=== PATIENT | female | born 1950 | race Caucasian/White ===

== ENCOUNTER 2023-06-08 10:10 | Outpatient (REF) | payer MEDICARE, OTHER, SELFPAY ==
[2023-06-08 11:12] LABS: Basophils Absolute Auto 0.1 10^3/uL (0.0-0.1); Basophils Percent Auto 0.6 % (0.2-2.0); Eosinophils Absolute Auto 0.1 10^3/uL (0.0-0.7); Eosinophils Percent Auto 1.4 % (0.9-7.0); Hematocrit 38.9 % (36.0-48.0); Hemoglobin 12.3 g/dL (12.0-16.0); Immature Granulocytes Abs Auto 0.06 10^3/uL (0.00-0.03); Immature Granulocytes Pct Auto 0.8 % (0.0-0.5); Lymphocytes Absolute Auto 1.6 10^3/uL (1.2-3.8); Lymphocytes Percent Auto 20.8 % (20.5-60.0); Mean Corpuscular HGB Conc 31.6 g/dL (29.9-35.2); Mean Corpuscular Hemoglobin 29.9 pg (26.7-34.0); Mean Corpuscular Volume 94.6 fL (81.0-99.0); Mean Platelet Volume 9.5 fL (9.5-13.5); Monocytes Absolute Auto 0.6 10^3/uL (0.3-0.8); Monocytes Percent Auto 7.1 % (1.7-12.0); Neutrophils Absolute Auto 5.4 10^3/uL (1.4-6.5); Neutrophils Percent Auto 69.3 % (43.0-75.0); Platelet Count 239 10^3/uL (150-450); Red Blood Count 4.11 10^6/uL (4.20-5.40); Red Cell Distribution Width 12.8 % (11.0-15.0); White Blood Count 7.7 10^3/uL (4.0-11.0)
[2023-06-08 11:49] LABS: Alanine Aminotransferase 26 U/L (14-59); Albumin Globulin Ratio 0.6; Albumin Level 2.7 g/dL (3.4-5.0); Alkaline Phosphatase 76 U/L (46-116); Anion Gap 14.3; Aspartate Amino Transferase 23 U/L (15-37); Bilirubin Direct 0.1 mg/dL (0.0-0.2); Bilirubin Total 0.6 mg/dL (0.2-1.0); Calcium 8.8 mg/dL (8.5-10.1); Carbon Dioxide 28.6 mmol/L (21.0-32.0); Chloride 106 mmol/L (98-107); Estimated GFR (African America 45 (>=60); Estimated GFR (Non-African Ame 37 (>=60); Globulin 4.3 g/dL; Glucose 198 mg/dL (74-106); Potassium 3.9 mmol/L (3.5-5.1); Sodium 145 mmol/L (136-145)
== END 2023-06-08 10:11 | disposition home or self-care (01) ==
LOC: LAB 10:10
PROVIDERS: PCP Family Medicine; Visit Provider Family Medicine
DX: N17.9 Acute kidney failure, unspecified (principal)
CPT/HCPCS: 36415; 80053; 82248; 85025; 87150

== ENCOUNTER 2024-02-25 22:00 | Observation (INO) | payer MEDICARE, OTHER, SELFPAY ==
[2024-02-25] VITALS (13 sets, daily range): BP systolic 158; BP diastolic 79; PULSE 87–94; TEMP 37.3; O2SAT 94–95; BMI 32.9
--- OUTSIDE RECORDS SUMMARY | 2024-02-25 22:08 | XMS_ITS ---
Patient Summarization (C-CDA 2.1 CCD) Created on: February 25, 2024 SHAHANA GRACE : 1950 Sex: Female Author Organization Sample organization Care Team Providers Care Chief Contract Officer Name Role Phone KANWAL MANN Unavailable Unavailable ALBERTINA ARNDT Unavailable Unavailable UNKNOWN, PROVIDER Unavailable Unavailable HAIR, ALBERTINA Unavailable Unavailable Hair, Albertina R Unavailable Unavailable Unavailable ANIVAL, DR STERLING Reyes Admitting Unavailmasood ARNDT, DR ENG Primary Care Unavailable ANIVAL, DR STERLING Reyes Attending Unavailmasood e ASIF .WENDY Attending Unavailable ASIF .WENDY Admitting Unavailable CARIN, DR FRANSISCA Mcdermott Consulting Unavailable HAIR, DR ENG Primary Care Unavailable WENDY DEL REAL Consulting Unavailable KANWAL THIBODEAUX Attending Unavailable KANWAL THIBODEAUX Admitting Unavailable HAIR, DR ENG Primary Care Unavailable KANWAL THIBODEAUX Consulting Unavailable ALBERTINA ARNDT Primary Care Physician [phone] Francie Mann Unavailable Unavailable Albertina Arndt Primary Care Provider Albertina Arndt Unavailable Albertina Arndt Primary Care Unavailable Anival, Dr. Sterling Oleary Attending Unava iljany Florian, Dr. Sterling Oleary Referring Unava ilAlbertina Case Primary Care Unavailable Anival, Dr. Sterling Oleary Attending Unava ilable Anival, Dr. Sterling Oleary Referring Unava ilSo Blankenship Attending Provider DO Albertina Arndt Primary Care Provider DO Albertina Arndt Attending Provider Albertina Arndt Primary Care Provider [phone] ALBERTINA ARNDT Primary Care Unavailable Francie Esteban Unavailable Unavailable Garrett Palmer Unavailable Albertina Arndt DO Primary Care Provider [phone] So Ram Attending Provider Hair DO Eng Primary Care Provider DO Tal Florian Attending Provider [phone] Hair Albertina Primary Care Unavailable Tal Florian Admitting Unavailable Tal Florian Attending Unavailable Hair, Albertina Primary Care Unavailable Albertina Arndt Attending Unavailable Hair, Albertina Admitting Unavailable DENT, Glynn R Admitting Unavailable DENT, Glynn R Attending Unavailable DENT, Glynn R Referring Unavailable COOK, Orestes P Attending Unavailable COOK, Orestes P Referring Unavailable COOK, Orestes P Admitting Unavailable COOK, Orestes P Admitting Unavailable COOK, Orestes P Attending Unavailable Lue, Wendy Bay Attending Unavailable Lue, Wendy Bay Attending Unavailable Lue, Wendy Bay Referring Unavailable COOK, Orestes P Attending Unavailable DENT, Glynn R Attending Unavailable COOK, Orestes P Attending Unavailable COOK, Orestes P Admitting Unavailable COOK, Orestes P Attending Unavailable COOK, Orestes P Admitting Unavailable Paola Woods Admitting Unavailable Jhonny Barrett Attending Unavailable Estela, Garrett S Consulting Unavailable Juan Palmer Garrett S Consulting Unavailable Blank, Garrett S Consulting Unavailable Blank, Garrett S Consulting Unavailable Blank, Garrett S Consulting Unavailable Blank, Garrett S Consulting Unavailable Blank, Garrett S Consulting Unavailable Blank, Garrett S Consulting Unavailable Blank, Garrett S Consulting Unavailable Blank, Garrett S Consulting Unavailable JEREMIAH Alajerod Admitting Unavailable Ck RILEY Attending Unavailable Rose Alvarado Attending Unavailable COOK, Orestes P Attending Unavailable COOK, Orestes P Referring Unavailable COOK, Orestes P Admitting Unavailable LEONEL Corona Attending Unavailab Glynn Wilson Admitting Unavailable Glynn ALARCON Attending Unavailable AGNES, Glynn Tipton Admitting Unavailable DENT, Glynn Mcdermott Consulting Unavailable MD Glynn DENT R Consulting Unavailable DNET, Glynn R Consulting Unavailable DENT, Glynn R Consulting Unavailable DENT, Glynn R Consulting Unavailable DENT, Glynn R Consulting Unavailable DENT, Glynn R Consulting Unavailable DENT, Glynn R Consulting Unavailable DENT, Glynn R Consulting Unavailable DENT, Glynn R Consulting Unavailable DENT, Glynn R Consulting Unavailable DENT, Glynn R Consulting Unavailable DENT, Glynn R Consulting Unavailable Glynn DENT Consulting Unavailable Backensto, Crystal L Unavailable Unavailable Glynn ALARCON Admitting Unavailable Jhonny Barrett Attending Unavailable MD Glynn DENT Consulting Unavailable Glynn DENT Attending Unavailable Allergies Allergy Classification Reported Allergen(s) Allergy Type Date of Onset Reaction(s) Facility (20 sources) Aspirin; Translations: [aspirin] Drug Allergy 3 Eye swelling (finding), Anaphylaxis -[facility] [place] 600 DO Work Phone: Comment on above: pt states she is abl e to take 81 mg of aspirin with aspirin allergy (1 source) Aspirin Drug Allergy [facility] Repository (4 sources) No Latwex Allergy [Other] Propensity to adverse reactions 3 [facility] (9 sources) Aspirin Drug Allergy swollen throat [employer] [facility] [employer] Other (1 source) OTHER; Translations: [OTHER] Propensity to adverse reactions (disorder) 3 [facility] Other [place] Repository (1 source) Aspirin Drug Allergy 1 [facility] Repository Encounters Encounter Date Encounter Type Care Provider Facility Start: 03-13-2024 ambulatory Glynn Atwood ty:CD:[id number] Start: 02-19-2024 End: 02-23-2024 Evaluation and management of inpatient [place]Neris Corona [place] [place] Start: 02-19-2024 Emergency department patient visit Rose Alvarado [place] [place] Start: 02-19-2024 End: 02-23-2024 Evaluation and management of inpatient Glynn ALARCON [facility] Start: 08-19-2023 ambulatory Wendy Gold Facility:[facility] Start: 08-05-2023 End: 08-05-2023 Admission to same day surgery center Orestes JACQUES [facility] Start: 08-05-2023 End: 08-05-2023 ambulatory Orestes JACQUES [place] [place] Start: 08-04-2023 End: 08-04-2023 ambulatory Albertinamal Arndt Facility:[facility] Start: 08-04-2023 End: 08-04-2023 ambulatory DO Albertinamal Lindquists Work Phone: [facility] Work Phone: Start: 08-04-2023 End: 08-04-2023 Patient encounter procedure DO Albertina Arndt Work Phone: [facility] [place] Work Phone: Start: 07-28-2023 End: 07-28-2023 Office outpatient visit 15 minutes Sterling Florian DO Work Phone: [facility] Comment on above: 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; S/P CABG x 4; Type 2 diabetes mellitus with other specified complication, with long-term current use of insulin ([facility]); Mixed hyperlipidemia; Primary hypertension; History of PA (myocardial infarction) Start: 07-23-2023 End: 07-23-2023 ambulatory Orestes Mary Kay JACQUES [place] [place] Start: 07-23-2023 End: 07-23-2023 Patient encounter procedure Orestes Mary Kay JACQUES [facility] Start: 07-15-2023 End: 07-15-2023 ambulatory Orestes Mary Kay GEORGIE Facility:CD:[id number] Start: 07-02-2023 End: 07-02-2023 ambulatory Orestes JACQUES [place] [place] Start: 06-30-2023 Telephone encounter Albertina Hair [facility] [place] Start: 06-30-2023 End: 06-30-2023 ambulatory Orestes JACQUES [employer] Other Start: 06-30-2023 End: 06-30-2023 Patient encounter procedure Orestes Mary Kay JACQUES [facility] Start: 06-21-2023 End: 06-21-2023 ambulatory Garrett Palmer Other [employer] [facility] [employer] Other Start: 06-21-2023 Telephone encounter Garrett Palmer [facility] Start: 06-10-2023 End: 06-10-2023 ambulatory Orestes JACQUES [place] [place] Start: 06-10-2023 End: 06-10-2023 Patient encounter procedure Orestes Mary Kay JACQUES [facility] Start: 06-08-2023 End: 06-08-2023 ambulatory Albertina Arndt Other [employer] Other Start: 06-08-2023 Telephone encounter Albertina Arndt [facility] Start: 05-27-2023 End: 06-02-2023 Evaluation and management of inpatient Paola Woods [place] [place] Start: 05-26-2023 End: 06-02-2023 [facility] Start: 05-25-2023 End: 05-25-2023 ambulatory Glynn DENT [place] [place] Start: 05-25-2023 End: 05-25-2023 Patient encounter procedure Glynn DENT [facility] Start: 05-24-2023 ambulatory Wendy Gold Facility:[facility] Start: 05-17-2023 Telephone encounter Albertina Arndt [facility] Start: 05-17-2023 End: 05-17-2023 ambulatory Glynn DENT [facility] [employer] Other Start: 05-17-2023 End: 05-17-2023 Patient encounter procedure Glynn DENT [facility] Start: 05-09-2023 End: 05-11-2023 ambulatory Margareth DANIELS [place] [place] Start: 05-09-2023 End: 05-11-2023 Observation Margareth DANIELS [facility] Start: 03-29-2023 Documentation procedure Mammog elvia Coordinator [facility] Start: 03-29-2023 Letter encounter Mammography Coordinator [facility] Start: 03-26-2023 End: 03-26-2023 ambulatory ALBERTINA ARNDT [facility] Other Start: 03-26-2023 Telephone encounter Albertina Arndt [facility] Start: 03-26-2023 End: 03-26-2023 Subsequent hospital visit by physician Screen/Diag Mammo [facility] 3 Work Phone: [facility]amm[facility] Comment on above: Z12.31 ENCOUNTER SCR EENING MAMMOGRAM FOR BREAST CANCER Start: 11-24-2022 Telephone encounter Albertina Arndt [facility] Start: 11-24-2022 End: 11-24-2022 ambulatory DO Albertina Lindquisteric Work Phone: [facility] Work Phone: Start: 11-24-2022 End: 11-24-2022 Patient encounter procedure DO Albertinamal Arndt Work Phone: [facility] [place] Work Phone: Start: 11-17-2022 End: 11-17-2022 Patient encounter procedure Wendy Gold [facility] Start: 11-13-2022 End: 11-14-2022 Emergency department patient visit Blaire Myers [facility] Start: 10-29-2022 End: 10-29-2022 Patient encounter procedure Wendy Gold [facility] Start: 10-14-2022 End: 10-14-2022 Patient encounter procedure Wendy oGld [facility] Start: 08-19-2022 End: 08-19-2022 Patient encounter procedure Wendy Gold [facility] Start: 07-29-2022 Office outpatient vi sit 15 minutes [facility]ndt [facility] Work Phone: Start: 07-29-2022 ambulatory Albertina Arndt Facili ty: Start: 07-13-2022 End: 07-13-2022 Patient encounter procedure [facility] Start: 07-06-2022 End: 07-06-2022 Patient encounter procedure Orestes JAQCUES [facility] Start: 06-17-2022 End: 06-19-2022 Evaluation and management of inpatient Orestes JACQUES [facility] Start: 06-08-2022 End: 06-08-2022 Patient encounter procedure Wendy Gold [facility] Start: 04-02-2022 Rx Renewal [facility]ndt [facility] Work Phone: Start: 02-02-2022 End: 02-02-2022 Patient encounter procedure Feroz Cotton [facility] Start: 01-28-2022 Documentation procedure Mammog elvia Coordinator [facility] Start: 01-28-2022 Letter encounter Mammography Coordinator [facility] Start: 01-28-2022 End: 01-28-2022 Subsequent hospital visit by physician Screen Mammo [facility] Mamm[facility] Start: 12-26-2021 Rx Renewal Albertina [facility]ndt [facility] DO Work Phone: Start: 12-17-2021 End: 12-17-2021 ambulatory Albertina Arndt Other [facility] [employer] Other Start: 12-17-2021 Telephone encounter Albertina Arndt [facility] [place] Start: 12-10-2021 End: 12-10-2021 Patient encounter procedure Feorz GreeneSharyn Cotton [facility] Start: 11-26-2021 End: 11-26-2021 Patient encounter procedure Wendy Gold [facility] Start: 11-24-2021 End: 11-24-2021 Patient encounter procedure Feroz GreeneSharyn Cotton [facility] Start: 11-17-2021 End: 11-17-2021 Patient encounter procedure Wendy Gold [facility] Start: 10-15-2021 Telephone encounter Albertina talbert Work Phone: [facility] 250 DO Work Phone: Start: 10-07-2021 End: 10-08-2021 ambulatory WENDY GOLD . Facility: Start: 10-06-2021 End: 10-06-2021 ambulatory Albertina Arndt Other [facility] [employer] Other Start: 10-06-2021 Telephone encounter Alberitna PELAYO [facility] [place] Start: 09-19-2021 ambulatory Albertina Arndt Facili ty: Start: 09-08-2021 Rx Renewal Albertina Lindquists Work Phone: [facility] 250 DO Work Phone: Start: 08-20-2021 End: 08-21-2021 ambulatory KANWAL THIBODEAUX Facility:H1 Start: 08-08-[address] STERLING FLORIAN Fa cility:[facility]1 Start: 07-22-2021 EPV, Provider: Kanwal Shah, Status: Pen, Time: 12:30 PM Albertina Lindquists Work Phone: [facility] 250 DO Work Phone: Start: 07-22-2021 Office outpatient vi sit 15 minutes Albertina R Kuns Work Phone: [facility] 600 DO Work Phone: Start: 07-21-2021 Chart Update Albertina R Kuns Work Phone: [facility] 250 DO Work Phone: Start: 07-16-2021 NURSEVST, Provider: SILVIANO HOUSTON RN [facility] 1,[id number], Status: Pen, Time: 1:30 PM Albertina R Kuns Work Phone: [facility] 250 DO Work Phone: Start: 07-14-2021 Chart Update Albertina R Kuns Work Phone: [facility] 250 DO Work Phone: Start: 07-10-2021 Office outpatient vi sit 25 minutes Albertina R Kuns Work Phone: [facility] 250 DO Work Phone: Start: 07-10-2021 Patient encounter procedure Albertina Arndt Work Phone: -[facility] 600 DO Work Phone: Start: 06-12-2021 Telephone encounter Albertina Arndt [facility] [place] Start: 07-07-2017 Ambulatory PROVIDER UNKNOWN Facili ty:[id number] Start: 04-22-2017 Ambulatory KANWAL MANN Facility: [id number] Start: 01-01-2004 Evaluation and manag ement of inpatient DO Albertina Arndt Work Phone: [facility] Work Phone: Medical Equipment Procedure Code Equipment Code Equipment Origin al Text Equipment Identifier Dates FDA Start: 10-01-2021 {[id number] FDA Start: 10-21-2021 FDA Start: 10-01-2021 FDA Start: 10-01-2021 FDA Start: 10-01-2021 FDA Start: 10-01-2021 CYSTOSCOPY RETROGRADE STENT INSERTION Unknown 10/01/21 Unknown Unknown FDA Start: 10-01-2021 CYSTOSCOPY RETROGRADE STENT INSERTION Unknown 10/01/21 Unknown Unknown FDA Start: 10-01-2021 CYSTOSCOPY RETROGRADE STENT INSERTION Orestes JACQUES MD 06/17/22 Unknown Ureter R FDA Start: 06-17-2022 CYSTOSCOPY RETROGRADE STENT INSERTION Unknown 10/01/21 Unknown Unknown FDA Start: 10-01-2021 CYSTOSCOPY RETROGRADE STENT INSERTION Orestes JACQUES MD 06/17/22 Unknown Ureter R FDA Start: 06-17-2022 CYSTOSCOPY RETROGRADE STENT INSERTION Unknown 10/01/21 Unknown Unknown FDA Start: 10-01-2021 CYSTOSCOPY RETROGRADE STENT INSERTION Orestes JACQUES MD 06/17/22 Unknown Ureter R FDA Start: 06-17-2022 CYSTOSCOPY RETROGRADE STENT INSERTION Unknown 10/01/21 Unknown Unknown FDA Start: 10-01-2021 CYSTOSCOPY RETROGRADE STENT INSERTION Orestes JACQUES MD 06/17/22 Unknown Ureter R FDA Start: 06-17-2022 CYSTOSCOPY RETROGRADE STENT INSERTION Unknown 10/01/21 Unknown Unknown FDA Start: 10-01-2021 CYSTOSCOPY RETROGRADE STENT INSERTION Orestes JACQUES MD 06/17/22 Unknown Ureter R FDA Start: 06-17-2022 CYSTOSCOPY RETROGRADE STENT INSERTION Unknown 10/01/21 Unknown Unknown FDA Start: 10-01-2021 CYSTOSCOPY RETROGRADE STENT INSERTION Orestes JACQUES MD 06/17/22 Unknown Ureter R FDA Start: 06-17-2022 CYSTOSCOPY RETROGRADE STENT INSERTION Unknown 10/01/21 Unknown Unknown FDA Start: 10-01-2021 CYSTOSCOPY RETROGRADE STENT INSERTION Orestes JCAQUES MD 06/17/22 Unknown Ureter R FDA Start: 06-17-2022 CYSTOSCOPY RETROGRADE STENT INSERTION Unknown 10/01/21 Unknown Unknown FDA Start: 10-01-2021 CYSTOSCOPY RETROGRADE STENT INSERTION Orestes JACQUES MD 06/17/22 Unknown Ureter R FDA Start: 06-17-2022 CYSTOSCOPY RETROGRADE STENT INSERTION Unknown 10/01/21 Unknown Unknown FDA Start: 10-01-2021 CYSTOSCOPY RETROGRADE STENT INSERTION Orestes JACQUES MD 06/17/22 Unknown Ureter R FDA Start: 06-17-2022 {[id number] FDA Start: 05-09-2023 End: 05-27-2023 CYSTOSCOPY RETROGRADE STENT INSERTION Unknown 10/01/21 Unknown Unknown FDA Start: 10-01-2021 CYSTOSCOPY RETROGRADE STENT INSERTION Orestes JACQUES MD 06/17/22 Unknown Ureter R FDA Start: 06-17-2022 CYSTOSCOPY RETROGRADE STENT INSERTION Unknown 10/01/21 Unknown Unknown FDA Start: 10-01-2021 CYSTOSCOPY RETROGRADE STENT INSERTION Orestes JACQUES MD 06/17/22 Unknown Ureter R FDA Start: 06-17-2022 CYSTOSCOPY RETROGRADE STENT INSERTION Unknown 10/01/21 Unknown Unknown FDA Start: 10-01-2021 CYSTOSCOPY RETROGRADE STENT INSERTION Orestes JACQUES MD 06/17/22 Unknown Ureter R FDA Start: 06-17-2022 CYSTOSCOPY RETROGRADE STENT INSERTION Unknown 10/01/21 Unknown Unknown FDA Start: 10-01-2021 CYSTOSCOPY RETROGRADE STENT INSERTION Orestes JACQUES MD 06/17/22 Unknown Ureter R FDA Start: 06-17-2022 CYSTOSCOPY RETROGRADE STENT INSERTION Unknown 10/01/21 Unknown Unknown FDA Start: 10-01-2021 CYSTOSCOPY RETROGRADE STENT INSERTION Orestes JACQUES MD 06/17/22 Unknown Ureter R FDA Start: 06-17-2022 CYSTOSCOPY RETROGRADE STENT INSERTION Unknown 10/01/21 Unknown Unknown FDA Start: 10-01-2021 CYSTOSCOPY RETROGRADE STENT INSERTION Orestes JACQUES MD 06/17/22 Unknown Ureter R FDA Start: 06-17-2022 CYSTOSCOPY RETROGRADE STENT INSERTION Unknown 10/01/21 Unknown Unknown FDA Start: 10-01-2021 CYSTOSCOPY RETROGRADE STENT INSERTION Orestes JACQUES MD 06/17/22 Unknown Ureter R FDA Start: 06-17-2022 CYSTOSCOPY RETROGRADE STENT INSERTION Unknown 10/01/21 Unknown Unknown FDA Start: 10-01-2021 CYSTOSCOPY RETROGRADE STENT INSERTION Orestes JACQUES MD 06/17/22 Unknown Ureter R FDA Start: 06-17-2022 CYSTOSCOPY STENT INSERTION Glynn DENT MD 02/20/24 Unknown Ureter R FDA Start: 02-20-2024 Immunizations Immunization Date Immunization Notes Care Provider Fa cility 11-13-2022 tetanus toxoid, redu lakshmi diphtheria toxoid, and acellular pertussis vaccine, adsorbed Blaire Brownen [facility] Comment on above: Result Comment: LEFT DELTOID 09-25-2021 SARS-CoV-2 (COVID-19 ) mRNA-1273 vaccine Wendy Gold [facility] 05-07-2021 pneumococcal conjuga te vaccine, 13 valent Albertina Kuns Other [facility] 11-28-2020 COVID-19 Moderna Albertina Kuns Other [facility] Comment on above: Result Comment: 2021: [id number] 10-31-2020 COVID-19 Moderna Albertina Kuns Other [facility] Comment on above: Result Comment: 2021: [id number] 12-05-2018 zoster vaccine recombinant Albertina Kuns Other [facility] 12-05-2018 zoster vaccine, unspecified formulation Sterling Florian DO Work Phone: [facility] Work Phone: 08-08-2018 zoster vaccine recombinant Albertina Arndt Other [facility] 08-08-2018 zoster vaccine, unspecified formulation Sterling Florian DO Work Phone: [facility] Work Phone: 08-30-2003 influenza virus vaccine, unspecified formulation Albertina Arndt Work Phone: [place] [address] DO Work Phone: Medications Current Medications Medication Drug Class(es) Dates Sig (Normalized) Sig (Original) atorvastatin 40 mg oral tablet (20 sources) HMG-CoA Reductase Inhibitor Start: 11-26-2021 atorvastatin Oral, Refills(s) 0 Start Date: 11/26/21 Status: Ordered Start: 07-22-2021 End: 07-27-2024 take 1 tablet by mouth once daily atorvastatin 40 mg Tab 40 mg = 1 tab(s), Oral, Daily, Refills(s) 0 Start Date: 06/17/22 Status: Ordered Start: 10-29-2018 take 1 tablet by luba th once daily at bedtime atorvastatin (LIPITOR) 80 mg tablet Take 80 mg by mouth daily at bedtime. 0 10/29/2018 Active Comment on above: Take 80 mg by mouth daily at bedtime. cephalexin 500 mg oral capsule (4 sources) Cephalosporin Antibacterial Start: 05-11-2023 End: 05-16-2023 take 1 capsule by mouth three times daily Keflex 500 mg Cap 500 mg = 1 cap(s), Oral, TID, X 5 day(s), # 15 cap(s), Refills(s) 0, [facility]acy: [id number], 158, cm, 05/09/23 8:54:00 EDT, Height/Length Dosing, 90.4, kg, 05/09/23 8:54:00 EDT, Weight Dosing Start Date: 05/11/23 Stop Date: 05/16/23 Status: Ordered Start: 11-14-2022 End: 11-19-2022 take 1 capsule by mouth three times daily Keflex 500 mg Cap 500 mg = 1 cap(s), Oral, TID, X 5 day(s), # 15 cap(s), Refills(s) 0, [facility]acy: [id number], 157, cm, 11/13/22 23:40:00 EDT, Height/Length Dosing, 83.2, kg, 11/13/22 23:40:00 EDT, Weight Dosing Start Date: 11/14/22 Stop Date: 11/19/22 Status: Ordered Start: 10-22-2021 take 1 capsule by mo [facility] once daily Keflex 500 mg Cap 500 mg = 1 cap(s), Oral, q12hr, take 1 cap the evening prior to scheduled procedure, take 2nd capsule the day of scheduled procedure, # 2 cap(s), Refills(s) 0, Pharmacy: [facility]/pharmacy #[id number], 161.9, cm, 10/21/21 6:32:00 EST, Height/Length Dosing, 80.5,... Start Date: 10/22/21 Status: Ordered ciprofloxacin 500 mg oral tablet (5 sources) Quinolone Antimicrobial Start: 02-23-2024 End: 03-01-2024 take 1 tablet by mouth twice daily Cipro 500 mg Tab 500 mg = 1 tab(s), Oral, BID, X 7 day(s), # 14 tab(s), Refills(s) 0, Pharmacy: [id number], 160.5, cm, 02/19/24 13:38:00 EDT, Height/Length Dosing, 84.3, kg, 02/19/24 13:38:00 EDT, Weight Dosing Start Date: 02/23/24 Stop Date: 03/01/24 Status: Ordered Start: 08-05-2023 take 1 tablet by [facility] twice daily Cipro 500 mg Tab 500 mg = 1 tab(s), Oral, BID, # 10 tab(s), Refills(s) 0, Pharmacy: [id number], 160.5, cm, 08/05/23 13:21:00 EST, Height/Length Dosing, 83, kg, 08/05/23 13:21:00 EST, Weight Dosing Start Date: 08/05/23 Status: Ordered Start: 07-02-2022 Cipro 500 mg T ab See Instructions, Take 1 tab day prior to procedure and 1 tab day of procdure - afterwards, # 2 tab(s), Refills(s) 0, Pharmacy: [facility]/pharmacy #[id number], 163, cm, 07/02/22 9:34:00 EDT, Height/Length Dosing, 85, kg, 06/17/22 13:37:00 EDT, Weight Dosing Start Date: 07/02/22 Status: Ordered Start: 10-17-2021 take 1 tablet by luba th every twenty-four hours ciprofloxacin 500 mg Tab 500 mg = 1 tab(s), Oral, q24hr, Refills(s) 0, Infection or prophylaxis for antibiotics Start Date: 10/17/21 Status: Ordered clopidogrel 75 mg oral tablet (20 sources) [id number] Platelet Inhibitor Start: 04-16-2022 End: 07-27-2024 Plavix 75 mg Tab See Instructions, Wednesday-, Refills(s) 0, Blood Thinner Start Date: 06/17/22 Status: Ordered Start: 06-12-2021 Plavix 75 mg T ab See Instructions, Wednesday-Wednesday, Refills(s) 0 Start Date: 06/17/22 Status: Ordered take 1 tablet by luba th every week Plavix 75 MG 1 tablet Orally 5 days per week Active Comment on above: Take by mouth. estradiol 0.1 mg/ml vaginal cream (3 sources) Estrogen Start: 02-09-20 estradiol 0.1 mg/g Vag Crm See Instructions, 42.5 gm, Refill(s) 1, Apply pea-sized amount to urethra/vaginal 3x/week at night for 1 month, then 2x/week thereafter, [facility], 158, cm, 02/08/23 12:39:00 EDT, Height/Length Dosing, 82, kg, 02/08/23 12:39:00 EDT, Weight Dosing Start Date: 02/08/23 Status: Ordered 100 ml fluconazole 2 mg/ml injection (2 sources) Azole Antifungal Start: 06-02-20 End: 06-23-20 take 200 mg intravenously once daily fluconazole 200 mg/100 mL-NS IVPB 200 mg = 100 mL, IV Piggyback, Daily, X 21 day(s), # 21 EA, Refills(s) 0 Start Date: 06/02/23 Stop Date: 06/23/23 Status: Ordered glipiZIDE 5 mg oral tablet (7 sources) Sulfonylurea Start: 06-19-20 End: 07-28-20 take 1 tablet by mouth once daily glipiZIDE 5 mg Tab 5 mg = 1 tab(s), Oral, Daily, # 30 tab(s), Refills(s) 0, Pharmacy: [facility]/pharmacy #[id number], 157, cm, 06/17/22 13:37:00 EDT, Height/Length Dosing, 85, kg, 06/17/22 13:37:00 EDT, Weight Dosing Start Date: 06/19/22 Status: Ordered insulin aspart, human 100 unt/ml injectable solution (1 source) Insulin Analog End: 07-28-20 insulin aspart (NovoLOG U-100 Insulin aspart) 100 unit/mL injection Inject under the skin 3 times a day before meals. Take as directed per insulin instructions. 0 07/28/2023 Discontinued (Entered in Error) 3 ml insulin glargine 100 unt/ml pen injector (10 sources) Insulin Analog Start: 05-09-20 Basaglar KwikPen 100 units/mL subcutaneous solution 40 unit(s), SubCutaneous, qAM, Refills(s) 0, Blood glucose Start Date: 05/09/23 Status: Ordered Start: 05-09-2023 Basaglar KwikP en 100 units/mL subcutaneous solution Refills(s) 0 Start Date: 05/09/23 Status: Ordered insulin glargine (Basaglar KwikPen U-100 Insulin) 100 unit/mL (3 mL) pen Inject 40 Units under the skin once daily at bedtime. Take as directed per insulin instructions. 0 Active lisinopril 5 mg oral tablet (20 sources) Angiotensin Converting Enzyme Inhibitor Start: 07-28-2023 End: 07-27-2024 take 1 tablet by mouth twice daily lisinopril 5 mg tablet Indications: Primary hypertension Take 1 tablet (5 mg) by mouth 2 times a day. 180 tablet 3 07/28/2023 07/27/2024 Active Start: 05-11-2023 End: 05-11-2023 lisinopril 5 mg Tab 5 mg = 1 tab(s), Tab, Oral, Start date 05/11/23 9:00:00 EDT, 05/10/23 11:11:00 EDT Start Date: 05/11/23 Stop Date: 05/11/23 Status: Completed Start: 06-12-2021 End: 07-28-2023 take 1 tablet by mouth twice daily lisinopril 5 mg Tab 5 mg = 1 tab(s), Oral, BID, # 120 tab(s), Refills(s) 0, Pharmacy: [facility]/pharmacy #[id number], 157.5, cm, 06/10/21 10:56:00 EDT, Height/Length Dosing, 79.4, kg, 06/10/21 10:56:00 EDT, Weight Dosing Start Date: 06/12/21 Status: Ordered Start: 11-28-2018 lisinopril 2.5 mg tablet Liver panel (6 sources) Start: 06-09-2023 Liver panel Li rivka panel, Print Requisition, Supply Start Date: 06/09/23 Status: Ordered meclizine hydrochloride 12.5 mg oral tablet (11 sources) Antiemetic Start: 11-14-2022 take 1 tablet by mouth three times daily as needed for dizziness meclizine 12.5 mg Tab 12.5 mg = 1 tab(s), Oral, TID, PRN for dizziness, # 15 tab(s), Refills(s) 0, Pharmacy: [facility] #72, 157, cm, 11/13/22 23:40:00 EDT, Height/Length Dosing, 83.2, kg, 11/13/22 23:40:00 EDT, Weight Dosing Start Date: 11/14/22 Status: Ordered metFORMIN hydrochloride 500 mg oral tablet (20 sources) Biguanide Start: 10-29-2022 take 1 tablet by mouth twice daily metformin 500 mg Tab 500 mg = 1 tab(s), Oral, BID, Blood glucose Start Date: 10/29/22 Status: Ordered Start: 10-01-2021 take 2 tablets by mo uth twice daily metformin 500 mg ER Tab 1,000 mg = 2 tab(s), Oral, BID, High blood sugar Start Date: 2/2/22 Status: Ordered Start: 10-29-2018 take 1 tablet by ulba twice daily metFORMIN (GLUCOPHAGE) 1,000 mg tablet Take 1,000 mg by mouth twice daily. 0 10/29/2018 Active Comment on above: Take 1,000 mg by luba twice daily. 24 hr mirabegron 25 mg extended release oral tablet (3 sources) beta3-Adrenergic Agonist Start: 02-09-20 23 take 1 tablet by mouth once daily Myrbetriq 25 mg oral tablet, extended release 25 mg = 1 tab(s), Oral, Daily, # 30 tab(s), Refills(s) 6, Pharmacy: [facility], 158, cm, 02/08/23 12:39:00 EDT, Height/Length Dosing, 82, kg, 02/08/23 12:39:00 EDT, Weight Dosing Start Date: 02/08/23 Status: Ordered NIFEdipine 30 mg oral tablet (1 source) Dihydropyridine Calcium Channel Lesly Start: 02-23-20 take 2 tablets by mouth once daily NIFEdipine 30 mg ER Tab 60 mg = 2 tab(s), Oral, Daily, # 60 tab(s), Refills(s) 5, Pharmacy: [facility], 160.5, cm, 02/19/24 13:38:00 EDT, Height/Length Dosing, 84.3, kg, 02/19/24 13:38:00 EDT, Weight Dosing Start Date: 02/23/24 Status: Ordered nitrofurantoin, macrocrystals 25 mg / nitrofurantoin, monohydrate 75 mg oral capsule (6 sources) Nitrofuran Antibacterial Start: 11-27-19 take 1 capsule by mouth every twelve hours Macrobid 100 MG 1 capsule with food Orally BID for 10 days Oct, Active oxybutynin chloride 5 mg oral tablet (6 sources) Cholinergic Muscarinic Antagonist Start: 06-17-20 End: 08-16-20 take 1 tablet by mouth twice daily oxybutynin 5 mg Tab 5 mg = 1 tab(s), Oral, BID, X 30 day(s), # 60 tab(s), Refills(s) 1, Pharmacy: [facility]/pharmacy #[id number], 157, cm, 06/17/22 13:37:00 EDT, Height/Length Dosing, 85, kg, 10/19/22 13:37:00 EDT, Weight Dosing Start Date: 06/17/22 Stop Date: 08/16/22 Status: Ordered take 1 tablet by mouth twice jane ly Oxybutynin Chloride ER 5 MG Oral Tablet Extended Release 24 Hour Take 1 tablet twice daily Quantity: 0 Refills: 0 Ordered: 09-Oct-2021 DO Active potassium bicarbonate 25 meq effervescent oral tablet (11 sources) Start: 02-08-2023 Klor-Con/EF 25 mEq oral tablet, effervescent 25 mEq = 1 tab(s), Oral, Daily, dissolve in 4 ounces of water, # 30 tab(s), Refills(s) 10, Pharmacy: [facility], 158, cm, 02/08/23 12:39:00 EDT, Height/Length Dosing, 82, kg, 02/08/23 12:39:00 EDT, Weight Dosing Start Date: 02/08/23 Status: Ordered Start: 10-30-2022 End: 01-28-2023 take 1 tablet by mouth twice daily Effer-K 20 mEq oral tablet, effervescent 20 mEq = 1 tab(s), Oral, BID, X 30 day(s), # 60 tab(s), Refills(s) 2, Pharmacy: [facility], 163, cm, 07/13/22 13:17:00 EST, Height/Length Dosing, 82, kg, 07/13/22 13:17:00 EST, Weight Dosing Start Date: 10/30/22 Stop Date: 01/28/23 Status: Ordered potassium citrate 10 meq extended release oral tablet (2 sources) Start: 08-19-2022 potassium CITRATE 10 mEq ER Tab 10 mEq, 1 tab(s), Oral, BID, 90 tab(s), Refill(s) 6, [facility]/pharmacy #[id number], 163, cm, 07/13/22 13:17:00 EST, Height/Length Dosing, 82, kg, 07/13/22 13:17:00 EST, Weight Dosing Start Date: 08/19/22 Status: Ordered 1 mg dose 1.5 ml semaglutide 1.34 mg/ml pen injector (11 sources) Start: 10-08-2021 inject 1 mg by subcutaneous injection every week Ozempic 2 mg/1.5 mL (1 mg dose) subcutaneous solution 1 mg, SubCutaneous, qWeek, Refill(s) 0, High blood sugar Start Date: 10/08/21 Status: Ordered solifenacin succinate 10 mg oral tablet (13 sources) Cholinergic Muscarinic Antagonist Start: 05-09-2023 take 1 tablet by mouth once daily Vesicare 10 mg Tab 10 mg = 1 tab(s), Oral, Daily, # 14 tab(s), Refills(s) 0, Pharmacy: [id number], 158, cm, 05/09/23 8:54:00 EDT, Height/Length Dosing, 90.4, kg, 05/09/23 8:54:00 EDT, Weight Dosing Start Date: 05/09/23 Status: Ordered Start: 06-17-2022 take 1 tablet by luba once daily solifenacin 5 mg Tab 5 mg = 1 tab(s), Oral, Daily, Refills(s) 0 Start Date: 06/17/22 Status: Ordered Start: 10-08-2021 take 1 tablet by luba once daily Vesicare 5 mg Tab 5 mg = 1 tab(s), Oral, Daily, # 30 tab(s), Refills(s) 11, Pharmacy: [facility]/pharmacy #[id number], 157.5, cm, 10/01/21 9:21:00 EST, Height/Length Dosing, 82, kg, 10/08/21 8:27:00 EST, Weight Dosing Start Date: 10/08/21 Status: Ordered Completed/Discontinued Medications Medication Drug Class(es) Dates Sig (Normalized) Sig (Original) acetaminophen 325 mg oral tablet (11 sources) take 2 tablets by mouth every six hours as needed acetaminophen (TYLENOL) 325 mg tablet Take 650 mg by mouth every 6 hours as needed for Pain. 0 Active take 1-2 tablets by mouth every six hours as needed Tylenol 325 MG Oral Tablet TAKE 1 TO 2 TABLETS EVERY 6 HOURS NEEDED. Quantity: 0 Refills: 0 Ordered: 04-Jun-2017 DO Active Comment on above: Take 650 mg by mouth every 6 hours as needed for Pain. acetaminophen 325 mg / HYDROcodone bitartrate 5 mg oral tablet (4 sources) Opioid Agonist take 1 tablet by mouth every four to six hours as needed for pain HYDROcodone-Acetami nophen 5-325 MG Oral Tablet TAKE 1 TABLET EVERY 4 TO 6 HOURS NEEDED FOR PAIN. Quantity: 0 Refills: 0 Ordered: 09-Oct-2021 DO Active CENTRUM TABLET (4 sources) Start: 003 CENTRUM TABLET clotrimazole 10 mg/ml topical cream (4 sources) Azole Antifungal Start: 016 clotrimazole (LOTRIMIN, CLOTRIM) 1 % cream Indications: Tinea cruris Apply 1 application to affected area twice daily. 15 g 0 04/02/2016 Active Comment on above: Apply 1 application to affected area twice daily. furosemide 40 mg oral tablet (18 sources) Loop Diuretic Start: furosemide (LASIX) 40 mg tablet Take by mouth. 0 06/12/2021 Active Comment on above: Take by mouth. heparin flush 100 units/mL Soln 10 mL (2 sources) Start: End: take 10 mL intravenously every twelve hours heparin flush 100 units/mL Soln 10 mL 300 unit(s), IV, q12hr for 21 day(s), 10 mL, Refill(s) 0, With intermittent or nonuse Start Date: 06/02/23 Stop Date: 06/23/23 Status: Ordered Insulin Lispro (11 sources) Insulin Analog Start: End: Insulin Lispro Sliding Scale 0-10 unit(s), Injection-Insulin, SubCutaneous, Start date 02/22/24 4:30:00 PM EDT Start Date: 02/22/24 Stop Date: 02/22/24 Status: Completed Start: 02-22-2024 End: 02-22-2024 Insulin Lispro Sliding Scale 0-10 unit(s), Injection-Insulin, SubCutaneous, Start date 02/22/24 11:30:00 AM EDT Start Date: 02/22/24 Stop Date: 02/22/24 Status: Completed Start: 02-22-2024 End: 02-22-2024 Insulin Lispro Sliding Scale 0-10 unit(s), Injection-Insulin, SubCutaneous, Start date 02/22/24 7:30:00 AM EDT Start Date: 02/22/24 Stop Date: 02/22/24 Status: Completed Start: 05-30-2023 End: 05-30-2023 Insulin Lispro Sliding Scale 0-10 Unit(s), Injection-Insulin, SubCutaneous, Start date 05/30/23 4:30:00 PM EDT Start Date: 05/30/23 Stop Date: 05/30/23 Status: Completed Start: 05-30-2023 End: 05-30-2023 Insulin Lispro Sliding Scale 0-10 Unit(s), Injection-Insulin, SubCutaneous, Start date 05/30/23 11:30:00 AM EDT Start Date: 05/30/23 Stop Date: 05/30/23 Status: Completed Start: 05-11-2023 End: 05-11-2023 Insulin Lispro Sliding Scale 0-10 Unit(s), Injection-Insulin, SubCutaneous, Start date 05/11/23 7:30:00 EDT Start Date: 05/11/23 Stop Date: 05/11/23 Status: Completed Start: 05-10-2023 End: 05-10-2023 Insulin Lispro Sliding Scale 0-10 Unit(s), Injection-Insulin, SubCutaneous, Start date 05/10/23 11:30:00 EDT Start Date: 05/10/23 Stop Date: 05/10/23 Status: Completed Start: 05-10-2023 End: 05-10-2023 Insulin Lispro Sliding Scale 0-10 Unit(s), Injection-Insulin, SubCutaneous, Start date 05/10/23 7:30:00 EDT Start Date: 05/10/23 Stop Date: 05/10/23 Status: Completed Start: 06-19-2022 End: 06-19-2022 Insulin Lispro Sliding Scale 0-10 Units, Injection-Insulin, SubCutaneous, Start date 06/19/22 7:30:00 EDT Start Date: 06/19/22 Stop Date: 06/19/22 Status: Completed Start: 06-18-2022 End: 06-18-2022 Insulin Lispro Sliding Scale 0-10 Units, Injection-Insulin, SubCutaneous, Start date 06/18/22 21:00:00 EDT Start Date: 06/18/22 Stop Date: 06/18/22 Status: Completed Start: 06-18-2022 End: 06-18-2022 Insulin Lispro Sliding Scale 0-10 Units, Injection-Insulin, SubCutaneous, Start date 06/18/22 11:30:00 EDT Start Date: 06/18/22 Stop Date: 06/18/22 Status: Completed liraglutide (20 sources) GLP-1 Receptor Agonist Victoza 1 8 MG/3ML as directed Subcutaneous qhs Active liraglutide (OUMOU TOZA 3-LISA SUBCUTANEOUS) Inject subcutaneously. 0 Active Victoza 18 MG/3M L Subcutaneous Solution INJECT SUBCUTANEOUSLY DIRECTED. Quantity: 0 Refills: 0 Ordered: 10-Jul-2021 DO Active Comment on above: Inject subcutaneousl y. metoprolol tartrate 50 mg oral tablet (20 sources) beta-Adrenergic Lesly Start: 02-22-2024 End: 02-22-2024 Metoprolol tartrate 50 mg Tab 50 mg = 1 tab(s), Tab, Oral, Start date 02/22/24 9:00:00 PM EDT, 02/19/24 21:43:00 EDT Start Date: 02/22/24 Stop Date: 02/22/24 Status: Completed Start: 06-02-2023 End: 06-02-2023 Metoprolol tartrate 50 mg Ta b 50 mg = 1 tab(s), Tab, Oral, Start date 06/02/23 9:00:00 AM EDT, 05/27/23 11:22:00 EDT Start Date: 06/02/23 Stop Date: 06/02/23 Status: Completed Start: 06-01-2023 End: 06-01-2023 Metoprolol tartrate 50 mg Ta b 50 mg = 1 tab(s), Tab, Oral, Start date 06/01/23 9:00:00 PM EDT, 05/27/23 11:22:00 EDT Start Date: 06/01/23 Stop Date: 06/01/23 Status: Completed Start: 06-01-2023 End: 06-01-2023 Metoprolol tartrate 50 mg Ta b 50 mg = 1 tab(s), Tab, Oral, Start date 06/01/23 9:00:00 AM EDT, 05/27/23 11:22:00 EDT Start Date: 06/01/23 Stop Date: 06/01/23 Status: Completed Start: 05-11-2023 End: 09-12-2023 Metoprolol tartrate 50 mg Ta b 50 mg = 1 tab(s), Tab, Oral, Start date 05/11/23 9:00:00 EDT, 05/09/23 17:58:00 EDT Start Date: 05/11/23 Stop Date: 05/11/23 Status: Completed Start: 05-10-2023 End: 05-10-2023 Metoprolol tartrate 50 mg Ta b 50 mg = 1 tab(s), Tab, Oral, Start date 05/10/23 21:00:00 EDT, 05/09/23 17:58:00 EDT Start Date: 05/10/23 Stop Date: 05/10/23 Status: Completed Start: 05-10-2023 End: 05-10-2023 Metoprolol tartrate 50 mg Ta b 50 mg = 1 tab(s), Tab, Oral, Start date 05/10/23 9:00:00 EDT, 05/09/23 17:58:00 EDT Start Date: 05/10/23 Stop Date: 05/10/23 Status: Completed Start: 06-12-2021 End: 06-19-2022 take 1 tablet by mouth twice daily Metoprolol tartrate 50 mg Tab 50 mg = 1 tab(s), Oral, BID, # 120 tab(s), Refills(s) 0, Pharmacy: [facility]/pharmacy #[id number], 157.5, cm, 06/10/21 10:56:00 EDT, Height/Length Dosing, 79.4, kg, 06/10/21 10:56:00 EDT, Weight Dosing Start Date: 06/12/21 Status: Ordered Start: 10-05-2018 End: 07-27-2024 take 1 tablet by mouth every twelve hours metoprolol tartrate (Lopressor) 50 mg tablet Indications: Primary hypertension Take 1 tablet by mouth every 12 hours. 180 tablet 3 07/28/2023 07/27/2024 Active take 1 tablet by luba th every twelve hours Metoprolol Tartrate 50 MG Oral Tablet TAKE 1 TABLET Every twelve hours Quantity: 0 Refills: 0 Ordered: 04-Jun-2017 DO Active Comment on above: Take 50 mg by mouth q 12 HR. Multivitamin Adult - (9 sources) Multivitamin Rudolph lt - Orally Not-Taking nitroglycerin 0.4 mg sublingual tablet (13 sources) Nitrate Vasodilator nitroglyceri n sublingual (NITROQUICK) 0.4 mg SL tablet Dissolve under the tongue. 0 Active Nitrostat 0.4 MG 1 tab under the tongue Q 5 min prn Sublingual as directed Active Comment on above: Dissolve under the t ongue. NS Flush 10 mL (6 sources) Start: 06-01-2023 NS Flush 10 mL See Instructions, 60 EA, Refill(s) 0, 10 mL IV Pushprior to and after administration of fluconazole and as needed Start Date: 06/01/23 Status: Ordered potassium chloride 20 meq extended release oral tablet (18 sources) Start: 06-12-2021 potassium chloride 20 mEq TbER take 1 tablet by luba every twenty-four hours Klor-Con M20 20 MEQ 1 tablet with food Orally Once a day Active potassium citrate compoundin g powder (4 sources) Start: 02-08-2023 End: 06-08-2023 potassium citrate compoundin g powder 30 mEq, Oral, BID, 30mEq potassium citrate powder orally BID, Dissolve in 8 oz water, X 30 day(s), # 60 EA, Refills(s) 3, Pharmacy: [facility], 158, cm, 02/08/23 12:39:00 EDT, Height/Length Dosing, 82, kg, 02/08/23 12:39:00 EDT, Weight Dosing Start Date: 02/08/23 Stop Date: 06/08/23 Status: Ordered Start: 02-08-2023 End: 06-08-2023 potassium citrate compoundin g powder 30 mEq, Oral, BID, 30mEq potassium citrate powder orally BID, Dissolve in 8 oz water, X 30 day(s), # 60 EA, Refills(s) 3, Pharmacy: [facility], 158, cm, 02/08/23 12:39:00 EDT, Height/Length Dosing, 82, kg, 02/08/23 12:39:00 EDT, Weigh... Start Date: 02/08/23 Stop Date: 06/08/23 Status: Ordered Start: 10-29-2022 potassium citr ate compounding powder See Instructions, 15mEq twice a day, dissolve with water/juice, take with food or after meal, # 60 packet(s), Refills(s) 6, Pharmacy: [facility] #[facility], 163, cm, 07/13/22 13:17:00 EST, Height/Length Dosing, 82, kg, 07/13/22 13:17:00 EST, Bella... Start Date: 10/29/22 Status: Ordered Payers Date Payer Category Payer Unknown 2019 Unknown MMO MMO MEDICARE SUPPLEMENT [id number] 2019-Present [phone] [address] [place] [address] Indemnity [id number] 2016 Medicare MEDICARE RAILROA D MEDICARE RAILROAD PB ONLY [id number] 2016-Present [phone] [address] [address] [place] [address] Medicare [id number]. [id number] 2016 Medicare [id number]. [id number] 1959 Medicare [id number] 1959 Self-pay 1959 Unknown [id number] 1951 Unknown [id number] 2.16.840.1.952149.3.579.2.593 1951 Unknown [id number] 2.16.840.1.994909.3.579.2.593 1951 Unknown [id number] 2.16.840.1.146298.3.579.2.356 1951 Unknown [id number] 2.16.840.1.946700.3.579.2.356 1951 Unknown [id number] 2.16.840.1.340750.3.579.2.727 1951 Unknown [id number] 2.16.840.1.752471.3.579.2.727 1951 Unknown [id number] 2.16.840.1.780187.3.579.2. 1951 Unknown [id number] 2.16.840.1.853974.3.579.2. 1951 Unknown [id number] 2.16.840.1.957197.3.579.2. 1951 Unknown [id number] 2.16.840.1.546886.3.579.2. 1951 Unknown [id number] 2.16.840.1.216845.3.579.2 1951 Unknown [id number] 2.16.840.1.520266.3.579.2 1951 Unknown [id number] 2.16.840.1.739733.3.579.2 1951 Unknown [id number] 2.16.840.1.550246.3.579.2 1951 Unknown [id number] 2.16.840.1.183057.3.579.2 1951 Unknown [id number] 2.16.840.1.465045.3.579.2 1951 Unknown [id number] 2.16.840.1.837719.3.579.2 1951 Unknown [id number] 2.16.840.1.036459.3.579.2. 1951 Unknown [id number] 2.16.840.1.287528.3.579.2 1951 Unknown [id number] 2.16.840.1.734009.3.579.2 1951 Unknown [id number] 2.16.840.1.496045.3.579.2.727 1951 Unknown [id number] 2.16.840.1.874917.3.579.2.727 1951 Unknown [id number] 2.16.840.1.117091.3.579.2.727 1951 Unknown [id number] 2.16.840.1.376871.3.579.2.727 1950 Unknown [id number] 2.16.840.1.010416.3.579.2.727 Medicare [id number] Unknown [id number] 2.16.840.1.067828.3.579.2.[address] [facility] [id number] Unknown [id number] 2.16.840.1.773176.3.579.2.531 Unknown [id number] 2.16.840.1.592310.3.579.2.531 Plan of Treatment Date Care Activity Detail Author Start: 11-13-2032 DTaP/Tdap/Td Vaccines (2 - Td or Tdap) DTaP/Tdap/Td Vaccines (2 - Td or Tdap) [facility] Start: 04-07-2025 DIABETES SCREEN DIABETES SCREEN [facility] Start: 04-07-2025 Diabetes Screening Diabetes Screening [facility] Start: 03-26-2024 Mammography [facility] Start: 03-26-2024 Screening for malignant neoplasm of breast Mammogram [facility] Start: 07-28-2023 End: 07-28-2024 Alanine aminotransferase [Enzymatic activity/volume] in Serum or Plasma by With P-5'-P Alanine Aminotransferase Lab Routine Mixed hyperlipidemia Expected: 07/28/2023 (Approximate), Expires: 07/28/2024 [facility] Service Area Work Phone: Comment on above: Expected: 07/28/2023 (Approximate), Expi res: 07/28/2024 Start: 07-28-2023 End: 07-28-2024 Aspartate aminotransferase [Enzymatic activity/volume] in Serum or Plasma by With P-5'-P Aspartate Aminotransferase Lab Routine Mixed hyperlipidemia Expected: 07/28/2023 (Approximate), Expires: 07/28/2024 [facility] Work Phone: Comment on above: Expected: 07/28/2023 (Approximate), Expi res: 07/28/2024 Start: 07-28-2023 End: 07-28-2024 Lipid 1996 panel - Serum or Plasma Lipid Panel Lab Routine Mixed hyperlipidemia Expected: 07/28/2023 (Approximate), Expires: 07/28/2024 [facility] Work Phone: Comment on above: Expected: 07/28/2023 (Approximate), Expi res: 07/28/2024 Start: 07-28-2023 FUV, Provider: Sterling Florian, Status: Pen, Time: 10:40 AM FUV, Provider: Sterling Florian, Status: Pen, Time: 10:40 AM [facility] 250 DO Work Phone: Start: 04-30-2023 Covid-19 Vaccine ( season) Covid-19 Vaccine ( season) [facility] Start: 04-30-2023 Influenza vaccination [facility] Start: 01-28-2023 Mammography MAMMOGRAM [facility] Start: 11-24-2022 Bacteria identified in Urine by Culture Urine Culture [facility] Start: 08-30-2022 ADVANCE DIRECTIVE DISCUSSION ADVANCE DIRECTIVE DISCUSSION [facility] Start: 08-30-2022 DEPRESSION ASSESSMENT DEPRESSION ASSESSMENT [facility] Start: 08-09-2022 Glaucoma screening Diabetes: Retinopathy Screening [facility] Start: 06-11-[address] [facility] Start: 05-12-2022 FUV, Provider: Sterling Florian, Status: Pen, Time: 10:15 AM [facility]UV, Provider: Sterling Florian, Status: Pen, Time: 10:15 AM [facility] 600 DO Work Phone: Start: 04-30-2022 Influenza vaccination INFLUENZA (Season Ended) [facility] Start: 01-23-2022 COVID-19 VACCINE (4 - Booster for Moderna series) COVID-19 VACCINE (4 - Booster for Moderna series) [facility] Start: 11-20-2021 COVID-19 VACCINE (4 - Moderna series) COVID-19 VACCINE (4 - Moderna series) [facility] Start: 08-30-2021 ADVANCE DIRECTIVE DISCUSSION ADVANCE DIRECTIVE DISCUSSION [facility] Start: 07-22-2021 EPV, Provider: Kanwal Shah, Status: Pen, Time: 12:30 PM EPV, Provider: Kanwal Shah, Status: Pen, Time: 12:30 PM [facility] DO Work Phone: Start: 07-16-2021 NURSEVST, Provider: SILVIANO HOUSTON RN [facility] 1,[id number], Status: Pen, Time: 1:30 PM NURSEVST, Provider: SILVIANO HOUSTON RN [facility] 1,[id number], Status: Pen, Time: 1:30 PM [facility] 600 DO Work Phone: Start: 07-02-2021 Pneumococcal Vaccine: 65+ Years (2 - PPSV23 or PCV20) Pneumococcal Vaccine: 65+ Years (2 - PPSV23 or PCV20) [facility] Start: 02-12-2016 BONE DENSITY BONE DENSITY [facility] Start: 02-12-2016 Bone Density Screening Bone Density Screening [facility] Start: 02-12-2016 Pneumococcal Vaccine: 65+ (1 - PCV) Pneumococcal Vaccine: 65+ (1 - PCV) [facility] Start: 02-12-2016 PNEUMOCOCCAL: 65+ (1 - PCV) PNEUMOCOCCAL: 65+ (1 - PCV) [facility] Start: 08-14-2012 Colonoscopy COLONOSCOPY [facility] Start: 08-14-2012 COLORECTAL CANCER SCREENING COLORECTAL CANCER SCREENING [facility] Start: 12-14-2002 DIABETES SCREEN DIABETES SCREEN [facility] Start: 2001 SHINGRIX VACCINE (1 of 2) SHINGRIX VACCINE (1 of 2) [facility] Start: 2001 Zoster Vaccines (1 of 2) Zoster Vaccines (1 of 2) [facility] Start: 02-12-1996 COLOGUARD (FIT-DNA) COLOGUARD (FIT-DNA) [facility] Start: 02-12-[address] COLONOGRAPHY [facility] Start: 02-12-1996 FECAL OCCULT BLOOD FECAL OCCULT BLOOD [facility] Start: 02-12-1996 Lipid 1996 panel - Serum or Plasma Lipid Screening [facility] Start: 02-12-1996 LIPID SCREEN LIPID SCREEN [facility] Start: 02-12-1996 SIGMOIDOSCOPY SIGMOIDOSCOPY [facility] Start: 1970 Urine microalbumin profile [facility] Start: 1970 Urine screening for protein Diabetes: Urine Protein Screening [facility] Start: 1969 HEPATITIS C SCREENING HEPATITIS C SCREENING [facility] Start: 1969 Hepatitis C screening Hepatitis C Screening [facility] Start: 1963 Adult depression screening assessment DEPRESSION SCREENING [facility] Start: 1961 Diabetic foot examination Diabetes: Foot Exam [facility] Start: 1951 Creatinine measurement Creatinine Level [facility] Start: 1951 Hemoglobin A1c measurement Diabetes: Hemoglobin A1C [facility] Start: 1951 Lip[address] Lipid Panel [facility] Start: 1951 Medicare Annual Wellness Visit Medicare Annual Wellness Visit (AWV) [facility] Start: 1950 Potassium measurement Potassium Level [facility] Start: 1950 Screening for malignant neoplasm of colon [facility] Start: 1950 Screening for osteoporosis Bone Density Scan [facility] Start: 1950 Thyroid stimulating hormone measurement TSH Level 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] Onset: 2 Chronic Biliary tract disease (1 source) Cholelithiasis without obstruction; Translations: [Calculus of gallbladder without cholecystitis without obstruction] Onset: 4 Episodic Calculus of urinary tract (20 sources) Calculus of kidney; Translations: [Kidney stone] Onset: 2 Episodic Cardiac dysrhythmias (13 sources) Ventricular premature beats; Translations: [Other premature beats] Onset: 3 06-29-2023 Chronic Chronic kidney disease (1 source) Chronic kidney disease stage 3; Translations: [Chronic kidney disease, stage 3 unspecified] Onset: 3 Chronic Coagulation and hemorrhagic disorders (1 source) Thrombocytopenic disorder; Translations: [Thrombocytopenia, unspecified] Onset: 4 Chronic Complication of device; implant or graft (14 sources) Arteriosclerosis of coronary artery bypass graft; Translations: [Coronary atherosclerosis of unspecified bypass graft] Onset: 3 07-28-2023 Chronic Conditions associated with dizziness or vertigo (1 source) Benign paroxysmal positional vertigo; Translations: [Benign paroxysmal vertigo, unspecified ear] Onset: 3 Episodic Congestive heart failure; nonhypertensive (20 sources) Congestive heart failure; Translations: [Congestive heart failure, unspecified] Onset: 3 06-29-2023 Chronic Coronary atherosclerosis and other heart disease (20 sources) Atherosclerotic heart disease of [place] coronary artery without angina pectoris; Translations: [Coronary arteriosclerosis] Onset: 7 Chronic Coronary atherosclerosis and other heart disease (9 sources) 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; Translations: [Presence of aortocoronary bypass graft] Episodic Coronary atherosclerosis and other heart disease (1 source) Coronary atherosclerosis and other heart disease Onset: 7 Deficiency and other anemia (13 sources) Anemia; Translations: [Anemia, unspecified] Onset: 3 06-29-2023 Episodic Diabetes mellitus with complications (2 sources) Type 2 diabetes mellitus; Translations: [Type 2 diabetes mellitus with other specified complication] Onset: 4 07-28-2023 Chronic Diabetes mellitus without complication (20 sources) Diabetes mellitus; Translations: [Diabetes mellitus without mention of complication, type II or unspecified type, not stated as uncontrolled] Onset: 2 10-01-2021 Chronic Diabetes mellitus without complication (9 sources) Glycosuria 02-08-2023 Episodic Diabetes mellitus without complication (1 source) Diabetes mellitus without complication Onset: 7 Diseases of white blood cells (2 sources) Leukocytosis; Translations: [Elevated white blood cell count, unspecified] Onset: 2 Chronic Disorders of lipid metabolism (20 sources) Hyperlipidemia; Translations: [Other and unspecified hyperlipidemia] Onset: 2 Chronic Essential hypertension (20 sources) Hypertensive disorder; Translations: [Unspecified essential hypertension] Onset: 2 10-01-2021 Chronic Essential hypertension (1 source) Essential hypertension Onset: 7 Fluid and electrolyte disorders (20 sources) Hypovolemia; Translations: [Volume depletion, unspecified] Onset: 1 Resolved: 2 Episodic Genitourinary symptoms and ill-defined conditions (9 sources) Urge incontinence of urine 02-08-2023 Chronic Hypertension with complications and secondary hypertension (1 source) Hypertensive urgency ; Translations: [Hypertensive urgency] Onset: 4 Chronic Mycoses (1 source) Mycosis; Translations: [Unspecified mycosis] Onset: 3 Episodic Nausea and vomiting (1 source) Nausea and vomiting; Translations: [Nausea with vomiting, unspecified] Onset: 4 Episodic Other aftercare (20 sources) Long-term current use of anticoagulant; Translations: [care home (current) use of anticoagulants] Onset: 2 10-08-2021 Episodic Other aftercare (1 source) Long-term current use of drug therapy; Translations: [Other penitentiary (current) drug therapy] Onset: 3 Episodic Other connective tissue disease (12 sources) Muscle weakness of limb; Translations: [Other musculoskeletal symptoms referable to limbs] Episodic Other connective tissue disease (1 source) Other symptoms and signs involving the musculoskeletal system; Translations: [Other musculoskeletal symptoms referable to limbs] Onset: 3 06-29-2023 Episodic Other diseases of bladder and urethra (14 sources) Spasm of bladder 10-08-2021 Chronic Other diseases of bladder and urethra (4 sources) Disorder of bladder; Translations: [Other specified disorders of bladder] Onset: 2 Chronic Other diseases of kidney and ureters (1 source) Hydroureter; Translations: [Hydroureter] Onset: 3 Episodic Other diseases of kidney and ureters (1 source) Hydronephrosis; Translations: [Unspecified hydronephrosis] Onset: 3 Episodic Other diseases of kidney and ureters (1 source) Urinary tract obstruction; Translations: [Hydronephrosis with renal and ureteral calculous obstruction] Onset: 4 Episodic Other gastrointestinal disorders (1 source) Constipation, unspecified; Translations: [Constipation, unspecified] Onset: 3 Episodic Other hematologic conditions (1 source) Abnormal finding on evaluation procedure; Translations: [Other specified abnormalities of plasma proteins] Onset: 4 Episodic Other injuries and conditions due to external causes (1 source) Injury of head; Translations: [Unspecified injury of head, initial encounter] Onset: 3 Episodic Other nutritional; endocrine; and metabolic disorders (20 sources) Obesity; Translations: [Obesity, unspecified] Onset: 2 Chronic Other nutritional; endocrine; and metabolic disorders (5 sources) Body mass index 30+ - obesity; Translations: [Body Mass Index 36.0-36.9, adult] Chronic Other nutritional; endocrine; and metabolic disorders (9 sources) Obese class I; Translations: [Obesity, unspecified] Chronic Other nutritional; endocrine; and metabolic disorders (10 sources) Obesity caused by energy imbalance; Translations: [Other obesity due to excess calories] Onset: 3 05-10-2023 Chronic Other screening for suspected conditions (not mental disorders or infectious disease) (2 sources) Encounter for screening mammogram for malignant neoplasm of breast Onset: 2 Resolved: 2 Episodic Other skin disorders (9 sources) Other seborrheic keratosis; Translations: [Seborrheic keratosis] Episodic Other upper respiratory infections (18 sources) Pain in throat; Translations: [Acute pharyngitis, unspecified] Episodic Residual codes; unclassified (2 sources) Procedure carried out on subject; Translations: [Encounter for prophylactic measures, unspecified] Onset: 2 Episodic Residual codes; unclassified (1 source) Patient encounter status; Translations: [Other specified health status] Onset: 3 Episodic Superficial injury; contusion (1 source) Abrasion of scalp; Translations: [Abrasion of scalp, initial encounter] Onset: 3 Episodic Thyroid disorders (20 sources) Hypothyroidism; Translations: [Unspecified acquired hypothyroidism] Onset: 3 06-29-2023 Chronic Unclassified (1 source) Ischemic cardiomyopathy / I25.5(ICD-9) Onset: 7 Unclassified (1 source) Old myocardial infarction / I25.2(ICD-9) Onset: 7 Unclassified (2 sources) Athscl heart disease of [place] coronary artery w/o ang pctrs / I25.10(ICD-9) Onset: 7 Unclassified (1 source) Obesity, unspecified / E66.9(ICD-9) Onset: 7 Unclassified (1 source) Body mass index (BMI) 19.9 or less, adult / Z68.1(ICD-9) Onset: 7 Unclassified (1 source) Coronary angioplasty status / Z98.61(ICD-9) Onset: 7 Unclassified (1 source) Presence of aortocoronary bypass graft / Z95.1(ICD-9) Onset: 7 Urinary tract infections (20 sources) Urinary tract infectious disease; Translations: [Urinary tract infection, site not specified] Onset: 2 Episodic Urinary tract infections (1 source) Urinary tract infections; Translations: [Urinary tract infection, site not specified] Onset: 3 Past or Other Problems Problem Classification Problem Date Documented Date Episodic/Chronic Genitourinary symptoms and ill-defined conditions (13 sources) Increased frequency of urination; Translations: [Frequency of micturition] Onset: 11-24-2022 Resolved: 07-29-2022 Episodic Other nervous system disorders (12 sources) Postoperative pain ; Translations: [Other acute postoperative pain] Resolved: 07-29-2022 Episodic Unclassified (12 sources) Never smoked tobacco; Translations: [Never a smoker] Unclassified (1 source) Onset: 07-28-2023 07-28-2023 Procedures Date Procedure Procedure Detail Performing Clinician Start: 07-27-2023 History of coronary artery bypass grafting S/P CABG x 4 Sterling Florian DO Work Phone: Start: 06-29-2023 History of percutane ous transluminal coronary angioplasty History of PTCA Sterling Florian DO Work Phone: Start: 05-27-2023 Cystoscopy Paola Linden kothari Start: 03-26-2023 End: 03-26-2023 Mammography Albertina Arndt Work Phone: Start: 06-17-2022 Cystoscopy Orestes ANTOLIN CABRERA Start: 01-28-2022 End: 01-28-2022 Mammography [facility] Provider Start: 10-27-2021 Cystoscopic removal of ureteric stent Wendy Lue Start: 10-22-2021 Coil embolization of portal-systemic shunt Feroz Cotton Comment on above: Splenic Artery Start: 10-22-2021 Fluoroscopic angiogr aphy of splenic artery Wendy Lue Comment on above: Coililng of Splenic artery aneurysm Start: 10-21-2021 Cystoscopic laser lithotripsy of ureteric calculus Wendy Lue Start: 10-21-2021 Cystoscopy Wendy Lue Comment on above: Homium Laser, left s tent replacement, cystoscopy,, ureteroscopy, stone basket extraction Start: 10-01-2021 Cystoscopy Wendy Lue Start: 10-01-2021 Fluoroscopy guided retrograde cystogram and replacement of ureteric stent Wendy Lue Start: 08-14-2011 Colonoscopy Mammograph y Coordinator Appendectomy Albertina Arndt Work Phone: Appendectomy Wendy Lue CABG Albertina Arndt Work Phone: Cath Atherectomy 1 W ith Stent Placement Albertina Arndt Work Phone: section Albertina reyes Work Phone: Comment on above: x2; section Wendy Lue Colonoscopy Albertina R Lanes Work Phone: Comment on above: [id number] C linlizz; Coronary artery bypa ss graft operation planned Wendy Gold History of coronary artery bypass grafting S/P CABG x 4 Albertina R Kuns Work Phone: History of coronary artery bypass grafting S/P CABG x 4 Sterling Florian DO Work Phone: History of percutane ous transluminal coronary angioplasty History of PTCA Albertina R Lanes Work Phone: Lithotripsy Albertina R Kuns Work Phone: Screening for malign ant neoplasm of breast Albertina Kuns Other Screening for malign ant neoplasm of breast Albertina Kuns Other Transurethral cystoscopy Joao dave JACQUES Comment on above: With left stent satish terrell, ureteroscopy, laser stone basket Results Test Name Value Interpretation Reference Range Facil ity CBC w/ Auto DiffOrdered By: Awilda Pritchard on 02-23-2024 Basophils/100 WBC (Bld) 0.3 % Normal 0.0-2.0 Remisol Heme Comment on above: Performed By: #### 2 [id number] #### [facility] [address] [place] [address] Basophils/Leukocytes Auto (Bld) [Pure # fraction] 0.0 E9/L Normal 0.0-0.2 Remisol Heme Comment on above: Performed By: #### 2 [id number] #### [facility] [address] [place] [address] Eosinophils (Bld) [#/Vol] 0.1 E9/L Normal 0.0-0.5 Remisol Heme Comment on above: Performed By: #### 2 [id number] #### [facility] [address] [place] [address] Eosinophils/100 WBC (Bld) 1.6 % Normal 0.0-8.0 Remisol Heme Comment on above: Performed By: #### 2 [id number] #### [facility] [address] [place] [address] Erythrocyte distribution width (RBC) [Ratio] 13.9 % Normal 10.9-14.2 Remisol Heme Comment on above: Performed By: #### 2 [id number] #### [facility] [address] [place] [address] Hematocrit (Bld) [Volume fraction] 38.6 % Normal 34.0-46.0 Remisol Heme Comment on above: Performed By: #### 2 [id number] #### [facility] [address] [place] [address] Hemoglobin (Bld) [Mass/Vol] 13.2 g/dL Normal 12.0-16.0 Remisol Heme Comment on above: Performed By: #### 2 [id number] #### [place] [address] [place] [address] Lymphocytes (Bld) [#/Vol] 0.7 E9/L Low 1.0-4.0 Remisol Heme Comment on above: Performed By: #### 2 [id number] #### [facility] [address] [place] [address] Lymphocytes/100 WBC (Bld) 8.2 % Low 14.0-50.0 Remisol Heme Comment on above: Performed By: #### 2 [id number] #### [facility] [address] [place] [address] MCH (RBC) [Entitic mass] 31.4 pg Normal 27.0-34.0 Remisol Heme Comment on above: Performed By: #### 2 [id number] #### [facility] [address] [place] [address] MCHC (RBC) [Mass/Vol] 34.2 g/dL Normal 31.4-36.0 Remisol Heme Comment on above: Performed By: #### 2 [id number] #### [facility] [address] [place] [address] MCV (RBC) [Entitic vol] 92.0 fL Normal 80.0-100.0 Remisol Heme Comment on above: Performed By: #### 2 [id number] #### [facility] [address] [place] [address] Monocytes (Bld) [#/Vol] 0.6 E9/L Normal 0.2-1.0 Remisol Heme Comment on above: Performed By: #### 2 [id number] #### [facility] [address] [place] [address] Neutrophils (Bld) [#/Vol] 6.8 E9/L Normal 2.0-7.5 Remisol Heme Comment on above: Performed By: #### 2 [id number] #### [facility] [address] [place] [address] Neutrophils/100 WBC (Bld) 82.5 % High 36.0-75.0 Remisol Heme Comment on above: Performed By: #### 2 [id number] #### [facility] [address] [place] [address] Platelet 126.0 E9/L Low 150.0-500.0 Remisol Heme Comment on above: Performed By: #### 2 [id number] #### [facility] [address] [place] [address] Platelet mean volume (Bld) [Entitic vol] 8.0 fL Normal 6.4-10.8 Remisol Heme Comment on above: Performed By: #### 2 [id number] #### [facility] [address] [place] [address] RBC (Bld) [#/Vol] 4.2 E12/L Low 4.3-5.9 Remisol Heme Comment on above: Performed By: #### 2 [id number] #### [facility] [address] [place] [address] WBC corrected for nucl RBC Auto (Bld) [#/Vol] 8.3 E9/L Normal 4.0-11.0 Remisol Heme Comment on above: Performed By: #### 2 [id number] #### [facility] [address] [place] [address] CHEMISTRYOrdered By: Yohana Jones on 02-23-2024 Anion gap [Moles/Vol] 10 mmol/L Normal 6 - 16 mEq/L Remisol Chem Calcium [Mass/Vol] 7.5 mg/dL Low 8.9 - 11.1 mg/dL Remisol Chem Chloride [Moles/Vol] 120 mmol/L Invalid Interpretation Code 101 - 111 mmol/L Remisol Chem Comment on above: Result Comment: Crit ical Result Verified by Repeat Analysis Critical Result S_CL:120 Called to and read back by: MARY SPANGLER at: 02/23/2024 07:49:57 by:CMK CO2 [Moles/Vol] 19 mmol/L Low 21 - 31 mmol/L Remis ol Chem Creatinine [Mass/Vol] 1.2 mg/dL Normal 0.5 - 1.3 mg/dL Remisol Chem eGFR 48 mL/min/1.73 m2 Low >=59mL/min /1.73 m2 Remisol Chem Glucose [Mass/Vol] 187 mg/dL Normal 55 - 199 mg/dL Re misol Chem Potassium [Moles/Vol] 3.8 mmol/L Normal 3.5 - 5.3 mmol/L Remisol Chem Sodium [Moles/Vol] 145 mmol/L Normal 135 - 145 mmol/L Remisol Chem Urea nitrogen [Mass/Vol] 26 mg/dL High 5 - 21 mg/dL Remisol Chem Urea nitrogen/Creatinine [Mass ratio] 22 mg/mg High 10 - 20 Remisol Chem CHEMISTRYOrdered By: Andrea Richter on 02-23-2024 Glucose [Mass/Vol] 148 mg/dL High 55 - 99 mg/dL FT C POC Subsection Comment on above: Result Comment: Modesto vanegas RN/ POC Device SN [id number] Invalid Interpretation Code [facility] [place] Sub[place] POC Device SN [id number] Invalid Interpretation Code FT POC Subsection POC User ID [id number] 1 Invalid Interpretation Code FT POC Subsection POC User ID [id number] 1 Invalid Interpretation Code FT POC Subsection POC Username AISHA PAK Invalid Interpretation Code FT POC Subsection POC Username AISHA PAK Invalid Interpretation Code [facility] [place] Subsection Capillary Glucose POCOrdered By: Andrea Badillor on 02-23-2024 Glucose [Mass/Vol] 183 mg/dL High 55-99 [facility] [place] Subsection Comment on above: Result Comment: Modesto vanegas RN/ Performed By: #### 2 [id number] #### [facility] [address] [place] [address] Discharge Instructionson Discharge Instructions [id number] 1.00TIFF Normal [facility] Discharge Note-Nursingon Discharge Note-Nursing SHAHANA GRACE :1950 Visit Date:02/19/2024 Inpatient Discharge Instructions Your Care Team Admitting Physician - Glynn ALARCON DO Consulting Physician - Glynn DENT MD Reason for Your Visit Hyperglycemia Your Diagnosis Complicated urinary tract infection Acute kidney injury superimposed on chronic kidney disease Hydronephrosis with renal and ureteral calculus obstruction Hyperglycemia due to diabetes mellitus Abdominal pain Nausea and vomiting Hypertensive urgency Elevated troponin Coronary artery disease Thrombocytopenia Hyperlipidemia Gallstones Obesity Encounter for deep vein thrombosis (DVT) prophylaxis Hyperglycemia Nausea Polydipsia Tests Performed Calculi Analysis Urinary -- Results Pending -- Chest AP/Lat CT Abdomen/Pelvis w/o Contrast XR Urography Retrograde Bilateral Please visit your patient portal for your results or contact your primary care physician. This Is Your Medications List [facility] [place] [facility] [place] panel) NIFEdipine (NIFEdipine 30 mg ER Tab) atorvastatin (atorvastatin 40 mg Tab) ciprofloxacin (Cipro 500 mg Tab) clopidogrel (Plavix 75 mg Tab) insulin glargine (Basaglar KwikPen 100 units/mL subcutaneous solution) lisinopril (lisinopril 5 mg Tab) meclizine (meclizine 12.5 mg Tab) metformin (metformin 500 mg Tab) metoprolol (Metoprolol tartrate 50 mg Tab) potassium bicarbonate (Klor-Con/EF 25 mEq oral tablet, effervescent) sodium chloride (NS Flush 10 mL) solifenacin (Vesicare 10 mg Tab) Procedure History Cystoscopy (05/27/2023), Cystoscopy (06/17/2022), Cystoscopic removal of ureteric stent (10/27/2021), Coil embolization of portal-systemic shunt (10/22/2021), Fluoroscopic angiography of splenic artery with contrast (10/22/2021), Cystoscopic laser lithotripsy of ureteric calculus (10/21/2021), Retrograde cystogram and replacement of ureteric stent using fluoroscopic guidance (10/01/2021), Appendectomy, CABG (Coronary artery bypass grafting) planned, section, Cystoscopy. Discharge Vitals Temperature (Axillary) 36.6 ?C Heart Rate (Monitored) 61 Respiratory Rate 16 Blood Pressure 179/73 Weight 91.9 kg What to do next Instructions From Your Doctor Event Name Event Result Discharge Activity Ambulate as tolerated Discharge Restrictions No restrictions Discharge Diet(s) Calorie Controlled- 1800 Calorie Diet New Follow Up Appointments after Discharge Follow Up with Call Urology office for follow-up When: Comments: Doctor's office will call patient after discharge to talk about her surgery that is planned. Follow Up with ALBERTINA ARNDT When: Comments: Doctor's office will call patient for hosptial follow up appointment. Where: [address] [place], [place] [id number]- [facility] (1) Medications What How Much When Instructions Next Dose New NIFEdipine (NIFEdipine 30 mg ER Tab) 2 Tablets By Mouth Every day Refills: 5 Pickup at [id number] 02/23 @ 9 AM Unchanged atorvastatin (atorvastatin 40 mg Tab) 1 Tablets By Mouth Every day 02/23 @ 9 AM Unchanged ciprofloxacin (Cipro 500 mg Tab) 1 Tablets By Mouth 2 times a day 02/22 @ 9 PM Unchanged clopidogrel (Plavix 75 mg Tab) See instructions Wednesday-02/27 @ 9 AM Unchanged insulin glargine (Basaglar KwikPen 100 units/ mL subcutaneous solution) 40 Units Subcutaneous Once a day (in the morning) 02/23 @ 9 AM Unchanged lisinopril (lisinopril 5 mg Tab) 1 Tablets By Mouth 2 times a day 02/22 @ 9 PM Unchanged meclizine (meclizine 12.5 mg Tab) 1 Tablets By Mouth 3 times a day as needed for for dizziness NEEDED FOR DIZZINESS Unchanged metformin (metformin 500 mg Tab) 1 Tablets By Mouth 2 times a day 02/22 @ 5 PM Unchanged metoprolol (Metoprolol tartrate 50 mg Tab) 1 Tablets By Mouth 2 times a day 02/22 @ 9 PM Unchanged Misc Prescription (Liver panel) 0 N/A Unchanged potassium bicarbonate (Klor-Con/ EF 25 mEq oral tablet, effervescent) 1 Tablets By Mouth Every day dissolve in 4 ounces of water 02/23 @ 9 AM Unchanged sodium chloride (NS Flush 10 mL) See instructions 10 mL IV Pushprior to and after administration of fluconazole and as needed N/A Unchanged solifenacin (Vesicare 10 mg Tab) 1 Tablets By Mouth Every day 02/23 @ 9 AM Pharmacy Information [id number]: [address] [place], [place] [id number] [phone] Test Results CBC BMP WBC: 8.3 E9/L (02/23/24 05:26:00) Glucose Lvl: 187 mg/dL (02/23/24 05:26:00) RBC: 4.2 E12/L Low (02/23/24 05:26:00) BUN: 26 mg/dL High (02/23/24 05:26:00) HGB: 13.2 gm/dL (02/23/24 05:26:00) Creatinine: 1.2 mg/dL (02/23/24 05:26:00) Hct: 38.6 % (02/23/24 05:26:00) BUN/Creat Ratio: 22 High (02/23/24 05:26:00) MCV: 92 fL (02/23/24 05:26:00) Sodium Lvl: 145 mmol/L (02/23/24 05:26:00) MCH: 31.4 pg (02/23/24 05:26:00) Potassium Lvl: 3.8 mmol/L (02/23/24 05:26:00) MCHC: 34.2 gm/dL (02/23/24 05:26:00) Chlorid (more content not included)... Normal [facility] HEMATOLOGYOrdered By: Wendy Pritchard on 02-23-2024 Monocytes/100 WBC (Bld) 7.4 % Normal 4.0 - 14.0 % Remisol Heme Inpatient Clinical Summaryon 02-23-2024 Inpatient Clinical Summary [address], [place] [address] Clinical Summary Person Information: Name: SHAHANA GRACE Age: 74 Years : 1950 Sex: Female PCP: ALBERTINA ARNDT DO Marital Status: Race: White Ethnicity: Non- or Language: Citizen Of [place] Visit Id: Visit Reason: Polydipsia; Nausea; Hyperglycemia; hyperglycemia Speciality: Acuity: Enc Type: Inpatient Med Service: Medical Arrival: 02/19/2024 13:27:15 Discharge: Dispo Type: Admitted as IP to this Hosp Address: [address] [place] [id number] Provider Notes: Diagnosis: 1:Complicated urinary tract infection; 2:Acute kidney injury superimposed on chronic kidney disease; 3:Hydronephrosis with renal and ureteral calculus obstruction; 4:Hyperglycemia due to diabetes mellitus; 5:Abdominal pain; 6:Nausea and vomiting; 7:Hypertensive urgency; 8:Elevated troponin; 9:Coronary artery disease; 10:Thrombocytopenia; 11:Hyperlipidemia; 12:Gallstones; 13:Obesity; 14:Encounter for deep vein thrombosis (DVT) prophylaxis Problems Active Hyperlipidemia Obesity due to excess calories Coronary artery disease Urge incontinence Glucosuria Urinary tract 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 ciprofloxacin (Cipro 500 mg Tab) 1 Tablets By Mouth 2 times a day for 7 Days. Refills: 0. clopidogrel (Plavix 75 mg Tab) Wednesday-. insulin glargine (Basaglar KwikPen 100 units/mL subcutaneous solution) 40 Units Subcutaneous once a day (in the morning). lisinopril (lisinopril 5 mg Tab) 1 Tablets By Mouth 2 times a day. Refills: 0. meclizine (meclizine 12.5 mg Tab) 1 Tablets By Mouth 3 times a day as needed for dizziness. Refills: 0. metformin (metformin 500 mg Tab) 1 Tablets By Mouth 2 times a day. metoprolol (Metoprolol tartrate 50 mg Tab) 1 Tablets By Mouth 2 times a day. Refills: 0. Misc Prescription (Liver panel) 0. Refills: 0. NIFEdipine (NIFEdipine 30 mg ER Tab) 2 Tablets By Mouth every day. Refills: 5. potassium bicarbonate (Klor-Con/EF 25 mEq oral tablet, effervescent) 1 Tablets By Mouth every day. dissolve in 4 ounces of water. Refills: 10. sodium chloride (NS Flush 10 mL) 10 mL IV Pushprior to and after administration of fluconazole and as needed. Refills: 0. solifenacin (Vesicare 10 mg Tab) 1 Tablets By Mouth every day. Refills: 0. Care Team Members: Attending Physician: Glynn ALARCON DO Consulting Physician: Glynn DENT MD Referring Physician: Follow up: With: Address: When: Call Urology office for follow-up Comments: Doctor's office will call patient after discharge to talk about her surgery that is planned. With: Address: When: ALBERTINA ARNDT [address] [place] [address] Business (1) Comments: Doctor's office will call patient for hosptial follow up appointment. Patient Education Information: Diet - Basic Carbohydrate Counting (Custom) Normal [facility] Inpatient Patient Summaryon 02-23-2024 Inpatient Patient Summary [address] [address] Patient Discharge Instructions PERSON INFORMATION Name: SHAHANA GRACE Date of : 1950 Current Date: 02/23/2024 12:05:46 PHYSICIANS Admitting Physician: Glynn ALARCON DO Primary Care Physician: ALBERTINA ARNDT DO PCP Comment: Discharge Diagnosis: 1:Complicated urinary tract infection; 2:Acute kidney injury superimposed on chronic kidney disease; 3:Hydronephrosis with renal and ureteral calculus obstruction; 4:Hyperglycemia due to diabetes mellitus; 5:Abdominal pain; 6:Nausea and vomiting; 7:Hypertensive urgency; 8:Elevated troponin; 9:Coronary artery disease; 10:Thrombocytopenia; 11:Hyperlipidemia; 12:Gallstones; 13:Obesity; 14:Encounter for deep vein thrombosis (DVT) prophylaxis Condition at Discharge: Stable SHAHANA GRACE has been given the following list of follow-up instructions, prescriptions, and patient education materials: PATIENT FOLLOW-UP INFORMATION Diet: Calorie Controlled- 1800 Calorie Diet Discharge Activity: Ambulate as tolerated Discharge Restrictions: No restrictions Wound Care Instructions: Remove Your Dressing In Days Call Your Doctor For: IF UNABLE TO CONTACT YOUR PHYSICIAN AND YOU FEEL IT IS AN EMERGENCY, GO TO THE NEAREST EMERGENCY ROOM OR CALL 911 Home Treatment: Devices/Equipment: Walker Special Services: Additional Instructions: Primary Care Physician to provide the following pending test results: Follow up: With: Address: When: Call Urology office for follow-up Comments: Doctor's office will call patient after discharge to talk about her surgery that is planned. With: Address: When: ALBERTINAMAL [address] [address] Business (1) Comments: Doctor's office will call patient for hosptial follow up appointment. In the event that this physician does not participate in your insurance network, please consult with your insurance company to find a nearby participating provider. Comment: SANJAY Souza BARBARA J, have received the attached patient education materials/instruction s and have verbalized understanding: Patient Signature Date Clinican/Nurse Signature Date HERE ARE THE MEDICATION CHANGES THAT OCCURRED DURING YOUR HOSPITAL STAY New Medications [facility], [address] [place], [place] [id number], [phone] NIFEdipine (NIFEdipine 30 mg ER Tab) 2 Tablets By Mouth every day. Refills: 5. Last Dose: ____Next Dose: ____ Medications to Continue Taking That Have Changed [facility], [address], [place] [id number], [phone] START: ciprofloxacin (Cipro 500 mg Tab) 1 Tablets By Mouth 2 times a day for 7 Days. Refills: 0. Last Dose: ____Next Dose: ____ STOP: ciprofloxacin (Cipro 500 mg Tab) 1 Tablets By Mouth 2 times a day. Refills: 0. Medications to Continue with No Changes Other Medications atorvastatin (atorvastatin 40 mg Tab) 1 Tablets By Mouth every day. Last Dose: ____Next Dose: ____ clopidogrel (Plavix 75 mg Tab) Wednesday-. Last Dose: ____Next Dose: ____ insulin glargine (Basaglar KwikPen 100 units/mL subcutaneous solution) 40 Units Subcutaneous once a day (in the morning). Last Dose: ____Next Dose: ____ lisinopril (lisinopril 5 mg Tab) 1 Tablets By Mouth 2 times a day. Refills: 0. Last Dose: ____Next Dose: ____ meclizine (meclizine 12.5 mg Tab) 1 Tablets By Mouth 3 times a day as needed for dizziness. Refills: 0. Last Dose: ____Next Dose: ____ metformin (metformin 500 mg Tab) 1 Tablets By Mouth 2 times a day. Last Dose: ____Next Dose: ____ metoprolol (Metoprolol tartrate 50 mg Tab) 1 Tablets By Mouth 2 times a day. Refills: 0. Last Dose: ____Next Dose: ____ Misc Prescription (Liver panel) 0. Refills: 0. Last Dose: ____Next Dose: ____ potassium bicarbonate (Klor-Con/EF 25 mEq oral tablet, effervescent) 1 Tablets By Mouth every day. dissolve in 4 ounces of water. Refills: 10. Last Dose: ____Next Dose: ____ sodium chloride (NS Flush 10 mL) 10 mL IV Pushprior to and after administration of fluconazole and as needed. Refills: 0. Last Dose: ____Next Dose: ____ solifenacin (Vesicare 10 mg Tab) 1 Tablets By Mouth every day. Refills: 0. Last Dose: ____Next Dose: ____ Comment: MEDICATION LIST PROVIDED FOR YOU IS A LIST OF YOUR CURRENT MEDICATIONS. PLEASE CARRY THIS WITH YOU AT ALL TIMES (more content not included)... Normal [facility] IntraOperative Documentson 0 02-23-2024 IntraOperative Documents [id number]# 1.00TIFF Normal [facility] Monitor Recordon 02-23-2024 Monitor Record [id number]# 1.00TIFF Normal [facility] BMPon 02-22-2024 Anion gap [Moles/Vol] 10 mmol/L Normal 6-16 [facility] Comment on above: Performed By: #### 2 [id number] #### [facility] [address] [place] [address] Calcium [Mass/Vol] 7.3 mg/dL Low 8.9-11.1 [facility] Comment on above: Performed By: #### 2 [id number] #### [facility] [address] [place] [address] Chloride [Moles/Vol] 118 mmol/L High 101-111 [facility] Comment on above: Performed By: #### 2 [id number] #### [facility] [address] [place] [address] CO2 [Moles/Vol] 19 mmol/L Low 21-31 [facility] Comment on above: Performed By: #### 2 [id number] #### [facility] [address] [place] [address] Creatinine [Mass/Vol] 1.5 mg/dL High 0.5-1.3 [facility] Comment on above: Performed By: #### 2 [id number] #### [facility] [address] [place] [address] Glucose [Mass/Vol] 254 mg/dL High 55-199 [facility] Comment on above: Performed By: #### 2 [id number] #### [facility] [address] [place] [address] Potassium [Moles/Vol] 3.9 mmol/L Normal 3.5-5.3 [facility] Comment on above: Performed By: #### 2 [id number] #### [facility] [address] [place] [address] Sodium [Moles/Vol] 143 mmol/L Normal 135-145 [facility] Comment on above: Performed By: #### 2 [id number] #### [facility] [address] [place] [address] Urea nitrogen [Mass/Vol] 33 mg/dL High 5-21 [facility] Comment on above: Performed By: #### 2 [id number] #### [facility] [address] [place] [address] Urea nitrogen/Creatinine [Mass ratio] 22 No Units High 10-20 [facility] Comment on above: Performed By: #### 2 [id number] #### [facility] [address] [place] [address] CBC w/ Auto DiffOrdered By: SYSTEM SYSTEM on 02-22-2024 Basophils/100 WBC (Bld) 0.2 % Normal 0.0 - 2.0 % [facility] Comment on above: Performed By: #### 2 [id number] #### [facility] [address] [place] [address] Basophils/Leukocytes Auto (Bld) [Pure # fraction] 0.0 E9/L Normal 0.0 - 0.2 E9/L [facility] Comment on above: Performed By: #### 2 [id number] #### [facility] [address] [place] [address] Eosinophils (Bld) [#/Vol] 0.1 E9/L Normal 0.0 - 0.5 E9/L [facility] Comment on above: Performed By: #### 2 [id number] #### [facility] [address] [place] [address] Eosinophils/100 WBC (Bld) 1.5 % Normal 0.0 - 8.0 % [facility] Comment on above: Performed By: #### 2 [id number] #### [facility] [address] [place] [address] Erythrocyte distribution width (RBC) [Ratio] 13.9 % Normal 10.9 - 14.2 % [facility] Comment on above: Performed By: #### 2 843891 #### [facility] [address] [place] [address] Hematocrit (Bld) [Volume fraction] 39.5 % Normal 34.0 - 46.0 % [facility] Comment on above: Performed By: #### 2 356758 #### [facility] [address] [place] [address] Hemoglobin (Bld) [Mass/Vol] 13.1 g/dL Normal 12.0 - 16.0 gm/dL [facility] Comment on above: Performed By: #### 2 822539 #### [facility] [address] [place] [address] Lymphocytes (Bld) [#/Vol] 0.8 E9/L Low 1.0 - 4.0 E9/L [facility] Comment on above: Performed By: #### 2 [id number] #### [facility] [address] [place] [address] Lymphocytes/100 WBC (Bld) 9.5 % Low 14.0 - 50.0 % [facility] Comment on above: Performed By: #### 2 250426 #### [facility] [address] [place] [address] MCH (RBC) [Entitic mass] 30.8 pg Normal 27.0 - 34.0 pg [facility] Comment on above: Performed By: #### 2 177372 #### [facility] [address] [place] [address] MCHC (RBC) [Mass/Vol] 33.2 g/dL Normal 31.4 - 36.0 gm/dL [facility] Comment on above: Performed By: #### 2 979727 #### [facility] [address] [place] [address] MCV (RBC) [Entitic vol] 92.8 fL Normal 80.0 - 100.0 fL [facility] Comment on above: Performed By: #### 2 281798 #### [facility] [address] [place] [address] Monocytes (Bld) [#/Vol] 0.6 E9/L Normal 0.2 - 1.0 E9/L [facility] Comment on above: Performed By: #### 2 790801 #### [facility] [address] [place] [address] Neutrophils (Bld) [#/Vol] 7.3 E9/L Normal 2.0 - 7.5 E9/L [facility] Comment on above: Performed By: #### 2 958673 #### [facility] [address] [place] [address] Neutrophils/100 WBC (Bld) 81.8 % High 36.0 - 75.0 % [facility] Comment on above: Performed By: #### 2 587684 #### [facility] [address] [place] [address] Platelet mean volume (Bld) [Entitic vol] 8.5 fL Normal 6.4 - 10.8 fL [facility] Comment on above: Performed By: #### 2 [id number] #### [facility] [address] [place] [address] Platelets (Bld) [#/Vol] 122.0 E9/L Low 150.0 - 500.0 E9/L [facility] Comment on above: Performed By: #### 2 [id number] #### [facility] [address] [place] [address] RBC (Bld) [#/Vol] 4.3 E12/L Normal 4.3 - 5.9 E12/L [facility] Comment on above: Performed By: #### 2 [id number] #### [facility] [address] [place] [address] WBC corrected for nucl RBC Auto (Bld) [#/Vol] 8.9 E9/L Normal 4.0 - 11.0 E9/L [facility] Comment on above: Performed By: #### 2 [id number] #### [facility] [address] [place] [address] CHEMISTRYOrdered By: SYSTEM SYSTEM on 02-22-2024 Anion gap [Moles/Vol] 10 mmol/L Normal 6 - 16 mEq/L [facility] Calcium [Mass/Vol] 7.3 mg/dL Low 8.9 - 11.1 mg/dL [facility] Chloride [Moles/Vol] 118 mmol/L High 101 - 111 mmol/ L [facility] CO2 [Moles/Vol] 19 mmol/L Low 21 - 31 mmol/L [facility] Creatinine [Mass/Vol] 1.5 mg/dL High 0.5 - 1.3 mg/dL [facility] eGFR 37 mL/min/1.73 m2 Low >=59mL/min /1.73 m2 [facility] Glucose [Mass/Vol] 254 mg/dL High 55 - 199 mg/dL Re misol Chem Potassium [Moles/Vol] 3.9 mmol/L Normal 3.5 - 5.3 mmol/L [facility] Sodium [Moles/Vol] 143 mmol/L Normal 135 - 145 mmol/L [facility] Urea nitrogen [Mass/Vol] 33 mg/dL High 5 - 21 mg/dL [facility] Urea nitrogen/Creatinine [Mass ratio] 22 mg/mg High 10 - 20 [facility] CHEMISTRYOrdered By: Lab ROP User on 02-22-2024 POC Device SN [id number] 1 Invalid Interpretation Code [facility] [place] Subsection POC User ID [id number] 1 Invalid Interpretation Code [facility] [place] Subsection POC Username CAREY HATHAWAY Invalid Interpretation Code [facility] [place] Subsection Capillary Glucose POCon 01-29 Glucose [Mass/Vol] 212 mg/dL High 55-99 [facility] Comment on above: Result Comment: [place] ANDRES Performed By: #### 2 [id number] #### [facility] [address] [place] [address] Glucose [Mass/Vol] 303 mg/dL High 55-99 [facility] Comment on above: Result Comment: [place] ANDRES Performed By: #### 2 [id number] #### [facility] [address] [place] [address] Glucose [Mass/Vol] 306 mg/dL High 55-99 [facility] Comment on above: Result Comment: [place] ANDRES Performed By: #### 2 [id number] #### [facility] [address] [place] [address] Capillary Glucose POCOrdered By: Lab ROPUser on 02-22-2024 Glucose [Mass/Vol] 234 mg/dL High 55-99 [facility] [place] Subsection Comment on above: Result Comment: [place] vanegas RN/ Performed By: #### 2 [id number] #### [facility] [address] [place] [address] HEMATOLOGYOrdered By: SYSTEM SYSTEM on 02-22-2024 Monocytes/100 WBC (Bld) 7.0 % Normal 4.0 - 14.0 % [facility] Inpatient Clinical Summaryon 02-22-2024 Inpatient Clinical Summary [address] [address] Clinical Summary Person Information: Name: SHAHANA GRACE Age: 74 Years : 1950 Sex: Female PCP: ALBERTINA ARNDT DO Marital Status: Race: White Ethnicity: Non- or Language: Citizen Of [place] Visit Id: Visit Reason: Polydipsia; Nausea; Hyperglycemia; hyperglycemia Speciality: Acuity: Enc Type: Inpatient Med Service: Medical Arrival: 02/19/2024 13:27:15 Discharge: Dispo Type: Admitted as IP to this Hosp Address: [address] [place] [id number] Provider Notes: Diagnosis: 1:Complicated urinary tract infection; 2:Acute kidney injury superimposed on chronic kidney disease; 3:Hydronephrosis with renal and ureteral calculus obstruction; 4:Hyperglycemia due to diabetes mellitus; 5:Abdominal pain; 6:Nausea and vomiting; 7:Hypertensive urgency; 8:Elevated troponin; 9:Coronary artery disease; 10:Thrombocytopenia; 11:Hyperlipidemia; 12:Gallstones; 13:Obesity; 14:Encounter for deep vein thrombosis (DVT) prophylaxis Problems Active Hyperlipidemia Obesity due to excess calories Coronary artery disease Urge incontinence Glucosuria 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 ciprofloxacin (Cipro 500 mg Tab) 1 Tablets By Mouth 2 times a day. Refills: 0. clopidogrel (Plavix 75 mg Tab) Wednesday-. insulin glargine (Basaglar KwikPen 100 units/mL subcutaneous solution) 40 Units Subcutaneous once a day (in the morning). lisinopril (lisinopril 5 mg Tab) 1 Tablets By Mouth 2 times a day. Refills: 0. meclizine (meclizine 12.5 mg Tab) 1 Tablets By Mouth 3 times a day as needed for dizziness. Refills: 0. metformin (metformin 500 mg Tab) 1 Tablets By Mouth 2 times a day. metoprolol (Metoprolol tartrate 50 mg Tab) 1 Tablets By Mouth 2 times a day. Refills: 0. Misc Prescription (Liver panel) 0. Refills: 0. potassium bicarbonate (Klor-Con/EF 25 mEq oral tablet, effervescent) 1 Tablets By Mouth every day. dissolve in 4 ounces of water. Refills: 10. sodium chloride (NS Flush 10 mL) 10 mL IV Pushprior to and after administration of fluconazole and as needed. Refills: 0. solifenacin (Vesicare 10 mg Tab) 1 Tablets By Mouth every day. Refills: 0. Care Team Members: Attending Physician: Glynn ALARCON DO Consulting Physician: Glynn DENT MD Referring Physician: Follow up: Patient Education Information: Diet - Basic Carbohydrate Counting (Custom) Normal [facility] Inpatient Patient Summaryon 02-22-2024 Inpatient Patient Summary [address] [address] Patient Discharge Instructions PERSON INFORMATION Name: SHAHANA GRACE Date of : 1950 Current Date: 02/22/2024 08:54:41 PHYSICIANS Admitting Physician: Glynn ALARCON DO Primary Care Physician: ALBERTINA ARNDT DO PCP Comment: Discharge Diagnosis: 1:Complicated urinary tract infection; 2:Acute kidney injury superimposed on chronic kidney disease; 3:Hydronephrosis with renal and ureteral calculus obstruction; 4:Hyperglycemia due to diabetes mellitus; 5:Abdominal pain; 6:Nausea and vomiting; 7:Hypertensive urgency; 8:Elevated troponin; 9:Coronary artery disease; 10:Thrombocytopenia; 11:Hyperlipidemia; 12:Gallstones; 13:Obesity; 14:Encounter for deep vein thrombosis (DVT) prophylaxis Condition at Discharge: SHAHANA GRACE has been given the following list of follow-up instructions, prescriptions, and patient education materials: PATIENT FOLLOW-UP INFORMATION Diet: Discharge Activity: Discharge Restrictions: Wound Care Instructions: Remove Your Dressing In Days Call Your Doctor For: IF UNABLE TO CONTACT YOUR PHYSICIAN AND YOU FEEL IT IS AN EMERGENCY, GO TO THE NEAREST EMERGENCY ROOM OR CALL 911 Home Treatment: Devices/Equipment: Walker Special Services: Additional Instructions: Primary Care Physician to provide the following pending test results: Follow up: In the event that this physician does not participate in your insurance network, please consult with your insurance company to find a nearby participating provider. Comment: SANJAY Souza BARBARA J, have received the attached patient education materials/instruction s and have verbalized understanding: Patient Signature Date Clinican/Nurse Signature Date HERE ARE THE MEDICATION CHANGES THAT OCCURRED DURING YOUR HOSPITAL STAY Medications to Continue with No Changes Other Medications atorvastatin (atorvastatin 40 mg Tab) 1 Tablets By Mouth every day. Last Dose: ____Next Dose: ____ ciprofloxacin (Cipro 500 mg Tab) 1 Tablets By Mouth 2 times a day. Refills: 0. Last Dose: ____Next Dose: ____ clopidogrel (Plavix 75 mg Tab) Wednesday-. Last Dose: ____Next Dose: ____ insulin glargine (Basaglar KwikPen 100 units/mL subcutaneous solution) 40 Units Subcutaneous once a day (in the morning). Last Dose: ____Next Dose: ____ lisinopril (lisinopril 5 mg Tab) 1 Tablets By Mouth 2 times a day. Refills: 0. Last Dose: ____Next Dose: ____ meclizine (meclizine 12.5 mg Tab) 1 Tablets By Mouth 3 times a day as needed for dizziness. Refills: 0. Last Dose: ____Next Dose: ____ metformin (metformin 500 mg Tab) 1 Tablets By Mouth 2 times a day. Last Dose: ____Next Dose: ____ metoprolol (Metoprolol tartrate 50 mg Tab) 1 Tablets By Mouth 2 times a day. Refills: 0. Last Dose: ____Next Dose: ____ Misc Prescription (Liver panel) 0. Refills: 0. Last Dose: ____Next Dose: ____ potassium bicarbonate (Klor-Con/EF 25 mEq oral tablet, effervescent) 1 Tablets By Mouth every day. dissolve in 4 ounces of water. Refills: 10. Last Dose: ____Next Dose: ____ sodium chloride (NS Flush 10 mL) 10 mL IV Pushprior to and after administration of fluconazole and as needed. Refills: 0. Last Dose: ____Next Dose: ____ solifenacin (Vesicare 10 mg Tab) 1 Tablets By Mouth every day. Refills: 0. Last Dose: ____Next Dose: ____ Comment: MEDICATION LIST PROVIDED FOR YOU IS A LIST OF YOUR CURRENT MEDICATIONS. PLEASE CARRY THIS WITH YOU AT ALL TIMES. atorvastatin (atorvastatin 40 mg Tab) 1 Tablets By Mouth every day. ciprofloxacin (Cipro 500 mg Tab) 1 Tablets By Mouth 2 times a day. Refills: 0. clopidogrel (Plavix 75 mg Tab) Wednesday-. insulin glargine (Basaglar KwikPen 100 units/mL subcutaneous solution) 40 Units Subcutaneous once a day (in the morning). lisinopril (lisinopril 5 mg Tab) 1 Tablets By Mouth 2 times a day. Refills: 0. meclizine (meclizine 12.5 mg Tab) 1 Tablets By Mouth 3 times a day as needed for dizziness. Refills: 0. metformin (metformin 500 mg Tab) 1 Tablets By Mouth 2 times a day. metoprolol (Metoprolol tartrate 50 mg Tab) 1 Tablets By Mouth 2 times a day. Refills: 0. Misc Prescription (Liver panel) 0. Refills: 0. potassium bicarbonate (Klor-Con/EF 25 mEq oral tablet, effervescent) 1 Tablets By Mouth every day. dissolve in 4 ounces of water. Refills: 10. sodium chloride (NS Flush 10 mL) 10 mL IV Pushprior to and afte (more content not included)... 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 Barrett. No family present. Pt is on phone with family providing updates at this time. Declines any concerns or DC needs. Medicare rights reviewed. . PCP verified and insurance information reviewed and DME discussed. Contact information provided and white board updated. [facility] Comment on above: Result Comment: Elec tronically Signed By: Samir MARCUM, Ayleen\.hector\Date and Time Signed: 02/22/24 09:22 EDT Monitor Recordon 02-22-2024 Monitor Record [id number]# 1.00TIFF [facility] Monitor Record [id number]# 1.00TIFF [facility] Monitor Record [id number] 1.00TIFF [facility] Progress Note-Physicianon Progress Note-Physician Subjective Day #4 IV Zosyn Patient seen and examined this morning. She voices no complaints. Review of Systems Constitutional: no fever, no chills, no sweats, no weakness Respiratory: no shortness of breath, no cough, no orthopnea, no wheezing Cardiovascular: no chest pain, no palpitations, no edema Additional ROS info: Except as noted in the above Review of Systems and in the History of Present Illness all other systems have been reviewed and are negative or noncontributory. Objective Vitals & Measurements T: 36.6 ?C(Axillary) TMIN: 36.2 ?C(Oral) TMAX: 36.9 ?C(Oral) HR: 51(Monitored) RR: 18 BP: 160/71 SpO2: 97% WT: 91.9 kg Intake & Output This visit (24 hour periods starting at 07:00 EDT) 02/22/24 * 02/21/24 02/20/24 Total Summary Intake mL -- 2 766.23 Output mL -- -- -- Fluid Balance -- 2 766.23 Intake (5) Lactated Ringers Injection 1,000 mL mL -- -- 50 Oral Intake mL -- -- 400 Sodium Chloride 0.9% intravenous solution 1,000 mL mL -- -- 301.98 Sodium Chloride 0.9%, piperacillin-tazobact am mL -- -- 14.25 ondansetron mL -- 2 -- Total -- 2 766.23 Output (0) Counts (1) Urine Count 1 3 -- * This column has not completed the indicated time period. Physical Exam Constitutional: Awake and alert; oriented x 3 with no apparent distress or respiratory distress Head/neck: Neck supple with no palpable lymphadenopathy, bruits or masses; trachea midline Chest/lungs: Clear to auscultation bilaterally no wheezes or rhonchi noted bilaterally Cardiovascular: Regular rate and rhythm; normal S1-S2 with no murmur; no pitting edema and 2+ pulses bilaterally Gastrointestinal: Soft, nontender, nondistended, positive bowel sounds; obese Neurological: Nonfocal; cranial nerves II through XII appear intact Psychological: Pleasant affect Lab Results WBC: 8.9 E9/L (02/22/24 05:20:00) RBC: 4.3 E12/L (02/22/24 05:20:00) HGB: 13.1 gm/dL (02/22/24 05:20:00) Hct: 39.5 % (02/22/24 05:20:00) MCV: 92.8 fL (02/22/24 05:20:00) MCH: 30.8 pg (02/22/24 05:20:00) MCHC: 33.2 gm/dL (02/22/24 05:20:00) RDW: 13.9 % (02/22/24 05:20:00) Platelet: 122 E9/L Low (02/22/24 05:20:00) MPV: 8.5 fL (02/22/24 05:20:00) Neutro Auto: 81.8 % High (02/22/24 05:20:00) Lymph Auto: 9.5 % Low (02/22/24 05:20:00) [place] Auto: 7 % (02/22/24 05:20:00) Eos Auto: 1.5 % (02/22/24 05:20:00) Basophil Auto: 0.2 % (02/22/24 05:20:00) Neutro Absolute: 7.3 E9/L (02/22/24 05:20:00) Lymph Absolute: 0.8 E9/L Low (02/22/24 05:20:00) [place] Absolute: 0.6 E9/L (02/22/24 05:20:00) Eos Absolute: 0.1 E9/L (02/22/24 05:20:00) Basophil Absolute: 0 E9/L (02/22/24 05:20:00) Glucose Lvl: 254 mg/dL High (02/22/24 05:20:00) BUN: 33 mg/dL High (02/22/24 05:20:00) Creatinine: 1.5 mg/dL High (02/22/24 05:20:00) eGFR: 37 mL/min/1.73 m2 Low (02/22/24 05:20:00) BUN/Creat Ratio: 22 High (02/22/24 05:20:00) Sodium Lvl: 143 mmol/L (02/22/24 05:20:00) Potassium Lvl: 3.9 mmol/L (02/22/24 05:20:00) Chloride: 118 mmol/L High (02/22/24 05:20:00) CO2: 19 mmol/L Low (02/22/24 05:20:00) AGAP: 10 mEq/L (02/22/24 05:20:00) Calcium Lvl: 7.3 mg/dL Low (02/22/24 05:20:00) Glucose Cap: 303 mg/dL High (02/22/24 11:20:00) POC Device SN: [id number] (02/22/24 11:20:00) POC User ID: [id number] (02/22/24 11:20:00) POC Username: POC Username (02/22/24 11:20:00) Assessment/Plan 74-year-old female admitted for complicated UTI along with acute kidney superimposed on chronic kidney disease as well as right-sided hydronephrosis with ureteral calculus obstruction status post cystoscopy with bilateral retrograde pyelogram and placement of right ureteral stent and extraction of calculus fragment February 20, 2024. She was also noted to be significantly hyperglycemic. Patient's comorbidities include history of nephrolithiasis. 1. Complicated urinary tract infection (N39.0: Urinary tract infection, site not specified) Day 4 of IV Zosyn Urine culture no growth to date white count down to 8.9 this morning 2. Acute kidney injury superimposed on chronic kidney disease (N17.9: Acute kidney failure, unspecified) Serum creatinine 1.5 compared to 1.7 yesterday -Nutrition Status post placement by Dr. Dent 02/20/2020 3. Hydronephrosis with renal and ureteral calculus obstruction (N13.2: Hydronephrosis with renal and ureteral calculous obstruction) Status post bilateral retrograde pyelogram and placement of right ureteral stent and extraction of calculus 02/20/2024 4. Hyperglycemia due to diabetes mellitus (E11.65: Type 2 diabetes mellitus with hyperglycemia) Serum glucose and Accu-Cheks between 203 100+ We did increase her basal Lantus to 18 units yesterday along with sliding scale coverage 5. Abdominal pain (R10.9: Unspecified abdominal pain) Secondary to obstructive uropathy; see #1 and #3 above 6. Nausea and vomiting (R11.2: Nausea with vomiting, unspecified) Antiemetics as needed tolerating p.o. 7. (more content not included)... Normal [facility] Comment on above: Result Comment: Elec tronically Signed By: Jhonny Barrett DO\.br\Date and Time Signed: 02/22/24 13:48 EDT eGFRon 02-22-2024 eGFR 37 mL/min/1.73 m2 Low >=59 [facility] Comment on above: Order Comment: Order added by Discern Expert. Performed By: #### 1 [id number] #### [facility] [address] [place] [address] BMPOrdered By: SYSTEM SYSTEM on 02-21-2024 Anion gap [Moles/Vol] 13 mmol/L Normal 6 - 16 mEq/L Remisol Chem Comment on above: Performed By: #### 2 [id number] #### [facility] [address] [place] [address] Calcium [Mass/Vol] 7.7 mg/dL Low 8.9 - 11.1 mg/dL Remisol Chem Comment on above: Performed By: #### 2 [id number] #### [facility] [address] [place] [address] Chloride [Moles/Vol] 114 mmol/L High 101 - 111 mmol/ L Remisol Chem Comment on above: Performed By: #### 2 [id number] #### [facility] [address] [place] [address] CO2 [Moles/Vol] 20 mmol/L Low 21 - 31 mmol/L Remis ol Chem Comment on above: Performed By: #### 2 [id number] #### [facility] [address] [place] [address] Creatinine [Mass/Vol] 1.7 mg/dL High 0.5 - 1.3 mg/dL Remisol Chem Comment on above: Performed By: #### 2 [id number] #### [facility] [address] [place] [address] Glucose [Mass/Vol] 289 mg/dL High 55 - 199 mg/dL Re misol Chem Comment on above: Performed By: #### 2 [id number] #### [facility] [address] [place] [address] Potassium [Moles/Vol] 4.2 mmol/L Normal 3.5 - 5.3 mmol/L Remisol Chem Comment on above: Performed By: #### 2 [id number] #### [facility] [address] [place] [address] Sodium [Moles/Vol] 143 mmol/L Normal 135 - 145 mmol/L Remisol Chem Comment on above: Performed By: #### 2 [id number] #### [facility] [address] [place] [address] Urea nitrogen [Mass/Vol] 37 mg/dL High 5 - 21 mg/dL Remisol Chem Comment on above: Performed By: #### 2 [id number] #### [facility] [address] [place] [address] BMPon 02-21-2024 Urea nitrogen/Creatinine [Mass ratio] 22 No Units High 10- [facility] Comment on above: Performed By: #### 2 [id number] #### [facility] [address] [place] [address] C Urineon 02-21-2024 Bacteria identified Cx Nom (U) Microbiology PROCEDURE: Urine Culture [R1] SOURCE: U CleanCatch BODY SITE: COLLECTED DATE/TIME: 02/19/2024 16:54 EDT RECEIVED DATE/TIME: 02/19/2024 20:05 EDT START DATE/TIME: 02/19/2024 20:05 EDT FREE TEXT SOURCE: Cj CASTANEDA, Luis Cordon. Cj CASTANEDA, Luis Cordon. FINAL REPORTS Final Report [] Verified Date/Time: 02/21/2024 07:01 EDT <10,000 cfu/ml Mixed skin contaminants Performing Locations R1: This test was performed at: [facility], [address] [place] [address], [id number] , , [facility] Comment on above: Performed By: #### 2 [id number] #### [facility] [address] [place] [address] CHEMISTRYOrdered By: SYSTEM SYSTEM on 02-21-2024 Urea nitrogen/Creatinine [Mass ratio] 22 mg/mg High Remisol Chem Capillary Glucose POCon 01-29 Glucose [Mass/Vol] 194 mg/dL High 55-99 [facility] Comment on above: Result Comment: Repe at Test Performed By: #### 2 [id number] #### [facility] [address] [place] [address] Glucose [Mass/Vol] 201 mg/dL High 55-99 [facility] Comment on above: Result Comment: Modesto vanegas RN/ Performed By: #### 2 [id number] #### [facility] [address] [place] [address] Glucose [Mass/Vol] 287 mg/dL High - [facility] Comment on above: Performed By: #### 2 [id number] #### [facility] [address] [place] [address] Glucose [Mass/Vol] 240 mg/dL High 55-99 [facility] Comment on above: Result Comment: Modesto vanegas RN/ Performed By: #### 2 [id number] #### [facility] [address] [place] [address] Glucose [Mass/Vol] 323 mg/dL High 55-99 [facility] Comment on above: Result Comment: Modesto vanegas RN/ Performed By: #### 2 [id number] #### [facility] [address] [place] [address] Consent for Anesthesiaon Consent for Anesthesia [id number]# 1.00TIFF Normal [facility] Consent for Procedure/Surger yon 02-21-2024 Consent for Procedure/Surgery [id number]# 1.00TIFF Normal [facility] [id number] 02-21-2024 HbA1c (Bld) [Mass fraction] 11.3 % High <=5.9 [facility] Comment on above: Performed By: #### 7 [id number] #### [facility] [address] [place] [address] Interdisciplinary Note - Galo e Manageron 02-21-2024 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 Barrett. Pt is from home with spouse and he will transport at [place]. Pt was just up to bathroom and per nursing gait steady and declines any needs. Medicare rights reviewed. Pt states was told by they will be getting more blood work today, declines any concerns or DC needs. . PCP verified and insurance information reviewed and DME discussed. Contact information provided and white board updated. 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 This patient lives with her spouse and has been for 40 years. She voiced that she has no safety concerns. There were no psychosocial needs identified. Normal [facility] IntraOperative Documentson 0 02-21-2024 IntraOperative Documents [id number]# 1.00TIFF Normal [facility] Main OR Intraoperative Recor don 02-21-2024 Main OR Intraoperative Record IntraOp Document Type FT Summary Primary Physician: Glynn DENT MD Finalized Date/Time: 02/21/24 14:17:37 Pt. Name: SHAHANA GRACE David Royal./Sex: 1950 Female Med Rec #: [id number] Physician: Glynn ALARCON DO Financial #: [id number] Pt. Type: I Room/Bed: [place] [address] Admit/Disch: 02/19/24 13:27:15 - Institution: Case Times FT Entry 1 Patient Times In Room 02/20/24 10:16:00 Out Room 02/20/24 10:45:00 Procedure Times Start 02/20/24 10:29:00 Stop 02/20/24 10:37:00 Anesthesia Times Start 02/20/24 10:16:00 Stop 02/20/24 10:45:00 Last Modified By: Franklin MARCUM, Shara Muñiz 02/20/24 13:29:15 General Comments: 02/21/24 Chart opened to review and send charges LRoth CSFA Case Attendance FT Entry 1 Entry 2 Entry 3 Case Attendee MD Ingrid, Jossy DENT MD, Glynn Reid RN, Shara Muñiz Role Performed Anesthesiologist of Surgeon - Primary Pulley Man - Primary Record Time In 02/20/24 10:16:00 02/20/24 10:16:00 02/20/24 10:16:00 Time Out 02/20/24 10:45:00 02/20/24 10:45:00 02/20/24 10:45:00 Procedure CYSTOSCOPY STENT CYSTOSCOPY STENT CYSTOSCOPY STENT INSERTION INSERTION INSERTION Comments Last Modified By: Franklin RN, Shara Reid RN, Shara Reid RN, Shara Yang P 02/20/24 Celia P 02/20/24 Celia P 02/20/24 13:29:15 13:29:15 13:29:15 Entry 4 Entry 5 Entry 6 Case Attendee Isaias KIDD, Nael Us RT(R), Fallon Role Performed Scrub - Primary PRINCIPAL SYSTEMS ENGINEER Operator Maintainer Time In 02/20/24 10:16:00 02/20/24 10:16:00 02/20/24 10:16:00 Time Out 02/20/24 10:45:00 02/20/24 10:45:00 02/20/24 10:45:00 Procedure CYSTOSCOPY STENT CYSTOSCOPY STENT CYSTOSCOPY STENT INSERTION INSERTION INSERTION Comments Last Modified By: Franklin RN, Shara Reid RN, Shara Reid RN, Shara Yang P 02/20/24 Celia P 02/20/24 Celia P 02/20/24 13:29:15 13:29:15 13:29:15 Perioperative Protocols FT Pre-Care Text: Implements protective measures prior to operative or invasive procedure, confirms identity before the operative or invasive procedure, verifies operative procedure, surgical site, and laterality Entry 1 Procedure(s) CYSTOSCOPY STENT Patient Identity Birthday, ID Band INSERTION Verified (select at Check, Patient least 2): Participation Consents / H and P Anesthesia Consent, Operative Site N/A Verified HandP, Surgery/Procedure Marking Verified Consent Surgical Site Yes Laterality Verified Yes Verified Procedure Verified Yes Correct Patient Yes Position Verified Availability Equipment, Implant, Prep Dry n/a Verified (If Medication, X-ray Applicable) PreOp Antibiotic Yes Time Out JAILENE CHISHOLM, Glynn Mcdermott, Given Participants MD Ingrid, Franklin Figueroa RN, Shara Muñiz, Isaias KIDD, Naya Qureshi Alejandro, Christman RT(R), Fallon Time Out Complete 02/20/24 10:29:00 Outcomes Met? Yes Last Modified By: Franklin MARCUM, Shara Muñiz 02/20/24 13:31:42 Post-Care Text: The patient is free from signs and symptoms of injury caused by extraneous objects Allergy Information FT Pre-Care Text: Verifies allergies Entry 1 Allergies Reviewed? Yes Allergies Reviewed Self/Patient With Outcomes Met? Yes Last Modified By: Shara Reid RN 02/20/24 11:11:23 Post-Care Text: The patient received appropriate medication(s) safely administered during the perioperative period Surgical Procedures FT Entry 1 Procedure Description Procedure CYSTOSCOPY STENT Surgeon Description CYSTOSCOPY, BILATERAL INSERTION RETROGRADE PYELOGRAM, RIGHT STENT INSERTION Primary Procedure Yes Primary Surgeon Glynn DENT MD Start 02/20/24 10:29:00 Stop 02/20/24 10:37:00 Anesthesia Type General Surgical Service Urology Wound Class 2 - Clean-Contaminated Last Modified By: Shara Reid RN 02/20/24 13:29:28 General Case Data FT Pre-Care Text: Classifies surgical wound, implements aseptic technique, initiates traffic control Entry 1 Case Information OR OR 1 FT Case Level Level 3 Wound Class 2 - Clean-Contaminated Specialty Urology Preop Diagnosis Obstructing right Postop Same As Preop Yes ureteral calculi, Right hydronephrosis, GIOVANNY, Left flank pain. Postop Diagnosis Obstructing right Outcomes Met? Yes ureteral calculi, Right hydronephrosis, GIOVANNY, Left flank pain. Last Modified By: Shara Reid RN 02/20/24 11:23:08 Post-Care Text: The patient is free from signs and symptoms of infection Skin Assessment (Pre Procedure) FT Pre-Care Text: Implements protective measures to prevent skin/ tissue injury due to thermal or mechanical sources Evaluates for signs and symptoms of physical injury to skin and tissue Entry 1 Skin Integrity Intact, [place], Warm, and Skin Abnormality No Dry Outcomes Met? Yes Last Modified By: Shara Reid RN 02/20/24 11:11:55 Post-Care Text: The patient is free from signs and symptoms of injur (more content not included)... Normal [facility] Monitor Recordon 02-21-2024 Monitor Record [id number]# 1.00TIFF Normal [facility] Monitor Record [id number]# 1.00TIFF Normal [facility] Monitor Record [id number]# 1.00TIFF Normal [facility] Monitor Record [id number]# 1.00TIFF Normal [facility] Progress Note-Physicianon Progress Note-Physician Subjective Day 3 IV Zosyn Postop day 1 status post cystoscopy with bilateral retrograde pyelogram and placement of right ureteral stent and extraction of calculus fragment February 20, 2024 Patient seen and examined this morning. She voices no complaints and she is tolerating p.o. and is the first time she has eaten a couple days. No other issues. Review of Systems Constitutional: no fever, no chills, no sweats, no weakness Respiratory: no shortness of breath, no cough, no orthopnea, no wheezing Cardiovascular: no chest pain, no palpitations, no edema Additional ROS info: Except as noted in the above Review of Systems and in the History of Present Illness all other systems have been reviewed and are negative or noncontributory. Objective Vitals & Measurements T: 36.6 ?C(Oral) TMIN: 36.3 ?C(Axillary) TMAX: 36.9 ?C(Oral) HR: 55(Apical) RR: 16 BP: 172/82 SpO2: 97% WT: 91.1 kg Intake & Output This visit (24 hour periods starting at 07:00 EDT) 02/21/24 * 02/20/24 02/19/24 Total Summary Intake mL 2 766.23 1,915.46 Output mL -- -- -- Fluid Balance 2 766.23 1,915.46 Intake (9) Lactated Ringers Injection 1,000 mL mL -- 50 -- Oral Intake mL -- 400 -- Sodium Chloride 0.9% mL -- -- 1,500 Sodium Chloride 0.9% intravenous solution 1,000 mL mL -- 301.98 308.96 Sodium Chloride 0.9%, ceftriaxone mL -- -- 50 Sodium Chloride 0.9%, piperacillin-tazobact am mL -- 14.25 50 hydrALAZINE mL -- -- 0.5 metoclopramide mL -- -- 2 ondansetron mL 2 -- 4 Total 2 766.23 1,915.46 Output (0) Counts (0) * This column has not completed the indicated time period. Physical Exam Constitutional: Awake and alert; oriented x 3 with no apparent distress or respiratory distress Head/neck: Neck supple with no palpable lymphadenopathy, bruits or masses; trachea midline Chest/lungs: Clear to auscultation bilaterally no wheezes or rhonchi noted bilaterally Cardiovascular: Regular rate and rhythm; normal S1-S2 with no murmur; no pitting edema and 2+ pulses bilaterally Gastrointestinal: Soft, nontender, nondistended, positive bowel sounds; obese Neurological: Nonfocal; cranial nerves II through XII appear intact Psychological: Pleasant affect Lab Results Size: 6FR X 22-32CM (02/20/24 13:30:45) Glucose Lvl: 289 mg/dL High (02/21/24 09:19:00) BUN: 37 mg/dL High (02/21/24 09:19:00) Creatinine: 1.7 mg/dL High (02/21/24 09:19:00) eGFR: 31 mL/min/1.73 m2 Low (02/21/24 09:19:00) BUN/Creat Ratio: 22 High (02/21/24 09:19:00) Sodium Lvl: 143 mmol/L (02/21/24 09:19:00) Potassium Lvl: 4.2 mmol/L (02/21/24 09:19:00) Chloride: 114 mmol/L High (02/21/24 09:19:00) CO2: 20 mmol/L Low (02/21/24 09:19:00) AGAP: 13 mEq/L (02/21/24 09:19:00) Calcium Lvl: 7.7 mg/dL Low (02/21/24 09:19:00) Glucose Cap: 287 mg/dL High (02/21/24 11:33:00) POC Device SN: [id number] (02/21/24 11:33:00) POC User ID: [id number] (02/21/24 11:33:00) POC Username: TYRONE ZAPATA (02/21/24 11:33:00) Assessment/Plan 74-year-old female admitted for complicated UTI along with acute kidney superimposed on chronic kidney disease as well as right-sided hydronephrosis with ureteral calculus obstruction status post cystoscopy with bilateral retrograde pyelogram and placement of right ureteral stent and extraction of calculus fragment February 20, 2024. She was also noted to be significantly hyperglycemic. Patient's comorbidities include history of nephrolithiasis 1. Complicated urinary tract infection (N39.0: Urinary tract infection, site not specified) Urine culture negative She was given gentamicin in the ED but switched to Zosyn on the medical service given her acute kidney injury superimposed on chronic kidney disease Did have a leukocytosis; will trend 2. Acute kidney injury superimposed on chronic kidney disease (N17.9: Acute kidney failure, unspecified) Serum creatinine did drop to 1.7 today compared to 2.1 on admission Continue fluid hydration Status post stent placement by Dr. Dent yesterday the so we hope to see improvement Repeat lab in a.m. 3. Hydronephrosis with renal and ureteral calculus obstruction (N13.2: Hydronephrosis with renal and ureteral calculous obstruction) Status post bilateral retrograde pyelogram with placement of right ureteral stent and extraction of calculus 4. Hyperglycemia due to diabetes mellitus (E11.65: Type 2 diabetes mellitus with hyperglycemia) Still elevated blood sugars and serum glucose Will increase basal Lantus from 12 units to 18 and continue sliding scale coverage as well Ordered: insulin glargine, 18 unit(s), Injection-Insulin, SubCutaneous, Bedtime, Routine, Start date 02/21/24 21:00:00 EDT, 02/21/24 12:06:00 EDT 5. Abdominal pain (R10.9: Unspecified abdominal pain) Secondary to her obstructive uropathy See 1 and 3 above 6. Nausea and vomiting (R11.2: Nausea with vomiting, unspecified) Antiemetics as needed (more content not included)... Normal [facility] Comment on above: Result Comment: Elec tronically Signed By: Jhonny Barrett DO\.br\Date and Time Signed: 02/21/24 12:11 EDT eGFROrdered By: GEMA Santiago on 02-21-2024 eGFR 31 mL/min/1.73 m2 Low >=59mL/min /1.73 m2 Remisol Chem Comment on above: Order Comment: Order added by Discern Expert. Performed By: #### 1 [id number] #### [facility] [address] [place] [address] BMPon 02-20-2024 Anion gap [Moles/Vol] 13 mmol/L Normal 6-16 [facility] Comment on above: Performed By: #### 2 [id number] #### [facility] [address] [place] [address] Calcium [Mass/Vol] 8.1 mg/dL Low 8.9-11.1 [facility] Comment on above: Performed By: #### 2 [id number] #### [facility] [address] [place] [address] Chloride [Moles/Vol] 112 mmol/L High 101-111 [facility] Comment on above: Performed By: #### 2 [id number] #### [facility] [address] [place] [address] CO2 [Moles/Vol] 24 mmol/L Normal 21-31 [facility] Comment on above: Performed By: #### 2 [id number] #### [facility] [address] [place] [address] Creatinine [Mass/Vol] 2.1 mg/dL High 0.5-1.3 [facility] Comment on above: Performed By: #### 2 [id number] #### [facility] [address] [place] [address] Glucose [Mass/Vol] 301 mg/dL High 55-199 [facility] Comment on above: Performed By: #### 2 [id number] #### [facility] [address] [place] [address] Potassium [Moles/Vol] 4.4 mmol/L Normal 3.5-5.3 [facility] Comment on above: Performed By: #### 2 [id number] #### [facility] [address] [facility] [place] [address] Sodium [Moles/Vol] 145 mmol/L Normal 135-145 [facility] Comment on above: Performed By: #### 2 [id number] #### [facility] [address] [place] [address] Urea nitrogen [Mass/Vol] 38 mg/dL High 5-21 [facility] Comment on above: Performed By: #### 2 [id number] #### [facility] [address] [place] [address] Urea nitrogen/Creatinine [Mass ratio] 18 No Units Normal 10-20 [facility] Comment on above: Performed By: #### 2 [id number] #### [facility] [address] [place] [address] CBC w/ Auto DiffOrdered By: SYSTEM SYSTEM on 02-20-2024 Basophils/100 WBC (Bld) 0.3 % Normal 0.0 - 2.0 % Remisol Heme Comment on above: Performed By: #### 2 [id number] #### [facility] [address] [place] [address] Basophils/Leukocytes Auto (Bld) [Pure # fraction] 0.0 E9/L Normal 0.0 - 0.2 E9/L Rem[facility] Heme Comment on above: Performed By: #### 2 [id number] #### [facility] [facility] [address] [place] [address] [id number] Eosinophils (Bld) [#/Vol] 0.0 E9/L Normal 0.0 - 0.5 E9/L Remisol Heme Comment on above: Performed By: #### 2 [id number] #### [facility] [address] [place] [address] 22030 Eosinophils/100 WBC (Bld) 0.1 % Normal 0.0 - 8.0 % Remisol Heme Comment on above: Performed By: #### 2 [id number] #### [facility] [address] [place] [address] 70557 Erythrocyte distribution width (RBC) [Ratio] 14.0 % Normal 10.9 - 14.2 % Remisol Heme Comment on above: Performed By: #### 2 [id number] #### [facility] [address] [place] [address] 89772 Hematocrit (Bld) [Volume fraction] 45.0 % Normal 34.0 - 46.0 % Remisol Heme Comment on above: Performed By: #### 2 [id number] #### [facility] [address] [place] [address] 49293 Hemoglobin (Bld) [Mass/Vol] 14.8 g/dL Normal 12.0 - 16.0 gm/dL Remisol Heme Comment on above: Performed By: #### 2 [id number] #### [facility] [address] [place] [address] 56416 Lymphocytes (Bld) [#/Vol] 1.3 E9/L Normal 1.0 - 4.0 E9/L Remisol Heme Comment on above: Performed By: #### 2 [id number] #### [facility] [address] [place] [address] 28199 Lymphocytes/100 WBC (Bld) 9.6 % Low 14.0 - 50.0 % Remisol Heme Comment on above: Performed By: #### 2 [id number] #### [facility] [address] [place] [address] 76496 MCH (RBC) [Entitic mass] 30.8 pg Normal 27.0 - 34.0 pg Remisol Heme Comment on above: Performed By: #### 2 [id number] #### [facility] [address] [place] [address] 05513 MCHC (RBC) [Mass/Vol] 32.9 g/dL Normal 31.4 - 36.0 gm/dL Remisol Heme Comment on above: Performed By: #### 2 [id number] #### [facility] [address] [place] [address] 43617 MCV (RBC) [Entitic vol] 93.5 fL Normal 80.0 - 100.0 fL Remisol Heme Comment on above: Performed By: #### 2 [id number] #### [facility] [address] [place] [address] 89640 Monocytes (Bld) [#/Vol] 0.9 E9/L Normal 0.2 - 1.0 E9/L Remisol Heme Comment on above: Performed By: #### 2 [id number] #### [facility] [address] [place] [address] 48317 Neutrophils (Bld) [#/Vol] 11.0 E9/L High 2.0 - 7.5 E9/L Remisol Heme Comment on above: Performed By: #### 2 [id number] #### [facility] [address] [place] [address] Neutrophils/100 WBC (Bld) 82.9 % High 36.0 - 75.0 % Remisol Heme Comment on above: Performed By: #### 2 [id number] #### [facility] [address] [place] [address] Platelet mean volume (Bld) [Entitic vol] 8.2 fL Normal 6.4 - 10.8 fL Remisol Heme Comment on above: Performed By: #### 2 [id number] #### [facility] [address] [place] [address] 80293 Platelets (Bld) [#/Vol] 144.0 E9/L Low 150.0 - 500.0 E9/L Remisol Heme Comment on above: Performed By: #### 2 [id number] #### [facility] [address] [place] [address] 39665 RBC (Bld) [#/Vol] 4.8 E12/L Normal 4.3 - 5.9 E12/L Re misol Heme Comment on above: Performed By: #### 2 [id number] #### [facility] [address] [place] [address] 47847 WBC corrected for nucl RBC Auto (Bld) [#/Vol] 13.2 E9/L High 4.0 - 11.0 E9/L Remisol Heme Comment on above: Performed By: #### 2 [id number] #### [facility] [address] [place] [address] CHEMISTRYOrdered By: Abisai Lutz on 02-20-2024 HbA1c (Bld) [Mass fraction] 11.3 % High <=5.9% [facility] [place] Abdomen/Pelvis w/o Contra ston 02-20-2024 CT Abdomen/Pelvis w/o Contrast Exam Date/Time: 02/19/2024 15:29 EDT Reason for Exam: ABDOMINAL PAIN, ACUTE, NONLOCALIZED;Other (please specify) Report IMPRESSION: MILD TO MODERATE RIGHT-SIDED HYDROURETERONEPHROSIS SECONDARY TO A 7 MM CALCULUS WITHIN THE PROXIMAL LEFT URETER. A CLUSTER OF TINY CALCULI ARE IDENTIFIED WITHIN THE DISTAL RIGHT URETER WELL, MEASURING APPROXIMATELY 9 MM IN CRANIOCAUDAL LENGTH. COLONIC DIVERTICULOSIS WITHOUT DIVERTICULITIS AND CHOLELITHIASIS WITH ADDITIONAL CHRONIC FINDINGS DETAILED. EXAM: CT Abdomen/Pelvis w/o Contrast History: Abdominal pain Technique: Multiple contiguous axial images were obtained of the abdomen and pelvis from the level of the lung bases through the ischial tuberosities without contrast. Multiplanar reformats were obtained. Unless otherwise stated, incidental findings identified in this report do not require routine follow-up imaging. Comparison: CT abdomen pelvis 05/26/2023 Findings: Lung bases are clear. Lack of intravenous contrast precludes optimal evaluation of the abdominal and pelvic viscera. Layering increased density material resides within the gallbladder which appears otherwise unremarkable. The unenhanced liver, spleen, pancreas, stomach, and adrenal glands appear within normal limits. Splenic artery aneurysm coil noted. Mild to moderate right-sided hydroureteronephrosis secondary to a 7 mm calculus within the proximal right ureter. There appears to be a cluster of tiny calculi within the distal right ureter at the level of the inferior margin of the sacroiliac joints measuring approximately 9 mm in craniocaudal length. No obstructing left urinary tract calculi or hydronephrosis. Chronic bilateral perinephric stranding. Bilateral renal vascular calcifications. Urinary bladder is well distended. The uterus is present. Abdominal aorta is nonaneurysmal. Atherosclerotic calcification of the abdominal aorta. No retroperitoneal or abdominal/pelvic lymphadenopathy. Two ventral abdominal wall hernias are again identified and do not appear significant changed in size. The more superior of these contains a short segment of small bowel without obstruction and the more inferior of these contains only mesenteric fat. No small bowel obstruction. A few colonic diverticuli are identified. No overt Report colonic mass or pericolonic inflammation. No findings of acute appendicitis. No free fluid or free air. No acute osseous abnormality. Degenerative changes of the spine. All CT scans at this facility use dose modulation, iterative reconstruction, and/or weight based dosing when appropriate to reduce radiation dose to as low as reasonably achievable. Ordering Provider: Luis Corona FINAL REPORT Dictated: 02/20/2024 8:16 am Delfino Carrasco DO Signed (Electronic Signature): 02/20/2024 8:16 am Signed by: Delfino Carrasco DO Transcribed by: KAMINI Technologist: LEWIS Technical Comments Rectal Contrast Given? No Oral contrast amount in ml's: 0 Normal [facility] Capillary Glucose POCon 01-29 Glucose [Mass/Vol] 384 mg/dL High 55-99 [facility] Comment on above: Result Comment: [place] ANDRES Performed By: #### 2 [id number] #### [facility] [address] [place] [address] Glucose [Mass/Vol] 249 mg/dL High [address] [place] [address] Comment on above: Result Comment: [place] ANDRES Performed By: #### 2 [id number] #### [facility] [address] [place] [address] Glucose [Mass/Vol] 202 mg/dL High [address] [place] [address] Comment on above: Result Comment: [place] ANDRES Performed By: #### 2 [id number] #### [facility] [address] [place] [address] Glucose [Mass/Vol] 192 mg/dL High 55-99 [facility] Comment on above: Result Comment: [place] ANDRES Performed By: #### 2 [id number] #### [facility] [address] [place] [address] Glucose [Mass/Vol] 262 mg/dL High 55-99 [facility] Comment on above: Result Comment: [place] ANDRES Performed By: #### 2 [id number] #### [facility] [address] [place] [address] Glucose [Mass/Vol] 302 mg/dL High 55-99 [facility] Comment on above: Result Comment: [place] ANDRES Performed By: #### 2 [id number] #### [facility] [address] [place] [address] Consultation Noteon 02-20-20 Consultation Note Patient: SHAHANA GRACE Age: 74 years Sex: Female : 1950 Associated Diagnoses: None Author: Glynn DENT MD Chief Complaint 02/19/2024 20:18 EDT Hyperglycemia 02/19/2024 13:28 EDT [facility]. pt reports not feeling well x 3 days. pt's fsbs read hi upon arrival. states they have been taking medications as scheduled. History of Present Illness X this 74-year-old lady with a history of stones developed some colicky intermittent abdominal pain for the last 3 days or so. She denies having fevers and chills. She is vague about where her pain actually was. This morning, she is stating that her pain was on her left side. Upon admission to the emergency room she had a white count of 14.3 thousand and a blood sugar of 426. Her serum creatinine was 2.1 with a GFR of 24. Her baseline is apparently 1.3. She also had a CT scan done which showed a 7 mm proximal right ureteral calculus and a cluster of distal right ureteral stone pieces measuring 9 mm. She also had ipsilateral hydro nephrosis. The left side appeared clear. Urologic consultation was obtained for the above reasons. The patient has had numerous stones over the past. Review of Systems ROS reviewed as documented in chart Health Status Allergies: Allergic Reactions (Selected) Severity Not Documented Aspirin- Eye swelling., Allergies (1) Active Severity Reaction aspirin Eye swelling Current medications: (Selected) Inpatient Medications Ordered Dextrose 50% Soln-IV: 50 mL, Soln-IV, IV Push, Once PRN Blood glucose, Routine, Start date 02/19/24 21:47:00 EDT Insulin Lispro Sliding Scale: 0-10 unit(s), Injection-Insulin, SubCutaneous, q6hr, Routine, Start date 02/20/24 0:00:00 EDT Metoprolol tartrate 50 mg Tab: 50 mg = 1 tab(s), Tab, Oral, BID, Routine, Start date 02/19/24 21:43:00 EDT, 02/19/24 21:43:00 EDT NS 1000 mL Soln-IV 1,000 mL: 1,000 mL, IV, 150 mL/hr, Routine, Start date 02/19/24 21:44:00 EDT, 6.7 hour(s), Total volume (mL): 1,000, 84.3 kg, 1.94, m2 Sodium Chloride 0.9% IV Milena 250 mL bag 250 mL: 250 mL, IV, 250 mL/hr, STAT, Start date 02/19/24 15:31:00 EDT, 1 hour(s), Total volume (mL): 250, 84.3 kg, 1.94, m2 Zofran 4 mg/2 mL Injection: 4 mg = 2 mL, Injection, IV Push, q6hr PRN Nausea/Vomiting, Routine, Start date 02/19/24 21:54:00 EDT, 02/19/24 21:54:00 EDT acetaminophen 325 mg Tab: 650 mg = 2 tab(s), Tab, Oral, q6hr PRN Pain, Routine, Start date 02/19/24 21:44:00 EDT, 02/19/24 21:44:00 EDT atorvastatin 40 mg Tab: 40 mg = 1 tab(s), Tab, Oral, Daily, Routine, Start date 02/20/24 9:00:00 EDT, 02/19/24 21:42:00 EDT insulin glargine 100 units/mL SubQ Milena 10 mL: 12 unit(s) = 0.12 mL, Injection-Insulin, SubCutaneous, Bedtime, Routine, Start date 02/19/24 21:49:00 EDT morphine 2 mg/mL Inj: 2 mg = 1 mL, Injection, IV Push, q4hr PRN Pain for 5 day(s), Stop date 02/24/24 21:39:00 EDT, Routine, Start date 02/19/24 21:40:00 EDT, 02/19/24 21:40:00 EDT piperacillin-tazobact am additive + Sodium Chloride 0.9% intravenous solution 50 mL: 2.25 gram = 1 EA, Injection, IV Piggyback, q6hr, Routine, Start date 02/19/24 22:00:00 EDT, 100 mL/hr, Infuse over 30 minute(s) Prescriptions Prescribed Cipro 500 mg Tab: 500 mg = 1 tab(s), Oral, BID, # 10 tab(s), Refills(s) 0, Pharmacy: [id number], 160.5, cm, 08/05/23 13:21:00 EST, Height/Length Dosing, 83, kg, 08/05/23 13:21:00 EST, Weight Dosing Klor-Con/EF 25 mEq oral tablet, effervescent: 25 mEq = 1 tab(s), Oral, Daily, dissolve in 4 ounces of water, # 30 tab(s), Refills(s) 10, Pharmacy: [facility], 158, cm, 02/08/23 12:39:00 EDT, Height/Length Dosing, 82, kg, 02/08/23 12:39:00 EDT, Weight Dosing Liver panel: Liver panel, Print Requisition, Supply Metoprolol tartrate 50 mg Tab: 50 mg = 1 tab(s), Oral, BID, # 120 tab(s), Refills(s) 0, [id number] 157.5, cm, 06/10/21 10:56:00 EDT, Height/Length Dosing, 79.4, kg, 06/10/21 10:56:00 EDT, Weight Dosing NS Flush 10 mL: See Instructions, 60 EA, Refill(s) 0, 10 mL IV Pushprior to and after administration of fluconazole and as needed Vesicare 10 mg Tab: 10 mg = 1 tab(s), Oral, Daily, # 14 tab(s), Refills(s) 0, Pharmacy: [facility], 158, cm, 05/09/23 8:54:00 EDT, Height/Length Dosing, 90.4, kg, 05/09/23 8:54:00 EDT, Weight Dosing lisinopril 5 mg Tab: 5 mg = 1 tab(s), Oral, BID, # 120 tab(s), Refills(s) 0, Pharmacy: [facility] #[id number], 157.5, cm, 06/10/21 10:56:00 EDT, Height/Length Dosing, 79.4, kg, 06/10/21 10:56:00 EDT, Weight Dosing meclizine 12.5 mg Tab: 12.5 mg = 1 tab(s), Oral, TID, PRN for dizziness, # 15 tab(s), Refills(s) 0, Pharmacy: [facility], 157, cm, 11/13/22 23:40:00 EDT, Height/Length Dosing, 83.2, kg, 11/13/22 23:40:00 EDT, Weight Dosing Documented Medications Documented Basaglar KwikPen 100 units/mL subcutaneous solution: 40 unit(s), SubCutaneous, qAM, Refills(s) 0, Blood glucose Plavix 75 mg Tab: See Instructions, Mo (more content not included)... Normal [facility] Comment on above: Result Comment: Elec tronically Signed By: JAILENE CHISHOLM, Glynn Neff.br\Date and Time Signed: 02/20/24 10:48 EDT ED Note-Physicianon 02-20-20 ED Note-Physician Basic Information Time Seen: Cj CASTANEDA, Luis Otto 02/19/2024 13:34 Chief Complaint pt presents to ed via [facility] d/t hyperglycemia. pt reports not feeling well x 3 days. pt's fsbs read hi upon arrival. states they have been taking medications as scheduled. History of Present Illness Patient is a 74-year-old female with PMH of CAD, kidney stones, recurrent UTIs, diabetes, hypertension, open heart surgery that presents today via EMS for evaluation due to her generally not feeling well. Her and her family state that she started not feeling well yesterday and had a couple episodes of vomiting. She does admit to ongoing nausea but no recent vomiting episodes today. She denies bright red blood in her vomit or coffee-ground emesis. Her and her family think she is not feeling well because of her elevated blood sugars. EMS reports that her capillary glucose was reading high which would suggest a glucose above 500. Patient does admit to some urinary symptoms as well including dysuria. Denies frequency or urgency. She does admit to abdominal pain that is mostly in the epigastric area. This seems to get worse with her vomiting episodes. She also admits to watery diarrhea. Denies any body aches, fevers, chills. She denies any shortness of breath, dyspnea, chest pain. Review of Systems No other aggravating or relieving factors no other associated symptoms no other prior treatments or complaints. Family: Reviewed and noncontributory Social: lives at home Review of systems negative unless otherwise specified in the HPI. Physical Exam Vitals & Measurements T: 36.7 ?C(Oral) HR: 75(Peripheral) RR: 24 BP: 190/92 SpO2: 96% HT: 160.5 cm WT: 84.3 kg BMI: 32.72 General: The patient appears well and in no apparent distress. Patient is resting comfortably on cart. Skin: Warm, dry, no pallor noted. Head: Normocephalic, atraumatic Neck: No JVD Eye: PERRLA, EOMI ENT: Moist mucus membranes Cardiovascular: Regular rate and rhythm. Normal peripheral perfusion Respiratory: CTA bilaterally. No respiratory distress no accessory muscle use no obvious audible wheezing Chest Wall: no deformity Musculoskeletal: normal ROM, no deformity, no swelling GI: Soft no obvious distention. No rebound or rigidity. No guarding. Mild tenderness to the epigastric area and right upper quadrant. Neurological: A&O moves all extremities equal strength and symmetry Psychiatric: Cooperative and appropriate Medical Decision Making Patient is a 74-year-old female with complex past medical history that presents today for evaluation after feeling well over the last 24 hours. She was brought by EMS with capillary glucose reading that was high . Upon presentation exam was unremarkable aside from epigastric and right upper quadrant tenderness. Labs are significant for elevated WBC of 14.3, elevated glucose at 559 BUN of 35 2.1, GFR 24, AGAP 17, elevated 0 and 1 hour troponin. I gave the patient an initial 1 L of fluids with 2 doses of IV Zofran. Her repeat capillary glucose was 436. Continued her on IV fluids 250 mL/h to continue to bring down the high blood glucose. After reevaluation her blood pressure started to rise up into the 236/106 area. Provided the patient with 1 dose of hydralazine 10 mg which brought it down to about 178/98. She also had continued nausea so I provided her with a dose of metoclopramide 10 mg which seemed to subside her nausea after reevaluation. Urinalysis suggestive of UTI. Gave the patient a dose of ceftriaxone [address] of the abdomen pelvis without contrast demonstrates a mild to moderate right sided hydronephrosis and proximal hydroureter the anterior a 9 x 5 mm calculus in the proximal right ureter located approximately 16 cm from the ureterovesicular junction. I spoke with urologist Dr. Dent who recommended admission for the patient as well as further coverage for her UTI with 120 mg of gentamicin as well as blood cultures and lactate. He also wants her n.p.o. after midnight for possible planned procedure tomorrow with stent placement. I then spoke with the hospitalist who accepted her for admission and further management and surgical clearance. Assessment/Plan 1. GIOVANNY (acute kidney injury) (N17.9: Acute kidney failure, unspecified) 2. Nausea (R11.0: Nausea) 3. Abdominal pain (R10.9: Unspecified abdominal pain) 4. Hyperglycemia (R73.9: Hyperglycemia, unspecified) 5. UTI (urinary tract infection) (N39.0: Urinary tract infection, site not specified) 6. Hypertensive crisis (I16.9: Hypertensive crisis, unspecified) 7. Kidney stone on right side (N20.0: Calculus of kidney) 8. Hydronephrosis, right (N13.30: Unspecified hydronephrosis) Orders: ceftriaxone + Sodium Chloride 0.9% intravenous solution 50 mL, 1,000 mg = 1 EA, IV Piggyback, Once, Stop date 02/19/24 17:54:00 EDT, STAT, Start date 02/19/24 17:54:00 EDT, 100 mL/hr, Infuse over 30 minute(s), 02/19/24 17:54:00 EDT gentamicin + Sodium Chloride 0.9% intravenous solution 50 mL, 120 mg = 3 mL, Inject (more content not included)... Normal [facility] Comment on above: Result Comment: Elec tronically Signed By: Cj CASTANEDA, Luis Otto\.br\Date and Time Signed: 02/19/24 20:04 EDT\.br\Electronically Co-Signed By: Rose Alvarado M.D.\.br\Date and Time Co-Signed: 02/20/24 07:08 EDT HEMATOLOGYOrdered By: SYSTEM SYSTEM on 02-20-2024 Monocytes/100 WBC (Bld) 7.1 % Normal 4.0 - 14.0 % Remisol Heme Main OR Intraoperative Recor don 02-20-2024 Main OR Intraoperative Record IntraOp Document Type FT Summary Primary Physician: Glynn DENT MD Finalized Date/Time: 02/20/24 13:31:52 Pt. Name: SHAHANA GRACE /Sex: 1950 Female Med Rec #: [id number] Physician: Glynn ALARCON DO Financial #: [id number] Pt. Type: I Room/Bed: [place] [address] Admit/Disch: 02/19/24 13:27:15 - Institution: Case Times FT Entry 1 Patient Times In Room 02/20/24 10:16:00 Out Room 02/20/24 10:45:00 Procedure Times Start 02/20/24 10:29:00 Stop 02/20/24 10:37:00 Anesthesia Times Start 02/20/24 10:16:00 Stop 02/20/24 10:45:00 Last Modified By: Franklin MARCUM, Shara Muñiz 02/20/24 13:29:15 Case Attendance FT Entry 1 Entry 2 Entry 3 Case Attendee MD Ingrid, Jossy DENT MD, Glynn Reid RN, Shara Muñiz Role Performed Anesthesiologist of Surgeon - Primary Pulley Man - Primary Record Time In 02/20/24 10:16:00 02/20/24 10:16:00 02/20/24 10:16:00 Time Out 02/20/24 10:45:00 02/20/24 10:45:00 02/20/24 10:45:00 Procedure CYSTOSCOPY STENT CYSTOSCOPY STENT CYSTOSCOPY STENT INSERTION INSERTION INSERTION Comments Last Modified By: Franklin MARCUM, Shara Reid RN, Shara Reid RN, Shara Muñiz 02/20/24 Celia P 02/20/24 Celia P 02/20/24 13:29:15 13:29:15 13:29:15 Entry 4 Entry 5 Entry 6 Case Attendee Isaias KIDD, Aspen Person, Nael Garg RT(R), Fallon Role Performed Scrub - Primary PRINCIPAL SYSTEMS ENGINEER Operator Maintainer Time In 02/20/24 10:16:00 02/20/24 10:16:00 02/20/24 10:16:00 Time Out 02/20/24 10:45:00 02/20/24 10:45:00 02/20/24 10:45:00 Procedure CYSTOSCOPY STENT CYSTOSCOPY STENT CYSTOSCOPY STENT INSERTION INSERTION INSERTION Comments Last Modified By: Franklin MARCUM, Shara Reid RN, Shara Reid RN, Shara Muñiz 02/20/24 Celia Muñiz 02/20/24 Celia Muñiz 02/20/24 13:29:15 13:29:15 13:29:15 Perioperative Protocols FT Pre-Care Text: Implements protective measures prior to operative or invasive procedure, confirms identity before the operative or invasive procedure, verifies operative procedure, surgical site, and laterality Entry 1 Procedure(s) CYSTOSCOPY STENT Patient Identity Birthday, ID Band INSERTION Verified (select at Check, Patient least 2): Participation Consents / H and P Anesthesia Consent, Operative Site N/A Verified HandP, Surgery/Procedure Marking Verified Consent Surgical Site Yes Laterality Verified Yes Verified Procedure Verified Yes Correct Patient Yes Position Verified Availability Equipment, Implant, Prep Dry n/a Verified (If Medication, X-ray Applicable) PreOp Antibiotic Yes Time Out JAILENE CHISHOLM, Glynn Mcdermott, Given Participants MD Ingrid, Franklin Figueroa RN, Shara Muñiz, Isaias KIDD, Naya Qureshi Alejandro, Christman RT(R), Fallon Time Out Complete 02/20/24 10:29:00 Outcomes Met? Yes Last Modified By: Franklin MARCUM, Shara Muñiz 02/20/24 13:31:42 Post-Care Text: The patient is free from signs and symptoms of injury caused by extraneous objects Allergy Information FT Pre-Care Text: Verifies allergies Entry 1 Allergies Reviewed? Yes Allergies Reviewed Self/Patient With Outcomes Met? Yes Last Modified By: Franklin MARCUM, Shara Muñiz 02/20/24 11:11:23 Post-Care Text: The patient received appropriate medication(s) safely administered during the perioperative period Surgical Procedures FT Entry 1 Procedure Description Procedure CYSTOSCOPY STENT Surgeon Description CYSTOSCOPY, BILATERAL INSERTION RETROGRADE PYELOGRAM, RIGHT STENT INSERTION Primary Procedure Yes Primary Surgeon Glynn DENT MD Start 02/20/24 10:29:00 Stop 02/20/24 10:37:00 Anesthesia Type General Surgical Service Urology Wound Class 2 - Clean-Contaminated Last Modified By: Shara Reid RN 02/20/24 13:29:28 General Case Data FT Pre-Care Text: Classifies surgical wound, implements aseptic technique, initiates traffic control Entry 1 Case Information OR OR 1 FT Case Level Level 3 Wound Class 2 - Clean-Contaminated Specialty Urology Preop Diagnosis Obstructing right Postop Same As Preop Yes ureteral calculi, Right hydronephrosis, GIOVANNY, Left flank pain. Postop Diagnosis Obstructing right Outcomes Met? Yes ureteral calculi, Right hydronephrosis, GIOVANNY, Left flank pain. Last Modified By: Shara Reid RN 02/20/24 11:23:08 Post-Care Text: The patient is free from signs and symptoms of infection Skin Assessment (Pre Procedure) FT Pre-Care Text: Implements protective measures to prevent skin/ tissue injury due to thermal or mechanical sources Evaluates for signs and symptoms of physical injury to skin and tissue Entry 1 Skin Integrity Intact, [place], Warm, and Skin Abnormality No Dry Outcomes Met? Yes Last Modified By: Shara Reid RN 02/20/24 11:11:55 Post-Care Text: The patient is free from signs and symptoms of injury caused by extraneous objects Patient Positioning FT Pre-Care Text: Identi (more content not included)... Normal [facility] Main OR PACU I Recordon 01-29 Main OR PACU I Record PACU Phase I Document Type FT Summary Primary Physician: Glynn DENT MD Finalized Date/Time: 02/20/24 11:40:13 Pt. Name: SANJAYSHAHANA/Sex: 1950 Female Med Rec #: [id number] Physician: Glynn ALARCON DO Financial #: [id number] Pt. Type: I Room/Bed: [facility] Admit/Disch: 02/19/24 13:27:15 - Institution: Case Times PACU I FT Pre-Care Text: Identifies barriers to communication and implements measures to provide psychological support Develops individualized plan of care, and ensures continuity of care Maintains patient's dignity and privacy, and maintains patient confidentiality Identifies and reports philosophical, cultural, and spiritual beliefs and values Identifies individual values and wishes concerning care Implements aseptic technique, and administers prescribed antibiotic therapy and immunizing agents as ordered Evaluates postoperative tissue perfusion Implements thermoregulation measures, and monitors body temperature Evaluates postoperative respiratory status Evaluates postoperative cardiac status Evaluates postoperative neurological status Assesses pain control, collaborated in initiating patient-controlled analgesia and implements alternative methods of pain control Verifies allergies, administers prescribed medications and solutions, evaluates response to medications Entry 1 In PACU I 02/20/24 10:47:00 Discharge from PACU 02/20/24 11:17:00 I Outcomes Met? Yes Last Modified By: Fannie Marcos RN 02/20/24 11:39:56 Post-Care Text: The patient demonstrates knowledge of the expected response to the operative or invasive procedure The patient's care is consistent with the individualized perioperative plan of care The patient's right to privacy is maintained The patient's value system, lifestyle, ethnicity, and culture are considered, respected, and incorporated into the perioperative plan of care The patient participates in decisions affecting his or her perioperative plan of care The patient is free from signs and symptoms of infection The patient has wound/tissue perfusion consistent with or improved from baseline levels established preoperatively The patient is at or returning to normothermia at the conclusion of the immediate postoperative period The patient's respiratory function is consistent with or improved from baseline levels established preoperatively The patient's cardiovascular status is consistent with or improved from baseline levels established preoperatively The patient's cardiovascular status is consistent with or improved from baseline levels established preoperatively The patient demonstrates and/or reports adequate pain control throughout the perioperative period The patient received appropriate medication(s), safely administered during the perioperative period Acuity Level PACU I FT Entry 1 Start Time 02/20/24 10:47:00 Stop Time 02/20/24 11:17:00 Acuity Level Acuity Level I Last Modified By: Fannie Marcos RN 02/20/24 11:40:09 Finalized By: Fannie Marcos RN Document Signatures Signed By: Fannie Marcos RN 02/20/24 11:40 Normal [facility] Main OR Preoperative Recordo n 02-20-2024 Main OR Preoperative Record Holding Area Document Type FT Summary Primary Physician: Glynn DENT MD Finalized Date/Time: 02/20/24 13:32:52 Pt. Name: SANJAY SHAHANA Echavarria/Sex: 1950 Female Med Rec #: [id number] Physician: Glynn ALARCON DO Financial #: [id number] Pt. Type: I Room/Bed: N305/01 Admit/Disch: 02/19/24 13:27:15 - Institution: Case Times Holding FT Pre-Care Text: Verifies consent for planned procedure, identifies individual values and wishes concerning care, includes family members in perioperative teaching Secures patient's records' belongings, and valuables, maintains patient's dignity and privacy, and maintains patient confidentiality Entry 1 In Holding 02/20/24 09:30:00 Outcomes Met? Yes Last Modified By: Shara Reid RN 02/20/24 13:32:49 Post-Care Text: The patient participates in decisions affecting his or her perioperative plan of care The patient's right to privacy is maintained Surgery Checklist FT Entry 1 Patient Birthday, ID Band Procedure History and Physical, Identification: Check, Patient Verification: Surgical Consent, With Participation Patient NPO after Midnight: Yes Date/Time: 02/20/24 09:30:00 Complaints of Pain: No Operative Site n/a Marking: Availability Equipment, Implants, Verified: X-Ray Patient states Yes Comment - Adult INPATIENT postop adult Supervision supervision available Case Cancelled in No Holding Area see comments below for reason Last Modified By: Shara Reid RN 02/20/24 13:32:42 Finalized By: Shara Reid RN Document Signatures Signed By: Shara Reid RN 02/20/24 13:32 Normal [facility] Monitor Recordon 02-20-2024 Monitor Record [id number]# 1.00TIFF Normal [facility] Monitor Record [id number]# 1.00TIFF Normal [facility] Monitor Record [id number]# 1.00TIFF Normal [facility] Monitor Record [id number]# 1.00TIFF Normal [facility] Monitor Record [id number]# 1.00TIFF Normal [facility] Monitor Record [id number]# 1.00TIFF Ashwini [facility] Operative Reporton Operative Report Patient: SHAHANA GRACE Age: 74 years Sex: Female : 1950 Associated Diagnoses: None Author: Glynn DENT MD Postoperative Information Procedure: 1. Cystoscopy. 2. Bilateral retrograde pyelogram. 3. Placement of 6 Bahamian variable length right ureteral stent. #4. Extraction of ureteral calculus fragment with flexible grasping forceps. Date/ Time: 02/20/2024 10:49:00 Preoperative Diagnosis: Obstructing right ureteral calculi. Right hydronephrosis. GIOVANNY. Left flank pain. Postoperative Diagnosis: same, Same as preop diagnosis but no evidence of left ureteral calculi or hydronephrosis.. Procedure: Anesthesia Method: General. Performed by: Glynn Dent MD. Findings: 1. Distal right ureteral calculi. 2. No evidence of left ureteral calculi. 3. Cystitis. Specimens Removed: Stone fragment from right ureter sent for stone analysis. Prosthesis: 6 Bahamian variable length right ureteral stent. . Estimated Blood Loss: 5 ml. Orders Complications: None. Notes: Indications: This lady has a significant right ureteral stone burden with ipsilateral hydronephrosis and GIVOANNY. She also has left-sided flank pain. She now presents for cystoscopy, bilateral retrograde pyelogram. Right stent placement and possible left stent placement. She has signed an informed consent for these procedures after risks were explained. Procedure: The patient was brought to the operating room and placed on the operating room table in the supine position. SCDs were placed on her lower extremities and turned on and functioning during the entire case. Timeout was done by all parties in the room. We all agreed upon the patient's identification and the planned procedures for this patient. General anesthesia was then administered via LMA. She was then repositioned into the modified dorsolithotomy position. All pressure points were satisfactorily padded. Genitalia were sterilely prepped and draped in the usual fashion. I started by passing 2% lidocaine gel per urethra. A 22 Bahamian Stortz cystoscope was passed per urethra and into the bladder. Careful panendoscopy in the bladder revealed diffuse cystitis with copious inflammatory debris on the base of the bladder. This was irrigated out. There was no evidence of any tumors or stones within the bladder. I then passed a 8 Bahamian cone-tip catheter through the scope and cannulated the right ureter. Contrast was injected in a retrograde manner. I could see persistent filling defects in the distal third of the right ureter. A scant amount of contrast ascended beyond the obstructing distal ureteral calculi. I could feel the stones with the tip of the cone-tip catheter. I was able to jar 1 loose and it rolled down into the bladder. This was extracted with a grasping forceps and sent for stone analysis. I then did a left retrograde pyelogram and this was entirely normal. I then passed a Glidewire through the scope and cannulated the right ureter. I was able to get the wire beyond the stones into the kidney. I then slid a 6 Bahamian variable length ureteral stent over the wire up the ureter and into the kidney. The wire was removed and there were good curls in the kidney and in the bladder. The bladder was drained of its contents and the scope was then removed. She [facility] then [facility] and wheeled to PACU in stable condition. Considering how irritated her bladder appeared, she may require Diflucan postoperatively considering she had budding yeast on her UA through the ER and that she also had fungemia during her last hospitalization.. Anesthesia type: General. Normal [facility] Comment on above: Result Comment: Elec tronically Signed By: JAILENE CHISHOLM, Glynn Neff.hector\Date and Time Signed: 02/20/24 10:57 EDT XR Chest 2 Viewson 4 XR Chest 2 Views Exam Date/Time: 02/19/2024 15:33 EDT Reason for Exam: Abdominal pain;Other (please specify) Report IMPRESSION: NO RADIOGRAPHIC EVIDENCE OF ACUTE INTRATHORACIC PROCESS. EXAMINATION: XR Chest 2 Views HISTORY: Abdominal pain TECHNIQUE: Frontal and lateral views of the chest. COMPARISON: 08/05/2023 FINDINGS: Evidence prior thoracic surgery. Cardiomediastinal silhouette is within normal limits. No pneumothorax, pleural effusion, or consolidation. Hyperinflation of the lungs and increased bronchovascular markings suggesting COPD. No acute osseous abnormality. Ordering Provider: Luis Corona FINAL REPORT Dictated: 02/20/2024 8:29 am Delfino Carrasco DO Signed (Electronic Signature): 02/20/2024 8:29 am Signed by: Delfino Carrasco DO Transcribed by: KAMINI Technologist: CC Technical Comments Radiation Dose: Ka,r in mGy = na DAP = na Normal [facility] XR Urography Retrograde Bila rehanaalon 02-20-2024 XR Urography Retrograde Bilateral Exam Date/Time: 02/20/2024 10:46 EDT Reason for Exam: Kidney stone Report XR Urography Retrograde Bilateral : 02/20/2024 9:22 AM CLINICAL HISTORY: Kidney stone. COMPARISON: None available. Intraoperative fluoroscopy was provided for Dr. Dent' procedure. Air kerma mGy: 4.8; fluoroscopy time: 1 minute; dose area product: 1080.56 uGym2 No diagnostic images were obtained. Please see Dr. Dent' surgical notes for complete details. Ordering Provider: Glynn DENT FINAL REPORT Dictated: 02/20/2024 1:46 pm Delfino Carrasco DO Signed (Electronic Signature): 02/20/2024 1:46 pm Signed by: Delfino Carrasco DO Transcribed by: KAMINI Technologist: CC Technical Comments Radiation Dose: Ka,r in mGy = 12.80 DAP = 1080.56 Normal [facility] eGFRon 02-20-2024 eGFR 24 mL/min/1.73 m2 Low >=59 [facility] Comment on above: Order Comment: Order added by Discern Expert. Performed By: #### 1 [id number] #### [facility] [address] [place] [address] PARNASSUS CAMPUSon 02-19-2024 Anion gap [Moles/Vol] 17 mmol/L High 6-16 [facility] Comment on above: Performed By: #### 2 [id number] #### [facility] [address] [place] [address] Calcium [Mass/Vol] 9.2 mg/dL Normal 8.9-11.1 [facility] Comment on above: Performed By: #### 2 [id number] #### [facility] [address] [place] [address] Chloride [Moles/Vol] 103 mmol/L Normal 101-111 [facility] Comment on above: Performed By: #### 2 [id number] #### [facility] [address] [place] [address] CO2 [Moles/Vol] 25 mmol/L Normal 21-31 [facility] Comment on above: Performed By: #### 2 [id number] #### [facility] [address] [place] [address] Creatinine [Mass/Vol] 2.1 mg/dL High 0.5-1.3 [facility] Comment on above: Performed By: #### 2 [id number] #### [facility] [address] [place] [address] Glucose [Mass/Vol] 559 mg/dL Abnormal 55-199 [facility] Comment on above: Result Comment: Crit ical Result [id number] Called to and read back by: MADELINE FERNANDEZ at: 02/19/2024 14:58:18 by:PETE Critical Result Verified by Repeat Analysis Performed By: #### 2 [id number] #### [facility] [address] [place] [address] Potassium [Moles/Vol] 4.4 mmol/L Normal 3.5-5.3 [facility] Comment on above: Performed By: #### 2 [id number] #### [facility] [address] [place] [address] Sodium [Moles/Vol] 141 mmol/L Normal 135-145 [facility] Comment on above: Performed By: #### 2 [id number] #### [facility] [address] [place] [address] Urea nitrogen [Mass/Vol] 35 mg/dL High 5-21 [facility] Comment on above: Performed By: #### 2 [id number] #### [facility] [address] [place] [address] Urea nitrogen/Creatinine [Mass ratio] 17 No Units Normal 10-20 [facility] Comment on above: Performed By: #### 2 [id number] #### [facility] [address] [place] [address] BOHBOrdered By: SYSTEM SYSTE M on 02-19-2024 Beta HB Qnt 0.72 mmol/L High 0.02 - 0.27 mmol/L [facility] Comment on above: Performed By: #### 2 [id number] #### [facility] [address] [place] [address] CBC w/ Auto Diffon 4 Basophils/100 WBC (Bld) 0.2 % Normal 0.0-2.0 [facility] Comment on above: Performed By: #### 2 000014 #### [facility] [address] [place] [address] Basophils/Leukocytes Auto (Bld) [Pure # fraction] 0.0 E9/L Normal 0.0-0.2 [facility] Comment on above: Performed By: #### 2 [id number] #### [facility] [address] [place] [address] Eosinophils (Bld) [#/Vol] 0.0 E9/L Normal 0.0-0.5 [facility] Comment on above: Performed By: #### 2 [id number] #### [facility] [address] [place] [address] Eosinophils/100 WBC (Bld) 0.0 % Normal 0.0-8.0 [facility] Comment on above: Performed By: #### 2 [id number] #### [facility] [address] [place] [address] Erythrocyte distribution width (RBC) [Ratio] 13.5 % Normal 10.9-14.2 [facility] Comment on above: Performed By: #### 2 [id number] #### [facility] [address] [place] [address] Hematocrit (Bld) [Volume fraction] 54.0 % High 34.0-46.0 [facility] Comment on above: Performed By: #### 2 [id number] #### [facility] [address] [place] [address] Hemoglobin (Bld) [Mass/Vol] 17.8 g/dL High 12.0-16.0 [facility] Comment on above: Performed By: #### 2 076993 #### [facility] [address] [place] [address] Lymphocytes (Bld) [#/Vol] 0.6 E9/L Low 1.0-4.0 [facility] Comment on above: Performed By: #### 2 [id number] #### [facility] [address] [place] [address] Lymphocytes/100 WBC (Bld) 4.0 % Low 14.0-50.0 [facility] Comment on above: Performed By: #### 2 287103 #### [facility] [address] [place] [address] MCH (RBC) [Entitic mass] 30.5 pg Normal 27.0-34.0 [facility] Comment on above: Performed By: #### 2 [id number] #### [facility] [address] [place] [address] MCHC (RBC) [Mass/Vol] 33.0 g/dL Normal 31.4-36.0 [facility] Comment on above: Performed By: #### 2 [id number] #### [facility] [address] [place] [address] MCV (RBC) [Entitic vol] 92.2 fL Normal 80.0-100.0 [facility] Comment on above: Performed By: #### 2 416005 #### [facility] [address] [place] [address] Monocytes (Bld) [#/Vol] 0.8 E9/L Normal 0.2-1.0 [facility] Comment on above: Performed By: #### 2 [id number] #### [facility] [address] [place] [address] Neutrophils (Bld) [#/Vol] 12.9 E9/L High 2.0-7.5 [facility] Comment on above: Performed By: #### 2 706646 #### [facility] [address] [place] [address] Neutrophils/100 WBC (Bld) 90.2 % High 36.0-75.0 [facility] Comment on above: Performed By: #### 2 [id number] #### [facility] [address] [place] [address] Platelet mean volume (Bld) [Entitic vol] 8.2 fL Normal 6.4-10.8 [facility] Comment on above: Performed By: #### 2 055241 #### [facility] [address] [place] [address] Platelets (Bld) [#/Vol] 140.0 E9/L Low 150.0-500.0 [facility] Comment on above: Performed By: #### 2 [id number] #### [facility] [address] [place] [address] RBC (Bld) [#/Vol] 5.9 E12/L Normal 4.3-5.9 [facility] Comment on above: Performed By: #### 2 [id number] #### [facility] [address] [place] [address] WBC corrected for nucl RBC Auto (Bld) [#/Vol] 14.3 E9/L High 4.0-11.0 [facility] Comment on above: Performed By: #### 2 [id number] #### [facility] [address] [place] [address] CHEMISTRYOrdered By: SYSTEM SYSTEM on 02-19-2024 Albumin [Mass/Vol] 4.1 g/dL Normal 3.3 - 5.0 gm/dL R emisol Chem Albumin/Globulin [Mass ratio] 1.2 {ratio} Normal 1.1 - 2.2 Rem[facility] Chem ALP [Catalytic activity/Vol] 82 [iU]/d Normal 21 - 98 Int._Unit/L Remisol Chem ALT No additional P-5'-P [Catalytic activity/Vol] 11 [iU]/d Normal 6 - 46 Int._Unit/L Remisol Chem AST [Catalytic activity/Vol] 11 [iU]/d Normal 5 - 43 Int._Unit/L Remisol Chem Bilirubin [Mass/Vol] 1.1 mg/dL Normal 0.0 - 1.1 mg/dL Remisol Chem Bilirubin.direct [Mass/Vol] 0.2 mg/dL Normal 0.0 - 0.4 mg/dL Remisol Chem Bilirubin.indirect [Mass or moles/Vol] 0.9 mg/dL Normal 0.1 - 0.9 mg/dL Remisol [facility] Globulin (S) [Mass/Vol] 3.3 g/dL Normal 1.4 - 4.0 gm/dL Rem[facility] Lipase [Catalytic activity/Vol] 54 U/L Normal 13 - 58 unit/L [facility] Magnesium [Mass/Vol] 2.2 mg/dL Normal 1.3 - 2.4 mg/dL Remisol Chem Protein [Mass/Vol] 7.4 g/dL Normal 6.0 - 7.8 gm/dL R emisol Chem Troponin HS 45.80 pg/mL Invalid Interpretation Code 10.10 - 27.10 pg/mL [facility] Comment on above: Result Comment: Crit ical Result I_TnIHS:45.8 Called to and read back by: MADELINE FERNANDEZ at: 02/19/2024 14:58:27 by:PETE Critical Result Verified by Repeat Analysis Interpretive Data: Jayme jeff 95% CI (Confidence Interval) PPV (Positive Predictive Value) for myocardial infarction in females is 38 pg/mL, in males 51 pg/mL. The results should be used in conjunction with clinical conditions of myocardial infarction. (Access High Sensitivity Troponin I Instructions For Use, Jairo Elsy, March 2018) COAGULATIONOrdered By: Matt Benitez on 02-19-2024 aPTT Coag (PPP) [Time] 23.4 s Low 25.1 - 36.5 second(s) [facility] [place] [facility] Comment on above: Interpretive Data: Mary Kay guerrier 15 days - 4 weeks 1 - 5 months 6 - 11 months 1 - 5 years 6 - 10 years 11 - 17 years PTT Mean: 35.4 (27.6-45.6) Mean: 33.5 (24.8-40.7) Mean: 32.4 (25.1-40.7) Mean: 31.6 (24.0-39.2) Mean: 31.6 (26.9-38.7) Mean: 31.0 (24.6-38.4) Pediatric Reference ranges were obtained from a study by marva Pino. prepared from 1437 samples obtained at 7 different centers using the same coagulation reagent and instrumentation as [facility] [place] Currently there are no coagulation studies available worldwide for children to 14 days, and no normal ranges. Heparin therapeutic range (represented by Anti-Factor Xa activity of 0.2 - 0.4 U/mL) corresponds to PTT of 56.6 - 109.0 sec. PT Coag (PPP) [Time] 10.4 s Normal 9.4 - 1 2.5 second(s) [facility] [place] [facility] Comment on above: Interpretive Data: 1 5 days - 4 weeks 1 - 5 months 6 -11 months 1-5 years 6-10 years 11 -17 years Mean: 11.2 (9.5-12.6) Mean: 11.0 (9.7-12.8) Mean: 11.0 (9.8-13.0) Mean: 11.3 (9.9-13.4) Mean: 11.7 (10.0-14.6) Mean: 11.8 (10.0 - 14.1) Pediatric Reference ranges were obtained from a study by leila Pino al. prepared from 1437 samples obtained at 7 different centers using the same coagulation reagent and instrumentation as [facility] [place]. Currently there are no coagulation studies available worldwide for children to 14 days, and no normal ranges. Capillary Glucose POCon 01-29 Glucose [Mass/Vol] 436 mg/dL High 55-99 [facility] Comment on above: Result Comment: Sheryl minda Meter Performed By: #### 2 [id number] #### [facility] [address] [place] [address] Glucose [Mass/Vol] 426 mg/dL High 55-99 [facility] Comment on above: Performed By: #### 2 [id number] #### [facility] [address] [place] [address] Glucose [Mass/Vol] 419 mg/dL High 55-99 [facility] Comment on above: Result Comment: Noti fied RN/MD Performed By: #### 2 [id number] #### [facility] [address] [place] [address] Consent for Treatmenton 01-29 Consent for Treatment [id number] .00TIFF Normal [facility] ED Clinical Summaryon 2023 ED Clinical Summary [address] [address] ED Clinical Summary Person Information Name: SHAHANA GRACE [place] Age: 74 Years : 1950 Sex: Female Language: Citizen Of [place] PCP: ALBERTINA ARNDT DO Marital Status: Visit Id: Visit Reason: Polydipsia; Nausea; Hyperglycemia; hyperglycemia Speciality: Acuity: 3 Enc Type: Inpatient Med Service: Emergency Arrival: 02/19/2024 13:27:15 Discharge: LOS: 000 06:38 Checkin: 02/19/2024 13:27:15 Checkout: 02/19/2024 20:05:37 Dispo Type: Admitted as IP to this [facility] EVENTS: Event Name Event Status Request Date/Time Start Date/Time Complete Date/Time Arrive Complete 02/19/2024 13:27:15 02/19/2024 13:27:15 02/19/2024 13:27:15 Document Home Meds Request 02/19/2024 13:27:15 Triage Complete 02/19/2024 13:27:15 02/19/2024 13:38:16 02/19/2024 13:38:16 Bed Assign Complete 02/19/2024 13:28:17 02/19/2024 13:28:17 02/19/2024 13:28:17 Dr Exam Complete 02/19/2024 13:28:17 02/19/2024 13:34:27 02/19/2024 13:34:27 RN Exam Complete 02/19/2024 13:28:17 02/19/2024 13:53:21 02/19/2024 13:53:21 Registration Complete 02/19/2024 13:34:27 02/19/2024 13:53:55 02/19/2024 13:53:55 Dr Exam Complete 02/19/2024 13:42:38 02/19/2024 13:42:38 02/19/2024 13:42:38 Reg Complete Request 02/19/2024 13:53:55 Reg Bed Request Complete 02/19/2024 13:53:55 02/19/2024 13:53:55 02/19/2024 13:53:55 EKG Complete 02/19/2024 14:00:07 02/19/2024 14:20:04 X-Ray Complete 02/19/2024 14:00:07 02/19/2024 15:19:04 02/19/2024 15:33:19 Meds Admin Complete 02/19/2024 14:00:07 02/19/2024 14:16:58 Pending Labs Complete 02/19/2024 14:00:07 02/19/2024 17:21:12 Lab Complete 02/19/2024 14:00:07 02/19/2024 15:05:29 CT Cancel 02/19/2024 14:13:57 02/19/2024 15:06:52 Pending Labs Complete 02/19/2024 14:15:24 02/19/2024 15:47:51 Lab Cancel 02/19/2024 14:15:24 02/19/2024 14:22:34 Pending Labs Complete 02/19/2024 14:21:39 02/19/2024 14:21:39 02/19/2024 14:58:37 Lab Complete 02/19/2024 14:21:39 02/19/2024 14:21:39 02/19/2024 14:58:37 Pending Labs Complete 02/19/2024 14:23:16 02/19/2024 14:23:16 02/19/2024 15:12:51 Lab Complete 02/19/2024 14:23:16 02/19/2024 14:23:16 02/19/2024 14:58:37 CT Complete 02/19/2024 15:06:48 02/19/2024 15:09:26 02/19/2024 15:29:45 Meds Admin Complete 02/19/2024 15:10:58 02/19/2024 15:43:15 Meds Admin Cancel 02/19/2024 15:14:55 02/19/2024 15:21:13 Pending Labs Cancel 02/19/2024 15:23:03 02/19/2024 15:24:08 Pending Labs Complete 02/19/2024 15:24:30 02/19/2024 15:24:30 02/19/2024 15:39:52 Meds Admin Request 02/19/2024 15:32:19 Wet Read Request 02/19/2024 15:33:19 Pending Labs Complete 02/19/2024 16:14:27 02/19/2024 16:14:27 02/19/2024 16:14:28 Pending Labs Complete 02/19/2024 16:58:25 02/19/2024 16:58:25 02/19/2024 16:58:26 Pending Labs Collected 02/19/2024 17:21:13 02/19/2024 17:21:13 Lab Collected 02/19/2024 17:21:13 02/19/2024 17:21:13 Meds Admin Complete 02/19/2024 17:22:34 02/19/2024 17:25:54 Meds Admin Complete 02/19/2024 17:35:02 02/19/2024 17:41:03 Meds Admin Complete 02/19/2024 17:54:39 02/19/2024 19:06:07 NPO Request 02/19/2024 19:14:09 Meds Admin Request 02/19/2024 19:14:09 Pending Labs Request 02/19/2024 19:15:39 Lab Request 02/19/2024 19:15:39 Bed Request Request 02/19/2024 19:31:32 Reg Bed Request Complete 02/19/2024 19:31:32 02/19/2024 19:41:26 02/19/2024 19:41:26 Admit Request 02/19/2024 19:31:32 Patient Care Request 02/19/2024 19:41:26 Patient Care Request 02/19/2024 19:41:26 Patient Care Request 02/19/2024 19:41:26 Patient Care Request 02/19/2024 19:41:26 Medicare Form Request 02/19/2024 19:41:27 Patient Care Request 02/19/2024 19:41:27 Patient Care Request 02/19/2024 19:41:27 Pending Labs Complete 02/19/2024 19:56:25 02/19/2024 19:56:25 02/19/2024 19:56:26 ADDRESS: [address] [place] [phone] PHYS DOC NOTES: MEDICAL INFORMATION: Prescriptions Given: Medications to Continue with No Changes Other Medications atorvastatin (atorvastatin 40 mg Tab) 1 Tablets By Mouth every day. ciprofloxacin (Cipro 500 mg Tab) 1 Tablets By Mouth 2 times a day. Refills: 0. clopidogrel (Plavix 75 mg Tab) Wednesday-. insulin glargine (Basaglar KwikPen 100 units/mL subcutaneous solution) 40 Units Subcutaneous once a day (in the morning). lisinopril (lisinopril 5 mg Tab) 1 Tablets By Mouth 2 times a day. Refills: 0. meclizine (meclizine 12.5 mg Tab) 1 Tablets By Mouth 3 times a day as needed for dizziness. Refills: 0. metformin (metformin 500 mg Tab) 1 Tablets By Mouth 2 times a day. metoprolol (Metoprolol tartrate 50 mg Tab) 1 Tablets By Mouth 2 times a day. Refills: 0. Misc Prescription (Liver panel) 0. Refills: 0. potassium bicarbonate (Klor-Con/EF 25 mEq oral tablet, effervescent) 1 Tablets By Mouth every day. dissolve in 4 ounces of water. Refills: 10. sodium chloride (NS Flush 10 mL) 10 mL IV Pushprior to and after administration of fluconazole and as needed. Refills: 0. solifenacin (Vesicare 10 mg Tab) 1 Tablets By (more content not included)... Normal [facility] ED Patient Education Noteon 02-19-2024 ED Patient Education Note Normal [facility] ED Patient Summaryon 024 ED Patient Summary [place] [address] Patient Discharge Instructions Person Information Name: SHAHANA GRACE Age: 74 Years Arrival Date: 02/19/2024 13:27:15 Discharge Diagnosis: 1:GIOVANNY (acute kidney injury); 2:Nausea; 3:Abdominal pain; 4:Hyperglycemia; 5:UTI (urinary tract infection); 6:Hypertensive crisis; 7:Kidney stone on right side; 8:Hydronephrosis, right Primary Care Physician: ALBERTINA ARNDT DO Provider Information Primary Provider: Rose Alvarado M.D. Advanced Local Flatbed Driver:Luis Corona PA-C The exam and treatment you received in the Emergency Department were for an urgent problem and are not intended as complete care. It is important that you follow up with a doctor, nurse practitioner, or physician?s senior sales assistant for ongoing care. If your symptoms become worse or you do not improve as expected and you are unable to reach your usual health care provider, you should return to the Emergency Department. We are available 24 hours a day. SHAHANA GRACE has been given the following list of patient education materials, prescriptions and follow-up instructions: Follow-up Instructions: In the event that this physician does not participate in your insurance network, please consult with your insurance company to find a nearby participating provider. Patient Education Materials: A MESSAGE TO ALL PATIENTS REGARDING OPIOIDS PRESCRIPTION OPIOIDS: WHAT YOU NEED TO KNOW Prescription opioids can be used to help relieve dhaxpwzi-ze-vjhhek pain and are often prescribed following a surgery or injury, or for certain health conditions. These medications can be an important part of the treatment but also come with serious risks. It is important to work with your healthcare provider to make sure you are getting the safest, most effective care. WHAT ARE THE RISKS AND SIDE EFFECTS OF OPIOID USE? Prescription opioids carry serious risks of addiction and overdose, especially with prolonged use. An opioid overdose, often marked by slowed breathing, can cause sudden . The use of prescription opioids can have a number of side effects as well, even when taken as directed: ? Tolerance?meaning you might need to take more of the medication for the same pain relief ? Physical dependence?meaning you have symptoms of withdrawal when a medication is stopped ? Increased sensitivity to pain ? Constipation ? Nausea, vomiting, and dry mouth ? Sleepiness and dizziness ? Confusion ? Depression ? Low levels of testosterone that can result in lower sex drive, energy, and strength ? Itching and sweating RISKS ARE GREATER WITH: ? History of drug misuse, substance use disorder, or overdose ? Mental health conditions (such as depression or anxiety) ? Sleep apnea ? Older age (65 years and older) ? Avoid alcohol while taking prescription opioids. Also, unless specifically advised by your health care provider, medications to avoid include: ? Benzodiazepines (such as Xanax or Valium) ? Muscle relaxants (such as Soma or Flexeril) ? Hypnotics (such as Ambien or Lunesta) ? Other prescription opioids KNOW YOUR OPTIONS Talk to your health care provider about ways to manage your pain that don?t involve prescription opioids. Some of these options may actually work better and have fewer risks and side effects. Options may include: ? Pain relievers such as acetaminophen, ibuprofen, and naproxen ? Some medication that are also used for depression or seizures ? Physical therapy and exercise ? Cognitive behavioral therapy, a psychological, goal-directed approach, in which patients learn how to modify physical, behavioral, and emotional triggers of pain and stress. IF YOU ARE PRESCRIBED OPIOIDS FOR PAIN: ? Never take opioids in greater amounts or more often than prescribed. ? Follow up with your primary health care provider. o Work together to create a plan on how to manage your pain. o Talk about ways to help manage your pain that don?t involve prescription opioids. o Talk about any and all concerns and side effects. ? Help prevent misuse and abuse o Never sell or share prescription opioids. o Never use another person?s prescription opioids. ? Store prescription opioids in a secure place and out of reach of others (this may include visitors, children, friends, and family). ? Safely dispose of unused prescription opioids: Find your community drug take-back program or your pharmacy mail-back program, or flush them down the toilet, following guidance from the Food and Drug Administration (www.fda.gov/Drugs/Re sourcesForYou). ? Visit www.cdc.gov/drugoverd ose to learn about the risks of opioids abuse and overdose. ? If you believe you may be struggling with addiction, tell your health toddler caregiver and ask for guidance or call SAMHSA?S National Helpline at 3-820-727-HELP. v S (more content not included)... Normal [facility] EMS Documentationon 02-19-20 EMS Documentation Please click on link to see report Normal [facility] Comment on above: Result Comment: Miss ing Attachment - total size limit for all attachments exceeded [email or web address] Can be viewed in source system EMS Documentation Please click on link to see report [id number] CiX5+prnDQolQUJDcGRmI YXrUpI1TUspUICeCB2yvs 8MHDvDL6XpJBVdQOD1Lc1 BTKevZIh8ZBNwGQ1XZ4ja ZUNwQXArEy8PmG8aULFvo zVvFMKIL40vVVbdZqUoKK ldAPGaGSs7VwBXCg6wQVQ gICAgICAgICAgICAgICAg ICAgICAgICAgICAgICAgI CAgICAgICAgICAgICAgIC AgICAgICAgICAgICAgICA gICAgICAgICAgDQplbmRv OhnUFq4AzDLsTz9KJzOmM jUNCjAwMDAwMDAwMzIgMD FaLMHiok7RIBMaOGZhYZZ 1MSAwMDAwMCBuDQowMDAw IXIeBTw4QUGdKKHaVT5JK oIqPUBtNUC2TZAwQDVwPS Fdfy8AVRVcQTMeHFf4ZHX wMDAwMCBuDQowMDAwMDAy SoTsVOTwRVUoGA4BAqBeK DAwMDIyOTUgMDAwMDAgbg 2KSMPjXPYbFvA9UJWeASU wMCBuDQowMDAwMDAyNDI0 NBCtDKNlKE0XVbMbJDCvV AP9BTVjDARhNRGdvy4IAN AwMDAwMjgyOSAwMDAwMCB vIRqkUVEbVTPyAOu3NMSk FVYlRE0TEfZjBKXmNQQ6T tZxVNSaAMDfyy4NSOXwJS AwMzYyMCAwMDAwMCBuDQo wMDAwMDAzODYxIDAwMDAw FG4XElOfLHSkTSOaYXVvZ FTtMDRqcx2NSVHiIJIjGU G8KmHfRQSlDBGqSUcbYVF sIHF3BpO4ECVnRZUhJN6X McZeHKVtEOQ7GULqUSMrZ DKoxh1HCNWyRKJwMSV0KZ AwMDAwMCBuDQowMDAwMDA 3RWV2IHShICBaMB8EAaKf EXCxZBS2OYLmDMYoHKQqy y2IGMKxHEFpCQCiAnXyKQ AwMCBuDQowMDAwMDUwMjQ 5GSIhUHGvIF4EErKkVUCn KIufOJHhGWZnRNMdlj3Tl XCbyMjbmh7HMSqIB7kEVZ g2UYGXDPWILSICKfSRZew zSKS8BJSrOQZXZDIkWDLO MTY+Pxx0KGU6NIidByG8R 2L5GYXLMNA4Uxz7MAPKHi PdKoM6GW4jVu7ZhxK6RUQ 9ZRiaYwiuQl8osPMmJtLs NGUQN8AadcNnNVPVP1Tup FDvIGNkP1KUAIA7Uk05Qf ttfOyNNJV9VMFMZUxrWP2 ZMreJOgMjAAlcMf61K3IE y4G8NoEqI1HLiMnGcwNEF AjeT6sBvPO0p5oygFiZtB NGbXlkOGdJcndPalFSQUl eIWKVqR60aiyQE6IaFGh9 Q4IDJx0GEQylPvOzeM8Ty WieOXD1qH1sGYTSDNdYYz czXZ6LIJRFOBz9LPw+Astrid gICAgICAgICAgICAgICAg ICAgICAgICAgICAgICAgI CAgICAgICAgICAgICAgIC AgICAgICAgICAgICAgICA gICAgICAgICAgICAgICAg ICAgICAgICAgICAgICAgI CAgICAgICAgICAgICAgIC AgICAgICAgICAgICAgICA gICAgICAgICAgICAgICAg ICAgICAgICAgICAgICAgI CAgICAgICAgICAgICAgIC AgICAgICAgICAgICAgICA gICAgICAgICAgICAgICAg ICAgICAgICAgICAgICAgI CAgICAgICAgICAgICAgIC AgICAgICAgICAgICAgICA gICAgICAgICAgICAgICAg ICAgICAgICAgICAgICAgI CAgICAgICAgICAgICAgIC AgICAgICAgICAgICAgICA gICAgICAgICAgICAgICAg ICAgICAgICAgICAgICAgI CAgICAgICAgICAgICAgIC AgICAgICAgICAgICAgICA gICAgICAgICAgICAgICAg ICAgICAgICAgICAgICAgI CAgICAgICAgICAgICAgIA 7Qy7KatjR3ndOxXYowCUk iYHLFQt7MPXgaUoZvKY1z vb2CYDqIM87gsORnCPBjI IOyOFReLpzgF3BtzfLdvA fbxgXdNnPqPFGJTc7XfGF RKYeeL6L6cWnuJXSeLKwd AOUWUy3VVZsqJT7yCHGkF HUjCg6oAXodVYTuZXIwHJ rfGPRJUx5RmTFpIP3XTSX wfG7fBc9+DQplbmRvYmoN Vw2RQvGjVFYvHzqBLaj0M c2AgLr7ZGNkI0PtYSVqKL Zzy7OgOt8XFI5ocYeaKOW cKp4GAPAoESh+Hb4Dp7Hk ENMbBLt5rQByEDGtOMHsY dJbRPDhSUZxxGNFKXU7DH UvHBkvdHRExB9YkVEEYLd AlOdlYHyWDaTFgFgaLKIL xadUcPGwRKSy3fQ1XJZrX YMcEKL4iVEkRY4N5njXof 9QDhGw79T6B2kChtaP9Yr WHJs1A3SzNmbMiYASjKFM JsXbJQ7lmkInQ3NeHswZD P7aSKgQCoYzGPJ2haNhoX 4AMO5qz0KgEQxVBpP8PNN qk2DaUNt6ONtnZ96shWDb uNYgGrJrIVCbKa7AT76kY CthKu76QCgcCVLqCqOsWI o9As7ZM7NyraYztPAzLEC jWTUWE0Fdy226duKgveT6 GKduTA8pzcFkvSC0RXdjE WFiYzYgMjUgMCBSCj4+Cj 4+Kn6JdMNbLN6HLDsxCx8 +XVxpnfJuDhtAMd8ZWmJw DIJmKvyNVqj9Tw6FBc49A AiiHAJlZtEtFTw5Au5LK8 ZpbHRlciAvRmxhdGVEZWN yEMNYH2ztwhs6yVZ2Lhvc VgGpt4PfA3JaHAy4So6ST 2RvXMF3CYb6Sp3CTFWcEs C6HeGbQIGLIp5GEu0AP8A 8RuQ9oONaN3Frne8WH9Q1 nNDuL3sIWagyI1IIKb9VM zB4eoQtvW4QtVegyvEjUj TlMjRQMFUwtTRSMLcwUih U9eQQP6mj9GTVe2YpJnDQ CMYFAZbf4CyVaGX0v1eZ4 vCwYiiWvYSzkfaUi1lDiK 2IL7tU7P5WIS3pg8VaSMX tXTrvboOqCgkUYc3EPwEt ZJGcOntOCbz5Sr4KJXAwY j1goGFlKu4AEFCuNv4CTq IhGa8UTtHhCs0LTcVaHq0 FRTD6Mj3JDWS1yoAlOm4v YSAxCj4+DQplbmRvYmoNC p5BTjbdLSRrGufSHgg2Ww 5EZGPaPi0hwFNhTd0sYCO xCj4+KBdyqwUkEgaOSb3J UwbrDXLpAgmJWwy7Pc5KB EGdAz0lkUHvFr1SVSZjOo 3GRsGhVg1RYkFaLr1TSkR pQc3NZEN7Ro7TRLY8hbMn Wx2fYRVnLh3+DQplbmRvY xxYPt9WIgioTTKyVsoSQc z5Gj6MJKQyUf4ruWUxM8G TOQ3NZ6HjcSFgEOFNPNaM Uz1Fq2vdXTLTI6Bhi8Zba sTlprUHw289ruTqPmXtNI JHEGefQP7in9JcxebzO1c rEK12jKU4WZkYQ8V2HpS8 tUBiU1S4zKNfSw3Fb9Djj HVfRUGaZnWmORLDHz0QvA XiIA8Em411Za7+DQplbmR bQquZSa6PEeGlXLJfZhzH Mlq8Hx4QUQVvDq1gvVRxA 0EIUE2BX1NkmFJhHOUROL pPLy5Xc8tnOFWLK9DZOEU 7u4XhyOgbVy6bBVdIH67m WJUhjO8nXNtBMSEhzSu6j FbHU1LeI2dmuMN6VGbJAW 3cXTpGC5I4uTKeGR2swcP gMAo+JiqjK7lTDW4RVCLB WFXvH9aqMI98qCT9Wp2VO jMrEw2Ms294JPNqD8ItuU YoffSkUOJgWPMJA6N5GwH 3sYQaQ5KLLSHetjFDrMEn HoxoQDueVKAvYz3beBunI eHsEVC2ZpQ8WLZvMDb5Dx ZdCj4+DQplbmRvYmoNCg0 WJqQiUXEeYfgTKyt5Fu8Q s7LgemAdJDLvIyXnKNUuM j6SRKBPLTytkVDrNRqkEw a1Nev4Zv2YFKLqXZ55LJW zXO2yYWP1NfobAekqO1Bs RgEJW0VpnyCMTq83DDenV OxzGvj2BRZjEJ41ZNAtWQ F4RnIpOaXsAcX2JQO1XPQ tXzXpZTrhVTNuXw8Jh002 JyuzLTHnREWdBUUHIi4Uj 971KtAfIOHrF5LURF4II6 TstEXiGLTIGVdQEt4Jz1y bRVRMD6k6QElpS2SmX8yj MGMZR9Z0HK6KXUw2RrT1T Ij4Tw2JvYMhBI8Di984WX WbI2YorYVbexo+Oz3JXQ0 oj6VjTDdSOgGgQZSeu7Hu XDx3SVtpCzvoxZVqXB9Wu XT6KUCrL42xRLyvTXAhK1 KxAPD6Cjg+Nf3Sw5PxVCV zUPp7kG1Xz12FYQXP1/6K HhwSBJXp9eJu4tHOCXaCq O1I0EQ6MDpeqCP/XzNDE6 cQSXqh884GaSRtr0Y0QFT 3P6oGA/TGao/TePMKocOr iQYPgG4LB5UtQf3TXCI17 xRwqG0/xnZOWE2sphq+hs 1Bjx0+ieTNa/TGXmHzdWo iNzfnfnBAGyAVVQUa+5j0 0rrXdkBIyLatdeybMG+j5 3M9mF9UMB56CtMneXwv7J m3yrLG85oxtJVNIuY5E39 bG1gx26mYGl/qNJVpRbRn eywhFHvgZRbLgLtt5QWn/ 5f3+CbBHBos4MIeYfoapD ji+CHUj3IPRWyeNIjAcat WiUEUDYvCcV8X7x54akRY LH++3CY1acfkimzlRQZxk lmisXi/yZb9qbY9i3c2tQ lNLyYlFXH3ucMtlG7XWJ9 dg6XmHLlVObKwQTDud9Py UTb5SLbmZxDiBVGjjyQlW 9tJFmOYKHfBr0GxgFGdCr Y1NYHGDGycLCNmS7FaQOA udEZvbnRzIFszNCAwIFJd Ec3DwpZaLQkcEnMbSJEin eXesHuaYSqjY6BqcDvpPK GpJVwiCVDNA6CkDH5xB31 dQRYyHaHhGDBTB5G6dHPf V8LmbgCRPm1DAzJhYY5nq m5NNXquWPBeWR4ydi5IQI oWQ0Zry1JJv813VU3CFAE QHE4cN636jzpxce5cn7AB MZYKT8BPMWX2z0EjhNefE b2vKYjXF21sMFZtkP8uFU lKBHWcqMe3zYqCY9VeK3h ztUS1QS (more content not included)... Normal [facility] Hep Func Panelon 02-19-2024 Albumin [Mass/Vol] 4.1 g/dL Normal 3.3-5.0 [facility] Comment on above: Performed By: #### 2 [id number] #### [facility] [address] [place] [address] Albumin/Globulin (S) [Mass conc ratio] 1.2 Normal 1.1-2.2 [facility] Comment on above: Performed By: #### 2 [id number] #### [facility] [address] [place] [address] ALP [Catalytic activity/Vol] 82 Int._Unit/L Normal 21-98 [facility] Comment on above: Performed By: #### 2 [id number] #### [facility] [address] [place] [address] ALT No additional P-5'-P [Catalytic activity/Vol] 11 Int._Unit/L Normal 6-46 [facility] Comment on above: Performed By: #### 2 [id number] #### [facility] [address] [place] [address] AST [Catalytic activity/Vol] 11 Int._Unit/L Normal 5-43 [facility] Comment on above: Performed By: #### 2 [id number] #### [facility] [address] [place] [address] Bilirubin [Mass/Vol] 1.1 mg/dL Normal 0.0-1.1 [facility] Comment on above: Performed By: #### 2 [id number] #### [facility] [address] [place] [address] Bilirubin.direct [Mass/Vol] 0.2 mg/dL Normal 0.0-0.4 [facility] Comment on above: Performed By: #### 2 [id number] #### [facility] [address] [place] [address] Bilirubin.indirect [Mass or moles/Vol] 0.9 mg/dL Normal 0.1-0.9 [facility] Comment on above: Performed By: #### 2 [id number] #### [facility] [address] [place] [address] Globulin (S) [Mass/Vol] 3.3 g/dL Normal 1.4-4.0 [facility] Comment on above: Performed By: #### 2 [id number] #### [facility] [address] [place] [address] Protein [Mass/Vol] 7.4 g/dL Normal 6.0-7.8 [facility] Comment on above: Performed By: #### 2 [id number] #### [facility] [address] [place] [address] Laboratory - Microbiology an d Antimicrobial susceptibilityOrdered By: Awilda Pritchard on 02-19-2024 Bacteria identified Cx Nom (U) <10,000 cfu/ml Mixed skin contaminants [facility] Lactic AcidOrdered By: Whiphand on 02-19-2024 Lactic Acid Lvl 1.5 mmol/L Normal 0.5 - 2.2 mmol/L Rem isol Chem Comment on above: Performed By: #### 2 [id number] #### [facility] [address] [place] [address] Lipase Levelon 02-19-2024 Lipase [Catalytic activity/Vol] 54 U/L Normal 13-58 [facility] Comment on above: Performed By: #### 2 [id number] #### [facility] [address] [place] [address] Magnesiumon 02-19-2024 Magnesium [Mass/Vol] 2.2 mg/dL Normal 1.3-2.4 [facility] Comment on above: Performed By: #### 2 [id number] #### [facility] [address] [place] [address] Message from Medicareon 01-29 Message from Medicare [id number]# 1.00TIFF Normal [facility] Message from Medicare [id number]# 1.00TIFF Normal [facility] Monitor Recordon 02-19-2024 Monitor Record [id number]# 1.00TIFF Normal [facility] No Panel InformationOrdered By: [facility] on 02-19-2024 Blood Culture Charcoal No growth at 4 days. Final to follow at 7 days. [facility] PT & PTTon 02-19-2024 aPTT Coag (PPP) [Time] 23.4 second(s) Low 25.1-36.5 [facility] Comment on above: Result Comment: Para meter 15 days - 4 weeks 1 - 5 months 6 - 11 months 1 - 5 years 6 - 10 years 11 - 17 years PTT Mean: 35.4 (27.6-45.6) Mean: 33.5 (24.8-40.7) Mean: 32.4 (25.1-40.7) Mean: 31.6 (24.0-39.2) Mean: 31.6 (26.9-38.7) Mean: 31.0 (24.6-38.4) Pediatric Reference ranges were obtained from a study by Chris Hollins et al. prepared from 1437 samples obtained at 7 different centers using the same coagulation reagent and instrumentation [place] [facility] [place] Currently there are no coagulation studies available worldwide for children to 14 days, and no normal ranges. Heparin therapeutic range (represented by Anti-Factor Xa activity of 0.2 - 0.4 U/mL) corresponds to PTT of 56.6 - 109.0 sec. Performed By: #### 1 [id number] #### [facility] [address] [place] [address] PT Coag (PPP) [Time] 10.4 second(s) Normal 9.4-12.5 [facility] Comment on above: Result Comment: 15 d ays - 4 weeks 1 - 5 months 6 -11 months 1- 5 years 6-10 years 11 -17 years Mean: 11.2 (9.5-12.6) Mean: 11.0 (9.7-12.8) Mean: 11.0 (9.8-13.0) Mean: 11.3 (9.9-13.4) Mean: 11.7 (10.0-14.6) Mean: 11.8 (10.0 - 14.1) Pediatric Reference ranges were obtained from a study by Chris Hollins et al. prepared from 1437 samples obtained at 7 different centers using the same coagulation reagent and instrumentation [place] [facility] [place] Currently there are no coagulation studies available worldwide for children to 14 days, and no normal ranges. Performed By: #### 1 [id number] #### [facility] [address] [place] [address] PT & PTTOrdered By: Elena Benitez on 02-19-2024 INR Coag (PPP) [Relative time] 0.93 {INR} Invalid Interpretation Code [facility] [place] Auto Coag Comment on above: Result Comment: INR results are specifically intended to assess patients stabilized on long-term Anticoagulation therapy suggested INR?s ?Less Intensive Anticoagulation? 2.0 ? 3.0 Conventional Range 3.0 ? 4.5 Performed By: #### 1 [id number] #### [facility] [address] [place] [address] Interpretive Data: I NR results are specifically intended to assess patients stabilized on long-term Anticoagulation therapy suggested INR s Less Intensive Anticoagulation 2.0 3.0 Conventional Range 3.0 4.5 Pre-Arrival Noteon Pre-Arrival Note Normal [facility] Progress Note-Nurseon 2023 Progress Note-Nurse spoke with PASCUAL Smith about pt's blood sugar and BP. Per Luis, wait 15-20 mins and check BP again after stopping fluids Normal [facility] RAD - Preliminary Cat Scan R eporton 02-19-2024 RAD - Preliminary Cat Scan Report [id number]#1 .00TIFF Normal [facility] Troponin 0 Hr.on 02-19-2024 Troponin HS 45.80 pg/mL Abnormal 10.10-27.10 [facility] Comment on above: Result Comment: Crit ical Result I_TnIHS:45.8 Called to and read back by: MADELINE FERNANDEZ at: 02/19/2024 14:58:27 by:PETE Critical Result Verified by Repeat Analysis The 95% CI (Confidence Interval) PPV (Positive Predictive Value) for myocardial infarction in females is 38 pg/mL, in males 51 pg/mL. The results should be used in conjunction with clinical conditions of myocardial infarction. (Access High Sensitivity Troponin I Instructions For Use, [employer], March 2018) Performed By: #### 1 [id number] #### [facility] [address] [place] [address] Troponin 1 Hr.Ordered By: [employer] on 02-19-2024 Troponin HS 42.60 pg/mL Invalid Interpretation Code 10.10 - 27.10 pg/mL Remisol Chem Comment on above: Order Comment: 1446 Result Comment: Crit ical Result Verified by Previous Result Critical Result I_TnIHS:42.6 Called to and read back by: TOÑO HOFFMAN at: 02/19/2024 15:47:46 by:AG The 95% CI (Confidence Interval) PPV (Positive Predictive Value) for myocardial infarction in females is 38 pg/mL, in males 51 pg/mL. The results should be used in conjunction with clinical conditions of myocardial infarction. (Fits[employer]me High Sensitivity Troponin I Instructions For Use, [employer], March 2018) Performed By: #### 1 [id number] #### [facility] [address] [place] [address] Result Comment: Crit ical Result Verified by Previous Result Critical Result I_TnIHS:42.6 Called to and read back by: TOÑO HOFFMAN at: 02/19/2024 15:47:46 by:AG Interpretive Data: T he 95% CI (Confidence Interval) PPV (Positive Predictive Value) for myocardial infarction in females is 38 pg/mL, in males 51 pg/mL. The results should be used in conjunction with clinical conditions of myocardial infarction. (Fits[employer] High Sensitivity Troponin I Instructions For Use, [employer], March 2018) UA with Cult [employer]xon 02-19-20 24 Bacteria Auto Ql (U) 1+ /HPF Abnormal Trace Fish [facility] Comment on above: Performed By: #### 4 [id number] #### [facility] [address] [place] [address] Clarity (U) Turbid Abnormal Clear [facility] Comment on above: Performed By: #### 4 [id number] #### [facility] [address] [place] [address] Color (U) Light-Yellow Normal Yellow [facility] Comment on above: Result Comment: Micr oscopic readings are only performed on those samples that meet specific criteria set forth by [facility]. Performed By: #### 4 [id number] #### [facility] [address] [place] [address] Epithelial cells.squamous Auto (Urine sed) [#/Area] 5-8 Invalid Interpretation Code [facility] Comment on above: Performed By: #### 4 [id number] #### [facility] [address] [place] [address] Glucose Ql (U) 4+ mg/dL Abnormal Negative [facility] Comment on above: Performed By: #### 4 [id number] #### [facility] [address] [place] [address] Hemoglobin Auto test strip (U) [Mass/Vol] 2+ mg/dL Abnormal Negative [facility] Comment on above: Performed By: #### 4 [id number] #### [facility] [address] [place] [address] Ketones Auto test strip Ql (U) Trace Abnormal Negative [facility] Comment on above: Performed By: #### 4 [id number] #### [facility] [address] [place] [address] Leukocyte esterase Auto test strip Ql (U) 500 Sergio/uL Abnormal Negative [facility] Comment on above: Performed By: #### 4 [id number] #### [facility] [address] [place] [address] pH (U) 5.0 [pH] Invalid Interpretation Code 5.0-9.0 [facility] Comment on above: Performed By: #### 4 [id number] #### [facility] [address] [place] [address] Protein Ql (U) 1+ mg/dL Abnormal Negative [facility] Comment on above: Performed By: #### 4 [id number] #### [facility] [address] [place] [address] RBC Ql (U) 31-75 Abnormal 0-3 [facility] Comment on above: Performed By: #### [id number] #### [facility] [address] [place] [address] Specific gravity (U) [Rel density] 1.030 Invalid Interpretation Code 1.005-1.030 [facility] Comment on above: Performed By: #### [id number] #### [facility] [address] [place] [address] Type of Urine collection method Clean Catch Normal [facility] Comment on above: Performed By: #### [id number] #### [facility] [address] [place] [address] WBC Auto (Urine sed) [#/Area] >75 Abnormal 0-5 [facility] Comment on above: Performed By: #### [id number] #### [facility] [address] [place] [address] Yeast.budding Computer assisted Ql (U) 1+ [id number] Abnormal [facility] Comment on above: Performed By: #### [id number] #### [facility] [address] [place] [address] UA with Cult RflxOrdered By: SYSTEM SYSTEM on 02-19-2024 Bilirubin Ql (U) Negative Normal Negativemg/dL [facility] [place] Auto SS Comment on above: Performed By: #### 4 [id number] #### [facility] [address] [place] [address] Mucus Auto Ql (U) Negative Normal Negativegr aded/L PF [facility] UA Auto SS Comment on above: Performed By: #### 4 [id number] #### [facility] [address] [place], [place] [address] Nitrite Auto test strip Ql (U) Negative Normal Negativemg/dL [facility] [place] Auto SS Comment on above: Performed By: #### 4 [id number] #### [facility] [address] [place], [place] [address] Urobilinogen (U) [Mass/Vol] Negative Normal Negativemg/dL [facility] UA Auto SS Comment on above: Performed By: #### 4 [id number] #### [facility] [address] [place] [address] URINALYSISOrdered By: SYSTEM SYSTEM on 02-19-2024 Bacteria Auto Ql (U) 1+ /HPF Invalid Interpretation Code Trace/HPF [facility] UA Auto SS Clarity (U) Turbid *ABN* (02/19/24 4:54 PM) Invalid Interpretation Code Clear [facility] UA Auto SS Color (U) Light-Yellow 1 (02/19/24 4:54 PM) Normal Yellow [facility] UA Auto SS Comment on above: Interpretive Data: M icroscopic readings are only performed on those samples that meet specific criteria set forth by [facility]. Epithelial cells.squamous Auto (Urine sed) [#/Area] 5-8 graded/HPF Invalid Interpretation Code [facility] UA Auto SS Glucose Ql (U) 4+ mg/dL Invalid Interpretation Code Negativemg/dL [facility] UA Auto SS Hemoglobin Auto test strip (U) [Mass/Vol] 2+ mg/dL Invalid Interpretation Code Negativemg/dL [facility] UA Auto SS Ketones Auto test strip Ql (U) Trace mg/dL Invalid Interpretation Code Negativemg/dL [facility] UA Auto SS Leukocyte esterase Auto test strip Ql (U) 500 Sergio/uL Sergio/uL Invalid Interpretation Code NegativeLeu/uL [facility] UA Auto SS pH (U) 5.0 *NA* (02/19/24 4:54 PM) Invalid Interpretation Code 5.0 - 9.0 [facility] UA Auto SS Protein Ql (U) 1+ mg/dL Invalid Interpretation Code Negativemg/dL [facility] UA Auto SS RBC Ql (U) 31-75 graded/HPF Invalid Interpretation Code 0-3graded/HPF [facility] UA Auto SS Specific gravity (U) [Rel density] 1.030 *NA* (02/19/24 4:54 PM) Invalid Interpretation Code 1.005 - 1.030 [facility] UA Auto SS WBC Auto (Urine sed) [#/Area] >75 graded/HPF Invalid Interpretation Code 0-5graded/HPF [facility] UA Auto SS Yeast.budding Computer assisted Ql (U) 1+ graded/HPF Invalid Interpretation Code [facility] UA Auto SS URINALYSISOrdered By: Luis Corona on 02-19-2024 UA Spec Desc Clean Catch (02/19/24 4:54 PM) Normal [facility] [place] Auto SS eGFRon 02-19-2024 eGFR 24 mL/min/1.73 m2 Low >=59 [facility] Comment on above: Order Comment: Order added by Discern Expert. Performed By: #### 1 [id number] #### [facility] [address] [place] [address] Prescriptions/Work Noteson 0 09-07-2023 Prescriptions/Work Notes [id number]# 1.00TIFF Normal [facility] IntraOperative Documentson 1 10-26-2022 IntraOperative Documents [id number]# 1.00TIFF Normal [facility] Comment on above: Other Comment: error IntraOperative Documents [id number]# 1.00TIFF Normal [facility] Calculus Analysison 08-15-20 23 Color (Stone) [place] Invalid Interpretation Code [facility] Comment on above: Performed By: #### 1 [id number] ####[facility] [address] [place] [address] Composition Comment Invalid Interpretation Code [facility] Comment on above: Result Comment: Perc entage (Represents the % composition) Performed By: #### 1 [id number] ####[facility] [address] [place] [address] Disclaimer: Comment Invalid Interpretation Code [facility] Comment on above: Result Comment: This test was developed and its performance characteristicsdetermined by marker.to. It has not been cleared or approvedby the Food and Drug Administration.Performed at: [facility] [address] [place] [address] [id number] PhD Ivan Ureña Performed By: #### 1 [id number] ####[facility] [address] [place] [address] Laboratory comment Hu (Report) Comment Invalid Interpretation Code [facility] Comment on above: Result Comment: Phys ician questions regarding Calculi Analysis contactSaint [facility] HospitalCo at: [phone]. Performed By: #### 1 [id number] ####[address] [place] [address] Please Note: Comment Invalid Interpretation Code [facility] Comment on above: Result Comment: Calc bernard report will follow via computer, mail or courierdelivery. Performed By: #### 1 [id number] ####[address] [place] [address] Size (Stone) [Entitic vol] 3x4 Invalid Interpretation Code [facility] Comment on above: Result Comment: Mult iple pieces received. Dimensions of the largest piecereported. Performed By: #### 1 [id number] ####[address] [address] Specimen source subject Nom Comment Invalid Interpretation Code [facility] Comment on above: Result Comment: Not provided Performed By: #### 1 [id number] ####[address] [address] Stone Photo Comment Invalid Interpretation Code [facility] Comment on above: Result Comment: Phot ograph will follow under a separate cover Performed By: #### 1 [id number] ####[address] [place] [address] Urate (Stone) [Mass fraction] 100 % Invalid Interpretation Code [facility] Comment on above: Performed By: #### 1 [id number] ####[address] [place] [address] Weight (Stone) 90 mg Invalid Interpretation Code [facility] Comment on above: Performed By: #### 1 [id number] ####[address] [place] [address] Prescriptions/Work Noteson 1 10-13-2022 Prescriptions/Work Notes [id number]# 1.00TIFF Normal [facility] Consent for Procedure/Surger yon 08-11-2023 Consent for Procedure/Surgery [id number]# 1.00TIFF Normal [facility] Progress Note-Physicianon Progress Note-Physician [facility] Comment on above: Result Comment: Elec tronically Signed By: Ravinder Bojorquez Jr, DO\.br\Date and Time Signed: 08/08/23 10:09 EST Progress Note-Physicianon Progress Note-Physician [facility] Comment on above: Result Comment: Elec tronically Signed By: Ravinder Bojorquez Jr, DO\.br\Date and Time Signed: 08/07/23 08:35 EST Consent for Anesthesiaon Consent for Anesthesia [id number]#1 .00TIFF [facility] Discharge Instructionson Discharge Instructions [id number]#1 .00TIFF Normal [facility] IntraOperative Documentson 1 10-07-2022 IntraOperative Documents [id number]#1 .00TIFF [facility] Main OR Intraoperative Recor don 08-06-2023 Main OR Intraoperative Record [facility] Preoperative Documentson Preoperative Documents [id number]#1 .00TIFF [facility] CHEMISTRYOrdered By: Andrea Richter on 08-05-2023 POC Username FATIMAH HA Invalid Interpretation Code [facility] [place] Subsection Sodium [Moles/Vol] 705135229718 mmol/L Invalid Interpretation Code [facility] [place] POC Subsection Sodium [Moles/Vol] 243822661 mmol/L Invalid Interpretation Code [facility] [place] Subsection Capillary Glucose POCOrdered By: Andrea Han on 08-05-2023 Glucose [Mass/Vol] 155 mg/dL High 55-99 [facility] P OC Subsection Comment on above: Result Comment: Sheryl minda Meter No Coverage Given Result Comment: Sheryl minda MeterNo Coverage Given Performed By: #### 2 [id number] ####[facility] [address] [place] [address] Consent for Treatmenton Consent for Treatment [id number]#1 .00TIFF Normal [facility] Discharge Instructionson Discharge Instructions [facility] Comment on above: Result Comment: Elec tronically Signed By: Jerome MARCUM, Fatimah N\.br\Date and Time Signed: 08/05/23 15:42 EST H&P Updateon 08-05-2023 H&P Update [id number]#1 .00TIFF Normal [facility] Inpatient Patient Summaryon 08-05-2023 Inpatient Patient Summary Normal [facility] Main OR PACU I Recordon Main OR PACU I Record [facility] Main OR Preoperative Recordo n 08-05-2023 Main OR Preoperative Record Normal [facility] Monitor Recordon 08-05-2023 Monitor Record [id number]# 1.00TIFF [facility] Monitor Record [id number]# 1.00TIFF [facility] Operative Reporton Operative Report Normal [facility] Comment on above: Result Comment: Elec tronically Signed By: GEORGIE CHISHOLM, Orestse P\.br\Date and Time Signed: 08/05/23 15:18 EST Outpatient Surgery Discharge Instructionon 08-05-2023 Outpatient Surgery Discharge Instruction Normal [facility] Patient Education - Texton 1 10-06-2022 Patient Education - Text Normal [facility] URINALYSISOrdered By: Candis Soto on 08-05-2023 Bacteria LM Ql (Urine sed) 1+ /HPF Invalid Interpretation Code Trace/HPF [facility] UA Auto SS Bilirubin Ql (U) Negative (08/05/23 12:21 PM) Normal Negative [facility] UA Auto SS Clarity (U) Cloudy *ABN* (08/05/23 12:21 PM) Invalid Interpretation Code Clear [facility] UA Auto SS Color (U) Yellow (08/05/23 12:21 PM) Normal Yellow [facility] [place] Auto SS Epithelial cells.squamous LM.HPF (Urine sed) [#/Area] 3-4 /HPF Normal 0-2/HPF [facility]A Auto SS Glucose Test strip (U) [Mass/Vol] Negative (08/05/23 12:21 PM) Normal Negative [facility]A Auto SS Hemoglobin Ql (U) 2+ *ABN* (08/05/23 12:21 PM) Invalid Interpretation Code Negative [facility]A Auto SS Ketones (U) [Mass/Vol] Negative (08/05/23 12:21 PM) Normal Negative [facility]A Auto SS Kenvir.plasma/Lithi um.RBC (Bld) [Mass ratio] 21-30 /HPF Invalid Interpretation Code 0-3/HPF [facility]A Auto SS Nitrite Ql (U) Negative (08/05/23 12:21 PM) Normal Negative [facility]A Auto SS pH (U) 6.0 (08/05/23 12:21 PM) Normal 5.0 - 9.0 [facility]A Auto SS Protein (U) [Mass/Vol] 2+ *ABN* (08/05/23 12:21 PM) Invalid Interpretation Code Negative [facility]A Auto SS Specific gravity (U) [Rel density] 1.015 (08/05/23 12:21 PM) Normal 1.005 - 1.030 [facility]A Auto SS UA Spec Desc Clean Catch (08/05/23 12:21 PM) Normal [facility] [place] Auto SS Urobilinogen Qn (U) 0.1185422 {Isis'U}/dL Normal 0.0 - 1.0 EU/dL [facility] [place] [facility] Auto SS WBC Auto Ql (U) 3+ *ABN* (08/05/23 12:21 PM) Invalid Interpretation Code Negative [facility] [place] [facility] Auto SS Urinalysison 08-05-2023 Bacteria LM Ql (Urine sed) 1+ /HPF Abnormal Trace [facility] Comment on above: Performed By: #### 1 [id number] ####[facility] [address] [place] [address] Bilirubin Ql (U) Negative Normal Negative [facility] Comment on above: Performed By: #### 1 [id number] ####[facility] [address] [place] [address] Clarity (U) CLOUDY Abnormal Clear [facility] Comment on above: Performed By: #### 1 [id number] ####[address] [address] Color (U) YELLOW Normal Yellow [facility] Comment on above: Performed By: #### 1 [id number] ####[address] [address] Epithelial cells.squamous LM.HPF (Urine sed) [#/Area] 3-4 Normal 0-2 [facility] Comment on above: Performed By: #### 1 [id number] ####[address] [address] Glucose Test strip (U) [Mass/Vol] Negative Normal Negative [facility] Comment on above: Performed By: #### 1 [id number] ####[address] [address] Hemoglobin Ql (U) 2+ Abnormal Negative [facility] Comment on above: Performed By: #### 1 [id number] ####[facility] [address] [place] [address] Ketones (U) [Mass/Vol] Negative Normal Negative [facility] Comment on above: Performed By: #### 1 [id number] ####[address] [address] Kenvir.plasma/Lithi um.RBC (Bld) [Mass ratio] 21-30 Abnormal 0-3 [facility] Comment on above: Performed By: #### 1 [id number] ####[facility] [address] [place] [address] Nitrite Ql (U) Negative Normal Negative [facility] Comment on above: Performed By: #### 1 8828021 ####[address] [address] pH (U) 6.0 [pH] Normal 5.0-9.0 [facility] Comment on above: Performed By: #### 1 [id number] ####[facility] [address] [place] [address] Protein (U) [Mass/Vol] 2+ Abnormal Negative [facility] Comment on above: Performed By: #### 1 [id number] ####[address] [address] Specific gravity (U) [Rel density] 1.015 Normal 1.005-1.030 [facility] Comment on above: Performed By: #### 1 [id number] ####[id number] Type of Urine collection method Clean Catch Normal [facility] Comment on above: Performed By: #### 1 [id number] ####[address] Urobilinogen Qn (U) 0.2 {Isis'U}/dL Normal 0.0-1.0 [facility] Comment on above: Performed By: #### 1 9780141 ####[address] WBC Auto Ql (U) 3+ Abnormal Negative [facility] Comment on above: Performed By: #### 1 [id number] ####[address] [address] UrinalysisOrdered By: Candis Soto on 08-05-2023 WBC LM.HPF (Urine sed) [#/Area] /[HPF] Abnormal 0-5 [facility] [place] [facility] Auto SS Comment on above: Performed By: #### 1 [id number] ####[address] [address] XR Abdomen 1 Viewon 08-05-20 23 XR Abdomen 1 View Normal [facility] XR Chest 2 Viewson 3 XR Chest 2 Views Normal [facility] Alanine Aminotransferaseon 1 10-05-2022 ALT [Catalytic activity/Vol] 15 U/L Normal 7-52 [facility] Comment on above: Performed By: #### A LT, AST, LIPID #### [facility] [address] Alanine aminotransferase [En zymatic activity/volume] in Serum or PlasmaOrdered By: Tal Florian on 08-04-2023 ALT [Catalytic activity/Vol] 15 U/L 7-52 [facility] Aspartate Amino Transferaseo n 08-04-2023 AST [Catalytic activity/Vol] 13 U/L Normal 13-39 [facility] Comment on above: Performed By: #### A LT, AST, LIPID #### [facility] [address] [place] [address] [facility] Aspartate aminotransferase [ Enzymatic activity/volume] in Serum or PlasmaOrdered By: Tal Florian on 08-04-2023 AST [Catalytic activity/Vol] 13 U/L 13-39 [facility] Cholesterol [Mass/volume] in Serum or PlasmaOrdered By: Tal Florian on 08-04-2023 Cholesterol [Mass/Vol] 209 mg/dL 140-200 [facility] Comment on above: Chol less than 200 m g/dl low riskChol 201-239 mg/dl borderline riskChol 240 mg/dl and greater high risk Cholesterol in LDL Calc [Mas s/Vol]Ordered By: Tal Florian on 08-04-2023 Cholesterol in LDL [Mass/Vol] 116 mg/dL 0-100 [facility] Comment on above: LDL ATP III CLASSIFI CATIONLDL less than 100 mg/dL OptimalLDL 100-129 mg/dL Near or above optimalLDL 130-159 mg/dL Borderline highLDL 160-189 mg/dL HighLDL greater than 189 mg/dL Very high Cholesterol in VLDL Calc [Ma ss/Vol]Ordered By: Tal Florian on 08-04-2023 Cholesterol in VLDL [Mass/Vol] 35 mg/dL [facility] Lipid Panelon 08-04-2023 Cholesterol [Mass/Vol] 209 mg/dL High 140-200 [facility] Comment on above: Result Comment: Chol less than 200 mg/dl low risk Chol 201-239 mg/dl borderline risk Chol 240 mg/dl and greater high risk Performed By: #### A LT, AST, LIPID #### [facility] [address] [place] [address] [place] Cholesterol in HDL [Mass/Vol] 58 mg/dL Normal 23-92 [facility] Comment on above: Result Comment: HDL CHOL ATP-III CLASSIFICATION Cardiovascular Risk HDL > or equal to 60 mg/dL LOW HDL < 40 mg/dL HIGH Performed By: #### A LT, AST, LIPID #### [facility] [address] Cholesterol.total/Ch olesterol in HDL [Mass ratio] 3.6 {ratio} Normal <5.0 [facility] Comment on above: Result Comment: PERF ORMED BY: [place] [address] PATHOLOGIST GAME DEVELOPER KEVIN SWARTZ M.D. Performed By: #### A LT, AST, LIPID #### [facility] [address] [place] [address] LDL Cholesterol,Calculat ed 116 mg/dL High 0-100 [facility] Comment on above: Result Comment: LDL ATP III CLASSIFICATION LDL less than 100 mg/dL Optimal LDL 100-129 mg/dL Near or above optimal LDL 130-159 mg/dL Borderline high LDL 160-189 mg/dL High LDL greater than 189 mg/dL Very high Performed By: #### A LT, AST, LIPID #### [facility] [address] [place] [address] Triglyceride w/Reflex 175 mg/dL High 0-149 [facility] Comment on above: Result Comment: TRIG ATP III CLASSIFICATION TRIG less than 150 mg/dL Normal TRIG 150-199 mg/dL Borderline high TRIG 200-500 mg/dL High TRIG greater than 500 mg/dL Very high Standard traceable to the Center for Disease Conrtrol and Prevention (CDC) test method. Performed By: #### A LT, AST, LIPID #### [facility] [address] [place] [address] VLDL CHOLESTEROL 35 mg/dL Normal [facility] Comment on above: Performed By: #### A LT, AST, LIPID #### [facility] [address] [place] [address] Serum or plasma high density lipoprotein (HDL) cholesterol measurementOrdered By: Tal Florian on 08-04-2023 Cholesterol in HDL [Mass/Vol] 58 mg/dL 23- [facility] Comment on above: HDL CHOL ATP-III CLA SSIFICATION Cardiovascular RiskHDL > or equal to 60 mg/dL LOWHDL < 40 mg/dL HIGH Serum or plasma total choles terol/high density lipoprotein (HDL) cholesterol mass ratOrdered By: Tal Florian on 08-04-2023 Cholesterol.total/Ch olesterol in HDL [Mass ratio] 3.6 {ratio} <5.0 [facility] Triglyceride [Mass/volume] i n Serum or PlasmaOrdered By: Tal Florian on 08-04-2023 Triglyceride [Mass/Vol] 175 mg/dL 0-149 [facility] Comment on above: TRIG ATP III CLASSIF ICATIONTRIG less than 150 mg/dL NormalTRIG 150-199 mg/dL Borderline highTRIG 200-500 mg/dL High TRIG greater than 500 mg/dL Very highStandard traceable to the Center for Disease Conrtrol and Prevention (CDC) test method. Consent for Treatmenton 07-01 Consent for Treatment [id number]#1 .00TIFF Normal [facility] XR Abdomen 1 Viewon 07-23-20 23 XR Abdomen 1 View Normal [facility] IntraOperative Documentson 09-15-2022 IntraOperative Documents [id number]# 1.00TIFF Normal [facility] Operative Reporton Operative Report [id number]#1 .00TIFF Normal [facility] Formson 07-11-2023 Forms [id number]#1 .00TIFF Normal [facility] ECG 12-Leadon 07-05-2023 ECG 12-Lead [id number]#1 .00TIFF Normal [facility] Auto Diffon 07-02-2023 Basophils/100 WBC (Bld) 1.0 % Normal 0.0-2.0 [facility] Comment on above: Order Comment: Order Added by Discern Expert. Performed By: #### 2 346657, 3464037, 15554310, 21678105, 6051148, 5164922, 8529948 ####[facility] [address] [place] [address] Basophils/Leukocytes Auto (Bld) [Pure # fraction] 0.1 E9/L Normal 0.0-0.2 [facility] Comment on above: Order Comment: Order Added by Discern Expert. Performed By: #### 2 865994, 5461714, 50135595, 55754169, 3242118, 2717158, 3211194 ####[address] [place] [address] Eosinophils/100 WBC (Bld) 2.6 % Normal 0.0-8.0 [facility] Comment on above: Order Comment: Order Added by Discern Expert. Performed By: #### 2 814954, 7796965, 70437520, 93711810, 8805805, 4700823, 2555847 ####[address] [place] [address] Eosinophils/Leukocyt es Auto (Bld) [Pure # fraction] 0.2 E9/L Normal 0.0-0.5 [facility] Comment on above: Order Comment: Order Added by Discern Expert. Performed By: #### 2 182010, 4388083, 06811118, 24290333, 3409518, 9767497, 8816420 ####[address] [place] [address] Lymphocytes/100 WBC (Bld) 21.4 % Normal 14.0-50.0 [facility] Comment on above: Order Comment: Order Added by Discern Expert. Performed By: #### 2 206551, 1370518, 96018218, 48120014, 5692463, 2561982, 3594180 ####[address] [place] [address] Lymphocytes/Leukocyt es Auto (Bld) [Pure # fraction] 1.9 E9/L Normal 1.0-4.0 [facility] Comment on above: Order Comment: Order Added by Discern Expert. Performed By: #### 2 449137, 0794633, 67327462, 31522121, 6345680, 7301209, 9660601 ####[address] [place] [address] Monocytes/100 WBC (Bld) 7.7 % Normal 4.0-14.0 [facility] Comment on above: Order Comment: Order Added by Discern Expert. Performed By: #### 2 679593, 5034050, 75148813, 07714036, 6377424, 5483381, 9233355 ####[address] [place] [address] Monocytes/Leukocytes Auto (Bld) [Pure # fraction] 0.7 E9/L Normal 0.2-1.0 [facility] Comment on above: Order Comment: Order Added by Christen Expert. Performed By: #### 2 185723, 1791024, 65123735, 18768575, 9398728, 2972568, 6721042 ####[address] [place] [address] Neutrophils/100 WBC (Bld) 67.3 % Normal 36.0-75.0 [facility] Comment on above: Order Comment: Order Added by Christen Expert. Performed By: #### 2 253712, 6129388, 29865457, 53332753, 0617525, 2640005, 4700695 ####[address] [place] [address] Neutrophils/Leukocyt es Auto (Bld) [Pure # fraction] 6.0 E9/L Normal 2.0-7.5 [facility] Comment on above: Order Comment: Order Added by Christen Expert. Performed By: #### 2 502685, 9985764, 03885153, 79951659, 5519723, 5964989, 3195180 ####[address] [place] [address] BUNon 07-02-2023 Urea nitrogen [Mass/Vol] 20 mg/dL Normal 5-21 [facility] Comment on above: Performed By: #### 2 997249, 0303824, 14404389, 19502439, 6928087, 1181124, 1183407 ####[facility] [address] [place] [address] CBC w/ Auto Diffon 3 Erythrocyte distribution width (RBC) [Ratio] 14.2 % Normal 10.9-14.2 [facility] Comment on above: Performed By: #### 2 864692, 6927769, 10015865, 02818202, 3806471, 4154021, 3295460 ####[address] [place] [address] Hematocrit (Bld) [Volume fraction] 43.0 % Normal 34.0-46.0 [facility] Comment on above: Performed By: #### 2 811936, 9357393, 32578067, 25288955, 7802451, 3478948, 8942706 ####[address] [place] [address] Hemoglobin (Bld) [Mass/Vol] 14.5 g/dL Normal 12.0-16.0 [facility] Comment on above: Performed By: #### 2 057397, 8808941, 78932804, 13171299, 5619426, 9672429, 5053870 ####[address] [place] [address] MCH (RBC) [Entitic mass] 30.1 pg Normal 27.0-34.0 [facility] Comment on above: Performed By: #### 2 563735, 6660910, 51006268, 26911318, 2680692, 6842102, 3572426 ####[address] [place] [address] MCHC (RBC) [Mass/Vol] 33.6 g/dL Normal 31.4-36.0 [facility] Comment on above: Performed By: #### 2 910614, 2510282, 91292389, 33246063, 0471717, 8999097, 1706428 ####[facility] [address] [place] [address] MCV (RBC) [Entitic vol] 89.8 fL Normal 80.0-100.0 [facility] Comment on above: Performed By: #### 2 104611, 2684266, 38868690, 58994494, 9478639, 2654842, 8825936 ####[address] [place] [address] Platelet mean volume (Bld) [Entitic vol] 7.9 fL Normal 6.4-10.8 [facility] Comment on above: Performed By: #### 2 170902, 2057898, 81544134, 29683956, 8192033, 2151155, 6070914 ####[address] [address] Platelets (Bld) [#/Vol] 228.0 E9/L Normal 150.0-500.0 [facility] Comment on above: Performed By: #### 2 220253, 0733973, 67437149, 66917238, 7970585, 1345231, 7027589 ####[address] [address] RBC (Bld) [#/Vol] 4.8 E12/L Normal 4.3-5.9 [facility] Comment on above: Performed By: #### 2 275590, 7415113, 77180080, 11241627, 2974163, 4935891, 7911857 ####[address] [place] [address] WBC corrected for nucl RBC Auto (Bld) [#/Vol] 8.9 E9/L Normal 4.0-11.0 [facility] Comment on above: Performed By: #### 2 861618, 2340363, 88655447, 38660706, 8458262, 8160374, 7411624 ####[address] [address] Consent for Treatmenton 110 Consent for Treatment [id number]#1 .00TIFF Normal [facility] Creatinineon 07-02-2023 Creatinine [Mass/Vol] 1.3 mg/dL Normal 0.5-1.3 [facility] Comment on above: Performed By: #### 2 889249, 8634061, 17746841, 69694503, 4567499, 1338234, 8822833 ####[facility] [address] [place] [address] Lyteson 07-02-2023 Anion gap [Moles/Vol] 16 mmol/L Normal 6-16 [facility] Comment on above: Performed By: #### 2 154203, 0682853, 52618107, 30694284, 8599721, 0320490, 7065566 ####[facility] [address] [place] [address] Chloride [Moles/Vol] 109 mmol/L Normal 101-111 [facility] Comment on above: Performed By: #### 2 482079, 5185063, 89089806, 78858694, 6887341, 9851791, 1771961 ####[facility] [address] [place] [address] CO2 [Moles/Vol] 24 mmol/L Normal 21-31 [facility] Comment on above: Performed By: #### 2 430452, 7345058, 47140365, 10583480, 2106024, 5056686, 0640022 ####[facility] [address] [place] [address] Potassium [Moles/Vol] 4.1 mmol/L Normal 3.5-5.3 [facility] Comment on above: Performed By: #### 2 357328, 0250814, 89501595, 95375082, 3736388, 9478335, 5916857 ####[facility] [address] [place] [address] Sodium [Moles/Vol] 145 mmol/L Normal 135-145 [facility] Comment on above: Performed By: #### 2 043779, 6032922, 36203780, 21734307, 5934919, 0324680, 9484681 ####[facility] [address] [place] [address] PT & PTTon 07-02-2023 aPTT Coag (PPP) [Time] 27.5 second(s) Normal 25.1-36.5 [facility] Comment on above: Result Comment: Para meter 15 days - 4 weeks 1 - 5 months 6 - 11 months 1 - 5 years 6 - 10 years 11 - 17 years PTT Mean: 35.4 (27.6-45.6) Mean: 33.5 (24.8-40.7) Mean: 32.4 (25.1-40.7) Mean: 31.6 (24.0-39.2) Mean: 31.6 (26.9-38.7) Mean: 31.0 (24.6-38.4) Pediatric Reference ranges were obtained from a study by Chris Hollins et al. prepared from 1437 samples obtained at 7 different centers using the same coagulation reagent and instrumentation [place] [facility] Currently there are no coagulation studies available worldwide for children to 14 days, and no normal ranges. Heparin therapeutic range (represented by Anti-Factor Xa activity of 0.2 - 0.4 U/mL) corresponds to PTT of 56.6 - 109.0 sec. Performed By: #### 2 541293, 6394134, 73038017, 96128186, 9360629, 4420268, 5899387 ####[facility] [address] [place] [address] INR Coag (PPP) [Relative time] 1.0 {INR} Invalid Interpretation Code [facility] Comment on above: Result Comment: INR results are specifically intended to assess patients stabilized on long-term Anticoagulation therapy suggested INR?s ?Less Intensive Anticoagulation? 2.0 ? 3.0Conventional Range 3.0 ? 4.5 Performed By: #### 2 952239, 1727639, 75935854, 60158086, 2601582, 9310001, 4960169 ####[facility] [address] [place] [address] PT Coag (PPP) [Time] 11.4 second(s) Normal 9.4-12.5 [facility] Comment on above: Result Comment: 15 d ays - 4 weeks 1 - 5 months 6 -11 months 1- 5 years 6-10 years 11 -17 years Mean: 11.2 (9.5-12.6) Mean: 11.0 (9.7-12.8) Mean: 11.0 (9.8-13.0) Mean: 11.3 (9.9-13.4) Mean: 11.7 (10.0-14.6) Mean: 11.8 (10.0 - 14.1) Pediatric Reference ranges were obtained from a study by leila Pino al. prepared from 1437 samples obtained at 7 different centers using the same coagulation reagent and instrumentation [place] [facility] [place]. Currently there are no coagulation studies available worldwide for children to 14 days, and no normal ranges. Performed By: #### 2 629604, 5597799, 25518094, 79453940, 5322850, 6652545, 9166063 ####[facility] [address] [place] [address] XR Abdomen 1 Viewon 07-02-20 23 XR Abdomen 1 View Normal [facility] eGFRon 07-02-2023 GFR/1.73 sq M.predicted among non-blacks MDRD (S/P/Bld) [Vol rate/Area] 44 mL/min/1.73 m2 Low >=59 [facility] Comment on above: Order Comment: Order added by Discern Expert. Result Comment: Seal Mixer maxi kidney disease could be indicated at eGFR's of less than 60 mL/min/1.73m2. Kidney failure is indicated at less than 15 mL/min/1.73m2. Performed By: #### 2 663115, 3448757, 58569231, 64105913, 7770588, 0099895, 8041712 ####[facility] [address] [place] [address] Consent for Treatmenton 11 Consent for Treatment [id number]#1 .00TIFF Normal [facility] Reminderson 06-11-2023 Reminders Normal [facility] XR Abdomen 1 Viewon 06-11-20 23 XR Abdomen 1 View Normal [facility] Consent for Treatmenton 05-30 Consent for Treatment [id number]#1 .00TIFF Normal [facility] C Blood Charcoalon 3 Blood Culture Charcoal Normal [facility] Comment on above: Performed By: #### 1 4739318 ####[facility] [address] [place] [address] C Blood Charcoalon 3 Blood Culture Charcoal Normal [facility] Comment on above: Performed By: #### 1 2831665 ####[facility] [address] [place] [address] Consent for PICC lineon Consent for PICC line [id number]# 1.00TIFF [facility] Discharge Instructionson Discharge Instructions [id number]# 1.00CD:127 Normal [facility] C Blood Charcoalon 3 Blood Culture Charcoal Normal [facility] Comment on above: Performed By: #### 1 2089925 ####[facility] [address] [place] [address] CHEMISTRYOrdered By: Andrea Richter on 06-02-2023 POC Username OBI AGARWAL Invalid Interpretation Code [facility] [place] P[place] Subsection Sodium [Moles/Vol] 773879721949 mmol/L Invalid Interpretation Code [facility] [place] POC Subsection Sodium [Moles/Vol] 759886087 mmol/L Invalid Interpretation Code [facility] [place] POC Subsection Capillary Glucose POCOrdered By: Andrea Badillor on 06-02-2023 Glucose [Mass/Vol] 152 mg/dL High 55-99 [facility] [place] P OC Subsection Comment on above: Result Comment: Modesto vanegas RN/ Result Comment: Modesto vanegas RN/ Performed By: #### 2 [id number] ####[facility] [address] [place] [address] Coding Queryon 06-02-2023 Coding Query Normal [facility] Inpatient Clinical Summaryon 06-02-2023 Inpatient Clinical Summary Normal [facility] Inpatient Patient Summaryon 06-02-2023 Inpatient Patient Summary Normal [facility] Interdisciplinary Note - Galo e Manageron 06-02-2023 Interdisciplinary Note - Cylinder Valve Repairer Normal [facility] Comment on above: Result Comment: Elec tronically Signed By: Rayne Carpenterbr\Date and Time Signed: 06/02/23 10:50 EDT BMPOrdered By: SYSTEM SYSTEM on 06-01-2023 Anion gap [Moles/Vol] 13 mmol/L Normal 6-16 [facility] Comment on above: Performed By: #### 2 256582, 58965898 ####[address] [address] Calcium [Mass/Vol] 8.9 mg/dL Normal 8.9-11.1 [facility] Comment on above: Performed By: #### 2 444896, 62694246 ####[address] [address] Chloride [Moles/Vol] 115 mmol/L High 101-111 [facility] Comment on above: Performed By: #### 2 387396, 55259067 ####[address] [address] CO2 [Moles/Vol] 20 mmol/L Low 21-31 [facility] Eric milena Comment on above: Performed By: #### 2 566131, 49605467 ####[address] [place] [address] Creatinine [Mass/Vol] 1.2 mg/dL Normal 0.5-1.3 [facility] Comment on above: Performed By: #### 2 856040, 41509107 ####[address] [address] Glucose [Mass/Vol] 104 mg/dL Normal 55-199 [facility] R emisol Comment on above: Interpretive Data: I f this glucose result represents a fasting glucose, interpretation should refer to the following reference range: 55-99 mg/dL Result Comment: If t his glucose result represents a fasting glucose, interpretation should refer to the following reference range: 55-99 mg/dL Performed By: #### 2 684164, 96425842 ####[facility] [address] [place] [address] Potassium [Moles/Vol] 3.6 mmol/L Normal 3.5-5.3 [facility] Comment on above: Performed By: #### 2 782040, 61163341 ####[facility] [address] [place] [address] Sodium [Moles/Vol] 144 mmol/L Normal 135-145 [facility] R emisol Comment on above: Performed By: #### 2 592215, 12378353 ####[facility] [address] [place] [address] Urea nitrogen [Mass/Vol] 17 mg/dL Normal 5-21 [facility] Comment on above: Performed By: #### 2 458906, 08588940 ####[facility] [address] [place] [address] BMPon 06-01-2023 Urea nitrogen/Creatinine [Mass ratio] 14 No Units Normal 10-20 [facility] Comment on above: Performed By: #### 2 596775, 20661831 ####[facility] [address] [place] [address] CHEMISTRYOrdered By: Lab ROP User on 06-01-2023 POC Username JANIA GREEN Invalid Interpretation Code [facility] POC Subsection POC Username ASHOK ORTEZ Invalid Interpretation Code [facility] POC Subsection Sodium [Moles/Vol] 916759582680 mmol/L Invalid Interpretation Code [facility] POC Subsection Sodium [Moles/Vol] 591623142 mmol/L Invalid Interpretation Code [facility] POC Subsection Sodium [Moles/Vol] 324710860398 mmol/L Invalid Interpretation Code [facility] POC Subsection Sodium [Moles/Vol] 347102771 mmol/L Invalid Interpretation Code [facility] [place] P[place] Subsection CHEMISTRYOrdered By: SYSTEM SYSTEM on 06-01-2023 Urea nitrogen/Creatinine [Mass ratio] 14 mg/mg Normal [facility] Remisol Capillary Glucose POCon Glucose [Mass/Vol] 102 mg/dL High 55-99 [facility] Comment on above: Result Comment: [place] ANDRES Performed By: #### 2 [id number] ####[facility] [address] [place] [address] Glucose [Mass/Vol] 270 mg/dL High 55-99 [facility] Comment on above: Result Comment: [place] ANDRES Performed By: #### 2 69313859 ####[facility] [address] [place] [address] Capillary Glucose POCOrdered By: Lab ROPUser on 06-01-2023 Glucose [Mass/Vol] 183 mg/dL High 55-99 [facility] P OC Subsection Comment on above: Result Comment: [place] ANDRES Result Comment: [place] ANDRES Performed By: #### 2 45568031 ####[facility] [address] [place] [address] Glucose [Mass/Vol] 213 mg/dL High 55-99 [facility] P OC Subsection Comment on above: Result Comment: [place] ANDRES Result Comment: [place] ANDRES Performed By: #### 2 [id number] ####[facility] [address] [place] [address] Consultation Noteon 06-01-20 Consultation Note Normal [facility] Comment on above: Result Comment: Elec tronically Signed By: Garrett Palmer M.D\willy\Date and Time Signed: 06/01/23 14:24 EDT Interdisciplinary Note - Galo e Manageron 06-01-2023 Interdisciplinary Note - Cylinder Valve Repairer Normal [facility] Comment on above: Result Comment: Elec tronically Signed By: Rayne Carpenter\Date and Time Signed: 06/01/23 15:24 EDT Progress Note-Physicianon Progress Note-Physician Normal [facility] Comment on above: Result Comment: Elec tronically Signed By: MD Ingrid, Jossy Greene\.br\Date and Time Signed: 06/01/23 11:21 EDT Result Comment: Elec tronically Signed By: MD Ingrid, Jossy Greene\.br\Date and Time Signed: 06/01/23 11:17 EDT Progress Note-Physician Normal [facility] Comment on above: Result Comment: Elec tronically Signed By: Jhonny Barrett DO\.br\Date and Time Signed: 06/01/23 13:20 EDT eGFROrdered By: GEMA Santiago on 06-01-2023 GFR/1.73 sq M.predicted among non-blacks MDRD (S/P/Bld) [Vol rate/Area] 48 mL/min/1.73 m2 Low >=59 [facility] Chem S Comment on above: Interpretive Data: C hronic kidney disease could be indicated at eGFR's of less than 60 mL/min/1.73m2. Kidney failure is indicated at less than 15 mL/min/1.73m2. Order Comment: Order added by Discern Expert. Result Comment: Seal Mixer maxi kidney disease could be indicated at eGFR's of less than 60 mL/min/1.73m2. Kidney failure is indicated at less than 15 mL/min/1.73m2. Performed By: #### 2 339684, 16781666 ####[facility] [address] [place] [address] C Blood Charcoalon 3 Blood Culture Charcoal Normal [facility] Comment on above: Performed By: #### 1 0157070 ####[facility] [address] [place] [address] Capillary Glucose POCon Glucose [Mass/Vol] 139 mg/dL High 55-99 [facility] Comment on above: Result Comment: Modesto vanegas RN/ Performed By: #### 2 93937213 ####[facility] [address] [place] [address] Glucose [Mass/Vol] 201 mg/dL High 55-99 [facility] Comment on above: Result Comment: Modesto vanegas RN/ Performed By: #### 2 77258621 ####[facility] [address] [place] [address] Glucose [Mass/Vol] 142 mg/dL High 55-99 [facility] Comment on above: Result Comment: Modesto vanegas RN/ Performed By: #### 2 67686778 ####[facility] [address] [place] [address] Glucose [Mass/Vol] 161 mg/dL High 55-99 [facility] Comment on above: Result Comment: Modesto vanegas RN/ Performed By: #### 2 [id number] ####[facility] [address] [place] [address] Interdisciplinary Note - Galo e Manageron 05-31-2023 Interdisciplinary Note - Cylinder Valve Repairer Normal [facility] Comment on above: Result Comment: Elec tronically Signed By: Rayne Carpenter\Date and Time Signed: 05/31/23 10:58 EDT Result Comment: Elec tronically Signed By: Rayne Carpenterbr\Date and Time Signed: 05/31/23 10:40 EDT IntraOperative Documentson 1 IntraOperative Documents [id number]# 1.00CD:127 Normal [facility] Progress Note-Physicianon Progress Note-Physician Normal [facility] Comment on above: Result Comment: Elec tronically Signed By: Jhonny Barrett DO\Date and Time Signed: 05/31/23 11:13 EDT BMPon 05-30-2023 Anion gap [Moles/Vol] 5 mmol/L Low 6-16 [facility] Comment on above: Performed By: #### 2 731292, 00061590 ####[facility] [address] [place] [address] Calcium [Mass/Vol] 8.1 mg/dL Low 8.9-11.1 [facility] Comment on above: Performed By: #### 2 157972, 08327537 ####[facility] [address] [place] [address] Chloride [Moles/Vol] 116 mmol/L High 101-111 [facility] Comment on above: Performed By: #### 2 830274, 23666656 ####[facility] [address] [place] [address] CO2 [Moles/Vol] 24 mmol/L Normal 21-31 [facility] Comment on above: Performed By: #### 2 585361, 50708840 ####[facility] [address] [place] [address] Creatinine [Mass/Vol] 1.6 mg/dL High 0.5-1.3 [facility] Comment on above: Performed By: #### 2 247029, 55328355 ####[facility] [address] [place] [address] Glucose [Mass/Vol] 105 mg/dL Normal 55-199 [facility] Comment on above: Result Comment: If t his glucose result represents a fasting glucose, interpretation should refer to the following reference range: 55-99 mg/dL Performed By: #### 2 759163, 95672828 ####[facility] [address] [facility] [place] [address] Potassium [Moles/Vol] 3.8 mmol/L Normal 3.5-5.3 [facility] Comment on above: Performed By: #### 2 915081, 80784367 ####[facility] [address] [facility] [place] [address] Sodium [Moles/Vol] 141 mmol/L Normal 135-145 [facility] Comment on above: Performed By: #### 2 644909, 86695804 ####[facility] [address] [facility] [place] [address] Urea nitrogen [Mass/Vol] 28 mg/dL High 5-21 [facility] Comment on above: Performed By: #### 2 807715, 36002053 ####[facility] [place] [address] Urea nitrogen/Creatinine [Mass ratio] 18 No Units Normal - [facility] Comment on above: Performed By: #### 2 734463, 59458994 ####[facility] [address] [place] [address] C Urineon 05-30-2023 Bacteria identified Cx Nom (U) Normal [facility] Comment on above: Performed By: #### 1 7945385, 3258502 ####[facility] [address] [place] [address] CHEMISTRYOrdered By: SYSTEM SYSTEM on 05-30-2023 Anion gap [Moles/Vol] 5 mmol/L Low 6 - 16 mEq/L [facility] [place] Remisol Calcium [Mass/Vol] 8.1 mg/dL Low 8.9 - 11.1 mg/dL [facility] Remisol Chloride [Moles/Vol] 116 mmol/L High 101 - 111 mmol/ L [facility] Remisol CO2 [Moles/Vol] 24 mmol/L Normal 21 - 31 mmol/L [facility] Remisol Creatinine [Mass/Vol] 1.6 mg/dL High 0.5 - 1.3 mg/dL [facility] Remisol GFR/1.73 sq M.predicted among non-blacks MDRD (S/P/Bld) [Vol rate/Area] 34 mL/min/1.73 m2 Low >=59mL/min/1.73 m2 [facility] Chem S Comment on above: Interpretive Data: C hronic kidney disease could be indicated at eGFR's of less than 60 mL/min/1.73m2. Kidney failure is indicated at less than 15 mL/min/1.73m2. Glucose [Mass/Vol] 105 mg/dL Normal 55 - 199 mg/dL [facility] Comment on above: Interpretive Data: I f this glucose result represents a fasting glucose, interpretation should refer to the following reference range: 55-99 mg/dL Potassium [Moles/Vol] 3.8 mmol/L Normal 3.5 - 5.3 mmol/L [facility] Remisol Sodium [Moles/Vol] 141 mmol/L Normal 135 - 145 mmol/L [facility] Remisol Urea nitrogen [Mass/Vol] 28 mg/dL High 5 - 21 mg/dL [facility] Remisol Urea nitrogen/Creatinine [Mass ratio] 18 mg/mg Normal 10 - 20 [facility] Remisol Capillary Glucose POCon 10-0 Glucose [Mass/Vol] 92 mg/dL Normal 55-99 [facility] Comment on above: Result Comment: [place] ANDRES Performed By: #### 2 [id number] ####[facility] [address] [place] [address] Glucose [Mass/Vol] 191 mg/dL High 55-99 [facility] Comment on above: Result Comment: [place] ANDRES Performed By: #### 2 [id number] ####[facility] [address] [place] [address] Glucose [Mass/Vol] 171 mg/dL High 55-99 [facility] Comment on above: Result Comment: [place] ANDRES Performed By: #### 2 [id number] ####[facility] [address] [place] [address] Glucose [Mass/Vol] 209 mg/dL High 55-99 [facility] Comment on above: Result Comment: [place] ANDRES Performed By: #### 2 64569692 ####[facility] [address] [place] [address] Interdisciplinary Note - Galo e Manageron 05-30-2023 Interdisciplinary Note - Cylinder Valve Repairer Normal [facility] Comment on above: Result Comment: Elec tronically Signed By: Radhika Maria RN\.br\Date and Time Signed: 05/30/23 13:39 EDT No Panel InformationOrdered By: ANGPROCESSSERVER MICROBIOLOGY on 05-30-2023 Blood Culture Charcoal No growth at 3 days. Final to follow at 7 days. [facility] Progress Note-Physicianon Progress Note-Physician Normal [facility] Comment on above: Result Comment: Elec tronically Signed By: ISHAN CHISHOLM, Felice\.br\Date and Time Signed: 05/30/23 09:03 EDT eGFRon 05-30-2023 GFR/1.73 sq M.predicted among non-blacks MDRD (S/P/Bld) [Vol rate/Area] 34 mL/min/1.73 m2 Low >=59 [facility] Comment on above: Order Comment: Order added by Discern Expert. Result Comment: Seal Mixer maxi kidney disease could be indicated at eGFR's of less than 60 mL/min/1.73m2. Kidney failure is indicated at less than 15 mL/min/1.73m2. Performed By: #### 2 632525, [id number] ####[address] [place] [address] Auto DiffOrdered By: SYSTEM SYSTEM on 05-29-2023 Basophils/100 WBC (Bld) 0.2 % Normal 0.0-2.0 [facility]eAutoSS Comment on above: Order Comment: Order Added by Discern Expert. Performed By: #### 2 969316, 9839224, 6268417, [id number] ####[address] [address] Basophils/Leukocytes Auto (Bld) [Pure # fraction] 0.0 E9/L Normal 0.0-0.2 [facility]eAutoSS Comment on above: Order Comment: Order Added by Discern Expert. Performed By: #### 2 516041, 7991059, 3597801, [id number] ####[address] [address] Eosinophils/100 WBC (Bld) 1.1 % Normal 0.0-8.0 [facility]eAutoSS Comment on above: Order Comment: Order Added by Discern Expert. Performed By: #### 2 183696, 6824819, 4892688, 89806079 ####[address] [place] [address] Eosinophils/Leukocyt es Auto (Bld) [Pure # fraction] 0.1 E9/L Normal 0.0-0.5 [facility] HemeAutoSS Comment on above: Order Comment: Order Added by Discern Expert. Performed By: #### 2 596844, 6591326, 1899705, 59737970 ####[address] [place] [address] Lymphocytes/100 WBC (Bld) 4.9 % Low 14.0-50.0 [facility]eAutoSS Comment on above: Order Comment: Order Added by Discern Expert. Performed By: #### 2 782205, 6518004, 3908882, [id number] ####[place] [address] [address] Lymphocytes/Leukocyt es Auto (Bld) [Pure # fraction] 0.4 E9/L Low 1.0-4.0 [facility] HemeAutoSS Comment on above: Order Comment: Order Added by Discern Expert. Performed By: #### 2 316848, 2853946, 1880580, [id number] ####[place] [address] [address] Monocytes/100 WBC (Bld) 6.4 % Normal 4.0-14.0 [facility] HemeAutoSS Comment on above: Order Comment: Order Added by Christen Expert. Performed By: #### 2 239374, 1811216, [id number], [id number] ####[place]by [address] [address] Monocytes/Leukocytes Auto (Bld) [Pure # fraction] 0.6 E9/L Normal 0.2-1.0 [facility] Comment on above: Order Comment: Order Added by Christen Expert. Performed By: #### 2 255441, 4969710, 4169335, 94556476 ####[place]by [address] [address] Neutrophils/100 WBC (Bld) 87.4 % High 36.0-75.0 [facility] Comment on above: Order Comment: Order Added by Christen Expert. Performed By: #### 2 309922, 8527495, 8866474, 11328343 ####[address] [address] Neutrophils/Leukocyt es Auto (Bld) [Pure # fraction] 7.6 E9/L High 2.0-7.5 [facility] Comment on above: Order Comment: Order Added by Discern Expert. Performed By: #### 2 126205, 9905668, 2711176, 67270288 ####[facility] [address] [place] [address] BMPon 05-29-2023 Anion gap [Moles/Vol] 10 mmol/L Normal 6-16 [facility] Comment on above: Performed By: #### 2 375036, 9386963, 7664609, 66002128 ####[facility] [address] [place] [address] Calcium [Mass/Vol] 8.2 mg/dL Low 8.9-11.1 [facility] Comment on above: Performed By: #### 2 402096, 1702121, 9466348, 22398577 ####[facility] [address] [place] [address] Chloride [Moles/Vol] 109 mmol/L Normal 101-111 [facility] Comment on above: Performed By: #### 2 425258, 6419363, 9569591, 18551984 ####[facility] [address] [place] [address] CO2 [Moles/Vol] 24 mmol/L Normal 21-31 [facility] Comment on above: Performed By: #### 2 485812, 7987217, 4288585, 51291035 ####[facility] [address] [facility] [place] [address] Creatinine [Mass/Vol] 1.9 mg/dL High 0.5-1.3 [facility] Comment on above: Performed By: #### 2 709658, 0224995, 3266281, 77595933 ####[facility] [address] [place] [address] Glucose [Mass/Vol] 160 mg/dL Normal 55-199 [facility] Comment on above: Result Comment: If t his glucose result represents a fasting glucose, interpretation should refer to the following reference range: 55-99 mg/dL Performed By: #### 2 559315, 7023032, 6311215, 33712135 ####[facility] [address] [place] [address] Potassium [Moles/Vol] 3.4 mmol/L Low 3.5-5.3 [facility] Comment on above: Performed By: #### 2 262943, 8736773, 8042338, 87250318 ####[facility] [address] [place] [address] Sodium [Moles/Vol] 140 mmol/L Normal 135-145 [facility] Comment on above: Performed By: #### 2 010163, 8828406, 6952676, 64980928 ####[facility] [address] [place] [address] Urea nitrogen [Mass/Vol] 30 mg/dL High 5-21 [facility] Comment on above: Performed By: #### 2 175572, 4665702, 9637771, 28924139 ####[facility] [address] [place] [address] Urea nitrogen/Creatinine [Mass ratio] 16 No Units Normal 10-20 [facility] Comment on above: Performed By: #### 2 894593, 6651107, 4766077, 06249100 ####[facility] [address] [place] [address] C Urineon 05-29-2023 Bacteria identified Cx Nom (U) Normal [facility] Comment on above: Performed By: #### 1 5213964, 9335742 ####[address] [address] CBC w/ Auto DiffOrdered By: Rayne Barnhart on 05-29-2023 Erythrocyte distribution width (RBC) [Ratio] 13.2 % Normal 10.9-14.2 [facility] Comment on above: Performed By: #### 2 034333, 5232946, 1981702, 60823000 ####[facility] [address] [place] [address] Hematocrit (Bld) [Volume fraction] 34.7 % Normal 34.0-46.0 [facility] Comment on above: Performed By: #### 2 908321, 1133050, 1040881, 02697025 ####[place] [address]57 Hemoglobin (Bld) [Mass/Vol] 11.9 g/dL Low 12.0-16.0 [facility] Comment on above: Performed By: #### 2 529199, 7995356, 4032513, 79629391 ####[place] [address]5057 MCH (RBC) [Entitic mass] 31.1 pg Normal 27.0-34.0 [facility] Comment on above: Performed By: #### 2 179788, 8683876, 2930411, 73789028 ####[place] [address]5057 MCHC (RBC) [Mass/Vol] 34.2 g/dL Normal 31.4-36.0 [facility] Comment on above: Performed By: #### 2 132479, 3239748, 7532902, 05245498 ####[address] [address] MCV (RBC) [Entitic vol] 91.0 fL Normal 80.0-100.0 [facility] Comment on above: Performed By: #### 2 789667, 3772921, 3390815, 53392544 ####[address] [address] Platelet mean volume (Bld) [Entitic vol] 7.7 fL Normal 6.4-10.8 [facility] Comment on above: Performed By: #### 2 739496, 0534535, 9149499, 39132614 ####[address] [address] Platelets (Bld) [#/Vol] 152.0 E9/L Normal 150.0-500.0 [facility] Comment on above: Performed By: #### 2 407802, 4398285, 3489467, 71434227 ####[facility] [address] [place] [address] RBC (Bld) [#/Vol] 3.8 E12/L Low 4.3-5.9 [facility] Comment on above: Performed By: #### 2 080696, 5681177, 5020531, 67906547 ####[facility] [address] [place] [address] WBC corrected for nucl RBC Auto (Bld) [#/Vol] 8.7 E9/L Normal 4.0-11.0 [facility] Comment on above: Performed By: #### 2 882966, 4653239, 2555586, 19338838 ####[facility] [address] [place] [address] CHEMISTRYOrdered By: SYSTEM SYSTEM on 05-29-2023 Anion gap [Moles/Vol] 10 mmol/L Normal 6 - 16 mEq/L [facility] Remisol Calcium [Mass/Vol] 8.2 mg/dL Low 8.9 - 11.1 mg/dL [facility] Remisol Chloride [Moles/Vol] 109 mmol/L Normal 101 - 111 mmol/ L [facility] Remisol CO2 [Moles/Vol] 24 mmol/L Normal 21 - 31 mmol/L [facility] Remisol Creatinine [Mass/Vol] 1.9 mg/dL High 0.5 - 1.3 mg/dL [facility] Remisol GFR/1.73 sq M.predicted among non-blacks MDRD (S/P/Bld) [Vol rate/Area] 28 mL/min/1.73 m2 Low >=59mL/min/1.73 m2 [facility] Chem S Comment on above: Interpretive Data: C hronic kidney disease could be indicated at eGFR's of less than 60 mL/min/1.73m2. Kidney failure is indicated at less than 15 mL/min/1.73m2. Glucose [Mass/Vol] 160 mg/dL Normal 55 - 199 mg/dL [facility] Comment on above: Interpretive Data: I f this glucose result represents a fasting glucose, interpretation should refer to the following reference range: 55-99 mg/dL Potassium [Moles/Vol] 3.4 mmol/L Low 3.5 - 5.3 mmol/L [facility] Remisol Sodium [Moles/Vol] 140 mmol/L Normal 135 - 145 mmol/L [facility] Remisol Urea nitrogen [Mass/Vol] 30 mg/dL High 5 - 21 mg/dL [facility] Remisol Urea nitrogen/Creatinine [Mass ratio] 16 mg/mg Normal 10 - 20 [facility] Remisol Capillary Glucose POCon 05-02 Glucose [Mass/Vol] 156 mg/dL High 55-99 [facility] Comment on above: Result Comment: Sheryl minda Meter Performed By: #### 2 [id number] ####[facility] [address] [place] [address] Glucose [Mass/Vol] 206 mg/dL High [address] [place] [address] Comment on above: Result Comment: Sheryl minda Meter Performed By: #### 2 36496775 ####[facility] [address] [place] [address] Glucose [Mass/Vol] 214 mg/dL High - [facility] Comment on above: Result Comment: Sheryl minda Meter Performed By: #### 2 79480235 ####[facility] [address] [place] [address] Glucose [Mass/Vol] 205 mg/dL [facility] [address] [place] [address] Comment on above: Result Comment: Modesto vanegas RN/MD Performed By: #### 2 46895331 ####[facility] [address] [place] [address] Interdisciplinary Note - PTo n 05-29-2023 Interdisciplinary Note - PT Normal [facility] Message from Medicareon 05-02 Message from Medicare [id number]# 1.00CD:127 [facility] No Panel InformationOrdered By: ANGPROCESSSERVER MICROBIOLOGY on 05-29-2023 Blood Culture Charcoal No growth at 4 days. Final to follow at 7 days. [facility] Progress Note-Physicianon Progress Note-Physician Normal [facility] Comment on above: Result Comment: Elec tronically Signed By: ISHAN CHISHOLM, Irisfo\.br\Date and Time Signed: 05/29/23 15:21 EDT eGFRon 05-29-2023 GFR/1.73 sq M.predicted among non-blacks MDRD (S/P/Bld) [Vol rate/Area] 28 mL/min/1.73 m2 Low >=59 [facility] Comment on above: Order Comment: Order added by Discern Expert. Result Comment: Seal Mixer maxi kidney disease could be indicated at eGFR's of less than 60 mL/min/1.73m2. Kidney failure is indicated at less than 15 mL/min/1.73m2. Performed By: #### 2 443715, 3695582, 9335161, 27270710 ####[facility] [address] [place] [address] Auto DiffOrdered By: SYSTEM SYSTEM on 05-28-2023 Basophils/100 WBC (Bld) 0.2 % Normal 0.0-2.0 [facility] Comment on above: Order Comment: Order Added by Discern Expert. Performed By: #### 2 532358, 82477058, 2811418, 7025314 ####[facility] [address] [place] [address] Basophils/Leukocytes Auto (Bld) [Pure # fraction] 0.0 E9/L Normal 0.0-0.2 [facility] Comment on above: Order Comment: Order Added by Discern Expert. Performed By: #### 2 051289, 52497638, 6210016, 4243199 ####[facility] [address] [place] [address] Eosinophils/100 WBC (Bld) 0.1 % Normal 0.0-8.0 [facility] Comment on above: Order Comment: Order Added by Christen Expert. Performed By: #### 2 437385, 59449983, 7024502, 2928780 ####[address] [address] Eosinophils/Leukocyt es Auto (Bld) [Pure # fraction] 0.0 E9/L Normal 0.0-0.5 [facility] Comment on above: Order Comment: Order Added by Christen Expert. Performed By: #### 2 310819, 69955916, 8747388, 4201179 ####[address] [address] Lymphocytes/100 WBC (Bld) 2.6 % Low 14.0-50.0 [facility] Comment on above: Order Comment: Order Added by Discern Expert. Performed By: #### 2 439728, 23600830, 2515864, 8679117 ####[address] [address] Lymphocytes/Leukocyt es Auto (Bld) [Pure # fraction] 0.3 E9/L Low 1.0-4.0 [facility] Comment on above: Order Comment: Order Added by Christen Expert. Performed By: #### 2 682025, 39527438, 5817410, 4966687 ####[address] [address] Monocytes/100 WBC (Bld) 3.8 % Low 4.0-14.0 [facility] Comment on above: Order Comment: Order Added by Christen Expert. Performed By: #### 2 080563, 54469019, 6537563, 1379587 ####[address] [address] Monocytes/Leukocytes Auto (Bld) [Pure # fraction] 0.5 E9/L Normal 0.2-1.0 [facility] Comment on above: Order Comment: Order Added by Christen Expert. Performed By: #### 2 590778, 85883887, 0707256, 4803081 ####[address] [address] Neutrophils/100 WBC (Bld) 93.3 % High 36.0-75.0 [facility] Comment on above: Order Comment: Order Added by Christen Expert. Performed By: #### 2 510837, 50397105, 9991047, 9159262 ####[address] [address] Neutrophils/Leukocyt es Auto (Bld) [Pure # fraction] 11.2 E9/L High 2.0-7.5 [facility] Comment on above: Order Comment: Order Added by Discern Expert. Performed By: #### 2 396747, 75277994, 8789996, 7228226 ####[facility] [address] [place] [address] BMPon 05-28-2023 Anion gap [Moles/Vol] 11 mmol/L Normal 6-16 [facility] Comment on above: Performed By: #### 2 011519, 95863799, 5827274, 6934659 ####[facility] [address] [place] [address] Calcium [Mass/Vol] 8.0 mg/dL Low 8.9-11.1 [facility] Comment on above: Performed By: #### 2 148191, 21887071, 3746395, 7603159 ####[facility] [address] [place] [address] Chloride [Moles/Vol] 109 mmol/L Normal 101-111 [facility] Comment on above: Performed By: #### 2 393062, 15639288, 7962355, 0285539 ####[facility] [address] [place] [address] CO2 [Moles/Vol] 22 mmol/L Normal 21-31 [facility] Comment on above: Performed By: #### 2 381253, 05543342, 0211242, 5089559 ####[facility] [address] [place] [address] Creatinine [Mass/Vol] 2.0 mg/dL High 0.5-1.3 [facility] Comment on above: Performed By: #### 2 057436, 87829354, 3429090, 8335964 ####[facility] [address] [place] [address] Glucose [Mass/Vol] 161 mg/dL Normal 55-199 [facility] Comment on above: Result Comment: If t his glucose result represents a fasting glucose, interpretation should refer to the following reference range: 55-99 mg/dL Performed By: #### 2 284965, 73172763, 4499816, 4839875 ####[facility] [address] [place] [address] Potassium [Moles/Vol] 3.5 mmol/L Normal 3.5-5.3 [facility] Comment on above: Performed By: #### 2 369058, 73366676, 3001795, 8407134 ####[facility] [address] [place] [address] Sodium [Moles/Vol] 138 mmol/L Normal 135-145 [facility] Comment on above: Performed By: #### 2 931946, 57482848, 9513353, 9754493 ####[facility] [address] [place] [address] Urea nitrogen [Mass/Vol] 25 mg/dL High 5-21 [facility] Comment on above: Performed By: #### 2 502677, 52221664, 0731527, 9691240 ####[facility] [address] [place] [address] Urea nitrogen/Creatinine [Mass ratio] 12 No Units Normal 10-20 [facility] Comment on above: Performed By: #### 2 910516, 95192390, 0890406, 3927877 ####[facility] [address] [place] [address] CBC w/ Auto DiffOrdered By: Rayne Barnhart on 05-28-2023 Erythrocyte distribution width (RBC) [Ratio] 13.5 % Normal 10.9-14.2 [facility] Comment on above: Performed By: #### 2 892106, 89227603, 8853471, 8208578 ####[facility] [address] [place] [address] Hematocrit (Bld) [Volume fraction] 36.0 % Normal 34.0-46.0 [facility] Comment on above: Performed By: #### 2 670978, 76499670, 4960148, 6210419 ####[address] [address] Hemoglobin (Bld) [Mass/Vol] 12.3 g/dL Normal 12.0-16.0 [facility] Comment on above: Performed By: #### 2 486487, 48217539, 5186219, 8775560 ####[address] [address] MCH (RBC) [Entitic mass] 31.0 pg Normal 27.0-34.0 [facility] Comment on above: Performed By: #### 2 954397, 92734094, 7946666, 2537422 ####[address] [address] MCHC (RBC) [Mass/Vol] 34.2 g/dL Normal 31.4-36.0 [facility] Comment on above: Performed By: #### 2 102431, 96108262, 2768087, 8861611 ####[address] [address] MCV (RBC) [Entitic vol] 90.7 fL Normal 80.0-100.0 [facility] Comment on above: Performed By: #### 2 879493, 56663241, 1500319, 8101035 ####[address] [address] Platelet mean volume (Bld) [Entitic vol] 7.3 fL Normal 6.4-10.8 [facility] Comment on above: Performed By: #### 2 418637, 26239246, 3948308, 8907275 ####[address] [address] Platelets (Bld) [#/Vol] 154.0 E9/L Normal 150.0-500.0 [facility] Comment on above: Performed By: #### 2 783272, 96845722, 6522440, 4603072 ####[address] [place] [address] RBC (Bld) [#/Vol] 4.0 E12/L Low 4.3-5.9 [facility] Comment on above: Performed By: #### 2 537868, 68398175, 4940840, 6683850 ####[address] [address] WBC corrected for nucl RBC Auto (Bld) [#/Vol] 12.0 E9/L High 4.0-11.0 [facility] Comment on above: Performed By: #### 2 481179, 52451108, 1947870, 2889062 ####[address] [address] Capillary Glucose POCon 05-01 Glucose [Mass/Vol] 145 mg/dL High 55-99 [facility] Comment on above: Result Comment: Modesto ANDRES Performed By: #### 2 85225411 ####[address] [address] Glucose [Mass/Vol] 140 mg/dL High 55-99 [facility] Comment on above: Result Comment: [place] ANDRES Performed By: #### 2 77382170 ####[address] [address] Glucose [Mass/Vol] 122 mg/dL High 55-99 [facility] Comment on above: Result Comment: Modesto ANDRES Performed By: #### 2 96896510 ####[address] [address] Glucose [Mass/Vol] 173 mg/dL High 55-99 [facility] Comment on above: Result Comment: Modesto ANDRES Performed By: #### 2 11319326 ####[address] [address] Consent for Anesthesiaon Consent for Anesthesia [id number]# 1.00CD:127 Normal [facility] Insurance Correspondence Off iceon 05-28-2023 Insurance Correspondence Office [id number]#1 .00CD:127 Normal [facility] Interdisciplinary Note - Galo e Manageron 05-28-2023 Interdisciplinary Note - Cylinder Valve Repairer [facility] Comment on above: Result Comment: Elec tronically Signed By: Rayne Carpenter\.br\Date and Time Signed: 05/28/23 12:00 EDT IntraOperative Documentson 0 05-28-2023 IntraOperative Documents [id number]# 1.00CD:127 Normal [facility] Laboratory - Microbiology an d Antimicrobial susceptibilityOrdered By: Nata Prieto on 05-28-2023 Bacteria identified Cx Nom (U) 25,000 cfu/ml Anastacia albicans Presumptive isolated. [facility] Main OR Intraoperative Recor don 05-28-2023 Main OR Intraoperative Record Normal [facility] Progress Note-Physicianon Progress Note-Physician Normal [facility] Comment on above: Result Comment: Elec tronically Signed By: ISHAN CHISHOLM, Felice\.br\Date and Time Signed: 05/28/23 09:20 EDT UA With Cult Reflexon 2022 Bacteria LM Ql (Urine sed) 2+ /HPF Abnormal Trace [facility] Comment on above: Order Comment: Urina ry Catheter Insertion triggered Urinalysis With Culture Reflex order by discern. Performed By: #### 1 4455607, 9403303 ####[facility] [address] [place] [address] Bilirubin Ql (U) Negative Normal Negative [facility] Comment on above: Order Comment: Urina ry Catheter Insertion triggered Urinalysis With Culture Reflex order by discern. Performed By: #### 1 7453772, 4520059 ####[facility] [address] [place] [address] Clarity (U) SL CLOUDY Abnormal Clear [facility] Comment on above: Order Comment: Urina ry Catheter Insertion triggered Urinalysis With Culture Reflex order by discern. Performed By: #### 1 5500785, 7038100 ####[facility] [address] [place] [address] Color (U) YELLOW Normal Yellow [facility] Comment on above: Order Comment: Urina ry Catheter Insertion triggered Urinalysis With Culture Reflex order by discern. Performed By: #### 1 9324169, 1454552 ####[facility] [address] [place] [address] Crystals LM Ql (Urine sed) Present Normal [facility] Comment on above: Order Comment: Urina ry Catheter Insertion triggered Urinalysis With Culture Reflex order by discern. Performed By: #### 1 1420358, 8862928 ####[facility] [address] [place], [place] [address] Epithelial cells.squamous LM.HPF (Urine sed) [#/Area] 0-2 Normal 0-2 [facility] Comment on above: Order Comment: Urina ry Catheter Insertion triggered Urinalysis With Culture Reflex order by discern. Performed By: #### 1 4645033, 7966003 ####[facility] [address] [place], [place] [address] Glucose Test strip (U) [Mass/Vol] Negative Normal Negative [facility] Comment on above: Order Comment: Urina ry Catheter Insertion triggered Urinalysis With Culture Reflex order by discern. Performed By: #### 1 7473486, 6163879 ####[facility] [address] [place] [address] Hemoglobin Ql (U) 3+ Abnormal Negative [facility] Comment on above: Order Comment: Urina ry Catheter Insertion triggered Urinalysis With Culture Reflex order by discern. Performed By: #### 1 1613751, 1192974 ####[facility] [address] [place] [address] Ketones (U) [Mass/Vol] Negative Normal Negative [facility] Comment on above: Order Comment: Urina ry Catheter Insertion triggered Urinalysis With Culture Reflex order by discern. Performed By: #### 1 0748755, 1870880 ####[facility] [address] [place] [address] Kenvir.plasma/Lithi um.RBC (Bld) [Mass ratio] 0-3 Normal 0-3 [facility] Comment on above: Order Comment: Urina ry Catheter Insertion triggered Urinalysis With Culture Reflex order by discern. Performed By: #### 1 0883618, 4818130 ####[facility] [address] [place] [address] Nitrite Ql (U) Negative Normal Negative [facility] Comment on above: Order Comment: Urina ry Catheter Insertion triggered Urinalysis With Culture Reflex order by discern. Performed By: #### 1 3934635, 9528947 ####[address] [address] pH (U) 5.5 [pH] Invalid Interpretation Code 5.0-9.0 [facility] Comment on above: Order Comment: Urina ry Catheter Insertion triggered Urinalysis With Culture Reflex order by discern. Performed By: #### 1 4267483, 6227178 ####[address] [address] Protein (U) [Mass/Vol] 1+ Abnormal Negative [facility] Comment on above: Order Comment: Urina ry Catheter Insertion triggered Urinalysis With Culture Reflex order by discern. Performed By: #### 1 6116969, 3684254 ####[address] [address] Specific gravity (U) [Rel density] 1.015 Invalid Interpretation Code 1.005-1.030 [facility] Comment on above: Order Comment: Urina ry Catheter Insertion triggered Urinalysis With Culture Reflex order by discern. Performed By: #### 1 5967588, 2316201 ####[facility] [address] [place] [address] UA Spec Desc Catheter Normal [facility] Comment on above: Order Comment: Urina ry Catheter Insertion triggered Urinalysis With Culture Reflex order by discern. Performed By: #### 1 0335659, 3225699 ####[facility] [address] [place] [address] Urobilinogen Qn (U) 0.2 {Isis'U}/dL Normal 0.0-1.0 [facility] Comment on above: Order Comment: Urina ry Catheter Insertion triggered Urinalysis With Culture Reflex order by discern. Performed By: #### 1 0943403, 8794439 ####[facility] [address] [place] [address] WBC Auto Ql (U) 2+ Abnormal Negative [facility] Comment on above: Order Comment: Urina ry Catheter Insertion triggered Urinalysis With Culture Reflex order by discern. Performed By: #### 1 9853720, 3422527 ####[facility] [address] [place] [address] WBC LM.HPF (Urine sed) [#/Area] /[HPF] Abnormal 0-5 [facility] Comment on above: Order Comment: Urina ry Catheter Insertion triggered Urinalysis With Culture Reflex order by discern. Performed By: #### 1 0106079, 6162076 ####[facility] [facility] [address] [place] [address] Yeast LM Ql (Urine sed) 3+ Normal [facility] Comment on above: Order Comment: Urina ry Catheter Insertion triggered Urinalysis With Culture Reflex order by discern. Performed By: #### 1 [id number], [id number] ####[facility] [address] [place] [address] URINALYSISOrdered By: Diony Benitez on 05-28-2023 Bacteria LM Ql (Urine sed) 2+ /HPF Invalid Interpretation Code Trace/HPF [facility] UA Auto SS Bilirubin Ql (U) Negative (05/28/23 5:15 PM) Normal Negative [facility] UA Auto SS Clarity (U) Slightly Cloudy *ABN* (05/28/23 5:15 PM) Invalid Interpretation Code Clear [facility] UA Auto SS Color (U) Yellow (05/28/23 5:15 PM) Normal Yellow [facility] UA Auto SS Crystals LM Ql (Urine sed) Present (05/28/23 5:15 PM) Normal [facility] UA Auto SS Epithelial cells.squamous LM.HPF (Urine sed) [#/Area] 0-2 /HPF Normal 0-2/HPF [facility] UA Auto SS Glucose Test strip (U) [Mass/Vol] Negative (05/28/23 5:15 PM) Normal Negative [facility] UA Auto SS Hemoglobin Ql (U) 3+ *ABN* (05/28/23 5:15 PM) Invalid Interpretation Code Negative [facility] UA Auto SS Ketones (U) [Mass/Vol] Negative (05/28/23 5:15 PM) Normal Negative [facility] UA Auto SS Kenvir.plasma/Lithi um.RBC (Bld) [Mass ratio] 0-3 /HPF Normal 0-3/HPF [facility] UA Auto SS Nitrite Ql (U) Negative (05/28/23 5:15 PM) Normal Negative [facility] UA Auto SS pH (U) 5.5 *NA* (05/28/23 5:15 PM) Invalid Interpretation Code 5.0 - 9.0 [facility] UA Auto SS Protein (U) [Mass/Vol] 1+ *ABN* (05/28/23 5:15 PM) Invalid Interpretation Code Negative [facility] UA Auto SS Specific gravity (U) [Rel density] 1.015 *NA* (05/28/23 5:15 PM) Invalid Interpretation Code 1.005 - 1.030 [facility] UA Auto SS UA Spec Desc Catheter (05/28/23 5:15 PM) Normal [facility] UA Auto SS Urobilinogen Qn (U) 0.6665865 {Isis'U}/dL Normal 0.0 - 1.0 EU/dL [facility] UA Auto SS WBC Auto Ql (U) 2+ *ABN* (05/28/23 5:15 PM) Invalid Interpretation Code Negative [facility] UA Auto SS WBC LM.HPF (Urine sed) [#/Area] /[HPF] Invalid Interpretation Code 0-5/HPF [facility] UA Auto SS Yeast LM Ql (Urine sed) 3+ (05/28/23 5:15 PM) Normal [facility] UA Auto SS eGFRon 05-28-2023 GFR/1.73 sq M.predicted among non-blacks MDRD (S/P/Bld) [Vol rate/Area] 26 mL/min/1.73 m2 Low >=59 [facility] Comment on above: Order Comment: Order added by Discern Expert. Result Comment: Seal Mixer maxi kidney disease could be indicated at eGFR's of less than 60 mL/min/1.73m2. Kidney failure is indicated at less than 15 mL/min/1.73m2. Performed By: #### 2 660727, 59014719, 6311348, 7737731 ####[address] [address] Auto DiffOrdered By: SYSTEM SYSTEM on 05-27-2023 Basophils/100 WBC (Bld) 0.3 % Normal 0.0-2.0 [facility]SS Comment on above: Order Comment: Order Added by Discern Expert. Performed By: #### 2 398616, 8061603, 23782978, 2402141 ####[place] [address] [address] Basophils/Leukocytes Auto (Bld) [Pure # fraction] 0.1 E9/L Normal 0.0-0.2 [facility] Comment on above: Order Comment: Order Added by Discern Expert. Performed By: #### 2 246623, 6378744, 46191781, 7712100 ####[place] [address] [address] Eosinophils/100 WBC (Bld) 0.1 % Normal 0.0-8.0 [facility] Comment on above: Order Comment: Order Added by Discern Expert. Performed By: #### 2 488154, 7113277, 64781583, 4524316 ####[place] [address] [address] Eosinophils/Leukocyt es Auto (Bld) [Pure # fraction] 0.0 E9/L Normal 0.0-0.5 [facility] Comment on above: Order Comment: Order Added by Discern Expert. Performed By: #### 2 674301, 7653434, 87746857, 4825230 ####[address] [address] Lymphocytes/100 WBC (Bld) 4.0 % Low 14.0-50.0 [facility] Comment on above: Order Comment: Order Added by Discern Expert. Performed By: #### 2 981468, 7305745, 39273417, 9501475 ####[address] [place] [address] Lymphocytes/Leukocyt es Auto (Bld) [Pure # fraction] 0.7 E9/L Low 1.0-4.0 [facility] Comment on above: Order Comment: Order Added by Discern Expert. Performed By: #### 2 106961, 4486399, 70589674, 4997810 ####[address] [address] Monocytes/100 WBC (Bld) 4.8 % Normal 4.0-14.0 [facility] Comment on above: Order Comment: Order Added by Discern Expert. Performed By: #### 2 051333, 3280043, 33608640, 6014383 ####[address] [address] Monocytes/Leukocytes Auto (Bld) [Pure # fraction] 0.8 E9/L Normal 0.2-1.0 [facility] Comment on above: Order Comment: Order Added by Discern Expert. Performed By: #### 2 344180, 4678343, 93843052, 9228296 ####[address] [address] Neutrophils/100 WBC (Bld) 90.8 % High 36.0-75.0 [facility] Comment on above: Order Comment: Order Added by Discern Expert. Performed By: #### 2 530761, 1049647, 67003235, 1234470 ####[address] [address] Neutrophils/Leukocyt es Auto (Bld) [Pure # fraction] 15.7 E9/L High 2.0-7.5 [facility] Comment on above: Order Comment: Order Added by Discern Expert. Performed By: #### 2 506617, 9697212, 89459122, 6080121 ####[address] [address] BMPon 05-27-2023 Anion gap [Moles/Vol] 10 mmol/L Normal 6-16 [facility] Comment on above: Performed By: #### 2 016075, 5095494, 85990657, 8948069 ####[facility] [address] [place] [address] Calcium [Mass/Vol] 8.0 mg/dL Low 8.9-11.1 [facility] Comment on above: Performed By: #### 2 180402, 2633255, 75583486, 5281335 ####[facility] [address] [place] [address] Chloride [Moles/Vol] 112 mmol/L High 101-111 [facility] Comment on above: Performed By: #### 2 938303, 1148774, 43722375, 8756641 ####[facility] [address] [place] [address] CO2 [Moles/Vol] 22 mmol/L Normal 21-31 [facility] Comment on above: Performed By: #### 2 863270, 3718294, 64924805, 2546395 ####[facility] [address] [place] [address] Creatinine [Mass/Vol] 1.9 mg/dL High 0.5-1.3 [facility] Comment on above: Performed By: #### 2 413789, 1693370, 14639416, 0752782 ####[facility] [address] [place] [address] Glucose [Mass/Vol] 342 mg/dL High 55-199 [facility] Comment on above: Result Comment: If t his glucose result represents a fasting glucose, interpretation should refer to the following reference range: 55-99 mg/dL Performed By: #### 2 982534, 7224602, 13149981, 4328502 ####[facility] [address] [place] [address] Potassium [Moles/Vol] 4.3 mmol/L Normal 3.5-5.3 [facility] Comment on above: Performed By: #### 2 683576, 1055907, 15677177, 2618219 ####[facility] [address] [place] [address] Sodium [Moles/Vol] 140 mmol/L Normal 135-145 [facility] Comment on above: Performed By: #### 2 797031, 0677019, 86078339, 6594501 ####[facility] [address] [place] [address] Urea nitrogen [Mass/Vol] 22 mg/dL High 5-21 [facility] Comment on above: Performed By: #### 2 750474, 5001187, 72630308, 8738483 ####[facility] [address] [place] [address] Urea nitrogen/Creatinine [Mass ratio] 12 No Units Normal 10-20 [facility] Comment on above: Performed By: #### 2 627320, 9525148, 38974974, 8501989 ####[facility] [address] [place] [address] CBC w/ Auto DiffOrdered By: Mary Dawkins on 05-27-2023 Erythrocyte distribution width (RBC) [Ratio] 13.6 % Normal 10.9-14.2 [facility] Comment on above: Performed By: #### 2 052050, 0735308, 09324344, 1483434 ####[facility] [address] [place] [address] Hematocrit (Bld) [Volume fraction] 38.9 % Normal 34.0-46.0 [facility] Comment on above: Performed By: #### 2 563950, 4944352, 77416987, 1236222 ####[facility] [address] [place] [address] Hemoglobin (Bld) [Mass/Vol] 13.0 g/dL Normal 12.0-16.0 [facility] Comment on above: Performed By: #### 2 039928, 4041856, 83853953, 0437992 ####[facility] [address] [place] [address] MCH (RBC) [Entitic mass] 30.5 pg Normal 27.0-34.0 [facility] Comment on above: Performed By: #### 2 089821, 9552497, 78029968, 5071914 ####[address] [address] MCHC (RBC) [Mass/Vol] 33.4 g/dL Normal 31.4-36.0 [facility] Comment on above: Performed By: #### 2 786277, 7689997, 65698135, 5235939 ####[place] [address]57 MCV (RBC) [Entitic vol] 91.5 fL Normal 80.0-100.0 [facility] Comment on above: Performed By: #### 2 640064, 8637096, 09818310, 9472453 ####[address] [address] Platelet mean volume (Bld) [Entitic vol] 7.5 fL Normal 6.4-10.8 [facility]eAuto[facility] Comment on above: Performed By: #### 2 271115, 4324739, 02316851, 2456089 ####[address] [address] Platelets (Bld) [#/Vol] 181.0 E9/L Normal 150.0-500.0 [facility] Comment on above: Performed By: #### 2 415182, 5965894, 49097049, 4238519 ####[place] [address]757 RBC (Bld) [#/Vol] 4.2 E12/L Low 4.3-5.9 [facility] Comment on above: Performed By: #### 2 986766, 8342834, 67732838, 5749725 ####[address] [address] WBC corrected for nucl RBC Auto (Bld) [#/Vol] 17.2 E9/L High 4.0-11.0 [facility] Comment on above: Result Comment: Slid e reviewed by BR. Result Comment: Slid e reviewed by BR. Performed By: #### 2 991863, 7997210, 30970169, 9062552 ####[facility] [address] [place] [address] CT Abdomen/Pelvis w/o Contra ston 05-27-2023 CT Abdomen/Pelvis w/o Contrast Normal [facility] Capillary Glucose POCon 05-01 Glucose [Mass/Vol] 320 mg/dL High 55-99 [facility] Comment on above: Performed By: #### 2 22349577 ####[facility] [address] [facility] [place] [address] Glucose [Mass/Vol] 323 mg/dL High 55-99 [facility] Comment on above: Performed By: #### 2 61875858 ####[facility] [address] [facility] [place] [address] Glucose [Mass/Vol] 378 mg/dL High 55-99 [facility] Comment on above: Result Comment: Modesto vanegas RN/ Performed By: #### 2 22705724 ####[facility] [address] [facility] [place] [address] Glucose [Mass/Vol] 353 mg/dL High 55-99 [facility] Comment on above: Result Comment: Sheryl minda Meter Performed By: #### 2 81977737 ####[facility] [address] [facility] [place] [address] Glucose [Mass/Vol] 321 mg/dL High 55-99 [facility] Comment on above: Result Comment: [place] ANDRES Performed By: #### 2 76822493 ####[facility] [address] [place] [address] Consent for Procedure/Surger yon 05-27-2023 Consent for Procedure/Surgery [id number]#1 .00CD:127 Normal [facility] Consultation Noteon 05-27-20 23 Consultation Note Normal [facility] Comment on above: Result Comment: Elec tronically Signed By: Orestes JACQUES MD\.br\Date and Time Signed: 05/27/23 08:09 EDT ED Note-Physicianon 05-27-20 ED Note-Physician Normal [facility] Comment on above: Result Comment: Elec tronically Signed By: Blaire Myers DO.br\Date and Time Signed: 05/27/23 00:15 EDT Main OR PACU I Recordon 05-01 Main OR PACU I Record Normal [facility] Monitor Recordon 05-27-2023 Monitor Record [id number]# 1.00CD:127 Normal [facility] Monitor Record [id number]# 1.00CD:127 Normal [facility] Monitor Record [id number]# 1.00CD:127 Normal [facility] No Panel InformationOrdered By: Nata Prieto on 05-27-2023 Blood Culture Charcoal Anastacia albicans isolated. In 1 of 1 blood culture bottles drawn. Isolated from pediatric bottle Preliminary gram stain result of yeast Result called to Dr. Marx by [facility] and results read back for confirmation on 05/29/2023 12:22:06 [facility] No Panel InformationOrdered By: Ramona Christie on 05-27-2023 Blood Culture Charcoal Anastacia albicans In 1 of 2 blood culture bottles drawn. Isolated from aerobic bottle Preliminary gram stain result of yeast Result called to Dr. Marx by [facility] and results read back for confirmation on 05/29/2023 12:23. [facility] Operative Reporton Operative Report Normal [facility] Comment on above: Result Comment: Elec tronically Signed By: Orestes JACQUES MD\.br\Date and Time Signed: 05/27/23 08:13 EDT eGFRon 05-27-2023 GFR/1.73 sq M.predicted among non-blacks MDRD (S/P/Bld) [Vol rate/Area] 28 mL/min/1.73 m2 Low >=59 [facility] Comment on above: Order Comment: Order added by Discern Expert. Result Comment: Seal Mixer maxi kidney disease could be indicated at eGFR's of less than 60 mL/min/1.73m2. Kidney failure is indicated at less than 15 mL/min/1.73m2. Performed By: #### 2 366565, 6873737, 57214311, 0841191 ####[facility] [address] [place] [address] Auto Diffon 05-26-2023 Basophils/100 WBC (Bld) 0.1 % Normal 0.0-2.0 [facility] Comment on above: Order Comment: Order Added by Christen Expert. Performed By: #### 2 122600, 88772121, 9098635, 8685068, 4461144, 6937502 ####[place] [address] [place] [address] Basophils/Leukocytes Auto (Bld) [Pure # fraction] 0.0 E9/L Normal 0.0-0.2 [facility] Comment on above: Order Comment: Order Added by Discern Expert. Performed By: #### 2 727136, 44839628, 0299842, 1813931, 5345827, 6827640 ####[place] [address] [place] [address] Eosinophils/100 WBC (Bld) 0.0 % Normal 0.0-8.0 [facility] Comment on above: Order Comment: Order Added by Christen Expert. Performed By: #### 2 109382, 35622929, 9166631, 3871606, 4996812, 2216882 ####[facility] [address] [place] [address] Eosinophils/Leukocyt es Auto (Bld) [Pure # fraction] 0.0 E9/L Normal 0.0-0.5 [facility] Comment on above: Order Comment: Order Added by Christen Expert. Performed By: #### 2 338610, 18964473, 6838291, 3841950, 2489074, 6531153 ####[place] [address] [place] [address] Lymphocytes/100 WBC (Bld) 3.9 % Low 14.0-50.0 [facility] Comment on above: Order Comment: Order Added by Discern Expert. Performed By: #### 2 091899, 96050985, 1941996, 0230753, 5820121, 6993885 ####[place] [address] [place] [address] Lymphocytes/Leukocyt es Auto (Bld) [Pure # fraction] 0.7 E9/L Low 1.0-4.0 [facility] Comment on above: Order Comment: Order Added by Discern Expert. Performed By: #### 2 561816, 09866478, 7954973, 2988591, 3784322, 7456015 ####[address] [address] Monocytes/100 WBC (Bld) 6.6 % Normal 4.0-14.0 [facility] Comment on above: Order Comment: Order Added by Discern Expert. Performed By: #### 2 488947, 78339845, 6793979, 4232835, 4860578, 8534754 ####[address] [address] Monocytes/Leukocytes Auto (Bld) [Pure # fraction] 1.2 E9/L High 0.2-1.0 [facility] Comment on above: Order Comment: Order Added by Discern Expert. Performed By: #### 2 117250, 53503630, 8501099, 2349266, 0060506, 7278757 ####[place] [address] [place] [address] Neutrophils/100 WBC (Bld) 89.4 % High 36.0-75.0 [facility] Comment on above: Order Comment: Order Added by Discern Expert. Performed By: #### 2 370957, 94101547, 1991701, 3121570, 8569719, 9161446 ####[place] [address] [place] [address] Neutrophils/Leukocyt es Auto (Bld) [Pure # fraction] 16.6 E9/L High 2.0-7.5 [facility] Comment on above: Order Comment: Order Added by Discern Expert. Performed By: #### 2 869534, 73483548, 3344220, 3983101, 0403977, 1495360 ####[facility] [address] [place] [address] BMPon 05-26-2023 Anion gap [Moles/Vol] 13 mmol/L Normal 6-16 [facility] Comment on above: Performed By: #### 2 070211, 18393614, 2129444, 8683087, 5560200, 8600743 ####[facility] [address] [place] [address] Calcium [Mass/Vol] 8.9 mg/dL Normal 8.9-11.1 [facility] Comment on above: Performed By: #### 2 380033, 93024286, 5373259, 7852770, 4917008, 7524947 ####[facility] [address] [place] [address] Chloride [Moles/Vol] 106 mmol/L Normal 101-111 [facility] Comment on above: Performed By: #### 2 773587, 13603552, 3875478, 1530091, 0734209, 2849007 ####[facility] [address] [place] [address] CO2 [Moles/Vol] 25 mmol/L Normal 21-31 [facility] Comment on above: Performed By: #### 2 759254, 91785266, 3739698, 8435266, 2356291, 6605536 ####[facility] [address] [place] [address] Creatinine [Mass/Vol] 1.9 mg/dL High 0.5-1.3 [facility] Comment on above: Performed By: #### 2 564259, 17642513, 1194842, 1229415, 9355917, 5561777 ####[facility] [address] [place] [address] Glucose [Mass/Vol] 342 mg/dL High 55-199 [facility] Comment on above: Result Comment: If t his glucose result represents a fasting glucose, interpretation should refer to the following reference range: 55-99 mg/dL Performed By: #### 2 350342, 83405969, 4647591, 7521462, 0289493, 5822950 ####[facility] [address] [place] [address] Potassium [Moles/Vol] 3.9 mmol/L Normal 3.5-5.3 [facility] Comment on above: Performed By: #### 2 727030, 81095068, 7207576, 4907590, 0044292, 3437667 ####[facility] [address] [place] [address] Sodium [Moles/Vol] 140 mmol/L Normal 135-145 [facility] Comment on above: Performed By: #### 2 598623, 05060196, 7172606, 8289225, 1364786, 4098483 ####[facility] [address] [place] [address] Urea nitrogen [Mass/Vol] 19 mg/dL Normal 5-21 [facility] Comment on above: Performed By: #### 2 469015, 47421655, 0277763, 3688682, 1293433, 4228888 ####[facility] [address] [place] [address] Urea nitrogen/Creatinine [Mass ratio] 10 No Units Normal 10-20 [facility] Comment on above: Performed By: #### 2 454449, 25839380, 7397188, 2637134, 4334300, 4275158 ####[facility] [address] [place] [address] CBC w/ Auto Diffon 3 Erythrocyte distribution width (RBC) [Ratio] 13.6 % Normal 10.9-14.2 [facility] Comment on above: Performed By: #### 2 445561, 78593468, 4604597, 7307070, 3517752, 2798585 ####[address] [address] Hematocrit (Bld) [Volume fraction] 45.2 % Normal 34.0-46.0 [facility] Comment on above: Performed By: #### 2 157359, 11285707, 1484669, 8609316, 0030218, 0944197 ####[place] [address]57 Hemoglobin (Bld) [Mass/Vol] 15.2 g/dL Normal 12.0-16.0 [facility] Comment on above: Performed By: #### 2 929049, 17871732, 8839018, 8580416, 3930598, 2977149 ####[place] [address]5057 MCH (RBC) [Entitic mass] 30.5 pg Normal 27.0-34.0 [facility] Comment on above: Performed By: #### 2 797015, 75733716, 8704938, 6275265, 7303864, 3855095 ####[address] [address] MCHC (RBC) [Mass/Vol] 33.7 g/dL Normal 31.4-36.0 [facility] Comment on above: Performed By: #### 2 646291, 25817732, 6041167, 1106386, 8097799, 4411629 ####[address] [address] MCV (RBC) [Entitic vol] 90.3 fL Normal 80.0-100.0 [facility] Comment on above: Performed By: #### 2 082661, 44102159, 1066975, 8849829, 9579165, 6809709 ####[address] [address] Platelet mean volume (Bld) [Entitic vol] 7.1 fL Normal 6.4-10.8 [facility] Comment on above: Performed By: #### 2 676091, 40723127, 9285979, 3926525, 1403927, 2828672 ####[facility] [address] [place] [address] Platelets (Bld) [#/Vol] 256.0 E9/L Normal 150.0-500.0 [facility] Comment on above: Performed By: #### 2 451934, 87412839, 0469753, 8045112, 7222141, 5422058 ####[facility] [address] [place] [address] RBC (Bld) [#/Vol] 5.0 E12/L Normal 4.3-5.9 [facility] Comment on above: Performed By: #### 2 374329, 61769617, 7134530, 1035262, 8127594, 1768257 ####[facility] [address] [place] [address] WBC corrected for nucl RBC Auto (Bld) [#/Vol] 18.6 E9/L High 4.0-11.0 [facility] Comment on above: Result Comment: Slid e reviewed by COBY Performed By: #### 2 345258, 24455393, 2104923, 1951424, 7827694, 4916085 ####[facility] [address] [place] [address] CHEMISTRYOrdered By: SYSTEM SYSTEM on 05-26-2023 Albumin/Globulin [Mass ratio] 0.8 {ratio} Low 1.1 - 2.2 [facility] Remisol ALP [Catalytic activity/Vol] 72 [iU]/d Normal 21 - 98 Int._Unit/L [facility] Remisol ALT No additional P-5'-P [Catalytic activity/Vol] 16 [iU]/d Normal 6 - 46 Int._Unit/L [facility] Remisol AST [Catalytic activity/Vol] 16 [iU]/d Normal 5 - 43 Int._Unit/L [facility] Remisol Consent for Treatmenton 05-01 Consent for Treatment [id number]#1 .00CD:127 Normal [facility] DAPTOMYCIN:SUSC:PT:ISOLATE:O RDQN:MICOrdered By: Nata Prieto on 05-26-2023 DAPTOmycin LAUREN [Susc] 20,000 cfu/ml Staphylococcus haemolyticus 2,000 cfu/ml Mixed skin contaminants [facility] DAPTOmycin LAUREN [Susc]Ordered By: Nata Prieto on 05-26-2023 Staphylococcus haemolyticus Staphylococcus haemolyticus [facility] Hep Func PanelOrdered By: [employer] SYSTEM on 05-26-2023 Albumin [Mass/Vol] 3.3 g/dL Normal 3.3-5.0 [facility] R emisol Comment on above: Performed By: #### 2 708974, 88223873, 2957393, 7897138, 2880795, 2523441 ####[address] [address] Bilirubin [Mass/Vol] 1.3 mg/dL High 0.0-1.1 [facility] Comment on above: Performed By: #### 2 880584, 52564871, 2989455, 1668439, 7647071, 3082012 ####[facility] [address] [place] [address] Bilirubin.direct [Mass/Vol] 0.2 mg/dL Normal 0.1-0.4 [facility] Comment on above: Performed By: #### 2 652147, 37321300, 7462657, 2074879, 1375928, 6463961 ####[address] [address] Bilirubin.indirect [Mass or moles/Vol] 1.1 mg/dL High 0.1-0.9 [facility] Comment on above: Performed By: #### 2 432554, 36882497, 4911965, 0632135, 5306911, 0392344 ####[address] [address] Globulin (S) [Mass/Vol] 4.1 g/dL High 1.4-4.0 [facility] Comment on above: Performed By: #### 2 711821, 54599239, 3346691, 5425385, 7939651, 0435308 ####[facility] [address] [place] [address] Protein [Mass/Vol] 7.4 g/dL Normal 6.0-7.8 [facility] emisol Comment on above: Performed By: #### 2 326467, 33748460, 4616788, 5309776, 9446088, 2875386 ####[facility] [address] [place] [address] Hep Func Panelon 05-26-2023 Albumin/Globulin (S) [Mass conc ratio] 0.8 Low 1.1-2.2 [facility] Comment on above: Performed By: #### 2 096531, 64564418, 1975856, 6247943, 7732108, 7469103 ####[address] [address] ALP [Catalytic activity/Vol] 72 Int._Unit/L Normal 21-98 [facility] Comment on above: Performed By: #### 2 938573, 53521063, 9790848, 6341087, 7930831, 4464854 ####[place] [address] [place] [address] ALT No additional P-5'-P [Catalytic activity/Vol] 16 Int._Unit/L Normal 6-46 [facility] Comment on above: Performed By: #### 2 516535, 67935645, 5830034, 3950591, 4269169, 1624130 ####[facility] [address] [place] [address] AST [Catalytic activity/Vol] 16 Int._Unit/L Normal 5-43 [facility] Comment on above: Performed By: #### 2 647259, [id number], 3629302, 0101052, 2437326, 3158209 ####[facility] [address] [place] [address] Lipase LevelOrdered By: SYST EM SYSTEM on 05-26-2023 Lipase [Catalytic activity/Vol] 33 U/L Normal 13-58 [facility] [place] [facility] Comment on above: Performed By: #### 2 120976, [id number], 8675388, 1421477, 3164618, 8664938 ####[facility] [address] [place] [address] RAD - Preliminary Cat Scan R eporton 05-26-2023 RAD - Preliminary Cat Scan Report [id number]# 1.00CD:127 Normal [facility] Troponin 0 Hr.Ordered By: [employer] SYSTEM on 05-26-2023 Troponin I.cardiac [Mass/Vol] 20.40 pg/mL Normal 10.10-27.10 [facility] [place] [facility] Comment on above: Interpretive Data: T he 95% CI (Confidence Interval) PPV (Positive Predictive Value) for myocardial infarction in females is 38 pg/mL, in males 51 pg/mL. The results should be used in conjunction with clinical conditions of myocardial infarction. (Fits[employer]me High Sensitivity Troponin I Instructions For Use, [employer], March 2018) Result Comment: The 95% CI (Confidence Interval) PPV (Positive Predictive Value) for myocardial infarction in females is 38 pg/mL, in males 51 pg/mL. The results should be used in conjunction with clinical conditions of myocardial infarction.(Fits[employer]me High Sensitivity Troponin I Instructions For Use, [employer], March 2018) Performed By: #### 1 [id number] ####[facility] [address] [place] [address] UA With Cult Reflexon 2022 Bacteria LM Ql (Urine sed) 1+ /HPF Abnormal Trace [facility] Comment on above: Performed By: #### 1 8273429, 5988115 ####[facility] [address] [place] [address] Bilirubin Ql (U) Negative Normal Negative [facility] Comment on above: Performed By: #### 1 [id number], 8569480 ####[facility] [address] [place] [address] Clarity (U) CLOUDY Abnormal Clear [facility] Comment on above: Performed By: #### 1 6493022, 3766048 ####[facility] [address] [place] [address] Color (U) YELLOW Normal Yellow [facility] Comment on above: Performed By: #### 1 1596915, 4691062 ####[facility] [address] [place] [address] Glucose Test strip (U) [Mass/Vol] 3+ Abnormal Negative [facility] Comment on above: Performed By: #### 1 9122008, 7698872 ####[facility] [address] [place] [address] Hemoglobin Ql (U) 2+ Abnormal Negative [facility] Comment on above: Performed By: #### 1 4398214, 9731391 ####[address] [address] Ketones (U) [Mass/Vol] 1+ Abnormal Negative [facility] Comment on above: Performed By: #### 1 6805019, 1346275 ####[address] [address] Kenvir.plasma/Lithi um.RBC (Bld) [Mass ratio] 4-20 Normal 0-3 [facility] Comment on above: Performed By: #### 1 4084932, 7826556 ####[facility] [address] [place] [address] Nitrite Ql (U) Positive Abnormal Negative [facility] Comment on above: Performed By: #### 1 8539707, 0698297 ####[facility] [address] [place] [address] pH (U) 5.5 [pH] Invalid Interpretation Code 5.0-9.0 [facility] Comment on above: Performed By: #### 1 1050750, 4200917 ####[address] [address] Protein (U) [Mass/Vol] 1+ Abnormal Negative [facility] Comment on above: Performed By: #### 1 0816700, 6280166 ####[facility] [address] [place] [address] Specific gravity (U) [Rel density] 1.020 Invalid Interpretation Code 1.005-1.030 [facility] Comment on above: Performed By: #### 1 4836664, 4340176 ####[place] [address] Type of Urine collection method Clean Catch Normal [facility] Comment on above: Performed By: #### 1 6994749, 3822145 ####[place] [address] Urobilinogen Qn (U) 1.0 {Isis'U}/dL Normal 0.0-1.0 [facility] Comment on above: Performed By: #### 1 0325228, 5246094 ####[place] [address] WBC Auto Ql (U) 2+ Abnormal Negative [facility] Comment on above: Performed By: #### 1 3263603, 2734263 ####[place] [address] UA With Cult ReflexOrdered B y: Maylin Lopez on 05-26-2023 Epithelial cells.squamous LM.HPF (Urine sed) [#/Area] /[HPF] Normal 0-2 [facility] [place] [facility] Auto SS Comment on above: Performed By: #### 1 0015521, 4737412 ####[place] [address] WBC LM.HPF (Urine sed) [#/Area] /[HPF] Abnormal 0-5 [facility] Auto SS Comment on above: Performed By: #### 1 0909234, 4493909 ####[place] [address] URINALYSISOrdered By: Ike Lopez on 05-26-2023 Bacteria LM Ql (Urine sed) 1+ /HPF Invalid Interpretation Code Trace/HPF [facility] UA Auto SS Bilirubin Ql (U) Negative (05/26/23 11:08 PM) Normal Negative [facility] UA Auto SS Clarity (U) Cloudy *ABN* (05/26/23 11:08 PM) Invalid Interpretation Code Clear [facility] UA Auto SS Color (U) Yellow (05/26/23 11:08 PM) Normal Yellow [facility] UA Auto SS Glucose Test strip (U) [Mass/Vol] 3+ *ABN* (05/26/23 11:08 PM) Invalid Interpretation Code Negative [facility] UA Auto SS Hemoglobin Ql (U) 2+ *ABN* (05/26/23 11:08 PM) Invalid Interpretation Code Negative [facility] UA Auto SS Ketones (U) [Mass/Vol] 1+ *ABN* (05/26/23 11:08 PM) Invalid Interpretation Code Negative [facility] UA Auto SS Kenvir.plasma/Lithi um.RBC (Bld) [Mass ratio] 4-20 /HPF Normal 0-3/HPF [facility] UA Auto SS Nitrite Ql (U) Positive *ABN* (05/26/23 11:08 PM) Invalid Interpretation Code Negative [facility] UA Auto SS pH (U) 5.5 *NA* (05/26/23 11:08 PM) Invalid Interpretation Code 5.0 - 9.0 [facility] UA Auto SS Protein (U) [Mass/Vol] 1+ *ABN* (05/26/23 11:08 PM) Invalid Interpretation Code Negative [facility] UA Auto SS Specific gravity (U) [Rel density] 1.020 *NA* (05/26/23 11:08 PM) Invalid Interpretation Code 1.005 - 1.030 [facility] UA Auto SS UA Spec Desc Clean Catch (05/26/23 11:08 PM) Normal [facility] UA Auto SS Urobilinogen Qn (U) 1.2479883 {Isis'U}/dL Normal 0.0 - 1.0 EU/dL [facility] UA Auto SS WBC Auto Ql (U) 2+ *ABN* (05/26/23 11:08 PM) Invalid Interpretation Code Negative [facility] UA Auto SS eGFRon 05-26-2023 GFR/1.73 sq M.predicted among non-blacks MDRD (S/P/Bld) [Vol rate/Area] 28 mL/min/1.73 m2 Low >=59 [facility] Comment on above: Order Comment: Order added by Discern Expert. Result Comment: Seal Mixer maxi kidney disease could be indicated at eGFR's of less than 60 mL/min/1.73m2. Kidney failure is indicated at less than 15 mL/min/1.73m2. Performed By: #### 2 885062, 05645040, 6794917, 0342614, 0317072, 0714669 ####[facility] [address] [place] [address] Consent for Procedure/Surger yon 05-25-2023 Consent for Procedure/Surgery [id number]#1 .00CD:127 Normal [facility] Consent for Treatmenton 09-2 Consent for Treatment [id number]#1 .00CD:127 Normal [facility] IntraOperative Documentson 0 05-25-2023 IntraOperative Documents [id number]#1 .00CD:127 Normal [facility] IntraOperative Documents [id number]# 1.00CD:127 Normal [facility] Main OR Intraoperative Recor don 05-25-2023 Main OR Intraoperative Record Normal [facility] Main OR Preoperative Recordo n 05-25-2023 Main OR Preoperative Record Normal [facility] Operative Reporton Operative Report Normal [facility] Comment on above: Result Comment: Elec tronically Signed By: JAILENE CHISHOLM, Glynn Neff.br\Date and Time Signed: 05/25/23 09:22 EDT Outpatient Surgery Discharge Instructionon 05-25-2023 Outpatient Surgery Discharge Instruction [id number]#1 .00CD:127 Normal [facility] Patient Educationon 05-25-20 Patient Education Normal [facility] Calculus Analysison 05-17-20 Color (Stone) [place] Invalid Interpretation Code [facility] Comment on above: Order Comment: Stone calculi from left ureter for analysis Performed By: #### 1 [id number] ####[facility] [address] [place] [address] Composition Comment Invalid Interpretation Code [facility] Comment on above: Order Comment: Stone calculi from left ureter for analysis Result Comment: Perc entage (Represents the % composition) Performed By: #### 1 9983198 ####[address] [address] Disclaimer: Comment Invalid Interpretation Code [facility] Comment on above: Order Comment: Stone calculi from left ureter for analysis Result Comment: This test was developed and its performance characteristicsdetermined by marker.to. It has not been cleared or approvedby the Food and Drug Administration.Performed at: [facility] [place] [address] [id number] PhD Srini Bell Performed By: #### 1 8952839 ####[address] [address] Laboratory comment Hu (Report) Comment Invalid Interpretation Code [facility] Comment on above: Order Comment: Stone calculi from left ureter for analysis Result Comment: Nicolas arora questions regarding Calculi Analysis [facility] at: [phone]. Performed By: #### 1 6567998 ####[place] [id number] Please Note: Comment Invalid Interpretation Code [facility] Comment on above: Order Comment: Stone calculi from left ureter for analysis Result Comment: Calc bernard report will follow via computer, mail or courierdelivery. Performed By: #### 1 2027625 ####[address] [address] Size (Stone) [Entitic vol] 3x2 Invalid Interpretation Code [facility] Comment on above: Order Comment: Stone calculi from left ureter for analysis Result Comment: Mult iple pieces received. Dimensions of the largest piecereported. Performed By: #### 1 7916921 ####[address] [address] Specimen source subject Nom Comment Invalid Interpretation Code [facility] Comment on above: Order Comment: Stone calculi from left ureter for analysis Result Comment: Left Ureter Performed By: #### 1 0269556 ####[address] [place] [address] Stone Photo Comment Invalid Interpretation Code [facility] Comment on above: Order Comment: Stone calculi from left ureter for analysis Result Comment: Phot ogph will follow under a separate cover Performed By: #### 1 1203937 ####[address] [address] Urate (Stone) [Mass fraction] 100 % Invalid Interpretation Code [facility] Comment on above: Order Comment: Stone calculi from left ureter for analysis Performed By: #### 1 4214004 ####[address] [address] Weight (Stone) 40 mg Invalid Interpretation Code [facility] Comment on above: Order Comment: Stone calculi from left ureter for analysis Performed By: #### 1 7843586 ####[address] [address] Main OR Intraoperative Recor don 05-12-2023 Main OR Intraoperative Record Normal [facility] Auto DiffOrdered By: SYSTEM SYSTEM on 05-11-2023 Basophils/100 WBC (Bld) 0.2 % Normal 0.0-2.0 [facility] Comment on above: Order Comment: Order Added by Discern Expert. Performed By: #### 2 046635, 2299790 ####[address] [address] Basophils/Leukocytes Auto (Bld) [Pure # fraction] 0.0 E9/L Normal 0.0-0.2 [facility] Comment on above: Order Comment: Order Added by Discern Expert. Performed By: #### 2 909018, 3002385 ####[address] [address] Eosinophils/100 WBC (Bld) 0.1 % Normal 0.0-8.0 [facility] Comment on above: Order Comment: Order Added by Discern Expert. Performed By: #### 2 428328, 4995042 ####[place] [address] [place] [address] Eosinophils/Leukocyt es Auto (Bld) [Pure # fraction] 0.0 E9/L Normal 0.0-0.5 [facility] Comment on above: Order Comment: Order Added by Discern Expert. Performed By: #### 2 630609, 5834569 ####[address] [address] Lymphocytes/100 WBC (Bld) 10.0 % Low 14.0-50.0 [facility] Comment on above: Order Comment: Order Added by Discern Expert. Performed By: #### 2 570215, 1023030 ####[address] [address] Lymphocytes/Leukocyt es Auto (Bld) [Pure # fraction] 1.0 E9/L Normal 1.0-4.0 [facility] Comment on above: Order Comment: Order Added by Discern Expert. Performed By: #### 2 892556, 2168911 ####[address] [address] Monocytes/100 WBC (Bld) 5.6 % Normal 4.0-14.0 [facility] Comment on above: Order Comment: Order Added by Discern Expert. Performed By: #### 2 279607, 7359454 ####[address] [address] Monocytes/Leukocytes Auto (Bld) [Pure # fraction] 0.6 E9/L Normal 0.2-1.0 [facility] Comment on above: Order Comment: Order Added by Discern Expert. Performed By: #### 2 792172, 7710764 ####[address] [address] Neutrophils/100 WBC (Bld) 84.1 % High 36.0-75.0 [facility] Comment on above: Order Comment: Order Added by Discern Expert. Performed By: #### 2 909766, 1273046 ####[address] [address] Neutrophils/Leukocyt es Auto (Bld) [Pure # fraction] 8.8 E9/L High 2.0-7.5 [facility] Comment on above: Order Comment: Order Added by Discern Expert. Performed By: #### 2 629841, 9471247 ####[address] [address] C Urineon 05-11-2023 Bacteria identified Cx Nom (U) Normal [facility] Comment on above: Performed By: #### 2 372681, 63353971 ####[address] [address] CBC w/ Auto DiffOrdered By: Virginia Dillard on 05-11-2023 Erythrocyte distribution width (RBC) [Ratio] 13.7 % Normal 10.9-14.2 [facility] [place] [facility] Comment on above: Performed By: #### 2 387905, 7673740 ####[address] [address] Hematocrit (Bld) [Volume fraction] 37.9 % Normal 34.0-46.0 [facility] [place] [facility] Comment on above: Performed By: #### 2 751082, 8468445 ####[address] [address] Hemoglobin (Bld) [Mass/Vol] 13.0 g/dL Normal 12.0-16.0 [facility] [place] [facility] Comment on above: Performed By: #### 2 497996, 4598640 ####[address] [address] MCH (RBC) [Entitic mass] 31.8 pg Normal 27.0-34.0 [facility] [place] [facility] Comment on above: Performed By: #### 2 412338, 1811134 ####[address] [address] MCHC (RBC) [Mass/Vol] 34.4 g/dL Normal 31.4-36.0 [facility] [place] [facility] Comment on above: Performed By: #### 2 639676, 6647170 ####[address] [address] MCV (RBC) [Entitic vol] 92.5 fL Normal 80.0-100.0 [facility] Comment on above: Performed By: #### 2 963779, 7596130 ####[place] [address] [address] Platelet mean volume (Bld) [Entitic vol] 8.2 fL Normal 6.4-10.8 [facility] Comment on above: Performed By: #### 2 071038, 1817972 ####[place] [address] [address] Platelets (Bld) [#/Vol] 161.0 E9/L Normal 150.0-500.0 [facility] Comment on above: Performed By: #### 2 687321, 3549359 ####[address] [address] RBC (Bld) [#/Vol] 4.1 E12/L Low 4.3-5.9 [facility] Comment on above: Performed By: #### 2 000532, 0721369 ####[place] [address] [address] WBC corrected for nucl RBC Auto (Bld) [#/Vol] 10.5 E9/L Normal 4.0-11.0 [facility] Comment on above: Performed By: #### 2 847580, 9236217 ####[address] [address] CHEMISTRYOrdered By: Andrea Richter on 05-11-2023 POC Device SN [id number] Invalid Interpretation Code [facility] [place] P[place] Subsection POC User ID [id number] Invalid Interpretation Code [facility] [place] P[place] Subsection POC Username CORNELIA ZAMBRANO Invalid Interpretation Code [facility] [place] P[place] Subsection Capillary Glucose POCOrdered By: Andrea Badillor on 05-11-2023 Glucose [Mass/Vol] 226 mg/dL High 55-99 [facility] [place] P OC Subsection Comment on above: Result Comment: [place] ANDRES Result Comment: [place] ANDRES Performed By: #### 2 [id number] ####[address] [address] Discharge Instructionson Discharge Instructions [id number]# 1.00CD:127 Normal [facility] Discharge Note-Nursingon Discharge Note-Nursing Normal [address], [address] [place] [address]- \.br\ New Follow Up Appointments after Discharge\.br\ Follow Up with Glynn DENT When: 05/17/2023 01:30 PM EDT\.br\ Where:\.br\ [facility]\.br\ [address]br\ [place] [address]-\.br\ Business (1)\.br\ Follow Up with ALBERTINA ARNDT When: 05/17/2023 09:30 AM EDT\.br\ Where:\.br\ [address] [facility]\.br\ [place] [address]-\.br\ Business (1)\.br\ Medications\.br\ What How Much When Why Instructions Next Dose\.br\ Changed cephalexin (Keflex 500 mg Cap) 1 Capsules By Mouth 3 times a day Duration: 5 Days Pickup at [id number] 05-11-23 3 pm\.br\ Unchanged atorvastatin (atorvastatin 40 mg Tab) 1 Tablets By Mouth Every day 05-12-23 9 am\.br\ Unchanged clopidogrel (Plavix 75 mg Tab) 1 Tablets By Mouth Wednesday & Wednesday05/13/23 9 am\.br\ Unchanged clopidogrel (Plavix 75 mg Tab) 1 Tablets By Mouth Every day 05-12-23 9 am\.br\ Unchanged estradiol topical (estradiol 0.1 mg/ g Vag Crm) See instructions Urinary tract infection Atrophy of vagina Apply pea-sized amount to urethra/ vaginal 3x/ week at night for 1 month, then 2x/ week thereafter \.br\ Unchanged insulin glargine (Basaglar KwikPen 100 units/ mL subcutaneous solution)\.br\ Unchanged lisinopril (lisinopril 5 mg Tab) 1 Tablets By Mouth 2 times a day 05-11-23 9 pm\.br\ Unchanged meclizine (meclizine 12.5 mg Tab) 1 Tablets By Mouth 3 times a day as needed for for dizziness\.br\ Unchanged metformin (metformin 500 mg Tab) By Mouth 2 times a day 05-11-23 9 pm\.br\ Unchanged metoprolol (Metoprolol tartrate 50 mg Tab) 1 Tablets By Mouth 2 times a day 05-11-23 9 pm\.br\ Unchanged mirabegron (Myrbetriq 25 mg oral tablet, extended release) 1 Tablets By Mouth Every day 05-12-23 9 am\.br\ Unchanged potassium bicarbonate (Klor-Con/ EF 25 mEq oral tablet, effervescent) 1 Tablets By Mouth Every day dissolve in 4 ounces of water 05-12-23 9 am\.br\ Unchanged potassium citrate (potassium citrate compounding powder) 30 Milliequivalent By Mouth 2 times a day Kidney stone Duration: 30 Days 30mEq potassium citrate powder orally BID, Dissolve in 8 oz water 05-11-23 9 pm\.br\ Unchanged solifenacin (Vesicare 10 mg Tab) 1 Tablets By Mouth Every day Pickup at [facility] 05-12-23 9 am\.br\ Pharmacy Information\.br\ [facility]: [address], [place] [id number] [phone]\.br\ [facility][id number]: [address], [place] [id number] [phone]\.br\ Test Results\.br\ CBC \.br\ BMP \.br\ WBC: 10.5 E9/L (05/11/23 06:13:00)\.br\ Glucose Lvl: 256 mg/dL High (05/10/23 08:20:00)\.br\ RBC: 4.1 E12/L Low (05/11/23 06:13:00)\.br\ BUN: 30 mg/dL High (05/10/23 08:20:00)\.br\ HGB: 13 gm/dL (05/11/23 06:13:00)\.br\ Creatinine: 1.4 mg/dL High (05/10/23 08:20:00)\.br\ Hct: 37.9 % (05/11/23 06:13:00)\.br\ BUN/Creat Ratio: 21 High (05/10/23 08:20:00)\.br\ MCV: 92.5 fL (05/11/23 06:13:00)\.br\ Sodium Lvl: 141 mmol/L (05/10/23 08:20:00)\.br\ MCH: 31.8 pg (05/11/23 06:13:00)\.br\ Potassium Lvl: 3.7 mmol/L (05/10/23 08:20:00)\.br\ MCHC: 34.4 gm/dL (05/11/23 06:13:00)\.br\ Chloride: 111 mmol/L (05/10/23 08:20:00)\.br\ RDW: 13.7 % (05/11/23 06:13:00)\.br\ CO2: 22 mmol/L (05/10/23 08:20:00)\.br\ Platelet: 161 E9/L (05/11/23 06:13:00)\.br\ AGAP: 12 mEq/L (05/10/23 08:20:00)\.br\ MPV: 8.2 fL (05/11/23 06:13:00)\.br\ Calcium Lvl: 8.3 mg/dL Low (05/10/23 08:20:00)\.br\ Allergies\.br\ aspirin (Eye swelling)\.br\ Problems\.br\ Ongoing - Any problem that you are currently receiving treatment for.\.br\ Coronary artery disease\.br\ Glucosuria\.br\ Hyperlipidemia\. br\ Kidney stone\.br\ care home current use of anticoagulant\.b r\ Obesity due to excess calories\.br\ Urge incontinence\.br \ Urinary tract infection\.br\ Historical - Any problem that you are no longer receiving treatment for.\.br\ Diabetes mellitus\.br\ Hypertension\.br \ Devices Implanted/Remove d This Visit\.br\ Notice: You have devices implanted this visit that may not be MRI compatible.\.br\ Implanted\.br\ CYSTOSCOPY W/ HOMIUM LASER\.br\ Ureter L\.br\ STENT URETERAL 6FR LENGTH 22-32CM [916710] 05/09/2023, Unknown - JOSE FRANCISCO: {01}[id number] 89{17}[id number]{10} [id number]\.br\ Common Emergency Awareness Tips\.br\ IS IT A STROKE?\.br\ Act FAST and Check for these signs:\.br\ FACE\.br\ Does the face look uneven?\.br\ ARM\.br\ Does one arm drift down?\.br\ SPEECH\.br\ Does their speech sound strange?\.br\ TIME\.br\ Call at any sign of stroke\.br\ Heart Attack Signs\.br\ Chest discomfort: Most heart attacks involve discomfort in the center of the chest and lasts more than a few minutes, or goes away and comes back. It can feel like uncomfortable pressure, squeezing, fullness or pain.\.br\ Discomfort in upper body: Symptoms can include pain or discomfort in one or both arms, back, neck, jaw or stomach.\.br\ Shortness of breath: With or without discomfort.\.br\ Other signs: Breaking out in a cold sweat, nausea, or lightheaded.\.br \ Remember, MINUTES DO MATTER. If you experience any of these heart attack warning signs, call to get immediate medical attention!\.br\ Patient Portal\.br\ You may access all of your results and other medical record information on our secure patient portal. If you are not signed up for this yet, please contact [employer] at [phone] to get signed up today.\.br\ \.br\ Patient Name: SHAHANA GRACE\.br\ I have received this information and my questions have been answered.\.br\ Patient/Itz joseph Name: ____\.br\ Patient/Itz joseph Signature: ____\.br\ Relationship to Patient: ____\.br\ Witness Name/Signature: ____\.br\ Date: ____\.br\ [facility] Inpatient Clinical Summaryon 05-11-2023 Inpatient Clinical Summary Normal [facility] Inpatient Patient Summaryon 05-11-2023 Inpatient Patient Summary Normal [facility] Message from Medicareon 04-30 Message from Medicare [id number]# 1.00CD:127 Normal [facility] Monitor Recordon 05-11-2023 Monitor Record [id number]# 1.00CD:127 Normal [facility] Monitor Record [id number]# 1.00CD:127 Normal [facility] Monitor Record [id number]# 1.00CD:127 Normal [facility] Auto DiffOrdered By: SYSTEM SYSTEM on 05-10-2023 Basophils/100 WBC (Bld) 0.1 % Normal 0.0-2.0 [facility] Comment on above: Order Comment: Order Added by Discern Expert. Performed By: #### 2 618281, 6529995, 3563953, 74274239 ####[facility] [address] [place] [address] Basophils/Leukocytes Auto (Bld) [Pure # fraction] 0.0 E9/L Normal 0.0-0.2 [facility] Comment on above: Order Comment: Order Added by Discern Expert. Performed By: #### 2 966790, 7075193, 1230776, 65451210 ####[place] [address] [address] Eosinophils/100 WBC (Bld) 0.0 % Normal 0.0-8.0 [facility] Comment on above: Order Comment: Order Added by Discern Expert. Performed By: #### 2 406684, 3322852, 5608124, 08307940 ####[address] [address] Eosinophils/Leukocyt es Auto (Bld) [Pure # fraction] 0.0 E9/L Normal 0.0-0.5 [facility] Comment on above: Order Comment: Order Added by Christen Expert. Performed By: #### 2 686053, 6399741, 9685363, 60943133 ####[place] [address] [address] Lymphocytes/100 WBC (Bld) 6.5 % Low 14.0-50.0 [facility] Comment on above: Order Comment: Order Added by Christen Expert. Performed By: #### 2 379664, 6759368, 8828994, 07448213 ####[address] [address] Lymphocytes/Leukocyt es Auto (Bld) [Pure # fraction] 1.1 E9/L Normal 1.0-4.0 [facility] Comment on above: Order Comment: Order Added by Christen Expert. Performed By: #### 2 026467, 9641933, 8494190, 58458761 ####[address] [address] Monocytes/100 WBC (Bld) 4.2 % Normal 4.0-14.0 [facility] Comment on above: Order Comment: Order Added by Christen Expert. Performed By: #### 2 361517, 2780513, 0973214, 55118510 ####[address] [place] [address] Monocytes/Leukocytes Auto (Bld) [Pure # fraction] 0.7 E9/L Normal 0.2-1.0 [facility] Comment on above: Order Comment: Order Added by Discern Expert. Performed By: #### 2 617406, 8523008, 3909393, 07040657 ####[address] [address] Neutrophils/100 WBC (Bld) 89.2 % High 36.0-75.0 [facility] Comment on above: Order Comment: Order Added by Discern Expert. Performed By: #### 2 042498, 2048740, 5146360, 84854668 ####[address] [address] Neutrophils/Leukocyt es Auto (Bld) [Pure # fraction] 14.7 E9/L High 2.0-7.5 [facility] Comment on above: Order Comment: Order Added by Discern Expert. Performed By: #### 2 177885, 9623775, 9059194, 79045188 ####[address] [place] [address] BMPon 05-10-2023 Anion gap [Moles/Vol] 12 mmol/L Normal 6-16 [facility] Comment on above: Performed By: #### 2 421399, 5334992, 5419935, 09306946 ####[address] [place] [address] Calcium [Mass/Vol] 8.3 mg/dL Low 8.9-11.1 [facility] Comment on above: Performed By: #### 2 547796, 1708169, 5261436, 64292719 ####[address] [place] [address] Chloride [Moles/Vol] 111 mmol/L Normal 101-111 [facility] Comment on above: Performed By: #### 2 669802, 4116938, 6160531, 97078236 ####[facility] [address] [place] [address] CO2 [Moles/Vol] 22 mmol/L Normal 21-31 [facility] Comment on above: Performed By: #### 2 651330, 8627676, 7171451, 15078195 ####[facility] [address] [place] [address] Creatinine [Mass/Vol] 1.4 mg/dL High 0.5-1.3 [facility] Comment on above: Performed By: #### 2 906440, 2631798, 6495922, 66475845 ####[facility] [address] [place] [address] Glucose [Mass/Vol] 256 mg/dL High 55-199 [facility] Comment on above: Result Comment: If t his glucose result represents a fasting glucose, interpretation should refer to the following reference range: 55-99 mg/dL Performed By: #### 2 762748, 9743198, 4866831, 25340100 ####[facility] [address] [place] [address] Potassium [Moles/Vol] 3.7 mmol/L Normal 3.5-5.3 [facility] Comment on above: Performed By: #### 2 573873, 6459820, 3041463, 98168435 ####[facility] [address] [place] [address] Sodium [Moles/Vol] 141 mmol/L Normal 135-145 [facility] Comment on above: Performed By: #### 2 346959, 5559667, 4699137, 83881383 ####[facility] [address] [place] [address] Urea nitrogen [Mass/Vol] 30 mg/dL High 5-21 [facility] Comment on above: Performed By: #### 2 070325, 3069771, 9872041, 98994967 ####[facility] [address] [place] [address] Urea nitrogen/Creatinine [Mass ratio] 21 No Units High 10-20 [facility] Comment on above: Performed By: #### 2 322053, 2685032, 5241631, 15077716 ####[address] [address] CBC w/ Auto DiffOrdered By: Virginia Dillard on 05-10-2023 Erythrocyte distribution width (RBC) [Ratio] 13.8 % Normal 10.9-14.2 [facility] Comment on above: Performed By: #### 2 602056, 8902718, 7067914, 70836539 ####[address] [address] Hematocrit (Bld) [Volume fraction] 41.7 % Normal 34.0-46.0 [facility] Comment on above: Performed By: #### 2 685069, 2150573, 6493089, 37436729 ####[address] [address] Hemoglobin (Bld) [Mass/Vol] 14.4 g/dL Normal 12.0-16.0 [facility] Comment on above: Performed By: #### 2 247262, 0183160, 3098355, 48800059 ####[address] [address] MCH (RBC) [Entitic mass] 31.1 pg Normal 27.0-34.0 [facility] Comment on above: Performed By: #### 2 114653, 8697884, 4070847, 48559489 ####[address] [address] MCHC (RBC) [Mass/Vol] 34.4 g/dL Normal 31.4-36.0 [facility] Comment on above: Performed By: #### 2 651874, 1462189, 7453797, 01671901 ####[address] [address] MCV (RBC) [Entitic vol] 90.2 fL Normal 80.0-100.0 [facility] Comment on above: Performed By: #### 2 647646, 9088279, 2566005, 77588512 ####[facility] [address] [place] [address] Platelet mean volume (Bld) [Entitic vol] 7.8 fL Normal 6.4-10.8 [facility] Comment on above: Performed By: #### 2 721735, 5637563, 9731667, 17753543 ####[facility] [address] [place] [address] Platelets (Bld) [#/Vol] 171.0 E9/L Normal 150.0-500.0 [facility] Comment on above: Performed By: #### 2 405672, 2288553, 7123931, 50008023 ####[place] [address] [address] RBC (Bld) [#/Vol] 4.6 E12/L Normal 4.3-5.9 [facility] Comment on above: Performed By: #### 2 058480, 3040264, 6062889, 61664277 ####[address] [address] WBC corrected for nucl RBC Auto (Bld) [#/Vol] 16.5 E9/L High 4.0-11.0 [facility] Comment on above: Result Comment: Slid e reviewed by TLP. Result Comment: Slid e reviewed by TLP. Performed By: #### 2 826125, 5656176, 0865222, 18152910 ####[facility] [address] [place] [address] CHEMISTRYOrdered By: SYSTEM SYSTEM on 05-10-2023 Anion gap [Moles/Vol] 12 mmol/L Normal 6 - 16 mEq/L [facility] Calcium [Mass/Vol] 8.3 mg/dL Low 8.9 - 11.1 mg/dL [facility] Chloride [Moles/Vol] 111 mmol/L Normal 101 - 111 mmol/ L [facility] CO2 [Moles/Vol] 22 mmol/L Normal 21 - 31 mmol/L [facility] Creatinine [Mass/Vol] 1.4 mg/dL High 0.5 - 1.3 mg/dL [facility] Remisol GFR/1.73 sq M.predicted among non-blacks MDRD (S/P/Bld) [Vol rate/Area] 40 mL/min/1.73 m2 Low >=59mL/min/1.73 m2 [facility] Chem S Glucose [Mass/Vol] 256 mg/dL High 55 - 199 mg/dL [facility] Remisol Potassium [Moles/Vol] 3.7 mmol/L Normal 3.5 - 5.3 mmol/L [facility] Remisol Sodium [Moles/Vol] 141 mmol/L Normal 135 - 145 mmol/L [facility] Remisol Urea nitrogen [Mass/Vol] 30 mg/dL High 5 - 21 mg/dL [facility] Remisol Urea nitrogen/Creatinine [Mass ratio] 21 mg/mg High 10 - 20 [facility] CHEMISTRYOrdered By: Lab ROP User on 05-10-2023 POC Device SN [id number] Invalid Interpretation Code [facility] POC Subsection POC Device SN [id number] Invalid Interpretation Code [facility] POC Subsection POC User ID [id number] Invalid Interpretation Code [facility] POC Subsection POC User ID [id number] Invalid Interpretation Code [facility] POC Subsection POC Username MAURICE POST Invalid Interpretation Code [facility] POC Subsection POC Username FREDDIE GUY Invalid Interpretation Code [facility] POC Subsection Capillary Glucose POCon 04-30 Glucose [Mass/Vol] 302 mg/dL High 55-99 [facility] Comment on above: Result Comment: [place] ANDRES Performed By: #### 2 [id number] ####[facility] [address] [place] [address] Glucose [Mass/Vol] 247 mg/dL High 55-99 [facility] Comment on above: Result Comment: [place] ANDRES Performed By: #### 2 06101398 ####[facility] [address] [place] [address] Glucose [Mass/Vol] 249 mg/dL High 55-99 [facility] Comment on above: Result Comment: [place] ANDRES Performed By: #### 2 57094358 ####[facility] [address] [place] [address] Glucose [Mass/Vol] 314 mg/dL High 55-99 [facility] Comment on above: Result Comment: Mod[place] vanegas RN/ Performed By: #### 2 35139246 ####[facility] [address] [place] [address] Capillary Glucose POCOrdered By: Andrea ROPUser on 05-10-2023 Glucose [Mass/Vol] 299 mg/dL High 55-99 [facility] P OC Subsection Comment on above: Result Comment: [place] vanegas RN/ Cleaned Meter Result Comment: [place] ZAMORAleaned Meter Performed By: #### 2 40648375 ####[facility] [address] [place] [address] Glucose [Mass/Vol] 336 mg/dL High 55-99 [facility] P OC Subsection Comment on above: Result Comment: [place] ANDRES Result Comment: [place] ANDRES Performed By: #### 2 88693765 ####[facility] [address] [place] [address] Consent for Anesthesiaon Consent for Anesthesia [id number]# 1.00CD:127 Normal [facility] Consent for Procedure/Surger yon 05-10-2023 Consent for Procedure/Surgery [id number]# 1.00CD:127 Normal [facility] [id number] 05-10-2023 HbA1c (Bld) [Mass fraction] 10.1 % High <=5.9 [facility] Comment on above: Performed By: #### 7 [id number] ####[address] [address] Insurance Correspondence Off iceon 05-10-2023 Insurance Correspondence Office [id number]#1 .00CD:127 Normal [facility] Interdisciplinary Note - Galo e Manageron 05-10-2023 Interdisciplinary Note - 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 Patient was Ind w/ basic adls/transfers in her room. Dc inpatient OT services. Normal [facility] IntraOperative Documentson 0 05-10-2023 IntraOperative Documents [id number]# 1.00CD:127 [facility] Monitor Recordon 05-10-2023 Monitor Record [id number]# 1.00CD:127 [facility] Monitor Record [id number]# 1.00CD:127 [facility] Progress Note-Physicianon Progress Note-Physician [facility] Comment on above: Result Comment: Elec tronically Signed By: ROSEMARY CHISHOLM, Ck\.br\Date and Time Signed: 05/10/23 11:23 EDT XR Abdomen 1 Viewon 05-10-20 23 XR Abdomen 1 View [facility] eGFRon 05-10-2023 GFR/1.73 sq M.predicted among non-blacks MDRD (S/P/Bld) [Vol rate/Area] 40 mL/min/1.73 m2 Low >=59 [facility] Comment on above: Order Comment: Order added by Discern Expert. Result Comment: Seal Mixer maxi kidney disease could be indicated at eGFR's of less than 60 mL/min/1.73m2. Kidney failure is indicated at less than 15 mL/min/1.73m2. Performed By: #### 2 458692, 9249852, 2120807, 74550859 ####[address] [place] [address] Auto DiffOrdered By: SYSTEM SYSTEM on 05-09-2023 Basophils/100 WBC (Bld) 0.5 % Normal 0.0-2.0 [facility] Comment on above: Order Comment: Order Added by Discern Expert. Performed By: #### 1 8159956, 5864968, 17727951, 9395159, 3884544, 7145423, 3099013, 4042098, 67735846 ####[place] [address] [address] Basophils/Leukocytes Auto (Bld) [Pure # fraction] 0.1 E9/L Normal 0.0-0.2 [facility] Comment on above: Order Comment: Order Added by Discern Expert. Performed By: #### 1 5369924, 2821792, 02395734, 7499338, 9776542, 4186235, 8054899, 1052514, 28498726 ####[address] [address] Eosinophils/100 WBC (Bld) 0.2 % Normal 0.0-8.0 [facility] Comment on above: Order Comment: Order Added by Christen Expert. Performed By: #### 1 7209730, 4233239, 70186255, 3808835, 7991530, 8264943, 9157414, 3653588, 21924155 ####[address] [address] Eosinophils/Leukocyt es Auto (Bld) [Pure # fraction] 0.0 E9/L Normal 0.0-0.5 [facility] Comment on above: Order Comment: Order Added by Discern Expert. Performed By: #### 1 5155103, 1373351, 07336991, 0425060, 4672107, 3895967, 0076385, 0650981, 99015335 ####[address] [address] Lymphocytes/100 WBC (Bld) 6.1 % Low 14.0-50.0 [facility] Comment on above: Order Comment: Order Added by Christen Expert. Performed By: #### 1 5678485, 6174384, 76782973, 5935396, 2635584, 8472454, 3441661, 4344056, 42757598 ####[place] [address] [address] Lymphocytes/Leukocyt es Auto (Bld) [Pure # fraction] 1.0 E9/L Normal 1.0-4.0 [facility] Comment on above: Order Comment: Order Added by Discern Expert. Performed By: #### 1 9923281, 1265663, 10890238, 6010323, 1106112, 8328408, 4153458, 5336422, 60299296 ####[facility] [address] [address] Monocytes/100 WBC (Bld) 7.4 % Normal 4.0-14.0 [facility] Comment on above: Order Comment: Order Added by Discern Expert. Performed By: #### 1 7147236, 2876933, 10267632, 8935782, 2353269, 2378608, 7364781, 7278956, 54844285 ####[place] [address] [address] Monocytes/Leukocytes Auto (Bld) [Pure # fraction] 1.2 E9/L High 0.2-1.0 [facility] Comment on above: Order Comment: Order Added by Discern Expert. Performed By: #### 1 3832903, 6608964, 39971255, 0752070, 0523121, 6218762, 0846135, 6219804, 18875467 ####[address] [address] Neutrophils/100 WBC (Bld) 85.8 % High 36.0-75.0 [facility] Comment on above: Order Comment: Order Added by Discern Expert. Performed By: #### 1 8265896, 1880225, 30666043, 1779173, 2009982, 1858496, 3920758, 9837946, 15364844 ####[place] [address] [address] Neutrophils/Leukocyt es Auto (Bld) [Pure # fraction] 13.6 E9/L High 2.0-7.5 [facility] Comment on above: Order Comment: Order Added by Discern Expert. Performed By: #### 1 9635068, 7708898, 93151620, 6833855, 5922429, 8492088, 5013125, 5766166, 90064625 ####[facility] [address] [place] [address] BMPOrdered By: SYSTEM SYSTEM on 05-09-2023 Anion gap [Moles/Vol] 10 mmol/L Normal 6-16 [facility] Comment on above: Performed By: #### 1 1093356, 2998074, 67020077, 7237492, 2438140, 5282551, 1836266, 6965827, 08734486 ####[place] [address] [place] [address] Calcium [Mass/Vol] 9.0 mg/dL Normal 8.9-11.1 [facility] em[facility] Comment on above: Performed By: #### 1 3994582, 2209347, 57979228, 8851126, 0981627, 2873360, 4844158, 0860044, 33494208 ####[place] [address] [place] [address] Chloride [Moles/Vol] 111 mmol/L Normal 101-111 [facility] Comment on above: Performed By: #### 1 1454850, 2431082, 00563385, 9709058, 2368189, 2345191, 3786446, 5748925, 51311093 ####[facility] [address] [place] [address] CO2 [Moles/Vol] 24 mmol/L Normal 21-31 [facility] Comment on above: Performed By: #### 1 3415927, 3099191, 95190309, 7041895, 9934972, 3512108, 7185646, 9195537, 40432047 ####[address] [place] [address] Creatinine [Mass/Vol] 1.6 mg/dL High 0.5-1.3 [facility] Comment on above: Performed By: #### 1 1619929, 8894934, 84070839, 1439826, 9372383, 8127876, 0284366, 0285584, 07810028 ####[facility] [address] [place] [address] Glucose [Mass/Vol] 419 mg/dL High 55-199 [facility] R emisol Comment on above: Result Comment: If t his glucose result represents a fasting glucose, interpretation should refer to the following reference range: 55-99 mg/dL Performed By: #### 1 5594337, 0467465, 26588373, 8512210, 5319400, 1430326, 7326348, 1085367, 17918134 ####[facility] [address] [place] [address] Potassium [Moles/Vol] 4.0 mmol/L Normal 3.5-5.3 [facility] Comment on above: Performed By: #### 1 0634810, 5418472, 70564622, 9495148, 4753480, 2834182, 4160149, 0641826, 27395037 ####[facility] [address] [place] [address] Sodium [Moles/Vol] 141 mmol/L Normal 135-145 [facility] R emisol Comment on above: Performed By: #### 1 1918858, 2088735, 10618695, 3516298, 8555050, 8498451, 0802972, 8508437, 39827147 ####[facility] [address] [place] [address] Urea nitrogen [Mass/Vol] 23 mg/dL High 5-21 [facility] Comment on above: Performed By: #### 1 0354598, 4035325, 21400162, 0091849, 7557821, 2575035, 2153361, 7529227, 49303918 ####[facility] [address] [place] [address] BMPon 05-09-2023 Urea nitrogen/Creatinine [Mass ratio] 14 No Units Normal 10-20 [facility] Comment on above: Performed By: #### 1 8831965, 2836337, 98495231, 1869128, 8518450, 3977748, 1917417, 5385276, 79603617 ####[facility] [address] [place] [address] CBC w/ Auto DiffOrdered By: Rayne Barnhart on 05-09-2023 Erythrocyte distribution width (RBC) [Ratio] 13.8 % Normal 10.9-14.2 [facility] Comment on above: Performed By: #### 1 4324461, 5025257, 71538535, 7588429, 7257582, 0941456, 4367738, 1197111, 20410876 ####[address] [place] [address] Hematocrit (Bld) [Volume fraction] 46.4 % High 34.0-46.0 [facility] Comment on above: Performed By: #### 1 8062182, 1429141, 81790012, 4934036, 3061643, 7571166, 2864164, 0826038, 18207006 ####[address] [place] [address] Hemoglobin (Bld) [Mass/Vol] 16.0 g/dL Normal 12.0-16.0 [facility] Comment on above: Performed By: #### 1 7061749, 1878123, 55082653, 2788190, 2160981, 6909101, 8174532, 8118467, 07212457 ####[address] [place] [address] MCH (RBC) [Entitic mass] 31.1 pg Normal 27.0-34.0 [facility] Comment on above: Performed By: #### 1 8338804, 8810059, 96107937, 9649154, 2297950, 2378090, 6869286, 4748379, 01060362 ####[address] [address] MCHC (RBC) [Mass/Vol] 34.4 g/dL Normal 31.4-36.0 [facility] Comment on above: Performed By: #### 1 8916817, 3899894, 29465734, 0331784, 7151543, 2310888, 2447332, 4381226, 81611957 ####[facility] [address] [place] [address] MCV (RBC) [Entitic vol] 90.4 fL Normal 80.0-100.0 [facility] Comment on above: Performed By: #### 1 1041178, 3489329, 92712013, 7492668, 2109707, 2031457, 0723514, 2984801, 29524925 ####[place] [address] Platelet mean volume (Bld) [Entitic vol] 7.6 fL Normal 6.4-10.8 [facility] Comment on above: Performed By: #### 1 1972068, 2197117, 34653975, 5221384, 2763346, 3391956, 5261494, 2261431, 87865706 ####[place] [address] [address] Platelets (Bld) [#/Vol] 181.0 E9/L Normal 150.0-500.0 [facility] Comment on above: Performed By: #### 1 3014624, 3247286, 54832828, 8761510, 4013372, 3390892, 0711350, 7475578, 58276947 ####[place] [address] [address] RBC (Bld) [#/Vol] 5.1 E12/L Normal 4.3-5.9 [facility] Comment on above: Performed By: #### 1 6730007, 7838600, 80710258, 9812994, 7313188, 1333475, 9824492, 1011863, 89079272 ####[place] [address] [address] WBC corrected for nucl RBC Auto (Bld) [#/Vol] 15.9 E9/L High 4.0-11.0 [facility] Comment on above: Performed By: #### 1 2373451, 9286483, 95925450, 9317229, 9807496, 4618761, 7346482, 5629835, 89523745 ####[facility] [address] [place] [address] CHEMISTRYOrdered By: SYSTEM SYSTEM on 05-09-2023 Albumin/Globulin [Mass ratio] 1.0 {ratio} Low 1.1 - 2.2 [facility] ALP [Catalytic activity/Vol] 68 [iU]/d Normal 21 - 98 Int._Unit/L [facility] ALT No additional P-5'-P [Catalytic activity/Vol] 18 [iU]/d Normal 6 - 46 Int._Unit/L [facility] AST [Catalytic activity/Vol] 18 [iU]/d Normal 5 - 43 Int._Unit/L [facility] Urea nitrogen/Creatinine [Mass ratio] 14 mg/mg Normal 10 - 20 [facility] CHEMISTRYOrdered By: Nayely Dawkins on 05-09-2023 HbA1c (Bld) [Mass fraction] 10.1 % High <=5.9% [facility] COAGULATIONOrdered By: Claudio Jones on 05-09-2023 aPTT Coag (PPP) [Time] 23.7 s Low 25.1 - 36.5 second(s) [facility] Auto Coag PT Coag (PPP) [Time] 10.0 s Normal 9.4 - 1 2.5 second(s) FT Auto Coag CT Abdomen/Pelvis w/o Contra ston 05-09-2023 CT Abdomen/Pelvis w/o Contrast Normal [facility] Capillary Glucose POCon 04-30 Glucose [Mass/Vol] 434 mg/dL High 55-99 [facility] Comment on above: Result Comment: [place] vanegas RN/ Performed By: #### 2 48618259 ####[facility] [address] [place] [address] Glucose [Mass/Vol] 495 mg/dL Abnormal 55-99 [facility] Comment on above: Result Comment: [place] ANDRES Performed By: #### 2 77035921 ####[facility] [address] [place] [address] Glucose Cap >500 Abnormal 55-99 [facility] Comment on above: Result Comment: [place] ANDRES Performed By: #### 2 82350431 ####[facility] [address] [place] [address] Consent for Treatmenton 04-30 Consent for Treatment [id number]#1 .00CD:127 Normal [facility] Consultation Noteon 05-09-20 Consultation Note Normal [facility] Comment on above: Result Comment: Elec tronically Signed By: JAILENE CHISHOLM, Glynn Mcdermott\.br\Date and Time Signed: 05/09/23 14:07 EDT ED Clinical Summaryon 2022 ED Clinical Summary Normal [facility] ED Note-Physicianon 05-09-20 ED Note-Physician Normal [facility] Comment on above: Result Comment: Elec tronically Signed By: Lazara Larios PA-C\.br\Date and Time Signed: 05/09/23 12:01 EDT\.br\Electronically Co-Signed By: Noe Azar DO\.br\Date and Time Co-Signed: 05/09/23 16:06 EDT ED Patient Education Noteon 05-09-2023 ED Patient Education Note Normal [facility] ED Patient Summaryon 023 ED Patient Summary Normal [facility] GlucoseOrdered By: SYSTEM Makoondi STEM on 05-09-2023 Glucose [Mass/Vol] 460 mg/dL Abnormal 55-199 [facility] emisol Comment on above: Result Comment: Crit ical Result verified by repeat analysis\Critical Result [id number] Called to [facility] by SHELLY FERNANDO And Read Back For Confirmation at: 05/09/2023 22:21:19 Order Comment: Finge rstick blood sugar is >450. Blood sugar blood draw ordered per protocol. Result Comment: Crit ical Result verified by repeat analysis\Critical Result [id number] Called to [facility] by SHELLY FERNANDO And Read Back For Confirmation at: 05/09/2023 22:21:19 Performed By: #### 2 341213 ####[facility] [address] [place] [address] Hep Func PanelOrdered By: [employer] SYSTEM on 05-09-2023 Albumin [Mass/Vol] 3.5 g/dL Normal 3.3-5.0 [facility] R em[facility] Comment on above: Performed By: #### 1 1427268, 6570358, 40335851, 1618804, 2491416, 5642587, 4488899, 5363841, 83585160 ####[place] [address] [address] Bilirubin [Mass/Vol] 0.9 mg/dL Normal 0.0-1.1 [facility] Comment on above: Performed By: #### 1 6758600, 5447474, 12123610, 9573479, 2116207, 0968152, 7155811, 5304427, 74346790 ####[place] [address] [id number] Bilirubin.direct [Mass/Vol] 0.2 mg/dL Normal 0.1-0.4 [facility] Comment on above: Performed By: #### 1 [id number], 4181077, 67110525, 0640886, 2781359, 8167807, 5691612, 5619499, 55995023 ####[address] [place] [address] Bilirubin.indirect [Mass or moles/Vol] 0.7 mg/dL Normal 0.1-0.9 [facility] Comment on above: Performed By: #### 1 1567690, 4673106, 80010096, 8152368, 8400230, 1536028, 1443954, 0367914, 43345688 ####[address] [place] [address] Globulin (S) [Mass/Vol] 3.5 g/dL Normal 1.4-4.0 [facility] Comment on above: Performed By: #### 1 7779288, 8834811, 88662611, 1409580, 3114437, 2746514, 5968977, 4477836, 58874823 ####[facility] [address] [place] [address] Protein [Mass/Vol] 7.0 g/dL Normal 6.0-7.8 [facility] emisol Comment on above: Performed By: #### 1 1357665, 1902242, 93331996, 2145656, 4439455, 0668173, 4018547, 3434425, 71510061 ####[address] [address] Hep Func Panelon 05-09-2023 Albumin/Globulin (S) [Mass conc ratio] 1.0 Low 1.1-2.2 [facility] Comment on above: Performed By: #### 1 6289649, 6723610, 68907420, 9391906, 0216892, 4634345, 5456753, 5206878, 15188329 ####[address] [address] ALP [Catalytic activity/Vol] 68 Int._Unit/L Normal 21-98 [facility] Comment on above: Performed By: #### 1 4228474, 3905023, 32894187, 8746393, 5788301, 8442687, 6997249, 7069740, 94164460 ####[address] [place] [address] ALT No additional P-5'-P [Catalytic activity/Vol] 18 Int._Unit/L Normal 6-46 [facility] Comment on above: Performed By: #### 1 1356531, 0245617, 96042128, 6070451, 7316024, 4855342, 0756862, 9829319, 02214845 ####[address] [place] [address] AST [Catalytic activity/Vol] 18 Int._Unit/L Normal 5-43 [facility] Comment on above: Performed By: #### 1 7808493, 9048767, 87951575, 3378574, 5058741, 3444305, 5831960, 3889322, 95592835 ####[facility] [address] [place] [address] Laboratory - Microbiology an d Antimicrobial susceptibilityOrdered By: Nata Prieto on 05-09-2023 Bacteria identified Cx Nom (U) <10,000 cfu/ml Mixed skin contaminants [facility] Lactic AcidOrdered By: Dymant SYSTEM on 05-09-2023 Lactate [Mass/Vol] 1.8 mmol/L Normal 0.5-2.2 [facility] emisol Comment on above: Performed By: #### 1 0981661, 6800670, 08572786, 8237871, 8856178, 4192411, 1336217, 6568969, 48922327 ####[facility] [address] [place] [address] Lipase LevelOrdered By: Druidly SYSTEM on 05-09-2023 Lipase [Catalytic activity/Vol] 70 U/L High 13-58 [facility] Comment on above: Performed By: #### 1 6235696, 6129658, 02823833, 4377074, 0589961, 2694878, 1119828, 1466852, 87299101 ####[facility] [address] [place] [address] Main OR PACU I Recordon 04-30 Main OR PACU I Record Normal [facility] Main OR Preoperative Recordo n 05-09-2023 Main OR Preoperative Record Normal [facility] Monitor Recordon 05-09-2023 Monitor Record [id number]# 1.00CD:127 Normal [facility] Monitor Record [id number]# 1.00CD:127 Normal [facility] Operative Reporton Operative Report Normal [facility] Comment on above: Result Comment: Elec tronically Signed By: JAILENE CHISHOLM, Glynn Neff.hector\Date and Time Signed: 05/09/23 14:13 EDT PT & PTTon 05-09-2023 aPTT Coag (PPP) [Time] 23.7 second(s) Low 25.1-36.5 [facility] Comment on above: Result Comment: Para meter 15 days - 4 weeks 1 - 5 months 6 - 11 months 1 - 5 years 6 - 10 years 11 - 17 years PTT Mean: 35.4 (27.6-45.6) Mean: 33.5 (24.8-40.7) Mean: 32.4 (25.1-40.7) Mean: 31.6 (24.0-39.2) Mean: 31.6 (26.9-38.7) Mean: 31.0 (24.6-38.4) Pediatric Reference ranges were obtained from a study by leila Pino al. prepared from 1437 samples obtained at 7 different centers using the same coagulation reagent and instrumentation as [facility]. Currently there are no coagulation studies available worldwide for children to 14 days, and no normal ranges. Heparin therapeutic range (represented by Anti-Factor Xa activity of 0.2 - 0.4 U/mL) corresponds to PTT of 56.6 - 109.0 sec. Performed By: #### 1 4069992, 9516790, 59094387, 3185911, 3310741, 9910193, 3008935, 7811091, 50471133 ####[facility] [address] [place] [address] PT Coag (PPP) [Time] 10.0 second(s) Normal 9.4-12.5 [facility] Comment on above: Result Comment: 15 d ays - 4 weeks 1 - 5 months 6 -11 months 1- 5 years 6-10 years 11 -17 years Mean: 11.2 (9.5-12.6) Mean: 11.0 (9.7-12.8) Mean: 11.0 (9.8-13.0) Mean: 11.3 (9.9-13.4) Mean: 11.7 (10.0-14.6) Mean: 11.8 (10.0 - 14.1) Pediatric Reference ranges were obtained from a study by Chris Hollins et al. prepared from 1437 samples obtained at 7 different centers using the same coagulation reagent and instrumentation as [facility]. Currently there are no coagulation studies available worldwide for children to 14 days, and no normal ranges. Performed By: #### 1 8459382, 5253495, 99109746, 1282598, 4419996, 3477116, 9949459, 6742145, 83186794 ####[facility] [address] [place] [address] PT & PTTOrdered By: Yohana Jones on 05-09-2023 INR Coag (PPP) [Relative time] 0.9 {INR} Invalid Interpretation Code [facility] Auto Coag Comment on above: Result Comment: INR results are specifically intended to assess patients stabilized on long-term Anticoagulation therapy suggested INR?s ?Less Intensive Anticoagulation? 2.0 ? 3.0Conventional Range 3.0 ? 4.5 Performed By: #### 1 6884339, 3993341, 91031280, 4575490, 7663388, 6889325, 3754169, 4768834, 49987852 ####[facility] [address] [place] [address] Progress Note-Physicianon Progress Note-Physician Normal [facility] Comment on above: Result Comment: Elec tronically Signed By: Gino Yates Jr., DO\.br\Date and Time Signed: 05/09/23 13:29 EDT Progress Note-Physician Normal [facility] Comment on above: Result Comment: Elec tronically Signed By: Gino Yates Jr., DO\.br\Date and Time Signed: 05/09/23 15:16 EDT Troponin 0 Hr.Ordered By: [employer] SYSTEM on 05-09-2023 Troponin I.cardiac [Mass/Vol] 15.10 pg/mL Normal 10.10-27.10 [facility] Comment on above: Result Comment: The 95% CI (Confidence Interval) PPV (Positive Predictive Value) for myocardial infarction in females is 38 pg/mL, in males 51 pg/mL. The results should be used in conjunction with clinical conditions of myocardial infarction.(Access High Sensitivity Troponin I Instructions For Use, Jairo Elsy, March 2018) Performed By: #### 1 5404501, 3987428, 80700268, 3934461, 6095321, 3560796, 6579301, 9133218, 71843351 ####[facility] [address] [place] [address] UA With Cult Reflexon 2022 Bacteria LM Ql (Urine sed) 1+ /HPF Abnormal Trace [facility] Comment on above: Performed By: #### 2 232514, 79817487 ####[facility] [address] [place] [address] Bilirubin Ql (U) Negative Normal Negative [facility] Comment on above: Performed By: #### 2 393083, 40707475 ####[facility] [address] [place] [address] Clarity (U) SL CLOUDY Abnormal Clear [facility] Comment on above: Performed By: #### 2 624019, 63929296 ####[facility] [address] [place] [address] Color (U) STRAW Abnormal Yellow [facility] Comment on above: Performed By: #### 2 060979, 08771200 ####[facility] [address] [place] [address] Epithelial cells.squamous LM.HPF (Urine sed) [#/Area] 0-2 Normal 0-2 [facility] Comment on above: Performed By: #### 2 459297, 04201995 ####[facility] [address] [place] [address] Glucose Test strip (U) [Mass/Vol] 3+ Abnormal Negative [facility] Comment on above: Performed By: #### 2 058631, 31689728 ####[facility] [address] [place] [address] Hemoglobin Ql (U) 1+ Abnormal Negative [facility] Comment on above: Performed By: #### 2 541412, 83453946 ####[facility] [address] [place] [address] Ketones (U) [Mass/Vol] Negative Normal Negative [facility] Comment on above: Performed By: #### 2 919154, 79779677 ####[address] [address] Kenvir.plasma/Lithi um.RBC (Bld) [Mass ratio] 0-3 Normal 0-3 [facility] Comment on above: Performed By: #### 2 706168, 40760666 ####[address] [address] Nitrite Ql (U) Negative Normal Negative [facility] Comment on above: Performed By: #### 2 443703, 57894443 ####[address] [address] pH (U) 5.5 [pH] Invalid Interpretation Code 5.0-9.0 [facility] Comment on above: Performed By: #### 2 080986, 73309761 ####[address] [address] Protein (U) [Mass/Vol] TRACE Abnormal Negative [facility] Comment on above: Performed By: #### 2 785449, 87797016 ####[address] [address] Specific gravity (U) [Rel density] 1.015 Invalid Interpretation Code 1.005-1.030 [facility] Comment on above: Performed By: #### 2 086660, 52012109 ####[address] [address] Type of Urine collection method Clean Catch Normal [facility] Comment on above: Performed By: #### 2 878726, 23601843 ####[address] [address] Urobilinogen Qn (U) 0.2 {Isis'U}/dL Normal 0.0-1.0 [facility] Comment on above: Performed By: #### 2 448248, 54351941 ####[facility] [address] [place] [address] WBC Auto Ql (U) 1+ Abnormal Negative [facility] Comment on above: Performed By: #### 2 757910, 29281528 ####[facility] [address] [place] [address] UA With Cult ReflexOrdered B y: Yohana Jones on 05-09-2023 WBC LM.HPF (Urine sed) [#/Area] /[HPF] Abnormal 0-5 [facility]A Auto SS Comment on above: Performed By: #### 2 219174, 75355300 ####[place] [facility] [address] [place] [address] URINALYSISOrdered By: Alecia Jones on 05-09-2023 Bacteria LM Ql (Urine sed) 1+ /HPF Invalid Interpretation Code Trace/HPF [facility] UA Auto SS Bilirubin Ql (U) Negative (05/09/23 11:07 AM) Normal Negative [facility] UA Auto SS Clarity (U) Slightly Cloudy *ABN* (05/09/23 11:07 AM) Invalid Interpretation Code Clear [facility] UA Auto SS Color (U) Straw *ABN* (05/09/23 11:07 AM) Invalid Interpretation Code Yellow [facility] UA Auto SS Epithelial cells.squamous LM.HPF (Urine sed) [#/Area] 0-2 /HPF Normal 0-2/HPF [facility] UA Auto SS Glucose Test strip (U) [Mass/Vol] 3+ *ABN* (05/09/23 11:07 AM) Invalid Interpretation Code Negative [facility] UA Auto SS Hemoglobin Ql (U) 1+ *ABN* (05/09/23 11:07 AM) Invalid Interpretation Code Negative [facility] UA Auto SS Ketones (U) [Mass/Vol] Negative (05/09/23 11:07 AM) Normal Negative [facility] UA Auto SS Kenvir.plasma/Lithi um.RBC (Bld) [Mass ratio] 0-3 /HPF Normal 0-3/HPF [facility] UA Auto SS Nitrite Ql (U) Negative (05/09/23 11:07 AM) Normal Negative [facility] UA Auto SS pH (U) 5.5 *NA* (05/09/23 11:07 AM) Invalid Interpretation Code 5.0 - 9.0 FT UA Auto SS Protein (U) [Mass/Vol] Trace *ABN* (05/09/23 11:07 AM) Invalid Interpretation Code Negative [facility] UA Auto SS Specific gravity (U) [Rel density] 1.015 *NA* (05/09/23 11:07 AM) Invalid Interpretation Code 1.005 - 1.030 [facility] UA Auto SS UA Spec Desc Clean Catch (05/09/23 11:07 AM) Normal [facility] UA Auto SS Urobilinogen Qn (U) 0.9934681 {Isis'U}/dL Normal 0.0 - 1.0 EU/dL [facility] UA Auto SS WBC Auto Ql (U) 1+ *ABN* (05/09/23 11:07 AM) Invalid Interpretation Code Negative [facility] UA Auto SS eGFROrdered By: Xueersi on 05-09-2023 GFR/1.73 sq M.predicted among non-blacks MDRD (S/P/Bld) [Vol rate/Area] 34 mL/min/1.73 m2 Low >=59 [facility] S Comment on above: Order Comment: Order added by Discern Expert. Result Comment: Seal Mixer maxi kidney disease could be indicated at eGFR's of less than 60 mL/min/1.73m2. Kidney failure is indicated at less than 15 mL/min/1.73m2. Performed By: #### 1 5342192, 8840180, 50046147, 9673902, 9809497, 8350996, 2790919, 7403672, 14657910 ####[facility] [address] [place] [address] [facility] 03-29-2023 [facility] HNO ID: [id number] Author: Coordinator, Mammography Service: ? Author Type: Physician Type: Letter Filed: 03/30/2023 11:31 PM Note Text: March 30, 2023 PID: [id number] Shahana Grace [address] [place] [address] Dear Ms. Grace, We are pleased to inform you that the results of your recent breast imaging exam on 03/26/2023 are normal. Early detection of cancer is very important. We also understand recommendations regarding breast cancer screening are controversial. Please discuss with your primary care provider which strategy is best for you and whether a mammogram is right for you. Your imaging studies and report will be kept on file at [facility] as part of your permanent medical record and are available for your continuing care. Thank you for allowing us to help in meeting your health care needs. Sincerely, Dr. Costa Interpreting Radiologist [facility] (Normal over 40) Normal [facility] SCREENINGon 03-26-2023 [facility] SCREENING * * *Final Report* * * DATE OF EXAM: Mar 26 2023 2:03PM [facility] 0581 - [facility] SCREENING / PROCEDURE REASON: Z12 * * * * Physician Interpretation * * * * RESULT: #[id number] - [facility] SCREENING BILATERAL DIGITAL SCREENING MAMMOGRAM WITH CAD: 03/26/2023 HISTORY: Z08.29 / Screening Mammogram-Patient reports NO symptoms. RESULT: TECHNIQUE: The study was acquired using full field digital technology and interpreted from soft copy. Current study was also evaluated with a Computer Aided Detection (CAD). Comparison is made to exams dated: 07/13/2018 mammogram - [facility] [place], 11/10/2019 mammogram - [facility], 11/11/2020 mammogram - [facility], and 01/28/2022 mammogram - [facility]. There are scattered fibroglandular elements in both breasts. There is a biopsy clip in the right breast. No significant masses, calcifications, or other findings are seen in either breast. There has been no significant interval change. IMPRESSION: NEGATIVE There is no mammographic evidence of malignancy. A 1 year screening mammogram is recommended. Sharona arechiga/vincent:03/29/2023 08:29:23 Tire Sorter(s): Izabela Cardona [facility] letter sent: Normal over 40 Mammogram BI-RADS: 1 Negative Multiple national specialty organizations have released breast cancer screening guidelines for women at average risk for developing breast cancer - guidelines that are based on both evidence and opinion, yet differ on when to start and how often to screen for breast cancer. With representation from Breast Imaging, Internal Medicine, Women's Health, Family Medicine, and Medical/Surgical Oncology, the [facility] has carefully reviewed the data and reached the following consensus: 1) All women should engage in shared decision-making with their providers to decide when to start and how often to screen; 2) All women should have the opportunity to start screening mammography at age 40; 3) For women ages 45-55, we recommend annual screening mammograms; 4) For women ages 55 and over, we support both the transition from an annual to a biennial interval if this aligns more with patient's values and preferences, or continuation with annual screening; 5) All women should discuss with their providers when to stop screening mammograms. Composing Room Machinist: Vincent Transcribe Date/Time: Mar 26 2023 1:20P Dictated by : SHARONA COSTA MD This examination was interpreted and the report reviewed and electronically signed by: SHARONA COSTA MD on Mar 29 2023 8:29AM EST [id number] Normal [facility] Urine 10 SGon 11-24-2022 Albumin DL <= 20 mg/L (U) [Mass/Vol] Negative [employer] Other Albumin DL <= 20 mg/L (U) [Mass/Vol] Moderate [employer] Other pH (U) 5.0 [pH] [employer] Other Urine 10 SG Negative [employer] Other Urine 10 SG 1.005 [employer] Other Urine 10 SG trace [employer] Other Urine 10 SG 0.2 [employer] Other Urine Cultureon 11-24-2022 Bacteria identified Cx Nom (U) Reason for Exam Urinary tract infection, site not specified;Hematuria, unspe Urine Reason for Exam: Urinary tract infection, site not specified;Hematuria, unspe : Urine ORGANISM: Enterococcus faecalis (O:ENTFAC) [place] Count 75,000 Aerobic LAUREN Charge (PCMIC38) ---- SUSCEPTIBILITY --- ORGANISM: O:ENTFAC ANTIBIOTIC INTERPRETATION LAUREN Ampicillin S <2 Ciprofloxacin S <1 Daptomycin S 1 Levofloxacin S <1 Linezolid S 2 Nitrofurantoin S <32 Penicillin S 2 Tetracycline R >8 Vancomycin S 1 S = SUSCEPTIBLE I = INTERMEDIATE R = RESISTANT BLANK = DATA NOT AVAILABLE, OR DRUG NOT ADVISABLE OR TESTED R* = RESISTANCE DUE TO EXTENDED SPECTRUM BETA-LACTAMASES ESBL = EXTENDED SPECTRUM BETA-LACTAMASE TFG = THYMIDINE-DEPENDENT STRAIN MINGO = BETA-LACTAMASE POSITIVE IB = INDUCIBLE BETA-LACTAMASE. APPEARS IN PLACE OF 'S' WITH SPECIES KNOWN TO POSSESS INDUCIBLE BETA-LACTAMASES. POTENTIALLY THEY MAY BECOME RESISTANT TO ALL B-LACTAM DRUGS. PERFORMED BY: [place] [address] PATHOLOGIST GAME DEVELOPER KEVIN SWARTZ M.D. Normal [facility] Comment on above: Performed By: #### C UU #### [address] CHEMISTRYOrdered By: SYSTEM SYSTEM on 11-14-2022 Albumin [Mass/Vol] 4.0 g/dL Normal 3.3 - 5.0 gm/dL F [facility] Albumin/Globulin [Mass ratio] 1.1 {ratio} Normal 1.1 - 2.2 [facility] ALP [Catalytic activity/Vol] 74 [iU]/d Normal 21 - 98 Int._Unit/L [facility] ALT No additional P-5'-P [Catalytic activity/Vol] 14 [iU]/d Normal 6 - 46 Int._Unit/L [facility] Anion gap [Moles/Vol] 18 mmol/L High 6 - 16 mEq/L [facility] AST [Catalytic activity/Vol] 20 [iU]/d Normal 5 - 43 Int._Unit/L [facility] Bilirubin [Mass/Vol] 1.0 mg/dL Normal 0.0 - 1.1 mg/dL [facility] Bilirubin.direct [Mass/Vol] 0.2 mg/dL Normal 0.1 - 0.4 mg/dL [facility] Bilirubin.indirect [Mass or moles/Vol] 0.8 mg/dL Normal 0.1 - 0.9 mg/dL [facility] Calcium [Mass/Vol] 9.4 mg/dL Normal 8.9 - 11.1 mg/dL [facility] Chloride [Moles/Vol] 103 mmol/L Normal 101 - 111 mmol/ L [facility] CO2 [Moles/Vol] 20 mmol/L Low 21 - 31 mmol/L [facility] Creatinine [Mass/Vol] 1.3 mg/dL Normal 0.5 - 1.3 mg/dL [facility] GFR/1.73 sq M.predicted among blacks MDRD (S/P/Bld) [Vol rate/Area] 49 mL/min/1.73 m2 Low >=59mL/min/1.73 m2 [facility] Chem S GFR/1.73 sq M.predicted among non-blacks MDRD (S/P/Bld) [Vol rate/Area] 40 mL/min/1.73 m2 Low >=59mL/min/1.73 m2 FT Chem S Globulin (S) [Mass/Vol] 3.6 g/dL Normal 1.4 - 4.0 gm/dL [facility] Glucose [Mass/Vol] 263 mg/dL High 55 - 199 mg/dL [facility] Lactate [Mass/Vol] 1.7 mmol/L Normal 0.5 - 2.2 mmol/L [facility] Comment on above: Result Comment: 'Spe cimen hemolyzed, result may be affected. Redraw is recommended.' Lipase [Catalytic activity/Vol] 82 U/L High 13 - 58 unit/L [facility] Potassium [Moles/Vol] 5.6 mmol/L High 3.5 - 5.3 mmol/L [facility] Protein [Mass/Vol] 7.6 g/dL Normal 6.0 - 7.8 gm/dL F [facility] Sodium [Moles/Vol] 135 mmol/L Normal 135 - 145 mmol/L [facility] Troponin I.cardiac [Mass/Vol] 23.50 pg/mL Normal 10.10 - 27.10 pg/mL [facility] Urea nitrogen [Mass/Vol] 25 mg/dL High 5 - 21 mg/dL [facility] Urea nitrogen/Creatinine [Mass ratio] 19 mg/mg Normal 10 - 20 [facility] COAGULATIONOrdered By: Db Lopez on 11-14-2022 aPTT Coag (PPP) [Time] 28.6 s Normal 25.1 - 36.5 second(s) [facility] Auto Coag INR Coag (PPP) [Relative time] 1.1 {INR} Invalid Interpretation Code [facility] Auto Coag PT Coag (PPP) [Time] 11.8 s Normal 9.4 - 1 2.5 second(s) [facility] Auto Coag HEMATOLOGYOrdered By: SYSTEM SYSTEM on 11-14-2022 Basophils/100 WBC (Bld) 0.5 % Normal 0.0 - 2.0 % [facility] HemeAutoSS Basophils/Leukocytes Auto (Bld) [Pure # fraction] 0.0 E9/L Normal 0.0 - 0.2 E9/L [facility] HemeAutoSS Eosinophils/100 WBC (Bld) 0.1 % Normal 0.0 - 8.0 % [facility] HemeAutoSS Eosinophils/Leukocyt es Auto (Bld) [Pure # fraction] 0.0 E9/L Normal 0.0 - 0.5 E9/L [facility] HemeAutoSS Lymphocytes/100 WBC (Bld) 11.6 % Low 14.0 - 50.0 % [facility] HemeAutoSS Lymphocytes/Leukocyt es Auto (Bld) [Pure # fraction] 0.9 E9/L Low 1.0 - 4.0 E9/L [facility] HemeAutoSS Monocytes/100 WBC (Bld) 15.6 % High 4.0 - 14.0 % [facility] HemeAutoSS Monocytes/Leukocytes Auto (Bld) [Pure # fraction] 1.2 E9/L High 0.2 - 1.0 E9/L [facility] HemeAutoSS Neutrophils/100 WBC (Bld) 72.2 % Normal 36.0 - 75.0 % [facility] HemeAutoSS Neutrophils/Leukocyt es Auto (Bld) [Pure # fraction] 5.5 E9/L Normal 2.0 - 7.5 E9/L [facility] HemeAutoSS HEMATOLOGYOrdered By: Ike Lopez on 11-14-2022 Erythrocyte distribution width (RBC) [Ratio] 14.5 % High 10.9 - 14.2 % [facility] HemeAutoSS Hematocrit (Bld) [Volume fraction] 46.3 % High 34.0 - 46.0 % [facility] HemeAutoSS Hemoglobin (Bld) [Mass/Vol] 14.6 g/dL Normal 12.0 - 16.0 gm/dL [facility] HemeAutoSS MCH (RBC) [Entitic mass] 27.6 pg Normal 27.0 - 34.0 pg [facility] HemeAutoSS MCHC (RBC) [Mass/Vol] 31.5 g/dL Normal 31.4 - 36.0 gm/dL [facility] HemeAutoSS MCV (RBC) [Entitic vol] 87.7 fL Normal 80.0 - 100.0 fL [facility] HemeAutoSS Platelet mean volume (Bld) [Entitic vol] 7.7 fL Normal 6.4 - 10.8 fL [facility] HemeAutoSS Platelets (Bld) [#/Vol] 166.0 E9/L Normal 150.0 - 500.0 E9/L [facility] HemeAutoSS RBC (Bld) [#/Vol] 5.3 E12/L Normal 4.3 - 5.9 E12/L [facility] HemeAutoSS WBC corrected for nucl RBC Auto (Bld) [#/Vol] 7.6 E9/L Normal 4.0 - 11.0 E9/L [facility] HemeAutoSS Comment on above: Result Comment: Slid e reviewed by AD. URINALYSISOrdered By: Ike Lopez on 11-14-2022 Bacteria LM Ql (Urine sed) 1+ /HPF Invalid Interpretation Code Trace/HPF [facility] UA Auto SS Bilirubin Ql (U) Negative (11/14/22 1:26 AM) Normal Negative [facility] UA Auto SS Clarity (U) Cloudy *ABN* (11/14/22 1:26 AM) Invalid Interpretation Code Clear [facility] UA Auto SS Color (U) Yellow (11/14/22 1:26 AM) Normal Yellow [facility] UA Auto SS Epithelial cells.squamous LM.HPF (Urine sed) [#/Area] /[HPF] Normal 0-2/HPF [facility] UA Auto SS Glucose Test strip (U) [Mass/Vol] Negative (11/14/22 1:26 AM) Normal Negative [facility] UA Auto SS Hemoglobin Ql (U) 2+ *ABN* (11/14/22 1:26 AM) Invalid Interpretation Code Negative [facility] UA Auto SS Ketones (U) [Mass/Vol] Trace *NA* (11/14/22 1:26 AM) Invalid Interpretation Code Negative [facility] UA Auto SS Kenvir.plasma/Lithi um.RBC (Bld) [Mass ratio] 4-20 /HPF Normal 0-3/HPF [facility] UA Auto SS Nitrite Ql (U) Negative (11/14/22 1:26 AM) Normal Negative [facility] UA Auto SS pH (U) 6.0 *NA* (11/14/22 1:26 AM) Invalid Interpretation Code 5.0 - 9.0 [facility] UA Auto SS Protein (U) [Mass/Vol] 1+ *ABN* (11/14/22 1:26 AM) Invalid Interpretation Code Negative [facility] UA Auto SS Specific gravity (U) [Rel density] 1.020 *NA* (11/14/22 1:26 AM) Invalid Interpretation Code 1.005 - 1.030 [facility] UA Auto SS UA Spec Desc Clean Catch (11/14/22 1:26 AM) Normal [facility] UA Auto SS Urobilinogen Qn (U) 1.0558638 {Isis'U}/dL Normal 0.0 - 1.0 EU/dL [facility] UA Auto SS WBC Auto Ql (U) 2+ *ABN* (11/14/22 1:26 AM) Invalid Interpretation Code Negative [facility] UA Auto SS WBC LM.HPF (Urine sed) [#/Area] 16-25 /HPF Invalid Interpretation Code 0-5/HPF [facility] UA Auto SS CHEMISTRYOrdered By: Lab ROP User on 11-13-2022 Glucose [Mass/Vol] 223 mg/dL High 55 - 99 mg/dL FT C POC Subsection Comment on above: Result Comment: [place] vanegas RN/ POC Device SN [id number] Invalid Interpretation Code [facility] [place] Sub[place] POC User ID [id number] Invalid Interpretation Code [facility] Subsection POC Username AZIZA DELA CRUZ Invalid Interpretation Code [facility] [place] Subsection Office Visit (Cardiology)on 07-29-2022 Follow-up visit Diagnoses/Problems Assessed CAD in [place] artery (414.01) (I25.10) CHF (congestive heart failure) (428.0) (I50.9) History of PTCA (V45.82) (Z98.61) 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) PVC (premature ventricular contraction) (427.69) (I49.3) Ischemic cardiomyopathy (414.8) (I25.5) Atherosclerosis of coronary artery bypass graft of [place] heart without angina pectoris (414.05) (I25.810) Diabetes (250.00) (E11.9) Hyperlipidemia (272.4) (E78.5) Hypertension (401.9) (I10) Class 2 obesity with body mass index (BMI) of 35.0 to 35.9 in adult (278.00,V85.35) (E66.9,Z68.35) Never a smoker History of PA (myocardial infarction) (412) (I25.2) Orders CHF (congestive heart failure), History of PTCA, S/P CABG x 4 Cardiac Rehab Referral Evaluation and Treatment Evaluate AND Treat Status: Hold For - Scheduling,Retrospect nadia Authorization Requested for: 29Jul2022 Agreement : I agree to have my patient participate in the phase III outpatient cardiac rehabilitation program after completion of the phase II program. Consent : I consent to have my patient participate in the cardiac rehabilitation program. I will continue regular medical care of my patient throughout his/her participation in the program. Individualized Treatment Plan and Exercise Prescription : Defer the patients ITP and exercise prescription to be developed by the staff for your review and approval I authorize the Cardiac Rehabilitation Department to : Current lab values are helpful in order to assess the lipid status and individualize diet therapy. A venous blood sample will be drawn and lipids analyzed at the laboratory I authorize the Cardiac Rehabilitation Department to : Schedule a symptom limited graded exercise test with 12 lead ECG prior to starting cardiac rehabilitation and at discharge, if needed. Class 2 obesity with body mass index (BMI) of 35.0 to 35.9 in adult Healthy Weight Tips; Status:Complete - Retrospective Authorization; Done: 29Jul2022 Some eating tips that can help you lose weight.; Status:Complete - Retrospective Authorization; Done: 29Jul2022 SocHx: Never a smoker Tobacco Use Screening; Status:Complete; Done: [id number] Patient Instructions Please bring all medicines, vitamins, and herbal supplements with you when you come to the office. Prescriptions will not be filled unless you are compliant with your follow up appointments or have a follow up appointment scheduled as per instruction of your physician. Refills should be requested at the time of your visit. Follow up in 1 year Chief Complaint SHAHANA GRACE is being seen for an annual follow-up of. 72-year-old female follows up at 1 year and is doing very well she has no cardiovascular complaints, angina, nitrate usage or hospitalizations. She suffered an inferior PA in 2015 with primary revascularization of the RCA, subsequent four-vessel CABG due to severe left coronary disease. She has done well with for the past 6 years. She has underlying comorbidities to continue to include controlled hypertension, hyperlipidemia and diabetes mellitus. She is intolerant to aspirin but remains on clopidogrel, she also remains on lisinopril and metoprolol and atorvastatin Recommendations, continue current therapies, obtain appropriate laboratories, follow-up in 1 year Surgical History Problems History of Appendectomy History of CABG History of Cath Atherectomy 1 With Stent Placement History of section x2 History of Colonoscopy 30Aug2006 [facility] History of Lithotripsy Past Medical History Problems History of urinary tract infection (V13.02) (Z87.440) History of Post-op pain (338.18) (G89.18) Resolved Date: 29 Jul 2022 History of Volume depletion (276.50) (E86.9) Current Meds Medication NameInstruction Atorvastatin Calcium 40 MG Oral TabletTAKE 1 TABLET AT BEDTIME. Clopidogrel Bisulfate 75 MG Oral TabletTAKE 1 TABLET BY MOUTH WEDNESDAY THROUGH WEDNESDAY glipiZIDE 5 MG Oral TabletTAKE 1 TABLET DAILY. Lisinopril 5 MG Oral TabletTake 1 tablet twice a day Metoprolol Tartrate 50 MG Oral TabletTAKE 1 TABLET BY MOUTH EVERY 12 HOURS Allergies Medication aspirin Anaphylaxis;; Recorded By: Shahana Velázquez; 04/09/2017 1:12:21 PM Social History Problems Never a smoker No alcohol use No caffeine use No illicit drug use Review of Systems Constitutional: not feeling tired. Cardiovascular: no intermittent leg claudication and as noted in HPI. Respiratory: no cough and no shortness of breath. Gastrointestinal: no change in bowel habits and no blood in stools. Integumentary: no skin rashes. Neurological: dizziness, but no seizures and no frequent falls. All other systems have been reviewed and are negative for complaint. Vitals Vital Signs Recorded: 29Jul2022 09:54AM Heart Rate80, L Radial Iqhlvezr932, LUE, Sitting Exaudozjs27, LUE, Sitting Height5 ft 2 in Pygvps399 lb BMI Lqdsqlvpxm92.85 kg/m2 BSA Calculated1.9 (more content not included)... Normal [facility] Tobacco Screening.on 022 Adult depression screening assessment No [facility] io [facility] y 250 DO Work Phone: Fall risk assessment a) No falls within the last year [facility] 250 DO Work Phone: Tobacco use status [facility] b) No [facility] 250 DO Work Phone: CHEMISTRYOrdered By: SYSTEM SYSTEM on 06-19-2022 Anion gap [Moles/Vol] 9 mmol/L Normal 6 - 16 mEq/L [facility] Remisol Calcium [Mass/Vol] 8.5 mg/dL Low 8.9 - 11.1 mg/dL [facility] Chloride [Moles/Vol] 113 mmol/L High 101 - 111 mmol/ L [facility] CO2 [Moles/Vol] 20 mmol/L Low 21 - 31 mmol/L [facility] Creatinine [Mass/Vol] 2.0 mg/dL High 0.5 - 1.3 mg/dL [facility] GFR/1.73 sq M.predicted among blacks MDRD (S/P/Bld) [Vol rate/Area] 30 mL/min/1.73 m2 Low >=59mL/min/1.73 m2 [facility] [place] Chem S GFR/1.73 sq M.predicted among non-blacks MDRD (S/P/Bld) [Vol rate/Area] 25 mL/min/1.73 m2 Low >=59mL/min/1.73 m2 [facility] Chem S Glucose [Mass/Vol] 207 mg/dL High 55 - 199 mg/dL [facility] Potassium [Moles/Vol] 4.4 mmol/L Normal 3.5 - 5.3 mmol/L [facility] Sodium [Moles/Vol] 138 mmol/L Normal 135 - 145 mmol/L [facility]isol Urea nitrogen [Mass/Vol] 37 mg/dL High 5 - 21 mg/dL [facility] Urea nitrogen/Creatinine [Mass ratio] 18 mg/mg Normal 10 - 20 [facility] Remisol CHEMISTRYOrdered By: Lab ROP User on 06-19-2022 Glucose [Mass/Vol] 176 mg/dL High 55 - 99 mg/dL FT C POC Subsection Comment on above: Result Comment: Modesto vanegas RN/ Glucose [Mass/Vol] 190 mg/dL High 55 - 99 mg/dL [facility] C POC Subsection Comment on above: Result Comment: Modesto vanegas RN/ POC Device SN [id number] Invalid Interpretation Code [facility] POC Subsection POC Device SN [id number] Invalid Interpretation Code [facility] POC Subsection POC User ID [id number] Invalid Interpretation Code [facility] POC Subsection POC User ID [id number] Invalid Interpretation Code [facility] POC Subsection POC Username Ayleen Kelley Invalid Interpretation Code [facility] POC Subsection POC Username Ayleen Kelley Invalid Interpretation Code [facility] POC Subsection HEMATOLOGYOrdered By: SYSTEM SYSTEM on 06-19-2022 Basophils/100 WBC (Bld) 0.2 % Normal 0.0 - 2.0 % [facility] HemeAutoSS Basophils/Leukocytes Auto (Bld) [Pure # fraction] 0.0 E9/L Normal 0.0 - 0.2 E9/L [facility] HemeAutoSS Eosinophils/100 WBC (Bld) 0.2 % Normal 0.0 - 8.0 % [facility] HemeAutoSS Eosinophils/Leukocyt es Auto (Bld) [Pure # fraction] 0.0 E9/L Normal 0.0 - 0.5 E9/L [facility] HemeAutoSS Lymphocytes/100 WBC (Bld) 6.2 % Low 14.0 - 50.0 % [facility] HemeAutoSS Lymphocytes/Leukocyt es Auto (Bld) [Pure # fraction] 0.7 E9/L Low 1.0 - 4.0 E9/L [facility] HemeAutoSS Monocytes/100 WBC (Bld) 6.7 % Normal 4.0 - 14.0 % [facility] HemeAutoSS Monocytes/Leukocytes Auto (Bld) [Pure # fraction] 0.8 E9/L Normal 0.2 - 1.0 E9/L [facility] HemeAutoSS Neutrophils/100 WBC (Bld) 86.7 % High 36.0 - 75.0 % [facility] HemeAutoSS Neutrophils/Leukocyt es Auto (Bld) [Pure # fraction] 10.0 E9/L High 2.0 - 7.5 E9/L [facility] HemeAutoSS HEMATOLOGYOrdered By: Rayne Barnhart on 06-19-2022 Erythrocyte distribution width (RBC) [Ratio] 13.9 % Normal 10.9 - 14.2 % [facility] HemeAutoSS Hematocrit (Bld) [Volume fraction] 35.3 % Normal 34.0 - 46.0 % [facility] HemeAutoSS Hemoglobin (Bld) [Mass/Vol] 12.0 g/dL Normal 12.0 - 16.0 gm/dL [facility] HemeAutoSS MCH (RBC) [Entitic mass] 30.6 pg Normal 27.0 - 34.0 pg [facility] HemeAutoSS MCHC (RBC) [Mass/Vol] 34.0 g/dL Normal 31.4 - 36.0 gm/dL [facility]Auto[facility] MCV (RBC) [Entitic vol] 90.1 fL Normal 80.0 - 100.0 fL [facility] HemeAutoSS Platelet mean volume (Bld) [Entitic vol] 7.4 fL Normal 6.4 - 10.8 fL [facility] HemeAutoSS Platelets (Bld) [#/Vol] 170.0 E9/L Normal 150.0 - 500.0 E9/L [facility]eAutoSS RBC (Bld) [#/Vol] 3.9 E12/L Low 4.3 - 5.9 E12/L [facility] HemeAutoSS WBC corrected for nucl RBC Auto (Bld) [#/Vol] 11.5 E9/L High 4.0 - 11.0 E9/L [facility]eAutoSS CHEMISTRYOrdered By: SYSTEM SYSTEM on 06-18-2022 Anion gap [Moles/Vol] 15 mmol/L Normal 6 - 16 mEq/L [facility] Calcium [Mass/Vol] 9.0 mg/dL Normal 8.9 - 11.1 mg/dL [facility] Chloride [Moles/Vol] 110 mmol/L Normal 101 - 111 mmol/ L [facility] CO2 [Moles/Vol] 20 mmol/L Low 21 - 31 mmol/L [facility] Creatinine [Mass/Vol] 1.9 mg/dL High 0.5 - 1.3 mg/dL [facility] GFR/1.73 sq M.predicted among blacks MDRD (S/P/Bld) [Vol rate/Area] 32 mL/min/1.73 m2 Low >=59mL/min/1.73 m2 [facility] [facility] Chem S GFR/1.73 sq M.predicted among non-blacks MDRD (S/P/Bld) [Vol rate/Area] 26 mL/min/1.73 m2 Low >=59mL/min/1.73 m2 [facility] Chem S Glucose [Mass/Vol] 279 mg/dL High 55 - 199 mg/dL [facility] Remisol Potassium [Moles/Vol] 4.9 mmol/L Normal 3.5 - 5.3 mmol/L [facility] Remisol Sodium [Moles/Vol] 140 mmol/L Normal 135 - 145 mmol/L [facility] Remisol Urea nitrogen [Mass/Vol] 36 mg/dL High 5 - 21 mg/dL [facility] Remisol Urea nitrogen/Creatinine [Mass ratio] 19 mg/mg Normal [facility] Remisol CHEMISTRYOrdered By: Lab ROP User on 06-18-2022 Glucose [Mass/Vol] 192 mg/dL High 55 - 99 mg/dL [facility] C POC Subsection Comment on above: Result Comment: Modesto vanegas RN/ POC Device SN [id number] Invalid Interpretation Code [facility] [place]OC Subsection POC User ID [id number] Invalid Interpretation Code [facility] POC Subsection POC Username KAIA BURR Invalid Interpretation Code [facility] [place] Subsection HEMATOLOGYOrdered By: SYSTEM SYSTEM on 06-18-2022 Basophils/100 WBC (Bld) 0.5 % Normal 0.0 - 2.0 % [facility] HemeAutoSS Basophils/Leukocytes Auto (Bld) [Pure # fraction] 0.1 E9/L Normal 0.0 - 0.2 E9/L [facility] HemeAutoSS Eosinophils/100 WBC (Bld) 0.0 % Normal 0.0 - 8.0 % [facility] HemeAutoSS Eosinophils/Leukocyt es Auto (Bld) [Pure # fraction] 0.0 E9/L Normal 0.0 - 0.5 E9/L [facility] HemeAutoSS Lymphocytes/100 WBC (Bld) 4.6 % Low 14.0 - 50.0 % [facility] HemeAutoSS Lymphocytes/Leukocyt es Auto (Bld) [Pure # fraction] 0.7 E9/L Low 1.0 - 4.0 E9/L [facility] HemeAutoSS Monocytes/100 WBC (Bld) 3.9 % Low 4.0 - 14.0 % [facility] HemeAutoSS Monocytes/Leukocytes Auto (Bld) [Pure # fraction] 0.6 E9/L Normal 0.2 - 1.0 E9/L [facility]eAutoSS Neutrophils/100 WBC (Bld) 91.0 % High 36.0 - 75.0 % [facility] HemeAutoSS Neutrophils/Leukocyt es Auto (Bld) [Pure # fraction] 13.6 E9/L High 2.0 - 7.5 E9/L [facility] HemeAutoSS HEMATOLOGYOrdered By: Wendy Pritchard on 06-18-2022 Erythrocyte distribution width (RBC) [Ratio] 13.8 % Normal 10.9 - 14.2 % [facility] HemeAutoSS Hematocrit (Bld) [Volume fraction] 39.1 % Normal 34.0 - 46.0 % [facility] HemeAutoSS Hemoglobin (Bld) [Mass/Vol] 13.3 g/dL Normal 12.0 - 16.0 gm/dL [facility] HemeAutoSS MCH (RBC) [Entitic mass] 30.8 pg Normal 27.0 - 34.0 pg [facility]eAutoSS MCHC (RBC) [Mass/Vol] 34.0 g/dL Normal 31.4 - 36.0 gm/dL [facility] HemeAutoSS MCV (RBC) [Entitic vol] 90.5 fL Normal 80.0 - 100.0 fL [facility]eAutoSS Platelet mean volume (Bld) [Entitic vol] 8.1 fL Normal 6.4 - 10.8 fL [facility] HemeAutoSS Platelets (Bld) [#/Vol] 208.0 E9/L Normal 150.0 - 500.0 E9/L [facility]eAutoSS RBC (Bld) [#/Vol] 4.3 E12/L Normal 4.3 - 5.9 E12/L [facility] HemeAutoSS WBC corrected for nucl RBC Auto (Bld) [#/Vol] 15.0 E9/L High 4.0 - 11.0 E9/L [facility] HemeAutoSS CHEMISTRYOrdered By: SYSTEM SYSTEM on 06-17-2022 Albumin [Mass/Vol] 3.9 g/dL Normal 3.3 - 5.0 gm/dL [facility] Remisol Albumin/Globulin [Mass ratio] 1.0 {ratio} Low 1.1 - 2.2 [facility] Remisol ALP [Catalytic activity/Vol] 67 [iU]/d Normal 21 - 98 Int._Unit/L [facility] Remisol ALT No additional P-5'-P [Catalytic activity/Vol] 13 [iU]/d Normal 6 - 46 Int._Unit/L [facility] Remisol Anion gap [Moles/Vol] 19 mmol/L High 6 - 16 mEq/L [facility] AST [Catalytic activity/Vol] 15 [iU]/d Normal 5 - 43 Int._Unit/L [facility] Bilirubin [Mass/Vol] 0.8 mg/dL Normal 0.0 - 1.1 mg/dL [facility] Bilirubin.direct [Mass/Vol] 0.2 mg/dL Normal 0.1 - 0.4 mg/dL [facility] Bilirubin.indirect [Mass or moles/Vol] 0.6 mg/dL Normal 0.1 - 0.9 mg/dL [facility] Calcium [Mass/Vol] 9.6 mg/dL Normal 8.9 - 11.1 mg/dL [facility] Chloride [Moles/Vol] 106 mmol/L Normal 101 - 111 mmol/ L [facility] CO2 [Moles/Vol] 21 mmol/L Normal 21 - 31 mmol/L [facility] Creatinine [Mass/Vol] 1.9 mg/dL High 0.5 - 1.3 mg/dL [facility] GFR/1.73 sq M.predicted among blacks MDRD (S/P/Bld) [Vol rate/Area] 32 mL/min/1.73 m2 Low >=59mL/min/1.73 m2 [facility] [place] Chem S GFR/1.73 sq M.predicted among non-blacks MDRD (S/P/Bld) [Vol rate/Area] 26 mL/min/1.73 m2 Low >=59mL/min/1.73 m2 [facility] Chem S Globulin (S) [Mass/Vol] 3.7 g/dL Normal 1.4 - 4.0 gm/dL [facility] Glucose [Mass/Vol] 327 mg/dL High 55 - 199 mg/dL [facility] Lipase [Catalytic activity/Vol] 70 U/L High 13 - 58 unit/L [facility] Potassium [Moles/Vol] 4.8 mmol/L Normal 3.5 - 5.3 mmol/L [facility] Protein [Mass/Vol] 7.6 g/dL Normal 6.0 - 7.8 gm/dL [facility] [place] Remisol Sodium [Moles/Vol] 141 mmol/L Normal 135 - 145 mmol/L [facility] Remisol Urea nitrogen [Mass/Vol] 31 mg/dL High 5 - 21 mg/dL [facility] Remisol Urea nitrogen/Creatinine [Mass ratio] 16 mg/mg Normal 10 - 20 [facility] Remisol HEMATOLOGYOrdered By: SYSTEM SYSTEM on 06-17-2022 Basophils/100 WBC (Bld) 0.3 % Normal 0.0 - 2.0 % [facility] HemeAutoSS Basophils/Leukocytes Auto (Bld) [Pure # fraction] 0.0 E9/L Normal 0.0 - 0.2 E9/L [facility]eAutoSS Eosinophils/100 WBC (Bld) 0.1 % Normal 0.0 - 8.0 % [facility] HemeAutoSS Eosinophils/Leukocyt es Auto (Bld) [Pure # fraction] 0.0 E9/L Normal 0.0 - 0.5 E9/L [facility]eAutoSS Lymphocytes/100 WBC (Bld) 4.6 % Low 14.0 - 50.0 % [facility] HemeAutoSS Lymphocytes/Leukocyt es Auto (Bld) [Pure # fraction] 0.7 E9/L Low 1.0 - 4.0 E9/L [facility]eAutoSS Monocytes/100 WBC (Bld) 5.3 % Normal 4.0 - 14.0 % [facility] HemeAutoSS Monocytes/Leukocytes Auto (Bld) [Pure # fraction] 0.8 E9/L Normal 0.2 - 1.0 E9/L [facility]eAutoSS Neutrophils/100 WBC (Bld) 89.7 % High 36.0 - 75.0 % [facility] HemeAutoSS Neutrophils/Leukocyt es Auto (Bld) [Pure # fraction] 12.8 E9/L High 2.0 - 7.5 E9/L [facility]eAutoSS HEMATOLOGYOrdered By: Niranjan Calloway on 06-17-2022 Erythrocyte distribution width (RBC) [Ratio] 13.3 % Normal 10.9 - 14.2 % [facility] HemeAutoSS Hematocrit (Bld) [Volume fraction] 43.5 % Normal 34.0 - 46.0 % [facility]eAutoSS Hemoglobin (Bld) [Mass/Vol] 14.9 g/dL Normal 12.0 - 16.0 gm/dL [facility]eAutoSS MCH (RBC) [Entitic mass] 30.8 pg Normal 27.0 - 34.0 pg [facility]eAutoSS MCHC (RBC) [Mass/Vol] 34.3 g/dL Normal 31.4 - 36.0 gm/dL [facility]eAutoSS MCV (RBC) [Entitic vol] 89.7 fL Normal 80.0 - 100.0 fL [facility]eAutoSS Platelet mean volume (Bld) [Entitic vol] 7.6 fL Normal 6.4 - 10.8 fL [facility]eAutoSS Platelets (Bld) [#/Vol] 214.0 E9/L Normal 150.0 - 500.0 E9/L [facility]eAutoSS RBC (Bld) [#/Vol] 4.8 E12/L Normal 4.3 - 5.9 E12/L [facility] HemeAutoSS WBC corrected for nucl RBC Auto (Bld) [#/Vol] 14.3 E9/L High 4.0 - 11.0 E9/L [facility] HemeAutoSS TRIMETHOPRIM+SULFAMETHOXAZOL E:SUSC:PT:ISOLATE:ORDQN:MICOrdered By: Nata Prieto on 06-17-2022 Trimethoprim+Sulfame thoxazole LAUREN [Susc] 20,000 cfu/ml Klebsiella pneumoniae <10,000 cfu/ml Mixed skin contaminants [facility] Trimethoprim+Sulfamethoxazol e LAUREN [Susc]Ordered By: Nata Prieto on 06-17-2022 Klebsiella pneumoniae Klebsiella pneumoniae [facility] URINALYSISOrdered By: Ruperto Lutz on 06-17-2022 Bacteria LM Ql (Urine sed) Trace /HPF Normal Trace/HPF [facility] UA Auto SS Bilirubin Ql (U) Negative (06/17/22 2:35 PM) Normal Negative [facility] UA Auto SS Clarity (U) Clear (06/17/22 2:35 PM) Normal Clear [facility] UA Auto SS Color (U) Yellow (06/17/22 2:35 PM) Normal Yellow [facility] UA Auto SS Epithelial cells.squamous LM.HPF (Urine sed) [#/Area] 3-4 /HPF Normal 0-2/HPF [facility] UA Auto SS Glucose Test strip (U) [Mass/Vol] 3+ *ABN* (06/17/22 2:35 PM) Invalid Interpretation Code Negative [facility] UA Auto SS Hemoglobin Ql (U) 2+ *ABN* (06/17/22 2:35 PM) Invalid Interpretation Code Negative [facility] UA Auto SS Ketones (U) [Mass/Vol] Trace *ABN* (06/17/22 2:35 PM) Invalid Interpretation Code Negative [facility] UA Auto SS Kenvir.plasma/Lithi um.RBC (Bld) [Mass ratio] 4-20 /HPF Normal 0-3/HPF [facility] UA Auto SS Nitrite Ql (U) Negative (06/17/22 2:35 PM) Normal Negative [facility] UA Auto SS pH (U) 6.0 *NA* (06/17/22 2:35 PM) Invalid Interpretation Code 5.0 - 9.0 [facility] UA Auto SS Protein (U) [Mass/Vol] Trace *ABN* (06/17/22 2:35 PM) Invalid Interpretation Code Negative [facility] UA Auto SS Specific gravity (U) [Rel density] 1.020 *NA* (06/17/22 2:35 PM) Invalid Interpretation Code 1.005 - 1.030 [facility] UA Auto SS UA Spec Desc Clean Catch (06/17/22 2:35 PM) Normal [facility] UA Auto SS Urobilinogen Qn (U) [id number] {Isis'U}/dL Normal 0.0 - 1.0 EU/dL [facility] UA Auto SS WBC Auto Ql (U) 1+ *ABN* (06/17/22 2:35 PM) Invalid Interpretation Code Negative [facility] UA Auto SS WBC LM.HPF (Urine sed) [#/Area] 6-15 /HPF Invalid Interpretation Code 0-5/HPF [facility] UA Auto SS CNCOon 01-28-2022 [facility] HNO ID: [id number] Author: Mammography Coordinator Service: ? Author Type: Physician Type: Letter Filed: 01/29/2022 11:34 PM Note Text: January 28, 2022 PID: [id number] Shahana Grace [address] [place] [address] Dear Ms. Grace, We are pleased to inform you that the results of your recent breast imaging exam on 01/28/2022 are normal. Early detection of cancer is very important. We also understand recommendations regarding breast cancer screening are controversial. Please discuss with your primary care provider which strategy is best for you and whether a mammogram is right for you. Your imaging studies and report will be kept on file at [facility] as part of your permanent medical record and are available for your continuing care. Thank you for allowing us to help in meeting your health care needs. Sincerely, Dr. Green Interpreting Radiologist [facility] (Normal over 40) Normal [facility] SCREENINGon 01-28-2022 [facility] SCREENING * * *Final Report* * * DATE OF EXAM: Jan 28 2022 12:49PM [facility] [id number] - [facility] SCREENING / PROCEDURE REASON: annual * * * * Physician Interpretation * * * * RESULT: #[id number] - [facility] SCREENING BILATERAL DIGITAL SCREENING MAMMOGRAM WITH CAD: 01/28/2022 HISTORY: Screening Mammogram-Patient reports NO symptoms. RESULT: TECHNIQUE: The study was acquired using full field digital technology and interpreted from soft copy. Current study was also evaluated with a Computer Aided Detection (CAD). Comparison is made to exams dated: 11/11/2020 mammogram - [facility], 11/10/2019 mammogram - [facility], 07/13/2018 mammogram, and 04/29/2017 [facility]. There are scattered fibroglandular elements in both breasts. There is a biopsy clip in the right breast. No significant masses, calcifications, or other findings are seen in either breast. There has been no significant interval change. IMPRESSION: NEGATIVE There is no mammographic evidence of malignancy. A 1 year screening mammogram is recommended. Nafisa fernando/vincent:01/28/2022 14:40:17 [employer](s): [employer](R)(M), [facility] letter sent: Normal over 40 Mammogram BI-RADS: 1 Negative Multiple national specialty organizations have released breast cancer screening guidelines for women at average risk for developing breast cancer - guidelines that are based on both evidence and opinion, yet differ on when to start and how often to screen for breast cancer. With representation from Breast Imaging, Internal Medicine, Women's Health, Family Medicine, and Medical/Surgical Oncology, the [facility] has carefully reviewed the data and reached the following consensus: 1) All women should engage in shared decision-making with their providers to decide when to start and how often to screen; 2) All women should have the opportunity to start screening mammography at age 40; 3) For women ages 45-55, we recommend annual screening mammograms; 4) For women ages 55 and over, we support both the transition from an annual to a biennial interval if this aligns more with patient's values and preferences, or continuation with annual screening; 5) All women should discuss with their providers when to stop screening mammograms. Composing Room Machinist: Vincent Transcribe Date/Time: Jan 28 2022 12:39P Dictated by: NAFISA GREEN MD This examination was interpreted and the report reviewed and electronically signed by: NAFISA GREEN MD on Jan 28 2022 2:40PM EST [id number] Normal [facility] CHEMISTRYOrdered By: SYSTEM SYSTEM on 12-10-2021 Creatinine [Mass/Vol] 1.1 mg/dL Normal 0.5 - 1.3 mg/dL [facility] Remisol GFR/1.73 sq M.predicted among blacks MDRD (S/P/Bld) [Vol rate/Area] 60 mL/min/1.73 m2 Normal >=59mL/min/1.73 m2 [facility] Chem S GFR/1.73 sq M.predicted among non-blacks MDRD (S/P/Bld) [Vol rate/Area] 49 mL/min/1.73 m2 Low >=59mL/min/1.73 m2 [facility] Chem S XR KUB 1 VIEWon 10-08-2021 XR KUB 1 VIEW EXAMINATION: XR KUB 1 VIEW HISTORY: Kidney stone COMPARISON: No relevant comparison available. FINDINGS: KIDNEY/URETER - RIGHT: No visible renal or ureteral calcifications. KIDNEY/URETER - LEFT: Left ureteral stent. No visible kidney stones. PELVIS: No visible ureteral stones. Pelvic calcifications favor atherosclerotic disease and phleboliths. BOWEL: Large amount of dense stool within the bowel limiting evaluation of today's study. BONES: No acute abnormality. OTHER: 2.6 cm rim calcified structure within upper left abdomen may represent a splenic artery aneurysm. IMPRESSION: 1. Left ureteral stents appearing in reasonable position. No visible urinary tract calculi but evaluation is limited by dense overlying bowel content. 2. 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 Consider CT abdomen and pelvis with IV contrast follow-up. Electronically authenticated by: FRANSISCA DEL ROSARIO Date: 2021-10-08 07:13 Normal [facility] PROF CHEM 8 (BAS METB)on Anion gap [Moles/Vol] 12.7 mmol/L Normal [facility] Comment on above: Performed By: #### B MP #### [facility] [address] [address] [address] Shreya De La Fuente Calcium [Mass/Vol] 9.7 mg/dL Normal 8.4-10.2 [facility] Comment on above: Performed By: #### B MP #### [facility] [address] [address] [address] Shreya De La Fuente Chloride [Moles/Vol] 108 mmol/L Critically high 98-107 [facility] Comment on above: Performed By: #### B MP #### [facility] [address] [place] [address] Dr. Shreya De La Fuente CO2 [Moles/Vol] 26.1 mmol/L Normal 22.0-30.0 [facility] Comment on above: Performed By: #### B MP #### [facility] [address] [address] [address] Shreya De La Fuente Creatinine [Mass/Vol] 1.29 mg/dL Critically high 0.52-1.04 [facility] Comment on above: Performed By: #### B MP #### [facility] [address] [address] [address] Shreya De La Fuente EGFR-AF RUSSIAN 50 mL/min/1.73m2 Critically low >=60 [facility] Comment on above: Performed By: #### B MP #### [facility] [address] [address] [address] Shreya De La Fuente EGFR-NON AF RUSSIAN 41 mL/min/1.73m2 Critically low >=60 [facility] Comment on above: Performed By: #### B MP #### [facility] [address] [address] [address] Shreya De La Fuente Glucose [Mass/Vol] 117 mg/dL Critically high 74-106 [facility] Comment on above: Performed By: #### B MP #### [facility] [address] [address] [address] Shreya De La Fuente Potassium [Moles/Vol] 3.8 mmol/L Normal 3.4-5.0 [facility] Comment on above: Performed By: #### B MP #### [facility] [address] [address] [address] Shreya De La Fuente Sodium [Moles/Vol] 143 mmol/L Normal 137-145 [facility] Comment on above: Performed By: #### B MP #### [facility] [address] [address] [address] Shreya De La Fuente Urea nitrogen [Mass/Vol] 15.0 mg/dL Normal 7.0-17.0 [facility] Comment on above: Performed By: #### B MP #### [facility] [address] [address] [address] Shreya De La Fuente Urea nitrogen/Creatinine [Mass ratio] 11.6 mg/mg Normal [facility] Comment on above: Performed By: #### B MP #### [facility] [address] [address] [address] Shreya De La Fuente Tobacco Screening.on 021 Fall risk assessment a) No falls within the last year [facility] Work Phone: Heart Rate [facility] 600 [facility] Work Phone: Tobacco use status CP b) No [facility] Work Phone: Radiologyon 07-15-2021 CT Head WO contrast Normal MP-No rth [facility] 250 DO Work Phone: Laboratory - Chemistry and C hemistry - challengeon 07-10-2021 CO2 [Moles/Vol] 20 mmol/L below low threshold 21-31 [facility] 250 DO Work Phone: Creatinine [Mass/Vol] 1.6 mg/dL above high threshold 0.5-1.3 [facility] 250 DO Work Phone: No Panel Informationon 07-10 39 {mL/min/1.73_m2} below low threshold >=59 [facility] HeartKat[facility] y 250 DO Work Phone: Comment on above: eGFR is race adjuste d. AA=. 32 {mL/min/1.73_m2} below low threshold >=59 -[facility] Heart[facility] y 250 DO Work Phone: [phone] Comment on above: Chronic kidney disea se could be indicated at eGFR's of less than 60 mL/min/1.73m2. Kidney failure is indicated at less than 15 mL/min/1.73m2. 14 {mEq/L} Normal 6-16 [facility] Selam pruitt 250 DO Work Phone: [phone] 113 mmol/L above high threshold 101-111 [facility] Selam pruitt 250 DO Work Phone: [phone] 4.3 mmol/L Normal 3.5-5.3 [facility] Selam pruitt 250 DO Work Phone: [phone] 143 mmol/L Normal 135-145 [facility] DO Work Phone: [phone] 9.6 mg/dL Normal 8.9-11.1 [facility] Selam pruitt 250 DO Work Phone: [phone] 31 {No_Units} above high threshold 10-20 [facility] DO Work Phone: [phone] 49 mg/dL above high threshold 5-21 [facility] Selam pruitt 250 DO Work Phone: [phone] 139 mg/dL Normal 55-199 [facility] 250 DO Work Phone: [phone] Comment on above: If this glucose resu lt represents a fasting glucose, interpretation should refer to the following reference range: 55-99 mg/dL Tobacco Screening.on 021 Fall risk assessment a) No falls within the last year [facility] DO Work Phone: Tobacco use status CPHS b) No -[facility] 600 DO Work Phone: Creatinineon 04-22-2017 Creatinine 0.63 mg/dL Normal 0.50-1.05 [facility] Comment on above: Performed By: #### 1 [id number] ####[facility] [id number] [place] [address] eGFR (MDRD) mL/min/{1.73_m2} Normal [facility] Comment on above: Result Comment: Inte rpretation for Chronic Kidney Disease:Stages 1&2 >60 Healthy or potential kidney damage.Mild decrease of GFR.Stage 3 30-59 Moderate decrease of GFR.Stage 4 15-29 Severe decrease of GFR.Stage 5 <15 Kidney failure or on dialysis. Performed By: #### 1 [id number] ####[facility] [id number] [place] [address] Electrolyte Panelon 04-22-20 17 Anion gap 17 mmol/L Normal 10-20 [facility] Comment on above: Performed By: #### 1 [id number] ####[facility] [id number] [place] [address] Bicarbonate (HCO3) 23 mmol/L Normal 21-32 [facility] Healthcare Comment on above: Performed By: #### 1 [id number] ####[facility] [id number] [place] [address] Chloride 108 mmol/L High 98-107 [facility] Healthcare Comment on above: Performed By: #### 1 [id number] ####[facility] [address] [place] [address] Potassium molar conc 3.9 mmol/L Normal 3.5-5.1 [facility] Comment on above: Performed By: #### 1 [id number] ####[facility] [id number] [place] [address] Sodium 144 mmol/L Normal 136-145 [facility] Healthcare Comment on above: Performed By: #### 1 [id number] ####[facility] [id number] [place] [place] [address] Urea Nitrogenon 04-22-2017 Urea nitrogen 11 mg/dL Normal 6-23 [facility] Healthcare Comment on above: Performed By: #### 1 [id number] ####[facility] [address] [place] [address] Social History Date Type Detail Facility Start: 07-28-2023 Alcohol intake Lifetime non-d gisele (finding) [facility] Work Phone: Start: 07-18-2023 End: 07-28-2023 Exposure to SARS-CoV-2 (event) Not sure [facility] Start: 11-26-2021 End: 05-09-2023 Tobacco smoking status Never smoked tobacco (finding) [facility] Comment on above: Denies use. 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 Start: 1950 Sex Assigned At Female [facility] Tobacco [facility] Comment on above: Denies use. Tobacco smoking status Never [facility] [place] Comment on above: Denies use. Vital Signs Date Time Vital Sign Value Performing Clinician Facility 02-23-2024 12:00-0400 Hourly Rounding Glynn ALARCON [facility] 02-23-2024 12:00-0400 Promise to Return Glynn ALARCON [facility] 02-23-2024 11:08-0400 Heart rate 61 /min Glynn AGNES [facility] 02-23-2024 11:08-0400 SaO2% (BldA) [Mass fraction] 94 % Glynn AGNES [facility] 02-23-2024 11:06-0400 Diastolic blood pressure 73 mm[Hg] Glynn AGNES [facility] 02-23-2024 11:06-0400 Mean blood pressure 108 mm[Hg] Glynn AGNES [facility] 02-23-2024 11:06-0400 Systolic blood pressure 179 mm[Hg] Glynn AGNES [facility] 02-23-2024 11:06-0400 Body temperature 97.88 [degF] Glynn AGNES [facility] 02-23-2024 11:00-0400 Hourly Rounding Glynn AGNES [facility] 02-23-2024 11:00-0400 Promise to Return Glynn AGNES [facility] 02-23-2024 10:00-0400 Hourly Rounding Glynn AGNES [facility] 02-23-2024 10:00-0400 Promise to Return Glynn AGNES [facility] 02-23-2024 07:00-0400 Body temperature 97.34 [degF] Glynn AGNES [facility] 02-23-2024 07:00-0400 Diastolic blood pressure 79 mm[Hg] Glynn AGNES [facility] 02-23-2024 07:00-0400 Heart rate 54 /min Glynn AGNES [facility] 02-23-2024 07:00-0400 Respiratory rate 16 /min Glynnjose GRUBBSSLIN [facility] 02-23-2024 07:00-0400 SaO2% (BldA) [Mass fraction] 96 % Glynn AGNES [facility] 02-23-2024 07:00-0400 Systolic blood pressure 182 mm[Hg] Glynn AGNES [facility] 02-22-2024 23:29-0400 Body temperature 98.42 [degF] Glynn AGNES [facility] 02-22-2024 23:29-0400 Diastolic blood pressure 84 mm[Hg] Glynn AGNES [facility] 02-22-2024 23:29-0400 Heart rate 52 /min Glynn AGNES [facility] 02-22-2024 23:29-0400 Respiratory rate 16 /min Glynn AGNES [facility] 02-22-2024 23:29-0400 SaO2% (BldA) [Mass fraction] 97 % Glynn AGNES [facility] 02-22-2024 23:29-0400 Systolic blood pressure 162 mm[Hg] Glynn AGNES [facility] 02-22-2024 21:44-0400 Heart rate 48 /min Glynn AGNES [facility] 02-22-2024 19:15-0400 Mean blood pressure 116 mm[Hg] Glynn AGNES [facility] 02-22-2024 19:15-0400 Body temperature 98.24 [degF] Glynn AGNES [facility] 02-22-2024 16:51-0400 gluc 308 mg/dL Glynn AGNES [facility] 02-22-2024 15:00-0400 Body temperature 97.52 [degF] Glynn AGNES [facility] 02-22-2024 12:48-0400 gluc 303 mg/dL Glynn AGNES [facility] 02-22-2024 09:41-0400 Heart rate 87 /min Glynn AGNES [facility] 02-22-2024 09:40-0400 gluc 212 mg/dL Glynn AGNES [facility] 02-22-2024 07:30-0400 Mean blood pressure 101 mm[Hg] Glynn AGNES [facility] 02-22-2024 03:34-0400 Blood Pressure Location Glynn AGNES [facility] 02-22-2024 03:34-0400 Body temperature 97.16 [degF] Glynn AGNES [facility] 02-22-2024 03:34-0400 Heart rate 52 /min Glynn AGNES [facility] 02-22-2024 03:34-0400 Respiratory rate 18 /min Glynn AGNES [facility] 02-21-2024 15:00-0400 Blood Pressure Location Glynn AGNES [facility] 02-21-2024 15:00-0400 Mean blood pressure 103 mm[Hg] Glynn AGNES [facility] 02-21-2024 15:00-0400 Respiratory rate 16 /min Glynnjose GRUBBSSLIN [facility] 02-21-2024 12:00-0400 Mean blood pressure 99 mm[Hg] Glynn AGNES [facility] 02-21-2024 07:00-0400 Mean blood pressure 112 mm[Hg] Glynnjose GRUBBSSLIN [facility] 02-21-2024 02:37-0400 Heart rate 51 /min Glynnjose GRUBBSSLIN [facility] 02-20-2024 11:50-0400 Heart rate 57 /min Glynnjose GRUBBSSLIN [facility] 02-19-2024 13:28-0400 gluc Glynnjose GRUBBSSLIN [facility] Comment on above: Result Comment: dc 02-19-2024 13:28-0400 Heart rate 75 /min Glynnjose GRUBBSSLIN [facility] 08-05-2023 16:01-0500 Heart rate 78 /min Orestes JACQUES [facility] 08-05-2023 16:01-0500 SaO2% (BldA) [Mass fraction] 96 % Orestes JACQUES [facility] 08-05-2023 16:01-0500 Diastolic blood pressure 85 mm[Hg] Orestes COOK [facility] 08-05-2023 16:01-0500 Mean blood pressure 105 mm[Hg] Orestes COOK [facility] 08-05-2023 16:01-0500 Systolic blood pressure 146 mm[Hg] Orestes COOK [facility] 08-05-2023 16:01-0500 Respiratory rate 16 /min Orestes COOK [facility] 08-05-2023 15:35-0500 Heart rate 77 /min Orestes COOK [facility] 08-05-2023 15:35-0500 SaO2% (BldA) [Mass fraction] 93 % Orestes COOK [facility] 08-05-2023 15:34-0500 Diastolic blood pressure 78 mm[Hg] Orestes COOK [facility] 08-05-2023 15:34-0500 Mean blood pressure 106 mm[Hg] Orestes COOK [facility] 08-05-2023 15:34-0500 Systolic blood pressure 164 mm[Hg] Orestes JACQUES [facility] 08-05-2023 15:34-0500 Mean blood pressure 107 mm[Hg] Orestes COOK [facility] 08-05-2023 15:34-0500 Respiratory rate 18 /min Orestes JACQUES [facility] 08-05-2023 15:26-0500 Body temperature 97.88 [degF] Orestes COOK [facility] 08-05-2023 15:26-0500 Heart rate 71 /min Orestes COOK [facility] 08-05-2023 15:26-0500 Respiratory rate 20 /min Orestes COOK [facility] 08-05-2023 15:26-0500 SaO2% (BldA) [Mass fraction] 95 % Orestes COOK [facility] 08-05-2023 15:26-0500 Systolic blood pressure 159 mm[Hg] Orestes COOK [facility] 08-05-2023 15:01-0500 Body temperature 97.7 [degF] Orestes JACQUES [facility] 08-05-2023 14:55-0500 Respiratory rate 11 /min Orestes JACQUES [facility] 08-05-2023 14:50-0500 Respiratory rate 16 /min Orestes JACQUES [facility] 08-05-2023 12:46-0500 Mean blood pressure 127 mm[Hg] Orestes JACQUES [facility] 08-05-2023 12:44-0500 Blood Pressure Location Orestes JACQUES [facility] 08-05-2023 12:26-0500 Body temperature 97.88 [degF] Orestes JACQUES [facility] 07-28-2023 11:14-0500 Body height 157.5 cm Sterling Florian DO Work Phone: [facility] 07-28-2023 11:14-0500 Body mass index (BMI) [Ratio] 34.39 kg/m2 Sterling Snidon Work Phone: [facility] 07-28-2023 11:14-0500 Body weight 85.28 kg Sterling Sindon Work Phone: [facility] 07-28-2023 11:14-0500 Diastolic blood pressure 86 mm[Hg] Sterling Florian Work Phone: [facility] 07-28-2023 11:14-0500 Heart rate 74 /min Sterling Florian Work Phone: [facility] 07-28-2023 11:14-0500 Systolic blood pressure 128 mm[Hg] Sterling Florian Work Phone: [facility] 06-02-2023 12:16-0400 Hourly Rounding [place] [facility] 06-02-2023 12:16-0400 [facility] 06-02-2023 11:11-0400 Hourly Rounding [facility] 06-02-2023 11:11-0400 [facility] 06-02-2023 11:03-0400 Heart rate 54 /min [facility] 06-02-2023 11:03-0400 SaO2% (BldA) [Mass fraction] 94 % [facility] 06-02-2023 11:02-0400 Body temperature 98.06 [degF] [facility] 06-02-2023 11:02-0400 Diastolic blood pressure 87 mm[Hg] [facility] 06-02-2023 11:02-0400 Mean blood pressure 113 mm[Hg] [facility] 06-02-2023 11:02-0400 Systolic blood pressure 165 mm[Hg] [facility] 06-02-2023 11:00-0400 Respiratory rate 18 /min [facility] 06-02-2023 10:29-0400 Hourly Rounding [facility] 06-02-2023 10:29-0400 Promise to Return [facility] 06-02-2023 08:50-0400 Heart rate 68 /min [facility] 06-02-2023 08:03-0400 Heart rate 58 /min [facility] 06-02-2023 08:03-0400 SaO2% (BldA) [Mass fraction] 96 % [facility] 06-02-2023 08:00-0400 Diastolic blood pressure 83 mm[Hg] [facility] 06-02-2023 08:00-0400 Mean blood pressure 118 mm[Hg] [facility] 06-02-2023 08:00-0400 Systolic blood pressure 188 mm[Hg] [facility] 06-02-2023 08:00-0400 Body temperature 97.7 [degF] [facility] 06-02-2023 02:36-0400 Blood Pressure Location [facility] 06-02-2023 02:36-0400 Body temperature 98.06 [degF] [facility] 06-02-2023 02:36-0400 Heart rate 68 /min [facility] 06-02-2023 02:36-0400 Respiratory rate 17 /min [facility] 06-01-2023 21:00-0400 Respiratory rate 16 /min [facility] 06-01-2023 20:28-0400 Heart rate 37 /min [facility] 06-01-2023 19:42-0400 SaO2% (BldA) [Mass fraction] 92 % [facility] 06-01-2023 19:41-0400 Mean blood pressure 98 mm[Hg] [facility] 06-01-2023 16:31-0400 Mean blood pressure 133 mm[Hg] [facility] 06-01-2023 16:31-0400 Respiratory rate 20 /min [facility] 06-01-2023 10:04-0400 Blood Pressure Location [facility] 06-01-2023 10:04-0400 Heart rate 67 /min [facility] 06-01-2023 10:04-0400 Mean blood pressure 125 mm[Hg] [facility] 06-01-2023 00:00-0400 Body temperature 97.7 [degF] [facility] 06-01-2023 00:00-0400 Mean blood pressure 107 mm[Hg] [facility] 05-31-2023 18:32-0400 Blood Pressure Location [facility] 05-30-2023 17:47-0400 gluc 171 mg/dL [facility] 05-30-2023 12:32-0400 gluc 191 mg/dL [facility] 05-27-2023 10:58-0400 Heart rate 80 /min [facility] 05-27-2023 09:29-0400 Body temperature 98.06 [degF] [facility] 05-27-2023 08:15-0400 Respiratory rate 18 /min [facility] 05-27-2023 08:10-0400 Respiratory rate 17 /min [facility] 05-27-2023 06:00-0400 Body temperature 99.68 [degF] [facility] 05-26-2023 15:59-0400 Heart rate 76 /min [facility] 05-11-2023 11:12-0400 Hourly Rounding [facility] 05-11-2023 11:12-0400 Promise to Return [facility] 05-11-2023 10:16-0400 Hourly Rounding [facility] 05-11-2023 10:16-0400 Promise to Return [facility] 05-11-2023 09:30-0400 Hourly Rounding [facility] 05-11-2023 09:30-0400 Promise to Return [facility] 05-11-2023 08:23-0400 gluc 226 mg/dL [facility] 05-11-2023 08:22-0400 Heart rate 58 /min [facility] 05-11-2023 08:04-0400 Heart rate 66 /min [facility] 05-11-2023 08:04-0400 SaO2% (BldA) [Mass fraction] 96 % [facility] 05-11-2023 08:02-0400 Diastolic blood pressure 79 mm[Hg] [facility] 05-11-2023 08:02-0400 Mean blood pressure 117 mm[Hg] [facility] 05-11-2023 08:02-0400 Systolic blood pressure 192 mm[Hg] [facility] 05-11-2023 08:00-0400 Body temperature 98.06 [degF] [facility] 05-10-2023 23:00-0400 Heart rate 64 /min [facility] 05-10-2023 23:00-0400 Respiratory rate 16 /min [facility] 05-10-2023 20:40-0400 Heart rate 67 /min [facility] 05-10-2023 19:37-0400 Heart rate 70 /min [facility] 05-10-2023 19:37-0400 SaO2% (BldA) [Mass fraction] 93 % [facility] 05-10-2023 19:33-0400 Body temperature 97.52 [degF] [facility] 05-10-2023 19:32-0400 Blood Pressure Location [facility] 05-10-2023 19:32-0400 Mean blood pressure 75 mm[Hg] [facility] 05-10-2023 15:00-0400 Body temperature 98.24 [degF] [facility] 05-10-2023 15:00-0400 Heart rate 63 /min [facility] 05-10-2023 15:00-0400 Mean blood pressure 86 mm[Hg] [facility] 05-10-2023 15:00-0400 SaO2% (BldA) [Mass fraction] 94 % [facility] 05-10-2023 11:57-0400 gluc 314 mg/dL [facility] 05-10-2023 11:00-0400 Mean blood pressure 101 mm[Hg] [facility] 05-10-2023 11:00-0400 Respiratory rate 18 /min [facility] 05-10-2023 08:22-0400 gluc 249 mg/dL [facility] 05-10-2023 08:21-0400 Heart rate 71 /min [facility] 05-10-2023 08:00-0400 Body temperature 97.7 [degF] [facility] 05-10-2023 08:00-0400 Mean blood pressure 107 mm[Hg] [facility] 05-10-2023 04:19-0400 Mean blood pressure 114 mm[Hg] [facility] 05-10-2023 04:19-0400 Body temperature 98.06 [degF] [facility] 05-09-2023 15:00-0400 Body temperature 97.88 [degF] [facility] 05-09-2023 15:00-0400 Respiratory rate 15 /min [facility] 05-09-2023 14:50-0400 Blood Pressure Location [facility] 05-09-2023 14:50-0400 Respiratory rate 21 /min [facility] 05-09-2023 14:35-0400 Respiratory rate 20 /min [facility] 05-09-2023 14:04-0400 Body temperature 98.06 [degF] Alaa ALAHMAD [facility] 11-14-2022 02:39-0400 Body temperature 98.06 [degF] Kaylinn Dokken [facility] 11-14-2022 02:39-0400 Diastolic blood pressure 77 mm[Hg] Kaylinn Dokken [facility] 11-14-2022 02:39-0400 Heart rate 82 /min Kaylinn Dokken [facility] 11-14-2022 02:39-0400 Mean blood pressure 104 mm[Hg] Kaylinn Dokken [facility] 11-14-2022 02:39-0400 Respiratory rate 21 /min Kaylinn Dokken [facility] 11-14-2022 02:39-0400 SaO2% (BldA) [Mass fraction] 96 % Kaylinn Dokken [facility] 11-14-2022 02:39-0400 Systolic blood pressure 157 mm[Hg] Kaylinn Dokken [facility] 11-14-2022 02:04-0400 Diastolic blood pressure 84 mm[Hg] Kaylinn Dokken [facility] 11-14-2022 02:04-0400 Heart rate 79 /min Kaylinn Dokken [facility] 11-14-2022 02:04-0400 Mean blood pressure 111 mm[Hg] Kaylinn Dokken [facility] 11-14-2022 02:04-0400 SaO2% (BldA) [Mass fraction] 95 % Kaylinn Dokken [facility] 11-14-2022 02:04-0400 Systolic blood pressure 164 mm[Hg] Kaylinn Dokken [facility] 11-14-2022 01:30-0400 Diastolic blood pressure 96 mm[Hg] Kaylinn Dokken [facility] 11-14-2022 01:30-0400 Heart rate 83 /min Kaylinn Dokken [facility] 11-14-2022 01:30-0400 Mean blood pressure 122 mm[Hg] Kaylinn Dokken [facility] 11-14-2022 01:30-0400 Respiratory rate 18 /min Kaylinn Dokken [facility] 11-14-2022 01:30-0400 SaO2% (BldA) [Mass fraction] 96 % Kaylinn Dokken [facility] 11-14-2022 01:30-0400 Systolic blood pressure 174 mm[Hg] Kaylinn Dokken [facility] 11-14-2022 01:08-0400 Body temperature 99.68 [degF] Kaylinn Dokken [facility] 11-13-2022 23:38-0400 gluc 223 mg/dL Kaylinn Dokken [facility] 11-13-2022 23:38-0400 gluc Kaylinn Dokken [facility] 11-13-2022 23:29-0400 Body temperature 98.24 [degF] Kaylinn Dokken [facility] 11-13-2022 23:29-0400 Heart rate 76 /min Kaylinn Dokken [facility] 11-13-2022 23:29-0400 Respiratory rate 18 /min Blaire Dokken [facility] 11-13-2022 23:14-0400 Heart rate 83 /min Makenzien Dokken [facility] 07-29-2022 09:54-0500 Body height 157.48 cm Albertina R Kuns Work Phone: [facility] 250 DO Work Phone: 07-29-2022 09:54-0500 Body mass index (BMI) [Ratio] 35.85 kg/m2 Albertina R Kuns Work Phone: [facility] 250 DO Work Phone: 07-29-2022 09:54-0500 Body surface area Derived from formula 1.9 m2 Albertina R Kuns Work Phone: [facility] [address] DO Work Phone: 07-29-2022 09:54-0500 Body weight 88.91 kg Albertina R Kuns Work Phone: [facility] [address] DO Work Phone: 07-29-2022 09:54-0500 Diastolic blood pressure 94 mm[Hg] Albertina R Kuns Work Phone: [facility] [facility] DO Work Phone: 07-29-2022 09:54-0500 Heart rate 80 /min Albertina R Kuns Work Phone: [facility] 250 DO Work Phone: 07-29-2022 09:54-0500 Systolic blood pressure 138 mm[Hg] Albertina R Kuns Work Phone: [facility] 250 DO Work Phone: 07-13-2022 13:08-0500 Blood Pressure Location Wendy Lue [facility] 07-13-2022 13:08-0500 Diastolic blood pressure 80 mm[Hg] Wendy Lue [facility] 07-13-2022 13:08-0500 Heart rate 65 /min Wendy Lue [facility] 07-13-2022 13:08-0500 Respiratory rate 16 /min Wendy Lue [facility] 07-13-2022 13:08-0500 Systolic blood pressure 122 mm[Hg] Wendy Lue [facility] 06-19-2022 09:11-0400 gluc 176 mg/dL Orestes COOK [facility] 06-19-2022 09:10-0400 Diastolic blood pressure 85 mm[Hg] Orestes COOK [facility] 06-19-2022 09:10-0400 Heart rate 81 /min Orestes COOK [facility] 06-19-2022 09:10-0400 Systolic blood pressure 163 mm[Hg] Orestes COOK [facility] 06-19-2022 09:00-0400 Hourly Rounding Orestes COOK [facility] 06-19-2022 09:00-0400 Promise to Return Orestes COOK [facility] 06-19-2022 08:00-0400 Hourly Rounding Orestes COOK [facility] 06-19-2022 08:00-0400 Promise to Return Orestes JACQUES [facility] 06-19-2022 07:44-0400 Blood Pressure Location Orestes JACQUES [facility] 06-19-2022 07:44-0400 BP/Pulse Patient Position Orestes JACQUES [facility] 06-19-2022 07:44-0400 Diastolic blood pressure 85 mm[Hg] Orestes JACQUES [facility] 06-19-2022 07:44-0400 Heart rate 71 /min Orestes JACQUES [facility] 06-19-2022 07:44-0400 Mean blood pressure 111 mm[Hg] Orestes JACQUES [facility] 06-19-2022 07:44-0400 Respiratory rate 18 /min Orestes JACQUES [facility] 06-19-2022 07:44-0400 SaO2% (BldA) [Mass fraction] 93 % Orestes JACQUES [facility] 06-19-2022 07:44-0400 Systolic blood pressure 163 mm[Hg] Orestes JACQUES [facility] 06-19-2022 07:00-0400 Body temperature 98.24 [degF] Orestes JACQUES [facility] 06-19-2022 07:00-0400 Hourly Rounding Orestes JACQUES [facility] 06-19-2022 07:00-0400 Promise to Return Orestes JACQUES [facility] 06-19-2022 01:25-0400 Blood Pressure Location Orestes JACQUES [facility] 06-19-2022 01:25-0400 Body temperature 98.42 [degF] Orestes JACQUES [facility] 06-19-2022 01:25-0400 BP/Pulse Patient Position Orestes JACQUES [facility] 06-19-2022 01:25-0400 Diastolic blood pressure 77 mm[Hg] Orestes JACQUES [facility] 06-19-2022 01:25-0400 Heart rate 69 /min Orestes JACQUES [facility] 06-19-2022 01:25-0400 Mean blood pressure 100 mm[Hg] Orestes JACQUES [facility] 06-19-2022 01:25-0400 Respiratory rate 16 /min Orestes JACQUES [facility] 06-19-2022 01:25-0400 SaO2% (BldA) [Mass fraction] 94 % Orestes JACQUES [facility] 06-19-2022 01:25-0400 Systolic blood pressure 145 mm[Hg] Orestes JACQUES [facility] 06-18-2022 21:35-0400 Heart rate 77 /min Orestes JACQUES [facility] 06-18-2022 21:34-0400 gluc 192 mg/dL Orestes JACQUES [facility] 06-18-2022 19:35-0400 Blood Pressure Location Orestes JACQUES [facility] 06-18-2022 19:35-0400 Body temperature 98.06 [degF] Orestes JACQUES [facility] 06-18-2022 19:35-0400 BP/Pulse Patient Position Orestes JACQUES [facility] 06-18-2022 19:35-0400 Heart rate 73 /min Orestes JACQUES [facility] 06-18-2022 19:35-0400 Mean blood pressure 115 mm[Hg] Orestes JACQUES [facility] 06-18-2022 19:35-0400 Respiratory rate 16 /min Orestes JACQUES [facility] 06-18-2022 19:35-0400 SaO2% (BldA) [Mass fraction] 93 % Orestes JACQUES [facility] 06-18-2022 16:07-0400 Mean blood pressure 121 mm[Hg] Orestes JACQUES [facility] 06-18-2022 13:10-0400 gluc 234 mg/dL Orestes JACQUES [facility] 06-18-2022 08:09-0400 Heart rate 71 /min Orestes [email or web address] [facility] 06-17-2022 20:17-0400 Heart rate 89 /min Orestes [email or web address] [facility] 06-17-2022 19:45-0400 Body temperature 98.42 [degF] Orestes JACQUES [facility] 06-17-2022 19:45-0400 Mean blood pressure 92 mm[Hg] Orestes COOK [facility] 06-17-2022 19:45-0400 Respiratory rate 21 /min Orestes [email or web address] [facility] 06-17-2022 19:30-0400 Mean blood pressure 103 mm[Hg] Orestes JACQUES [facility] 06-17-2022 19:30-0400 Respiratory rate 20 /min Orestes [email or web address] [facility] 06-17-2022 19:25-0400 Respiratory rate 23 /min Orestes JACQUES [facility] 06-17-2022 19:18-0400 Body temperature 97.16 [degF] Orestes JACQUES [facility] 06-17-2022 13:50-0400 Heart rate 74 /min Orestes JACQUES [facility] 06-17-2022 13:35-0400 Body temperature 98.6 [degF] Orestes JACQUES [facility] 06-17-2022 13:35-0400 Heart rate 71 /min Orestes JACQUES [facility] 02-02-2022 11:31-0400 Diastolic blood pressure 87 mm[Hg] Feroz Cotton [facility] 02-02-2022 11:31-0400 Mean blood pressure 114 mm[Hg] Feroz Cotton [facility] 02-02-2022 11:31-0400 Systolic blood pressure 167 mm[Hg] Feroz Hydean [facility] 02-02-2022 11:29-0400 Blood Pressure Location Feroz Cotton [facility] 02-02-2022 11:29-0400 Diastolic blood pressure 100 mm[Hg] Feroz Hydean [facility] 02-02-2022 11:29-0400 Heart rate 76 /min Feroz Hydean [facility] 02-02-2022 11:29-0400 Respiratory rate 16 /min Feroz Hydean [facility] 02-02-2022 11:29-0400 SaO2% (BldA) [Mass fraction] 98 % Feroz Cotton [facility] 02-02-2022 11:29-0400 Systolic blood pressure 171 mm[Hg] Mohamed Yury [facility] 11-26-2021 11:06-0400 Blood Pressure Location Wendy Lue [facility] 11-26-2021 11:06-0400 Diastolic blood pressure 78 mm[Hg] Wendy Lue [facility] 11-26-2021 11:06-0400 Heart rate 68 /min Wendy Lue [facility] 11-26-2021 11:06-0400 Respiratory rate 16 /min Wendy Lue [facility] 11-26-2021 11:06-0400 Systolic blood pressure 132 mm[Hg] Wendy Lue [facility] 11-24-2021 08:56-0400 Diastolic blood pressure 76 mm[Hg] Mohbala Yury [facility] 11-24-2021 08:56-0400 Mean blood pressure 107 mm[Hg] Mohamed Yury [facility] 11-24-2021 08:56-0400 Systolic blood pressure 169 mm[Hg] Mohamed Yury [facility] 11-24-2021 08:54-0400 Blood Pressure Location Mohamed Yury [facility] 11-24-2021 08:54-0400 Diastolic blood pressure 99 mm[Hg] Mohamed Yury [facility] 11-24-2021 08:54-0400 Heart rate 74 /min Feroz Cotton [facility] 11-24-2021 08:54-0400 Respiratory rate 16 /min Feroz Cotton [facility] 11-24-2021 08:54-0400 SaO2% (BldA) [Mass fraction] 98 % Feroz Cotton [facility] 11-24-2021 08:54-0400 Systolic blood pressure 184 mm[Hg] Feroz Cotton [facility] 07-22-2021 12:44-0500 Body height 157.48 cm Albertina [employer] Work Phone: [facility] [employer] 600 DO Work Phone: 07-22-2021 12:44-0500 Body mass index (BMI) [Ratio] 34.39 kg/m2 Albertina [employer] Work Phone: [facility] [employer] 600 DO Work Phone: 07-22-2021 12:44-0500 Body surface area Derived from formula 1.86 m2 Albertina [employer] Work Phone: [facility] [employer] 600 DO Work Phone: 07-22-2021 12:44-0500 Body weight 85.28 kg Albertina R Crews Work Phone: [facility] [employer] 600 DO Work Phone: 07-22-2021 12:44-0500 Diastolic blood pressure 84 mm[Hg] Albertina R Crews Work Phone: [facility] [employer] 600 DO Work Phone: 07-22-2021 12:44-0500 Heart rate 80 /min Albertina R Kuns Work Phone: [facility] [employer] 600 DO Work Phone: 07-22-2021 12:44-0500 Systolic blood pressure 124 mm[Hg] Albertina R Kuns Work Phone: [facility] [employer] 600 DO Work Phone: 07-10-2021 14:08-0500 Body height 157.48 cm Albertina R Kuns Work Phone: [facility] [employer] 600 DO Work Phone: 07-10-2021 14:08-0500 Body mass index (BMI) [Ratio] 33.84 kg/m2 Albertina R Kuns Work Phone: [facility] [employer] 600 DO Work Phone: 07-10-2021 14:08-0500 Body surface area Derived from formula 1.85 m2 Albertina R Kuns Work Phone: [facility] [employer] 600 DO Work Phone: 07-10-2021 14:08-0500 Body weight 83.92 kg Albertina R Kuns Work Phone: [facility] [employer] 600 DO Work Phone: 07-10-2021 14:08-0500 Diastolic blood pressure 80 mm[Hg] Albertina R Kuns Work Phone: [facility] [employer] 600 DO Work Phone: 07-10-2021 14:08-0500 Heart rate 50 /min Albertina R Kuns Work Phone: [facility] [employer] 600 DO Work Phone: 07-10-2021 14:08-0500 Systolic blood pressure 126 mm[Hg] Albertina R Kuns Work Phone: [facility] [place] [facility] DO Work Phone: Functional Status Date Assessment Result Facility 02-19-2024 Functional Status N/A [facility] 02-19-2024 Functional Status [facility] 07-29-2023 Functional Status No [facility] 05-27-2023 Functional Status No [facility] 05-26-2023 Functional Status [facility] 05-25-2023 Functional Status N/A [facility] 05-09-2023 Functional Status N/A [facility] 05-09-2023 Functional Status [facility] 11-13-2022 Functional Status N/A [facility] 10-29-2022 Functional Status N/A [facility] 07-13-2022 Functional Status N/A [facility] 07-02-2022 Functional Status N/A [facility] 06-17-2022 Functional Status No [facility] 06-17-2022 Functional Status [facility] Clinical Notes 12-28-2009 to 02-23-2024 Note Date & Type Note Facility 02-23-2024 Evaluation + Plan note Extrac [email or web address] from: Title:Discharge Note Author:Jhonny Barrett DO Date:02/23/24 stable Discharge To, Anticipated II - Home with responsible caregiver Discharge Diet(s): Calorie Controlled- 1800 Calorie Diet (02/23/24 11:13:00) Prescriptions Cipro 500 mg Tab, 500 mg= 1 tab(s), Oral, BID Klor-Con/EF 25 mEq oral tablet, effervescent, 25 mEq= 1 tab(s), Oral, Daily, 10 refills lisinopril 5 mg Tab, 5 mg= 1 tab(s), Oral, BID Liver panel, 0 meclizine 12.5 mg Tab, 12.5 mg= 1 tab(s), Oral, TID, PRN Metoprolol tartrate 50 mg Tab, 50 mg= 1 tab(s), Oral, BID NIFEdipine 30 mg ER Tab, 60 mg= 2 tab(s), Oral, Daily, 5 refills NS Flush 10 mL, See Instructions Vesicare 10 mg Tab, 10 mg= 1 tab(s), Oral, Daily Home atorvastatin 40 mg Tab, 40 mg= 1 tab(s), Oral, Daily Basaglar KwikPen 100 units/mL subcutaneous solution, 40 unit(s), SubCutaneous, qAM, Not taking metformin 500 mg Tab, 500 mg= 1 tab(s), Oral, BID Plavix 75 mg Tab, See Instructions NEW: 1. Nifedipine 60 mg 1 p.o. daily With When Contact Information Call Urology office for follow-up Additional Instructions: ALBERTINA ARNDT [address] [place] [id number] (1) Additional Instructions: Doctor's office will call patient for hosptial follow up appointment. Diet - Basic Carbohydrate Counting (Custom) Extracted from: Title:Progress/SOAP Note Author:Diamond Barrett DO Date:02/22/24 74-year-old female admitted for complicated UTI along with acute kidney superimposed on chronic kidney disease as well as right-sided hydronephrosis with ureteral calculus obstruction status post cystoscopy with bilateral retrograde pyelogram and placement of right ureteral stent and extraction of calculus fragment February 20, 2024. She was also noted to be significantly hyperglycemic. Patient's comorbidities include history of nephrolithiasis. 1. Complicated urinary tract infection (N39.0: Urinary tract infection, site not specified) Day 4 of IV Zosyn Urine culture no growth to date white count down to 8.9 this morning 2. Acute kidney injury superimposed on chronic kidney disease (N17.9: Acute kidney failure, unspecified) Serum creatinine 1.5 compared to 1.7 yesterday -Nutrition Status post placement by Dr. Dent 02/20/2020 3. Hydronephrosis with renal and ureteral calculus obstruction (N13.2: Hydronephrosis with renal and ureteral calculous obstruction) Status post bilateral retrograde pyelogram and placement of right ureteral stent and extraction of calculus 02/20/2024 4. Hyperglycemia due to diabetes mellitus (E11.65: Type 2 diabetes mellitus with hyperglycemia) Serum glucose and Accu-Cheks between 203 100+ We did increase her basal Lantus to 18 units yesterday along with sliding scale coverage 5. Abdominal pain (R10.9: Unspecified abdominal pain) Secondary to obstructive uropathy; see #1 and #3 above 6. Nausea and vomiting (R11.2: Nausea with vomiting, unspecified) Antiemetics as needed tolerating p.o. 7. Hypertensive urgency (I16.0: Hypertensive urgency) Maintain metoprolol and nifedipine but will increase nifedipine to 60 mg daily 8. Elevated troponin (R77.8: Other specified abnormalities of plasma proteins) Stable 9. Coronary artery disease (I25.10: Atherosclerotic heart disease of [place] coronary artery without angina pectoris) History of coronary artery bypass grafting 3+ years ago at the [facility] 10. Thrombocytopenia (D69.6: Thrombocytopenia, unspecified) Stable 11. Hyperlipidemia (E78.5: Hyperlipidemia, unspecified) Maintain atorvastatin 12. Gallstones (K80.20: Calculus of gallbladder without cholecystitis without obstruction) Not an issue currently 13. Obesity (E66.9: Obesity, unspecified) Secondary to multiple comorbidities; therapeutic lifestyle modifications recommended 14. Encounter for deep vein thrombosis (DVT) prophylaxis (Z29.9: Encounter for prophylactic measures, unspecified) SCDs only Orders: Basic Metabolic Panel CBC w/ Auto Diff eGFR PLAN: 1. Day 4 IV Zosyn; cultures no growth to date 2. Will increase nifedipine to 60 mg daily 3. Increase Lantus to 24 units and maintain sliding scale insulin coverage 4. Lab for a.m. 5. Maintain metoprolol as well plus atorvastatin 6. DVT prophylaxis with SCDs 7. Full CODE STATUS Extracted from: Title:Progress/SOAP Note Author:Diamond Barrett DO Date:02/21/24 74-year-old female admitted for complicated UTI along with acute kidney superimposed on chronic kidney disease as well as right-sided hydronephrosis with ureteral calculus obstruction status post cystoscopy with bilateral retrograde pyelogram and placement of right ureteral stent and extraction of calculus fragment February 20, 2024. She was also noted to be significantly hyperglycemic. Patient's comorbidities include history of nephrolithiasis 1. Complicated urinary tract infection (N39.0: Urinary tract infection, site not specified) Urine culture negative She was given gentamicin in the ED but switched to Zosyn on the medical service given her acute kidney injury superimposed on chronic kidney disease Did have a leukocytosis; will trend 2. Acute kidney injury superimposed on chronic kidney disease (N17.9: Acute kidney failure, unspecified) Serum creatinine did drop to 1.7 today compared to 2.1 on admission Continue fluid hydration Status post stent placement by Dr. Dent yesterday the so we hope to see improvement Repeat lab in a.m. 3. Hydronephrosis with renal and ureteral calculus obstruction (N13.2: Hydronephrosis with renal and ureteral calculous obstruction) Status post bilateral retrograde pyelogram with placement of right ureteral stent and extraction of calculus 4. Hyperglycemia due to diabetes mellitus (E11.65: Type 2 diabetes mellitus with hyperglycemia) Still elevated blood sugars and serum glucose Will increase basal Lantus from 12 units to 18 and continue sliding scale coverage as well Ordered: insulin glargine, 18 unit(s), Injection-Insulin, SubCutaneous, Bedtime, Routine, Start date 02/21/24 21:00:00 EDT, 02/21/24 12:06:00 EDT 5. Abdominal pain (R10.9: Unspecified abdominal pain) Secondary to her obstructive uropathy See 1 and 3 above 6. Nausea and vomiting (R11.2: Nausea with vomiting, unspecified) Antiemetics as needed Tolerating p.o. 7. Hypertensive urgency (I16.0: Hypertensive urgency) Blood pressures are still elevated especially systolically She is on metoprolol Will add nifedipine 8. Elevated troponin (R77.8: Other specified abnormalities of plasma proteins) Stable 9. Coronary artery disease (I25.10: Atherosclerotic heart disease of [place] coronary artery without angina pectoris) History of coronary artery bypass grafting 3 to 6 years ago at the [facility] No symptomatology 10. Thrombocytopenia (D69.6: Thrombocytopenia, unspecified) Stable 11. Hyperlipidemia (E78.5: Hyperlipidemia, unspecified) On atorvastatin 12. Gallstones (K80.20: Calculus of gallbladder without cholecystitis without obstruction) Not an issue at this time 13. Obesity (E66.9: Obesity, unspecified) Secondary to multiple comorbidities Therapeutic lifestyle modifications recommended 14. Encounter for deep vein thrombosis (DVT) prophylaxis (Z29.9: Encounter for prophylactic measures, unspecified) Maintain SCDs Orders: NIFEdipine, 30 mg = 1 tab(s), Tab-ER, Oral, Daily, Routine, Start date 02/22/24 9:00:00 EDT, 02/21/24 12:08:00 EDT Basic Metabolic Panel Basic Metabolic Panel CBC w/ Auto Diff eGFR Extra Lav Tube PLAN: - As outlined above - Will add nifedipine 30 mg daily for better blood pressure control - Increase Lantus from 12 units to 18 units and continue to monitor Accu-Cheks - Labs for a.m. Full CODE STATUS Extracted from: Title:Urology Consult Note Author:Yue DENT MD Date:02/20/24 Impression and Plan Impression: #1. This lady seems to have right-sided ureteral calculi causing pain, nausea vomiting obstruction and GIOVANNY. She needs to get stented to decompress her right kidney. 2. She has a history of stones. 3. A vague left flank pain. Plan: #1. She has received Rocephin and gentamicin and has been on Zosyn overnight. This should continue. 2. She needs to get cystoscopy, bilateral retrograde pyelogram, right stent and possible left stent placement. This is getting added onto the operating room today. After she cools down for couple weeks we will then have to bring her back and undergo definitive ureteroscopic laser stone manipulation. Over 30 minutes of clinical time was spent talking with the ER doctor, the nursing staff and the patient. Also her CT scan and chart were reviewed in great detail. Thank you for letting me take part in her care. Extracted from: Title:Admission H & P Author:Glynn ALARCON DO Date:02/19/24 1. Complicated urinary tract infection (N39.0: Urinary tract infection, site not specified) Patient was given gentamicin 120 mg in the emergency department as well as ceftriaxone. Per review of the up-to-date there was suggested with a complicated urinary tract infection consideration of 5 to 7 mg/kg. With renal dysfunction will order Zosyn for a creatinine clearance calculated 32, will order 2.25 g every 6 hours awaiting for blood cultures while waiting for urine cultures. Note when patient was hospitalized in April she did have fungemia with Anastacia both in the urine and the blood strain. UA does demonstrate some budding yeast however not nearly to the degree that was present during hospitalization in April. Patient does not have a clinical response ?coverage for fungi with anticipated extraction of stone versus placement of stent ? Change coverage. The patient did have an elevated white cell count and elevated respiratory rate do not feel that this is secondary to sepsis she is not spiking temps she does not appear to be distressed and she was having significant pain not tachypneic at the time of my evaluation. 2. Acute kidney injury superimposed on chronic kidney disease (N17.9: Acute kidney failure, unspecified) Secondary to below. Note patient's baseline creatinine appears to be 1.3. Though patient has not prerenal with vomiting cannot rule out a role of intravascular depletion as well. Will hold lisinopril, avoid nephrotoxins, dose antibiotics for renal function will repeat labs in the a.m. continue to aggressively hydrate. Despite history of coronary artery disease and Q waves in the anteroseptal leads these were also noted on an EKG from 2016 and an echocardiogram from 10 June 2021 patient did have ejection fraction of 55 to 60%. Note patient denies history congestive heart failure will monitor however 3. Hydronephrosis with renal and ureteral calculus obstruction (N13.2: Hydronephrosis with renal and ureteral calculous obstruction) As needed analgesic therapy avoid NSAIDs. Dr. Dent has been contacted it is anticipated that patient will be taken to the OR in the emergency department therefore will be n.p.o. after midnight Ordered: NPO Diet 4. Hyperglycemia due to diabetes mellitus (E11.65: Type 2 diabetes mellitus with hyperglycemia) Patient admitted to history of noncompliance not following her blood sugars closely. She states she has not taken the Lantus reconciliation states 40 units at least a few months. Note patient had an elevated glucose forted 60 when admitted in early April treated with Lantus and Humalog sliding scale effectively. Patient is not in DKA. Will check Accu-Chek prior to giving a small amount of clear liquids this evening before made n.p.o. then convert Accu-Cheks to every 6 hours starting at midnight, will order a lower dose of Lantus with renal insufficiency and patient being n.p.o. I suspicion is low should become hypoglycemic based on history above Ordered: insulin glargine, 12 unit(s), Injection-Insulin, SubCutaneous, Bedtime, Routine, Start date 02/19/24 21:49:00 EDT, 02/19/24 21:49:00 EDT Communication Order Physician to Nursing 5. Abdominal pain (R10.9: Unspecified abdominal pain) Described as being right upper quadrant. She had negative Dutta sign. I believe that it is an atypical manifestation of her obstructive uropathy. Morphine sulfate lower dose as needed will avoid NSAIDs with above 6. Nausea and vomiting (R11.2: Nausea with vomiting, unspecified) Patient states she is no longer nauseated. She does have hypoactive bowel sounds. Will limit oral intake this evening she will be made n.p.o. after midnight in preparation for operative intervention. Continue as needed Zofran 7. Hypertensive urgency (I16.0: Hypertensive urgency) Patient did at 1 time have an elevated blood pressure 236/106. She was treated with IV hydralazine. Give her evening dose of antihypertensives, make IV metoprolol available with parameters. I suspect this was partially elevated in response to catecholamine/pain response. Will be holding lisinopril to her acute kidney injury resolved 8. Elevated troponin (R77.8: Other specified abnormalities of plasma proteins) A flat response I do believe that it was due to enzyme leak from above. Was not impressed with any acute pages on the EKG though there were nonspecific ST-T's in the lateral leads she denies any chest pain and the enzyme rise has been flat. Will hold her Plavix in anticipation of above 9. Coronary artery disease (I25.10: Atherosclerotic heart disease of [place] coronary artery without angina pectoris) Patient states she had coronary artery bypass grafting x 3 6 years ago at the [facility] she denies any recent dyspnea on exertion or chest pain 10. Thrombocytopenia (D69.6: Thrombocytopenia, unspecified) Suspect secondary to above we will monitor 11. Hyperlipidemia (E78.5: Hyperlipidemia, unspecified) Continue atorvastatin 12. Gallstones (K80.20: Calculus of gallbladder without cholecystitis without obstruction) Gallbladder was not dilated did not look suspicious for infection or obstruction despite her right upper quadrant pain she had negative Dutta sign 13. Obesity (E66.9: Obesity, unspecified) With multiple comorbidities patient would benefit from weight loss 14. Encounter for deep vein thrombosis (DVT) prophylaxis (Z29.9: Encounter for prophylactic measures, unspecified) We use SCDs if patient were to have a prolonged period of inactivity will reweigh the risk versus benefits of subcutaneous Lovenox renal dysfunction thrombocytopenia which is new for her and uncertain ability of platelet count. Orders: acetaminophen, 650 mg = 2 tab(s), Tab, Oral, q6hr PRN Pain, Routine, Start date 02/19/24 21:44:00 EDT, 02/19/24 21:44:00 EDT atorvastatin, 40 mg = 1 tab(s), Tab, Oral, Daily, Routine, Start date 02/20/24 9:00:00 EDT, 02/19/24 21:42:00 EDT glucose, 50 mL, Soln-IV, IV Push, Once PRN Blood glucose, Routine, Start date 02/19/24 21:47:00 EDT insulin lispro, 0-10 Unit(s), Injection-Insulin, SubCutaneous, QIDACHS, Routine, Start date 02/20/24 7:30:00 EDT metoprolol, 50 mg = 1 tab(s), Tab, Oral, BID, Routine, Start date 02/19/24 21:43:00 EDT, 02/19/24 21:43:00 EDT morphine, 2 mg = 1 mL, Injection, IV Push, q4hr PRN Pain for 5 day(s), Stop date 02/24/24 21:39:00 EDT, Routine, Start date 02/19/24 21:40:00 EDT, 02/19/24 21:40:00 EDT piperacillin-tazobactam + Sodium Chloride 0.9% intravenous solution 50 mL, 2.25 gram = 1 EA, Injection, IV Piggyback, q6hr, Routine, Start date 02/20/24 0:00:00 EDT, 100 mL/hr, Infuse over 30 minute(s) Sodium Chloride 0.9% intravenous solution 1,000 mL, 1,000 mL, IV, 150 mL/hr, Routine, Start date 02/19/24 21:44:00 EDT, 6.7 hour(s), Total volume (mL): 1,000, 84.3 kg, 1.94, m2 Basic Metabolic Panel Bedside Commode Below the Knee Intermittent Pneumatic Compression Device Cardiac Monitoring CBC w/ Auto Diff Clear Liquid Diet Hypoglycemia Protocol Responsive Patient Hypoglycemia Protocol Unresponsive Patient Notify Provider Vital Signs Notify Provider Vital Signs Place in Status Resuscitation Status - Full Routine Capillary Glucose POC Vital Signs Weight Patient is admitted as a general inpatient with the anticipation she will require greater than 2 midnight stay Extracted from: Title:ED Note Author:Cj CASTANEDA, Luis Peters te:02/19/24 1. GIOVANNY (acute kidney injury) (N17.9: Acute kidney failure, unspecified) 2. Nausea (R11.0: Nausea) 3. Abdominal pain (R10.9: Unspecified abdominal pain) 4. Hyperglycemia (R73.9: Hyperglycemia, unspecified) 5. UTI (urinary tract infection) (N39.0: Urinary tract infection, site not specified) 6. Hypertensive crisis (I16.9: Hypertensive crisis, unspecified) 7. Kidney stone on right side (N20.0: Calculus of kidney) 8. Hydronephrosis, right (N13.30: Unspecified hydronephrosis) Orders: ceftriaxone + Sodium Chloride 0.9% intravenous solution 50 mL, 1,000 mg = 1 EA, IV Piggyback, Once, Stop date 02/19/24 17:54:00 EDT, STAT, Start date 02/19/24 17:54:00 EDT, 100 mL/hr, Infuse over 30 minute(s), 02/19/24 17:54:00 EDT gentamicin + Sodium Chloride 0.9% intravenous solution 50 mL, 120 mg = 3 mL, Injection, IV Piggyback, Once, Stop date 02/19/24 19:13:00 EDT, STAT, Start date 02/19/24 19:13:00 EDT, 106 mL/hr, Infuse over 30 minute(s) hydrALAZINE, 10 mg = 0.5 mL, Injection, IV Push, Once, Stop date 02/19/24 17:22:00 EDT, STAT, Start date 02/19/24 17:22:00 EDT, 02/19/24 17:22:00 EDT metoclopramide, 10 mg = 2 mL, Injection, IV Push, Once, Stop date 02/19/24 17:34:00 EDT, STAT, Start date 02/19/24 17:34:00 EDT, 02/19/24 17:34:00 EDT ondansetron, 4 mg = 2 mL, Injection, IV Push, Once, Stop date 02/19/24 13:59:00 EDT, STAT, Start date 02/19/24 13:59:00 EDT, 02/19/24 13:59:00 EDT ondansetron, 4 mg = 2 mL, Injection, IV Push, Once, Stop date 02/19/24 15:10:00 EDT, STAT, Start date 02/19/24 15:10:00 EDT, 02/19/24 15:10:00 EDT Sodium Chloride 0.9% intravenous solution, 1,000 mL, Soln-IV, IV, Once, Stop date 02/19/24 13:59:00 EDT, STAT, Start date 02/19/24 13:59:00 EDT, Infuse over 61, minute(s) Sodium Chloride 0.9% intravenous solution, 500 mL, IV, Stop date 02/19/24 19:03:00 EDT, Start date 02/19/24 19:03:00 EDT Sodium Chloride 0.9% intravenous solution 250 mL, 250 mL, IV, 250 mL/hr, STAT, Start date 02/19/24 15:31:00 EDT, 1 hour(s), Total volume (mL): 250, 84.3 kg, 1.94, m2 Basic Metabolic Panel Beta-hydroxybutyrate Blood Culture Charcoal Blood Culture Charcoal Capillary Glucose POC CBC w/ Auto Diff CT Abdomen/Pelvis w/o Contrast ECG 12 Lead Adult eGFR Extra SST Tube Hepatic Function Panel Lactic Acid Lactic Acid Lipase Level Magnesium Level NPO Diet PT & PTT Routine Capillary Glucose POC Troponin 0 Hr. Troponin 1 Hr. UA with Cult Rflx Urine Culture XR Chest 2 Views Diagnostic Tests Pending * Calculi Analysis Urinary 02/20/24 Future Scheduled Tests Radiology* CTA Abdomen 01/24/24 [facility]06-26-2024 NoteAdmission and Discharge Information Admit Date/Time:02/19/2024 19:31 Admitting Physician - Glynn ALARCON DO Consulting Physician - Glynn DENT MD Admitting Diagnoses: Discharge Order Date Discharge Patient - Ordered -- 02/23/24 11:16:00 EDT, to home Discharge Diagnoses 1. Complicated urinary tract infection, 02/19/2024 2. Acute kidney injury superimposed on chronic kidney disease, 02/19/2024 3. Hydronephrosis with renal and ureteral calculus obstruction, 02/19/2024 4. Hyperglycemia due to diabetes mellitus, 02/19/2024 5. Abdominal pain, 02/19/2024 6. Nausea and vomiting, 02/19/2024 7. Hypertensive urgency, 02/19/2024 8. Elevated troponin, 02/19/2024 9. Coronary artery disease, 02/19/2024 10. Thrombocytopenia, 02/19/2024 11. Hyperlipidemia, 02/19/2024 12. Gallstones, 02/19/2024 13. Obesity, 02/19/2024 14. Encounter for deep vein thrombosis (DVT) prophylaxis, 02/19/2024 Hyperglycemia, 02/19/2024 Nausea, 02/19/2024 Polydipsia, 02/19/2024 Procedure History Cystoscopy (05/27/2023), Cystoscopy (06/17/2022), Cystoscopic removal of ureteric stent (10/27/2021), Coil embolization of portal-systemic shunt (10/22/2021), Fluoroscopic angiography of splenic artery with contrast (10/22/2021), Cystoscopic laser lithotripsy of ureteric calculus (10/21/2021), Retrograde cystogram and replacement of ureteric stent using fluoroscopic guidance (10/01/2021), Appendectomy, CABG (Coronary artery bypass grafting) planned, section, Cystoscopy. Hospital Course Significant Findings Please refer to history and physical for details of admission. Patient presented to the emergency room February 18 because of pain in her abdomen in the right upper quadrant. The pain may have been going on for about 3 days prior to presentation and is colicky in nature. When she came to the ER was an 8 out of 10 and there is no relation to food or moving her bowels. Blood when she has a bowel movement and no sick contacts. She does have some dysuria no frequency or blood in her urine. In the emergency room workup shows obstructive uropathy on the right and she also had an elevated blood glucose. Dr. Dent was notified and gave the patient 120 mg of gentamicin within a switch to ceftriaxone. She is admitted to the medical service and she did receive IV flu ids. In the medical service patient is admitted for complicated UTI and acute kidney receivers and chronic kidney disease as well as hydronephrosis on the right related ureteral calculus obstruction. She had hyperglycemia due to her diabetes. Prediabetes she was given aggressive fluid hydration and sliding scale insulin. Her hyperglycemia did improve after I adjusted her basal Lantus along with a sliding scale insulin. For the hydronephrosis on the right urology saw the patient and performed a cystoscopy with bilateral retrograde pyelogram and placement of right ureteral stent with extraction of calculus fragments on the . She was maintained on the ceftriaxone and maintained on fluid hydration. Cultures are no growth to date. She will be discharged home today and she will follow-up with urology for the stent in her PCP as scheduled. We did have issues with her blood pressure so I added nifedipine for better control. Procedures and Treatment Provided 1. CT of the abdomen and pelvis without contrast 2. Urology consultation 3. Status post cystoscopy, bilateral retrograde pyelogram and placement of right ureteral stent andextraction of calculus fragment 02/20/2024 Services Consulted Consult to Urology - Ordered -- 02/19/24 21:54:00 EDT, right obstructive uropathy,sec to ureterolithiasis, Consult and Co-manage Physical Exam Vitals & Measurements T: 36.6 ?C(Axillary) TMIN: 36.3 ?C(Oral) TMAX: 36.9 ?C(Oral) HR: 61(Monitored) RR: 16 BP: 179/73 SpO2: 94% WT: 91.9 kg Constitutional: Awake and alert; oriented x 3 with no apparent distress or respiratory distress Head/neck: Neck supple with no palpable lymphadenopathy, bruits or masses; trachea midline Chest/lungs: Clear to auscultation bilaterally no wheezes or rhonchi noted bilaterally Cardiovascular: Regular rate and rhythm; normal S1-S2 with no murmur; no pitting edema and 2+ pulses bilaterally Gastrointestinal: Soft, nontender, nondistended, positive bowel sounds; obese Neurological: Nonfocal; cranial nerves II through XII appear intact Psychological: Pleasant affect Tests Performed Calculi Analysis Urinary -- Results Pending -- Chest AP/Lat CT Abdomen/Pelvis w/o Contrast XR Urography Retrograde Bilateral Please visit your patient portal for your results or contact your primary care physician. Discharge Plan Patient Discharge Condition stable Discharge Disposition Discharge To, Anticipated II - Home with responsible caregiver Discharge Diet Discharge Diet(s): Calorie Controlled- 1800 Calorie Diet (02/23/24 11:13:00) Discharge Medication List Prescriptions Cipro 500 mg Tab, 500 mg= 1 tab(s), Oral, BID Klor-C (more content not included)...[facility]Result Comment: Electronically Signed By: Jhonny Barrett DO.hector\Date and Time Signed: 02/23/24 11:39 [id number] Hospital Discharge instructions Patient Education 02/22/2024 08:54:40 Diet - Basic Carbohydrate Counting (Custom) Carbohydrate Counting for People with Diabetes Why Is Carbohydrate Counting Important? Counting carbohydrate servings may help you to control your blood glucose level so that you feel better. The balance between the carbohydrates you eat and insulin determines what your blood glucose level will be after eating. Carbohydrate counting can also help you plan your meals. Which Foods Have Carbohydrates? Foods with carbohydrates include: ? ?reads, crackers, and cereals - Pasta, rice, and grains - Starchy vegetables, such as potatoes, corn, and peas - Beans and legumes - Milk, soy milk, and yogurt - Fruits and fruit juices - Sweets, such as cakes, cookies, ice cream, jam, and jelly Carbohydrate Servings In diabetes meal planning, 1 serving of a food with carbohydrate has about 15 grams of carbohydrate: - Check serving sizes with measuring cups and spoons or a food scale. - Read the Nutrition Facts on food labels to find out how many grams of carbohydrate are in foods you eat. - The food lists in this handout show portions that have about 15 grams of carbohydrate. Food Lists for Carbohydrate Counting 1 serving = about 15 grams of carbohydrate Starches 1 slice bread (1 ounce) 1 tortilla (6-inch size) 1/4 large bagel (1 ounce) 2 taco shells (5-inch size) 1/2 hamburger or hot dog bun (1 ounce) 3/4 cup ezwcu-kl-jea cereal 1/2 cup cooked cereal 1 cup broth-based soup 4-6 small crackers ? cup pasta or rice (cooked) cup beans, peas, corn, sweet potatoes, winter squash, or mashed or boiled potatoes (cooked) 1/2 large baked potato (3 ounces) ounce pretzels, potato chips, or tortilla chips 3 cups popcorn (popped) Fruit 1 small fresh fruit (4 ounces) cup canned fruit cup dried fruit (2 tablespoons) 17 small grapes (3 ounces) 1 cup melon or berries 2 tablespoons raisins or other dired fruit cup fruit juice Milk 1 cup fat-free or reduced-fat milk 1 cup soy milk ? cup (6 ounces) fat-free yogurt sweetened with sugar-free sweetener Sweets and Desserts 2-inch square cake (unfrosted) 2 small cookies (? ounce) cup ice cream or frozen yogurt cup sherbet or sorbet 1 tablespoon syrup, jam, jelly, table sugar, or honey 2 tablespoons light syrup Other Foods - Count 1 cup raw vegetables or cup cooked nonstarchy vegetables as zero carbohydrate servings or free foods. If you eat 3 or more servings at one meal, count them as 1 carbohydrate serving. - Foods that have less than 20 calories in each serving also may be counted as zero carbohydrate servings or free foods. - Count 1 cup of casserole or other mixed foods as 2 carbohydrate servings. Meal Planning Tips A meal plan tells you how many carbohydrate servings to eat at your meals and snacks. For many adults, eating 3 to 5 servings of carbohydrate foods at each meal and 1 or 2 carbohydrate servings for each snack works well. In a healthy daily meal plan, most carbohydrates come from: 5 servings of fruits and vegetables 3 servings of whole grains 2 to 4 servings of milk or milk products - Check your blood glucose level regularly. It can tell you if you need to adjust the timing of when you eat carbohydrates. - Eating foods that have fiber, such as whole grains, and having very few salty foods is good for your health. ? Eat 4 to 6 ounces of meat or other protein foods (such as soybean burgers) each day. - Choose low-fat sources of protein, such as lean beef, lean pork, chicken, fish, low-fat cheese, or vegetarian foods such as soy. ? Eat some healthy fats, such as olive oil, canola oil, and nuts. ? Eat very little saturated fats. These unhealthy fats are found in butter, cream, and high-fat meats, such as lim and sausage. ? Eat very little or no trans fats. These unhealthy fats are found in all foods that list partially hydrogenated oil as an ingredient. Label Reading Tips The Nutrition Facts panel on a label lists the grams of total carbohydrate in 1 standard serving. The label s standard serving may be larger or smaller than 1 carbohydrate serving. To figure out how many carbohydrate servings are in the food: Look first at the label s standard serving size. Then check the grams of total carbohydrate. This is the amount of carbohydrate in 1standard serving. Divide the grams of total carbohydrate by 15. This number equals the number of carbohydrate servings in 1 standard serving. Remember: 1 carbohydrate serving is 15 grams of carbohydrate. Note: You may ignore the grams of sugars on the Nutrition Facts panel because they are included in the grams of total carbohydrate. Sample 1-Day Menu Total Carbohydrate Servings: 15 Breakfast: 1 small banana (1 carbohydrate serving) cup corn flakes (1 carbohydrate serving) 1 cup fat-free or low-fat milk (1 carbohydrate serving) 1 slice whole wheat bread (1 carbohydrate serving) 1 teaspoon soft margarine Lunch:2 ounces lean meat (for sandwich) 2 slices whole wheat bread (2 carbohydrate servings) Raw vegetables: 3-4 carrot sticks, 3-4 celery sticks, 2 lettuce leaves 1 cup fat-free or low-fat milk (1 carbohydrate serving) 1 small apple (1 carbohydrate serving) Snack: cup canned apricots (1 carbohydrate serving) ounce unsalted mini-pretzels (1 carbohydrate serving) Supper: 3 ounces lean roast beef large baked potato (2 carbohydrate servings) 1 tablespoon reduced-fat sour cream cup green beans 1 vegetable salad: lettuce, cup raw vegetables, and 1 tablespoon light salad dressing 1 small whole wheat dinner roll (1 carbohydrate serving) 1 teaspoon soft margarine 1 cup melon balls (1 carbohydrate serving) Snack:6 ounces low-fat fruit yogurt with sugar-free sweetener (1carbohydrate serving) 2 tablespoons unsalted nuts Follow Up Care 02/19/2024 13:28:03 With:Call Urology office for follow-up Address:Unknown When: Unknown Comments:Doctor's office will call patient after discharge to talk about her surgery that is planned. With:ALBERTINA ARNDT Address: [address] [place] [id number] [address] ([address]) When: Unknown Comments:Doctor's office will call patient for hosptial follow up appointment. [facility]06-22-2024 NoteBasic Information Admit Date/Time:02/19/2024 19:31 Chief Complaint Hyperglycemia History of Present Illness Patient is a pleasant 74-year-old obese white female with a past medical history significant for multiple previous kidney stones patient states all occurring on the left side of which required extraction. Patient's last hospitalization per review of the chart on 27 May 2023 when she presentedwith left flank pain review of her history and physical suggested that 2 weeks earlier in the 10th p atient required left ureteral dilation lithotripsy for left ureteral stone with basket extraction and had stent placed and she was noted to have at that time mild hydronephrosis. 2 days prior to thatadmission she had had stent removed. Was given 28 she had recurrence of a left ureteral stone acutekidney injury due to obstructive uropathy and a complicated urinary tract infection for which she was started on Zosyn. Patient did culture Anastacia from both of blood and urine and was started on caspofungin. Patient was seen by infectious disease had recommended converting to Diflucan and as patient had an existing stent at that time for 3 additional weeks. On July 15, 2023 patient had a left double-J stent with left renal stone extraction and extra shockwave lithotripsy and on 05 August had removal of the left ureteral stent as her ablation basket extraction of renal calculi fragments.Patient does have a history of described poorly controlled diabetes. Last hemoglobin A1c which patient confirms was her last 1 was May 09, 2023 with a hemoglobin A1c of 10.1. During her prior ho spitalization on 09 May patient did have a blood sugar as high as 460 was treated with LantusHumalog sliding scales with blood sugar improvement into the 200 range. Med reconciliation suggest that patient had been on Lantus 40 units. When discussing this with the patient he acknowledged she had been on this at 1 time was somewhat vague at first but ultimately suggested she has not used this for 3 months. When asked why she did not use this for 3 months she states because it did not agree with me . When asked what side effects she had she stated that she was short of breath on this agent and was no longer short of breath after she stopped taking it. I asked how often she checks her blood sugars she suggest every third day in the morning. At first when asking what her blood sugars usually run she states I do not remember but then when given options i.e. ranges confirms that her blood sugars have been in the 200s. She denies any hypoglycemia. Suggesting noncompliance with her diabetes care. Patient does have known history of coronary artery disease she had coronary bypass grafting x 3 she states 6 years ago at the [facility]. She was uncertain but believes she has been seen by Dr. Sanders in the past. She has never had congestive heart failure. Patient confirms a history of hypertension, hyperlipidemia, CT imaging suggesting history of coil embolization for portosystemic shunt. Patient presented to the emergency department this evening with below Patient states that she presented with pain in her abdomen and she points to the right upper quadrant. She was nonspecific at first uncertain how long she had had this ultimately suggested was for 3 days. She admitted to being colicky in nature. When she came in it was an 8 on a scale of 1-10. She denies it being worsened with any food she would consume, she denied it being worse with bowel movements, she denies any change in her bowel habits and she denies any padmini colored stool. She also denied it worsening with attempts at urination. Patient did state that she was earlier in the evening out to dinner with her came nauseated and vomited 3 times. There is no blood in the vomit. Shedid not feel that the food was spoiled. She has had no close contacts with GI illnesses. She does admit to dysuria but denies any urgency frequency or blood in her urination. She was noted emergency department to have obstructive uropathy on the right side as noted below. She states when she has had kidney stones on the left her pain is always been in the flank region. Patient denies any further n ausea and expressed interest in eating. Per the emergency branch or department chief librarian Dr. Dent was contacted patient was given 120 mg of gentamicin after they had given ceftriaxone 1 g. Patient was also given metoclopramide for nausea and given 1 L of fluid with additional fluid at 2 to 50 cc/h. Review of Systems Constitutional: no fever, no chills, no sweats, Skin: no Jaundice, no rash, no lesions, nopetechiae ENMT: no ear pain, no sore throat, no congestion, no hoarseness Respiratory: no shortness of breath, no cough, no orthopnea, no wheezing Cardiovascular: no chest pain, no palpitations, no edema Gastrointestinal: mild resolved nausea, mild vomiting, no diarrhea, no GI bleeding Genitourinary: Mild to moderate dysuria, no hematuria, Musculoskeletal: no back (more content not included)...[facility]:Result Comment: Electronically Signed By: Glynn ALARCON DO.hector\Date and Time Signed: 02/19/24 21:53 [id number] Note [id number] Discharge instructions Patient Education 08/05/2023 15:40:57 Post Op Patient Instructions - FT (Custom) (CUSTOM) 08/05/2023 15:06:29 [id number] Utereroscopy,Lithotripsy, Stone Extraction, Stent Placement (Custom) [facility] [place], [place] Dr. Orestes Grant Post-operative Instructions for Ureteroscopy, Laser Lithotripsy, Stone Extraction and Stent Placement There are no incisions or dressings to be concerned with, as the procedure was performed inside theurinary system. For 24 hours after surgery: No driving or operating machinery Do not make important decisions Do not consume alcohol, sleeping pills Stent Placement You may have a stent which spans the distance between your bladder and your kidney, allowing urine to pass through. It prevents blockage from swelling, kidney stones in ureter (tube connecting the kidney to the bladder), or scars. The presence of the stent may cause: Back or side pain, especially with urination Frequent or urgent urination Bladder pressure or pain Blood in urine You may pass stone debris or small blood clots, which is expected. Drinking plenty of water to dilute the urine may help. If there is a thread coming out of urinary channel, be careful not to accidently pull on this, as it is attached to the stent. The stent will most likely be removed in the office during a short procedure in which a scope is placed into the bladder, the stent is grasped and removed. At other times the stent may need to stay longer, either in preparation for other procedures or for other reasons. If it is to remain long term acute care registered nurse, however, changes of the stent are required (about every 3-4 months). Diet You may resume your normal diet, but you may want to start slowly and avoid spicy food, caffeine, carbonated beverages and alcohol, especially if you have a stent. Your diet and fluid intake may makeirritation from the stent worse. Activity You may resume your normal activities, although you should take it easy on the day of the procedure. Minimizing activity may decrease the back discomfort and irritation from the stent, if present. Medications You may resume your home medications unless instructed otherwise. Hold aspirin, ibuprofen, Coumadin (warfarin) and other blood thinners until your office visit (we will discuss when to resume these medications) Take your prescribed medications as directed, including your antibiotics. You may also be given a prescription for pain medicine or medicines to help with the bladder irritation from stent, if present. Things to watch for which would require an Emergency Room Visit (or call 911) (This is not a complete list) Fever over 101.5 degrees, with or without chills Severe bleeding Severe drug reactions with itching, hives, rash, or severe flank pain Tenderness or swelling or the calves, chest pain, or shortness of breath Please call the office to arrange for your post-operative appointment (with XRAY) [phone] Follow Up Care 07/29/2023 08:52:47 With:Orestes JACQUES Address: [address] [facility] (1) When: Unknown Comments:I was able to get up into the kidney, laser the stone, and remove the fragments. I did not replace the stent.You should be taking the potassium citrate prescribed by Dr Gold.I see you have a follow-upalready scheduled in July which I do not feel you need. Please call to schedule another appointm ent with Dr Gold in about 4 months. [facility]12-04-2023 Note [id number] 07-28-2023 History of Present illness Narrative* Sterling Florian, DO - 07/28/2023 10:40 AM EST Subjective Shahana Grace is a 73 y.o. female Chief Complaint Annual Exam 73-year-old female returns for annual follow-up and is doing well without any cardiovascular events, symptoms or nitrate usage or hospitalizations. She suffered an inferior PA in 2016 with primary revascularization of the RCA, subsequent four-vessel CABG due to severe left coronary disease. She has done well with for the past 7 years. She has underlying comorbidities to continue to include controlled hypertension, hyperlipidemia anddiabetes mellitus. She is intolerant to aspirin but remains on clopidogrel, she also remains on lisinopril and metoprolol and atorvastatin She would like to continue with cardiac rehab we will provide her a slip accordingly to continue with phase 3 cardiac rehab, obtain lipid panel, follow- up in 1 year Review of Systems All other systems reviewed and are negative. Visit Vitals BP 128/86 (BP Location: Right arm, Patient Position: Sitting) Pulse 74 Ht 1.575 m (5' 2 ) Wt 85.3 kg (188 lb) BMI 34.39 kg/m Smoking Status Never BSA 1.93 m Objective Physical Exam Constitutional: Appearance: Normal appearance. She is normal weight. HENT: Nose: Nose normal. Neck: Vascular: No carotid bruit. Cardiovascular: Rate and Rhythm: Normal rate. Pulses: Normal pulses. Heart sounds: Normal heart sounds. Pulmonary: Effort: Pulmonary effort is normal. Abdominal: General: Bowel sounds are normal. Palpations: Abdomen is soft. Genitourinary: Rectum: Normal. Musculoskeletal: General: Normal range of motion. Cervical back: Normal range of motion. Right lower leg: No edema. Left lower leg: No edema. Skin: General: Skin is warm and dry. Neurological: General: No focal deficit present. Mental Status: She is alert. Psychiatric: Mood and Affect: Mood normal. Behavior: Behavior normal. Thought Content: Thought content normal. Judgment: Judgment normal. Current Medications Current Outpatient Medications: atorvastatin (Lipitor) 40 mg tablet, Take 1 tablet (40 mg) by mouth once daily at bedtime., Disp: ,Rfl: clopidogrel (Plavix) 75 mg tablet, Take 1 tablet (75 mg) by mouth 5 times a week. Wed-Wednesday only, Disp: , Rfl: insulin glargine (Basaglar KwikPen U-100 Insulin) 100 unit/mL (3 mL) pen, Inject 40 Units under theskin once daily at bedtime. Take as directed per insulin instructions., Disp: , Rfl: lisinopril 5 mg tablet, Take 1 tablet (5 mg) by mouth 2 times a day., Disp: , Rfl: metFORMIN (Glucophage) 500 mg tablet, Take 2 tablets (1,000 mg) by mouth 2 times a day with meals.,Disp: , Rfl: metoprolol tartrate (Lopressor) 50 mg tablet, Take 1 tablet by mouth every 12 hours., Disp: , Rfl: Assessment/Plan No diagnosis found. documented in this encounterSt[facility] Work Phone: 1(625) 292-841911-29-2023 Instructions* Patient Instructions* Nishant Zapien MA - 07/28/2023 10:40 AM EST Please bring all medicines, vitamins, and herbal supplements with you when you come to the office. Prescriptions will not be filled unless you are compliant with your follow up appointments or have a follow up appointment scheduled as per instruction of your physician. Refills should be requested at the time of your visit. documented in this encounterSt. [facility] Work Phone: [phone]) 207-602310-04-2023 [facility]:Result Comment: Electronically Signed By: Jhonny Barrett DO\.br\Date and Time Signed: 06/02/23 17:06 [id number] Evaluation + Plan noteExtracted from: Title:Discharge Note Author:Jhonny Barrett DO Date:06/02/23 stable Discharge To, Anticipated II - Home with home health Discharged to - Home independently Transported by, Anticipated - Family [facility] Discharge Diet(s): Calorie Controlled- 1800 Calorie Diet, Fat Modified- Low cholesterol, Low Sodium- 2000 mg (06/02/23 11:08:00) Prescriptions fluconazole 200 mg/100 mL-NS IVPB, 200 mg= 100 mL, IV Piggyback, Daily Klor-Con/EF 25 mEq oral tablet, effervescent, 25 mEq= 1 tab(s), Oral, Daily, 10 refills, Not taking lisinopril 5 mg Tab, 5 mg= 1 tab(s), Oral, BID meclizine 12.5 mg Tab, 12.5 mg= 1 tab(s), Oral, TID, PRN Metoprolol tartrate 50 mg Tab, 50 mg= 1 tab(s), Oral, BID NS Flush 10 mL, See Instructions Vesicare 10 mg Tab, 10 mg= 1 tab(s), Oral, Daily Home atorvastatin 40 mg Tab, 40 mg= 1 tab(s), Oral, Daily, Not taking Basaglar KwikPen 100 units/mL subcutaneous solution metformin 500 mg Tab, Oral, BID Plavix 75 mg Tab, See Instructions Will need 3 weeks of IV Fluconazole With When Contact Information ALBERTINA [address] Business (1) Additional Instructions: Call for followup appointment Addendum by Diamond Barrett DO on June 02, 2023 17:04:17 EDT Single lumen midline placed for IV fluconazole Extracted from: Title:Infection Admission H&P * Author:Garrett Palmer M.D Date:06/01/23 Impression and Plan Diagnosis Obstructive uropathy s/p stent placement Candidemia . Orders Cultures finalized as Anastacia albicans. She maintains on caspofungin but can be switched to fluconazole.. Planning this is 3 weeks given recent stent placement. Placement blood cultures are -3 days.. Extracted from: Title:Progress/SOAP Note Author:Diamond Barrett DO Date:06/01/23 78-year-old female admitted for sepsis secondary to fungemia secondary to fungal urinary tract infection due to left UPJ stone causing hydronephrosis, acute kidney injury, leukocytosis and acute urinary retention. Status post cystoscopy with double-J stent placed on the left 05/27/2023. Urine culture from the is growing Anastacia albicans and blood cultures the are growing Anastacia albicans as well. Comorbidities include coronary disease, hypertension, type 2 diabetes, chronic kidney disease stage III, hyperlipidemia, kidney stones and obesity. 1. Acute sepsis (A41.9: Sepsis, unspecified organism) Secondary to fungemia secondary to fungal urinary tract infection Initially was on zosyn; now on day #3 IV caspofungin due to Anastacia albicans Blood and urine cultures Repeat blood cultures on May 30 no growth to date; she will need a PICC line placement repeat cultures are negative 2. Fungemia (B49: Unspecified mycosis) Refer to above 3. Acute UTI (urinary tract infection) (N39.0: Urinary tract infection, site not specified) Secondary to the UPJ stone status post cystoscopy with left retrograde pyelogram and left double-J stent placement May 27, 2023 Initially treated with IV Zosyn for gram-negative jerald UTI 4. GIOVANNY (acute kidney injury) (N17.9: Acute kidney failure, unspecified) Resolved; creatinine 1.2 today (baseline creatinine 1.4-1.6) 5. Left renal stone (N20.0: Calculus of kidney) Status post cystoscopy and left retrograde pyelogram with left double-J stent placement May 27, 2023 6. Hydronephrosis of left kidney (N13.30: Unspecified hydronephrosis) Resolved/stable 7. Hypokalemia (E87.6: Hypokalemia) Stable; potassium 3.6 today 8. Leukocytosis (D72.829: Elevated white blood cell count, unspecified) 9. Acute urinary retention (R33.8: Other retention of urine) Resolved 10. Constipation (K59.00: Constipation, unspecified) MiraLAX and Dulcolax 11. Diabetes mellitus (E11.9: Type 2 diabetes mellitus without complications) SSI for coverage 12. HTN (hypertension) (I10: Essential (primary) hypertension) Metoprolol and IV hydralazine; lisinopril was held due to acute kidney injury 13. CKD (chronic kidney disease), stage III (N18.30: Chronic kidney disease, stage 3 unspecified) Secondary to hypertensive and diabetic nephropathy 14. Coronary artery disease (I25.10: Atherosclerotic heart disease of [place] coronary artery without angina pectoris) Maintain Plavix and metoprolol 15. Hyperlipidemia (E78.5: Hyperlipidemia, unspecified) Statin therapy with Lipitor 16. Obesity due to excess calories (E66.09: Other obesity due to excess calories) 17. On deep vein thrombosis (DVT) prophylaxis (Z79.899: Other [facility]iary (current) drug therapy) Hydronephrosis with ureteral calculus (N13.2: Hydronephrosis with renal and ureteral calculous obstruction) Orders: Basic Metabolic Panel eGFR PLAN: 1. As above; awaiting repeat blood cultures from 05/30 to be finalized before PICC line placement for IV antifungal; she is currently on caspofungin and she will need a least 2 weeks 2. ID to see the patient later today 3. Maintain other medications including metoprolol, Plavix, statin therapy with Lipitor 4. Sliding scale insulin coverage for diabetes 5. DVT prophylaxis with SCDs 6. Discharge planning; looking at possible SNF placement for the IV antifungal Extracted from: Title:Progress/SOAP Note Author:Diamond Barrett DO Date:05/31/23 78-year-old female admitted for sepsis secondary to fungemia secondary to fungal urinary tract infection due to left UPJ stone causing hydronephrosis, acute kidney injury, leukocytosis and acute urinary retention. Status post cystoscopy with double-J stent placed on the left 05/27/2023. Urine culture from the is growing Anastacia albicans and blood cultures the are growing Anastacia albicans as well. Comorbidities include coronary disease, hypertension, type 2 diabetes, chronic kidney disease stage III, hyperlipidemia, kidney stones and obesity. 1. Acute sepsis (A41.9: Sepsis, unspecified organism) Secondary to fungemia secondary to fungal urinary tract infection Resolved She is treated with Zosyn initially and is now on day 2 of caspofungin; will require at least 2 weeks Infectious disease consulted She will require a midline/PICC line when repeat blood cultures are negative and those were ordered yesterday May 30 2. Fungemia (B49: Unspecified mycosis) See 1 above 3. Acute UTI (urinary tract infection) (N39.0: Urinary tract infection, site not specified) Secondary to the UPJ stone status post cystoscopy with left retrograde pyelogram and left double-J stent placement May 27, 2023 Initially treated with IV Zosyn for gram-negative jerald UTI and subsequently discontinued and switched over to caspofungin 4. GIOVANNY (acute kidney injury) (N17.9: Acute kidney failure, unspecified) Creatinine yesterday was 1.6 which is around her baseline (1.4-1.6) 5. Left renal stone (N20.0: Calculus of kidney) Status post cystoscopy and left retrograde pyelogram with left double-J stent placement May 19, 2023 6. Hydronephrosis of left kidney (N13.30: Unspecified hydronephrosis) See #5 7. Hypokalemia (E87.6: Hypokalemia) Stable as of yesterday at 3.8 8. Leukocytosis (D72.829: Elevated white blood cell count, unspecified) Called 9. Acute urinary retention (R33.8: Other retention of urine) Resolved; no Pearson 10. Constipation (K59.00: Constipation, unspecified) He has MiraLAX and Dulcolax 11. Diabetes mellitus (E11.9: Type 2 diabetes mellitus without complications) Sliding scale insulin coverage 12. HTN (hypertension) (I10: Essential (primary) hypertension) Metoprolol and IV hydralazine; lisinopril was held due to acute kidney injury 13. CKD (chronic kidney disease), stage III (N18.30: Chronic kidney disease, stage 3 unspecified) Secondary to hypertensive and diabetic nephropathy 14. Coronary artery disease (I25.10: Atherosclerotic heart disease of [place] coronary artery without angina pectoris) Maintain Plavix and metoprolol 15. Hyperlipidemia (E78.5: Hyperlipidemia, unspecified) Statin therapy with Lipitor 16. Obesity due to excess calories (E66.09: Other obesity due to excess calories) Therapeutic lifestyle modification changes in the outpatient setting 17. On deep vein thrombosis (DVT) prophylaxis (Z79.899: Other long term acute care registered nurse (current) drug therapy) SCDs Hydronephrosis with ureteral calculus (N13.2: Hydronephrosis with renal and ureteral calculous obstruction) Orders: Referral to Resource Center Extracted from: Title:APSO Note Author:ISHAN CHISHOLM, Phyllisanefo Date: 73-year-old female with history of coronary artery disease, hypertension, diabetes mellitus, CKD stage III, hyperlipidemia, obesity, kidney stones presented with complaints of left flank pain, nausea, fever and was admitted with sepsis secondary to fungemia secondary to fungal urinary tract infection secondary to left UPJ stone causing mild hydronephrosis, acute kidney injury, leukocytosis, acute urinary retention. She is status post cystoscopy with JJ stent placement on the left. 1. Acute sepsis (A41.9: Sepsis, unspecified organism) Sepsis secondary to fungemia secondary to fungal urinary tract infection present on admission. Sepsis has resolved. She was initially treated with IV Zosyn pending blood culture and urine culture result. Treated with IV fluid, IV antibiotics Continue on IV antifungals with caspofungin. Infectious disease consulted. Ordered: [facility] Hospital Care/Day Moderate 35 Minutes 72931 2. Fungemia (B49: Unspecified mycosis) Present on admission secondary to fungi urinary tract infection/UPJ stone. Infectious disease consulted. I spoke with infectious disease specialist patient will require IV antifungal x2 weeks. Patient will require PICC line eventually when repeat blood culture is negative. I ordered repeat blood culture. Ordered: [facility] Hospital Care/Day Moderate 35 Minutes [id number] 3. Acute UTI (urinary tract infection) (N39.0: Urinary tract infection, site not specified) Fungal UTI secondary to UPJ stone. Patient was started on IV caspofungin. Patient was initially treated with IV Zosyn for suspected gram-negative jerald UTI. This has been discontinued. Initial blood culture growing Staphylococcus hemolyticus was likely colonization prior to JJ stent placement and repeat urine cultures was obtained which showed fungal infection and in keeping with fungemia. Ordered: [facility] Hospital Care/Day Moderate 35 Minutes [id number] 4. GIOVANNY (acute kidney injury) (N17.9: Acute kidney failure, unspecified) Secondary to ATN from sepsis and urinary tract obstruction. Resolved. At baseline.. Treated with IV fluid. Avoid nephrotoxic drugs. Ordered: eGFR Extra Lav Tube [facility] Hospital Care/Day Moderate 35 Minutes 15476 5. Left renal stone (N20.0: Calculus of kidney) Left UPJ stone present on admission. Status post JJ stent placement. Follow-up with urologist for outpatient treatment of stone. Ordered: [facility] Hospital Care/Day Moderate 35 Minutes [id number] 6. Hydronephrosis of left kidney (N13.30: Unspecified hydronephrosis) Mild left hydronephrosis. Status post JJ stent placement. 7. Hypokalemia (E87.6: Hypokalemia) Replaced and resolved. Potassium level 3.8 Ordered: potassium chloride, 20 mEq = 1 tab(s), Tab-ER, Oral, Once, Stop date 05/29/23 17:00:00 EDT, Routine, Start date 05/29/23 17:00:00 EDT, 05/29/23 17:00:00 EDT 8. Leukocytosis (D72.829: Elevated white blood cell count, unspecified) Resolved. 9. Acute urinary retention (R33.8: Other retention of urine) Acute urinary retention secondary to above sepsis. Continue with Pearson catheter and we will do bladder training prior to discharge. 10. Constipation (K59.00: Constipation, unspecified) Started patient on MiraLAX and Dulcolax. Ordered: bisacodyl, 10 mg = 2 tab(s), Tab-EC, Oral, Daily, Routine, Start date 05/30/23 9:00:00 EDT, 05/30/23 9:00:00 EDT polyethylene glycol 3350, 17 gram = 1 EA, Powder-Recon, Oral, Daily, Routine, Start date 05/30/23 9:00:00 EDT, 05/30/23 9:00:00 EDT 11. Diabetes mellitus (E11.9: Type 2 diabetes mellitus without complications) On sliding scale insulin. 12. HTN (hypertension) (I10: Essential (primary) hypertension) On metoprolol and IV hydralazine. Lisinopril temporarily on hold due to above acute kidney injury. 13. CKD (chronic kidney disease), stage III (N18.30: Chronic kidney disease, stage 3 unspecified) Secondary to hypertensive and diabetic nephropathy. 14. Coronary artery disease (I25.10: Atherosclerotic heart disease of [place] coronary artery without angina pectoris) Stable. Continue on Plavix and metoprolol 15. Hyperlipidemia (E78.5: Hyperlipidemia, unspecified) On Lipitor. 16. Obesity due to excess calories (E66.09: Other obesity due to excess calories) Recommend therapeutic lifestyle modification changes. 17. On deep vein thrombosis (DVT) prophylaxis (Z79.899: Other long term acute care registered nurse (current) drug therapy) SCDs. Disposition: Home early to midweek next week pending blood culture being negative. Patient will require PICC line placement once blood culture is negative. I discussed the diagnosis and plan of care with the patient at the bedside. Moderate level of MDM based on addressing above issues. This documentation was transcribed using voice recognition software. Several attempts were made to ensure accuracy. However inadvertent computerized insole tacker errors may be present. Felice Marx. Hospitalist. Orders: caspofungin + Sodium Chloride 0.9% intravenous solution 100 mL, 50 mg = 1 EA, Injection, IV Piggyback, Daily, Routine, Start date 05/30/23 9:00:00 EDT, 100 mL/hr, Infuse over 1 hour(s) caspofungin + Sodium Chloride 0.9% intravenous solution 250 mL, 70 mg = 1 EA, Injection, IV Piggyback, Once, Stop date 05/29/23 15:00:00 EDT, Routine, Start date 05/29/23 15:00:00 EDT, 250 mL/hr, Infuse over 1 hour(s) Sodium Chloride 0.45% intravenous solution 1,000 mL, 1,000 mL, IV, 75 mL/hr, for 2 dose(s), Stop date 05/29/23 10:45:00 EDT, Routine, Start date 05/28/23 8:10:00 EDT, 13.3 hour(s), Total volume (mL): 1,000, 92.9 kg, 2.02, m2 Bladder Training Blood Culture Charcoal Blood Culture Charcoal Blood Culture Charcoal Blood Culture Charcoal Consult to Infectious Disease Physician Physical Therapy Additional Tx Physical Therapy Evaluate Patient, Develop a Plan of Care and Implement Plan Routine Capillary Glucose POC Extracted from: Title:APSO Note Author:ISHAN CHISHOLM, Mbanefo Date: 73-year-old female with history of coronary artery disease, hypertension, diabetes mellitus, CKD stage III, hyperlipidemia, obesity, kidney stones presented with complaints of left flank pain, nausea, fever and was admitted with sepsis secondary to urinary tract infection secondary to left UPJ stone causing mild hydronephrosis, acute kidney injury, leukocytosis, acute urinary retention. She is status post cystoscopy with JJ stent placement on the left. 1. Acute sepsis (A41.9: Sepsis, unspecified organism) Secondary to urinary tract infection present on admission. Sepsis has resolved. Treated with IV fluid, IV antibiotics. Follow cultures. Ordered: [facility] Hospital Care/Day Moderate 35 Minutes 67676 2. Acute UTI (urinary tract infection) (N39.0: Urinary tract infection, site not specified) Staphylococcus coagulase-negative urinary tract infection secondary to retained stone. Present on admission. Continue on IV Zosyn pending final urine culture result. Ordered: [facility] Hospital Care/Day Moderate 35 Minutes 02524 3. GIOVANNY (acute kidney injury) (N17.9: Acute kidney failure, unspecified) Acute kidney injury secondary to ATN from above sepsis and urinary tract obstruction. Improving. Avoid nephrotoxic drugs. Treating with IV fluid. Ordered: Basic Metabolic Panel eGFR [facility] Hospital Care/Day Moderate 35 Minutes 45099 4. Left renal stone (N20.0: Calculus of kidney) Left UPJ stone present on admission. Status post JJ stent placement. Follow-up with urologist for outpatient treatment of stone. [facility] Mod[facility] 35 Minutes 89672 5. Hydronephrosis of left kidney (N13.30: Unspecified hydronephrosis) Mild left hydronephrosis. Status post JJ stent placement. Ordered: [facility] Hospital Care/Day Moderate 35 Minutes 70086 6. Hypokalemia (E87.6: Hypokalemia) Potassium level 3.4. We will replace with oral potassium. Repeat BMP in AM. Ordered: potassium chloride, 40 mEq = 2 tab(s), Tab-ER, Oral, Once, Stop date 05/29/23 8:00:00 EDT, Routine, Start date 05/29/23 8:00:00 EDT, 05/29/23 7:22:00 EDT potassium chloride, 20 mEq = 1 tab(s), Tab-ER, Oral, Once, Stop date 05/29/23 17:00:00 EDT, Routine, Start date 05/29/23 17:00:00 EDT, 05/29/23 17:00:00 EDT 7. Leukocytosis (D72.829: Elevated white blood cell count, unspecified) Secondary to above infectious process. WBC trended down. Ordered: Automated Diff CBC w/ Auto Diff 8. Acute urinary retention (R33.8: Other retention of urine) Acute urinary retention secondary to above sepsis. Continue with Pearson catheter and do bladder training in a.m. with plans to remove Pearson catheter. Follow-up with urologist. 9. Diabetes mellitus (E11.9: Type 2 diabetes mellitus without complications) Continue on sliding scale insulin. 10. HTN (hypertension) (I10: Essential (primary) hypertension) Blood pressure fairly controlled. Continue on metoprolol and IV hydralazine as needed. 11. CKD (chronic kidney disease), stage III (N18.30: Chronic kidney disease, stage 3 unspecified) Secondary to hypertensive and diabetic nephropathy. Monitor BMP closely. 12. Coronary artery disease (I25.10: Atherosclerotic heart disease of [place] coronary artery without angina pectoris) Stable. Continue on Plavix and metoprolol. 13. Hyperlipidemia (E78.5: Hyperlipidemia, unspecified) On Lipitor. 14. Obesity due to excess calories (E66.09: Other obesity due to excess calories) Recommend therapeutic lifestyle modification changes. 15. On deep vein thrombosis (DVT) prophylaxis (Z79.899: Other long term acute care registered nurse (current) drug therapy) SCDs. Disposition: Hopefully home in a.m. pending final urine culture result. Physical therapy evaluation for discharge planning. I discussed the diagnosis and plan of care with the patient at the bedside. Moderate level of MDM based on addressing above issues. This documentation was transcribed using voice recognition software. Several attempts were made to ensure accuracy. However inadvertent computerized insole tacker errors may be present. Felice Marx. Hospitalist. Orders: clopidogrel, 75 mg = 1 tab(s), Tab, Oral, Samuel, NOW, Start date 05/28/23 9:58:00 EDT Sodium Chloride 0.45% intravenous solution 1,000 mL, 1,000 mL, IV, 75 mL/hr, for 2 dose(s), Stop date 05/30/23 13:20:00 EDT, Routine, Start date 05/29/23 10:45:00 EDT, 13.3 hour(s), Total volume (mL): 1,000, 92.9 kg, 2.02, m2 Blood Culture Charcoal Blood Culture Charcoal Communication Order Physician to Nursing Physical Therapy Evaluate Patient, Develop a Plan of Care and Implement Plan Straight Cath Urinary Catheter Insertion Addendum by Iris MARX MD on May 29, 2023 15:19:54 EDT - Received a call from microbiology urine culture is positive for yeast, 2 blood culture results are also positive for yeast. I called and spoke with infectious disease specialist advised to start patient on antifungal regimen with caspofungin injections for a total of 2 weeks. Repeat blood cultures pending. I went to the patient's room and also spoke with the patient and her daughter informing them of the need for IV antifungal for total of 2 weeks pending clearing of the fungal infection from the blood. Origin urine culture from 05/26/2023 is not reflective of what the patient actually has. Therefore we will discontinue Zyvox and Zosyn. Extracted from: Title:APSO Note Author:ISHAN CHISHOLM, Mbanefo Date: 73-year-old female with history of coronary artery disease, hypertension, diabetes mellitus, hyperlipidemia, obesity, kidney stones presented with complaints of left flank pain, nausea, fever and was admitted with sepsis secondary to urinary tract infection secondary to left UPJ stone causing mild hydronephrosis, acute kidney injury, leukocytosis, acute urinary retention. She is status post cystoscopy with JJ stent placement on the left. 1. Acute sepsis (A41.9: Sepsis, unspecified organism) Sepsis secondary to urinary tract infection. Present on admission. Sepsis is resolving. Cautious with IV fluid in this patient with coronary artery disease. Follow cultures. Ordered: [facility] Hospital Care/Day High 50 Minutes 92278 2. Acute UTI (urinary tract infection) (N39.0: Urinary tract infection, site not specified) Acute urinary tract infection secondary to retained stone. Continue on IV Zosyn pending final urine culture result. Ordered: [facility] Hospital Care/Day High 50 Minutes [id number] 3. GIOVANNY (acute kidney injury) (N17.9: Acute kidney failure, unspecified) Acute kidney injury secondary to ATN from above sepsis and urinary tract obstruction. Avoid nephrotoxic drugs. Continue on IV fluid. BMP in AM. Ordered: Basic Metabolic Panel [facility] Hospital Care/Day High 50 Minutes [id number] 4. Left renal stone (N20.0: Calculus of kidney) Left UPJ stone present on admission. Status post cystoscopy with JJ stent placement. Urology consult reviewed by me. I appreciate and agree with recommendations. Follow-up with urologist as outpatient for stone treatment. Ordered: [facility] Hospital Care/Day High 50 Minutes [id number] 5. Hydronephrosis of left kidney (N13.30: Unspecified hydronephrosis) Mild left hydronephrosis secondary to above #4. Status post JJ stent placement. Ordered: [facility]Day High 50 Minutes [id number] 6. Leukocytosis (D72.829: Elevated white blood cell count, unspecified) Secondary to above infectious process. WBC trending down. Follow cultures. Ordered: CBC w/ Auto Diff 7. Acute urinary retention (R33.8: Other retention of urine) Secondary to above sepsis. May straight cath patient x1 and do bladder scans every 4 hours. Patient may benefit from Pearson catheter placement if urine retention greater than 300 mils. 8. Diabetes mellitus (E11.9: Type 2 diabetes mellitus without complications) On sliding scale insulin. 9. HTN (hypertension) (I10: Essential (primary) hypertension) Blood pressure fairly controlled. Continue metoprolol. 10. Coronary artery disease (I25.10: Atherosclerotic heart disease of [place] coronary artery without angina pectoris) Continue on Plavix, metoprolol. 11. Hyperlipidemia (E78.5: Hyperlipidemia, unspecified) On Lipitor. 12. Obesity due to excess calories (E66.09: Other obesity due to excess calories) Recommend therapeutic lifestyle modification changes. 13. On deep vein thrombosis (DVT) prophylaxis (Z79.899: Other penitentiary (current) drug therapy) SCDs. I discussed the diagnosis and plan of care with the patient at the bedside. High Level of MDM based on addressing above issues. This documentation was transcribed using voice recognition software. Several attempts were made to ensure accuracy. However inadvertent computerized insole tacker errors may be present. Felice Marx. Hospitalist. Orders: acetaminophen, 650 mg = 2 tab(s), Tab, Oral, q6hr PRN Fever, Routine, Start date 05/27/23 11:51:00 EDT, 05/27/23 11:51:00 EDT albuterol-ipratropium, 3 mL, Soln-Inh, Inhalation, QID PRN Shortness of breath or wheezing, Routine, Start date 05/28/23 8:01:00 EDT metoprolol, 5 mg = 5 mL, Injection, IV Push, q6hr PRN Other (see comment), Routine, Start date 05/27/23 13:35:00 EDT, 05/27/23 13:35:00 EDT metoprolol, 50 mg = 1 tab(s), Tab, Oral, BID, Routine, Start date 05/27/23 21:00:00 EDT, 05/27/23 11:22:00 EDT Sodium Chloride 0.45% intravenous solution 1,000 mL, 1,000 mL, IV, 100 mL/hr, for 2 dose(s), Stop date 05/28/23 7:48:00 EDT, Routine, Start date 05/27/23 11:49:00 EDT, 10 hour(s), Total volume (mL): 1,000, 92.9 kg, 2.02, m2 Sodium Chloride 0.45% intravenous solution 1,000 mL, 1,000 mL, IV, 75 mL/hr, for 2 dose(s), Stop date 05/29/23 10:45:00 EDT, Routine, Start date 05/28/23 8:10:00 EDT, 13.3 hour(s), Total volume (mL): 1,000, 92.9 kg, 2.02, m2 Automated Diff Basic Metabolic Panel Bladder Scan Bladder Scan Blood Culture Charcoal Blood Culture Charcoal CBC w/ Auto Diff Communication Order Physician to Nursing Diabetic/Calorie Control Diet eGFR Straight Cath Extracted from: Title:ANES Post Op - General Author:MD Ingrid , Jossy Greene Date:05/27/23 Plan Transfer/Discharge: Transfer/Discharge Discharge when meets criteria ( To home ). Extracted from: Title:Urology Consult and H&P 2 Author:Orestes JACQUES MD Date:05/27/23 Impression and Plan Diagnosis Acute sepsis (SJP69-HA A41.9, Working, Medical). Acute UTI (urinary tract infection) (PLL33-OB N39.0, Discharge, Medical). GIOVANNY (acute kidney injury) (GQH17-KI N17.9, Discharge, Medical). Hydronephrosis with ureteral calculus (USH56-DD N13.2, Working, Medical). Obesity due to excess calories (VPR40-IS E66.09, Discharge, Medical). Course: Worsening, Discussed with ER physician, discussed with anesthesia, discussed with the patient, reviewed labs, viewed urinalysis, viewed CT scan from earlier in April as well as the current CT scan with this admission Overall this 73-year-old female has a longstanding history of kidney stones and recently had a left distal laser lithotripsy performed. The stent was removed last week by Dr. Dent. At that time upon my review of the prior CT scan she had about a 1 cm stone in the left renal pelvis which unfortunately has now traveled a bit distally into the left ureteropelvic junction and is now causing obstruction in the presence of urinary tract infection and she is demonstrating signs of sepsis. She is not yet in septic shock but this is certainly pending. She did have the episode of hypotension just before surgical intervention today. Full informed consent as part of the record and she understands that she needs an immediate trip to the operating room to relieve obstruction of the left kidney. Aggressive antibiotic administration will but will continue and she will need subsequent evaluation with KUB. Once the acute situation is resolved she will most likely need lithotripsy of this large left UPJ calculus. She agrees with the plan and does except the increased risk of anesthesia given her overall clinical scenario and multiple comorbidities. Extracted from: Title:ANES Pre Op - Adult General [facility] Date:05/27/23 Plan [place] [employer] (ASA) physical status classification: Class IV. Anesthetic Preoperative Plan Anesthesia: General. . Anesthetic plan, risks, benefits, and alternatives discussed with the patient and/or family. Risks discussed: nausea, vomiting, headache, sore throat, dental injury, serious complications. Patient verbalized understanding. Communication: face to face with patient 5 minutes. Extracted from: Title:Admission H & P Author:Paola Woods MD Date:05/27/23 1. Left renal stone (N20.0: Calculus of kidney) CT showed left sided 9 mm obstructing ureteral stone with mild hydronephrosis. Morphine prn pain. Urology consulted. NPO for OR today. 2. GIOVANNY (acute kidney injury) (N17.9: Acute kidney failure, unspecified) Due to Obstructing Uropathy. NS at 75 cc/hr Appears to have CKD stage 3 at baseline. Urology consultation for stent as above. 3. Acute UTI (urinary tract infection) (N39.0: Urinary tract infection, site not specified) Complicated UTI in setting of above Urine cx pending Zosyn 4. Diabetes mellitus (E11.9: Type 2 diabetes mellitus without complications) With current hyperglycemia Glargine plus SSI prn Uncontrolled, A1C 10.1 5. HTN (hypertension) (I10: Essential (primary) hypertension) Currently hypertensive Scheduled Metoprolol 5mg IV Q6hrs. Hydralazine prn SBP>180. 6. Coronary artery disease (I25.10: Atherosclerotic heart disease of [place] coronary artery without angina pectoris) Hold Plavix, Metoprolol, Lisinopril. 7. Hyperlipidemia (E78.5: Hyperlipidemia, unspecified) Hold Lipitor 8. Obesity due to excess calories (E66.09: Other obesity due to excess calories) BMI 37 Extracted from: Title:ED Note Author:Louis ALEX Jodyfrancisco Tipton Date :05/26/23 Acute UTI (urinary tract inf ection) (N39.0: Urinary tract infection, site not specified) GIOVANNY (acute kidney injury) (N17.9: Acute kidney failure, unspecified) Left renal stone (N20.0: Calculus of kidney) Leukocytosis (D72.829: Elevated white blood cell count, unspecified) Orders: morphine, 2 mg = 1 mL, Injection, IV Push, Once, Stop date 05/26/23 23:11:00 EDT, STAT, Start date 05/26/23 23:11:00 EDT, 05/26/23 23:11:00 EDT ondansetron, 4 mg = 2 mL, Injection, IV Push, Once, Stop date 05/26/23 20:48:00 EDT, STAT, Start date 05/26/23 20:48:00 EDT, 05/26/23 20:48:00 EDT piperacillin-tazobactam + Sodium Chloride 0.9% intravenous solution 50 mL, 3.375 gm = 1 EA, IV Piggyback, q6hrFT, STAT, Start date 05/26/23 23:39:00 EDT, 100 mL/hr, Infuse over 30 minute(s), 05/26/23 23:39:00 EDT promethazine, 12.5 mg = 0.5 mL, Injection, IV Push, Once, Stop date 05/26/23 22:11:00 EDT, STAT, Start date 05/26/23 22:11:00 EDT, 05/26/23 22:11:00 EDT Sodium Chloride 0.9% intravenous solution 1,000 mL, 1,000 mL, IV, 983.61 mL/hr, for 30 day(s), Stop date 06/25/23 23:06:00 EDT, STAT, Start date 05/26/23 23:07:00 EDT, 61 minute(s), Total volume (mL): 1,000, 92.9 kg, 2.02, m2 Sodium Chloride 0.9% intravenous solution 1,000 mL, 1,000 mL, IV, 983.61 mL/hr, for 30 day(s), Stop date 06/25/23 20:46:00 EDT, STAT, Start date 05/26/23 20:47:00 EDT, 61 minute(s), Total volume (mL): 1,000, 92.9 kg, 2.02, m2 Consult to Urology CT Abdomen/Pelvis w/o Contrast ECG 12 Lead Adult ED Physician consult Hospitalist for continued care Extra Lav Tube NPO Diet Troponin 0 Hr. Urine Strain Future Appointments Appointment Date:08/19/2023 01:15:00 PM Scheduled Provider:Wendy Gold MD Location:[facility] Appointment Type:URO Office Visit Future Scheduled Tests Laboratory* Basic Metabolic Panel 06/26/22 Radiology* XR Abdomen 1 View 05/28/23 * CTA Abdomen 01/24/24 [facility]10-04-2023 Hospital Discharge instructions Patient Education 06/02/2023 11:27:12 Urinary Tract Infection, Adult Urinary Tract Infection, Adult A urinary tract infection (UTI) is an infection of any part of the urinary tract. The urinary tractincludes the kidneys, ureters, bladder, and urethra. These organs make, store, and get rid of urinein the body. An upper UTI affects the ureters and kidneys. A lower UTI affects the bladder and urethra. What are the causes? Most urinary tract infections are caused by bacteria in your genital area around your urethra, where urine leaves your body. These bacteria grow and cause inflammation of your urinary tract. What increases the risk? You are more likely to develop this condition if: You have a urinary catheter that stays in place. You are not able to control when you urinate or have a bowel movement (incontinence). You are female and you: ?Use a spermicide or diaphragm for control. ?Have low estrogen levels. ?Are . You have certain genes that increase your risk. You are sexually active. You take antibiotic medicines. You have a condition that causes your flow of urine to slow down, such as: ?An enlarged prostate, if you are male. ?Blockage in your urethra. ?A kidney stone. ?A nerve condition that affects your bladder control (neurogenic bladder). ?Not getting enough to drink, or not urinating often. You have certain medical conditions, such as: ?Diabetes. ?A weak disease-fighting system (immunesystem). ?Sickle cell disease. ?Gout. ?Spinal cord injury. What are the signs or symptoms? Symptoms of this condition include: Needing to urinate right away (urgency). Frequent urination. This may include small amounts of urine each time you urinate. Pain or burning with urination. Blood in the urine. Urine that smells bad or unusual. Trouble urinating. Cloudy urine. Vaginal discharge, if you are female. Pain in the abdomen or the lower back. You may also have: Vomiting or a decreased appetite. Confusion. Irritability or tiredness. A fever or chills. Diarrhea. The first symptom in older adults may be confusion. In some cases, they may not have any symptoms until the infection has worsened. How is this diagnosed? This condition is diagnosed based on your medical history and a physical exam. You may also have other tests, including: Urine tests. Blood tests. Tests for STIs (sexually transmitted infections). If you have had more than one UTI, a cystoscopy or imaging studies may be done to determine the cause of the infections. How is this treated? Treatment for this condition includes: Antibiotic medicine. Rshz-cvp-ggtqqfb medicines to treat discomfort. Drinking enough water to stay hydrated. If you have frequent infections or have other conditions such as a kidney stone, you may need to see a health care provider who specializes in the urinary tract (urologist). In rare cases, urinary tract infections can cause sepsis. Sepsis is a life- threatening condition that occurs when the body responds to an infection. Sepsis is treated in the hospital with IV antibiotics, fluids, and other medicines. Follow these instructions at home: Medicines Take cjkx-vkv-vknzgen and prescription medicines only as told by your health care provider. If you were prescribed an antibiotic medicine, take it as told by your health care provider. Do notstop using the antibiotic even if you start to feel better. General instructions Make sure you: ?Empty your bladder often and completely. Do not hold urine for long periods of time. ?Empty your bladder after sex. ?Wipe from front to back after urinating or having a bowel movement if you are female. Use each tissue only one time when you wipe. Drink enough fluid to keep your urine pale yellow. Keep all follow-up visits. This is important. Contact a health care provider if: Your symptoms do not get better after 1 2 days. Your symptoms go away and then return. Get help right away if: You have severe pain in your back or your lower abdomen. You have a fever or chills. You have nausea or vomiting. Summary A urinary tract infection (UTI) is an infection of any part of the urinary tract, which includes the kidneys, ureters, bladder, and urethra. Most urinary tract infections are caused by bacteria in your genital area. Treatment for this condition often includes antibiotic medicines. If you were prescribed an antibiotic medicine, take it as told by your health care provider. Do notstop using the antibiotic even if you start to feel better. Keep all follow-up visits. This is important. This information is not intended to replace advice given to you by your health care provider. Make sure you discuss any questions you have with your health care provider. Document Revised: 03/28/2021 Document Reviewed: 03/28/2021 [employer] Patient Education 2022 [employer]. 06/02/2023 11:27:01 Sepsis, Self Care, Adult Sepsis, Self Care, Adult Sepsis is a serious illness that may require intensive care in the hospital. The following information explains what you need to know in order to manage your condition after you are discharged from the hospital. What are the risks? After being treated for sepsis and discharged from the hospital, you may be at a higher risk for certain problems. These problems may be physical or mental. Physical problems: Weakness and tiredness. Shortness of breath. Pain in many areas of the body. Difficulty walking. Dry, itchy skin. Lack of appetite. This may lead to weight loss. Organ failure. Mental problems: Difficulty sleeping. Depression. Confusion. Anxiety and worry caused by having gone through a bad experience (post-traumatic stress disorder,PTSD). Low self-esteem. Follow these instructions at home: Medicines Take prjh-hsy-mjxlpxz and prescription medicines only as told by your health care provider. If you were prescribed an antibiotic, antiviral, or antifungal medicine, take it as told by your health care provider. Do not stop taking the medicine even if you start to feel better. Eating and drinking Eat a healthy diet that includes plenty of vegetables, fruits, whole grains, low-fat dairy products, and lean protein. Ask your health care provider if you should avoid certain foods. Drink enough fluid to keep your urine pale yellow. Alcohol use Do not drink alcohol if: ?Your health care provider tells you not to drink. ?You are , may be , or are planning to become . If you drink alcohol, limit how much you use to: ?0 1 drink a day for women. ?0 2 drinks a day for men. ?Be aware of how much alcohol is in your drink. In the [place] one drink equals one 12 oz bottle of beer (355 mL), one 5 oz glass of wine (148 mL), or one 1 oz glass of hard liquor (44 mL). Activity Rest as told by your health care provider. Avoid sitting for a long time without moving. Get up to take short walks every 1 2 hours. This is important to improve blood flow and breathing. Ask for help if you feel weak or unsteady. Try to set small, achievable goals each week, such as dressing yourself, bathing, or walking up thestairs. It may take a while to rebuild your strength. Try to exercise regularly if you feel healthy enough to do so. Ask your health care provider what exercises are safe for you. Return to your normal activities as told by your health care provider. Ask your health care provider what activities are safe for you. Preventing infection Keep your vaccinations up to date. Get the flu shot every year. Wash your hands often for at least 20 seconds using soap and water. If soap and water are not available, use hand senior accounting manager. Practice good hygiene. Keep cuts clean and covered until they heal. Managing stress Talk with your health care provider or counselor about ways to reduce stress. He or she may suggest: Meditation, muscle relaxation, and breathing exercises. Listening to music. Talk therapy. Spending time on hobbies and activities that you enjoy. General instructions Get the right amount and quality of sleep. Most adults need 7 9 hours of sleep each night. To help with sleep: ?Keep your bedroom cool and dark. ?Do not eat a heavy meal within one hour of bedtime. ?Do not drink alcohol or caffeinated drinks before bed. ?Avoid screen time, such as television, computers, tablets, or cell phones before bed. Do not use any products that contain nicotine or tobacco. These products include cigarettes, chewing tobacco, and vaping devices, such as e-cigarettes. If you need help quitting, ask your health careprovider. Talk to trusted family members and friends about your condition. Explain your symptoms to them, andlet them know that you are working with a health care provider to treat your condition. This can provide you with one way to get support and guidance. Keep all follow-up visits. This is important. Questions to ask your health care provider: What physical and emotional changes do I need to report? Do I need to have someone with me all the time? Is it safe for me to drive? Contact a health care provider if: You do not feel like you are getting better or regaining strength. You have muscle or joint pain. You frequently feel tired. You are having trouble coping with your recovery. You have nightmares, or trouble falling asleep or staying asleep. You feel sad, down, or depressed more often than not, every day for more than 2 weeks. You have difficulty concentrating. You feel irritable or you cry for no reason. Get help right away if: You have difficulty breathing. You have a rapid or skipping heartbeat. You become confused or disoriented. You see, hear, or feel things that do not exist (hallucinations). You have a high fever. You have an infection that is getting worse or not getting better. You have thoughts of hurting yourself or others. These symptoms may represent a serious problem that is an emergency. Do not wait to see if the symptoms will go away. Get medical help right away. Call your local emergency services (422 in the [place] Do not drive yourself to the hospital. If you ever feel like you may hurt yourself or others, or have thoughts about taking your own life,get help right away. Go to your nearest emergency department or: Call your local emergency services (953 in the [place] Call a suicide crisis helpline, such as the National Suicide Prevention Lifeline at or 251 in the [place] This is open 24 hours a day. Text the Crisis Text Line at 515576 (in the [place] Summary Sepsis is a serious illness that may require intensive care in a hospital. You may experience long-term health effects after you are discharged from the hospital. Try to set small, achievable goals each week, such as dressing yourself, bathing, or walking up thestairs. It may take a while to rebuild your strength. Know what symptoms you should get help right away for. Keep all follow-up visits. This is important. This information is not intended to replace advice given to you by your health care provider. Make sure you discuss any questions you have with your health care provider. Document Revised: 03/11/2022 Document Reviewed: 06/30/2021 [employer] Patient Education 2022 InfoAssure. Follow Up Care 05/26/2023 15:42:08 With:ALBERTINA ARNDT Address: [address] [place] [phone] Business (1) When: Unknown Comments:Call for followup appointment [facility]10-04-2023 NotePatient provided discharge education and instructions on right midline. Report called to Kalpana RN at [facility]. Pt denies any questions at this time. Pt transported to patient pickup via wheelchair.[facility]09-28-2023 NoteFishSaint Luke InstituteComment on above:Result Comment: Electronically Signed By: Chuck CHISHOLM, Paola\.br\Date and Time Signed: 05/27/23 02:02 [id number] Hospital Discharge instructions Patient Education 05/25/2023 09:21:01 EU - Cystoscopy with Stent Removal Discharge Instructions (CUSTOM) Cystoscopy with Stent Removal Voiding after the procedure: there may be some pain, burning, urgency, frequency and blood tinged urine following the procedure. These symptoms usually resolve within 2-5 days. Drink the amount of fluid it takes to keep the urine pink to yellow or clear in color. Drinking enough water and fluids will help to ease any discomfort after your procedure. If you are having problems that seem out of the ordinary, please call. If unable to contact your physician and you feel it is an emergency, go to the nearest emergency room or call 911 Diet you may resume your normal diet. Activity you may resume your normal activities Call if you have a fever over 100 degrees. Follow Up Care 05/13/2023 15:03:14 With:Glynn DENT Address: [facility] [address] [place] [phone]- Business (1) When:08/24/2023 09:20:42 Comments:Follow-up is to be with Dr. Matthew Bustamante - [facility]09-26-2023 Note [id number]:[id number] 05-11-2023 Evaluation + Plan noteExtracted from: Title:Discharge Note Author:Ck RILEY MD Date: 05/11/23 Discharge To, Anticipated II - Home with responsible caregiver Discharge Diet(s): Calorie Controlled- 1800 Calorie Diet, Fat Modified- Low cholesterol, Low Sodium- 2000 mg (05/11/23 07:12:00) Prescriptions estradiol 0.1 mg/g Vag Crm, See Instructions, 1 refills, Not taking Keflex 500 mg Cap, 500 mg= 1 cap(s), Oral, TID Klor-Con/EF 25 mEq oral tablet, effervescent, 25 mEq= 1 tab(s), Oral, Daily, 10 refills, Not taking lisinopril 5 mg Tab, 5 mg= 1 tab(s), Oral, BID meclizine 12.5 mg Tab, 12.5 mg= 1 tab(s), Oral, TID, PRN Metoprolol tartrate 50 mg Tab, 50 mg= 1 tab(s), Oral, BID Myrbetriq 25 mg oral tablet, extended release, 25 mg= 1 tab(s), Oral, Daily, 6 refills Plavix 75 mg Tab, 75 mg= 1 tab(s), Oral, Daily potassium citrate compounding powder, 30 mEq, Oral, BID, 3 refills, Not taking Vesicare 10 mg Tab, 10 mg= 1 tab(s), Oral, Daily Home atorvastatin 40 mg Tab, 40 mg= 1 tab(s), Oral, Daily Basaglar KwikPen 100 units/mL subcutaneous solution metformin 500 mg Tab, Oral, BID Plavix 75 mg Tab, 75 mg= 1 tab(s), Oral, MonTuThFrSaSu With When Contact Information Glynn DENT 05/17/2023 01:30 PM EDT [facility] [address], [place] [address]- Business (1) Additional Instructions: ALBERTINA ARNDT 05/17/2023 09:30 AM EDT [address] [place] [phone]- Business (1) Additional Instructions: Extracted from: Title:APSO Note Author:Ck RILEY MD Date: 1. Left ureteral calculus (N 20.1: Calculus of ureter) - UTI present on admission secondary to left ureteral calculus causing left hydroureteronephrosis - POD #1 s/p 1. Cystoscopy. 2. Left rigid ureteral dilation. 3. Left ureteroscopy. 4. Holmium laser lithotripsy of left ureteral calculus. 5. Stone basket extraction. 6. Placement of 6 [place] variable length left ureteral stent. with Dr. Dent of urology - urine culture pending - continue ceftriaxone IV - stop IVF, encourage PO intake 2. Hydroureter, left (N13.4: Hydroureter) - as above 3. Hypertension (I10: Essential (primary) hypertension) - stable - continue PO metoprolol and lisinopril 4. Hyperlipidemia (E78.5: Hyperlipidemia, unspecified) - stable - continue PO atorvastatin 5. Diabetes (E11.9: Type 2 diabetes mellitus without complications) - stable - continue subcutaneous lantus and SSI - hold PO metformin 6. Coronary artery disease (I25.10: Atherosclerotic heart disease of [place] coronary artery without angina pectoris) - stable - continue PO plavix, statin, metoprolol and lisinopril 7. Obesity due to excess calories (E66.09: Other obesity due to excess calories) - BMI over 30 - lifestyle modification, outpatient PCP follow up 8. No contraindication to deep vein thrombosis (DVT) prophylaxis (Z78.9: Other specified health status) - ordered SCDs, continue heparin subcutaneous bid Orders: heparin, 5,000 unit(s) = 1 mL, Injection, SubCutaneous, BID for 30 day(s), Stop date 06/09/23 20:59:00 EDT, Routine, Start date 05/10/23 21:00:00 EDT, 05/10/23 11:16:00 EDT lisinopril, 5 mg = 1 tab(s), Tab, Oral, BID, Routine, Start date 05/10/23 11:11:00 EDT, 05/10/23 11:11:00 EDT nystatin topical, 1 torito, Powder, Topical, QID, Routine, Start date 05/10/23 13:00:00 EDT Automated Diff Basic Metabolic Panel CBC w/ Auto Diff CBC w/ Auto Diff eGFR Occupational Therapy Evaluate Patient, Develop a Plan of Care and Implement Plan Physical Therapy Evaluate Patient, Develop a Plan of Care and Implement Plan Addendum by Ck RILEY MD May 10, 2023 11:22:49 EDT pt with CKD III on admission, no GIOVANNY Extracted from: Title:ANES Post-operative Note - General Author: Gino Yates Jr., DO Date:05/09/23 Plan Transfer/Discharge: Transfer/Discharge Discharge when meets criteria ( From PACU to Ambulatory Surgery Unit, and To home ). Extracted from: Title:Urology Consult Note Author:JAILENE CHISHOLM, Yue Mcdermott Date:05/09/23 Impression and Plan Impression: #1. She has a high-grade obstruction in her distal left ureter from a ureteral calculus approximately 4 to 5 mm in size. This is causing pain nausea vomiting leukocytosis and GIOVANNY. She is diabetic and she needs to get unobstructed. 2. Nonobstructing nephrolithiasis. Plan: #1. I agree with the IV antibiotics and fluid resuscitation. 2. I am adding her on to the OR schedule semi-urgently today for cystoscopy and left stent placement with possible definitive stone manipulation. Over 30 minutes of clinical time was spent talking with the ER doctor, the patient, the hospitalist and reviewing the patient's CT scan and chart. Thank you for letting me take part in her care Extracted from: Title:ANES Pre-operative Note - Adult Author:Gino Gonzales Jr., DO Date:05/09/23 Plan [place] [employer] Anesthesiologists (ASA) physical status classification: Class III, E. Anesthetic Preoperative Plan: Anesthesia General. Extracted from: Title:Admission H & P Author:Margareth DANIELS MD te:05/09/23 73-year-old white female pas t medical history obesity, hypertension, hyperlipidemia, diabetes type 2, CAD, s/p CABG, and nephrolithiasis who presented to emergency room with a left flank pain. She has been complaining of since 4 AM. Sharp pain in nature. The pain radiated into her lower abdomen. It is 10/10 intensity. Associated with nausea and vomiting. She denies having fever or chills. No dysuria or hematuria. CT abdomen showed obstructing left kidney stone with left hydronephrosis. She was admitted to the hospital for observation. IMP 1. Kidney stone on left side (N20.0: Calculus of kidney) 24-year-old observation N.p.o. Normal saline at 75 cc/h CT abdomen and Pelvis MILD LEFT-SIDED HYDROURETERONEPHROSIS SECONDARY TO A 4 MM CALCULUS WITHIN THE DISTAL LEFT URETER. They are less likely ADDITIONAL BILATERAL NONOBSTRUCTING RENAL CALCULI. Morphine 4 mg every 4 hours as needed pain Neurology consult Plan for cystoscopy and possible stent today 2. Hydronephrosis, left (N13.30: Unspecified hydronephrosis) As above 3. ARF (acute renal failure) (N17.9: Acute kidney failure, unspecified) Secondary to obstructive kidney stone and dehydration strict input output Normal saline 75 cc BMP in the morning 4. HTN (hypertension) (I10: Essential (primary) hypertension) Hold lisinopril Resume Lopressor 5. Diabetes type 2, controlled (E11.9: Type 2 diabetes mellitus without complications) Accu-Chek ACHS Sliding scale Hold metformin 6. Hyperlipemia (E78.5: Hyperlipidemia, unspecified) Resume Lipitor 7. CAD in [place] artery (I25.10: Atherosclerotic heart disease of [place] coronary artery without angina pectoris) Resume Lopressor aspirin 8. Obesity (E66.9: Obesity, unspecified) Lifestyle modification Orders: ceftriaxone + Sodium Chloride 0.9% intravenous solution 50 mL, 1,000 mg = 1 EA, Injection, IV Piggyback, Daily, Routine, Start date 05/10/23 9:00:00 EDT, 100 mL/hr, Infuse over 30 minute(s) glucose, 50 mL, Soln-IV, IV Push, Once PRN Blood glucose, STAT, Start date 05/09/23 12:09:00 EDT insulin lispro, 0-10 Unit(s), Injection-Insulin, SubCutaneous, QIDACHS, Routine, Start date 05/09/23 16:30:00 EDT morphine, 2 mg = 1 mL, Injection, IV Push, q4hr PRN Pain for 5 day(s), Stop date 05/14/23 11:54:00 EDT, Routine, Start date 05/09/23 11:55:00 EDT, 05/09/23 11:55:00 EDT ondansetron, 4 mg = 2 mL, Injection, IV Push, q6hr PRN Nausea, Routine, Start date 05/09/23 11:53:00 EDT, 05/09/23 11:53:00 EDT Sodium Chloride 0.9% intravenous solution 1,000 mL, 1,000 mL, IV, 75 mL/hr, Routine, Start date 05/09/23 11:53:00 EDT, 13.3 hour(s), Total volume (mL): 1,000, 90.4 kg, 1.99, m2 Hypoglycemia Protocol Responsive Patient Hypoglycemia Protocol Unresponsive Patient Intake and Output Notify Provider Vital Signs Notify Provider Vital Signs NPO Diet Place in Status Resuscitation Status - Full Routine Capillary Glucose POC Saline Lock Convert From IV Up ad Tami Vital Signs Weight Extracted from: Title:ED Note Author:Lazara Larios PA-C Date:05/09/23 1. Hydroureteronephrosis (N1 3.30: Unspecified hydronephrosis) 2. Ureterolithiasis (N20.1: Calculus of ureter) 3. Intractable nausea and vomiting (R11.2: Nausea with vomiting, unspecified) 4. Hyperglycemia (R73.9: Hyperglycemia, unspecified) 5. GIOVANNY (acute kidney injury) (N17.9: Acute kidney failure, unspecified) Orders: ceftriaxone + Sodium Chloride 0.9% intravenous solution 50 mL, 1,000 mg = 1 EA, IV Piggyback, Once, Stop date 05/09/23 11:43:00 EDT, STAT, Start date 05/09/23 11:43:00 EDT, 100 mL/hr, Infuse over 30 minute(s), 05/09/23 11:43:00 EDT ondansetron, 4 mg = 2 mL, Injection, IV Push, Once, Stop date 05/09/23 9:15:00 EDT, STAT, Start date 05/09/23 9:15:00 EDT, 05/09/23 9:15:00 EDT promethazine, 12.5 mg = 0.5 mL, Injection, IV Push, Once, Stop date 05/09/23 11:31:00 EDT, STAT, Start date 05/09/23 11:31:00 EDT, 05/09/23 11:31:00 EDT Sodium Chloride 0.9% intravenous solution, 1,000 mL, Soln-IV, IV, Once, Stop date 05/09/23 8:36:00 EDT, STAT, Start date 05/09/23 8:36:00 EDT, Infuse over 61, minute(s) Automated Diff Basic Metabolic Panel CBC w/ Auto Diff CT Abdomen/Pelvis w/o Contrast ECG 12 Lead Adult ED Cardiac Monitoring eGFR Hepatic Function Panel Lactic Acid Lipase Level NPO Diet PT & PTT Saline Lock Insert Troponin 0 Hr. UA With Cult Reflex Urine Culture Future Appointments Appointment Date:05/17/2023 01:30:00 PM Scheduled Provider:Glynn DENT MD Location:[facility] Appointment Type:URO Office Visit Appointment Date:05/24/2023 01:45:00 PM Scheduled Provider:Wendy Gold MD Location:[facility] Appointment Type:URO Office Visit Diagnostic Tests Pending * Calculi Analysis Urinary 05/09/23 Future Scheduled Tests Laboratory* Basic Metabolic Panel 06/26/22 Radiology* CTA Abdomen 01/24/24 [facility]09-12-2023 NoteCRM entered the room to discuss dc planning. PCP, DME and insurance discussed. Patient is alert andinvolved in plan of care. Contact information provided and whiteboard updated. Pt will dc today no needs. CRM to follow.[facility]:Result Comment: Electronically Signed By: Rayne Carpenter\.br\Date and Time Signed: 05/11/23 13:40 [id number] Hospital Discharge instructions Follow Up Care 05/11/2023 08:20:52 With:Glynn DENT MD, URL Address: [facility] [address] [place] [address]- [phone] When: Unknown [facility] 09-12-2023 NoteBarberton Citizens HospitalComment on above:Result Comment: Electronically Signed By: Ck RILEY MD\.br\Date and Time Signed: 05/11/23 08:39 [id number] NoteAttempted PT Evaluation, but pt reports she is still Independent but performs slowly . Pt denies needing PT services. No evaluation givenBarberton [facility]09-10-2023 [facility]:Result Comment: Electronically Signed By: JEREMIAH CHISHOLM, Margareth\.br\Date and Time Signed: 05/09/23 12:[id number] Hospital Discharge instructions Follow Up Care 05/09/2023 08:14:22 With:ALBERTINA ARNDT Address: [address] [place] [phone]- Business (1) When:05/17/2023 09:30:00 With:Glynn DENT Address: [facility] [address] [place] [phone]- Business (1) When:05/17/2023 13:30:00 [facility]07-31-2023 Miscellaneous Notes* Letter - Coordinator, Mammography - 03/29/2023 8:29 AM EDT March 30, 2023 PID: [id number] Shahana Grace [address] [place] [address] Dear Ms. Grace, We are pleased to inform you that the results of your recent breast imaging exam on 03/26/2023 are normal. Early detection of cancer is very important. We also understand recommendations regarding breast cancer screening are controversial. Please discuss with your primary care provider which strategy is best for you and whether a mammogram is right for you. Your imaging studies and report will be kept on file at [facility] as part of your permanent medical record and are available for your continuing care. Thank you for allowing us to help in meeting your health care needs. Sincerely, Dr. Costa Interpreting Radiologist [facility] (Normal over 40) documented in this encounterK[facility]07-28-2023 NoteHNO ID: [id number] Author: Izabela Cardona I, RT(R) Service: Radiology Author Type: Technologist Type: Progress Notes Filed: 03/26/2023 1:51 PM Note Text: Radiology Service Progress Note PATIENT NAME: Shahana Grace DATE OF SERVICE: March 26, 2023 TIME: 1:50 PM PATIENT IDENTITY VERIFICATION COMPLETED USING TWO (2) IDENTIFIERS: Name and Date of confirmed by patient verbally and Name and Date of confirmed by identification band. FALL SCREENING: Has the patient had 2 falls in the last year or 1 fall with injury or currently using an Ambulatory Assistive Device (Walker, Cane, Wheelchair, Crutches, etc.)? No PATIENT GENDER DATA: Female. status: : No status: NO. PATIENT RELEVANT IMPLANT DATA REVIEWED: Not Applicable RADIOLOGY DEPARTMENT: Mammography PERIPHERAL IV DATA: Not applicable SIGNED BY: RT Mar(R) March 26, 2023 1:50 [id number] Evaluation note* Encounter Date Diagnosis Assessment Notes Treatment Notes Treatment Clinical Notes Feb, Encounter for screening mammogram for malignant neoplasm of breast (ICD-10 - Z12.31) [facility] Other [id number] History of Present illness Narrative* Izabela Cardona I, RT(R) - 03/26/2023 1:20 PM EDT Radiology Service Progress Note PATIENT NAME: Shahana Grace DATE OF SERVICE: March 26, 2023 TIME: 1:50 PM PATIENT IDENTITY VERIFICATION COMPLETED USING TWO (2) IDENTIFIERS: Name and Date of confirmedby patient verbally and Name and Date of confirmed by identification band. FALL SCREENING: Has the patient had 2 falls in the last year or 1 fall with injury or currently using an Ambulatory Assistive Device (Walker, Cane, Wheelchair, Crutches, etc.)? No PATIENT GENDER DATA: Female. status: : No status: NO. PATIENT RELEVANT IMPLANT DATA REVIEWED: Not Applicable RADIOLOGY DEPARTMENT: Mammography PERIPHERAL IV DATA: Not applicable SIGNED BY: RT Mar(R) March 26, 2023 1:50 PM documented in this encounterK[facility]03-28-2023 Evaluation note* Encounter Date Diagnosis Assessment Notes Treatment Notes Treatment Clinical Notes Oct, Urinary tract infection, site not specified (ICD-10 - N39.0) Oct, Hematuria, unspecified (ICD-10 - R31.9) [employer] Other 03-18-2023 Evaluation + Plan noteExtracted from: Title:ED Note Author:Blaire Myers DO Date :11/14/22 Acute UTI (N39.0: Urinary tr act infection, site not specified) Benign paroxysmal positional vertigo (H81.10: Benign paroxysmal vertigo, unspecified ear) Closed head injury (S09.90XA: Unspecified injury of head, initial encounter) Dehydration (E86.0: Dehydration) Scalp abrasion (S00.01XA: Abrasion of scalp, initial encounter) Orders: bacitracin topical, 1 torito, Ointment, Topical, Once, Stop date 11/14/22 2:07:00 EDT, STAT, Start date 11/14/22 2:07:00 EDT cephalexin, 500 mg = 1 cap(s), Oral, TID, X 5 day(s), # 15 cap(s), Refills(s) 0, Pharmacy: [facility], 157, cm, 11/13/22 23:40:00 EDT, Height/Length Dosing, 83.2, kg, 11/13/22 23:40:00 EDT, Weight Dosing cephalexin, 500 mg = 1 cap(s), Cap, Oral, Once, Stop date 11/14/22 2:04:00 EDT, STAT, Start date 11/14/22 2:04:00 EDT, 11/14/22 2:04:00 EDT meclizine, 12.5 mg = 1 tab(s), Oral, TID, PRN for dizziness, # 15 tab(s), Refills(s) 0, Pharmacy: [facility], 157, cm, 11/13/22 23:40:00 EDT, Height/Length Dosing, 83.2, kg, 11/13/22 23:40:00 EDT, Weight Dosing meclizine, 25 mg = 2 tab(s), Tab, Oral, Once, Stop date 11/13/22 23:34:00 EDT, STAT, Start date 11/13/22 23:34:00 EDT, 11/13/22 23:34:00 EDT Sodium Chloride 0.9% intravenous solution, Soln-IV, Misc, Once, Stop date 11/13/22 23:42:33 EDT, Physician Stop, 11/13/22 23:42:33 EDT Sodium Chloride 0.9% intravenous solution, 500 mL, Soln-IV, IV, Once, Stop date 11/13/22 23:33:00 EDT, STAT, Start date 11/13/22 23:33:00 EDT, 500 mL/hr, Infuse over 1, hour(s) tetanus/diphtheria/pertussis, acel (Tdap), 0.5 mL, Injection, Intramuscular-Immunization, Once, Stop date 11/13/22 23:33:00 EDT, STAT, Start date 11/13/22 23:33:00 EDT Automated Diff Basic Metabolic Panel CBC w/ Auto Diff Consult to General Surgery CT Head or Brain w/o Contrast CT Spine Cervical w/o Contrast ECG 12 Lead Adult ED Cardiac Monitoring eGFR Hepatic Function Panel Lactic Acid Lipase Level Oxygen Therapy PT & PTT Pulse Oximetry Continuous Saline Lock Insert Troponin UA With Cult Reflex Urine Culture Future Appointments Appointment Date:11/17/2022 10:00:00 AM Scheduled Provider: [facility] Type:US Abdominal/Pelvis () Appointment Date:02/08/2023 12:30:00 PM Scheduled Provider:Wendy Gold MD Location:[facility] Appointment Type:URO Office Visit Diagnostic Tests Pending * Urine Culture 11/14/22 Future Scheduled Tests Laboratory* PTH Intact 11/28/22 * Basic Metabolic Panel 06/26/22 * Basic Metabolic Panel 11/28/22 * Uric Acid 11/28/22 Radiology* XR Abdomen 1 View 11/17/21 * XR Abdomen 1 View 12/12/22 * US Renal 11/17/22 * CTA Abdomen 01/24/24 [facility]03-18-2023 Hospital Discharge instructions Patient Education 11/14/2022 02:43:38 Vertigo, Odns-bd-Rhwp Vertigo Vertigo is the feeling that you or the things around you are moving when they are not. This feelingcan come and go at any time. Vertigo often goes away on its own. This condition can be dangerous ifit happens when you are doing activities like driving or working with machines. Your doctor will do tests to find the cause of your vertigo. These tests will also help your doctordecide on the best treatment for you. Follow these instructions at home: Eating and drinking Drink enough fluid to keep your pee (urine) pale yellow. Do not drink alcohol. Activity Return to your normal activities as told by your doctor. Ask your doctor what activities are safe for you. In the morning, first sit up on the side of the bed. When you feel okay, stand slowly while you hold onto something until you know that your balance is fine. Move slowly. Avoid sudden body or head movements or certain positions, as told by your doctor. Use a cane if you have trouble standing or walking. Sit down right away if you feel dizzy. Avoid doing any tasks or activities that can cause danger to you or others if you get dizzy. Avoid bending down if you feel dizzy. Place items in your home so that they are easy for you to reach without leaning over. Do not drive or use heavy machinery if you feel dizzy. General instructions Take apgo-ubw-puwuarh and prescription medicines only as told by your doctor. Keep all follow-up visits as told by your doctor. This is important. Contact a doctor if: Your medicine does not help your vertigo. You have a fever. Your problems get worse or you have new symptoms. Your family or friends see changes in your behavior. The feeling of being sick to your stomach gets worse. Your vomiting gets worse. You lose feeling (have numbness) in part of your body. You feel prickling and tingling in a part of your body. Get help right away if: You have trouble moving or talking. You are always dizzy. You pass out (faint). You get very bad headaches. You feel weak in your hands, arms, or legs. You have changes in your hearing. You have changes in how you see (vision). You get a stiff neck. Bright light starts to bother you. Summary Vertigo is the feeling that you or the things around you are moving when they are not. Your doctor will do tests to find the cause of your vertigo. You may be told to avoid some tasks, positions, or movements. Contact a doctor if your medicine is not helping, or if you have a fever, new symptoms, or a changein behavior. Get help right away if you get very bad headaches, or if you have changes in how you speak, hear, or see. This information is not intended to replace advice given to you by your health care provider. Make sure you discuss any questions you have with your health care provider. Document Released: 05/25/2009 Document Revised: 07/10/2019 Document Reviewed: 07/10/2019 [employer] Patient Education 2020 [employer]. 11/14/2022 02:43:38 Urinary Tract Infection, Adult, Aasu-ed-Npne Urinary Tract Infection, Adult A urinary tract infection (UTI) is an infection of any part of the urinary tract. The urinary tractincludes: The kidneys. The ureters. The bladder. The urethra. These organs make, store, and get rid of pee (urine) in the body. What are the causes? This is caused by germs (bacteria) in your genital area. These germs grow and cause swelling (inflammation) of your urinary tract. What increases the risk? You are more likely to develop this condition if: You have a small, thin tube (catheter) to drain pee. You cannot control when you pee or poop (incontinence). You are female, and: ?You use these methods to prevent : ?A medicine that kills sperm (spermicide). ?A device that blocks sperm (diaphragm). ?You have low levels of a female hormone (estrogen). ?You are . You have genes that add to your risk. You are sexually active. You take antibiotic medicines. You have trouble peeing because of: ?A prostate that is bigger than normal, if you are male. ?A blockage in the part of your body that drains pee from the bladder (urethra). ?A kidney stone. ?A nerve condition that affects your bladder (neurogenic bladder). ?Not getting enough to drink. ?Not peeing often enough. You have other conditions, such as: ?Diabetes. ?A weak disease-fighting system (immune system). ?Sickle cell disease. ?Gout. ?Injury of the spine. What are the signs or symptoms? Symptoms of this condition include: Needing to pee right away (urgently). Peeing often. Peeing small amounts often. Pain or burning when peeing. Blood in the pee. Pee that smells bad or not like normal. Trouble peeing. Pee that is cloudy. Fluid coming from the vagina, if you are female. Pain in the belly or lower back. Other symptoms include: Throwing up (vomiting). No urge to eat. Feeling mixed up (confused). Being tired and grouchy (irritable). A fever. Watery poop (diarrhea). How is this treated? This condition may be treated with: Antibiotic medicine. Other medicines. Drinking enough water. Follow these instructions at home: Medicines Take pqxl-uku-macqila and prescription medicines only as told by your doctor. If you were prescribed an antibiotic medicine, take it as told by your doctor. Do not stop taking it even if you start to feel better. General instructions Make sure you: ?Pee until your bladder is empty. ?Do not hold pee for a long time. ?Empty your bladder after sex. ?Wipe from front to back after pooping if you are a female. Use each tissue one time when you wipe. Drink enough fluid to keep your pee pale yellow. Keep all follow-up visits as told by your doctor. This is important. Contact a doctor if: You do not get better after 1 2 days. Your symptoms go away and then come back. Get help right away if: You have very bad back pain. You have very bad pain in your lower belly. You have a fever. You are sick to your stomach (nauseous). You are throwing up. Summary A urinary tract infection (UTI) is an infection of any part of the urinary tract. This condition is caused by germs in your genital area. There are many risk factors for a UTI. These include having a small, thin tube to drain pee and notbeing able to control when you pee or poop. Treatment includes antibiotic medicines for germs. Drink enough fluid to keep your pee pale yellow. This information is not intended to replace advice given to you by your health care provider. Make sure you discuss any questions you have with your health care provider. Document Released: 02/01/2009 Document Revised: 08/03/2019 Document Reviewed: 02/23/2019 [employer] Patient Education 2020 [employer]. 11/14/2022 02:43:38 Head Injury, Adult, Bncw-gv-Kfvd Head Injury, Adult There are many types of head injuries. They can be as minor as a bump. Some head injuries can be worse. Worse injuries include: A strong hit to the head that shakes the brain back and forth causing damage (concussion). A bruise (contusion) of the brain. This means there is bleeding in the brain that can cause swelling. A cracked skull (skull fracture). Bleeding in the brain that gathers, gets thick (makes a clot), and forms a bump (hematoma). Most problems from a head injury come in the first 24 hours. However, you may still have side effects up to 7 10 days after your injury. It is important to watch your condition for any changes. You may need to be watched in the emergency department or urgent care, or you may need to stay in the hospital. What are the causes? There are many possible causes of a head injury. A serious head injury may be caused by: A car accident. Bicycle or motorcycle accidents. Sports injuries. Falls. What are the signs or symptoms? Symptoms of a head injury include a bruise, bump, or bleeding where the injury happened. Other physical symptoms may include: Headache. Feeling sick to your stomach (nauseous) or vomiting. Dizziness. Feeling tired. Being uncomfortable around bright lights or loud noises. Shaking movements that you cannot control (seizures). Trouble being woken up. Passing out (fainting). Mental or emotional symptoms may include: Feeling grumpy or cranky. Confusion and memory problems. Having trouble paying attention or concentrating. Changes in eating or sleeping habits. Feeling worried or nervous (anxious). Feeling sad (depressed). How is this treated? Treatment for this condition depends on how severe the injury is and the type of injury you have. The main goal is to prevent complications and to allow the brain time to heal. Mild head injury If you have a mild head injury, you may be sent home and treatment may include: Being watched. A responsible adult should stay with you for 24 hours after your injury and check onyou often. Physical rest. Brain rest. Pain medicines. Severe head injury If you have a severe head injury, treatment may include: Being watched closely. This includes hospitalization with frequent physical exams. Medicines to: ?Help with pain. ?Prevent shaking movements that you cannot control. ?Help with brain swelling. Using a machine that helps you breathe (ventilator). Treatments to manage the swelling inside the brain. Brain surgery. This may be needed to: ?Remove a blood clot. ?Stop the bleeding. ?Remove a part of the skull. This allows room for the brain to swell. Follow these instructions at home: Activity Rest. Avoid activities that are hard or tiring. Make sure you get enough sleep. Limit activities that need a lot of thought or attention, such as: ?Watching TV. ?Playing memory games and puzzles. ?Job-related work or homework. ?Working on the computer, social media, and texting. Avoid activities that could cause another head injury until your doctor says it is okay. This includes playing sports. Having another head injury, especially before the first one has healed, can be dangerous. Ask your doctor when it is safe for you to go back to your normal activities, such as work or school. Ask your doctor for a ozeh-po-myfi plan for slowly going back to your normal activities. Ask your doctor when you can drive, ride a bicycle, or use heavy machinery. Do not do these activities if you are dizzy. Lifestyle Do not drink alcohol until your doctor says it is okay. Do not use drugs. If it is harder than usual to remember things, write them down. If you are easily distracted, try to do one thing at a time. Talk with family members or close friends when making important decisions. Tell your friends, family, a trusted coworker, and liner worker about your injury, symptoms, and limits (restrictions). Have them watch for any problems that are new or getting worse. General instructions Take goml-nfp-anbqrey and prescription medicines only as told by your doctor. Have someone stay with you for 24 hours after your head injury. This person should watch you for any changes in your symptoms and be ready to get help. Keep all follow-up visits as told by your doctor. This is important. How is this prevented? Work on your balance and strength. This can help you avoid falls. Wear a seatbelt when you are in a moving vehicle. Wear a helmet when you: ?Ride a bicycle. ?Ski. ?Do any other sport or activity that has a risk of injury. If you drink alcohol: ?Limit how much you use to: ?0 1 drink a day for women. ?0 2 drinks a day for men. ?Be aware of how much alcohol is in your drink. In the [place] one drink equals one 12 oz bottle of beer (355 mL), one 5 oz glass of wine (148 mL), or one 1 oz glass of hard liquor (44 mL). Make your home safer by: ?Getting rid of clutter from the floors and stairs. This includes things that can make you trip. ?Using grab bars in bathrooms and handrails by stairs. ?Placing non-slip mats on floors and in bathtubs. ?Putting more light in dim areas. Get help right away if: You have: ?A very bad headache that is not helped by medicine. ?Trouble walking or weakness in your arms and legs. ?Clear or bloody fluid coming from your nose or ears. ?Changes in how you see (vision). ?Shaking movements that you cannot control. You lose your balance. You vomit. The black centers of your eyes (pupils) change in size. Your speech is slurred. Your dizziness gets worse. You pass out. You are sleepier than normal and have trouble staying awake. Your symptoms get worse. These symptoms may be an emergency. Do not wait to see if the symptoms will go away. Get medical help right away. Call your local emergency services (911 in the [place] Do not drive yourself to the hospital. Summary There are many types of head injuries. They can be as minor as a bump. Some head injuries can be worse Treatment for this condition depends on how severe the injury is and the type of injury you have. Ask your doctor when it is safe for you to go back to your normal activities, such as work or school. To prevent a head injury, wear a seat belt in a car, wear a helmet when you use a a bicycle, limit your alcohol use, and make your home safer. This information is not intended to replace advice given to you by your health care provider. Make sure you discuss any questions you have with your health care provider. Document Released: 07/29/2009 Document Revised: 12/07/2019 Document Reviewed: 09/08/2019 [employer] Patient Education 2020 [employer] 11/14/2022 02:43:38 Dehydration, Elderly, Znql-yu-Qnhh Dehydration Dehydration is when there is not enough fluid or water in your body. This happens when you lose more fluids than you take in. People who are age 65 or older have a higher risk of getting dehydrated. Dehydration can range from mild to very bad. It should be treated right away to keep it from getting very bad. Symptoms of mild dehydration may include: Thirst. Dry lips. Slightly dry mouth. Dry, warm skin. Dizziness. Symptoms of moderate dehydration may include: Very dry mouth. Muscle cramps. Dark pee (urine). Pee may be the color of tea. Your body making less pee. Your eyes making fewer tears. Heartbeat that is uneven or faster than normal (palpitations). Headache. Light-headedness, especially when you stand up from sitting. Fainting (syncope). Symptoms of very bad dehydration may include: Changes in skin, such as: ?Cold and clammy skin. ?Blotchy (mottled) or pale skin. ?Skin that does not quickly return to normal after being lightly pinched and let go (poor skin turgor). Changes in body fluids, such as: ?Feeling very thirsty. ?Your eyes making fewer tears. ?Not sweating when body temperature is high, such as in hot weather. ?Your body making very little pee. Changes in vital signs, such as: ?Weak pulse. ?Pulse that is more than 100 beats a minute when you are sitting still. ?Fast breathing. ?Low blood pressure. Other changes, such as: ?Sunken eyes. ?Cold hands and feet. ?Confusion. ?Lack of energy (lethargy). ?Trouble waking up from sleep. ?Short-term weight loss. ?Unconsciousness. Follow these instructions at home: If told by your doctor, drink an ORS: ?Make an ORS by using instructions on the package. ?Start by drinking small amounts, about cup (120 mL) every 5 10 minutes. ?Slowly drink more until you have had the amount that your doctor said to have. Drink enough clear fluid to keep your pee clear or pale yellow. If you were told to drink an ORS, finish the ORS first, then start slowly drinking clear fluids. Drink fluids such as: ?Water. Do not drink only water by itself. Doing that can make the salt (sodium) level in your bodyget too low (hyponatremia). ?Ice chips. ?Fruit juice that you have added water to (diluted). ?Low-calorie sports drinks. Avoid: ?Alcohol. ?Drinks that have a lot of sugar. These include high-calorie sports drinks, fruit juice that does not have water added, and soda. ?Caffeine. ?Foods that are greasy or have a lot of fat or sugar. Take mcim-tey-gjxdnvp and prescription medicines only as told by your doctor. Do not take salt tablets. Doing that can make the salt level in your body get too high (hypernatremia). Eat foods that have minerals (electrolytes). Examples include bananas, oranges, potatoes, tomatoes,and spinach. Keep all follow-up visits as told by your doctor. This is important. Contact a doctor if: You have belly (abdominal) pain that: ?Gets worse. ?Stays in one area (localizes). You have a rash. You have a stiff neck. You get angry or annoyed more easily than normal (irritability). You are more sleepy than normal. You have a harder time waking up than normal. You feel: ?Weak. ?Dizzy. ?Very thirsty. Get help right away if: You have symptoms of very bad dehydration. You cannot drink fluids without throwing up (vomiting). Your symptoms get worse with treatment. You have a fever. You have a very bad headache. You are throwing up or having watery poop (diarrhea) and it: ?Gets worse. ?Does not go away. You have diarrhea for more than 24 hours. You have blood or something green (bile) in your throw-up. You have blood in your poop (stool). This may cause poop to look black and tarry. You have not peed in 6 8 hours. You have peed (urinated) only a small amount of very dark pee during 6 8 hours. You pass out (faint). Your heart rate when you are sitting still is more than 100 beats a minute. You have trouble breathing. This information is not intended to replace advice given to you by your health care provider. Make sure you discuss any questions you have with your health care provider. Document Released: 08/04/2012 Document Revised: 07/29/2018 Document Reviewed: 10/09/2016 [employer] Patient Education 2020 [employer]. Follow Up Care 11/13/2022 23:08:03 With:ALBERTINA ARNDT Address: [address] [place], [place] [id number] [facility] (1) When:11/17/2022 Comments:Take the antibiotics 3 times a day until you have completed the course. You can use the meclizine every 8 hours as needed for dizziness. You can use antibiotic ointment 2-3 times per day as needed for the wound on your head. Please follow-up with your primary care doctor in the next 2 to 3 days. Please return to the ED for any new or worsening symptoms. [facility]03-02-2023 Hospital Discharge instructions Patient Education 10/29/2022 09:23:21 Kidney Stones, Edvh-nb-Kcvo Kidney Stones Kidney stones are rock-like masses that form inside of the kidneys. Kidneys are organs that make pee (urine). A kidney stone may move into other parts of the urinary tract, including: The tubes that connect the kidneys to the bladder (ureters). The bladder. The tube that carries urine out of the body (urethra). Kidney stones can cause very bad pain and can block the flow of pee. The stone usually leaves your body (passes) through your pee. You may need to have a doctor take out the stone. What are the causes? Kidney stones may be caused by: A condition in which certain glands make too much parathyroid hormone (primary hyperparathyroidism). A buildup of a type of crystals in the bladder made of a chemical called uric acid. The body makes uric acid when you eat certain foods. Narrowing (stricture) of one or both of the ureters. A kidney blockage that you were born with. Past surgery on the kidney or the ureters, such as gastric bypass surgery. What increases the risk? You are more likely to develop this condition if: You have had a kidney stone in the past. You have a family history of kidney stones. You do not drink enough water. You eat a diet that is high in protein, salt (sodium), or sugar. You are overweight or very overweight (obese). What are the signs or symptoms? Symptoms of a kidney stone may include: Pain in the side of the belly, right below the ribs (flank pain). Pain usually spreads (radiates) to the groin. Needing to pee often or right away (urgently). Pain when going pee (urinating). Blood in your pee (hematuria). Feeling like you may vomit (nauseous). Vomiting. Fever and chills. How is this treated? Treatment depends on the size, location, and makeup of the kidney stones. The stones will often pass out of the body through peeing. You may need to: Drink more fluid to help pass the stone. In some cases, you may be given fluids through an IV tube put into one of your veins at the hospital. Take medicine for pain. Make changes in your diet to help keep kidney stones from coming back. Sometimes, medical procedures are needed to remove a kidney stone. This may involve: A procedure to break up kidney stones using a beam of light (laser) or shock waves. Surgery to remove the kidney stones. Follow these instructions at home: Medicines Take bhul-mbr-wcwhdzg and prescription medicines only as told by your doctor. Ask your doctor if the medicine prescribed to you requires you to avoid driving or using heavy machinery. Eating and drinking Drink enough fluid to keep your pee pale yellow. You may be told to drink at least 8 10 glasses of water each day. This will help you pass the stone. If told by your doctor, change your diet. This may include: ?Limiting how much salt you eat. ?Eating more fruits and vegetables. ?Limiting how much meat, poultry, fish, and eggs you eat. Follow instructions from your doctor about eating or drinking restrictions. General instructions Collect pee samples as told by your doctor. You may need to collect a pee sample: ?24 hours after a stone comes out. ?8 12 weeks after a stone comes out, and every 6 12 months after that. Strain your pee every time you pee (urinate), for as long as told. Use the strainer that your doctor recommends. Do not throw out the stone. Keep it so that it can be tested by your doctor. Keep all follow-up visits as told by your doctor. This is important. You may need follow-up tests. How is this prevented? To prevent another kidney stone: Drink enough fluid to keep your pee pale yellow. This is the best way to prevent kidney stones. Eat healthy foods. Avoid certain foods as told by your doctor. You may be told to eat less protein. Stay at a healthy weight. Where to find more information National Kidney Foundation (NKF): www.kidney.org [facility] (UCF): www.urologyhealth.org Contact a doctor if: You have pain that gets worse or does not get better with medicine. Get help right away if: You have a fever or chills. You get very bad pain. You get new pain in your belly (abdomen). You pass out (faint). You cannot pee. Summary Kidney stones are rock-like masses that form inside of the kidneys. Kidney stones can cause very bad pain and can block the flow of pee. The stones will often pass out of the body through peeing. Drink enough fluid to keep your pee pale yellow. This information is not intended to replace advice given to you by your health care provider. Make sure you discuss any questions you have with your health care provider. Document Released: 02/01/2009 Document Revised: 01/02/2020 Document Reviewed: 01/02/2020 [employer] Patient Education 2019 [employer]. Follow Up Care 10/13/2022 15:07:33 With:Asif CHISHOLM, ONUR Julio, URO Address: When: Unknown [facility] 12-21-2022 Hospital Discharge instructions Patient Education 08/19/2022 12:09:01 Kidney Stones, Obfj-ym-Uwpp Kidney Stones Kidney stones are rock-like masses that form inside of the kidneys. Kidneys are organs that make pee (urine). A kidney stone may move into other parts of the urinary tract, including: The tubes that connect the kidneys to the bladder (ureters). The bladder. The tube that carries urine out of the body (urethra). Kidney stones can cause very bad pain and can block the flow of pee. The stone usually leaves your body (passes) through your pee. You may need to have a doctor take out the stone. What are the causes? Kidney stones may be caused by: A condition in which certain glands make too much parathyroid hormone (primary hyperparathyroidism). A buildup of a type of crystals in the bladder made of a chemical called uric acid. The body makes uric acid when you eat certain foods. Narrowing (stricture) of one or both of the ureters. A kidney blockage that you were born with. Past surgery on the kidney or the ureters, such as gastric bypass surgery. What increases the risk? You are more likely to develop this condition if: You have had a kidney stone in the past. You have a family history of kidney stones. You do not drink enough water. You eat a diet that is high in protein, salt (sodium), or sugar. You are overweight or very overweight (obese). What are the signs or symptoms? Symptoms of a kidney stone may include: Pain in the side of the belly, right below the ribs (flank pain). Pain usually spreads (radiates) to the groin. Needing to pee often or right away (urgently). Pain when going pee (urinating). Blood in your pee (hematuria). Feeling like you may vomit (nauseous). Vomiting. Fever and chills. How is this treated? Treatment depends on the size, location, and makeup of the kidney stones. The stones will often pass out of the body through peeing. You may need to: Drink more fluid to help pass the stone. In some cases, you may be given fluids through an IV tube put into one of your veins at the hospital. Take medicine for pain. Make changes in your diet to help keep kidney stones from coming back. Sometimes, medical procedures are needed to remove a kidney stone. This may involve: A procedure to break up kidney stones using a beam of light (laser) or shock waves. Surgery to remove the kidney stones. Follow these instructions at home: Medicines Take tvrj-xki-wmnxhpn and prescription medicines only as told by your doctor. Ask your doctor if the medicine prescribed to you requires you to avoid driving or using heavy machinery. Eating and drinking Drink enough fluid to keep your pee pale yellow. You may be told to drink at least 8 10 glasses of water each day. This will help you pass the stone. If told by your doctor, change your diet. This may include: ?Limiting how much salt you eat. ?Eating more fruits and vegetables. ?Limiting how much meat, poultry, fish, and eggs you eat. Follow instructions from your doctor about eating or drinking restrictions. General instructions Collect pee samples as told by your doctor. You may need to collect a pee sample: ?24 hours after a stone comes out. ?8 12 weeks after a stone comes out, and every 6 12 months after that. Strain your pee every time you pee (urinate), for as long as told. Use the strainer that your doctor recommends. Do not throw out the stone. Keep it so that it can be tested by your doctor. Keep all follow-up visits as told by your doctor. This is important. You may need follow-up tests. How is this prevented? To prevent another kidney stone: Drink enough fluid to keep your pee pale yellow. This is the best way to prevent kidney stones. Eat healthy foods. Avoid certain foods as told by your doctor. You may be told to eat less protein. Stay at a healthy weight. Where to find more information National Kidney Foundation (NKF): www.kidney.org [facility] (UCF): www.urologyhealth.org Contact a doctor if: You have pain that gets worse or does not get better with medicine. Get help right away if: You have a fever or chills. You get very bad pain. You get new pain in your belly (abdomen). You pass out (faint). You cannot pee. Summary Kidney stones are rock-like masses that form inside of the kidneys. Kidney stones can cause very bad pain and can block the flow of pee. The stones will often pass out of the body through peeing. Drink enough fluid to keep your pee pale yellow. This information is not intended to replace advice given to you by your health care provider. Make sure you discuss any questions you have with your health care provider. Document Released: 02/01/2009 Document Revised: 01/02/2020 Document Reviewed: 01/02/2020 [employer] Patient Education 2020 [employer]. Follow Up Care 07/13/2022 14:03:46 With:Asif CHISHOLM, ONUR Julio, URO Address: [address] [place] [phone] When:Within 2 Month(s) [facility] 11-14-2022 Hospital Discharge instructions Patient Education 07/13/2022 13:41:06 Dietary Guidelines to Help Prevent Kidney Stones Dietary Guidelines to Help Prevent Kidney Stones Kidney stones are deposits of minerals and salts that form inside your kidneys. Your risk of developing kidney stones may be greater depending on your diet, your lifestyle, the medicines you take, and whether you have certain medical conditions. Most people can reduce their chances of developing kidney stones by following the instructions below. Depending on your overall health and the type of kidney stones you tend to develop, your dietitian may give you more specific instructions. What are tips for following this plan? Reading food labels Choose foods with no salt added or low-salt labels. Limit your sodium intake to less than 1500 mg per day. Choose foods with calcium for each meal and snack. Try to eat about 300 mg of calcium at each meal.Foods that contain 200 500 mg of calcium per serving include: ?8 oz (237 ml) of milk, fortified nondairy milk, and fortified fruit juice. ?8 oz (237 ml) of kefir, yogurt, and soy yogurt. ?4 oz (118 ml) of tofu. ?1 oz of cheese. ?1 cup (300 g) of dried figs. ?1 cup (91 g) of cooked broccoli. ?1 3 oz can of sardines or mackerel. Most people need 1000 to 1500 mg of calcium each day. Talk to your dietitian about how much calciumis recommended for you. Shopping Buy plenty of fresh fruits and vegetables. Most people do not need to avoid fruits and vegetables, even if they contain nutrients that may contribute to kidney stones. When shopping for convenience foods, choose: ?Whole pieces of fruit. ?Premade salads with dressing on the side. ?Low-fat fruit and yogurt smoothies. Avoid buying frozen meals or prepared deli foods. Look for foods with live cultures, such as yogurt and kefir. Cooking Do not add salt to food when cooking. Place a salt shaker on the table and allow each person to addhis or her own salt to taste. Use vegetable protein, such as beans, textured vegetable protein (TVP), or tofu instead of meat in pasta, casseroles, and soups. Meal planning Eat less salt, if told by your dietitian. To do this: ?Avoid eating processed or premade food. ?Avoid eating fast food. Eat less animal protein, including cheese, meat, poultry, or fish, if told by your dietitian. To dothis: ?Limit the number of times you have meat, poultry, fish, or cheese each week. Eat a diet free of meat at least 2 days a week. ?Eat only one serving each day of meat, poultry, fish, or seafood. ?When you prepare animal protein, cut pieces into small portion sizes. For most meat and fish, one serving is about the size of one deck of cards. Eat at least 5 servings of fresh fruits and vegetables each day. To do this: ?Keep fruits and vegetables on hand for snacks. ?Eat 1 piece of fruit or a handful of berries with breakfast. ?Have a salad and fruit at lunch. ?Have two kinds of vegetables at dinner. Limit foods that are high in a substance called oxalate. These include: ?Spinach. ?Rhubarb. ?Beets. ?Potato chips and kyrgyz fries. ?Nuts. If you regularly take a diuretic medicine, make sure to eat at least 1 2 fruits or vegetables high in potassium each day. These include: ?Avocado. ?Banana. ?Hitchita, prune, carrot, or tomato juice. ?Baked potato. ?Cabbage. ?Beans and split peas. General instructions Drink enough fluid to keep your urine clear or pale yellow. This is the most important thing you can do. Talk to your health care provider and dietitian about taking daily supplements. Depending on your health and the cause of your kidney stones, you may be advised: ?Not to take supplements with vitamin C. ?To take a calcium supplement. ?To take a daily probiotic supplement. ?To take other supplements such as magnesium, fish oil, or vitamin B6. Take all medicines and supplements as told by your health care provider. Limit alcohol intake to no more than 1 drink a day for non women and 2 drinks a day for men. One drink equals 12 oz of beer, 5 oz of wine, or 1 oz of hard liquor. Lose weight if told by your health care provider. Work with your dietitian to find strategies and an eating plan that works best for you. What foods are not recommended? Limit your intake of the following foods, or as told by your dietitian. Talk to your dietitian about specific foods you should avoid based on the type of kidney stones and your overall health. Grains Breads. Bagels. Rolls. Baked goods. Salted crackers. Cereal. Pasta. Vegetables Spinach. Rhubarb. Beets. Canned vegetables. Pickles. Olives. Meats and other protein foods Nuts. Nut butters. Large portions of meat, poultry, or fish. Salted or cured meats. Deli meats. Hotdogs. Sausages. Dairy Cheese. Beverages Regular soft drinks. Regular vegetable juice. Seasonings and other foods Seasoning blends with salt. Salad dressings. Canned soups. Soy sauce. Ketchup. Barbecue sauce. Canned pasta sauce. Casseroles. Pizza. Lasagna. Frozen meals. Potato chips. Bahamian fries. Summary You can reduce your risk of kidney stones by making changes to your diet. The most important thing you can do is drink enough fluid. You should drink enough fluid to keep your urine clear or pale yellow. Ask your health care provider or dietitian how much protein from animal sources you should eat eachday, and also how much salt and calcium you should have each day. This information is not intended to replace advice given to you by your health care provider. Make sure you discuss any questions you have with your health care provider. Document Released: 12/11/2011 Document Revised: 12/06/2019 Document Reviewed: 07/27/2017 [employer] Patient Education 2020 [employer]. Follow Up Care 11/26/2021 11:40:44 With:Asif CHISHOLM, Wendy [place] URL, URO Address: When: Unknown [facility] 11-07-2022 Hospital Discharge instructions Patient Education 07/06/2022 16:05:00 EU - Cystoscopy with Stent Removal Discharge Instructions (Custom) Cystoscopy with Stent Removal Voiding after the procedure: there may be some pain, burning, urgency, frequency and blood tinged urine following the procedure. These symptoms usually resolve within 2-5 days. Drink the amount of fluid it takes to keep the urine pink to yellow or clear in color. Drinking enough water and fluids will help to ease any discomfort after your procedure. If you are having problems that seem out of the ordinary, please call. If unable to contact your physician and you feel it is an emergency, go to the nearest emergency room or call 911 Diet you may resume your normal diet. Activity you may resume your normal activities Call if you have a fever over 100 degrees. Follow Up Care 06/22/2022 11:57:26 With:Wendy Gold Address:Unknown When: Unknown Comments:Please follow-up with Dr Gold next week. You can speak with her about performing some testing to tryto figure out why you are making some many stones.Please finish the antibiotic if you have not already done so. Have a great day. [facility]10-21-2022 Evaluation + Plan noteExtracted from: Title:Discharge Note Author:Margareth DANIELS MD Misbah e:06/19/22 Good Discharge To, Anticipated II - Home with responsible caregiver Discharged to - Home independently Home Discharge Diet(s): Renal (06/19/22 10:34:00) Prescriptions glipiZIDE 5 mg Tab, 5 mg= 1 tab(s), Oral, Daily lisinopril 5 mg Tab, 5 mg= 1 tab(s), Oral, BID Metoprolol tartrate 50 mg Tab, 50 mg= 1 tab(s), Oral, BID oxybutynin 5 mg Tab, 5 mg= 1 tab(s), Oral, BID, 1 refills, Investigating Plavix 75 mg Tab, 75 mg= 1 tab(s), Oral, Daily Home atorvastatin 40 mg Tab, 40 mg= 1 tab(s), Oral, Daily Ozempic 2 mg/1.5 mL (1 mg dose) subcutaneous solution, 1 mg, SubCutaneous, qWeek Plavix 75 mg Tab, 75 mg= 1 tab(s), Oral, MonTuThFrSaSu solifenacin 5 mg Tab, 5 mg= 1 tab(s), Oral, Daily With When Contact Information Orestes JACQUES [address] [place], [place] [address] [place] [phone]- Business (1) Additional Instructions: scope and removal of the stent under local anesthesia within a couple weeks or so.This office will call you to schedule this. ALBERTINA LINDQUIST[address] [phone]- Business (1) Additional Instructions: Only if needed. Renal Colic, Xsyt-ni-Wejb Lithotripsy Laser Therapy for Kidney Stones Kidney Stones, Crar-av-Altl Dietary Guidelines to Help Prevent Kidney Stones Discharge time >30 min Extracted from: Title:ANES POSTOP Author:Johnny Bruce DO Date: 06/17/22 Plan Transfer/ Discharge: Patient can be discharged from PACU when criteria met. Condition good. Extracted from: Title:Urology Consult and H&P 2 Author:Orestes JACQUES MD Date:06/17/22 Impression and Plan Diagnosis Acute renal failure (HZA97-AS N17.9, Discharge, Medical). Hydronephrosis with ureteral calculus (MYF98-SU N13.2, Working, Medical). Kidney stones (BMC24-AC N20.0, Working, Medical). Complaint of Flank pain (PNED [id number], Reason For Visit, Nursing). Leukocytosis (MBR58-XA D72.829, Discharge, Medical). UTI (urinary tract infection) (GJX81-HD N39.0, Discharge, Medical). Course: Worsening, Reviewed CT scan, viewed CT scan report, viewed urinalysis, viewed laboratory data. Discussed with anesthesia. Discussed with the ER physician earlier today Discussed with the patient extensively. She has 2 obstructing calculi in the right upper ureter which is causing hydronephrosis and most likely the beginning of pyelonephritis given her laboratory data. I feel that we should proceed expeditiously to the operating room for cystoscopy and drainage of the right kidney with a ureteral stent. Avoidance of sepsis would certainly be desirable. Gentle right retrograde pyelogram will be performed. I informed the patient that the stones are too high to retrieve today especially given the clinical situation. She understand that this will be a staged procedure and that the actual treatment of the stones may either involve lithotripsy at a later date externally versus a laser lithotripsy which she has had previously. She understands she is an increased anesthesia risk secondary to multiple comorbidities and she wishes to proceed. She signed the consent form. I believe she already has a follow-up appointment with my partner Dr Gold within the next several months and hopefully discussion we will move forward with metabolic work-up. She agrees with the plan as outlined. Thank for consultation.. Extracted from: Title:ANES PREOP Author:Johnny Bruce DO Date: Plan [place] [employer]hesi[employer] (ASA) physical status classification: Class III, E. Anesthetic Preoperative Plan Anesthesia: General. . Anesthetic plan, risks, benefits, and alternatives discussed with the patient and/or family. Patient verbalized understanding. Anesthesia risks, benefits, alternatives discussed with patient and/or family/guardians. Risks discussed including but not limited to risks of nerve damage, injury, bleeding requiring transfusion, postop pulmonary complications, nausea, vomiting, sore throat, dental/oral injury, increase/decrease in HR or blood pressure, hoarseness, muscle or joint pain, heart complications discussed. Pt aware and desires to proceed. Extracted from: Title:Admission H & P Author:Margareth DANIELS MD te:06/17/22 1. Kidney stone on right gauri e (N20.0: Calculus of kidney) 23 observation Patient will not require more than 2 nights in the hospital CBC with differential daily Urine culture Morphine 2 mg every 4 hours as needed Rocephin 1 g daily BMP daily Urology consult 2. UTI (urinary tract infection) (N39.0: Urinary tract infection, site not specified) Urine culture Rocephin 1 g daily 3. Leukocytosis (D72.829: Elevated white blood cell count, unspecified) CBC with differential daily 4. Acute renal failure (N17.9: Acute kidney failure, unspecified) Secondary to obstruction kidney stones and hypovolemia Normal saline 75 cc/h Urology was consulted BMP daily 5. Diabetes type 2, controlled (E11.9: Type 2 diabetes mellitus without complications) Accu-Chek ACH S Insulin sliding scale Hold metformin 6. HTN (hypertension) (I10: Essential (primary) hypertension) Hold lisinopril 7. Hyperlipemia (E78.5: Hyperlipidemia, unspecified) Resume Lipitor 8. CAD (coronary artery disease) (I25.10: Atherosclerotic heart disease of [place] coronary artery without angina pectoris) Continue Plavix Lopressor 9. Obesity (E66.9: Obesity, unspecified) Lifestyle modification 10. DVT prophylaxis (Z29.9: Encounter for prophylactic measures, unspecified) SCD Future Appointments Appointment Date:07/13/2022 01:00:00 PM Scheduled Provider:Wendy Gold MD Location:[facility] Appointment Type:URO Office Visit Diagnostic Tests Pending * Calculi Analysis Urinary 06/17/22 Future Scheduled Tests Laboratory* Basic Metabolic Panel 06/26/22 Radiology* XR Abdomen 1 View 11/17/21 * CV Peripheralvascular 10/14/21 * CTA Abdomen 01/24/24 [facility]10-21-2022 Hospital Discharge instructions Patient Education 06/19/2022 10:34:29 Renal Colic, Yslq-lv-Enlh Renal Colic Renal colic is pain that is caused by a kidney stone. The pain can be sharp and very bad. It may befelt in the back, belly, side (flank), or groin. It can cause nausea. Renal colic can come and go. Follow these instructions at home: Medicines Take mmfl-sdj-bymezed and prescription medicines only as told by your doctor. Do not drive or use heavy machinery while taking prescription pain medicine. Eating and drinking Drink enough fluid to keep your pee (urine) pale yellow. You may be told to drink at least 8 10 glasses of water each day. Follow instructions from your doctor. If told, change your diet. This may include eating: ?Less salt (sodium). Eat less than 2 grams (2,000 mg) of salt per day. ?Less meat, poultry, fish, and eggs. ?More fruits and vegetables. ?Try not to eat spinach, rhubarb, sweet potatoes, or nuts. Follow instructions from your doctor about what foods and drinks to avoid. General instructions Keep all follow-up visits as told by your doctor. This is important. Collect pee samples as told by your doctor. Strain your pee every time you pee, as told by your doctor. Use the strainer that your doctor recommends. Do not throw out the kidney stone after passing it. Keep the stone so it can be tested by your doctor. Contact a doctor if: You have a fever or chills. Your pee smells bad or looks cloudy. You have pain or burning when you pee. Get help right away if: The pain in your side (flank) or your groin suddenly gets worse. You get confused. You pass out. Summary Renal colic is pain that is caused by a kidney stone. Take aova-kwt-pvwqkny and prescription medicines only as told by your doctor. Drink enough fluid to keep your pee pale yellow. You may be told to drink at least 8 10 glasses of water each day. Follow instructions from your doctor. Strain your pee every time you pee, as told by your doctor. Use the strainer that your doctor recommends. Do not throw out the kidney stone after passing it. Keep the stone so it can be tested by your doctor. This information is not intended to replace advice given to you by your health care provider. Make sure you discuss any questions you have with your health care provider. Document Released: 02/01/2009 Document Revised: 09/13/2018 Document Reviewed: 09/13/2018 [employer] Patient Education 2020 [employer]. 06/19/2022 10:34:28 Lithotripsy Lithotripsy Lithotripsy is a treatment that can sometimes help eliminate kidney stones and the pain that they cause. A form of lithotripsy, also known as extracorporeal shock wave lithotripsy, is a nonsurgical procedure that crushes a kidney stone with shock waves. These shock waves pass through your body and focus on the kidney stone. They cause the kidney stone to break up while it is still in the urinary tract. This makes it easier for the smaller pieces of stone to pass in the urine. Tell a health care provider about: Any allergies you have. All medicines you are taking, including vitamins, herbs, eye drops, creams, and wvdm-ofz-fznkqlr medicines. Any blood disorders you have. Any surgeries you have had. Any medical conditions you have. Whether you are or may be . Any problems you or family members have had with anesthetic medicines. What are the risks? Generally, this is a safe procedure. However, problems may occur, including: Infection. Bleeding of the kidney. Bruising of the kidney or skin. Scarring of the kidney, which can lead to: ?Increased blood pressure. ?Poor kidney function. ?Return (recurrence) of kidney stones. Damage to other structures or organs, such as the liver, colon, spleen, or pancreas. Blockage (obstruction) of the the tube that carries urine from the kidney to the bladder (ureter). Failure of the kidney stone to break into pieces (fragments). What happens before the procedure? Staying hydrated Follow instructions from your health care provider about hydration, which may include: Up to 2 hours before the procedure you may continue to drink clear liquids, such as water, clear fruit juice, black coffee, and plain tea. Eating and drinking restrictions Follow instructions from your health care provider about eating and drinking, which may include: 8 hours before the procedure stop eating heavy meals or foods such as meat, fried foods, or fatty foods. 6 hours before the procedure stop eating light meals or foods, such as toast or cereal. 6 hours before the procedure stop drinking milk or drinks that contain milk. 2 hours before the procedure stop drinking clear liquids. General instructions Plan to have someone take you home from the hospital or clinic. Ask your health care provider about: ?Changing or stopping your regular medicines. This is especially important if you are taking diabetes medicines or blood thinners. ?Taking medicines such as aspirin and ibuprofen. These medicines and other NSAIDs can thin your blood. Do not take these medicines for 7 days before your procedure if your health care provider instructs you not to. You may have tests, such as: ?Blood tests. ?Urine tests. ?Imaging tests, such as a CT scan. What happens during the procedure? To lower your risk of infection: ?Your health care team will wash or sanitize their hands. ?Your skin will be washed with soap. An IV tube will be inserted into one of your veins. This tube will give you fluids and medicines. You will be given one or more of the following: ?A medicine to help you relax (sedative). ?A medicine to make you fall asleep (general anesthetic). A water-filled cushion may be placed behind your kidney or on your abdomen. In some cases you may be placed in a tub of lukewarm water. Your body will be positioned in a way that makes it easy to target the kidney stone. A flexible tube with holes in it (stent) may be placed in the ureter. This will help keep urine flowing from the kidney if the fragments of the stone have been blocking the ureter. An X-ray or ultrasound exam will be done to locate your stone. Shock waves will be aimed at the stone. If you are awake, you may feel a tapping sensation as the shock waves pass through your body. The procedure may vary among health care providers and hospitals. What happens after the procedure? You may have an X-ray to see whether the procedure was able to break up the kidney stone and how much of the stone has passed. If large stone fragments remain after treatment, you may need to have a second procedure at a later time. Your blood pressure, heart rate, breathing rate, and blood oxygen level will be monitored until themedicines you were given have worn off. You may be given antibiotics or pain medicine as needed. If a stent was placed in your ureter during surgery, it may stay in place for a few weeks. You may need strain your urine to collect pieces of the kidney stone for testing. You will need to drink plenty of water. Do not drive for 24 hours if you were given a sedative. Summary Lithotripsy is a treatment that can sometimes help eliminate kidney stones and the pain that they cause. A form of lithotripsy, also known as extracorporeal shock wave lithotripsy, is a nonsurgical procedure that crushes a kidney stone with shock waves. Generally, this is a safe procedure. However, problems may occur, including damage to the kidney orother organs, infection, or obstruction of the tube that carries urine from the kidney to the bladder (ureter). When you go home, you will need to drink plenty of water. You may be asked to strain your urine to collect pieces of the kidney stone for testing. This information is not intended to replace advice given to you by your health care provider. Make sure you discuss any questions you have with your health care provider. Document Released: 08/13/2001 Document Revised: 11/27/2019 Document Reviewed: 07/07/2017 [employer] Patient Education 2020 [employer]. 06/19/2022 10:34:26 Laser Therapy for Kidney Stones Laser Therapy for Kidney Stones Laser therapy for kidney stones is a procedure to break up small, hard mineral deposits that form in the kidney (kidney stones). The procedure is done using a device that produces a focused beam of light (laser). The laser breaks up kidney stones into pieces that are small enough to be passed out of the body through urination or removed from the body during the procedure. You may need laser therapy if you have kidney stones that are painful or block your urinary tract. This procedure is done by inserting a tube (ureteroscope) into your kidney through the urethral opening. The urethra is the part of the body that drains urine from the bladder. In women, the urethra opens above the vaginal opening. In men, the urethra opens at the tip of the penis. The ureteroscopeis inserted through the urethra, and surgical instruments are moved through the bladder and the muscular tube that connects the kidney to the bladder (ureter) until they reach the kidney. Tell a health care provider about: Any allergies you have. All medicines you are taking, including vitamins, herbs, eye drops, creams, and uufe-qgm-nfgqktx medicines. Any problems you or family members have had with anesthetic medicines. Any blood disorders you have. Any surgeries you have had. Any medical conditions you have. Whether you are or may be . What are the risks? Generally, this is a safe procedure. However, problems may occur, including: Infection. Bleeding. Allergic reactions to medicines. Damage to the urethra, bladder, or ureter. Urinary tract infection (UTI). Narrowing of the urethra (urethral stricture). Difficulty passing urine. Blockage of the kidney caused by a fragment of kidney stone. What happens before the procedure? Medicines Ask your health care provider about: ?Changing or stopping your regular medicines. This is especially important if you are taking diabetes medicines or blood thinners. ?Taking medicines such as aspirin and ibuprofen. These medicines can thin your blood. Do not take these medicines unless your health care provider tells you to take them. ?Taking rfgd-uoe-fvowobq medicines, vitamins, herbs, and supplements. Eating and drinking Follow instructions from your health care provider about eating and drinking, which may include: 8 hours before the procedure stop eating heavy meals or foods, such as meat, fried foods, or fatty foods. 6 hours before the procedure stop eating light meals or foods, such as toast or cereal. 6 hours before the procedure stop drinking milk or drinks that contain milk. 2 hours before the procedure stop drinking clear liquids. Staying hydrated Follow instructions from your health care provider about hydration, which may include: Up to 2 hours before the procedure you may continue to drink clear liquids, such as water, clear fruit juice, black coffee, and plain tea. General instructions You may have a physical exam before the procedure. You may also have tests, such as imaging tests and blood or urine tests. If your ureter is too narrow, your health care provider may place a soft, flexible tube (stent) inside of it. The stent may be placed days or weeks before your laser therapy procedure. Plan to have someone take you home from the hospital or clinic. If you will be going home right after the procedure, plan to have someone stay with you for 24 hours. Do not use any products that contain nicotine or tobacco for at least 4 weeks before the procedure.These products include cigarettes, e-cigarettes, and chewing tobacco. If you need help quitting, ask your health care provider. Ask your health care provider: ?How your surgical site will be marked or identified. ?What steps will be taken to help prevent infection. These may include: ?Removing hair at the surgery site. ?Washing skin with a germ-killing soap. ?Taking antibiotic medicine. What happens during the procedure? An IV will be inserted into one of your veins. You will be given one or more of the following: ?A medicine to help you relax (sedative). ?A medicine to numb the area (local anesthetic). ?A medicine to make you fall asleep (general anesthetic). A ureteroscope will be inserted into your urethra. The ureteroscope will send images to a video screen in the operating room to guide your surgeon to the area of your kidney that will be treated. A small, flexible tube will be threaded through the ureteroscope and into your bladder and ureter, up to your kidney. The laser device will be inserted into your kidney through the tube. Your surgeon will pulse the laser on and off to break up kidney stones. A surgical instrument that has a tiny wire basket may be inserted through the tube into your kidneyto remove the pieces of broken kidney stone. The procedure may vary among health care providers and hospitals. What happens after the procedure? Your blood pressure, heart rate, breathing rate, and blood oxygen level will be monitored until youleave the hospital or clinic. You will be given pain medicine as needed. You may continue to receive antibiotics. You may have a stent temporarily placed in your ureter. Do not drive for 24 hours if you were given a sedative during your procedure. You may be given a strainer to collect any stone fragments that you pass in your urine. Your healthcare provider may have these tested. Summary Laser therapy for kidney stones is a procedure to break up kidney stones into pieces that are smallenough to be passed out of the body through urination or removed during the procedure. Follow instructions from your health care provider about eating and drinking before the procedure. During the procedure, the ureteroscope will send images to a video screen to guide your surgeon to the area of your kidney that will be treated. Do not drive for 24 hours if you were given a sedative during your procedure. This information is not intended to replace advice given to you by your health care provider. Make sure you discuss any questions you have with your health care provider. Document Released: 09/11/2016 Document Revised: 04/27/2019 Document Reviewed: 04/27/2019 [employer] Patient Education 2020 [employer] 06/19/2022 10:34:24 Kidney Stones, Zrsd-wv-Cfrw Kidney Stones Kidney stones are rock-like masses that form inside of the kidneys. Kidneys are organs that make pee (urine). A kidney stone may move into other parts of the urinary tract, including: The tubes that connect the kidneys to the bladder (ureters). The bladder. The tube that carries urine out of the body (urethra). Kidney stones can cause very bad pain and can block the flow of pee. The stone usually leaves your body (passes) through your pee. You may need to have a doctor take out the stone. What are the causes? Kidney stones may be caused by: A condition in which certain glands make too much parathyroid hormone (primary hyperparathyroidism). A buildup of a type of crystals in the bladder made of a chemical called uric acid. The body makes uric acid when you eat certain foods. Narrowing (stricture) of one or both of the ureters. A kidney blockage that you were born with. Past surgery on the kidney or the ureters, such as gastric bypass surgery. What increases the risk? You are more likely to develop this condition if: You have had a kidney stone in the past. You have a family history of kidney stones. You do not drink enough water. You eat a diet that is high in protein, salt (sodium), or sugar. You are overweight or very overweight (obese). What are the signs or symptoms? Symptoms of a kidney stone may include: Pain in the side of the belly, right below the ribs (flank pain). Pain usually spreads (radiates) to the groin. Needing to pee often or right away (urgently). Pain when going pee (urinating). Blood in your pee (hematuria). Feeling like you may vomit (nauseous). Vomiting. Fever and chills. How is this treated? Treatment depends on the size, location, and makeup of the kidney stones. The stones will often pass out of the body through peeing. You may need to: Drink more fluid to help pass the stone. In some cases, you may be given fluids through an IV tube put into one of your veins at the hospital. Take medicine for pain. Make changes in your diet to help keep kidney stones from coming back. Sometimes, medical procedures are needed to remove a kidney stone. This may involve: A procedure to break up kidney stones using a beam of light (laser) or shock waves. Surgery to remove the kidney stones. Follow these instructions at home: Medicines Take kbqo-egu-ubfeiyw and prescription medicines only as told by your doctor. Ask your doctor if the medicine prescribed to you requires you to avoid driving or using heavy machinery. Eating and drinking Drink enough fluid to keep your pee pale yellow. You may be told to drink at least 8 10 glasses of water each day. This will help you pass the stone. If told by your doctor, change your diet. This may include: ?Limiting how much salt you eat. ?Eating more fruits and vegetables. ?Limiting how much meat, poultry, fish, and eggs you eat. Follow instructions from your doctor about eating or drinking restrictions. General instructions Collect pee samples as told by your doctor. You may need to collect a pee sample: ?24 hours after a stone comes out. ?8 12 weeks after a stone comes out, and every 6 12 months after that. Strain your pee every time you pee (urinate), for as long as told. Use the strainer that your doctor recommends. Do not throw out the stone. Keep it so that it can be tested by your doctor. Keep all follow-up visits as told by your doctor. This is important. You may need follow-up tests. How is this prevented? To prevent another kidney stone: Drink enough fluid to keep your pee pale yellow. This is the best way to prevent kidney stones. Eat healthy foods. Avoid certain foods as told by your doctor. You may be told to eat less protein. Stay at a healthy weight. Where to find more information National Kidney Foundation (NKF): www.kidney.org Urology Care Foundation (UCF): www.urologyhealth.org Contact a doctor if: You have pain that gets worse or does not get better with medicine. Get help right away if: You have a fever or chills. You get very bad pain. You get new pain in your belly (abdomen). You pass out (faint). You cannot pee. Summary Kidney stones are rock-like masses that form inside of the kidneys. Kidney stones can cause very bad pain and can block the flow of pee. The stones will often pass out of the body through peeing. Drink enough fluid to keep your pee pale yellow. This information is not intended to replace advice given to you by your health care provider. Make sure you discuss any questions you have with your health care provider. Document Released: 02/01/2009 Document Revised: 01/02/2020 Document Reviewed: 01/02/2020 [employer] Patient Education 2020 [employer] 06/19/2022 10:34:21 Dietary Guidelines to Help Prevent Kidney Stones Dietary Guidelines to Help Prevent Kidney Stones Kidney stones are deposits of minerals and salts that form inside your kidneys. Your risk of developing kidney stones may be greater depending on your diet, your lifestyle, the medicines you take, and whether you have certain medical conditions. Most people can reduce their chances of developing kidney stones by following the instructions below. Depending on your overall health and the type of kidney stones you tend to develop, your dietitian may give you more specific instructions. What are tips for following this plan? Reading food labels Choose foods with no salt added or low-salt labels. Limit your sodium intake to less than 1500 mg per day. Choose foods with calcium for each meal and snack. Try to eat about 300 mg of calcium at each meal.Foods that contain 200 500 mg of calcium per serving include: ?8 oz (237 ml) of milk, fortified nondairy milk, and fortified fruit juice. ?8 oz (237 ml) of kefir, yogurt, and soy yogurt. ?4 oz (118 ml) of tofu. ?1 oz of cheese. ?1 cup (300 g) of dried figs. ?1 cup (91 g) of cooked broccoli. ?1 3 oz can of sardines or mackerel. Most people need 1000 to 1500 mg of calcium each day. Talk to your dietitian about how much calciumis recommended for you. Shopping Buy plenty of fresh fruits and vegetables. Most people do not need to avoid fruits and vegetables, even if they contain nutrients that may contribute to kidney stones. When shopping for convenience foods, choose: ?Whole pieces of fruit. ?Premade salads with dressing on the side. ?Low-fat fruit and yogurt smoothies. Avoid buying frozen meals or prepared deli foods. Look for foods with live cultures, such as yogurt and kefir. Cooking Do not add salt to food when cooking. Place a salt shaker on the table and allow each person to addhis or her own salt to taste. Use vegetable protein, such as beans, textured vegetable protein (TVP), or tofu instead of meat in pasta, casseroles, and soups. Meal planning Eat less salt, if told by your dietitian. To do this: ?Avoid eating processed or premade food. ?Avoid eating fast food. Eat less animal protein, including cheese, meat, poultry, or fish, if told by your dietitian. To dothis: ?Limit the number of times you have meat, poultry, fish, or cheese each week. Eat a diet free of meat at least 2 days a week. ?Eat only one serving each day of meat, poultry, fish, or seafood. ?When you prepare animal protein, cut pieces into small portion sizes. For most meat and fish, one serving is about the size of one deck of cards. Eat at least 5 servings of fresh fruits and vegetables each day. To do this: ?Keep fruits and vegetables on hand for snacks. ?Eat 1 piece of fruit or a handful of berries with breakfast. ?Have a salad and fruit at lunch. ?Have two kinds of vegetables at dinner. Limit foods that are high in a substance called oxalate. These include: ?Spinach. ?Rhubarb. ?Beets. ?Potato chips and kyrgyz fries. ?Nuts. If you regularly take a diuretic medicine, make sure to eat at least 1 2 fruits or vegetables high in potassium each day. These include: ?Avocado. ?Banana. ?[place]itchita, prune, carrot, or tomato juice. ?Baked potato. ?Cabbage. ?Beans and split peas. General instructions Drink enough fluid to keep your urine clear or pale yellow. This is the most important thing you can do. Talk to your health care provider and dietitian about taking daily supplements. Depending on your health and the cause of your kidney stones, you may be advised: ?Not to take supplements with vitamin C. ?To take a calcium supplement. ?To take a daily probiotic supplement. ?To take other supplements such as magnesium, fish oil, or vitamin B6. Take all medicines and supplements as told by your health care provider. Limit alcohol intake to no more than 1 drink a day for non women and 2 drinks a day for men. One drink equals 12 oz of beer, 5 oz of wine, or 1 oz of hard liquor. Lose weight if told by your health care provider. Work with your dietitian to find strategies and an eating plan that works best for you. What foods are not recommended? Limit your intake of the following foods, or as told by your dietitian. Talk to your dietitian about specific foods you should avoid based on the type of kidney stones and your overall health. Grains Breads. Bagels. Rolls. Baked goods. Salted crackers. Cereal. Pasta. Vegetables Spinach. Rhubarb. Beets. Canned vegetables. Pickles. Olives. Meats and other protein foods Nuts. Nut butters. Large portions of meat, poultry, or fish. Salted or cured meats. Deli meats. Hotdogs. Sausages. Dairy Cheese. Beverages Regular soft drinks. Regular vegetable juice. Seasonings and other foods Seasoning blends with salt. Salad dressings. Canned soups. Soy sauce. Ketchup. Barbecue sauce. Canned pasta sauce. Casseroles. Pizza. Lasagna. Frozen meals. Potato chips. Bahamian fries. Summary You can reduce your risk of kidney stones by making changes to your diet. The most important thing you can do is drink enough fluid. You should drink enough fluid to keep your urine clear or pale yellow. Ask your health care provider or dietitian how much protein from animal sources you should eat eachday, and also how much salt and calcium you should have each day. This information is not intended to replace advice given to you by your health care provider. Make sure you discuss any questions you have with your health care provider. Document Released: 12/11/2011 Document Revised: 12/06/2019 Document Reviewed: 07/27/2017 [employer] Patient Education 2020 [employer]. Follow Up Care 06/17/2022 13:29:38 With:Orestes JACQUES Address: [address] [place] [phone] Business (1) When: Unknown Comments:scope and removal of the stent under local anesthesia within a couple weeks or so.This office will call you to schedule this. With:ALBERTINA ARNDT Address: [address] [place] [phone] Business (1) When: Unknown Comments:Only if needed. [facility]06-01-2022 Miscellaneous Notes* Letter - Mammography Coordinator - 01/28/2022 2:40 PM EDT January 28, 2022 PID: [id number] Shahana rGace [address] [place] [address] Dear Ms. Grace, We are pleased to inform you that the results of your recent breast imaging exam on 01/28/2022 are normal. Early detection of cancer is very important. We also understand recommendations regarding breast cancer screening are controversial. Please discuss with your primary care provider which strategy is best for you and whether a mammogram is right for you. Your imaging studies and report will be kept on file at [facility] as part of your permanent medical record and are available for your continuing care. Thank you for allowing us to help in meeting your health care needs. Sincerely, Dr. Green Interpreting Radiologist [facility] (Normal over 40) documented in [facility]22 NoteHNO ID: [id number] Author: RT Gavino(R) Service: ? Author Type: Technologist Type: Progress Notes Filed: 01/28/2022 12:52 PM Note Text: Radiology Service Progress Note PATIENT NAME: Shahana Grace DATE OF SERVICE: January 28, 2022 TIME: 12:51 PM PATIENT IDENTITY VERIFICATION COMPLETED USING TWO (2) IDENTIFIERS: Name and Date of confirmed by patient verbally. FALL SCREENING: Has the patient had 2 falls in the last year or 1 fall with injury or currently using an Ambulatory Assistive Device (Walker, Cane, Wheelchair, Crutches, etc.)? No PATIENT GENDER DATA: Female. status: : No status: NO. PATIENT RELEVANT IMPLANT DATA REVIEWED: Not Applicable RADIOLOGY DEPARTMENT: Mammography PERIPHERAL IV DATA: Not applicable SIGNED BY: RT Gavino(R) January 28, 2022 12:[facility] History of Present illness Narrative* Selena Wu RT(R) - 01/28/2022 12:20 PM EDT Radiology Service Progress Note PATIENT NAME: Shahana Grace DATE OF SERVICE: January 28, 2022 TIME: 12:51 PM PATIENT IDENTITY VERIFICATION COMPLETED USING TWO (2) IDENTIFIERS: Name and Date of confirmedby patient verbally. FALL SCREENING: Has the patient had 2 falls in the last year or 1 fall with injury or currently using an Ambulatory Assistive Device (Walker, Cane, Wheelchair, Crutches, etc.)? No PATIENT GENDER DATA: Female. status: : No status: NO. PATIENT RELEVANT IMPLANT DATA REVIEWED: Not Applicable RADIOLOGY DEPARTMENT: Mammography PERIPHERAL IV DATA: Not applicable SIGNED BY: RT Gavino(R) January 28, 2022 12:51 PM documented in [facility]04[facility]22 Evaluation note* Encounter Date Diagnosis Assessment Notes Treatment Notes Treatment Clinical Notes Nov, Encounter for screening mammogram for malignant neoplasm of breast (ICD-10 - Z12.31) [employer] Other 03-30-2022 Hospital Discharge instructions Patient Education 11/26/2021 11:36:58 Kidney Stones, Rmht-ua-Ajpm Kidney Stones Kidney stones are rock-like masses that form inside of the kidneys. Kidneys are organs that make pee (urine). A kidney stone may move into other parts of the urinary tract, including: The tubes that connect the kidneys to the bladder (ureters). The bladder. The tube that carries urine out of the body (urethra). Kidney stones can cause very bad pain and can block the flow of pee. The stone usually leaves your body (passes) through your pee. You may need to have a doctor take out the stone. What are the causes? Kidney stones may be caused by: A condition in which certain glands make too much parathyroid hormone (primary hyperparathyroidism). A buildup of a type of crystals in the bladder made of a chemical called uric acid. The body makes uric acid when you eat certain foods. Narrowing (stricture) of one or both of the ureters. A kidney blockage that you were born with. Past surgery on the kidney or the ureters, such as gastric bypass surgery. What increases the risk? You are more likely to develop this condition if: You have had a kidney stone in the past. You have a family history of kidney stones. You do not drink enough water. You eat a diet that is high in protein, salt (sodium), or sugar. You are overweight or very overweight (obese). What are the signs or symptoms? Symptoms of a kidney stone may include: Pain in the side of the belly, right below the ribs (flank pain). Pain usually spreads (radiates) to the groin. Needing to pee often or right away (urgently). Pain when going pee (urinating). Blood in your pee (hematuria). Feeling like you may vomit (nauseous). Vomiting. Fever and chills. How is this treated? Treatment depends on the size, location, and makeup of the kidney stones. The stones will often pass out of the body through peeing. You may need to: Drink more fluid to help pass the stone. In some cases, you may be given fluids through an IV tube put into one of your veins at the hospital. Take medicine for pain. Make changes in your diet to help keep kidney stones from coming back. Sometimes, medical procedures are needed to remove a kidney stone. This may involve: A procedure to break up kidney stones using a beam of light (laser) or shock waves. Surgery to remove the kidney stones. Follow these instructions at home: Medicines Take peqo-iwd-ddohbpq and prescription medicines only as told by your doctor. Ask your doctor if the medicine prescribed to you requires you to avoid driving or using heavy machinery. Eating and drinking Drink enough fluid to keep your pee pale yellow. You may be told to drink at least 8 10 glasses of water each day. This will help you pass the stone. If told by your doctor, change your diet. This may include: ?Limiting how much salt you eat. ?Eating more fruits and vegetables. ?Limiting how much meat, poultry, fish, and eggs you eat. Follow instructions from your doctor about eating or drinking restrictions. General instructions Collect pee samples as told by your doctor. You may need to collect a pee sample: ?24 hours after a stone comes out. ?8 12 weeks after a stone comes out, and every 6 12 months after that. Strain your pee every time you pee (urinate), for as long as told. Use the strainer that your doctor recommends. Do not throw out the stone. Keep it so that it can be tested by your doctor. Keep all follow-up visits as told by your doctor. This is important. You may need follow-up tests. How is this prevented? To prevent another kidney stone: Drink enough fluid to keep your pee pale yellow. This is the best way to prevent kidney stones. Eat healthy foods. Avoid certain foods as told by your doctor. You may be told to eat less protein. Stay at a healthy weight. Where to find more information National Kidney Foundation (NKF): www.kidney.org Urology Care Foundation (UCF): www.urologyhealth.org Contact a doctor if: You have pain that gets worse or does not get better with medicine. Get help right away if: You have a fever or chills. You get very bad pain. You get new pain in your belly (abdomen). You pass out (faint). You cannot pee. Summary Kidney stones are rock-like masses that form inside of the kidneys. Kidney stones can cause very bad pain and can block the flow of pee. The stones will often pass out of the body through peeing. Drink enough fluid to keep your pee pale yellow. This information is not intended to replace advice given to you by your health care provider. Make sure you discuss any questions you have with your health care provider. Document Released: 02/01/2009 Document Revised: 01/02/2020 Document Reviewed: 01/02/2020 [employer] Patient Education 2020 [employer]. Follow Up Care 10/27/2021 10:22:19 With:Asif CHISHOLM, ONUR Julio, URO Address: [address] [place] [phone] Business (1) When: Unknown [facility] 02-07-2022 NoteHNO ID: [id number] Author: Garcia Vieyra OD Service: ? Author Type: SENIOR WINDOWS SYSTEMS ADMINISTRATOR Type: Progress Notes Filed: 10/06/2021 10:56 AM Note Text: Encounter Diagnosis ICD-10-CM 1. Regular astigmatism, bilateral H52.223 2. Bilateral presbyopia H52.4 Plan: Patient here for refraction and CL only today. New glasses prescription given. New trial contacts given. Patient states she feels she sees well with spherical MF contacts despite uncorrected astigmatism. Small adjustment made to try out. Wearing the contacts too long during the day, not replacing the contact lenses every month as recommended, sleeping in the lenses, or improper lens care may result in serious eye infections, loss of vision, or even blindness. Use the appropriate care regimen with your contacts as recommended by your doctor. Discontinue contact lens wear and call or return to the office immediately if pain, redness, decreased vision, light sensitivity, or contact lens intolerance develops.[facility] 08-09-2021 NoteHNO ID: [id number] Author: Johnny Crespo MD Service: ? 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 - Advised of importance in blood sugar and blood pressure control in reducing risk of vision loss. - Advised of importance of annual eye exams with sooner follow-up if any new symptoms develop. Return in 1 year Manifest refraction; see drop forger helper for CLs I have confirmed and edited as necessary the relevant ophthalmic history, ROS, and the neuro exam findings as obtained by others. I have seen and examined Shahana Hernandez Sanjay. I have discussed the case and the management of this patient's care with the Resident/Fellow, if applicable. I also have reviewed and agree with the assessment and plan as stated above and agree with all of its relevant components. Johnny Crespo MD, 08/09/2021 12:01 [facility]05-01-2010 History general Narrative - Reported* Type Description Date Medical History 2008 pelvic exam done - [facility] Medical History 2009 mammogram done - [facility] Medical History 2002 colonscopy - [facility] Medical History No stress test Medical History Hgb A1c 5-1-10 (6.3) Medical History Coronary artery disease Medical History myocardial infarction Medical History CHF (05/2021) Medical History Hypertensive urgency (05/2021) Surgical History C-Sections x 2 Surgical History appendectomy Surgical History Median sternotomy 05/24/17 Surgical History Coronary bypass grafting x 4 Hospitalization History as above Hospitalization History [facility]; Hypert ensive urgency 05/2021 [employer] Other Evaluation + Plan note Future Appointments Appointment Date:11/24/2021 09:00:00 AM Scheduled Provider[facility] Follow Up (FT) Appointment Date:11/26/2021 09:45:00 AM Scheduled Provider:Wendy Gold MD Location:[facility] Appointment Type:URO Office Visit Future Scheduled Tests Radiology* XR Abdomen 1 View 11/17/21 * [facility] Appointment Date:11/26/2021 09:45:00 AM Scheduled Provider:Wendy Gold MD Location:[facility] Appointment Type:URO Office Visit Future Scheduled Tests Radiology* XR Abdomen 1 View 11/17/21 * CV [facility]ipheral[facility] Appointment Date:06/01/2022 02:00:00 PM Scheduled Provider:Wendy Gold MD Location:[facility] Appointment Type:URO Office Visit Future Scheduled Tests Radiology* XR Abdomen 1 View 11/17/21 * XR Abdomen 1 View 05/29/22 * US Renal 05/29/22 * CV Peripheralvascular 10/14/21 [facility] evaluation + Plan note Future Appointments Appointment Date:01/12/2022 11:30:00 AM Scheduled Provider:Feroz Cotton [facility] Type:Vascular Follow Up (FT) Appointment Date:06/01/2022 02:00:00 PM Scheduled Provider:Wendy Gold MD Location:[facility] Appointment Type:URO Office Visit Future Scheduled Tests Radiology* XR Abdomen 1 View 11/17/21 * XR Abdomen 1 View 05/29/22 * US Renal 05/29/22 * CV Peripheralvascular [facility] Appointment Date:07/13/2022 01:00:00 PM Scheduled Provider:Wendy Gold MD Location:[facility] Appointment Type:URO Office Visit Future Scheduled Tests Radiology* XR Abdomen 1 View 11/17/21 * CV Peripheralvascular 10/14/21 * CTA Abdomen [facility] Appointment Date:07/13/2022 01:00:00 PM Scheduled Provider:Wendy Gold MD Location:[facility] Appointment Type:URO Office Visit Future Scheduled Tests Laboratory* Basic Metabolic Panel 06/26/22 Radiology* XR Abdomen 1 View 11/17/21 * CV Peripheralvascular 10/14/21 * CTA Abdomen [facility] Appointment Date:08/19/2022 10:45:00 AM Scheduled Provider:Wendy Gold MD Location:[facility] Appointment Type:URO Office Visit Future Scheduled Tests Laboratory* Basic Metabolic Panel 06/26/22 Radiology* XR Abdomen 1 View 11/17/21 * CV Peripheralvascular 10/14/21 * CTA Abdomen 01/24/24 [facility] Evaluation + Plan note Future Appointments Appointment Date:10/14/2022 10:45:00 AM Scheduled Provider:Wendy Gold MD Location:[facility] Appointment Type:URO Office Visit Future Scheduled Tests Laboratory* Basic Metabolic Panel 06/26/22 Radiology* XR Abdomen 1 View 11/17/21 * CV Peripheralvascular 10/14/21 * CTA Abdomen 01/24/24 [facility] evaluation + Plan note Future Appointments Appointment Date:10/29/2022 09:00:00 AM Scheduled Provider:Wendy Gold MD Location:[facility] Appointment Type:URO Office Visit Future Scheduled Tests Laboratory* Basic Metabolic Panel 06/26/22 Radiology* XR Abdomen 1 View 11/17/21 * CTA Abdomen 01/24/24 [facility] evaluation + Plan note Future Appointments Appointment Date:02/08/2023 12:30:00 PM Scheduled Provider:Wendy Gold MD Location:[facility] Appointment Type:URO Office Visit Future Scheduled Tests Laboratory* PTH Intact 11/28/22 * Basic Metabolic Panel 06/26/22 * Basic Metabolic Panel 11/28/22 * Uric Acid 11/28/22 Radiology* XR Abdomen 1 View 11/17/21 * XR Abdomen 1 View 12/12/22 * US Renal 12/12/22 * CTA Abdomen 01/24/24 [facility] Evaluation + Plan note Future Appointments Appointment Date:02/08/2023 12:30:00 PM Scheduled Provider:Wendy Gold MD Location:[facility] Appointment Type:URO Office Visit Future Scheduled Tests Laboratory* PTH Intact 11/28/22 * Basic Metabolic Panel 06/26/22 * Basic Metabolic Panel 11/28/22 * Uric Acid 11/28/22 Radiology* XR Abdomen 1 View 11/17/21 * XR Abdomen 1 View 12/12/22 * [facility] Appointment Date:05/19/2023 09:00:00 AM Scheduled Provider: Location:[facility] Appointment Type:Urology CALL PAT FT Appointment Date:05/25/2023 08:45:00 AM Scheduled Provider: Location:[facility] Appointment Type:Urology FT Future Scheduled Tests Laboratory* Basic Metabolic Panel 06/26/22 Radiology* CTA Abdomen 01/24/24 [facility] evaluation + Plan note Future Appointments Appointment Date:08/19/2023 01:15:00 PM Scheduled Provider:Wendy Gold MD Location:[facility] Appointment Type:URO Office Visit Future Scheduled Tests Laboratory* Basic Metabolic Panel 06/26/22 Radiology* CTA Abdomen 01/24/24 [facility]ments Appointment Date:08/19/2023 01:15:00 PM Scheduled Provider:Wendy Gold MD Location:[facility] Appointment Type:URO Office Visit Future Scheduled Tests Laboratory* Basic Metabolic Panel 06/26/22 Radiology* XR Abdomen 1 View 05/28/23 * CTA Abdomen 01/24/24 [facility] App[facility]ments Appointment Date:08/19/2023 01:15:00 PM Scheduled Provider:Wendy Gold MD Location:[facility] Appointment Type:URO Office Visit Future Scheduled Tests Laboratory* PT & PTT 06/15/23 * BUN 06/15/23 * Creatinine 06/15/23 * Electrolyte Panel 06/15/23 * CBC w/ Auto Diff 06/15/23 Radiology* XR Abdomen 1 View 05/28/23 * CTA Abdomen [facility] App[facility]ments Appointment Date:08/19/2023 01:15:00 PM Scheduled Provider:Wendy Gold MD Location:[facility] Appointment Type:URO Office Visit Future Scheduled Tests Radiology* CTA Abdomen 01/24/24 [facility] Appointments Appointment Date:08/19/2023 01:15:00 PM Scheduled Provider:Wendy Gold MD Location:[facility] Appointment Type:URO Office Visit Diagnostic Tests Pending * Calculi Analysis Urinary 08/05/23 Future Scheduled Tests Radiology* CTA Abdomen 01/24/24 [facility] Other Evaluation noteNo assessment information available [facility] Work Phone: Evaluation note* Diagnosis 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 Work Phone: History of Present illness Narrative* The patient states she has been generally doing poorly since the last visit. Comorbid Illnesses: diabetes mellitus, hypertension and hyperlipidemia. * Symptoms: denies chest pain at rest, denies exertional chest pain, denies dyspnea, worsened fatigue, worsened exercise intolerance, denies palpitations, denies edema, denies orthopnea, worsened dizziness and worsened orthostatic dizziness. * Disease Monitoring: The patient has had a 10 pounds weight loss. * Medications: the patient is adherent with her medication regimen. [facility] Work Phone: History of Present illness Narrative* The patient states she has been generally doing poorly since the last visit. Comorbid Illnesses: diabetes mellitus, hypertension and hyperlipidemia. * Symptoms: denies chest pain at rest, denies exertional chest pain, denies dyspnea, worsened fatigue, worsened exercise intolerance, denies palpitations, denies edema, denies orthopnea, worsened dizziness and worsened orthostatic dizziness. * Disease Monitoring: The patient has had a 10 pounds weight loss. * Medications: the patient is adherent with her medication regimen. [facility] Work Phone: History of Present illness Narrative* The patient states she has been generally doing poorly since the last visit. Comorbid Illnesses: diabetes mellitus, hypertension and hyperlipidemia. * Symptoms: denies chest pain at rest, denies exertional chest pain, denies dyspnea, worsened fatigue, worsened exercise intolerance, denies palpitations, denies edema, denies orthopnea, worsened dizziness and worsened orthostatic dizziness. * Disease Monitoring: The patient has had a 10 pounds weight loss. * Medications: the patient is adherent with her medication regimen. [facility] 250 DO Work Phone: History of Present illness Narrative* The patient states she has been generally doing well since the last visit. Comorbid Illnesses: diabetes mellitus, hypertension and hyperlipidemia. * Symptoms: denies chest pain at rest, denies exertional chest pain, denies dyspnea, improved fatigue, improved exercise intolerance, denies palpitations, denies edema, denies orthopnea, improved dizziness and improved orthostatic dizziness. * Disease Monitoring: [facility] 600 DO Work Phone: Hospital course Narrative No data available for this section [facility] No data available for this section [facility] No data available for this section [facility] (narrative)* Consultation (Routine) - Authorized Specialty Diagnoses / Procedures Referred By Elen t Referred To Contact Cardiac Rehabilitation Diagnoses Atherosclerosis of coronary artery bypass graft of [place] heart without angina pectoris S/P CABG x 4 History of PA (myocardial infarction) Sterling Florian, [address] [facility] [address], [address] [place] [address] Referral ID Status Reason Start Date Expiration Date Visits Requested Visits Authorized [id number] Authorized Specialty Services Required 3 07/27/2024 1 1 * Consultation (Routine) - Authorized Specialty Diagnoses / Procedures Referred By Contac t Referred To Contact Cardiology Diagnoses Atherosclerosis of coronary artery bypass graft of [place] heart without angina pectoris S/P CABG x 4 Procedures Follow Up In Cardiology Sterling Florian DO [address] [place] [address] 2, [address] [place] [address] Sterling Florian DO [address] [place] [address] 2, [address] [address] Referral ID Status Reason Start Date Expiration Date V isits Requested Visits Authorized [id number] Authorized 07/28/2023 07/27/[address] [facility] Work Phone: Summary Purpose Family History No Family History Records FoundUnknown Family Member Name Dates Details No pertinent family history: Mother, Father, Sibling(V49.89, Z78.9) Status:Active Unknown Family Member Name Dates Details No pertinent family history: Mother, Father, Sibling(V49.89, Z78.9) Status:Active Unknown Family Member Name Dates Details No pertinent family history: Mother, Father, Sibling(V49.89, Z78.9) Status:Active Unknown Family Member Name Dates Details No pertinent family history: Mother, Father, Sibling(V49.89, Z78.9) Status:Active Unknown Family Member Name Dates Details No pertinent family history: Mother, Father, Sibling(V49.89, Z78.9) Status:Active Unknown Family Member Name Dates Details No pertinent family history: Mother, Father, Sibling(V49.89, Z78.9) Status:Active Unknown Family Member Name Dates Details No pertinent family history: Mother, Father, Sibling(V49.89, Z78.9) Status:Active Unknown Family Member Name Dates Details No pertinent family history: Mother, Father, Sibling(V49.89, Z78.9) Status:Active Unknown Family Member Name Dates Details No pertinent family history: Mother, Father, Sibling(V49.89, Z78.9) Status:Active Unknown Family Member Name Dates Details No pertinent family history: Mother, Father, Sibling(V49.89, Z78.9) Status:Active Unknown Family Member Name Dates Details No pertinent family history: Mother, Father, Sibling(V49.89, Z78.9) Status:Active Advance Directives No Advanced Directives Records Found Advance Directive Response Recorded Date/ Time Advance Directives No April 3:11pm Advance Directive Response Recorded Date/ Time Advance Directives No April 2:11pm Chief Complaint * I am not feeling good * SHAHANA GRACE is being seen for follow-up of a hospitalization for dyspnea. * Presents today with . * [place] [facility], Echo LVEF 55-60%. Lasix added at discharge. * Home for one month with worsening fatigue, weakness, dizziness, 10 pound weight loss, POH. * No SOB, orthopnea/pnd * No palpitaions * Up stairs can't lead with left leg weakness , new since discharge. * Has 7 and 11 steps at home; prior hospital stay could go up with left leg. * Diarrhea since discharge worse in morning; takes atorvastatin at night. On metformin for number of years. From morning to noon has diarrhea. * I am not feeling good * SHAHANA GRACE is being seen for follow-up of a hospitalization for dyspnea. * Presents today with . * [place] [facility] [place], Echo LVEF 55-60%. Lasix added at discharge. * Home for one month with worsening fatigue, weakness, dizziness, 10 pound weight loss, POH. * No SOB, orthopnea/pnd * No palpitaions * Up stairs can't lead with left leg weakness , new since discharge. * Has 7 and 11 steps at home; prior hospital stay could go up with left leg. * Diarrhea since discharge worse in morning; takes atorvastatin at night. On metformin for number of years. From morning to noon has diarrhea. * I am not feeling good * SHAHANA GRACE is being seen for follow-up of a hospitalization for dyspnea. * Presents today with . * [place] [facility] [place], Echo LVEF 55-60%. Lasix added at discharge. * Home for one month with worsening fatigue, weakness, dizziness, 10 pound weight loss, POH. * No SOB, orthopnea/pnd * No palpitaions * Up stairs can't lead with left leg weakness , new since discharge. * Has 7 and 11 steps at home; prior hospital stay could go up with left leg. * Diarrhea since discharge worse in morning; takes atorvastatin at night. On metformin for number of years. From morning to noon has diarrhea. * I am 85% better * SHAHANA GRACE is being seen for a 2 week follow-up of volume depletion. * Patient presents to [facility] for cardiovascular evaluation. * Patient is ambulatory with steady gait. * Last evaluated in clinic by myself 2 weeks ago. At that time she had symptomatic effective volume depletion. * Lasix stopped, atorvastatin held due to diarrhea. * Labs showed azotemia. * CT of brain completed due to left leg weakness, no acute ischemic events. * Compared to last cardiovascular evaluation, patient reports is doing much better. * Patient denies any hospitalizations or significant changes to interval medical history since last office follow-up. * Activity: can go up stairs, ADLs * Prior angina: back pain, no re-occurence * SHAHANA GRACE is being seen for an annual follow-up of. * 72-year-old female follows up at 1 year and is doing very well she has no cardiovascular complaints, angina, nitrate usage or hospitalizations. * She suffered an inferior PA in 2016 with primary revascularization of the RCA, subsequent four-vessel CABG due to severe left coronary disease. She has done well with for the past 6 years. She has underlying comorbidities to continue to include controlled hypertension, hyperlipidemia and diabetes mellitus. She is intolerant to aspirin but remains on clopidogrel, she also remains on lisinopril andmetoprolol and atorvastatin * Recommendations, continue current therapies, obtain appropriate laboratories, follow-up in 1 year Chief Complaint and Reason for Visit Chief Complaint ^Pain Rt Side Nausea alexander Additional Source Comments INFORMATION SOURCE (unrecogn ized section and content) DATE CREATED AUTHOR 02/22/2018 [facility] DATE CREATED AUTHOR AUTHOR'S ORGANIZ ATION 10/14/2021 [facility] DATE CREATED AUTHOR AUTHOR'S ORGANIZ ATION 01/30/2022 [facility] DATE CREATED AUTHOR AUTHOR'S ORGANIZ ATION 07/29/2022 [facility] DATE CREATED AUTHOR AUTHOR'S ORGANIZ ATION 07/30/2022 [facility] DATE CREATED AUTHOR AUTHOR'S ORGANIZ ATION 03/31/2023 [facility] DATE CREATED AUTHOR AUTHOR'S ORGANIZ ATION 10/08/2023 [facility] DATE CREATED AUTHOR AUTHOR'S ORGANIZ ATION 02/20/2024 [facility] DATE CREATED AUTHOR AUTHOR'S ORGANIZ ATION 02/21/2024 [facility] DATE CREATED AUTHOR AUTHOR'S ORGANIZ ATION 02/22/2024 [facility] DATE CREATED AUTHOR AUTHOR'S ORGANIZ ATION 02/23/2024 [facility] DATE CREATED AUTHOR AUTHOR'S ORGANIZ ATION 02/24/2024 [facility] Source Comments (unrecognize d section and content) In the event this informatio n is protected by the Federal Confidentiality of Alcohol and Drug Abuse Patient Records regulations: The Federal rules restrict any use of the information to criminally investigate or prosecute any alcohol or drug abuse patient.[facility] HealthIn the event this information is protected by the Federal Confidentiality of Alcohol and Drug Abuse Patient Records regulations: The Federal rules restrict any use of the information to criminally investigate or prosecute any alcohol or drug abuse patient.[facility] HealthIn the event this information is protected by the Federal Confidentiality of Alcohol and Drug Abuse Patient Records regulations: The Federal rules restrict any use of the information to criminally investigate or prosecute any alcohol or drug abuse patient.[facility] HealthIn the event this information is protected by the Federal Confidentiality of Alcohol and Drug Abuse Patient Records regulations: The Federal rules restrict any use of the information to criminally investigate or prosecute any alcohol or drug abuse patient.[facility] Care Teams (unrecognized sec tion and content) Chief Contract Officer Relationship Specialty Start Date End Date Albertina Arndt [address] [place] [address] PCP - General Family Practice 11/11/20 Team Status: Active Member Role Status Dates Albertina Arndt DO Primary Care Provider Active Team Status: Active Member Role Status Dates Rudolph Ram D.O. Attending Provider Active Team Status: Inactive Member Role Status Dates Albertina Arndt DO Primary Care Provider, Attending Provi breanna Active Chief Contract Officer Relationship Specialty Start Date End Date Albertina Arndt [address] [place] [address] PCP - General Family Medicine 11/11/20 Chief Contract Officer Relationship Specialty Start Date End Date Albertina Arndt [address] [place] [phone] PCP - General Family Medicine 11/11/20 Chief Contract Officer Relationship Specialty Start Date End Date Albertina [address]ter [address] [place] [address] PCP - General Family Medicine 11/11/20 Chief Contract Officer Relationship Specialty Start Date End Date aLneAlbertina reyes DO [address] [place] [address] PCP - General Family Medicine 07/28/23 Team Status: Inactive Member Role Status Dates Albertina Arndt DO Primary Care Provider Active Tal Florian DO Attending Provider Active REASON FOR VISIT (unrecogniz ed section and content) Reason Comments Radiology Mammogram Reason Comments Annual Exam Goals (unrecognized section and content) Goals may be documented in a n alternate section FOR RECORDS PERTAINING TO PATIENTS WHO ARE OR HAVE BEEN ENROLLED IN A CHEMICAL DEPENDENCY/SUBSTANCEABUSE PROGRAM, SOME INFORMATION MAY BE OMITTED. This clinical summary was aggregated from multiple sources. Caution should be exercised in using it in the provision of clinical care. This summary normalizes information from multiple sources, and as a consequence, information in this document may materially change the coding, format and clinical context of patient data. In addition, data may be omitted in some cases. CLINICAL DECISIONS SHOULD BE BASED ON THE PRIMARY CLINICAL RECORDS. [employer] [facility]. provides no warranty or guarantee of the accuracy or completeness of information in this document.
--- NOTE | 2024-02-25 22:13 | ECG_ITS ---
[facility] Test Date: 2024-02-25 Pat Name: SHAHANA FLOR Department: Room: - Gender: Female Academic Vice President: : 1950 Requested By: Lawrence Polanco Order Number: [id number] Reading MD: ARON NOBLE Measurements Intervals [place] Rate: 91 P: 16 MI: 172 QRS: 58 QRSD: 76 T: 90 QT: 336 QTc: 385 Interpretive Statements 1100 Sinus rhythm 3234 Anteroseptal myocardial infarction, age undetermined 9150 abnormal ECG No previous ECG available for comparison Electronically Signed On 02-26-2024 7:43:09 EDT by ARON NOBLE
--- NOTE | 2024-02-25 22:25 | PC.NURSE ---
Pt presents to ER for fever and altered mental status Per EMS report pt had a stent placed for a kidney stone and a stone removed at [facility] 3 days ago Per EMS report pt's daughter called them because pt was altered and had a fever Pt will only speak to this nurse when spoken to and asked direct questions Pt states the date is May of 1931 Pt knows who she is but that's it at this time Per EMS report pt daughter stated that the pt became septic after her last kidney stone as well Pt has a 22g in her left hand started by EMS
--- NOTE | 2024-02-25 22:34 | ED.AMS1 ---
HPI - Altered Mental Status General Chief Complaint: Altered Mental Status Stated Complaint: Fever Time Seen by Provider: 02/25/24 22:28 Source: patient and other Source comment: EMS Mode of arrival: ambulance Limitations: other Limitations comment: Pt tired, staring just not interested in talking much History of Present Illness HPI narrative: patient states she was at [facility] a couple of days ago and had urinary stent placed. Now brought here from senior living with fever and confusion. She denies any pain or nausea. Not short of breath and no chest pain Related Data Home Medications ?Medication ?Instructions ?Recorded ?Confirmed insulin glargine 100 unit/mL (3 40 unit subcut DAILY 02/25/24 02/26/24 mL) subcutaneous pen (Basaglar KwikPen U-100 Insulin) lisinopril 5 mg tablet 5 mg PO BID 02/25/24 02/26/24 metformin 500 mg tablet,extended 500 mg PO DAILY 02/25/24 02/26/24 release 24 hr metoprolol tartrate 50 mg tablet 50 mg PO Q12H 02/25/24 02/26/24 nifedipine 30 mg tablet,extended 60 mg PO DAILY 02/25/24 02/26/24 release 24 hr atorvastatin 40 mg tablet 40 mg PO BEDTIME 02/26/24 02/26/24 clopidogrel 75 mg tablet 75 mg PO DAILY 02/26/24 02/26/24 meclizine 12.5 mg tablet 12.5 mg PO TID PRN dizziness 02/26/24 02/26/24 potassium bicarbonate-citric acid 25 meq PO DAILY 02/26/24 02/26/24 25 mEq effervescent tablet (Klor-Con/EF) Previous Rx's ?Medication ?Instructions ?Recorded cefuroxime axetil 500 mg tablet 500 mg PO BID 7 days #14 tabs 02/27/24 Allergies Allergy/AdvReac Type Severity Reaction Status Date / Time aspirin Allergy Verified 02/25/24 22:16 Review of Systems ROS Status of ROS 10 or more systems reviewed and unremarkable except as noted in history and below [facility] Medical History (Updated 02/26/24 @ 12:53 by Shaikh Raffi MD) Kidney calculi ?N20.0 - Calculus of kidney (ICD-10) Coronary bypass graft mechanical complication ?T82.218A - Other mechanical complication of coronary artery bypass graft, initial encounter (ICD-10) Obesity ?E66.9 - Obesity, unspecified (ICD-10) Hyperlipidemia ?E78.5 - Hyperlipidemia, unspecified (ICD-10) Coronary artery disease ?I25.10 - Atherosclerotic heart disease of [place] coronary artery without angina pectoris (ICD-10) Diabetes mellitus ?E11.9 - Type 2 diabetes mellitus without complications (ICD-10) Surgical History (Updated 02/26/24 @ 09:40 by Minna Beasley) H/O lithotripsy ?Z98.890 - Other specified postprocedural states (ICD-10) History of section ?Z98.891 - History of uterine scar from previous surgery (ICD-10) History of section ?Z98.891 - History of uterine scar from previous surgery (ICD-10) Hx of appendectomy ?Z90.49 - Acquired absence of other specified parts of digestive tract (ICD-10) Social History (Updated 02/26/24 @ 09:36 by Karen Jimenez) Within the past year, how often did you have a drink containing alcohol: never Score interpretation: A score less than 3 is consistent with normal alcohol consumption. Smoking status: Never smoker Non-prescribed substance use: denies use Previous occupational history: retired Highest level of school completed/degree received: high school graduate Are you now , , , , never or living with a partner: Little interest or pleasure in doing things: not at all Feeling down, depressed, or hopeless: not at all Feel stressed/tense/nervous/anxious/difficulty sleeping: only a little Life stressor details: kidney stone issues lately and surgeries Do you think of yourself as: straight/heterosexual Exam Constitutional Vital Signs, click to edit/add: Last Vital Signs Temp 97.9 F 02/27/24 05:07 Pulse 55 L 02/27/24 10:00 Resp 18 02/27/24 00:00 BP 177/63 H 02/27/24 05:07 Pulse Ox 93 L 02/27/24 14:14 O2 Del Method Room Air 02/27/24 14:14 Common normals: no apparent distress, average body habitus, healthy appearing and alert HENCT Common normals: normocephalic and head/scalp atraumatic Respiratory Common normals: normal respiratory effort, no retractions, no use of accessory muscles and clear to auscultation bilaterally Cardio Common normals: regular rate, regular rhythm, S1 normal heart sound and S2 normal heart sound GI Common normals: Normal to inspection, nondistended, normoactive bowel sounds present, soft to palpation and non-tender Extremity Common normals: normal to inspection and full ROM Neuro [place] Coma Scale: other (pleasant and no distress but confused. Not sure of where she is. Thinks she is at [facility] , doesn't know the president and thinks it is 1986) Course Course Hospital Course: 74-year-old female presented with confusion/generalized weakness and was admitted for urinary tract infection resulting in metabolic encephalopathy. She also had evidence of acute kidney injury. Patient was started on IV fluids IV Rocephin with improvement in her symptoms. She returned back to her baseline mental status. Her renal function improved with IV hydration. CT abdomen pelvis showed improvement in hydronephrosis, ureteral stent in place. Patient is stable for discharge on oral Ceftin. She will need to follow-up with PCP and urology as outpatient. Vital Signs Vital signs: Vital Signs Temperature 99.2 F 02/25/24 22:03 Pulse Rate 94 H 02/25/24 22:03 Respiratory Rate 26 H 02/25/24 22:03 Blood Pressure 158/79 H 02/25/24 22:03 Pulse Oximetry 94 L 02/25/24 22:03 Oxygen Delivery Method Room Air 02/25/24 22:03 Temperature 97.9 F 02/27/24 05:07 Pulse Rate 55 L 02/27/24 10:00 Respiratory Rate 18 02/27/24 00:00 Blood Pressure 177/63 H 02/27/24 05:07 Pulse Oximetry 93 L 02/27/24 14:14 Oxygen Delivery Method Room Air 02/27/24 14:14 MDM - Altered Mental Status Lab Data Labs: Lab Results 02/25/24 02/26/24 Range/Units 22:54 01:05 WBC 10.3 (4.0-11.0) 10^3/uL RBC 4.41 (4.20-5.40) 10^6/uL Hgb 13.5 (12.0-16.0) g/dL Hct 40.9 (36.0-48.0) % MCV 92.7 (81.0-99.0) fL MCH 30.6 (26.7-34.0) pg MCHC 33.0 (29.9-35.2) g/dL RDW 13.0 (11.0-15.0) % Plt Count 157 (150-450) 10^3/uL MPV 9.6 (9.5-13.5) fL Seg Neuts % (Manual) 75.0 Band Neutrophils % 13.0 H (0-5) % Lymphocytes % (Manual) 5.0 L (20.5-60.0) % Atypical Lymphs % (Man) 0.0 % Monocytes % (Manual) 7.0 (1.7-12.0) % Eosinophils % (Manual) 0.0 L (0.9-7.0) % Basophils % (Manual) 0.0 L (0.2-2.0) % Neutrophils # (Manual) 7.72 H (1.4-6.5) 10^3/uL Band Neutrophils # 1.3 H (0.0-0.3) 10^3/uL Lymphocytes # (Manual) 0.51 L (1.20-3.80) 10^3/uL Abs Atypical Lymphs Man 0.00 Monocytes # (Manual) 0.72 (0.30-0.80) 10^3/uL Eosinophils # (Manual) 0.00 (0.00-0.70) 10^3/uL Basophils # (Manual) 0.00 (0.00-0.10) 10^3/uL Sodium 143 (136-145) mmol/L Potassium 3.6 (3.5-5.1) mmol/L Chloride 110 H (98-107) mmol/L Carbon Dioxide 17.7 L (21.0-32.0) mmol/L Anion Gap 18.9 BUN 23.0 H (7.0-18.0) mg/dL Creatinine 2.10 H (0.55-1.02) mg/dL Est GFR ( Amer) 28 L (>=60) Est GFR (Non-Af Amer) 23 L (>=60) BUN/Creatinine Ratio 11.0 Glucose 154 H (74-106) mg/dL Lactate 1.5 (0.4-2.0) mmol/L Calcium 8.6 (8.5-10.1) mg/dL Total Bilirubin 0.9 (0.2-1.0) mg/dL AST 23 (15-37) U/L ALT 17 (14-59) U/L Alkaline Phosphatase 73 (46-116) U/L Troponin I High Sens 46.3 (4.0-51.3) pg/mL Total Protein 6.7 (6.4-8.2) g/dL Albumin 2.4 L (3.4-5.0) g/dL Globulin 4.3 g/dL Albumin/Globulin Ratio 0.6 Procalcitonin 0.56 H (0.00-0.50) ng/mL Urine Color Lt. yellow (YELLOW) Urine Clarity Clear (CLEAR) Urine pH 6.0 (5.0-9.0) Ur Specific [place] 1.020 (1.005-1.025) Urine Protein 100 A (NEG/TRACE) mg/dL Urine Glucose (UA) Negative (NEGATIVE) mg/dL Urine Ketones Negative (NEGATIVE) mg/dL Urine Occult Blood Large A (NEGATIVE) Urine Nitrite Negative (NEGATIVE) Urine Bilirubin Negative (NEGATIVE) Urine Urobilinogen 0.2 (0.2-1.0) EU/dL Ur Leukocyte Esterase Large A (NEGATIVE) Urine RBC None seen (0-2) #/HPF Urine WBC >100 A (NONE SEEN) #/HPF Ur Squamous Epith Cells Moderate A (NONE/RARE) #/LPF Urine Crystals None seen (None Seen) #/HPF Urine Bacteria None seen (NONE SEEN) #/HPF Urine Casts None seen (NONE SEEN) #/LPF Urine Mucus None seen (NONE SEEN) Urine Yeast Seen A (NONE SEEN) Ur Culture Indicated? Yes Discharge Plan Discharge Chief Complaint: Altered Mental Status Clinical Impression: Altered mental status Urinary tract infection Qualifiers: Urinary tract infection type: acute cystitis Hematuria presence: without hematuria Qualified Code(s): N30.00 - Acute cystitis without hematuria Patient Disposition: Admitted As Inpatient Time of Disposition Decision: 07:47 Condition: Fair Discharge Date/Time: 02/26/24 08:17
--- NOTE | 2024-02-25 22:37 | CT_ITS ---
The [address] [address] Patient Name: SHAHANA FLOR MRN: [facility]:[id number] date: 1950 Sex: F Assigned Patient Location: ER Current Patient Location: .MAIN Accession/Order Number: [id number] Exam Date: 02/25/2024 01:00 Report Date: 02/26/2024 03:35 At the request of: JADA PAVON Procedure: CT abdomen pelvis w con EXAM: CT abdomen pelvis w con HISTORY: post stent placement fever COMPARISON: None. TECHNIQUE: Oral contrast enhanced CT imaging of the abdomen and pelvis was performed with sagittal and coronal reconstructions. Dose reduction techniques were achieved by using automated exposure control and/or adjustment of mA and/or kV according to patient size and/or use of iterative reconstruction technique. FINDINGS: CT ABDOMEN: There is a small layering left pleural effusion. Motion artifact degrades the lung bases. The heart is top normal in size. There is no pericardial effusion. Cholelithiasis is noted without cholecystitis or biliary ductal dilatation. The liver, pancreas, spleen, adrenal glands and left kidney appear grossly unremarkable, allowing for the lack of contrast. There is mild right hydronephrosis with a right ureteral stent in appropriate position. No ureteral stones are seen. The right kidney is otherwise unremarkable. There are moderate aortic and iliac arterial calcifications without aneurysm. 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 The stomach and small bowel appear within normal limits. CT PELVIS: Prominent diffuse pelvic arterial calcifications are present. The appendix is not seen. The pelvic small bowel loops, uterus and urinary bladder appear unremarkable. The colon is filled with fluid and air suggesting diarrhea. No wall thickening or surrounding inflammatory change is seen. There is a right paramedian infraumbilical ventral hernia containing a loop of nonobstructed, unremarkable small bowel on images 115 through 123. Fat-containing umbilical hernia is present. No free fluid, loculated fluid, free air or soft tissue gas is seen in the abdomen or pelvis. No acute osseous abnormality or suspicious bony lesion is seen. CT/CT abdomen pelvis w con IMPRESSION: 1. Fluid and gas-filled colon suggesting secretory diarrhea. No colonic wall thickening or surrounding inflammation to suggest colitis. 2. Right ureteral stent in appropriate position with mild right hydronephrosis. No urinary tract calculi are identified. 3. Small layering left pleural effusion. 4. Cholelithiasis. 5. Right paramedian infraumbilical ventral hernia containing nonobstructed small bowel. Electronically authenticated by: MITA CHAU Date: 02/26/2024 03:35
[2024-02-25] MEDS: 0.9 % SODIUM CHLORIDE 1,000 ML 999 ML IV (23:05)
[2024-02-25] MEDS: CEFTRIAXONE 2,000 MG in 0.9 % SODIUM CHLORIDE 100 ML 200 MG IV (23:05)
[2024-02-25 23:06] LABS: Hematocrit 40.9 % (36.0-48.0); Hemoglobin 13.5 g/dL (12.0-16.0); Mean Corpuscular Hemoglobin 30.6 pg (26.7-34.0); Mean Corpuscular Volume 92.7 fL (81.0-99.0); Mean Platelet Volume 9.6 fL (9.5-13.5); Platelet Count 157 10^3/uL (150-450); Red Blood Count 4.41 10^6/uL (4.20-5.40); White Blood Count 10.3 10^3/uL (4.0-11.0)
[2024-02-25 23:27] LABS: Alanine Aminotransferase 17 U/L (14-59); Albumin Globulin Ratio 0.6; Albumin Level 2.4 g/dL (3.4-5.0); Alkaline Phosphatase 73 U/L (46-116); Anion Gap 18.9; Aspartate Amino Transferase 23 U/L (15-37); Bilirubin Total 0.9 mg/dL (0.2-1.0); Calcium 8.6 mg/dL (8.5-10.1); Carbon Dioxide 17.7 mmol/L (21.0-32.0); Chloride 110 mmol/L (98-107); Estimated GFR (African America 28 (>=60); Estimated GFR (Non-African Ame 23 (>=60); Globulin 4.3 g/dL; Glucose 154 mg/dL (74-106); Potassium 3.6 mmol/L (3.5-5.1); Sodium 143 mmol/L (136-145); Total Protein 6.7 g/dL (6.4-8.2)
[2024-02-25 23:29] LABS: Lactate/Lactic Acid 1.5 mmol/L (0.4-2.0); Troponin I High Sensitivity 46.3 pg/mL (4.0-51.3)
[2024-02-25 23:36] LABS: Band Neutrophils Absolute 1.3 10^3/uL (0.0-0.3); Lymphocytes Absolute Manual 0.51 10^3/uL (1.20-3.80); Monocytes Absolute Manual 0.72 10^3/uL (0.30-0.80); Segmented Neut Absolute Manual 7.72 10^3/uL (1.4-6.5)
[2024-02-25 23:53] LABS: PROCALCITONIN 0.56 ng/mL (0.00-0.50)
[2024-02-26] VITALS (57 sets, daily range): BP systolic 131–160; BP diastolic 65–83; PULSE 56–108; TEMP 37–37.1; O2SAT 89–96; BMI 37.4
--- NOTE | 2024-02-26 01:00 | PC.NURSE ---
Prior to pt going to CT this nurse with the assistance of one other nurse assisted the pt in standing and pivoting to bedside commode Pt lost continence in the move, all linen changed at this time Pt still able to give urine sample on bedside commode Pt finished drinking oral contrast while in upright position Pt then assisted back into bed and went to CT When pt returned from CT she was hooked back up to her fluids and placed back on case monitor where she will remain for the duration of her stay Pt daughter and at bedside were updated When pt returned from CT her family left Pt's husbands name is Camila [phone] to be called with an update after CT results are back and an admission plan is made
[2024-02-26 01:33] LABS: Bilirubin Urine NEGATIVE (NEGATIVE); Blood Urine LARGE (NEGATIVE); Clarity Urine CLEAR (CLEAR); Color Urine LT. YELLOW (YELLOW); Glucose Urine UA NEGATIVE (NEGATIVE); Ketones Urine NEGATIVE (NEGATIVE); Leukocyte Esterase Urine LARGE (NEGATIVE); Nitrite Urine NEGATIVE (NEGATIVE); Protein Urine 100 mg/dL (NEG/TRACE); Urobilinogen Urine 0.2 EU/dL (0.2-1.0)
[2024-02-26 01:34] LABS: Urine Microscopic Indicated YES
[2024-02-26 01:36] LABS: WBC Urine >100 #/HPF (NONE SEEN)
[2024-02-26 01:37] LABS: Bacteria Urine NONE SEEN #/HPF (NONE SEEN); Cast Seen? NONE SEEN #/LPF (NONE SEEN); Crystals Seen? None Seen #/HPF (None Seen); Mucus Urine NONE SEEN (NONE SEEN); RBC Urine NONE SEEN #/HPF (0-2); Squamous Epithelial Cell Urine MODERATE #/LPF (NONE/RARE); Urine Culture Indicated YES
--- NOTE | 2024-02-26 03:46 | CT_ITS ---
The [address] [address] Patient Name: SHAHANA FLOR MRN: [id number] date: 1950 Sex: F Assigned Patient Location: ER Current Patient Location: ER Accession/Order Number: [id number] Exam Date: 02/26/2024 04:20 Report Date: 02/26/2024 06:40 At the request of: JADA PAVON Procedure: CT head/brain wo con EXAM: CT head/brain wo con HISTORY: altered mental status COMPARISON: None. TECHNIQUE: Nonenhanced CT imaging the head was performed with sagittal and coronal reconstructions. Dose reduction techniques were achieved by using automated exposure control and/or adjustment of mA and/or kV according to patient size and/or use of iterative reconstruction technique. FINDINGS: No intracranial hemorrhage, edema, mass effect or midline shift is seen. Age related diffuse brain atrophy is noted with diffuse ventriculomegaly, nonspecific. Moderate nonspecific periventricular lucencies likely reflect chronic small vessel white matter ischemia. Right plagiocephaly is noted. The calvarium is intact. Hyperostosis frontalis interna is incidentally noted. There is a left maxillary retention cyst or polyp. The paranasal sinuses are otherwise clear. Bilateral internal carotid arterial calcifications are noted. The bilateral mastoid air cells are clear. No extracranial soft tissue gas, loculated fluid or foreign body is seen. CT/CT head/brain wo con IMPRESSION: 1. No acute intracranial abnormality. 2. Age-related brain atrophy with nonspecific moderate periventricular lucencies favoring chronic small vessel white matter ischemia. 3. Diffuse ventriculomegaly may be top-normal for the patient's degree of brain atrophy. Clinical correlation recommended to exclude potential normal pressure hydrocephalus. Electronically authenticated by: MITA CHAU Date: 02/26/2024 06:40
--- NOTE | 2024-02-26 03:52 | XR_ITS ---
The [address] [address] Patient Name: SHAHANA FLOR MRN: [id number] date: 1950 Sex: F Assigned Patient Location: ER Current Patient Location: ER Accession/Order Number: [id number] Exam Date: 02/26/2024 04:20 Report Date: 02/26/2024 06:30 At the request of: JADA PAVON Procedure: XR chest 1V EXAM: XR chest 1V HISTORY: fever COMPARISON: CT abdomen/pelvis 02/26/2024. TECHNIQUE: AP chest x-ray. FINDINGS: Cardiac size is enlarged. Trachea is midline. No mediastinal widening. Interstitial thickening is noted. Blunting of the left costophrenic angle is noted. No pneumothorax. Osseous structures appear intact. XR/XR chest 1V IMPRESSION: 1. Cardiomegaly with mild pulmonary edema. 2. Small left basilar effusion. Electronically authenticated by: CAHVO LIANG Date: 02/26/2024 06:30
--- NOTE | 2024-02-26 07:45 | ED_ITS ---
HPI HPI - General Adult General Chief complaint: Altered Mental Status Stated complaint: Fever Time Seen by Provider: 02/25/24 22:28 Source: patient and other Source information: EMS Mode of arrival: ambulance Limitations: other Limitations comment: Pt tired, staring just not interested in talking much History of Present Illness HPI narrative: 74-year-old female presented to the emergency department and was initially seen by Dr. Valadez and signed out to me after discussing the case with him thoroughly. Please see his full history and physical exam. Related Data Home Medications ?Medication ?Instructions ?Recorded ?Confirmed ciprofloxacin HCl 500 mg tablet mg 02/25/24 insulin glargine 100 unit/mL (3 unit subcut 02/25/24 mL) subcutaneous pen (Basaglar KwikPen U-100 Insulin) lisinopril 5 mg tablet mg 02/25/24 metformin 500 mg tablet,extended mg PO 02/25/24 release 24 hr metoprolol tartrate 50 mg tablet 25 mg 02/25/24 nifedipine 30 mg tablet,extended mg PO 02/25/24 release 24 hr potassium bicarbonate-citric acid 02/26/24 25 mEq effervescent tablet (Klor-Con/EF) Allergies Allergy/AdvReac Type Severity Reaction Status Date / Time aspirin Allergy Verified 02/25/24 22:16 Opioid HPI Opioid Management Most Recent Opioid Data: No Data to Display Exam Constitutional Vital Signs, click to edit/add: Last Vital Signs Temp 99.2 F 02/25/24 22:03 Pulse 75 02/26/24 06:50 Resp 22 H 02/26/24 06:50 BP 143/79 H 02/26/24 01:32 Pulse Ox 92 L 02/26/24 06:50 O2 Del Method Room Air 02/25/24 22:03 Course Vital Signs Vital signs: Vital Signs Temperature 99.2 F 02/25/24 22:03 Pulse Rate 94 H 02/25/24 22:03 Respiratory Rate 26 H 02/25/24 22:03 Blood Pressure 158/79 H 02/25/24 22:03 Pulse Oximetry 94 L 02/25/24 22:03 Oxygen Delivery Method Room Air 02/25/24 22:03 Temperature 99.2 F 02/25/24 22:03 Pulse Rate 75 02/26/24 06:50 Respiratory Rate 22 H 02/26/24 06:50 Blood Pressure 143/79 H 02/26/24 01:32 Pulse Oximetry 92 L 02/26/24 06:50 Oxygen Delivery Method Room Air 02/25/24 22:03 Medical Decision Making MDM Narrative Medical decision making narrative: Workup indicates UTI with a CAT scan that shows stent in place. Dr. Valadez had spoken to Dr. Rivas who recommends IV antibiotics and admission here. I have spoken to Dr. Nugent and updated the patient's. Differential Diagnosis Differential Diagnosis: UTI, pneumonia, CVA Lab Data Lab results reviewed: Yes I reviewed the patient's lab results Labs: Lab Results 02/25/24 02/26/24 Range/Units 22:54 01:05 WBC 10.3 (4.0-11.0) 10^3/uL RBC 4.41 (4.20-5.40) 10^6/uL Hgb 13.5 (12.0-16.0) g/dL Hct 40.9 (36.0-48.0) % MCV 92.7 (81.0-99.0) fL MCH 30.6 (26.7-34.0) pg MCHC 33.0 (29.9-35.2) g/dL RDW 13.0 (11.0-15.0) % Plt Count 157 (150-450) 10^3/uL MPV 9.6 (9.5-13.5) fL Seg Neuts % (Manual) 75.0 Band Neutrophils % 13.0 H (0-5) % Lymphocytes % (Manual) 5.0 L (20.5-60.0) % Atypical Lymphs % (Man) 0.0 % Monocytes % (Manual) 7.0 (1.7-12.0) % Eosinophils % (Manual) 0.0 L (0.9-7.0) % Basophils % (Manual) 0.0 L (0.2-2.0) % Neutrophils # (Manual) 7.72 H (1.4-6.5) 10^3/uL Band Neutrophils # 1.3 H (0.0-0.3) 10^3/uL Lymphocytes # (Manual) 0.51 L (1.20-3.80) 10^3/uL Abs Atypical Lymphs Man 0.00 Monocytes # (Manual) 0.72 (0.30-0.80) 10^3/uL Eosinophils # (Manual) 0.00 (0.00-0.70) 10^3/uL Basophils # (Manual) 0.00 (0.00-0.10) 10^3/uL Sodium 143 (136-145) mmol/L Potassium 3.6 (3.5-5.1) mmol/L Chloride 110 H (98-107) mmol/L Carbon Dioxide 17.7 L (21.0-32.0) mmol/L Anion Gap 18.9 BUN 23.0 H (7.0-18.0) mg/dL Creatinine 2.10 H (0.55-1.02) mg/dL Est GFR ( Amer) 28 L (>=60) Est GFR (Non-Af Amer) 23 L (>=60) BUN/Creatinine Ratio 11.0 Glucose 154 H (74-106) mg/dL Lactate 1.5 (0.4-2.0) mmol/L Calcium 8.6 (8.5-10.1) mg/dL Total Bilirubin 0.9 (0.2-1.0) mg/dL AST 23 (15-37) U/L ALT 17 (14-59) U/L Alkaline Phosphatase 73 (46-116) U/L Troponin I High Sens 46.3 (4.0-51.3) pg/mL Total Protein 6.7 (6.4-8.2) g/dL Albumin 2.4 L (3.4-5.0) g/dL Globulin 4.3 g/dL Albumin/Globulin Ratio 0.6 Procalcitonin 0.56 H (0.00-0.50) ng/mL Urine Color Lt. yellow (YELLOW) Urine Clarity Clear (CLEAR) Urine pH 6.0 (5.0-9.0) Ur Specific [place] 1.020 (1.005-1.025) Urine Protein 100 A (NEG/TRACE) mg/dL Urine Glucose (UA) Negative (NEGATIVE) mg/dL Urine Ketones Negative (NEGATIVE) mg/dL Urine Occult Blood Large A (NEGATIVE) Urine Nitrite Negative (NEGATIVE) Urine Bilirubin Negative (NEGATIVE) Urine Urobilinogen 0.2 (0.2-1.0) EU/dL Ur Leukocyte Esterase Large A (NEGATIVE) Urine RBC None seen (0-2) #/HPF Urine WBC >100 A (NONE SEEN) #/HPF Ur Squamous Epith Cells Moderate A (NONE/RARE) #/LPF Urine Crystals None seen (None Seen) #/HPF Urine Bacteria None seen (NONE SEEN) #/HPF Urine Casts None seen (NONE SEEN) #/LPF Urine Mucus None seen (NONE SEEN) Urine Yeast Seen A (NONE SEEN) Ur Culture Indicated? Yes Imaging Data CT scan - abdomen: Radiologist's impression: ITS Impressions Abdomen/Pelvis CT 02/25/24 22:37 IMPRESSION: 1. Fluid and gas-filled colon suggesting secretory diarrhea. No colonic wall thickening or surrounding inflammation to suggest colitis. 2. Right ureteral stent in appropriate position with mild right hydronephrosis. No urinary tract calculi are identified. 3. Small layering left pleural effusion. 4. Cholelithiasis. 5. Right paramedian infraumbilical ventral hernia containing nonobstructed small bowel. Electronically authenticated by: MITA CHAU Date: 02/26/2024 03:[address] 02/26/24 03:46 IMPRESSION: 1. No acute intracranial abnormality. 2. Age-related brain atrophy with nonspecific moderate periventricular lucencies favoring chronic small vessel white matter ischemia. 3. Diffuse ventriculomegaly may be top-normal for the patient's degree of brain atrophy. Clinical correlation recommended to exclude potential normal pressure hydrocephalus. Electronically authenticated by: MITA CHAU Date: 02/26/2024 06:40 Chest X-Ray 02/26/24 03:52 IMPRESSION: 1. Cardiomegaly with mild pulmonary edema. 2. Small left basilar effusion. Electronically authenticated by: CHAVO LIANG Date: 02/26/2024 06:30 Discharge Plan Discharge Chief Complaint: Altered Mental Status Clinical Impression: Urinary tract infection, Altered mental status Patient Disposition: Admitted As Inpatient Time of Disposition Decision: 07:47 Condition: Fair Prescriptions / Home Meds: No Action nifedipine 30 mg tablet extended release 24hr PO ciprofloxacin HCl 500 mg tablet metoprolol tartrate 50 mg tablet 25 mg Hold Instructions: changed meds lisinopril 5 mg tablet metformin 500 mg tablet extended release 24 hr PO insulin glargine [Basaglar KwikPen U-100 Insulin] 100 unit/mL (3 mL) insulin pen SUBCUT Klor-Con/EF 25 mEq tablet, effervescent Print Language: Bulgarian Referrals: ALBERTINA ARNDT [Primary Care Provider] - 1 week
--- OUTSIDE RECORDS SUMMARY | 2024-02-26 08:47 | XMS_ITS | CCD ---
Author Organization [facility] Care Team Providers Care Nitriles Lab Technician Name Role Phone KANWAL MANN Unavailable Unavailable ALBERTINA ARNDT Unavailable Unavailable UNKNOWN, PROVIDER Unavailable Unavailable ALBERTINA ARNDT Unavailable Unavailable Albertina Arndt Unavailable Unavailable Unavailable ANIVAL, DR STERLING Reyes Admitting Unavailmasood ARNDT, DR ENG Primary Care Unavailable ANIVAL, DR STERLING Reyes Attending Unavailabl e WENDY DEL REAL Attending Unavailable ASIF .WENDY Admitting Unavailable CARIN, DR FRANSISCA Mcdermott Consulting Unavailable HAIR, DR ENG Primary Care Unavailable WENDY DEL REAL Consulting Unavailable KANWAL THIBODEAUX Attending Unavailable KANWAL THIBODEAUX Admitting Unavailable HAIR, DR ENG Primary Care Unavailable KANWAL THIBODEAUX Consulting Unavailable ALBERTINA ARNDT Primary Care Physician Francie Mann Unavailable Unavailable Albertina Arndt Primary Care Provider Albertina Arndt Unavailable Albertina Arndt Primary Care Unavailable Anival, Dr. Sterling Oleary Attending Amarisva iljany Florian, Dr. Sterling Oleary Referring Unava ilAlbertina Case Primary Care Unavailable Anival, Dr. Sterling Oleary Attending Amarisva iljany Florian, Dr. Sterling Oleary Referring Unava ilSo Blankenship Attending Provider [phone] Hair, DO Eng Primary Care Provider DO Albertina Arndt Attending Provider Albertina Arndt Primary Care Provider [phone] ALBERTINA ARNDT Primary Care Unavailable Francie Esteban Unavailable Unavailable Garrett Palmer Unavailable KunAlbertina reyes DO Primary Care Provider So Ram Attending Provider Lexaeric DO Grubbstt Primary Care Provider [phone] Anival DO Tal Oleary Attending Provider [phone] HairOdalystt Primary Care Unavailable Tal Florian Admitting Unavailable [...] Attending Unavailable COOK, Orestes P Admitting Unavailable GenPaola edwards Admitting Unavailable Jhonny Barrett Attending Unavailable Estela, Garrett S Consulting Unavailable Juan Palmer Garrett S Consulting Unavailable Blank, Garrett S Consulting Unavailable Blank, Garrett S Consulting Unavailable Blank, Garrett S Consulting Unavailable Blank, Garrett S Consulting Unavailable Blank, Garrett S Consulting Unavailable Blank, Garrett S Consulting Unavailable Blank, Garrett S Consulting Unavailable Blank, Garrett S Consulting Unavailable Margareth DANIELS Admitting Unavailable AMICk Mcdermott Attending Unavailable Rose Alvarado H Attending Unavailable COOK, Orestes P Attending Unavailable COOK, Orestes P Referring Unavailable COOK, Orestes P Admitting Unavailable LEONEL Corona Attending Unavailab Glynn Wilson Admitting Unavailable AGNES, Glynn Tipton Attending Unavailable Glynn ALARCON Admitting Unavailable DENT, Glynn Mcdermott Consulting Unavailable MD Glynn DENT Consulting Unavailable DENT, Glnyn Mcdermott Consulting Unavailable DENT, Glynn Mcdermott Consulting Unavailable DENT, Glynn R Consulting Unavailable DENT, Glynn R Consulting Unavailable DENT, Glynn R Consulting Unavailable DENT, Glynn R Consulting Unavailable DENT, Glynn R Consulting Unavailable DENT, Glynn R Consulting Unavailable DENT, Glynn R Consulting Unavailable DENT, Glynn R Consulting Glynn Tripathi Consulting Unavailable Glynn DENT Consulting Unavailable Cyndy Keen Unavailable Unavailable Glynn ALARCON Admitting Unavailable Jhonny Barrett Attending Unavailable MD Glynn DENT Consulting Glynn Tripathi Attending Tomeka Allergies Allergy Classification Reported Allergen(s) Allergy Type Date of Onset Reaction(s) Facility (20 sources) Aspirin; Translations: [aspirin] Drug Allergy 3 Eye swelling (finding), Anaphylaxis -[facility] 600 DO Work Phone: Comment on above: pt states she is abl e to take 81 mg of aspirin with aspirin allergy (1 source) Aspirin Drug Allergy [facility] Repository (4 sources) No Latwex Allergy [Other] Propensity to adverse reactions 3 [facility] (9 sources) Aspirin Drug Allergy swollen throat [facility] [employer] Other (1 source) OTHER; Translations: [OTHER] Propensity to adverse reactions (disorder) 3 [facility] Other [place] Repository (1 source) Aspirin Drug Allergy 1 [facility] Medications Current Medications Medication Drug Class(es) Dates [...] day(s), # 15 cap(s), Refills(s) 0, Pharmacy: [facility] #[id number], 158, cm, 05/09/23 8:54:00 EDT, Height/Length Dosing, 90.4, kg, 05/09/23 8:54:00 EDT, Weight Dosing Start Date: 05/11/23 Stop Date: 05/16/23 Status: Ordered Start: 11-14-2022 End: 11-19-2022 take 1 capsule by mouth three times daily Keflex 500 mg Cap 500 mg = 1 cap(s), Oral, TID, X 5 day(s), # 15 cap(s), Refills(s) 0, Pharmacy: [facility], 157, cm, 11/13/22 23:40:00 EDT, Height/Length Dosing, 83.2, kg, 11/13/22 23:40:00 EDT, Weight Dosing Start Date: 11/14/22 Stop Date: 11/19/22 Status: Ordered Start: 10-22-2021 take 1 capsule by mo [facility] once daily Keflex 500 mg Cap 500 mg = 1 cap(s), Oral, q12hr, take 1 cap the evening prior to scheduled procedure, take 2nd capsule the day of scheduled procedure, # 2 cap(s), Refills(s) 0, Pharmacy: [facility]/pharmacy #[id number], 161.9, cm, 10/21/21 6:32:00 EST, Height/Length Dosing, 80.5,... Start Date: 10/22/21 Status: Ordered ciprofloxacin 500 mg oral tablet (5 sources) Quinolone Antimicrobial Start: 02-23-2024 End: 03-01-2024 take 1 tablet by mouth twice daily Cipro 500 mg Tab 500 mg = 1 tab(s), Oral, BID, X 7 day(s), # 14 tab(s), Refills(s) 0, Pharmacy: [facility], 160.5, cm, 02/19/24 13:38:00 EDT, Height/Length Dosing, 84.3, kg, 02/19/24 13:38:00 EDT, Weight Dosing Start Date: 02/23/24 Stop Date: 03/01/24 Status: Ordered Start: 08-05-2023 take 1 tablet by luba th twice daily Cipro 500 mg Tab 500 mg = 1 tab(s), Oral, BID, # 10 tab(s), Refills(s) 0, Pharmacy: [facility], 160.5, cm, 08/05/23 13:21:00 EST, Height/Length Dosing, 83, kg, 08/05/23 13:21:00 EST, Weight Dosing Start Date: 08/05/23 Status: Ordered Start: 07-02-2022 Cipro 500 mg T ab See Instructions, Take 1 tab day prior to procedure and 1 tab day of procdure - afterwards, # 2 tab(s), Refills(s) 0, Pharmacy: [facility]/pharmacy #[id number], 163, cm, 07/02/22 9:34:00 EDT, Height/Length Dosing, [...] night for 1 month, then 2x/week thereafter, [facility], 158, cm, 02/08/23 12:39:00 EDT, Height/Length [...] Daily, # 30 tab(s), Refills(s) 0, Pharmacy: [facility]/pharmacy #[id number], 157, cm, 06/17/22 13:37:00 EDT, Height/Length [...] BID, # 120 tab(s), Refills(s) 0, Pharmacy: [facility]/pharmacy #[id number], 157.5, cm, 06/10/21 10:56:00 EDT, Height/Length Dosing, 79.4, kg, 06/10/21 10:56:00 EDT, Weight Dosing Start Date: 06/12/21 Status: Ordered Start: 11-28-2018 lisinopril 2.5 mg tablet Liver panel (6 sources) Start: 06-09-2023 Liver panel Li naren panel, Print Requisition, Supply Start Date: 06/09/23 Status: Ordered meclizine hydrochloride 12.5 mg oral tablet (11 sources) Antiemetic Start: 11-14-2022 take 1 tablet by mouth three times daily as needed for dizziness meclizine 12.5 mg Tab 12.5 mg = 1 tab(s), Oral, TID, PRN for dizziness, # 15 tab(s), Refills(s) 0, Pharmacy: [facility], 157, cm, 11/13/22 23:40:00 EDT, [...] Start: 10-01-2021 take 2 tablets by mo [facility] twice daily metformin 500 mg ER Tab 1,000 mg = 2 tab(s), Oral, BID, High blood sugar Start Date: 10/01/21 Status: Ordered Start: 10-29-2018 [facility] (GLUCOPHAGE) 1,000 mg tablet Take 1,000 mg by mouth twice daily. 0 10/29/2018 Active Comment on above: Take 1,000 mg by luba twice daily. 24 hr mirabegron 25 mg extended release oral tablet (3 sources) beta3-Adrenergic Agonist Start: 02-09-20 take 1 tablet by mouth once daily Myrbetriq 25 mg oral tablet, extended release 25 mg = 1 tab(s), Oral, Daily, # 30 tab(s), Refills(s) 6, Pharmacy: [facility], 158, cm, 02/08/23 12:39:00 EDT, Height/Length Dosing, 82, kg, 02/08/23 12:39:00 EDT, Weight Dosing Start Date: 02/08/23 Status: Ordered NIFEdipine 30 mg oral tablet (1 source) Dihydropyridine Calcium Channel Lesly Start: 02-23-20 take 2 tablets by mouth once daily NIFEdipine 30 mg ER Tab 60 mg = 2 tab(s), Oral, Daily, # 60 tab(s), Refills(s) 5, Pharmacy: [facility], 160.5, cm, 02/19/24 13:38:00 EDT, Height/Length [...] day(s), # 60 tab(s), Refills(s) 1, Pharmacy: [facility]/pharmacy #[id number], 157, cm, 06/17/22 13:37:00 EDT, Height/Length Dosing, 85, kg, 06/17/22 13:37:00 EDT, Weight Dosing Start Date: 06/17/22 [...] water, # 30 tab(s), Refills(s) 10, Pharmacy: [facility], 158, cm, 02/08/23 12:39:00 EDT, Height/Length Dosing, 82, kg, 02/08/23 12:39:00 EDT, Weight Dosing Start Date: 02/08/23 Status: Ordered Start: 10-30-2022 End: 01-28-2023 take 1 tablet by mouth twice daily Effer-K 20 mEq oral tablet, effervescent 20 mEq = 1 tab(s), Oral, BID, X 30 day(s), # 60 tab(s), Refills(s) 2, Pharmacy: [facility], 163, cm, 07/13/22 13:17:00 EST, Height/Length Dosing, 82, kg, 07/13/22 13:17:00 EST, Weight Dosing Start Date: 10/30/22 Stop Date: 01/28/23 Status: Ordered potassium citrate 10 meq extended release oral tablet (2 sources) Start: 08-19-2022 potassium CITRATE 10 mEq ER Tab 10 mEq, 1 tab(s), Oral, BID, 90 tab(s), Refill(s) 6, [facility]/pharmacy #[id number], 163, cm, 07/13/22 13:17:00 EST, Height/Length [...] Daily, # 14 tab(s), Refills(s) 0, Pharmacy: [facility], 158, cm, 05/09/23 8:54:00 EDT, Height/Length Dosing, 90.4, kg, 05/09/23 8:54:00 EDT, Weight Dosing Start Date: 05/09/23 Status: Ordered Start: 06-17-2022 take 1 tablet by luba th once daily solifenacin 5 mg Tab 5 mg = 1 tab(s), Oral, Daily, Refills(s) 0 Start Date: 06/17/22 Status: Ordered Start: 10-08-2021 take 1 tablet by luba th once daily Vesicare 5 mg Tab 5 mg = 1 tab(s), Oral, Daily, # 30 tab(s), Refills(s) 11, Pharmacy: [facility]/pharmacy #[id number], 157.5, cm, 10/01/21 9:21:00 EST, Height/Length [...] units/mL Soln 10 mL (2 sources) Start: 023 End: take 10 mL intravenously every twelve hours heparin flush 100 units/mL Soln 10 mL 300 unit(s), IV, q12hr for 21 day(s), 10 mL, Refill(s) 0, With intermittent or nonuse Start Date: 06/02/23 Stop Date: 06/23/23 Status: Ordered Insulin Lispro (11 sources) Insulin Analog Start: 024 End: Insulin Lispro Sliding Scale 0-10 unit(s), [...] Date: 06/01/23 Status: Completed Start: 05-11-2023 End: 05-11-2023 Metoprolol tartrate 50 mg Ta b 50 [...] BID, # 120 tab(s), Refills(s) 0, Pharmacy: [facility]/pharmacy #[id number], 157.5, cm, 06/10/21 10:56:00 EDT, Height/Length [...] day(s), # 60 EA, Refills(s) 3, Pharmacy: [facility], 158, cm, 02/08/23 12:39:00 EDT, Height/Length Dosing, 82, kg, 02/08/23 12:39:00 EDT, Weight Dosing Start Date: 02/08/23 Stop Date: 06/08/23 Status: Ordered Start: 02-08-2023 End: 06-08-2023 potassium citrate compoundin g powder 30 mEq, Oral, BID, 30mEq potassium citrate powder orally BID, Dissolve in 8 oz water, X 30 day(s), # 60 EA, Refills(s) 3, Pharmacy: [facility], 158, cm, 02/08/23 12:39:00 EDT, Height/Length Dosing, 82, kg, 02/08/23 12:39:00 EDT, Weigh... Start Date: 02/08/23 Stop Date: 06/08/23 Status: Ordered Start: 10-29-2022 potassium citr ate compounding powder See Instructions, 15mEq twice a day, dissolve with water/juice, take with food or after meal, # 60 packet(s), Refills(s) 6, Pharmacy: [facility], 163, cm, 07/13/22 13:17:00 EST, Height/Length Dosing, 82, kg, 07/13/22 13:17:00 EST, Weig... Start Date: 10/29/22 Status: Ordered Problems Active Problems Problem Classification Problem Date [...] disease (20 sources) Atherosclerotic heart disease of [place] coronary artery without angina pectoris; Translations: [Coronary [...] sources) Long-term current use of anticoagulant; Translations: [retirement (current) use of anticoagulants] Onset: 2 10-08-2021 Episodic Other aftercare (1 source) Long-term current use of drug therapy; Translations: [Other [facility]p (current) drug therapy] Onset: 3 Episodic Other [...] Unclassified (2 sources) Athscl heart disease of kenaitze coronary artery w/o ang pctrs / I25.10(ICD-9) [...] smoker] Unclassified (1 source) Onset: 07-28-2023 07-28-2023 Results Test Name Value Interpretation Reference Range Facil ity CBC w/ Auto Diffon 4 Basophils/100 WBC (Bld) 0.3 % Normal 0.0-2.0 [facility] Comment on above: Performed By: #### 2 [id number] #### [facility] [address] [place] [address] Basophils/Leukocytes Auto (Bld) [Pure # fraction] 0.0 E9/L Normal 0.0-0.2 [facility] Comment on above: Performed By: #### 2 [id number] #### [facility] [address] [place] [address] Eosinophils (Bld) [#/Vol] 0.1 E9/L Normal 0.0-0.5 [facility] Comment on above: Performed By: #### 2 [id number] #### [facility] [address] [place] [address] Eosinophils/100 WBC (Bld) 1.6 % Normal 0.0-8.0 [facility] Comment on above: Performed By: #### 2 [id number] #### [facility] [address] [place] [address] Erythrocyte distribution width (RBC) [Ratio] 13.9 % Normal 10.9-14.2 [facility] Comment on above: Performed By: #### 2 [id number] #### [facility] [address] [place] [address] Hematocrit (Bld) [Volume fraction] 38.6 % Normal 34.0-46.0 [facility] Comment on above: Performed By: #### 2 [id number] #### [facility] [address] [place] [address] Hemoglobin (Bld) [Mass/Vol] 13.2 g/dL Normal 12.0-16.0 [facility] Comment on above: Performed By: #### 2 [id number] #### [facility] [address] [place] [address] Lymphocytes (Bld) [#/Vol] 0.7 E9/L Low 1.0-4.0 [facility] Comment on above: Performed By: #### 2 [id number] #### [facility] [address] [place] [address] Lymphocytes/100 WBC (Bld) 8.2 % Low 14.0-50.0 [facility] Comment on above: Performed By: #### 2 [id number] #### [facility] [address] [place] [address] MCH (RBC) [Entitic mass] 31.4 pg Normal 27.0-34.0 [facility] Comment on above: Performed By: #### 2 [id number] #### [facility] [address] [place] [address] MCHC (RBC) [Mass/Vol] 34.2 g/dL Normal 31.4-36.0 [facility] Comment on above: Performed By: #### 2 [id number] #### [facility] [address] [place] [address] MCV (RBC) [Entitic vol] 92.0 fL Normal 80.0-100.0 [facility] Comment on above: Performed By: #### 2 [id number] #### [facility] [address] [place] [address] Monocytes (Bld) [#/Vol] 0.6 E9/L Normal 0.2-1.0 [facility] Comment on above: Performed By: #### 2 [id number] #### [facility] [address] [place] [address] Neutrophils (Bld) [#/Vol] 6.8 E9/L Normal 2.0-7.5 [facility] Comment on above: Performed By: #### 2 [id number] #### [facility] [address] [place] [address] Neutrophils/100 WBC (Bld) 82.5 % High 36.0-75.0 [facility] Comment on above: Performed By: #### 2 [id number] #### [facility] [address] [place] [address] Platelet 126.0 E9/L Low 150.0-500.0 [facility] Comment on above: Performed By: #### 2 [id number] #### [facility] [address] [place] [address] Platelet mean volume (Bld) [Entitic vol] 8.0 fL Normal 6.4-10.8 [facility] Comment on above: Performed By: #### 2 [id number] #### [facility] [address] [place] [address] RBC (Bld) [#/Vol] 4.2 E12/L Low 4.3-5.9 [facility] Comment on above: Performed By: #### 2 [id number] #### [facility] [address] [place] [address] WBC corrected for nucl RBC Auto (Bld) [#/Vol] 8.3 E9/L Normal 4.0-11.0 [facility] Comment on above: Performed By: #### 2 [id number] #### [facility] [address] [place] [address] CHEMISTRYOrdered By: Andrea Richter on 02-23-2024 Glucose [Mass/Vol] 183 mg/dL High 55 - 99 mg/dL FTM C POC Subsection Comment on above: Result Comment: Modesto vanegas RN/ POC Device SN [id number] 1 Invalid Interpretation Code [facility] POC Subsection POC User ID [id number] 1 Invalid Interpretation Code [facility] POC Subsection POC Username AISHA PAK Invalid Interpretation Code [facility] POC Subsection Glucose [Mass/Vol] 148 mg/dL High 55 - 99 mg/dL FTM C POC Subsection Comment on above: Result Comment: Modesto vanegas RN/ POC Device SN [id number] 1 Invalid Interpretation Code [facility] POC Subsection POC User ID [id number] 1 Invalid Interpretation Code [facility] POC Subsection POC Username AISHA PAK Invalid Interpretation Code [facility] POC Subsection CHEMISTRYOrdered By: Yohana Jones on 02-23-2024 Anion gap [Moles/Vol] 10 mmol/L Normal 6 - 16 mEq/L [facility] Chem Calcium [Mass/Vol] 7.5 mg/dL Low 8.9 - 11.1 mg/dL [facility] Chloride [Moles/Vol] 120 mmol/L Invalid Interpretation Code 101 - 111 mmol/L [facility] Comment on above: Result Comment: Crit ical Result Verified by Repeat Analysis Critical Result S_CL:120 Called to and read back by: SUKI SPANGLER at: 02/23/2024 07:49:57 by:CMK CO2 [Moles/Vol] [...] mg/mg High 10 - 20 [facility] Chem Capillary Glucose POCon 01-29 Glucose [Mass/Vol] 183 mg/dL High 55-99 [facility] Comment on above: Result Comment: Modesto vanegas RN/ Performed By: #### 2 [id number] #### [facility] [address] [place] [address] Discharge Instructionson Discharge Instructions [id number]# 1.00TIFF Normal [facility] Discharge Note-Nursingon Discharge Note-Nursing SHAHANA GRACE [...] care physician. This Is Your Medications List [facility] Prescription (Liver panel) NIFEdipine (NIFEdipine 30 mg [...] patient for hosptial follow up appointment. Where: [address] [place] [address] [facility] (1) Medications What How Much When Instructions Next Dose New NIFEdipine (NIFEdipine 30 mg ER Tab) 2 Tablets By Mouth Every day Refills: 5 Pickup at [facility] 02/23 @ 9 AM Unchanged atorvastatin [...] day 02/23 @ 9 AM Pharmacy Information [facility]: [address] [place], [place] [id number] [phone] Test Results CBC BMP WBC: 8.3 E9/L [...] 05:26:00) Chlorid (more content not included)... Normal [facility] HEMATOLOGYOrdered By: Wendy Pritchard on 02-23-2024 Basophils/100 WBC (Bld) 0.3 % Normal 0.0 - 2.0 % [facility] Basophils/Leukocytes Auto (Bld) [Pure # fraction] 0.0 E9/L Normal 0.0 - 0.2 E9/L [facility] Eosinophils (Bld) [#/Vol] 0.1 E9/L Normal 0.0 - 0.5 E9/L [facility] Eosinophils/100 WBC (Bld) 1.6 % Normal 0.0 - 8.0 % [facility] Erythrocyte distribution width (RBC) [Ratio] 13.9 % Normal 10.9 - 14.2 % [facility] Hematocrit (Bld) [Volume fraction] 38.6 % Normal 34.0 - 46.0 % [facility] Hemoglobin (Bld) [Mass/Vol] 13.2 g/dL Normal 12.0 - 16.0 gm/dL [facility] Lymphocytes (Bld) [#/Vol] 0.7 E9/L Low 1.0 - 4.0 E9/L [facility] Lymphocytes/100 WBC (Bld) 8.2 % Low 14.0 - 50.0 % [facility] MCH (RBC) [Entitic mass] 31.4 pg Normal 27.0 - 34.0 pg [facility] MCHC (RBC) [Mass/Vol] 34.2 g/dL Normal 31.4 - 36.0 gm/dL [facility] MCV (RBC) [Entitic vol] 92.0 fL Normal 80.0 - 100.0 fL [facility] Monocytes (Bld) [#/Vol] 0.6 E9/L Normal 0.2 - 1.0 E9/L [facility] Monocytes/100 WBC (Bld) 7.4 % Normal 4.0 - 14.0 % [facility] Neutrophils (Bld) [#/Vol] 6.8 E9/L Normal 2.0 - 7.5 E9/L [facility] Neutrophils/100 WBC (Bld) 82.5 % High 36.0 - 75.0 % [facility] Platelet 126.0 E9/L Low 150.0 - 500.0 E9/L [facility] Platelet mean volume (Bld) [Entitic vol] 8.0 fL Normal 6.4 - 10.8 fL [facility] RBC (Bld) [#/Vol] 4.2 E12/L Low 4.3 - 5.9 E12/L Re misol Heme WBC corrected for nucl RBC Auto (Bld) [#/Vol] 8.3 E9/L Normal 4.0 - 11.0 E9/L [facility] Inpatient Clinical Summaryon 02-23-2024 Inpatient Clinical Summary [place] [id number] Clinical Summary Person Information: Name: SHAHANA GRACE Age: 74 Years : 1950 Sex: Female PCP: ALBERTINA ARNDT DO Marital Status: Race: White Ethnicity: Non- or Language: Palauan Visit Id: Visit Reason: Polydipsia; Nausea; Hyperglycemia; hyperglycemia Speciality: Acuity: Enc Type: Inpatient Med Service: Medical Arrival: 02/19/2024 13:27:15 Discharge: Dispo Type: Admitted as IP to this Hosp Address: [address] [place] [id number] Provider Notes: Diagnosis: 1:Complicated urinary tract infection; [...] disease Urge incontinence Glucosuria Urinary tract infection [employer] current use of anticoagulant Kidney stone Smoking [...] planned. With: Address: When: ALBERTINA ARNDT [address] [place] [address] [facility] (1) Comments: Doctor's office will call patient for hosptial follow up appointment. Patient Education Information: Diet - Basic Carbohydrate Counting (Custom) Normal [facility] Inpatient Patient Summaryon 02-23-2024 Inpatient Patient Summary [address] [address] Patient Discharge Instructions PERSON INFORMATION [...] thrombosis (DVT) prophylaxis Condition at Discharge: SHAHANA Pruett has been given the following list of [...] is planned. With: Address: When: ALBERTINA ARNDT [address] [place] [id number] Business (1) Comments: Doctor's office will call patient for hosptial follow up appointment. In the event that this physician does not participate in your insurance network, please consult with your insurance company to find a nearby participating provider. Comment: BASIA Souza BARBARA J, have received the attached patient education materials/instruction s and have verbalized understanding: Patient Signature Date Clinican/Nurse Signature Date HERE ARE THE MEDICATION CHANGES THAT OCCURRED DURING YOUR HOSPITAL STAY New Medications [facility], [address] [place], [place] [id number], [phone] NIFEdipine (NIFEdipine 30 mg ER Tab) 2 Tablets By Mouth every day. Refills: 5. Last Dose: ____Next Dose: ____ Medications to Continue Taking That Have Changed [facility], [address] [place], [place] [id number], [phone] START: ciprofloxacin (Cipro 500 mg Tab) 1 [...] ALL TIMES (more content not included)... Normal [facility] IntraOperative Documentson 0 02-23-2024 IntraOperative Documents [id number]# 1.00TIFF Normal [facility] Monitor Recordon 02-23-2024 Monitor Record [id number]# 1.00TIFF Normal [facility] BMPon 02-22-2024 Anion gap [Moles/Vol] 10 mmol/L Normal -16 [facility] Comment on above: Performed By: #### 2 [id number] #### [facility] [address] [place] [address] Calcium [Mass/Vol] 7.3 mg/dL Low 8.9-11.1 [facility] Comment on above: Performed By: #### 2 [id number] #### [facility] [address] [place] [address] Chloride [Moles/Vol] 118 mmol/L High 101-111 [facility] Comment on above: Performed By: #### 2 [id number] #### [facility] [address] [place] [address] CO2 [Moles/Vol] 19 mmol/L Low 21-31 [facility] Comment on above: Performed By: #### 2 [id number] #### [facility] [address] [place] [address] Creatinine [Mass/Vol] 1.5 mg/dL High 0.5-1.3 [facility] Comment on above: Performed By: #### 2 [id number] #### [facility] [address] [place] [address] Glucose [Mass/Vol] 254 mg/dL High 55-199 [facility] Comment on above: Performed By: #### 2 [id number] #### [facility] [address] [place] [address] Potassium [Moles/Vol] 3.9 mmol/L Normal 3.5-5.3 [facility] Comment on above: Performed By: #### 2 [id number] #### [facility] [address] [place] [address] Sodium [Moles/Vol] 143 mmol/L Normal 135-145 [facility] Comment on above: Performed By: #### 2 [id number] #### [facility] [address] [place] [address] Urea nitrogen [Mass/Vol] 33 mg/dL High 5-21 [facility] Comment on above: Performed By: #### 2 [id number] #### [facility] [address] [place] [address] Urea nitrogen/Creatinine [Mass ratio] 22 No Units High 10-20 [facility] Comment on above: Performed By: #### 2 [id number] #### [facility] [address] [place] [address] CBC w/ Auto Diffon 02-21- 4 Basophils/100 WBC (Bld) 0.2 % Normal 0.0-2.0 [facility] Comment on above: Performed By: #### 2 [id number] #### [facility] [address] [place] [address] Basophils/Leukocytes Auto (Bld) [Pure # fraction] 0.0 E9/L Normal 0.0-0.2 [facility] Comment on above: Performed By: #### 2 [id number] #### [facility] [address] [place] [address] Eosinophils (Bld) [#/Vol] 0.1 E9/L Normal 0.0-0.5 [facility] Comment on above: Performed By: #### 2 [id number] #### [facility] [address] [place] [address] Eosinophils/100 WBC (Bld) 1.5 % Normal 0.0-8.0 [facility] Comment on above: Performed By: #### 2 525903 #### [facility] [address] [place] [address] Erythrocyte distribution width (RBC) [Ratio] 13.9 % Normal 10.9-14.2 [facility] Comment on above: Performed By: #### 2 [id number] #### [facility] [address] [place] [address] Hematocrit (Bld) [Volume fraction] 39.5 % Normal 34.0-46.0 [facility] Comment on above: Performed By: #### 2 [id number] #### [facility] [address] [place] [address] Hemoglobin (Bld) [Mass/Vol] 13.1 g/dL Normal 12.0-16.0 [facility] Comment on above: Performed By: #### 2 499169 #### [facility] [address] [place] [address] Lymphocytes (Bld) [#/Vol] 0.8 E9/L Low 1.0-4.0 [facility] Comment on above: Performed By: #### 2 546310 #### [facility] [address] [place] [address] Lymphocytes/100 WBC (Bld) 9.5 % Low 14.0-50.0 [facility] Comment on above: Performed By: #### 2 [id number] #### [facility] [address] [place] [address] MCH (RBC) [Entitic mass] 30.8 pg Normal 27.0-34.0 [facility] Comment on above: Performed By: #### 2 [id number] #### [facility] [address] [place] [address] MCHC (RBC) [Mass/Vol] 33.2 g/dL Normal 31.4-36.0 [facility] Comment on above: Performed By: #### 2 728892 #### [facility] [address] [place] [address] MCV (RBC) [Entitic vol] 92.8 fL Normal 80.0-100.0 [facility] Comment on above: Performed By: #### 2 267459 #### [facility] [address] [place] [address] Monocytes (Bld) [#/Vol] 0.6 E9/L Normal 0.2-1.0 [facility] Comment on above: Performed By: #### 2 248092 #### [facility] [address] [place] [address] Neutrophils (Bld) [#/Vol] 7.3 E9/L Normal 2.0-7.5 [facility] Comment on above: Performed By: #### 2 [id number] #### [facility] [address] [place] [address] Neutrophils/100 WBC (Bld) 81.8 % High 36.0-75.0 [facility] Comment on above: Performed By: #### 2 052310 #### [facility] [address] [place] [address] Platelet mean volume (Bld) [Entitic vol] 8.5 fL Normal 6.4-10.8 [facility] Comment on above: Performed By: #### 2 496719 #### [facility] [address] [place] [address] Platelets (Bld) [#/Vol] 122.0 E9/L Low 150.0-500.0 [facility] Comment on above: Performed By: #### 2 526328 #### [facility] [address] [place] [address] RBC (Bld) [#/Vol] 4.3 E12/L Normal 4.3-5.9 [facility] Comment on above: Performed By: #### 2 083565 #### [facility] [address] [place] [address] WBC corrected for nucl RBC Auto (Bld) [#/Vol] 8.9 E9/L Normal 4.0-11.0 [facility] Comment on above: Performed By: #### 2 320707 #### [facility] [address] [place] [address] CHEMISTRYOrdered By: Lab ROP User on 02-22-2024 Glucose [Mass/Vol] 234 mg/dL High 55 - 99 mg/dL [facility] C POC Subsection Comment on above: Result Comment: [place] vanegas RN/ POC Device SN [id number] 1 Invalid Interpretation Code [facility] POC Subsection POC User ID [id number] 1 Invalid Interpretation Code [facility] POC Subsection POC Username CAREY HATHAWAY Invalid Interpretation Code [facility] POC Subsection CHEMISTRYOrdered By: SYSTEM SYSTEM on 02-22-2024 Anion [...] mg/mg High 10 - 20 [facility] Chem Capillary Glucose POCon 01-29 Glucose [Mass/Vol] 234 mg/dL High 55-99 [facility] Comment on above: Result Comment: [place] ANDRES Performed By: #### 2 [id number] #### [facility] [address] [place] [address] Glucose [Mass/Vol] 306 mg/dL High 55-99 [facility] Comment on above: Result Comment: [place] vanegas RN/ Performed By: #### 2 [id number] #### [facility] [address] [place] [address] Glucose [Mass/Vol] 303 mg/dL High 55-99 [facility] Comment on above: Result Comment: [place] vanegas RN/ Performed By: #### 2 [id number] #### [facility] [address] [place] [address] Glucose [Mass/Vol] 212 mg/dL High 55-99 [facility] Comment on above: Result Comment: Modesto vanegas RN/ Performed By: #### 2 [id number] #### [facility] [address] [place] [address] HEMATOLOGYOrdered By: SYSTEM SYSTEM on 02-22-2024 Basophils/100 WBC (Bld) 0.2 % Normal 0.0 - 2.0 % [facility] Heme Basophils/Leukocytes Auto (Bld) [Pure # fraction] 0.0 E9/L Normal 0.0 - 0.2 E9/L [facility]e Eosinophils (Bld) [#/Vol] 0.1 E9/L Normal 0.0 - 0.5 E9/L [facility]e Eosinophils/100 WBC (Bld) 1.5 % Normal 0.0 - 8.0 % [facility]e Erythrocyte distribution width (RBC) [Ratio] 13.9 % Normal 10.9 - 14.2 % [facility] Hematocrit (Bld) [Volume fraction] 39.5 % Normal 34.0 - 46.0 % [facility] Hemoglobin (Bld) [Mass/Vol] 13.1 g/dL Normal 12.0 - 16.0 gm/dL [facility] Lymphocytes (Bld) [#/Vol] 0.8 E9/L Low 1.0 - 4.0 E9/L [facility]e Lymphocytes/100 WBC (Bld) 9.5 % Low 14.0 - 50.0 % [facility]e MCH (RBC) [Entitic mass] 30.8 pg Normal 27.0 - 34.0 pg [facility]e MCHC (RBC) [Mass/Vol] 33.2 g/dL Normal 31.4 - 36.0 gm/dL [facility]e MCV (RBC) [Entitic vol] 92.8 fL Normal 80.0 - 100.0 fL [facility]e Monocytes (Bld) [#/Vol] 0.6 E9/L Normal 0.2 - 1.0 E9/L [facility]e Monocytes/100 WBC (Bld) 7.0 % Normal 4.0 - 14.0 % [facility] Neutrophils (Bld) [#/Vol] 7.3 E9/L Normal 2.0 - 7.5 E9/L [facility]e Neutrophils/100 WBC (Bld) 81.8 % High 36.0 - 75.0 % [facility]e Platelet mean volume (Bld) [Entitic vol] 8.5 fL Normal 6.4 - 10.8 fL [facility]e Platelets (Bld) [#/Vol] 122.0 E9/L Low 150.0 - 500.0 E9/L [facility] Heme RBC (Bld) [#/Vol] 4.3 E12/L Normal 4.3 - 5.9 E12/L Re misol Heme WBC corrected for nucl RBC Auto (Bld) [#/Vol] 8.9 E9/L Normal 4.0 - 11.0 E9/L [facility]e Inpatient Clinical Summaryon 02-22-2024 Inpatient Clinical Summary [place] [address] Clinical Summary Person Information: Name: SHAHANA GRACE Age: 74 Years : 1950 Sex: Female PCP: ALBERTINA ARNDT DO Marital Status: Race: White Ethnicity: Non- or Language: Palauan Visit Id: Visit Reason: Polydipsia; Nausea; Hyperglycemia; hyperglycemia Speciality: Acuity: Enc Type: Inpatient Med Service: Medical Arrival: 02/19/2024 13:27:15 Discharge: Dispo Type: Admitted as IP to this Hosp Address: [address] [place] [id number] Provider Notes: Diagnosis: 1:Complicated urinary tract infection; [...] disease Urge incontinence Glucosuria Urinary tract infection 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 Comment: IBASIA BARBARA J, have received the attached patient [...] to and afte (more content not included)... [facility] Interdisciplinary Note - Galo e Manageron 02-22-2024 Interdisciplinary Note - Automotive Designer Pt is awake and alert in bed, previously rounded with Dr. Barrett. No family present. Pt is on phone with family providing updates at this time. Declines any concerns or DC needs. Medicare rights reviewed. . PCP verified and insurance information reviewed and DME discussed. Contact information provided and white board updated. [facility] Comment on above: Result Comment: Elec tronically Signed By: Samir MARCUM, Ayleen\.hector\Date and Time Signed: 02/22/24 09:22 EDT Monitor Recordon 02-22-2024 Monitor Record [id number]# 1.00TIFF [facility] Monitor Record [id number]# 1.00TIFF [facility] Monitor Record [id number]# 1.00TIFF [facility] Progress Note-Physicianon Progress Note-Physician Subjective Day #4 MARNIE Clydeyoandy Patient seen and examined this morning. She [...] Lymph Auto: 9.5 % Low (02/22/24 05:20:00) Tyrrell Auto: 7 % (02/22/24 05:20:00) Eos Auto: 1.5 % (02/22/24 05:20:00) Basophil Auto: 0.2 % (02/22/24 05:20:00) Neutro Absolute: 7.3 E9/L (02/22/24 05:20:00) Lymph Absolute: 0.8 E9/L Low (02/22/24 05:20:00) Tyrrell Absolute: 0.6 E9/L (02/22/24 05:20:00) Eos Absolute: [...] mg/dL High (02/22/24 11:20:00) POC Device SN: [id number] (02/22/24 11:20:00) POC User ID: [id number] (02/22/24 11:20:00) POC Username: POC Username (02/22/24 [...] p.o. 7. (more content not included)... Normal [facility] Comment on above: Result Comment: Elec tronically Signed By: Jhonny Barrett DObr\Date and Time Signed: 02/22/24 13:48 EDT eGFRon 02-22-2024 eGFR 37 mL/min/1.73 m2 Low >=59 [facility] Comment on above: Order Comment: Order added by Discern Expert. Performed By: #### 1 [id number] #### [facility] [address] [place] [address] BMPon 02-21-2024 Anion gap [Moles/Vol] 13 mmol/L Normal 6-16 [facility] Comment on above: Performed By: #### 2 [id number] #### [facility] [address] [place] [address] Calcium [Mass/Vol] 7.7 mg/dL Low 8.9-11.1 [facility] Comment on above: Performed By: #### 2 [id number] #### [facility] [address] [place] [address] Chloride [Moles/Vol] 114 mmol/L High 101-111 [facility] Comment on above: Performed By: #### 2 741810 #### [facility] [address] [place] [address] CO2 [Moles/Vol] 20 mmol/L Low 21-31 [facility] Comment on above: Performed By: #### 2 815691 #### [facility] [address] [place] [address] Creatinine [Mass/Vol] 1.7 mg/dL High 0.5-1.3 [facility] Comment on above: Performed By: #### 2 770238 #### [facility] [address] [place] [address] Glucose [Mass/Vol] 289 mg/dL High 55-199 [facility] Comment on above: Performed By: #### 2 [id number] #### [facility] [address] [place] [address] Potassium [Moles/Vol] 4.2 mmol/L Normal 3.5-5.3 [facility] Comment on above: Performed By: #### 2 158972 #### [facility] [address] [place] [address] Sodium [Moles/Vol] 143 mmol/L Normal 135-145 [facility] Comment on above: Performed By: #### 2 [id number] #### [facility] [address] [place] [address] Urea nitrogen [Mass/Vol] 37 mg/dL High 5-21 [facility] Comment on above: Performed By: #### 2 [id number] #### [facility] [address] [place] [address] Urea nitrogen/Creatinine [Mass ratio] 22 No Units High 10-20 [facility] Comment on above: Performed By: #### 2 [id number] #### [facility] [address] [place] [address] C Urineon 02-21-2024 Bacteria identified Cx Nom [...] Locations R1: This test was performed at: [facility], [address] [place] [address], [address]- , , [facility] Comment on above: Performed By: #### 2 [id number] #### [facility] [address] [place] [address] CHEMISTRYOrdered By: SYSTEM SYSTEM on 02-21-2024 Anion gap [Moles/Vol] 13 mmol/L Normal 6 - 16 mEq/L Remisol Chem Calcium [Mass/Vol] 7.7 mg/dL Low 8.9 - 11.1 mg/dL Remisol Chem Chloride [Moles/Vol] 114 mmol/L High 101 - 111 mmol/ L [facility] Chem CO2 [Moles/Vol] 20 mmol/L Low 21 - 31 mmol/L Remis ol Chem Creatinine [Mass/Vol] 1.7 mg/dL High 0.5 - 1.3 mg/dL Remisol Chem eGFR 31 mL/min/1.73 m2 Low >=59mL/min /1.73 m2 Remisol Chem Glucose [Mass/Vol] 289 mg/dL High 55 - 199 mg/dL Re misol Chem Potassium [Moles/Vol] 4.2 mmol/L Normal 3.5 - 5.3 mmol/L Remisol Chem Sodium [Moles/Vol] 143 mmol/L Normal 135 - 145 mmol/L Remisol Chem Urea nitrogen [Mass/Vol] 37 mg/dL High 5 - 21 mg/dL Rem[facility] Chem Urea nitrogen/Creatinine [Mass ratio] 22 mg/mg High 10 - 20 [facility] Chem Capillary Glucose POCon 01-29 Glucose [Mass/Vol] 323 mg/dL High 55-99 [facility] Comment on above: Result Comment: [place] ANDRES Performed By: #### 2 [id number] #### [facility] [address] [place] [address] Glucose [Mass/Vol] 240 mg/dL High 55-99 [facility] Comment on above: Result Comment: [place] ANDRES Performed By: #### 2 [id number] #### [facility] [address] [place] [address] Glucose [Mass/Vol] 287 mg/dL High 55-99 [facility] Comment on above: Performed By: #### 2 [id number] #### [facility] [address] [place] [address] Glucose [Mass/Vol] 201 mg/dL High 55-99 [facility] Comment on above: Result Comment: [place] ANDRES Performed By: #### 2 [id number] #### [facility] [address] [place] [address] Glucose [Mass/Vol] 194 mg/dL High 55-99 [facility] Comment on above: Result Comment: Repe at Test Performed By: #### 2 [id number] #### [facility] [address] [place] [address] Consent for Anesthesiaon Consent for Anesthesia [id number]# 1.00TIFF Normal [facility] Consent for Procedure/Surger yon 02-21-2024 Consent for Procedure/Surgery [id number]# 1.00TIFF Normal [facility] BjuU0tql 02-21-2024 HbA1c (Bld) [Mass fraction] 11.3 % High <=5.9 [facility] Comment on above: Performed By: #### 7 [id number] #### [facility] [address] [place] [address] Interdisciplinary Note - Galo e Manageron 02-21-2024 Interdisciplinary Note - Automotive Designer Patient is awake and alert in bed, [...] information provided and white board updated. Normal [facility] Comment on above: Result Comment: Elec tronically Signed By: Samir MARCUM, Ayleen\.hector\Date and Time Signed: 02/21/24 09:45 EDT Interdisciplinary Note - Soc ial Workeron 02-21-2024 Interdisciplinary Note - Coal Bagger There was a positive SDOH screen for safety received in error. This patient lives with her spouse and has been for 40 years. She voiced that she has no safety concerns. There were no psychosocial needs identified. Normal [facility] IntraOperative Documentson 0 02-21-2024 IntraOperative Documents [id number]# 1.00TIFF [facility] Main OR Intraoperative Recor don 02-21-2024 Main OR Intraoperative Record IntraOp Document Type FT Summary Primary Physician: Glynn DENT MD Finalized Date/Time: 02/21/24 14:17:37 Pt. Name: SHAHANA GRACE /Sex: 1950 Female Med Rec #: [id number] Physician: Glynn ALARCON DO Financial #: [id number] Pt. Type: I Room/Bed: [place] [address] Admit/Disch: 02/19/24 13:27:15 - Institution: Case Times [...] 2 Entry 3 Case Attendee MD Ingrid, oJssy DENT MD, Glynn Reid RN, Shara Muñiz Role Performed Anesthesiologist of Surgeon - Primary Asset Protection Representative - Primary Record Time In 02/20/24 10:16:00 [...] RT(R), Fallon Role Performed Scrub - Primary HOGSHEAD BUILDER Car Sweeper Time In 02/20/24 10:16:00 02/20/24 10:16:00 02/20/24 [...] and tissue Entry 1 Skin Integrity Intact, [place], Warm, and Skin Abnormality No Dry Outcomes Met? Yes Last Modified By: Shara Reid RN 02/20/24 11:11:55 Post-Care Text: The patient is free from signs and symptoms of injur (more content not included)... Normal [facility] Monitor Recordon 02-21-2024 Monitor Record [id number]# 1.00TIFF Normal [facility] Monitor Record [id number]# 1.00TIFF [facility] Monitor Record [id number]# 1.00TIFF Normal [facility] Monitor Record [id number]# 1.00TIFF Normal [facility] Progress Note-Physicianon Progress Note-Physician Subjective Day [...] High (02/21/24 09:19:00) CO2: 20 mmol/L Low (02/21/24:19:00) AGAP: 13 mEq/L (02/21/24 09:19:00) Calcium Lvl: 7.7 mg/dL Low (02/21/24 09:19:00) Glucose Cap: 287 mg/dL High (02/21/24 11:33:00) POC Device SN: [id number] (02/21/24 11:33:00) POC User ID: [id number] (02/21/24 11:33:00) POC Username: TYRONE ZAPATA (02/21/24 [...] as needed (more content not included)... Normal [facility] Comment on above: Result Comment: Elec tronically Signed By: Jhonny Barrett DO.br\Date and Time Signed: 02/21/24 12:11 EDT eGFRon 02-21-2024 eGFR 31 mL/min/1.73 m2 Low >=59 [facility] Comment on above: Order Comment: Order added by Discern Expert. Performed By: #### 1 [id number] #### [facility] [address] [place] [address] BMPon 02-20-2024 Anion gap [Moles/Vol] 13 mmol/L Normal 6-16 [facility] Comment on above: Performed By: #### 2 [id number] #### [facility] [address] [place] [address] Calcium [Mass/Vol] 8.1 mg/dL Low 8.9-11.1 [facility] Comment on above: Performed By: #### 2 [id number] #### [facility] [address] [place] [address] Chloride [Moles/Vol] 112 mmol/L High 101-111 [facility] Comment on above: Performed By: #### 2 028197 #### [facility] [address] [place] [address] CO2 [Moles/Vol] 24 mmol/L Normal 21-31 [facility] Comment on above: Performed By: #### 2 869140 #### [facility] [address] [place] [address] Creatinine [Mass/Vol] 2.1 mg/dL High 0.5-1.3 [facility] Comment on above: Performed By: #### 2 830565 #### [facility] [address] [place] [address] Glucose [Mass/Vol] 301 mg/dL High 55-199 [facility] Comment on above: Performed By: #### 2 739276 #### [facility] [address] [place] [address] Potassium [Moles/Vol] 4.4 mmol/L Normal 3.5-5.3 [facility] Comment on above: Performed By: #### 2 512810 #### [facility] [address] [place] [address] Sodium [Moles/Vol] 145 mmol/L Normal 135-145 [facility] Comment on above: Performed By: #### 2 552809 #### [facility] [address] [place] [address] Urea nitrogen [Mass/Vol] 38 mg/dL High 5-21 [facility] Comment on above: Performed By: #### 2 958188 #### [facility] [address] [place] [address] Urea nitrogen/Creatinine [Mass ratio] 18 No Units Normal 10-20 [facility] Comment on above: Performed By: #### 2 711497 #### [facility] [address] [place] [address] CBC w/ Auto Diffon 4 Basophils/100 WBC (Bld) 0.3 % Normal 0.0-2.0 [facility] Comment on above: Performed By: #### 2 103121 #### [facility] [address] [place] [address] Basophils/Leukocytes Auto (Bld) [Pure # fraction] 0.0 E9/L Normal 0.0-0.2 [facility] Comment on above: Performed By: #### 2 342682 #### [facility] [address] [place] [address] Eosinophils (Bld) [#/Vol] 0.0 E9/L Normal 0.0-0.5 [facility] Comment on above: Performed By: #### 2 120046 #### [facility] [address] [place] [address] Eosinophils/100 WBC (Bld) 0.1 % Normal 0.0-8.0 [facility] Comment on above: Performed By: #### 2 893030 #### [facility] [address] [place] [address] Erythrocyte distribution width (RBC) [Ratio] 14.0 % Normal 10.9-14.2 [facility] Comment on above: Performed By: #### 2 [id number] #### [facility] [address] [place] [address] Hematocrit (Bld) [Volume fraction] 45.0 % Normal 34.0-46.0 [facility] Comment on above: Performed By: #### 2 089154 #### [facility] [address] [place] [address] Hemoglobin (Bld) [Mass/Vol] 14.8 g/dL Normal 12.0-16.0 [facility] Comment on above: Performed By: #### 2 220808 #### [facility] [address] [place] [address] Lymphocytes (Bld) [#/Vol] 1.3 E9/L Normal 1.0-4.0 [facility] Comment on above: Performed By: #### 2 546243 #### [facility] [address] [place] [address] Lymphocytes/100 WBC (Bld) 9.6 % Low 14.0-50.0 [facility] Comment on above: Performed By: #### 2 783922 #### [facility] [address] [place] [address] MCH (RBC) [Entitic mass] 30.8 pg Normal 27.0-34.0 [facility] Comment on above: Performed By: #### 2 486826 #### [facility] [address] [place] [address] MCHC (RBC) [Mass/Vol] 32.9 g/dL Normal 31.4-36.0 [facility] Comment on above: Performed By: #### 2 783246 #### [facility] [address] [place] [address] MCV (RBC) [Entitic vol] 93.5 fL Normal 80.0-100.0 [facility] Comment on above: Performed By: #### 2 404165 #### [facility] [address] [place] [address] Monocytes (Bld) [#/Vol] 0.9 E9/L Normal 0.2-1.0 [facility] Comment on above: Performed By: #### 2 733693 #### [facility] [address] [place] [address] Neutrophils (Bld) [#/Vol] 11.0 E9/L High 2.0-7.5 [facility] Comment on above: Performed By: #### 2 059328 #### [facility] [address] [place] [address] Neutrophils/100 WBC (Bld) 82.9 % High 36.0-75.0 [facility] Comment on above: Performed By: #### 2 029494 #### [facility] [address] [place] [address] Platelet mean volume (Bld) [Entitic vol] 8.2 fL Normal 6.4-10.8 [facility] Comment on above: Performed By: #### 2 013956 #### [facility] [address] [place] [address] Platelets (Bld) [#/Vol] 144.0 E9/L Low 150.0-500.0 [facility] Comment on above: Performed By: #### 2 070369 #### [facility] [address] [place] [address] RBC (Bld) [#/Vol] 4.8 E12/L Normal 4.3-5.9 [facility] Comment on above: Performed By: #### 2 722787 #### [facility] [address] [place] [address] WBC corrected for nucl RBC Auto (Bld) [#/Vol] 13.2 E9/L High 4.0-11.0 [facility] Comment on above: Performed By: #### 2 196953 #### [facility] [address] [place] [address] CHEMISTRYOrdered By: Abisai Lutz on 02-20-2024 HbA1c (Bld) [Mass fraction] 11.3 % High <=5.9% [facility] ChemAutoSS CT Abdomen/Pelvis w/o Contra ston 02-20-2024 [...] Delfino Carrasco DO Transcribed by: KAMINI Technologist: ORG Technical Comments Rectal Contrast Given? No Oral contrast amount in ml's: 0 Normal [facility] Capillary Glucose POCon 01-29 Glucose [Mass/Vol] 302 mg/dL High 55-99 [facility] Comment on above: Result Comment: [place] ANDRES Performed By: #### 2 [id number] #### [facility] [address] [place] [address] Glucose [Mass/Vol] 262 mg/dL High 55-99 [facility] Comment on above: Result Comment: [place] ANDRES Performed By: #### 2 [id number] #### [facility] [address] [facility] [place] [address] Glucose [Mass/Vol] 192 mg/dL High 55-99 [facility] Comment on above: Result Comment: [place] ANDRES Performed By: #### 2 [id number] #### [facility] [address] [facility] [place] [address] Glucose [Mass/Vol] 202 mg/dL High 55-99 [facility] Comment on above: Result Comment: [place] ANDRES Performed By: #### 2 [id number] #### [facility] [address] [place] [address] Glucose [Mass/Vol] 249 mg/dL High 55-99 [facility] Comment on above: Result Comment: [place] ANDRES Performed By: #### 2 [id number] #### [facility] [address] [facility] [place] [address] Glucose [Mass/Vol] 384 mg/dL High 55-99 [facility] Comment on above: Result Comment: [place] ANDRES Performed By: #### 2 [id number] #### [facility] [address] [facility] [place] [address] Consultation Noteon 02-20-20 24 Consultation Note Patient: SHAHANA GRACE Age: 74 years Sex: Female : 1950 Associated Diagnoses: None Author: Glynn DENT MD Chief Complaint 02/19/2024 20:18 EDT Hyperglycemia 02/19/2024 13:28 EDT pt presents to ed via [facility] d/t hyperglycemia. pt reports not feeling well [...] BID, # 10 tab(s), Refills(s) 0, Pharmacy: [facility], 160.5, cm, 08/05/23 13:21:00 EST, Height/Length Dosing, 83, kg, 08/05/23 13:21:00 EST, Weight Dosing Klor-Con/EF 25 mEq oral tablet, effervescent: 25 mEq = 1 tab(s), Oral, Daily, dissolve in 4 ounces of water, # 30 tab(s), Refills(s) 10, Pharmacy: [facility], 158, cm, 02/08/23 12:39:00 EDT, Height/Length Dosing, 82, kg, 02/08/23 12:39:00 EDT, Weight Dosing Liver panel: Liver panel, Print Requisition, Supply Metoprolol tartrate 50 mg Tab: 50 mg = 1 tab(s), Oral, BID, # 120 tab(s), Refills(s) 0, [id number] 157.5, cm, 06/10/21 10:56:00 EDT, Height/Length Dosing, 79.4, kg, 06/10/21 10:56:00 EDT, Weight Dosing NS Flush 10 mL: See Instructions, 60 EA, Refill(s) 0, 10 mL IV Pushprior to and after administration of fluconazole and as needed Vesicare 10 mg Tab: 10 mg = 1 tab(s), Oral, Daily, # 14 tab(s), Refills(s) 0, Pharmacy: [facility], 158, cm, 05/09/23 8:54:00 EDT, Height/Length Dosing, 90.4, kg, 05/09/23 8:54:00 EDT, Weight Dosing lisinopril 5 mg Tab: 5 mg = 1 tab(s), Oral, BID, # 120 tab(s), Refills(s) 0, [id number] 157.5, cm, 06/10/21 10:56:00 EDT, Height/Length Dosing, 79.4, kg, 06/10/21 10:56:00 EDT, Weight Dosing meclizine 12.5 mg Tab: 12.5 mg = 1 tab(s), Oral, TID, PRN for dizziness, # 15 tab(s), Refills(s) 0, Pharmacy: [facility], 157, cm, 11/13/22 23:40:00 EDT, Height/Length Dosing, 83.2, kg, 11/13/22 23:40:00 EDT, Weight Dosing Documented Medications Documented Basaglar KwikPen 100 units/mL subcutaneous solution: 40 unit(s), SubCutaneous, qAM, Refills(s) 0, Blood glucose Plavix 75 mg Tab: See Instructions, Mo (more content not included)... Normal [facility] Comment on above: Result Comment: Elec tronically Signed By: JAILENE CHISHOLM, Glynn Neff.hector\Date and Time Signed: 02/20/24 10:48 EDT ED Note-Physicianon 02-20-20 ED Note-Physician Basic Information Time Seen: Cj CASTANEDA, Luis Otto 02/19/2024 13:34 Chief Complaint pt presents to ed via [facility] d/t hyperglycemia. pt reports not feeling well [...] mL, Inject (more content not included)... Normal [facility] Comment on above: Result Comment: Elec tronically Signed By: Cj CASTANEDA, Luis Otto\.br\Date and Time Signed: 02/19/24 20:04 EDT\.br\Electronically Co-Signed By: Rose Alvarado M.D.\.br\Date and Time Co-Signed: 02/20/24 07:08 EDT HEMATOLOGYOrdered By: SYSTEM SYSTEM on 02-20-2024 Basophils/100 WBC (Bld) 0.3 % Normal 0.0 - 2.0 % Remisol Heme Basophils/Leukocytes Auto (Bld) [Pure # fraction] 0.0 E9/L Normal 0.0 - 0.2 E9/L Remisol Heme Eosinophils (Bld) [#/Vol] 0.0 E9/L Normal 0.0 - 0.5 E9/L Remisol Heme Eosinophils/100 WBC (Bld) 0.1 % Normal 0.0 - 8.0 % Remisol Heme Erythrocyte distribution width (RBC) [Ratio] 14.0 % Normal 10.9 - 14.2 % Remisol Heme Hematocrit (Bld) [Volume fraction] 45.0 % Normal 34.0 - 46.0 % Remisol Heme Hemoglobin (Bld) [Mass/Vol] 14.8 g/dL Normal 12.0 - 16.0 gm/dL Remisol Heme Lymphocytes (Bld) [#/Vol] 1.3 E9/L Normal 1.0 - 4.0 E9/L Remisol Heme Lymphocytes/100 WBC (Bld) 9.6 % Low 14.0 - 50.0 % Remisol Heme MCH (RBC) [Entitic mass] 30.8 pg Normal 27.0 - 34.0 pg Remisol Heme MCHC (RBC) [Mass/Vol] 32.9 g/dL Normal 31.4 - 36.0 gm/dL Remisol Heme MCV (RBC) [Entitic vol] 93.5 fL Normal 80.0 - 100.0 fL Remisol Heme Monocytes (Bld) [#/Vol] 0.9 E9/L Normal 0.2 - 1.0 E9/L Remisol Heme Monocytes/100 WBC (Bld) 7.1 % Normal 4.0 - 14.0 % Remisol Heme Neutrophils (Bld) [#/Vol] 11.0 E9/L High 2.0 - 7.5 E9/L Remisol Heme Neutrophils/100 WBC (Bld) 82.9 % High 36.0 - 75.0 % Remisol Heme Platelet mean volume (Bld) [Entitic vol] 8.2 fL Normal 6.4 - 10.8 fL Remisol Heme Platelets (Bld) [#/Vol] 144.0 E9/L Low 150.0 - 500.0 E9/L Remisol Heme RBC (Bld) [#/Vol] 4.8 E12/L Normal 4.3 - 5.9 E12/L Re misol Heme WBC corrected for nucl RBC Auto (Bld) [#/Vol] 13.2 E9/L High 4.0 - 11.0 E9/L Remisol Heme Main OR Intraoperative Recor don 02-20-2024 Main OR Intraoperative Record IntraOp Document Type FT Summary Primary Physician: Glynn DENT MD Finalized Date/Time: 02/20/24 13:31:52 Pt. Name: SHAHANA GRACE/Sex: 1950 Female Med Rec #: [id number] Physician: Glynn ALARCON DO Financial #: [id number] Pt. Type: I Room/Bed: N305 Admit/Disch: 02/19/24 13:27:15 - Institution: Case Times FT Entry 1 Patient Times In Room 02/20/24 10:16:00 Out Room 02/20/24 10:45:00 Procedure Times Start 02/20/24 10:29:00 Stop 02/20/24 10:37:00 Anesthesia Times Start 02/20/24 10:16:00 Stop 02/20/24 10:45:00 Last Modified By: Franklin MARCUM, Shara Yang P 02/20/24 13:29:15 Case Attendance FT Entry 1 Entry 2 Entry 3 Case Attendee MD Ingrid, Jossy DENT MD, Glynn Reid RN, Shara Muñiz Role Performed Anesthesiologist of Surgeon - Primary Asset Protection Representative - Primary Record Time In 02/20/24 10:16:00 [...] RT(R), Fallon Role Performed Scrub - 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 Yes Last Modified By: Shara Reid RN 02/20/24 13:31:42 Post-Care Text: The patient is [...] and tissue Entry 1 Skin Integrity Intact, [place], Warm, and Skin Abnormality No Dry Outcomes Met? Yes Last Modified By: Shara Reid RN 02/20/24 11:11:55 Post-Care Text: The patient is free from signs and symptoms of injury caused by extraneous objects Patient Positioning FT Pre-Care Text: Identi (more content not included)... Normal [facility] Main OR PACU I Recordon 01-29 Main OR PACU I Record PACU Phase I Document Type FT Summary Primary Physician: Glynn DENT MD Finalized Date/Time: 02/20/24 11:40:13 Pt. Name: SHAHANA GRACE./Sex: 1950 Female Med Rec #: [id number] Physician: Glynn ALARCON DO Financial #: [id number] Pt. Type: I Room/Bed: [place] [address] Admit/Disch: 02/19/24 13:27:15 - Institution: Case Times [...] Outcomes Met? Yes Last Modified By: Fannie Macros RN 02/20/24 11:39:56 Post-Care Text: The patient [...] By: Fannie Marcos RN 02/20/24 11:40 Normal [facility] Main OR Preoperative Recordo n 02-20-2024 Main OR Preoperative Record Holding Area Document Type FT Summary Primary Physician: Glynn DENT MD Finalized Date/Time: 02/20/24 13:32:52 Pt. Name: SHAHANA GRACE David Echavarria/Sex: 1950 Female Med Rec #: [id number] Physician: Glynn ALARCON DO Financial #: [id number] Pt. Type: I Room/Bed: [place] [address] Admit/Disch: 02/19/24 13:27:15 - Institution: Case Times [...] By: Shara Reid RN 02/20/24 13:32 Normal [facility] Monitor Recordon 02-20-2024 Monitor Record [id number]# 1.00TIFF Normal [facility] Monitor Record [id number]# 1.00TIFF Normal [facility] Monitor Record [id number]# 1.00TIFF Normal [facility] Monitor Record [id number]# 1.00TIFF Normal [facility] Monitor Record [id number]# 1.00TIFF Normal [facility] Monitor Record [id number]# 1.00TIFF Normal [facility] Operative Reporton Operative Report Patient: SHAHANA GRACE Age: 74 years Sex: Female : 1950 Associated Diagnoses: None Author: JAILENE CHISHOLM, Glynn Mcdermott Postoperative Information Procedure: 1. Cystoscopy. 2. Bilateral retrograde pyelogram. 3. Placement of 6 Swazi variable length right ureteral stent. #4. Extraction of ureteral calculus fragment with flexible grasping forceps. Date/ Time: 02/20/2024 10:49:00 Preoperative Diagnosis: Obstructing right ureteral calculi. Right hydronephrosis. GIOVANNY. Left flank pain. Postoperative Diagnosis: same, Same as preop diagnosis but no evidence of left ureteral calculi or hydronephrosis.. Procedure: Anesthesia Method: General. Performed by: Jailene CHISHOLM, Glynn Tipton. Findings: 1. Distal right ureteral calculi. 2. No evidence of left ureteral calculi. 3. Cystitis. Specimens Removed: Stone fragment from right ureter sent for stone analysis. Prosthesis: 6 Swazi variable length right ureteral stent. . Estimated Blood Loss: 5 ml. Orders Complications: None. Notes: Indications: This lady has a significant right ureteral stone burden with ipsilateral hydronephrosis and GIOVANNY. She also has left-sided flank pain. She [...] 2% lidocaine gel per urethra. A 22 Swazi Stortz cystoscope was passed per urethra and into the bladder. Careful panendoscopy in the bladder revealed diffuse cystitis with copious inflammatory debris on the base of the bladder. This was irrigated out. There was no evidence of any tumors or stones within the bladder. I then passed a 8 Swazi cone-tip catheter through the scope and cannulated [...] the kidney. I then slid a 6 Swazi variable length ureteral stent over the wire up the ureter and into the kidney. The wire was removed and there were good curls in the kidney and in the bladder. The bladder was drained of its contents and the scope was then removed. She was then transferred to a gurney bed and wheeled to PACU in stable condition. Considering how irritated her bladder appeared, she may require Diflucan postoperatively considering she had budding yeast on her UA through the ER and that she also had fungemia during her last hospitalization.. Anesthesia type: General. Normal [facility] Comment on above: Result Comment: Elec tronically Signed By: JAILENE CHISHOLM, Glynn Neff.hector\Date and Time Signed: 02/20/24 10:57 EDT XR Chest 2 Viewson XR Chest 2 Views Exam Date/Time: 02/19/2024 [...] Delfino Carrasco DO Transcribed by: KAMINI Technologist: ANTHONY Technical Comments Radiation Dose: Ka,r in mGy = na DAP = na Normal [facility] XR Urography Retrograde Bila teralon 02-20-2024 XR Urography Retrograde Bilateral Exam Date/Time: [...] Delfino Carrasco DO Transcribed by: KAMINI Technologist: ANTHONY Technical Comments Radiation Dose: Ka,r in mGy = 12.80 DAP = 1080.56 Normal [facility] eGFRon 02-20-2024 eGFR 24 mL/min/1.73 m2 Low >=59 [facility] Comment on above: Order Comment: Order added by Discern Expert. Performed By: #### 1 [id number] #### [facility] [address] [place] [address] BMPon 02-19-2024 Calcium [Mass/Vol] 9.2 mg/dL Normal 8.9-11.1 [facility] Comment on above: Performed By: #### 2 [id number] #### [facility] [address] [place] [address] Chloride [Moles/Vol] 103 mmol/L Normal 101-111 [facility] Comment on above: Performed By: #### 2 [id number] #### [facility] [address] [place] [address] CO2 [Moles/Vol] 25 mmol/L Normal 21-31 [facility] Comment on above: Performed By: #### 2 [id number] #### [facility] [address] [place] [address] Potassium [Moles/Vol] 4.4 mmol/L Normal 3.5-5.3 [facility] Comment on above: Performed By: #### 2 [id number] #### [facility] [address] [place] [address] Sodium [Moles/Vol] 141 mmol/L Normal 135-145 [facility] Comment on above: Performed By: #### 2 [id number] #### [facility] [address] [place] [address] Glucose [Mass/Vol] 559 mg/dL Abnormal 55-199 [facility] Comment on above: Result Comment: Crit ical Result [id number] Called to and read back by: MADELINE FERNANDEZ at: 02/19/2024 14:58:18 by:PETE Critical Result Verified by Repeat Analysis Performed By: #### 2 [id number] #### [facility] [address] [place] [address] Anion gap [Moles/Vol] 17 mmol/L High 6-16 [facility] Comment on above: Performed By: #### 2 [id number] #### [facility] [address] [place] [address] Creatinine [Mass/Vol] 2.1 mg/dL High 0.5-1.3 [facility] Comment on above: Performed By: #### 2 [id number] #### [facility] [address] [place] [address] Urea nitrogen [Mass/Vol] 35 mg/dL High 5-21 [facility] Comment on above: Performed By: #### 2 [id number] #### [facility] [address] [place] [address] Urea nitrogen/Creatinine [Mass ratio] 17 No Units Normal 10-20 [facility] Comment on above: Performed By: #### 2 [id number] #### [facility] [address] [place] [address] [facility] Beta HB Qnt 0.72 mmol/L High 0.02-0.27 [facility] Comment on above: Performed By: #### 2 [id number] #### [facility] [address] [place] [address] CBC w/ Auto Diffon 4 Basophils/100 WBC (Bld) 0.2 % Normal 0.0-2.0 [facility] Comment on above: Performed By: #### 2 [id number] #### [facility] [address] [place] [address] Basophils/Leukocytes Auto (Bld) [Pure # fraction] 0.0 E9/L Normal 0.0-0.2 [facility] Comment on above: Performed By: #### 2 [id number] #### [facility] [address] [place] [address] Eosinophils (Bld) [#/Vol] 0.0 E9/L Normal 0.0-0.5 [facility] Comment on above: Performed By: #### 2 [id number] #### [facility] [address] [place] [address] Eosinophils/100 WBC (Bld) 0.0 % Normal 0.0-8.0 [facility] Comment on above: Performed By: #### 2 [id number] #### [facility] [address] [place] [address] Erythrocyte distribution width (RBC) [Ratio] 13.5 % Normal 10.9-14.2 [facility] Comment on above: Performed By: #### 2 [id number] #### [facility] [address] [place] [address] Hematocrit (Bld) [Volume fraction] 54.0 % High 34.0-46.0 [facility] Comment on above: Performed By: #### 2 [id number] #### [facility] [address] [place] [address] Hemoglobin (Bld) [Mass/Vol] 17.8 g/dL High 12.0-16.0 [facility] Comment on above: Performed By: #### 2 520602 #### [facility] [address] [place] [address] Lymphocytes (Bld) [#/Vol] 0.6 E9/L Low 1.0-4.0 [facility] Comment on above: Performed By: #### 2 [id number] #### [facility] [address] [place] [address] Lymphocytes/100 WBC (Bld) 4.0 % Low 14.0-50.0 [facility] Comment on above: Performed By: #### 2 [id number] #### [facility] [address] [place] [address] MCH (RBC) [Entitic mass] 30.5 pg Normal 27.0-34.0 [facility] Comment on above: Performed By: #### 2 198804 #### [facility] [address] [place] [address] MCHC (RBC) [Mass/Vol] 33.0 g/dL Normal 31.4-36.0 [facility] Comment on above: Performed By: #### 2 049014 #### [facility] [address] [place] [address] MCV (RBC) [Entitic vol] 92.2 fL Normal 80.0-100.0 [facility] Comment on above: Performed By: #### 2 274405 #### [facility] [address] [place] [address] Monocytes (Bld) [#/Vol] 0.8 E9/L Normal 0.2-1.0 [facility] Comment on above: Performed By: #### 2 [id number] #### [facility] [address] [place] [address] Neutrophils (Bld) [#/Vol] 12.9 E9/L High 2.0-7.5 [facility] Comment on above: Performed By: #### 2 629213 #### [facility] [address] [place] [address] Neutrophils/100 WBC (Bld) 90.2 % High 36.0-75.0 [facility] Comment on above: Performed By: #### 2 [id number] #### [facility] [address] [place] [address] Platelet mean volume (Bld) [Entitic vol] 8.2 fL Normal 6.4-10.8 [facility] Comment on above: Performed By: #### 2 [id number] #### [facility] [address] [place] [address] Platelets (Bld) [#/Vol] 140.0 E9/L Low 150.0-500.0 [facility] Comment on above: Performed By: #### 2 [id number] #### [facility] [address] [place] [address] RBC (Bld) [#/Vol] 5.9 E12/L Normal 4.3-5.9 [facility] Comment on above: Performed By: #### 2 [id number] #### [facility] [address] [place] [address] WBC corrected for nucl RBC Auto (Bld) [#/Vol] 14.3 E9/L High 4.0-11.0 [facility] Comment on above: Performed By: #### 2 [id number] #### [facility] [address] [place] [address] CHEMISTRYOrdered By: SYSTEM SYSTEM on 02-19-2024 Lactic Acid Lvl 1.5 mmol/L Normal 0.5 - 2.2 mmol/L Rem isol Chem Beta HB Qnt 0.72 mmol/L High 0.02 - 0.27 mmol/L Remisol Chem Troponin HS 42.60 pg/mL Invalid Interpretation Code [...] Sensitivity Troponin I Instructions For Use, Jairo Crowley, March 2018) Albumin [Mass/Vol] 4.1 g/dL Normal 3.3 - [...] Result Verified by Repeat Analysis Interpretive Data: T he 95% CI (Confidence [...] 23.4 s Low 25.1 - 36.5 second(s) [facility] Auto Coag Comment on above: Interpretive Data: P arameter 15 days - 4 weeks 1 - 5 months 6 - 11 months 1 - 5 years 6 - 10 years 11 - 17 years PTT Mean: 35.4 (27.6-45.6) Mean: 33.5 (24.8-40.7) Mean: 32.4 (25.1-40.7) Mean: 31.6 (24.0-39.2) Mean: 31.6 (26.9-38.7) Mean: 31.0 (24.6-38.4) Pediatric Reference ranges were obtained from a study by leila Pino alSharyn prepared from 1437 samples obtained at 7 different centers using the same coagulation reagent and instrumentation as [facility]. Currently there are no coagulation studies available worldwide for children to 14 days, and no normal ranges. Heparin therapeutic range (represented by Anti-Factor Xa activity of 0.2 - 0.4 U/mL) corresponds to PTT of 56.6 - 109.0 sec. INR Coag (PPP) [Relative time] 0.93 {INR} Invalid Interpretation Code [facility] Auto Coag Comment on above: Interpretive Data: I NR results are specifically intended to assess patients stabilized on long-term Anticoagulation therapy suggested INR s Less Intensive Anticoagulation 2.0 3.0 Conventional Range 3.0 4.5 PT Coag (PPP) [Time] 10.4 s Normal 9.4 - 1 2.5 second(s) [facility] Auto Coag Comment on above: Interpretive Data: [...] the same coagulation reagent and instrumentation as [facility]. Currently there are no coagulation studies available worldwide for children to 14 days, and no normal ranges. Capillary Glucose POCon 01-29 Glucose [Mass/Vol] 419 mg/dL High 55-99 [facility] Comment on above: Result Comment: [place] vanegas RN/ Performed By: #### 2 [id number] #### [facility] [address] [place] [address] Glucose [Mass/Vol] 426 mg/dL High 55-99 [facility] Comment on above: Performed By: #### 2 [id number] #### [facility] [address] [place] [address] Glucose [Mass/Vol] 436 mg/dL High 55-99 [facility] Comment on above: Result Comment: Sheryl minda Meter Performed By: #### 2 [id number] #### [facility] [address] [place] [address] Consent for Treatmenton 01-29 Consent for Treatment [id number]#1 .00TIFF Normal [facility] ED Clinical Summaryon 2023 ED Clinical Summary [address] [address] ED Clinical Summary Person Information Name: SHAHANA GRACE [facility] Age: 74 Years : 1950 Sex: Female Language: Palauan PCP: ALBERTINA ARNDT DO Marital Status: Visit Id: Visit Reason: Polydipsia; Nausea; Hyperglycemia; hyperglycemia Speciality: Acuity: 3 Enc Type: Inpatient Med Service: Emergency Arrival: 02/19/2024 13:27:15 Discharge: LOS: 000 06:38 Checkin: 02/19/2024 13:27:15 Checkout: 02/19/2024 20:05:37 Dispo Type: Admitted as IP to this [facility] EVENTS: Event Name Event Status Request [...] 02/19/2024 19:56:25 02/19/2024 19:56:25 02/19/2024 19:56:26 ADDRESS: [address] [place] [id number] PHYS DOC NOTES: MEDICAL INFORMATION: Prescriptions Given: [...] Tablets By (more content not included)... Normal [facility] ED Patient Education Noteon 02-19-2024 ED Patient Education Note Normal [facility] ED Patient Summaryon 024 ED Patient Summary [place] [id number] Patient Discharge Instructions Person Information Name: SHAHANA GRACE Age: 74 Years Arrival Date: 02/19/2024 13:27:15 Discharge Diagnosis: 1:GIOVANNY (acute kidney injury); 2:Nausea; 3:Abdominal pain; 4:Hyperglycemia; 5:UTI (urinary tract infection); 6:Hypertensive crisis; 7:Kidney stone on right side; 8:Hydronephrosis, right Primary Care Physician: ALBERTINA ARNDT DO Provider Information Primary Provider: Rose Alvarado M.D. Advanced Manager Mortgage:Luis Corona PA-C The exam and treatment you received in the Emergency Department were for an urgent problem and are not intended as complete care. It is important that you follow up with a doctor, nurse practitioner, or physician?s first assistant for ongoing care. If your symptoms [...] opioids can be used to help relieve dftponjf-yc-lqowpf pain and are often prescribed following a [...] be struggling with addiction, tell your health lawn care professional and ask for guidance or call [facility]?S National Helpline at 9-707-007-HUSJ. v S (more content not included)... Normal [facility] EMS Documentationon 02-19-20 24 EMS Documentation Please click on link to see report [id number] CiX5+prnDQolQUJDcGRmI XDkWbU9KTcmCPGoGO0qnq 9IHKlSP7CrGZBcFIG4Wk2 ITZggBUn7ODQqIT5NZ6oo UXKgEMHjYq7LfN3qSXLbq wWsWTPBZ86gUPjmWzQlXH aiTDSjONn6UcEUFe5vGHZ gICAgICAgICAgICAgICAg ICAgICAgICAgICAgICAgI CAgICAgICAgICAgICAgIC AgICAgICAgICAgICAgICA gICAgICAgICAgDQplbmRv DylOUl7SmIEwRp3EMlWtM jUNCjAwMDAwMDAwMzIgMD PcAZTubm5SKIKlNPYlKYR 1MSAwMDAwMCBuDQowMDAw GFHpJUi3XALlDBRpLG0RU kGhMFMyLQL2AHCmRRBjAV Umlb4YGPRcKRTnITs8ZQI wMDAwMCBuDQowMDAwMDAy JlJqDCWaOLHuZT9DMsUdR DAwMDIyOTUgMDAwMDAgbg 6WXUWcUDRsRgO7JMKcEZC wMCBuDQowMDAwMDAyNDI0 VAMaFLHgRV5BCnUdEMWtY QT8TDCyOPRtOGJuej2SIH AwMDAwMjgyOSAwMDAwMCB wUYwoPJKeJMJmMWm4NVKp WUCfWO5NBhJhDLXyPLG2S xBoWISaBJCmed3TKFHpYL AwMzYyMCAwMDAwMCBuDQo wMDAwMDAzODYxIDAwMDAw MZ6LIyZnXYQvXPMbGCHvD HNvPEYlez9MZWWjFGGfBL R5XgUoDTQsKSOhVBniMEK kMJE9DmQ5YGRpFFVvKV3B VcTiLUOrAYR7RYWgXDJhX GSdac8ATKTvYIJqBZB1SU AwMDAwMCBuDQowMDAwMDA 3GJR2LKXvIHGnXE3LAjWn YTBwTTF6YHMgIQUfRFXbd x2KDPExPUZkJBHwYtRuWZ AwMCBuDQowMDAwMDUwMjQ 0KFJwWJRyTZ2ZZkDzEJVf KMuyXTKsNPCpGTVfhg8Gb SVypQizuh1YQMvRN1gJQT b4VYHARVUYNOLXUdIVMdx fMVD5XQKiPDEAJJNnGCST MTY+Zgk2CZI4SOawVsW0U 7M7ISVSCMM5Jey4ZFVAMy DhVlO5TC9jFi4GyaI4ZCX 7QMheYiyrMh0jkSNmAxEj OHGQJ9WzjpHpCFOBZ2Dse VYkNMObL3FARKR1Ng76Kj yntMaTMED6MUCXGBxgWN3 TAqsZVqOdYMmyQq11U2IW r1O0EgIwM8BDoVtMdtXLN JcsV3hVrMW8m5ucxItLgU NGbXlkOGdJcndPalFSQUl aSQALjB87mzuAN4VeLEp6 Q5FLKy5CDUefPaWfbZ2Um VcgCTV7yM4bPKACZZsDPn qtXF7YUDLKMTu3SDo+Astrid gICAgICAgICAgICAgICAg ICAgICAgICAgICAgICAgI CAgICAgICAgICAgICAgIC AgICAgICAgICAgICAgICA gICAgICAgICAgICAgICAg ICAgICAgICAgICAgICAgI CAgICAgICAgICAgICAgIC AgICAgICAgICAgICAgICA gICAgICAgICAgICAgICAg ICAgICAgICAgICAgICAgI CAgICAgICAgICAgICAgIC AgICAgICAgICAgICAgICA gICAgICAgICAgICAgICAg ICAgICAgICAgICAgICAgI CAgICAgICAgICAgICAgIC AgICAgICAgICAgICAgICA gICAgICAgICAgICAgICAg ICAgICAgICAgICAgICAgI CAgICAgICAgICAgICAgIC AgICAgICAgICAgICAgICA gICAgICAgICAgICAgICAg ICAgICAgICAgICAgICAgI CAgICAgICAgICAgICAgIC AgICAgICAgICAgICAgICA gICAgICAgICAgICAgICAg ICAgICAgICAgICAgICAgI CAgICAgICAgICAgICAgIA 2Di1OfhnV2ucAlBTpkAUf gCQWWGb9MSOdyDgIfOV8p ja8ACWpPU80jcYQpVMLlP FMkRTKsSyfmA4ImjwAwlU tgrrJfAiOiVXEYCl7BnWS AWRpcF2N6tDquTRIlGGlz NDZDJt2NFXqiVE7nSYPhC SHoHc0xCMdbDUJmAXYaHR ebLDSIQb2EwPVaHQ0XBYX faH7pQi5+DQplbmRvYmoN Ln5QQpTnQJTkYpfVIip6M u6UjAf7HDYeC3MqALGmEO Fte8BsHz1GRZ2tpUckFBZ cTs1NIATaECu+Ub8In4Pt NKOjUCj7cRHaMUHyNWBgO mYrKQKmGTIxmZGDKNW5KA OsDHwxkTWXdD2UvPTIDXg AlOdlYHyWDaTFgFgaLKIL fcaPhYWyMRLs2aD2ELWyZ MEoRVS0nFKuOD1A8ykFoc 5SJrVn22I1A5eTsteC8Gr ATMw9Z2YtCoeCoZPVyPHB NjMlML4iacDqO4UoHfmBE R9iWNeOTxLtHWE8jkVxmZ 1QSV4fc9IuQKbWJwK5WYU tn2FbKJb2JLfrZ02daRYr lUSwWrGxGREqAn0IU04oX KxbZo54JKjpOQMbRiMqQU l6Ci3CB3WaxrMdjQOsIWM uTCBWD2Vus241dfFoucZ0 BHexCK6kypYjjKW5BZgvT WFiYzYgMjUgMCBSCj4+Cj 4+Cf7SrTSqUB2GIJohHe3 +WGwkqqReEldVUu5XTjTj FGHuNkcAQoz2Ln2BMw15A MvgGHYrNhPxYQq3Ri2SH3 ZpbHRlciAvRmxhdGVEZWN fNZDXW5fbfne8fIM6Qegk WnOxg4ChY7EnWWq4Jp7IS 6KhAXI5GDh7Bf7WYPKfMp V9BiOnVWQTCt6JGk7XA7S 8WsK9uLGoP7Uwhn2NB8L0 yWIbA4tPPxgoI3SVLv6EN cQ4byVbqJ9WqAkdtbJbCn TlMjRQMFUwtTRSMLcwUih C7qNVP3gy4JHMf3AxNnMC CWSCMPxg0LdIdRC3i3bF7 jWlHqgFmTYuitkFf3gPaL 6ZF2wP3U7WHZ0ba8CiZWR wPIiobyZwJlqYVt8HKjNw BLNyKsuPQuf8Fa0VWASdI t3ciULiAo9DCPPvIz6UBa CcAj4OKcQlRw7BMwPdDy5 FYNJ6Dh2NAFE1vuNvMu8d YSAxCj4+DQplbmRvYmoNC c7DNmfpYTCrKvtABxt7Lp 7TSKFyXt7yhCRjZd4yUSX xCj4+VLqnmbRbBooNAa2Z HddhXSDpHrwIGsj1Mr8NX SBfHt0pwXYyIg7MJHDvUk 9NLjTrTg1TYvPtJo7CUaI wSz9CBAC6Hg3UULR2hbLk Jm2lINZdSo6+DQplbmRvY ycQEy0TVfubZZTcXjbLDu c5Vf4XWTSnQl9urCHrM3V LXJ9CJ2GauCPyQQDJOQeK Ma0Vw2oiRLBXL1Ojp5Qlv jYwodNZt626zfXeUkNzWI VHQExlWD2dm7JinequC0m gKB30pXX0RVaIV4A1YaJ3 qSFcS1C2aQXlNu5Yz0Vih RIfDKKxDbOmNIHNWk3QmE VyXK0Bc263Qm8+DQplbmR jLxmEQi5SRpHkTLSaYfpT Oaf7Bt1HJXRgCf2dwRTmO 7WKGE6JM8UyzKTnYGTNXJ aHIg2Rf7ouSPKBB0WCNST 0j1UdbSnkTw5hBKxFJ91a NZUmaT4vBBgEDBYcwWx0f WcLD4HyS5xktNL4IAoSGX 3sMBeIM6W0iSNeFM2yexG gMAo+WwzeU8jZWY1FMOJS TYVrE0fpYU18wST9Mm1ZA iRoUy4Ul067HEWqC8JdgM XuaxKhGLXoDYFLE7J7JdM 4vERtF5BVSLSncuFXfYHm CqwbROwvQPSxJu3igSifX eHtMSC5HtV6VUYzPLf4Ag ZdCj4+DQplbmRvYmoNCg0 ILjJjSLAdAikDXtl2Ut9J u5KvgxExHFHrSfQxQQOxL t5WQUDXZMlseEYgFIktFd b1Rxv2Ru6YRFTmEQ45BEX fJV2fMLR1TvpzFxwjN7Dg EyFYX1HhxjGDIx35TVpbQ NnaRqq6DLTcHB87PGJyKR D5QlJkOzIgDiX9WPF2MDH eWxWyREkyPKAkBb0It083 NbueWQCqUAEiDHUPAw7An 262FpBsWOZwT0VAHS4MB6 LndRGtDYQHSNaNCn1Us7y uTUWLK9u0FDwbW3VkS4ac KJLVM4Q6FP3SEPc5BvS9V Oh9Kl1QaHOzJC1Jg470TD EzG9WqeANibwj+Wb9ZBG1 hj3GbHZlJKuXkHPLrj4Gc CQa7YGczJqvahVViWI6Dc DQ3KLMqK89vEIzmAGHjL8 RdUVH9Lpc+Io1Gw8EdJTB kNQd3pA6Tb75WFKHD8/6K SniSOJBh1yCy2gWOAQnDv I4C3LX2CGwvtCJ/XzNDE6 rVEXsf881VaHQmi8M3BYC 3P6oGA/TGao/TePMKocOr bLUNkV7CR3HwXf3SNGW91 xRwqG0/smCWTY0uvlg+hs 1Bjx0+ieTNa/TGXmHzdWo iNzfnfnBAGyAVVQUa+5j0 0rrXdkBIyLatdeybMG+j5 4A7tN5UNZ97ZiVmqPrx2T c9pwUN09xlsIAJViH4R29 eJ6qb13tLKx/qNJVpRbRn eqcdWMonTBzJjVor3ZLu/ 5f3+TbROLrh6AVsQbhqaK ji+BQZz7AUCEroGOiVuko QoSXBFCyKtB5O7n70hlNK LH++1RG1ziwvrxpdMXGbu lmisXi/uEx6smQ8e1g1aZ bQBpCeDCW0peRpeE2TCU5 zf0RsMCoZGmRqASEak4Jx BMh5SVurYkAmHCGuteYsC 6dMMwIIZPrXj1FmoCAxJp W8RNOXQLfdUXZpW4UrTJR udEZvbnRzIFszNCAwIFJd Oo2HdaToELltZuYaAXXen dYnvMbvREtiY4HvyXcsRV ImPOpqAJUPD2EvRN7jQ37 sRJLoIsZpYZKOJ0E1zJWk A8GykiSNLk0OAxApSU1hp g2NIQbcYVZmAF7jmi8ZWF zDZ4Hls9WEp712TS7WKOH UAX3wS361rvzvef6ay9BC HJXJG1KOXYF7b5SpnSaiT o8rQDmRU87fYHRglP7vDR lMMSBapAk4nOkJW1RoP2m tuTK7GC (more content not included)... Normal [facility] EMS Documentation Please click on link to see report Normal [facility] Comment on above: Result Comment: Miss ing Attachment - total size limit for all attachments exceeded [email or web address] Can be viewed in source system Hep Fun Panelon 02-19-2024 Albumin [Mass/Vol] 4.1 g/dL Normal 3.3-5.0 [facility] Comment on above: Performed By: #### 2 [id number] #### [facility] [address] [place] [address] Albumin/Globulin (S) [Mass conc ratio] 1.2 Normal 1.1-2.2 [facility] Comment on above: Performed By: #### 2 [id number] #### [facility] [address] [place] [address] ALP [Catalytic activity/Vol] 82 Int._Unit/L Normal 21-98 [facility] Comment on above: Performed By: #### 2 [id number] #### [facility] [address] [place] [address] ALT No additional P-5'-P [Catalytic activity/Vol] 11 Int._Unit/L Normal 6-46 [facility] Comment on above: Performed By: #### 2 [id number] #### [facility] [address] [place] [address] AST [Catalytic activity/Vol] 11 Int._Unit/L Normal 5-43 [facility] Comment on above: Performed By: #### 2 [id number] #### [facility] [address] [place] [address] Bilirubin [Mass/Vol] 1.1 mg/dL Normal 0.0-1.1 [facility] Comment on above: Performed By: #### 2 [id number] #### [facility] [address] [place] [address] Bilirubin.direct [Mass/Vol] 0.2 mg/dL Normal 0.0-0.4 [facility] Comment on above: Performed By: #### 2 [id number] #### [facility] [address] [place] [address] Bilirubin.indirect [Mass or moles/Vol] 0.9 mg/dL Normal 0.1-0.9 [facility] Comment on above: Performed By: #### 2 [id number] #### [facility] [address] [place] [address] Globulin (S) [Mass/Vol] 3.3 g/dL Normal 1.4-4.0 [facility] Comment on above: Performed By: #### 2 [id number] #### [facility] [address] [place] [address] Protein [Mass/Vol] 7.4 g/dL Normal 6.0-7.8 [facility] Comment on above: Performed By: #### 2 [id number] #### [facility] [address] [place] [address] Laboratory - Microbiology an d Antimicrobial susceptibilityOrdered By: Awilda Pritchard on 02-19-2024 Bacteria identified Cx Nom (U) <10,000 cfu/ml Mixed skin contaminants [facility] Lactic Acidon 02-19-2024 Lactic Acid Lvl 1.5 mmol/L Normal 0.5-2.2 [facility] Comment on above: Performed By: #### 2 [id number] #### [facility] [address] [place] [address] Lipase Levelon 02-19-2024 Lipase [Catalytic activity/Vol] 54 U/L Normal 13-58 [facility] Comment on above: Performed By: #### 2 [id number] #### [facility] [address] [place] [address] Magnesiumon 02-19-2024 Magnesium [Mass/Vol] 2.2 mg/dL Normal 1.3-2.4 [facility] Comment on above: Performed By: #### 2 [id number] #### [facility] [address] [place] [address] Message from Medicareon 01-29 Message from Medicare [id number]# 1.00TIFF Normal [facility] Message from Medicare [id number]# 1.00TIFF Normal [facility] Monitor Recordon 02-19-2024 Monitor Record [id number]# 1.00TIFF Normal [facility] No Panel InformationOrdered By: [facility] MICROBIOLOGY on 02-19-2024 Blood Culture Charcoal No growth at 4 days. Final to follow at 7 days. [facility] Blood Culture Charcoal No growth at 4 days. Final to follow at 7 days. [facility] PT & PTTon 02-19-2024 aPTT Coag (PPP) [Time] 23.4 second(s) Low 25.1-36.5 [facility] Comment on above: Result Comment: Para [...] the same coagulation reagent and instrumentation as [facility]. Currently there are no coagulation studies available worldwide for children to 14 days, and no normal ranges. Heparin therapeutic range (represented by Anti-Factor Xa activity of 0.2 - 0.4 U/mL) corresponds to PTT of 56.6 - 109.0 sec. Performed By: #### 1 [id number] #### [facility] [address] [place] [address] INR Coag (PPP) [Relative time] 0.93 {INR} Invalid Interpretation Code [facility] Comment on above: Result Comment: INR results are specifically intended to assess patients stabilized on long-term Anticoagulation therapy suggested INR?s ?Less Intensive Anticoagulation? 2.0 ? 3.0 Conventional Range 3.0 ? 4.5 Performed By: #### 1 [id number] #### [facility] [address] [place] [address] PT Coag (PPP) [Time] 10.4 second(s) Normal 9.4-12.5 [facility] Comment on above: Result Comment: 15 [...] the same coagulation reagent and instrumentation as [facility]. Currently there are no coagulation studies available worldwide for children to 14 days, and no normal ranges. Performed By: #### 1 [id number] #### [facility] [address] [place] [address] Pre-Arrival Noteon Pre-Arrival Note Normal [facility] Progress Note-Nurseon 2023 Progress Note-Nurse spoke with PASCUAL Smith about pt's blood sugar and BP. Per Luis, wait 15-20 mins and check BP again after stopping fluids Normal [facility] RAD - Preliminary Cat Scan R eporton 02-19-2024 RAD - Preliminary Cat Scan Report [id number]#1 .00TIFF Normal [facility] Troponin 0 Hr.on 02-19-2024 Troponin HS 45.80 pg/mL Abnormal 10.10-27.10 [place] Comment on above: Result Comment: Crit ical Result I_TnIHS:45.8 Called to and read back by: MADEILNE FERNANDEZ at: 02/19/2024 14:58:27 by:AG Critical Result Verified by Repeat Analysis The 95% CI (Confidence Interval) PPV (Positive Predictive Value) for myocardial infarction in females is 38 pg/mL, in males 51 pg/mL. The results should be used in conjunction with clinical conditions of myocardial infarction. ([employer] High Sensitivity Troponin I Instructions For Use, [employer], March 2018) Performed By: #### 1 [id number] #### [facility] [address] [place] [address] Troponin 1 Hr.on 02-19-2024 Troponin HS 42.60 pg/mL Abnormal 10.10-27.10 [place] Comment on above: Order Comment: 1446 Result [...] conjunction with clinical conditions of myocardial infarction. ([employer] High Sensitivity Troponin I Instructions For Use, [employer], March 2018) Performed By: #### 1 [id number] #### [facility] [address] [place] [address] UA with Cult Rflxon 02-19-20 24 Bacteria Auto Ql (U) 1+ /HPF Abnormal Trace [facility] Comment on above: Performed By: #### 4 [id number] #### [facility] [address] [place] [address] Bilirubin Ql (U) Negative Normal Negative [facility] Comment on above: Performed By: #### 4 [id number] #### [facility] [address] [place] [address] Clarity (U) Turbid Abnormal Clear [facility] Comment on above: Performed By: #### 4 [id number] #### [facility] [address] [place] [address] Color (U) Light-Yellow Normal Yellow [facility] Comment on above: Result Comment: Micr oscopic readings are only performed on those samples that meet specific criteria set forth by [facility]. Performed By: #### 4 [id number] #### [facility] [address] [place] [address] Epithelial cells.squamous Auto (Urine sed) [#/Area] 5-8 Invalid Interpretation Code [facility] Comment on above: Performed By: #### 4 [id number] #### [facility] [address] [place] [address] Glucose Ql (U) 4+ mg/dL Abnormal Negative [facility] Comment on above: Performed By: #### 4 [id number] #### [facility] [address] [place] [address] Hemoglobin Auto test strip (U) [Mass/Vol] 2+ mg/dL Abnormal Negative [place] Comment on above: Performed By: #### 4 [id number] #### [facility] [address] [place] [address] Ketones Auto test strip Ql (U) Trace Abnormal Negative [facility] Comment on above: Performed By: #### 4 [id number] #### [facility] [address] [place] [address] Leukocyte esterase Auto test strip Ql (U) 500 Sergio/uL Abnormal Negative [facility] Comment on above: Performed By: #### 4 [id number] #### [facility] [address] [place] [address] Mucus Auto Ql (U) Negative Normal Negative [facility] Comment on above: Performed By: #### 4 [id number] #### [facility] [address] [place] [address] Nitrite Auto test strip Ql (U) Negative Normal Negative [facility] Comment on above: Performed By: #### 4 [id number] #### [facility] [address] [place] [address] pH (U) 5.0 [pH] Invalid Interpretation Code 5.0-9.0 [facility] Comment on above: Performed By: #### 4 [id number] #### [facility] [address] [place] [address] Protein Ql (U) 1+ mg/dL Abnormal Negative [facility] Comment on above: Performed By: #### 4 [id number] #### [facility] [address] [place] [address] RBC Ql (U) 31-75 Abnormal 0-3 [facility] Comment on above: Performed By: #### 4 [id number] #### [facility] [address] [place] [address] Specific gravity (U) [Rel density] 1.030 Invalid Interpretation Code 1.005-1.030 [facility] Comment on above: Performed By: #### 4 [id number] #### [facility] [address] [place] [address] Urobilinogen (U) [Mass/Vol] Negative Normal Negative [facility] Comment on above: Performed By: #### 4 [id number] #### [facility] [address] [place] [address] WBC Auto (Urine sed) [#/Area] >75 Abnormal 0-5 [facility] Comment on above: Performed By: #### 4 [id number] #### [facility] [address] [place] [address] Yeast.budding Computer assisted Ql (U) 1+ CD:[id number] Abnormal [facility] Comment on above: Performed By: #### 4 [id number] #### [facility] [address] [place] [address] Type of Urine collection method Clean Catch Normal [facility] Comment on above: Performed By: #### 4 [id number] #### [facility] [address] [place] [address] URINALYSISOrdered By: SYSTEM SYSTEM on 02-19-2024 Bacteria Auto Ql (U) 1+ /HPF Invalid Interpretation Code Trace/HPF [facility] UA Auto SS Bilirubin Ql (U) Negative Normal Negativemg/dL [facility] UA Auto SS Clarity (U) Turbid *ABN* (02/19/24 4:54 PM) Invalid Interpretation Code Clear [facility] UA Auto SS Color (U) Light-Yellow 1 (02/19/24 4:54 PM) Normal Yellow [facility] UA Auto SS Comment on above: Interpretive Data: M icroscopic readings are only performed on those samples that meet specific criteria set forth by [facility]. Epithelial cells.squamous Auto (Urine sed) [...] Interpretation Code NegativeLeu/uL [facility] UA Auto SS Mucus Auto Ql (U) Negative Normal Negativegr aded/L PF [facility] UA Auto SS Nitrite Auto test strip Ql (U) Negative Normal Negativemg/dL [facility] UA Auto SS pH (U) 5.0 [...] 1.005 - 1.030 [facility] UA Auto SS Urobilinogen (U) [Mass/Vol] Negative Normal Negativemg/dL [facility] UA Auto SS WBC Auto (Urine sed) [#/Area] >75 graded/HPF Invalid Interpretation Code 0-5graded/HPF [facility] UA Auto SS Yeast.budding Computer assisted Ql (U) 1+ graded/HPF Invalid Interpretation Code [facility] UA Auto SS URINALYSISOrdered By: Luis Corona on 02-19-2024 UA Spec Desc Clean Catch (02/19/24 4:54 PM) Normal [facility] UA Auto SS eGFRon 02-19-2024 eGFR 24 mL/min/1.73 m2 Low >=59 [facility] Comment on above: Order Comment: Order added by Discern Expert. Performed By: #### 1 [id number] #### [facility] [address] [place] [address] Prescriptions/Work Noteson 0 09-07-2023 Prescriptions/Work Notes [id number]# 1.00TIFF Normal [facility] IntraOperative Documentson 1 10-26-2022 IntraOperative Documents [id number]# 1.00TIFF Normal [facility] IntraOperative Documents [id number]# 1.00TIFF Normal [facility] Comment on above: Other Comment: error Calculus Analysison 08-15-20 23 Color (Stone) [place] Invalid Interpretation Code [facility] Comment on above: Performed By: #### 1 [id number] ####[facility] [address] [place] [address] Composition Comment Invalid Interpretation Code [facility] Comment on above: Result Comment: Perc entage (Represents the % composition) Performed By: #### 1 [id number] ####[facility] [address] [place] [address] Disclaimer: Comment Invalid Interpretation Code [facility] Comment on above: Result Comment: This test was developed and its performance characteristicsdetermined by [employer]. It has not been cleared or approvedby the Food and Drug Administration.Performed at: [facility] [address] [place] [address] [id number] PhD Ivan Ureña Performed By: #### 1 [id number] ####[facility] [address] [place] [address] Laboratory comment Hu (Report) Comment Invalid Interpretation Code [facility] Comment on above: Result Comment: Phys ulysses questions regarding Calculi Analysis [facility] at: [phone]. Performed By: #### 1 [id number] ####[facility] [address] [place] [address] Please Note: Comment Invalid Interpretation Code [facility] Comment on above: Result Comment: Calc bernard report will follow via computer, mail or courierdelivery. Performed By: #### 1 [id number] ####[place] [address] [place] [address] Size (Stone) [Entitic vol] 3x4 Invalid Interpretation Code [facility] Comment on above: Result Comment: Mult iple pieces received. Dimensions of the largest piecereported. Performed By: #### 1 [id number] ####[address] [address] Specimen source subject Nom Comment Invalid Interpretation Code [facility] Comment on above: Result Comment: Not provided Performed By: #### 1 [id number] ####[facility] [address] [place] [address] Stone Photo Comment Invalid Interpretation Code [facility] Comment on above: Result Comment: Phot ograph will follow under a separate cover Performed By: #### 1 [id number] ####[facility] [address] [place] [address] Urate (Stone) [Mass fraction] 100 % Invalid Interpretation Code [facility] Comment on above: Performed By: #### 1 [id number] ####[facility] [address] [place] [address] Weight (Stone) 90 mg Invalid Interpretation Code [facility] Comment on above: Performed By: #### 1 [id number] ####[facility] [address] [place] [address] Prescriptions/Work Noteson 1 10-13-2022 Prescriptions/Work Notes [id number]# 1.00TIFF Normal [facility] Consent for Procedure/Surger yon 08-11-2023 Consent for Procedure/Surgery [id number]# 1.00TIFF Normal [facility] Progress Note-Physicianon Progress Note-Physician Normal [facility] Comment on above: Result Comment: Elec tronically Signed By: Ravinder Bojorquez Jr, DO\.br\Date and Time Signed: 08/08/23 10:09 EST Progress Note-Physicianon Progress Note-Physician Normal [facility] Comment on above: Result Comment: Elec tronically Signed By: Ravinder Bojorquez Jr, DO\.br\Date and Time Signed: 08/07/23 08:35 EST Consent for Anesthesiaon Consent for Anesthesia [id number]#1 .00TIFF [facility] Discharge Instructionson Discharge Instructions [id number]#1 .00TIFF [facility] IntraOperative Documentson 1 10-07-2022 IntraOperative Documents [id number]#1 .00TIFF [facility] Main OR Intraoperative Recor don 08-06-2023 Main OR Intraoperative Record [facility] Preoperative Documentson Preoperative Documents [id number]#1 .00TIFF [facility] CHEMISTRYOrdered By: Lab ROP User on 08-05-2023 POC Username FATIMAH HA Invalid Interpretation Code [facility] POC Subsection Sodium [Moles/Vol] 991118214778 mmol/L Invalid Interpretation Code [facility] POC Subsection Sodium [Moles/Vol] 346632060 mmol/L Invalid Interpretation Code [facility] POC Subsection Capillary Glucose POCOrdered By: Lab ROPUser on 08-05-2023 Glucose [Mass/Vol] 155 mg/dL High 55-99 [facility] P OC Subsection Comment on above: Result Comment: Sheryl minda Meter No Coverage Given Result Comment: Sheryl minda MeterNo Coverage Given Performed By: #### 2 [id number] ####[facility] [place] [address] Consent for Treatmenton Consent for Treatment [id number]#1 .00TIFF Normal [facility] Discharge Instructionson Discharge Instructions Normal [facility] Comment on above: Result Comment: Elec tronically Signed By: Jerome MARCUM, Fatimah N\.br\Date and Time Signed: 08/05/23 15:42 EST H&P Updateon 08-05-2023 H&P Update [id number]#1 .00TIFF Normal [facility] Inpatient Patient Summaryon 08-05-2023 Inpatient Patient Summary Normal [facility] Main OR PACU I Recordon Main OR PACU I Record Normal [facility] Main OR Preoperative Recordo n 08-05-2023 Main OR Preoperative Record Normal [facility] Monitor Recordon 08-05-2023 Monitor Record [id number]# 1.00TIFF Normal [facility] Monitor Record [id number]# 1.00TIFF Normal [facility] Operative Reporton Operative Report Normal [facility] Comment on above: Result Comment: Elec tronically Signed By: GEORGIE CHISHOLM, Orestes Muñiz\.br\Date and Time Signed: 08/05/23 15:18 EST Outpatient Surgery Discharge Instructionon 08-05-2023 Outpatient Surgery Discharge Instruction Normal [facility] Patient Education - Texton 1 10-06-2022 Patient Education - Text Normal [facility] URINALYSISOrdered By: Candis Soto on 08-05-2023 Bacteria LM Ql (Urine sed) 1+ /HPF Invalid Interpretation Code Trace/HPF [facility] UA Auto SS Bilirubin Ql (U) Negative (08/05/23 12:21 PM) Normal Negative [facility] UA Auto SS Clarity (U) Cloudy *ABN* (08/05/23 12:21 PM) Invalid Interpretation Code Clear [facility] UA Auto SS Color (U) Yellow (08/05/23 12:21 PM) Normal Yellow [facility] UA Auto SS Epithelial cells.squamous LM.HPF (Urine sed) [#/Area] 3-4 /HPF Normal 0-2/HPF [facility] UA Auto SS Glucose Test strip (U) [Mass/Vol] Negative (08/05/23 12:21 PM) Normal Negative [facility] UA Auto SS Hemoglobin Ql (U) 2+ *ABN* (08/05/23 12:21 PM) Invalid Interpretation Code Negative [facility] UA Auto SS Ketones (U) [Mass/Vol] Negative (08/05/23 12:21 PM) Normal Negative [facility] UA Auto SS Bucklin.plasma/Lithi um.RBC (Bld) [Mass ratio] 21-30 /HPF Invalid Interpretation Code 0-3/HPF [facility] UA Auto SS Nitrite Ql (U) Negative (08/05/23 12:21 PM) Normal Negative [facility] UA Auto SS pH (U) 6.0 (08/05/23 12:21 PM) Normal 5.0 - 9.0 [facility] UA Auto SS Protein (U) [Mass/Vol] 2+ *ABN* (08/05/23 12:21 PM) Invalid Interpretation Code Negative [facility] UA Auto SS Specific gravity (U) [Rel density] 1.015 (08/05/23 12:21 PM) Normal 1.005 - 1.030 [facility] UA Auto SS UA Spec Desc Clean Catch (08/05/23 12:21 PM) Normal [facility] UA Auto SS Urobilinogen Qn (U) 0.3524987 {Isis'U}/dL Normal 0.0 - 1.0 EU/dL [facility] UA Auto SS WBC Auto Ql (U) 3+ *ABN* (08/05/23 12:21 PM) Invalid Interpretation Code Negative [facility] UA Auto SS WBC LM.HPF (Urine sed) [#/Area] /[HPF] Invalid Interpretation Code 0-5/HPF [facility] UA Auto SS Urinalysison 08-05-2023 Type of Urine collection method Clean Catch Normal [facility] Comment on above: Performed By: #### 1 [id number] ####[facility] [address] [place] [address] Bacteria LM Ql (Urine sed) 1+ /HPF Abnormal Trace [facility] Comment on above: Performed By: #### 1 [id number] ####[facility] [address] [place] [address] Bilirubin Ql (U) Negative Normal Negative [facility] Comment on above: Performed By: #### 1 [id number] ####[facility] [address] [place] [address] Clarity (U) CLOUDY Abnormal Clear [facility] Comment on above: Performed By: #### 1 [id number] ####[facility] [address] [place] [address] Color (U) YELLOW Normal Yellow [facility] Comment on above: Performed By: #### 1 [id number] ####[address] [address] Epithelial cells.squamous LM.HPF (Urine sed) [#/Area] 3-4 Normal 0-2 [facility] Comment on above: Performed By: #### 1 [id number] ####[facility] [address] [place] [address] Glucose Test strip (U) [Mass/Vol] Negative Normal Negative [facility] Comment on above: Performed By: #### 1 [id number] ####[facility] [address] [place] [address] Hemoglobin Ql (U) 2+ Abnormal Negative [facility] Comment on above: Performed By: #### 1 [id number] ####[facility] [address] [place] [address] Ketones (U) [Mass/Vol] Negative Normal Negative [facility] Comment on above: Performed By: #### 1 [id number] ####[facility] [address] [place] [address] Bucklin.plasma/Lithi um.RBC (Bld) [Mass ratio] 21-30 Abnormal 0-3 [facility] Comment on above: Performed By: #### 1 [id number] ####[facility] [address] [place] [address] Nitrite Ql (U) Negative Normal Negative [facility] Comment on above: Performed By: #### 1 [id number] ####[facility] [address] [place] [address] pH (U) 6.0 [pH] Normal 5.0-9.0 [facility] Comment on above: Performed By: #### 1 [id number] ####[facility] [address] [place] [address] Protein (U) [Mass/Vol] 2+ Abnormal Negative [facility] Comment on above: Performed By: #### 1 [id number] ####[address] [address] Specific gravity (U) [Rel density] 1.015 Normal 1.005-1.030 [facility] Comment on above: Performed By: #### 1 [id number] ####[address] [address] Urobilinogen Qn (U) 0.2 {Isis'U}/dL Normal 0.0-1.0 [facility] Comment on above: Performed By: #### 1 [id number] ####[facility] [address] [place] [address] WBC Auto Ql (U) 3+ Abnormal Negative [facility] Comment on above: Performed By: #### 1 9861233 ####[address] [address] WBC LM.HPF (Urine sed) [#/Area] /[HPF] Abnormal 0-5 [facility] Comment on above: Performed By: #### 1 [id number] ####[facility] [address] [place] [address] XR Abdomen 1 Viewon 08-05-20 23 XR Abdomen 1 View Normal [facility] XR Chest 2 Viewson 3 XR Chest 2 Views Normal [facility] Alanine Aminotransferaseon 1 10-05-2022 ALT [Catalytic activity/Vol] 15 U/L Normal 7-52 [facility] Comment on above: Performed By: #### A LT, AST, LIPID #### [facility] [address] Alanine aminotransferase [En zymatic activity/volume] in Serum or PlasmaOrdered By: Tal Florian on 08-04-2023 ALT [Catalytic activity/Vol] 15 U/L 7-52 [facility] Aspartate Amino Transferaseo n 08-04-2023 AST [Catalytic activity/Vol] 13 U/L Normal 13-39 [facility] Comment on above: Performed By: #### A LT, AST, LIPID #### [facility] [address] [place] [address] [facility] Aspartate aminotransferase [ Enzymatic activity/volume] in Serum or PlasmaOrdered By: Tal Florian on 08-04-2023 AST [Catalytic activity/Vol] 13 U/L 13-39 [facility] Cholesterol [Mass/volume] in Serum or PlasmaOrdered By: Tal Florian on 08-04-2023 Cholesterol [Mass/Vol] 209 mg/dL 140-200 [facility] Comment on above: Chol less than 200 m g/dl low riskChol 201-239 mg/dl borderline riskChol 240 mg/dl and greater high risk Cholesterol in LDL Calc [Mas s/Vol]Ordered By: Tal Florian on 08-04-2023 Cholesterol in LDL [Mass/Vol] 116 mg/dL 0-100 [facility] Comment on above: LDL ATP III CLASSIFI CATIONLDL less than 100 mg/dL OptimalLDL 100-129 mg/dL Near or above optimalLDL 130-159 mg/dL Borderline highLDL 160-189 mg/dL HighLDL greater than 189 mg/dL Very high Cholesterol in VLDL Calc [Ma ss/Vol]Ordered By: Tal Florian on 08-04-2023 Cholesterol in VLDL [Mass/Vol] 35 mg/dL [facility] Lipid Panelon 08-04-2023 Cholesterol [Mass/Vol] 209 mg/dL High 140-200 [facility] Comment on above: Result Comment: Chol less than 200 mg/dl low risk Chol 201-239 mg/dl borderline risk Chol 240 mg/dl and greater high risk Performed By: #### A LT, AST, LIPID #### [facility] [address] [place] [address] [place] Cholesterol in HDL [Mass/Vol] 58 mg/dL Normal 23-92 [facility] Comment on above: Result Comment: HDL CHOL ATP-III CLASSIFICATION Cardiovascular Risk HDL > or equal to 60 mg/dL LOW HDL < 40 mg/dL HIGH Performed By: #### A LT, AST, LIPID #### [facility] [address] Cholesterol.total/Ch olesterol in HDL [Mass ratio] 3.6 {ratio} Normal <5.0 [facility] Comment on above: Result Comment: PERF ORMED BY: [place] [address] PATHOLOGIST SEISMIC PLOTTER KEVIN SWARTZ M.D. Performed By: #### A LT, AST, LIPID #### [facility] [address] LDL Cholesterol,Calculat ed 116 mg/dL High 0-100 [facility] Comment on above: Result Comment: LDL ATP III CLASSIFICATION LDL less than 100 mg/dL Optimal LDL 100-129 mg/dL Near or above optimal LDL 130-159 mg/dL Borderline high LDL 160-189 mg/dL High LDL greater than 189 mg/dL Very high Performed By: #### A LT, AST, LIPID #### [facility] [address] Triglyceride w/Reflex 175 mg/dL High 0-149 [facility] Comment on above: Result Comment: TRIG ATP III CLASSIFICATION TRIG less than 150 mg/dL Normal TRIG 150-199 mg/dL Borderline high TRIG 200-500 mg/dL High TRIG greater than 500 mg/dL Very high Standard traceable to the Center for Disease Conrtrol and Prevention (CDC) test method. Performed By: #### A LT, AST, LIPID #### [facility] [address] VLDL CHOLESTEROL 35 mg/dL Normal [facility] Comment on above: Performed By: #### A LT, AST, LIPID #### [facility] [address] [place] [address] Serum or plasma high density lipoprotein (HDL) cholesterol measurementOrdered By: Tal Florian on 08-04-2023 Cholesterol in HDL [Mass/Vol] 58 mg/dL 23-92 [facility] Comment on above: HDL CHOL ATP-III CLA SSIFICATION Cardiovascular RiskHDL > or equal to 60 mg/dL LOWHDL < 40 mg/dL HIGH Serum or plasma total choles terol/high density lipoprotein (HDL) cholesterol mass ratOrdered By: Tal Florian on 08-04-2023 Cholesterol.total/Ch olesterol in HDL [Mass ratio] 3.6 {ratio} <5.0 [facility] Triglyceride [Mass/volume] i n Serum or PlasmaOrdered By: Tal Florian on 08-04-2023 Triglyceride [Mass/Vol] 175 mg/dL 0-149 [facility] Comment on above: TRIG ATP III CLASSIF ICATIONTRIG less than 150 mg/dL NormalTRIG 150-199 mg/dL Borderline highTRIG 200-500 mg/dL High TRIG greater than 500 mg/dL Very highStandard traceable to the Center for Disease Conrtrol and Prevention (CDC) test method. Consent for Treatmenton 07-01 Consent for Treatment [id number]#1 .00TIFF Normal [facility] XR Abdomen 1 Viewon 07-23-20 23 XR Abdomen 1 View Normal [facility] IntraOperative Documentson 09-15-2022 IntraOperative Documents [id number]# 1.00TIFF Normal [facility] Operative Reporton Operative Report [id number]#1 .00TIFF Normal [facility] Formson 07-11-2023 Forms [id number]#1 .00TIFF Normal [facility] ECG 12-Leadon 07-05-2023 ECG 12-Lead [id number]#1 .00TIFF Normal [facility] Auto Diffon 07-02-2023 Basophils/100 WBC (Bld) 1.0 % Normal 0.0-2.0 [facility] Comment on above: Order Comment: Order Added by Discern Expert. Performed By: #### 2 376004, 7319034, 06659628, 59390275, 2496504, 8530935, 2106901 ####[facility] [address] [place] [address] Basophils/Leukocytes Auto (Bld) [Pure # fraction] 0.1 E9/L Normal 0.0-0.2 [facility] Comment on above: Order Comment: Order Added by Discern Expert. Performed By: #### 2 940291, 7365488, 25527152, 27119659, 2043210, 5941886, 0332533 ####[facility] [address] [place] [address] Eosinophils/100 WBC (Bld) 2.6 % Normal 0.0-8.0 [facility] Comment on above: Order Comment: Order Added by Discern Expert. Performed By: #### 2 330109, 2726066, 63553768, 97445376, 9368128, 6468218, 1924285 ####[address] [address] Eosinophils/Leukocyt es Auto (Bld) [Pure # fraction] 0.2 E9/L Normal 0.0-0.5 [facility] Comment on above: Order Comment: Order Added by Discern Expert. Performed By: #### 2 506107, 5845448, 56020406, 82776462, 6440389, 1608168, 0125206 ####[address] [place] [address] Lymphocytes/100 WBC (Bld) 21.4 % Normal 14.0-50.0 [facility] Comment on above: Order Comment: Order Added by Discern Expert. Performed By: #### 2 733829, 7865632, 14442180, 51068988, 1113202, 1733276, 3924832 ####[address] [place] [address] Lymphocytes/Leukocyt es Auto (Bld) [Pure # fraction] 1.9 E9/L Normal 1.0-4.0 [facility] Comment on above: Order Comment: Order Added by Discern Expert. Performed By: #### 2 886831, 5768239, 37102089, 03104914, 4007690, 7263816, 1179287 ####[address] [place] [address] Monocytes/100 WBC (Bld) 7.7 % Normal 4.0-14.0 [facility] Comment on above: Order Comment: Order Added by Discern Expert. Performed By: #### 2 178519, 0916677, 77078064, 20786103, 3239048, 3487874, 6196740 ####[address] [place] [address] Monocytes/Leukocytes Auto (Bld) [Pure # fraction] 0.7 E9/L Normal 0.2-1.0 [facility] Comment on above: Order Comment: Order Added by Discern Expert. Performed By: #### 2 079890, 5141140, 51504282, 65197522, 0092508, 7045144, 6561509 ####[address] [place] [address] Neutrophils/100 WBC (Bld) 67.3 % Normal 36.0-75.0 [facility] Comment on above: Order Comment: Order Added by Discern Expert. Performed By: #### 2 165858, 2477929, 42324662, 72510412, 6534957, 7390891, 3247530 ####[address] [place] [address] Neutrophils/Leukocyt es Auto (Bld) [Pure # fraction] 6.0 E9/L Normal 2.0-7.5 [facility] Comment on above: Order Comment: Order Added by Discern Expert. Performed By: #### 2 703622, 2390333, 63682416, 87490275, 4334072, 6551542, 8835608 ####[address] [place] [address] BUNon 07-02-2023 Urea nitrogen [Mass/Vol] 20 mg/dL Normal 5-21 [facility] Comment on above: Performed By: #### 2 159988, 7798954, 76351481, 35230148, 3976036, 0267854, 0143650 ####[facility] [address] [place] [address] CBC w/ Auto Diffon 3 Erythrocyte distribution width (RBC) [Ratio] 14.2 % Normal 10.9-14.2 [facility] Comment on above: Performed By: #### 2 020523, 6994267, 45163978, 31694150, 5440183, 1951792, 9432951 ####[address] [place] [address] Hematocrit (Bld) [Volume fraction] 43.0 % Normal 34.0-46.0 [facility] Comment on above: Performed By: #### 2 418824, 1705473, 53605238, 49883621, 4747613, 1135821, 7970524 ####[address] [place] [address] Hemoglobin (Bld) [Mass/Vol] 14.5 g/dL Normal 12.0-16.0 [facility] Comment on above: Performed By: #### 2 288302, 7712253, 33660785, 81066510, 6426884, 0905726, 4328385 ####[address] [place] [address] MCH (RBC) [Entitic mass] 30.1 pg Normal 27.0-34.0 [facility] Comment on above: Performed By: #### 2 841541, 9634873, 35819812, 11976051, 7715584, 3324846, 3745534 ####[address] [place] [address] MCHC (RBC) [Mass/Vol] 33.6 g/dL Normal 31.4-36.0 [facility] Comment on above: Performed By: #### 2 780155, 7989169, 32333598, 20228580, 3180148, 3816109, 5615802 ####[facility] [address] [place] [address] MCV (RBC) [Entitic vol] 89.8 fL Normal 80.0-100.0 [facility] Comment on above: Performed By: #### 2 120336, 6974723, 04571305, 83904160, 1933081, 5992565, 5857249 ####[address] [place] [address] Platelet mean volume (Bld) [Entitic vol] 7.9 fL Normal 6.4-10.8 [facility] Comment on above: Performed By: #### 2 458751, 8048626, 40255293, 09912561, 2559380, 7421226, 3146189 ####[address] [address] Platelets (Bld) [#/Vol] 228.0 E9/L Normal 150.0-500.0 [facility] Comment on above: Performed By: #### 2 839047, 5601098, 49392684, 84019799, 1897194, 4317444, 5247314 ####[address] [address] RBC (Bld) [#/Vol] 4.8 E12/L Normal 4.3-5.9 [facility] Comment on above: Performed By: #### 2 654895, 7372443, 41609609, 11342591, 0290695, 1791323, 6448257 ####[address] [place] [address] WBC corrected for nucl RBC Auto (Bld) [#/Vol] 8.9 E9/L Normal 4.0-11.0 [facility] Comment on above: Performed By: #### 2 696811, 8245552, 46457598, 70437809, 0119548, 7950300, 8817768 ####[address] [address] Consent for Treatmenton Consent for Treatment [id number]#1 .00TIFF Normal [facility] Creatinineon 07-02-2023 Creatinine [Mass/Vol] 1.3 mg/dL Normal 0.5-1.3 [facility] Comment on above: Performed By: #### 2 263606, 8575711, 53615857, 46102965, 3102988, 5394575, 2789057 ####[facility] [address] [place] [address] Lyteson 07-02-2023 Anion gap [Moles/Vol] 16 mmol/L Normal 6-16 [facility] Comment on above: Performed By: #### 2 081495, 1212512, 40898031, 97190497, 8684823, 0746319, 3944066 ####[facility] [address] [place] [address] Chloride [Moles/Vol] 109 mmol/L Normal 101-111 [facility] Comment on above: Performed By: #### 2 561111, 1889082, 07153663, 60154724, 9874105, 9169744, 7115775 ####[facility] [address] [place] [address] CO2 [Moles/Vol] 24 mmol/L Normal 21-31 [facility] Comment on above: Performed By: #### 2 697297, 9205137, 79574574, 88793580, 4955813, 0358219, 3531996 ####[facility] [address] [place] [address] Potassium [Moles/Vol] 4.1 mmol/L Normal 3.5-5.3 [facility] Comment on above: Performed By: #### 2 464819, 0167775, 10441157, 98628840, 8042299, 2528632, 2572523 ####[facility] [address] [place] [address] Sodium [Moles/Vol] 145 mmol/L Normal 135-145 [facility] Comment on above: Performed By: #### 2 079671, 8772179, 33264783, 08854057, 5912394, 7588975, 9710181 ####[facility] [address] [place] [address] PT & PTTon 07-02-2023 aPTT Coag (PPP) [Time] 27.5 second(s) Normal 25.1-36.5 [facility] Comment on above: Result Comment: Para meter 15 days - 4 weeks 1 - 5 months 6 - 11 months 1 - 5 years 6 - 10 years 11 - 17 years PTT Mean: 35.4 (27.6-45.6) Mean: 33.5 (24.8-40.7) Mean: 32.4 (25.1-40.7) Mean: 31.6 (24.0-39.2) Mean: 31.6 (26.9-38.7) Mean: 31.0 (24.6-38.4) Pediatric Reference ranges were obtained from a study by Chris Hollnis et al. prepared from 1437 samples obtained at 7 different centers using the same coagulation reagent and instrumentation as [facility]. Currently there are no coagulation studies available worldwide for children to 14 days, and no normal ranges. Heparin therapeutic range (represented by Anti-Factor Xa activity of 0.2 - 0.4 U/mL) corresponds to PTT of 56.6 - 109.0 sec. Performed By: #### 2 285128, 2815591, 72186397, 85524262, 6273255, 7535686, 9943228 ####[facility] [address] [place] [address] INR Coag (PPP) [Relative time] 1.0 {INR} Invalid Interpretation Code [facility] Comment on above: Result Comment: INR results are specifically intended to assess patients stabilized on long-term Anticoagulation therapy suggested INR?s ?Less Intensive Anticoagulation? 2.0 ? 3.0Conventional Range 3.0 ? 4.5 Performed By: #### 2 292329, 2695431, 54245391, 93026630, 1065607, 1619565, 1334096 ####[facility] [address] [place] [address] PT Coag (PPP) [Time] 11.4 second(s) Normal 9.4-12.5 [facility] Comment on above: Result Comment: 15 [...] the same coagulation reagent and instrumentation as [facility]. Currently there are no coagulation studies available worldwide for children to 14 days, and no normal ranges. Performed By: #### 2 697504, 0110197, 29899254, 79960273, 8212217, 9941441, 3644124 ####[facility] [address] [place] [address] XR Abdomen 1 Viewon 07-02-20 23 XR Abdomen 1 View Normal [facility] eGFRon 07-02-2023 GFR/1.73 sq M.predicted among non-blacks MDRD (S/P/Bld) [Vol rate/Area] 44 mL/min/1.73 m2 Low >=59 [facility] Comment on above: Order Comment: Order added by Discern Expert. 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 Kidney failure is indicated at less than 15 mL/min/1.73m2. Performed By: #### 2 460659, 2057874, 78247623, 79813994, 6697337, 4632419, 2093797 ####[facility] [address] [place] [address] Consent for Treatmenton Consent for Treatment [id number]#1 .00TIFF [facility] Reminderson 06-11-2023 Reminders Normal [facility] XR Abdomen 1 Viewon 06-11-20 23 XR Abdomen 1 View [facility] Consent for Treatmenton 05-30 Consent for Treatment [id number]#1 .00TIFF [facility] C Blood Charcoalon 3 Blood Culture Charcoal Normal [facility] Comment on above: Performed By: #### 1 9812000 ####[facility] [address] [place] [address] C Blood Charcoalon 3 Blood Culture Charcoal [facility] Comment on above: Performed By: #### 1 2057319 ####[facility] [address] [place] [address] Blood Culture Charcoal [facility] Comment on above: Performed By: #### 1 9757487 ####[facility] [address] [place] [address] Consent for PICC lineon 10-0 Consent for PICC line [id number]# 1.00TIFF [facility] Discharge Instructionson Discharge Instructions [id number]# 1.00CD:127 Normal [facility] C Blood Charcoalon 3 Blood Culture Charcoal [facility] Comment on above: Performed By: #### 1 7268720 ####[facility] [address] [place] [address] CHEMISTRYOrdered By: Andrea Richter on 06-02-2023 POC Username OBI AGARWAL Invalid Interpretation Code [facility] POC Subsection Sodium [Moles/Vol] 217845427651 mmol/L Invalid Interpretation Code [facility] POC Subsection Sodium [Moles/Vol] 672841742 mmol/L Invalid Interpretation Code [facility] POC Subsection Capillary Glucose POCOrdered By: Andrea Han on 06-02-2023 Glucose [Mass/Vol] 152 mg/dL High 55-99 [facility] P OC Subsection Comment on above: Result Comment: Modesto vanegas RN/ Result Comment: Modesto vanegas RN/ Performed By: #### 2 [id number] ####[facility] [address] [place] [address] Coding Queryon 06-02-2023 Coding Query Normal [facility] Inpatient Clinical Summaryon 06-02-2023 Inpatient Clinical Summary Normal [facility] Inpatient Patient Summaryon 06-02-2023 Inpatient Patient Summary Normal [facility] Inpatient Patient Summary Normal [facility] Interdisciplinary Note - Galo e Manageron 06-02-2023 Interdisciplinary Note - Automotive Designer Normal [facility] Comment on above: Result Comment: Elec tronically Signed By: Rayne Carpenterbr\Date and Time Signed: 06/02/23 10:50 EDT BMPon 06-01-2023 Anion gap [Moles/Vol] 13 mmol/L Normal 6-16 [facility] Comment on above: Performed By: #### 2 606991, 54317237 ####[facility] [address] [place] [address] Calcium [Mass/Vol] 8.9 mg/dL Normal 8.9-11.1 [facility] Comment on above: Performed By: #### 2 073424, 87416556 ####[facility] [address] [place] [address] Chloride [Moles/Vol] 115 mmol/L High 101-111 [facility] Comment on above: Performed By: #### 2 364094, 04360352 ####[facility] [address] [place] [address] CO2 [Moles/Vol] 20 mmol/L Low 21-31 [facility] Comment on above: Performed By: #### 2 738467, 55220797 ####[facility] [address] [facility] [place] [address] Creatinine [Mass/Vol] 1.2 mg/dL Normal 0.5-1.3 [facility] Comment on above: Performed By: #### 2 690005, 60780839 ####[facility] [address] [place] [address] Glucose [Mass/Vol] 104 mg/dL Normal 55-199 [facility] Comment on above: Result Comment: If t his glucose result represents a fasting glucose, interpretation should refer to the following reference range: 55-99 mg/dL Performed By: #### 2 191498, 49149251 ####[facility] [address] [place] [address] Potassium [Moles/Vol] 3.6 mmol/L Normal 3.5-5.3 [facility] Comment on above: Performed By: #### 2 091366, 10924275 ####[facility] [address] [place] [address] Sodium [Moles/Vol] 144 mmol/L Normal 135-145 [facility] Comment on above: Performed By: #### 2 216792, 17259661 ####[facility] [address] [place] [address] Urea nitrogen [Mass/Vol] 17 mg/dL Normal 5-21 [facility] Comment on above: Performed By: #### 2 777640, 31204475 ####[facility] [address] [place] [address] Urea nitrogen/Creatinine [Mass ratio] 14 No Units Normal 10-20 [facility] Comment on above: Performed By: #### 2 835591, 92931900 ####[facility] [address] [place] [address] CHEMISTRYOrdered By: Lab ROP User on 06-01-2023 Glucose [Mass/Vol] 213 mg/dL High 55 - 99 mg/dL [facility] C POC Subsection Comment on above: Result Comment: Modesto vanegas RN/ POC Username ASHOK ORTEZ Invalid Interpretation Code [facility] POC Subsection Sodium [Moles/Vol] 021676033136 mmol/L Invalid Interpretation Code [facility] POC Subsection Sodium [Moles/Vol] 155724503 mmol/L Invalid Interpretation Code [facility] POC Subsection Glucose [Mass/Vol] 183 mg/dL High 55 - 99 mg/dL [facility] C POC Subsection Comment on above: Result Comment: Modesto vanegas RN/ POC Username JANIA GREEN Invalid Interpretation Code [facility] POC Subsection Sodium [Moles/Vol] 843450208544 mmol/L Invalid Interpretation Code [facility] POC Subsection Sodium [Moles/Vol] 667394057 mmol/L Invalid Interpretation Code [facility] POC Subsection CHEMISTRYOrdered By: SYSTEM SYSTEM on 06-01-2023 Anion gap [Moles/Vol] 13 mmol/L Normal 6 - 16 mEq/L [facility] Remisol Calcium [Mass/Vol] 8.9 mg/dL Normal 8.9 - 11.1 mg/dL [facility]isol Chloride [Moles/Vol] 115 mmol/L High 101 - 111 mmol/ L [facility] Remisol CO2 [Moles/Vol] 20 mmol/L Low 21 - 31 mmol/L [facility] Remisol Creatinine [Mass/Vol] 1.2 mg/dL Normal 0.5 - 1.3 mg/dL [facility] Remisol GFR/1.73 sq M.predicted among non-blacks MDRD (S/P/Bld) [Vol rate/Area] 48 mL/min/1.73 m2 Low >=59mL/min/1.73 m2 [facility] Chem S Comment on above: Interpretive Data: C hronic kidney disease could be indicated at eGFR's of less than 60 mL/min/1.73m2. Kidney failure is indicated at less than 15 mL/min/1.73m2. Glucose [Mass/Vol] 104 mg/dL Normal 55 - 199 mg/dL [facility] Comment on above: Interpretive Data: I f this glucose result represents a fasting glucose, interpretation should refer to the following reference range: 55-99 mg/dL Potassium [Moles/Vol] 3.6 mmol/L Normal 3.5 - 5.3 mmol/L [facility] Remisol Sodium [Moles/Vol] 144 mmol/L Normal 135 - 145 mmol/L [facility] Remisol Urea nitrogen [Mass/Vol] 17 mg/dL Normal 5 - 21 mg/dL [facility] Remisol Urea nitrogen/Creatinine [Mass ratio] 14 mg/mg Normal 10 - 20 [facility] Capillary Glucose POCon 10-0 3-2023 Glucose [Mass/Vol] 213 mg/dL High 55-99 [facility] Comment on above: Result Comment: [place] ANDRES Performed By: #### 2 [id number] ####[facility] [address] [facility] [place] [address] Glucose [Mass/Vol] 183 mg/dL High 55-99 [facility] Comment on above: Result Comment: [place] ANDRES Performed By: #### 2 [id number] ####[facility] [address] [place] [address] Glucose [Mass/Vol] 270 mg/dL High 55-99 [facility] Comment on above: Result Comment: [place] ANDRES Performed By: #### 2 [id number] ####[facility] [address] AveNorva [place] [address] Glucose [Mass/Vol] 102 mg/dL High 55-99 [facility] Comment on above: Result Comment: [place] ANDRES Performed By: #### 2 [id number] ####[facility] [address] Ave[address]va [place] [address] Consultation Noteon 06-01-20 Consultation Note Normal [facility] Comment on above: Result Comment: Elec tronically Signed By: Garrett Palmer M.D\.br\Date and Time Signed: 06/01/23 14:24 EDT Interdisciplinary Note - Galo e Manageron 06-01-2023 Interdisciplinary Note - Automotive Designer [facility] Comment on above: Result Comment: Elec tronically Signed By: Rayne Carpenter\.br\Date and Time Signed: 06/01/23 15:24 EDT Progress Note-Physicianon Progress Note-Physician [facility] Comment on above: Result Comment: Elec tronically Signed By: Jhonny Barrett DObr\Date and Time Signed: 06/01/23 13:20 EDT Progress Note-Physician [facility] Comment on above: Result Comment: Elec tronically Signed By: MD Ingrid, Jossy Greene\.br\Date and Time Signed: 06/01/23 11:21 EDT Progress Note-Physician Normal [facility] Comment on above: Result Comment: Elec tronically Signed By: MD Ingrid, Jossy Greene\.hector\Date and Time Signed: 06/01/23 11:17 EDT eGFRon 06-01-2023 GFR/1.73 sq M.predicted among non-blacks MDRD (S/P/Bld) [Vol rate/Area] 48 mL/min/1.73 m2 Low >=59 [facility] Comment on above: Order Comment: Order added by Discern Expert. 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 Kidney failure is indicated at less than 15 mL/min/1.73m2. Performed By: #### 2 [id number], [id number] ####[facility] [address] [place] [address] C Blood Charcoalon 3 Blood Culture Charcoal Normal [facility] Comment on above: Performed By: #### 1 [id number] ####[facility] [address] [place] [address] Capillary Glucose POCon Glucose [Mass/Vol] 161 mg/dL High 55-99 [facility] Comment on above: Result Comment: [place] ANDRES Performed By: #### 2 [id number] ####[facility] [address] [place] [address] Glucose [Mass/Vol] 142 mg/dL High 55-99 [facility] Comment on above: Result Comment: [place] ANDRES Performed By: #### 2 [id number] ####[facility] [address] [place] [address] Glucose [Mass/Vol] 201 mg/dL High 55-99 [facility] Comment on above: Result Comment: [place] ANDRES Performed By: #### 2 [id number] ####[facility] [address] [place] [address] Glucose [Mass/Vol] 139 mg/dL High 55-99 [facility] Comment on above: Result Comment: [place] vanegas RN/ Performed By: #### 2 [id number] ####[facility] [address] [place] [address] Interdisciplinary Note - Galo e Manageron 05-31-2023 Interdisciplinary Note - Automotive Designer [facility] Comment on above: Result Comment: Elec tronically Signed By: Rayne Carpenter\.br\Date and Time Signed: 05/31/23 10:58 EDT Interdisciplinary Note - Automotive Designer [facility] Comment on above: Result Comment: Elec tronically Signed By: Rayne Carpenter\.br\Date and Time Signed: 05/31/23 10:40 EDT IntraOperative Documentson 1 IntraOperative Documents [id number]# 1.00CD:127 [facility] Progress Note-Physicianon Progress Note-Physician Normal [facility] Comment on above: Result Comment: Elec tronically Signed By: Jhonny Barrett DO\Date and Time Signed: 05/31/23 11:13 EDT BMPon 05-30-2023 Anion gap [Moles/Vol] 5 mmol/L Low 6-16 [facility] Comment on above: Performed By: #### 2 121696, [id number] ####[facility] [address] [place] [address] Calcium [Mass/Vol] 8.1 mg/dL Low 8.9-11.1 [facility] Comment on above: Performed By: #### 2 447441, [id number] ####[facility] [address] [place] [address] Chloride [Moles/Vol] 116 mmol/L High 101-111 [facility] Comment on above: Performed By: #### 2 552748, [id number] ####[facility] [address] [place] [address] CO2 [Moles/Vol] 24 mmol/L Normal 21-31 [facility] Comment on above: Performed By: #### 2 369829, 10333628 ####[facility] [address] [place] [address] Creatinine [Mass/Vol] 1.6 mg/dL High 0.5-1.3 [facility] Comment on above: Performed By: #### 2 091902, [id number] ####[facility] [address] [place] [address] Glucose [Mass/Vol] 105 mg/dL Normal 55-199 [facility] Comment on above: Result Comment: If t his glucose result represents a fasting glucose, interpretation should refer to the following reference range: 55-99 mg/dL Performed By: #### 2 303034, [id number] ####[facility] [address] [place] [address] Potassium [Moles/Vol] 3.8 mmol/L Normal 3.5-5.3 [facility] Comment on above: Performed By: #### 2 921242, 31970696 ####[facility] [address] [place] [address] Sodium [Moles/Vol] 141 mmol/L Normal 135-145 [facility] Comment on above: Performed By: #### 2 184382, 85485619 ####[facility] [address] [place] [address] Urea nitrogen [Mass/Vol] 28 mg/dL High 5-21 [facility] Comment on above: Performed By: #### 2 911310, [id number] ####[facility] [address] [place] [address] Urea nitrogen/Creatinine [Mass ratio] 18 No Units Normal 10-20 [facility] Comment on above: Performed By: #### 2 187063, [id number] ####[facility] [address] [place] [address] C Urineon 05-30-2023 Bacteria identified Cx Nom (U) Normal [facility] Comment on above: Performed By: #### 1 8046927, 3551824 ####[facility] [address] [place] [address] CHEMISTRYOrdered By: SYSTEM SYSTEM on 05-30-2023 Anion gap [Moles/Vol] 5 mmol/L Low 6 - 16 mEq/L [facility] Remisol Calcium [Mass/Vol] 8.1 mg/dL Low 8.9 - 11.1 mg/dL [facility] Remisol Chloride [Moles/Vol] 116 mmol/L High 101 - 111 mmol/ L [facility] Remisol CO2 [Moles/Vol] 24 mmol/L Normal 21 - 31 mmol/L [facility] Remisol Creatinine [Mass/Vol] 1.6 mg/dL High 0.5 - 1.3 mg/dL [facility] Remisol GFR/1.73 sq M.predicted among non-blacks MDRD (S/P/Bld) [Vol rate/Area] 34 mL/min/1.73 m2 Low >=59mL/min/1.73 m2 [facility] Chem S Comment on above: Interpretive Data: [...] 3.8 mmol/L Normal 3.5 - 5.3 mmol/L [facility] Remisol Sodium [Moles/Vol] 141 mmol/L Normal 135 - 145 mmol/L [facility] Remisol Urea nitrogen [Mass/Vol] 28 mg/dL High 5 - 21 mg/dL [facility] Remisol Urea nitrogen/Creatinine [Mass ratio] 18 mg/mg Normal 10 - 20 [facility] Remisol Capillary Glucose POCon Glucose [Mass/Vol] 209 mg/dL High 55-99 [facility] Comment on above: Result Comment: [place] vanegas RN/ Performed By: #### 2 [id number] ####[facility] [address] [place] [address] Glucose [Mass/Vol] 171 mg/dL High 55-99 [facility] Comment on above: Result Comment: [place] vanegas RN/ Performed By: #### 2 [id number] ####[facility] [address] [place] [address] Glucose [Mass/Vol] 191 mg/dL High 55-99 [facility] Comment on above: Result Comment: [place] vanegas RN/ Performed By: #### 2 [id number] ####[facility] [address] [place] [address] Glucose [Mass/Vol] 92 mg/dL Normal 55-99 [facility] Comment on above: Result Comment: [place] vanegas RN/ Performed By: #### 2 [id number] ####[facility] [address] [place] [address] Interdisciplinary Note - Galo e Manageron 05-30-2023 Interdisciplinary Note - Automotive Designer Normal [facility] Comment on above: Result Comment: Elec tronically Signed By: Crow MARCUM, Radhika\.br\Date and Time Signed: 05/30/23 13:39 EDT No Panel InformationOrdered By: [facility] on 05-30-2023 Blood Culture Charcoal No growth at 3 days. Final to follow at 7 days. [facility] Blood Culture Charcoal No growth at 3 days. Final to follow at 7 days. [facility] Progress Note-Physicianon Progress Note-Physician Normal [facility] Comment on above: Result Comment: Elec tronically Signed By: ISHAN CHISHOLM, Felice\.br\Date and Time Signed: 05/30/23 09:03 EDT eGFRon 05-30-2023 GFR/1.73 sq M.predicted among non-blacks MDRD (S/P/Bld) [Vol rate/Area] 34 mL/min/1.73 m2 Low >=59 [facility] Comment on above: Order Comment: Order added by Discern Expert. 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 Kidney failure is indicated at less than 15 mL/min/1.73m2. Performed By: #### 2 404556, [id number] ####[facility] [address] [place] [address] Auto Diffon 05-29-2023 Basophils/100 WBC (Bld) 0.2 % Normal 0.0-2.0 [facility] Comment on above: Order Comment: Order Added by Discern Expert. Performed By: #### 2 002415, 4285130, 3819997, 44747922 ####[place] [address] [place] [address] Basophils/Leukocytes Auto (Bld) [Pure # fraction] 0.0 E9/L Normal 0.0-0.2 [facility] Comment on above: Order Comment: Order Added by Discern Expert. Performed By: #### 2 374587, 3036520, 5195285, 83991134 ####[address] [address] Eosinophils/100 WBC (Bld) 1.1 % Normal 0.0-8.0 [facility] Comment on above: Order Comment: Order Added by Discern Expert. Performed By: #### 2 073900, 7833101, 1426547, 06006242 ####[address] [address] Eosinophils/Leukocyt es Auto (Bld) [Pure # fraction] 0.1 E9/L Normal 0.0-0.5 [facility] Comment on above: Order Comment: Order Added by Discern Expert. Performed By: #### 2 113608, 2464982, 4522310, 65503708 ####[place] [place] [address] Lymphocytes/100 WBC (Bld) 4.9 % Low 14.0-50.0 [facility] Comment on above: Order Comment: Order Added by Discern Expert. Performed By: #### 2 713718, 3607784, 3399705, 89688001 ####[address] [address] Lymphocytes/Leukocyt es Auto (Bld) [Pure # fraction] 0.4 E9/L Low 1.0-4.0 [facility] Comment on above: Order Comment: Order Added by Discern Expert. Performed By: #### 2 336752, 5429403, 4020790, 75419721 ####[address] [place] [address] Monocytes/100 WBC (Bld) 6.4 % Normal 4.0-14.0 [facility] Comment on above: Order Comment: Order Added by Discern Expert. Performed By: #### 2 562967, 8167868, 5753941, 73532155 ####[address] [address] Monocytes/Leukocytes Auto (Bld) [Pure # fraction] 0.6 E9/L Normal 0.2-1.0 [facility] Comment on above: Order Comment: Order Added by Discern Expert. Performed By: #### 2 513835, 7713995, 4080360, 75989511 ####[address] [address] Neutrophils/100 WBC (Bld) 87.4 % High 36.0-75.0 [facility] Comment on above: Order Comment: Order Added by Discern Expert. Performed By: #### 2 405878, 0778365, 6312665, 06664701 ####[address] [address] Neutrophils/Leukocyt es Auto (Bld) [Pure # fraction] 7.6 E9/L High 2.0-7.5 [facility] Comment on above: Order Comment: Order Added by Discern Expert. Performed By: #### 2 386031, 4425768, 7393533, 67486290 ####[address] [place] [address] BMPon 05-29-2023 Anion gap [Moles/Vol] 10 mmol/L Normal 6-16 [facility] Comment on above: Performed By: #### 2 736812, 8703742, 6689576, 41892239 ####[address] [place] [address] Calcium [Mass/Vol] 8.2 mg/dL Low 8.9-11.1 [facility] Comment on above: Performed By: #### 2 375983, 8539889, 7465925, 24840342 ####[facility] [address] [place] [address] Chloride [Moles/Vol] 109 mmol/L Normal 101-111 [facility] Comment on above: Performed By: #### 2 914141, 0685803, 6535953, 40209521 ####[facility] [address] [place] [address] CO2 [Moles/Vol] 24 mmol/L Normal 21-31 [facility] Comment on above: Performed By: #### 2 069861, 0528221, 9825942, 81636321 ####[facility] [address] [place] [address] Creatinine [Mass/Vol] 1.9 mg/dL High 0.5-1.3 [facility] Comment on above: Performed By: #### 2 451115, 4258803, 8824114, 54171666 ####[facility] [address] [place] [address] Glucose [Mass/Vol] 160 mg/dL Normal 55-199 [facility] Comment on above: Result Comment: If t his glucose result represents a fasting glucose, interpretation should refer to the following reference range: 55-99 mg/dL Performed By: #### 2 495299, 2052555, 1389024, 78660846 ####[facility] [address] [place] [address] Potassium [Moles/Vol] 3.4 mmol/L Low 3.5-5.3 [facility] Comment on above: Performed By: #### 2 049715, 2115767, 6261902, 21180099 ####[facility] [address] [place] [address] Sodium [Moles/Vol] 140 mmol/L Normal 135-145 [facility] Comment on above: Performed By: #### 2 163383, 2973699, 5158397, 87207455 ####[facility] [address] [place] [address] Urea nitrogen [Mass/Vol] 30 mg/dL High 5-21 [facility] Comment on above: Performed By: #### 2 647806, 8379148, 5523582, 15117378 ####[facility] [address] [place] [address] Urea nitrogen/Creatinine [Mass ratio] 16 No Units Normal 10-20 [facility] Comment on above: Performed By: #### 2 995753, 6057781, 3176483, 73868049 ####[facility] [address] [place] [address] C Urineon 05-29-2023 Bacteria identified Cx Nom (U) Normal [facility] Comment on above: Performed By: #### 1 5716986, 3519037 ####[facility] [address] [place] [address] CBC w/ Auto Diffon Erythrocyte distribution width (RBC) [Ratio] 13.2 % Normal 10.9-14.2 [facility] Comment on above: Performed By: #### 2 132991, 5025868, 2359637, 67992267 ####[facility] [address] [place] [address] Hematocrit (Bld) [Volume fraction] 34.7 % Normal 34.0-46.0 [facility] Comment on above: Performed By: #### 2 879893, 4316275, 7361506, 92891195 ####[facility] [address] [place] [address] Hemoglobin (Bld) [Mass/Vol] 11.9 g/dL Low 12.0-16.0 [facility] Comment on above: Performed By: #### 2 937408, 3848986, 2481109, 32467668 ####[facility] [address] [place] [address] MCH (RBC) [Entitic mass] 31.1 pg Normal 27.0-34.0 [facility] Comment on above: Performed By: #### 2 235305, 8192728, 6746444, 90380544 ####[facility] [address] [place] [address] MCHC (RBC) [Mass/Vol] 34.2 g/dL Normal 31.4-36.0 [facility] Comment on above: Performed By: #### 2 939548, 4697948, 1954497, 71507144 ####[address] [place] [address] MCV (RBC) [Entitic vol] 91.0 fL Normal 80.0-100.0 [facility] Comment on above: Performed By: #### 2 621537, 8997165, 8856187, 47957539 ####[place] [address] Platelet mean volume (Bld) [Entitic vol] 7.7 fL Normal 6.4-10.8 [facility] Comment on above: Performed By: #### 2 385898, 0509121, 6150111, 28632945 ####[address] [address] Platelets (Bld) [#/Vol] 152.0 E9/L Normal 150.0-500.0 [facility] Comment on above: Performed By: #### 2 140003, 1929965, 3607414, 97228550 ####[address] [address] RBC (Bld) [#/Vol] 3.8 E12/L Low 4.3-5.9 [facility] Comment on above: Performed By: #### 2 080282, 7668579, 9786276, 93889982 ####[address] [address] WBC corrected for nucl RBC Auto (Bld) [#/Vol] 8.7 E9/L Normal 4.0-11.0 [facility] Comment on above: Performed By: #### 2 948910, 2306511, 8598280, 75586311 ####[facility] [address] [place] [address] CHEMISTRYOrdered By: SYSTEM SYSTEM on 05-29-2023 Anion gap [Moles/Vol] 10 mmol/L Normal 6 - 16 mEq/L [facility] Calcium [Mass/Vol] 8.2 mg/dL Low 8.9 - 11.1 mg/dL [facility] Chloride [Moles/Vol] 109 mmol/L Normal 101 - 111 mmol/ L [facility] CO2 [Moles/Vol] 24 mmol/L Normal 21 - 31 mmol/L [facility] Creatinine [Mass/Vol] 1.9 mg/dL High 0.5 - 1.3 mg/dL [facility] GFR/1.73 sq M.predicted among non-blacks MDRD (S/P/Bld) [Vol rate/Area] 28 mL/min/1.73 m2 Low >=59mL/min/1.73 m2 [facility] Chem S Comment on above: Interpretive Data: [...] 3.4 mmol/L Low 3.5 - 5.3 mmol/L [facility] Remisol Sodium [Moles/Vol] 140 mmol/L Normal 135 - 145 mmol/L [facility] Remisol Urea nitrogen [Mass/Vol] 30 mg/dL High 5 - 21 mg/dL [facility] Remisol Urea nitrogen/Creatinine [Mass ratio] 16 mg/mg Normal 10 - 20 [facility] Remisol Capillary Glucose POCon 05-02 Glucose [Mass/Vol] 205 mg/dL High 55-99 [facility] Comment on above: Result Comment: [place] vanegas RN/MD Performed By: #### 2 [id number] ####[facility] [address] [place] [address] Glucose [Mass/Vol] 214 mg/dL High 55-99 [facility] Comment on above: Result Comment: Sheryl minda Meter Performed By: #### 2 40580781 ####[facility] [address] [place] [address] Glucose [Mass/Vol] 206 mg/dL High 55-99 [facility] Comment on above: Result Comment: Sheryl minda Meter Performed By: #### 2 81642872 ####[facility] [address] [place] [address] Glucose [Mass/Vol] 156 mg/dL High 55-99 [facility] Comment on above: Result Comment: Sheryl minda Meter Performed By: #### 2 57095863 ####[facility] [address] [place] [address] HEMATOLOGYOrdered By: SYSTEM SYSTEM on 05-29-2023 Basophils/100 WBC (Bld) 0.2 % Normal 0.0 - 2.0 % [facility] HemeAutoSS Basophils/Leukocytes Auto (Bld) [Pure # fraction] 0.0 E9/L Normal 0.0 - 0.2 E9/L [facility] HemeAutoSS Eosinophils/100 WBC (Bld) 1.1 % Normal 0.0 - 8.0 % [facility] HemeAutoSS Eosinophils/Leukocyt es Auto (Bld) [Pure # fraction] 0.1 E9/L Normal 0.0 - 0.5 E9/L [facility] HemeAutoSS Lymphocytes/100 WBC (Bld) 4.9 % Low 14.0 - 50.0 % [facility] HemeAutoSS Lymphocytes/Leukocyt es Auto (Bld) [Pure # fraction] 0.4 E9/L Low 1.0 - 4.0 E9/L [facility] HemeAutoSS Monocytes/100 WBC (Bld) 6.4 % Normal 4.0 - 14.0 % [facility] HemeAutoSS Monocytes/Leukocytes Auto (Bld) [Pure # fraction] 0.6 E9/L Normal 0.2 - 1.0 E9/L [facility] HemeAutoSS Neutrophils/100 WBC (Bld) 87.4 % High 36.0 - 75.0 % [facility] HemeAutoSS Neutrophils/Leukocyt es Auto (Bld) [Pure # fraction] 7.6 E9/L High 2.0 - 7.5 E9/L [facility] HemeAutoSS HEMATOLOGYOrdered By: Rayne Barnhart on 05-29-2023 Erythrocyte distribution width (RBC) [Ratio] 13.2 % Normal 10.9 - 14.2 % [facility] HemeAutoSS Hematocrit (Bld) [Volume fraction] 34.7 % Normal 34.0 - 46.0 % [facility] HemeAutoSS Hemoglobin (Bld) [Mass/Vol] 11.9 g/dL Low 12.0 - 16.0 gm/dL [facility] HemeAutoSS MCH (RBC) [Entitic mass] 31.1 pg Normal 27.0 - 34.0 pg [facility] HemeAutoSS MCHC (RBC) [Mass/Vol] 34.2 g/dL Normal 31.4 - 36.0 gm/dL [facility] HemeAutoSS MCV (RBC) [Entitic vol] 91.0 fL Normal 80.0 - 100.0 fL [facility] HemeAutoSS Platelet mean volume (Bld) [Entitic vol] 7.7 fL Normal 6.4 - 10.8 fL [facility] HemeAutoSS Platelets (Bld) [#/Vol] 152.0 E9/L Normal 150.0 - 500.0 E9/L [facility] HemeAutoSS RBC (Bld) [#/Vol] 3.8 E12/L Low 4.3 - 5.9 E12/L [facility] HemeAutoSS WBC corrected for nucl RBC Auto (Bld) [#/Vol] 8.7 E9/L Normal 4.0 - 11.0 E9/L [facility] HemeAutoSS Interdisciplinary Note - PTo n 05-29-2023 Interdisciplinary Note - PT Normal [facility] Message from Medicareon 05-02 Message from Medicare [id number]# 1.00CD:127 Normal [facility] No Panel InformationOrdered By: ANGPROCESSSERVER MICROBIOLOGY on 05-29-2023 Blood Culture Charcoal No growth at 4 days. Final to follow at 7 days. [facility] Blood Culture Charcoal No growth at 4 days. Final to follow at 7 days. [facility] Progress Note-Physicianon Progress Note-Physician Normal [facility] Comment on above: Result Comment: Elec tronically Signed By: ISHAN CHISHOLM, Felice\.br\Date and Time Signed: 05/29/23 15:21 EDT eGFRon 05-29-2023 GFR/1.73 sq M.predicted among non-blacks MDRD (S/P/Bld) [Vol rate/Area] 28 mL/min/1.73 m2 Low >=59 [facility] Comment on above: Order Comment: Order added by Discern Expert. 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 Kidney failure is indicated at less than 15 mL/min/1.73m2. Performed By: #### 2 610001, 4286248, 7896489, 36677471 ####[facility] [address] [place] [address] Auto Diffon 05-28-2023 Basophils/100 WBC (Bld) 0.2 % Normal 0.0-2.0 [facility] Comment on above: Order Comment: Order Added by Discern Expert. Performed By: #### 2 870799, 37562720, 6874483, 9911404 ####[facility] [address] [place] [address] Basophils/Leukocytes Auto (Bld) [Pure # fraction] 0.0 E9/L Normal 0.0-0.2 [facility] Comment on above: Order Comment: Order Added by Discern Expert. Performed By: #### 2 775735, 40194194, 7326788, 2393427 ####[facility] [address] [place] [address] Eosinophils/100 WBC (Bld) 0.1 % Normal 0.0-8.0 [facility] Comment on above: Order Comment: Order Added by Discern Expert. Performed By: #### 2 639021, 18930698, 9486413, 9444488 ####[facility] [address] [place] [address] Eosinophils/Leukocyt es Auto (Bld) [Pure # fraction] 0.0 E9/L Normal 0.0-0.5 [facility] Comment on above: Order Comment: Order Added by Discern Expert. Performed By: #### 2 181723, 79945950, 2509980, 8038869 ####[address] [address] Lymphocytes/100 WBC (Bld) 2.6 % Low 14.0-50.0 [facility] Comment on above: Order Comment: Order Added by Discern Expert. Performed By: #### 2 539285, 48116515, 6087264, 3551396 ####[address] [address] Lymphocytes/Leukocyt es Auto (Bld) [Pure # fraction] 0.3 E9/L Low 1.0-4.0 [facility] Comment on above: Order Comment: Order Added by Discern Expert. Performed By: #### 2 347721, 13061019, 8916931, 6171960 ####[address] [address] Monocytes/100 WBC (Bld) 3.8 % Low 4.0-14.0 [facility] Comment on above: Order Comment: Order Added by Discern Expert. Performed By: #### 2 658892, 36975147, 8023446, 5377710 ####[address] [address] Monocytes/Leukocytes Auto (Bld) [Pure # fraction] 0.5 E9/L Normal 0.2-1.0 [facility] Comment on above: Order Comment: Order Added by Discern Expert. Performed By: #### 2 141990, 10002434, 5103205, 9329996 ####[address] [address] Neutrophils/100 WBC (Bld) 93.3 % High 36.0-75.0 [facility] Comment on above: Order Comment: Order Added by Discern Expert. Performed By: #### 2 228165, 08793419, 9862267, 1621988 ####[facility] [address] [place] [address] Neutrophils/Leukocyt es Auto (Bld) [Pure # fraction] 11.2 E9/L High 2.0-7.5 [facility] Comment on above: Order Comment: Order Added by Discern Expert. Performed By: #### 2 080365, 46261709, 2061341, 5553163 ####[facility] [address] [place] [address] BMPon 05-28-2023 Anion gap [Moles/Vol] 11 mmol/L Normal 6-16 [facility] Comment on above: Performed By: #### 2 132698, 65799788, 6724962, 0603619 ####[facility] [address] [place] [address] Calcium [Mass/Vol] 8.0 mg/dL Low 8.9-11.1 [facility] Comment on above: Performed By: #### 2 837269, 40265509, 9348500, 0828617 ####[facility] [address] [place] [address] Chloride [Moles/Vol] 109 mmol/L Normal 101-111 [facility] Comment on above: Performed By: #### 2 366531, 52638464, 5947649, 2046923 ####[facility] [address] [place] [address] CO2 [Moles/Vol] 22 mmol/L Normal 21-31 [facility] Comment on above: Performed By: #### 2 157786, 80081954, 1245921, 7890741 ####[facility] [address] [place] [address] Creatinine [Mass/Vol] 2.0 mg/dL High 0.5-1.3 [facility] Comment on above: Performed By: #### 2 454638, 60773210, 4026105, 6401953 ####[facility] [address] [place] [address] Glucose [Mass/Vol] 161 mg/dL Normal 55-199 [facility] Comment on above: Result Comment: If t his glucose result represents a fasting glucose, interpretation should refer to the following reference range: 55-99 mg/dL Performed By: #### 2 501244, 84714428, 5483429, 6127100 ####[facility] [address] [place] [address] Potassium [Moles/Vol] 3.5 mmol/L Normal 3.5-5.3 [facility] Comment on above: Performed By: #### 2 804968, 14942235, 6143389, 8891072 ####[facility] [address] [place] [address] Sodium [Moles/Vol] 138 mmol/L Normal 135-145 [facility] Comment on above: Performed By: #### 2 978114, 32018515, 6627948, 1279857 ####[facility] [address] [place] [address] Urea nitrogen [Mass/Vol] 25 mg/dL High 5-21 [facility] Comment on above: Performed By: #### 2 049736, 92212941, 7521883, 7131622 ####[facility] [address] [place] [address] Urea nitrogen/Creatinine [Mass ratio] 12 No Units Normal 10-20 [facility] Comment on above: Performed By: #### 2 422207, 97387781, 7455113, 9149048 ####[facility] [address] [place] [address] CBC w/ Auto Diffon 3 Erythrocyte distribution width (RBC) [Ratio] 13.5 % Normal 10.9-14.2 [facility] Comment on above: Performed By: #### 2 508189, 94162536, 7671741, 9824051 ####[facility] [address] [place] [address] Hematocrit (Bld) [Volume fraction] 36.0 % Normal 34.0-46.0 [facility] Comment on above: Performed By: #### 2 266301, 69358582, 6618826, 7322675 ####[facility] [address] [place] [address] Hemoglobin (Bld) [Mass/Vol] 12.3 g/dL Normal 12.0-16.0 [facility] Comment on above: Performed By: #### 2 963769, 94986091, 3033931, 4328887 ####[address] [address] MCH (RBC) [Entitic mass] 31.0 pg Normal 27.0-34.0 [facility] Comment on above: Performed By: #### 2 403845, 82037610, 0005408, 4947495 ####[place] [address] MCHC (RBC) [Mass/Vol] 34.2 g/dL Normal 31.4-36.0 [facility] Comment on above: Performed By: #### 2 762378, 09003493, 1242124, 3223984 ####[address] [address] MCV (RBC) [Entitic vol] 90.7 fL Normal 80.0-100.0 [facility] Comment on above: Performed By: #### 2 098160, 90304206, 1842248, 6643131 ####[address] [address] Platelet mean volume (Bld) [Entitic vol] 7.3 fL Normal 6.4-10.8 [facility] Comment on above: Performed By: #### 2 599871, 47027544, 9448408, 0931364 ####[address] [address] Platelets (Bld) [#/Vol] 154.0 E9/L Normal 150.0-500.0 [facility] Comment on above: Performed By: #### 2 220741, 41544087, 2589279, 1981865 ####[facility] [address] [place] [address] RBC (Bld) [#/Vol] 4.0 E12/L Low 4.3-5.9 [facility] Comment on above: Performed By: #### 2 847071, 47927756, 8668382, 8201444 ####[facility] [address] [place] [address] WBC corrected for nucl RBC Auto (Bld) [#/Vol] 12.0 E9/L High 4.0-11.0 [facility] Comment on above: Performed By: #### 2 178597, 24577126, 5689490, 4272121 ####[address] [address] Capillary Glucose POCon 05-01 Glucose [Mass/Vol] 173 mg/dL High [address] [place] [address] Comment on above: Result Comment: [place] ANDRES Performed By: #### 2 66556117 ####[address] [address] Glucose [Mass/Vol] 122 mg/dL High [address] [place] [address] Comment on above: Result Comment: [place] ANDRES Performed By: #### 2 69985604 ####[place] [address] [place] [address] Glucose [Mass/Vol] 140 mg/dL High [address] [place] [address] Comment on above: Result Comment: [place] ANDRES Performed By: #### 2 56319723 ####[place] [address] [place] [address] Glucose [Mass/Vol] 145 mg/dL High [address] Comment on above: Result Comment: [place] ANDRES Performed By: #### 2 53493130 ####[place] [address] [place] [address] Consent for Anesthesiaon Consent for Anesthesia [id number]# 1.00CD:127 Normal [facility] HEMATOLOGYOrdered By: SYSTEM SYSTEM on 05-28-2023 Basophils/100 WBC (Bld) 0.2 % Normal 0.0 - 2.0 % [facility] HemeAutoSS Basophils/Leukocytes Auto (Bld) [Pure # fraction] 0.0 E9/L Normal 0.0 - 0.2 E9/L [facility]eAuto[facility] Eosinophils/100 WBC (Bld) 0.1 % Normal 0.0 - 8.0 % [facility]eAuto[facility] Eosinophils/Leukocyt es Auto (Bld) [Pure # fraction] 0.0 E9/L Normal 0.0 - 0.5 E9/L [facility]eAuto[facility] Lymphocytes/100 WBC (Bld) 2.6 % Low 14.0 - 50.0 % [facility]eAutoSS Lymphocytes/Leukocyt es Auto (Bld) [Pure # fraction] 0.3 E9/L Low 1.0 - 4.0 E9/L [facility]eAuto[facility] Monocytes/100 WBC (Bld) 3.8 % Low 4.0 - 14.0 % [facility]eAuto[facility] Monocytes/Leukocytes Auto (Bld) [Pure # fraction] 0.5 E9/L Normal 0.2 - 1.0 E9/L [facility] Neutrophils/100 WBC (Bld) 93.3 % High 36.0 - 75.0 % [facility]eAuto[facility] Neutrophils/Leukocyt es Auto (Bld) [Pure # fraction] 11.2 E9/L High 2.0 - 7.5 E9/L [facility] HEMATOLOGYOrdered By: Rayne Barnhart on 05-28-2023 Erythrocyte distribution width (RBC) [Ratio] 13.5 % Normal 10.9 - 14.2 % [facility]eAuto[facility] Hematocrit (Bld) [Volume fraction] 36.0 % Normal 34.0 - 46.0 % [facility]eAuto[facility] Hemoglobin (Bld) [Mass/Vol] 12.3 g/dL Normal 12.0 - 16.0 gm/dL [facility] MCH (RBC) [Entitic mass] 31.0 pg Normal 27.0 - 34.0 pg [facility]eAuto[facility] MCHC (RBC) [Mass/Vol] 34.2 g/dL Normal 31.4 - 36.0 gm/dL [facility] HemeAutoSS MCV (RBC) [Entitic vol] 90.7 fL Normal 80.0 - 100.0 fL [facility] HemeAutoSS Platelet mean volume (Bld) [Entitic vol] 7.3 fL Normal 6.4 - 10.8 fL [facility] HemeAutoSS Platelets (Bld) [#/Vol] 154.0 E9/L Normal 150.0 - 500.0 E9/L [facility]eAutoSS RBC (Bld) [#/Vol] 4.0 E12/L Low 4.3 - 5.9 E12/L [facility] HemeAutoSS WBC corrected for nucl RBC Auto (Bld) [#/Vol] 12.0 E9/L High 4.0 - 11.0 E9/L [facility] HemeAutoSS Insurance Correspondence Off iceon 05-28-2023 Insurance Correspondence Office [id number]#1 .00CD:127 Normal [facility] Interdisciplinary Note - Galo e Manageron 05-28-2023 Interdisciplinary Note - Automotive Designer Normal [facility] Comment on above: Result Comment: Elec tronically Signed By: Rayne Carpenter\.br\Date and Time Signed: 05/28/23 12:00 EDT IntraOperative Documentson 0 05-28-2023 IntraOperative Documents [id number]# 1.00CD:127 Normal [facility] Laboratory - Microbiology an d Antimicrobial susceptibilityOrdered By: Nata Prieto on 05-28-2023 Bacteria identified Cx Nom (U) 25,000 cfu/ml Anastacia albicans Presumptive isolated. [facility] Main OR Intraoperative Recor don 05-28-2023 Main OR Intraoperative Record Normal [facility] Progress Note-Physicianon Progress Note-Physician Normal [facility] Comment on above: Result Comment: Elec tronically Signed By: ISHAN CHISHOLM, Felice\.br\Date and Time Signed: 05/28/23 09:20 EDT UA With Cult Reflexon 2022 UA Spec Desc Catheter Normal [facility] Comment on above: Order Comment: Urina ry Catheter Insertion triggered Urinalysis With Culture Reflex order by discern. Performed By: #### 1 [id number], 7722039 ####[facility] [address] [place] [address] Bacteria LM Ql (Urine sed) 2+ /HPF Abnormal Trace [facility] Comment on above: Order Comment: Urina ry Catheter Insertion triggered Urinalysis With Culture Reflex order by discern. Performed By: #### 1 9723373, 8088443 ####[address] [address] Bilirubin Ql (U) Negative Normal Negative [facility] Comment on above: Order Comment: Urina ry Catheter Insertion triggered Urinalysis With Culture Reflex order by discern. Performed By: #### 1 6491690, 2571310 ####[address] [address] Clarity (U) SL CLOUDY Abnormal Clear [facility] Comment on above: Order Comment: Urina ry Catheter Insertion triggered Urinalysis With Culture Reflex order by discern. Performed By: #### 1 5529965, 8186172 ####[address] [address] Color (U) YELLOW Normal Yellow [facility] Comment on above: Order Comment: Urina ry Catheter Insertion triggered Urinalysis With Culture Reflex order by discern. Performed By: #### 1 8331966, 0011929 ####[address] [address] Crystals LM Ql (Urine sed) Present Normal [facility] Comment on above: Order Comment: Urina ry Catheter Insertion triggered Urinalysis With Culture Reflex order by discern. Performed By: #### 1 1147229, 5640943 ####[address] [address] Epithelial cells.squamous LM.HPF (Urine sed) [#/Area] 0-2 Normal 0-2 [facility] Comment on above: Order Comment: Urina ry Catheter Insertion triggered Urinalysis With Culture Reflex order by discern. Performed By: #### 1 4626950, 9168332 ####[address] [place] [address] Glucose Test strip (U) [Mass/Vol] Negative Normal Negative [facility] Comment on above: Order Comment: Urina ry Catheter Insertion triggered Urinalysis With Culture Reflex order by discern. Performed By: #### 1 9018479, 7226986 ####[facility] [address] [place] [address] Hemoglobin Ql (U) 3+ Abnormal Negative [facility] Comment on above: Order Comment: Urina ry Catheter Insertion triggered Urinalysis With Culture Reflex order by discern. Performed By: #### 1 6313094, 9723222 ####[address] [address] Ketones (U) [Mass/Vol] Negative Normal Negative [facility] Comment on above: Order Comment: Urina ry Catheter Insertion triggered Urinalysis With Culture Reflex order by discern. Performed By: #### 1 7129716, 0932982 ####[address] [address] Bucklin.plasma/Lithi um.RBC (Bld) [Mass ratio] 0-3 Normal 0-3 [facility] Comment on above: Order Comment: Urina ry Catheter Insertion triggered Urinalysis With Culture Reflex order by discern. Performed By: #### 1 0627637, 1953395 ####[address] [address] Nitrite Ql (U) Negative Normal Negative [facility] Comment on above: Order Comment: Urina ry Catheter Insertion triggered Urinalysis With Culture Reflex order by discern. Performed By: #### 1 6071530, 0741883 ####[address] [address] pH (U) 5.5 [pH] Invalid Interpretation Code 5.0-9.0 [facility] Comment on above: Order Comment: Urina ry Catheter Insertion triggered Urinalysis With Culture Reflex order by discern. Performed By: #### 1 3553525, 8478238 ####[address] [address] Protein (U) [Mass/Vol] 1+ Abnormal Negative [facility] Comment on above: Order Comment: Urina ry Catheter Insertion triggered Urinalysis With Culture Reflex order by discern. Performed By: #### 1 5883840, 4123682 ####[place] [address] Specific gravity (U) [Rel density] 1.015 Invalid Interpretation Code 1.005-1.030 [facility] Comment on above: Order Comment: Urina ry Catheter Insertion triggered Urinalysis With Culture Reflex order by discern. Performed By: #### 1 9602546, 9438560 ####[place] [address] Urobilinogen Qn (U) 0.2 {Isis'U}/dL Normal 0.0-1.0 [facility] Comment on above: Order Comment: Urina ry Catheter Insertion triggered Urinalysis With Culture Reflex order by discern. Performed By: #### 1 3367847, 9859560 ####[place] [address] WBC Auto Ql (U) 2+ Abnormal Negative [facility] Comment on above: Order Comment: Urina ry Catheter Insertion triggered Urinalysis With Culture Reflex order by discern. Performed By: #### 1 9848460, 9060052 ####[place] [address] WBC LM.HPF (Urine sed) [#/Area] /[HPF] Abnormal 0-5 [facility] Comment on above: Order Comment: Urina ry Catheter Insertion triggered Urinalysis With Culture Reflex order by discern. Performed By: #### 1 8668216, 3794895 ####[place] [address]957 Yeast LM Ql (Urine sed) 3+ Normal [facility] Comment on above: Order Comment: Urina ry Catheter Insertion triggered Urinalysis With Culture Reflex order by discern. Performed By: #### 1 0723381, 7645798 ####[place] [address] URINALYSISOrdered By: Diony Benitez on 05-28-2023 Bacteria [...] PM) Normal Negative [facility] UA Auto SS [place].plasma/Lithi um.RBC (Bld) [Mass ratio] 0-3 /HPF Normal [...] [facility] UA Auto SS Urobilinogen Qn (U) 0.8743158 {Isis'U}/dL Normal 0.0 - 1.0 EU/dL [facility] UA Auto SS WBC Auto Ql (U) 2+ *ABN* (05/28/23 5:15 PM) Invalid Interpretation Code Negative [facility] UA Auto SS WBC LM.HPF (Urine sed) [#/Area] /[HPF] Invalid Interpretation Code 0-5/HPF [facility] UA Auto SS Yeast LM Ql (Urine sed) 3+ (05/28/23 5:15 PM) Normal [facility] UA Auto SS eGFRon 05-28-2023 GFR/1.73 sq M.predicted among non-blacks MDRD (S/P/Bld) [Vol rate/Area] 26 mL/min/1.73 m2 Low >=59 [facility] Comment on above: Order Comment: Order added by Discern Expert. 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 Kidney failure is indicated at less than 15 mL/min/1.73m2. Performed By: #### 2 711108, 54106897, 5545187, 4168219 ####[facility] [address] [place] [address] Auto Diffon 05-27-2023 Basophils/100 WBC (Bld) 0.3 % Normal 0.0-2.0 [facility] Comment on above: Order Comment: Order Added by Discern Expert. Performed By: #### 2 918082, 6595783, 26340448, 3386738 ####[facility] [address] [place] [address] Basophils/Leukocytes Auto (Bld) [Pure # fraction] 0.1 E9/L Normal 0.0-0.2 [facility] Comment on above: Order Comment: Order Added by Discern Expert. Performed By: #### 2 621009, 6705902, 58521831, 0860510 ####[facility] [address] [place] [address] Eosinophils/100 WBC (Bld) 0.1 % Normal 0.0-8.0 [facility] Comment on above: Order Comment: Order Added by Discern Expert. Performed By: #### 2 254675, 9567495, 30676578, 3286384 ####[facility] [address] [place] [address] Eosinophils/Leukocyt es Auto (Bld) [Pure # fraction] 0.0 E9/L Normal 0.0-0.5 [facility] Comment on above: Order Comment: Order Added by Discern Expert. Performed By: #### 2 884127, 8015365, 57807335, 3749469 ####[place] [address] [place] [address] Lymphocytes/100 WBC (Bld) 4.0 % Low 14.0-50.0 [facility] Comment on above: Order Comment: Order Added by Discern Expert. Performed By: #### 2 215259, 8438882, 89503550, 6082708 ####[address] [address] Lymphocytes/Leukocyt es Auto (Bld) [Pure # fraction] 0.7 E9/L Low 1.0-4.0 [facility] Comment on above: Order Comment: Order Added by Discern Expert. Performed By: #### 2 415380, 6053646, 58892457, 1508922 ####[place] [address] [place] [address] Monocytes/100 WBC (Bld) 4.8 % Normal 4.0-14.0 [facility] Comment on above: Order Comment: Order Added by Discern Expert. Performed By: #### 2 878657, 6974485, 28718479, 0067853 ####[address] [address] Monocytes/Leukocytes Auto (Bld) [Pure # fraction] 0.8 E9/L Normal 0.2-1.0 [facility] Comment on above: Order Comment: Order Added by Discern Expert. Performed By: #### 2 691763, 7906232, 26813567, 8830355 ####[place] [address] [place] [address] Neutrophils/100 WBC (Bld) 90.8 % High 36.0-75.0 [facility] Comment on above: Order Comment: Order Added by Discern Expert. Performed By: #### 2 980362, 1314043, 10623488, 7440608 ####[facility] [address] [place] [address] Neutrophils/Leukocyt es Auto (Bld) [Pure # fraction] 15.7 E9/L High 2.0-7.5 [facility] Comment on above: Order Comment: Order Added by Discern Expert. Performed By: #### 2 867974, 4026038, 15265987, 6621602 ####[facility] [address] [place] [address] BMPon 05-27-2023 Anion gap [Moles/Vol] 10 mmol/L Normal 6-16 [facility] Comment on above: Performed By: #### 2 421437, 1585698, 79368924, 3384696 ####[place] [address] [place] [address] Calcium [Mass/Vol] 8.0 mg/dL Low 8.9-11.1 [facility] Comment on above: Performed By: #### 2 152938, 2020582, 97880706, 8796248 ####[place] [address] [place] [address] Chloride [Moles/Vol] 112 mmol/L High 101-111 [facility] Comment on above: Performed By: #### 2 349298, 6860069, 78370065, 3484494 ####[place] [address] [place] [address] CO2 [Moles/Vol] 22 mmol/L Normal 21-31 [facility] Comment on above: Performed By: #### 2 802500, 6247503, 16301059, 8899343 ####[facility] [address] [place] [address] Creatinine [Mass/Vol] 1.9 mg/dL High 0.5-1.3 [facility] Comment on above: Performed By: #### 2 463596, 7539634, 79901597, 0396445 ####[facility] [address] [place] [address] Glucose [Mass/Vol] 342 mg/dL High 55-199 [facility] Comment on above: Result Comment: If t his glucose result represents a fasting glucose, interpretation should refer to the following reference range: 55-99 mg/dL Performed By: #### 2 671167, 1229731, 13113463, 3334837 ####[facility] [address] [place] [address] Potassium [Moles/Vol] 4.3 mmol/L Normal 3.5-5.3 [facility] Comment on above: Performed By: #### 2 907082, 9555975, 67133754, 1969130 ####[facility] [address] [place] [address] Sodium [Moles/Vol] 140 mmol/L Normal 135-145 [facility] Comment on above: Performed By: #### 2 358387, 9507548, 38443397, 2365209 ####[facility] [address] [place] [address] Urea nitrogen [Mass/Vol] 22 mg/dL High 5-21 [facility] Comment on above: Performed By: #### 2 219450, 4517899, 40316516, 6926408 ####[facility] [address] [place] [address] Urea nitrogen/Creatinine [Mass ratio] 12 No Units Normal 10-20 [facility] Comment on above: Performed By: #### 2 919473, 2663651, 82557960, 5065823 ####[facility] [address] [place] [address] CBC w/ Auto Diffon 3 Erythrocyte distribution width (RBC) [Ratio] 13.6 % Normal 10.9-14.2 [facility] Comment on above: Performed By: #### 2 227240, 9545780, 91059633, 1953960 ####[facility] [address] [place] [address] Hematocrit (Bld) [Volume fraction] 38.9 % Normal 34.0-46.0 [facility] Comment on above: Performed By: #### 2 583983, 0147630, 47643156, 9576292 ####[address] [address] Hemoglobin (Bld) [Mass/Vol] 13.0 g/dL Normal 12.0-16.0 [facility] Comment on above: Performed By: #### 2 651760, 9478679, 83833814, 2998903 ####[address] [address] MCH (RBC) [Entitic mass] 30.5 pg Normal 27.0-34.0 [facility] Comment on above: Performed By: #### 2 175373, 6255803, 34877502, 9833562 ####[address] [address] MCHC (RBC) [Mass/Vol] 33.4 g/dL Normal 31.4-36.0 [facility] Comment on above: Performed By: #### 2 176210, 8817298, 88378943, 9444030 ####[address] [address] MCV (RBC) [Entitic vol] 91.5 fL Normal 80.0-100.0 [facility] Comment on above: Performed By: #### 2 474722, 4510525, 43858101, 5554651 ####[address] [address] Platelet mean volume (Bld) [Entitic vol] 7.5 fL Normal 6.4-10.8 [facility] Comment on above: Performed By: #### 2 492408, 8975794, 80388807, 7658467 ####[address] [address] Platelets (Bld) [#/Vol] 181.0 E9/L Normal 150.0-500.0 [facility] Comment on above: Performed By: #### 2 549853, 3506482, 62094026, 9412294 ####[facility] [address] [place] [address] RBC (Bld) [#/Vol] 4.2 E12/L Low 4.3-5.9 [facility] Comment on above: Performed By: #### 2 653025, 5142310, 94893354, 4649813 ####[facility] [address] [place] [address] WBC corrected for nucl RBC Auto (Bld) [#/Vol] 17.2 E9/L High 4.0-11.0 [facility] Comment on above: Result Comment: Slid e reviewed by BR. Performed By: #### 2 960082, 7902558, 11569931, 3234406 ####[facility] [address] [place] [address] CT Abdomen/Pelvis w/o Contra ston 05-27-2023 CT Abdomen/Pelvis w/o Contrast Normal [facility] Capillary Glucose POCon 05-01 Glucose [Mass/Vol] 321 mg/dL High 55-99 [facility] Comment on above: Result Comment: [place] ANDRES Performed By: #### 2 68212898 ####[facility] [address] [place] [address] Glucose [Mass/Vol] 353 mg/dL High 55-99 [facility] Comment on above: Result Comment: Sheryl minda Meter Performed By: #### 2 75396001 ####[facility] [address] [place] [address] Glucose [Mass/Vol] 378 mg/dL High 55-99 [facility] Comment on above: Result Comment: [place] ANDRES Performed By: #### 2 15414630 ####[facility] [address] [place] [address] Glucose [Mass/Vol] 323 mg/dL High 55-99 [facility] Comment on above: Performed By: #### 2 78851379 ####[facility] [address] [place] [address] Glucose [Mass/Vol] 320 mg/dL High 55-99 [facility] Comment on above: Performed By: #### 2 32399910 ####[facility] [address] [place] [address] Consent for Procedure/Surger yon 05-27-2023 Consent for Procedure/Surgery [id number]#1 .00CD:127 Normal [facility] Consultation Noteon 05-27-20 Consultation Note Normal [facility] Comment on above: Result Comment: Elec tronically Signed By: Orestes JACQUES MD\.br\Date and Time Signed: 05/27/23 08:09 EDT ED Note-Physicianon 05-27-20 ED Note-Physician Normal [facility] Comment on above: Result Comment: Elec tronically Signed By: Blaire Myers DO\.br\Date and Time Signed: 05/27/23 00:15 EDT HEMATOLOGYOrdered By: SYSTEM SYSTEM on 05-27-2023 Basophils/100 WBC (Bld) 0.3 % Normal 0.0 - 2.0 % [facility] HemeAutoSS Basophils/Leukocytes Auto (Bld) [Pure # fraction] 0.1 E9/L Normal 0.0 - 0.2 E9/L [facility]eAuto[facility] Eosinophils/100 WBC (Bld) 0.1 % Normal 0.0 - 8.0 % [facility]eAuto[facility] Eosinophils/Leukocyt es Auto (Bld) [Pure # fraction] 0.0 E9/L Normal 0.0 - 0.5 E9/L [facility] Lymphocytes/100 WBC (Bld) 4.0 % Low 14.0 - 50.0 % [facility]eAuto[facility] Lymphocytes/Leukocyt es Auto (Bld) [Pure # fraction] 0.7 E9/L Low 1.0 - 4.0 E9/L [facility] Monocytes/100 WBC (Bld) 4.8 % Normal 4.0 - 14.0 % [facility] Monocytes/Leukocytes Auto (Bld) [Pure # fraction] 0.8 E9/L Normal 0.2 - 1.0 E9/L [facility] Neutrophils/100 WBC (Bld) 90.8 % High 36.0 - 75.0 % [facility]eAuto[facility] Neutrophils/Leukocyt es Auto (Bld) [Pure # fraction] 15.7 E9/L High 2.0 - 7.5 E9/L [facility] HEMATOLOGYOrdered By: Niranjan Dawkins on 05-27-2023 Erythrocyte distribution width (RBC) [Ratio] 13.6 % Normal 10.9 - 14.2 % [facility] Hematocrit (Bld) [Volume fraction] 38.9 % Normal 34.0 - 46.0 % [facility] Hemoglobin (Bld) [Mass/Vol] 13.0 g/dL Normal 12.0 - 16.0 gm/dL [facility] MCH (RBC) [Entitic mass] 30.5 pg Normal 27.0 - 34.0 pg [facility] MCHC (RBC) [Mass/Vol] 33.4 g/dL Normal 31.4 - 36.0 gm/dL [facility] MCV (RBC) [Entitic vol] 91.5 fL Normal 80.0 - 100.0 fL [facility] Platelet mean volume (Bld) [Entitic vol] 7.5 fL Normal 6.4 - 10.8 fL [facility]eAuto[facility] Platelets (Bld) [#/Vol] 181.0 E9/L Normal 150.0 - 500.0 E9/L [facility] RBC (Bld) [#/Vol] 4.2 E12/L Low 4.3 - 5.9 E12/L [facility] HemeAutoSS WBC corrected for nucl RBC Auto (Bld) [#/Vol] 17.2 E9/L High 4.0 - 11.0 E9/L [facility] Comment on above: Result Comment: Slid e reviewed by BR. Main OR PACU I Recordon 05-01 Main OR PACU I Record Normal [facility] Monitor Recordon 05-27-2023 Monitor Record [id number]# 1.00CD:127 Normal [facility] Monitor Record [id number]# 1.00CD:127 Normal [facility] Monitor Record [id number]# 1.00CD:127 Normal [facility] No Panel InformationOrdered By: Ramona Christie on 05-27-2023 Blood Culture Charcoal Anastacia albicans In 1 of 2 blood culture bottles drawn. Isolated from aerobic bottle Preliminary gram stain result of yeast Result called to Dr. Marx by [facility] and results read back for confirmation on 05/29/2023 12:23. [facility] No Panel InformationOrdered By: Nata Prieto on 05-27-2023 Blood Culture Charcoal Anastacia albicans isolated. In 1 of 1 blood culture bottles drawn. Isolated from pediatric bottle Preliminary gram stain result of yeast Result called to Dr. Marx by [facility] and results read back for confirmation on 05/29/2023 12:22:06 [facility] Operative Reporton Operative Report Normal [facility] Comment on above: Result Comment: Elec tronically Signed By: GEORGIE CHISHOLM, Orestes Muñiz\.br\Date and Time Signed: 05/27/23 08:13 EDT eGFRon 05-27-2023 GFR/1.73 sq M.predicted among non-blacks MDRD (S/P/Bld) [Vol rate/Area] 28 mL/min/1.73 m2 Low >=59 [facility] Comment on above: Order Comment: Order added by Discern Expert. 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 Kidney failure is indicated at less than 15 mL/min/1.73m2. Performed By: #### 2 194214, 9537937, 70712126, 2568408 ####[facility] [address] [place] [address] Auto Diffon 05-26-2023 Basophils/100 WBC (Bld) 0.1 % Normal 0.0-2.0 [facility] Comment on above: Order Comment: Order Added by Discern Expert. Performed By: #### 2 217003, 73587885, 4824137, 0710119, 8931487, 1053291 ####[address] [address] Basophils/Leukocytes Auto (Bld) [Pure # fraction] 0.0 E9/L Normal 0.0-0.2 [facility] Comment on above: Order Comment: Order Added by Discern Expert. Performed By: #### 2 341417, 37195217, 8143377, 0301502, 8376239, 7682182 ####[address] [address] Eosinophils/100 WBC (Bld) 0.0 % Normal 0.0-8.0 [facility] Comment on above: Order Comment: Order Added by Discern Expert. Performed By: #### 2 993739, 79527953, 6561172, 2756282, 2562557, 0844178 ####[address] [address] Eosinophils/Leukocyt es Auto (Bld) [Pure # fraction] 0.0 E9/L Normal 0.0-0.5 [facility] Comment on above: Order Comment: Order Added by Discern Expert. Performed By: #### 2 781926, 35580636, 4830253, 0774795, 0008678, 2919469 ####[address] [address] Lymphocytes/100 WBC (Bld) 3.9 % Low 14.0-50.0 [facility] Comment on above: Order Comment: Order Added by Discern Expert. Performed By: #### 2 833818, 40028860, 4207337, 8636025, 9201917, 7926654 ####[address] [address] Lymphocytes/Leukocyt es Auto (Bld) [Pure # fraction] 0.7 E9/L Low 1.0-4.0 [facility] Comment on above: Order Comment: Order Added by Discern Expert. Performed By: #### 2 752239, 60701908, 6384600, 6979427, 9934210, 2331656 ####[address] [place] [address] Monocytes/100 WBC (Bld) 6.6 % Normal 4.0-14.0 [facility] Comment on above: Order Comment: Order Added by Discern Expert. Performed By: #### 2 316838, 26846270, 5609326, 1251954, 1122436, 6194549 ####[facility] [address] [place] [address] Monocytes/Leukocytes Auto (Bld) [Pure # fraction] 1.2 E9/L High 0.2-1.0 [facility] Comment on above: Order Comment: Order Added by Christen Expert. Performed By: #### 2 880905, 21461661, 7260249, 9700572, 2045867, 4973153 ####[address] [address] Neutrophils/100 WBC (Bld) 89.4 % High 36.0-75.0 [facility] Comment on above: Order Comment: Order Added by Discern Expert. Performed By: #### 2 189146, 76297937, 1477949, 8580486, 5399197, 2242556 ####[facility] [address] [place] [address] Neutrophils/Leukocyt es Auto (Bld) [Pure # fraction] 16.6 E9/L High 2.0-7.5 [facility] Comment on above: Order Comment: Order Added by Christen Expert. Performed By: #### 2 073862, 75772863, 4826094, 3085556, 9387196, 0427171 ####[facility] [address] [place] [address] BMPon 05-26-2023 Creatinine [Mass/Vol] 1.9 mg/dL High 0.5-1.3 [facility] Comment on above: Performed By: #### 2 409040, 13552892, 0753686, 4410093, 2016406, 4892607 ####[facility] [address] [place] [address] Urea nitrogen [Mass/Vol] 19 mg/dL Normal 5-21 [facility] Comment on above: Performed By: #### 2 532458, 15851379, 6686837, 2422223, 3530063, 8564083 ####[facility] [address] [place] [address] Urea nitrogen/Creatinine [Mass ratio] 10 No Units Normal 10-20 [facility] Comment on above: Performed By: #### 2 892838, 11854823, 9414103, 3207773, 6842865, 2095518 ####[facility] [address] [place] [address] Anion gap [Moles/Vol] 13 mmol/L Normal 6-16 [facility] Comment on above: Performed By: #### 2 581170, 83273389, 7039981, 8137866, 9751962, 2937934 ####[facility] [address] [place] [address] Calcium [Mass/Vol] 8.9 mg/dL Normal 8.9-11.1 [facility] Comment on above: Performed By: #### 2 143893, 01972041, 0413449, 2539544, 1391946, 3732995 ####[facility] [address] [place] [address] Chloride [Moles/Vol] 106 mmol/L Normal 101-111 [facility] Comment on above: Performed By: #### 2 446363, 85606872, 3276536, 8546869, 7358499, 0134502 ####[facility] [address] [place] [address] CO2 [Moles/Vol] 25 mmol/L Normal 21-31 [facility] Comment on above: Performed By: #### 2 004606, 06443851, 0334363, 9436025, 8389422, 2694157 ####[facility] [address] [place] [address] Glucose [Mass/Vol] 342 mg/dL High 55-199 [facility] Comment on above: Result Comment: If t his glucose result represents a fasting glucose, interpretation should refer to the following reference range: 55-99 mg/dL Performed By: #### 2 244394, 18557590, 0703043, 7503788, 2446727, 0316707 ####[facility] [address] [place] [address] Potassium [Moles/Vol] 3.9 mmol/L Normal 3.5-5.3 [facility] Comment on above: Performed By: #### 2 024002, 73610449, 4167577, 4032907, 6702100, 2787135 ####[address] [place] [address] Sodium [Moles/Vol] 140 mmol/L Normal 135-145 [facility] Comment on above: Performed By: #### 2 568297, 36654404, 1990873, 7517196, 4833961, 8273281 ####[address] [address] CBC w/ Auto Diffon 3 Erythrocyte distribution width (RBC) [Ratio] 13.6 % Normal 10.9-14.2 [facility] Comment on above: Performed By: #### 2 066615, 66248575, 4816201, 8995628, 6847238, 4385677 ####[address] [place] [address] Hematocrit (Bld) [Volume fraction] 45.2 % Normal 34.0-46.0 [facility] Comment on above: Performed By: #### 2 463302, 17237557, 2651079, 4334324, 1009151, 6826062 ####[address] [place] [address] Hemoglobin (Bld) [Mass/Vol] 15.2 g/dL Normal 12.0-16.0 [facility] Comment on above: Performed By: #### 2 287766, 39925007, 8143041, 3550855, 7997114, 5949723 ####[address] [place] [address] MCH (RBC) [Entitic mass] 30.5 pg Normal 27.0-34.0 [facility] Comment on above: Performed By: #### 2 368076, 89946627, 1659778, 3528611, 3736118, 1803512 ####[address] [address] MCHC (RBC) [Mass/Vol] 33.7 g/dL Normal 31.4-36.0 [facility] Comment on above: Performed By: #### 2 340699, 39903612, 5534332, 6232089, 1408905, 6611097 ####[place] [address] MCV (RBC) [Entitic vol] 90.3 fL Normal 80.0-100.0 [facility] Comment on above: Performed By: #### 2 926717, 57734926, 5264860, 0971982, 7164581, 9051542 ####[address] [address] Platelet mean volume (Bld) [Entitic vol] 7.1 fL Normal 6.4-10.8 [facility] Comment on above: Performed By: #### 2 250671, 60441072, 5943380, 7909106, 5073124, 1256497 ####[place] [address] Platelets (Bld) [#/Vol] 256.0 E9/L Normal 150.0-500.0 [facility] Comment on above: Performed By: #### 2 398288, 39710930, 1845225, 2052504, 3907907, 9962765 ####[address] [address] RBC (Bld) [#/Vol] 5.0 E12/L Normal 4.3-5.9 [facility] Comment on above: Performed By: #### 2 655972, 16388578, 4105493, 0926190, 9171899, 3534986 ####[facility] [address] [place] [address] WBC corrected for nucl RBC Auto (Bld) [#/Vol] 18.6 E9/L High 4.0-11.0 [facility] Comment on above: Result Comment: Slid e reviewed by MA Performed By: #### 2 259397, 31539751, 0966321, 7508863, 1399667, 6657457 ####[facility] [address] [place] [address] CHEMISTRYOrdered By: SYSTEM SYSTEM on 05-26-2023 Troponin I.cardiac [Mass/Vol] 20.40 pg/mL Normal 10.10 - 27.10 pg/mL [facility] Comment on above: Interpretive Data: T he 95% CI (Confidence Interval) PPV (Positive Predictive Value) for myocardial infarction in females is 38 pg/mL, in males 51 pg/mL. The results should be used in conjunction with clinical conditions of myocardial infarction. (Access High Sensitivity Troponin I Instructions For Use, Jairo Elsy, March 2018) Albumin [Mass/Vol] 3.3 g/dL Normal 3.3 - 5.0 gm/dL F [facility] Albumin/Globulin [Mass ratio] 0.8 {ratio} Low 1.1 - 2.2 [facility] ALP [Catalytic activity/Vol] 72 [iU]/d Normal 21 - 98 Int._Unit/L [facility] ALT No additional P-5'-P [Catalytic activity/Vol] 16 [iU]/d Normal 6 - 46 Int._Unit/L [facility] AST [Catalytic activity/Vol] 16 [iU]/d Normal 5 - 43 Int._Unit/L [facility] Bilirubin [Mass/Vol] 1.3 mg/dL High 0.0 - 1.1 mg/dL [facility] Bilirubin.direct [Mass/Vol] 0.2 mg/dL Normal 0.1 - 0.4 mg/dL [facility] Bilirubin.indirect [Mass or moles/Vol] 1.1 mg/dL High 0.1 - 0.9 mg/dL [facility] Globulin (S) [Mass/Vol] 4.1 g/dL High 1.4 - 4.0 gm/dL [facility] Lipase [Catalytic activity/Vol] 33 U/L Normal 13 - 58 unit/L [facility] Protein [Mass/Vol] 7.4 g/dL Normal 6.0 - 7.8 gm/dL [facility] Consent for Treatmenton 05-01 Consent for Treatment [id number]#1 .00CD:127 Normal [facility] DAPTOMYCIN:SUSC:PT:ISOLATE:O RDQN:MICOrdered By: Nata Prieto on 05-26-2023 DAPTOmycin LAUREN [Susc] 20,000 cfu/ml Staphylococcus haemolyticus 2,000 cfu/ml Mixed skin contaminants [facility] DAPTOmycin LAUREN [Susc]Ordered By: Ntaa Prieto on 05-26-2023 Staphylococcus haemolyticus Staphylococcus haemolyticus [facility] Hep Func Panelon 05-26-2023 Albumin [Mass/Vol] 3.3 g/dL Normal 3.3-5.0 [facility] Comment on above: Performed By: #### 2 780786, 16912295, 7831159, 7402104, 9286190, 3602177 ####[facility] [address] [place] [address] Albumin/Globulin (S) [Mass conc ratio] 0.8 Low 1.1-2.2 [facility] Comment on above: Performed By: #### 2 622271, 73857143, 6283507, 5732430, 2123224, 3851593 ####[facility] [address] [place] [address] ALP [Catalytic activity/Vol] 72 Int._Unit/L Normal 21-98 [facility] Comment on above: Performed By: #### 2 699389, 16811854, 0263536, 0439421, 9211451, 8459466 ####[facility] [address] [place] [address] ALT No additional P-5'-P [Catalytic activity/Vol] 16 Int._Unit/L Normal 6-46 [facility] Comment on above: Performed By: #### 2 433838, 76460381, 0593510, 2110254, 4038548, 8896347 ####[facility] [address] [place] [address] AST [Catalytic activity/Vol] 16 Int._Unit/L Normal 5-43 [facility] Comment on above: Performed By: #### 2 375225, 25662279, 7193628, 5561502, 4829274, 5575812 ####[facility] [address] [place] [address] Bilirubin [Mass/Vol] 1.3 mg/dL High 0.0-1.1 [facility] Comment on above: Performed By: #### 2 532281, 34139633, 2908423, 7967539, 3357705, 5205519 ####[place] [address] Bilirubin.direct [Mass/Vol] 0.2 mg/dL Normal 0.1-0.4 [facility] Comment on above: Performed By: #### 2 720146, 10638044, 3445828, 2940248, 0730565, 3288865 ####[facility] [address] [place] [address] Bilirubin.indirect [Mass or moles/Vol] 1.1 mg/dL High 0.1-0.9 [facility] Comment on above: Performed By: #### 2 433108, 31148036, 9917370, 5889896, 2980389, 8733360 ####[facility] [address] [place] [address] Globulin (S) [Mass/Vol] 4.1 g/dL High 1.4-4.0 [facility] Comment on above: Performed By: #### 2 146843, 68615767, 0889727, 0223200, 5147717, 9467814 ####[facility] [address] [place] [address] Protein [Mass/Vol] 7.4 g/dL Normal 6.0-7.8 [facility] Comment on above: Performed By: #### 2 135548, 92467919, 2844218, 8699800, 9545807, 5548029 ####[facility] [address] [place] [address] Lipase Levelon 05-26-2023 Lipase [Catalytic activity/Vol] 33 U/L Normal 13-58 [facility] Comment on above: Performed By: #### 2 280564, 82628446, 2925190, 3886246, 0355241, 5335058 ####[facility] [address] [place] [address] RAD - Preliminary Cat Scan R eporton 05-26-2023 RAD - Preliminary Cat Scan Report [id number]# 1.00CD:127 Normal [facility] Troponin 0 Hr.on 05-26-2023 Troponin I.cardiac [Mass/Vol] 20.40 pg/mL Normal 10.10-27.10 [facility] Comment on above: Result Comment: The 95% CI (Confidence Interval) PPV (Positive Predictive Value) for myocardial infarction in females is 38 pg/mL, in males 51 pg/mL. The results should be used in conjunction with clinical conditions of myocardial infarction.(Access High Sensitivity Troponin I Instructions For Use, Jairo Elsy, March 2018) Performed By: #### 1 9025870 ####[facility] [address] [place] [address] UA With Cult Reflexon 2022 Bacteria LM Ql (Urine sed) 1+ /HPF Abnormal Trace [facility] Comment on above: Performed By: #### 1 1206017, 1083888 ####[facility] [address] [place] [address] Bilirubin Ql (U) Negative Normal Negative [facility] Comment on above: Performed By: #### 1 4487102, 1451342 ####[facility] [address] [place] [address] Clarity (U) CLOUDY Abnormal Clear [facility] Comment on above: Performed By: #### 1 0605819, 4498127 ####[facility] [address] [place] [address] Color (U) YELLOW Normal Yellow [facility] Comment on above: Performed By: #### 1 8728978, 0139621 ####[facility] [address] [place] [address] Epithelial cells.squamous LM.HPF (Urine sed) [#/Area] /[HPF] Normal 0-2 [facility] Comment on above: Performed By: #### 1 7556975, 1401451 ####[address] [address] Glucose Test strip (U) [Mass/Vol] 3+ Abnormal Negative [facility] Comment on above: Performed By: #### 1 4462189, 9817769 ####[address] [address] Hemoglobin Ql (U) 2+ Abnormal Negative [facility] Comment on above: Performed By: #### 1 7779075, 5950998 ####[facility] [address] [place] [address] Ketones (U) [Mass/Vol] 1+ Abnormal Negative [facility] Comment on above: Performed By: #### 1 9922300, 4991440 ####[facility] [address] [place] [address] Bucklin.plasma/Lithi um.RBC (Bld) [Mass ratio] 4-20 Normal 0-3 [facility] Comment on above: Performed By: #### 1 6414436, 6201250 ####[facility] [address] [place] [address] Nitrite Ql (U) Positive Abnormal Negative [facility] Comment on above: Performed By: #### 1 8306389, 8969297 ####[address] [address] pH (U) 5.5 [pH] Invalid Interpretation Code 5.0-9.0 [facility] Comment on above: Performed By: #### 1 9022921, 4349751 ####[facility] [address] [place] [address] Protein (U) [Mass/Vol] 1+ Abnormal Negative [facility] Comment on above: Performed By: #### 1 6459418, 7991232 ####[place] [address] Specific gravity (U) [Rel density] 1.020 Invalid Interpretation Code 1.005-1.030 [facility] Comment on above: Performed By: #### 1 4694824, 0277335 ####[place] [address] Type of Urine collection method Clean Catch Normal [facility] Comment on above: Performed By: #### 1 1508991, 7267538 ####[place] [address] Urobilinogen Qn (U) 1.0 {Isis'U}/dL Normal 0.0-1.0 [facility] Comment on above: Performed By: #### 1 9853190, 7425405 ####[place] [address] WBC Auto Ql (U) 2+ Abnormal Negative [facility] Comment on above: Performed By: #### 1 5350080, 2608854 ####[place] [address] WBC LM.HPF (Urine sed) [#/Area] /[HPF] Abnormal 0-5 [facility] Comment on above: Performed By: #### 1 7924328, 9510983 ####[place] [address] URINALYSISOrdered By: Ike Lopez on 05-26-2023 Bacteria LM Ql (Urine sed) 1+ /HPF Invalid Interpretation Code Trace/HPF [facility] Auto SS Bilirubin Ql (U) Negative (05/26/23 11:08 PM) Normal Negative [facility] UA Auto SS Clarity (U) Cloudy *ABN* [...] Interpretation Code Negative [facility] UA Auto SS Bucklin.plasma/Lithi um.RBC (Bld) [Mass ratio] 4-20 /HPF Normal [...] [facility] UA Auto SS Urobilinogen Qn (U) 1.0412849 {Isis'U}/dL Normal 0.0 - 1.0 EU/dL [facility] UA Auto SS WBC Auto Ql (U) 2+ *ABN* (05/26/23 11:08 PM) Invalid Interpretation Code Negative [facility] UA Auto SS WBC LM.HPF (Urine sed) [#/Area] /[HPF] Invalid Interpretation Code 0-5/HPF [facility] UA Auto SS eGFRon 05-26-2023 GFR/1.73 sq M.predicted among non-blacks MDRD (S/P/Bld) [Vol rate/Area] 28 mL/min/1.73 m2 Low >=59 [facility] Comment on above: Order Comment: Order added by Discern Expert. 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 Kidney failure is indicated at less than 15 mL/min/1.73m2. Performed By: #### 2 134394, 35726972, 4404632, 0103110, 1635637, 0065181 ####[facility] [address] [place] [address] Consent for Procedure/Surger yon 05-25-2023 Consent for Procedure/Surgery [id number]#1 .00CD:127 Normal [facility] Consent for Treatmenton 05-01 Consent for Treatment [id number]#1 .00CD:127 Normal [facility] IntraOperative Documentson 0 05-25-2023 IntraOperative Documents [id number]# 1.00CD:127 Normal [facility] IntraOperative Documents [id number]#1 .00CD:127 Normal [facility] Main OR Intraoperative Recor don 05-25-2023 Main OR Intraoperative Record Normal [facility] Main OR Preoperative Recordo n 05-25-2023 Main OR Preoperative Record Normal [facility] Operative Reporton Operative Report Normal [facility] Comment on above: Result Comment: Elec tronically Signed By: JAILENE CHISHOLM, Glynn Neff.hector\Date and Time Signed: 05/25/23 09:22 EDT Outpatient Surgery Discharge Instructionon 05-25-2023 Outpatient Surgery Discharge Instruction [id number]#1 .00CD:127 Normal [facility] Patient Educationon 05-25-20 23 Patient Education Normal [facility] Calculus Analysison 05-17-20 23 Color (Stone) [place] Invalid Interpretation Code [facility] Comment on above: Order Comment: Stone calculi from left ureter for analysis Performed By: #### 1 3013994 ####[facility] [address] [place] [address] Composition Comment Invalid Interpretation Code [facility] Comment on above: Order Comment: Stone calculi from left ureter for analysis Result Comment: Perc entage (Represents the % composition) Performed By: #### 1 8464591 ####[address] [address] Disclaimer: Comment Invalid Interpretation Code [facility] Comment on above: Order Comment: Stone calculi from left ureter for analysis Result Comment: This test was developed and its performance characteristicsdetermined by [employer]. It has not been cleared or approvedby the Food and Drug Administration.Performed at: [facility] [employer] [id number] PhD Srini Bell Performed By: #### 1 6642414 ####[facility] [address] [place] [address] Laboratory comment Hu (Report) Comment Invalid Interpretation Code [facility] Comment on above: Order Comment: Stone calculi from left ureter for analysis Result Comment: Nicolas arora questions regarding Calculi [facility] at: [phone]. Performed By: #### 1 8506044 ####[address] [address] Please Note: Comment Invalid Interpretation Code [facility] Comment on above: Order Comment: Stone calculi from left ureter for analysis Result Comment: Calc bernard report will follow via computer, mail or courierdelivery. Performed By: #### 1 3830667 ####[address] [place] [address] Size (Stone) [Entitic vol] 3x2 Invalid Interpretation Code [facility] Comment on above: Order Comment: Stone calculi from left ureter for analysis Result Comment: Mult iple pieces received. Dimensions of the largest piecereported. Performed By: #### 1 5378395 ####[address] [address] Specimen source subject Nom Comment Invalid Interpretation Code [facility] Comment on above: Order Comment: Stone calculi from left ureter for analysis Result Comment: Left Ureter Performed By: #### 1 3022052 ####[facility] [address] [place] [address] Stone Photo Comment Invalid Interpretation Code [facility] Comment on above: Order Comment: Stone calculi from left ureter for analysis Result Comment: Phot ograph will follow under a separate cover Performed By: #### 1 3172827 ####[facility] [address] [place] [address] Urate (Stone) [Mass fraction] 100 % Invalid Interpretation Code [facility] Comment on above: Order Comment: Stone calculi from left ureter for analysis Performed By: #### 1 0596648 ####[facility] [address] [place] [address] Weight (Stone) 40 mg Invalid Interpretation Code [facility] Comment on above: Order Comment: Stone calculi from left ureter for analysis Performed By: #### 1 0681966 ####[facility] [address] [place] [address] Main OR Intraoperative Recor don 05-12-2023 Main OR Intraoperative Record Normal [facility] Auto Diffon 05-11-2023 Basophils/100 WBC (Bld) 0.2 % Normal 0.0-2.0 [facility] Comment on above: Order Comment: Order Added by Discern Expert. Performed By: #### 2 008747, 2097882 ####[facility] [address] [place] [address] Basophils/Leukocytes Auto (Bld) [Pure # fraction] 0.0 E9/L Normal 0.0-0.2 [facility] Comment on above: Order Comment: Order Added by Discern Expert. Performed By: #### 2 424405, 4951625 ####[facility] [address] [place] [address] Eosinophils/100 WBC (Bld) 0.1 % Normal 0.0-8.0 [facility] Comment on above: Order Comment: Order Added by Discern Expert. Performed By: #### 2 149293, 1121868 ####[address] [address] Eosinophils/Leukocyt es Auto (Bld) [Pure # fraction] 0.0 E9/L Normal 0.0-0.5 [facility] Comment on above: Order Comment: Order Added by Discern Expert. Performed By: #### 2 459282, 7790910 ####[address] [address] Lymphocytes/100 WBC (Bld) 10.0 % Low 14.0-50.0 [facility] Comment on above: Order Comment: Order Added by Discern Expert. Performed By: #### 2 143082, 4643282 ####[address] [address] Lymphocytes/Leukocyt es Auto (Bld) [Pure # fraction] 1.0 E9/L Normal 1.0-4.0 [facility] Comment on above: Order Comment: Order Added by Discern Expert. Performed By: #### 2 675310, 9966685 ####[address] [address] Monocytes/100 WBC (Bld) 5.6 % Normal 4.0-14.0 [facility] Comment on above: Order Comment: Order Added by Christen Expert. Performed By: #### 2 900233, 7052277 ####[address] [address] Monocytes/Leukocytes Auto (Bld) [Pure # fraction] 0.6 E9/L Normal 0.2-1.0 [facility] Comment on above: Order Comment: Order Added by Discern Expert. Performed By: #### 2 311212, 1815780 ####[address] [address] Neutrophils/100 WBC (Bld) 84.1 % High 36.0-75.0 [facility] Comment on above: Order Comment: Order Added by Discern Expert. Performed By: #### 2 188354, 3393060 ####[facility] [address] [place] [address] Neutrophils/Leukocyt es Auto (Bld) [Pure # fraction] 8.8 E9/L High 2.0-7.5 [facility] Comment on above: Order Comment: Order Added by Discern Expert. Performed By: #### 2 819899, 0018043 ####[address] [address] C Urineon 05-11-2023 Bacteria identified Cx Nom (U) Normal [facility] Comment on above: Performed By: #### 2 999823, 07112406 ####[address] [address] CBC w/ Auto Diffon Erythrocyte distribution width (RBC) [Ratio] 13.7 % Normal 10.9-14.2 [facility] Comment on above: Performed By: #### 2 185347, 8505173 ####[address] [address] Hematocrit (Bld) [Volume fraction] 37.9 % Normal 34.0-46.0 [facility] Comment on above: Performed By: #### 2 491758, 0438872 ####[address] [address] Hemoglobin (Bld) [Mass/Vol] 13.0 g/dL Normal 12.0-16.0 [facility] Comment on above: Performed By: #### 2 736568, 5485973 ####[address] [address] MCH (RBC) [Entitic mass] 31.8 pg Normal 27.0-34.0 [facility] Comment on above: Performed By: #### 2 446740, 0130961 ####[facility] [address] [place] [address] MCHC (RBC) [Mass/Vol] 34.4 g/dL Normal 31.4-36.0 [facility] Comment on above: Performed By: #### 2 399711, 7808177 ####[facility] [address] [place] [address] MCV (RBC) [Entitic vol] 92.5 fL Normal 80.0-100.0 [facility] Comment on above: Performed By: #### 2 775282, 6181502 ####[address] [address] Platelet mean volume (Bld) [Entitic vol] 8.2 fL Normal 6.4-10.8 [facility] Comment on above: Performed By: #### 2 199585, 6282823 ####[address] [address] Platelets (Bld) [#/Vol] 161.0 E9/L Normal 150.0-500.0 [facility] Comment on above: Performed By: #### 2 874164, 7815752 ####[address] [address] RBC (Bld) [#/Vol] 4.1 E12/L Low 4.3-5.9 [facility] Comment on above: Performed By: #### 2 911653, 1628350 ####[address] [address] WBC corrected for nucl RBC Auto (Bld) [#/Vol] 10.5 E9/L Normal 4.0-11.0 [facility] Comment on above: Performed By: #### 2 195677, 4576926 ####[address] [address] CHEMISTRYOrdered By: Lab ROP User on 05-11-2023 Glucose [Mass/Vol] 226 mg/dL High 55 - 99 mg/dL FT C POC Subsection Comment on above: Result Comment: Modesto vanegas RN/ POC Device SN [id number] Invalid Interpretation Code [facility] POC Subsection POC User ID [id number] Invalid Interpretation Code [facility] POC Subsection POC Username CORNELIA ZAMBRANO Invalid Interpretation Code [facility] POC Subsection Capillary Glucose POCon 04-30 Glucose [Mass/Vol] 226 mg/dL High 55-99 [facility] Comment on above: Result Comment: Modesto vanegas RN/ Performed By: #### 2 [id number] ####[facility] [address] [place] [address] Discharge Instructionson Discharge Instructions [id number]# 1.00CD:127 Normal [facility] Discharge Note-Nursingon Discharge Note-Nursing Normal [address], [address] [place] [address]- \.br\ New Follow Up Appointments after Discharge\.br\ Follow Up with Glynn DENT When: 05/17/2023 01:30 PM EDT\.br\ Where:\.br\ [facility]\.br\ [address]\.br\ [place] [address]-\.br\ Business (1)\.br\ Follow Up with ALBERTINA ARNDT When: 05/17/2023 09:30 AM EDT\.br\ Where:\.br\ [address] [facility]\.br\ [place] [address]-\.br\ Business (1)\.br\ Medications\.br\ What How Much When Why Instructions Next Dose\.br\ Changed cephalexin (Keflex 500 mg Cap) 1 Capsules By Mouth 3 times a day Duration: 5 Days Pickup at [id number] 05-11-23 3 pm\.br\ Unchanged atorvastatin (atorvastatin 40 [...] Tablets By Mouth Every day Pickup at [facility] 05-12-23 9 am\.br\ Pharmacy Information\.br\ [facility]: [address] [place] [id number] [phone]\.br\ [id number]: [address], [place] [id number] [phone]\.br\ Test Results\.br\ CBC \.br\ BMP \.br\ WBC: [...] artery disease\.br\ Glucosuria\.br\ Hyperlipidemia\. 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\.b r\ Obesity due to excess calories\.br\ Urge incontinence\.br \ Urinary tract infection\.br\ Historical - Any problem that you are no longer receiving treatment for.\.br\ Diabetes mellitus\.br\ Hypertension\.br \ Devices Implanted/Remove d This Visit\.br\ Notice: You have devices implanted this visit that may not be MRI compatible.\.br\ Implanted\.br\ CYSTOSCOPY W/ HOMIUM LASER\.br\ Ureter L\.br\ STENT URETERAL 6FR LENGTH 22-32CM [[id number]] 05/09/2023, Unknown - JOSE FRANCISCO: {01}[id number]{17}[id number]{10} [id number]\.br\ Common Emergency Awareness Tips\.br\ IS IT A [...] signed up for this yet, please contact [employer] Information [employer] at [phone] to get signed up today.\.br\ \.br\ Patient Name: BASIA SHAHANA David\.br\ I have received this information and my questions have been answered.\.br\ Patient/Represen tative Name: ____\.br\ Patient/Represen tative Signature: ____\.br\ Relationship to Patient: ____\.br\ Witness Name/Signature: ____\.br\ Date: ____\.br\ [facility] HEMATOLOGYOrdered By: SYSTEM SYSTEM on 05-11-2023 Basophils/100 WBC (Bld) 0.2 % Normal 0.0 - 2.0 % [facility] Basophils/Leukocytes Auto (Bld) [Pure # fraction] 0.0 E9/L Normal 0.0 - 0.2 E9/L [facility] Eosinophils/100 WBC (Bld) 0.1 % Normal 0.0 - 8.0 % [facility] Eosinophils/Leukocyt es Auto (Bld) [Pure # fraction] 0.0 E9/L Normal 0.0 - 0.5 E9/L [facility] Lymphocytes/100 WBC (Bld) 10.0 % Low 14.0 - 50.0 % [facility] Lymphocytes/Leukocyt es Auto (Bld) [Pure # fraction] 1.0 E9/L Normal 1.0 - 4.0 E9/L [facility] Monocytes/100 WBC (Bld) 5.6 % Normal 4.0 - 14.0 % [facility] Monocytes/Leukocytes Auto (Bld) [Pure # fraction] 0.6 E9/L Normal 0.2 - 1.0 E9/L [facility] Neutrophils/100 WBC (Bld) 84.1 % High 36.0 - 75.0 % [facility] Neutrophils/Leukocyt es Auto (Bld) [Pure # fraction] 8.8 E9/L High 2.0 - 7.5 E9/L [facility] HEMATOLOGYOrdered By: Virginia Dillard on 05-11-2023 Erythrocyte distribution width (RBC) [Ratio] 13.7 % Normal 10.9 - 14.2 % [facility] Hematocrit (Bld) [Volume fraction] 37.9 % Normal 34.0 - 46.0 % [facility] Hemoglobin (Bld) [Mass/Vol] 13.0 g/dL Normal 12.0 - 16.0 gm/dL [facility] MCH (RBC) [Entitic mass] 31.8 pg Normal 27.0 - 34.0 pg [facility] MCHC (RBC) [Mass/Vol] 34.4 g/dL Normal 31.4 - 36.0 gm/dL [facility] MCV (RBC) [Entitic vol] 92.5 fL Normal 80.0 - 100.0 fL [facility] Platelet mean volume (Bld) [Entitic vol] 8.2 fL Normal 6.4 - 10.8 fL [facility] Platelets (Bld) [#/Vol] 161.0 E9/L Normal 150.0 - 500.0 E9/L [facility] RBC (Bld) [#/Vol] 4.1 E12/L Low 4.3 - 5.9 E12/L [facility] WBC corrected for nucl RBC Auto (Bld) [#/Vol] 10.5 E9/L Normal 4.0 - 11.0 E9/L [facility] Inpatient Clinical Summaryon 05-11-2023 Inpatient Clinical Summary Normal [facility] Inpatient Patient Summaryon 05-11-2023 Inpatient Patient Summary Normal [facility] Message from Medicareon 04-30 Message from Medicare [id number]# 1.00CD:127 Normal [facility] Monitor Recordon 05-11-2023 Monitor Record [id number]# 1.00CD:127 Normal [facility] Monitor Record [id number]# 1.00CD:127 Normal [facility] Monitor Record [id number]# 1.00CD:127 Normal [facility] Auto Diffon 05-10-2023 Basophils/100 WBC (Bld) 0.1 % Normal 0.0-2.0 [facility] Comment on above: Order Comment: Order Added by Discern Expert. Performed By: #### 2 827736, 4877893, 1351112, 18884016 ####[address] [address] Basophils/Leukocytes Auto (Bld) [Pure # fraction] 0.0 E9/L Normal 0.0-0.2 [facility] Comment on above: Order Comment: Order Added by Discern Expert. Performed By: #### 2 667223, 9737804, 6078896, 84877035 ####[address] [address] Eosinophils/100 WBC (Bld) 0.0 % Normal 0.0-8.0 [facility] Comment on above: Order Comment: Order Added by Discern Expert. Performed By: #### 2 292608, 8508493, 3977641, 22044327 ####[address] [address] Eosinophils/Leukocyt es Auto (Bld) [Pure # fraction] 0.0 E9/L Normal 0.0-0.5 [facility] Comment on above: Order Comment: Order Added by Discern Expert. Performed By: #### 2 027901, 3345686, 2252604, 19714864 ####[address] [address] Lymphocytes/100 WBC (Bld) 6.5 % Low 14.0-50.0 [facility] Comment on above: Order Comment: Order Added by Discern Expert. Performed By: #### 2 223465, 5172144, 7448917, 52586966 ####[facility] [address] [place] [address] Lymphocytes/Leukocyt es Auto (Bld) [Pure # fraction] 1.1 E9/L Normal 1.0-4.0 [facility] Comment on above: Order Comment: Order Added by Discern Expert. Performed By: #### 2 644938, 4185300, 9386684, 19101383 ####[facility] [address] [place] [address] Monocytes/100 WBC (Bld) 4.2 % Normal 4.0-14.0 [facility] Comment on above: Order Comment: Order Added by Christen Expert. Performed By: #### 2 511639, 6361706, 3618456, 00562217 ####[address] [address] Monocytes/Leukocytes Auto (Bld) [Pure # fraction] 0.7 E9/L Normal 0.2-1.0 [facility] Comment on above: Order Comment: Order Added by Christen Expert. Performed By: #### 2 919941, 3434100, 7499093, 93788149 ####[address] [address] Neutrophils/100 WBC (Bld) 89.2 % High 36.0-75.0 [facility] Comment on above: Order Comment: Order Added by Christen Expert. Performed By: #### 2 368147, 8211303, 9669045, 98651680 ####[facility] [address] [place] [address] Neutrophils/Leukocyt es Auto (Bld) [Pure # fraction] 14.7 E9/L High 2.0-7.5 [facility] Comment on above: Order Comment: Order Added by Christen Expert. Performed By: #### 2 561042, 5339887, 8402880, 35826410 ####[facility] [address] [place] [address] BMPon 05-10-2023 Creatinine [Mass/Vol] 1.4 mg/dL High 0.5-1.3 [facility] Comment on above: Performed By: #### 2 003496, 2147422, 3375446, 26385852 ####[facility] [address] [place] [address] Urea nitrogen [Mass/Vol] 30 mg/dL High 5-21 [facility] Comment on above: Performed By: #### 2 995161, 7217583, 3186936, 39722175 ####[facility] [address] [place] [address] Urea nitrogen/Creatinine [Mass ratio] 21 No Units High 10-20 [facility] Comment on above: Performed By: #### 2 561727, 3690450, 8897909, 88806085 ####[facility] [address] [place] [address] Anion gap [Moles/Vol] 12 mmol/L Normal 6-16 [facility] Comment on above: Performed By: #### 2 111649, 4509190, 7320178, 23233538 ####[facility] [address] [place] [address] Calcium [Mass/Vol] 8.3 mg/dL Low 8.9-11.1 [facility] Comment on above: Performed By: #### 2 398629, 3688822, 7989753, 34030147 ####[facility] [address] [place] [address] Chloride [Moles/Vol] 111 mmol/L Normal 101-111 [facility] Comment on above: Performed By: #### 2 883146, 6352967, 7409952, 75645565 ####[facility] [address] [place] [address] CO2 [Moles/Vol] 22 mmol/L Normal 21-31 [facility] Comment on above: Performed By: #### 2 536531, 3383817, 1384085, 65827856 ####[facility] [address] [place] [address] Glucose [Mass/Vol] 256 mg/dL High 55-199 [facility] Comment on above: Result Comment: If t his glucose result represents a fasting glucose, interpretation should refer to the following reference range: 55-99 mg/dL Performed By: #### 2 705999, 8767654, 0389742, 85790535 ####[facility] [address] [place] [address] Potassium [Moles/Vol] 3.7 mmol/L Normal 3.5-5.3 [facility] Comment on above: Performed By: #### 2 717045, 0559053, 2051967, 43929708 ####[facility] [address] [place] [address] Sodium [Moles/Vol] 141 mmol/L Normal 135-145 [facility] Comment on above: Performed By: #### 2 186055, 2754033, 1767227, 33103955 ####[facility] [address] [place] [address] CBC w/ Auto Diffon 3 Erythrocyte distribution width (RBC) [Ratio] 13.8 % Normal 10.9-14.2 [facility] Comment on above: Performed By: #### 2 246804, 1228359, 4777968, 83633339 ####[facility] [address] [place] [address] Hematocrit (Bld) [Volume fraction] 41.7 % Normal 34.0-46.0 [facility] Comment on above: Performed By: #### 2 875209, 4030065, 9776243, 82384910 ####[facility] [address] [place] [address] Hemoglobin (Bld) [Mass/Vol] 14.4 g/dL Normal 12.0-16.0 [facility] Comment on above: Performed By: #### 2 343421, 5970413, 7508569, 03591415 ####[address] [place] [address] MCH (RBC) [Entitic mass] 31.1 pg Normal 27.0-34.0 [facility] Comment on above: Performed By: #### 2 023577, 7657730, 2705994, 05018491 ####[address] [address] MCHC (RBC) [Mass/Vol] 34.4 g/dL Normal 31.4-36.0 [facility] Comment on above: Performed By: #### 2 232307, 8502842, 1560647, 27984463 ####[address] MCV (RBC) [Entitic vol] 90.2 fL Normal 80.0-100.0 [facility] Comment on above: Performed By: #### 2 126965, 9626543, 0731282, 59218749 ####[address] [address] Platelet mean volume (Bld) [Entitic vol] 7.8 fL Normal 6.4-10.8 [facility] Comment on above: Performed By: #### 2 148248, 2002928, 1069090, 17723105 ####[address] [address] Platelets (Bld) [#/Vol] 171.0 E9/L Normal 150.0-500.0 [facility] Comment on above: Performed By: #### 2 226090, 1388542, 9669571, 91525879 ####[address] [address] RBC (Bld) [#/Vol] 4.6 E12/L Normal 4.3-5.9 [facility] Comment on above: Performed By: #### 2 498406, 3543614, 9743148, 12644496 ####[address] [address] WBC corrected for nucl RBC Auto (Bld) [#/Vol] 16.5 E9/L High 4.0-11.0 [facility] Comment on above: Result Comment: Ilaid e reviewed by TLP. Performed By: #### 2 942553, 6770120, 1157689, 46307472 ####[facility] [address] [place] [address] CHEMISTRYOrdered By: Lab ROP User on 05-10-2023 Glucose [Mass/Vol] 336 mg/dL High 55 - 99 mg/dL FTM C POC Subsection Comment on above: Result Comment: [place]esto ANDRES POC Device SN [id number] Invalid Interpretation Code FT POC Subsection POC User ID [id number] Invalid Interpretation Code [facility] POC Subsection POC Username FREDDIE GUY Invalid Interpretation Code [facility] POC Subsection Glucose [Mass/Vol] 299 mg/dL High 55 - 99 mg/dL FTM C POC Subsection Comment on above: Result Comment: [place] ANDRES Cleaned Meter POC Device SN [id number] Invalid Interpretation Code [facility] POC Subsection POC User ID [id number] Invalid Interpretation Code [facility] POC Subsection POC Username MAURICE POST Invalid Interpretation Code [facility] POC Subsection CHEMISTRYOrdered By: SYSTEM SYSTEM on 05-10-2023 Anion gap [Moles/Vol] 12 mmol/L Normal 6 - 16 mEq/L [facility] Remisol Calcium [Mass/Vol] 8.3 mg/dL Low 8.9 - 11.1 mg/dL [facility] Remisol Chloride [Moles/Vol] 111 mmol/L Normal 101 - 111 mmol/ L [facility] Remisol CO2 [Moles/Vol] 22 mmol/L Normal 21 - 31 mmol/L [facility] Remisol Creatinine [Mass/Vol] 1.4 mg/dL High 0.5 - 1.3 mg/dL [facility] Remisol GFR/1.73 sq M.predicted among non-blacks MDRD (S/P/Bld) [Vol rate/Area] 40 mL/min/1.73 m2 Low >=59mL/min/1.73 m2 [facility] Chem S Glucose [Mass/Vol] 256 mg/dL High 55 - 199 mg/dL FT Remisol Potassium [Moles/Vol] 3.7 mmol/L Normal 3.5 - 5.3 mmol/L [facility] Remisol Sodium [Moles/Vol] 141 mmol/L Normal 135 - 145 mmol/L [facility] Remisol Urea nitrogen [Mass/Vol] 30 mg/dL High 5 - 21 mg/dL [facility] Remisol Urea nitrogen/Creatinine [Mass ratio] 21 mg/mg High 10 - 20 [facility] Remisol Capillary Glucose POCon 04-30 Glucose [Mass/Vol] 336 mg/dL High 55-99 [facility] Comment on above: Result Comment: [place] ANDRES Performed By: #### 2 11159280 ####[facility] [address] [place] [address] Glucose [Mass/Vol] 299 mg/dL High 55- [facility] Comment on above: Result Comment: [place] ZAMORAleaned Meter Performed By: #### 2 [id number] ####[facility] [address] [place] [address] Glucose [Mass/Vol] 314 mg/dL High - [facility] Comment on above: Result Comment: [place] ANDRES Performed By: #### 2 63059874 ####[facility] [address] [place] [address] Glucose [Mass/Vol] 249 mg/dL High 55- [facility] Comment on above: Result Comment: [place] ANDRES Performed By: #### 2 16170562 ####[facility] [address] [place] [address] Glucose [Mass/Vol] 247 mg/dL High - [facility] Comment on above: Result Comment: [place] ANDRES Performed By: #### 2 67244684 ####[facility] [address] [place] [address] Glucose [Mass/Vol] 302 mg/dL High [address] Comment on above: Result Comment: [place] ANDRES Performed By: #### 2 05829406 ####[facility] [address] [place] [address] Consent for Anesthesiaon Consent for Anesthesia [id number]# 1.00CD:127 Normal [facility] Consent for Procedure/Surger yon 05-10-2023 Consent for Procedure/Surgery [id number]# 1.00CD:127 Normal [facility] HEMATOLOGYOrdered By: SYSTEM SYSTEM on 05-10-2023 Basophils/100 WBC (Bld) 0.1 % Normal 0.0 - 2.0 % [facility] Basophils/Leukocytes Auto (Bld) [Pure # fraction] 0.0 E9/L Normal 0.0 - 0.2 E9/L [facility] Eosinophils/100 WBC (Bld) 0.0 % Normal 0.0 - 8.0 % [facility] Eosinophils/Leukocyt es Auto (Bld) [Pure # fraction] 0.0 E9/L Normal 0.0 - 0.5 E9/L [facility] Lymphocytes/100 WBC (Bld) 6.5 % Low 14.0 - 50.0 % [facility] Lymphocytes/Leukocyt es Auto (Bld) [Pure # fraction] 1.1 E9/L Normal 1.0 - 4.0 E9/L [facility] Monocytes/100 WBC (Bld) 4.2 % Normal 4.0 - 14.0 % [facility] Monocytes/Leukocytes Auto (Bld) [Pure # fraction] 0.7 E9/L Normal 0.2 - 1.0 E9/L [facility] Neutrophils/100 WBC (Bld) 89.2 % High 36.0 - 75.0 % [facility] Neutrophils/Leukocyt es Auto (Bld) [Pure # fraction] 14.7 E9/L High 2.0 - 7.5 E9/L [facility] HEMATOLOGYOrdered By: Virginia Dillard on 05-10-2023 Erythrocyte distribution width (RBC) [Ratio] 13.8 % Normal 10.9 - 14.2 % [facility] Hematocrit (Bld) [Volume fraction] 41.7 % Normal 34.0 - 46.0 % [facility] Hemoglobin (Bld) [Mass/Vol] 14.4 g/dL Normal 12.0 - 16.0 gm/dL [facility] MCH (RBC) [Entitic mass] 31.1 pg Normal 27.0 - 34.0 pg [facility] MCHC (RBC) [Mass/Vol] 34.4 g/dL Normal 31.4 - 36.0 gm/dL [facility] MCV (RBC) [Entitic vol] 90.2 fL Normal 80.0 - 100.0 fL [facility] Platelet mean volume (Bld) [Entitic vol] 7.8 fL Normal 6.4 - 10.8 fL [facility] Platelets (Bld) [#/Vol] 171.0 E9/L Normal 150.0 - 500.0 E9/L [facility] RBC (Bld) [#/Vol] 4.6 E12/L Normal 4.3 - 5.9 E12/L [facility] WBC corrected for nucl RBC Auto (Bld) [#/Vol] 16.5 E9/L High 4.0 - 11.0 E9/L [facility] Comment on above: Result Comment: Slid e reviewed by TLP. 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 Patient was Ind w/ basic adls/transfers in her room. Dc inpatient OT services. Normal [facility] IntraOperative Documentson 0 05-10-2023 IntraOperative Documents [id number]# 1.00CD:127 Normal [facility] Monitor Recordon 05-10-2023 Monitor Record [id number]# 1.00CD:127 Normal [facility] Monitor Record [id number]# 1.00CD:127 Normal [facility] Progress Note-Physicianon Progress Note-Physician Normal [facility] Comment on above: Result Comment: Elec tronically Signed By: ROSEMARY CHISHOLM, Ck\.br\Date and Time Signed: 05/10/23 11:23 EDT XR Abdomen 1 Viewon 05-10-20 XR Abdomen 1 View Normal [facility] eGFRon 05-10-2023 GFR/1.73 sq M.predicted among non-blacks MDRD (S/P/Bld) [Vol rate/Area] 40 mL/min/1.73 m2 Low >=59 [facility] Comment on above: Order Comment: Order added by Discern Expert. 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 Kidney failure is indicated at less than 15 mL/min/1.73m2. Performed By: #### 2 621959, 0916285, 9906250, 50365468 ####[facility] [address] [place] [address] Auto Diffon 05-09-2023 Basophils/100 WBC (Bld) 0.5 % Normal 0.0-2.0 [facility] Comment on above: Order Comment: Order Added by Discern Expert. Performed By: #### 1 2823135, 8826204, 56296480, 6792640, 8698233, 8541593, 7960520, 8145653, 38121966 ####[facility] [address] [place] [address] Basophils/Leukocytes Auto (Bld) [Pure # fraction] 0.1 E9/L Normal 0.0-0.2 [facility] Comment on above: Order Comment: Order Added by Discern Expert. Performed By: #### 1 2306854, 9616335, 56761575, 4664415, 9763878, 6671937, 8119861, 0060647, 87461218 ####[address] [place] [address] Eosinophils/100 WBC (Bld) 0.2 % Normal 0.0-8.0 [facility] Comment on above: Order Comment: Order Added by Discern Expert. Performed By: #### 1 2811150, 9534635, 01724667, 7381163, 2985852, 1392221, 6457492, 8614099, 87489591 ####[address] [place] [address] Eosinophils/Leukocyt es Auto (Bld) [Pure # fraction] 0.0 E9/L Normal 0.0-0.5 [facility] Comment on above: Order Comment: Order Added by Christen Expert. Performed By: #### 1 7340858, 8172090, 82587639, 8842195, 6770559, 4467790, 4643179, 3594346, 96380495 ####[address] [address] Lymphocytes/100 WBC (Bld) 6.1 % Low 14.0-50.0 [facility] Comment on above: Order Comment: Order Added by Christen Expert. Performed By: #### 1 2009164, 5150729, 69615951, 6320630, 8788875, 6178988, 5923406, 8272544, 20774798 ####[address] [place] [address] Lymphocytes/Leukocyt es Auto (Bld) [Pure # fraction] 1.0 E9/L Normal 1.0-4.0 [facility] Comment on above: Order Comment: Order Added by Christen Expert. Performed By: #### 1 [id number], [id number], [id number], [id number], [id number], 1914209, [id number], [id number] ####[address] [place] [address] Monocytes/100 WBC (Bld) 7.4 % Normal 4.0-14.0 [facility] Comment on above: Order Comment: Order Added by Discern Expert. Performed By: #### 1 [id number], [id number], [id number], 5205313, 2847147, 3070069, 8104796, 1555708, [id number] ####[address] [place] [address] Monocytes/Leukocytes Auto (Bld) [Pure # fraction] 1.2 E9/L High 0.2-1.0 [facility] Comment on above: Order Comment: Order Added by Discern Expert. Performed By: #### 1 6132713, 9606277, 31407868, 9402884, 4334801, 9972326, 7011938, 9513842, 97932263 ####[address] [place] [address] Neutrophils/100 WBC (Bld) 85.8 % High 36.0-75.0 [facility] Comment on above: Order Comment: Order Added by Discern Expert. Performed By: #### 1 2968769, 8186464, 20049858, 4333984, 7280826, 0015235, 5181504, 3098629, 15778085 ####[address] [place] [address] Neutrophils/Leukocyt es Auto (Bld) [Pure # fraction] 13.6 E9/L High 2.0-7.5 [facility] Comment on above: Order Comment: Order Added by Discern Expert. Performed By: #### 1 7877222, 5418287, 55278662, 1497181, 1480478, 3039852, 6286629, 2632070, 69453152 ####[address] [place] [address] BMPon 05-09-2023 Creatinine [Mass/Vol] 1.6 mg/dL High 0.5-1.3 [facility] Comment on above: Performed By: #### 1 3396445, 6464129, 82998090, 6829966, 3204939, 6571586, 7476779, 2684450, 74997120 ####[facility] [address] [place] [address] Urea nitrogen [Mass/Vol] 23 mg/dL High 5-21 [facility] Comment on above: Performed By: #### 1 3120351, 6206778, 86721190, 4286562, 6540045, 8107468, 3204848, 0665996, 64388434 ####[facility] [address] [place] [address] Urea nitrogen/Creatinine [Mass ratio] 14 No Units Normal 10-20 [facility] Comment on above: Performed By: #### 1 0661265, 1198874, 54181898, 7681026, 7331602, 9996730, 5490207, 5948249, 66572743 ####[facility] [address] [place] [address] Anion gap [Moles/Vol] 10 mmol/L Normal 6-16 [facility] Comment on above: Performed By: #### 1 2556803, 0849270, 82213624, 7739937, 9446917, 9205889, 6500939, 7027579, 57685109 ####[facility] [address] [place] [address] Calcium [Mass/Vol] 9.0 mg/dL Normal 8.9-11.1 [facility] Comment on above: Performed By: #### 1 3367546, 2800029, 08720599, 6472290, 8030395, 7976233, 4675063, 8490769, 29076017 ####[facility] [address] [place] [address] Chloride [Moles/Vol] 111 mmol/L Normal 101-111 [facility] Comment on above: Performed By: #### 1 6691950, 2697289, 27623746, 7471744, 7184752, 2936352, 2456435, 3394285, 27883394 ####[facility] [address] [place] [address] CO2 [Moles/Vol] 24 mmol/L Normal 21-31 [facility] Comment on above: Performed By: #### 1 0812995, 9277926, 73282505, 6907675, 2477893, 5618304, 2420196, 6875751, 71645944 ####[facility] [address] [place] [address] Glucose [Mass/Vol] 419 mg/dL High 55-199 [facility] Comment on above: Result Comment: If t his glucose result represents a fasting glucose, interpretation should refer to the following reference range: 55-99 mg/dL Performed By: #### 1 6350904, 4006436, 63950888, 4202465, 3058366, 2892656, 7222262, 9299804, 64929527 ####[facility] [address] [place] [address] Potassium [Moles/Vol] 4.0 mmol/L Normal 3.5-5.3 [facility] Comment on above: Performed By: #### 1 4315672, 6741137, 57088071, 4210747, 7964457, 7383728, 1944595, 5119651, 40804465 ####[facility] [address] [place] [address] Sodium [Moles/Vol] 141 mmol/L Normal 135-145 [facility] Comment on above: Performed By: #### 1 6464610, 1859411, 32957307, 5558117, 4453430, 0227838, 0244536, 9578857, 46953847 ####[facility] [address] [place] [address] CBC w/ Auto Diffon 3 Erythrocyte distribution width (RBC) [Ratio] 13.8 % Normal 10.9-14.2 [facility] Comment on above: Performed By: #### 1 5274541, 9068749, 46810147, 8015182, 0399989, 1112488, 9949273, 4190306, 50103945 ####[address] [place] [address] Hematocrit (Bld) [Volume fraction] 46.4 % High 34.0-46.0 [facility] Comment on above: Performed By: #### 1 4756080, 5960721, 44503912, 7223608, 1809933, 2931414, 6096022, 5311997, 59089220 ####[address] [place] [address] Hemoglobin (Bld) [Mass/Vol] 16.0 g/dL Normal 12.0-16.0 [facility] Comment on above: Performed By: #### 1 3653882, 3696083, 64154556, 8732388, 6857360, 5679588, 9185444, 6054964, 32079519 ####[address] [address] MCH (RBC) [Entitic mass] 31.1 pg Normal 27.0-34.0 [facility] Comment on above: Performed By: #### 1 5124077, 5502247, 90971567, 9643391, 3873226, 6265566, 5855384, 2388633, 24980318 ####[address] [place] [address] MCHC (RBC) [Mass/Vol] 34.4 g/dL Normal 31.4-36.0 [facility] Comment on above: Performed By: #### 1 4579428, 8526656, 55024367, 6647006, 9581337, 7837838, 7588793, 4466682, 85528010 ####[address] [place] [address] MCV (RBC) [Entitic vol] 90.4 fL Normal 80.0-100.0 [facility] Comment on above: Performed By: #### 1 3386530, 0237025, 50630009, 1219922, 8674060, 3197033, 3312736, 8107841, 70740344 ####[facility] [address] [place] [address] Platelet mean volume (Bld) [Entitic vol] 7.6 fL Normal 6.4-10.8 [facility] Comment on above: Performed By: #### 1 3636054, 0336314, 86466628, 7844991, 9145026, 6168351, 2217664, 1054934, 05672556 ####[facility] [address] [place] [address] Platelets (Bld) [#/Vol] 181.0 E9/L Normal 150.0-500.0 [facility] Comment on above: Performed By: #### 1 7136777, 7095479, 70144213, 7702240, 4520493, 4838229, 3435975, 0688337, 26191583 ####[facility] [address] [place] [address] RBC (Bld) [#/Vol] 5.1 E12/L Normal 4.3-5.9 [facility] Comment on above: Performed By: #### 1 9533335, 3085245, 32649371, 6724771, 8645804, 9565328, 6283644, 5944588, 62413665 ####[facility] [address] [place] [address] WBC corrected for nucl RBC Auto (Bld) [#/Vol] 15.9 E9/L High 4.0-11.0 [facility] Comment on above: Performed By: #### 1 5381326, 6219764, 24100277, 4474266, 5604927, 1844429, 3613016, 3825115, 35743004 ####[facility] [address] [place] [address] CHEMISTRYOrdered By: SYSTEM SYSTEM on 05-09-2023 Glucose [Mass/Vol] 460 mg/dL Invalid Interpretation Code 55 - 199 mg/dL [facility] Comment on above: Result Comment: Crit ical Result verified by repeat analysis\Critical Result [id number] Called to [facility]IN[facility] GALVE[facility] AT 3S by SHELLY FERNANDO And Read Back For Confirmation at: 05/09/2023 22:21:19 Albumin [Mass/Vol] 3.5 g/dL Normal 3.3 - 5.0 gm/dL F [facility] Remisol Albumin/Globulin [Mass ratio] 1.0 {ratio} Low 1.1 - 2.2 [facility] Remisol ALP [Catalytic activity/Vol] 68 [iU]/d Normal 21 - 98 Int._Unit/L [facility] Rem[facility] ALT No additional P-5'-P [Catalytic activity/Vol] 18 [iU]/d Normal 6 - 46 Int._Unit/L [facility] Anion gap [Moles/Vol] 10 mmol/L Normal 6 - 16 mEq/L [facility] AST [Catalytic activity/Vol] 18 [iU]/d Normal 5 - 43 Int._Unit/L [facility] Bilirubin [Mass/Vol] 0.9 mg/dL Normal 0.0 - 1.1 mg/dL [facility] Bilirubin.direct [Mass/Vol] 0.2 mg/dL Normal 0.1 - 0.4 mg/dL [facility] Bilirubin.indirect [Mass or moles/Vol] 0.7 mg/dL Normal 0.1 - 0.9 mg/dL [facility] Calcium [Mass/Vol] 9.0 mg/dL Normal 8.9 - 11.1 mg/dL [facility] Chloride [Moles/Vol] 111 mmol/L Normal 101 - 111 mmol/ L [facility] CO2 [Moles/Vol] 24 mmol/L Normal 21 - 31 mmol/L [facility] Creatinine [Mass/Vol] 1.6 mg/dL High 0.5 - 1.3 mg/dL [facility] GFR/1.73 sq M.predicted among non-blacks MDRD (S/P/Bld) [Vol rate/Area] 34 mL/min/1.73 m2 Low >=59mL/min/1.73 m2 [facility] Chem S Globulin (S) [Mass/Vol] 3.5 g/dL Normal 1.4 - 4.0 gm/dL [facility] Remisol Glucose [Mass/Vol] 419 mg/dL High 55 - 199 mg/dL [facility] Lactate [Mass/Vol] 1.8 mmol/L Normal 0.5 - 2.2 mmol/L [facility] Remisol Lipase [Catalytic activity/Vol] 70 U/L High 13 - 58 unit/L [facility] Remisol Potassium [Moles/Vol] 4.0 mmol/L Normal 3.5 - 5.3 mmol/L [facility] Remisol Protein [Mass/Vol] 7.0 g/dL Normal 6.0 - 7.8 gm/dL [facility] Remisol Sodium [Moles/Vol] 141 mmol/L Normal 135 - 145 mmol/L [facility] Remisol Troponin I.cardiac [Mass/Vol] 15.10 pg/mL Normal 10.10 - 27.10 pg/mL [facility] Remisol Urea nitrogen [Mass/Vol] 23 mg/dL High 5 - 21 mg/dL [facility] Remisol Urea nitrogen/Creatinine [Mass ratio] 14 mg/mg Normal 10 - 20 [facility] Remisol CHEMISTRYOrdered By: Nayely Dawkins on 05-09-2023 HbA1c (Bld) [Mass fraction] 10.1 % High <=5.9% [facility] ChemAutoSS COAGULATIONOrdered By: Claudio Jones on 05-09-2023 aPTT Coag (PPP) [Time] 23.7 s Low 25.1 - 36.5 second(s) [facility] Auto Coag INR Coag (PPP) [Relative time] 0.9 {INR} Invalid Interpretation Code [facility] Auto Coag PT Coag (PPP) [Time] 10.0 s Normal 9.4 - 1 2.5 second(s) [facility] Auto Coag CT Abdomen/Pelvis w/o Contra ston 05-09-2023 CT Abdomen/Pelvis w/o Contrast Normal [facility] Capillary Glucose POCon 04-30 Glucose [Mass/Vol] 495 mg/dL Abnormal 55- [facility] Comment on above: Result Comment: [place] ANDRES Performed By: #### 2 [id number] ####[facility] [address] [place] [address] Glucose Cap >500 Abnormal [facility] Comment on above: Result Comment: [place] ANDRES Performed By: #### 2 [id number] ####[facility] [address] [place] [address] Glucose [Mass/Vol] 434 mg/dL High 55-99 [facility] Comment on above: Result Comment: [place] ANDRES Performed By: #### 2 [id number] ####[facility] [address] [place] [address] Consent for Treatmenton 04-30 Consent for Treatment [id number]#1 .00CD:127 Normal [facility] Consultation Noteon 05-09-20 Consultation Note Normal [facility] Comment on above: Result Comment: Elec tronically Signed By: JAILENE CHISHOLM, Glynn Mcdermott\.br\Date and Time Signed: 05/09/23 14:07 EDT ED Clinical Summaryon 2022 ED Clinical Summary Normal [facility] ED Note-Physicianon 05-09-20 ED Note-Physician Normal [facility] Comment on above: Result Comment: Elec tronically Signed By: Lazara Larios PA-C\.br\Date and Time Signed: 05/09/23 12:01 EDT\.br\Electronically Co-Signed By: Noe Azar DO\.br\Date and Time Co-Signed: 05/09/23 16:06 EDT ED Patient Education Noteon 05-09-2023 ED Patient Education Note Normal [facility] ED Patient Summaryon 023 ED Patient Summary Normal [facility] Glucoseon 05-09-2023 Glucose [Mass/Vol] 460 mg/dL Abnormal 55-199 [facility] Comment on above: Order Comment: Finge rstick blood sugar is >450. Blood sugar blood draw ordered per protocol. Result Comment: Crit ical Result verified by repeat analysis\Critical Result [id number] Called to [facility] AT 3S by SHELLY FERNANDO And Read Back For Confirmation at: 05/09/2023 22:21:19 Performed By: #### 2 976365 ####[facility] [address] [place] [address] HEMATOLOGYOrdered By: SYSTEM SYSTEM on 05-09-2023 Basophils/100 WBC (Bld) 0.5 % Normal 0.0 - 2.0 % [facility] HemeAutoSS Basophils/Leukocytes Auto (Bld) [Pure # fraction] 0.1 E9/L Normal 0.0 - 0.2 E9/L [facility] HemeAutoSS Eosinophils/100 WBC (Bld) 0.2 % Normal 0.0 - 8.0 % [facility] HemeAutoSS Eosinophils/Leukocyt es Auto (Bld) [Pure # fraction] 0.0 E9/L Normal 0.0 - 0.5 E9/L [facility] HemeAutoSS Lymphocytes/100 WBC (Bld) 6.1 % Low 14.0 - 50.0 % [facility] HemeAutoSS Lymphocytes/Leukocyt es Auto (Bld) [Pure # fraction] 1.0 E9/L Normal 1.0 - 4.0 E9/L [facility] HemeAutoSS Monocytes/100 WBC (Bld) 7.4 % Normal 4.0 - 14.0 % [facility] HemeAutoSS Monocytes/Leukocytes Auto (Bld) [Pure # fraction] 1.2 E9/L High 0.2 - 1.0 E9/L [facility] HemeAutoSS Neutrophils/100 WBC (Bld) 85.8 % High 36.0 - 75.0 % [facility] HemeAutoSS Neutrophils/Leukocyt es Auto (Bld) [Pure # fraction] 13.6 E9/L High 2.0 - 7.5 E9/L [facility] HemeAutoSS HEMATOLOGYOrdered By: Rayne Barnhart on 05-09-2023 Erythrocyte distribution width (RBC) [Ratio] 13.8 % Normal 10.9 - 14.2 % [facility] HemeAutoSS Hematocrit (Bld) [Volume fraction] 46.4 % High 34.0 - 46.0 % [facility] HemeAutoSS Hemoglobin (Bld) [Mass/Vol] 16.0 g/dL Normal 12.0 - 16.0 gm/dL [facility] HemeAutoSS MCH (RBC) [Entitic mass] 31.1 pg Normal 27.0 - 34.0 pg [facility] HemeAutoSS MCHC (RBC) [Mass/Vol] 34.4 g/dL Normal 31.4 - 36.0 gm/dL [facility] HemeAutoSS MCV (RBC) [Entitic vol] 90.4 fL Normal 80.0 - 100.0 fL [facility] HemeAutoSS Platelet mean volume (Bld) [Entitic vol] 7.6 fL Normal 6.4 - 10.8 fL [facility] HemeAutoSS Platelets (Bld) [#/Vol] 181.0 E9/L Normal 150.0 - 500.0 E9/L [facility] HemeAutoSS RBC (Bld) [#/Vol] 5.1 E12/L Normal 4.3 - 5.9 E12/L [facility] HemeAutoSS WBC corrected for nucl RBC Auto (Bld) [#/Vol] 15.9 E9/L High 4.0 - 11.0 E9/L [facility] HemeAutoSS Hep Func Panelon 05-09-2023 Albumin [Mass/Vol] 3.5 g/dL Normal 3.3-5.0 [facility] Comment on above: Performed By: #### 1 2707639, 9945084, 32532264, 3312215, 4414421, 5733888, 5239178, 3493435, 62395169 ####[facility] [address] [place] [address] Albumin/Globulin (S) [Mass conc ratio] 1.0 Low 1.1-2.2 [facility] Comment on above: Performed By: #### 1 0781633, 3562943, 84526485, 4218801, 4300154, 9252408, 7493590, 9276903, 32440347 ####[facility] [address] [place] [address] ALP [Catalytic activity/Vol] 68 Int._Unit/L Normal 21-98 [facility] Comment on above: Performed By: #### 1 7792723, 9560766, 38815761, 4386228, 8685453, 5095358, 9155690, 2866798, 02772831 ####[facility] [address] [place] [address] ALT No additional P-5'-P [Catalytic activity/Vol] 18 Int._Unit/L Normal 6-46 [facility] Comment on above: Performed By: #### 1 7309019, 1146458, 12455347, 1670541, 9234684, 4985699, 1599018, 9303838, 50246863 ####[address] [place] [address] AST [Catalytic activity/Vol] 18 Int._Unit/L Normal 5-43 [facility] Comment on above: Performed By: #### 1 2929642, 9481633, 84060163, 0119328, 4788159, 5793205, 1797476, 3342687, 54985631 ####[address] [place] [address] Bilirubin [Mass/Vol] 0.9 mg/dL Normal 0.0-1.1 [facility] Comment on above: Performed By: #### 1 0678932, 7002650, 75963321, 6632681, 2827772, 1329103, 4394206, 9037853, 75774361 ####[address] Bilirubin.direct [Mass/Vol] 0.2 mg/dL Normal 0.1-0.4 [facility] Comment on above: Performed By: #### 1 9895664, 4009468, 14640763, 5069312, 3045785, 9273998, 1055641, 4827850, 79696406 ####[address] [place] [address] Bilirubin.indirect [Mass or moles/Vol] 0.7 mg/dL Normal 0.1-0.9 [facility] Comment on above: Performed By: #### 1 0948135, 1336488, 98066991, 0259299, 4160626, 2837927, 3363843, 4517499, 59461167 ####[address] [place] [address] Globulin (S) [Mass/Vol] 3.5 g/dL Normal 1.4-4.0 [facility] Comment on above: Performed By: #### 1 6623533, 4777846, 53187668, 9391369, 7833321, 6793297, 2875141, 9463131, 71712839 ####[facility] [address] [place] [address] Protein [Mass/Vol] 7.0 g/dL Normal 6.0-7.8 [facility] Comment on above: Performed By: #### 1 1768866, 5630134, 64665620, 6873309, 9233711, 9969993, 1525169, 3491244, 19420688 ####[facility] [address] [place] [address] Laboratory - Microbiology an d Antimicrobial susceptibilityOrdered By: Nata Prieto on 05-09-2023 Bacteria identified Cx Nom (U) <10,000 cfu/ml Mixed skin contaminants [facility] Lactic Acidon 05-09-2023 Lactate [Mass/Vol] 1.8 mmol/L Normal 0.5-2.2 [facility] Comment on above: Performed By: #### 1 8866582, 4379104, 47542650, 3289506, 8409318, 9529915, 9091557, 5091966, 63598490 ####[facility] [address] [place] [address] Lipase Levelon 05-09-2023 Lipase [Catalytic activity/Vol] 70 U/L High 13-58 [facility] Comment on above: Performed By: #### 1 5151787, 0148427, 83596965, 3310017, 3930260, 8701491, 2264376, 8771138, 53527701 ####[facility] [address] [place] [address] Main OR PACU I Recordon 04-30 Main OR PACU I Record Normal [facility] Main OR Preoperative Recordo n 05-09-2023 Main OR Preoperative Record Normal [facility] Main OR Preoperative Record Normal [facility] Monitor Recordon 05-09-2023 Monitor Record [id number] 1.00CD:127 Normal [facility] Monitor Record [id number]# 1.00CD:127 Normal [facility] Operative Reporton 3 Operative Report Normal [facility] Comment on above: Result Comment: Elec tronically Signed By: JAILENE CHISHOLM, Glynn Valdes\Date and Time Signed: 05/09/23 14:13 EDT PT & PTTon 05-09-2023 aPTT Coag (PPP) [Time] 23.7 second(s) Low 25.1-36.5 [facility] Comment on above: Result Comment: Para [...] the same coagulation reagent and instrumentation as [facility]. Currently there are no coagulation studies available worldwide for children to 14 days, and no normal ranges. Heparin therapeutic range (represented by Anti-Factor Xa activity of 0.2 - 0.4 U/mL) corresponds to PTT of 56.6 - 109.0 sec. Performed By: #### 1 5913564, 9121348, 94143214, 6314233, 2995573, 7997402, 4497185, 6519215, 91576262 ####[facility] [address] [place] [address] INR Coag (PPP) [Relative time] 0.9 {INR} Invalid Interpretation Code [facility] Comment on above: Result Comment: INR results are specifically intended to assess patients stabilized on long-term Anticoagulation therapy suggested INR?s ?Less Intensive Anticoagulation? 2.0 ? 3.0Conventional Range 3.0 ? 4.5 Performed By: #### 1 6670081, 1756967, 51086325, 8235704, 1763201, 8460410, 6794016, 7013102, 94246385 ####[facility] [address] [place] [address] PT Coag (PPP) [Time] 10.0 second(s) Normal 9.4-12.5 [facility] Comment on above: Result Comment: 15 [...] the same coagulation reagent and instrumentation as [facility]. Currently there are no coagulation studies available worldwide for children to 14 days, and no normal ranges. Performed By: #### 1 5341713, 1301765, 09575880, 3674511, 3283530, 2885053, 7163242, 5706967, 02142017 ####[facility] [address] [place] [address] Progress Note-Physicianon Progress Note-Physician Normal [facility] Comment on above: Result Comment: Elec tronically Signed By: Gino Yates Jr., DO.br\Date and Time Signed: 05/09/23 15:16 EDT Progress Note-Physician Normal [facility] Comment on above: Result Comment: Elec tronically Signed By: Gino Yates Jr., DO.br\Date and Time Signed: 05/09/23 13:29 EDT Troponin 0 Hr.on 05-09-2023 Troponin I.cardiac [Mass/Vol] 15.10 pg/mL Normal 10.10-27.10 [facility] Comment on above: Result Comment: The 95% CI (Confidence Interval) PPV (Positive Predictive Value) for myocardial infarction in females is 38 pg/mL, in males 51 pg/mL. The results should be used in conjunction with clinical conditions of myocardial infarction.(Access High Sensitivity Troponin I Instructions For Use, Jairo Elsy, March 2018) Performed By: #### 1 1979230, 5216043, 38654377, 0683809, 2852365, 8293592, 6946370, 0178848, 55046856 ####[facility] [address] [place] [address] UA With Cult Reflexon 2022 Bacteria LM Ql (Urine sed) 1+ /HPF Abnormal Trace [facility] Comment on above: Performed By: #### 2 031910, 90385604 ####[address] [place] [address] Bilirubin Ql (U) Negative Normal Negative [facility] Comment on above: Performed By: #### 2 296154, 79867757 ####[facility] [address] [place], [place] [address] Clarity (U) SL CLOUDY Abnormal Clear [facility] Comment on above: Performed By: #### 2 727241, 14805422 ####[address] [address] Color (U) STRAW Abnormal Yellow [facility] Comment on above: Performed By: #### 2 119400, 29581022 ####[address] [address] Epithelial cells.squamous LM.HPF (Urine sed) [#/Area] 0-2 Normal 0-2 [facility] Comment on above: Performed By: #### 2 828198, 31238775 ####[facility] [address] [place] [address] Glucose Test strip (U) [Mass/Vol] 3+ Abnormal Negative [facility] Comment on above: Performed By: #### 2 373161, 07481696 ####[facility] [address] [place] [address] Hemoglobin Ql (U) 1+ Abnormal Negative [facility] Comment on above: Performed By: #### 2 343512, 89714991 ####[facility] [address] [place] [address] Ketones (U) [Mass/Vol] Negative Normal Negative [facility] Comment on above: Performed By: #### 2 125753, 04042782 ####[facility] [address] [place] [address] Bucklin.plasma/Lithi um.RBC (Bld) [Mass ratio] 0-3 Normal 0-3 [facility] Comment on above: Performed By: #### 2 310432, 11311980 ####[facility] [address] [place] [address] Nitrite Ql (U) Negative Normal Negative [facility] Comment on above: Performed By: #### 2 127724, 94712223 ####[address] [address] pH (U) 5.5 [pH] Invalid Interpretation Code 5.0-9.0 [facility] Comment on above: Performed By: #### 2 045017, 50565668 ####[facility] [address] [place] [address] Protein (U) [Mass/Vol] TRACE Abnormal Negative [facility] Comment on above: Performed By: #### 2 274856, 48264398 ####[facility] [address] [place] [address] Specific gravity (U) [Rel density] 1.015 Invalid Interpretation Code 1.005-1.030 [facility] Comment on above: Performed By: #### 2 710240, 51881003 ####[facility] [address] [place] [address] Type of Urine collection method Clean Catch Normal [facility] Comment on above: Performed By: #### 2 151791, 42292976 ####[facility] [address] [place] [address] Urobilinogen Qn (U) 0.2 {Isis'U}/dL Normal 0.0-1.0 [facility] Comment on above: Performed By: #### 2 444334, 48371500 ####[facility] [address] [place] [address] WBC Auto Ql (U) 1+ Abnormal Negative [facility] Comment on above: Performed By: #### 2 337335, 61597905 ####[facility] [address] [place] [address] WBC LM.HPF (Urine sed) [#/Area] /[HPF] Abnormal 0-5 [facility] Comment on above: Performed By: #### 2 222474, 46966922 ####[facility] [address] [place] [address] URINALYSISOrdered By: Alecia Jones on 05-09-2023 Bacteria [...] AM) Normal Negative [facility] UA Auto SS Buck[place].plasma/Lithi um.RBC (Bld) [Mass ratio] 0-3 /HPF Normal 0-3/HPF [facility] UA Auto SS Nitrite Ql (U) Negative (05/09/23 11:07 AM) Normal Negative [facility] UA Auto SS pH (U) 5.5 *NA* (05/09/23 11:07 AM) Invalid Interpretation Code 5.0 - 9.0 [facility] UA Auto SS Protein (U) [Mass/Vol] Trace *ABN* (05/09/23 11:07 AM) Invalid Interpretation Code Negative [facility] UA Auto SS Specific gravity (U) [Rel density] 1.015 *NA* (05/09/23 11:07 AM) Invalid Interpretation Code 1.005 - 1.030 [facility] UA Auto SS UA Spec Desc Clean Catch (05/09/23 11:07 AM) Normal [facility] UA Auto SS Urobilinogen Qn (U) [id number] {Isis'U}/dL Normal 0.0 - 1.0 EU/dL [facility] UA Auto SS WBC Auto Ql (U) 1+ *ABN* (05/09/23 11:07 AM) Invalid Interpretation Code Negative [facility] UA Auto SS WBC LM.HPF (Urine sed) [#/Area] /[HPF] Invalid Interpretation Code 0-5/HPF [facility] UA Auto SS eGFRon 05-09-2023 GFR/1.73 sq M.predicted among non-blacks MDRD (S/P/Bld) [Vol rate/Area] 34 mL/min/1.73 m2 Low >=59 [place] [facility] Comment on above: Order Comment: Order added by Discern Expert. 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 Kidney failure is indicated at less than 15 mL/min/1.73m2. Performed By: #### 1 [id number], [id number], [id number], [id number], [id number], [id number], [id number], [id number], [id number] ####[facility] [address] [place] [address] [facility] 03-29-2023 CNCO HNO ID: [id number] Author: Coordinator, Mammography Service: ? Author Type: Physician Type: Letter Filed: 03/30/2023 11:31 PM Note Text: March 30, 2023 PID: [id number] Shahana Grace [address] [place] [id number] Dear Ms. Grace, We are pleased to [...] report will be kept on file at [facility] as part of your permanent medical record and are available for your continuing care. Thank you for allowing us to help in meeting your health care needs. Sincerely, Dr. Costa Interpreting Radiologist [facility] (Normal over 40) Normal [facility] SCREENINGon 03-26-2023 [facility] SCREENING * * *Final Report* * * DATE OF EXAM: Mar 26 2023 2:03PM [facility] 0581 - [facility] SCREENING / PROCEDURE REASON: Z12.31 * * * * Physician Interpretation * * * * RESULT: #[id number] - [facility] SCREENING BILATERAL DIGITAL SCREENING MAMMOGRAM WITH CAD: 03/26/2023 HISTORY: Z12.31 / Screening Mammogram-Patient reports NO symptoms. RESULT: TECHNIQUE: The study was acquired using full field digital technology and interpreted from soft copy. Current study was also evaluated with a Computer Aided Detection (CAD). Comparison is made to exams dated: 07/13/2018 mammogram - [facility], 11/10/2019 mammogram - [facility], 11/11/2020 mammogram - [facility] [place], and [facility]/28/20[facility]. There are scattered fibroglandular elements in both breasts. There is a biopsy clip in the right breast. No significant masses, calcifications, or other findings are seen in either breast. There has been no significant interval change. IMPRESSION: NEGATIVE There is no mammographic evidence of malignancy. A 1 year screening mammogram is recommended. Sharona arechiga/penjeremi:03/29/2023 08:29:23 Jewelry Engraver(s): Izabela Cardona, [facility] letter sent: Normal over 40 Mammogram [...] Health, Family Medicine, and Medical/Surgical Oncology, the [facility] has carefully reviewed the data and reached [...] their providers when to stop screening mammograms. Service Technician: Vincent Transcribe Date/Time: Mar 26 2023 1:20P Dictated by : SHARONA COSTA MD This examination was interpreted and the report reviewed and electronically signed by: SHARONA COSTA MD on Mar 29 2023 8:29AM EST [id number] Normal [facility] Urine 10 SGon 11-24-2022 Albumin DL <= 20 mg/L (U) [Mass/Vol] Negative [employer] Other Albumin DL <= 20 mg/L (U) [Mass/Vol] Moderate [employer] Other pH (U) 5.0 [pH] [employer] Other Urine 10 SG Negative [employer] Other Urine 10 SG 1.005 [employer] Other Urine 10 SG trace [employer] Other Urine 10 SG 0.2 [employer] Other Urine Cultureon 11-24-2022 Bacteria identified Cx Nom (U) Reason for Exam Urinary tract infection, site not specified;Hematuria, unspe Urine Reason for Exam: Urinary tract infection, site not specified;Hematuria, unspe : Urine ORGANISM: Enterococcus faecalis (O:ENTFAC) [place] Count 75,000 Aerobic LAUREN Charge (PCMIC38) ---- [...] RESISTANT TO ALL B-LACTAM DRUGS. PERFORMED BY: [facility] [address] [place] [address] PATHOLOGIST SEISMIC PLOTTER KEVIN SWARTZ M.D. Normal [facility] Comment on above: Performed By: #### C UU #### [facility] [address] CHEMISTRYOrdered By: SYSTEM SYSTEM on 11-14-2022 [...] rate/Area] 49 mL/min/1.73 m2 Low >=59mL/min/1.73 m2 FT Chem S GFR/1.73 sq M.predicted among non-blacks MDRD (S/P/Bld) [Vol rate/Area] 40 mL/min/1.73 m2 Low >=59mL/min/1.73 m2 [facility] Chem S Globulin (S) [Mass/Vol] 3.6 g/dL [...] 10 - 20 [facility] Remisol COAGULATIONOrdered By: Allis on Jessica on 11-14-2022 aPTT Coag (PPP) [Time] 28.6 [...] - 7.5 E9/L [facility] HemeAutoSS HEMATOLOGYOrdered By: Alliso n Jessica on 11-14-2022 Erythrocyte distribution width (RBC) [Ratio] [...] Interpretation Code Negative [facility] UA Auto SS Bucklin.plasma/Lithi um.RBC (Bld) [Mass ratio] 4-20 /HPF Normal 0-3/HPF [facility] UA Auto SS Nitrite Ql (U) Negative (11/14/22 1:26 AM) Normal Negative [facility] UA Auto SS pH (U) 6.0 *NA* (11/14/22 1:26 AM) Invalid Interpretation Code 5.0 - 9.0 [facility] UA Auto SS Protein (U) [Mass/Vol] 1+ *ABN* (11/14/22 1:26 AM) Invalid Interpretation Code Negative [facility] UA Auto SS Specific gravity (U) [Rel density] 1.020 *NA* (11/14/22 1:26 AM) Invalid Interpretation Code 1.005 - 1.030 [facility] UA Auto SS UA Spec Desc Clean Catch (11/14/22 1:26 AM) Normal [facility] UA Auto SS Urobilinogen Qn (U) 1.5244592 {Isis'U}/dL Normal 0.0 - 1.0 EU/dL [facility] UA Auto SS WBC Auto Ql (U) 2+ *ABN* (11/14/22 1:26 AM) Invalid Interpretation Code Negative [facility] UA Auto SS WBC LM.HPF (Urine sed) [#/Area] 16-25 /HPF Invalid Interpretation Code 0-5/HPF [facility] UA Auto SS CHEMISTRYOrdered By: Lab ROP User on 11-13-2022 Glucose [Mass/Vol] 223 mg/dL High 55 - 99 mg/dL FTM C POC Subsection Comment on above: Result Comment: Modesto vanegas RN/ POC Device [id number] Invalid Interpretation Code [facility] POC Subsection POC User ID [id number] Invalid Interpretation Code [facility] POC Subsection POC Username AZIZA DELA CRUZ Invalid Interpretation Code [facility] POC Subsection Office Visit (Cardiology)on 07-29-2022 Follow-up visit Diagnoses/Problems Assessed 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 (414.01) (I25.10) CHF (congestive heart failure) (428.0) (I50.9) History of PTCA (V45.82) (Z98.61) 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) PVC (premature ventricular contraction) (427.69) (I49.3) Ischemic cardiomyopathy (414.8) (I25.5) Atherosclerosis of coronary artery bypass graft of 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 Prescriptions will not be filled unless you are compliant with your follow up appointments or have a follow up appointment scheduled as per instruction of your physician. Refills should be requested at the time of your visit. Follow up in 1 year Chief Complaint SHAHANAMIKE GRACE is being seen for an annual follow-up of. 72-year-old female follows up at 1 year and is doing very well she has no cardiovascular complaints, angina, nitrate usage or hospitalizations. She suffered an inferior [place] in 2015 with primary revascularization of the [...] of section x2 History of Colonoscopy 30Aug2006 [facility] History of Lithotripsy Past Medical History Problems [...] Recorded: 29Jul2022 09:54AM Heart Rate80, L Radial Emfpxpml523, LUE, Sitting Wkezjcrpy96, LUE, Sitting Height5 ft 2 in Knovad197 lb BMI Bbyrjzbuqv80.85 kg/m2 BSA Calculated1.9 (more content not included)... Normal [employer] Tobacco Screening.on 022 Adult depression screening assessment No [facility] DO Work Phone: Fall risk assessment a) No falls within the last year [facility] DO Work Phone: Tobacco use status CP b) No [facility] DO Work Phone: CHEMISTRYOrdered By: Lab ROP User on 06-19-2022 Glucose [Mass/Vol] 190 mg/dL High 55 - 99 mg/dL FTM C POC Subsection Comment on above: Result Comment: Modesto vanegas RN/ POC Device SN [id number] Invalid Interpretation Code [facility] POC Subsection POC User ID [id number] Invalid Interpretation Code [facility] POC Subsection POC Username Ayleen Kelley Invalid Interpretation Code [facility] POC Subsection Glucose [Mass/Vol] 176 mg/dL High 55 - 99 mg/dL FTM C POC Subsection Comment on above: Result Comment: Modesto vanegas RN/ POC Device SN [id number] Invalid Interpretation Code [facility] POC Subsection POC User ID [id number] Invalid Interpretation Code [facility] POC Subsection POC Username Ayleen Kelley Invalid Interpretation Code [facility] POC Subsection CHEMISTRYOrdered By: SYSTEM SYSTEM on 06-19-2022 Anion gap [Moles/Vol] 9 mmol/L Normal 6 - 16 mEq/L [facility] Remisol Calcium [Mass/Vol] 8.5 mg/dL Low 8.9 - 11.1 mg/dL [facility] Remisol Chloride [Moles/Vol] 113 mmol/L High 101 - 111 mmol/ L [facility] Remisol CO2 [Moles/Vol] 20 mmol/L Low 21 - 31 mmol/L [facility] Remisol Creatinine [Mass/Vol] 2.0 mg/dL High 0.5 - 1.3 mg/dL [facility] Remisol GFR/1.73 sq M.predicted among blacks MDRD (S/P/Bld) [Vol rate/Area] 30 mL/min/1.73 m2 Low >=59mL/min/1.73 m2 [facility] Chem S GFR/1.73 sq M.predicted among non-blacks MDRD (S/P/Bld) [Vol rate/Area] 25 mL/min/1.73 m2 Low >=59mL/min/1.73 m2 [facility] Chem S Glucose [Mass/Vol] 207 mg/dL High 55 - 199 mg/dL [facility] Remisol Potassium [Moles/Vol] 4.4 mmol/L Normal 3.5 - 5.3 mmol/L [facility] Remisol Sodium [Moles/Vol] 138 mmol/L Normal 135 - 145 mmol/L [facility] Remisol Urea nitrogen [Mass/Vol] 37 mg/dL High 5 - 21 mg/dL [facility] Remisol Urea nitrogen/Creatinine [Mass ratio] 18 mg/mg Normal 10 - 20 [facility] Remisol HEMATOLOGYOrdered By: SYSTEM SYSTEM on 06-19-2022 Basophils/100 [...] 13.9 % Normal 10.9 - 14.2 % [facility] HemeAutoSS Hematocrit (Bld) [Volume fraction] 35.3 % Normal 34.0 - 46.0 % [facility] HemeAutoSS Hemoglobin (Bld) [Mass/Vol] 12.0 g/dL Normal 12.0 - 16.0 gm/dL [facility] HemeAutoSS MCH (RBC) [Entitic mass] 30.6 pg Normal 27.0 - 34.0 pg FT HemeAutoSS MCHC (RBC) [Mass/Vol] 34.0 g/dL Normal 31.4 - 36.0 gm/dL [facility] HemeAutoSS MCV (RBC) [Entitic vol] 90.1 fL Normal 80.0 - 100.0 fL [facility] HemeAutoSS Platelet mean volume (Bld) [Entitic vol] 7.4 fL Normal 6.4 - 10.8 fL [facility] HemeAutoSS Platelets (Bld) [#/Vol] 170.0 E9/L Normal 150.0 - 500.0 E9/L [facility] HemeAutoSS RBC (Bld) [#/Vol] 3.9 E12/L Low 4.3 - 5.9 E12/L [facility] HemeAutoSS WBC corrected for nucl RBC Auto (Bld) [#/Vol] 11.5 E9/L High 4.0 - 11.0 E9/L [facility] HemeAutoSS CHEMISTRYOrdered By: Lab ROP User on 06-18-2022 Glucose [Mass/Vol] 192 mg/dL High 55 - 99 mg/dL [facility] C POC Subsection Comment on above: Result Comment: Modesto vanegas RN/ POC Device SN [id number] Invalid Interpretation Code [facility] POC Subsection POC User ID [id number] Invalid Interpretation Code [facility] POC Subsection POC Username KAIA BURR Invalid Interpretation Code [facility] POC Subsection CHEMISTRYOrdered By: SYSTEM SYSTEM on 06-18-2022 Anion [...] rate/Area] 32 mL/min/1.73 m2 Low >=59mL/min/1.73 m2 FT Chem S GFR/1.73 sq M.predicted among non-blacks MDRD (S/P/Bld) [Vol rate/Area] 26 mL/min/1.73 m2 Low >=59mL/min/1.73 m2 [facility] Chem S Glucose [Mass/Vol] 279 mg/dL High 55 - 199 mg/dL [facility] Remisol Potassium [Moles/Vol] 4.9 mmol/L Normal 3.5 - 5.3 mmol/L [facility] Remisol Sodium [Moles/Vol] 140 mmol/L Normal 135 - 145 mmol/L [facility] Remisol Urea nitrogen [Mass/Vol] 36 mg/dL High 5 - 21 mg/dL [facility] Remisol Urea nitrogen/Creatinine [Mass ratio] 19 mg/mg Normal 10 - 20 [facility] Remisol HEMATOLOGYOrdered By: SYSTEM SYSTEM on 06-18-2022 Basophils/100 WBC (Bld) 0.5 % Normal 0.0 - 2.0 % [facility] HemeAutoSS Basophils/Leukocytes Auto (Bld) [Pure # fraction] 0.1 E9/L Normal 0.0 - 0.2 E9/L [facility] HemeAutoSS Eosinophils/100 WBC (Bld) 0.0 % Normal 0.0 - 8.0 % [facility] [...] 13.6 E9/L High 2.0 - 7.5 E9/L [facility] HemeAutoSS HEMATOLOGYOrdered By: Wendy Pritchard on 06-18-2022 Erythrocyte distribution width (RBC) [Ratio] 13.8 % Normal 10.9 - 14.2 % [facility] HemeAutoSS Hematocrit (Bld) [Volume fraction] 39.1 % Normal 34.0 - 46.0 % [facility] HemeAutoSS Hemoglobin (Bld) [Mass/Vol] 13.3 g/dL Normal 12.0 - 16.0 gm/dL [facility] HemeAutoSS MCH (RBC) [Entitic mass] 30.8 pg Normal 27.0 - 34.0 pg [facility] HemeAutoSS MCHC (RBC) [Mass/Vol] 34.0 g/dL Normal 31.4 - 36.0 gm/dL [facility] HemeAutoSS MCV (RBC) [Entitic vol] 90.5 fL Normal 80.0 - 100.0 fL [facility] HemeAutoSS Platelet mean volume (Bld) [Entitic vol] 8.1 fL Normal 6.4 - 10.8 fL [facility] HemeAutoSS Platelets (Bld) [#/Vol] 208.0 E9/L Normal 150.0 - 500.0 E9/L [facility] HemeAutoSS RBC (Bld) [#/Vol] 4.3 E12/L Normal 4.3 - 5.9 E12/L [facility] HemeAutoSS WBC corrected for nucl RBC Auto (Bld) [#/Vol] 15.0 E9/L High 4.0 - 11.0 E9/L [facility] HemeAutoSS CHEMISTRYOrdered By: SYSTEM SYSTEM on 06-17-2022 [...] 19 mmol/L High 6 - 16 mEq/L [facility] Remisol AST [Catalytic activity/Vol] 15 [iU]/d Normal 5 - 43 Int._Unit/L [facility] Remisol Bilirubin [Mass/Vol] 0.8 mg/dL Normal 0.0 - 1.1 mg/dL [facility] Remisol Bilirubin.direct [Mass/Vol] 0.2 mg/dL Normal 0.1 - 0.4 mg/dL [facility] Remisol Bilirubin.indirect [Mass or moles/Vol] 0.6 mg/dL Normal 0.1 - 0.9 mg/dL [facility] Remisol Calcium [Mass/Vol] 9.6 mg/dL Normal 8.9 - 11.1 mg/dL [facility] Remisol Chloride [Moles/Vol] 106 mmol/L Normal 101 - 111 mmol/ L [facility] Remisol CO2 [Moles/Vol] 21 mmol/L Normal 21 - 31 mmol/L [facility] Remisol Creatinine [Mass/Vol] 1.9 mg/dL High 0.5 - 1.3 mg/dL [facility] Remisol GFR/1.73 sq M.predicted among blacks MDRD (S/P/Bld) [Vol rate/Area] 32 mL/min/1.73 m2 Low >=59mL/min/1.73 m2 [facility] Chem S GFR/1.73 sq M.predicted among non-blacks MDRD (S/P/Bld) [Vol rate/Area] 26 mL/min/1.73 m2 Low >=59mL/min/1.73 m2 FT Chem S Globulin (S) [Mass/Vol] 3.7 g/dL Normal 1.4 - 4.0 gm/dL [facility] Remisol Glucose [Mass/Vol] 327 mg/dL High 55 - 199 mg/dL [facility] Remisol Lipase [Catalytic activity/Vol] 70 U/L High 13 - 58 unit/L [facility] Remisol Potassium [Moles/Vol] 4.8 mmol/L Normal 3.5 - 5.3 mmol/L [facility] Remisol Protein [Mass/Vol] 7.6 g/dL Normal 6.0 - 7.8 gm/dL [facility] Remisol Sodium [Moles/Vol] 141 mmol/L Normal 135 [...] Klebsiella pneumoniae <10,000 cfu/ml Mixed skin contaminants [facility] Trimethoprim+Sulfamethoxazol e LAUREN [Susc]Ordered By: Nata Prieto on 06-17-2022 Klebsiella pneumoniae Klebsiella pneumoniae [facility] URINALYSISOrdered By: Ruperto Lutz on 06-17-2022 Bacteria [...] Interpretation Code Negative [facility] UA Auto SS Bucklin.plasma/Lithi um.RBC (Bld) [Mass ratio] 4-20 /HPF Normal [...] [facility] UA Auto SS Urobilinogen Qn (U) 0.3017701 {Isis'U}/dL Normal 0.0 - 1.0 EU/dL [facility] UA Auto SS WBC Auto Ql (U) 1+ *ABN* (06/17/22 2:35 PM) Invalid Interpretation Code Negative [facility] UA Auto SS WBC LM.HPF (Urine sed) [#/Area] 6-15 /HPF Invalid Interpretation Code 0-5/HPF [facility] UA Auto SS CNCOon 01-28-2022 [facility] HNO ID: [id number] Author: Mammography Coordinator Service: ? Author Type: Physician Type: Letter Filed: 01/29/2022 11:34 PM Note Text: January 28, 2022 PID: [id number] Shahana Grace [address] [place] [id number] Dear Ms. Grace, We are pleased to [...] report will be kept on file at [facility] as part of your permanent medical record and are available for your continuing care. Thank you for allowing us to help in meeting your health care needs. Sincerely, Dr. Green Interpreting Radiologist [facility] (Normal over 40) Normal [facility] SCREENINGon 01-28-2022 [facility] SCREENING * * *Final Report* * * DATE OF EXAM: Jan 28 2022 12:49PM [facility] 0581 - [facility] SCREENING / PROCEDURE REASON: annual * * * * Physician Interpretation * * * * RESULT: #[id number] - [facility] SCREENING BILATERAL DIGITAL SCREENING MAMMOGRAM WITH CAD: 01/28/2022 HISTORY: Screening Mammogram-Patient reports NO symptoms. RESULT: TECHNIQUE: The study was acquired using full field digital technology and interpreted from soft copy. Current study was also evaluated with a Computer Aided Detection (CAD). Comparison is made to exams dated: 11/11/2020 mammogram - [facility] [place], 11/10/2019 mammogram - [facility], 07/13/2018 mammogram, and 04/29/2017 mammogram - [facility]. There are scattered fibroglandular elements in both breasts. There is a biopsy clip in the right breast. No significant masses, calcifications, or other findings are seen in either breast. There has been no significant interval change. IMPRESSION: NEGATIVE There is no mammographic evidence of malignancy. A 1 year screening mammogram is recommended. Nafisa fernando/vincent:01/28/2022 14:40:17 Jewelry Engraver(s): RT Grupo(R)(M), [facility] letter sent: Normal over 40 Mammogram [...] Health, Family Medicine, and Medical/Surgical Oncology, the [facility] has carefully reviewed the data and reached [...] their providers when to stop screening mammograms. Service Technician: Vincent Transcribe Date/Time: Jan 28 2022 12:39P Dictated by: NAFISA GREEN MD This examination was interpreted and the report reviewed and electronically signed by: NAFISA GREEN MD on Jan 28 2022 2:40PM EST [id number] Normal [facility] CHEMISTRYOrdered By: SYSTEM SYSTEM on 12-10-2021 Creatinine [Mass/Vol] 1.1 mg/dL Normal 0.5 - 1.3 mg/dL [facility] Remisol GFR/1.73 sq M.predicted among blacks MDRD (S/P/Bld) [Vol rate/Area] 60 mL/min/1.73 m2 Normal >=59mL/min/1.73 m2 [facility] Chem S GFR/1.73 sq M.predicted among non-blacks MDRD (S/P/Bld) [Vol rate/Area] 49 mL/min/1.73 m2 Low >=59mL/min/1.73 m2 [facility] Chem S XR KUB 1 VIEWon 10-08-2021 [...] DEL [place] Date: 2021-10-08 07:13 Normal [facility] PROF CHEM 8 (BAS METB)on Anion gap [Moles/Vol] 12.7 mmol/L Normal [facility] Comment on above: Performed By: #### B MP #### [facility] [address] [address] [address] Shreya De La Fuente Calcium [Mass/Vol] 9.7 mg/dL Normal 8.4-10.2 [facility] Comment on above: Performed By: #### B MP #### [facility] [address] [address] [address] Shreya De La Fuente Chloride [Moles/Vol] 108 mmol/L Critically high 98-107 [facility] Comment on above: Performed By: #### B MP #### [facility] [address] [address] [address] Shreya De La Fuente CO2 [Moles/Vol] 26.1 mmol/L Normal 22.0-30.0 [facility] Comment on above: Performed By: #### B MP #### [facility] [address] [address] [address] Shreya De La Fuente Creatinine [Mass/Vol] 1.29 mg/dL Critically high 0.52-1.04 [facility] Comment on above: Performed By: #### B MP #### [facility] [address] [address] [address] Shreya De La Fuente EGFR-AF GRENADIAN 50 mL/min/1.73m2 Critically low >=60 [facility] Comment on above: Performed By: #### B MP #### [facility] [id number] Shreya De La Fuente EGFR-NON AF GRENADIAN 41 mL/min/1.73m2 Critically low >=60 [facility] Comment on above: Performed By: #### B MP #### [facility] [address] [address] [address] Shreya De La Fuente Glucose [Mass/Vol] 117 mg/dL Critically high 74-106 [facility] Comment on above: Performed By: #### B MP #### [facility] [address] [place], [place] [address] Dr. Shreya De La Fuente Potassium [Moles/Vol] 3.8 mmol/L Normal 3.4-5.0 [facility] Comment on above: Performed By: #### B MP #### [facility] [address] [place], [place] [address] Dr. Shreya De La Fuente Sodium [Moles/Vol] 143 mmol/L Normal 137-145 [facility] Comment on above: Performed By: #### B MP #### [facility] [address] [place], [place] [address] Dr. Shreya De La Fuente Urea nitrogen [Mass/Vol] 15.0 mg/dL Normal 7.0-17.0 [facility] Comment on above: Performed By: #### B MP #### [facility] [address] [place], [place] [address] Dr. Shreya De La Fuente Urea nitrogen/Creatinine [Mass ratio] 11.6 mg/mg Normal [facility] Comment on above: Performed By: #### B MP #### [facility] [address] [place], [place] [address] Dr. Shreya De La Fuente Tobacco Screening.on 021 Fall risk assessment a) No falls within the last year [facility] [place] [address] DO Work Phone: Heart Rate Regular [facility] 600 DO Work Phone: Tobacco use status [facility] b) No [facility] Work Phone: Radiologyon 07-15-2021 CT Head WO contrast Normal MP-No r[facility] [place] [facility] 250 DO Work Phone: Laboratory - Chemistry and C hemistry - challengeon 07-10-2021 CO2 [Moles/Vol] 20 mmol/L below low threshold 21-31 [facility] [facility] 250 DO Work Phone: Creatinine [Mass/Vol] 1.6 mg/dL above high threshold 0.5-1.3 [facility] Selam pruitt 250 DO Work Phone: No Panel Informationon 07-10 39 {mL/min/1.73_m2} below low threshold >=59 [facility] Selam pruitt 250 DO Work Phone: Comment on above: eGFR is race adjuste d. AA=. 32 {mL/min/1.73_m2} below low threshold >=59 [facility] Selam pruitt 250 DO Work Phone: [phone] Comment on above: Chronic kidney disea se could be indicated at eGFR's of less than 60 mL/min/1.73m2. Kidney failure is indicated at less than 15 mL/min/1.73m2. 14 {mEq/L} Normal 6-16 [facility] Selam pruitt 250 DO Work Phone: 113 mmol/L above high threshold 101-111 [facility] Selam pruitt 250 DO Work Phone: 4.3 mmol/L Normal 3.5-5.3 [facility] Selam pruitt 250 DO Work Phone: [phone] 143 mmol/L Normal 135-145 [facility] DO Work Phone: 9.6 mg/dL Normal 8.9-11.1 [facility] DO Work Phone: 31 {No_Units} above high threshold 10-20 [facility] Selam pruitt 250 DO Work Phone: 49 mg/dL above high threshold 5-21 [facility] 250 DO Work Phone: [phone] 139 mg/dL Normal 55-199 [facility] 250 DO Work Phone: Comment on above: If this glucose resu lt represents a fasting glucose, interpretation should refer to the following reference range: 55-99 mg/dL Tobacco Screening.on 021 Fall risk assessment a) No falls within the last year [facility] 600 DO Work Phone: Tobacco use status [facility] b) No [facility] [employer] 600 DO Work Phone: Creatinineon 04-22-2017 Creatinine 0.63 mg/dL Normal 0.50-1.05 [facility] Comment on above: Performed By: #### 1 [id number] ####[facility] [address] [place] [address] eGFR (MDRD) mL/min/{1.73_m2} Normal [facility] Healthcare Comment on above: Result Comment: Inte rpretation for Chronic Kidney Disease:Stages 1&2 >60 Healthy or potential kidney damage.Mild decrease of GFR.Stage 3 30-59 Moderate decrease of GFR.Stage 4 15-29 Severe decrease of GFR.Stage 5 <15 Kidney failure or on dialysis. Performed By: #### 1 [id number] ####[facility] [address] [place] [address] Electrolyte Panelon 04-22-20 17 Anion gap 17 mmol/L Normal 10-20 [facility] Comment on above: Performed By: #### 1 [id number] ####[facility] [address] [place] [address] Bicarbonate (HCO3) 23 mmol/L Normal 21-32 [facility] Healthcare Comment on above: Performed By: #### 1 [id number] ####[facility] [address] [place] [address] Chloride 108 mmol/L High 98-107 [facility] Healthcare Comment on above: Performed By: #### 1 [id number] ####[facility] [address] [place] [address] Potassium molar conc 3.9 mmol/L Normal 3.5-5.1 [facility] Healthcare Comment on above: Performed By: #### 1 [id number] ####[facility] [facility] [id number] [place] [address] Sodium 144 mmol/L Normal 136-145 [facility] Healthcare Comment on above: Performed By: #### [id number] ####[facility] [id number] [place] [address] Urea Nitrogenon 04-22-2017 Urea nitrogen 11 mg/dL Normal 6-23 [facility] Healthcare Comment on above: Performed By: #### [id number] ####[facility] [id number] [place] [address] Vital Signs Date Time Vital Sign Value Performing Clinician Facility 02-23-2024 12:00-0400 Hourly Rounding Glynn GRUBBSSLIN [facility] 02-23-2024 12:00-0400 Promise to Return Glynn AGNES [facility] 02-23-2024 11:08-0400 Heart rate 61 /min Glynn AGNES [facility] 02-23-2024 11:08-0400 SaO2% (BldA) [Mass fraction] 94 % Glynn AGNES [facility] 02-23-2024 11:06-0400 Diastolic blood pressure 73 mm[Hg] Glynn AGNES [facility] 02-23-2024 11:06-0400 Mean blood pressure 108 mm[Hg] Glynn AGNES [facility] 02-23-2024 11:06-0400 Systolic blood pressure 179 mm[Hg] Glynn AGNES [facility] 02-23-2024 11:06-0400 Body temperature 97.88 [degF] Glynn AGNES [facility] 02-23-2024 11:00-0400 Hourly Rounding Glynnjose GRUBBSSLIN [facility] 02-23-2024 11:00-0400 Promise to Return Glynn AGNES [facility] 02-23-2024 10:00-0400 Hourly Rounding Glynn AGNES [facility] 02-23-2024 10:00-0400 Promise to Return Glynnjose MINALIN [facility] 02-23-2024 07:00-0400 Body temperature 97.34 [degF] Glynn GRUBBSSLIN [facility] 02-23-2024 07:00-0400 Diastolic blood pressure 79 mm[Hg] Glynnjose GRUBBSSLIN [facility] 02-23-2024 07:00-0400 Heart rate 54 /min Glynnjose GRUBBSSLIN [facility] 02-23-2024 07:00-0400 Respiratory rate 16 /min Glynn GRUBBSSLIN [facility] 02-23-2024 07:00-0400 SaO2% (BldA) [Mass fraction] 96 % Glynn GRUBBSSLIN [facility] 02-23-2024 07:00-0400 Systolic blood pressure 182 mm[Hg] Glynnjose GRUBBSSLIN [facility] 02-22-2024 23:29-0400 Body temperature 98.42 [degF] Glynn GRUBBSSLIN [facility] 02-22-2024 23:29-0400 Diastolic blood pressure 84 mm[Hg] Glynnjose GRUBBSSLIN [facility] 02-22-2024 23:29-0400 Heart rate 52 /min Glynnjose GRUBBSSLIN [facility] 02-22-2024 23:29-0400 Respiratory rate 16 /min Glynnjose GRUBBSSLIN [facility] 02-22-2024 23:29-0400 SaO2% (BldA) [Mass fraction] 97 % Glynnjose GRUBBSSLIN [facility] 02-22-2024 23:29-0400 Systolic blood pressure 162 mm[Hg] Glynnjose GRUBBSSLIN [facility] 02-22-2024 21:44-0400 Heart rate 48 /min Glynnjose GRUBBSSLIN [facility] 02-22-2024 19:15-0400 Mean blood pressure 116 mm[Hg] Glynnjose GRUBBSSLIN [facility] 02-22-2024 19:15-0400 Body temperature 98.24 [degF] Glynnjose GRUBBSSLIN [facility] 02-22-2024 16:51-0400 gluc 308 mg/dL Glynnjose GRUBBSSLIN [facility] 02-22-2024 15:00-0400 Body temperature 97.52 [degF] Glynnjose GRUBBSSLIN [facility] 02-22-2024 12:48-0400 gluc 303 mg/dL Glynnjose GRUBBSSLIN [facility] 02-22-2024 09:41-0400 Heart rate 87 /min Glynnjose GRUBBSSLIN [facility] 02-22-2024 09:40-0400 gluc 212 mg/dL Glynnjose GRUBBSSLIN [facility] 02-22-2024 07:30-0400 Mean blood pressure 101 mm[Hg] Glynnjose GRUBBSSLIN [facility] 02-22-2024 03:34-0400 Blood Pressure Location Glynnjose GRUBBSSLIN [facility] 02-22-2024 03:34-0400 Body temperature 97.16 [degF] Glynnjose GRUBBSSLIN [facility] 02-22-2024 03:34-0400 Heart rate 52 /min Glynn AGNES [facility] 02-22-2024 03:34-0400 Respiratory rate 18 /min Glynn AGNES [facility] 02-21-2024 15:00-0400 Blood Pressure Location Glynn AGNES [facility] 02-21-2024 15:00-0400 Mean blood pressure 103 mm[Hg] Glynn AGNES [facility] 02-21-2024 15:00-0400 Respiratory rate 16 /min Glynn AGNES [facility] 02-21-2024 12:00-0400 Mean blood pressure 99 mm[Hg] Glynn AGNES [facility] 02-21-2024 07:00-0400 Mean blood pressure 112 mm[Hg] Glynn AGNES [facility] 02-21-2024 02:37-0400 Heart rate 51 /min Glynn AGNES [facility] 02-20-2024 11:50-0400 Heart rate 57 /min Glynn AGNES [facility] 02-19-2024 13:28-0400 gluc Glynn AGNES [facility] Comment on above: Result Comment: wv 02-19-2024 13:28-0400 Heart rate 75 /min Glynn AGNES [facility] 08-05-2023 16:01-0500 Heart rate 78 /min Orestesmoiz JACQUES [facility] 08-05-2023 16:01-0500 SaO2% (BldA) [Mass fraction] 96 % Orestes COOK [facility] 08-05-2023 16:01-0500 Diastolic blood pressure 85 mm[Hg] Orestes COOK [facility] 08-05-2023 16:01-0500 Mean blood pressure 105 mm[Hg] Orestes COOK [facility] 08-05-2023 16:01-0500 Systolic blood pressure 146 mm[Hg] Orestes COOK [facility] 08-05-2023 16:01-0500 Mean blood pressure 105 mm[Hg] Orestes COOK [facility] 08-05-2023 16:01-0500 Respiratory rate 16 /min Orestes COOK [facility] 08-05-2023 15:35-0500 Heart rate 77 /min Orestes COOK [facility] 08-05-2023 15:35-0500 SaO2% (BldA) [Mass fraction] 93 % Orestes COOK [facility] 08-05-2023 15:34-0500 Diastolic blood pressure 78 mm[Hg] Orestes COOK [facility] 08-05-2023 15:34-0500 Mean blood pressure 106 mm[Hg] Orestes COOK [facility] 08-05-2023 15:34-0500 Systolic blood pressure 164 mm[Hg] Orestes COOK [facility] 08-05-2023 15:34-0500 Mean blood pressure 107 mm[Hg] Orestes COOK [facility] 08-05-2023 15:34-0500 Respiratory rate 18 /min Orestes COOK [facility] 08-05-2023 15:26-0500 Body temperature 97.88 [degF] Orestes Credit Coach [facility] 08-05-2023 15:26-0500 Diastolic blood pressure 78 mm[Hg] Orestes COOK [facility] 08-05-2023 15:26-0500 Heart rate 71 /min Orestes COOK [facility] 08-05-2023 15:26-0500 Mean blood pressure 105 mm[Hg] Orestes [employer] [facility] 08-05-2023 15:26-0500 Respiratory rate 20 /min Orestes [employer] [facility] 08-05-2023 15:26-0500 SaO2% (BldA) [Mass fraction] 95 % Orestes [employer] [facility] 08-05-2023 15:26-0500 Systolic blood pressure 159 mm[Hg] Orestes [employer] [facility] 08-05-2023 15:15-0500 Respiratory rate 18 /min Orestes [employer] [facility] 08-05-2023 15:01-0500 Body temperature 97.7 [degF] Orestes [employer] [facility] 08-05-2023 14:55-0500 Respiratory rate 11 /min Orestes COOK [facility] 08-05-2023 14:50-0500 Respiratory rate 16 /min Orestes [employer] [facility] 08-05-2023 12:46-0500 Mean blood pressure 127 mm[Hg] Orestes [employer] [facility] 08-05-2023 12:46-0500 Blood Pressure Location Orestes JACQUES [facility] 08-05-2023 12:44-0500 Blood Pressure Location Orestes JACQUES [facility] 08-05-2023 12:30-0500 Blood Pressure Location Orestes JACQUES [facility] 08-05-2023 12:26-0500 Body temperature 97.88 [degF] Orestes JACQUES [facility] 07-28-2023 11:14-0500 Body height 157.5 cm Sterling Florian DO Work Phone: [facility] 07-28-2023 11:14-0500 Body mass index (BMI) [Ratio] 34.39 kg/m2 Sterling Florian DO Work Phone: [facility] 07-28-2023 11:14-0500 Body weight 85.28 kg Sterling Florian DO Work Phone: [facility] 07-28-2023 11:14-0500 Diastolic blood pressure 86 mm[Hg] Sterling Florian DO Work Phone: [facility] 07-28-2023 11:14-0500 Heart rate 74 /min Sterling Florian DO Work Phone: [facility] 07-28-2023 11:14-0500 Systolic blood pressure 128 mm[Hg] Sterling Florian DO Work Phone: [facility] 06-02-2023 12:16-0400 Hourly Rounding [facility] 06-02-2023 12:16-0400 Promise to Return Paola [facility] 06-02-2023 11:11-[address] [facility] 06-02-2023 11:11-0400 Promise to Return Paola [facility] 06-02-2023 11:03-0400 Heart rate 54 /min [facility] 06-02-2023 11:03-0400 SaO2% (BldA) [Mass fraction] 94 % [facility] 06-02-2023 11:02-0400 Body temperature 98.06 [degF] [facility] 06-02-2023 11:02-0400 Diastolic blood pressure 87 mm[Hg] [facility] 06-02-2023 11:02-0400 Mean blood pressure 113 mm[Hg] [facility] 06-02-2023 11:02-0400 Systolic blood pressure 165 mm[Hg] [facility] 06-02-2023 11:00-0400 Respiratory rate 18 /min [facility] 06-02-2023 10:29-[address] [facility] 06-02-2023 10:29-[address] [facility] 06-02-2023 08:50-0400 Diastolic blood pressure 83 mm[Hg] [facility] 06-02-2023 08:50-0400 Heart rate 68 /min [facility] 06-02-2023 08:50-0400 Systolic blood pressure 188 mm[Hg] [facility] 06-02-2023 08:03-0400 Heart rate 58 /min [facility] 06-02-2023 08:03-0400 SaO2% (BldA) [Mass fraction] 96 % [facility] 06-02-2023 08:00-0400 Diastolic blood pressure 83 mm[Hg] [facility] 06-02-2023 08:00-0400 Mean blood pressure 118 mm[Hg] [facility] 06-02-2023 08:00-0400 Systolic blood pressure 188 mm[Hg] [facility] 06-02-2023 08:00-0400 Body temperature 97.7 [degF] [facility] 06-02-2023 02:36-[address] [facility] 06-02-2023 02:36-0400 Body temperature 98.06 [degF] [facility] 06-02-2023 02:36-0400 Heart rate 68 /min [facility] 06-02-2023 02:36-0400 Respiratory rate 17 /min [facility] 06-01-2023 21:00-0400 Respiratory rate 16 /min [facility] 06-01-2023 20:28-0400 Heart rate 37 /min [facility] 06-01-2023 19:42-0400 SaO2% (BldA) [Mass fraction] 92 % [facility] 06-01-2023 19:41-0400 Mean blood pressure 98 mm[Hg] [facility] 06-01-2023 16:31-0400 Mean blood pressure 133 mm[Hg] [facility] 06-01-2023 16:31-0400 Respiratory rate 20 /min [facility] 06-01-2023 10:04-[address] [facility] 06-01-2023 10:04-0400 Heart rate 67 /min [facility] 06-01-2023 10:04-0400 Mean blood pressure 125 mm[Hg] [facility] 06-01-2023 00:00-0400 Body temperature 97.7 [degF] [facility] 06-01-2023 00:00-0400 Mean blood pressure 107 mm[Hg] [facility] 05-31-2023 18:32-[address] [facility] 05-30-2023 17:47-0400 gluc 171 mg/dL [facility] 05-30-2023 12:32-0400 gluc 191 mg/dL [facility] 05-27-2023 10:58-0400 Heart rate 80 /min [facility] 05-27-2023 09:29-0400 Body temperature 98.06 [degF] [facility] 05-27-2023 08:15-0400 Respiratory rate 18 /min [facility] 05-27-2023 08:10-0400 Respiratory rate 17 /min [facility] 05-27-2023 06:00-0400 Body temperature 99.68 [degF] [facility] 05-26-2023 15:59-0400 Heart rate 76 /min [facility] 05-11-2023 11:12-0400 Hourly Rounding [facility] 05-11-2023 11:12-0400 Promise to Return [facility] 05-11-2023 10:16-0400 Hourly Rounding [facility] 05-11-2023 10:16-0400 Promise to Return [facility] 05-11-2023 09:30-0400 Hourly Rounding [facility] 05-11-2023 09:30-0400 Promise to Return [facility] 05-11-2023 08:23-0400 gluc 226 mg/dL [facility] 05-11-2023 08:22-0400 Diastolic blood pressure 79 mm[Hg] [facility] 05-11-2023 08:22-0400 Heart rate 58 /min [facility] 05-11-2023 08:22-0400 Systolic blood pressure 192 mm[Hg] [facility] 05-11-2023 08:04-0400 Heart rate 66 /min [facility] 05-11-2023 08:04-0400 SaO2% (BldA) [Mass fraction] 96 % [facility] 05-11-2023 08:02-0400 Diastolic blood pressure 79 mm[Hg] [facility] 05-11-2023 08:02-0400 Mean blood pressure 117 mm[Hg] [facility] 05-11-2023 08:02-0400 Systolic blood pressure 192 mm[Hg] [facility] 05-11-2023 08:00-0400 Body temperature 98.06 [degF] [facility] 05-10-2023 23:00-0400 Heart rate 64 /min [facility] 05-10-2023 23:00-0400 Respiratory rate 16 /min [facility] 05-10-2023 20:40-0400 Heart rate 67 /min [facility] 05-10-2023 19:37-0400 Heart rate 70 /min [facility] 05-10-2023 19:37-0400 SaO2% (BldA) [Mass fraction] 93 % [facility] 05-10-2023 19:33-0400 Body temperature 97.52 [degF] [facility] 05-10-2023 19:32-0400 Blood Pressure Location [facility] 05-10-2023 19:32-0400 Mean blood pressure 75 mm[Hg] [facility] 05-10-2023 15:00-0400 Body temperature 98.24 [degF] [facility] 05-10-2023 15:00-0400 Heart rate 63 /min [facility] 05-10-2023 15:00-0400 Mean blood pressure 86 mm[Hg] [facility] 05-10-2023 15:00-0400 SaO2% (BldA) [Mass fraction] 94 % [facility] 05-10-2023 11:57-0400 gluc 314 mg/dL [facility] 05-10-2023 11:00-0400 Mean blood pressure 101 mm[Hg] [facility] 05-10-2023 11:00-0400 Respiratory rate 18 /min [facility] 05-10-2023 08:22-0400 gluc 249 mg/dL [facility] 05-10-2023 08:21-0400 Heart rate 71 /min [facility] 05-10-2023 08:00-0400 Body temperature 97.7 [degF] [facility] 05-10-2023 08:00-0400 Mean blood pressure 107 mm[Hg] [facility] 05-10-2023 04:19-0400 Mean blood pressure 114 mm[Hg] [facility] 05-10-2023 04:19-0400 Body temperature 98.06 [degF] [facility] 05-09-2023 15:00-0400 Body temperature 97.88 [degF] [facility] 05-09-2023 15:00-0400 Respiratory rate 15 /min [facility] 05-09-2023 14:50-0400 Blood Pressure Location [facility] 05-09-2023 14:50-0400 Respiratory rate 21 /min [facility] 05-09-2023 14:35-0400 Respiratory rate 20 /min [facility] 05-09-2023 14:04-0400 Body temperature 98.06 [degF] Margareth ESCOBARMARCIANO [facility] 11-14-2022 02:39-0400 Body temperature 98.06 [degF] Kaylinn Dokken [facility] 11-14-2022 02:39-0400 Diastolic blood pressure 77 mm[Hg] Kaylinn Dokken [facility] 11-14-2022 02:39-0400 Heart rate 82 /min Kaylinn Dokken [facility] 11-14-2022 02:39-0400 Mean blood pressure 104 mm[Hg] Kaylinn Dokken [facility] 11-14-2022 02:39-0400 Respiratory rate 21 /min Kaylinn Dokken [facility] 11-14-2022 02:39-0400 SaO2% (BldA) [Mass fraction] 96 % Kaylinn Dokken [facility] 11-14-2022 02:39-0400 Systolic blood pressure 157 mm[Hg] Kaylinn Dokken [facility] 11-14-2022 02:04-0400 Diastolic blood pressure 84 mm[Hg] Kaylinn Dokken [facility] 11-14-2022 02:04-0400 Heart rate 79 /min Kaylinn Dokken [facility] 11-14-2022 02:04-0400 Mean blood pressure 111 mm[Hg] Kaylinn Dokken [facility] 11-14-2022 02:04-0400 Respiratory rate 18 /min Kaylinn Dokken [facility] 11-14-2022 02:04-0400 SaO2% (BldA) [Mass fraction] 95 % Kaylinn Dokken [facility] 11-14-2022 02:04-0400 Systolic blood pressure 164 mm[Hg] Kaylinn Dokken [facility] 11-14-2022 01:30-0400 Diastolic blood pressure 96 mm[Hg] Kaylinn Dokken [facility] 11-14-2022 01:30-0400 Heart rate 83 /min Kaylinn Dokken [facility] 11-14-2022 01:30-0400 Mean blood pressure 122 mm[Hg] Kaylinn Dokken [facility] 11-14-2022 01:30-0400 Respiratory rate 18 /min Kaylinn Dokken [facility] 11-14-2022 01:30-0400 SaO2% (BldA) [Mass fraction] 96 % Kaylinn Dokken [facility] 11-14-2022 01:30-0400 Systolic blood pressure 174 mm[Hg] Kaylinn Dokken [facility] 11-14-2022 01:08-0400 Body temperature 99.68 [degF] Kaylinn Dokken [facility] 11-13-2022 23:38-0400 gluc 223 mg/dL Kaylinn Dokken [facility] 11-13-2022 23:38-0400 gluc Kaylinn Dokken [facility] 11-13-2022 23:29-0400 Body temperature 98.24 [degF] Makenzien Dokken [facility] 11-13-2022 23:29-0400 Heart rate 76 /min Paulieinn Dokken [facility] 11-13-2022 23:29-0400 Respiratory rate 18 /min Makenzien Dokken [facility] 11-13-2022 23:14-0400 Heart rate 83 /min Makenzien Doyoditen [facility] 07-29-2022 09:54-0500 Body height 157.48 cm Albertina Baldemar Shermans Work Phone: [facility] DO Work Phone: 07-29-2022 09:54-0500 Body mass index (BMI) [Ratio] 35.85 kg/m2 Albertina Baldemar [employer] Work Phone: [facility] [facility] DO Work Phone: 07-29-2022 09:54-0500 Body surface area Derived from formula 1.9 m2 Albertina Baldemar [employer] Work Phone: [facility] [facility] DO Work Phone: 07-29-2022 09:54-0500 Body weight 88.91 kg Albertina R Kuns Work Phone: [facility] 250 DO Work Phone: 07-29-2022 09:54-0500 Diastolic blood pressure 94 mm[Hg] Albertina R Kuns Work Phone: [facility] [facility] DO Work Phone: 07-29-2022 09:54-0500 Heart rate 80 /min Albertina R Kuns Work Phone: [facility] DO Work Phone: 07-29-2022 09:54-0500 Systolic blood pressure 138 mm[Hg] Albertina Arndt Work Phone: [facility] DO Work Phone: 07-13-2022 13:08-0500 Blood Pressure Location Wendy Lue [facility] 07-13-2022 13:08-0500 Diastolic blood pressure 80 mm[Hg] Wendy Lue [facility] 07-13-2022 13:08-0500 Heart rate 65 /min Wendy Lue [facility] 07-13-2022 13:08-0500 Respiratory rate 16 /min Wendy Lue [facility] 07-13-2022 13:08-0500 Systolic blood pressure 122 mm[Hg] Wendy Lue [facility] 06-19-2022 09:11-0400 gluc 176 mg/dL Orestes COOK [facility] 06-19-2022 09:10-0400 Diastolic blood pressure 85 mm[Hg] Orestes COOK [facility] 06-19-2022 09:10-0400 Heart rate 81 /min Orestes COOK [facility] 06-19-2022 09:10-0400 Systolic blood pressure 163 mm[Hg] Orestes COOK [facility] 06-19-2022 09:00-0400 Hourly Rounding Orestes COOK [facility] 06-19-2022 09:00-0400 Promise to Return Orestes JACQUES [facility] 06-19-2022 08:00-0400 Hourly Rounding Orestes JACQUES [facility] 06-19-2022 08:00-0400 Promise to Return Orestes JACQUES [facility] 06-19-2022 07:44-0400 Blood Pressure Location Orestes JACQUES [facility] 06-19-2022 07:44-0400 BP/Pulse Patient Position Orestes JACQUES [facility] 06-19-2022 07:44-0400 Diastolic blood pressure 85 mm[Hg] Orestes JACQUES [facility] 06-19-2022 07:44-0400 Heart rate 71 /min Orestes JACQUES [facility] 06-19-2022 07:44-0400 Mean blood pressure 111 mm[Hg] Orestes JACQUES [facility] 06-19-2022 07:44-0400 Respiratory rate 18 /min Orestes JACQUES [facility] 06-19-2022 07:44-0400 SaO2% (BldA) [Mass fraction] 93 % Orestes JACQUES [facility] 06-19-2022 07:44-0400 Systolic blood pressure 163 mm[Hg] Orestes COOK [facility] 06-19-2022 07:00-0400 Body temperature 98.24 [degF] Orestes COOK [facility] 06-19-2022 07:00-0400 Hourly Rounding Orestes JACQUES [facility] 06-19-2022 07:00-0400 Promise to Return Orestes JACQUES [facility] 06-19-2022 01:25-0400 Blood Pressure Location Orestes JACQUES [facility] 06-19-2022 01:25-0400 Body temperature 98.42 [degF] Orestes JACQUES [facility] 06-19-2022 01:25-0400 BP/Pulse Patient Position Orestes JACQUES [facility] 06-19-2022 01:25-0400 Diastolic blood pressure 77 mm[Hg] Orestes JACQUES [facility] 06-19-2022 01:25-0400 Heart rate 69 /min Orestes JACQUES [facility] 06-19-2022 01:25-0400 Mean blood pressure 100 mm[Hg] Orestes JACQUES [facility] 06-19-2022 01:25-0400 Respiratory rate 16 /min Orestes JACQUES [facility] 06-19-2022 01:25-0400 SaO2% (BldA) [Mass fraction] 94 % Orestes JACQUES [facility] 06-19-2022 01:25-0400 Systolic blood pressure 145 mm[Hg] Orestes JACQUES [facility] 06-18-2022 21:35-0400 Heart rate 77 /min Orestes JACQUES [facility] 06-18-2022 21:34-0400 gluc 192 mg/dL Orestes JACQUES [facility] 06-18-2022 19:35-0400 Blood Pressure Location Orestes JACQUES [facility] 06-18-2022 19:35-0400 Body temperature 98.06 [degF] Orestes [employer] [facility] 06-18-2022 19:35-0400 BP/Pulse Patient Position Orestes JACQUES [facility] 06-18-2022 19:35-0400 Heart rate 73 /min Orestes JACQUES [facility] 06-18-2022 19:35-0400 Mean blood pressure 115 mm[Hg] Orestes [employer] [facility] 06-18-2022 19:35-0400 Respiratory rate 16 /min Orestes [employer] [facility] 06-18-2022 19:35-0400 SaO2% (BldA) [Mass fraction] 93 % Orestes [employer] [facility] 06-18-2022 16:07-0400 Mean blood pressure 121 mm[Hg] Orestes [employer] [facility] 06-18-2022 13:10-0400 gluc 234 mg/dL Orestes [employer] [facility] 06-18-2022 08:09-0400 Heart rate 71 /min Orestes [employer] [facility] 06-17-2022 20:17-0400 Heart rate 89 /min Orestes [employer] [facility] 06-17-2022 19:45-0400 Body temperature 98.42 [degF] Orestes [employer] [facility] 06-17-2022 19:45-0400 Mean blood pressure 92 mm[Hg] Orestes [employer] [facility] 06-17-2022 19:45-0400 Respiratory rate 21 /min Orestes [employer] [facility] 06-17-2022 19:30-0400 Mean blood pressure 103 mm[Hg] Orestes JACQUES [facility] 06-17-2022 19:30-0400 Respiratory rate 20 /min Orestes JACQUES [facility] 06-17-2022 19:25-0400 Respiratory rate 23 /min Orestes JACQUES [facility] 06-17-2022 19:18-0400 Body temperature 97.16 [degF] Orestes JACQUES [facility] 06-17-2022 13:50-0400 Heart rate 74 /min Orestes JACQUES [facility] 06-17-2022 13:35-0400 Body temperature 98.6 [degF] Orestes JACQUES [facility] 06-17-2022 13:35-0400 Heart rate 71 /min Orestes JACQUES [facility] 02-02-2022 11:31-0400 Diastolic blood pressure 87 mm[Hg] Feroz Yury [facility] 02-02-2022 11:31-0400 Mean blood pressure 114 mm[Hg] Feroz Yury [facility] 02-02-2022 11:31-0400 Systolic blood pressure 167 mm[Hg] Mohamed Yury [facility] 02-02-2022 11:29-0400 Blood Pressure Location Mohbala Yury [facility] 02-02-2022 11:29-0400 Diastolic blood pressure 100 mm[Hg] Mohamed Yury [facility] 02-02-2022 11:29-0400 Heart rate 76 /min [facility] 02-02-2022 11:29-0400 Respiratory rate 16 /min Feroz Yury [facility] 02-02-2022 11:29-0400 SaO2% (BldA) [Mass fraction] 98 % Feroz Yury [facility] 02-02-2022 11:29-0400 Systolic blood pressure 171 mm[Hg] Feroz Yury [facility] 11-26-2021 11:06-0400 Blood Pressure Location Wendy Lue [facility] 11-26-2021 11:06-0400 Diastolic blood pressure 78 mm[Hg] Wendy Lue [facility] 11-26-2021 11:06-0400 Heart rate 68 /min Wendy Lue [facility] 11-26-2021 11:06-0400 Respiratory rate 16 /min Wendy Lue [facility] 11-26-2021 11:06-0400 Systolic blood pressure 132 mm[Hg] Wendy Lue [facility] 11-24-2021 08:56-0400 Diastolic blood pressure 76 mm[Hg] Feroz Cotton [facility] 11-24-2021 08:56-0400 Mean blood pressure 107 mm[Hg] Feroz Cotton [facility] 11-24-2021 08:56-0400 Systolic blood pressure 169 mm[Hg] Feroz Cotton [facility] 11-24-2021 08:54-0400 Blood Pressure Location Feroz Cotton [facility] 11-24-2021 08:54-0400 Diastolic blood pressure 99 mm[Hg] Feroz Cotton [facility] 11-24-2021 08:54-0400 Heart rate 74 /min Feroz Cotton [facility] 11-24-2021 08:54-0400 Respiratory rate 16 /min Feroz Cotton [facility] 11-24-2021 08:54-0400 SaO2% (BldA) [Mass fraction] 98 % Feroz Cotton [facility] 11-24-2021 08:54-0400 Systolic blood pressure 184 mm[Hg] Feroz Cotton [facility] 07-22-2021 12:44-0500 Body height 157.48 cm AlbertinaThe [employer] Work Phone[facility] 600 [facility] Work Phone: 07-22-2021 12:44-0500 Body mass index (BMI) [Ratio] 34.39 kg/m2 Albertina Differentials Work Phone: [facility] 600 DO Work Phone: 07-22-2021 12:44-0500 Body surface area Derived from formula 1.86 m2 Albertina Differentials Work Phone: [facility] [employer] 600 DO Work Phone: 07-22-2021 12:44-0500 Body weight 85.28 kg Albertina R [employer] Work Phone: [facility] 600 DO Work Phone: 07-22-2021 12:44-0500 Diastolic blood pressure 84 mm[Hg] Albertina R Kuns Work Phone: [facility] 600 DO Work Phone: 07-22-2021 12:44-0500 Heart rate 80 /min Albertina R Kuns Work Phone: [facility] 600 DO Work Phone: 07-22-2021 12:44-0500 Systolic blood pressure 124 mm[Hg] Albertina R Kuns Work Phone: [facility] 600 DO Work Phone: 07-10-2021 14:08-0500 Body height 157.48 cm Albertina R Kuns Work Phone: [facility] 600 DO Work Phone: 07-10-2021 14:08-0500 Body mass index (BMI) [Ratio] 33.84 kg/m2 Albertina R Kuns Work Phone: [facility] 600 DO Work Phone: 07-10-2021 14:08-0500 Body surface area Derived from formula 1.85 m2 Albertina R Kuns Work Phone: [facility] 600 DO Work Phone: 07-10-2021 14:08-0500 Body weight 83.92 kg Albertina R Kuns Work Phone: [facility] 600 DO Work Phone: 07-10-2021 14:08-0500 Diastolic blood pressure 80 mm[Hg] Albertina R Kuns Work Phone: [facility] 600 DO Work Phone: 07-10-2021 14:08-0500 Heart rate 50 /min Albertina R Kuns Work Phone: [facility] 600 DO Work Phone: 07-10-2021 14:08-0500 Systolic blood pressure 126 mm[Hg] Albertina Baldemar [employer] Work Phone: [facility] 600 DO Work Phone: Encounters Encounter Date Encounter Type Care Provider Facility Start: 03-13-2024 ambulatory Glynn Vivar ty:CD:[id number] Start: 02-19-2024 End: 02-23-2024 Evaluation and management of inpatient PASCUAL-Neris Corona Facility:[facility] Start: 02-19-2024 Emergency department patient visit Rose Venturabridgette Facility:[facility] Start: 02-19-2024 End: 02-23-2024 Evaluation and management of inpatient Glynn Tipton AGNES [facility] Start: 08-19-2023 ambulatory Wendy Gold Facility:[facility] Start: 08-05-2023 End: 08-05-2023 Admission to same day surgery center Orestes JACQUES [facility] Start: 08-05-2023 End: 08-05-2023 ambulatory Orestes JACQUES Facility:[facility] Start: 08-04-2023 End: 08-04-2023 ambulatory Albertina Arndt Facility:[facility] Start: 08-04-2023 End: 08-04-2023 ambulatory DO Albertina Kuns Work Phone: [facility] Work Phone: Start: 08-04-2023 End: 08-04-2023 Patient encounter procedure DO Albertina Kuns Work Phone: [facility] [place] Work Phone: Start: 07-28-2023 End: 07-28-2023 Office outpatient visit 15 minutes Sterling Florian DO Work Phone: [facility] Comment on above: 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; S/P CABG x 4; Type 2 diabetes mellitus with other specified complication, with long-term current use of insulin ([facility]); Mixed hyperlipidemia; Primary hypertension; History of [place] (myocardial infarction) Start: 07-23-2023 End: 07-23-2023 ambulatory Orestes JACQUES Facility:[facility] Start: 07-23-2023 End: 07-23-2023 Patient encounter procedure Orestes JACQUES [facility] Start: 07-15-2023 End: 07-15-2023 ambulatory Orestes JACQUES Facility::[id number] Start: 07-02-2023 End: 07-02-2023 ambulatory Orestes JACQUES Facility:[facility] Start: 06-30-2023 Telephone encounter Albertina Arndt [facility] [place] Start: 06-30-2023 End: 06-30-2023 ambulatory Orestes JACQUES [facility] [employer] Other Start: 06-30-2023 End: 06-30-2023 Patient encounter procedure Orestes JACQUES [facility] Start: 06-21-2023 End: 06-21-2023 ambulatory Garrett Palmer Other [employer] Other Start: 06-21-2023 Telephone encounter Garrett Palmer [facility] Start: 06-10-2023 End: 06-10-2023 ambulatory Orestes JACQUES Facility:[facility] Start: 06-10-2023 End: 06-10-2023 Patient encounter procedure Orestes JACQUES [facility] Start: 06-08-2023 End: 06-08-2023 ambulatory Albertina Arndt Other [employer] Other Start: 10-10-2023 Telephone encounter Albertina Arndt [facility] Start: 05-27-2023 End: 06-02-2023 Evaluation and management of inpatient Paola Woods Facility:[facility] Start: 05-26-2023 End: 06-02-2023 Evaluation and management of inpatient Paola Woods [facility] Start: 05-25-2023 End: 05-25-2023 ambulatory Glynn DENT Facility:[facility] Start: 05-25-2023 End: 05-25-2023 Patient encounter procedure Glynn DENT [facility] Start: 05-24-2023 ambulatory Wendy SantiagoSharyn Asif Facility:[facility] [place] Start: 05-17-2023 Telephone encounter Albertina Arndt [facility] Start: 05-17-2023 End: 05-17-2023 ambulatory Glynn DENT [facility] [employer] Other Start: 05-17-2023 End: 05-17-2023 Patient encounter procedure Glynn DNET [facility] Start: 05-09-2023 End: 05-11-2023 ambulatory Margareth DANIELS Facility:[facility] Start: 05-09-2023 End: 05-11-2023 Observation [facility] Start: 03-29-2023 Documentation procedure Mammog elvia Coordinator [facility] Start: 03-29-2023 Letter encounter Mammography Coordinator [facility] Start: 03-26-2023 End: 03-26-2023 ambulatory ALBERTINA LAMAR [employer] [facility] [employer] Other Start: 03-26-2023 Telephone encounter Albertina Arndt [facility] Start: 03-26-2023 End: 03-26-2023 Subsequent hospital visit by physician Screen/Diag Mammo [facility] 3 Work Phone: [facility] Radiology Mammography Comment on above: Z12.31 ENCOUNTER SCR EENING MAMMOGRAM FOR BREAST CANCER Start: 11-24-2022 Telephone encounter Albertina PELAYO [facility] [place] Start: 11-24-2022 End: 11-24-2022 ambulatory DO Albertina Arndt Work Phone: [facility] Work Phone: Start: 11-24-2022 End: 11-24-2022 Patient encounter procedure DO Albertina Arndt Work Phone: [facility] [place] Work Phone: Start: 11-17-2022 End: 11-17-2022 Patient encounter procedure Wendy Gold [facility] Start: 11-13-2022 End: 11-14-2022 Emergency department patient visit Blaire Myers [facility] Start: 10-29-2022 End: 10-29-2022 Patient encounter procedure Wendy Gold [facility] Start: 10-14-2022 End: 10-14-2022 Patient encounter procedure Wendy Gold [facility] Start: 08-19-2022 End: 08-19-2022 Patient encounter procedure Wendy Gold [facility] Start: 07-29-2022 Office outpatient vi sit 15 minutes Albertina Arndt Work Phone: [facility] 250 DO Work Phone: Start: 07-29-2022 ambulatory Albertina Arndt Facili ty: Start: 07-13-2022 End: 07-13-2022 Patient encounter procedure Wendy Danielsayse [facility] [place] Start: 07-06-2022 End: 07-06-2022 Patient encounter procedure Orestes JACQUES [facility] Start: 06-17-2022 End: 06-19-2022 Evaluation and management of inpatient Orestes JACQUES [facility] Start: 06-08-2022 End: 06-08-2022 Patient encounter procedure Wendy SantiagoSharyn Asif [facility] Start: 04-02-2022 Rx Renewal Albertina Arndt Work Phone: [facility] [employer] DO Work Phone: Start: 02-02-2022 End: 02-02-2022 Patient encounter procedure Feroz Cotton [facility] Start: 01-28-2022 Documentation procedure Mammog elvia Coordinator [facility] Start: 01-28-2022 Letter encounter Mammography Coordinator [facility] Department Start: 01-28-2022 End: 01-28-2022 Subsequent hospital visit by physician Screen Mammo [facility] Start: 12-26-2021 Rx Renewal Albertina Arndt Work Phone: [facility] [employer] 250 DO Work Phone: Start: 12-17-2021 End: 12-17-2021 ambulatory Albertina Arndt Other [employer] Other Start: 12-17-2021 Telephone encounter Albertina Arndt [facility] Start: 12-10-2021 End: 12-10-2021 Patient encounter procedure Feroz Cotton [facility] Start: 11-26-2021 End: 11-26-2021 Patient encounter procedure Wendy Gold [facility] [place] Start: 11-24-2021 End: 11-24-2021 Patient encounter procedure Feroz Cotton [facility] Start: 11-17-2021 End: 11-17-2021 Patient encounter procedure Wendy Gold [facility] Start: 10-15-2021 Telephone encounter Albertina talbert Work Phone: [facility] [employer] 250 DO Work Phone: Start: 10-07-2021 End: 10-08-2021 ambulatory WENDY GOLD . Facility:[facility] Start: 10-06-2021 End: 10-06-2021 ambulatory Albertina Arndt Other [facility] [employer] Other Start: 10-06-2021 Telephone encounter Albertina Arndt [facility] Start: 09-19-2021 ambulatory Albertina Arndt Facili ty: Start: 09-08-2021 Rx Renewal Albertina Arndt Work Phone: [facility] [employer] 250 DO Work Phone: Start: 08-20-2021 End: 08-21-2021 ambulatory KANWAL THIBODEAUX Facility:[facility] Start: 08-08-[address] STERLING FLORIAN Fa cility:[facility] Start: 07-22-2021 EPV, Provider: Kanwal Shah, Status: Pen, Time: 12:30 PM Albertina R Kuns Work Phone: [facility] 250 DO Work Phone: Start: 07-22-2021 Office outpatient vi sit 15 minutes Albertina R Kuns Work Phone: [facility] 600 DO Work Phone: Start: 07-21-2021 Chart Update Albertina R Kuns Work Phone: [facility] 250 DO Work Phone: Start: 07-16-2021 NURSEVST, Provider: SILVIANO HOUSTON BURLAP SPREADER 1,[id number], Status: Pen, Time: 1:30 PM Albertina R Kuns Work Phone: [facility] 250 DO Work Phone: Start: 07-14-2021 Chart Update Albertina R Kuns Work Phone: [facility] 250 DO Work Phone: Start: 07-10-2021 Office outpatient vi sit 25 minutes Albertina R Kuns Work Phone: [facility] 250 DO Work Phone: Start: 07-10-2021 Patient encounter procedure Albertina R Kuns Work Phone: [facility] 600 DO Work Phone: Start: 06-12-2021 Telephone encounter Albertina PELAYO [facility] [place] Start: 07-07-2017 Ambulatory PROVIDER UNKNOWN Facili ty:[id number] Start: 04-22-2017 Ambulatory KANWAL MANN Facility: [id number] Start: 01-01-2004 Evaluation and manag ement of inpatient DO Albertinamal Shermans Work Phone: [facility] Work Phone: Procedures Date Procedure Procedure Detail Performing Clinician [...] Start: 08-14-2011 Colonoscopy Mammograph y Coordinator Appendectomy Albretina Arndt Work Phone: Appendectomy Wendy Lue CABG Albertina Arndt Work Phone: Cath Atherectomy 1 W ith Stent Placement Albertina Arndt Work Phone: section Albertinamal Sherman s Work Phone: Comment on above: x2; section Wendy Gold Colonoscopy Albertina Arndt Work Phone: Comment on above: [id number] C linic; Coronary artery bypa ss graft operation planned Wendy Gold History of coronary artery bypass grafting S/P CABG x 4 Albertina R Hair Work Phone: History of coronary artery bypass grafting S/P CABG x 4 Sterling Florian Work Phone: History of percutane ous transluminal coronary angioplasty History of PTCA Albertina R Hair Work Phone: Lithotripsy Albertina R Hair Work Phone: Screening for malign ant neoplasm of breast Albertinamal Arndt Other Screening for malign ant neoplasm of breast Albertinamal Arndt Other Transurethral cystoscopy Joao JACQUES Comment on above: With left stent satsih terrell, ureteroscopy, laser stone basket Plan of Treatment Date Care Activity Detail Author Start: 11-13-2032 DTaP/Tdap/Td Vaccines (2 - Td or Tdap) DTaP/Tdap/Td Vaccines (2 - Td or Tdap) [facility] Start: 04-07-2025 DIABETES SCREEN DIABETES SCREEN [facility] Start: 04-07-2025 Diabetes Screening Diabetes Screening [facility] Start: 03-26-2024 Mammography [facility] Start: 03-26-2024 Screening for malignant neoplasm of breast Mammogram [facility] Start: 07-28-2023 End: 07-28-2024 Alanine aminotransferase [Enzymatic activity/volume] in Serum or Plasma by With P-5'-P Alanine Aminotransferase Lab Routine Mixed hyperlipidemia Expected: 07/28/2023 (Approximate), Expires: 07/28/2024 [facility] Service Area Work Phone: Comment on above: Expected: 07/28/2023 (Approximate), Expi res: 07/28/2024 Start: 07-28-2023 End: 07-28-2024 Aspartate aminotransferase [Enzymatic activity/volume] in Serum or Plasma by With P-5'-P Aspartate Aminotransferase Lab Routine Mixed hyperlipidemia Expected: 07/28/2023 (Approximate), Expires: 07/28/2024 [facility] Work Phone: Comment on above: Expected: 07/28/2023 (Approximate), Expi res: 07/28/2024 Start: 07-28-2023 End: 07-28-2024 Lipid 1996 panel - Serum or Plasma Lipid Panel Lab Routine Mixed hyperlipidemia Expected: 07/28/2023 (Approximate), Expires: 07/28/2024 [facility] Work Phone: Comment on above: Expected: 07/28/2023 (Approximate), Expi res: 07/28/2024 Start: 07-28-2023 FUV, Provider: Sterling Florian, Status: Pen, Time: 10:40 AM FUV, Provider: Sterling Florian, Status: Pen, Time: 10:40 AM -[facility] [employer] 250 DO Work Phone: Start: 04-30-2023 Covid-19 Vaccine ( season) Covid-19 Vaccine ( season) [facility] Start: 04-30-2023 Influenza vaccination [facility] Start: 01-28-2023 Mammography MAMMOGRAM [facility] Start: 11-24-2022 Bacteria identified in Urine by Culture Urine Culture [facility] Start: 08-30-2022 ADVANCE DIRECTIVE DISCUSSION ADVANCE DIRECTIVE DISCUSSION [facility] Start: 08-30-2022 DEPRESSION ASSESSMENT DEPRESSION ASSESSMENT [facility] Start: 08-09-2022 Glaucoma screening Diabetes: Retinopathy Screening [facility] Start: 06-11-2022 Echocardiography Echocardiogram [facility] Start: 05-12-2022 FUV, Provider: Sterling Florian, Status: Pen, Time: 10:15 AM FUV, Provider: Sterling Florian, Status: Pen, Time: 10:15 AM -[facility] 600 DO Work Phone: Start: 04-30-2022 Influenza vaccination INFLUENZA (Season Ended) [facility] Start: 01-23-2022 COVID-19 VACCINE (4 - Booster for Moderna series) COVID-19 VACCINE (4 - Booster for Moderna series) [facility] Start: 11-20-2021 COVID-19 VACCINE (4 - Moderna series) COVID-19 VACCINE (4 - Moderna series) [facility] Start: 08-30-2021 ADVANCE DIRECTIVE DISCUSSION ADVANCE DIRECTIVE DISCUSSION [facility] Start: 07-22-2021 EPV, Provider: Kanwal Shah, Status: Pen, Time: 12:30 PM EPV, Provider: Kanwal Shah, Status: Pen, Time: 12:30 PM -[facility] 600 DO Work Phone: Start: 07-16-2021 NURSEVST, Provider: SILVIANO HOUSTON [employer] SPREADER [id number], Status: Pen, Time: 1:30 PM NURSEVST, Provider: SILVIANO HOUSTON [employer] SPREADER 1,[id number], Status: Pen, Time: 1:30 PM [facility] Work Phone: Start: 07-02-2021 Pneumococcal Vaccine: 65+ Years (2 - PPSV23 or PCV20) Pneumococcal Vaccine: 65+ Years (2 - PPSV23 or PCV20) [facility] Start: 02-12-2016 BONE DENSITY BONE DENSITY [facility] Start: 02-12-2016 Bone Density Screening Bone Density Screening [facility] Start: 02-12-2016 Pneumococcal Vaccine: 65+ (1 - PCV) Pneumococcal Vaccine: 65+ (1 - PCV) [facility] Start: 02-12-2016 PNEUMOCOCCAL: 65+ (1 - PCV) PNEUMOCOCCAL: 65+ (1 - PCV) [facility] Start: 08-14-2012 Colonoscopy COLONOSCOPY [facility] Start: 08-14-2012 COLORECTAL CANCER SCREENING COLORECTAL CANCER SCREENING [facility] Start: 12-14-2002 DIABETES SCREEN DIABETES SCREEN [facility] Start: 2001 SHINGRIX VACCINE (1 of 2) SHINGRIX VACCINE (1 of 2) [facility] Start: 2001 Zoster Vaccines (1 of 2) Zoster Vaccines (1 of 2) [facility] Start: 02-12-1996 COLOGUARD (FIT-DNA) COLOGUARD (FIT-DNA) [facility] Start: 02-12-[address] COLONOGRAPHY [facility] Start: 02-12-1996 FECAL OCCULT BLOOD FECAL OCCULT BLOOD [facility] Start: 02-12-1996 Lipid 1996 panel - Serum or Plasma Lipid Screening [facility] Start: 02-12-1996 LIPID SCREEN LIPID SCREEN [facility] Start: 02-12-1996 SIGMOIDOSCOPY SIGMOIDOSCOPY [facility] Start: 1970 Urine microalbumin profile [facility] Start: 1970 Urine screening for protein Diabetes: Urine Protein Screening [facility] Start: 1969 HEPATITIS C SCREENING HEPATITIS C SCREENING [facility] Start: 1969 Hepatitis C screening Hepatitis C Screening [facility] Start: 1963 Adult depression screening assessment DEPRESSION SCREENING [facility] Start: 1961 Diabetic foot examination Diabetes: Foot Exam [facility] Start: 1951 Creatinine measurement Creatinine Level [facility] Start: 1951 Hemoglobin A1c measurement Diabetes: Hemoglobin A1C [facility] Start: 1951 Lipid panel Lipid Panel [facility] Start: 1951 Medicare Annual Wellness Visit Medicare Annual Wellness Visit (AWV) [facility] Start: 1951 Potassium measurement Potassium Level [facility] Start: 1951 Screening for malignant neoplasm of colon [facility] Start: 1951 Screening for osteoporosis Bone Density Scan [facility] Start: 1951 Thyroid stimulating hormone measurement TSH Level [facility] Immunizations Immunization Date Immunization Notes Care Provider Fa cility 11-13-2022 tetanus toxoid, redu lakshmi diphtheria toxoid, and acellular pertussis vaccine, adsorbed Kaylinn Dokken [facility] Comment on above: Result Comment: LEFT DELTOID 09-25-2021 SARS-CoV-2 (COVID-19 ) mRNA-1273 vaccine Wendy Asif [facility] 05-07-2021 pneumococcal conjuga te vaccine, 13 valent Albertina Kuns Other [facility] 11-28-2020 COVID-19 Moderna Albertina Kuns Other [facility] Comment on above: Result Comment: 2021: [id number] 10-31-2020 COVID-19 Moderna Albertina Kuns Other [facility] Comment on above: Result Comment: 2021: [id number] 12-05-2018 zoster vaccine recombinant Albertina Kuns Other [facility] 12-05-2018 zoster vaccine, unspecified formulation Sterling Florian DO Work Phone: [facility] Work Phone: 08-08-2018 zoster vaccine recombinant Albertina Kuns Other [facility] 08-08-2018 zoster vaccine, unspecified formulation Sterling Florian DO Work Phone: [facility] Work Phone: 08-30-2003 influenza virus vaccine, unspecified formulation Albertina R Kuns Work Phone: [place] [address] DO Work Phone: Payers Date Payer Category Payer Unknown 2019 Unknown MMO MMO MEDICARE SUPPLEMENT [id number] 2019-Present [phone] [address] [place] [address] Indemnity [id number] 2016 Medicare MEDICARE RAILROA D MEDICARE RAILROAD PB ONLY [id number] 2016-Present [phone] [address] [address] [place] [address] Medicare [id number] 2016 Medicare [id number] 1959 Medicare [id number] 1959 Self-pay 1959 Unknown [id number] 1951 Unknown [id number] 2.16.840.1.076030.3.579.2.593 1951 Unknown [id number] 2.16.840.1.122840.3.579.2.593 1951 Unknown [id number] 2.16.840.1.814950.3.579.2.356 1951 Unknown [id number] 2.16.840.1.917210.3.579.2.356 1951 Unknown [id number] 2.16.840.1.478829.3.579.2.727 1951 Unknown [id number] 2.16.840.1.367619.3.579.2.727 1951 Unknown [id number] 2.16.840.1.696018.3.579.2.727 1951 Unknown [id number] 2.16.840.1.756193.3.579.2.727 1951 Unknown [id number] 2.16.840.1.707260.3.579.2.727 1951 Unknown [id number] 2.16.840.1.401934.3.579.2.727 1951 Unknown [id number] 2.16.840.1.663830.3.579.2.727 1951 Unknown [id number] 2.16.840.1.698052.3.579.2.727 1951 Unknown [id number] 2.16.840.1.245950.3.579.2.72 1951 Unknown [id number] 2.16.840.1.332003.3.579.2. 1951 Unknown [id number] 2.16.840.1.933308.3.579.2. 1951 Unknown [id number] 2.16.840.1.121233.3.579.2.72 1951 Unknown [id number] 2.16.840.1.643283.3.579.2. 1951 Unknown [id number] 2.16.840.1.986699.3.579.2. 1951 Unknown [id number] 2.16.840.1.280926.3.579.2 1951 Unknown [id number] 2.16.840.1.383675.3.579.2.72 1951 Unknown [id number] 2.16.840.1.288803.3.579.2.72 1951 Unknown [id number] 2.16.840.1.222359.3.579.2.72 1951 Unknown [id number] 2.16.840.1.557776.3.579.2.72 1951 Unknown [id number] 2.16.840.1.501380.3.579.2.72 1951 Unknown [id number] 2.16.840.1.434312.3.579.2.727 Medicare [id number] Unknown [id number] 2.16.840.1.411668.3.579.2.593 Unknown [facility] [id number] Unknown [id number] Social History Date Type Detail Facility Start: 10-06-2021 End: 07-27-2023 No illicit drug use No illicit drug use -[facility]ly [facility] 600 DO Work Phone: Tobacco [facility] Comment on above: Denies use. Start: 10-06-2021 End: 07-27-2023 Sex Assigned At Female [facility] [place] Other Start: 11-26-2021 End: 05-09-2023 Tobacco smoking status Never smoked tobacco (finding) [facility] Comment on above: Denies use. Tobacco smoking status Never [facility] Comment on above: Denies use. 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 (finding) [facility] Start: 1950 Sex Assigned At Not on file C [facility] Start: 1950 Sex Assigned At Female F [facility] Start: 03-27-2016 End: 07-27-2023 Tobacco use and exposure Smokeless tobacco non-user [facility] Start: 07-28-2023 Alcohol intake Lifetime non-d gisele (finding) [facility] Work Phone: Start: 07-18-2023 End: 07-28-2023 Exposure to SARS-CoV-2 (event) Not sure [facility] Medical Equipment Procedure Code Equipment Code Equipment Origin al Text Equipment Identifier Dates FDA Start: 10-01-2021 {[id number] [id number]{[id number] FDA Start: 10-21-2021 FDA Start: 10-01-2021 FDA [...] Start: 10-01-2021 CYSTOSCOPY RETROGRADE STENT INSERTION Orestes JACUQES MD 06/17/22 Unknown Ureter R FDA Start: 06-17-2022 CYSTOSCOPY RETROGRADE STENT INSERTION Unknown 10/01/21 Unknown Unknown FDA Start: 10-01-2021 CYSTOSCOPY RETROGRADE STENT INSERTION Orestes JACQUES MD 06/17/22 Unknown Ureter R FDA Start: 06-17-2022 CYSTOSCOPY RETROGRADE STENT INSERTION Unknown 10/01/21 Unknown Unknown FDA Start: 10-01-2021 CYSTOSCOPY RETROGRADE STENT INSERTION Orestes JACQUES MD 06/17/22 Unknown Ureter R FDA Start: 06-17-2022 {[id number]{1 [id number]{[id number] FDA Start: 05-09-2023 End: 05-27-2023 CYSTOSCOPY RETROGRADE [...] 02/20/24 Unknown Ureter R FDA Start: 02-20-2024 Functional Status Date Assessment Result Facility 02-19-2024 Functional Status N/A [facility] 02-19-2024 Functional Status [facility] 07-29-2023 Functional Status No [facility] 05-27-2023 Functional Status No [facility] 05-26-2023 Functional Status [facility] 05-25-2023 Functional Status N/A [facility] 05-09-2023 Functional Status N/A [facility] 05-09-2023 Functional Status [facility] 11-13-2022 Functional Status N/A [facility] 10-29-2022 Functional Status N/A [facility] 07-13-2022 Functional Status N/A [facility] 07-02-2022 Functional Status N/A [facility] 06-17-2022 Functional Status No [facility] 06-17-2022 Functional Status [facility] Clinical Notes 12-28-2009 to 02-23-2024 Note Date & Type Note Facility 02-23-2024 Evaluation + Plan note Extrac alexander from: Title:Discharge Note Author:Jhonny Barrett DO Date:02/23/24 [...] office for follow-up Additional Instructions: ALBERTINA ARNDT [address] [place] [id number] Business (1) Additional Instructions: Doctor's office will call [...] artery disease (I25.10: Atherosclerotic heart disease of kenaitze coronary artery without angina pectoris) History of coronary artery bypass grafting 3+ years ago at the [facility] Asymptomatic 10. Thrombocytopenia (D69.6: Thrombocytopenia, unspecified) Stable 11. [...] artery disease (I25.10: Atherosclerotic heart disease of kenaitze coronary artery without angina pectoris) History of coronary artery bypass grafting 3 to 6 years ago at the [facility] No symptomatology 10. Thrombocytopenia (D69.6: Thrombocytopenia, unspecified) [...] artery disease (I25.10: Atherosclerotic heart disease of kenaitze coronary artery without angina pectoris) Patient states she had coronary artery bypass grafting x 3 6 years ago at the [facility] she denies any recent dyspnea on [...] Future Scheduled Tests Radiology* CTA Abdomen 01/24/24 [facility]06-26-2024 NoteAdmission and Discharge Information Admit Date/Time:02/19/2024 19:31 [...] tab(s), Oral, BID Klor-C (more content not included)...[facility]Result Comment: Electronically Signed By: Jhonny Barrett DO\.hector\Date and Time Signed: 02/23/24 11:39 [id number] Hospital Discharge instructions Patient Education 02/22/2024 08:54:40 [...] hot dog bun (1 ounce) 3/4 cup qqvil-tu-omi cereal 1/2 cup cooked cereal 1 cup [...] surgery that is planned. With:ALBERTINA ARNDT Address: [address] [place] [address] [facility] (1) When: Unknown Comments:Doctor's office will call patient for hosptial follow up appointment. [facility]06-22-2024 NoteBasic Information Admit Date/Time:02/19/2024 19:31 Chief Complaint [...] suggested that 2 weeks earlier in the p atient required left ureteral dilation lithotripsy [...] she states 6 years ago at the [facility]. She was uncertain but believes she [...] expressed interest in eating. Per the emergency supervisor jewelry department Dr. Dent was contacted patient was given [...] hematuria, Musculoskeletal: no back (more content not included)...[facility] HospitalComment on above:Result Comment: Electronically Signed By: Glynn ALARCON DO\Date and Time Signed: 02/19/24 21:53 [id number] Note [id number] [facility] 08-05-2023 Hospital Discharge instructions Patient Education 08/05/2023 15:40:57 Post Op Patient Instructions - FT (Custom) (CUSTOM) 08/05/2023 15:06:29 Fjyy-Ysti-lz Utereroscopy,Lithotripsy, Stone Extraction, Stent Placement (Custom) [facility] [place], [place] Dr. Orestes Grant Post-operative Instructions for [...] other reasons. 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 [facility]12-04-2023 Note [id number] [facility] 07-28-2023 History of Present illness Narrative* Sterling Florian, DO - 07/28/2023 10:40 AM EST Subjective Shahana Grace is a 73 y.o. female Chief Complaint Annual Exam 73-year-old female returns for annual follow-up and is doing well without any cardiovascular events, symptoms or nitrate usage or hospitalizations. She suffered an inferior [place] in 2015 with primary revascularization of the [...] Assessment/Plan No diagnosis found. documented in this encounterOhio[facility] Work Phone: [phone]) 700-403611-29-2023 Instructions* Patient Instructions* Nishant Zapien MA - [...] time of your visit. documented in this encounterOhio[facility] Hospital Work Phone: 1(602) 384-279410-04-2023 [facility] CenterComment on [facility]:Result Comment: Electronically Signed By: Jhonny Barrett DO\.br\Date and Time Signed: 06/02/23 17:06 [id number] Evaluation + Plan noteExtracted from: Title:Discharge Note Author:Jhonny Barrett DO Date:06/02/23 stable Discharge To, Anticipated II - Home with home health Discharged to - Home independently Transported by, Anticipated - Family [facility] Discharge Diet(s): Calorie Controlled- 1800 Calorie [...] IV Fluconazole With When Contact Information ALBERTINA ARNDT [address] [place], [place] [id number] Business (1) Additional Instructions: Call for followup [...] the left 05/27/2023. Urine culture from the th is growing Anastacia albicans and blood cultures the th are growing Anastacia albicans as well. Comorbidities [...] artery disease (I25.10: Atherosclerotic heart disease of kenaitze coronary artery without angina pectoris) Maintain Plavix and metoprolol 15. Hyperlipidemia (E78.5: Hyperlipidemia, unspecified) Statin therapy with Lipitor 16. Obesity due to excess calories (E66.09: Other obesity due to excess calories) 17. On deep vein thrombosis (DVT) prophylaxis (Z79.899: Other mcfp (current) drug therapy) Hydronephrosis with ureteral calculus [...] artery disease (I25.10: Atherosclerotic heart disease of kenaitze coronary artery without angina pectoris) Maintain Plavix and metoprolol 15. Hyperlipidemia (E78.5: Hyperlipidemia, unspecified) Statin therapy with Lipitor 16. Obesity due to excess calories (E66.09: Other obesity due to excess calories) Therapeutic lifestyle modification changes in the outpatient setting 17. 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 Infectious disease consulted. Ordered: [facility] Hospital Care/Day Moderate 35 Minutes 57686 2. Fungemia (B49: Unspecified mycosis) Present on admission secondary to fungi urinary tract infection/UPJ stone. Infectious disease consulted. I spoke with infectious disease specialist patient will require IV antifungal x2 weeks. Patient will require PICC line eventually when repeat blood culture is negative. I ordered repeat blood culture. Ordered: [facility] Hospital Care/Day Moderate 35 Minutes 25850 3. Acute UTI (urinary tract infection) (N39.0: [...] infection and in keeping with fungemia. Ordered: [facility] Hospital Care/Day Moderate 35 Minutes 51098 4. GIOVANNY (acute kidney injury) (N17.9: Acute kidney failure, unspecified) Secondary to ATN from sepsis and urinary tract obstruction. Resolved. At baseline.. Treated with IV fluid. Avoid nephrotoxic drugs. Ordered: eGFR Extra Lav Tube [facility] Hospital Care/Day Moderate 35 Minutes 15393 5. Left renal stone (N20.0: Calculus of kidney) Left UPJ stone present on admission. Status post JJ stent placement. Follow-up with urologist for outpatient treatment of stone. Ordered: [facility] Hospital Care/Day Moderate 35 Minutes 67897 6. Hydronephrosis of left kidney (N13.30: Unspecified [...] artery disease (I25.10: Atherosclerotic heart disease of kenaitze coronary artery without angina pectoris) Stable. Continue on Plavix and metoprolol 15. Hyperlipidemia (E78.5: Hyperlipidemia, unspecified) On Lipitor. 16. Obesity due to excess calories (E66.09: Other obesity due to excess calories) Recommend therapeutic lifestyle modification changes. 17. On deep vein thrombosis (DVT) prophylaxis (Z79.899: Other mcfp (current) drug therapy) SCDs. Disposition: Home early [...] made to ensure accuracy. However inadvertent computerized steeping press operator errors may be present. Felice Marx. Hospitalist. [...] POC Extracted from: Title:APSO Note Author:ISHAN CHISHOLM, Phyllisanefo [...] IV fluid, IV antibiotics. Follow cultures. Ordered: [facility] Hospital Care/Day Moderate 35 Minutes 62551 2. Acute UTI (urinary tract infection) (N39.0: Urinary tract infection, site not specified) Staphylococcus coagulase-negative urinary tract infection secondary to retained stone. Present on admission. Continue on IV Zosyn pending final urine culture result. Ordered: [facility] Hospital Care/Day Moderate 35 Minutes 89296 3. GIOVANNY (acute kidney injury) (N17.9: Acute kidney failure, unspecified) Acute kidney injury secondary to ATN from above sepsis and urinary tract obstruction. Improving. Avoid nephrotoxic drugs. Treating with IV fluid. Ordered: Basic Metabolic Panel eGFR [facility] Hospital Care/Day Moderate 35 Minutes 12526 4. Left renal stone (N20.0: Calculus of kidney) Left UPJ stone present on admission. Status post JJ stent placement. Follow-up with urologist for outpatient treatment of stone. Ordered: [facility] Hospital Care/Day Moderate 35 Minutes 57955 5. Hydronephrosis of left kidney (N13.30: Unspecified hydronephrosis) Mild left hydronephrosis. Status post JJ stent placement. Or[facility]: [facility]Day Moderate 35 Minutes 29213 6. Hypokalemia (E87.6: Hypokalemia) Potassium level 3.4. [...] artery disease (I25.10: Atherosclerotic heart disease of kenaitze coronary artery without angina pectoris) Stable. Continue on Plavix and metoprolol. 13. Hyperlipidemia (E78.5: Hyperlipidemia, unspecified) On Lipitor. 14. Obesity due to excess calories (E66.09: Other obesity due to excess calories) Recommend therapeutic lifestyle modification changes. 15. On deep vein thrombosis (DVT) prophylaxis (Z79.899: Other rat exterminator (current) drug therapy) SCDs. Disposition: Hopefully home in a.m. pending final urine culture result. Physical therapy evaluation for discharge planning. I discussed the diagnosis and plan of care with the patient at the bedside. Moderate level of MDM based on addressing above issues. This documentation was transcribed using voice recognition software. Several attempts were made to ensure accuracy. However inadvertent computerized steeping press operator errors may be present. Felice Marx. Hospitalist. Orders: clopidogrel, 75 mg = 1 tab(s), Tab, Oral, MonTuWeThFr, NOW, Start date 05/28/23 9:58:00 EDT Sodium [...] Zyvox and Zosyn. Extracted from: Title:APSO Note Author:Felice MARX MD Date: 73-year-old female with history of coronary [...] with coronary artery disease. Follow cultures. Ordered: [facility] Hospital Care/Day High 50 Minutes 10145 2. Acute UTI (urinary tract infection) (N39.0: Urinary tract infection, site not specified) Acute urinary tract infection secondary to retained stone. Continue on IV Zosyn pending final urine culture result. Ordered: [facility] Hospital Care/Day High 50 Minutes 33050 3. GIOVANNY (acute kidney injury) (N17.9: Acute kidney failure, unspecified) Acute kidney injury secondary to ATN from above sepsis and urinary tract obstruction. Avoid nephrotoxic drugs. Continue on IV fluid. BMP in AM. Ordered: Basic Metabolic Panel [facility] Hospital Care/Day High 50 Minutes 91266 4. Left renal stone (N20.0: Calculus of kidney) Left UPJ stone present on admission. Status post cystoscopy with JJ stent placement. Urology consult reviewed by me. I appreciate and agree with recommendations. Follow-up with urologist as outpatient for stone treatment. Ordered: [facility] Hospital Care/Day High 50 Minutes 68199 5. Hydronephrosis of left kidney (N13.30: Unspecified hydronephrosis) Mild left hydronephrosis secondary to above #4. Status post JJ stent placement. Ordered: [facility] Hospital Care/Day High 50 Minutes 25678 6. Leukocytosis (D72.829: Elevated white blood cell [...] artery disease (I25.10: Atherosclerotic heart disease of kenaitze coronary artery without angina pectoris) Continue on Plavix, metoprolol. 11. Hyperlipidemia (E78.5: Hyperlipidemia, unspecified) On Lipitor. 12. Obesity due to excess calories (E66.09: Other obesity due to excess calories) Recommend therapeutic lifestyle modification changes. 13. On deep vein thrombosis (DVT) prophylaxis (Z79.899: Other rat exterminator (current) drug therapy) SCDs. I discussed the diagnosis and plan of care with the patient at the bedside. High Level of MDM based on addressing above issues. This documentation was transcribed using voice recognition software. Several attempts were made to ensure accuracy. However inadvertent computerized steeping press operator errors may be present. Felice Marx. Hospitalist. [...] Post Op - General Author:MD Ingrid , [facility] Date:05/27/23 Plan Transfer/Discharge: Transfer/Discharge Discharge when meets criteria ( To home ). Extracted from: Title:Urology Consult and H&P 2 Author:Orestes JACQUES MD P Date:05/27/23 Impression and Plan Diagnosis Acute sepsis (YPS81-XS A41.9, Working, Medical). Acute UTI (urinary tract infection) (CQR86-PO N39.0, Discharge, Medical). GIOVANNY (acute kidney injury) (QIC61-FZ N17.9, Discharge, Medical). Hydronephrosis with ureteral calculus (YUV94-RE N13.2, Working, Medical). Obesity due to excess calories (LTJ70-XB E66.09, Discharge, Medical). Course: Worsening, Discussed with [...] Op - Adult General Author:Alan souza MD, Jossy Greene Date:05/27/23 Plan [place] [employer] Anesthesiologists (ASA) physical status classification: [...] artery disease (I25.10: Atherosclerotic heart disease of kenaitze coronary artery without angina pectoris) Hold Plavix, Metoprolol, Lisinopril. 7. Hyperlipidemia (E78.5: Hyperlipidemia, unspecified) Hold Lipitor 8. Obesity due to excess calories (E66.09: Other obesity due to excess calories) BMI 37 Extracted from: Title:ED Note Author:Blaire Myers DO Date :05/26/23 Acute UTI (urinary tract inf [...] Date:08/19/2023 01:15:00 PM Scheduled Provider:Wendy Gold MD Location:[facility] Appointment Type:URO Office Visit Future Scheduled Tests Laboratory* Basic Metabolic Panel 06/26/22 Radiology* XR Abdomen 1 View 05/28/23 * CTA Abdomen 01/24/24 [facility]10-04-2023 Hospital Discharge instructions Patient Education 06/02/2023 11:27:12 [...] Treatment for this condition includes: Antibiotic medicine. Cbjs-xle-ogkygjx medicines to treat discomfort. Drinking enough water [...] Follow these instructions at home: Medicines Take adgr-rkc-tdxxgzk and prescription medicines only as told by [...] provider. Document Revised: 03/28/2021 Document Reviewed: 03/28/2021 [employer] Patient Education 2022 [employer]. 06/02/2023 11:27:01 Sepsis, Self Care, Adult Sepsis, [...] Follow these instructions at home: Medicines Take ygbi-aya-olewdgh and prescription medicines only as told by [...] and water are not available, use hand clinical abstractor. Practice good hygiene. Keep cuts clean and [...] right away. Call your local emergency services (427 in the [place] Do not drive yourself to the hospital. If you ever feel like you may hurt yourself or others, or have thoughts about taking your own life,get help right away. Go to your nearest emergency department or: Call your local emergency services (209 in the [place] Call a suicide crisis helpline, such as the National Suicide Prevention Lifeline at or 052 in the [place] This is open 24 hours a day. Text the Crisis Text Line at 747612 (in the [place] Summary Sepsis is a [...] provider. Document Revised: 03/11/2022 Document Reviewed: 06/30/2021 [employer] Patient Education 2022 [employer]. Follow Up Care 05/26/2023 15:42:08 With:ALBERTINA ARNDT Address: [address] [place] [phone]- Business (1) When: Unknown Comments:Call for followup appointment [facility]10-04-2023 NotePatient provided discharge education and instructions on right midline. Report called to Kalpana RN at [facility]. Pt denies any questions at this time. Pt transported to patient pickup via wheelchair.[facility]09-[facility]-2023 [facility] CenterComment on above:Result Comment: Electronically Signed By: Chuck CHISHOLM, Paola\.br\Date and Time Signed: 05/27/23 02:02 [id number] Hospital Discharge instructions Patient Education 05/25/2023 09:21:01 [...] DENT Address: [facility] [address] [place] [address]- Business (1) When:08/24/2023 09:20:42 Comments:Follow-up is to be with Dr. Castro [facility]09-26-2023 Note [id number]:127[facility] 05-[facility] Evaluation + Plan noteExtracted from: Title:Discharge [...] Oral, MonTuThFrSaSu With When Contact Information Glynn JAILENE 05/17/2023 01:30 PM EDT [facility] [address], [place] [address]- Business (1) Additional Instructions: ALBERTINA ARNDT 05/17/2023 09:30 AM EDT [address] [place] [phone]- Business (1) Additional Instructions: Extracted from: Title:APSO [...] Stone basket extraction. 6. Placement of 6 Swazi variable length left ureteral stent. with Dr. 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 (I25.10: Atherosclerotic heart disease of kenaitze coronary artery without angina pectoris) Resume Lopressor [...] Date:05/17/2023 01:30:00 PM Scheduled Provider:Glynn DENT MD Location:[facility] Appointment Type:URO Office Visit Appointment Date:05/24/2023 01:45:00 PM Scheduled Provider:Wendy Gold MD Location:[facility] Appointment Type:URO Office Visit Diagnostic Tests Pending * Calculi Analysis Urinary 05/09/23 Future Scheduled Tests Laboratory* Basic Metabolic Panel 06/26/22 Radiology* CTA Abdomen 01/24/24 [facility]09-12-2023 NoteCRM entered the room to discuss dc planning. PCP, DME and insurance discussed. Patient is alert andinvolved in plan of care. Contact information provided and whiteboard updated. Pt will dc today no needs. CRM to follow.[facility] HospitalComment on above:Result Comment: Electronically Signed By: Rayne Carpenter\.br\Date and Time Signed: 05/11/23 13:40 [id number] Hospital Discharge instructions Follow Up Care 05/11/2023 08:20:52 With:JAILENE CHISHOLM, Glynn Mcdermott, URL Address: [facility] [address], [place] [address]- [phone] When: Unknown [facility] 09-12-2023 NoteAdams County HospitalComment on above:Result Comment: Electronically Signed By: ROSEMARY CHISHOLM, Ck\.br\Date and Time Signed: 05/11/23 08:39 [id number] NoteAttempted PT Evaluation, but pt reports she is still Independent but performs slowly . Pt denies needing PT services. No evaluation givenAdams County Hospital09-10-2023 [facility] CenterComment on above:Result Comment: Electronically Signed By: JEREMIAH CHISHOLM, Margareth\.br\Date and Time Signed: 05/09/23 12:[id number] Hospital Discharge instructions Follow Up Care 05/09/2023 08:14:22 With:ALBERTINA ARNDT Address: [address] [place] [phone]- Business (1) When:05/17/2023 09:30:00 With:Glynn DENT Address: [facility] [address] [place] [address]- Business (1) When:05/17/2023 13:30:00 [facility]07-31-2023 Miscellaneous Notes* Letter - Coordinator, Mammography - 03/29/2023 8:29 AM EDT March 30, 2023 PID: [id number] Shahana Grace [address] [place] [address] Dear Ms. Grace, We are pleased to [...] report will be kept on file at [facility] as part of your permanent medical record and are available for your continuing care. Thank you for allowing us to help in meeting your health care needs. Sincerely, Dr. Costa Interpreting Radiologist [facility] (Normal over 40) documented in this encounterMercy [facility] Hospital07-28-2023 NoteHNO ID: [id number] Author: Izabela Cardona I RT(R) Service: Radiology Author Type: Technologist Type: [...] BY: RT Mar(R) March 26, 2023 1:50 [facility] [id number] Evaluation note* Encounter Date Diagnosis Assessment Notes Treatment Notes Treatment Clinical Notes Feb, Encounter for screening mammogram for malignant neoplasm of breast (ICD-10 - Z12.31) [employer] Other 07-28-2023 History of Present illness Narrative* Izabela Cardona [...] 26, 2023 1:50 PM [facility]* Encounter Date Diagnosis Assessment Notes Treatment Notes Treatment Clinical Notes Oct, Urinary tract infection, site not specified (ICD-10 - N39.0) Oct, Hematuria, unspecified (ICD-10 - R31.9) [employer] Other 03-18-2023 Evaluation + Plan noteExtracted from: [...] day(s), # 15 cap(s), Refills(s) 0, Pharmacy: [id number], 157, cm, 11/13/22 23:40:00 EDT, Height/Length Dosing, 83.2, kg, 11/13/22 23:40:00 EDT, Weight Dosing cephalexin, 500 mg = 1 cap(s), Cap, Oral, Once, Stop date 11/14/22 2:04:00 EDT, STAT, Start date 11/14/22 2:04:00 EDT, 11/14/22 2:04:00 EDT meclizine, 12.5 mg = 1 tab(s), Oral, TID, PRN for dizziness, # 15 tab(s), Refills(s) 0, Pharmacy: [facility], 157, cm, 11/13/22 23:40:00 EDT, Height/Length [...] 500 mL, Soln-IV, IV, Once, Stop date 03/17/23 23:33:00 EDT, STAT, Start date 11/13/22 23:33:00 [...] Appointments Appointment Date:11/17/2022 10:00:00 AM Scheduled Provider: [facility] Appointment Type:US Abdominal/Pelvis () Appointment Date:02/08/2023 12:30:00 PM Scheduled Provider:Asif CHISHOLM, [place] Location:[facility] Appointment Type:URO Office Visit Diagnostic Tests Pending * Urine Culture 11/14/22 Future Scheduled Tests Laboratory* PTH Intact 11/28/22 * Basic Metabolic Panel 06/26/22 * Basic Metabolic Panel 11/28/22 * Uric Acid 11/28/22 Radiology* XR Abdomen 1 View 11/17/21 * XR Abdomen 1 View 12/12/22 * US Renal 11/17/22 * CTA Abdomen 01/24/24 [facility]03-18[facility]23 Hospital Discharge instructions Patient Education 11/14/2022 02:43:38 Vertigo, Cdxr-nw-Boao Vertigo Vertigo is the feeling that you [...] if you feel dizzy. General instructions Take qeql-hku-depdaus and prescription medicines only as told by [...] 05/25/2009 Document Revised: 07/10/2019 Document Reviewed: 07/10/2019 [employer] Patient Education 2020 [employer]. 11/14/2022 02:43:38 Urinary Tract Infection, Adult, Drnb-mb-Xlre Urinary Tract Infection, Adult A urinary tract [...] Follow these instructions at home: Medicines Take aozd-kmr-rgjminy and prescription medicines only as told by [...] 02/01/2009 Document Revised: 08/03/2019 Document Reviewed: 02/23/2019 [employer] Patient Education 2020 [employer]. 11/14/2022 02:43:38 Head Injury, Adult, Tcga-dc-Jplk Head Injury, Adult There are many types [...] or school. Ask your doctor for a dgss-ob-wvwe plan for slowly going back to your [...] your friends, family, a trusted coworker, and fancy needleworker about your injury, symptoms, and limits (restrictions). Have them watch for any problems that are new or getting worse. General instructions Take zegi-yot-lwktuna and prescription medicines only as told by [...] 07/29/2009 Document Revised: 12/07/2019 Document Reviewed: 09/08/2019 [employer] Patient Education 2020 [employer]. 11/14/2022 02:43:38 Dehydration, Elderly, Fkvv-sv-Oryk Dehydration Dehydration is when there is not [...] a lot of fat or sugar. Take tvyz-syz-ixevlpf and prescription medicines only as told by [...] 08/04/2012 Document Revised: 07/29/2018 Document Reviewed: 10/09/2016 [employer] Patient Education 2020 [employer]. Follow Up Care 11/13/2022 23:08:03 With:ALBERTINA ARNDT Address: [address] [place], [place] [phone] Business (1) When:11/17/2022 Comments:Take the antibiotics 3 times [...] ED for any new or worsening symptoms. [facility]03-02-[facility]23 Hospital Discharge instructions Patient Education 10/29/2022 09:23:21 Kidney Stones, Epuk-qt-Esos Kidney Stones Kidney stones are rock-like masses [...] Follow these instructions at home: Medicines Take myuc-bnp-whoynqu and prescription medicines only as told by [...] 02/01/2009 Document Revised: 01/02/2020 Document Reviewed: 01/02/2020 [employer] Patient Education 2019 [employer] Follow Up Care 10/13/2022 15:07:33 With:Asif CHISHOLM, ONUR Julio, URO Address: When: Unknown [facility] 12-21-2022 Hospital Discharge instructions Patient Education 08/19/2022 12:09:01 Kidney Stones, Qpla-bh-Xvli Kidney Stones Kidney stones are rock-like masses [...] Follow these instructions at home: Medicines Take tcnz-dqz-kgakfev and prescription medicines only as told by [...] 02/01/2009 Document Revised: 01/02/2020 Document Reviewed: 01/02/2020 [employer] Patient Education 2020 [employer]. Follow Up Care 07/13/2022 14:03:46 With:Asif CHISHOLM, ONUR Julio, URO Address: [address] [place] [phone] When:Within 2 Month(s) [facility] 11-14-2022 Hospital Discharge instructions Patient Education 07/13/2022 [...] include: ?Spinach. ?Rhubarb. ?Beets. ?Potato chips and lao fries. ?Nuts. If you regularly take a diuretic medicine, make sure to eat at least 1 2 fruits or vegetables high in potassium each day. These include: ?Avocado. ?Banana. ?Ingham, prune, carrot, or tomato juice. ?Baked potato. [...] Casseroles. Pizza. Lasagna. Frozen meals. Potato chips. Swazi fries. Summary You can reduce your risk [...] 12/11/2011 Document Revised: 12/06/2019 Document Reviewed: 07/27/2017 [employer] Patient Education 2019 [employer]. Follow Up Care 11/26/2021 11:40:44 With:Asif CHISHOLM, Wendy [place] URL, URO Address: When: Unknown [facility] 11-07-2022 Hospital Discharge instructions Patient Education 07/06/2022 [...] already done so. Have a great day. [facility]10-21-2022 Evaluation + Plan noteExtracted from: Title:Discharge Note Author:JEREMIAH CHISHOLM, Margareth Crawley e:06/19/22 Good Discharge To, Anticipated II - [...] Daily With When Contact Information Orestes JACQUES [address] [place] [phone]- Business (1) Additional Instructions: scope and removal of the stent under local anesthesia within a couple weeks or so.This office will call you to schedule this. ALBERTINA LEXA[address] [phone]- Business (1) Additional Instructions: Only if needed. Renal Colic, Kkhz-ga-Arcl Lithotripsy Laser Therapy for Kidney Stones Kidney Stones, Ikuw-pu-Zood Dietary Guidelines to Help Prevent Kidney Stones Discharge time >30 min Extracted from: Title:ANES POSTOP Author:Johnny Bruce DO Date: 06/17/22 Plan Transfer/ Discharge: Patient can be discharged from PACU when criteria met. Condition good. Extracted from: Title:Urology Consult and H&P 2 Author:Orestes JACQUES MD Date:06/17/22 Impression and Plan Diagnosis Acute renal failure (JUL76-MS N17.9, Discharge, Medical). Hydronephrosis with ureteral calculus (MGM17-JO N13.2, Working, Medical). Kidney stones (ZZL41-YH N20.0, Working, Medical). Complaint of Flank pain (PNED [id number], Reason For Visit, Nursing). Leukocytosis (QCS90-XI D72.829, Discharge, Medical). UTI (urinary tract infection) (HZJ35-XR N39.0, Discharge, Medical). Course: Worsening, Reviewed CT [...] Title:ANES PREOP Author:Johnny Bruce DO Date: Plan [place] [employer]esthesiologists (ASA) physical status classification: [...] artery disease) (I25.10: Atherosclerotic heart disease of kenaitze coronary artery without angina pectoris) Continue Plavix Lopressor 9. Obesity (E66.9: Obesity, unspecified) Lifestyle modification 10. DVT prophylaxis (Z29.9: Encounter for prophylactic measures, unspecified) SCD Future Appointments Appointment Date:07/13/2022 01:00:00 PM Scheduled Provider:Wendy Gold MD Location:[facility] Appointment Type:URO Office Visit Diagnostic Tests Pending * Calculi Analysis Urinary 06/17/22 Future Scheduled Tests Laboratory* Basic Metabolic Panel 06/26/22 Radiology* XR Abdomen 1 View 11/17/21 * CV Peripheralvascular 10/14/21 * CTA Abdomen 01/24/24 [facility]10-[facility] Hospital Discharge instructions Patient Education 06/19/2022 10:34:29 Renal Colic, Wzjh-eq-Vmmy Renal Colic Renal colic is pain that is caused by a kidney stone. The pain can be sharp and very bad. It may befelt in the back, belly, side (flank), or groin. It can cause nausea. Renal colic can come and go. Follow these instructions at home: Medicines Take kfok-lsz-fmvoqos and prescription medicines only as told by [...] is caused by a kidney stone. Take sgen-oje-oqtatsx and prescription medicines only as told by [...] 02/01/2009 Document Revised: 09/13/2018 Document Reviewed: 09/13/2018 [employer] Patient Education 2020 [employer] 06/19/2022 10:34:28 Lithotripsy Lithotripsy Lithotripsy is a [...] including vitamins, herbs, eye drops, creams, and hcpw-rlf-esnqyrr medicines. Any blood disorders you have. Any [...] 08/13/2001 Document Revised: 11/27/2019 Document Reviewed: 07/07/2017 [employer] Patient Education 2020 [employer]. 06/19/2022 10:34:26 Laser Therapy for Kidney Stones [...] including vitamins, herbs, eye drops, creams, and subo-nsm-vsqrtng medicines. Any problems you or family members [...] provider tells you to take them. ?Taking xmaz-sud-noyugya medicines, vitamins, herbs, and supplements. Eating and [...] 09/11/2016 Document Revised: 04/27/2019 Document Reviewed: 04/27/2019 [employer] Patient Education 2020 [employer]. 06/19/2022 10:34:24 Kidney Stones, Iktc-fy-Lqaq Kidney Stones Kidney stones are rock-like masses [...] Follow these instructions at home: Medicines Take xupx-lfu-fhfcfmz and prescription medicines only as told by [...] 02/01/2009 Document Revised: 01/02/2020 Document Reviewed: 01/02/2020 [employer] Patient Education 2020 [employer]. 06/19/2022 10:34:21 Dietary Guidelines to Help Prevent [...] include: ?Spinach. ?Rhubarb. ?Beets. ?Potato chips and lao fries. ?Nuts. If you regularly take a diuretic medicine, make sure to eat at least 1 2 fruits or vegetables high in potassium each day. These include: ?Avocado. ?Banana. ?Ingham, prune, carrot, or tomato juice. ?Baked potato. [...] Casseroles. Pizza. Lasagna. Frozen meals. Potato chips. Swazi fries. Summary You can reduce your risk [...] 12/11/2011 Document Revised: 12/06/2019 Document Reviewed: 07/27/2017 [employer] Patient Education 2020 [employer]. Follow Up Care 06/17/2022 13:29:38 With:Orestes JACQUES Address: [address] [phone]- Business (1) When: Unknown Comments:scope and removal of the stent under local anesthesia within a couple weeks or so.This office will call you to schedule this. With:ALBERTINA ARNDT Address: [address] [place] [phone] Business (1) When: Unknown Comments:Only if needed. [facility]06-01-2022 Miscellaneous Notes* Letter - Mammography Coordinator - 01/28/2022 2:40 PM EDT January 28, 2022 PID: [id number] Shahana Grace [address] [place] [address] Dear Ms. Grace, We are pleased to [...] report will be kept on [facility] at [facility] as part of your permanent medical record and are available for your continuing care. Thank you for allowing us to help in meeting your health care needs. Sincerely, Dr. Green Interpreting Radiologist [facility] (Normal over 40) [facility] NoteHNO ID: [id number] Author: RT Gavino(R) Service: ? Author Type: [...] BY: RT Gavino(R) January 28, 2022 12:51 [facility] History of Present illness Narrative* Selena Wu [...] 28, 2022 12:51 PM [facility] Evaluation note* Encounter Date Diagnosis Assessment Notes Treatment Notes Treatment Clinical Notes Nov, Encounter for screening mammogram for malignant neoplasm of breast (ICD-10 - Z12.31) [employer] Other [id number] Hospital Discharge instructions Patient Education 11/26/2021 11:36:58 Kidney Stones, Etqe-bz-Asga Kidney Stones Kidney stones are rock-like masses [...] Follow these instructions at home: Medicines Take chwu-eoo-uiiycxf and prescription medicines only as told by [...] 02/01/2009 Document Revised: 01/02/2020 Document Reviewed: 01/02/2020 [employer] Patient Education 2020 [employer]. Follow Up Care 10/27/2021 10:22:19 With:Asif CHISHOLM, ONUR Julio, URO Address: [address] [place], [place] [address]es [address] [place] [phone] Business (1) When: Unknown [facility] 02-07-2022 NoteHNO ID: [id number] Author: Garcia Vieyra OD Service: ? Author Type: MEAT TEAM MEMBER Type: Progress Notes Filed: 10/06/2021 10:56 AM [...] vision, light sensitivity, or contact lens intolerance develops.[facility] 08-09-2021 NoteHNO ID: [id number] Author: Johnny Crespo MD Service: ? Author Type: Physician Type: Progress Notes Filed: 08/09/2021 12:02 PM Note Text: H25.13 Nuclear senile cataract of both eyes (primary encounter diagnosis) Comment: not visually significant OU E11.9 Controlled type 2 diabetes mellitus without complication, without long-term current use of insulin ([facility]) Comment: no Retinopathy Tight control - Stressed blood sugar and blood pressure control and close follow-up with PCP/linter operator. - Advised of importance in blood sugar and blood pressure control in reducing risk of vision loss. - Advised of importance of annual eye exams with sooner follow-up if any new symptoms develop. Return in 1 year Manifest refraction; see spindle repairer for CLs I have confirmed and edited as necessary the relevant ophthalmic history, ROS, and the neuro exam findings as obtained by others. I have seen and examined Shahana Grace. I have discussed the case and the management of this patient's care with the Resident/Fellow, if applicable. I also have reviewed and agree with the assessment and plan as stated above and agree with all of its relevant components. Johnny Crespo MD, 08/09/2021 12:01 [facility]05-01-2010 History general Narrative - Reported* Type Description Date Medical History 2008 pelvic exam done - [facility] Medical History 2009 mammogram done - [facility] Medical History 2002 colonscopy - [facility] Medical History No stress test Medical History Hgb A1c 5-1-10 (6.3) Medical History Coronary artery disease Medical History myocardial infarction Medical History CHF (05/2021) Medical History Hypertensive urgency (05/2021) Surgical History C-Sections x 2 Surgical History appendectomy Surgical History Median sternotomy 05/24/17 Surgical History Coronary bypass grafting x 4 Hospitalization History as above Hospitalization History [facility]; Hypert ensive urgency 05/2021 [employer] Other Evaluation + Plan note Future Appointments Appointment Date:11/24/2021 09:00:00 AM Scheduled Provider:Yury CHISHOLM, Feroz Narayanan Location[facility] Appointment Type:Vascular Follow Up ([facility]) Appointment Date:11/26/2021 09:45:00 AM Scheduled Provider:Wendy Gold MD Location:[facility] Appointment Type:URO Office Visit Future Scheduled Tests Radiology* XR Abdomen 1 View 11/17/21 * CV Peripheralvascular 10/14/21 [facility] Future Appointments Appointment Date:11/26/2021 09:45:00 AM Scheduled Provider:Wendy Gold MD Location:[facility] Appointment Type:URO Office Visit Future Scheduled Tests Radiology* XR Abdomen 1 View 11/17/21 * CV Peripheralvascular 10/14/21 [facility] Future Appointments Appointment Date:06/01/2022 02:00:00 PM Scheduled Provider:Wendy Gold MD Location:[facility] Appointment Type:URO Office Visit Future Scheduled Tests Radiology* XR Abdomen 1 View 11/17/21 * XR Abdomen 1 View 05/29/22 * US Renal 05/29/22 * CV Peripheralvascular 10/14/21 [facility] evaluation + Plan note Future Appointments Appointment Date:01/12/2022 11:30:00 AM Scheduled Provider:Feroz Cotton MD [facility] App[facility] Type:Vascular Follow Up ([facility]) Appointment Date:06/01/2022 02:00:00 PM Scheduled Provider:Wendy Gold MD Location:[facility] Appointment Type:URO Office Visit Future Scheduled Tests Radiology* XR Abdomen 1 View 11/17/21 * XR Abdomen 1 View 05/29/22 * US Renal 05/29/22 * CV Peripheralvascular 10/14/21 [facility] Future Appointments Appointment Date:07/13/2022 01:00:00 PM Scheduled Provider:Wendy Gold MD Location:[facility] Appointment Type:URO Office Visit Future Scheduled Tests Radiology* XR Abdomen 1 View 11/17/21 * CV Peripheralvascular 10/14/21 * CTA Abdomen 01/24/24 [facility] Future Appointments Appointment Date:07/13/2022 01:00:00 PM Scheduled Provider:Wendy Gold MD Location:[facility] Appointment Type:URO Office Visit Future Scheduled Tests Laboratory* Basic Metabolic Panel 06/26/22 Radiology* XR Abdomen 1 View 11/17/21 * CV Peripheralvascular 10/14/21 * CTA Abdomen 01/24/24 [facility] Future Appointments Appointment Date:08/19/2022 10:45:00 AM Scheduled Provider:Wendy Gold MD Location:[facility] Appointment Type:URO Office Visit Future Scheduled Tests Laboratory* Basic Metabolic Panel 06/26/22 Radiology* XR Abdomen 1 View 11/17/21 * CV Peripheralvascular 10/14/21 * CTA Abdomen 01/24/24 [facility] Evaluation + Plan note Future Appointments Appointment Date:10/14/2022 10:45:00 AM Scheduled Provider:Wendy Gold MD Location:[facility] Appointment Type:URO Office Visit Future Scheduled Tests Laboratory* Basic Metabolic Panel 06/26/22 Radiology* XR Abdomen 1 View 11/17/21 * CV Peripheralvascular 10/14/21 * CTA Abdomen 01/24/24 [facility] evaluation + Plan note Future Appointments Appointment Date:10/29/2022 09:00:00 AM Scheduled Provider:Wendy Gold MD Location:[facility] Appointment Type:URO Office Visit Future Scheduled Tests Laboratory* Basic Metabolic Panel 06/26/22 Radiology* XR Abdomen 1 View 11/17/21 * CTA Abdomen 01/24/24 [facility] evaluation + Plan note Future Appointments Appointment Date:02/08/2023 12:30:00 PM Scheduled Provider:Wendy Gold MD Location:[facility] Appointment Type:URO Office Visit Future Scheduled Tests Laboratory* PTH Intact 11/28/22 * Basic Metabolic Panel 06/26/22 * Basic Metabolic Panel 11/28/22 * Uric Acid 11/28/22 Radiology* XR Abdomen 1 View 11/17/21 * XR Abdomen 1 View 12/12/22 * US Renal 12/12/22 * CTA Abdomen 01/24/24 [facility] Evaluation + Plan note Future Appointments Appointment Date:02/08/2023 12:30:00 PM Scheduled Provider:Wendy Gold MD Location:[facility] Appointment Type:URO Office Visit Future Scheduled Tests Laboratory* PTH Intact 11/28/22 * Basic Metabolic Panel 06/26/22 * Basic Metabolic Panel 11/28/22 * Uric Acid 11/28/22 Radiology* XR Abdomen 1 View 11/17/21 * XR Abdomen 1 View 12/12/22 * CTA Abdomen 01/24/24 [facility] Future Appointments Appointment Date:05/19/2023 09:00:00 AM Scheduled Provider: Location:[facility] Appointment Type:Urology CALL PAT FT Appointment Date:05/25/2023 08:45:00 AM Scheduled Provider: Location:[facility] Appointment Type:Urology FT Future Scheduled Tests Laboratory* Basic Metabolic Panel 06/26/22 Radiology* CTA Abdomen 01/24/24 [facility] evaluation + Plan note Future Appointments Appointment Date:08/19/2023 01:15:00 PM Scheduled Provider:Wendy Gold MD Location:[facility] Appointment Type:URO Office Visit Future Scheduled Tests Laboratory* Basic Metabolic Panel 06/26/22 Radiology* CTA Abdomen 01/24/24 [facility] Future Appointments Appointment Date:08/19/2023 01:15:00 PM Scheduled Provider:Wendy Gold MD Location:[facility] Appointment Type:URO Office Visit Future Scheduled Tests Laboratory* Basic Metabolic Panel 06/26/22 Radiology* XR Abdomen 1 View 05/28/23 * CTA Abdomen 01/24/24 [facility] Future Appointments Appointment Date:08/19/2023 01:15:00 PM Scheduled Provider:Wendy Gold MD Location:[facility] Appointment Type:URO Office Visit Future Scheduled Tests Laboratory* PT & PTT 06/15/23 * BUN 06/15/23 * Creatinine 06/15/23 * Electrolyte Panel 06/15/23 * CBC w/ Auto Diff 06/15/23 Radiology* XR Abdomen 1 View 05/28/23 * CTA Abdomen 01/24/24 [facility] Future Appointments Appointment Date:08/19/2023 01:15:00 PM Scheduled Provider:Wendy Gold MD Location:[facility] Appointment Type:URO Office Visit Future Scheduled Tests Radiology* CTA Abdomen 01/24/24 [facility] Future Appointments Appointment Date:08/19/2023 01:15:00 PM Scheduled Provider:Wendy Gold MD Location:[facility] Appointment Type:URO Office Visit Diagnostic Tests Pending * Calculi Analysis Urinary 08/05/23 Future Scheduled Tests Radiology* CTA Abdomen 01/24/24 [facility]Evaluation noteNo InformationNort [employer] Other Evaluation noteNo assessment information available [facility] Work Phone: Evaluation note* Diagnosis Atherosclerosis of coronary artery bypass graft of kenaitze heart without angina pectoris S/P CABG x 4 Postsurgical aortocoronary bypass status Type 2 diabetes mellitus with other specified complication, with long-term current use of insulin ([facility]) Mixed hyperlipidemia Primary hypertension Unspecified essential hypertension History of [place] (myocardial infarction) Old myocardial infarction documented in this encounter [facility] Work Phone: History of Present illness [...] patient is adherent with her medication regimen. [facility] 600 DO Work Phone: History of Present [...] patient is adherent with her medication regimen. [facility] 600 DO Work Phone: History of Present [...] patient is adherent with her medication regimen. [employer] 250 DO Work Phone: History of Present illness Narrative* The patient states she has been generally doing well since the last visit. Comorbid Illnesses: diabetes mellitus, hypertension and hyperlipidemia. * Symptoms: denies chest pain at rest, denies exertional chest pain, denies dyspnea, improved fatigue, improved exercise intolerance, denies palpitations, denies edema, denies orthopnea, improved dizziness and improved orthostatic dizziness. * Disease Monitoring: [facility] 600 DO Work Phone: Hospital course Narrative No data available for this section [facility] No data available for this section [facility] No data available for this section [facility]Reason for referral (narrative)* Consultation (Routine) - Authorized Specialty Diagnoses / Procedures Referred By Elen mckeon Referred To Contact Cardiac Rehabilitation Diagnoses Atherosclerosis of coronary artery bypass graft of kenaitze heart without angina pectoris S/P CABG x 4 History of [place] (myocardial infarction) Sterling Florian DO [address] [facility] [address] [place] [address] Referral ID Status Reason Start Date Expiration Date Visits Requested Visits Authorized [id number] Authorized Specialty Services Required 07/27/2024 1 1 * Consultation (Routine) - Authorized Specialty Diagnoses / Procedures Referred By Elen mckeon Referred To Contact Cardiology Diagnoses Atherosclerosis of coronary artery bypass graft of kenaitze heart without angina pectoris S/P CABG x 4 Procedures Follow Up In Cardiology Sterling Florian DO [address] [facility] [address] [place] [id number] Sterling Florian, [address] [facility] [address] [place] [address] Referral ID Status Reason Start Date Expiration Date V isits Requested Visits Authorized [id number] Authorized 07/28/2023 07/27/2024 1 1 [facility] Work Phone: Summary Purpose Family History [...] Presents today with . * Hospitalized at [facility] due to volume overload, Echo LVEF 55-60%. [...] Presents today with . * Hospitalized at [facility] due to volume overload, Echo LVEF 55-60%. [...] Presents today with . * Hospitalized at [facility] due to volume overload, Echo LVEF 55-60%. [...] of volume depletion. * Patient presents to [facility] for cardiovascular evaluation. * Patient is ambulatory [...] or hospitalizations. * She suffered an inferior [place] in 2016 with primary revascularization of the [...] section and content) DATE CREATED AUTHOR 02/22/2018 [facility] DATE CREATED AUTHOR AUTHOR'S ORGANIZ ATION 10/14/2021 [facility] DATE CREATED AUTHOR AUTHOR'S ORGANIZ ATION 01/30/2022 [facility] DATE CREATED AUTHOR AUTHOR'S ORGANIZ ATION 07/29/2022 [facility] DATE CREATED AUTHOR AUTHOR'S ORGANIZ ATION 07/30/2022 [facility] DATE CREATED AUTHOR AUTHOR'S ORGANIZ ATION 03/31/2023 [facility] DATE CREATED AUTHOR AUTHOR'S ORGANIZ ATION 10/08/2023 [facility] DATE CREATED AUTHOR AUTHOR'S ORGANIZ ATION 02/20/2024 [facility] DATE CREATED AUTHOR AUTHOR'S ORGANIZ ATION 02/21/2024 [facility] DATE CREATED AUTHOR AUTHOR'S ORGANIZ ATION 02/22/2024 [facility] DATE CREATED AUTHOR AUTHOR'S ORGANIZ ATION 02/23/2024 [facility] DATE CREATED AUTHOR AUTHOR'S ORGANIZ ATION 02/24/2024 [facility] Source Comments (unrecognize d section and content) In the event this informatio n is protected by the Federal Confidentiality of Alcohol and Drug Abuse Patient Records regulations: The Federal rules restrict any use of the information to criminally investigate or prosecute any alcohol or drug abuse patient.[facility] Hospital[facility] the event this information is protected by the Federal Confidentiality of Alcohol and Drug Abuse Patient Records regulations: The Federal rules restrict any use of the information to criminally investigate or prosecute any alcohol or drug abuse patient.[facility] Hospital[facility] the event this information is protected by the Federal Confidentiality of Alcohol and Drug Abuse Patient Records regulations: The Federal rules restrict any use of the information to criminally investigate or prosecute any alcohol or drug abuse patient.[facility] Hospital[facility] the event this information is protected by the Federal Confidentiality of Alcohol and Drug Abuse Patient Records regulations: The Federal rules restrict any use of the information to criminally investigate or prosecute any alcohol or drug abuse patient.[facility] Care Teams (unrecognized sec tion and content) [facility] Lab Technician Relationship Specialty Start Date End Date Albertina Arndt [address] [phone] PCP - General Family Practice 11/11/20 Team Status: Active Member Role Status Dates Albertina Arndt DO Primary Care Provider Active Team Status: Active Member Role Status Dates Rudolph Ram D.O. Attending Provider Active Team Status: Inactive Member Role Status Dates Albertina Arndt DO Primary Care Provider, Attending Provi breanna Active [employer] Lab Technician Relationship Specialty Start Date End Date Albertina Arndt [address] [phone] PCP - General Family Medicine 11/11/20 N[facility] Lab Technician Relationship Specialty Start Date End Date Albertina Arndt [address] [place] [phone] PCP - General Family Medicine 11/11/20 N[facility]riles Lab Technician Relationship Specialty Start Date End Date Albertina Arndt [address] [place] [phone] PCP - General Family Medicine 11/11/20 N[facility] Lab Technician Relationship Specialty Start Date End Date Albertina Arndt DO [address] [place] [phone] PCP - General Family Medicine 07/28/23 Team [...] BE BASED ON THE PRIMARY CLINICAL RECORDS. [facility]. provides no warranty or guarantee of the accuracy or completeness of information in this document.
[2024-02-26] MEDS: HEPARIN SODIUM (PORCINE) 5,000 UNIT/ML VIAL 5000 UNIT SUBQ ×2 (11:28→20:45)
[2024-02-26] MEDS: METOPROLOL TARTRATE 50 MG TABLET PO ×2 (11:28→20:45)
[2024-02-26 11:29] LABS: Glucometer 116 mg/dL (74-106)
--- NOTE | 2024-02-26 12:48 | PM.HP ---
HPI H&P: HPI History of Present Illness Chief complaint: FEVER, ALTERED MENTAL STATUS Narrative: 74-year-old female presented to ER with fever, confusion, change in mental status. She was at [facility] about 2 to 3 days ago where she had ureteral stent placed for obstructing ureteral stone. Patient reports that she started to feel nauseous/generalized malaise along with intermittent confusion and fever. She was evaluated in ED and her workup was consistent with acute UTI with metabolic encephalopathy for which she was admitted for observation. Patient was started on IV fluids and IV antibiotics. Patient reports her pain is better but she continues to have intermittent spasmic pain on her right side. Still feeling nauseous but denies vomiting. She denies blood in her urine. She seems to be at her baseline mental status and does not appear confused anymore. Opioid HPI Opioid Management Most Recent Pain and Opioid Data: Last Pain Assessment 02/26/24 12:45 Last ORT Total Score 0 02/26/24 08:54 Last ORT Risk Category Low Risk 02/26/24 08:54 Review of Systems ROS Status of ROS 10 or more systems reviewed and unremarkable except as noted in history and below PFSH PFSH Medical History (Updated 02/26/24 @ 12:53 by Shaikh Raffi MD) Kidney calculi ?N20.0 - Calculus of kidney (ICD-10) Coronary bypass graft mechanical complication ?T82.218A - Other mechanical complication of coronary artery bypass graft, initial encounter (ICD-10) Obesity ?E66.9 - Obesity, unspecified (ICD-10) Hyperlipidemia ?E78.5 - Hyperlipidemia, unspecified (ICD-10) Coronary artery disease ?I25.10 - Atherosclerotic heart disease of [place] coronary artery without angina pectoris (ICD-10) Diabetes mellitus ?E11.9 - Type 2 diabetes mellitus without complications (ICD-10) Surgical History (Updated 02/26/24 @ 09:40 by Minna Beasley) H/O lithotripsy ?Z98.890 - Other specified postprocedural states (ICD-10) History of section ?Z98.891 - History of uterine scar from previous surgery (ICD-10) History of section ?Z98.891 - History of uterine scar from previous surgery (ICD-10) Hx of appendectomy ?Z90.49 - Acquired absence of other specified parts of digestive tract (ICD-10) Social History (Updated 02/26/24 @ 09:36 by Karen Jimenez) Within the past year, how often did you have a drink containing alcohol: never Score interpretation: A score less than 3 is consistent with normal alcohol consumption. Smoking status: Never smoker Non-prescribed substance use: denies use Previous occupational history: retired Highest level of school completed/degree received: high school graduate Are you now , , , , never or living with a partner: Little interest or pleasure in doing things: not at all Feeling down, depressed, or hopeless: not at all Feel stressed/tense/nervous/anxious/difficulty sleeping: only a little Life stressor details: kidney stone issues lately and surgeries Do you think of yourself as: straight/heterosexual Meds Home Medications and Allergies Home Medications ?Medication ?Instructions ?Recorded ?Confirmed ?Type ciprofloxacin HCl 500 mg tablet 500 mg PO Q12H 02/25/24 02/26/24 History insulin glargine 100 unit/mL (3 40 unit subcut DAILY 02/25/24 02/26/24 History mL) subcutaneous pen (Basaglar KwikPen U-100 Insulin) lisinopril 5 mg tablet 5 mg PO BID 02/25/24 02/26/24 History metformin 500 mg tablet,extended 500 mg PO DAILY 02/25/24 02/26/24 History release 24 hr metoprolol tartrate 50 mg tablet 50 mg PO Q12H 02/25/24 02/26/24 History nifedipine 30 mg tablet,extended 60 mg PO DAILY 02/25/24 02/26/24 History release 24 hr atorvastatin 40 mg tablet 40 mg PO BEDTIME 02/26/24 02/26/24 History clopidogrel 75 mg tablet 75 mg PO DAILY 02/26/24 02/26/24 History meclizine 12.5 mg tablet 12.5 mg PO TID PRN dizziness 02/26/24 02/26/24 History potassium bicarbonate-citric acid 25 meq PO DAILY 02/26/24 02/26/24 History 25 mEq effervescent tablet (Klor-Con/EF) Allergies Allergy/AdvReac Type Severity Reaction Status Date / Time aspirin Allergy Verified 02/25/24 22:16 Exam Constitutional Vital Signs, click to edit/add: Last Vital Signs Temp 98.6 F 02/26/24 08:54 Pulse 63 02/26/24 12:04 Resp 20 02/26/24 08:54 BP 131/65 02/26/24 08:54 Pulse Ox 94 L 02/26/24 11:50 O2 Del Method Room Air 02/26/24 11:50 Documenting provider has reviewed patient's vital signs: yes Common normals: no apparent distress and oriented x3 General appearance: cooperative Respiratory Common normals: normal respiratory effort and clear to auscultation bilaterally Effort & inspection: able to speak in complete sentences Auscultation: clear to auscultation bilaterally Cardio Common normals: regular rate, S1 normal heart sound and S2 normal heart sound Rate: regular rate Heart sounds: S1 normal and S2 normal GI Common normals: Normal to inspection, nondistended, normoactive bowel sounds present, soft to palpation, non-tender and no hepatosplenomegaly Palpation: soft and no hepatosplenomegaly Extremity Common normals: no clubbing, cyanosis or edema Neuro Common normals: oriented x3, moves all extremities and no focal motor deficits Psych Common normals: mental status grossly normal, denies hallucinations, denies homicidal ideation and denies suicidal ideation Results Labs Labs: Short CBC 02/25/24 Range/Units 22:54 WBC 10.3 (4.0-11.0) 10^3/uL Hgb 13.5 (12.0-16.0) g/dL Hct 40.9 (36.0-48.0) % Plt Count 157 (150-450) 10^3/uL BMP 02/25/24 22:54 Sodium 143 Potassium 3.6 Chloride 110 H Carbon Dioxide 17.7 L BUN 23.0 H Creatinine 2.10 H Glucose 154 H Calcium 8.6 Liver Function 02/25/24 Range/Units 22:54 Total Bilirubin 0.9 (0.2-1.0) mg/dL AST 23 (15-37) U/L ALT 17 (14-59) U/L Alkaline Phosphatase 73 (46-116) U/L Albumin 2.4 L (3.4-5.0) g/dL Urine 02/26/24 Range/Units 01:05 Urine Color Lt. yellow (YELLOW) Urine Clarity Clear (CLEAR) Urine pH 6.0 (5.0-9.0) Ur Specific [place] 1.020 (1.005-1.025) Urine Protein 100 A (NEG/TRACE) mg/dL Urine Glucose (UA) Negative (NEGATIVE) mg/dL Assessment and Plan Assessment and Plan (1) Metabolic encephalopathy: Assessment and Plan: Due to urinary tract infection. CT had with no acute intracranial pathology. More or less at her baseline now. Continue with IV fluids continue with IV Rocephin. (2) Urinary tract infection: Assessment and Plan: Associated with and due to ureteral stone and recent ureteral stent placement. Follow-up blood and urine culture. Continue with IV Rocephin. Monitor. Qualifiers: Urinary tract infection type: acute cystitis Hematuria presence: without hematuria Qualified Code(s): N30.00 - Acute cystitis without hematuria (3) Acute kidney injury: Assessment and Plan: Baseline renal function is serum creatinine of 1.5. Presented with GIOVANNY and serum creatinine of 2.1 likely secondary to acute illness/UTI. Continue with IV fluids. Monitor urine output. Hold lisinopril. (4) Ureteral stent present: Assessment and Plan: Recent stent placement for ureteral stone. No ureteral stone on imaging today. No further intervention as per urology. Continue with IV antibiotics and fluids (5) Coronary artery disease: Assessment and Plan: Stable. No active cardiac ischemia. Continue with home meds Qualifiers: Coronary Disease-Associated Artery/Lesion type: [place] artery [place] vs. transplanted heart: [place] heart Associated angina: without angina Qualified Code(s): I25.10 - Atherosclerotic heart disease of [place] coronary artery without angina pectoris (6) Hyperlipidemia: Assessment and Plan: Continue with Lipitor. Qualifiers: Hyperlipidemia type: unspecified Qualified Code(s): E78.5 - Hyperlipidemia, unspecified (7) Diabetes mellitus: Assessment and Plan: Continue with basal/ bolus insulin. Hold metformin due to acute kidney injury Qualifiers: Diabetes mellitus type: type 2 Diabetes mellitus long-term insulin use: with long-term use Diabetes mellitus complication status: with kidney complications Diabetes mellitus complication detail: with chronic kidney disease Chronic kidney disease stage: stage 3 (moderate) Chronic kidney disease stage 3 subtype: unspecified whether 3a or 3b Qualified Code(s): E11.22 - Type 2 diabetes mellitus with diabetic chronic kidney disease; N18.30 - Chronic kidney disease, stage 3 unspecified; Z79.4 - intermediate (current) use of insulin (8) Kidney calculi: Assessment and Plan: History of recurrent kidney stone. Most recent last week when she had ureteral stent placed. Outpatient follow-up with urology (9) Obesity: Assessment and Plan: Patient will benefit from weight loss considering her history of CAD and type 2 diabetes. Will defer to outpatient Qualifiers: Obesity type: due to excess calories Obesity classification: adult class 2 (BMI 35 - 39.9) Serious obesity comorbidity presence: without serious comorbidity Body mass index: BMI 37.0-37.9 Qualified Code(s): E66.09 - Other obesity due to excess calories; Z68.37 - Body mass index [BMI] 37.0-37.9, adult
--- NOTE | 2024-02-26 13:43 | PM.URCN ---
Urology - CN: HPI Date of Consult Patient: known to practice within the last 3 years Consult date: 02/26/24 Requesting Physician: Shaikh Raffi MD Primary Care Provider: ALBERTINA ARNDT Consult Narrative Reason for consult IM: febrile uti with recent right ureteral stent placement Narrative: pt of dr domínguez had recent right ureteral stent now adm with fever and altered mental status and ct confirms good position of stent asked to see cc:: CC: Shaikh Raffi MD Review of Systems ROS Status of ROS: 10 or more systems reviewed and unremarkable except as noted in history and below PFSH PFS Medical History (Updated 02/26/24 @ 12:53 by Shaikh Raffi MD) Kidney calculi ?N20.0 - Calculus of kidney (ICD-10) Coronary bypass graft mechanical complication ?T82.218A - Other mechanical complication of coronary artery bypass graft, initial encounter (ICD-10) Obesity ?E66.9 - Obesity, unspecified (ICD-10) Hyperlipidemia ?E78.5 - Hyperlipidemia, unspecified (ICD-10) Coronary artery disease ?I25.10 - Atherosclerotic heart disease of [place]aviat[place] coronary artery without angina pectoris (ICD-10) Diabetes mellitus ?E11.9 - Type 2 diabetes mellitus without complications (ICD-10) Surgical History (Updated 02/26/24 @ 09:40 by Minna Beasley) H/O lithotripsy ?Z98.890 - Other specified postprocedural states (ICD-10) History of section ?Z98.891 - History of uterine scar from previous surgery (ICD-10) History of section ?Z98.891 - History of uterine scar from previous surgery (ICD-10) Hx of appendectomy ?Z90.49 - Acquired absence of other specified parts of digestive tract (ICD-10) Social History (Updated 02/26/24 @ 09:36 by Karen Jimenez) Within the past year, how often did you have a drink containing alcohol: never Score interpretation: A score less than 3 is consistent with normal alcohol consumption. Smoking status: Never smoker Non-prescribed substance use: denies use Previous occupational history: retired Highest level of school completed/degree received: high school graduate Are you now , , , , never or living with a partner: Little interest or pleasure in doing things: not at all Feeling down, depressed, or hopeless: not at all Feel stressed/tense/nervous/anxious/difficulty sleeping: only a little Life stressor details: kidney stone issues lately and surgeries Do you think of yourself as: straight/heterosexual Meds Home Medications and Allergies Home Medications ?Medication ?Instructions ?Recorded ?Confirmed ?Type ciprofloxacin HCl 500 mg tablet 500 mg PO Q12H 02/25/24 02/26/24 History insulin glargine 100 unit/mL (3 40 unit subcut DAILY 02/25/24 02/26/24 History mL) subcutaneous pen (Basaglar KwikPen U-100 Insulin) lisinopril 5 mg tablet 5 mg PO BID 02/25/24 02/26/24 History metformin 500 mg tablet,extended 500 mg PO DAILY 02/25/24 02/26/24 History release 24 hr metoprolol tartrate 50 mg tablet 50 mg PO Q12H 02/25/24 02/26/24 History nifedipine 30 mg tablet,extended 60 mg PO DAILY 02/25/24 02/26/24 History release 24 hr atorvastatin 40 mg tablet 40 mg PO BEDTIME 02/26/24 02/26/24 History clopidogrel 75 mg tablet 75 mg PO DAILY 02/26/24 02/26/24 History meclizine 12.5 mg tablet 12.5 mg PO TID PRN dizziness 02/26/24 02/26/24 History potassium bicarbonate-citric acid 25 meq PO DAILY 02/26/24 02/26/24 History 25 mEq effervescent tablet (Klor-Con/EF) Allergies Allergy/AdvReac Type Severity Reaction Status Date / Time aspirin Allergy Verified 02/25/24 22:16 Exam Narrative Exam Narrative: no acute distrerss, soft abdomen no pain to palpation Constitutional Vital Signs, click to edit/add: Last Vital Signs Temp 98.8 F 02/26/24 13:33 Pulse 69 02/26/24 13:33 Resp 18 02/26/24 13:33 BP 133/76 02/26/24 13:33 Pulse Ox 93 L 02/26/24 13:33 O2 Del Method Room Air 02/26/24 13:33 Results Labs Labs: Short CBC 02/25/24 Range/Units 22:54 WBC 10.3 (4.0-11.0) 10^3/uL Hgb 13.5 (12.0-16.0) g/dL Hct 40.9 (36.0-48.0) % Plt Count 157 (150-450) 10^3/uL BMP 02/25/24 22:54 Sodium 143 Potassium 3.6 Chloride 110 H Carbon Dioxide 17.7 L BUN 23.0 H Creatinine 2.10 H Glucose 154 H Calcium 8.6 Liver Function 02/25/24 Range/Units 22:54 Total Bilirubin 0.9 (0.2-1.0) mg/dL AST 23 (15-37) U/L ALT 17 (14-59) U/L Alkaline Phosphatase 73 (46-116) U/L Albumin 2.4 L (3.4-5.0) g/dL Urine 02/26/24 Range/Units 01:05 Urine Color Lt. yellow (YELLOW) Urine Clarity Clear (CLEAR) Urine pH 6.0 (5.0-9.0) Ur Specific [place] 1.020 (1.005-1.025) Urine Protein 100 A (NEG/TRACE) mg/dL Urine Glucose (UA) Negative (NEGATIVE) mg/dL Imaging Abdominal x-ray: Attestation: I have reviewed the pertinent imaging results. Urology Assessment and Plan Assessment and Plan (1) Metabolic encephalopathy: Assessment and Plan: Due to urinary tract infection. CT had with no acute intracranial pathology. More or less at her baseline now. Continue with IV fluids continue with IV Rocephin. (2) Urinary tract infection: Assessment and Plan: Associated with and due to ureteral stone and recent ureteral stent placement. Follow-up blood and urine culture. Continue with IV Rocephin. Monitor. Qualifiers: Hematuria presence: without hematuria Urinary tract infection type: acute cystitis Qualified Code(s): N30.00 - Acute cystitis without hematuria (3) Acute kidney injury: Assessment and Plan: Baseline renal function is serum creatinine of 1.5. Presented with GIOVANNY and serum creatinine of 2.1 likely secondary to acute illness/UTI. Continue with IV fluids. Monitor urine output. Hold lisinopril. (4) Ureteral stent present: Assessment and Plan: Recent stent placement for ureteral stone. No ureteral stone on imaging today. No further intervention as per urology. Continue with IV antibiotics and fluids (5) Coronary artery disease: Assessment and Plan: Stable. No active cardiac ischemia. Continue with home meds Qualifiers: Coronary Disease-Associated Artery/Lesion type: [place] artery [place] vs. transplanted heart: [place] heart Associated angina: without angina Qualified Code(s): I25.10 - Atherosclerotic heart disease of [place] coronary artery without angina pectoris (6) Hyperlipidemia: Assessment and Plan: Continue with Lipitor. Qualifiers: Hyperlipidemia type: unspecified Qualified Code(s): E78.5 - Hyperlipidemia, unspecified (7) Diabetes mellitus: Assessment and Plan: Continue with basal/ bolus insulin. Hold metformin due to acute kidney injury Qualifiers: Diabetes mellitus type: type 2 Diabetes mellitus terminologist insulin use: with residential use Diabetes mellitus complication status: with kidney complications Diabetes mellitus complication detail: with chronic kidney disease Chronic kidney disease stage: stage 3 (moderate) Chronic kidney disease stage 3 subtype: unspecified whether 3a or 3b Qualified Code(s): E11.22 - Type 2 diabetes mellitus with diabetic chronic kidney disease; N18.30 - Chronic kidney disease, stage 3 unspecified; Z79.4 - terminologist (current) use of insulin (8) Kidney calculi: Assessment and Plan: History of recurrent kidney stone. Most recent last week when she had ureteral stent placed. Outpatient follow-up with urology (9) Obesity: Assessment and Plan: Patient will benefit from weight loss considering her history of CAD and type 2 diabetes. Will defer to outpatient Qualifiers: Obesity type: due to excess calories Obesity classification: adult class 2 (BMI 35 - 39.9) Serious obesity comorbidity presence: without serious comorbidity Body mass index: BMI 37.0-37.9 Qualified Code(s): E66.09 - Other obesity due to excess calories; Z68.37 - Body mass index [BMI] 37.0-37.9, adult Plan no acute intervention needed, if temp spikes mght need [place] to prevent reflux of infected urine up stent. await cx results
[2024-02-26 16:21] LABS: Glucometer 145 mg/dL (74-106)
[2024-02-26 20:49] LABS: Glucometer 136 mg/dL (74-106)
[2024-02-26] MEDS: CEFTRIAXONE 1,000 MG in 0.9 % SODIUM CHLORIDE 50 ML 100 MG IV (21:04)
[2024-02-27] VITALS (9 sets, daily range): BP systolic 138–177; BP diastolic 61–63; PULSE 51–64; TEMP 36.6–36.7; O2SAT 90–96
[2024-02-27 05:30] LABS: Basophils Percent Auto 0.1 % (0.2-2.0); Eosinophils Absolute Auto 0.1 10^3/uL (0.0-0.7); Eosinophils Percent Auto 1.9 % (0.9-7.0); Hematocrit 37.3 % (36.0-48.0); Hemoglobin 11.7 g/dL (12.0-16.0); Immature Granulocytes Abs Auto 0.06 10^3/uL (0.00-0.03); Immature Granulocytes Pct Auto 0.8 % (0.0-0.5); Lymphocytes Absolute Auto 0.7 10^3/uL (1.2-3.8); Lymphocytes Percent Auto 8.9 % (20.5-60.0); Mean Corpuscular HGB Conc 31.4 g/dL (29.9-35.2); Mean Corpuscular Volume 95.6 fL (81.0-99.0); Mean Platelet Volume 9.9 fL (9.5-13.5); Monocytes Absolute Auto 0.8 10^3/uL (0.3-0.8); Monocytes Percent Auto 11.1 % (1.7-12.0); Neutrophils Absolute Auto 5.6 10^3/uL (1.4-6.5); Neutrophils Percent Auto 77.2 % (43.0-75.0); Platelet Count 143 10^3/uL (150-450); Red Cell Distribution Width 13.1 % (11.0-15.0); White Blood Count 7.3 10^3/uL (4.0-11.0)
[2024-02-27 05:55] LABS: Alanine Aminotransferase 16 U/L (14-59); Albumin Globulin Ratio 0.5; Albumin Level 1.9 g/dL (3.4-5.0); Alkaline Phosphatase 63 U/L (46-116); Anion Gap 13.8; Aspartate Amino Transferase 25 U/L (15-37); BUN Creatinine Ratio 12.9; Bilirubin Total 0.3 mg/dL (0.2-1.0); Calcium 8.2 mg/dL (8.5-10.1); Carbon Dioxide 18.7 mmol/L (21.0-32.0); Chloride 114 mmol/L (98-107); Estimated GFR (African America 29 (>=60); Estimated GFR (Non-African Ame 24 (>=60); Globulin 3.8 g/dL; Glucose 121 mg/dL (74-106); Potassium 3.5 mmol/L (3.5-5.1); Sodium 143 mmol/L (136-145); Total Protein 5.7 g/dL (6.4-8.2)
[2024-02-27] MEDS: INSULIN DETEMIR 300 UNIT/3 ML INSULN.PEN 40 UNIT SUBQ (08:20)
[2024-02-27] MEDS: NIFEdipine 30 MG TAB.ER.24 60 MG PO (08:20)
[2024-02-27] MEDS: HEPARIN SODIUM (PORCINE) 5,000 UNIT/ML VIAL 5000 UNIT SUBQ (08:20)
[2024-02-27] MEDS: METOPROLOL TARTRATE 50 MG TABLET PO (08:20)
--- NOTE | 2024-02-27 10:46 | PM.DS1 ---
DS: Providers Provider Date of admission: 02/26/24 08:17 Primary care physician: ALBERTINA POLANCO Admitting clinician: Shaikh Raffi Attending physician on admission: Shaikh Raffi Consults: 02/26/24 10:47 Occupational Therapy Eval and Treat Routine Reason for consultation: Ambulatory dysfunction/weakness Physical Therapy Eval and Treat Routine Reason for consultation: Ambulatory dysfunction/weakness Attending physician on discharge: Shaikh Raffi Discharging clinician: Shaikh Raffi Anticipated date of discharge: 02/27/24 DS: Diagnosis Discharge Diagnosis (1) Metabolic encephalopathy: Assessment and plan: Resolved. back to baseline (2) Urinary tract infection: Assessment and plan: Complicated UTI, sec to ureteral stone/recent ureteral stone. Will d/c on oral cefitn Qualifiers: Hematuria presence: without hematuria Urinary tract infection type: acute cystitis Qualified Code(s): N30.00 - Acute cystitis without hematuria (3) Acute kidney injury: Assessment and plan: Improved, not at baseline. Good PO intake. Outpatient f/u. (4) Ureteral stent present: Assessment and plan: f/u urology for its removal (5) Coronary artery disease: Assessment and plan: Stable. Qualifiers: Coronary Disease-Associated Artery/Lesion type: [place] artery [place] vs. transplanted heart: [place] heart Associated angina: without angina Qualified Code(s): I25.10 - Atherosclerotic heart disease of [place] coronary artery without angina pectoris (6) Hyperlipidemia: Assessment and plan: C/w statin Qualifiers: Hyperlipidemia type: unspecified Qualified Code(s): E78.5 - Hyperlipidemia, unspecified (7) Diabetes mellitus: Assessment and plan: C.w home medications Qualifiers: Diabetes mellitus type: type 2 Diabetes mellitus fdc insulin use: with fdc use Diabetes mellitus complication status: with kidney complications Diabetes mellitus complication detail: with chronic kidney disease Chronic kidney disease stage: stage 3 (moderate) Chronic kidney disease stage 3 subtype: unspecified whether 3a or 3b Qualified Code(s): E11.22 - Type 2 diabetes mellitus with diabetic chronic kidney disease; N18.30 - Chronic kidney disease, stage 3 unspecified; 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 (9) Obesity: Assessment and plan: Will benefit for weight loss. Qualifiers: Obesity type: due to excess calories Obesity classification: adult class 2 (BMI 35 - 39.9) Serious obesity comorbidity presence: without serious comorbidity Body mass index: BMI 37.0-37.9 Qualified Code(s): E66.09 - Other obesity due to excess calories; Z68.37 - Body mass index [BMI] 37.0-37.9, adult DS: Summary Hospital Course Hospital Course: 74-year-old female presented with confusion/generalized weakness and was admitted for urinary tract infection resulting in metabolic encephalopathy. She also had evidence of acute kidney injury. Patient was started on IV fluids IV Rocephin with improvement in her symptoms. She returned back to her baseline mental status. Her renal function improved with IV hydration. CT abdomen pelvis showed improvement in hydronephrosis, ureteral stent in place. Patient is stable for discharge on oral Ceftin. She will need to follow-up with PCP and urology as outpatient. Status at Discharge Functional status at discharge: independent ambulation Overall status at discharge: patient is back to baseline Time Spent with Patient Time attestation: Total time spent providing and/or coordinating discharge services: Time spent: greater than 30 minutes Exam Constitutional Vital Signs, click to edit/add: Last Vital Signs Temp 97.9 F 02/27/24 05:07 Pulse 55 L 02/27/24 10:00 Resp 18 02/27/24 00:00 BP 177/63 H 02/27/24 05:07 Pulse Ox 90 L 02/27/24 04:41 O2 Del Method Room Air 02/27/24 04:41 Documenting provider has reviewed patient's vital signs: yes Common normals: no apparent distress and oriented x3 General appearance: cooperative Respiratory Common normals: normal respiratory effort and clear to auscultation bilaterally Effort & inspection: able to speak in complete sentences Auscultation: clear to auscultation bilaterally Cardio Common normals: regular rate, S1 normal heart sound and S2 normal heart sound Rate: regular rate Heart sounds: S1 normal and S2 normal GI Common normals: Normal to inspection, nondistended, normoactive bowel sounds present, soft to palpation, non-tender and no hepatosplenomegaly Palpation: soft and no hepatosplenomegaly Extremity Common normals: no clubbing, cyanosis or edema Neuro Common normals: oriented x3, moves all extremities and no focal motor deficits Psych Common normals: mental status grossly normal, denies hallucinations, denies homicidal ideation and denies suicidal ideation DS: Data Data Completed and Pending Labs on day of discharge: Labs from last 24 hours 02/27/24 02/26/24 02/26/24 04:53 20:39 16:20 WBC 7.3 RBC 3.90 L Hgb 11.7 L Hct 37.3 MCV 95.6 MCH 30.0 MCHC 31.4 RDW 13.1 Plt Count 143 L MPV 9.9 Neut % (Auto) 77.2 H Lymph % (Auto) 8.9 L [place] % (Auto) 11.1 Eos % (Auto) 1.9 Baso % (Auto) 0.1 L Neut # (Auto) 5.6 Lymph # (Auto) 0.7 L [place] # (Auto) 0.8 Eos # (Auto) 0.1 Baso # (Auto) 0.0 Abs Immat Gran (auto) 0.06 H Imm/Tot Granulo (auto) 0.8 H Sodium 143 Potassium 3.5 Chloride 114 H Carbon Dioxide 18.7 L Anion Gap 13.8 BUN 26.0 H Creatinine 2.01 H Est GFR ( Amer) 29 L Est GFR (Non-Af Amer) 24 L BUN/Creatinine Ratio 12.9 Glucose 121 H Calcium 8.2 L Total Bilirubin 0.3 AST 25 ALT 16 Alkaline Phosphatase 63 Total Protein 5.7 L Albumin 1.9 L Globulin 3.8 Albumin/Globulin Ratio 0.5 POC Glucose 136 H 145 H 02/26/24 11:29 WBC RBC Hgb Hct MCV MCH MCHC RDW Plt Count MPV Neut % (Auto) Lymph % (Auto) [place] % (Auto) Eos % (Auto) Baso % (Auto) Neut # (Auto) Lymph # (Auto) [place] # (Auto) Eos # (Auto) Baso # (Auto) Abs Immat Gran (auto) Imm/Tot Granulo (auto) Sodium Potassium Chloride Carbon Dioxide Anion Gap BUN Creatinine Est GFR ( Amer) Est GFR (Non-Af Amer) BUN/Creatinine Ratio Glucose Calcium Total Bilirubin AST ALT Alkaline Phosphatase Total Protein Albumin Globulin Albumin/Globulin Ratio POC Glucose 116 H Preliminary micro results at discharge 02/26/24 01:05 Urine Culture - Preliminary Urine,Clean Catch Discharge Plan Discharge Disposition: Home, Self-Care Condition: Fair Discharge Medications: New cefuroxime axetil 500 mg tablet 500 mg PO BID 7 Days Qty: 14 0RF Continued nifedipine 30 mg tablet extended release 24hr 60 mg PO DAILY metoprolol tartrate 50 mg tablet 50 mg PO Q12H Hold Instructions: ON HOLD PER FAMILY DUE TO DIZZINESS lisinopril 5 mg tablet 5 mg PO BID metformin 500 mg tablet extended release 24 hr 500 mg PO DAILY Rx Instructions: RECENTLY CHANGED PER FAMILY TO ONLY 1 TABLET DAILY insulin glargine [Basaglar IraikPen U-100 Insulin] 100 unit/mL (3 mL) insulin pen 40 unit SUBCUT DAILY Klor-Con/EF 25 mEq tablet, effervescent 25 meq PO DAILY atorvastatin 40 mg tablet 40 mg PO BEDTIME clopidogrel 75 mg tablet 75 mg PO DAILY meclizine 12.5 mg tablet 12.5 mg PO TID PRN (Reason: dizziness) Discontinued ciprofloxacin HCl 500 mg tablet 500 mg PO Q12H Rx Instructions: FILLED 02/23/24 X 7 DAYS Activity: increase activity as tolerated Diet: advance to your usual diet Print Language: Hebrew Patient Instructions: Urinary Tract Infection in Women (DC), Altered Mental Status (GEN) Forms: Portal Instructions Follow Up Appointments: Follow up with your PCP Albertina Polanco [phone] next week...keep your already scheduled appointment with urology re:stent
--- OUTSIDE RECORDS SUMMARY | 2024-02-28 11:03 | XMS_ITS | CCD ---
Author Organization [facility] CliniSyde Care Team Providers Care Membership Sales Manager Name Role Phone KANWAL MANN Unavailable Unavailable ALBERTINA ARNDT Unavailable Unavailable UNKNOWN, PROVIDER Unavailable Unavailable ALBERTINA ARNDT Unavailable Unavailable Albertina Arndt R Unavailable Unavailable Unavailable ANIVAL, DR STERLING Hoyos Admitting Unavailmasood ARNDT, DR ENG Primary Care Unavailable ANIVAL, DR STERLING Hoyos Attending Unavailabl e LUWENDY Dow Attending Unavailable ASIF .WENDY Admitting Unavailable CARIN, [...] Oleary Referring Unava ilSo Blankenship Attending Provider Hair, DO Eng Primary Care Provider DO Albertina Arndt Attending Provider Albertina Arndt Primary Care Provider [phone] ALBERTINA ARNDT Primary Care Unavailable Francie Esteban Unavailable Unavailable Garrett Palmer Unavailable Odalys Arndt DOmal Vee Primary Care Provider So Ram Attending Provider Hair DO Eng Primary Care Provider DO Tal Florian Attending Provider [phone] Hair Albertina Primary Care Unavailable Tal Florian [...] S Consulting Unavailable Margareth DANIELS Admitting Unavailable Ck RILEY Attending Unavailable Rose Alvarado H Attending Unavailable COOK, Orestes P Attending Unavailable COOK, Orestes P Referring Unavailable COOK, Orestes P Admitting Unavailable LEONEL Corona Attending Unavailab Glynn Wilson Admitting Unavailable AGNES, Glynn Tipton Attending Unavailable AGNES, Glynn Tipton Admitting Unavailable DENT, Glynn Mcdermott Consulting Unavailable MD Glynn DENT Consulting Unavailable DENT, Glynn R Consulting Unavailable DENT, Glynn R Consulting Unavailable DENT, Glynn R Consulting Unavailable DENT, Glynn R Consulting Unavailable DENT, Glynn R Consulting Unavailable DENT, Glynn R Consulting Unavailable DENT, Glynn R Consulting Unavailable DENT, Glynn R Consulting Unavailable DENT, Glynn R Consulting Unavailable DENT, Glynn R Consulting Unavailable Glynn DENT Consulting Unavailable Glynn DENT Consulting Unavailable Backensto, Crystal L Unavailable Unavailable Jhonny Barrett Attending Unavailable lGynn ALARCON Admitting Unavailable MD Glynn DENT Consulting Unavailable Glynn DENT Attending Unavailable MARCO KURTZ Attending Unavailable Allergies Allergy Classification Reported Allergen(s) Allergy Type Date of Onset Reaction(s) Facility (20 sources) Aspirin; Translations: [aspirin] Drug Allergy 3 Eye swelling (finding), Anaphylaxis -[facility] 600 DO Work Phone: Comment on above: pt states she is abl e to take 81 mg of aspirin with aspirin allergy (1 source) Aspirin Drug Allergy [facility] Repository (4 sources) No Latwex Allergy [Other] Propensity to adverse reactions 3 [facility] (9 sources) Aspirin Drug Allergy swollen throat [employer] [facility] Other (1 source) OTHER; Translations: [OTHER] Propensity to adverse reactions (disorder) 3 [facility] Other [facility] (1 source) Aspirin Drug Allergy 1 [facility] Repository Medications Current Medications Medication Drug [...] day(s), # 15 cap(s), Refills(s) 0, Pharmacy: [facility] #[id number], 158, cm, 05/09/23 8:54:00 EDT, Height/Length Dosing, 90.4, kg, 05/09/23 8:54:00 EDT, Weight Dosing Start Date: 05/11/23 Stop Date: 05/16/23 Status: Ordered Start: 11-14-2022 End: 11-19-2022 take 1 capsule by mouth three times daily Keflex 500 mg Cap 500 mg = 1 cap(s), Oral, TID, X 5 day(s), # 15 cap(s), Refills(s) 0, Pharmacy: [facility], 157, cm, 11/13/22 23:40:00 EDT, Height/Length Dosing, 83.2, kg, 11/13/22 23:40:00 EDT, Weight Dosing Start Date: 11/14/22 Stop Date: 11/19/22 Status: Ordered Start: 10-22-2021 take 1 capsule by mo [facility] once daily Keflex 500 mg Cap 500 mg = 1 cap(s), Oral, q12hr, take 1 cap the evening prior to scheduled procedure, take 2nd capsule the day of scheduled procedure, # 2 cap(s), Refills(s) 0, Pharmacy: [facility]/pharmacy #[id number], 161.9, cm, 10/21/21 6:32:00 EST, Height/Length Dosing, 80.5,... Start Date: 10/22/21 Status: Ordered ciprofloxacin 500 mg oral tablet (5 sources) Quinolone Antimicrobial Start: 02-23-2024 End: 03-01-2024 take 1 tablet by mouth twice daily Cipro 500 mg Tab 500 mg = 1 tab(s), Oral, BID, X 7 day(s), # 14 tab(s), Refills(s) 0, Pharmacy: [facility], 160.5, cm, 02/19/24 13:38:00 EDT, Height/Length Dosing, 84.3, kg, 02/19/24 13:38:00 EDT, Weight Dosing Start Date: 02/23/24 Stop Date: 03/01/24 Status: Ordered Start: 08-05-2023 take 1 tablet by luba th twice daily Cipro 500 mg Tab 500 mg = 1 tab(s), Oral, BID, # 10 tab(s), Refills(s) 0, Pharmacy: [facility], 160.5, cm, 08/05/23 13:21:00 EST, Height/Length Dosing, 83, kg, 08/05/23 13:21:00 EST, Weight Dosing Start Date: 08/05/23 Status: Ordered Start: 07-02-2022 Cipro 500 mg T ab See Instructions, Take 1 tab day prior to procedure and 1 tab day of procdure - afterwards, # 2 tab(s), Refills(s) 0, Pharmacy: [facility]/pharmacy #[id number], 163, cm, 07/02/22 9:34:00 EDT, Height/Length Dosing, [...] night for 1 month, then 2x/week thereafter, [facility], 158, cm, 02/08/23 12:39:00 EDT, Height/Length [...] Daily, # 30 tab(s), Refills(s) 0, Pharmacy: [facility]/pharmacy #[id number], 157, cm, 06/17/22 13:37:00 EDT, Height/Length [...] BID, # 120 tab(s), Refills(s) 0, Pharmacy: [facility]/pharmacy #[id number], 157.5, cm, 06/10/21 10:56:00 EDT, Height/Length [...] dizziness, # 15 tab(s), Refills(s) 0, Pharmacy: [facility] #72, 157, cm, 11/13/22 23:40:00 EDT, [...] Start: 10-01-2021 take 2 tablets by mo [facility] twice daily metformin 500 mg ER Tab 1,000 mg = 2 tab(s), Oral, BID, High blood sugar Start Date: 10/01/21 Status: Ordered Start: 10-29-2018 take 1 tablet by [facility] twice daily metFORMIN (GLUCOPHAGE) 1,000 mg tablet Take 1,000 mg by mouth twice daily. 0 10/29/2018 Active Comment on above: [facility] 24 hr mirabegron 25 mg extended release oral tablet (3 sources) beta3-Adrenergic Agonist Start: 02-09-20 take 1 tablet by mouth once daily Myrbetriq 25 mg oral tablet, extended release 25 mg = 1 tab(s), Oral, Daily, # 30 tab(s), Refills(s) 6, Pharmacy: [facility], 158, cm, 02/08/23 12:39:00 EDT, Height/Length Dosing, 82, kg, 02/08/23 12:39:00 EDT, Weight Dosing Start Date: 02/08/23 Status: Ordered NIFEdipine 30 mg oral tablet (1 source) Dihydropyridine Calcium Channel Lesly Start: 02-23-20 take 2 tablets by mouth once daily NIFEdipine 30 mg ER Tab 60 mg = 2 tab(s), Oral, Daily, # 60 tab(s), Refills(s) 5, Pharmacy: [facility], 160.5, cm, 02/19/24 13:38:00 EDT, Height/Length [...] day(s), # 60 tab(s), Refills(s) 1, Pharmacy: [facility]/pharmacy #[id number], 157, cm, 06/17/22 13:37:00 EDT, Height/Length [...] water, # 30 tab(s), Refills(s) 10, Pharmacy: [facility], 158, cm, 02/08/23 12:39:00 EDT, Height/Length Dosing, 82, kg, 02/08/23 12:39:00 EDT, Weight Dosing Start Date: 02/08/23 Status: Ordered Start: 10-30-2022 End: 01-28-2023 take 1 tablet by mouth twice daily Effer-K 20 mEq oral tablet, effervescent 20 mEq = 1 tab(s), Oral, BID, X 30 day(s), # 60 tab(s), Refills(s) 2, Pharmacy: [facility], 163, cm, 07/13/22 13:17:00 EST, Height/Length Dosing, 82, kg, 07/13/22 13:17:00 EST, Weight Dosing Start Date: 10/30/22 Stop Date: 01/28/23 Status: Ordered potassium citrate 10 meq extended release oral tablet (2 sources) Start: 08-19-2022 potassium CITRATE 10 mEq ER Tab 10 mEq, 1 tab(s), Oral, BID, 90 tab(s), Refill(s) 6, [facility]/pharmacy #[id number], 163, cm, 07/13/22 13:17:00 EST, Height/Length [...] Daily, # 14 tab(s), Refills(s) 0, Pharmacy: [facility], 158, cm, 05/09/23 8:54:00 EDT, Height/Length [...] Daily, # 30 tab(s), Refills(s) 11, Pharmacy: [facility]/pharmacy #[id number], 157.5, cm, 10/01/21 9:21:00 EST, Height/Length [...] BID, # 120 tab(s), Refills(s) 0, Pharmacy: [facility]/pharmacy #[id number], 157.5, cm, 06/10/21 10:56:00 EDT, Height/Length [...] mEq TbER take 1 tablet by luba th every twenty-four hours Klor-Con M20 20 MEQ 1 tablet with food Orally Once a day Active potassium citrate compoundin g powder (4 sources) Start: 02-08-2023 End: 06-08-2023 potassium citrate compoundin g powder 30 mEq, Oral, BID, 30mEq potassium citrate powder orally BID, Dissolve in 8 oz water, X 30 day(s), # 60 EA, Refills(s) 3, Pharmacy: [facility], 158, cm, 02/08/23 12:39:00 EDT, Height/Length Dosing, 82, kg, 02/08/23 12:39:00 EDT, Weight Dosing Start Date: 02/08/23 Stop Date: 06/08/23 Status: Ordered Start: 02-08-2023 End: 06-08-2023 potassium citrate compoundin g powder 30 mEq, Oral, BID, 30mEq potassium citrate powder orally BID, Dissolve in 8 oz water, X 30 day(s), # 60 EA, Refills(s) 3, Pharmacy: [facility], 158, cm, 02/08/23 12:39:00 EDT, Height/Length Dosing, 82, kg, 02/08/23 12:39:00 EDT, Weigh... 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] Onset: 2 10-08-2021 Episodic Other aftercare (1 source) Long-term current use of drug therapy; 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0-0.5 [facility] Comment on above: Performed By: #### 2 [id number] #### [facility] [address] [place] [address] Eosinophils/100 WBC (Bld) 1.6 % Normal 0.0-8.0 [facility] Comment on above: Performed By: #### 2 [id number] #### [facility] [address] [place] [address] Erythrocyte distribution width (RBC) [Ratio] 13.9 % Normal 10.9-14.2 [facility] Comment on above: Performed By: #### 2 [id number] #### [facility] [address] [place] [address] Hematocrit (Bld) [Volume fraction] 38.6 % Normal 34.0-46.0 [facility] Comment on above: Performed By: #### 2 143721 #### [facility] [address] [place] [address] Hemoglobin (Bld) [Mass/Vol] 13.2 g/dL Normal 12.0-16.0 [facility] Comment on above: Performed By: #### 2 624202 #### [facility] [address] [place] [address] Lymphocytes (Bld) [#/Vol] 0.7 E9/L Low 1.0-4.0 [facility] Comment on above: Performed By: #### 2 695365 #### [facility] [address] [place] [address] Lymphocytes/100 WBC (Bld) 8.2 % Low 14.0-50.0 [facility] Comment on above: Performed By: #### 2 467554 #### [facility] [address] [place] [address] MCH (RBC) [Entitic mass] 31.4 pg Normal 27.0-34.0 [facility] Comment on above: Performed By: #### 2 [id number] #### [facility] [address] [place] [address] MCHC (RBC) [Mass/Vol] 34.2 g/dL Normal 31.4-36.0 [facility] Comment on above: Performed By: #### 2 724167 #### [facility] [address] [place] [address] MCV (RBC) [Entitic vol] 92.0 fL Normal 80.0-100.0 [facility] Comment on above: Performed By: #### 2 472325 #### [facility] [address] [place] [address] Monocytes (Bld) [#/Vol] 0.6 E9/L Normal 0.2-1.0 [facility] Comment on above: Performed By: #### 2 640475 #### [facility] [address] [place] [address] Neutrophils (Bld) [#/Vol] 6.8 E9/L Normal 2.0-7.5 [facility] Comment on above: Performed By: #### 2 556747 #### [facility] [address] [place] [address] Neutrophils/100 WBC (Bld) 82.5 % High 36.0-75.0 [facility] Comment on above: Performed By: #### 2 841024 #### [facility] [address] [place] [address] Platelet 126.0 E9/L Low 150.0-500.0 [facility] Comment on above: Performed By: #### 2 149341 #### [facility] [address] [place] [address] Platelet mean volume (Bld) [Entitic vol] 8.0 fL Normal 6.4-10.8 [facility] Comment on above: Performed By: #### 2 028173 #### [facility] [address] [place] [address] RBC (Bld) [#/Vol] 4.2 E12/L Low 4.3-5.9 [facility] Comment on above: Performed By: #### 2 795379 #### [facility] [address] [place] [address] WBC corrected for nucl RBC Auto (Bld) [#/Vol] 8.3 E9/L Normal 4.0-11.0 [facility] Comment on above: Performed By: #### 2 934212 #### [facility] [address] [place] [address] CHEMISTRYOrdered By: Andrea Richter on 02-23-2024 Glucose [Mass/Vol] 183 mg/dL High 55 - 99 mg/dL [facility] C POC Subsection Comment on above: Result Comment: Modesto vanegas RN/ POC Device SN [id number] 1 Invalid Interpretation Code [facility] POC Subsection POC User ID [id number] 1 Invalid Interpretation Code [facility] POC Subsection POC Username AISHA PAK Invalid Interpretation Code [facility] POC Subsection Glucose [Mass/Vol] 148 mg/dL High 55 - 99 mg/dL [facility] POC Subsection Comment on above: Result Comment: Modesto vanegas RN/ POC Device SN [id number] 1 Invalid Interpretation Code [facility] POC Subsection POC User ID [id number] 1 Invalid Interpretation Code [facility] POC Subsection [...] 01-29 Glucose [Mass/Vol] 183 mg/dL High 55-99 [facility] Comment on above: Result Comment: Modesto vanegas RN/ Performed By: #### 2 [id number] #### [facility] [address] [place] [address] Discharge Instructionson Discharge Instructions [id number]# 1.00TIFF Normal [facility] Discharge Note-Nursingon Discharge Note-Nursing BASIASHAHANA :1950 Visit Date:02/19/2024 Inpatient Discharge Instructions Your [...] care physician. This Is Your Medications List [facility] Prescription (Liver panel) NIFEdipine [...] patient for hosptial follow up appointment. Where: [address] [place] [address] [facility] (1) Medications What How Much When Instructions Next Dose New NIFEdipine (NIFEdipine 30 mg ER Tab) 2 Tablets By Mouth Every day Refills: 5 Pickup at [facility] 02/23 @ 9 AM Unchanged atorvastatin [...] day 02/23 @ 9 AM Pharmacy Information [facility]: [address] [place], [place] [id number] [phone] Test Results CBC BMP WBC: 8.3 E9/L [...] 05:26:00) Chlorid (more content not included)... Normal [facility] HEMATOLOGYOrdered By: Wendy Pritchard on 02-23-2024 Basophils/100 [...] Inpatient Clinical Summaryon 02-23-2024 Inpatient Clinical Summary [place] [id number] Clinical Summary Person Information: Name: SHAHANA GRACE Age: 74 Years : 1950 Sex: Female PCP: ALBERTINA ARNDT DO Marital Status: Race: White Ethnicity: Non- or Language: Belarusian Visit Id: Visit Reason: Polydipsia; Nausea; Hyperglycemia; hyperglycemia Speciality: Acuity: Enc Type: Inpatient Med Service: Medical Arrival: 02/19/2024 13:27:15 Discharge: Dispo Type: Admitted as IP to this Hosp Address: [address] [place] [id number] Provider Notes: Diagnosis: 1:Complicated urinary tract infection; [...] disease Urge incontinence Glucosuria 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 With: Address: When: ALBERTINA ARNDT [address] [place] [address] [facility] (1) Comments: Doctor's office will call patient for hosptial follow up appointment. Patient Education Information: Diet - Basic Carbohydrate Counting (Custom) Normal [facility] Inpatient Patient Summaryon 02-23-2024 Inpatient Patient Summary [address] [address] Patient Discharge Instructions PERSON INFORMATION [...] is planned. With: Address: When: ALBERTINA ARNDT [address] [place] [address] Business (1) Comments: Doctor's office will call [...] OCCURRED DURING YOUR HOSPITAL STAY New Medications [facility], [address] [place], [place] [id number], [phone] NIFEdipine (NIFEdipine 30 mg ER Tab) 2 Tablets By Mouth every day. Refills: 5. Last Dose: ____Next Dose: ____ Medications to Continue Taking That Have Changed [facility], [address] [place], [place] [id number], [phone] START: ciprofloxacin (Cipro 500 mg Tab) 1 [...] ALL TIMES (more content not included)... Normal [facility] IntraOperative Documentson 0 02-23-2024 IntraOperative Documents [id number]# 1.00TIFF Normal [facility] Monitor Recordon 02-23-2024 Monitor Record [id number]# 1.00TIFF Normal [facility] BMPon 02-22-2024 Anion gap [Moles/Vol] 10 mmol/L Normal -16 [facility] Comment on above: Performed By: #### 2 [id number] #### [facility] [address] [place] [address] Calcium [Mass/Vol] 7.3 mg/dL Low 8.9-11.1 [facility] Comment on above: Performed By: #### 2 361680 #### [facility] [address] [place] [address] Chloride [Moles/Vol] 118 mmol/L High 101-111 [facility] Comment on above: Performed By: #### 2 854975 #### [facility] [address] [place] [address] CO2 [Moles/Vol] 19 mmol/L Low 21-31 [facility] Comment on above: Performed By: #### 2 552628 #### [facility] [address] [place] [address] Creatinine [Mass/Vol] 1.5 mg/dL High 0.5-1.3 [facility] Comment on above: Performed By: #### 2 [id number] #### [facility] [address] [place] [address] Glucose [Mass/Vol] 254 mg/dL High 55-199 [facility] Comment on above: Performed By: #### 2 343232 #### [facility] [address] [place] [address] Potassium [Moles/Vol] 3.9 mmol/L Normal 3.5-5.3 [facility] Comment on above: Performed By: #### 2 863780 #### [facility] [address] [place] [address] Sodium [Moles/Vol] 143 mmol/L Normal 135-145 [facility] Comment on above: Performed By: #### 2 231116 #### [facility] [address] [place] [address] Urea nitrogen [Mass/Vol] 33 mg/dL High 5-21 [facility] Comment on above: Performed By: #### 2 199096 #### [facility] [address] [place] [address] Urea nitrogen/Creatinine [Mass ratio] 22 No Units High 10-20 [facility] Comment on above: Performed By: #### 2 545666 #### [facility] [address] [place] [address] CBC w/ Auto Diffon 4 Basophils/100 WBC (Bld) 0.2 % Normal 0.0-2.0 [facility] Comment on above: Performed By: #### 2 818317 #### [facility] [address] [place] [address] Basophils/Leukocytes Auto (Bld) [Pure # fraction] 0.0 E9/L Normal 0.0-0.2 [facility] Comment on above: Performed By: #### 2 943777 #### [facility] [address] [place] [address] Eosinophils (Bld) [#/Vol] 0.1 E9/L Normal 0.0-0.5 [facility] Comment on above: Performed By: #### 2 318659 #### [facility] [address] [place] [address] Eosinophils/100 WBC (Bld) 1.5 % Normal 0.0-8.0 [facility] Comment on above: Performed By: #### 2 251812 #### [facility] [address] [place] [address] Erythrocyte distribution width (RBC) [Ratio] 13.9 % Normal 10.9-14.2 [facility] Comment on above: Performed By: #### 2 833075 #### [facility] [address] [place] [address] Hematocrit (Bld) [Volume fraction] 39.5 % Normal 34.0-46.0 [facility] Comment on above: Performed By: #### 2 508032 #### [facility] [address] [place] [address] Hemoglobin (Bld) [Mass/Vol] 13.1 g/dL Normal 12.0-16.0 [facility] Comment on above: Performed By: #### 2 806977 #### [facility] [address] [place] [address] Lymphocytes (Bld) [#/Vol] 0.8 E9/L Low 1.0-4.0 [facility] Comment on above: Performed By: #### 2 451359 #### [facility] [address] [place] [address] Lymphocytes/100 WBC (Bld) 9.5 % Low 14.0-50.0 [facility] Comment on above: Performed By: #### 2 556985 #### [facility] [address] [place] [address] MCH (RBC) [Entitic mass] 30.8 pg Normal 27.0-34.0 [facility] Comment on above: Performed By: #### 2 574133 #### [facility] [address] [place] [address] MCHC (RBC) [Mass/Vol] 33.2 g/dL Normal 31.4-36.0 [facility] Comment on above: Performed By: #### 2 148582 #### [facility] [address] [place] [address] MCV (RBC) [Entitic vol] 92.8 fL Normal 80.0-100.0 [facility] Comment on above: Performed By: #### 2 862034 #### [facility] [address] [place] [address] Monocytes (Bld) [#/Vol] 0.6 E9/L Normal 0.2-1.0 [facility] Comment on above: Performed By: #### 2 317918 #### [facility] [address] [place] [address] Neutrophils (Bld) [#/Vol] 7.3 E9/L Normal 2.0-7.5 [facility] Comment on above: Performed By: #### 2 094314 #### [facility] [address] [place] [address] Neutrophils/100 WBC (Bld) 81.8 % High 36.0-75.0 [facility] Comment on above: Performed By: #### 2 383671 #### [facility] [address] [place] [address] Platelet mean volume (Bld) [Entitic vol] 8.5 fL Normal 6.4-10.8 [facility] Comment on above: Performed By: #### 2 617938 #### [facility] [address] [place] [address] Platelets (Bld) [#/Vol] 122.0 E9/L Low 150.0-500.0 [facility] Comment on above: Performed By: #### 2 060740 #### [facility] [address] [place] [address] RBC (Bld) [#/Vol] 4.3 E12/L Normal 4.3-5.9 [facility] Comment on above: Performed By: #### 2 085391 #### [facility] [address] [place] [address] WBC corrected for nucl RBC Auto (Bld) [#/Vol] 8.9 E9/L Normal 4.0-11.0 [facility] Comment on above: Performed By: #### 2 895038 #### [facility] [address] [place] [address] CHEMISTRYOrdered By: Lab ROP User on 02-22-2024 Glucose [Mass/Vol] 234 mg/dL High 55 - 99 mg/dL [facility] POC Subsection Comment on above: Result Comment: Modesto vanegas RN/ POC Device SN [id number] 1 Invalid Interpretation Code [facility] POC Subsection POC User ID [id number] 1 Invalid Interpretation Code [facility] POC Subsection POC Username CAREY HATHAWAY Invalid Interpretation Code [facility] POC Subsection CHEMISTRYOrdered By: [...] 01-29 Glucose [Mass/Vol] 234 mg/dL High 55-99 [facility] Comment on above: Result Comment: [place] ANDRES Performed By: #### 2 [id number] #### [facility] [address] [place] [address] Glucose [Mass/Vol] 306 mg/dL High 55-99 [facility] Comment on above: Result Comment: [place] vanegas RN/ Performed By: #### 2 [id number] #### [facility] [address] [place] [address] Glucose [Mass/Vol] 303 mg/dL High 55-99 [facility] Comment on above: Result Comment: [place] vanegas RN/ Performed By: #### 2 [id number] #### [facility] [address] [place] [address] Glucose [Mass/Vol] 212 mg/dL High 55-99 [facility] Comment on above: Result Comment: [place] vanegas RN/ Performed By: #### 2 [id number] #### [facility] [address] [place] [address] HEMATOLOGYOrdered By: SYSTEM SYSTEM on 02-22-2024 Basophils/100 [...] Inpatient Clinical Summaryon 02-22-2024 Inpatient Clinical Summary [place] [address] Clinical Summary Person Information: Name: SHAHANA GRACE Age: 74 Years : 1950 Sex: Female PCP: ALBERTINA ARNDT DO Marital Status: Race: White Ethnicity: Non- or Language: Belarusian Visit Id: Visit Reason: Polydipsia; Nausea; Hyperglycemia; hyperglycemia Speciality: Acuity: Enc Type: Inpatient Med Service: Medical Arrival: 02/19/2024 13:27:15 Discharge: Dispo Type: Admitted as IP to this Hosp Address: [address] [place] [id number] Provider Notes: Diagnosis: 1:Complicated urinary tract infection; [...] disease Urge incontinence Glucosuria 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 [facility] Interdisciplinary Note - Galo e Manageron 02-22-2024 Interdisciplinary Note - Interdisciplinary Professor Pt is awake and alert in bed, previously rounded with Dr. Barrett. No family present. Pt is on phone with family providing updates at this time. Declines any concerns or DC needs. Medicare rights reviewed. . PCP verified and insurance information reviewed and DME discussed. Contact information provided and white board updated. [facility] Comment on above: Result Comment: Elec tronically Signed By: Samir MARCUM, Ayleen\.hector\Date and Time Signed: 02/22/24 09:22 EDT Monitor Recordon 02-22-2024 Monitor Record [id number]# 1.00TIFF [facility] Monitor Record [id number]# 1.00TIFF [facility] Monitor Record [id number]# 1.00TIFF [facility] Progress Note-Physicianon Progress Note-Physician Subjective Day #4 IV Clydeyoandy Patient seen and examined this morning. [...] Lymph Auto: 9.5 % Low (02/22/24 05:20:00) [place] Auto: 7 % (02/22/24 05:20:00) Eos Auto: 1.5 % (02/22/24 05:20:00) Basophil Auto: 0.2 % (02/22/24 05:20:00) Neutro Absolute: 7.3 E9/L (02/22/24 05:20:00) Lymph Absolute: 0.8 E9/L Low (02/22/24 05:20:00) [place] Absolute: 0.6 E9/L (02/22/24 05:20:00) Eos Absolute: [...] mg/dL High (02/22/24 11:20:00) POC Device SN: [id number] (02/22/24 11:20:00) POC User ID: [id number] (02/22/24 11:20:00) POC Username: POC Username (02/22/24 [...] p.o. 7. (more content not included)... Normal [facility] Comment on above: Result Comment: Elec tronically Signed By: Jhonny Barrett DObr\Date and Time Signed: 02/22/24 13:48 EDT eGFRon 02-22-2024 eGFR 37 mL/min/1.73 m2 Low >=59 [facility] Comment on above: Order Comment: Order added by Discern Expert. Performed By: #### 1 [id number] #### [facility] [address] [place] [address] BMPon 02-21-2024 Anion gap [Moles/Vol] 13 mmol/L Normal 6-16 [facility] Comment on above: Performed By: #### 2 [id number] #### [facility] [address] [place] [address] Calcium [Mass/Vol] 7.7 mg/dL Low 8.9-11.1 [facility] Comment on above: Performed By: #### 2 [id number] #### [facility] [address] [place] [address] Chloride [Moles/Vol] 114 mmol/L High 101-111 [facility] Comment on above: Performed By: #### 2 [id number] #### [facility] [address] [place] [address] CO2 [Moles/Vol] 20 mmol/L Low 21-31 [facility] Comment on above: Performed By: #### 2 [id number] #### [facility] [address] [place] [address] Creatinine [Mass/Vol] 1.7 mg/dL High 0.5-1.3 [facility] Comment on above: Performed By: #### 2 [id number] #### [facility] [address] [place] [address] Glucose [Mass/Vol] 289 mg/dL High 55-199 [facility] Comment on above: Performed By: #### 2 [id number] #### [facility] [address] [place] [address] Potassium [Moles/Vol] 4.2 mmol/L Normal 3.5-5.3 [facility] Comment on above: Performed By: #### 2 [id number] #### [facility] [address] [place] [address] Sodium [Moles/Vol] 143 mmol/L Normal 135-145 [facility] Comment on above: Performed By: #### 2 [id number] #### [facility] [address] [place] [address] Urea nitrogen [Mass/Vol] 37 mg/dL High 5-21 [facility] Comment on above: Performed By: #### 2 [id number] #### [facility] [address] [place] [address] Urea nitrogen/Creatinine [Mass ratio] 22 No Units High 10-20 [facility] Comment on above: Performed By: #### 2 [id number] #### [facility] [address] [place] [address] C Urineon 02-21-2024 Bacteria identified Cx Nom [...] Locations R1: This test was performed at: [facility], [address] [place] [address], [id number]- , , [facility] Comment on above: Performed By: #### 2 [id number] #### [facility] [address] [place] [address] CHEMISTRYOrdered By: SYSTEM SYSTEM on 02-21-2024 Anion [...] 01-29 Glucose [Mass/Vol] 323 mg/dL High 55-99 [facility] Comment on above: Result Comment: [place] ANDRES Performed By: #### 2 [id number] #### [facility] [address] [place] [address] Glucose [Mass/Vol] 240 mg/dL High 55-99 [facility] Comment on above: Result Comment: [place] ANDRES Performed By: #### 2 [id number] #### [facility] [address] [place] [address] Glucose [Mass/Vol] 287 mg/dL High 55- [facility] Comment on above: Performed By: #### 2 [id number] #### [facility] [address] [place] [address] Glucose [Mass/Vol] 201 mg/dL High 55-99 [facility] Comment on above: Result Comment: [place] ANDRES Performed By: #### 2 [id number] #### [facility] [address] [place] [address] Glucose [Mass/Vol] 194 mg/dL High 55-99 [facility] Comment on above: Result Comment: Repe at Test Performed By: #### 2 [id number] #### [facility] [address] [place] [address] Consent for Anesthesiaon Consent for Anesthesia [id number]# 1.00TIFF Normal [facility] Consent for Procedure/Surger yon 02-21-2024 Consent for Procedure/Surgery [id number]# 1.00TIFF Normal [facility] MquV2iyf 02-21-2024 HbA1c (Bld) [Mass fraction] 11.3 % High <=5.9 [facility] Comment on above: Performed By: #### 7 [id number] #### [facility] [address] [place] [address] Interdisciplinary Note - Galo e Manageron 02-21-2024 Interdisciplinary Note - Interdisciplinary Professor Patient is awake and alert in bed, [...] Contact information provided and white board updated. [facility] Comment on above: Result Comment: Elec tronically Signed By: Samir MARCUM, Ayleen\.hector\Date and Time Signed: 02/21/24 09:45 EDT Interdisciplinary Note - Soc ial Workeron 02-21-2024 Interdisciplinary Note - Cell Tender Helper There was a positive SDOH screen for safety received in error. This patient lives with her spouse and has been for 40 years. She voiced that she has no safety concerns. There were no psychosocial needs identified. Normal [facility] IntraOperative Documentson 0 02-21-2024 IntraOperative Documents [id number]# 1.00TIFF [facility] Main OR Intraoperative Recor don 02-21-2024 Main OR Intraoperative Record IntraOp Document Type FT Summary Primary Physician: JAILENE CHISHOLM, Glynn Mcdermott Finalized Date/Time: 02/21/24 14:17:37 Pt. Name: SHAHANA GRACE /Sex: 1950 Female Med Rec #: [id number] Physician: Glynn ALARCON DO Financial #: [id number] Pt. Type: I Room/Bed: [place] [address] Admit/Disch: 02/19/24 13:27:15 - Institution: Case Times [...] Role Performed Anesthesiologist of Surgeon - Primary Route Sales Specialist - Primary Record Time In 02/20/24 10:16:00 [...] RT(R), Fallon Role Performed Scrub - Primary REMOTELY PILOTED VEHICLE CONTROLLER Senior Quantity Surveyor Time In 02/20/24 10:16:00 02/20/24 10:16:00 02/20/24 [...] X-ray Applicable) PreOp Antibiotic Yes Time Out Glynn DENT MD, Given Participants MD Ingrid, Jossy FFranklin RN, Shara Muñiz, Isaias KIDD, Naya Qureshi [...] and tissue Entry 1 Skin Integrity Intact, [place], Warm, and Skin Abnormality No Dry Outcomes Met? Yes Last Modified By: Shara Reid RN 02/20/24 11:11:55 Post-Care Text: The patient is free from signs and symptoms of injur (more content not included)... Normal [facility] Monitor Recordon 02-21-2024 Monitor Record [id number]# 1.00TIFF Normal [facility] Monitor Record [id number]# 1.00TIFF [facility] Monitor Record [id number]# 1.00TIFF Normal [facility] Monitor Record [id number]# 1.00TIFF Normal [facility] Progress Note-Physicianon Progress Note-Physician Subjective Day 3 [...] mmol/L (02/21/24 09:19:00) Potassium Lvl: 4.2 mmol/L (02/21/24:19:00) Chloride: 114 mmol/L High (02/21/24:19:00) CO2: 20 mmol/L Low (02/21/24:19:00) AGAP: 13 mEq/L (02/21/24:19:00) Calcium Lvl: 7.7 mg/dL Low (02/21/24:19:00) Glucose Cap: 287 mg/dL High (02/21/24 11:33:00) POC Device SN: [id number] (02/21/24 11:33:00) POC User ID: [id number] (02/21/24 11:33:00) POC Username: TYRONE ZAPATA (02/21/24 [...] as needed (more content not included)... Normal [facility] Comment on above: Result Comment: Elec tronically Signed By: Jhonny Barrett DO\.br\Date and Time Signed: 02/21/24 12:11 EDT eGFRon 02-21-2024 eGFR 31 mL/min/1.73 m2 Low >=59 [facility] Comment on above: Order Comment: Order added by Discern Expert. Performed By: #### 1 [id number] #### [facility] [address] [place] [address] BMPon 02-20-2024 Anion gap [Moles/Vol] 13 mmol/L Normal 6-16 [facility] Comment on above: Performed By: #### 2 [id number] #### [facility] [address] [place] [address] Calcium [Mass/Vol] 8.1 mg/dL Low 8.9-11.1 [facility] Comment on above: Performed By: #### 2 004075 #### [facility] [address] [place] [address] Chloride [Moles/Vol] 112 mmol/L High 101-111 [facility] Comment on above: Performed By: #### 2 [id number] #### [facility] [address] [place] [address] CO2 [Moles/Vol] 24 mmol/L Normal 21-31 [facility] Comment on above: Performed By: #### 2 808935 #### [facility] [address] [place] [address] Creatinine [Mass/Vol] 2.1 mg/dL High 0.5-1.3 [facility] Comment on above: Performed By: #### 2 [id number] #### [facility] [address] [place] [address] Glucose [Mass/Vol] 301 mg/dL High 55-199 [facility] Comment on above: Performed By: #### 2 432486 #### [facility] [address] [place] [address] Potassium [Moles/Vol] 4.4 mmol/L Normal 3.5-5.3 [facility] Comment on above: Performed By: #### 2 877710 #### [facility] [address] [place] [address] Sodium [Moles/Vol] 145 mmol/L Normal 135-145 [facility] Comment on above: Performed By: #### 2 183756 #### [facility] [address] [place] [address] Urea nitrogen [Mass/Vol] 38 mg/dL High 5-21 [facility] Comment on above: Performed By: #### 2 [id number] #### [facility] [address] [place] [address] Urea nitrogen/Creatinine [Mass ratio] 18 No Units Normal 10-20 [facility] Comment on above: Performed By: #### 2 705598 #### [facility] [address] [place] [address] CBC w/ Auto Diffon 4 Basophils/100 WBC (Bld) 0.3 % Normal 0.0-2.0 [facility] Comment on above: Performed By: #### 2 985548 #### [facility] [address] [place] [address] Basophils/Leukocytes Auto (Bld) [Pure # fraction] 0.0 E9/L Normal 0.0-0.2 [facility] Comment on above: Performed By: #### 2 764057 #### [facility] [address] [place] [address] Eosinophils (Bld) [#/Vol] 0.0 E9/L Normal 0.0-0.5 [facility] Comment on above: Performed By: #### 2 930757 #### [facility] [address] [place] [address] Eosinophils/100 WBC (Bld) 0.1 % Normal 0.0-8.0 [facility] Comment on above: Performed By: #### 2 465802 #### [facility] [address] [place] [address] Erythrocyte distribution width (RBC) [Ratio] 14.0 % Normal 10.9-14.2 [facility] Comment on above: Performed By: #### 2 831809 #### [facility] [address] [place] [address] Hematocrit (Bld) [Volume fraction] 45.0 % Normal 34.0-46.0 [facility] Comment on above: Performed By: #### 2 831341 #### [facility] [address] [place] [address] Hemoglobin (Bld) [Mass/Vol] 14.8 g/dL Normal 12.0-16.0 [facility] Comment on above: Performed By: #### 2 697304 #### [facility] [address] [place] [address] Lymphocytes (Bld) [#/Vol] 1.3 E9/L Normal 1.0-4.0 [facility] Comment on above: Performed By: #### 2 628682 #### [facility] [address] [place] [address] Lymphocytes/100 WBC (Bld) 9.6 % Low 14.0-50.0 [facility] Comment on above: Performed By: #### 2 126978 #### [facility] [address] [place] [address] MCH (RBC) [Entitic mass] 30.8 pg Normal 27.0-34.0 [facility] Comment on above: Performed By: #### 2 382581 #### [facility] [address] [place] [address] MCHC (RBC) [Mass/Vol] 32.9 g/dL Normal 31.4-36.0 [facility] Comment on above: Performed By: #### 2 352392 #### [facility] [address] [place] [address] MCV (RBC) [Entitic vol] 93.5 fL Normal 80.0-100.0 [facility] Comment on above: Performed By: #### 2 747053 #### [facility] [address] [place] [address] Monocytes (Bld) [#/Vol] 0.9 E9/L Normal 0.2-1.0 [facility] Comment on above: Performed By: #### 2 470571 #### [facility] [address] [place] [address] Neutrophils (Bld) [#/Vol] 11.0 E9/L High 2.0-7.5 [facility] Comment on above: Performed By: #### 2 971761 #### [facility] [address] [place] [address] Neutrophils/100 WBC (Bld) 82.9 % High 36.0-75.0 [facility] Comment on above: Performed By: #### 2 [id number] #### [facility] [address] [place] [address] Platelet mean volume (Bld) [Entitic vol] 8.2 fL Normal 6.4-10.8 [facility] Comment on above: Performed By: #### 2 426694 #### [facility] [address] [place] [address] Platelets (Bld) [#/Vol] 144.0 E9/L Low 150.0-500.0 [facility] Comment on above: Performed By: #### 2 [id number] #### [facility] [address] [place] [address] RBC (Bld) [#/Vol] 4.8 E12/L Normal 4.3-5.9 [facility] Comment on above: Performed By: #### 2 578291 #### [facility] [address] [place] [address] WBC corrected for nucl RBC Auto (Bld) [#/Vol] 13.2 E9/L High 4.0-11.0 [facility] Comment on above: Performed By: #### 2 589103 #### [facility] [address] [place] [address] CHEMISTRYOrdered By: Abisai Lutz on 02-20-2024 HbA1c (Bld) [Mass fraction] 11.3 % High <=5.9% [facility] ChemAutoSS CT Abdomen/Pelvis w/o [...] Oral contrast amount in ml's: 0 Normal [facility] Capillary Glucose POCon 01-29 Glucose [Mass/Vol] 302 mg/dL High 55-99 [facility] Comment on above: Result Comment: [place] ANDRES Performed By: #### 2 [id number] #### [facility] [address] [place] [address] Glucose [Mass/Vol] 262 mg/dL High 55-99 [facility] Comment on above: Result Comment: [place] ANDRES Performed By: #### 2 [id number] #### [facility] [address] [place] [address] Glucose [Mass/Vol] 192 mg/dL High 55-99 [facility] Comment on above: Result Comment: [place] ANDRES Performed By: #### 2 [id number] #### [facility] [address] [place] [address] Glucose [Mass/Vol] 202 mg/dL High 55-99 [facility] Comment on above: Result Comment: [place] ANDRES Performed By: #### 2 [id number] #### [facility] [address] [place] [address] Glucose [Mass/Vol] 249 mg/dL High 55-99 [facility] Comment on above: Result Comment: [place] ANDRES Performed By: #### 2 [id number] #### [facility] [address] [place] [address] Glucose [Mass/Vol] 384 mg/dL High 55-99 [facility] Comment on above: Result Comment: [place] ANDRES Performed By: #### 2 [id number] #### [facility] [address] [place] [address] Consultation Noteon 02-20-20 24 Consultation Note Patient: SHAHANA GRACE Age: 74 years Sex: Female : 1950 Associated Diagnoses: None Author: Glynn DENT MD Chief Complaint 02/19/2024 20:18 EDT Hyperglycemia 02/19/2024 13:28 EDT pt presents to ed via [facility] d/t hyperglycemia. pt reports not feeling well [...] BID, # 10 tab(s), Refills(s) 0, Pharmacy: [facility], 160.5, cm, 08/05/23 13:21:00 EST, Height/Length Dosing, 83, kg, 08/05/23 13:21:00 EST, Weight Dosing Klor-Con/EF 25 mEq oral tablet, effervescent: 25 mEq = 1 tab(s), Oral, Daily, dissolve in 4 ounces of water, # 30 tab(s), Refills(s) 10, Pharmacy: [facility], 158, cm, 02/08/23 12:39:00 EDT, Height/Length Dosing, 82, kg, 02/08/23 12:39:00 EDT, Weight Dosing Liver panel: Liver panel, Print Requisition, Supply Metoprolol tartrate 50 mg Tab: 50 mg = 1 tab(s), Oral, BID, # 120 tab(s), Refills(s) 0, Pharmacy: [facility]/pharmacy #[id number], 157.5, cm, 06/10/21 10:56:00 EDT, Height/Length Dosing, 79.4, kg, 06/10/21 10:56:00 EDT, Weight Dosing NS Flush 10 mL: See Instructions, 60 EA, Refill(s) 0, 10 mL IV Pushprior to and after administration of fluconazole and as needed Vesicare 10 mg Tab: 10 mg = 1 tab(s), Oral, Daily, # 14 tab(s), Refills(s) 0, Pharmacy: [facility], 158, cm, 05/09/23 8:54:00 EDT, Height/Length Dosing, 90.4, kg, 05/09/23 8:54:00 EDT, Weight Dosing lisinopril 5 mg Tab: 5 mg = 1 tab(s), Oral, BID, # 120 tab(s), Refills(s) 0, [id number] 157.5, cm, 06/10/21 10:56:00 EDT, Height/Length Dosing, 79.4, kg, 06/10/21 10:56:00 EDT, Weight Dosing meclizine 12.5 mg Tab: 12.5 mg = 1 tab(s), Oral, TID, PRN for dizziness, # 15 tab(s), Refills(s) 0, Pharmacy: [facility], 157, cm, 11/13/22 23:40:00 EDT, Height/Length Dosing, 83.2, kg, 11/13/22 23:40:00 EDT, Weight Dosing Documented Medications Documented Basaglar KwikPen 100 units/mL subcutaneous solution: 40 unit(s), SubCutaneous, qAM, Refills(s) 0, Blood glucose Plavix 75 mg Tab: See Instructions, Mo (more content not included)... Normal [facility] Comment on above: Result Comment: Elec tronically Signed By: JAILENE CHISHOLM, Glynn Neff.br\Date and Time Signed: 02/20/24 10:48 EDT ED Note-Physicianon 02-20-20 ED Note-Physician Basic Information Time Seen: Cj CASTANEDA, Luis Otto 02/19/2024 13:34 Chief Complaint pt presents to ed via [facility] d/t hyperglycemia. pt reports not feeling well [...] mL, Inject (more content not included)... Normal [facility] Comment on above: Result Comment: Elec tronically Signed By: Luis Corona PA-C\.br\Date and Time Signed: 02/19/24 20:04 EDT\.br\Electronically Co-Signed [...] SHAHANA GRACE/Sex: 1950 Female Med Rec #: [id number] Physician: Glynn ALARCON DO Financial #: [id number] Pt. Type: I Room/Bed: N305 Admit/Disch: 02/19/24 [...] Role Performed Anesthesiologist of Surgeon - Primary Route Sales Specialist - Primary Record Time In 02/20/24 10:16:00 [...] RT(R), Fallon Role Performed Scrub - Primary REMOTELY PILOTED VEHICLE CONTROLLER Senior Quantity Surveyor Time In 02/20/24 10:16:00 02/20/24 10:16:00 02/20/24 [...] CHISHOLM, Glynn Mcdermott, Given Participants MD Ingrid, Jossy Greene, Franklin MARCUM, Shara Muñiz, Isaias KIDD, Naya Qureshi Alejandro, [...] STENT INSERTION Primary Procedure Yes Primary Surgeon JAILENE CHISHOLM, Glynn Mcdermott Start 02/20/24 10:29:00 Stop 02/20/24 10:37:00 Anesthesia [...] and tissue Entry 1 Skin Integrity Intact, [place], Warm, and Skin Abnormality No Dry Outcomes Met? Yes Last Modified By: Shara Reid RN 02/20/24 11:11:55 Post-Care Text: The patient is free from signs and symptoms of injury caused by extraneous objects Patient Positioning FT Pre-Care Text: Identi (more content not included)... Normal [facility] Main OR PACU I Recordon 01-29 Main OR PACU I Record PACU Phase I Document Type FT Summary Primary Physician: Glynn DENT MD Finalized Date/Time: 02/20/24 11:40:13 Pt. Name: SHAHANA GRACE./Sex: 1950 Female Med Rec #: [id number] Physician: Glynn ALARCON DO Financial #: [id number] Pt. Type: I Room/Bed: [place] [address] Admit/Disch: 02/19/24 13:27:15 - Institution: Case Times [...] By: Fannie Marcos RN 02/20/24 11:40 Normal [facility] Main OR Preoperative Recordo n 02-20-2024 Main OR Preoperative Record Holding Area Document Type FT Summary Primary Physician: Glynn DENT MD Finalized Date/Time: 02/20/24 13:32:52 Pt. Name: BASIA SHAHANA Echavarria/Sex: 1950 Female Med Rec #: [id number] Physician: Glynn ALARCON DO Financial #: [id number] Pt. Type: I Room/Bed: [facility] [place]/ Admit/Disch: 02/19/24 13:27:15 - Institution: Case Times [...] By: Shara Reid RN 02/20/24 13:32 Normal [facility] Monitor Recordon 02-20-2024 Monitor Record [id number]# 1.00TIFF Normal [facility] Monitor Record [id number]# 1.00TIFF Normal [facility] Monitor Record [id number]# 1.00TIFF Normal [facility] Monitor Record [id number]# 1.00TIFF Normal [facility] Monitor Record [id number]# 1.00TIFF Normal [facility] Monitor Record [id number]# 1.00TIFF Normal [facility] Operative Reporton Operative Report Patient: SHAHANA GRACE Age: 74 years Sex: Female : 1950 Associated Diagnoses: None Author: Glynn DENT MD Postoperative Information Procedure: 1. Cystoscopy. 2. Bilateral retrograde pyelogram. 3. Placement of 6 Palauan variable length right ureteral stent. #4. Extraction [...] ureter sent for stone analysis. Prosthesis: 6 Palauan variable length right ureteral stent. . Estimated [...] 2% lidocaine gel per urethra. A 22 Palauan Stortz cystoscope was passed per urethra and into the bladder. Careful panendoscopy in the bladder revealed diffuse cystitis with copious inflammatory debris on the base of the bladder. This was irrigated out. There was no evidence of any tumors or stones within the bladder. I then passed a 8 Palauan cone-tip catheter through the scope and cannulated [...] the kidney. I then slid a 6 Palauan variable length ureteral stent over the wire [...] her last hospitalization.. Anesthesia type: General. Normal [facility] Comment on above: Result Comment: Elec tronically Signed By: Glynn DENT MD.hector\Date and Time Signed: 02/20/24 10:57 EDT XR [...] mGy = na DAP = na Normal [facility] XR Urography Retrograde Bila teralon 02-20-2024 XR [...] mGy = 12.80 DAP = 1080.56 Normal [facility] eGFRon 02-20-2024 eGFR 24 mL/min/1.73 m2 Low >=59 [facility] Comment on above: Order Comment: Order added by Discern Expert. Performed By: #### 1 [id number] #### [facility] [address] [place] [address] BMPon 02-19-2024 Calcium [Mass/Vol] 9.2 mg/dL Normal 8.9-11.1 [facility] Comment on above: Performed By: #### 2 [id number] #### [facility] [address] [place] [address] Chloride [Moles/Vol] 103 mmol/L Normal 101-111 [facility] Comment on above: Performed By: #### 2 [id number] #### [facility] [address] [place] [address] CO2 [Moles/Vol] 25 mmol/L Normal 21-31 [facility] Comment on above: Performed By: #### 2 [id number] #### [facility] [address] [place] [address] Potassium [Moles/Vol] 4.4 mmol/L Normal 3.5-5.3 [facility] Comment on above: Performed By: #### 2 129178 #### [facility] [address] [place] [address] Sodium [Moles/Vol] 141 mmol/L Normal 135-145 [facility] Comment on above: Performed By: #### 2 [id number] #### [facility] [address] [place] [address] Glucose [Mass/Vol] 559 mg/dL Abnormal 55-199 [facility] Comment on above: Result Comment: Crit ical Result [id number] Called to and read back by: MADELINE FERNANDEZ at: 02/19/2024 14:58:18 by:PETE Critical Result Verified by Repeat Analysis Performed By: #### 2 [id number] #### [facility] [address] [place] [address] Anion gap [Moles/Vol] 17 mmol/L High 6-16 [facility] Comment on above: Performed By: #### 2 235794 #### [facility] [address] [place] [address] Creatinine [Mass/Vol] 2.1 mg/dL High 0.5-1.3 [facility] Comment on above: Performed By: #### 2 674536 #### [facility] [address] [place] [address] Urea nitrogen [Mass/Vol] 35 mg/dL High 5-21 [facility] Comment on above: Performed By: #### 2 753451 #### [facility] [address] [place] [address] Urea nitrogen/Creatinine [Mass ratio] 17 No Units Normal 10-20 [facility] Comment on above: Performed By: #### 2 535896 #### [facility] [address] [place] [address] BOHBon 02-19-2024 Beta HB Qnt 0.72 mmol/L High 0.02-0.27 [facility] Comment on above: Performed By: #### 2 [id number] #### [facility] [address] [place] [address] CBC w/ Auto Diffon 4 Basophils/100 WBC (Bld) 0.2 % Normal 0.0-2.0 [facility] Comment on above: Performed By: #### 2 [id number] #### [facility] [address] [place] [address] Basophils/Leukocytes Auto (Bld) [Pure # fraction] 0.0 E9/L Normal 0.0-0.2 [facility] Comment on above: Performed By: #### 2 [id number] #### [facility] [address] [place] [address] Eosinophils (Bld) [#/Vol] 0.0 E9/L Normal 0.0-0.5 [facility] Comment on above: Performed By: #### 2 051464 #### [facility] [address] [place] [address] Eosinophils/100 WBC (Bld) 0.0 % Normal 0.0-8.0 [facility] Comment on above: Performed By: #### 2 137759 #### [facility] [address] [place] [address] Erythrocyte distribution width (RBC) [Ratio] 13.5 % Normal 10.9-14.2 [facility] Comment on above: Performed By: #### 2 [id number] #### [facility] [address] [place] [address] Hematocrit (Bld) [Volume fraction] 54.0 % High 34.0-46.0 [facility] Comment on above: Performed By: #### 2 924873 #### [facility] [address] [place] [address] Hemoglobin (Bld) [Mass/Vol] 17.8 g/dL High 12.0-16.0 [facility] Comment on above: Performed By: #### 2 730743 #### [facility] [address] [place] [address] Lymphocytes (Bld) [#/Vol] 0.6 E9/L Low 1.0-4.0 [facility] Comment on above: Performed By: #### 2 365775 #### [facility] [address] [place] [address] Lymphocytes/100 WBC (Bld) 4.0 % Low 14.0-50.0 [facility] Comment on above: Performed By: #### 2 021068 #### [facility] [address] [place] [address] MCH (RBC) [Entitic mass] 30.5 pg Normal 27.0-34.0 [facility] Comment on above: Performed By: #### 2 510697 #### [facility] [address] [place] [address] MCHC (RBC) [Mass/Vol] 33.0 g/dL Normal 31.4-36.0 [facility] Comment on above: Performed By: #### 2 712203 #### [facility] [address] [place] [address] MCV (RBC) [Entitic vol] 92.2 fL Normal 80.0-100.0 [facility] Comment on above: Performed By: #### 2 205751 #### [facility] [address] [place] [address] Monocytes (Bld) [#/Vol] 0.8 E9/L Normal 0.2-1.0 [facility] Comment on above: Performed By: #### 2 770901 #### [facility] [address] [place] [address] Neutrophils (Bld) [#/Vol] 12.9 E9/L High 2.0-7.5 [facility] Comment on above: Performed By: #### 2 504491 #### [facility] [address] [place] [address] Neutrophils/100 WBC (Bld) 90.2 % High 36.0-75.0 [facility] Comment on above: Performed By: #### 2 271847 #### [facility] [address] [place] [address] Platelet mean volume (Bld) [Entitic vol] 8.2 fL Normal 6.4-10.8 [facility] Comment on above: Performed By: #### 2 714010 #### [facility] [address] [place] [address] Platelets (Bld) [#/Vol] 140.0 E9/L Low 150.0-500.0 [facility] Comment on above: Performed By: #### 2 515470 #### [facility] [address] [place] [address] RBC (Bld) [#/Vol] 5.9 E12/L Normal 4.3-5.9 [facility] Comment on above: Performed By: #### 2 212099 #### [facility] [address] [place] [address] WBC corrected for nucl RBC Auto (Bld) [#/Vol] 14.3 E9/L High 4.0-11.0 [facility] Comment on above: Performed By: #### 2 151537 #### [facility] [address] [place] [address] CHEMISTRYOrdered By: SYSTEM SYSTEM on 02-19-2024 Lactic [...] Sensitivity Troponin I Instructions For Use, Jairo Ellsworth, March 2018) Albumin [Mass/Vol] 4.1 g/dL Normal [...] 23.4 s Low 25.1 - 36.5 second(s) [facility] Auto Coag Comment on [...] the same coagulation reagent and instrumentation as [facility] [place]. Currently there are no coagulation studies available worldwide for children to 14 days, and no normal ranges. Heparin therapeutic range (represented by Anti-Factor Xa activity of 0.2 - 0.4 U/mL) corresponds to PTT of 56.6 - 109.0 sec. INR Coag (PPP) [Relative time] 0.93 {INR} Invalid Interpretation Code [facility] [place] Auto Coag Comment on above: Interpretive Data: I NR results are specifically intended to assess patients stabilized on long-term Anticoagulation therapy suggested INR s Less Intensive Anticoagulation 2.0 3.0 Conventional Range 3.0 4.5 PT Coag (PPP) [Time] 10.4 s Normal 9.4 - 1 2.5 second(s) [facility] Auto Coag Comment on [...] the same coagulation reagent and instrumentation as [facility] [place]. Currently there are no coagulation studies available worldwide for children to 14 days, and no normal ranges. Capillary Glucose POCon 01-29 Glucose [Mass/Vol] 419 mg/dL High 55-99 [facility] Comment on above: Result Comment: Modesto vanegas RN/ Performed By: #### 2 [id number] #### [facility] [address] [place] [address] Glucose [Mass/Vol] 426 mg/dL High 55-99 [facility] Comment on above: Performed By: #### 2 [id number] #### [facility] [address] [place] [address] Glucose [Mass/Vol] 436 mg/dL High 55-99 [facility] Comment on above: Result Comment: Sheryl minda Meter Performed By: #### 2 [id number] #### [facility] [address] [place] [address] Consent for Treatmenton 01-29 Consent for Treatment [id number]#1 .00TIFF Normal [facility] ED Clinical Summaryon 2023 ED Clinical Summary [address] [address] ED Clinical Summary Person Information Name: SHAHANA GRACE Diane/[facility] Age: 74 Years : 1950 Sex: Female Language: Belarusian PCP: ALBERTINA ARNDT DO Marital Status: Visit Id: Visit Reason: Polydipsia; Nausea; Hyperglycemia; hyperglycemia Speciality: Acuity: 3 Enc Type: Inpatient Med Service: Emergency Arrival: 02/19/2024 13:27:15 Discharge: LOS: 000 06:38 Checkin: 02/19/2024 13:27:15 Checkout: 02/19/2024 20:05:37 Dispo Type: Admitted as IP to this [facility] EVENTS: Event Name Event Status Request [...] 02/19/2024 19:56:25 02/19/2024 19:56:25 02/19/2024 19:56:26 ADDRESS: [address] [place] [phone] PHYS DOC NOTES: MEDICAL INFORMATION: Prescriptions Given: [...] Tablets By (more content not included)... Normal [facility] ED Patient Education Noteon 02-19-2024 ED Patient Education Note Normal [facility] ED Patient Summaryon 024 ED Patient Summary [place] [id number] Patient Discharge Instructions Person Information Name: SHAHANA GRACE Age: 74 Years Arrival Date: 02/19/2024 13:27:15 Discharge Diagnosis: 1:GIOVANNY (acute kidney injury); 2:Nausea; 3:Abdominal pain; 4:Hyperglycemia; 5:UTI (urinary tract infection); 6:Hypertensive crisis; 7:Kidney stone on right side; 8:Hydronephrosis, right Primary Care Physician: ALBERTINA ARNDT DO Provider Information Primary Provider: Rose Alvarado M.D. [place] Mason:Luis Corona PA-C The exam and treatment you received in the Emergency Department were for an urgent problem and are not intended as complete care. It is important that you follow up with a doctor, nurse practitioner, or physician?s assistant associate full professor for ongoing care. If your symptoms become [...] opioids can be used to help relieve fmaihzua-vn-ckcewf pain and are often prescribed following a [...] be struggling with addiction, tell your health primary care md and ask for guidance or call [facility]?S National Helpline at 9-624-946-NTCS. v S (more content not included)... Normal [facility] EMS Documentationon 02-19-20 24 EMS Documentation Please click on link to see report [id number] CiX5+prnDQolQUJDcGRmI [id number] [id number] NRHpvDGd5SIDvEM6CT4wu VRXuJHRiNv1SuJ2sHEKqb rClPXWKT40sZFyoXfZuWE naNUQsLJh5ZlCSAk1sOHO gICAgICAgICAgICAgICAg ICAgICAgICAgICAgICAgI CAgICAgICAgICAgICAgIC AgICAgICAgICAgICAgICA gICAgICAgICAgDQplbmRv VynFHx7FhNDkLs0PFdBlQ jUNCjAwMDAwMDAwMzIgMD ByQICpmk4TPUJiUNHfXSI 1MSAwMDAwMCBuDQowMDAw RVFyRSq6ZBWuDBMvYT6GV gSvEIIyDIF4NEMuBJRsXJ Rqtn3KDEUcEWXgJGh4ISH wMDAwMCBuDQowMDAwMDAy NkZcJGQtGEZpCK6EMdDvM DAwMDIyOTUgMDAwMDAgbg 3KXMInHPEqWdU3JGSrTOM wMCBuDQowMDAwMDAyNDI0 FDDjJASqQV3DVcFhBKWmW CV1GGDvVTRoYGVjlt8DJS AwMDAwMjgyOSAwMDAwMCB kDHwdPDWrIKEjCDg8DQLt DFGvQD7UWgGiIRMxICM7T eFuDFIyLTCenw9KPUGsJM AwMzYyMCAwMDAwMCBuDQo wMDAwMDAzODYxIDAwMDAw XQ3RJtZfPOPeYQGcLHRhD ZMiONLvrg3STZRyKCExNC O2PzGoGMAbMCVnNGjwDNY lEYX2CnK6NDGhKAKaNZ3V CcWrDZZzCDW6GJEhXXJiT SKnip9WUROgMPMxSSI4VU AwMDAwMCBuDQowMDAwMDA 6AQL4POKmQFMtPI6MIaAg LRZbQJS2DQQoHMOtGCPha n1HEBRdCRYaDSJtOgPeSS AwMCBuDQowMDAwMDUwMjQ 5CPXdCEBvZD6EHnPdNMZh VTvaVBPzATEwJBLlye1Iq QKdqMtdfm6CWKiOC1nBWJ x9NHHADAWISBPFWvVRSrz wUZJ2RDYuGVMMJQUxIBZD MTY+Lzz2ZGW6PVlhPnZ9V 0P7YYYLQAM8Bvp4DUFPSt PaMkO5TX9mFn1IdsP6YOI 7FKfnHjmcAi9vlUGzVmDf CFEUS2GorjXfMOEZV7Yux TDeSYSrD1TRXSI1Le10Ka uxuNgBKNU2HULIZSqnVN5 ZDuiPWvGtZPcwAh69F3WF o9K2DnLhW9QHvLdFxxYPM FdcW4lJzZX4z7wwfToYgM NGbXlkOGdJcndPalFSQUl yICPYwN86ftrSM5ScJLm2 O6RWAt4CSJufIhIvbG5Yt VufUTF2zU6gVUZIWLiVCx bhQP0LOOMIMUx5WJl+Astrid gICAgICAgICAgICAgICAg ICAgICAgICAgICAgICAgI CAgICAgICAgICAgICAgIC AgICAgICAgICAgICAgICA gICAgICAgICAgICAgICAg ICAgICAgICAgICAgICAgI CAgICAgICAgICAgICAgIC AgICAgICAgICAgICAgICA gICAgICAgICAgICAgICAg ICAgICAgICAgICAgICAgI CAgICAgICAgICAgICAgIC AgICAgICAgICAgICAgICA gICAgICAgICAgICAgICAg ICAgICAgICAgICAgICAgI CAgICAgICAgICAgICAgIC AgICAgICAgICAgICAgICA gICAgICAgICAgICAgICAg ICAgICAgICAgICAgICAgI CAgICAgICAgICAgICAgIC AgICAgICAgICAgICAgICA gICAgICAgICAgICAgICAg ICAgICAgICAgICAgICAgI CAgICAgICAgICAgICAgIC AgICAgICAgICAgICAgICA gICAgICAgICAgICAgICAg ICAgICAgICAgICAgICAgI CAgICAgICAgICAgICAgIA 1Xm3XmpoQ5hxMlPPzlBGa mMMSQHp1AEIueYiCfFX2u ng7NNHpQE77wbOJgHXZcG MXyPDIaChfqI2SfrmHemL yqyhCyNiAjDKVZFz4KcYC PBFusV4L5iDxmHSToPXjj INDNUh1MHTepQU1gGOMqJ ZUnQd0pOEutPTCnIXZaKJ zgPGLCBe4QiEDdJZ3EKVL dmG8sOd6+DQplbmRvYmoN Do9ZGrCkUNOzIhjHQov2M o1YuYg9HRYyH7ZrCJMpAP Fkj5ZuEh3AWK5olYpgQDQ qNq8DWTRhKWe+Tv6Hn7Oi BONwJEs7pGRxCFJaVLUiZ sZuBVTfRFOcqMGOVSA2QW OhVAdaaTTCdX2CkOODUYd AlOdlYHyWDaTFgFgaLKIL wghXrVNsUXNt2dX2IRLqH KTcPKB9sWYbHL9N5auRkx 8ICaVl43F1U7bPeqiC7Ed IBFx1O5HdDopCvCIBlASX PjYiQZ5tyhUzD1GwAnbIC M0aMZhNMzOnFDI0nhZyiD 6IID0cy1MwPNwDEwY0LKD zj2BvCCn7SOnbN12jlPVa sCDsWzYhCOWgPl0SK86uQ CtmSb84UTpwQRFxHwFgKO x6Bn2BP0XypgRdxEUiHZL pYCGUC2Qns716spEcnbI8 YXduMC2ptxXsyGI8TTxbT WFiYzYgMjUgMCBSCj4+Cj 4+Su3JqCGkON2BWRfoQx2 +ITzbhoNlYulLKn1BKpQe SBHrTtqLFiw3Qs4BPs51O TlrJEKlGwRiDZn8Qq0CP6 ZpbHRlciAvRmxhdGVEZWN mMCBFL8ctwvz2qFV2Mfkm FxKnj3PoF4IiTOs3Eg4OQ 2TmVBZ1SBg9Ek3MAKQmLx X0OuWgNNFEIl8MQl5TI3T 7XbD0kKJwN4Pgdi1DS4J4 cJFvQ2mWYywrH4SBRo5QU mO3ieZsyH9ZpGpyspIiIi TlMjRQMFUwtTRSMLcwUih E4gXHI5bv6VLNn1HaLeZY DUQYVPjg6QkXjKT2p5jM7 wPnOpxLyOPycgwRy7lXoA 3LW7dW5M2KSY4bm3OcIBH xKRgwwlVpAcbXHw4MVjVp LBEhDidIVbd7Po7MNJGyC w5vkQFeUx7FLSQiXo5SGn DnLz2IElDvTd2WMiKqBe3 NSQI1Ot8QABJ6hqCzOj0m YSAxCj4+DQplbmRvYmoNC z6WBoisMQPwLleXTyn7Oo 9ZRGRiWu3pmPYeRk0qILQ xCj4+WTntbpSpBbqZPm0D LmztMYVwYzuKJsq9Mu4UG AJoFk9jxKFdJo9FWNDzGg 4XItBmKt0TFtTbAk5RLoB kDl5AGAF0Kw3AWIH6esAg Bm4bEVKzIt7+DQplbmRvY ukJJf8UCojgEVCxKzvIIb w2Xz3SOYLkPv7dmSGsU3I IMT7LY9TegPSuICMVQYqA Pq6Wz0nlGZHWT8Xzv2Miq fMzorBIj744rnJgTtRnGZ IBGZkyCK2ns5UzczxtH2f lYM49iVC7EMaEB6J1PkH5 oNYbP1F3tRAnZl3Ct0Rpm MCzUEHpXbVyCOYOBy2FqD WhHS0Nz478Wc8+DQplbmR rZbwFBq2HWvXmUYYsYnzD Sjd6Ic2ZFQIdIs2zpJQmP 7NIIM9XB4PymHMvEPLLNK eXOw2Ov4whOXXXH5ENGNK 7z5LbdMjtQr9aQChPO31b PRXktG0vBJmJFXWkrWq8j ZoSE7AjK1aueSJ3DDlOEZ 8fQNwFQ6W0bJKpTT8rnpF gMAo+JsmkY5jTTA1IMXGS GWQoO7ojXE02aGG7Pz3BO lFqEy5Ib526RFDlS7HcgF LhqmVoIAIzNSKYW4G1SzG 3eEVuU2NBVPTjyoHRrUKx WlvjGPmoENCcVl9agXrcY vSnBBY6BnL2WFLtPXs3Bi ZdCj4+DQplbmRvYmoNCg0 HIcIaQMJaIhgNTak3Uk5L o9XlbcHvNFAuHjAkEKEcC w2XPIEXEEqmhVRvNKclIy y5Itx1Wf2TLYYbBS14TZL wQY4pTQB3ArblPfwsM8Cg YcHNV2UmgcZSKu18ITpmE WvgJny0JFDhAY75DSLhVD L4HkQcCnXyIqN9XOI5CIK sPuZkOPihELYnPc3Tt436 DxsmHPEfTHMsOHVPRi1Zu 797LaFiTHKgX2MIAQ7UF4 InnRTzUAZDXYuQKa3In0i uWZBAO4s0CKppX3FeR9ub QEQEO2Q5XT5PEVl3HuC3P Xa6Ud2LcPJwER5Lx318YA FlV0NmhKOavos+Il1XUM2 rj1OgVNhTTbOmLIAvh9Ha TTq2DBciHfehdBYeEQ0Di RU6RPXiN26vYTpyPTKiF0 HbKRV8Jkw+Se9Vi2AsSYK eJCr1wD6Mb12HDLFP6/6K DfxTWLIw7xBu2rXXNKvZk P0Q3TN6SVrjuKX/XzNDE6 uRZQev054SgVNax4A9CWF 3P6oGA/TGao/TePMKocOr fFXGcA2RR9HzRm4JORS60 xRwqG0/kiNYCG8gmfv+hs 1Bjx0+ieTNa/TGXmHzdWo iNzfnfnBAGyAVVQUa+5j0 0rrXdkBIyLatdeybMG+j5 8F4cW6VLR60DeVkcOzn2D x7syDH61ucdALGStA0C97 mU0xe99fCRr/qNJVpRbRn kzosZIzvMWbQjSgx3PCd/ 5f3+EnRHChr6ZFxPfqelS ji+BGUp6NALMqbFDcYcsi HuVCVNCnZpC4V6w56hsKI LH++4WH2nskczzrcDKWiu lmisXi/tYd7zxF6h1j1uQ pHSjWtOTC6dvIukT0OGM9 cw4NiIFiJWjAkAVNzt6By UKl2CDvmSpLmOQJndvXtF 8tSGmGQFTzSb7SxdMJcZm N2DSEERWagGFOzC8LjCXA udEZvbnRzIFszNCAwIFJd Ms6OvyLqEFbkFnVeZRJuw mHtjKvkNInoD3TnhAaeGD BuEFktHYHCC7XhIU6jL19 bVWVxQhQjRGERO7G4gDIc R1TqqlBMBy4EUyZlYM4de a2DHMpyEQFuKA3tni5NNN sTI6Ndk5FVo427PT0QDKR ZTW1wX655iuhngm6lp6MY NVELR4XRQIK9l1QytFfyZ y6mLVtJK71aWXYsbW3bZC dGVRUwaWn1aDpLU7JjO4b qoDI7PW (more content not included)... Normal [facility] EMS Documentation Please click on link to see report Normal [facility] Comment on above: Result Comment: Miss ing Attachment - total size limit for all attachments exceeded [email or web address] Can be viewed in source system Hep Fun Panelon 02-19-2024 Albumin [Mass/Vol] 4.1 g/dL Normal 3.3-5.0 [facility] Comment on above: Performed By: #### 2 [id number] #### [facility] [address] [place] [address] Albumin/Globulin (S) [Mass conc ratio] 1.2 Normal 1.1-2.2 [facility] Comment on above: Performed By: #### 2 [id number] #### [facility] [address] [place] [address] ALP [Catalytic activity/Vol] 82 Int._Unit/L Normal 21-98 [facility] Comment on above: Performed By: #### 2 [id number] #### [facility] [address] [place] [address] ALT No additional P-5'-P [Catalytic activity/Vol] 11 Int._Unit/L Normal 6-46 [facility] Comment on above: Performed By: #### 2 [id number] #### [facility] [address] [place] [address] AST [Catalytic activity/Vol] 11 Int._Unit/L Normal 5-43 [facility] Comment on above: Performed By: #### 2 [id number] #### [facility] [address] [place] [address] Bilirubin [Mass/Vol] 1.1 mg/dL Normal 0.0-1.1 [facility] Comment on above: Performed By: #### 2 [id number] #### [facility] [address] [place] [address] Bilirubin.direct [Mass/Vol] 0.2 mg/dL Normal 0.0-0.4 [facility] Comment on above: Performed By: #### 2 [id number] #### [facility] [address] [place] [address] Bilirubin.indirect [Mass or moles/Vol] 0.9 mg/dL Normal 0.1-0.9 [facility] Comment on above: Performed By: #### 2 938472 #### [facility] [address] [place] [address] Globulin (S) [Mass/Vol] 3.3 g/dL Normal 1.4-4.0 [facility] Comment on above: Performed By: #### 2 264129 #### [facility] [address] [place] [address] Protein [Mass/Vol] 7.4 g/dL Normal 6.0-7.8 [facility] Comment on above: Performed By: #### 2 [id number] #### [facility] [address] [place] [address] Laboratory - Microbiology an d Antimicrobial susceptibilityOrdered By: Awilda Pritchard on 02-19-2024 Bacteria identified Cx Nom (U) <10,000 cfu/ml Mixed skin contaminants [facility] Lactic Acidon 02-19-2024 Lactic Acid Lvl 1.5 mmol/L Normal 0.5-2.2 [facility] Comment on above: Performed By: #### 2 [id number] #### [facility] [address] [place] [address] Lipase Levelon 02-19-2024 Lipase [Catalytic activity/Vol] 54 U/L Normal 13-58 [facility] Comment on above: Performed By: #### 2 [id number] #### [facility] [address] [place] [address] Magnesiumon 02-19-2024 Magnesium [Mass/Vol] 2.2 mg/dL Normal 1.3-2.4 [facility] Comment on above: Performed By: #### 2 568819 #### [facility] [address] [place] [address] Message from Medicareon 01-29 Message from Medicare [id number]# 1.00TIFF Normal [facility] Message from Medicare [id number]# 1.00TIFF Normal [facility] Monitor Recordon 02-19-2024 Monitor Record [id number]# 1.00TIFF Normal [facility] No Panel InformationOrdered By: [facility] on 02-19-2024 Blood Culture Charcoal No growth at 4 days. Final to follow at 7 days. [facility] Blood Culture Charcoal No growth at 4 days. Final to follow at 7 days. [facility] PT & PTTon 02-19-2024 aPTT Coag (PPP) [Time] 23.4 second(s) Low 25.1-36.5 [facility] Comment on above: Result Comment: Para meter [...] the same coagulation reagent and instrumentation as [facility] [place]. Currently there are no coagulation studies available worldwide for children to 14 days, and no normal ranges. Heparin therapeutic range (represented by Anti-Factor Xa activity of 0.2 - 0.4 U/mL) corresponds to PTT of 56.6 - 109.0 sec. Performed By: #### 1 [id number] #### [facility] [address] [place] [address] INR Coag (PPP) [Relative time] 0.93 {INR} Invalid Interpretation Code [facility] Comment on above: Result Comment: INR results are specifically intended to assess patients stabilized on long-term Anticoagulation therapy suggested INR?s ?Less Intensive Anticoagulation? 2.0 ? 3.0 Conventional Range 3.0 ? 4.5 Performed By: #### 1 [id number] #### [facility] [address] [place] [address] PT Coag (PPP) [Time] 10.4 second(s) Normal 9.4-12.5 [facility] Comment on above: Result Comment: 15 d [...] the same coagulation reagent and instrumentation as [facility] [place]. Currently there are no coagulation studies available worldwide for children to 14 days, and no normal ranges. Performed By: #### 1 [id number] #### [facility] [address] [place] [address] Pre-Arrival Noteon Pre-Arrival Note Normal [facility] Progress Note-Nurseon 2023 Progress Note-Nurse spoke with PASCUAL Smith about pt's blood sugar and BP. Per Luis, wait 15-20 mins and check BP again after stopping fluids Normal [facility] RAD - Preliminary Cat Scan R eporton 02-19-2024 RAD - Preliminary Cat Scan Report [id number]#1 .00TIFF Normal [facility] Troponin 0 Hr.on 02-19-2024 Troponin HS 45.80 pg/mL Abnormal 10.10-27.10 [facility] Comment on above: Result Comment: Crit ical Result I_TnIHS:45.8 Called to and read back by: MADELINE FERNANDEZ at: 02/19/2024 14:58:27 by:AG Critical Result Verified by Repeat Analysis The 95% CI (Confidence Interval) PPV (Positive Predictive Value) for myocardial infarction in females is 38 pg/mL, in males 51 pg/mL. The results should be used in conjunction with clinical conditions of myocardial infarction. (Access High Sensitivity Troponin I Instructions For Use, [place], March 2018) Performed By: #### 1 [id number] #### [facility] [address] [place] [address] Troponin 1 Hr.on 02-19-2024 Troponin HS 42.60 pg/mL Abnormal 10.10-27.10 [facility] Comment on above: Order Comment: [id number] Result [...] conjunction with clinical conditions of myocardial infarction. ([facility] Sensitivity Troponin I Instructions For Use, Jianshu, March 2018) Performed By: #### 1 [id number] #### [facility] [address] [place] [address] UA with Cult Rflxon 02-19-20 24 Bacteria Auto Ql (U) 1+ /HPF Abnormal Trace Fish [facility] Comment on above: Performed By: #### 4 [id number] #### [facility] [address] [place] [address] Bilirubin Ql (U) Negative Normal Negative [facility] Comment on above: Performed By: #### 4 [id number] #### [facility] [address] [place] [address] Clarity (U) Turbid Abnormal Clear [facility] Comment on above: Performed By: #### 4 [id number] #### [facility] [address] [place] [address] Color (U) Light-Yellow Normal Yellow [facility] Comment on above: Result Comment: Micr oscopic readings are only performed on those samples that meet specific criteria set forth by [facility]. Performed By: #### 4 [id number] #### [facility] [address] [place] [address] Epithelial cells.squamous Auto (Urine sed) [#/Area] 5-8 Invalid Interpretation Code [facility] Comment on above: Performed By: #### 4 [id number] #### [facility] [address] [place] [address] Glucose Ql (U) 4+ mg/dL Abnormal Negative [facility] Comment on above: Performed By: #### 4 [id number] #### [facility] [address] [place] [address] Hemoglobin Auto test strip (U) [Mass/Vol] 2+ mg/dL Abnormal Negative [facility] Comment on above: Performed By: #### 4 [id number] #### [facility] [address] [place] [address] Ketones Auto test strip Ql (U) Trace Abnormal Negative [facility] Comment on above: Performed By: #### 4 [id number] #### [facility] [address] [place] [address] Leukocyte esterase Auto test strip Ql (U) 500 Sergio/uL Abnormal Negative [facility] Comment on above: Performed By: #### 4 [id number] #### [facility] [address] [place] [address] Mucus Auto Ql (U) Negative Normal Negative [facility] Comment on above: Performed By: #### 4 [id number] #### [facility] [address] [place] [address] Nitrite Auto test strip Ql (U) Negative Normal Negative [facility] Comment on above: Performed By: #### 4 [id number] #### [facility] [address] [place] [address] pH (U) 5.0 [pH] Invalid Interpretation Code 5.0-9.0 [facility] Comment on above: Performed By: #### 4 [id number] #### [facility] [address] [place] [address] Protein Ql (U) 1+ mg/dL Abnormal Negative [facility] Comment on above: Performed By: #### 4 [id number] #### [facility] [address] [place] [address] RBC Ql (U) 31-75 Abnormal 0-3 [facility] Comment on above: Performed By: #### 4 [id number] #### [facility] [address] [place] [address] Specific gravity (U) [Rel density] 1.030 Invalid Interpretation Code 1.005-1.030 [facility] Comment on above: Performed By: #### 4 [id number] #### [facility] [address] [place], [place] [address] Urobilinogen (U) [Mass/Vol] Negative Normal Negative [facility] Comment on above: Performed By: #### 4 [id number] #### [facility] [address] [place] [address] WBC Auto (Urine sed) [#/Area] >75 Abnormal 0-5 [facility] Comment on above: Performed By: #### 4 [id number] #### [facility] [address] [place] [address] Yeast.budding Computer assisted Ql (U) 1+ CD:[id number] Abnormal [facility] Comment on above: Performed By: #### 4 [id number] #### [facility] [address] [place] [address] Type of Urine collection method Clean Catch Normal [facility] Comment on above: Performed By: #### 4 [id number] #### [facility] [address] [place] [address] URINALYSISOrdered By: SYSTEM SYSTEM on 02-19-2024 Bacteria [...] that meet specific criteria set forth by [facility]. Epithelial cells.squamous Auto (Urine sed) [#/Area] [...] Auto SS URINALYSISOrdered By: Luis Corona on 06-22-2024 UA Spec Desc Clean Catch (02/19/24 4:54 PM) Normal [facility] UA Auto SS eGFRon 02-19-2024 eGFR 24 mL/min/1.73 m2 Low >=59 [facility] Comment on above: Order Comment: Order added by Discern Expert. Performed By: #### 1 [id number] #### [facility] [address] [place] [address] Prescriptions/Work Noteson 0 09-07-2023 Prescriptions/Work Notes [id number]# 1.00TIFF Normal [facility] IntraOperative Documentson 1 10-26-2022 IntraOperative Documents [id number]# 1.00TIFF Normal [facility] IntraOperative Documents [id number]# 1.00TIFF Normal [facility] Comment on above: Other Comment: error Calculus Analysison 08-15-20 23 Color (Stone) Cecil Invalid Interpretation Code [facility] Comment on above: Performed By: #### 1 [id number] ####[facility] [address] [place] [address] Composition Comment Invalid Interpretation Code [facility] Comment on above: Result Comment: Perc entage (Represents the % composition) Performed By: #### 1 [id number] ####[facility] [address] [place] [address] Disclaimer: Comment Invalid Interpretation Code [facility] Comment on above: Result Comment: This test was developed and its performance characteristicsdetermined by [employer]. It has not been cleared or approvedby the Food and Drug Administration.Performed at: [address] [id number] PhD Ivan Ureña Performed By: #### 1 [id number] ####[facility] [address] [place] [address] Laboratory comment Hu (Report) Comment Invalid Interpretation Code [facility] Comment on above: Result Comment: Phys ulysses questions regarding Calculi Analysis contactLabCo at: [phone]. Performed By: #### 1 [id number] ####[facility] [address] [place] [address] Please Note: Comment Invalid Interpretation Code [facility] Comment on above: Result Comment: Calc bernard report will follow via computer, mail or courierdelivery. Performed By: #### 1 [id number] ####[address] [address] Size (Stone) [Entitic vol] 3x4 Invalid Interpretation Code [facility] Comment on above: Result Comment: Mult iple pieces received. Dimensions of the largest piecereported. Performed By: #### 1 [id number] ####[address] [address] Specimen source subject Nom Comment Invalid Interpretation Code [facility] Comment on above: Result Comment: Not provided Performed By: #### 1 [id number] ####[address] [address] Stone Photo Comment Invalid Interpretation Code [facility] Comment on above: Result Comment: Phot ograph will follow under a separate cover Performed By: #### 1 [id number] ####[address] [address] Urate (Stone) [Mass fraction] 100 % Invalid Interpretation Code [facility] Comment on above: Performed By: #### 1 [id number] ####[address] [address] Weight (Stone) 90 mg Invalid Interpretation Code [facility] Comment on above: Performed By: #### 1 [id number] ####[address] [place] [address] Prescriptions/Work Noteson 1 10-13-2022 Prescriptions/Work Notes [id number]# 1.00TIFF Normal [facility] Consent for Procedure/Surger yon 08-11-2023 Consent for Procedure/Surgery [id number]# 1.00TIFF Normal [facility] Progress Note-Physicianon Progress Note-Physician Normal [facility] Comment on above: Result Comment: Elec tronically Signed By: Ravinder Bojorquez Jr, DO\.br\Date and Time Signed: 08/08/23 10:09 EST Progress Note-Physicianon Progress Note-Physician Normal [facility] Comment on above: Result Comment: Elec tronically Signed By: Ravinder Bojorquez Jr, DO\.br\Date and Time Signed: 08/07/23 08:35 EST Consent for Anesthesiaon Consent for Anesthesia [id number]#1 .00TIFF Normal [facility] Discharge Instructionson Discharge Instructions [id number]#1 .00TIFF Normal [facility] IntraOperative Documentson 1 10-07-2022 IntraOperative Documents [id number]#1 .00TIFF [facility] Main OR Intraoperative Recor don 08-06-2023 Main OR Intraoperative Record Normal [facility] Preoperative Documentson Preoperative Documents [id number]#1 .00TIFF [facility] CHEMISTRYOrdered By: Lab TONY User on 08-05-2023 POC Username FATIMAH HA Invalid Interpretation Code [facility] POC Subsection Sodium [Moles/Vol] 814631784612 mmol/L Invalid Interpretation Code [facility] POC Subsection Sodium [Moles/Vol] 887564078 mmol/L Invalid Interpretation Code [facility] POC Subsection Capillary Glucose POCOrdered By: Lab TONYUser on 08-05-2023 Glucose [Mass/Vol] 155 mg/dL High 55-99 [facility] P OC Subsection Comment on above: Result Comment: Sheryl minda Meter No Coverage Given Result Comment: Sheryl minda MeterNo Coverage Given Performed By: #### 2 [id number] ####[facility] [address] [place] [address] Consent for Treatmenton Consent for Treatment [id number]#1 .00TIFF Normal [facility] Discharge Instructionson Discharge Instructions [facility] Comment on above: Result Comment: Elec tronically Signed By: Jerome MARCUM, Fatimah Pitt\.br\Date and Time Signed: 08/05/23 15:42 EST H&P Updateon 08-05-2023 H&P Update [id number]#1 .00TIFF Normal [facility] Inpatient Patient Summaryon 08-05-2023 Inpatient Patient Summary Normal [facility] Main OR PACU I Recordon Main OR PACU I Record [facility] Main OR Preoperative Recordo n 08-05-2023 Main OR Preoperative Record Normal [facility] Monitor Recordon 08-05-2023 Monitor Record [id number]# 1.00TIFF [facility] Monitor Record [id number]# 1.00TIFF [facility] Operative Reporton Operative Report Normal [facility] Comment on above: Result Comment: Elec tronically Signed By: GEORGIE CHISHOLM, Orestes Muñiz\.br\Date and Time Signed: 08/05/23 15:18 EST Outpatient Surgery Discharge Instructionon 08-05-2023 Outpatient Surgery Discharge Instruction Normal [facility] Patient Education - Texton 1 10-06-2022 Patient Education - Text [facility] URINALYSISOrdered By: Candis Soto on 08-05-2023 [...] [Mass/Vol] Negative (08/05/23 12:21 PM) Normal Negative [facility] UA Auto SS Hemoglobin Ql (U) 2+ *ABN* (08/05/23 12:21 PM) Invalid Interpretation Code Negative [facility] UA Auto SS Ketones (U) [Mass/Vol] Negative (08/05/23 12:21 PM) Normal Negative [facility] UA Auto SS [place].plasma/Lithi um.RBC (Bld) [Mass ratio] 21-30 /HPF Invalid Interpretation Code 0-3/HPF [facility] UA Auto SS Nitrite Ql (U) Negative (08/05/23 12:21 PM) Normal Negative [facility] UA Auto SS pH (U) 6.0 (08/05/23 12:21 PM) Normal 5.0 - 9.0 [facility] UA Auto SS Protein (U) [Mass/Vol] 2+ *ABN* (08/05/23 12:21 PM) Invalid Interpretation Code Negative [facility] UA Auto SS Specific gravity (U) [Rel density] 1.015 (08/05/23 12:21 PM) Normal 1.005 - 1.030 [facility] UA Auto SS UA Spec Desc Clean Catch (08/05/23 12:21 PM) Normal [facility] UA Auto SS Urobilinogen Qn (U) 0.4929246 {Isis'U}/dL Normal 0.0 - 1.0 EU/dL [facility] UA Auto SS WBC Auto Ql (U) 3+ *ABN* (08/05/23 12:21 PM) Invalid Interpretation Code Negative [facility] UA Auto SS WBC LM.HPF (Urine sed) [#/Area] /[HPF] Invalid Interpretation Code 0-5/HPF [facility] UA Auto SS Urinalysison 08-05-2023 Type of Urine collection method Clean Catch Normal [facility] Comment on above: Performed By: #### 1 [id number] ####[facility] [address] [place] [address] Bacteria LM Ql (Urine sed) 1+ /HPF Abnormal Trace [facility] Comment on above: Performed By: #### 1 [id number] ####[facility] [address] [place] [address] Bilirubin Ql (U) Negative Normal Negative [facility] Comment on above: Performed By: #### 1 [id number] ####[facility] [address] [place] [address] Clarity (U) CLOUDY Abnormal Clear [facility] Comment on above: Performed By: #### 1 [id number] ####[address] [address] Color (U) YELLOW Normal Yellow [facility] Comment on above: Performed By: #### 1 [id number] ####[address] [address] Epithelial cells.squamous LM.HPF (Urine sed) [#/Area] 3-4 Normal 0-2 [facility] Comment on above: Performed By: #### 1 [id number] ####[facility] [address] [place] [address] Glucose Test strip (U) [Mass/Vol] Negative Normal Negative [facility] Comment on above: Performed By: #### 1 [id number] ####[facility] [address] [place] [address] Hemoglobin Ql (U) 2+ Abnormal Negative [facility] Comment on above: Performed By: #### 1 [id number] ####[facility] [address] [place] [address] Ketones (U) [Mass/Vol] Negative Normal Negative [facility] Comment on above: Performed By: #### 1 [id number] ####[facility] [address] [place] [address] [place].plasma/Lithi um.RBC (Bld) [Mass ratio] 21-30 Abnormal 0-3 [facility] Comment on above: Performed By: #### 1 [id number] ####[facility] [address] [place] [address] Nitrite Ql (U) Negative Normal Negative [facility] Comment on above: Performed By: #### 1 [id number] ####[facility] [address] [place] [address] pH (U) 6.0 [pH] Normal 5.0-9.0 [facility] Comment on above: Performed By: #### 1 [id number] ####[facility] [address] [place] [address] Protein (U) [Mass/Vol] 2+ Abnormal Negative [facility] Comment on above: Performed By: #### 1 [id number] ####[facility] [address] [place] [address] Specific gravity (U) [Rel density] 1.015 Normal 1.005-1.030 [facility] Comment on above: Performed By: #### 1 [id number] ####[facility] [address] [place] [address] Urobilinogen Qn (U) 0.2 {Isis'U}/dL Normal 0.0-1.0 [facility] Comment on above: Performed By: #### 1 [id number] ####[facility] [address] [place] [address] WBC Auto Ql (U) 3+ Abnormal Negative [facility] Comment on above: Performed By: #### 1 [id number] ####[facility] [address] [place] [address] WBC LM.HPF (Urine sed) [#/Area] /[HPF] Abnormal 0-5 [facility] Comment on above: Performed By: #### 1 [id number] ####[facility] [address] [place] [address] XR Abdomen 1 Viewon 08-05-20 23 XR Abdomen 1 View Normal [facility] XR Chest 2 Viewson 3 XR Chest 2 Views Normal [facility] Alanine Aminotransferaseon 1 10-05-2022 ALT [Catalytic activity/Vol] 15 U/L Normal 7-52 [facility] Comment on above: Performed By: #### A LT, AST, LIPID #### [facility] [address] Alanine aminotransferase [En zymatic activity/volume] in Serum or PlasmaOrdered By: Tal Florian on 08-04-2023 ALT [Catalytic activity/Vol] 15 U/L 7-52 [facility] Aspartate Amino Transferaseo n 08-04-2023 AST [Catalytic activity/Vol] 13 U/L Normal 13-39 [facility] Comment on above: Performed By: #### A LT, AST, LIPID #### [facility] [id number] [facility] Aspartate aminotransferase [ Enzymatic activity/volume] in Serum or PlasmaOrdered By: Tal Florian on 08-04-2023 AST [Catalytic activity/Vol] 13 U/L 13-39 [facility] Cholesterol [Mass/volume] in Serum or PlasmaOrdered By: Tal Florian on 08-04-2023 Cholesterol [Mass/Vol] 209 mg/dL 140-200 [facility] Comment on above: Chol less than 200 m g/dl low riskChol 201-239 mg/dl borderline riskChol 240 mg/dl and greater high risk Cholesterol in LDL Calc [Mas s/Vol]Ordered By: Tal Florian on 08-04-2023 Cholesterol in LDL [Mass/Vol] 116 mg/dL 0-100 [facility] Comment on above: LDL ATP III CLASSIFI CATIONLDL less than 100 mg/dL OptimalLDL 100-129 mg/dL Near or above optimalLDL 130-159 mg/dL Borderline highLDL 160-189 mg/dL HighLDL greater than 189 mg/dL Very high Cholesterol in VLDL Calc [Ma ss/Vol]Ordered By: Tal Florian on 08-04-2023 Cholesterol in VLDL [Mass/Vol] 35 mg/dL [facility] Lipid Panelon 08-04-2023 Cholesterol [Mass/Vol] 209 mg/dL High 140-200 [facility] Comment on above: Result Comment: Chol less than 200 mg/dl low risk Chol 201-239 mg/dl borderline risk Chol 240 mg/dl and greater high risk Performed By: #### A LT, AST, LIPID #### [facility] [address] [place] [facility] Cholesterol in HDL [Mass/Vol] 58 mg/dL Normal 23-92 [facility] Comment on above: Result Comment: HDL CHOL ATP-III CLASSIFICATION Cardiovascular Risk HDL > or equal to 60 mg/dL LOW HDL < 40 mg/dL HIGH Performed By: #### A LT, AST, LIPID #### [facility] [address] Cholesterol.total/Ch olesterol in HDL [Mass ratio] 3.6 {ratio} Normal <5.0 [facility] Comment on above: Result Comment: PERF ORMED BY: [place] [address] PATHOLOGIST WINDOWS ARCHITECT KEVIN SWARTZ M.D. Performed By: #### A LT, AST, LIPID #### [facility] [address] [place] [address] LDL Cholesterol,Calculat ed 116 mg/dL High 0-100 [facility] Comment on above: Result Comment: LDL ATP III CLASSIFICATION LDL less than 100 mg/dL Optimal LDL 100-129 mg/dL Near or above optimal LDL 130-159 mg/dL Borderline high LDL 160-189 mg/dL High LDL greater than 189 mg/dL Very high Performed By: #### A LT, AST, LIPID #### [facility] [address] [place] [address] Triglyceride w/Reflex 175 mg/dL High 0-149 [facility] Comment on above: Result Comment: TRIG ATP III CLASSIFICATION TRIG less than 150 mg/dL Normal TRIG 150-199 mg/dL Borderline high TRIG 200-500 mg/dL High TRIG greater than 500 mg/dL Very high Standard traceable to the Center for Disease Conrtrol and Prevention (CDC) test method. Performed By: #### A LT, AST, LIPID #### [facility] [address] VLDL CHOLESTEROL 35 mg/dL Normal [facility] Comment on above: Performed By: #### A LT, AST, LIPID #### [facility] [address] [place] [address] Serum or plasma high density lipoprotein (HDL) cholesterol measurementOrdered By: Tal Florian on 08-04-2023 Cholesterol in HDL [Mass/Vol] 58 mg/dL 23- [facility] Comment on above: HDL CHOL ATP-III CLA SSIFICATION Cardiovascular RiskHDL > or equal to 60 mg/dL LOWHDL < 40 mg/dL HIGH Serum or plasma total choles terol/high density lipoprotein (HDL) cholesterol mass ratOrdered By: Tal Florian on 08-04-2023 Cholesterol.total/Ch olesterol in HDL [Mass ratio] 3.6 {ratio} <5.0 [facility] Triglyceride [Mass/volume] i n Serum or PlasmaOrdered By: Tal Florian on 08-04-2023 Triglyceride [Mass/Vol] 175 mg/dL 0-149 [facility] Comment on above: TRIG ATP III CLASSIF ICATIONTRIG less than 150 mg/dL NormalTRIG 150-199 mg/dL Borderline highTRIG 200-500 mg/dL High TRIG greater than 500 mg/dL Very highStandard traceable to the Center for Disease Conrtrol and Prevention (CDC) test method. Consent for Treatmenton 07-01 Consent for Treatment [id number]#1 .00TIFF Normal [facility] XR Abdomen 1 Viewon 07-23-20 23 XR Abdomen 1 View Normal [facility] IntraOperative Documentson 09-15-2022 IntraOperative Documents [id number]# 1.00TIFF Normal [facility] Operative Reporton Operative Report [id number]#1 .00TIFF Normal [facility] Formson 07-11-2023 Forms [id number]#1 .00TIFF Normal [facility] ECG 12-Leadon 07-05-2023 ECG 12-Lead [id number]#1 .00TIFF Normal [facility] Auto Diffon 07-02-2023 Basophils/100 WBC (Bld) 1.0 % Normal 0.0-2.0 [facility] Comment on above: Order Comment: Order Added by Discern Expert. Performed By: #### 2 950782, 9993612, [id number], 23091839, 9698579, 9354505, 1357803 ####[facility] [address] [place] [address] Basophils/Leukocytes Auto (Bld) [Pure # fraction] 0.1 E9/L Normal 0.0-0.2 [facility] Comment on above: Order Comment: Order Added by Discern Expert. Performed By: #### 2 257400, 7681175, 76651549, 04548030, 7087737, 9676139, 5117206 ####[address] [place] [address] Eosinophils/100 WBC (Bld) 2.6 % Normal 0.0-8.0 [facility] Comment on above: Order Comment: Order Added by Discern Expert. Performed By: #### 2 282536, 6878693, 33802210, 57235058, 3389336, 1311004, 6028620 ####[address] [place] [address] Eosinophils/Leukocyt es Auto (Bld) [Pure # fraction] 0.2 E9/L Normal 0.0-0.5 [facility] Comment on above: Order Comment: Order Added by Discern Expert. Performed By: #### 2 277222, 2840887, 86079516, 98808872, 8943630, 0165553, 0945666 ####[address] [place] [address] Lymphocytes/100 WBC (Bld) 21.4 % Normal 14.0-50.0 [facility] Comment on above: Order Comment: Order Added by Discern Expert. Performed By: #### 2 933409, 5597202, 62530196, 39802138, 9845030, 4316434, 5414194 ####[address] [place] [address] Lymphocytes/Leukocyt es Auto (Bld) [Pure # fraction] 1.9 E9/L Normal 1.0-4.0 [facility] Comment on above: Order Comment: Order Added by Discern Expert. Performed By: #### 2 945332, 7187163, 16083091, 33156757, 4201553, 6058536, 6847341 ####[address] [place] [address] Monocytes/100 WBC (Bld) 7.7 % Normal 4.0-14.0 [facility] Comment on above: Order Comment: Order Added by Discern Expert. Performed By: #### 2 594649, 9622502, 62538773, 41772977, 7386901, 5160761, 6420091 ####[address] [place] [address] Monocytes/Leukocytes Auto (Bld) [Pure # fraction] 0.7 E9/L Normal 0.2-1.0 [facility] Comment on above: Order Comment: Order Added by Christen Expert. Performed By: #### 2 437893, 7790678, 29012587, 97375756, 6272059, 5982241, 5046635 ####[address] [place] [address] Neutrophils/100 WBC (Bld) 67.3 % Normal 36.0-75.0 [facility] Comment on above: Order Comment: Order Added by Christen Expert. Performed By: #### 2 001232, 8200144, [id number], [id number], 5097867, 7691130, 2090991 ####[address] [place] [address] Neutrophils/Leukocyt es Auto (Bld) [Pure # fraction] 6.0 E9/L Normal 2.0-7.5 [facility] Comment on above: Order Comment: Order Added by Christen Expert. Performed By: #### 2 268586, 9765970, 29024528, 48638034, 9256318, 0504219, 3348922 ####[facility] [address] [place] [address] BUNon 07-02-2023 Urea nitrogen [Mass/Vol] 20 mg/dL Normal 5-21 [facility] Comment on above: Performed By: #### 2 621881, 4480159, 28803632, 10988658, 3551135, 0999667, 7167059 ####[facility] [address] [place] [address] CBC w/ Auto Diffon 3 Erythrocyte distribution width (RBC) [Ratio] 14.2 % Normal 10.9-14.2 [facility] Comment on above: Performed By: #### 2 943759, 3486593, 42731309, 79403845, 6435860, 5816789, 8526733 ####[address] [place] [address] Hematocrit (Bld) [Volume fraction] 43.0 % Normal 34.0-46.0 [facility] Comment on above: Performed By: #### 2 405879, 0142037, 73911104, 63717702, 6634708, 7363682, 5871970 ####[address] [place] [address] Hemoglobin (Bld) [Mass/Vol] 14.5 g/dL Normal 12.0-16.0 [facility] Comment on above: Performed By: #### 2 938266, 8272945, 10323396, 54448314, 4971889, 2995795, 5517907 ####[address] [place] [address] MCH (RBC) [Entitic mass] 30.1 pg Normal 27.0-34.0 [facility] Comment on above: Performed By: #### 2 862410, 2745774, 65671059, 16508882, 2461590, 1005616, 9732527 ####[address] [place] [address] MCHC (RBC) [Mass/Vol] 33.6 g/dL Normal 31.4-36.0 [facility] Comment on above: Performed By: #### 2 341320, 1078748, 65675403, 05566696, 3029025, 4242228, 6921252 ####[facility] [address] [place] [address] MCV (RBC) [Entitic vol] 89.8 fL Normal 80.0-100.0 [facility] Comment on above: Performed By: #### 2 616723, 0005254, 32063551, 11462197, 6442840, 2995566, 6450305 ####[address] [place] [address] Platelet mean volume (Bld) [Entitic vol] 7.9 fL Normal 6.4-10.8 [facility] Comment on above: Performed By: #### 2 468713, 1763546, 22313598, 62635424, 3606077, 8429157, 7268523 ####[address] [address] Platelets (Bld) [#/Vol] 228.0 E9/L Normal 150.0-500.0 [facility] Comment on above: Performed By: #### 2 922818, 6885343, 48621808, 66866881, 6743734, 9665483, 6939702 ####[address] [address] RBC (Bld) [#/Vol] 4.8 E12/L Normal 4.3-5.9 [facility] Comment on above: Performed By: #### 2 731028, 3632945, 85922776, 71194076, 9104492, 0659517, 5489253 ####[address] [place] [address] WBC corrected for nucl RBC Auto (Bld) [#/Vol] 8.9 E9/L Normal 4.0-11.0 [facility] Comment on above: Performed By: #### 2 049725, 8473118, 52500704, 89197301, 9928074, 0556970, 1572309 ####[address] [address] Consent for Treatmenton 11-0 Consent for Treatment [id number]#1 .00TIFF Normal [facility] Creatinineon 07-02-2023 Creatinine [Mass/Vol] 1.3 mg/dL Normal 0.5-1.3 [facility] Comment on above: Performed By: #### 2 320744, 7951662, 94966834, 66824829, 9363117, 3114239, 2678256 ####[facility] [address] [place] [address] Lyteson 07-02-2023 Anion gap [Moles/Vol] 16 mmol/L Normal 6-16 [facility] Comment on above: Performed By: #### 2 287176, 0544927, 54284193, 47079537, 3489999, 2909680, 0016451 ####[facility] [address] [place] [address] Chloride [Moles/Vol] 109 mmol/L Normal 101-111 [facility] Comment on above: Performed By: #### 2 325339, 4822452, 27359593, 47563738, 7550472, 7919782, 4721347 ####[facility] [address] [place] [address] CO2 [Moles/Vol] 24 mmol/L Normal 21-31 [facility] Comment on above: Performed By: #### 2 363731, 4723894, 61108708, 92170502, 8973017, 4497620, 4509807 ####[facility] [address] [place] [address] Potassium [Moles/Vol] 4.1 mmol/L Normal 3.5-5.3 [facility] Comment on above: Performed By: #### 2 235279, 5920273, 00787659, 90829036, 9104941, 6726685, 0447796 ####[facility] [address] [place] [address] Sodium [Moles/Vol] 145 mmol/L Normal 135-145 [facility] Comment on above: Performed By: #### 2 739305, 9051920, 08697913, 42585153, 2097036, 9721672, 3404631 ####[facility] [address] [place] [address] PT & PTTon 07-02-2023 aPTT Coag (PPP) [Time] 27.5 second(s) Normal 25.1-36.5 [facility] Comment on above: Result Comment: Para meter [...] the same coagulation reagent and instrumentation as [facility]. Currently there are no coagulation studies available worldwide for children to 14 days, and no normal ranges. Heparin therapeutic range (represented by Anti-Factor Xa activity of 0.2 - 0.4 U/mL) corresponds to PTT of 56.6 - 109.0 sec. Performed By: #### 2 942071, 1525543, 83891085, 76440125, 3771519, 5029812, 3242865 ####[facility] [address] [place] [address] INR Coag (PPP) [Relative time] 1.0 {INR} Invalid Interpretation Code [facility] Comment on above: Result Comment: INR results are specifically intended to assess patients stabilized on long-term Anticoagulation therapy suggested INR?s ?Less Intensive Anticoagulation? 2.0 ? 3.0Conventional Range 3.0 ? 4.5 Performed By: #### 2 139373, 6342240, 68770388, 12858916, 4676493, 8354456, 7949315 ####[facility] [address] [place] [address] PT Coag (PPP) [Time] 11.4 second(s) Normal 9.4-12.5 [facility] Comment on above: Result Comment: 15 d [...] the same coagulation reagent and instrumentation as [facility]. Currently there are no coagulation studies available worldwide for children to 14 days, and no normal ranges. Performed By: #### 2 143119, 5495650, 41783467, 53495367, 0301151, 5727150, 5353948 ####[facility] [address] [place] [address] XR Abdomen 1 Viewon 07-02-20 23 XR Abdomen 1 View Normal [facility] eGFRon 07-02-2023 GFR/1.73 sq M.predicted among non-blacks MDRD (S/P/Bld) [Vol rate/Area] 44 mL/min/1.73 m2 Low >=59 [facility] Comment on above: Order Comment: Order added by Discern Expert. Result Comment: Patrol Conductor maxi kidney disease could be indicated at eGFR's of less than 60 mL/min/1.73m2. Kidney failure is indicated at less than 15 mL/min/1.73m2. Performed By: #### 2 576018, 5421797, 54496493, 43889953, 7827137, 3361404, 8553724 ####[facility] [address] [place] [address] Consent for Treatmenton Consent for Treatment [id number]#1 .00TIFF Normal [facility] Reminderson 06-11-2023 Reminders Normal [facility] XR Abdomen 1 Viewon 06-11-20 23 XR Abdomen 1 View [facility] Consent for Treatmenton 05-30 Consent for Treatment [id number]#1 .00TIFF Normal [facility] C Blood Charcoalon 3 Blood Culture Charcoal Normal [facility] Comment on above: Performed By: #### 1 2318737 ####[facility] [address] [place] [address] C Blood Charcoalon 3 Blood Culture Charcoal Normal [facility] Comment on above: Performed By: #### 1 2813801 ####[facility] [address] [place] [address] Blood Culture Charcoal [facility] Comment on above: Performed By: #### 1 4618162 ####[facility] [address] [place] [address] Consent for PICC lineon Consent for PICC line [id number]# 1.00TIFF [facility] Discharge Instructionson Discharge Instructions [id number]# 1.00CD:127 Normal [facility] C Blood Charcoalon 3 Blood Culture Charcoal Normal [facility] Comment on above: Performed By: #### 1 0722415 ####[facility] [address] [place] [address] CHEMISTRYOrdered By: Andrea JIMENEZ User on 06-02-2023 POC Username OBI AGARWAL Invalid Interpretation Code [facility] POC Subsection Sodium [Moles/Vol] 047205350748 mmol/L Invalid Interpretation Code [facility] POC Subsection Sodium [Moles/Vol] 171322658 mmol/L Invalid Interpretation Code [facility] POC Subsection Capillary Glucose POCOrdered By: Lab ROPUser on 06-02-2023 Glucose [Mass/Vol] 152 mg/dL High 55-99 [facility] P OC Subsection Comment on above: Result Comment: Modesto vanegas RN/ Result Comment: Modesto vanegas RN/ Performed By: #### 2 [id number] ####[facility] [address] [place] [address] Coding Queryon 06-02-2023 Coding Query Normal [facility] Inpatient Clinical Summaryon 06-02-2023 Inpatient Clinical Summary Normal [facility] Inpatient Patient Summaryon 06-02-2023 Inpatient Patient Summary Normal [facility] Inpatient Patient Summary Normal [facility] Interdisciplinary Note - Galo e Manageron 06-02-2023 Interdisciplinary Note - Interdisciplinary Professor Normal [facility] Comment on above: Result Comment: Elec tronically Signed By: Rayne Carpenter\.br\Date and Time Signed: 06/02/23 10:50 EDT BMPon 06-01-2023 Anion gap [Moles/Vol] 13 mmol/L Normal 6-16 [facility] Comment on above: Performed By: #### 2 252353, 04160502 ####[facility] [address] [place] [address] Calcium [Mass/Vol] 8.9 mg/dL Normal 8.9-11.1 [facility] Comment on above: Performed By: #### 2 271886, 78164198 ####[facility] [address] [place] [address] Chloride [Moles/Vol] 115 mmol/L High 101-111 [facility] Comment on above: Performed By: #### 2 947810, 86939772 ####[facility] [address] [place] [address] CO2 [Moles/Vol] 20 mmol/L Low 21-31 [facility] Comment on above: Performed By: #### 2 140317, 17042562 ####[facility] [address] [place] [address] Creatinine [Mass/Vol] 1.2 mg/dL Normal 0.5-1.3 [facility] Comment on above: Performed By: #### 2 394781, 10990962 ####[facility] [address] [place] [address] Glucose [Mass/Vol] 104 mg/dL Normal 55-199 [facility] Comment on above: Result Comment: If t his glucose result represents a fasting glucose, interpretation should refer to the following reference range: 55-99 mg/dL Performed By: #### 2 776322, 40540946 ####[facility] [address] [place] [address] Potassium [Moles/Vol] 3.6 mmol/L Normal 3.5-5.3 [facility] Comment on above: Performed By: #### 2 971315, 03553807 ####[facility] [address] [place] [address] Sodium [Moles/Vol] 144 mmol/L Normal 135-145 [facility] Comment on above: Performed By: #### 2 129673, 30216392 ####[facility] [address] [place] [address] Urea nitrogen [Mass/Vol] 17 mg/dL Normal 5-21 [facility] Comment on above: Performed By: #### 2 627262, 74037446 ####[facility] [address] [place] [address] Urea nitrogen/Creatinine [Mass ratio] 14 No Units Normal 10-20 [facility] Comment on above: Performed By: #### 2 752562, 59649192 ####[facility] [address] [place] [address] CHEMISTRYOrdered By: Lab ROP User on 06-01-2023 Glucose [Mass/Vol] 213 mg/dL High 55 - 99 mg/dL [facility] POC Subsection Comment on above: Result Comment: Modesto vanegas RN/ POC Username ASHOK ORTEZ Invalid Interpretation Code [facility] POC Subsection Sodium [Moles/Vol] 996565997016 mmol/L Invalid Interpretation Code [facility] POC Subsection Sodium [Moles/Vol] 012515083 mmol/L Invalid Interpretation Code [facility] POC Subsection Glucose [Mass/Vol] 183 mg/dL High 55 - 99 mg/dL [facility] POC Subsection Comment on above: Result Comment: Modesto vanegas RN/ POC Username JANIA GREEN Invalid Interpretation Code [facility] POC Subsection Sodium [Moles/Vol] 686294982095 mmol/L Invalid Interpretation Code [facility] POC Subsection Sodium [Moles/Vol] 211333499 mmol/L Invalid Interpretation Code [facility] POC Subsection CHEMISTRYOrdered By: SYSTEM SYSTEM on 06-01-2023 Anion gap [Moles/Vol] 13 mmol/L Normal 6 - 16 mEq/L FT Remisol Calcium [Mass/Vol] 8.9 mg/dL Normal 8.9 - 11.1 mg/dL [facility] Remisol Chloride [Moles/Vol] 115 mmol/L High 101 - 111 mmol/ L [facility] Remisol CO2 [Moles/Vol] 20 mmol/L Low 21 - 31 mmol/L [facility] Remisol Creatinine [Mass/Vol] 1.2 mg/dL Normal 0.5 - 1.3 mg/dL [facility] Remisol GFR/1.73 sq M.predicted among non-blacks MDRD (S/P/Bld) [Vol rate/Area] 48 mL/min/1.73 m2 Low >=59mL/min/1.73 m2 [facility] Chem S Comment on [...] 3.6 mmol/L Normal 3.5 - 5.3 mmol/L [facility] Remisol Sodium [Moles/Vol] 144 mmol/L Normal 135 - 145 mmol/L [facility] Remisol Urea nitrogen [Mass/Vol] 17 mg/dL Normal 5 - 21 mg/dL [facility] Remisol Urea nitrogen/Creatinine [Mass ratio] 14 mg/mg Normal 10 - 20 FT Remisol Capillary Glucose POCon 10 Glucose [Mass/Vol] 213 mg/dL High 55-99 [facility] Comment on above: Result Comment: Modesto ANDRES Performed By: #### 2 [id number] ####[facility] [address] [place] [address] Glucose [Mass/Vol] 183 mg/dL High 55- [facility] Comment on above: Result Comment: Modesto ANDRES Performed By: #### 2 18135529 ####[facility] [address] [place] [address] Glucose [Mass/Vol] 270 mg/dL High 55- [facility] Comment on above: Result Comment: Modesto ANDRES Performed By: #### 2 53960865 ####[facility] [address] [place] [address] Glucose [Mass/Vol] 102 mg/dL High - [facility] Comment on above: Result Comment: Modesto ANDRES Performed By: #### 2 43628620 ####[facility] [address] [place] [address] Consultation Noteon 06-01-20 Consultation Note [facility] Comment on above: Result Comment: Elec tronically Signed By: Garrett Palmer M.D\.br\Date and Time Signed: 06/01/23 14:24 EDT Interdisciplinary Note - Galo e Manageron 06-01-2023 Interdisciplinary Note - Interdisciplinary Professor [facility] Comment on above: Result Comment: Elec tronically Signed By: Rayne Carpenter\.br\Date and Time Signed: 06/01/23 15:24 EDT Progress Note-Physicianon Progress Note-Physician [facility] Comment on above: Result Comment: Elec tronically Signed By: Jhonny Barrett DObr\Date and Time Signed: 06/01/23 13:20 EDT Progress Note-Physician [facility] Comment on above: Result Comment: Elec tronically Signed By: MD Ingrid, Jossy Greene\.br\Date and Time Signed: 06/01/23 11:21 EDT Progress Note-Physician Normal [facility] Comment on above: Result Comment: Elec tronically Signed By: MD Ingrid, Jossy Adam.br\Date and Time Signed: 06/01/23 11:17 EDT eGFRon 06-01-2023 GFR/1.73 sq M.predicted among non-blacks MDRD (S/P/Bld) [Vol rate/Area] 48 mL/min/1.73 m2 Low >=59 [facility] Comment on above: Order Comment: Order added by Discern Expert. Result Comment: Patrol Conductor maxi kidney disease could be indicated at eGFR's of less than 60 mL/min/1.73m2. Kidney failure is indicated at less than 15 mL/min/1.73m2. Performed By: #### 2 103799, [id number] ####[facility] [address] [place] [address] C Blood Charcoalon 3 Blood Culture Charcoal Normal [facility] Comment on above: Performed By: #### 1 [id number] ####[facility] [address] [place] [address] Capillary Glucose POCon Glucose [Mass/Vol] 161 mg/dL High 55-99 [facility] Comment on above: Result Comment: Modesto vanegas RN/ Performed By: #### 2 [id number] ####[facility] [address] [place] [address] Glucose [Mass/Vol] 142 mg/dL High 55-99 [facility] Comment on above: Result Comment: Modesto ANDRES Performed By: #### 2 39721368 ####[facility] [address] [place] [address] Glucose [Mass/Vol] 201 mg/dL High 55-99 [facility] Comment on above: Result Comment: Modesto vanegas RN/ Performed By: #### 2 53540867 ####[facility] [address] [place] [address] Glucose [Mass/Vol] 139 mg/dL High 55-99 [facility] Comment on above: Result Comment: Modesto vanegas RN/ Performed By: #### 2 [id number] ####[facility] [address] [facility] [address] Interdisciplinary Note - Galo e Manageron 05-31-2023 Interdisciplinary Note - Interdisciplinary Professor [facility] Comment on above: Result Comment: Elec tronically Signed By: Rayne Carpenter\Sharynbr\Date and Time Signed: 05/31/23 10:58 EDT Interdisciplinary Note - Interdisciplinary Professor [facility] Comment on above: Result Comment: Elec tronically Signed By: Rayne Carpenter\Sharynbr\Date and Time Signed: 05/31/23 10:40 EDT IntraOperative Documentson 1 IntraOperative Documents [id number]# 1.00CD:127 Normal [facility] Progress Note-Physicianon Progress Note-Physician Normal [facility] Comment on above: Result Comment: Elec tronically Signed By: Jhonny Barrett DO\Date and Time Signed: 05/31/23 11:13 EDT BMPon 05-30-2023 Anion gap [Moles/Vol] 5 mmol/L Low 6-16 [facility] Comment on above: Performed By: #### 2 721686, 67330392 ####[facility] [address] [place] [address] Calcium [Mass/Vol] 8.1 mg/dL Low 8.9-11.1 [facility] Comment on above: Performed By: #### 2 220422, 82757934 ####[facility] [address] [place] [address] Chloride [Moles/Vol] 116 mmol/L High 101-111 [facility] Comment on above: Performed By: #### 2 837807, 23008595 ####[facility] [address] [place] [address] CO2 [Moles/Vol] 24 mmol/L Normal 21-31 [facility] Comment on above: Performed By: #### 2 248574, 54871387 ####[facility] [address] [place] [facility] [place] [address] Creatinine [Mass/Vol] 1.6 mg/dL High 0.5-1.3 [facility] Comment on above: Performed By: #### 2 196250, 86903108 ####[facility] [address] [place] [address] Glucose [Mass/Vol] 105 mg/dL Normal 55-199 [facility] Comment on above: Result Comment: If t his glucose result represents a fasting glucose, interpretation should refer to the following reference range: 55-99 mg/dL Performed By: #### 2 857193, [id number] ####[facility] [address] [place] [address] Potassium [Moles/Vol] 3.8 mmol/L Normal 3.5-5.3 [facility] Comment on above: Performed By: #### 2 108909, 44682436 ####[facility] [address] [place] [address] Sodium [Moles/Vol] 141 mmol/L Normal 135-145 [facility] Comment on above: Performed By: #### 2 275396, 00941860 ####[facility] [address] [place] [address] Urea nitrogen [Mass/Vol] 28 mg/dL High 5-21 [facility] Comment on above: Performed By: #### 2 853958, 45160507 ####[facility] [address] [place] [facility] [place] [address] Urea nitrogen/Creatinine [Mass ratio] 18 No Units Normal 10-20 [facility] Comment on above: Performed By: #### 2 370642, [id number] ####[facility] [address] [place] [facility] [place] [address] C Urineon 05-30-2023 Bacteria identified Cx Nom (U) Normal [facility] Comment on above: Performed By: #### 1 2648970, 1212071 ####[facility] [address] [place] [address] CHEMISTRYOrdered By: SYSTEM SYSTEM on 05-30-2023 Anion gap [Moles/Vol] 5 mmol/L Low 6 - 16 mEq/L [facility] Remisol Calcium [Mass/Vol] 8.1 mg/dL Low 8.9 - 11.1 mg/dL [facility] Remisol Chloride [Moles/Vol] 116 mmol/L High 101 - 111 mmol/ L [facility] Remisol CO2 [Moles/Vol] 24 mmol/L Normal 21 - 31 mmol/L [facility] Remisol Creatinine [Mass/Vol] 1.6 mg/dL High 0.5 - 1.3 mg/dL [facility] Remisol GFR/1.73 sq M.predicted among non-blacks MDRD (S/P/Bld) [Vol rate/Area] 34 mL/min/1.73 m2 Low >=59mL/min/1.73 m2 [facility] Chem S Comment on above: Interpretive Data: C hronic kidney disease could be indicated at eGFR's of less than 60 mL/min/1.73m2. Kidney failure is indicated at less than 15 mL/min/1.73m2. Glucose [Mass/Vol] 105 mg/dL Normal 55 - 199 mg/dL [facility] Remisol Comment on above: Interpretive Data: I f this glucose result represents a fasting glucose, interpretation should refer to the following reference range: 55-99 mg/dL Potassium [Moles/Vol] 3.8 mmol/L Normal 3.5 - 5.3 mmol/L [facility] Remisol Sodium [Moles/Vol] 141 mmol/L Normal 135 - 145 mmol/L [facility] Remisol Urea nitrogen [Mass/Vol] 28 mg/dL High 5 - 21 mg/dL [facility] Remisol Urea nitrogen/Creatinine [Mass ratio] 18 mg/mg Normal 10 - 20 [facility] Remisol Capillary Glucose POCon Glucose [Mass/Vol] 209 mg/dL High 55-99 [facility] Comment on above: Result Comment: Modesto vanegas RN/ Performed By: #### 2 [id number] ####[facility] [address] [place] [address] Glucose [Mass/Vol] 171 mg/dL High 55-99 [facility] Comment on above: Result Comment: Modesto vanegas RN/ Performed By: #### 2 [id number] ####[facility] [address] [place] [address] Glucose [Mass/Vol] 191 mg/dL High 55-99 [facility] Comment on above: Result Comment: Modesto vanegas RN/ Performed By: #### 2 [id number] ####[facility] [address] [place] [address] Glucose [Mass/Vol] 92 mg/dL Normal 55-99 [facility] Comment on above: Result Comment: Modesto vanegas RN/ Performed By: #### 2 [id number] ####[facility] [address] [place] [address] Interdisciplinary Note - Galo e Manageron 05-30-2023 Interdisciplinary Note - Interdisciplinary Professor Normal [facility] Comment on above: Result Comment: Elec tronically Signed By: Crow MARCUM, Radhika\.br\Date and Time Signed: 05/30/23 13:39 EDT No Panel InformationOrdered By: ANGPROCESSSERVER MICROBIOLOGY on 05-30-2023 Blood Culture Charcoal No growth at 3 days. Final to follow at 7 days. [facility] Blood Culture Charcoal No growth at 3 days. Final to follow at 7 days. [facility] Progress Note-Physicianon Progress Note-Physician Normal [facility] Comment on above: Result Comment: Elec tronically Signed By: ISHAN CHISHOLM, Felice\.br\Date and Time Signed: 05/30/23 09:03 EDT eGFRon 05-30-2023 GFR/1.73 sq M.predicted among non-blacks MDRD (S/P/Bld) [Vol rate/Area] 34 mL/min/1.73 m2 Low >=59 [facility] Comment on above: Order Comment: Order added by Discern Expert. Result Comment: Patrol Conductor maxi kidney disease could be indicated at eGFR's of less than 60 mL/min/1.73m2. Kidney failure is indicated at less than 15 mL/min/1.73m2. Performed By: #### 2 991511, [id number] ####[facility] [address] [place] [address] Auto Diffon 05-29-2023 Basophils/100 WBC (Bld) 0.2 % Normal 0.0-2.0 [facility] Comment on above: Order Comment: Order Added by Discern Expert. Performed By: #### 2 921256, 7507208, 8130015, 29290391 ####[address] [address] Basophils/Leukocytes Auto (Bld) [Pure # fraction] 0.0 E9/L Normal 0.0-0.2 [facility] Comment on above: Order Comment: Order Added by Discern Expert. Performed By: #### 2 891857, 8371899, 7485656, 71126436 ####[address] [address] Eosinophils/100 WBC (Bld) 1.1 % Normal 0.0-8.0 [facility] Comment on above: Order Comment: Order Added by Discern Expert. Performed By: #### 2 509900, 5420016, 9937137, 51815109 ####[address] [address] Eosinophils/Leukocyt es Auto (Bld) [Pure # fraction] 0.1 E9/L Normal 0.0-0.5 [facility] Comment on above: Order Comment: Order Added by Discern Expert. Performed By: #### 2 168213, 3667692, 7128011, 94300845 ####[address] [address] Lymphocytes/100 WBC (Bld) 4.9 % Low 14.0-50.0 [facility] Comment on above: Order Comment: Order Added by Discern Expert. Performed By: #### 2 739394, 6788503, 2462674, 47490165 ####[address] [address] Lymphocytes/Leukocyt es Auto (Bld) [Pure # fraction] 0.4 E9/L Low 1.0-4.0 [facility] Comment on above: Order Comment: Order Added by Discern Expert. Performed By: #### 2 446558, 5496996, 4419944, 54155298 ####[facility] [address] [place] [address] Monocytes/100 WBC (Bld) 6.4 % Normal 4.0-14.0 [facility] Comment on above: Order Comment: Order Added by Discern Expert. Performed By: #### 2 297080, 7389009, 8263481, 60843678 ####[address] [place] [address] Monocytes/Leukocytes Auto (Bld) [Pure # fraction] 0.6 E9/L Normal 0.2-1.0 [facility] Comment on above: Order Comment: Order Added by Discern Expert. Performed By: #### 2 228446, 5604107, 2548537, 78243796 ####[address] [place] [address] Neutrophils/100 WBC (Bld) 87.4 % High 36.0-75.0 [facility] Comment on above: Order Comment: Order Added by Discern Expert. Performed By: #### 2 450171, 9513582, 3603517, 62413045 ####[address] [place] [address] Neutrophils/Leukocyt es Auto (Bld) [Pure # fraction] 7.6 E9/L High 2.0-7.5 [facility] Comment on above: Order Comment: Order Added by Discern Expert. Performed By: #### 2 922440, 9466344, 8279381, 50488797 ####[address] [place] [address] BMPon 05-29-2023 Anion gap [Moles/Vol] 10 mmol/L Normal 6-16 [facility] Comment on above: Performed By: #### 2 155729, 0190527, 6284352, 23175776 ####[facility] [address] [place] [address] Calcium [Mass/Vol] 8.2 mg/dL Low 8.9-11.1 [facility] Comment on above: Performed By: #### 2 986374, 8087049, 1811144, 20746199 ####[facility] [address] [place] [address] Chloride [Moles/Vol] 109 mmol/L Normal 101-111 [facility] Comment on above: Performed By: #### 2 802078, 9329837, 5220673, 31926551 ####[facility] [address] [place] [address] CO2 [Moles/Vol] 24 mmol/L Normal 21-31 [facility] Comment on above: Performed By: #### 2 576291, 5392461, 1291744, 62190069 ####[facility] [address] [place] [address] Creatinine [Mass/Vol] 1.9 mg/dL High 0.5-1.3 [facility] Comment on above: Performed By: #### 2 938150, 9659074, 6257986, 86716859 ####[facility] [address] [place] [address] Glucose [Mass/Vol] 160 mg/dL Normal 55-199 [facility] Comment on above: Result Comment: If t his glucose result represents a fasting glucose, interpretation should refer to the following reference range: 55-99 mg/dL Performed By: #### 2 404409, 1346346, 7934347, 40015447 ####[facility] [address] [facility] [place] [address] Potassium [Moles/Vol] 3.4 mmol/L Low 3.5-5.3 [facility] Comment on above: Performed By: #### 2 174333, 2726282, 6634273, 48198379 ####[facility] [address] [place] [address] Sodium [Moles/Vol] 140 mmol/L Normal 135-145 [facility] Comment on above: Performed By: #### 2 509379, 8362827, 1305431, 18758853 ####[facility] [address] [place] [address] Urea nitrogen [Mass/Vol] 30 mg/dL High 5-21 [facility] Comment on above: Performed By: #### 2 054553, 6326804, 1184016, 37366614 ####[facility] [address] [place] [address] Urea nitrogen/Creatinine [Mass ratio] 16 No Units Normal 10-20 [facility] Comment on above: Performed By: #### 2 917008, 6051494, 2433610, 06050429 ####[facility] [address] [place] [address] C Urineon 05-29-2023 Bacteria identified Cx Nom (U) Normal [facility] Comment on above: Performed By: #### 1 0065207, 0343541 ####[facility] [address] [place] [address] CBC w/ Auto Diffon Erythrocyte distribution width (RBC) [Ratio] 13.2 % Normal 10.9-14.2 [facility] Comment on above: Performed By: #### 2 704445, 8075309, 3440658, 17285212 ####[facility] [address] [place] [address] Hematocrit (Bld) [Volume fraction] 34.7 % Normal 34.0-46.0 [facility] Comment on above: Performed By: #### 2 838521, 9954993, 1444871, 76402463 ####[facility] [address] [place] [address] Hemoglobin (Bld) [Mass/Vol] 11.9 g/dL Low 12.0-16.0 [facility] Comment on above: Performed By: #### 2 903941, 5053201, 9548238, 18436810 ####[place] [address] [address] MCH (RBC) [Entitic mass] 31.1 pg Normal 27.0-34.0 [facility] Comment on above: Performed By: #### 2 866465, 0663574, 8008061, 16003251 ####[address] [address] MCHC (RBC) [Mass/Vol] 34.2 g/dL Normal 31.4-36.0 [facility] Comment on above: Performed By: #### 2 851094, 3279034, 6932449, 37928057 ####[address] MCV (RBC) [Entitic vol] 91.0 fL Normal 80.0-100.0 [facility] Comment on above: Performed By: #### 2 377848, 7730371, 0085480, 62981638 ####[address] Platelet mean volume (Bld) [Entitic vol] 7.7 fL Normal 6.4-10.8 [facility] Comment on above: Performed By: #### 2 528234, 4226660, 9112429, 23413425 ####[address] [address] Platelets (Bld) [#/Vol] 152.0 E9/L Normal 150.0-500.0 [facility] Comment on above: Performed By: #### 2 674533, 7225475, 9805983, 86054035 ####[address] [address] RBC (Bld) [#/Vol] 3.8 E12/L Low 4.3-5.9 [facility] Comment on above: Performed By: #### 2 874957, 0042312, 6827728, 09613093 ####[address] [address] WBC corrected for nucl RBC Auto (Bld) [#/Vol] 8.7 E9/L Normal 4.0-11.0 [facility] Comment on above: Performed By: #### 2 536733, 3716919, 3747048, 87647888 ####[facility] [address] [place] [address] CHEMISTRYOrdered By: SYSTEM SYSTEM on 05-29-2023 Anion gap [Moles/Vol] 10 mmol/L Normal 6 - 16 mEq/L [facility] Remisol Calcium [Mass/Vol] 8.2 mg/dL Low 8.9 - 11.1 mg/dL [facility] Chloride [Moles/Vol] 109 mmol/L Normal 101 - 111 mmol/ L [facility] CO2 [Moles/Vol] 24 mmol/L Normal 21 - 31 mmol/L [facility] Creatinine [Mass/Vol] 1.9 mg/dL High 0.5 - 1.3 mg/dL [facility] Remisol GFR/1.73 sq M.predicted among non-blacks MDRD (S/P/Bld) [Vol rate/Area] 28 mL/min/1.73 m2 Low >=59mL/min/1.73 m2 [facility] Chem S Comment on [...] 3.4 mmol/L Low 3.5 - 5.3 mmol/L [facility] Remisol Sodium [Moles/Vol] 140 mmol/L Normal 135 - 145 mmol/L [facility] Urea nitrogen [Mass/Vol] 30 mg/dL High 5 - 21 mg/dL [facility] Remisol Urea nitrogen/Creatinine [Mass ratio] 16 mg/mg Normal 10 - 20 [facility] Capillary Glucose POCon 05-02 Glucose [Mass/Vol] 205 mg/dL High 55-99 [facility] Comment on above: Result Comment: Modesto vanegas RN/MD Performed By: #### 2 [id number] ####[facility] [address] [place] [address] Glucose [Mass/Vol] 214 mg/dL High 55-99 [facility] Comment on above: Result Comment: Sheryl minda Meter Performed By: #### 2 38754307 ####[facility] [address] [place] [address] Glucose [Mass/Vol] 206 mg/dL High 55-99 [facility] Comment on above: Result Comment: Sheryl minda Meter Performed By: #### 2 43139272 ####[facility] [address] [place] [address] Glucose [Mass/Vol] 156 mg/dL High 55-99 [facility] Comment on above: Result Comment: Sheryl minda Meter Performed By: #### 2 65126060 ####[facility] [address] [place] [address] HEMATOLOGYOrdered By: SYSTEM SYSTEM on 05-29-2023 Basophils/100 [...] 87.4 % High 36.0 - 75.0 % [facility]eAutoSS Neutrophils/Leukocyt es Auto (Bld) [Pure # fraction] 7.6 E9/L High 2.0 - 7.5 E9/L [facility]eAutoSS HEMATOLOGYOrdered By: Rayne Barnhart on 05-29-2023 Erythrocyte distribution width (RBC) [Ratio] 13.2 % Normal 10.9 - 14.2 % [facility]eAuto[facility] Hematocrit (Bld) [Volume fraction] 34.7 % Normal 34.0 - 46.0 % [facility] Hemoglobin (Bld) [Mass/Vol] 11.9 g/dL Low 12.0 - 16.0 gm/dL [facility] MCH (RBC) [Entitic mass] 31.1 pg Normal 27.0 - 34.0 pg [facility] MCHC (RBC) [Mass/Vol] 34.2 g/dL Normal 31.4 - 36.0 gm/dL [facility] MCV (RBC) [Entitic vol] 91.0 fL Normal 80.0 - 100.0 fL [facility] Platelet mean volume (Bld) [Entitic vol] 7.7 fL Normal 6.4 - 10.8 fL [facility]eAuto[facility] Platelets (Bld) [#/Vol] 152.0 E9/L Normal 150.0 - 500.0 E9/L [facility] RBC (Bld) [#/Vol] 3.8 E12/L Low 4.3 - 5.9 E12/L [facility]eAuto[facility] WBC corrected for nucl RBC Auto (Bld) [#/Vol] 8.7 E9/L Normal 4.0 - 11.0 E9/L [facility] Interdisciplinary Note - PTo n 05-29-2023 Interdisciplinary Note - PT Normal [facility] Message from Medicareon 05-02 Message from Medicare [id number]# 1.00CD:127 Normal [facility] No Panel InformationOrdered By: ANGPROCESSSERVER MICROBIOLOGY on 05-29-2023 Blood Culture Charcoal No growth at 4 days. Final to follow at 7 days. [facility] Blood Culture Charcoal No growth at 4 days. Final to follow at 7 days. [facility] Progress Note-Physicianon Progress Note-Physician Normal [facility] Comment on above: Result Comment: Elec tronically Signed By: ISHAN CHISHOLM, Felice\.br\Date and Time Signed: 05/29/23 15:21 EDT eGFRon 05-29-2023 GFR/1.73 sq M.predicted among non-blacks MDRD (S/P/Bld) [Vol rate/Area] 28 mL/min/1.73 m2 Low >=59 [facility] Comment on above: Order Comment: Order added by Discern Expert. Result Comment: Patrol Conductor maxi kidney disease could be indicated at eGFR's of less than 60 mL/min/1.73m2. Kidney failure is indicated at less than 15 mL/min/1.73m2. Performed By: #### 2 167153, 4424653, 6625636, 45920124 ####[facility] [address] [place] [address] Auto Diffon 05-28-2023 Basophils/100 WBC (Bld) 0.2 % Normal 0.0-2.0 [facility] Comment on above: Order Comment: Order Added by Discern Expert. Performed By: #### 2 101823, 79178484, 8591832, 0059999 ####[facility] [address] [place] [address] Basophils/Leukocytes Auto (Bld) [Pure # fraction] 0.0 E9/L Normal 0.0-0.2 [facility] Comment on above: Order Comment: Order Added by Discern Expert. Performed By: #### 2 785561, 70416025, 0287261, 0766069 ####[facility] [address] [place] [address] Eosinophils/100 WBC (Bld) 0.1 % Normal 0.0-8.0 [facility] Comment on above: Order Comment: Order Added by Discern Expert. Performed By: #### 2 566660, 43855503, 4906723, 2150341 ####[facility] [address] [place] [address] Eosinophils/Leukocyt es Auto (Bld) [Pure # fraction] 0.0 E9/L Normal 0.0-0.5 [facility] Comment on above: Order Comment: Order Added by Discern Expert. Performed By: #### 2 292168, 16472583, 6437393, 5281363 ####[address] [place] [address] Lymphocytes/100 WBC (Bld) 2.6 % Low 14.0-50.0 [facility] Comment on above: Order Comment: Order Added by Discern Expert. Performed By: #### 2 198784, 38872402, 3955602, 0671388 ####[address] [address] Lymphocytes/Leukocyt es Auto (Bld) [Pure # fraction] 0.3 E9/L Low 1.0-4.0 [facility] Comment on above: Order Comment: Order Added by Discern Expert. Performed By: #### 2 687106, 39234774, 9479754, 3117606 ####[address] [address] Monocytes/100 WBC (Bld) 3.8 % Low 4.0-14.0 [facility] Comment on above: Order Comment: Order Added by Christen Expert. Performed By: #### 2 375067, 49024014, 4305912, 9643783 ####[address] [address] Monocytes/Leukocytes Auto (Bld) [Pure # fraction] 0.5 E9/L Normal 0.2-1.0 [facility] Comment on above: Order Comment: Order Added by Discern Expert. Performed By: #### 2 973848, 79852130, 2243439, 3200724 ####[address] [address] Neutrophils/100 WBC (Bld) 93.3 % High 36.0-75.0 [facility] Comment on above: Order Comment: Order Added by Discern Expert. Performed By: #### 2 643382, 02800836, 8290828, 4195945 ####[facility] [address] [place] [address] Neutrophils/Leukocyt es Auto (Bld) [Pure # fraction] 11.2 E9/L High 2.0-7.5 [facility] Comment on above: Order Comment: Order Added by Discern Expert. Performed By: #### 2 268062, 16213129, 2029377, 3822193 ####[facility] [address] [place] [address] BMPon 05-28-2023 Anion gap [Moles/Vol] 11 mmol/L Normal 6-16 [facility] Comment on above: Performed By: #### 2 472539, 20870870, 5426128, 0868643 ####[address] [place] [address] Calcium [Mass/Vol] 8.0 mg/dL Low 8.9-11.1 [facility] Comment on above: Performed By: #### 2 539784, 72150031, 2434144, 3932713 ####[facility] [address] [place] [address] Chloride [Moles/Vol] 109 mmol/L Normal 101-111 [facility] Comment on above: Performed By: #### 2 413836, 28957630, 9501999, 8313124 ####[facility] [address] [place] [address] CO2 [Moles/Vol] 22 mmol/L Normal 21-31 [facility] Comment on above: Performed By: #### 2 885066, 45677762, 2257391, 6803947 ####[facility] [address] [place] [address] Creatinine [Mass/Vol] 2.0 mg/dL High 0.5-1.3 [facility] Comment on above: Performed By: #### 2 725998, 39557523, 0616108, 1988639 ####[facility] [address] [place] [address] Glucose [Mass/Vol] 161 mg/dL Normal 55-199 [facility] Comment on above: Result Comment: If t his glucose result represents a fasting glucose, interpretation should refer to the following reference range: 55-99 mg/dL Performed By: #### 2 900736, 52664630, 5647646, 2288206 ####[facility] [address] [place] [address] Potassium [Moles/Vol] 3.5 mmol/L Normal 3.5-5.3 [facility] Comment on above: Performed By: #### 2 148838, 49291262, 6556814, 4169862 ####[facility] [address] [place] [address] Sodium [Moles/Vol] 138 mmol/L Normal 135-145 [facility] Comment on above: Performed By: #### 2 357572, 60710222, 6886032, 4985996 ####[facility] [address] [place] [address] Urea nitrogen [Mass/Vol] 25 mg/dL High 5-21 [facility] Comment on above: Performed By: #### 2 603781, 57253095, 3545147, 6693159 ####[facility] [address] [place] [address] Urea nitrogen/Creatinine [Mass ratio] 12 No Units Normal 10-20 [facility] Comment on above: Performed By: #### 2 860699, 89775101, 5689990, 9515297 ####[facility] [address] [place] [address] CBC w/ Auto Diffon 3 Erythrocyte distribution width (RBC) [Ratio] 13.5 % Normal 10.9-14.2 [facility] Comment on above: Performed By: #### 2 244560, 13812792, 7356163, 8897052 ####[facility] [address] [place] [address] Hematocrit (Bld) [Volume fraction] 36.0 % Normal 34.0-46.0 [facility] Comment on above: Performed By: #### 2 029112, 94476973, 1526918, 3611051 ####[facility] [address] [place] [address] Hemoglobin (Bld) [Mass/Vol] 12.3 g/dL Normal 12.0-16.0 [facility] Comment on above: Performed By: #### 2 824368, 92062885, 5566358, 5101700 ####[address] [address] MCH (RBC) [Entitic mass] 31.0 pg Normal 27.0-34.0 [facility] Comment on above: Performed By: #### 2 960158, 18084325, 9114522, 2004012 ####[address] [address] MCHC (RBC) [Mass/Vol] 34.2 g/dL Normal 31.4-36.0 [facility] Comment on above: Performed By: #### 2 881034, 60533807, 1712792, 0815459 ####[address] [address] MCV (RBC) [Entitic vol] 90.7 fL Normal 80.0-100.0 [facility] Comment on above: Performed By: #### 2 870000, 20871333, 6304434, 6325444 ####[address] [address] Platelet mean volume (Bld) [Entitic vol] 7.3 fL Normal 6.4-10.8 [facility] Comment on above: Performed By: #### 2 254936, 53011004, 6012392, 4845496 ####[address] [address] Platelets (Bld) [#/Vol] 154.0 E9/L Normal 150.0-500.0 [facility] Comment on above: Performed By: #### 2 034872, 76147196, 5051676, 0315966 ####[facility] [address] [place] [address] RBC (Bld) [#/Vol] 4.0 E12/L Low 4.3-5.9 [facility] Comment on above: Performed By: #### 2 841074, 00873192, 6025995, 5115316 ####[address] [address] WBC corrected for nucl RBC Auto (Bld) [#/Vol] 12.0 E9/L High 4.0-11.0 [facility] Comment on above: Performed By: #### 2 133122, 03198524, 0565722, 5526914 ####[address] [address] Capillary Glucose POCon 05-01 Glucose [Mass/Vol] 173 mg/dL High 55-99 [facility] Comment on above: Result Comment: Modetso ANDRES Performed By: #### 2 81777328 ####[address] [address] Glucose [Mass/Vol] 122 mg/dL High [address] [place] [address] Comment on above: Result Comment: [place] ANDRES Performed By: #### 2 64870140 ####[address] [place] [address] Glucose [Mass/Vol] 140 mg/dL High 55-99 [facility] Comment on above: Result Comment: [place] ANDRES Performed By: #### 2 41304689 ####[address] [place] [address] Glucose [Mass/Vol] 145 mg/dL High [address] [place] [address] Comment on above: Result Comment: [place] ANDRES Performed By: #### 2 54881351 ####[facility] [address] [place] [address] Consent for Anesthesiaon Consent for Anesthesia [id number]# 1.00CD:127 Normal [facility] HEMATOLOGYOrdered By: SYSTEM SYSTEM on 05-28-2023 Basophils/100 [...] 34.2 g/dL Normal 31.4 - 36.0 gm/dL [facility] HemeAutoSS MCV (RBC) [Entitic vol] 90.7 fL Normal 80.0 - 100.0 fL [facility] HemeAutoSS Platelet mean volume (Bld) [Entitic vol] 7.3 fL Normal 6.4 - 10.8 fL [facility] HemeAutoSS Platelets (Bld) [#/Vol] 154.0 E9/L Normal 150.0 - 500.0 E9/L [facility] HemeAutoSS RBC (Bld) [#/Vol] 4.0 E12/L Low 4.3 - 5.9 E12/L [facility] HemeAutoSS WBC corrected for nucl RBC Auto (Bld) [#/Vol] 12.0 E9/L High 4.0 - 11.0 E9/L [facility] HemeAutoSS Insurance Correspondence Off iceon 05-28-2023 Insurance Correspondence Office [id number]#1 .00CD:127 Normal [facility] Interdisciplinary Note - Galo e Manageron 05-28-2023 Interdisciplinary Note - Interdisciplinary Professor Normal [facility] Comment on above: Result Comment: Elec tronically Signed By: Rayne Carpenter\.br\Date and Time Signed: 05/28/23 12:00 EDT IntraOperative Documentson 0 05-28-2023 IntraOperative Documents [id number]# 1.00CD:127 Normal [facility] Laboratory - Microbiology an d Antimicrobial susceptibilityOrdered By: Nata Prieto on 05-28-2023 Bacteria identified Cx Nom (U) 25,000 cfu/ml Anastacia albicans Presumptive isolated. [facility] Main OR Intraoperative Recor don 05-28-2023 Main OR Intraoperative Record Normal [facility] Progress Note-Physicianon Progress Note-Physician Normal [facility] Comment on above: Result Comment: Elec tronically Signed By: ISHAN CHISHOLM, Felice\.br\Date and Time Signed: 05/28/23 09:20 EDT UA With Cult Reflexon 2022 UA Spec Desc Catheter Normal [facility] Comment on above: Order Comment: Urina ry Catheter Insertion triggered Urinalysis With Culture Reflex order by discern. Performed By: #### 1 6695178, 5514279 ####[address] [address] Bacteria LM Ql (Urine sed) 2+ /HPF Abnormal Trace [facility] Comment on above: Order Comment: Urina ry Catheter Insertion triggered Urinalysis With Culture Reflex order by discern. Performed By: #### 1 8055947, 3031224 ####[address] [address] Bilirubin Ql (U) Negative Normal Negative [facility] Comment on above: Order Comment: Urina ry Catheter Insertion triggered Urinalysis With Culture Reflex order by discern. Performed By: #### 1 4789693, 1943791 ####[address] [address] Clarity (U) SL CLOUDY Abnormal Clear [facility] Comment on above: Order Comment: Urina ry Catheter Insertion triggered Urinalysis With Culture Reflex order by discern. Performed By: #### 1 5633395, 6926459 ####[address] [address] Color (U) YELLOW Normal Yellow [facility] Comment on above: Order Comment: Urina ry Catheter Insertion triggered Urinalysis With Culture Reflex order by discern. Performed By: #### 1 1368423, 2131039 ####[address] [address] Crystals LM Ql (Urine sed) Present Normal [facility] Comment on above: Order Comment: Urina ry Catheter Insertion triggered Urinalysis With Culture Reflex order by discern. Performed By: #### 1 8985300, 9129033 ####[address] [address] Epithelial cells.squamous LM.HPF (Urine sed) [#/Area] 0-2 Normal 0-2 [facility] Comment on above: Order Comment: Urina ry Catheter Insertion triggered Urinalysis With Culture Reflex order by discern. Performed By: #### 1 [id number], 8854803 ####[facility] [place] [address] Glucose Test strip (U) [Mass/Vol] Negative Normal Negative [facility] Comment on above: Order Comment: Urina ry Catheter Insertion triggered Urinalysis With Culture Reflex order by discern. Performed By: #### 1 4555206, 6606253 ####[facility] [address] [place] [address] Hemoglobin Ql (U) 3+ Abnormal Negative [facility] Comment on above: Order Comment: Urina ry Catheter Insertion triggered Urinalysis With Culture Reflex order by discern. Performed By: #### 1 2211810, 3760920 ####[address] [address] Ketones (U) [Mass/Vol] Negative Normal Negative [facility] Comment on above: Order Comment: Urina ry Catheter Insertion triggered Urinalysis With Culture Reflex order by discern. Performed By: #### 1 2820278, 3495852 ####[address] [address] [place].plasma/Lithi um.RBC (Bld) [Mass ratio] 0-3 Normal 0-3 [facility] Comment on above: Order Comment: Urina ry Catheter Insertion triggered Urinalysis With Culture Reflex order by discern. Performed By: #### 1 5663057, 9226861 ####[address] [address] Nitrite Ql (U) Negative Normal Negative [facility] Comment on above: Order Comment: Urina ry Catheter Insertion triggered Urinalysis With Culture Reflex order by discern. Performed By: #### 1 9830215, 5153729 ####[address] [address] pH (U) 5.5 [pH] Invalid Interpretation Code 5.0-9.0 [facility] Comment on above: Order Comment: Urina ry Catheter Insertion triggered Urinalysis With Culture Reflex order by discern. Performed By: #### 1 7300691, 0801302 ####[facility] [address] [place] [address] Protein (U) [Mass/Vol] 1+ Abnormal Negative [facility] Comment on above: Order Comment: Urina ry Catheter Insertion triggered Urinalysis With Culture Reflex order by discern. Performed By: #### 1 2418041, 7364160 ####[place] [address] Specific gravity (U) [Rel density] 1.015 Invalid Interpretation Code 1.005-1.030 [facility] Comment on above: Order Comment: Urina ry Catheter Insertion triggered Urinalysis With Culture Reflex order by discern. Performed By: #### 1 4296298, 2596105 ####[place] [address] Urobilinogen Qn (U) 0.2 {Isis'U}/dL Normal 0.0-1.0 [facility] Comment on above: Order Comment: Urina ry Catheter Insertion triggered Urinalysis With Culture Reflex order by discern. Performed By: #### 1 1254562, 6979557 ####[place] [address]457 WBC Auto Ql (U) 2+ Abnormal Negative [facility] Comment on above: Order Comment: Urina ry Catheter Insertion triggered Urinalysis With Culture Reflex order by discern. Performed By: #### 1 3906749, 6449258 ####[address] [address] WBC LM.HPF (Urine sed) [#/Area] /[HPF] Abnormal 0-5 [facility] Comment on above: Order Comment: Urina ry Catheter Insertion triggered Urinalysis With Culture Reflex order by discern. Performed By: #### 1 7144842, 1169797 ####[place] 4254457 Yeast LM Ql (Urine sed) 3+ Normal [facility] Comment on above: Order Comment: Urina ry Catheter Insertion triggered Urinalysis With Culture Reflex order by discern. Performed By: #### 1 7773071, 7305366 ####[place] [address]254457 URINALYSISOrdered By: Diony Benitez on 05-28-2023 Bacteria [...] PM) Normal Negative [facility] UA Auto SS [place].plasma/Lithi um.RBC (Bld) [Mass ratio] 0-3 /HPF Normal [...] [facility] UA Auto SS Urobilinogen Qn (U) 0.7318567 {Isis'U}/dL Normal 0.0 - 1.0 EU/dL [facility] [...] [Vol rate/Area] 26 mL/min/1.73 m2 Low >=59 [facility] Comment on above: Order Comment: Order added by Discern Expert. Result Comment: Patrol Conductor maxi kidney disease could be indicated at eGFR's of less than 60 mL/min/1.73m2. Kidney failure is indicated at less than 15 mL/min/1.73m2. Performed By: #### 2 439371, 79493917, 6932551, 4619987 ####[facility] [address] [place] [address] Auto Diffon 05-27-2023 Basophils/100 WBC (Bld) 0.3 % Normal 0.0-2.0 [facility] Comment on above: Order Comment: Order Added by Discern Expert. Performed By: #### 2 518759, 7177942, 74088457, 2774734 ####[facility] [address] [place] [address] Basophils/Leukocytes Auto (Bld) [Pure # fraction] 0.1 E9/L Normal 0.0-0.2 [facility] Comment on above: Order Comment: Order Added by Discern Expert. Performed By: #### 2 381780, 9510243, 98896509, 1424900 ####[place] [address] [place] [address] Eosinophils/100 WBC (Bld) 0.1 % Normal 0.0-8.0 [facility] Comment on above: Order Comment: Order Added by Discern Expert. Performed By: #### 2 858816, 3904168, 63994806, 0807737 ####[facility] [address] [place] [address] Eosinophils/Leukocyt es Auto (Bld) [Pure # fraction] 0.0 E9/L Normal 0.0-0.5 [facility] Comment on above: Order Comment: Order Added by Discern Expert. Performed By: #### 2 478813, 3192558, 97090453, 4870147 ####[address] [address] Lymphocytes/100 WBC (Bld) 4.0 % Low 14.0-50.0 [facility] Comment on above: Order Comment: Order Added by Discern Expert. Performed By: #### 2 806203, 4487581, 26122506, 6768816 ####[address] [address] Lymphocytes/Leukocyt es Auto (Bld) [Pure # fraction] 0.7 E9/L Low 1.0-4.0 [facility] Comment on above: Order Comment: Order Added by Discern Expert. Performed By: #### 2 219357, 2605226, 66150026, 4188619 ####[address] [address] Monocytes/100 WBC (Bld) 4.8 % Normal 4.0-14.0 [facility] Comment on above: Order Comment: Order Added by Discern Expert. Performed By: #### 2 357951, 4145056, 27348200, 3400888 ####[address] [address] Monocytes/Leukocytes Auto (Bld) [Pure # fraction] 0.8 E9/L Normal 0.2-1.0 [facility] Comment on above: Order Comment: Order Added by Discern Expert. Performed By: #### 2 408098, 9406485, 75704448, 5095724 ####[address] [address] Neutrophils/100 WBC (Bld) 90.8 % High 36.0-75.0 [facility] Comment on above: Order Comment: Order Added by Discern Expert. Performed By: #### 2 257872, 3436606, 30404726, 0163838 ####[facility] [address] [place] [address] Neutrophils/Leukocyt es Auto (Bld) [Pure # fraction] 15.7 E9/L High 2.0-7.5 [facility] Comment on above: Order Comment: Order Added by Discern Expert. Performed By: #### 2 573131, 5525724, 16819476, 0911282 ####[facility] [address] [place] [address] BMPon 05-27-2023 Anion gap [Moles/Vol] 10 mmol/L Normal 6-16 [facility] Comment on above: Performed By: #### 2 446051, 3282759, 91622303, 2814350 ####[place] [address] [place] [address] Calcium [Mass/Vol] 8.0 mg/dL Low 8.9-11.1 [facility] Comment on above: Performed By: #### 2 448257, 2100798, 79506145, 0416936 ####[facility] [address] [place] [address] Chloride [Moles/Vol] 112 mmol/L High 101-111 [facility] Comment on above: Performed By: #### 2 669298, 3467297, 64982723, 9792999 ####[facility] [address] [place] [address] CO2 [Moles/Vol] 22 mmol/L Normal 21-31 [facility] Comment on above: Performed By: #### 2 911074, 8620477, 07422136, 6945756 ####[facility] [address] [place] [address] Creatinine [Mass/Vol] 1.9 mg/dL High 0.5-1.3 [facility] Comment on above: Performed By: #### 2 568528, 0399266, 09577379, 2838930 ####[facility] [address] [place] [address] Glucose [Mass/Vol] 342 mg/dL High 55-199 [facility] Comment on above: Result Comment: If t his glucose result represents a fasting glucose, interpretation should refer to the following reference range: 55-99 mg/dL Performed By: #### 2 060938, 6810020, 71890826, 3282761 ####[facility] [address] [place] [address] Potassium [Moles/Vol] 4.3 mmol/L Normal 3.5-5.3 [facility] Comment on above: Performed By: #### 2 946355, 0811738, 36874038, 3258985 ####[facility] [address] [place] [address] Sodium [Moles/Vol] 140 mmol/L Normal 135-145 [facility] Comment on above: Performed By: #### 2 818094, 5439090, 41237206, 2753936 ####[facility] [address] [place] [address] Urea nitrogen [Mass/Vol] 22 mg/dL High 5-21 [facility] Comment on above: Performed By: #### 2 335864, 1419130, 98649134, 9329522 ####[facility] [address] [place] [address] Urea nitrogen/Creatinine [Mass ratio] 12 No Units Normal 10-20 [facility] Comment on above: Performed By: #### 2 539633, 5554026, 59238216, 9787444 ####[facility] [address] [place] [address] CBC w/ Auto Diffon 3 Erythrocyte distribution width (RBC) [Ratio] 13.6 % Normal 10.9-14.2 [facility] Comment on above: Performed By: #### 2 639748, 0975646, 95531092, 6054148 ####[facility] [address] [place] [address] Hematocrit (Bld) [Volume fraction] 38.9 % Normal 34.0-46.0 [facility] Comment on above: Performed By: #### 2 597967, 6429618, 12700702, 5254163 ####[facility] [address] [place] [address] Hemoglobin (Bld) [Mass/Vol] 13.0 g/dL Normal 12.0-16.0 [facility] Comment on above: Performed By: #### 2 736361, 4063542, 62393643, 7858579 ####[address] [address] MCH (RBC) [Entitic mass] 30.5 pg Normal 27.0-34.0 [facility] Comment on above: Performed By: #### 2 859758, 8397151, 25166165, 2272131 ####[address] [address] MCHC (RBC) [Mass/Vol] 33.4 g/dL Normal 31.4-36.0 [facility] Comment on above: Performed By: #### 2 474218, 0630558, 17759560, 6798711 ####[address] [address] MCV (RBC) [Entitic vol] 91.5 fL Normal 80.0-100.0 [facility] Comment on above: Performed By: #### 2 968180, 8992182, 08635345, 9310959 ####[address] [address] Platelet mean volume (Bld) [Entitic vol] 7.5 fL Normal 6.4-10.8 [facility] Comment on above: Performed By: #### 2 520462, 4758956, 09009354, 5282065 ####[address] [address] Platelets (Bld) [#/Vol] 181.0 E9/L Normal 150.0-500.0 [facility] Comment on above: Performed By: #### 2 628596, 6594788, 02251200, 6576296 ####[facility] [address] [place] [address] RBC (Bld) [#/Vol] 4.2 E12/L Low 4.3-5.9 [facility] Comment on above: Performed By: #### 2 781817, 0590286, 47049349, 0394727 ####[facility] [address] [place] [address] WBC corrected for nucl RBC Auto (Bld) [#/Vol] 17.2 E9/L High 4.0-11.0 [facility] Comment on above: Result Comment: Slid e reviewed by Performed By: #### 2 411554, 8819842, 27335357, 4230628 ####[facility] [address] [place] [address] CT Abdomen/Pelvis w/o Contra ston 05-27-2023 CT Abdomen/Pelvis w/o Contrast Normal [facility] Capillary Glucose POCon 05-01 Glucose [Mass/Vol] 321 mg/dL High 55-99 [facility] Comment on above: Result Comment: [place] ANDRES Performed By: #### 2 97073361 ####[facility] [address] [place] [address] Glucose [Mass/Vol] 353 mg/dL High 55-99 [facility] Comment on above: Result Comment: Sheryl minda Meter Performed By: #### 2 63596400 ####[facility] [address] [place] [address] Glucose [Mass/Vol] 378 mg/dL High 55-99 [facility] Comment on above: Result Comment: [place] ANDRES Performed By: #### 2 37747899 ####[facility] [address] [place] [address] Glucose [Mass/Vol] 323 mg/dL High 55-99 [facility] Comment on above: Performed By: #### 2 05582247 ####[facility] [address] [place] [address] Glucose [Mass/Vol] 320 mg/dL High 55-99 [facility] Comment on above: Performed By: #### 2 74210747 ####[facility] [address] [place] [address] Consent for Procedure/Surger yon 05-27-2023 Consent for Procedure/Surgery [id number]#1 .00CD:127 Normal [facility] Consultation Noteon 05-27-20 Consultation Note Normal [facility] Comment on above: Result Comment: Elec tronically Signed By: Orestes JACQUES MD\.br\Date and Time Signed: 05/27/23 08:09 EDT ED Note-Physicianon 05-27-20 ED Note-Physician Normal [facility] Comment on above: Result Comment: Elec [...] E12/L Low 4.3 - 5.9 E12/L [facility] HemeAutoSS WBC corrected for nucl RBC Auto (Bld) [#/Vol] 17.2 E9/L High 4.0 - 11.0 E9/L [facility] HemeAutoSS Comment on above: Result Comment: Slid e reviewed by HECTOR. Main OR PACU I Recordon 05-01 Main OR PACU I Record Normal [facility] Monitor Recordon 05-27-2023 Monitor Record [id number]# 1.00CD:127 Normal [facility] Monitor Record [id number]# 1.00CD:127 Normal [facility] Monitor Record [id number]# 1.00CD:127 Normal [facility] No Panel InformationOrdered By: Ramona Christie on 05-27-2023 Blood Culture Charcoal Anastacia albicans In 1 of 2 blood culture bottles drawn. Isolated from aerobic bottle Preliminary gram stain result of yeast Result called to Dr. Marx by [facility] and results read back for confirmation on 05/29/2023 12:23. [facility] No Panel InformationOrdered By: Nata Prieto on 05-27-2023 Blood Culture Charcoal Anastacia albicans isolated. In 1 of 1 blood culture bottles drawn. Isolated from pediatric bottle Preliminary gram stain result of yeast Result called to Dr. Marx by [facility] and results read back for confirmation on 05/29/2023 12:22:06 [facility] Operative Reporton Operative Report Normal [facility] Comment on above: Result Comment: Elec tronically Signed By: GEORGIE CHISHOLM, Orestes Muñiz\.br\Date and Time Signed: 05/27/23 08:13 EDT eGFRon 05-27-2023 GFR/1.73 sq M.predicted among non-blacks MDRD (S/P/Bld) [Vol rate/Area] 28 mL/min/1.73 m2 Low >=59 [facility] Comment on above: Order Comment: Order added by Discern Expert. Result Comment: Patrol Conductor maxi kidney disease could be indicated at eGFR's of less than 60 mL/min/1.73m2. Kidney failure is indicated at less than 15 mL/min/1.73m2. Performed By: #### 2 026873, 0022680, 61418573, 7587998 ####[facility] [address] [place] [address] Auto Diffon 05-26-2023 Basophils/100 WBC (Bld) 0.1 % Normal 0.0-2.0 [facility] Comment on above: Order Comment: Order Added by Discern Expert. Performed By: #### 2 021498, 75396334, 3848103, 2475541, 0932833, 3207430 ####[place] [address] [place] [address] Basophils/Leukocytes Auto (Bld) [Pure # fraction] 0.0 E9/L Normal 0.0-0.2 [facility] Comment on above: Order Comment: Order Added by Discern Expert. Performed By: #### 2 794189, 31342000, 0470780, 2916161, 4980438, 9093830 ####[address] [address] Eosinophils/100 WBC (Bld) 0.0 % Normal 0.0-8.0 [facility] Comment on above: Order Comment: Order Added by Discern Expert. Performed By: #### 2 867598, 92565940, 1159139, 7775920, 8953907, 0482201 ####[address] [address] Eosinophils/Leukocyt es Auto (Bld) [Pure # fraction] 0.0 E9/L Normal 0.0-0.5 [facility] Comment on above: Order Comment: Order Added by Discern Expert. Performed By: #### 2 966392, 17038846, 2268333, 4185767, 0764639, 0909895 ####[address] [address] Lymphocytes/100 WBC (Bld) 3.9 % Low 14.0-50.0 [facility] Comment on above: Order Comment: Order Added by Discern Expert. Performed By: #### 2 191012, 94277994, 2881081, 1456543, 5427644, 2943049 ####[address] [address] Lymphocytes/Leukocyt es Auto (Bld) [Pure # fraction] 0.7 E9/L Low 1.0-4.0 [facility] Comment on above: Order Comment: Order Added by Discern Expert. Performed By: #### 2 106207, 95249490, 8955100, 6901994, 2160245, 0103678 ####[address] [place] [address] Monocytes/100 WBC (Bld) 6.6 % Normal 4.0-14.0 [facility] Comment on above: Order Comment: Order Added by Discern Expert. Performed By: #### 2 335798, 48115877, 8350969, 0384591, 9254071, 6574092 ####[address] [address] Monocytes/Leukocytes Auto (Bld) [Pure # fraction] 1.2 E9/L High 0.2-1.0 [facility] Comment on above: Order Comment: Order Added by Christen Expert. Performed By: #### 2 097624, 58595004, 0646858, 6925843, 9791769, 8854038 ####[address] [address] Neutrophils/100 WBC (Bld) 89.4 % High 36.0-75.0 [facility] Comment on above: Order Comment: Order Added by Discern Expert. Performed By: #### 2 730449, 82707755, 8145263, 6063998, 2051296, 6923304 ####[address] [address] Neutrophils/Leukocyt es Auto (Bld) [Pure # fraction] 16.6 E9/L High 2.0-7.5 [facility] Comment on above: Order Comment: Order Added by Discern Expert. Performed By: #### 2 242757, 09818899, 0721306, 0002228, 3228729, 4243619 ####[facility] [address] [place] [address] BMPon 05-26-2023 Creatinine [Mass/Vol] 1.9 mg/dL High 0.5-1.3 [facility] Comment on above: Performed By: #### 2 623768, 52956417, 1865161, 8854321, 2323567, 7695691 ####[address] [address] Urea nitrogen [Mass/Vol] 19 mg/dL Normal 5-21 [facility] Comment on above: Performed By: #### 2 803204, 13224595, 2590873, 7774735, 4315648, 7087251 ####[facility] [address] [place] [address] Urea nitrogen/Creatinine [Mass ratio] 10 No Units Normal 10-20 [facility] Comment on above: Performed By: #### 2 939187, 04728720, 9266616, 4173345, 1598390, 1416732 ####[facility] [address] [place] [address] Anion gap [Moles/Vol] 13 mmol/L Normal 6-16 [facility] Comment on above: Performed By: #### 2 657555, 50150208, 2930153, 8623507, 9100195, 1455420 ####[facility] [address] [place] [address] Calcium [Mass/Vol] 8.9 mg/dL Normal 8.9-11.1 [facility] Comment on above: Performed By: #### 2 712300, 60616941, 7055729, 8574945, 3701000, 8130397 ####[facility] [address] [place] [address] Chloride [Moles/Vol] 106 mmol/L Normal 101-111 [facility] Comment on above: Performed By: #### 2 720607, 95648185, 5585745, 6329976, 9814718, 3543341 ####[facility] [address] [place] [address] CO2 [Moles/Vol] 25 mmol/L Normal 21-31 [facility] Comment on above: Performed By: #### 2 573117, 62449022, 3285798, 5465059, 5981516, 5788634 ####[facility] [address] [place] [address] Glucose [Mass/Vol] 342 mg/dL High 55-199 [facility] Comment on above: Result Comment: If t his glucose result represents a fasting glucose, interpretation should refer to the following reference range: 55-99 mg/dL Performed By: #### 2 461577, 32827149, 6706586, 5857906, 2712073, 1834623 ####[facility] [address] [place] [address] Potassium [Moles/Vol] 3.9 mmol/L Normal 3.5-5.3 [facility] Comment on above: Performed By: #### 2 516876, 50917301, 9825933, 2581240, 3744230, 2597691 ####[facility] [address] [place] [address] Sodium [Moles/Vol] 140 mmol/L Normal 135-145 [facility] Comment on above: Performed By: #### 2 766172, 82624625, 1158093, 2425613, 9573859, 4104741 ####[address] [address] CBC w/ Auto Diffon 3 Erythrocyte distribution width (RBC) [Ratio] 13.6 % Normal 10.9-14.2 [facility] Comment on above: Performed By: #### 2 330168, 09013214, 9086707, 1319394, 0997787, 4780925 ####[place] [place] [address] Hematocrit (Bld) [Volume fraction] 45.2 % Normal 34.0-46.0 [facility] Comment on above: Performed By: #### 2 292329, 60351112, 3573440, 4486858, 3982653, 6868823 ####[facility] [address] [place] [address] Hemoglobin (Bld) [Mass/Vol] 15.2 g/dL Normal 12.0-16.0 [facility] Comment on above: Performed By: #### 2 639905, 90500802, 4349830, 5982185, 6374677, 7387055 ####[place] [place] [address] MCH (RBC) [Entitic mass] 30.5 pg Normal 27.0-34.0 [facility] Comment on above: Performed By: #### 2 808950, 55940391, 9622998, 9864593, 4630700, 1844008 ####[address] [address] MCHC (RBC) [Mass/Vol] 33.7 g/dL Normal 31.4-36.0 [facility] Comment on above: Performed By: #### 2 045615, 61005361, 9702361, 5601151, 8478726, 1809365 ####[address] [address] MCV (RBC) [Entitic vol] 90.3 fL Normal 80.0-100.0 [facility] Comment on above: Performed By: #### 2 434072, 91811954, 9138722, 2997979, 5169885, 9727801 ####[address] [address] Platelet mean volume (Bld) [Entitic vol] 7.1 fL Normal 6.4-10.8 [facility] Comment on above: Performed By: #### 2 431345, 36218450, 9970049, 0163378, 9486252, 3247939 ####[address] [address] Platelets (Bld) [#/Vol] 256.0 E9/L Normal 150.0-500.0 [facility] Comment on above: Performed By: #### 2 702005, 65521089, 9996538, 2313603, 8083687, 8410638 ####[address] [address] RBC (Bld) [#/Vol] 5.0 E12/L Normal 4.3-5.9 [facility] Comment on above: Performed By: #### 2 663372, 88086301, 3932180, 9480618, 5049295, 7188572 ####[facility] [address] [place] [address] WBC corrected for nucl RBC Auto (Bld) [#/Vol] 18.6 E9/L High 4.0-11.0 [facility] Comment on above: Result Comment: Slid e reviewed by MA Performed By: #### 2 743375, 06183014, 2811479, 3010880, 3071290, 8105939 ####[facility] [address] [place] [address] CHEMISTRYOrdered By: SYSTEM SYSTEM on 05-26-2023 Troponin [...] Sensitivity Troponin I Instructions For Use, Jairo Ellsworth, March 2018) Albumin [Mass/Vol] 3.3 g/dL Normal [...] 4.1 g/dL High 1.4 - 4.0 gm/dL [facility] [place] Remisol Lipase [Catalytic activity/Vol] 33 U/L Normal 13 - 58 unit/L FT Remisol Protein [Mass/Vol] 7.4 g/dL Normal 6.0 - 7.8 gm/dL F TM Remisol Consent for Treatmenton 05-01 Consent for Treatment [id number] .00CD:127 Normal [facility] DAPTOMYCIN:SUSC:PT:ISOLATE:O RDQN:MICOrdered By: Nata Prieto on 05-26-2023 DAPTOmycin LAUREN [Sus] 20,000 cfu/ml Staphylococcus haemolyticus 2,000 cfu/ml Mixed skin contaminants [facility] DAPTOmycin LAUREN [Susc]Ordered By: Nata Prieto on 05-26-2023 Staphylococcus haemolyticus Staphylococcus haemolyticus [facility] Hep Func Panelon 05-26-2023 Albumin [Mass/Vol] 3.3 g/dL Normal 3.3-5.0 [facility] Comment on above: Performed By: #### 2 604719, 95120414, 4076644, 4139892, 0330071, 9644964 ####[facility] [address] [place] [address] Albumin/Globulin (S) [Mass conc ratio] 0.8 Low 1.1-2.2 [facility] Comment on above: Performed By: #### 2 018963, 45026334, 8422073, 6889186, 8333870, 1916030 ####[facility] [address] [place] [address] ALP [Catalytic activity/Vol] 72 Int._Unit/L Normal 21-98 [facility] Comment on above: Performed By: #### 2 257190, 58216493, 9209947, 9198897, 5039690, 1462569 ####[facility] [address] [place] [address] ALT No additional P-5'-P [Catalytic activity/Vol] 16 Int._Unit/L Normal 6-46 [facility] Comment on above: Performed By: #### 2 798337, 99510336, 5736411, 2194202, 9058209, 9724345 ####[facility] [address] [place] [address] AST [Catalytic activity/Vol] 16 Int._Unit/L Normal 5-43 [facility] Comment on above: Performed By: #### 2 303431, 50862352, 4864817, 3736400, 0777537, 6861134 ####[facility] [address] [place] [address] Bilirubin [Mass/Vol] 1.3 mg/dL High 0.0-1.1 [facility] Comment on above: Performed By: #### 2 844654, 45245315, 1906776, 1542911, 0450291, 2672209 ####[place] [address] Bilirubin.direct [Mass/Vol] 0.2 mg/dL Normal 0.1-0.4 [facility] Comment on above: Performed By: #### 2 712914, 62918887, 9751469, 7317862, 2690149, 8291450 ####[facility] [address] [place] [address] Bilirubin.indirect [Mass or moles/Vol] 1.1 mg/dL High 0.1-0.9 [facility] Comment on above: Performed By: #### 2 226169, 52763605, 7700046, 5174669, 0966361, 7891607 ####[facility] [address] [place] [address] Globulin (S) [Mass/Vol] 4.1 g/dL High 1.4-4.0 [facility] Comment on above: Performed By: #### 2 709050, 00556844, 3521138, 4121955, 2521698, 0865999 ####[facility] [address] [place] [address] Protein [Mass/Vol] 7.4 g/dL Normal 6.0-7.8 [facility] Comment on above: Performed By: #### 2 313732, 69233863, 2500708, 4015048, 3862103, 1146230 ####[facility] [address] [place] [address] Lipase Levelon 05-26-2023 Lipase [Catalytic activity/Vol] 33 U/L Normal 13-58 [facility] Comment on above: Performed By: #### 2 742582, 82273268, 9121330, 4290701, 0520480, 9019997 ####[facility] [address] [place] [address] RAD - Preliminary Cat Scan R eporton 05-26-2023 RAD - Preliminary Cat Scan Report [id number]# 1.00CD:127 Normal [facility] Troponin 0 Hr.on 05-26-2023 Troponin I.cardiac [Mass/Vol] 20.40 pg/mL Normal 10.10-27.10 [facility] Comment on above: Result Comment: The 95% CI (Confidence Interval) PPV (Positive Predictive Value) for myocardial infarction in females is 38 pg/mL, in males 51 pg/mL. The results should be used in conjunction with clinical conditions of myocardial infarction.(Access High Sensitivity Troponin I Instructions For Use, Jairo Elsy, March 2018) Performed By: #### 1 [id number] ####[facility] [address] [place] [address] UA With Cult Reflexon 2022 Bacteria LM Ql (Urine sed) 1+ /HPF Abnormal Trace [facility] Comment on above: Performed By: #### 1 9221271, 7998146 ####[facility] [address] [place] [address] Bilirubin Ql (U) Negative Normal Negative [facility] Comment on above: Performed By: #### 1 8378091, 3717767 ####[facility] [address] [place] [address] Clarity (U) CLOUDY Abnormal Clear [facility] Comment on above: Performed By: #### 1 0911344, 7973153 ####[facility] [address] [place] [address] Color (U) YELLOW Normal Yellow [facility] Comment on above: Performed By: #### 1 8823608, 9731372 ####[facility] [address] [place] [address] Epithelial cells.squamous LM.HPF (Urine sed) [#/Area] /[HPF] Normal 0-2 [facility] Comment on above: Performed By: #### 1 7667047, 9974753 ####[facility] [address] [place] [address] Glucose Test strip (U) [Mass/Vol] 3+ Abnormal Negative [facility] Comment on above: Performed By: #### 1 2143434, 7600630 ####[address] [address] Hemoglobin Ql (U) 2+ Abnormal Negative [facility] Comment on above: Performed By: #### 1 3658472, 9595417 ####[facility] [address] [place] [address] Ketones (U) [Mass/Vol] 1+ Abnormal Negative [facility] Comment on above: Performed By: #### 1 6673498, 3643105 ####[address] [address] [place].plasma/Lithi um.RBC (Bld) [Mass ratio] 4-20 Normal 0-3 [facility] Comment on above: Performed By: #### 1 7902920, 5403458 ####[facility] [address] [place] [address] Nitrite Ql (U) Positive Abnormal Negative [facility] Comment on above: Performed By: #### 1 0163880, 7919279 ####[facility] [address] [place] [address] pH (U) 5.5 [pH] Invalid Interpretation Code 5.0-9.0 [facility] Comment on above: Performed By: #### 1 3651231, 6931020 ####[place] 4[address]457 Protein (U) [Mass/Vol] 1+ Abnormal Negative [facility] Comment on above: Performed By: #### 1 3104959, 9759121 ####[place] 4254457 Specific gravity (U) [Rel density] 1.020 Invalid Interpretation Code 1.005-1.030 [facility] Comment on above: Performed By: #### 1 7994345, 4815504 ####[place] [address] Type of Urine collection method Clean Catch Normal [facility] Comment on above: Performed By: #### 1 9408213, 1906008 ####[place] [address] Urobilinogen Qn (U) 1.0 {Isis'U}/dL Normal 0.0-1.0 [facility] Comment on above: Performed By: #### 1 9821162, 2105091 ####[place] [address] WBC Auto Ql (U) 2+ Abnormal Negative [facility] Comment on above: Performed By: #### 1 9918441, 4678056 ####[place] 4254457 WBC LM.HPF (Urine sed) [#/Area] /[HPF] Abnormal 0-5 [facility] Comment on above: Performed By: #### 1 1065361, 7583373 ####[place] 4254457 URINALYSISOrdered By: Ike Lopez on 05-26-2023 Bacteria LM Ql (Urine sed) 1+ /HPF Invalid Interpretation Code Trace/HPF [facility] UA Auto SS Bilirubin Ql (U) Negative (05/26/23 11:08 PM) Normal Negative [facility] UA Auto SS Clarity (U) Cloudy *ABN* [...] Interpretation Code Negative [facility] UA Auto SS [place].plasma/Lithi um.RBC (Bld) [Mass ratio] 4-20 /HPF Normal [...] [facility] UA Auto SS Urobilinogen Qn (U) 1.8692151 {Isis'U}/dL Normal 0.0 - 1.0 EU/dL [facility] UA Auto SS WBC Auto Ql (U) 2+ *ABN* (05/26/23 11:08 PM) Invalid Interpretation Code Negative [facility] UA Auto SS WBC LM.HPF (Urine sed) [#/Area] /[HPF] Invalid Interpretation Code 0-5/HPF [facility] UA Auto SS eGFRon 05-26-2023 GFR/1.73 sq M.predicted among non-blacks MDRD (S/P/Bld) [Vol rate/Area] 28 mL/min/1.73 m2 Low >=59 [facility] Comment on above: Order Comment: Order added by Discern Expert. Result Comment: Patrol Conductor maxi kidney disease could be indicated at eGFR's of less than 60 mL/min/1.73m2. Kidney failure is indicated at less than 15 mL/min/1.73m2. Performed By: #### 2 401132, 79087097, 9812742, 5821005, 6120187, 4696524 ####[facility] [address] [place] [address] Consent for Procedure/Surger yon 05-25-2023 Consent for Procedure/Surgery [id number]#1 .00CD:127 Normal [facility] Consent for Treatmenton 05-01 Consent for Treatment [id number]#1 .00CD:127 Normal [facility] IntraOperative Documentson 0 05-25-2023 IntraOperative Documents [id number]# 1.00CD:127 Normal [facility] IntraOperative Documents [id number]#1 .00CD:127 Normal [facility] Main OR Intraoperative Recor don 05-25-2023 Main OR Intraoperative Record Normal [facility] Main OR Preoperative Recordo n 05-25-2023 Main OR Preoperative Record Normal [facility] Operative Reporton Operative Report Normal [facility] Comment on above: Result Comment: Elec tronically Signed By: JAILENE CHISHOLM, Glynn Neff.br\Date and Time Signed: 05/25/23 09:22 EDT Outpatient Surgery Discharge Instructionon 05-25-2023 Outpatient Surgery Discharge Instruction [id number]#1 .00CD:127 Normal [facility] Patient Educationon 05-25-20 23 Patient Education Normal [facility] Calculus Analysison 05-17-20 Color (Stone) Cecil Invalid Interpretation Code [facility] Comment on above: Order Comment: Stone calculi from left ureter for analysis Performed By: #### 1 9613989 ####[facility] [address] [place] [address] Composition Comment Invalid Interpretation Code [facility] Comment on above: Order Comment: Stone calculi from left ureter for analysis Result Comment: Perc entage (Represents the % composition) Performed By: #### 1 4102221 ####[address] [address] Disclaimer: Comment Invalid Interpretation Code [facility] Comment on above: Order Comment: Stone calculi from left ureter for analysis Result Comment: This test was developed and its performance characteristicsdetermined by [employer]. It has not been cleared or approvedby the Food and Drug Administration.Performed at: [address] [id number] PhD Srini Bell Performed By: #### 1 8948601 ####[facility] [address] [place] [address] Laboratory comment Hu (Report) Comment Invalid Interpretation Code [facility] Comment on above: Order Comment: Stone calculi from left ureter for analysis Result Comment: Nicolas arora questions regarding Calculi Analysis [facility] at: [phone]. Performed By: #### 1 7624267 ####[place] [address] [place] [address] Please Note: Comment Invalid Interpretation Code [facility] Comment on above: Order Comment: Stone calculi from left ureter for analysis Result Comment: Calc bernard report will follow via computer, mail or courierdelivery. Performed By: #### 1 0485634 ####[facility] [address] [place] [address] Size (Stone) [Entitic vol] 3x2 Invalid Interpretation Code [facility] Comment on above: Order Comment: Stone calculi from left ureter for analysis Result Comment: Mult iple pieces received. Dimensions of the largest piecereported. Performed By: #### 1 4790034 ####[facility] [address] [place] [address] Specimen source subject Nom Comment Invalid Interpretation Code [facility] Comment on above: Order Comment: Stone calculi from left ureter for analysis Result Comment: Left Ureter Performed By: #### 1 8248194 ####[facility] [address] [place] [address] Stone Photo Comment Invalid Interpretation Code [facility] Comment on above: Order Comment: Stone calculi from left ureter for analysis Result Comment: Phot ograph will follow under a separate cover Performed By: #### 1 5674248 ####[facility] [address] [place] [address] Urate (Stone) [Mass fraction] 100 % Invalid Interpretation Code [facility] Comment on above: Order Comment: Stone calculi from left ureter for analysis Performed By: #### 1 8515852 ####[facility] [address] [place] [address] Weight (Stone) 40 mg Invalid Interpretation Code [facility] Comment on above: Order Comment: Stone calculi from left ureter for analysis Performed By: #### 1 9624230 ####[facility] [address] [place] [address] Main OR Intraoperative Recor don 05-12-2023 Main OR Intraoperative Record Normal [facility] Auto Diffon 05-11-2023 Basophils/100 WBC (Bld) 0.2 % Normal 0.0-2.0 [facility] Comment on above: Order Comment: Order Added by Discern Expert. Performed By: #### 2 205600, 7379000 ####[facility] [address] [place] [address] Basophils/Leukocytes Auto (Bld) [Pure # fraction] 0.0 E9/L Normal 0.0-0.2 [facility] Comment on above: Order Comment: Order Added by Discern Expert. Performed By: #### 2 896127, 6478516 ####[facility] [address] [place] [address] Eosinophils/100 WBC (Bld) 0.1 % Normal 0.0-8.0 [facility] Comment on above: Order Comment: Order Added by Discern Expert. Performed By: #### 2 988970, 0963959 ####[address] [address] Eosinophils/Leukocyt es Auto (Bld) [Pure # fraction] 0.0 E9/L Normal 0.0-0.5 [facility] Comment on above: Order Comment: Order Added by Discern Expert. Performed By: #### 2 692582, 8497694 ####[address] [address] Lymphocytes/100 WBC (Bld) 10.0 % Low 14.0-50.0 [facility] Comment on above: Order Comment: Order Added by Christen Expert. Performed By: #### 2 525101, 3907164 ####[address] [address] Lymphocytes/Leukocyt es Auto (Bld) [Pure # fraction] 1.0 E9/L Normal 1.0-4.0 [facility] Comment on above: Order Comment: Order Added by Christen Expert. Performed By: #### 2 622324, 3289524 ####[address] [address] Monocytes/100 WBC (Bld) 5.6 % Normal 4.0-14.0 [facility] Comment on above: Order Comment: Order Added by Christen Expert. Performed By: #### 2 155948, 0477238 ####[address] [address] Monocytes/Leukocytes Auto (Bld) [Pure # fraction] 0.6 E9/L Normal 0.2-1.0 [facility] Comment on above: Order Comment: Order Added by Discern Expert. Performed By: #### 2 839456, 3442649 ####[address] [address] Neutrophils/100 WBC (Bld) 84.1 % High 36.0-75.0 [facility] Comment on above: Order Comment: Order Added by Discern Expert. Performed By: #### 2 599219, 8735799 ####[facility] [address] [place] [address] Neutrophils/Leukocyt es Auto (Bld) [Pure # fraction] 8.8 E9/L High 2.0-7.5 [facility] Comment on above: Order Comment: Order Added by Discern Expert. Performed By: #### 2 304012, 2465279 ####[place] [address] [place] [address] C Urineon 05-11-2023 Bacteria identified Cx Nom (U) Normal [facility] Comment on above: Performed By: #### 2 880459, 05140102 ####[address] [address] CBC w/ Auto Diffon Erythrocyte distribution width (RBC) [Ratio] 13.7 % Normal 10.9-14.2 [facility] Comment on above: Performed By: #### 2 784197, 4776418 ####[address] [address] Hematocrit (Bld) [Volume fraction] 37.9 % Normal 34.0-46.0 [facility] Comment on above: Performed By: #### 2 811358, 7275162 ####[address] [address] Hemoglobin (Bld) [Mass/Vol] 13.0 g/dL Normal 12.0-16.0 [facility] Comment on above: Performed By: #### 2 605786, 8661758 ####[address] [address] MCH (RBC) [Entitic mass] 31.8 pg Normal 27.0-34.0 [facility] Comment on above: Performed By: #### 2 286619, 5327363 ####[address] [address] MCHC (RBC) [Mass/Vol] 34.4 g/dL Normal 31.4-36.0 [facility] Comment on above: Performed By: #### 2 856625, 6988599 ####[address] [address] MCV (RBC) [Entitic vol] 92.5 fL Normal 80.0-100.0 [facility] Comment on above: Performed By: #### 2 836932, 0389926 ####[address] [address] Platelet mean volume (Bld) [Entitic vol] 8.2 fL Normal 6.4-10.8 [facility] Comment on above: Performed By: #### 2 945711, 0207229 ####[address] [address] Platelets (Bld) [#/Vol] 161.0 E9/L Normal 150.0-500.0 [facility] Comment on above: Performed By: #### 2 333628, 6024453 ####[address] [address] RBC (Bld) [#/Vol] 4.1 E12/L Low 4.3-5.9 [facility] Comment on above: Performed By: #### 2 843416, 7711267 ####[address] [address] WBC corrected for nucl RBC Auto (Bld) [#/Vol] 10.5 E9/L Normal 4.0-11.0 [facility] Comment on above: Performed By: #### 2 390072, 5410963 ####[address] [address] CHEMISTRYOrdered By: Lab ROP User on 05-11-2023 Glucose [Mass/Vol] 226 mg/dL High 55 - 99 mg/dL FT C POC Subsection Comment on above: Result Comment: Modesto vanegas RN/ POC Device SN [id number] Invalid Interpretation Code [facility] POC Subsection POC User ID [id number] Invalid Interpretation Code [facility] POC Subsection POC Username CORNELIA ZAMBRANO Invalid Interpretation Code [facility] POC Subsection Capillary Glucose POCon 04-30 Glucose [Mass/Vol] 226 mg/dL High 55-99 [facility] Comment on above: Result Comment: Modesto vanegas RN/ Performed By: #### 2 [id number] ####[facility] [address] [place] [address] Discharge Instructionson Discharge Instructions [id number]# 1.00CD:127 Normal [facility] Discharge Note-Nursingon Discharge Note-Nursing Normal [address] [place] [address]- \.br\ New Follow Up Appointments after Discharge\.br\ Follow Up with Glynn DENT When: 05/17/2023 01:30 PM EDT\.br\ Where:\.br\ [facility]\.br\ [address]\.br\ [place] [address]-\.br\ Business (1)\.br\ Follow Up with ALBERTINA ARNDT When: 05/17/2023 09:30 AM EDT\.br\ Where:\.br\ [address] [facility]\.br\ [facility] [place] [address]-\.br\ Business (1)\.br\ Medications\.br\ What How Much When Why Instructions Next Dose\.br\ Changed cephalexin (Keflex 500 mg Cap) 1 Capsules By Mouth 3 times a day Duration: 5 Days Pickup at [id number] 05-11-23 3 pm\.br\ Unchanged atorvastatin (atorvastatin 40 [...] Tablets By Mouth Every day Pickup at [facility] 05-12-23 9 am\.br\ Pharmacy Information\.br\ [facility]: [address] [place], [place] [id number] [phone]\.br\ [id number]: [address], [place] [id number] [phone]\.br\ Test Results\.br\ CBC \.br\ BMP \.br\ WBC: [...] artery disease\.br\ Glucosuria\.br\ Hyperlipidemia\. br\ Kidney stone\.br\ FPC current use of anticoagulant\.b r\ Obesity due to excess calories\.br\ Urge incontinence\.br \ Urinary tract infection\.br\ Historical - Any problem that you are no longer receiving treatment for.\.br\ Diabetes mellitus\.br\ Hypertension\.br \ Devices Implanted/Remove d This Visit\.br\ Notice: You have devices implanted this visit that may not be MRI compatible.\.br\ Implanted\.br\ CYSTOSCOPY W/ HOMIUM LASER\.br\ Ureter L\.br\ STENT URETERAL 6FR LENGTH 22-32CM [058900] 05/09/2023, Unknown - JOSE FRANCISCO: {01}[id number] 89{17}[id number]{10} [id number]\.br\ Common Emergency Awareness Tips\.br\ IS IT A [...] signed up for this yet, please contact [employer] at [phone] to get signed up today.\.br\ \.br\ Patient Name: SHAHANA GRACE\.br\ I have received this information and my questions have been answered.\.br\ Patient/Represen tative Name: ____\.br\ Patient/Represen tative Signature: ____\.br\ Relationship to Patient: ____\.br\ Witness Name/Signature: ____\.br\ Date: ____\.br\ [facility] HEMATOLOGYOrdered By: SYSTEM SYSTEM on 05-11-2023 Basophils/100 [...] 84.1 % High 36.0 - 75.0 % FT HemeAutoSS Neutrophils/Leukocyt es Auto (Bld) [Pure # fraction] 8.8 E9/L High 2.0 - 7.5 E9/L FT HemeAutoSS HEMATOLOGYOrdered By: Virginia Dillard on 05-11-2023 Erythrocyte distribution width (RBC) [Ratio] 13.7 % Normal 10.9 - 14.2 % FT HemeAutoSS Hematocrit (Bld) [Volume fraction] 37.9 % Normal 34.0 - 46.0 % FT HemeAutoSS Hemoglobin (Bld) [Mass/Vol] 13.0 g/dL Normal 12.0 - 16.0 gm/dL FT HemeAutoSS MCH (RBC) [Entitic mass] 31.8 pg Normal 27.0 - 34.0 pg FT HemeAutoSS MCHC (RBC) [Mass/Vol] 34.4 g/dL Normal 31.4 - 36.0 gm/dL FT HemeAutoSS MCV (RBC) [Entitic vol] 92.5 fL Normal 80.0 - 100.0 fL FT HemeAutoSS Platelet mean volume (Bld) [Entitic vol] 8.2 fL Normal 6.4 - 10.8 fL FT HemeAutoSS Platelets (Bld) [#/Vol] 161.0 E9/L Normal 150.0 - 500.0 E9/L FT HemeAutoSS RBC (Bld) [#/Vol] 4.1 E12/L Low 4.3 - 5.9 E12/L FT HemeAutoSS WBC corrected for nucl RBC Auto (Bld) [#/Vol] 10.5 E9/L Normal 4.0 - 11.0 E9/L FT HemeAutoSS Inpatient Clinical Summaryon 05-11-2023 Inpatient Clinical Summary Normal [facility] Inpatient Patient Summaryon 05-11-2023 Inpatient Patient Summary Normal [facility] Message from Medicareon 04-30 Message from Medicare [id number]# 1.00CD:127 Normal [facility] Monitor Recordon 05-11-2023 Monitor Record [id number] 1.00CD:127 Normal [facility] Monitor Record [id number] 1.00CD:127 Normal [facility] Monitor Record [id number]# 1.00CD:127 Normal [facility] Auto Diffon 05-10-2023 Basophils/100 WBC (Bld) 0.1 % Normal 0.0-2.0 [facility] Comment on above: Order Comment: Order Added by Discern Expert. Performed By: #### 2 728372, 3370590, 6348350, 99740995 ####[place] [address] [place] [address] Basophils/Leukocytes Auto (Bld) [Pure # fraction] 0.0 E9/L Normal 0.0-0.2 [facility] Comment on above: Order Comment: Order Added by Discern Expert. Performed By: #### 2 721253, 6446655, 0852879, 80135908 ####[address] [address] Eosinophils/100 WBC (Bld) 0.0 % Normal 0.0-8.0 [facility] Comment on above: Order Comment: Order Added by Discern Expert. Performed By: #### 2 847149, 9912115, 5531622, 08441246 ####[place] [place] [address] Eosinophils/Leukocyt es Auto (Bld) [Pure # fraction] 0.0 E9/L Normal 0.0-0.5 [facility] Comment on above: Order Comment: Order Added by Discern Expert. Performed By: #### 2 968686, 8731993, 5080099, 37562445 ####[address] [place] [address] Lymphocytes/100 WBC (Bld) 6.5 % Low 14.0-50.0 [facility] Comment on above: Order Comment: Order Added by Discern Expert. Performed By: #### 2 849558, 0067330, 9972546, 25161001 ####[facility] [address] [place] [address] Lymphocytes/Leukocyt es Auto (Bld) [Pure # fraction] 1.1 E9/L Normal 1.0-4.0 [facility] Comment on above: Order Comment: Order Added by Discern Expert. Performed By: #### 2 949887, 9075557, 2960378, 50553625 ####[facility] [address] [place] [address] Monocytes/100 WBC (Bld) 4.2 % Normal 4.0-14.0 [facility] Comment on above: Order Comment: Order Added by Christen Expert. Performed By: #### 2 832216, 3396006, 2359347, 06119208 ####[address] [address] Monocytes/Leukocytes Auto (Bld) [Pure # fraction] 0.7 E9/L Normal 0.2-1.0 [facility] Comment on above: Order Comment: Order Added by Christen Expert. Performed By: #### 2 649634, 6390587, 5387937, 11360693 ####[address] [address] Neutrophils/100 WBC (Bld) 89.2 % High 36.0-75.0 [facility] Comment on above: Order Comment: Order Added by Christen Expert. Performed By: #### 2 069199, 3186876, 6704831, 57425751 ####[address] [place] [address] Neutrophils/Leukocyt es Auto (Bld) [Pure # fraction] 14.7 E9/L High 2.0-7.5 [facility] Comment on above: Order Comment: Order Added by Christen Expert. Performed By: #### 2 413239, 0326751, 7255435, 65857884 ####[address] [place] [address] BMPon 05-10-2023 Creatinine [Mass/Vol] 1.4 mg/dL High 0.5-1.3 [facility] Comment on above: Performed By: #### 2 961129, 9663858, 6624159, 15391482 ####[facility] [address] [place] [address] Urea nitrogen [Mass/Vol] 30 mg/dL High 5-21 [facility] Comment on above: Performed By: #### 2 419640, 3089038, 8525422, 32619300 ####[facility] [address] [place] [address] Urea nitrogen/Creatinine [Mass ratio] 21 No Units High 10-20 [facility] Comment on above: Performed By: #### 2 650128, 4997417, 0139001, 73198967 ####[facility] [address] [place] [address] Anion gap [Moles/Vol] 12 mmol/L Normal 6-16 [facility] [facility] Comment on above: Performed By: #### 2 250194, 0500023, 9739600, 39381703 ####[facility] [address] [place] [address] Calcium [Mass/Vol] 8.3 mg/dL Low 8.9-11.1 [facility] Comment on above: Performed By: #### 2 261094, 2979037, 1229413, 32155754 ####[facility] [address] [place] [address] Chloride [Moles/Vol] 111 mmol/L Normal 101-111 [facility] Comment on above: Performed By: #### 2 248946, 5754365, 4366058, 13160860 ####[facility] [address] [place] [address] CO2 [Moles/Vol] 22 mmol/L Normal 21-31 [facility] Comment on above: Performed By: #### 2 682430, 5478374, 2385657, 27619184 ####[facility] [address] [place] [address] Glucose [Mass/Vol] 256 mg/dL High 55-199 [facility] Comment on above: Result Comment: If t his glucose result represents a fasting glucose, interpretation should refer to the following reference range: 55-99 mg/dL Performed By: #### 2 062376, 5315086, 5526278, 15825419 ####[facility] [address] [place] [address] Potassium [Moles/Vol] 3.7 mmol/L Normal 3.5-5.3 [facility] Comment on above: Performed By: #### 2 549276, 1787453, 0313106, 44738773 ####[facility] [address] [place] [address] Sodium [Moles/Vol] 141 mmol/L Normal 135-145 [facility] Comment on above: Performed By: #### 2 807829, 4249336, 4453932, 38325981 ####[facility] [address] [place] [address] CBC w/ Auto Diffon 3 Erythrocyte distribution width (RBC) [Ratio] 13.8 % Normal 10.9-14.2 [facility] Comment on above: Performed By: #### 2 389546, 1836494, 4031938, 47238654 ####[facility] [address] [place] [address] Hematocrit (Bld) [Volume fraction] 41.7 % Normal 34.0-46.0 [facility] Comment on above: Performed By: #### 2 081356, 8491449, 9053655, 79095512 ####[facility] [address] [place] [address] Hemoglobin (Bld) [Mass/Vol] 14.4 g/dL Normal 12.0-16.0 [facility] Comment on above: Performed By: #### 2 610591, 4000052, 6451593, 88153163 ####[facility] [address] [place] [address] MCH (RBC) [Entitic mass] 31.1 pg Normal 27.0-34.0 [facility] Comment on above: Performed By: #### 2 494339, 8868034, 9789286, 42335103 ####[address] [address] MCHC (RBC) [Mass/Vol] 34.4 g/dL Normal 31.4-36.0 [facility] Comment on above: Performed By: #### 2 124169, 0534475, 1422668, 65725936 ####[address] [address] MCV (RBC) [Entitic vol] 90.2 fL Normal 80.0-100.0 [facility] Comment on above: Performed By: #### 2 065101, 4381585, 6748804, 06651463 ####[address] [address] Platelet mean volume (Bld) [Entitic vol] 7.8 fL Normal 6.4-10.8 [facility] Comment on above: Performed By: #### 2 662556, 2037546, 4139987, 67958899 ####[address] [address] Platelets (Bld) [#/Vol] 171.0 E9/L Normal 150.0-500.0 [facility] Comment on above: Performed By: #### 2 380065, 0488180, 4318113, 30131125 ####[address] [address] RBC (Bld) [#/Vol] 4.6 E12/L Normal 4.3-5.9 [facility] Comment on above: Performed By: #### 2 952868, 5620667, 0132160, 26243195 ####[address] [address] WBC corrected for nucl RBC Auto (Bld) [#/Vol] 16.5 E9/L High 4.0-11.0 [facility] Comment on above: Result Comment: Leidy e reviewed by TLP. Performed By: #### 2 762641, 2382969, 1105305, 17719680 ####[facility] [address] [place] [address] CHEMISTRYOrdered By: Lab ROP User on 05-10-2023 Glucose [Mass/Vol] 336 mg/dL High 55 - 99 mg/dL FTM C POC Subsection Comment on above: Result Comment: [place] ANDRES POC Device SN [id number] Invalid Interpretation Code FT POC Subsection POC User ID [id number] Invalid Interpretation Code [facility] POC Subsection POC Username FREDDIE GUY Invalid Interpretation Code [facility] POC Subsection Glucose [Mass/Vol] 299 mg/dL High 55 - 99 mg/dL FTM C POC Subsection Comment on above: Result Comment: Modesto vanegas RN/ Cleaned Meter POC Device SN [id number] Invalid Interpretation Code [facility] POC Subsection POC User ID [id number] Invalid Interpretation Code [facility] POC Subsection POC Username MAURICE POST Invalid Interpretation Code [facility] POC Subsection CHEMISTRYOrdered By: SYSTEM SYSTEM on 05-10-2023 Anion gap [Moles/Vol] 12 mmol/L Normal 6 - 16 mEq/L [facility] Remisol Calcium [Mass/Vol] 8.3 mg/dL Low 8.9 - 11.1 mg/dL [facility] Remisol Chloride [Moles/Vol] 111 mmol/L Normal 101 - 111 mmol/ L [facility] Remisol CO2 [Moles/Vol] 22 mmol/L Normal 21 - 31 mmol/L [facility] Remisol Creatinine [Mass/Vol] 1.4 mg/dL High 0.5 - 1.3 mg/dL [facility] Remisol GFR/1.73 sq M.predicted among non-blacks MDRD (S/P/Bld) [Vol rate/Area] 40 mL/min/1.73 m2 Low >=59mL/min/1.73 m2 [facility] Chem S Glucose [Mass/Vol] 256 mg/dL High 55 - 199 mg/dL FT Remisol Potassium [Moles/Vol] 3.7 mmol/L Normal 3.5 - 5.3 mmol/L [facility] Remisol Sodium [Moles/Vol] 141 mmol/L Normal 135 - 145 mmol/L [facility] Remisol Urea nitrogen [Mass/Vol] 30 mg/dL High 5 - 21 mg/dL [facility] Remisol Urea nitrogen/Creatinine [Mass ratio] 21 mg/mg High 10 - 20 [facility] Remisol Capillary Glucose POCon 04-30 Glucose [Mass/Vol] 336 mg/dL High 55-99 [facility] Comment on above: Result Comment: [place] vanegas RN/ Performed By: #### 2 [id number] ####[facility] [address] [place] [address] Glucose [Mass/Vol] 299 mg/dL High [address] [place] [address] Comment on above: Result Comment: [place] ZAMORAleaned Meter Performed By: #### 2 [id number] ####[facility] [address] [place] [address] Glucose [Mass/Vol] 314 mg/dL High [address] [place] [address] Comment on above: Result Comment: [place] ANDRES Performed By: #### 2 45836019 ####[facility] [address] [place] [address] Glucose [Mass/Vol] 249 mg/dL High [address] [place] [address] Comment on above: Result Comment: [place] ANDRES Performed By: #### 2 85264184 ####[facility] [address] [place] [address] Glucose [Mass/Vol] 247 mg/dL High [address] [place] [address] Comment on above: Result Comment: Modesto vanegas RN/ Performed By: #### 2 85599120 ####[facility] [address] [place] [address] Glucose [Mass/Vol] 302 mg/dL High [address] [place] [address] Comment on above: Result Comment: [place]esto vanegas RN/ Performed By: #### 2 01268625 ####[facility] [address] [place] [address] Consent for Anesthesiaon Consent for Anesthesia [id number]# 1.00CD:127 Normal [facility] Consent for Procedure/Surger yon 05-10-2023 Consent for Procedure/Surgery [id number]# 1.00CD:127 Normal [facility] HEMATOLOGYOrdered By: SYSTEM SYSTEM on 05-10-2023 Basophils/100 [...] Result Comment: [place] e reviewed by TLP. LraJ8dzg 05-10-2023 HbA1c (Bld) [Mass fraction] 10.1 % High <=5.9 [facility] Comment on above: Performed By: #### 7 [id number] ####[facility] [address] [place] [address] Insurance Correspondence Off iceon 05-10-2023 Insurance Correspondence Office [id number] .00CD:127 Normal [facility] Interdisciplinary Note - Galo e Manageron 05-10-2023 Interdisciplinary Note - Interdisciplinary Professor Normal [facility] Comment on above: Result Comment: Elec tronically Signed By: Rayne Carpenter\Date and Time Signed: 05/10/23 15:00 EDT Interdisciplinary Note - Arabella n 05-10-2023 Interdisciplinary Note - OT OT [facility] six clicks score 22/24 = no further OT needs. Patient was Ind w/ basic adls/transfers in her room. Dc inpatient OT services. Normal [facility] IntraOperative Documentson 0 05-10-2023 IntraOperative Documents [id number]# 1.00CD:127 Normal [facility] Monitor Recordon 05-10-2023 Monitor Record [id number]# 1.00CD:127 Normal [facility] Monitor Record [id number]# 1.00CD:127 Normal [facility] Progress Note-Physicianon Progress Note-Physician Normal [facility] Comment on above: Result Comment: Elec tronically Signed By: ROSEMARY CHISHOLM, Ck\.br\Date and Time Signed: 05/10/23 11:23 EDT XR Abdomen 1 Viewon 05-10-20 23 XR Abdomen 1 View Normal [facility] eGFRon 05-10-2023 GFR/1.73 sq M.predicted among non-blacks MDRD (S/P/Bld) [Vol rate/Area] 40 mL/min/1.73 m2 Low >=59 [facility] Comment on above: Order Comment: Order added by Discern Expert. Result Comment: Patrol Conductor maxi kidney disease could be indicated at eGFR's of less than 60 mL/min/1.73m2. Kidney failure is indicated at less than 15 mL/min/1.73m2. Performed By: #### 2 538084, 0892225, 9034019, 91870550 ####[facility] [address] [place] [address] Auto Diffon 05-09-2023 Basophils/100 WBC (Bld) 0.5 % Normal 0.0-2.0 [facility] Comment on above: Order Comment: Order Added by Discern Expert. Performed By: #### 1 0309770, 6460153, 31353953, 1621131, 0777933, 0365612, 1966499, 7460481, 52247298 ####[facility] [address] [place] [address] Basophils/Leukocytes Auto (Bld) [Pure # fraction] 0.1 E9/L Normal 0.0-0.2 [facility] Comment on above: Order Comment: Order Added by Christen Expert. Performed By: #### 1 1102044, 9866329, 04019017, 7993051, 2832733, 3292230, 1293531, 7554989, 79349553 ####[facility] [address] [place] [address] Eosinophils/100 WBC (Bld) 0.2 % Normal 0.0-8.0 [facility] Comment on above: Order Comment: Order Added by Discern Expert. Performed By: #### 1 5503006, 4858007, 04963447, 7696397, 0842147, 9317770, 7144145, 0287149, 38623645 ####[address] [place] [address] Eosinophils/Leukocyt es Auto (Bld) [Pure # fraction] 0.0 E9/L Normal 0.0-0.5 [facility] Comment on above: Order Comment: Order Added by Christen Expert. Performed By: #### 1 9710876, 2662982, 36116684, 6944321, 5800503, 7733211, 6141177, 9103493, 88679599 ####[address] [place] [address] Lymphocytes/100 WBC (Bld) 6.1 % Low 14.0-50.0 [facility] Comment on above: Order Comment: Order Added by Christen Expert. Performed By: #### 1 6572335, 7011508, 95755549, 9743298, 4597375, 2018461, 4896842, 2465463, 36349469 ####[address] [place] [address] Lymphocytes/Leukocyt es Auto (Bld) [Pure # fraction] 1.0 E9/L Normal 1.0-4.0 [facility] Comment on above: Order Comment: Order Added by Christen Expert. Performed By: #### 1 1981906, 6944243, 93263609, 8251263, 8322694, 4946729, 3716472, 8339065, 12798903 ####[facility] [address] [place] [address] Monocytes/100 WBC (Bld) 7.4 % Normal 4.0-14.0 [facility] Comment on above: Order Comment: Order Added by Discern Expert. Performed By: #### 1 6000194, 7299475, 69035098, 9094727, 0285835, 4145012, 0427419, 1636666, 88189655 ####[facility] [address] [place] [address] Monocytes/Leukocytes Auto (Bld) [Pure # fraction] 1.2 E9/L High 0.2-1.0 [facility] Comment on above: Order Comment: Order Added by Discern Expert. Performed By: #### 1 7888896, 0350902, 61025335, 2383459, 4354688, 7500634, 9377306, 5756831, 39950531 ####[facility] [address] [place] [address] Neutrophils/100 WBC (Bld) 85.8 % High 36.0-75.0 [facility] Comment on above: Order Comment: Order Added by Discern Expert. Performed By: #### 1 0049977, 3883716, 45230533, 7361825, 5473727, 3957867, 1794247, 1025946, 93847161 ####[facility] [address] [place] [address] Neutrophils/Leukocyt es Auto (Bld) [Pure # fraction] 13.6 E9/L High 2.0-7.5 [facility] Comment on above: Order Comment: Order Added by Discern Expert. Performed By: #### 1 2079493, 6294220, 03241695, 9740580, 3451671, 7313806, 5906154, 6636151, 34438993 ####[facility] [address] [place] [address] BMPon 05-09-2023 Creatinine [Mass/Vol] 1.6 mg/dL High 0.5-1.3 [facility] Comment on above: Performed By: #### 1 8454344, 9309934, 47244124, 6438196, 0630695, 7348527, 8089683, 9320722, 86693806 ####[facility] [address] [place] [address] Urea nitrogen [Mass/Vol] 23 mg/dL High 5-21 [facility] Comment on above: Performed By: #### 1 9861800, 6467486, 54894053, 7354666, 9169450, 6672982, 9064773, 0701928, 64763589 ####[facility] [address] [place] [address] Urea nitrogen/Creatinine [Mass ratio] 14 No Units Normal 10-20 [facility] Comment on above: Performed By: #### 1 0241355, 6152781, 16352615, 1239170, 1847538, 1805089, 0949321, 9441902, 77770868 ####[facility] [address] [place] [address] Anion gap [Moles/Vol] 10 mmol/L Normal 6-16 [facility] Comment on above: Performed By: #### 1 7632122, 1167607, 22227879, 8618855, 4227654, 6242672, 3354892, 9267217, 53539667 ####[facility] [address] [place] [address] Calcium [Mass/Vol] 9.0 mg/dL Normal 8.9-11.1 [facility] Comment on above: Performed By: #### 1 9191734, 9596059, 13539996, 2015363, 7358813, 4603655, 1694221, 1431554, 40146731 ####[facility] [address] [place] [address] Chloride [Moles/Vol] 111 mmol/L Normal 101-111 [facility] Comment on above: Performed By: #### 1 5482268, 1926080, 38871635, 8082205, 8438612, 2391376, 9987222, 0456582, 35602110 ####[facility] [address] [place] [address] CO2 [Moles/Vol] 24 mmol/L Normal 21-31 [facility] Comment on above: Performed By: #### 1 2189635, 8169679, 46078988, 6698321, 3340250, 1437292, 6522587, 4301286, 31235681 ####[facility] [address] [place] [address] Glucose [Mass/Vol] 419 mg/dL High 55-199 [facility] Comment on above: Result Comment: If t his glucose result represents a fasting glucose, interpretation should refer to the following reference range: 55-99 mg/dL Performed By: #### 1 2334027, 5975840, 34798049, 0072375, 1581308, 3531937, 9692609, 9870997, 35414237 ####[facility] [address] [place] [address] Potassium [Moles/Vol] 4.0 mmol/L Normal 3.5-5.3 [facility] Comment on above: Performed By: #### 1 7077853, 3954033, 39909392, 6284123, 7227082, 4109151, 5738402, 1721063, 71280770 ####[facility] [address] [place] [address] Sodium [Moles/Vol] 141 mmol/L Normal 135-145 [facility] Comment on above: Performed By: #### 1 7838890, 9426831, 66862179, 7592135, 5107605, 6456848, 5254408, 6064224, 99328191 ####[facility] [address] [place] [address] CBC w/ Auto Diffon 3 Erythrocyte distribution width (RBC) [Ratio] 13.8 % Normal 10.9-14.2 [facility] Comment on above: Performed By: #### 1 3337619, 8839753, 08073297, 6143488, 5923017, 1030198, 3643336, 2987623, 21298525 ####[address] [place] [address] Hematocrit (Bld) [Volume fraction] 46.4 % High 34.0-46.0 [facility] Comment on above: Performed By: #### 1 3244387, 8121044, 70484105, 8806376, 1821280, 5668945, 6296985, 1769281, 26955397 ####[address] [address] Hemoglobin (Bld) [Mass/Vol] 16.0 g/dL Normal 12.0-16.0 [facility] Comment on above: Performed By: #### 1 1526784, 7596718, 39786924, 8055377, 9182793, 4324854, 5993878, 5155663, 76240296 ####[address] MCH (RBC) [Entitic mass] 31.1 pg Normal 27.0-34.0 [facility] Comment on above: Performed By: #### 1 0307127, 7570595, 55314074, 5885370, 7023128, 9065640, 9186084, 5494845, 86647627 ####[address] [address] MCHC (RBC) [Mass/Vol] 34.4 g/dL Normal 31.4-36.0 [facility] Comment on above: Performed By: #### 1 9895601, 2708956, 63590316, 3395348, 3961237, 4998273, 9446177, 9618196, 33496204 ####[address] [address] MCV (RBC) [Entitic vol] 90.4 fL Normal 80.0-100.0 [facility] Comment on above: Performed By: #### 1 7806801, 7814632, 30302809, 0754881, 1607978, 2820449, 7932930, 2020657, 55486529 ####[facility] [address] [place] [address] Platelet mean volume (Bld) [Entitic vol] 7.6 fL Normal 6.4-10.8 [facility] Comment on above: Performed By: #### 1 7363804, 6837437, 03586268, 7753056, 3520793, 7516478, 0970288, 2373831, 26114566 ####[facility] [address] [place] [address] Platelets (Bld) [#/Vol] 181.0 E9/L Normal 150.0-500.0 [facility] Comment on above: Performed By: #### 1 5147408, 4875497, 06185752, 9459135, 3154895, 5331199, 2773060, 9436690, 24685816 ####[facility] [address] [place] [address] RBC (Bld) [#/Vol] 5.1 E12/L Normal 4.3-5.9 [facility] Comment on above: Performed By: #### 1 4326145, 5127457, 51889260, 3144165, 4850112, 6849761, 9898167, 5496355, 73727692 ####[facility] [address] [place] [address] WBC corrected for nucl RBC Auto (Bld) [#/Vol] 15.9 E9/L High 4.0-11.0 [facility] Comment on above: Performed By: #### 1 2927402, 2120333, 78533215, 7996857, 1074574, 9223784, 7674724, 5604981, 37022462 ####[facility] [address] [place] [address] CHEMISTRYOrdered By: SYSTEM SYSTEM on 05-09-2023 Glucose [Mass/Vol] 460 mg/dL Invalid Interpretation Code 55 - 199 mg/dL [facility] Comment on above: Result Comment: Crit ical Result verified by repeat analysis\Critical Result [id number] Called to [facility] AT [facility]S by SHELLY FERNANDO And [...] 419 mg/dL High 55 - 199 mg/dL [facility] Remisol Lactate [Mass/Vol] 1.8 mmol/L Normal 0.5 - 2.2 mmol/L [facility] Remisol Lipase [Catalytic activity/Vol] 70 U/L High 13 - 58 unit/L [facility] Remisol Potassium [Moles/Vol] 4.0 mmol/L Normal 3.5 - 5.3 mmol/L [facility] Remisol Protein [Mass/Vol] 7.0 g/dL Normal 6.0 - 7.8 gm/dL [facility] Remisol Sodium [Moles/Vol] 141 mmol/L Normal 135 - 145 mmol/L [facility] Remisol Troponin I.cardiac [Mass/Vol] 15.10 pg/mL Normal 10.10 - 27.10 pg/mL [facility] Remisol Urea nitrogen [Mass/Vol] 23 mg/dL High 5 - 21 mg/dL [facility] Remisol Urea nitrogen/Creatinine [Mass ratio] 14 mg/mg Normal 10 - 20 [facility] Remisol CHEMISTRYOrdered By: Nayely Dawkins on 05-09-2023 HbA1c (Bld) [Mass fraction] 10.1 % High <=5.9% [facility] ChemAutoSS COAGULATIONOrdered By: Claudio Jones on 05-09-2023 aPTT Coag (PPP) [Time] 23.7 s Low 25.1 - 36.5 second(s) [facility] Auto Coag INR Coag (PPP) [Relative time] 0.9 {INR} Invalid Interpretation Code [facility] Auto Coag PT Coag (PPP) [Time] 10.0 s Normal 9.4 - 1 2.5 second(s) [facility] Auto Coag CT Abdomen/Pelvis w/o Contra ston 05-09-2023 CT Abdomen/Pelvis w/o Contrast Normal [facility] Capillary Glucose POCon 04-30 Glucose [Mass/Vol] 495 mg/dL Abnormal 55- [facility] Comment on above: Result Comment: [place] vanegas RN/ Performed By: #### 2 [id number] ####[facility] [address] [place] [address] Glucose Cap >500 Abnormal 55- [facility] Comment on above: Result Comment: [place] ANDRES Performed By: #### 2 [id number] ####[facility] [address] [place] [address] Glucose [Mass/Vol] 434 mg/dL High 55-99 [facility] Comment on above: Result Comment: [place] ANDRES Performed By: #### 2 15986454 ####[facility] [address] [place] [address] Consent for Treatmenton 04-30 Consent for Treatment [id number] .00CD:127 Normal [facility] Consultation Noteon 05-09-20 Consultation Note Normal [facility] Comment on above: Result Comment: Elec tronically Signed By: JAILENE CHISHOLM, Glynn Mcdermott\.br\Date and Time Signed: 05/09/23 14:07 EDT ED Clinical Summaryon 2022 ED Clinical Summary Normal [facility] ED Note-Physicianon 05-09-20 ED Note-Physician Normal [facility] Comment on above: Result Comment: Elec tronically Signed By: Lazara Larios PA-C\.br\Date and Time Signed: 05/09/23 12:01 EDT\.br\Electronically Co-Signed By: Noe Azar DO\.br\Date and Time Co-Signed: 05/09/23 16:06 EDT ED Patient Education Noteon 05-09-2023 ED Patient Education Note Normal [facility] ED Patient Summaryon 023 ED Patient Summary Normal [facility] Glucoseon 05-09-2023 Glucose [Mass/Vol] 460 mg/dL Abnormal 55-199 [facility] Comment on above: Order Comment: Finge rstick blood sugar is >450. Blood sugar blood draw ordered per protocol. Result Comment: Crit ical Result verified by repeat analysis\Critical Result [id number] Called to [facility] AT [facility]S by SHELLY FERNANDO And Read Back For Confirmation at: 05/09/2023 22:21:19 Performed By: #### 2 113341 ####[facility] [address] [place] [address] HEMATOLOGYOrdered By: SYSTEM SYSTEM on 05-09-2023 Basophils/100 [...] 90.4 fL Normal 80.0 - 100.0 fL FT HemeAutoSS Platelet mean volume (Bld) [Entitic vol] 7.6 fL Normal 6.4 - 10.8 fL [facility] HemeAutoSS Platelets (Bld) [#/Vol] 181.0 E9/L Normal 150.0 - 500.0 E9/L [facility] HemeAutoSS RBC (Bld) [#/Vol] 5.1 E12/L Normal 4.3 - 5.9 E12/L [facility] HemeAutoSS WBC corrected for nucl RBC Auto (Bld) [#/Vol] 15.9 E9/L High 4.0 - 11.0 E9/L [facility] HemeAutoSS Hep Func Panelon 05-09-2023 Albumin [Mass/Vol] 3.5 g/dL Normal 3.3-5.0 [facility] Comment on above: Performed By: #### 1 [id number], [id number], [id number], [id number], [id number], [id number], [id number], [id number] ####[facility] [address] [place] [address] Albumin/Globulin (S) [Mass conc ratio] 1.0 Low 1.1-2.2 [facility] Comment on above: Performed By: #### 1 [id number], [id number], [id number], [id number], [id number], [id number], 6298450, [id number], [id number] ####[facility] [address] [place] [address] ALP [Catalytic activity/Vol] 68 Int._Unit/L Normal 21-98 [facility] Comment on above: Performed By: #### 1 2285211, 4121786, 16079402, 6907875, 3080981, 3569382, 6287555, 1703307, 38520401 ####[facility] [address] [place] [address] ALT No additional P-5'-P [Catalytic activity/Vol] 18 Int._Unit/L Normal 6-46 [facility] Comment on above: Performed By: #### 1 4780246, 1807611, 75760442, 1870841, 8537356, 1200552, 3246999, 9641030, 18693704 ####[place] [address] [place] [address]357 AST [Catalytic activity/Vol] 18 Int._Unit/L Normal 5-43 [facility] Comment on above: Performed By: #### 1 5948161, 6182023, 22735849, 0108528, 1626580, 5596809, 0426483, 3465993, 30772187 ####[place] [address] [place] 5930357 Bilirubin [Mass/Vol] 0.9 mg/dL Normal 0.0-1.1 [facility] Comment on above: Performed By: #### 1 6742584, 8220671, 13224218, 0119773, 9955503, 4949743, 1326145, 9189751, 70674091 ####[place] [address] Bilirubin.direct [Mass/Vol] 0.2 mg/dL Normal 0.1-0.4 [facility] Comment on above: Performed By: #### 1 0646536, 1068005, 06422479, 7818328, 2859408, 2440552, 7130675, 2245904, 17595427 ####[place] [address] [place] 59[address]357 Bilirubin.indirect [Mass or moles/Vol] 0.7 mg/dL Normal 0.1-0.9 [facility] Comment on above: Performed By: #### 1 0155771, 3788352, 40103276, 0590389, 1758113, 4336720, 3203497, 8306984, 79242830 ####[place] [address] [place] [address] Globulin (S) [Mass/Vol] 3.5 g/dL Normal 1.4-4.0 [facility] Comment on above: Performed By: #### 1 8426683, 6249286, 82068685, 8832067, 0832106, 8905107, 1170384, 6166300, 68432736 ####[facility] [address] [place] [address] Protein [Mass/Vol] 7.0 g/dL Normal 6.0-7.8 [facility] Comment on above: Performed By: #### 1 4016449, 7930669, 23180016, 2935557, 4996454, 0195719, 7145319, 2794299, 72363874 ####[facility] [address] [place] [address] Laboratory - Microbiology an d Antimicrobial susceptibilityOrdered By: Nata Prieto on 05-09-2023 Bacteria identified Cx Nom (U) <10,000 cfu/ml Mixed skin contaminants [facility] Lactic Acidon 05-09-2023 Lactate [Mass/Vol] 1.8 mmol/L Normal 0.5-2.2 [facility] Comment on above: Performed By: #### 1 8593902, 9282162, 40478004, 7953765, 5525470, 5260620, 6875203, 4458207, 19681330 ####[facility] [address] [place] [address] Lipase Levelon 05-09-2023 Lipase [Catalytic activity/Vol] 70 U/L High 13-58 [facility] Comment on above: Performed By: #### 1 3981485, 1744925, 24967239, 7162442, 0602331, 2031344, 1861673, 7057226, 29986182 ####[facility] [address] [place] [address] Main OR PACU I Recordon 04-30 Main OR PACU I Record Normal [facility] Main OR Preoperative Recordo n 05-09-2023 Main OR Preoperative Record Normal [facility] Main OR Preoperative Record Normal [facility] Monitor Recordon 05-09-2023 Monitor Record [id number]# 1.00CD:127 Normal [facility] Monitor Record [id number]# 1.00CD:127 Normal [facility] Operative Reporton 3 Operative Report Normal [facility] Comment on above: Result Comment: Elec tronically Signed By: JAILEEN CHISHOLM, Glynn Valdes\Date and Time Signed: 05/09/23 14:13 EDT PT & PTTon 05-09-2023 aPTT Coag (PPP) [Time] 23.7 second(s) Low 25.1-36.5 [facility] Comment on above: Result Comment: Para meter [...] the same coagulation reagent and instrumentation as [facility]. Currently there are no coagulation studies available worldwide for children to 14 days, and no normal ranges. Heparin therapeutic range (represented by Anti-Factor Xa activity of 0.2 - 0.4 U/mL) corresponds to PTT of 56.6 - 109.0 sec. Performed By: #### 1 1522695, 7862468, 33090998, 6818902, 2651843, 8132826, 3088650, 9428498, 09233969 ####[facility] [place] [address] INR Coag (PPP) [Relative time] 0.9 {INR} Invalid Interpretation Code [facility] Comment on above: Result Comment: INR results are specifically intended to assess patients stabilized on long-term Anticoagulation therapy suggested INR?s ?Less Intensive Anticoagulation? 2.0 ? 3.0Conventional Range 3.0 ? 4.5 Performed By: #### 1 2702889, 5544450, 49266423, 5093846, 5699295, 6134613, 3082103, 2067954, 10591941 ####[facility] [address] [place] [address] PT Coag (PPP) [Time] 10.0 second(s) Normal 9.4-12.5 [facility] Comment on above: Result Comment: 15 d [...] the same coagulation reagent and instrumentation as [facility]. Currently there are no coagulation studies available worldwide for children to 14 days, and no normal ranges. Performed By: #### 1 2134367, 8580746, 53978101, 7368505, 7405854, 6673377, 4763643, 9789972, 94550018 ####[facility] [address] [place] [address] Progress Note-Physicianon Progress Note-Physician Normal [facility] Comment on above: Result Comment: Elec tronically Signed By: Gino Yates Jr., DO\.br\Date and Time Signed: 05/09/23 15:16 EDT Progress Note-Physician Normal [facility] Comment on above: Result Comment: Elec tronically Signed By: Gino Yates Jr., DO\.br\Date and Time Signed: 05/09/23 13:29 EDT Troponin 0 Hr.on 05-09-2023 Troponin I.cardiac [Mass/Vol] 15.10 pg/mL Normal 10.10-27.10 [facility] Comment on above: Result Comment: The 95% CI (Confidence Interval) PPV (Positive Predictive Value) for myocardial infarction in females is 38 pg/mL, in males 51 pg/mL. The results should be used in conjunction with clinical conditions of myocardial infarction.(Access High Sensitivity Troponin I Instructions For Use, Jairo Ellsworth, March 2018) Performed By: #### 1 9392880, 0115351, 69599387, 9876407, 2137596, 7413924, 0176998, 1403518, 97671480 ####[facility] [address] [place] [address] UA With Cult Reflexon 2022 Bacteria LM Ql (Urine sed) 1+ /HPF Abnormal Trace [facility] Comment on above: Performed By: #### 2 451015, 44002170 ####[address] [address] Bilirubin Ql (U) Negative Normal Negative [facility] Comment on above: Performed By: #### 2 576000, 31882861 ####[address] [address] Clarity (U) SL CLOUDY Abnormal Clear [facility] Comment on above: Performed By: #### 2 353542, 29083006 ####[address] [address] Color (U) STRAW Abnormal Yellow [facility] Comment on above: Performed By: #### 2 876986, 39958136 ####[address] [address] Epithelial cells.squamous LM.HPF (Urine sed) [#/Area] 0-2 Normal 0-2 [facility] Comment on above: Performed By: #### 2 054533, 99451959 ####[address] [address] Glucose Test strip (U) [Mass/Vol] 3+ Abnormal Negative [facility] Comment on above: Performed By: #### 2 053642, 86709333 ####[address] [address] Hemoglobin Ql (U) 1+ Abnormal Negative [facility] Comment on above: Performed By: #### 2 797236, 29871512 ####[facility] [address] [place] [address] Ketones (U) [Mass/Vol] Negative Normal Negative [facility] Comment on above: Performed By: #### 2 053540, 42693942 ####[address] [address] [place].plasma/Lithi um.RBC (Bld) [Mass ratio] 0-3 Normal 0-3 [facility] Comment on above: Performed By: #### 2 744798, 29359812 ####[address] [address] Nitrite Ql (U) Negative Normal Negative [facility] Comment on above: Performed By: #### 2 682507, 57824388 ####[address] [address] pH (U) 5.5 [pH] Invalid Interpretation Code 5.0-9.0 [facility] Comment on above: Performed By: #### 2 216868, 25060434 ####[address] [address] Protein (U) [Mass/Vol] TRACE Abnormal Negative [facility] Comment on above: Performed By: #### 2 637700, 74952431 ####[address] [address] Specific gravity (U) [Rel density] 1.015 Invalid Interpretation Code 1.005-1.030 [facility] Comment on above: Performed By: #### 2 268129, 44026784 ####[address] [address] Type of Urine collection method Clean Catch Normal [facility] Comment on above: Performed By: #### 2 723510, 17144151 ####[address] [address] Urobilinogen Qn (U) 0.2 {Isis'U}/dL Normal 0.0-1.0 [facility] Comment on above: Performed By: #### 2 662379, 92770352 ####[facility] [address] [place] [address] WBC Auto Ql (U) 1+ Abnormal Negative [facility] Comment on above: Performed By: #### 2 087553, 40135994 ####[facility] [address] [place] [address] WBC LM.HPF (Urine sed) [#/Area] /[HPF] Abnormal 0-5 [facility] Comment on above: Performed By: #### 2 574280, 03815386 ####[facility] [address] [place] [address] URINALYSISOrdered By: Alecia Jones on 05-09-2023 Bacteria [...] AM) Normal Negative [facility] UA Auto SS [place].plasma/Lithi um.RBC (Bld) [Mass ratio] 0-3 /HPF Normal [...] Desc Clean Catch (05/09/23 11:07 AM) Normal [facility] UA Auto SS Urobilinogen Qn (U) 0.1318624 {Isis'U}/dL Normal 0.0 - 1.0 EU/dL FT UA Auto SS WBC Auto Ql (U) 1+ *ABN* (05/09/23 11:07 AM) Invalid Interpretation Code Negative [facility] UA Auto SS WBC LM.HPF (Urine sed) [#/Area] /[HPF] Invalid Interpretation Code 0-5/HPF [facility] UA Auto SS eGFRon 05-09-2023 GFR/1.73 sq M.predicted among non-blacks MDRD (S/P/Bld) [Vol rate/Area] 34 mL/min/1.73 m2 Low >=59 [facility] Comment on above: Order Comment: Order added by Discern Expert. Result Comment: Patrol Conductor maxi kidney disease could be indicated at eGFR's of less than 60 mL/min/1.73m2. Kidney failure is indicated at less than 15 mL/min/1.73m2. Performed By: #### 1 8918943, 6396046, 21939427, 9998304, 1476892, 6164008, 5465753, 5344117, 07798407 ####[facility] [address] [place] [address] [facility] HNO ID: [id number] Author: Coordinator, Mammography Service: ? Author Type: Physician Type: Letter Filed: 03/30/2023 11:31 PM Note Text: March 30, 2023 PID: [id number] Shahana Grace [address] [place] [id number] Dear Ms. Grace, We are pleased to [...] report will be kept on file at [facility] as part of your permanent medical record and are available for your continuing care. Thank you for allowing us to help in meeting your health care needs. Sincerely, Dr. Costa Interpreting Radiologist [facility] (Normal over 40) Normal [facility] SCREENINGon 03-26-2023 [facility] SCREENING * * *Final Report* * * DATE OF EXAM: Mar 26 2023 2:03PM W 0581 - [facility] SCREENING / PROCEDURE REASON: Z12.31 * * * * Physician Interpretation * * * * RESULT: #[id number] - [facility] SCREENING BILATERAL DIGITAL SCREENING MAMMOGRAM WITH CAD: 03/26/2023 HISTORY: Z12.31 / Screening Mammogram-Patient reports NO symptoms. RESULT: TECHNIQUE: The study was acquired using full field digital technology and interpreted from soft copy. Current study was also evaluated with a Computer Aided Detection (CAD). Comparison is made to exams dated: 07/13/2018 mammogram - [facility] [place], 11/10/2019 mammogram - [facility], 11/11/2020 mammogram - [facility], and 01/28/2022 mammogram - [facility]. There are scattered fibroglandular elements in both breasts. There is a biopsy clip in the right breast. No significant masses, calcifications, or other findings are seen in either breast. There has been no significant interval change. IMPRESSION: NEGATIVE There is no mammographic evidence of malignancy. A 1 year screening mammogram is recommended. Sharona arechiga/vincent:03/29/2023 08:29:23 Laborer Livestock(s): Izabela Cardona [facility] letter sent: Normal over 40 Mammogram [...] Health, Family Medicine, and Medical/Surgical Oncology, the [facility] has carefully reviewed the data and reached [...] their providers when to stop screening mammograms. Machine Finisher: Vincent Transcribe Date/Time: Mar 26 2023 1:20P Dictated by : SHARONA COSTA MD This examination was interpreted and the report reviewed and electronically signed by: SHARONA COSTA MD on Mar 29 2023 8:29AM EST [id number] Normal [facility] Urine 10 SGon 11-24-2022 Albumin DL <= 20 mg/L (U) [Mass/Vol] Negative [employer] Other Albumin DL <= 20 mg/L (U) [Mass/Vol] Moderate [employer] Other pH (U) 5.0 [pH] [employer] Other Urine 10 SG Negative [employer] Other Urine 10 SG 1.005 [employer] Other Urine 10 SG trace [employer] Other Urine 10 SG 0.2 [employer] Other Urine Cultureon 11-24-2022 Bacteria identified Cx Nom (U) Reason for Exam Urinary tract infection, site not specified;Hematuria, unspe Urine Reason for Exam: Urinary tract infection, site not specified;Hematuria, unspe : Urine ORGANISM: Enterococcus faecalis (O:ENTFAC) [place] Count 75,000 Aerobic LAUREN Charge (PCMIC38) ---- [...] RESISTANT TO ALL B-LACTAM DRUGS. PERFORMED BY: [facility] [address] [place] [address] PATHOLOGIST WINDOWS ARCHITECT KEVIN SWARTZ M.D. Normal [facility] Comment on above: Performed By: #### C UU #### [facility] [address] CHEMISTRYOrdered By: SYSTEM SYSTEM on 11-14-2022 [...] rate/Area] 40 mL/min/1.73 m2 Low >=59mL/min/1.73 m2 [facility] Chem S Globulin (S) [Mass/Vol] 3.6 g/dL Normal 1.4 - 4.0 gm/dL FT Remisol Glucose [Mass/Vol] 263 mg/dL High 55 [...] mg/mg Normal 10 - 20 FT Remisol COAGULATIONOrdered By: Allis on Jessica on [...] Interpretation Code Negative [facility] UA Auto SS [place].plasma/Lithi um.RBC (Bld) [Mass ratio] 4-20 /HPF Normal [...] [facility] UA Auto SS Urobilinogen Qn (U) 1.1149861 {Isis'U}/dL Normal 0.0 - 1.0 EU/dL [facility] [...] Comment: Modesto vanegas RN/ POC Device SN [id number] Invalid Interpretation Code [facility] POC Subsection POC User ID [id number] Invalid Interpretation Code [facility] POC Subsection POC Username AZIZA DELA CRUZ Invalid Interpretation Code [facility] POC Subsection Office Visit (Cardiology)on 07-29-2022 Follow-up visit Diagnoses/Problems Assessed CAD in [place] artery (414.01) (I25.10) CHF (congestive heart failure) (428.0) (I50.9) History of PTCA (V45.82) (Z98.61) 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 She suffered an inferior HI in 2015 with primary revascularization of the [...] of section x2 History of Colonoscopy 30Aug2006 [facility] History of Lithotripsy Past Medical History Problems [...] Recorded: 29Jul2022 09:54AM Heart Rate80, L Radial Tcvqfzor976, LUE, Sitting Qarhljijl12, LUE, Sitting Height5 ft 2 in Boukmd467 lb BMI Stmuaudlxh61.85 kg/m2 BSA Calculated1.9 (more content not included)... Normal [employer] Tobacco Screening.on 022 Adult depression screening assessment No [facility] tor Heart-[place] [address] 250 DO Work Phone: Fall risk assessment a) No falls within the last year [facility] Heart-[place] y 250 DO Work Phone: Tobacco use status CP b) No [facility] Heart-[place] y 250 DO Work Phone: CHEMISTRYOrdered By: Lab ROP User on 06-19-2022 Glucose [Mass/Vol] 190 mg/dL High 55 - 99 mg/dL FTM C POC Subsection Comment on above: Result Comment: Modesto vanegas RN/ POC Device SN [id number] Invalid Interpretation Code [facility] POC Subsection POC User ID [id number] Invalid Interpretation Code [facility] POC Subsection POC Username Ayleen Kelley Invalid Interpretation Code [facility] POC Subsection Glucose [Mass/Vol] 176 mg/dL High 55 - 99 mg/dL FTM C POC Subsection Comment on above: Result Comment: Modesto vanegas RN/ POC Device SN [id number] Invalid Interpretation Code [facility] POC Subsection POC User ID [id number] Invalid Interpretation Code [facility] POC Subsection POC [...] rate/Area] 25 mL/min/1.73 m2 Low >=59mL/min/1.73 m2 [facility] Chem S Glucose [Mass/Vol] [...] 10.0 E9/L High 2.0 - 7.5 E9/L FT HemeAutoSS HEMATOLOGYOrdered By: Rayne Barnhart on 06-19-2022 [...] 11.5 E9/L High 4.0 - 11.0 E9/L [facility] HemeAutoSS CHEMISTRYOrdered By: Lab ROP User on 06-18-2022 Glucose [Mass/Vol] 192 mg/dL High 55 - 99 mg/dL [facility] C POC Subsection Comment on above: Result Comment: Modesto vanegas RN/ POC Device SN [id number] Invalid Interpretation Code FT POC Subsection POC User ID [id number] Invalid Interpretation Code [facility] POC Subsection POC Username NATALIEKAIA MC Invalid Interpretation Code [facility] POC Subsection CHEMISTRYOrdered By: [...] m2 Low >=59mL/min/1.73 m2 FT Chem S Glucose [Mass/Vol] 279 mg/dL High [...] 4.8 mmol/L Normal 3.5 - 5.3 mmol/L [facility] Remisol Protein [...] 14.3 E9/L High 4.0 - 11.0 E9/L [facility] HemeAutoSS TRIMETHOPRIM+SULFAMETHOXAZOL E:SUSC:PT:ISOLATE:ORDQN:MICOrdered By: Nata Prieto on 06-17-2022 Trimethoprim+Sulfame thoxazole LAUREN [Susc] 20,000 cfu/ml Klebsiella pneumoniae <10,000 cfu/ml Mixed skin contaminants [facility] Trimethoprim+Sulfamethoxazol e LAUREN [Susc]Ordered By: Nata Prieto on 06-17-2022 Klebsiella pneumoniae Klebsiella pneumoniae [facility] URINALYSISOrdered By: Ruperto Lutz on 06-17-2022 [...] Interpretation Code Negative [facility] UA Auto SS [place].plasma/Lithi um.RBC (Bld) [Mass ratio] 4-20 /HPF Normal [...] [facility] UA Auto SS Urobilinogen Qn (U) 0.0520134 {Isis'U}/dL Normal 0.0 - 1.0 EU/dL [facility] UA Auto SS WBC Auto Ql (U) 1+ *ABN* (06/17/22 2:35 PM) Invalid Interpretation Code Negative [facility] UA Auto SS WBC LM.HPF (Urine sed) [#/Area] 6-15 /HPF Invalid Interpretation Code 0-5/HPF [facility] UA Auto SS CNCOon 01-28-2022 [facility] HNO ID: [id number] Author: Mammography Coordinator Service: ? Author Type: Physician Type: Letter Filed: 01/29/2022 11:34 PM Note Text: January 28, 2022 PID: [id number] Shahana Grace [address] [place] [address] Dear Ms. Grace, We are pleased to [...] report will be kept on file at [facility] as part of your permanent medical record and are available for your continuing care. Thank you for allowing us to help in meeting your health care needs. Sincerely, Dr. Green Interpreting Radiologist [facility] (Normal over 40) Normal [facility] SCREENINGon 01-28-2022 [facility] SCREENING * * *Final Report* * * DATE OF EXAM: Jan 28 2022 12:49PM [facility] 0581 - [facility] SCREENING / PROCEDURE REASON: annual * * * * Physician Interpretation * * * * RESULT: #[id number] - [facility] SCREENING BILATERAL DIGITAL SCREENING MAMMOGRAM WITH CAD: 01/28/2022 HISTORY: Screening Mammogram-Patient reports NO symptoms. RESULT: TECHNIQUE: The study was acquired using full field digital technology and interpreted from soft copy. Current study was also evaluated with a Computer Aided Detection (CAD). Comparison is made to exams dated: 11/11/2020 mammogram - [facility], 11/10/2019 mammogram - [facility], 07/13/2018 mammogram, and 04/29/2017 [facility] - [facility]. There are scattered fibroglandular elements in both breasts. There is a biopsy clip in the right breast. No significant masses, calcifications, or other findings are seen in either breast. There has been no significant interval change. IMPRESSION: NEGATIVE There is no mammographic evidence of malignancy. A 1 year screening mammogram is recommended. Nafisa fernando/vincent:01/28/2022 14:40:17 Laborer Livestock(s): RT Grupo(R)(M), [facility] letter sent: Normal over 40 Mammogram BI-RADS: [...] Health, Family Medicine, and Medical/Surgical Oncology, the [facility] has carefully reviewed the data and reached [...] their providers when to stop screening mammograms. Machine Finisher: Vincent Transcribe Date/Time: Jan 28 2022 12:39P Dictated by: NAFISA GREEN MD This examination was interpreted and the report reviewed and electronically signed by: NAFISA GREEN MD on Jan 28 2022 2:40PM EST [id number] Normal [facility] CHEMISTRYOrdered By: SYSTEM SYSTEM on 12-10-2021 Creatinine [Mass/Vol] 1.1 mg/dL Normal 0.5 - 1.3 mg/dL [facility] Remisol GFR/1.73 sq M.predicted among blacks MDRD (S/P/Bld) [Vol rate/Area] 60 mL/min/1.73 m2 Normal >=59mL/min/1.73 m2 [facility] Chem S GFR/1.73 sq M.predicted among non-blacks MDRD (S/P/Bld) [Vol rate/Area] 49 mL/min/1.73 m2 Low >=59mL/min/1.73 m2 [facility] Chem S XR KUB [...] DEL ROSARIO Date: 2021-10-08 07:13 Normal [facility] PROF CHEM 8 (BAS METB)on Anion gap [Moles/Vol] 12.7 mmol/L Normal [facility] Comment on above: Performed By: #### B MP #### [facility] [address] [place] [address] [address] Shreya De La Fuente Calcium [Mass/Vol] 9.7 mg/dL Normal 8.4-10.2 [facility] Comment on above: Performed By: #### B MP #### [facility] [address] [place] [address] [address] Shreya De La Fuente Chloride [Moles/Vol] 108 mmol/L Critically high 98-107 [facility] Comment on above: Performed By: #### B MP #### [facility] [address] [address] [address] Shreya De La Fuente CO2 [Moles/Vol] 26.1 mmol/L Normal 22.0-30.0 [facility] Comment on above: Performed By: #### B MP #### [facility] [address] [address] [address] Shreya De La Fuente Creatinine [Mass/Vol] 1.29 mg/dL Critically high 0.52-1.04 [facility] Comment on above: Performed By: #### B MP #### [facility] [address] [place] [address] [address] Shreya De La Fuente EGFR-AF [place]OREAN 50 mL/min/1.73m2 Critically low >=60 [facility] Comment on above: Performed By: #### B MP #### [facility] [address] [place] [address] [address] Shreya De La Fuente EGFR-NON AF [place] 41 mL/min/1.73m2 Critically low >=60 [facility] Comment on above: Performed By: #### B MP #### [facility] [address] [address] [address] Shreya De La Fuente Glucose [Mass/Vol] 117 mg/dL Critically high 74-106 [facility] Comment on above: Performed By: #### B MP #### [facility] [address] [place], [place] [address] Dr. Shreya De La Fuente Potassium [Moles/Vol] 3.8 mmol/L Normal 3.4-5.0 [facility] Comment on above: Performed By: #### B MP #### [facility] [id number] Shreya De La Fuente Sodium [Moles/Vol] 143 mmol/L Normal 137-145 [facility] Comment on above: Performed By: #### B MP #### [facility] [id number] Shreya De La Fuente Urea nitrogen [Mass/Vol] 15.0 mg/dL Normal 7.0-17.0 [facility] Comment on above: Performed By: #### B MP #### [facility] [address] [address] [address] Shreya De La Fuente Urea nitrogen/Creatinine [Mass ratio] 11.6 mg/mg Normal [facility] Comment on above: Performed By: #### B MP #### [facility] [address] [place], [place] [address] Dr. Shreya De La Fuente Tobacco Screening.on 021 Fall risk assessment a) No falls within the last year [facility] Daniel 600 DO Work Phone: [facility] Work Phone: Tobacco use status CP b) No [facility] 600 DO Work Phone: Radiologyon 07-15-2021 CT Head WO contrast Normal MP-No rth [facility] 250 DO Work Phone: Laboratory - Chemistry and C hemistry - challengeon 07-10-2021 CO2 [Moles/Vol] 20 mmol/L below low threshold 21-31 [facility] 250 DO Work Phone: Creatinine [Mass/Vol] 1.6 mg/dL above high threshold 0.5-1.3 [facility] Selam pruitt 250 DO Work Phone: No Panel Informationon 07-10 39 {mL/min/1.73_m2} below low threshold >=59 [facility] Selam pruitt 250 DO Work Phone: [phone] Comment on above: eGFR is race adjuste d. AA=. 32 {mL/min/1.73_m2} below low threshold >=59 [facility] Selam pruitt 250 DO Work Phone: [phone] Comment on above: Chronic kidney disea se could be indicated at eGFR's of less than 60 mL/min/1.73m2. Kidney failure is indicated at less than 15 mL/min/1.73m2. 14 {mEq/L} Normal 6-16 [facility] Selam 250 DO Work Phone: 113 mmol/L above high threshold 101-111 [facility] Selam 250 DO Work Phone: [phone] 4.3 mmol/L Normal 3[facility]5.3 [facility] Work Phone: [phone] 143 mmol/L Normal 135-145 [facility] DO Work Phone: [phone] 9.6 mg/dL Normal 8.9-11.1 [facility] Work Phone: [phone] 31 {No_Units} above high threshold 10-20 [facility] Selam pruitt 250 DO Work Phone: [phone] 49 mg/dL above high threshold 5-21 [facility] Work Phone: [phone] 139 mg/dL Normal 55-[address] [facility] DO Work Phone: [phone] Comment on above: If this glucose resu lt represents a fasting glucose, interpretation should refer to the following reference range: 55-99 mg/dL Tobacco Screening.on 021 Fall risk assessment a) No falls within the last year [facility] [employer] Daniel 600 DO Work Phone: Tobacco use status [facility] b) No [facility] [employer] Daniel 600 DO Work Phone: Creatinineon 04-22-2017 Creatinine 0.63 mg/dL Normal 0.50-1.05 [facility] Comment on above: Performed By: #### 1 [id number] ####[facility] [address] [place] [address] eGFR (MDRD) mL/min/{1.73_m2} Normal [facility] Comment on above: Result Comment: Inte rpretation for Chronic Kidney Disease:Stages 1&2 >60 Healthy or potential kidney damage.Mild decrease of GFR.Stage 3 30-59 Moderate decrease of GFR.Stage 4 15-29 Severe decrease of GFR.Stage 5 <15 Kidney failure or on dialysis. Performed By: #### 1 [id number] ####[facility] [address] [place] [address] Electrolyte Panelon 04-22-20 17 Anion gap 17 mmol/L Normal 10-20 [facility] Comment on above: Performed By: #### 1 [id number] ####[facility] [address] [place] [address] Bicarbonate (HCO3) 23 mmol/L Normal 21-32 [facility] Comment on above: Performed By: #### 1 [id number] ####[facility] [address] [place] [address] Chloride 108 mmol/L High 98-107 [facility] Comment on above: Performed By: #### 1 [id number] ####[facility] [address] [place] [address] Potassium molar conc 3.9 mmol/L Normal 3.5-5.1 [facility] Comment on above: Performed By: #### 1 [id number] ####[facility] [address] [place] [address] Sodium 144 mmol/L Normal 136-145 [facility] Comment on above: Performed By: #### 1 [id number] ####[facility] [address] [place] [address] Urea Nitrogenon 04-22-2017 Urea nitrogen 11 mg/dL Normal 6-23 [facility] Comment on above: Performed By: #### 1 [id number] ####[facility] [address] [place] [address] Vital Signs Date Time Vital Sign Value Performing Clinician Facility 02-23-2024 12:00-0400 Hourly Rounding Glynnjose GRUBBSSLIN [facility] 02-23-2024 12:00-0400 Promise to Return Glynn AGNES [facility] 02-23-2024 11:08-0400 Heart rate 61 /min Glynn AGNES [facility] 02-23-2024 11:08-0400 SaO2% (BldA) [Mass fraction] 94 % Glynn AGNES [facility] 02-23-2024 11:06-0400 Diastolic blood pressure 73 mm[Hg] Glynn AGNES [facility] 02-23-2024 11:06-0400 Mean blood pressure 108 mm[Hg] Glynn AGNES [facility] 02-23-2024 11:06-0400 Systolic blood pressure 179 mm[Hg] Glynn AGNES [facility] 02-23-2024 11:06-0400 Body temperature 97.88 [degF] Glynn AGNES [facility] 02-23-2024 11:00-0400 Hourly Rounding Glynn AGNES [facility] 02-23-2024 11:00-0400 Promise to Return Glynn AGNES [facility] 02-23-2024 10:00-0400 Hourly Rounding Glynn MINALIN [facility] 02-23-2024 10:00-0400 Promise to Return Glynnjose GRUBBSSLIN [facility] 02-23-2024 07:00-0400 Body temperature 97.34 [degF] Glynnjose GRUBBSSLIN [facility] 02-23-2024 07:00-0400 Diastolic blood pressure 79 mm[Hg] Glynnjose GRUBBSSLIN [facility] 02-23-2024 07:00-0400 Heart rate 54 /min Glynnjose GRUBBSSLIN [facility] 02-23-2024 07:00-0400 Respiratory rate 16 /min Glynnjose GRUBBSSLIN [facility] 02-23-2024 07:00-0400 SaO2% (BldA) [Mass fraction] 96 % Glynn GRUBBSSLIN [facility] 02-23-2024 07:00-0400 Systolic blood pressure 182 mm[Hg] Glynnjose GRUBBSSLIN [facility] 02-22-2024 23:29-0400 Body temperature 98.42 [degF] Glynnjose GRUBBSSLIN [facility] 02-22-2024 23:29-0400 Diastolic blood pressure 84 mm[Hg] Glynnjose GRUBBSSLIN [facility] 02-22-2024 23:29-0400 Heart rate 52 /min Glynn AGNES [facility] 02-22-2024 23:29-0400 Respiratory rate 16 /min Glynnjose GRUBBSSLIN [facility] 02-22-2024 23:29-0400 SaO2% (BldA) [Mass fraction] 97 % Glynnjose GRUBBSSLIN [facility] 02-22-2024 23:29-0400 Systolic blood pressure 162 mm[Hg] Glynnjose GRUBBSSLIN [facility] 02-22-2024 21:44-0400 Heart rate 48 /min Glynnjose GRUBBSSLIN [facility] 02-22-2024 19:15-0400 Mean blood pressure 116 mm[Hg] Glynnjose GRUBBSSLIN [facility] 02-22-2024 19:15-0400 Body temperature 98.24 [degF] Glynnjose GRUBBSSLIN [facility] 02-22-2024 16:51-0400 gluc 308 mg/dL Glynnjose GRUBBSSLIN [facility] 02-22-2024 15:00-0400 Body temperature 97.52 [degF] Glynnjose GRUBBSSLIN [facility] 02-22-2024 12:48-0400 gluc 303 mg/dL Glynn AGNES [facility] 02-22-2024 09:41-0400 Heart rate 87 /min Glynnjose GRUBBSSLIN [facility] 02-22-2024 09:40-0400 gluc 212 mg/dL Glynnjose GRUBBSSLIN [facility] 02-22-2024 07:30-0400 Mean blood pressure 101 mm[Hg] Lgynnjose GRUBBSSLIN [facility] 02-22-2024 03:34-0400 Blood Pressure Location Glynnjose GRUBBSSLIN [facility] 02-22-2024 03:34-0400 Body temperature 97.16 [degF] Glynn AGNES [facility] 02-22-2024 03:34-0400 Heart rate 52 /min Glynn AGNES [facility] 02-22-2024 03:34-0400 Respiratory rate 18 /min Glynn AGNES [facility] 02-21-2024 15:00-0400 Blood Pressure Location Glynn AGNES [facility] 02-21-2024 15:00-0400 Mean blood pressure 103 mm[Hg] Glynn AGNES [facility] 02-21-2024 15:00-0400 Respiratory rate 16 /min Glynn AGNES [facility] 02-21-2024 12:00-0400 Mean blood pressure 99 mm[Hg] Glynn AGNES [facility] 02-21-2024 07:00-0400 Mean blood pressure 112 mm[Hg] Glynn AGNES [facility] 02-21-2024 02:37-0400 Heart rate 51 /min Glynn AGNES [facility] 02-20-2024 11:50-0400 Heart rate 57 /min Glynn AGNES [facility] 02-19-2024 13:28-0400 gluc Glynn AGNES [facility] Comment on above: Result Comment: or 02-19-2024 13:28-0400 Heart rate 75 /min Glynn AGNES [facility] 08-05-2023 16:01-0500 Heart rate 78 /min Orestes GEORGIE [facility] 08-05-2023 16:01-0500 SaO2% (BldA) [Mass fraction] 96 % Orestes COOK [facility] 08-05-2023 16:01-0500 Diastolic blood pressure 85 mm[Hg] Orestes COOK [facility] 08-05-2023 16:01-0500 Mean blood pressure 105 mm[Hg] Orestes COOK [facility] 08-05-2023 16:01-0500 Systolic blood pressure 146 mm[Hg] Orestes COOK [facility] 08-05-2023 16:01-0500 Mean blood pressure 105 mm[Hg] Orestes COOK [facility] 08-05-2023 16:01-0500 Respiratory rate 16 /min Orestes COOK [facility] 08-05-2023 15:35-0500 Heart rate 77 /min Orestes COOK [facility] 08-05-2023 15:35-0500 SaO2% (BldA) [Mass fraction] 93 % Orestes COOK [facility] 08-05-2023 15:34-0500 Diastolic blood pressure 78 mm[Hg] Orestes COOK [facility] 08-05-2023 15:34-0500 Mean blood pressure 106 mm[Hg] Orestes COOK [facility] 08-05-2023 15:34-0500 Systolic blood pressure 164 mm[Hg] Orestes COOK [facility] 08-05-2023 15:34-0500 Mean blood pressure 107 mm[Hg] Orestes COOK [facility] 08-05-2023 15:34-0500 Respiratory rate 18 /min Orestes COOK [facility] 08-05-2023 15:26-0500 Body temperature 97.88 [degF] Orestes JAQCUES [facility] 08-05-2023 15:26-0500 Diastolic blood pressure 78 mm[Hg] Orestes JACQUES [facility] 08-05-2023 15:26-0500 Heart rate 71 /min Orestes JACQUES [facility] 08-05-2023 15:26-0500 Mean blood pressure 105 mm[Hg] Orestes JACQUES [facility] 08-05-2023 15:26-0500 Respiratory rate 20 /min Orestes JACQUES [facility] 08-05-2023 15:26-0500 SaO2% (BldA) [Mass fraction] 95 % Orestes JACQUES [facility] 08-05-2023 15:26-0500 Systolic blood pressure 159 mm[Hg] Orestes JACQUES [facility] 08-05-2023 15:15-0500 Respiratory rate 18 /min Orestes JACQUES [facility] 08-05-2023 15:01-0500 Body temperature 97.7 [degF] Orestes JACQUES [facility] 08-05-2023 14:55-0500 Respiratory rate 11 /min Orestes JACQUES [facility] 08-05-2023 14:50-0500 Respiratory rate 16 /min Orestes JACQUES [facility] 08-05-2023 12:46-0500 Mean blood pressure 127 mm[Hg] Orestes JACQUES [facility] 08-05-2023 12:46-0500 Blood Pressure Location Orestes JACQUES [facility] 08-05-2023 12:44-0500 Blood Pressure Location Orestes JACQUES [facility] 08-05-2023 12:30-0500 Blood Pressure Location Orestes JACQUES [facility] 08-05-2023 12:26-0500 Body temperature 97.88 [degF] Orestes JACQUES [facility] 07-28-2023 11:14-0500 Body height 157.5 cm Sterling Sindon Work Phone: [facility] 07-28-2023 11:14-0500 Body mass index (BMI) [Ratio] 34.39 kg/m2 Sterling Sindon Work Phone: [facility] 07-28-2023 11:14-0500 Body weight 85.28 kg Sterling Florian DO Work Phone: [facility] 07-28-2023 11:14-0500 Diastolic blood pressure 86 mm[Hg] Sterling Florian DO Work Phone: [facility] 07-28-2023 11:14-0500 Heart rate 74 /min Sterling Florian DO Work Phone: [facility] 07-28-2023 11:14-0500 Systolic blood pressure 128 mm[Hg] Sterling Florian DO Work Phone: [facility] 06-02-2023 12:16-0400 Hourly Rounding aPola Woods [facility] 06-02-2023 12:16-0400 Promise to Return Paola Chuck [facility] 06-02-2023 11:11-0400 Hourly Rounding Paola Woods [facility] 06-02-2023 11:11-0400 Promise to Return Paola Chuck [facility] 06-02-2023 11:03-0400 Heart rate 54 /min [facility] 06-02-2023 11:03-0400 SaO2% (BldA) [Mass fraction] 94 % [facility] 06-02-2023 11:02-0400 Body temperature 98.06 [degF] [facility] 06-02-2023 11:02-0400 Diastolic blood pressure 87 mm[Hg] [facility] 06-02-2023 11:02-0400 Mean blood pressure 113 mm[Hg] [facility] 06-02-2023 11:02-0400 Systolic blood pressure 165 mm[Hg] [facility] 06-02-2023 11:00-0400 Respiratory rate 18 /min [facility] 06-02-2023 10:29-0400 Hourly Rounding [facility] 06-02-2023 10:29-0400 Promise to Return [facility] 06-02-2023 08:50-0400 Diastolic blood pressure 83 mm[Hg] [facility] 06-02-2023 08:50-0400 Heart rate 68 /min [facility] 06-02-2023 08:50-0400 Systolic blood pressure 188 mm[Hg] [facility] 06-02-2023 08:03-0400 Heart rate 58 /min [facility] 06-02-2023 08:03-0400 SaO2% (BldA) [Mass fraction] 96 % [facility] 06-02-2023 08:00-0400 Diastolic blood pressure 83 mm[Hg] [facility] 06-02-2023 08:00-0400 Mean blood pressure 118 mm[Hg] [facility] 06-02-2023 08:00-0400 Systolic blood pressure 188 mm[Hg] [facility] 06-02-2023 08:00-0400 Body temperature 97.7 [degF] [facility] 06-02-2023 02:36-0400 Blood Pressure Location [facility] 06-02-2023 02:36-0400 Body temperature 98.06 [degF] [facility] 06-02-2023 02:36-0400 Heart rate 68 /min [facility] 06-02-2023 02:36-0400 Respiratory rate 17 /min [facility] 06-01-2023 21:00-0400 Respiratory rate 16 /min [facility] 06-01-2023 20:28-0400 Heart rate 37 /min [facility] 06-01-2023 19:42-0400 SaO2% (BldA) [Mass fraction] 92 % [facility] 06-01-2023 19:41-0400 Mean blood pressure 98 mm[Hg] [facility] 06-01-2023 16:31-0400 Mean blood pressure 133 mm[Hg] [facility] 06-01-2023 16:31-0400 Respiratory rate 20 /min [facility] 06-01-2023 10:04-0400 Blood Pressure Location [facility] 06-01-2023 10:04-0400 Heart rate 67 /min [facility] 06-01-2023 10:04-0400 Mean blood pressure 125 mm[Hg] [facility] 06-01-2023 00:00-0400 Body temperature 97.7 [degF] [facility] 06-01-2023 00:00-0400 Mean blood pressure 107 mm[Hg] [facility] 05-31-2023 18:32-0400 Blood Pressure Location [facility] 05-30-2023 17:47-0400 gluc 171 mg/dL [facility] 05-30-2023 12:32-0400 gluc 191 mg/dL [facility] 05-27-2023 10:58-0400 Heart rate 80 /min [facility] 05-27-2023 09:29-0400 Body temperature 98.06 [degF] [facility] 05-27-2023 08:15-0400 Respiratory rate 18 /min [facility] 05-27-2023 08:10-0400 Respiratory rate 17 /min [facility] 05-27-2023 06:00-0400 Body temperature 99.68 [degF] [facility] 05-26-2023 15:59-0400 Heart rate 76 /min [facility] 05-11-2023 11:12-0400 Hourly Rounding [facility] 05-11-2023 11:12-0400 Promise to Return [facility] 05-11-2023 10:16-0400 Hourly Rounding [facility] 05-11-2023 10:16-0400 Promise to Return [facility] 05-11-2023 09:30-0400 Hourly Rounding [facility] 05-11-2023 09:30-0400 Promise to Return [facility] 05-11-2023 08:23-0400 gluc 226 mg/dL [facility] 05-11-2023 08:22-0400 Diastolic blood pressure 79 mm[Hg] [facility] 05-11-2023 08:22-0400 Heart rate 58 /min [facility] 05-11-2023 08:22-0400 Systolic blood pressure 192 mm[Hg] [facility] 05-11-2023 08:04-0400 Heart rate 66 /min [facility] 05-11-2023 08:04-0400 SaO2% (BldA) [Mass fraction] 96 % [facility] 05-11-2023 08:02-0400 Diastolic blood pressure 79 mm[Hg] [facility] 05-11-2023 08:02-0400 Mean blood pressure 117 mm[Hg] [facility] 05-11-2023 08:02-0400 Systolic blood pressure 192 mm[Hg] [facility] 05-11-2023 08:00-0400 Body temperature 98.06 [degF] [facility] 05-10-2023 23:00-0400 Heart rate 64 /min [facility] 05-10-2023 23:00-0400 Respiratory rate 16 /min [facility] 05-10-2023 20:40-0400 Heart rate 67 /min [facility] 05-10-2023 19:37-0400 Heart rate 70 /min [facility] 05-10-2023 19:37-0400 SaO2% (BldA) [Mass fraction] 93 % [facility] 05-10-2023 19:33-0400 Body temperature 97.52 [degF] [facility] 05-10-2023 19:32-0400 Blood Pressure Location [facility] 05-10-2023 19:32-0400 Mean blood pressure 75 mm[Hg] [facility] 05-10-2023 15:00-0400 Body temperature 98.24 [degF] [facility] 05-10-2023 15:00-0400 Heart rate 63 /min [facility] 05-10-2023 15:00-0400 Mean blood pressure 86 mm[Hg] [facility] 05-10-2023 15:00-0400 SaO2% (BldA) [Mass fraction] 94 % [facility] 05-10-2023 11:57-0400 gluc 314 mg/dL [facility] 05-10-2023 11:00-0400 Mean blood pressure 101 mm[Hg] [facility] 05-10-2023 11:00-0400 Respiratory rate 18 /min [facility] 05-10-2023 08:22-0400 gluc 249 mg/dL [facility] 05-10-2023 08:21-0400 Heart rate 71 /min [facility] 05-10-2023 08:00-0400 Body temperature 97.7 [degF] [facility] 05-10-2023 08:00-0400 Mean blood pressure 107 mm[Hg] [facility] 05-10-2023 04:19-0400 Mean blood pressure 114 mm[Hg] [facility] 05-10-2023 04:19-0400 Body temperature 98.06 [degF] [facility] 05-09-2023 15:00-0400 Body temperature 97.88 [degF] [facility] 05-09-2023 15:00-0400 Respiratory rate 15 /min [facility] 05-09-2023 14:50-0400 Blood Pressure Location [facility] 05-09-2023 14:50-0400 Respiratory rate 21 /min [facility] 05-09-2023 14:35-0400 Respiratory rate 20 /[facility]-09[facility]2023 14:04-0400 Body temperature 98.06 [degF] [facility] 11-14-2022 02:39-0400 Body temperature 98.06 [degF] Kaylinn Dokken [facility] 11-14-2022 02:39-0400 Diastolic blood pressure 77 mm[Hg] Kaylinn Dokken [facility] 11-14-2022 02:39-0400 Heart rate 82 /min Kaylinn Dokken [facility] 11-14-2022 02:39-0400 Mean blood pressure 104 mm[Hg] Kaylinn Dokken [facility] 11-14-2022 02:39-0400 Respiratory rate 21 /min Kaylinn Dokken [facility] 11-14-2022 02:39-0400 SaO2% (BldA) [Mass fraction] 96 % Kaylinn Dokken [facility] 11-14-2022 02:39-0400 Systolic blood pressure 157 mm[Hg] Kaylinn Dokken [facility] 11-14-2022 02:04-0400 Diastolic blood pressure 84 mm[Hg] Kaylinn Dokken [facility] 11-14-2022 02:04-0400 Heart rate 79 /min Kaylinn Dokken [facility] 11-14-2022 02:04-0400 Mean blood pressure 111 mm[Hg] Kaylinn Dokken [facility] 11-14-2022 02:04-0400 Respiratory rate 18 /min Kaylinn Dokken [facility] 11-14-2022 02:04-0400 SaO2% (BldA) [Mass fraction] 95 % Kaylinn Dokken [facility] 11-14-2022 02:04-0400 Systolic blood pressure 164 mm[Hg] Kaylinn Dokken [facility] 11-14-2022 01:30-0400 Diastolic blood pressure 96 mm[Hg] Kaylinn Dokken [facility] 11-14-2022 01:30-0400 Heart rate 83 /min Kaylinn Dokken [facility] 11-14-2022 01:30-0400 Mean blood pressure 122 mm[Hg] Kaylinn Dokken [facility] 11-14-2022 01:30-0400 Respiratory rate 18 /min Kaylinn Dokken [facility] 11-14-2022 01:30-0400 SaO2% (BldA) [Mass fraction] 96 % Kaylinn Dokken [facility] 11-14-2022 01:30-0400 Systolic blood pressure 174 mm[Hg] Kaylinn Dokken [facility] 11-14-2022 01:08-0400 Body temperature 99.68 [degF] Kaylinn Dokken [facility] 11-13-2022 23:38-0400 gluc 223 mg/dL Kaylinn Dokken [facility] 11-13-2022 23:38-0400 gluc Kaylinn Dokken [facility] 11-13-2022 23:29-0400 Body temperature 98.24 [degF] Paulieinn Dokken [facility] 11-13-2022 23:29-0400 Heart rate 76 /min Jodyylinn Dokken [facility] 11-13-2022 23:29-0400 Respiratory rate 18 /min Paulieinn Dokken [facility] 11-13-2022 23:14-0400 Heart rate 83 /min Makenzien Dokken [facility] 07-29-2022 09:54-0500 Body height 157.48 cm Albertina Baldemar [employer] Work Phone: [facility] DO Work Phone: 07-29-2022 09:54-0500 Body mass index (BMI) [Ratio] 35.85 kg/m2 Albertina R [employer] Work Phone: [facility] DO Work Phone: 07-29-2022 09:54-0500 Body surface area Derived from formula 1.9 m2 Albertina R [employer] Work Phone: [facility] 250 DO Work Phone: 07-29-2022 09:54-0500 Body weight 88.91 kg Albertina R Kuns Work Phone: [facility] DO Work Phone: 07-29-2022 09:54-0500 Diastolic blood pressure 94 mm[Hg] Albertina R Kuns Work Phone: [facility] DO Work Phone: 07-29-2022 09:54-0500 Heart rate 80 /min Albertina R Kuns Work Phone: [facility] DO Work Phone: 07-29-2022 09:54-0500 Systolic blood pressure 138 mm[Hg] Albertina Arndt Work Phone: [facility] DO Work Phone: 07-13-2022 13:08-0500 Blood Pressure Location Wendy Lue [facility] 07-13-2022 13:08-0500 Diastolic blood pressure 80 mm[Hg] Wendy Lue [facility] 07-13-2022 13:08-0500 Heart rate 65 /min Wendy Lue [facility] 07-13-2022 13:08-0500 Respiratory rate 16 /min Wendy Lue [facility] 07-13-2022 13:08-0500 Systolic blood pressure 122 mm[Hg] Wendy Lue [facility] 06-19-2022 09:11-0400 gluc 176 mg/dL Orestes COOK [facility] 06-19-2022 09:10-0400 Diastolic blood pressure 85 mm[Hg] Orestes COOK [facility] 06-19-2022 09:10-0400 Heart rate 81 /min [facility]OOK [facility] [facility] 06-19-2022 09:10-0400 Systolic blood pressure 163 mm[Hg] Orestes COOK [facility] 06-19-2022 09:00-0400 Hourly Rounding Orestes COOK [facility] 06-19-2022 09:00-0400 Promise to Return Orestes JACQUES [facility] 06-19-2022 08:00-0400 Hourly Rounding Orestes JACQUES [facility] 06-19-2022 08:00-0400 Promise to Return Orestes JACQUES [facility] 06-19-2022 07:44-0400 Blood Pressure Location Orestes JACQUES [facility] 06-19-2022 07:44-0400 BP/Pulse Patient Position Orestes JACQUES [facility] 06-19-2022 07:44-0400 Diastolic blood pressure 85 mm[Hg] Orestes JACQUES [facility] 06-19-2022 07:44-0400 Heart rate 71 /min Orestes JACQUES [facility] 06-19-2022 07:44-0400 Mean blood pressure 111 mm[Hg] Orestes JACQUES [facility] 06-19-2022 07:44-0400 Respiratory rate 18 /min Orestes JACQUES [facility] 06-19-2022 07:44-0400 SaO2% (BldA) [Mass fraction] 93 % rOestes JACQUES [facility] 06-19-2022 07:44-0400 Systolic blood pressure 163 mm[Hg] Orestes COOK [facility] 06-19-2022 07:00-0400 Body temperature 98.24 [degF] Orestes COOK [facility] 06-19-2022 07:00-0400 Hourly Rounding Orestes JACQUES [facility] 06-19-2022 07:00-0400 Promise to Return Orestes JACQUES [facility] 06-19-2022 01:25-0400 Blood Pressure Location Orestes JACQUES [facility] 06-19-2022 01:25-0400 Body temperature 98.42 [degF] Orestes JACQUES [facility] 06-19-2022 01:25-0400 BP/Pulse Patient Position Orestes JACQUES [facility] 06-19-2022 01:25-0400 Diastolic blood pressure 77 mm[Hg] Orestes JACQUES [facility] 06-19-2022 01:25-0400 Heart rate 69 /min Orestes JACQUES [facility] 06-19-2022 01:25-0400 Mean blood pressure 100 mm[Hg] Orestes JACQUES [facility] 06-19-2022 01:25-0400 Respiratory rate 16 /min Orestes JACQUES [facility] 06-19-2022 01:25-0400 SaO2% (BldA) [Mass fraction] 94 % Orestes JACQUES [facility] 06-19-2022 01:25-0400 Systolic blood pressure 145 mm[Hg] Orestes JACQUES [facility] 06-18-2022 21:35-0400 Heart rate 77 /min Orestes JACQUES [facility] 06-18-2022 21:34-0400 gluc 192 mg/dL Orestes JACQUES [facility] 06-18-2022 19:35-0400 Blood Pressure Location Orestes JACQUES [facility] 10-20-2022 19:35-0400 Body temperature 98.06 [degF] Orestes JACQUES [facility] 06-18-2022 19:35-0400 BP/Pulse Patient Position Orestes JACQUES [facility] 06-18-2022 19:35-0400 Heart rate 73 /min Orestes JACQUES [facility] 06-18-2022 19:35-0400 Mean blood pressure 115 mm[Hg] Orestes JACQUES [facility] 06-18-2022 19:35-0400 Respiratory rate 16 /min Orestes JACQUES [facility] 06-18-2022 19:35-0400 SaO2% (BldA) [Mass fraction] 93 % Orestes JACQUES [facility] 06-18-2022 16:07-0400 Mean blood pressure 121 mm[Hg] Orestes JACQUES [facility] 06-18-2022 13:10-0400 gluc 234 mg/dL Orestes JACQUES [facility] 06-18-2022 08:09-0400 Heart rate 71 /min Orestes JACQUES [facility] 06-17-2022 20:17-0400 Heart rate 89 /min Orestes JACQUES [facility] 06-17-2022 19:45-0400 Body temperature 98.42 [degF] Orestes JACQUES [facility] 06-17-2022 19:45-0400 Mean blood pressure 92 mm[Hg] Orestes JACQUES [facility] 06-17-2022 19:45-0400 Respiratory rate 21 /min Orestes [employer] [facility] 06-17-2022 19:30-0400 Mean blood pressure 103 mm[Hg] Orestes JACQUES [facility] 06-17-2022 19:30-0400 Respiratory rate 20 /min Orestes JACQUES [facility] 06-17-2022 19:25-0400 Respiratory rate 23 /min Orestes JACQUES [facility] 06-17-2022 19:18-0400 Body temperature 97.16 [degF] Orestes JACQUES [facility] 06-17-2022 13:50-0400 Heart rate 74 /min Orestes JACQUES [facility] 06-17-2022 13:35-0400 Body temperature 98.6 [degF] Orestes JACQUES [facility] 06-17-2022 13:35-0400 Heart rate 71 /min Orestes JACQUES [facility] 02-02-2022 11:31-0400 Diastolic blood pressure 87 mm[Hg] Feroz Hydean [facility] 02-02-2022 11:31-0400 Mean blood pressure 114 mm[Hg] Feroz Yury [facility] 02-02-2022 11:31-0400 Systolic blood pressure 167 mm[Hg] Mohbala Yury [facility] 02-02-2022 11:29-0400 Blood Pressure Location Feroz Yury [facility] 02-02-2022 11:29-0400 Diastolic blood pressure 100 mm[Hg] Feroz Yury [facility] 02-02-2022 11:29-0400 Heart rate 76 /min Feroz Yury [facility] 02-02-2022 11:29-0400 Respiratory rate 16 /min Feroz Cotton [facility] 02-02-2022 11:29-0400 SaO2% (BldA) [Mass fraction] 98 % Feroz Yury [facility] 02-02-2022 11:29-0400 Systolic blood pressure 171 mm[Hg] Feroz Yury [facility] 11-26-2021 11:06-0400 Blood Pressure Location Wendy Lue [facility] 11-26-2021 11:06-0400 Diastolic blood pressure 78 mm[Hg] Wendy Lue [facility] 11-26-2021 11:06-0400 Heart rate 68 /min Wendy Lue [facility] 11-26-2021 11:06-0400 Respiratory rate 16 /min Wendy Lue [facility] 11-26-2021 11:06-0400 Systolic blood pressure 132 mm[Hg] Wendy Lue [facility] 11-24-2021 08:56-0400 Diastolic blood pressure 76 mm[Hg] Feroz Cotton [facility] 11-24-2021 08:56-0400 Mean blood pressure 107 mm[Hg] Feroz Cotton [facility] 11-24-2021 08:56-0400 Systolic blood pressure 169 mm[Hg] Feroz Cotton [facility] 11-24-2021 08:54-0400 Blood Pressure Location Feroz Cotton [facility] 11-24-2021 08:54-0400 Diastolic blood pressure 99 mm[Hg] Feroz Cotton [facility] 11-24-2021 08:54-0400 Heart rate 74 /min Feroz Cotton [facility] 11-24-2021 08:54-0400 Respiratory rate 16 /min Feroz Cotton [facility] 11-24-2021 08:54-0400 SaO2% (BldA) [Mass fraction] 98 % Feroz Cotton [facility] 11-24-2021 08:54-0400 Systolic blood pressure 184 mm[Hg] Feroz Cotton [facility] 07-22-2021 12:44-0500 Body height 157.48 cm Albertina [employer] [facility] Work Phone: 07-22-2021 12:44-0500 Body mass index (BMI) [Ratio] 34.39 kg/m2 Albertina [employer] [facility] DO Work Phone: 07-22-2021 12:44-0500 Body surface area Derived from formula 1.86 m2 Albertina [employer] Work Phone: [facility] [employer] 600 DO Work Phone: 07-22-2021 12:44-0500 Body weight 85.28 kg Albertina [employer] [facility] 600 DO Work Phone: 07-22-2021 12:44-0500 Diastolic blood pressure 84 mm[Hg] Albertina R Kuns Work Phone: [facility] 600 DO Work Phone: 07-22-2021 12:44-0500 Heart rate 80 /min Albertina R Kuns Work Phone: [facility] 600 DO Work Phone: 07-22-2021 12:44-0500 Systolic blood pressure 124 mm[Hg] Albertina R Kuns Work Phone: [facility] 600 DO Work Phone: 07-10-2021 14:08-0500 Body height 157.48 cm Albertina R Kuns Work Phone: [facility] 600 DO Work Phone: 07-10-2021 14:08-0500 Body mass index (BMI) [Ratio] 33.84 kg/m2 Albertina R Kuns Work Phone: [facility] 600 DO Work Phone: 07-10-2021 14:08-0500 Body surface area Derived from formula 1.85 m2 Albertina R Kuns Work Phone: [facility] 600 DO Work Phone: 07-10-2021 14:08-0500 Body weight 83.92 kg Albertina R Kuns Work Phone: [facility] 600 DO Work Phone: 07-10-2021 14:08-0500 Diastolic blood pressure 80 mm[Hg] Albertina R Kuns Work Phone: [facility] 600 DO Work Phone: 07-10-2021 14:08-0500 Heart rate 50 /min Albertina R Kuns Work Phone: [facility] 600 DO Work Phone: 07-10-2021 14:08-0500 Systolic blood pressure 126 mm[Hg] Albertinamal Arndt Work Phone: [facility] 600 DO Work Phone: Encounters Encounter Date Encounter Type Care Provider Facility Start: 03-13-2024 ambulatory Glynn DENT Angelici ty:[id number] Start: 02-25-2024 End: 02-25-2024 ambulatory MARCO KURTZ Not Available Start: 02-19-2024 End: 02-23-2024 Evaluation and management of inpatient LEONEL Corona Facility:[facility] [place] Start: 02-19-2024 Emergency department patient visit Stacieshaila Burger Christiano Facility:[facility] [place] Start: 02-19-2024 End: 02-23-2024 Evaluation and management of inpatient Glynn ALARCON [facility] Start: 08-19-2023 ambulatory Wendy Gold Facility:[facility] Start: 08-05-2023 End: 08-05-2023 Admission to same day surgery center Orestes JACQUES [facility] Start: 08-05-2023 End: 08-05-2023 ambulatory Orestes JACQUES Facility:[facility] [place] Start: 08-04-2023 End: 08-04-2023 ambulatory Albertinamal Arndt Facility:[facility] Start: 08-04-2023 End: 08-04-2023 ambulatory DO Albertina Kuns Work Phone: [facility] Work Phone: Start: 08-04-2023 End: 08-04-2023 Patient encounter procedure DO Albertina Kuns Work Phone: [facility] [place] Work Phone: Start: 07-28-2023 End: 07-28-2023 Office outpatient visit 15 minutes Sterling Florian DO Work Phone: [facility] Comment on above: 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; S/P CABG x 4; Type 2 diabetes mellitus with other specified complication, with long-term current use of insulin ([facility]); Mixed hyperlipidemia; Primary hypertension; History of HI (myocardial infarction) Start: 07-23-2023 End: 07-23-2023 ambulatory Orestes JACQUES Facility:[facility] [place] Start: 07-23-2023 End: 07-23-2023 Patient encounter procedure Orestes JACQUES [facility] Start: 07-15-2023 End: 07-15-2023 ambulatory Orestes JCAQUES Facility:CD:[id number] Start: 07-02-2023 End: 07-02-2023 ambulatory Orestesmoiz JACQUES Facility:[facility] [place] Start: 06-30-2023 Telephone encounter Albertina Arndt [facility] [place] Start: 06-30-2023 End: 06-30-[address] [facility] Other Start: 06-30-2023 End: 06-30-2023 Patient encounter procedure Orestes JACQUES [facility] Start: 06-21-2023 End: 06-21-2023 ambulatory Garrett Palmer Other [place] [employer] Other Start: 06-21-2023 Telephone encounter Garrett Palmer [facility] Start: 06-10-2023 End: 06-10-2023 ambulatory Orestesmoiz JACQUES Facility:[facility] [place] Start: 06-10-2023 End: 06-10-2023 Patient encounter procedure Orestes JACQUES [facility] Start: 06-08-2023 End: 06-08-2023 ambulatory Albertina Arndt Other [facility] Other Start: 06-08-2023 Telephone encounter Albertina Arndt [facility] Start: 05-27-2023 End: 06-02-2023 Evaluation and management of inpatient Paola Woods Facility:[facility] [place] Start: 05-26-2023 End: 06-02-2023 Evaluation and management of inpatient Paola Woods [facility] Start: 05-25-2023 End: 05-25-2023 ambulatory Glynn DENT Facility:[facility] [place] Start: 05-25-2023 End: 05-25-2023 Patient encounter procedure Glynn DENT [facility] Start: 05-24-2023 ambulatory Wendy Gold Facility:[facility] [place] Start: 05-17-2023 Telephone encounter Albertina Arndt [facility] Start: 05-17-2023 End: 05-17-[address] [facility] Other Start: 05-17-2023 End: 05-17-2023 Patient encounter procedure Glynn DENT [facility] Start: 05-09-2023 End: 05-11-2023 ambulatory Alaa NIKOMARCIANO Facility:[facility] [place] Start: 05-09-2023 End: 05-11-2023 Observation Alaa [facility] Start: 03-29-2023 Documentation procedure Mammog elvia Coordinator [facility] Start: 03-29-2023 Letter encounter Mammography Coordinator [facility] Start: 03-26-2023 End: 03-26-[address] [facility] Other Start: 03-26-2023 Telephone encounter Albertina Arndt [facility] Start: 03-26-2023 End: 03-26-2023 Subsequent hospital visit by physician Screen/Diag Mammo [facility] Work Phone: [facility] Radiology Mammography Comment on above: Z12.31 ENCOUNTER SCR EENING MAMMOGRAM FOR BREAST CANCER Start: 11-24-2022 Telephone encounter Albertina PELAYO [facility] [place] Start: 11-24-2022 End: 11-24-2022 ambulatory DO Albertina Laneeric Work Phone: [facility] Work Phone: Start: 11-24-2022 End: 11-24-2022 Patient encounter procedure DO Albertina Hair Work Phone: [facility] [place] Work Phone: Start: 11-17-2022 End: 11-17-2022 Patient encounter procedure Wendy Gold [facility] Start: 11-13-2022 End: 11-14-2022 Emergency department patient visit Blaire Danuta Louis [facility] Start: 10-29-2022 End: 10-29-2022 Patient encounter procedure Wendy Gold [facility] Start: 10-14-2022 End: 10-14-2022 Patient encounter procedure Wendy Gold [facility] Start: 08-19-2022 End: 08-19-2022 Patient encounter procedure Wendy Gold [facility] Start: 07-29-2022 Office outpatient vi sit 15 minutes Albertina Arndt Work Phone: [place] [id number] DO Work Phone: Start: 07-29-2022 ambulatory Albertina Arndt Facili ty: Start: 07-13-2022 End: 07-13-2022 Patient encounter procedure Wendy Gold [facility] Start: 07-06-2022 End: 07-06-2022 Patient encounter procedure Orestes JACQUES [facility] Start: 06-17-2022 End: 06-19-2022 Evaluation and management of inpatient Orestes JACQUES [facility] Start: 06-08-2022 End: 06-08-2022 Patient encounter procedure Wendy Gold [facility] Start: 04-02-2022 Rx Renewal Albertina Arndt Work Phone: [facility] 250 DO Work Phone: Start: 02-02-2022 End: 02-02-2022 Patient encounter procedure Feroz Cotton [facility] Start: 01-28-2022 Documentation procedure Mammog elvia Coordinator [facility] Start: 01-28-2022 Letter encounter Mammography Coordinator [facility] Department Start: 01-28-2022 End: 01-28-2022 Subsequent hospital visit by physician Screen Mammo [facility] Mamm[facility] Start: 12-26-2021 Rx Renewal [facility] Work Phone: Start: 12-17-2021 End: 12-17-2021 ambulatory Albertina Arndt Other [facility] Other Start: 12-17-2021 [facility] Start: 12-10-2021 End: 12-10-2021 Patient encounter procedure Feroz Cotton [facility] Start: 11-26-2021 End: 11-26-2021 Patient encounter procedure Wendy Gold [facility] Start: 11-24-2021 End: 11-24-2021 Patient encounter procedure Feroz Cotton [facility] Start: 11-17-2021 End: 11-17-2021 Patient encounter procedure Wendy Gold [facility] Start: 10-15-2021 Telephone encounter Albertina talbert [facility] Work Phone: Start: 10-07-2021 End: 10-08-2021 ambulatory WENDY GOLD . Facility:[facility] Start: 10-06-2021 End: 10-06-2021 ambulatory Albertina Arndt Other [facility] Other Start: 10-06-2021 Telephone encounter Albertina Arndt [facility] Start: 09-19-2021 ambulatory Albertina Arndt Facili ty: Start: 09-08-2021 Rx Renewal Albertina [facility]ndt [facility] Work Phone: Start: 08-20-2021 End: 08-21-2021 ambulatory KANWAL THIBODEAUX Facility:[facility] Start: 08-08-[address] STERLING FLORIAN Fa cility:[facility] Start: 07-22-2021 EPV, Provider: Kanwal Shah, Status: Pen, Time: 12:30 PM Albertina R Kuns Work Phone: [facility] 250 DO Work Phone: Start: 07-22-2021 Office outpatient vi sit 15 minutes Albertnia R Kuns Work Phone: [facility] 600 DO Work Phone: Start: 07-21-2021 Chart Update Albertina R Kuns Work Phone: [facility] 250 DO Work Phone: Start: 07-16-2021 NURSEVST, Provider: SILVIANO HOUSTON INTERVENTION ANALYST 1,[id number], Status: Pen, Time: 1:30 PM Albertina R Kuns Work Phone: [facility] 250 DO Work Phone: Start: 07-14-2021 Chart Update Albertina R Kuns Work Phone: [facility] 250 DO Work Phone: Start: 07-10-2021 Office outpatient vi sit 25 minutes Albertina R Kuns Work Phone: [facility] 250 DO Work Phone: Start: 07-10-2021 Patient encounter procedure Albertina R Kuns Work Phone: [facility] [facility] 600 DO Work Phone: Start: 06-12-2021 Telephone encounter Albertinamal Shermans [facility] [place] Start: 07-07-2017 Ambulatory PROVIDER UNKNOWN Facili ty:[id number] Start: 04-22-2017 Ambulatory KANWAL MANN Facility: [id number] Start: 01-01-2004 Evaluation and manag ement of inpatient DO Albertina Kuns Work Phone: [facility] Work Phone: Procedures Date Procedure Procedure Detail Performing Clinician Start: 07-27-2023 History of coronary artery bypass grafting S/P CABG x 4 Sterling Florian DO Work Phone: Start: 06-29-2023 History of percutane ous transluminal coronary angioplasty History of PTCA Sterling Florian DO Work Phone: Start: 05-27-2023 Cystoscopy Paola kothari Start: 03-26-2023 End: 03-26-2023 Mammography Albertina Arndt Work Phone: Start: 06-17-2022 Cystoscopy Orestes CABRERA Start: 01-28-2022 End: 01-28-2022 Mammography [facility] [...] Atherectomy 1 W ith Stent Placement Albertina R Lanes Work Phone: section Albertina Sherman s Work Phone: Comment on above: x2; section Wendy Gold Colonoscopy Albertina Arndt Work Phone: Comment on above: [id number] C linic; Coronary artery bypa ss graft operation planned Wendy Gold History of coronary artery bypass grafting S/P CABG x 4 Albertina R Hair Work Phone: History of coronary artery bypass grafting S/P CABG x 4 Sterling Eric Anival ALEX Work Phone: History of percutane ous transluminal coronary angioplasty History of PTCA Albertina Arndt Work Phone: Lithotripsy Albertina Arndt Work Phone: Screening for malign ant neoplasm of breast Albertina Arndt Other Screening for malign ant neoplasm of breast Albertinamal Arndt Other Transurethral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 modification changes in the outpatient setting 17. On deep vein thrombosis (DVT) prophylaxis (Z79.899: Other nursing home (current) drug therapy) SCDs Hydronephrosis with ureteral [...] antifungals with caspofungin. Infectious disease consulted. Ordered: Sbsq Hospital Care/Day Moderate 35 Minutes 74577 2. Fungemia (B49: Unspecified mycosis) Present on admission secondary to fungi urinary tract infection/UPJ stone. Infectious disease consulted. I spoke with infectious disease specialist patient will require IV antifungal x2 weeks. Patient will require PICC line eventually when repeat blood culture is negative. I ordered repeat blood culture. Ordered: Sbsq Hospital Care/Day Moderate 35 Minutes 85541 3. Acute UTI (urinary tract infection) (N39.0: [...] infection and in keeping with fungemia. Ordered: Sbsq Hospital Care/Day Moderate 35 Minutes [id number] 4. GIOVANNY (acute kidney injury) (N17.9: Acute kidney failure, unspecified) Secondary to ATN from sepsis and urinary tract obstruction. Resolved. At baseline.. Treated with IV fluid. Avoid nephrotoxic drugs. Ordered: eGFR Extra Lav Tube Sbsq Hospital Care/Day Moderate 35 Minutes 78456 5. Left renal stone (N20.0: Calculus of kidney) Left UPJ stone present on admission. Status post JJ stent placement. Follow-up with urologist for outpatient treatment of stone. Ordered: [facility] Hospital Care/Day Moderate 35 Minutes 68465 6. Hydronephrosis of left kidney (N13.30: Unspecified [...] artery disease (I25.10: Atherosclerotic heart disease of [place] coronary artery without angina pectoris) Stable. Continue on Plavix and metoprolol 15. Hyperlipidemia (E78.5: Hyperlipidemia, unspecified) On Lipitor. 16. Obesity due to excess calories (E66.09: Other obesity due to excess calories) Recommend therapeutic lifestyle modification changes. 17. On deep vein thrombosis (DVT) prophylaxis (Z79.899: Other intermodal dispatcher (current) drug therapy) SCDs. Disposition: Home early [...] made to ensure accuracy. However inadvertent computerized environmental advisor errors may be present. Felice Marx. Hospitalist. [...] Capillary Glucose POC Extracted from: Title:APSO Note Author:Felice MARX MD [...] IV fluid, IV antibiotics. Follow cultures. Ordered: [facility] Hospital Care/Day Moderate 35 Minutes 48734 2. Acute UTI (urinary tract infection) (N39.0: Urinary tract infection, site not specified) Staphylococcus coagulase-negative urinary tract infection secondary to retained stone. Present on admission. Continue on IV Zosyn pending final urine culture result. Ordered: [facility] Hospital Care/Day Moderate 35 Minutes [id number] 3. GIOVANNY (acute kidney injury) (N17.9: Acute kidney failure, unspecified) Acute kidney injury secondary to ATN from above sepsis and urinary tract obstruction. Improving. Avoid nephrotoxic drugs. Treating with IV fluid. Ordered: Basic Metabolic Panel eGFR [facility] Hospital Care/Day Moderate 35 Minutes [id number] 4. Left renal stone (N20.0: Calculus of kidney) Left UPJ stone present on admission. Status post JJ stent placement. Follow-up with urologist for outpatient treatment of stone. Ordered: [facility] Hospital Care/Day Moderate 35 Minutes 06506 5. Hydronephrosis of left kidney (N13.30: Unspecified hydronephrosis) Mild left hydronephrosis. Status post JJ stent placement. Ordered: [facility] Hospital Care/Day Moderate 35 Minutes [id number] 6. Hypokalemia (E87.6: Hypokalemia) Potassium level 3.4. [...] artery disease (I25.10: Atherosclerotic heart disease of [place] coronary artery without angina pectoris) Stable. Continue on Plavix and metoprolol. 13. Hyperlipidemia (E78.5: Hyperlipidemia, unspecified) On Lipitor. 14. Obesity due to excess calories (E66.09: Other obesity due to excess calories) Recommend therapeutic lifestyle modification changes. 15. On deep vein thrombosis (DVT) prophylaxis (Z79.899: Other intermodal dispatcher (current) drug therapy) SCDs. Disposition: Hopefully home in a.m. pending final urine culture result. Physical therapy evaluation for discharge planning. I discussed the diagnosis and plan of care with the patient at the bedside. Moderate level of MDM based on addressing above issues. This documentation was transcribed using voice recognition software. Several attempts were made to ensure accuracy. However inadvertent computerized environmental advisor errors may be present. Felice Marx. Hospitalist. [...] Catheter Insertion Addendum by Iris MARX MD fo on May 29, 2023 15:19:54 EDT - [...] with coronary artery disease. Follow cultures. Ordered: [facility] Hospital Care/Day High 50 Minutes [id number] 2. Acute UTI (urinary tract infection) (N39.0: Urinary tract infection, site not specified) Acute urinary tract infection secondary to retained stone. Continue on IV Zosyn pending final urine culture result. Ordered: [facility] Hospital Care/Day High 50 Minutes 29903 3. GIOVANNY (acute kidney injury) (N17.9: Acute kidney failure, unspecified) Acute kidney injury secondary to ATN from above sepsis and urinary tract obstruction. Avoid nephrotoxic drugs. Continue on IV fluid. BMP in AM. Ordered: Basic Metabolic Panel [facility] Hospital Care/Day High 50 Minutes 48020 4. Left renal stone (N20.0: Calculus of kidney) Left UPJ stone present on admission. Status post cystoscopy with JJ stent placement. Urology consult reviewed by me. I appreciate and agree with recommendations. Follow-up with urologist as outpatient for stone treatment. Ordered: [facility] Hospital Care/Day High 50 Minutes 25782 5. Hydronephrosis of left kidney (N13.30: Unspecified hydronephrosis) Mild left hydronephrosis secondary to above #4. Status post JJ stent placement. Ordered: [facility] Hospital Care/Day High 50 Minutes 89759 6. Leukocytosis (D72.829: Elevated white blood cell [...] artery disease (I25.10: Atherosclerotic heart disease of [place] coronary artery without angina pectoris) Continue on Plavix, metoprolol. 11. Hyperlipidemia (E78.5: Hyperlipidemia, unspecified) On Lipitor. 12. Obesity due to excess calories (E66.09: Other obesity due to excess calories) Recommend therapeutic lifestyle modification changes. 13. On deep vein thrombosis (DVT) prophylaxis (Z79.899: Other nursing home (current) drug therapy) SCDs. I discussed the diagnosis and plan of care with the patient at the bedside. High Level of MDM based on addressing above issues. This documentation was transcribed using voice recognition software. Several attempts were made to ensure accuracy. However inadvertent computerized environmental advisor errors may be present. Felice Marx. Hospitalist. [...] Post Op - General [facility] In[facility] , [facility] Date:05/27/23 Plan Transfer/Discharge: Transfer/Discharge Discharge when meets criteria ( To home ). Extracted from: Title:Urology Consult and H&P 2 Author:GEORGIE CHISHOLM, Orestes Muñiz Date:05/27/23 Impression and Plan Diagnosis Acute sepsis (EDO00-CU A41.9, Working, Medical). Acute UTI (urinary tract infection) (HFZ23-HH N39.0, Discharge, Medical). GIOVANNY (acute kidney injury) (NKW42-OK N17.9, Discharge, Medical). Hydronephrosis with ureteral calculus (BHY13-LR N13.2, Working, Medical). Obesity due to excess calories (JTY36-YV E66.09, Discharge, Medical). Course: Worsening, Discussed with [...] Author:Alan souza MD, Jossy Greene Date:05/27/23 Plan [place] [employer] Anesthesiologists (ASA) physical status classification: [...] artery disease (I25.10: Atherosclerotic heart disease of [place] coronary artery without angina pectoris) Hold Plavix, [...] Future Appointments Appointment Date:08/19/2023 01:15:00 PM Scheduled Provider:Asif CHISHOLM, Wendy Bay Location:[facility] Appointment Type:URO Office Visit Future Scheduled Tests Laboratory* Basic Metabolic Panel 06/26/22 Radiology* XR Abdomen 1 View 05/28/23 * CTA Abdomen 01/24/24 [facility]10-04-2023 Hospital Discharge instructions Patient Education 06/02/2023 [...] Treatment for this condition includes: Antibiotic medicine. Avfn-rjt-bztssur medicines to treat discomfort. Drinking enough water [...] Follow these instructions at home: Medicines Take wymb-ony-zaezoja and prescription medicines only as told by [...] provider. Document Revised: 03/28/2021 Document Reviewed: 03/28/2021 [employer] Patient Education 2022 [employer]. 06/02/2023 11:27:01 Sepsis, Self Care, Adult Sepsis, [...] Follow these instructions at home: Medicines Take ippv-nvk-uahcgrk and prescription medicines only as told by [...] and water are not available, use hand credit verification clerk. Practice good hygiene. Keep cuts clean and [...] department or: Call your local emergency services (371 in the [place] Call a suicide crisis helpline, such as the National Suicide Prevention Lifeline at or 399 in the [place] This is open 24 hours a day. Text the Crisis Text Line at 769692 (in the [place] Summary Sepsis is a [...] provider. Document Revised: 03/11/2022 Document Reviewed: 06/30/2021 [employer] Patient Education 2022 [employer]. Follow Up Care 05/26/2023 15:42:08 With:ALBERTINA ARNDT Address: [address] [place] [address] Business (1) When: Unknown Comments:Call for followup appointment [facility]10-04-2023 NotePatient provided discharge education and instructions on right midline. Report called to Kalpana RN at [facility]. Pt denies any questions at this time. Pt transported to patient pickup via wheelchair.[facility]09-28-2023 NoteFisher [facility] on [facility]:Result Comment: Electronically Signed By: Chuck CHISHOLM, Paola\.hector\Date and Time Signed: 05/27/23 02:02 [id number] Hospital Discharge instructions Patient Education 05/25/2023 09:21:01 [...] With:Glynn DENT Address: [facility] [address] [place] [address]- Business (1) When:08/24/2023 09:20:42 Comments:Follow-up is to be with Dr. Matthew Bustamante - [facility]-26-2023 Note [id number]:127[facility] 05-11-2023 Evaluation + Plan noteExtracted from: Title:Discharge [...] EDT [facility] [address], [place] [address]- Business (1) Additional Instructions: ALBERTINA ARNDT 05/17/2023 09:30 AM EDT [address] [place] [address]- Business (1) Additional Instructions: Extracted from: Title:APSO Note Author:ROSEMARY CHISHOLM, Ck Date: 1. Left ureteral calculus (N 20.1: Calculus of ureter) - UTI present on admission secondary to left ureteral calculus causing left hydroureteronephrosis - POD #1 s/p 1. Cystoscopy. 2. Left rigid ureteral dilation. 3. Left ureteroscopy. 4. Holmium laser lithotripsy of left ureteral calculus. 5. Stone basket extraction. 6. Placement of 6 Palauan variable length left ureteral stent. with Dr. [...] artery disease (I25.10: Atherosclerotic heart disease of [place] coronary artery without angina pectoris) - stable [...] Adult Author:Gino Gonzales Jr., DO Date:05/09/23 Plan [place] [employer] of Anesthesiologists (ASA) physical status classification: [...] Hyperlipidemia, unspecified) Resume Lipitor 7. CAD in [place] artery (I25.10: Atherosclerotic heart disease of [place] coronary artery without angina pectoris) Resume Lopressor [...] Vital Signs Weight Extracted from: Title:ED Note Author:Harriet CASTANEDA, Lazara Coles Date:05/09/23 1. Hydroureteronephrosis (N1 3.30: Unspecified hydronephrosis) [...] Date:05/17/2023 01:30:00 PM Scheduled Provider:Glynn DENT MD Location:[facility] Appointment Type:URO Office Visit Appointment Date:05/24/2023 01:45:00 PM Scheduled Provider:Wendy Gold MD Location:[facility] Appointment Type:URO Office Visit Diagnostic Tests Pending * Calculi Analysis Urinary 05/09/23 Future Scheduled Tests Laboratory* Basic Metabolic Panel 06/26/22 Radiology* CTA Abdomen 01/24/24 [facility]09-12-2023 NoteCRM entered the room to discuss dc planning. PCP, DME and insurance discussed. Patient is alert andinvolved in plan of care. Contact information provided and whiteboard updated. Pt will dc today no needs. CRM to follow.[facility] CenterComment on above:Result Comment: Electronically Signed By: Rayne Carpenter\Date and Time Signed: 05/11/23 13:40 [id number] Hospital Discharge instructions Follow Up Care 05/11/2023 08:20:52 With:JAILENE CHISHOLM, Glynn Mcdermott, ONUR Address: [facility] [address] [place] [phone] When: Unknown [facility] 09-12-2023 [facility]:Result Comment: Electronically Signed By: Ck RILEY MD\.br\Date and Time Signed: 05/11/23 08:39 [id number] NoteAttempted PT Evaluation, but pt reports she is still Independent but performs slowly . Pt denies needing PT services. No evaluation givenSamaritan North [facility] Center09-10-2023 [facility]Comment on above:Result Comment: Electronically Signed By: JEREMIAH CHISHOLM, Margareth\.br\Date and Time Signed: 05/09/23 12:[id number] Hospital Discharge instructions Follow Up Care 05/09/2023 08:14:22 With:ALBERTINA ARNDT Address: [address] [place] [address]- Business (1) When:05/17/2023 09:30:00 With:Glynn DENT Address: [facility] [address] [place] [address]- Business (1) When:05/17/2023 13:30:00 [facility]07-31-2023 Miscellaneous Notes* Letter - Coordinator, Mammography - 03/29/2023 8:29 AM EDT March 30, 2023 PID: [id number] Shahana Grace [address] [place] [id number] Dear Ms. Grace, We are pleased to [...] report will be kept on file at [facility] as part of your permanent medical record and are available for your continuing care. Thank you for allowing us to help in meeting your health care needs. Sincerely, Dr. Costa Interpreting Radiologist [facility] (Normal over 40) documented in this encounterAdena [facility]07-28-2023 NoteHNO ID: [id number] Author: Izabela Cardona I, RT(Baldemar) Service: Radiology Author Type: Technologist Type: Progress [...] IV DATA: Not applicable SIGNED BY: RT Mar(Baldemar) March 26, 2023 1:50 [facility] [id number] Evaluation note* Encounter Date Diagnosis Assessment Notes Treatment Notes Treatment Clinical Notes Feb, Encounter for screening mammogram for malignant neoplasm of breast (ICD-10 - Z12.31) [employer] Other [id number] History of Present illness Narrative* Izabela Cardona [...] 26, 2023 1:50 PM documented in this encounterAdena [facility]03-28-2023 Evaluation note* Encounter Date Diagnosis Assessment Notes Treatment Notes Treatment Clinical Notes Oct, Urinary tract infection, site not specified (ICD-10 - N39.0) Oct, Hematuria, unspecified (ICD-10 - R31.9) [employer] Other [id number] Evaluation + Plan noteExtracted from: Title:ED Note [...] day(s), # 15 cap(s), Refills(s) 0, Pharmacy: [id number], 157, cm, 11/13/22 23:40:00 EDT, Height/Length Dosing, 83.2, kg, 11/13/22 23:40:00 EDT, Weight Dosing cephalexin, 500 mg = 1 cap(s), Cap, Oral, Once, Stop date 11/14/22 2:04:00 EDT, STAT, Start date 11/14/22 2:04:00 EDT, 03/18/23 2:04:00 EDT meclizine, 12.5 mg = 1 tab(s), Oral, TID, PRN for dizziness, # 15 tab(s), Refills(s) 0, Pharmacy: [id number], 157, cm, 11/13/22 23:40:00 EDT, Height/Length [...] Appointments Appointment Date:11/17/2022 10:00:00 AM Scheduled Provider: [facility] Appointment Type:US Abdominal/Pelvis () Appointment Date:02/08/2023 12:30:00 PM Scheduled Provider:Asif CHISHOLM, Wendy Bay Location:[facility] Appointment Type:URO Office Visit Diagnostic Tests Pending * Urine Culture 11/14/22 Future Scheduled Tests Laboratory* PTH Intact 4/1/23 * Basic Metabolic Panel 06/26/22 * Basic Metabolic Panel 11/28/22 * Uric Acid 11/28/22 Radiology* XR Abdomen 1 View 11/17/21 * XR Abdomen 1 View 12/12/22 * US Renal 11/17/22 * CTA Abdomen 01/24/24 [facility]03-18-2023 Hospital Discharge instructions Patient Education 11/14/2022 02:43:38 Vertigo, Kvqr-yk-Jvlh Vertigo Vertigo is the feeling that you [...] if you feel dizzy. General instructions Take qzia-ieq-bbufyyi and prescription medicines only as told by [...] 05/25/2009 Document Revised: 07/10/2019 Document Reviewed: 07/10/2019 [employer] Patient Education 2020 [employer]. 11/14/2022 02:43:38 Urinary Tract Infection, Adult, Zuyr-gh-Hmmt Urinary Tract Infection, Adult A urinary tract [...] Follow these instructions at home: Medicines Take taos-rzy-ouhvyuq and prescription medicines only as told by [...] 02/01/2009 Document Revised: 08/03/2019 Document Reviewed: 02/23/2019 [employer] Patient Education 2020 [employer]. 11/14/2022 02:43:38 Head Injury, Adult, Mepc-on-Jneq Head Injury, Adult There are many types [...] or school. Ask your doctor for a tsel-or-dtuh plan for slowly going back to your [...] your friends, family, a trusted coworker, and piece work checker about your injury, symptoms, and limits (restrictions). Have them watch for any problems that are new or getting worse. General instructions Take ywty-yaw-nrvfwba and prescription medicines only as told by [...] 07/29/2009 Document Revised: 12/07/2019 Document Reviewed: 09/08/2019 [employer] Patient Education 2020 [employer]. 11/14/2022 02:43:38 Dehydration, Elderly, Khdc-ck-Rqjk Dehydration Dehydration is when there is not [...] a lot of fat or sugar. Take asvc-jed-ftlrrqx and prescription medicines only as told by [...] 08/04/2012 Document Revised: 07/29/2018 Document Reviewed: 10/09/2016 [employer] Patient Education 2020 [employer]. Follow Up Care 11/13/2022 23:08:03 With:ALBERTINA ARNDT Address: [address] [place], [place] [phone] Business (1) When:11/17/2022 Comments:Take the antibiotics 3 [...] ED for any new or worsening symptoms. [facility]03-02-2023 Hospital Discharge instructions Patient Education 10/29/2022 09:23:21 Kidney Stones, Oghu-sm-Otoa Kidney Stones Kidney stones are rock-like masses [...] Follow these instructions at home: Medicines Take tpeq-flq-hyyncgp and prescription medicines only as told by [...] 02/01/2009 Document Revised: 01/02/2020 Document Reviewed: 01/02/2020 [employer] Patient Education 2019 [employer]. Follow Up Care 10/13/2022 15:07:33 With:Asif CHISHOLM, ONUR Julio, URO Address: When: Unknown [facility] 12-21-2022 Hospital Discharge instructions Patient Education 08/19/2022 12:09:01 Kidney Stones, Ecwi-wz-Djyo Kidney Stones Kidney stones are rock-like masses [...] Follow these instructions at home: Medicines Take lbqu-axd-byoqqyv and prescription medicines only as told by [...] 02/01/2009 Document Revised: 01/02/2020 Document Reviewed: 01/02/2020 [employer] Patient Education 2019 [employer]. Follow Up Care 07/13/2022 14:03:46 With:Lue MD, ONUR Julio, URO Address: [address], [facility] [place] [phone] When:Within 2 Month(s) [facility] 11-14-2022 Hospital Discharge instructions Patient Education [...] include: ?Spinach. ?Rhubarb. ?Beets. ?Potato chips and sami fries. ?Nuts. If you regularly take a diuretic medicine, make sure to eat at least 1 2 fruits or vegetables high in potassium each day. These include: ?Avocado. ?Banana. ?Cecil, prune, carrot, or tomato juice. ?Baked potato. [...] Casseroles. Pizza. Lasagna. Frozen meals. Potato chips. Palauan fries. Summary You can reduce your risk [...] 12/11/2011 Document Revised: 12/06/2019 Document Reviewed: 07/27/2017 [employer] Patient Education 2019 [employer]. Follow Up Care 11/26/2021 11:40:44 With:Asif CHISHOLM, ONUR Julio, URO Address: When: Unknown [facility] 11-07-2022 Hospital Discharge instructions Patient Education [...] already done so. Have a great day. [facility]10-21-2022 Evaluation + Plan noteExtracted from: Title:Discharge Note Author:JEREMIAH CHISHOLM, Margareth Misbah e:06/19/22 Good Discharge To, Anticipated II [...] Daily With When Contact Information Orestes JACQUES [facility] [email or web address] [address] [place], [place] [phone]- Business (1) Additional Instructions: scope and removal of the stent under local anesthesia within a couple weeks or so.This office will call you to schedule this. ALBERTINA ARNDT [address] [place] [address]- Business (1) Additional Instructions: Only if needed. Renal Colic, Ojck-uf-Jafs Lithotripsy Laser Therapy for Kidney Stones Kidney Stones, Bemk-ys-Wzec Dietary Guidelines to Help Prevent Kidney Stones Discharge time >30 min Extracted from: Title:ANES POSTOP Author:Johnny Bruce DO Date: 06/17/22 Plan Transfer/ Discharge: Patient can be discharged from PACU when criteria met. Condition good. Extracted from: Title:Urology Consult and H&P 2 Author:Orestes JACQUES MD Date:06/17/22 Impression and Plan Diagnosis Acute renal failure (SHA13-WI N17.9, Discharge, Medical). Hydronephrosis with ureteral calculus (XNN56-XZ N13.2, Working, Medical). Kidney stones (QQL02-OF N20.0, Working, Medical). Complaint of Flank pain (PNED [id number], Reason For Visit, Nursing). Leukocytosis (SMS24-LI D72.829, Discharge, Medical). UTI (urinary tract infection) (VPH19-PJ N39.0, Discharge, Medical). Course: Worsening, Reviewed CT [...] Title:ANES PREOP Author:Johnny Bruce DO Date: Plan [place] [employer] of Anesthesiologists (ASA) physical status classification: [...] artery disease) (I25.10: Atherosclerotic heart disease of [place] coronary artery without angina pectoris) Continue Plavix Lopressor 9. Obesity (E66.9: Obesity, unspecified) Lifestyle modification 10. DVT prophylaxis (Z29.9: Encounter for prophylactic measures, unspecified) SCD Future Appointments Appointment Date:07/13/2022 01:00:00 PM Scheduled Provider:Wendy Gold MD Location:[facility] Appointment Type:URO Office Visit Diagnostic Tests Pending * Calculi Analysis Urinary 06/17/22 Future Scheduled Tests Laboratory* Basic Metabolic Panel 06/26/22 Radiology* XR Abdomen 1 View 11/17/21 * CV Peripheralvascular 10/14/21 * CTA Abdomen 01/24/24 [facility]10-21-2022 Hospital Discharge instructions Patient Education 06/19/2022 10:34:29 Renal Colic, Utey-rc-Xwie Renal Colic Renal colic is pain that is caused by a kidney stone. The pain can be sharp and very bad. It may befelt in the back, belly, side (flank), or groin. It can cause nausea. Renal colic can come and go. Follow these instructions at home: Medicines Take bclh-cyf-msoazgf and prescription medicines only as told by [...] is caused by a kidney stone. Take qkxs-ngl-vldtpfw and prescription medicines only as told by [...] 02/01/2009 Document Revised: 09/13/2018 Document Reviewed: 09/13/2018 [employer] Patient Education 2020 [employer]. 06/19/2022 10:34:28 Lithotripsy Lithotripsy Lithotripsy is a [...] including vitamins, herbs, eye drops, creams, and svme-bya-phfqzlo medicines. Any blood disorders you have. Any [...] 08/13/2001 Document Revised: 11/27/2019 Document Reviewed: 07/07/2017 [employer] Patient Education 2020 [employer]. 06/19/2022 10:34:26 Laser Therapy for Kidney Stones [...] including vitamins, herbs, eye drops, creams, and cmap-fcl-cdpyagm medicines. Any problems you or family members [...] provider tells you to take them. ?Taking dpbh-ujt-qnbzsxo medicines, vitamins, herbs, and supplements. Eating and [...] 09/11/2016 Document Revised: 04/27/2019 Document Reviewed: 04/27/2019 [employer] Patient Education 2020 [employer]. 06/19/2022 10:34:24 Kidney Stones, Chhi-gi-Eflt Kidney Stones Kidney stones are rock-like masses [...] Follow these instructions at home: Medicines Take ybhs-gbg-mnwkfdi and prescription medicines only as told by [...] 02/01/2009 Document Revised: 01/02/2020 Document Reviewed: 01/02/2020 [employer] Patient Education 2020 [employer]. 06/19/2022 10:34:21 Dietary Guidelines to Help Prevent [...] include: ?Spinach. ?Rhubarb. ?Beets. ?Potato chips and sami fries. ?Nuts. If you regularly take a diuretic medicine, make sure to eat at least 1 2 fruits or vegetables high in potassium each day. These include: ?Avocado. ?Banana. ?Cecil, prune, carrot, or tomato juice. ?Baked potato. [...] Casseroles. Pizza. Lasagna. Frozen meals. Potato chips. Palauan fries. Summary You can reduce your risk [...] 12/11/2011 Document Revised: 12/06/2019 Document Reviewed: 07/27/2017 [employer] Patient Education 2020 [employer]. Follow Up Care 06/17/2022 13:29:38 With:Orestes JACQUES Address: [address] [address]- Business (1) When: Unknown Comments:scope and removal of the stent under local anesthesia within a couple weeks or so.This office will call you to schedule this. With:ALBERTINA ARNDT Address: [address] [place] [address]- Business (1) When: Unknown Comments:Only if needed. [facility]06-01-2022 Miscellaneous Notes* Letter - Mammography Coordinator - 01/28/2022 2:40 PM EDT January 28, 2022 PID: [id number] Shahana Grace [address] [place] [address] Dear Ms. Grace, We are pleased to [...] report will be kept on file at [facility] as part of your permanent medical record and are available for your continuing care. Thank you for allowing us to help in meeting your health care needs. Sincerely, Dr. Green Interpreting Radiologist [facility] (Normal over 40) documented in this encounterAdena [facility]06-01-2022 NoteHNO ID: [id number] Author: Selena Wu, RT(R) Service: ? Author Type: Technologist Type: Progress [...] BY: RT Gavino(R) January 28, 2022 12:51 [facility]06-01-2022 History of Present illness Narrative* Selena [...] 28, 2022 12:51 [facility]* Encounter Date Diagnosis Assessment Notes Treatment Notes Treatment Clinical Notes Nov, Encounter for screening mammogram for malignant neoplasm of breast (ICD-10 - Z12.31) [facility] Other 03-30-2022 Hospital Discharge instructions Patient Education 11/26/2021 11:36:58 Kidney Stones, Zcvo-dh-Npla Kidney Stones Kidney stones are rock-like masses [...] Follow these instructions at home: Medicines Take awpn-oeb-nskgnyz and prescription medicines only as told by [...] 02/01/2009 Document Revised: 01/02/2020 Document Reviewed: 01/02/2020 [employer] Patient Education 2019 [employer]. Follow Up Care 10/27/2021 10:22:19 With:Asif CHISHOLM, Wendy [place] URL, URO Address: [address] [place] [address]- [phone] Business (1) When: Unknown [facility] 02-07-2022 NoteHNO ID: [id number] Author: Garcia Vieyra OD Service: ? Author Type: REVENUE INVESTIGATOR Type: Progress Notes Filed: 10/06/2021 10:56 AM [...] vision, light sensitivity, or contact lens intolerance develops.[facility] 08-09-2021 NoteHNO ID: [id number] Author: Johnny Crespo MD Service: ? 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 - Advised of importance in blood sugar and blood pressure control in reducing risk of vision loss. - Advised of importance of annual eye exams with sooner follow-up if any new symptoms develop. Return in 1 year Manifest refraction; see actuarial clerk for CLs I have confirmed and edited as necessary the relevant ophthalmic history, ROS, and the neuro exam findings as obtained by others. I have seen and examined Shahana David Grace. I have discussed the case and the management of this patient's care with the Resident/Fellow, if applicable. I also have reviewed and agree with the assessment and plan as stated above and agree with all of its relevant components. Johnny Crespo MD, 08/09/2021 12:01 [facility]05-01-2010 History general Narrative - Reported* Type Description Date Medical History 2008 pelvic exam done - [facility] Medical History 2009 mammogram done - [facility] Medical History 2002 colonscopy - [facility] Medical History No stress test Medical History Hgb A1c 5-1-10 (6.3) Medical History Coronary artery disease Medical History myocardial infarction Medical History CHF (05/2021) Medical History Hypertensive urgency (05/2021) Surgical History C-Sections x 2 Surgical History appendectomy Surgical History Median sternotomy 05/24/17 Surgical History Coronary bypass grafting x 4 Hospitalization History as above Hospitalization History [facility] CHF; Hypert ensive urgency 05/2021 [facility] Other Evaluation + Plan note Future Appointments Appointment Date:11/24/2021 09:00:00 AM Scheduled Provider:Feroz Cotton MD [facility] Appointment Type:Vascular Follow Up (FT) Appointment Date:11/26/2021 09:45:00 AM Scheduled Provider:Wendy Gold MD Location:[facility] Appointment Type:URO Office Visit Future Scheduled Tests Radiology* XR Abdomen 1 View 11/17/21 * [facility]ments Appointment Date:11/26/2021 09:45:00 AM Scheduled Provider:Wendy Gold MD Location:[facility] Appointment Type:URO Office Visit Future Scheduled Tests Radiology* XR Abdomen 1 View 11/17/21 * CV Peripheralvascular 10/14/21 [facility] Appointments Appointment Date:06/01/2022 02:00:00 PM Scheduled Provider:Wendy Gold MD Location:[facility] Appointment Type:URO Office Visit Future Scheduled Tests Radiology* XR Abdomen 1 View 11/17/21 * XR Abdomen 1 View 05/29/22 * US Renal 05/29/22 * CV Peripheralvascular 10/14/21 [facility] evaluation + Plan note Future Appointments Appointment Date:01/12/2022 11:30:00 AM Scheduled Provider:Feroz Cotton MD [facility]oint[facility] Type:Vascular Follow Up (FT) Appointment Date:06/01/2022 02:00:00 PM Scheduled Provider:Wendy Gold MD Location:[facility] Appointment Type:URO Office Visit Future Scheduled Tests Radiology* XR Abdomen 1 View 11/17/21 * XR Abdomen 1 View 05/29/22 * US Renal 05/29/22 * CV Peripheralvascular 10/14/21 [facility] App[facility]ments Appointment Date:07/13/2022 01:00:00 PM Scheduled Provider:Wendy Gold MD Location:[facility] Appointment Type:URO Office Visit Future Scheduled Tests Radiology* XR Abdomen 1 View 11/17/21 * CV Peripheralvascular 10/14/21 * CTA Abdomen 01/24/24 [facility] Appointments Appointment Date:07/13/2022 01:00:00 PM Scheduled Provider:Wendy Gold MD Location:[facility] Appointment Type:URO Office Visit Future Scheduled Tests Laboratory* Basic Metabolic Panel 06/26/22 Radiology* XR Abdomen 1 View 11/17/21 * CV Peripheralvascular 10/14/21 * CTA Abdomen 01/24/24 [facility] Appointments Appointment Date:08/19/2022 10:45:00 AM Scheduled Provider:Wendy Gold MD Location:[facility] Appointment Type:URO Office Visit Future Scheduled Tests Laboratory* Basic Metabolic Panel 06/26/22 Radiology* XR Abdomen 1 View 11/17/21 * CV Peripheralvascular 10/14/21 * CTA Abdomen 01/24/24 [facility] Evaluation + Plan note Future Appointments Appointment Date:10/14/2022 10:45:00 AM Scheduled Provider:Wendy Gold MD Location:[facility] Appointment Type:URO Office Visit Future Scheduled Tests Laboratory* Basic Metabolic Panel 06/26/22 Radiology* XR Abdomen 1 View 11/17/21 * CV Peripheralvascular 10/14/21 * CTA Abdomen 01/24/24 [facility] evaluation + Plan note Future Appointments Appointment Date:10/29/2022 09:00:00 AM Scheduled Provider:Wendy Gold MD Location:[facility] Appointment Type:URO Office Visit Future Scheduled Tests Laboratory* Basic Metabolic Panel 06/26/22 Radiology* XR Abdomen 1 View 11/17/21 * CTA Abdomen 01/24/24 [facility] evaluation + Plan note Future Appointments Appointment Date:02/08/2023 12:30:00 PM Scheduled Provider:Wendy Gold MD Location:[facility] Appointment Type:URO Office Visit Future Scheduled Tests Laboratory* PTH Intact 11/28/22 * Basic Metabolic Panel 06/26/22 * Basic Metabolic Panel 11/28/22 * Uric Acid 11/28/22 Radiology* XR Abdomen 1 View 11/17/21 * XR Abdomen 1 View 12/12/22 * US Renal 12/12/22 * CTA Abdomen 01/24/24 [facility] Evaluation + Plan note Future Appointments Appointment Date:02/08/2023 12:30:00 PM Scheduled Provider:Wendy Gold MD Location:[facility] Appointment Type:URO Office Visit Future Scheduled Tests Laboratory* PTH Intact 11/28/22 * Basic Metabolic Panel 06/26/22 * Basic Metabolic Panel 11/28/22 * Uric Acid 11/28/22 Radiology* XR Abdomen 1 View 11/17/21 * XR Abdomen 1 View 12/12/22 * CTA Abdomen 01/24/24 [facility] Appointments Appointment Date:05/19/2023 09:00:00 AM Scheduled Provider: Location:[facility] Appointment Type:Urology CALL PAT FT Appointment Date:05/25/2023 08:45:00 AM Scheduled Provider: Location:[facility] Appointment Type:Urology FT Future Scheduled Tests Laboratory* Basic Metabolic Panel 06/26/22 Radiology* CTA Abdomen 01/24/24 [facility] evaluation + Plan note Future Appointments Appointment Date:08/19/2023 01:15:00 PM Scheduled Provider:Wendy Gold MD Location:[facility] Appointment Type:URO Office Visit Future Scheduled Tests Laboratory* Basic Metabolic Panel 06/26/22 Radiology* CTA Abdomen 01/24/24 [facility] Future Appointments Appointment Date:08/19/2023 01:15:00 PM Scheduled Provider:Wendy Gold MD Location:[facility] Appointment Type:URO Office Visit Future Scheduled Tests Laboratory* Basic Metabolic Panel 06/26/22 Radiology* XR Abdomen 1 View 05/28/23 * CTA Abdomen 01/24/24 [facility] Future Appointments Appointment Date:08/19/2023 01:15:00 PM Scheduled Provider:Wendy Gold MD Location:[facility] Appointment Type:URO Office Visit Future Scheduled Tests Laboratory* PT & PTT 06/15/23 * BUN 06/15/23 * Creatinine 06/15/23 * Electrolyte Panel 06/15/23 * CBC w/ Auto Diff 06/15/23 Radiology* XR Abdomen 1 View 05/28/23 * CTA Abdomen 01/24/24 [facility] Future Appointments Appointment Date:08/19/2023 01:15:00 PM Scheduled Provider:Wendy Gold MD Location:[facility] Appointment Type:URO Office Visit Future Scheduled Tests Radiology* CTA Abdomen 01/24/24 [facility] Future Appointments Appointment Date:08/19/2023 01:15:00 PM Scheduled Provider:Wendy Gold MD Location:[facility] Appointment Type:URO Office Visit Diagnostic Tests Pending * Calculi Analysis Urinary 08/05/23 Future Scheduled Tests Radiology* CTA Abdomen 01/24/24 [facility] noteNo InformationNort [employer] Other Evaluation noteNo assessment information available [facility] Work Phone: Evaluation note* Diagnosis Atherosclerosis of coronary artery bypass graft of [place] 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 [facility] [employer]uRev 600 DO Work Phone: History of Present [...] patient is adherent with her medication regimen. [facility] [employer] 600 DO Work Phone: History of Present [...] patient is adherent with her medication regimen. [facility] AskYou 250 DO Work Phone: History of Present illness Narrative* The patient states she has been generally doing well since the last visit. Comorbid Illnesses: diabetes mellitus, hypertension and hyperlipidemia. * Symptoms: denies chest pain at rest, denies exertional chest pain, denies dyspnea, improved fatigue, improved exercise intolerance, denies palpitations, denies edema, denies orthopnea, improved dizziness and improved orthostatic dizziness. * Disease Monitoring: [facility] 600 DO Work Phone: Hospital course Narrative No data available for this section [facility] No data available for this section [facility]Progress note No data available for this section [facility] HospitalReason for referral (narrative)* Consultation (Routine) - Authorized Specialty Diagnoses / Procedures Referred By Elen mckeon Referred To Contact Cardiac Rehabilitation Diagnoses Atherosclerosis of coronary artery bypass graft of [place] heart without angina pectoris S/P CABG x 4 History of HI (myocardial infarction) Sterling Florian DO [facility] [address], [address] [address] Referral ID Status Reason Start Date Expiration Date Visits Requested Visits Authorized [id number] Authorized Specialty Services Required 07/27/2024 1 1 * Consultation (Routine) - Authorized Specialty Diagnoses / Procedures Referred By Elen mckeon Referred To Contact Cardiology Diagnoses Atherosclerosis of coronary artery bypass graft of [place] heart without angina pectoris S/P CABG x 4 Procedures Follow Up In Cardiology Sterling Florian DO [facility] [facility] [address], [address] [address] Sterling Florian DO [facility] [facility] [address], [address] [address] Referral ID Status Reason Start Date Expiration Date V isits Requested Visits Authorized [id number] Authorized 07/28/2023 07/27/2024 1 1 [facility] Work Phone: Summary Purpose Family History [...] Presents today with . * Hospitalized at [facility] due to volume overload, [...] Presents today with . * Hospitalized at [facility] due to volume overload, [...] Presents today with . * Hospitalized at [facility] due to volume overload, [...] volume depletion. * Patient presents to [facility] for cardiovascular evaluation. * Patient is ambulatory [...] or hospitalizations. * She suffered an inferior HI in 2016 with primary revascularization of the [...] section and content) DATE CREATED AUTHOR 02/22/2018 [facility] DATE CREATED AUTHOR AUTHOR'S ORGANIZ ATION 10/14/2021 [facility] DATE CREATED AUTHOR AUTHOR'S ORGANIZ ATION 01/30/2022 [facility] DATE CREATED AUTHOR AUTHOR'S ORGANIZ ATION 07/29/2022 [facility] DATE CREATED AUTHOR AUTHOR'S ORGANIZ ATION 07/30/2022 [facility] DATE CREATED AUTHOR AUTHOR'S ORGANIZ ATION 03/31/2023 [facility] DATE CREATED AUTHOR AUTHOR'S ORGANIZ ATION 10/08/2023 [facility] DATE CREATED AUTHOR AUTHOR'S ORGANIZ ATION 02/20/2024 [facility] DATE CREATED AUTHOR AUTHOR'S ORGANIZ ATION 02/21/2024 [facility] DATE CREATED AUTHOR AUTHOR'S ORGANIZ ATION 02/22/[address] [facility] DATE CREATED AUTHOR AUTHOR'S ORGANIZ ATION 02/23/2024 [facility] DATE CREATED AUTHOR AUTHOR'S ORGANIZ ATION 02/24/2024 [facility] DATE CREATED AUTHOR AUTHOR'S ORGANIZ ATION 02/26/2024 [facility] DATE CREATED AUTHOR AUTHOR'S ORGANIZ ATION 02/27/2024 [facility] DATE CREATED AUTHOR AUTHOR'S ORGANIZ ATION 02/28/2024 [facility] Source Comments (unrecognize d section and content) In the event this informatio n is protected by the Federal Confidentiality of Alcohol and Drug Abuse Patient Records regulations: The Federal rules restrict any use of the information to criminally investigate or prosecute any alcohol or drug abuse patient.[facility] the event this information is protected by the Federal Confidentiality of Alcohol and Drug Abuse Patient Records regulations: The Federal rules restrict any use of the information to criminally investigate or prosecute any alcohol or drug abuse patient.[facility] Center[facility] the event this information is protected by the Federal Confidentiality of Alcohol and Drug Abuse Patient Records regulations: The Federal rules restrict any use of the information to criminally investigate or prosecute any alcohol or drug abuse patient.[facility] Center[facility] the event this information is protected by the Federal Confidentiality of Alcohol and Drug Abuse Patient Records regulations: The Federal rules restrict any use of the information to criminally investigate or prosecute any alcohol or drug abuse patient.[facility] Care Teams (unrecognized sec tion and content) Membership Sales Manager Relationship Specialty Start Date End Date Albertina Arndt [address] [phone] PCP - General Family Practice 11/11/20 Team Status: Active Member Role Status Dates Albertina Arndt DO Primary Care Provider Active Team Status: Active Member Role Status Dates Rudolph Ram D.O. Attending Provider Active Team Status: Inactive Member Role Status Dates Albertina Arndt DO Primary Care Provider, Attending Provi breanna Active Membership Sales Manager Relationship Specialty Start Date End Date Albertina Arndt [address] [id number] PCP - General Family Medicine 11/11/20 Membership Sales Manager Relationship Specialty Start Date End Date Albertina Arndt [address] [id number] PCP - General Family Medicine 11/11/20 Membership Sales Manager Relationship Specialty Start Date End Date Albertina Arndt [address] [id number] PCP - General Family Medicine 11/11/20 Membership Sales Manager Relationship Specialty Start Date End Date Albertina Arndt DO [address] [place] [phone] PCP - General Family Medicine 07/28/23 Team Status: Inactive Member Role Status Dates Albertina Arndt DO Primary Care Provider Active W Anirudh Florian DO Attending Provider Active REASON FOR [...] BE BASED ON THE PRIMARY CLINICAL RECORDS. [facility]. provides no warranty or guarantee of the accuracy or completeness of information in this document.
--- NOTE | 2024-02-28 12:21 | CM.DCFOLLOWU ---
Person spoke with: patient How are you feeling? better How is your pain? none Did you understand your discharge instructions? yes Do you have any questions about your discharge instructions? no Were you given any prescriptions at discharge? yes Were you able to get your prescriptions filled? yes Do you understand how to take your medications as ordered? yes Do you have any questions about your follow up appointment and do you plan to keep your follow up appointment? no questions, follow up scheduled Is there anything else that you would like to discuss? Pt did voice her feet are swollen and what we recommend. Advised her to call PCP or make sure to ask when she has follow up tomorrow. Questions/Comments/Concerns/Other: none
--- NOTE | 2024-02-28 12:22 | SWNOTE1 ---
SW was completing call backs. SW reviewed PT note and HH was recommended. SW did ask pt during follow up call if she would like HH set up. She voiced she is doing better and does not need it. SW advised her to speak with her PCP if she does decide she wants home health therapy. Pt also asked about her feet swelling. SW advised for her to call PCP and ask or to make sure she asks at her follow up apt. She voiced understanding.
== END 2024-02-27 11:50 | disposition home or self-care (01) ==
LOC: ER 02-26 08:35 → MS 02-27 10:50
PROVIDERS: Internal Medicine; Admitting Provider Internal Medicine; Emergency Provider Emergency Medicine; PCP Family Medicine; Visit Provider Internal Medicine
DX: T83.592A Infection and inflammatory reaction due to indwelling ureteral stent, initial encounter (principal); N13.6 Pyonephrosis; G93.41 Metabolic encephalopathy; I25.10 Atherosclerotic heart disease of native coronary artery without angina pectoris; E78.5 Hyperlipidemia, unspecified; E11.22 Type 2 diabetes mellitus with diabetic chronic kidney disease; N17.9 Acute kidney failure, unspecified; Z87.442 Personal history of urinary calculi; N18.30 Chronic kidney disease, stage 3 unspecified; E66.9 Obesity, unspecified; Z68.37 Body mass index [BMI] 37.0-37.9, adult; Z79.4 Long term (current) use of insulin
CPT/HCPCS: 36415; 70450; 71045; 74177; 80053; 81001; 82948; 83605; 84145; 84484; 85007; 85025; 85027; 87040; 87086; 87106; 93005; 94761; 96365; 96366; 96372; 97162; 99285; G0378; J0696; Q9967

== ENCOUNTER 2024-03-06 10:43 | Outpatient (OUT) | payer MEDICARE, OTHER, SELFPAY ==
--- NOTE | 2024-03-06 10:45 | XR_ITS ---
The [address] [address] Patient Name: SHAHANA FLOR MRN: [id number] date: 1950 Sex: F Assigned Patient [facility] Current Patient Location: Accession/Order Number: [id number] Exam Date: 03/06/2024 11:55 Report Date: 03/07/2024 07:16 At the request of: THALIA DENT Procedure: XR chest 2V EXAMINATION: XR chest 2V HISTORY: Preop exam COMPARISON: 02/26/2024 TECHNIQUE: PA and lateral FINDINGS: LUNGS: Low lung volumes. Left basilar infiltrate partially obscuring the hemidiaphragm. The right is clear VASCULATURE: No increased pulmonary vasculature. PLEURA: No pneumothorax, effusion, or pleural thickening. CARDIAC: No cardiomegaly or cardiac silhouette abnormality. MEDIASTINUM: No visible mass or adenopathy. Median sternotomy wires BONES: No fracture or visible bone lesion. OTHER: Negative. XR/XR chest 2V IMPRESSION: Mild left basilar infiltrate, atelectasis versus pneumonia Electronically authenticated by: JOJO MINOR Date: 03/07/2024 07:16
[2024-03-06 12:37] LABS: Anion Gap 10.9; BUN Creatinine Ratio 10.9; Calcium 8.3 mg/dL (8.5-10.1); Carbon Dioxide 25.4 mmol/L (21.0-32.0); Chloride 111 mmol/L (98-107); Estimated GFR (African America 37 (>=60); Estimated GFR (Non-African Ame 30 (>=60); Glucose 248 mg/dL (74-106); Potassium 3.3 mmol/L (3.5-5.1); Sodium 144 mmol/L (136-145)
[2024-03-06 12:38] LABS: Partial Thromboplastin Time 26.3 sec (22.3-36.2); Prothrombin Time 10.6 sec (9.0-11.6)
== END 2024-03-06 10:44 | disposition home or self-care (01) ==
LOC: PST 10:43
PROVIDERS: PCP Family Medicine; Visit Provider Urology
DX: Z01.810 Encounter for preprocedural cardiovascular examination (principal); Z01.812 Encounter for preprocedural laboratory examination; N20.1 Calculus of ureter
CPT/HCPCS: 36415; 71046; 80048; 85610; 85730

== ENCOUNTER 2024-03-22 13:09 | Outpatient (OUT) | payer MEDICARE, OTHER, SELFPAY ==
--- NOTE | 2024-03-22 13:18 | XR_ITS ---
The [address] [address] Patient Name: SHAHANA FLOR MRN: [id number] date: 1950 Sex: F Assigned Patient Location: [facility] Current Patient Location: RAD Accession/Order Number: [id number] Exam Date: 03/22/2024 13:22 Report Date: 03/22/2024 14:05 At the request of: THALIA DENT Procedure: XR chest 2V EXAM: XR chest 2V HISTORY: Kidney Stone N20.0, Atelectasis J98.11 COMPARISON: 03/06/2024 TECHNIQUE: Upright PA and lateral chest x-ray FINDINGS: Subtle atelectasis or infiltrate persist at the left lung base, which is unchanged. No acute infiltrate, effusion or pneumothorax is identified. The heart is not enlarged and the vasculature is not distended. Multiple sternal wire sutures are present. Degenerative changes are seen in the spine. A metallic device is seen in the left upper quadrant of the abdomen. XR/XR chest 2V IMPRESSION: Stable appearance of the small amount of atelectasis or infiltrate at the left lung base. No additional infiltrate or cardiac decompensation is identified. The overall appearance of the chest is unchanged. Electronically authenticated by: AZUL LENTZ Date: 03/22/2024 14:05
== END 2024-03-22 13:10 | disposition home or self-care (01) ==
LOC: RAD 13:10
PROVIDERS: PCP Family Medicine; Visit Provider Urology
DX: N20.0 Calculus of kidney (principal); J98.11 Atelectasis
CPT/HCPCS: 71046

== ENCOUNTER 2024-03-30 06:42 | Day surgery (SDC) | payer MEDICARE, OTHER, SELFPAY ==
[2024-03-06 11:31] VITALS: BP 134/85; PULSE 68; TEMP 36.3; O2SAT 95; BMI 34.5
[2024-03-30] VITALS (9 sets, daily range): BP systolic 136–165; BP diastolic 78–109; PULSE 76–86; TEMP 36.3–36.4; O2SAT 91–97; BMI 33.8
--- NOTE | 2024-03-30 | FL_ITS ---
[address] [address] Patient Name: SHAHANA FLOR MRN: [id number] date: 1950 Sex: F Assigned Patient Location: [facility] Current Patient Location: Accession/Order Number: [id number] Exam Date: 03/30/2024 08:00 Report Date: 03/30/2024 11:18 At the request of: THALIA DENT Procedure: FL fluoroscopy <1hr NON-READ EXAM: FL fluoroscopy <1hr NON-READ HISTORY: TECHNIQUE: FINDINGS: Please see Operative Report. Electronically authenticated by: RADIOLOGIST NO Date: 03/30/2024 11:18
--- OUTSIDE RECORDS SUMMARY | 2024-03-30 06:47 | XMS_ITS | CCD ---
Author Organization [facility] CliniSyne Care Team Providers Care Linoleum Floor Layer Name Role Phone KANWAL MANN Unavailable Unavailable [...] Consulting Unavailable ALBERTINA ARNDT Primary Care Physician [phone] Francie Mann Unavailable Unavailable Albertina Arndt Primary Care Provider Albertina Arndt Unavailable Albertina Arndt Primary Care Unavailable Anival, Dr. Sterling Oleary Attending Unava iljany Florian, Dr. Sterling Oleary Referring Unava ilAlbertina Case Primary Care Unavailable Anival, Dr. Sterling Oleary Attending Unava iljany Florian, Dr. Sterling Oleary Referring Unava ilSo Blankenship Attending Provider Hair, DO Eng Primary Care Provider DO Albertina Arndt Attending Provider [phone] Albertina Arndt Primary Care Provider ALBERTINA ARNDT Primary Care Unavailable Francie Esteban Unavailable Unavailable Garrett Palmer Unavailable Odalys Arndt DOmal Vee Primary Care Provider So Ram Attending Provider [phone] Hair DO Eng Primary Care Provider [phone] DO Tal Florian Attending Provider Hair Albertina Primary Care Unavailable Tal Florian [...] Unavailable COOK, Orestes P Referring Unavailable COOK, Roestes P Admitting Unavailable LEONEL Corona Attending Unavailab [...] L Unavailable Unavailable Jhonny Barrett Attending Unavailable Glynn ALARCON Admitting Unavailable MD Glynn DENT Consulting Unavailable Glynn DENT Attending Unavailable MARCO KURTZ Attending Unavailable STERLING FLORIAN Attending Unavailable ALBERTINA ARNDT Primary Care Unavailable Allergies Allergy Classification Reported Allergen(s) Allergy Type Date of Onset Reaction(s) Facility (20 sources) Aspirin; Translations: [aspirin] Drug Allergy 3 Eye swelling (finding), Anaphylaxis -[facility] 600 DO Work Phone: Comment on above: pt states she is abl e to take 81 mg of aspirin with aspirin allergy (1 source) Aspirin Drug Allergy [facility] Repository (4 sources) No Latwex Allergy [Other] Propensity to adverse reactions 3 [facility] (9 sources) Aspirin Drug Allergy swollen throat Rapid Pathogen Screening [facility] [employer] Other (1 source) OTHER; Translations: [OTHER] Propensity to adverse reactions (disorder) 3 [facility] Other [place] Repository (1 source) Aspirin Drug Allergy 1 [facility] Repository Medications Current Medications Medication Drug Class(es) [...] day(s), # 15 cap(s), Refills(s) 0, Pharmacy: [facility] #[id number], 158, cm, 05/09/23 8:54:00 EDT, Height/Length Dosing, 90.4, kg, 05/09/23 8:54:00 EDT, Weight Dosing Start Date: 05/11/23 Stop Date: 05/16/23 Status: Ordered Start: 11-14-2022 End: 11-19-2022 take 1 capsule by mouth three times daily Keflex 500 mg Cap 500 mg = 1 cap(s), Oral, TID, X 5 day(s), # 15 cap(s), Refills(s) 0, Pharmacy: [facility], 157, cm, 11/13/22 23:40:00 EDT, Height/Length Dosing, 83.2, kg, 11/13/22 23:40:00 EDT, Weight Dosing Start Date: 11/14/22 Stop Date: 11/19/22 Status: Ordered Start: 10-22-2021 take 1 capsule by mo [facility] once daily Keflex 500 mg Cap 500 mg = 1 cap(s), Oral, q12hr, take 1 cap the evening prior to scheduled procedure, take 2nd capsule the day of scheduled procedure, # 2 cap(s), Refills(s) 0, [id number] 161.9, cm, 10/21/21 6:32:00 EST, Height/Length Dosing, 80.5,... Start Date: 10/22/21 Status: Ordered ciprofloxacin 500 mg oral tablet (5 sources) Quinolone Antimicrobial Start: 02-23-2024 End: 03-01-2024 take 1 tablet by mouth twice daily Cipro 500 mg Tab 500 mg = 1 tab(s), Oral, BID, X 7 day(s), # 14 tab(s), Refills(s) 0, Pharmacy: [facility], 160.5, cm, 02/19/24 13:38:00 EDT, Height/Length Dosing, 84.3, kg, 02/19/24 13:38:00 EDT, Weight Dosing Start Date: 02/23/24 Stop Date: 03/01/24 Status: Ordered Start: 08-05-2023 take 1 tablet by luab th twice daily Cipro 500 mg Tab 500 mg = 1 tab(s), Oral, BID, # 10 tab(s), Refills(s) 0, Pharmacy: [facility], 160.5, cm, 08/05/23 13:21:00 EST, Height/Length Dosing, 83, kg, 08/05/23 13:21:00 EST, Weight Dosing Start Date: 08/05/23 Status: Ordered Start: 07-02-2022 Cipro 500 mg T ab See Instructions, Take 1 tab day prior to procedure and 1 tab day of procdure - afterwards, # 2 tab(s), Refills(s) 0, Pharmacy: [facility]/pharmacy #[id number], 163, cm, 07/02/22 9:34:00 EDT, Height/Length [...] night for 1 month, then 2x/week thereafter, [facility], 158, cm, 02/08/23 12:39:00 EDT, Height/Length [...] Daily, # 30 tab(s), Refills(s) 0, Pharmacy: [facility]/pharmacy #[id number], 157, cm, 06/17/22 13:37:00 EDT, [...] 120 tab(s), Refills(s) 0, Pharmacy: [facility]/pharmacy #[id number], 157.5, cm, 06/10/21 10:56:00 EDT, [...] dizziness, # 15 tab(s), Refills(s) 0, Pharmacy: [facility] #72, 157, cm, 11/13/22 23:40:00 EDT, [...] Start: 10-01-2021 take 2 tablets by mo [facility] twice daily metformin 500 mg ER Tab 1,000 mg = 2 tab(s), Oral, BID, High blood sugar Start Date: 10/01/21 Status: Ordered Start: 10-29-2018 [facility] metFORMIN (GLUCOPHAGE) 1,000 mg [...] Daily, # 30 tab(s), Refills(s) 6, Pharmacy: [facility], 158, cm, 02/08/23 12:39:00 EDT, Height/Length Dosing, 82, kg, 02/08/23 12:39:00 EDT, Weight Dosing Start Date: 02/08/23 Status: Ordered NIFEdipine 30 mg oral tablet (1 source) Dihydropyridine Calcium Channel Lesly Start: 02-23-20 take 2 tablets by mouth once daily NIFEdipine 30 mg ER Tab 60 mg = 2 tab(s), Oral, Daily, # 60 tab(s), Refills(s) 5, Pharmacy: [facility], 160.5, cm, 02/19/24 13:38:00 EDT, Height/Length [...] day(s), # 60 tab(s), Refills(s) 1, Pharmacy: [facility]/pharmacy #6177, 157, cm, 06/17/22 13:37:00 EDT, [...] water, # 30 tab(s), Refills(s) 10, Pharmacy: [facility], 158, cm, 02/08/23 12:39:00 EDT, Height/Length Dosing, 82, kg, 02/08/23 12:39:00 EDT, Weight Dosing Start Date: 02/08/23 Status: Ordered Start: 10-30-2022 End: 01-28-2023 take 1 tablet by mouth twice daily Effer-K 20 mEq oral tablet, effervescent 20 mEq = 1 tab(s), Oral, BID, X 30 day(s), # 60 tab(s), Refills(s) 2, Pharmacy: [facility], 163, cm, 07/13/22 13:17:00 EST, Height/Length Dosing, 82, kg, 07/13/22 13:17:00 EST, Weight Dosing Start Date: 10/30/22 Stop Date: 01/28/23 Status: Ordered potassium citrate 10 meq extended release oral tablet (2 sources) Start: 08-19-2022 potassium CITRATE 10 mEq ER Tab 10 mEq, 1 tab(s), Oral, BID, 90 tab(s), Refill(s) 6, [facility]/pharmacy #[id number], 163, cm, 07/13/22 13:17:00 EST, [...] Daily, # 14 tab(s), Refills(s) 0, Pharmacy: [facility], 158, cm, 05/09/23 8:54:00 EDT, Height/Length [...] Daily, # 30 tab(s), Refills(s) 11, Pharmacy: [facility]/pharmacy #[id number], 157.5, cm, 10/01/21 9:21:00 EST, [...] 120 tab(s), Refills(s) 0, Pharmacy: [facility]/pharmacy #[id number], 157.5, cm, 06/10/21 10:56:00 EDT, [...] day(s), # 60 EA, Refills(s) 3, Pharmacy: [facility], 158, cm, 02/08/23 12:39:00 EDT, Height/Length Dosing, 82, kg, 02/08/23 12:39:00 EDT, Weight Dosing Start Date: 02/08/23 Stop Date: 06/08/23 Status: Ordered Start: 02-08-2023 End: 06-08-2023 potassium citrate compoundin g powder 30 mEq, Oral, BID, 30mEq potassium citrate powder orally BID, Dissolve in 8 oz water, X 30 day(s), # 60 EA, Refills(s) 3, Pharmacy: [facility], 158, cm, 02/08/23 12:39:00 EDT, Height/Length Dosing, 82, kg, 02/08/23 12:39:00 EDT, Weigh... Start Date: 02/08/23 Stop Date: 06/08/23 Status: Ordered Start: 10-29-2022 potassium citr ate compounding powder See Instructions, 15mEq twice a day, dissolve with water/juice, take with food or after meal, # 60 packet(s), Refills(s) 6, Pharmacy: [facility], 163, cm, 07/13/22 13:17:00 EST, Height/Length [...] Chronic Complication of device; implant or graft (16 sources) Arteriosclerosis of coronary artery bypass graft; [...] disease (20 sources) Atherosclerotic heart disease of [place] coronary artery without angina pectoris; Translations: [Coronary arteriosclerosis] Onset: 7 Chronic Coronary atherosclerosis and other heart disease (1 source) Coronary atherosclerosis and other heart disease Onset: 7 Deficiency and other anemia (13 sources) Anemia; Translations: [Anemia, unspecified] Onset: 3 06-29-2023 Episodic Diabetes mellitus with complications (4 sources) Type 2 diabetes mellitus; Translations: [Type 2 diabetes mellitus with other specified complication] Onset: 3 07-28-2023 Chronic Diabetes mellitus without complication (20 [...] sources) Long-term current use of anticoagulant; Translations: [nursing home (current) use of anticoagulants] Onset: 2 10-08-2021 Episodic Other aftercare (1 source) Long-term current use of drug therapy; Translations: [Other long-term (current) drug therapy] Onset: 3 Episodic Other [...] Unclassified (2 sources) Athscl heart disease of [place] coronary artery w/o ang pctrs / I25.10(ICD-9) [...] Other Problems Problem Classification Problem Date Documented Da te Episodic/Chronic Coronary atherosclerosis and other heart disease (11 sources) 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; Translations: [Presence of aortocoronary bypass graft] Onset: 07-27-2023 Episodic Genitourinary symptoms and ill-defined conditions (13 sources) Increased frequency of urination; Translations: [Frequency of micturition] Onset: 11-24-2022 Resolved: 07-29-2022 Episodic Other aftercare (2 sources) 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; Translations: [nursing home (current) use of insulin ([facility] Onset: 06-29-2023 Episodic Other nervous system disorders (12 sources) Postoperative pain ; Translations: [Other acute postoperative pain] Resolved: 07-29-2022 Episodic Unclassified (12 sources) Never smoked tobacco; Translations: [Never a smoker] Unclassified (1 source) Onset: 07-28-2023 07-28-2023 Results Test Name Value Interpretation Reference Range Facil ity Calculus Analysison 02-29-20 24 Color (Stone) Levine Invalid Interpretation Code [facility] Comment on above: Performed By: #### 1 [id number] #### [facility] [address] [place] [address] Composition Comment Invalid Interpretation Code [facility] Comment on above: Result Comment: Perc entage (Represents the % composition) Performed By: #### 1 [id number] #### [facility] [address] [place] [id number] Disclaimer: Comment Invalid Interpretation Code [facility] Comment on above: Result Comment: This test was developed and its performance characteristics determined by [facility]. It has not been cleared or approved by the Food and Drug Administration. Performed at: [facility] [address] [id number] PhD Lester Adams Performed By: #### 1 [id number] #### [facility] [address] [place] [address] Laboratory comment Hu (Report) Comment Invalid Interpretation Code [facility] Comment on above: Result Comment: Phys ulysses questions regarding Calculi Analysis [facility] at: [phone]. Performed By: #### 1 [id number] #### [facility] [address] [place] [address] Please Note: Comment Invalid Interpretation Code [facility] Comment on above: Result Comment: Calc bernard report will follow via computer, mail or packaging sales representative delivery. Performed By: #### 1 [id number] #### [facility] [address] [place] [address] Size (Stone) [Entitic vol] <1 Invalid Interpretation Code [facility] Comment on above: Result Comment: Too small to measure. Performed By: #### 1 [id number] #### [facility] [address] [place] [address] Specimen source subject Nom Comment Invalid Interpretation Code [facility] Comment on above: Result Comment: Righ t Ureter Performed By: #### 1 [id number] #### [facility] [address] [place] [address] Stone Photo COMMENT Invalid Interpretation Code [facility] Comment on above: Result Comment: Test not performed No photo available Performed By: #### 1 [id number] #### [facility] [address] [place] [address] Urate (Stone) [Mass fraction] 100 % Invalid Interpretation Code [facility] Comment on above: Performed By: #### 1 [id number] #### [facility] [address] [place] [address] Weight (Stone) <1 Invalid Interpretation Code [facility] Comment on above: Result Comment: Too small to weigh Performed By: #### 1 [id number] #### [facility] [address] [place] [address] CBC w/ Auto Diffon 4 Basophils/100 WBC (Bld) 0.3 % Normal 0.0-2.0 [facility] Comment on above: Performed By: #### 2 [id number] #### [facility] [address] [place] [address] Basophils/Leukocytes Auto (Bld) [Pure # fraction] 0.0 E9/L Normal 0.0-0.2 [facility] Comment on above: Performed By: #### 2 [id number] #### [facility] [address] [place] [address] Eosinophils (Bld) [#/Vol] 0.1 E9/L Normal 0.0-0.5 [facility] Comment on above: Performed By: #### 2 [id number] #### [facility] [address] [place] [address] Eosinophils/100 WBC (Bld) 1.6 % Normal 0.0-8.0 [facility] Comment on above: Performed By: #### 2 [id number] #### [facility] [address] [place] [address] Erythrocyte distribution width (RBC) [Ratio] 13.9 % Normal 10.9-14.2 [facility] Comment on above: Performed By: #### 2 [id number] #### [facility] [address] [place] [address] Hematocrit (Bld) [Volume fraction] 38.6 % Normal 34.0-46.0 [facility] Comment on above: Performed By: #### 2 [id number] #### [facility] [address] [place] [address] Hemoglobin (Bld) [Mass/Vol] 13.2 g/dL Normal 12.0-16.0 [facility] Comment on above: Performed By: #### 2 [id number] #### [facility] [address] [place] [address] Lymphocytes (Bld) [#/Vol] 0.7 E9/L Low 1.0-4.0 [facility] Comment on above: Performed By: #### 2 [id number] #### [facility] [address] [place] [address] Lymphocytes/100 WBC (Bld) 8.2 % Low 14.0-50.0 [facility] Comment on above: Performed By: #### 2 [id number] #### [facility] [address] [place] [address] MCH (RBC) [Entitic mass] 31.4 pg Normal 27.0-34.0 [facility] Comment on above: Performed By: #### 2 [id number] #### [facility] [address] [place] [address] MCHC (RBC) [Mass/Vol] 34.2 g/dL Normal 31.4-36.0 [facility] Comment on above: Performed By: #### 2 [id number] #### [facility] [address] [place] [address] MCV (RBC) [Entitic vol] 92.0 fL Normal 80.0-100.0 [facility] Comment on above: Performed By: #### 2 [id number] #### [facility] [address] [place] [address] Monocytes (Bld) [#/Vol] 0.6 E9/L Normal 0.2-1.0 [facility] Comment on above: Performed By: #### 2 [id number] #### [facility] [address] [place] [address] Neutrophils (Bld) [#/Vol] 6.8 E9/L Normal 2.0-7.5 [facility] Comment on above: Performed By: #### 2 [id number] #### [facility] [address] [place] [address] Neutrophils/100 WBC (Bld) 82.5 % High 36.0-75.0 [facility] Comment on above: Performed By: #### 2 [id number] #### [facility] [address] [place] [address] Platelet 126.0 E9/L Low 150.0-500.0 [facility] Comment on above: Performed By: #### 2 [id number] #### [facility] [address] [place] [address] Platelet mean volume (Bld) [Entitic vol] 8.0 fL Normal 6.4-10.8 [facility] Comment on above: Performed By: #### 2 [id number] #### [facility] [address] [place] [address] RBC (Bld) [#/Vol] 4.2 E12/L Low 4.3-5.9 [facility] Comment on above: Performed By: #### 2 [id number] #### [facility] [address] [place] [address] WBC corrected for nucl RBC Auto (Bld) [#/Vol] 8.3 E9/L Normal 4.0-11.0 [facility] Comment on above: Performed By: #### 2 [id number] #### [facility] [address] [place] [address] CHEMISTRYOrdered By: Andrea Richter on 02-23-2024 Glucose [Mass/Vol] 183 mg/dL High 55 - 99 mg/dL FTM C POC Subsection Comment on above: Result Comment: [place] ANDRES POC Device SN [id number] 1 Invalid Interpretation Code FT POC Subsection POC User ID [id number] 1 Invalid Interpretation Code FT POC Subsection POC Username AISHA PAK Invalid Interpretation Code FT POC Subsection Glucose [Mass/Vol] 148 mg/dL High 55 - 99 mg/dL FTM C POC Subsection Comment on above: Result Comment: [place] vanegas RN/ POC Device SN [id number] 1 Invalid Interpretation Code FT POC Subsection POC User ID [id number] 1 Invalid Interpretation Code FT POC Subsection POC Username AISHA PAK Invalid Interpretation Code FT POC Subsection CHEMISTRYOrdered By: Yohana Jones on [...] 01-29 Glucose [Mass/Vol] 183 mg/dL High 55-99 [facility] Comment on above: Result Comment: [place] vanegas RN/ Performed By: #### 2 [id number] #### [facility] [address] [place] [address] Discharge Instructionson Discharge Instructions [id number]# 1.00TIFF Normal [facility] Discharge Note-Nursingon Discharge Note-Nursing SHAHANA GRACE :1950 Visit Date:02/19/2024 Inpatient Discharge Instructions Your Care Team Admitting Physician - Glynn ALARCON DO Consulting Physician - DENT MD, Glynn R Reason for Your Visit Hyperglycemia Your Diagnosis [...] care physician. This Is Your Medications List [facility] [place] (Liver panel) NIFEdipine (NIFEdipine 30 mg [...] patient for hosptial follow up appointment. Where: [address] [place] [address] Business (1) Medications What How Much When Instructions Next Dose New NIFEdipine (NIFEdipine 30 mg ER Tab) 2 Tablets By Mouth Every day Refills: 5 Pickup at [facility] 02/23 @ 9 AM Unchanged atorvastatin [...] day 02/23 @ 9 AM Pharmacy Information [facility]: [address] [place] [id number] [phone] Test Results CBC BMP WBC: 8.3 E9/L (02/23/24 05:26:00) Glucose Lvl: 187 mg/dL (02/23/24 05:26:00) RBC: 4.2 E12/L Low (02/23/24 05:26:00) BUN: 26 mg/dL High (02/23/24 05:26:00) HGB: 13.2 gm/dL (02/23/24 05::00) Creatinine: 1.2 mg/dL (02/23/24 05::00) Hct: 38.6 % (02/23/24 05::00) BUN/Creat Ratio: 22 High (02/23/24 05::00) MCV: 92 fL (02/23/24 05::00) Sodium Lvl: 145 mmol/L (02/23/24 05::00) MCH: 31.4 pg (02/23/24 05::00) Potassium Lvl: 3.8 mmol/L (02/23/24 05::00) MCHC: 34.2 gm/dL (02/23/24 05::00) Chlorid (more content not included)... Normal [facility] HEMATOLOGYOrdered By: Wendy Pritchard on 02-23-2024 [...] Inpatient Clinical Summaryon 02-23-2024 Inpatient Clinical Summary [place] [address] Clinical Summary Person Information: Name: SHAHANA GRACE Age: 74 Years : 1950 Sex: Female PCP: ALBERTINA ARNDT DO Marital Status: Race: White Ethnicity: Non- or Language: Japanese Visit Id: Visit Reason: Polydipsia; Nausea; Hyperglycemia; hyperglycemia Speciality: Acuity: Enc Type: Inpatient Med Service: Medical Arrival: 02/19/2024 13:27:15 Discharge: Dispo Type: Admitted as IP to this Hosp Address: [address] [place] [id number] Provider Notes: Diagnosis: 1:Complicated urinary tract infection; [...] disease Urge incontinence Glucosuria Urinary tract infection nursing home current use of anticoagulant Kidney stone Smoking [...] is planned. With: Address: When: ALBERTINA ARNDT [address] [place], [place] [id number] Business (1) Comments: Doctor's office will call patient for hosptial follow up appointment. Patient Education Information: Diet - Basic Carbohydrate Counting (Custom) [facility] Inpatient Patient Summaryon 02-23-2024 Inpatient Patient Summary [address] [address] Patient Discharge Instructions PERSON INFORMATION [...] is planned. With: Address: When: ALBERTINA ARNDT [address] [place] [address] [place] [address] Business (1) Comments: Doctor's office will call [...] OCCURRED DURING YOUR HOSPITAL STAY New Medications [facility] [address] [place], [place] [id number], [phone] NIFEdipine (NIFEdipine 30 mg ER Tab) 2 Tablets By Mouth every day. Refills: 5. Last Dose: ____Next Dose: ____ Medications to Continue Taking That Have Changed [facility] [address] [place], [place] [id number], [phone] START: ciprofloxacin (Cipro 500 mg Tab) 1 [...] ALL TIMES (more content not included)... Normal [facility] IntraOperative Documentson 0 02-23-2024 IntraOperative Documents [id number]# 1.00TIFF Normal [facility] Monitor Recordon 02-23-2024 Monitor Record [id number]# 1.00TIFF Normal [facility] BMPon 02-22-2024 Anion gap [Moles/Vol] 10 mmol/L Normal 02-12 [facility] Comment on above: Performed By: #### 2 [id number] #### [facility] [address] [place] [address] Calcium [Mass/Vol] 7.3 mg/dL Low 8.9-11.1 [facility] Comment on above: Performed By: #### 2 [id number] #### [facility] [address] [place] [address] Chloride [Moles/Vol] 118 mmol/L High 101-111 [facility] Comment on above: Performed By: #### 2 [id number] #### [facility] [address] [place] [address] CO2 [Moles/Vol] 19 mmol/L Low 21-31 [facility] Comment on above: Performed By: #### 2 [id number] #### [facility] [address] [place] [address] Creatinine [Mass/Vol] 1.5 mg/dL High 0.5-1.3 [facility] Comment on above: Performed By: #### 2 [id number] #### [facility] [address] [place] [address] Glucose [Mass/Vol] 254 mg/dL High 55-199 [facility] Comment on above: Performed By: #### 2 [id number] #### [facility] [address] [place] [address] Potassium [Moles/Vol] 3.9 mmol/L Normal 3.5-5.3 [facility] Comment on above: Performed By: #### 2 [id number] #### [facility] [address] [place] [address] Sodium [Moles/Vol] 143 mmol/L Normal 135-145 [facility] Comment on above: Performed By: #### 2 [id number] #### [facility] [address] [place] [address] Urea nitrogen [Mass/Vol] 33 mg/dL High 5-21 [facility] Comment on above: Performed By: #### 2 [id number] #### [facility] [address] [place] [address] Urea nitrogen/Creatinine [Mass ratio] 22 No Units High 10-20 [facility] Comment on above: Performed By: #### 2 [id number] #### [facility] [address] [place] [address] CBC w/ Auto Diffon 4 Basophils/100 WBC (Bld) 0.2 % Normal 0.0-2.0 [facility] Comment on above: Performed By: #### 2 [id number] #### [facility] [address] [place] [address] Basophils/Leukocytes Auto (Bld) [Pure # fraction] 0.0 E9/L Normal 0.0-0.2 [facility] Comment on above: Performed By: #### 2 [id number] #### [facility] [address] [place] [address] 13211 Eosinophils (Bld) [#/Vol] 0.1 E9/L Normal 0.0-0.5 [facility] Comment on above: Performed By: #### 2 [id number] #### [facility] [address] [place] [address] 41779 Eosinophils/100 WBC (Bld) 1.5 % Normal 0.0-8.0 [facility] Comment on above: Performed By: #### 2 [id number] #### [facility] [address] [place] [address] 98746 Erythrocyte distribution width (RBC) [Ratio] 13.9 % Normal 10.9-14.2 [facility] Comment on above: Performed By: #### 2 [id number] #### [facility] [address] [place] [address] 17239 Hematocrit (Bld) [Volume fraction] 39.5 % Normal 34.0-46.0 [facility] Comment on above: Performed By: #### 2 175486 #### [facility] [address] [place] [address] Hemoglobin (Bld) [Mass/Vol] 13.1 g/dL Normal 12.0-16.0 [facility] Comment on above: Performed By: #### 2 [id number] #### [facility] [address] [place] [address] 83016 Lymphocytes (Bld) [#/Vol] 0.8 E9/L Low 1.0-4.0 [facility] Comment on above: Performed By: #### 2 [id number] #### [facility] [address] [place] [address] 00206 Lymphocytes/100 WBC (Bld) 9.5 % Low 14.0-50.0 [facility] Comment on above: Performed By: #### 2 190745 #### [facility] [address] [place] [address] MCH (RBC) [Entitic mass] 30.8 pg Normal 27.0-34.0 [facility] Comment on above: Performed By: #### 2 [id number] #### [facility] [address] [place] [address] 70474 MCHC (RBC) [Mass/Vol] 33.2 g/dL Normal 31.4-36.0 [facility] Comment on above: Performed By: #### 2 355228 #### [facility] [address] [place] [address] 64795 MCV (RBC) [Entitic vol] 92.8 fL Normal 80.0-100.0 [facility] Comment on above: Performed By: #### 2 [id number] #### [facility] [address] [place] [address] 57321 Monocytes (Bld) [#/Vol] 0.6 E9/L Normal 0.2-1.0 [facility] Comment on above: Performed By: #### 2 [id number] #### [facility] [address] [place] [address] Neutrophils (Bld) [#/Vol] 7.3 E9/L Normal 2.0-7.5 [facility] Comment on above: Performed By: #### 2 [id number] #### [facility] [address] [place] [address] Neutrophils/100 WBC (Bld) 81.8 % High 36.0-75.0 [facility] Comment on above: Performed By: #### 2 [id number] #### [facility] [address] [place] [address] Platelet mean volume (Bld) [Entitic vol] 8.5 fL Normal 6.4-10.8 [facility] Comment on above: Performed By: #### 2 [id number] #### [facility] [address] [place] [address] Platelets (Bld) [#/Vol] 122.0 E9/L Low 150.0-500.0 [facility] Comment on above: Performed By: #### 2 [id number] #### [facility] [address] [place] [address] RBC (Bld) [#/Vol] 4.3 E12/L Normal 4.3-5.9 [facility] Comment on above: Performed By: #### 2 [id number] #### [facility] [address] [place] [address] WBC corrected for nucl RBC Auto (Bld) [#/Vol] 8.9 E9/L Normal 4.0-11.0 [facility] Comment on above: Performed By: #### 2 010236 #### [facility] [address] [place] [address] CHEMISTRYOrdered By: Lab ROP User on 02-22-2024 Glucose [Mass/Vol] 234 mg/dL High 55 - 99 mg/dL [facility] C POC Subsection Comment on above: Result Comment: Modesto vanegas RN/ POC Device SN [id number] 1 Invalid Interpretation Code [facility] POC Subsection POC User ID [id number] 1 Invalid Interpretation Code [facility] POC Subsection POC Username CAREY HATHAWAY Invalid Interpretation Code [facility] POC Subsection CHEMISTRYOrdered By: SYSTEM SYSTEM on [...] 01-29 Glucose [Mass/Vol] 234 mg/dL High 55-99 [facility] Comment on above: Result Comment: Modesto ANDRES Performed By: #### 2 [id number] #### [facility] [address] [place] [address] Glucose [Mass/Vol] 306 mg/dL High 55-99 [facility] Comment on above: Result Comment: Modesto ANDRES Performed By: #### 2 [id number] #### [facility] [address] [place] [address] Glucose [Mass/Vol] 303 mg/dL High 55-99 [facility] Comment on above: Result Comment: [place] ANDRES Performed By: #### 2 [id number] #### [facility] [address] [place] [address] Glucose [Mass/Vol] 212 mg/dL High 55-99 [facility] Comment on above: Result Comment: [place] ANDRES Performed By: #### 2 [id number] #### [facility] [address] [place] [address] HEMATOLOGYOrdered By: SYSTEM SYSTEM on 02-22-2024 Basophils/100 [...] Inpatient Clinical Summaryon 02-22-2024 Inpatient Clinical Summary [address] [address] Clinical Summary Person Information: Name: SHAHANA GRACE Age: 74 Years : 1950 Sex: Female PCP: ALBERTINA ARNDT DO Marital Status: Race: White Ethnicity: Non- or Language: Japanese Visit Id: Visit Reason: Polydipsia; Nausea; Hyperglycemia; hyperglycemia Speciality: Acuity: Enc Type: Inpatient Med Service: Medical Arrival: 02/19/2024 13:27:15 Discharge: Dispo Type: Admitted as IP to this Hosp Address: [address] [place] [id number] Provider Notes: Diagnosis: 1:Complicated urinary tract infection; [...] disease Urge incontinence Glucosuria 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 Comment: ISANJAY BARBARA J, have received the attached patient [...] to and afte (more content not included)... Normal [facility] Interdisciplinary Note - Galo e Manageron 02-22-2024 Interdisciplinary Note - Sql Programmer Pt is awake and alert in bed, previously rounded with Dr. Barrett. No family present. Pt is on phone with family providing updates at this time. Declines any concerns or DC needs. Medicare rights reviewed. . PCP verified and insurance information reviewed and DME discussed. Contact information provided and white board updated. [facility] Comment on above: Result Comment: Elec tromaxially Signed By: Samir MARCUM, Ayleen\.hector\Date and Time Signed: 02/22/24 09:22 EDT Monitor Recordon 02-22-2024 Monitor Record [id number]# 1.00TIFF [facility] Monitor Record [id number]# 1.00TIFF Normal [facility] Monitor Record [id number]# 1.00TIFF [facility] Progress Note-Physicianon Progress Note-Physician Subjective Day #4 IV Denzel Patient seen and examined this morning. She [...] Lymph Auto: 9.5 % Low (02/22/24 05:20:00) [place] Auto: 7 % (02/22/24 05:20:00) Eos Auto: 1.5 % (02/22/24 05:20:00) Basophil Auto: 0.2 % (02/22/24 05:20:00) Neutro Absolute: 7.3 E9/L (02/22/24 05:20:00) Lymph Absolute: 0.8 E9/L Low (02/22/24 05:20:00) [place] Absolute: 0.6 E9/L (02/22/24 05:20:00) Eos Absolute: [...] mg/dL High (02/22/24 11:20:00) POC Device SN: [id number] (02/22/24 11:20:00) POC User ID: [id number] (02/22/24 11:20:00) POC Username: POC Username (02/22/24 [...] p.o. 7. (more content not included)... Normal [facility] Comment on above: Result Comment: Elec tronically Signed By: Jhonny Barrett DO.br\Date and Time Signed: 02/22/24 13:48 EDT eGFRon 02-22-2024 eGFR 37 mL/min/1.73 m2 Low >=59 [facility] Comment on above: Order Comment: Order added by Discern Expert. Performed By: #### 1 [id number] #### [facility] [address] [place] [address] BMPon 02-21-2024 Anion gap [Moles/Vol] 13 mmol/L Normal - [facility] Comment on above: Performed By: #### 2 [id number] #### [facility] [address] [place] [address] Calcium [Mass/Vol] 7.7 mg/dL Low 8.9-11.1 [facility] Comment on above: Performed By: #### 2 [id number] #### [facility] [address] [place] [address] Chloride [Moles/Vol] 114 mmol/L High 101-111 [facility] Comment on above: Performed By: #### 2 [id number] #### [facility] [address] [place] [address] CO2 [Moles/Vol] 20 mmol/L Low 21-31 [facility] Comment on above: Performed By: #### 2 [id number] #### [facility] [address] [place] [address] Creatinine [Mass/Vol] 1.7 mg/dL High 0.5-1.3 [facility] Comment on above: Performed By: #### 2 [id number] #### [facility] [address] [place] [address] Glucose [Mass/Vol] 289 mg/dL High 55-199 [facility] Comment on above: Performed By: #### 2 [id number] #### [facility] [address] [place] [address] Potassium [Moles/Vol] 4.2 mmol/L Normal 3.5-5.3 [facility] Comment on above: Performed By: #### 2 426513 #### [facility] [address] [place] [address] Sodium [Moles/Vol] 143 mmol/L Normal 135-145 [facility] Comment on above: Performed By: #### 2 212327 #### [facility] [address] [place] [address] Urea nitrogen [Mass/Vol] 37 mg/dL High 5-21 [facility] Comment on above: Performed By: #### 2 [id number] #### [facility] [address] [place] [address] Urea nitrogen/Creatinine [Mass ratio] 22 No Units High 10-20 [facility] Comment on above: Performed By: #### 2 [id number] #### [facility] [address] [place] [address] C Urineon 02-21-2024 Bacteria identified Cx Nom [...] Locations R1: This test was performed at: [facility], [address] [place] [address], [phone] , , [facility] Comment on above: Performed By: #### 2 [id number] #### [facility] [address] [place] [address] CHEMISTRYOrdered By: SYSTEM SYSTEM on 02-21-2024 Anion [...] 01-29 Glucose [Mass/Vol] 323 mg/dL High 55-99 [facility] Comment on above: Result Comment: Modesto vanegas RN/ Performed By: #### 2 [id number] #### [facility] [address] [place] [address] Glucose [Mass/Vol] 240 mg/dL High 55-99 [facility] Comment on above: Result Comment: Modesto vanegas RN/ Performed By: #### 2 [id number] #### [facility] [address] [place] [address] Glucose [Mass/Vol] 287 mg/dL High 55-99 [facility] Comment on above: Performed By: #### 2 [id number] #### [facility] [address] [place] [address] Glucose [Mass/Vol] 201 mg/dL High 55-[address] [place] [address] Comment on above: Result Comment: [place] ANDRES Performed By: #### 2 [id number] #### [facility] [address] [place] [address] Glucose [Mass/Vol] 194 mg/dL High 55-99 [facility] Comment on above: Result Comment: Repe at Test Performed By: #### 2 [id number] #### [facility] [address] [place] [address] Consent for Anesthesiaon Consent for Anesthesia [id number]# 1.00TIFF Normal [facility] Consent for Procedure/Surger yon 02-21-2024 Consent for Procedure/Surgery [id number]# 1.00TIFF Normal [facility] [id number] 02-21-2024 HbA1c (Bld) [Mass fraction] 11.3 % High <=5.9 [facility] Comment on above: Performed By: #### 7 [id number] #### [facility] [address] [place] [address] Interdisciplinary Note - Galo e Manageron 02-21-2024 Interdisciplinary Note - Sql Programmer Patient is awake and alert in bed, previously rounded with Dr. Barrett. Pt is from home with spouse and he will transport at [place]. Pt was just up to bathroom and per nursing gait steady and declines any needs. Medicare rights reviewed. Pt states was told by they will be getting more blood work today, declines any concerns or DC needs. . PCP verified and insurance information reviewed and DME discussed. Contact information provided and white board updated. [facility] Comment on above: Result Comment: Elec tronically Signed By: Samir MARCUM, Ayelen\.hector\Date and Time Signed: 02/21/24 09:45 EDT Interdisciplinary Note - Soc ial Workeron 02-21-2024 Interdisciplinary Note - Offset Duplicating Machine Operator There was a positive SDOH screen for safety received in error. This patient lives with her spouse and has been for 40 years. She voiced that she has no safety concerns. There were no psychosocial needs identified. [facility] IntraOperative Documentson 0 02-21-2024 IntraOperative Documents [id number]# 1.00TIFF [facility] Main OR Intraoperative Recor don 02-21-2024 Main OR Intraoperative Record IntraOp Document Type FT Summary Primary Physician: Glynn DENT MD Finalized Date/Time: 02/21/24 14:17:37 Pt. Name: SHAHANA GRACE./Sex: 1950 Female Med Rec #: [id number] Physician: Glynn ALARCON DO Financial #: [id number] Pt. Type: I Room/Bed: [place] [address] Admit/Disch: 02/19/24 13:27:15 - Institution: Case Times FT Entry 1 Patient Times In Room 02/20/24 10:16:00 Out Room 02/20/24 10:45:00 Procedure Times Start 02/20/24 10:29:00 Stop 02/20/24 10:37:00 Anesthesia Times Start 02/20/24 10:16:00 Stop 02/20/24 10:45:00 Last Modified By: Franklin MARCUM, Shraa Muñiz 02/20/24 13:29:15 General Comments: 02/21/24 Chart opened to review and send charges LRoth CSFA Case Attendance FT Entry 1 Entry 2 Entry 3 Case Attendee MD Ingrid, Jossy DENT MD, Glynn Reid RN, Shara Muñiz Role Performed Anesthesiologist of Surgeon - Primary Mooner - Primary Record Time In 02/20/24 10:16:00 [...] RT(R), Fallon Role Performed Scrub - Primary PHARMACEUTICAL BOTANIST Civil Design Specialist Time In 02/20/24 10:16:00 02/20/24 10:16:00 02/20/24 [...] CHISHOLM, Glynn Mcdermott, Given Participants MD Ingrid, Ahmad F, Shara Reid RN, Wilhelm CST, Naya Qureshi Alejandro, Christman RT(R), Fallon Time [...] and tissue Entry 1 Skin Integrity Intact, [place], Warm, and Skin Abnormality No Dry Outcomes Met? Yes Last Modified By: Shara Reid RN 02/20/24 11:11:55 Post-Care Text: The patient is free from signs and symptoms of injur (more content not included)... Normal [facility] Monitor Recordon 02-21-2024 Monitor Record [id number]# 1.00TIFF Normal [facility] Monitor Record [id number]# 1.00TIFF Normal [facility] Monitor Record [id number]# 1.00TIFF Normal [facility] Monitor Record [id number]# 1.00TIFF Normal [facility] Progress Note-Physicianon Progress Note-Physician Subjective Day [...] mg/dL High (02/21/24 11:33:00) POC Device SN: [id number] (02/21/24 11:33:00) POC User ID: [id number] (02/21/24 11:33:00) POC Username: TYRONE ZAPATA (02/21/24 [...] as needed (more content not included)... Normal [facility] Comment on above: Result Comment: Elec tronically Signed By: Jhonny Barrett DO\Date and Time Signed: 02/21/24 12:11 EDT eGFRon 02-21-2024 eGFR 31 mL/min/1.73 m2 Low >=59 [facility] Comment on above: Order Comment: Order added by Discern Expert. Performed By: #### 1 [id number] #### [facility] [address] [place] [address] BMPon 02-20-2024 Anion gap [Moles/Vol] 13 mmol/L Normal 6-16 [facility] Comment on above: Performed By: #### 2 [id number] #### [facility] [address] [place] [address] Calcium [Mass/Vol] 8.1 mg/dL Low 8.9-11.1 [facility] Comment on above: Performed By: #### 2 086103 #### [facility] [address] [place] [address] Chloride [Moles/Vol] 112 mmol/L High 101-111 [facility] Comment on above: Performed By: #### 2 [id number] #### [facility] [address] [place] [address] CO2 [Moles/Vol] 24 mmol/L Normal 21-31 [facility] Comment on above: Performed By: #### 2 609487 #### [facility] [address] [place] [address] Creatinine [Mass/Vol] 2.1 mg/dL High 0.5-1.3 [facility] Comment on above: Performed By: #### 2 374803 #### [facility] [address] [place] [address] Glucose [Mass/Vol] 301 mg/dL High 55-199 [facility] Comment on above: Performed By: #### 2 [id number] #### [facility] [address] [place] [address] Potassium [Moles/Vol] 4.4 mmol/L Normal 3.5-5.3 [facility] Comment on above: Performed By: #### 2 291200 #### [facility] [address] [place] [address] Sodium [Moles/Vol] 145 mmol/L Normal 135-145 [facility] Comment on above: Performed By: #### 2 236161 #### [facility] [address] [place] [address] Urea nitrogen [Mass/Vol] 38 mg/dL High 5-21 [facility] Comment on above: Performed By: #### 2 779521 #### [facility] [address] [place] [address] Urea nitrogen/Creatinine [Mass ratio] 18 No Units Normal 10-20 [facility] Comment on above: Performed By: #### 2 737251 #### [facility] [address] [place] [address] CBC w/ Auto Diffon 4 Basophils/100 WBC (Bld) 0.3 % Normal 0.0-2.0 [facility] Comment on above: Performed By: #### 2 773482 #### [facility] [address] [place] [address] Basophils/Leukocytes Auto (Bld) [Pure # fraction] 0.0 E9/L Normal 0.0-0.2 [facility] Comment on above: Performed By: #### 2 [id number] #### [facility] [address] [place] [address] Eosinophils (Bld) [#/Vol] 0.0 E9/L Normal 0.0-0.5 [facility] Comment on above: Performed By: #### 2 421776 #### [facility] [address] [place] [address] Eosinophils/100 WBC (Bld) 0.1 % Normal 0.0-8.0 [facility] Comment on above: Performed By: #### 2 [id number] #### [facility] [address] [place] [address] Erythrocyte distribution width (RBC) [Ratio] 14.0 % Normal 10.9-14.2 [facility] Comment on above: Performed By: #### 2 394126 #### [facility] [address] [place] [address] Hematocrit (Bld) [Volume fraction] 45.0 % Normal 34.0-46.0 [facility] Comment on above: Performed By: #### 2 569294 #### [facility] [address] [place] [address] Hemoglobin (Bld) [Mass/Vol] 14.8 g/dL Normal 12.0-16.0 [facility] Comment on above: Performed By: #### 2 [id number] #### [facility] [address] [place] [address] Lymphocytes (Bld) [#/Vol] 1.3 E9/L Normal 1.0-4.0 [facility] Comment on above: Performed By: #### 2 752376 #### [facility] [address] [place] [address] Lymphocytes/100 WBC (Bld) 9.6 % Low 14.0-50.0 [facility] Comment on above: Performed By: #### 2 328322 #### [facility] [address] [place] [address] MCH (RBC) [Entitic mass] 30.8 pg Normal 27.0-34.0 [facility] Comment on above: Performed By: #### 2 947806 #### [facility] [address] [place] [address] MCHC (RBC) [Mass/Vol] 32.9 g/dL Normal 31.4-36.0 [facility] Comment on above: Performed By: #### 2 200374 #### [facility] [address] [place] [address] MCV (RBC) [Entitic vol] 93.5 fL Normal 80.0-100.0 [facility] Comment on above: Performed By: #### 2 [id number] #### [facility] [address] [place] [address] Monocytes (Bld) [#/Vol] 0.9 E9/L Normal 0.2-1.0 [facility] Comment on above: Performed By: #### 2 [id number] #### [facility] [address] [place] [address] Neutrophils (Bld) [#/Vol] 11.0 E9/L High 2.0-7.5 [facility] Comment on above: Performed By: #### 2 172093 #### [facility] [address] [place] [address] Neutrophils/100 WBC (Bld) 82.9 % High 36.0-75.0 [facility] Comment on above: Performed By: #### 2 [id number] #### [facility] [address] [place] [address] Platelet mean volume (Bld) [Entitic vol] 8.2 fL Normal 6.4-10.8 [facility] Comment on above: Performed By: #### 2 [id number] #### [facility] [address] [place] [address] Platelets (Bld) [#/Vol] 144.0 E9/L Low 150.0-500.0 [facility] Comment on above: Performed By: #### 2 [id number] #### [facility] [address] [place] [address] RBC (Bld) [#/Vol] 4.8 E12/L Normal 4.3-5.9 [facility] Comment on above: Performed By: #### 2 [id number] #### [facility] [address] [place] [address] WBC corrected for nucl RBC Auto (Bld) [#/Vol] 13.2 E9/L High 4.0-11.0 [facility] Comment on above: Performed By: #### 2 [id number] #### [facility] [address] [place] [address] CHEMISTRYOrdered By: Abisai Lutz on 02-20-2024 HbA1c (Bld) [Mass fraction] 11.3 % High <=5.9% [facility] ChemAutoSS CT Abdomen/Pelvis w/o Contra valerie 02-20-2024 CT Abdomen/Pelvis w/o Contrast Exam Date/Time: [...] Oral contrast amount in ml's: 0 Normal [facility] Capillary Glucose POCon 01-29 Glucose [Mass/Vol] 302 mg/dL High 55-99 [facility] Comment on above: Result Comment: [place] ANDRES Performed By: #### 2 [id number] #### [facility] [address] [place] [address] Glucose [Mass/Vol] 262 mg/dL High 55-99 [facility] Comment on above: Result Comment: [place] ANDRES Performed By: #### 2 [id number] #### [facility] [address] [place] [address] Glucose [Mass/Vol] 192 mg/dL High 55-99 [facility] Comment on above: Result Comment: [place] ANDRES Performed By: #### 2 [id number] #### [facility] [address] [place] [address] Glucose [Mass/Vol] 202 mg/dL High 55-99 [facility] Comment on above: Result Comment: [place] ANDRES Performed By: #### 2 [id number] #### [facility] [address] [place] [address] Glucose [Mass/Vol] 249 mg/dL High 55-99 [facility] Comment on above: Result Comment: [place] ANDRES Performed By: #### 2 [id number] #### [facility] [address] [facility] [address] Glucose [Mass/Vol] 384 mg/dL High 55-99 [facility] Comment on above: Result Comment: Modesto vanegas RN/ Performed By: #### 2 [id number] #### [facility] [address] [place] [id number] Consultation Noteon 02-20-20 24 Consultation Note Patient: SHAHANA GRACE Age: 74 years Sex: Female : 1950 Associated Diagnoses: None Author: Glynn DENT MD Chief Complaint 02/19/2024 20:18 EDT Hyperglycemia 02/19/2024 13:28 EDT pt presents to ed via [facility] d/t hyperglycemia. pt reports not [...] BID, # 10 tab(s), Refills(s) 0, Pharmacy: [facility], 160.5, cm, 08/05/23 13:21:00 EST, Height/Length Dosing, 83, kg, 08/05/23 13:21:00 EST, Weight Dosing Klor-Con/EF 25 mEq oral tablet, effervescent: 25 mEq = 1 tab(s), Oral, Daily, dissolve in 4 ounces of water, # 30 tab(s), Refills(s) 10, Pharmacy: [facility], 158, cm, 02/08/23 12:39:00 EDT, Height/Length Dosing, 82, kg, 02/08/23 12:39:00 EDT, Weight Dosing Liver panel: Liver panel, Print Requisition, Supply Metoprolol tartrate 50 mg Tab: 50 mg = 1 tab(s), Oral, BID, # 120 tab(s), Refills(s) 0, Pharmacy: [facility]/pharmacy #[id number], 157.5, cm, 06/10/21 10:56:00 EDT, Height/Length Dosing, 79.4, kg, 06/10/21 10:56:00 EDT, Weight Dosing NS Flush 10 mL: See Instructions, 60 EA, Refill(s) 0, 10 mL IV Pushprior to and after administration of fluconazole and as needed Vesicare 10 mg Tab: 10 mg = 1 tab(s), Oral, Daily, # 14 tab(s), Refills(s) 0, Pharmacy: [facility], 158, cm, 05/09/23 8:54:00 EDT, Height/Length Dosing, 90.4, kg, 05/09/23 8:54:00 EDT, Weight Dosing lisinopril 5 mg Tab: 5 mg = 1 tab(s), Oral, BID, # 120 tab(s), Refills(s) 0, Pharmacy: [facility]/pharmacy #[id number], 157.5, cm, 06/10/21 10:56:00 EDT, Height/Length Dosing, 79.4, kg, 06/10/21 10:56:00 EDT, Weight Dosing meclizine 12.5 mg Tab: 12.5 mg = 1 tab(s), Oral, TID, PRN for dizziness, # 15 tab(s), Refills(s) 0, Pharmacy: [facility], 157, cm, 11/13/22 23:40:00 EDT, Height/Length Dosing, 83.2, kg, 11/13/22 23:40:00 EDT, Weight Dosing Documented Medications Documented Basaglar KwikPen 100 units/mL subcutaneous solution: 40 unit(s), SubCutaneous, qAM, Refills(s) 0, Blood glucose Plavix 75 mg Tab: See Instructions, Mo (more content not included)... Normal [facility] Comment on above: Result Comment: Elec tronically Signed By: JAILENE CHISHOLM, Glynn Neff.br\Date and Time Signed: 02/20/24 10:48 EDT ED Note-Physicianon 02-20-20 ED Note-Physician Basic Information Time Seen: Cj CASTANEDA, Luis Otto 02/19/2024 13:34 Chief Complaint pt presents to ed via [facility] d/t hyperglycemia. pt reports not feeling well [...] mL, Inject (more content not included)... Normal [facility] Comment on above: Result Comment: Elec [...] Date/Time: 02/20/24 13:31:52 Pt. Name: SHAHANA GRACE David Royal./Sex: 1950 Female Med Rec #: [id number] Physician: Glynn ALARCON DO Financial #: [id number] Pt. Type: I Room/Bed: [place] [address] Admit/Disch: 02/19/24 13:27:15 - Institution: Case Times [...] Role Performed Anesthesiologist of Surgeon - Primary Mooner - Primary Record Time In 02/20/24 10:16:00 02/20/24 10:16:00 02/20/24 10:16:00 Time Out 02/20/24 10:45:00 02/20/24 10:45:00 02/20/24 10:45:00 Procedure CYSTOSCOPY STENT CYSTOSCOPY STENT CYSTOSCOPY STENT INSERTION INSERTION INSERTION Comments Last Modified By: Franklin MARCUM, Shara Reid RN, Shara Reid RN, Shara Muñiz 02/20/24 Celia P 02/20/24 Celia Muñiz 02/20/24 13:29:15 13:29:15 13:29:15 Entry 4 Entry 5 Entry 6 Case Attendee Isaias KIDD, Nael Us RT(R), Fallon Role Performed Scrub - Primary PHARMACEUTICAL BOTANIST Civil Design Specialist Time In 02/20/24 10:16:00 02/20/24 10:16:00 02/20/24 [...] 10:29:00 Outcomes Met? Yes Last Modified By: Frankiln MARCUM, Shara Muñiz 02/20/24 13:31:42 Post-Care Text: [...] Left flank pain. Last Modified By: Shara Ried RN 02/20/24 11:23:08 Post-Care Text: The patient is free from signs and symptoms of infection Skin Assessment (Pre Procedure) FT Pre-Care Text: Implements protective measures to prevent skin/ tissue injury due to thermal or mechanical sources Evaluates for signs and symptoms of physical injury to skin and tissue Entry 1 Skin Integrity Intact, [place], Warm, and Skin Abnormality No Dry Outcomes Met? Yes Last Modified By: Shara Reid RN 02/20/24 11:11:55 Post-Care Text: The patient is free from signs and symptoms of injury caused by extraneous objects Patient Positioning FT Pre-Care Text: Identi (more content not included)... Normal [facility] Main OR PACU I Recordon 01-29 Main OR PACU I Record PACU Phase I Document Type FT Summary Primary Physician: Glynn DENT MD Finalized Date/Time: 02/20/24 11:40:13 Pt. Name: SHAHANA GRACE/Sex: 1950 Female Med Rec #: [id number] Physician: Glynn ALARCON DO Financial #: [id number] Pt. Type: I Room/Bed: [facility]/ Admit/Disch: 02/19/24 13:27:15 - Institution: Case Times [...] By: Fannie Marcos RN 02/20/24 11:40 Normal [facility] Main OR Preoperative Recordo n 06-23-2024 Main OR Preoperative Record Holding Area Document Type FT Summary Primary Physician: Glynn DENT MD Finalized Date/Time: 02/20/24 13:32:52 Pt. Name: SHAHANA GRACE /Sex: 1950 Female Med Rec #: [id number] Physician: Glynn ALARCON DO Financial #: [id number] Pt. Type: I Room/Bed: [facility]/ Admit/Disch: 02/19/24 13:27:15 - Institution: Case Times [...] By: Shara Reid RN 02/20/24 13:32 Normal [facility] Monitor Recordon 02-20-2024 Monitor Record [id number]# 1.00TIFF Normal [facility] Monitor Record [id number]# 1.00TIFF Normal [facility] Monitor Record [id number]# 1.00TIFF Normal [facility] Monitor Record [id number]# 1.00TIFF Normal [facility] Monitor Record [id number]# 1.00TIFF Normal [facility] Monitor Record [id number]# 1.00TIFF Normal [facility] Operative Reporton Operative Report Patient: SHAHANA GRACE Age: 74 years Sex: Female : 1950 Associated Diagnoses: None Author: Glynn DENT MD Postoperative Information Procedure: 1. Cystoscopy. 2. Bilateral retrograde pyelogram. 3. Placement of 6 Samoan variable length right ureteral stent. #4. Extraction [...] ureter sent for stone analysis. Prosthesis: 6 Samoan variable length right ureteral stent. . Estimated [...] 2% lidocaine gel per urethra. A 22 Samoan Stortz cystoscope was passed per urethra and into the bladder. Careful panendoscopy in the bladder revealed diffuse cystitis with copious inflammatory debris on the base of the bladder. This was irrigated out. There was no evidence of any tumors or stones within the bladder. I then passed a 8 Samoan cone-tip catheter through the scope and cannulated [...] the kidney. I then slid a 6 Samoan variable length ureteral stent over the wire up the ureter and into the kidney. The wire was removed and there were good curls in the kidney and in the bladder. The bladder was drained of its contents and the scope was then removed. She was then transferred to a rspringfield bed and wheeled to PACU in stable condition. Considering how irritated her bladder appeared, she may require Diflucan postoperatively considering she had budding yeast on her UA through the ER and that she also had fungemia during her last hospitalization.. Anesthesia type: General. Normal [facility] Comment on above: Result Comment: Elec tronically Signed By: JAILENE CHISHOLM, Glynn Valdes\Date and Time Signed: 02/20/24 10:57 EDT XR [...] mGy = na DAP = na Normal [facility] XR Urography Retrograde Bila teralon 02-20-2024 [...] mGy = 12.80 DAP = 1080.56 Normal [facility] eGFRon 02-20-2024 eGFR 24 mL/min/1.73 m2 Low >=59 [facility] Comment on above: Order Comment: Order added by Discern Expert. Performed By: #### 1 [id number] #### [facility] [address] [place] [address] BMPon 02-19-2024 Calcium [Mass/Vol] 9.2 mg/dL Normal 8.9-11.1 [facility] Comment on above: Performed By: #### 2 [id number] #### [facility] [address] [place] [address] Chloride [Moles/Vol] 103 mmol/L Normal 101-111 [facility] Comment on above: Performed By: #### 2 [id number] #### [facility] [address] [place] [address] CO2 [Moles/Vol] 25 mmol/L Normal 21-31 [facility] Comment on above: Performed By: #### 2 [id number] #### [facility] [address] [place] [address] Potassium [Moles/Vol] 4.4 mmol/L Normal 3.5-5.3 [facility] Comment on above: Performed By: #### 2 [id number] #### [facility] [address] [place] [address] Sodium [Moles/Vol] 141 mmol/L Normal 135-145 [facility] Comment on above: Performed By: #### 2 [id number] #### [facility] [address] [place] [address] Glucose [Mass/Vol] 559 mg/dL Abnormal 55-199 [facility] Comment on above: Result Comment: Crit ical Result [id number] Called to and read back by: MADELINE FERNANDEZ at: 02/19/2024 14:58:18 by:PETE Critical Result Verified by Repeat Analysis Performed By: #### 2 [id number] #### [facility] [address] [place] [address] Anion gap [Moles/Vol] 17 mmol/L High 6-16 [facility] Comment on above: Performed By: #### 2 [id number] #### [facility] [address] [place] [address] Creatinine [Mass/Vol] 2.1 mg/dL High 0.5-1.3 [facility] Comment on above: Performed By: #### 2 [id number] #### [facility] [address] [place] [address] Urea nitrogen [Mass/Vol] 35 mg/dL High 5-21 [facility] Comment on above: Performed By: #### 2 [id number] #### [facility] [address] [place] [address] Urea nitrogen/Creatinine [Mass ratio] 17 No Units Normal 10-20 [facility] Comment on above: Performed By: #### 2 [id number] #### [facility] [address] [place] [address] BOHBon 02-19-2024 Beta HB Qnt 0.72 mmol/L High 0.02-0.27 [facility] Comment on above: Performed By: #### 2 [id number] #### [facility] [address] [place] [address] CBC w/ Auto Diffon 4 Basophils/100 WBC (Bld) 0.2 % Normal 0.0-2.0 [facility] Comment on above: Performed By: #### 2 135994 #### [facility] [address] [place] [address] Basophils/Leukocytes Auto (Bld) [Pure # fraction] 0.0 E9/L Normal 0.0-0.2 [facility] Comment on above: Performed By: #### 2 [id number] #### [facility] [address] [place] [address] Eosinophils (Bld) [#/Vol] 0.0 E9/L Normal 0.0-0.5 [facility] Comment on above: Performed By: #### 2 [id number] #### [facility] [address] [place] [address] Eosinophils/100 WBC (Bld) 0.0 % Normal 0.0-8.0 [facility] Comment on above: Performed By: #### 2 454999 #### [facility] [address] [place] [address] Erythrocyte distribution width (RBC) [Ratio] 13.5 % Normal 10.9-14.2 [facility] Comment on above: Performed By: #### 2 554135 #### [facility] [address] [place] [address] Hematocrit (Bld) [Volume fraction] 54.0 % High 34.0-46.0 [facility] Comment on above: Performed By: #### 2 [id number] #### [facility] [address] [place] [address] Hemoglobin (Bld) [Mass/Vol] 17.8 g/dL High 12.0-16.0 [facility] Comment on above: Performed By: #### 2 676223 #### [facility] [address] [place] [address] Lymphocytes (Bld) [#/Vol] 0.6 E9/L Low 1.0-4.0 [facility] Comment on above: Performed By: #### 2 571189 #### [facility] [address] [place] [address] Lymphocytes/100 WBC (Bld) 4.0 % Low 14.0-50.0 [facility] Comment on above: Performed By: #### 2 126621 #### [facility] [address] [place] [address] MCH (RBC) [Entitic mass] 30.5 pg Normal 27.0-34.0 [facility] Comment on above: Performed By: #### 2 599495 #### [facility] [address] [place] [address] MCHC (RBC) [Mass/Vol] 33.0 g/dL Normal 31.4-36.0 [facility] Comment on above: Performed By: #### 2 038598 #### [facility] [address] [place] [address] MCV (RBC) [Entitic vol] 92.2 fL Normal 80.0-100.0 [facility] Comment on above: Performed By: #### 2 295610 #### [facility] [address] [place] [address] Monocytes (Bld) [#/Vol] 0.8 E9/L Normal 0.2-1.0 [facility] Comment on above: Performed By: #### 2 846570 #### [facility] [address] [place] [address] Neutrophils (Bld) [#/Vol] 12.9 E9/L High 2.0-7.5 [facility] Comment on above: Performed By: #### 2 740358 #### [facility] [address] [place] [address] Neutrophils/100 WBC (Bld) 90.2 % High 36.0-75.0 [facility] Comment on above: Performed By: #### 2 [id number] #### [facility] [address] [place] [address] Platelet mean volume (Bld) [Entitic vol] 8.2 fL Normal 6.4-10.8 [facility] Comment on above: Performed By: #### 2 827145 #### [facility] [address] [place] [address] Platelets (Bld) [#/Vol] 140.0 E9/L Low 150.0-500.0 [facility] Comment on above: Performed By: #### 2 494490 #### [facility] [address] [place] [address] RBC (Bld) [#/Vol] 5.9 E12/L Normal 4.3-5.9 [facility] Comment on above: Performed By: #### 2 649453 #### [facility] [address] [place] [address] WBC corrected for nucl RBC Auto (Bld) [#/Vol] 14.3 E9/L High 4.0-11.0 [facility] Comment on above: Performed By: #### 2 926898 #### [facility] [address] [place] [address] CHEMISTRYOrdered By: SYSTEM SYSTEM on 02-19-2024 Lactic [...] back by: TOÑO HOFFMAN at: 02/19/2024 15:47:46 by:PETE Interpretive Data: T he 95% CI (Confidence Interval) PPV (Positive Predictive Value) for myocardial infarction in females is 38 pg/mL, in males 51 pg/mL. The results should be used in conjunction with clinical conditions of myocardial infarction. (Access High Sensitivity Troponin I Instructions For Use, Jairo Elsy, March 2018) Albumin [Mass/Vol] 4.1 g/dL Normal [...] Remisol Chem Comment on above: Result Comment: Crimike ical Result [id number] Called to and read [...] 23.4 s Low 25.1 - 36.5 second(s) [facility] Auto Coag Comment on above: Interpretive Data: [...] the same coagulation reagent and instrumentation as [facility]. Currently there are no coagulation studies available worldwide for children to 14 days, and no normal ranges. Heparin therapeutic range (represented by Anti-Factor Xa activity of 0.2 - 0.4 U/mL) corresponds to PTT of 56.6 - 109.0 sec. INR Coag (PPP) [Relative time] 0.93 {INR} Invalid Interpretation Code [facility] Auto Coag Comment on above: Interpretive Data: I NR results are specifically intended to assess patients stabilized on long-term Anticoagulation therapy suggested INR s Less Intensive Anticoagulation 2.0 3.0 Conventional Range 3.0 4.5 PT Coag (PPP) [Time] 10.4 s Normal 9.4 - 1 2.5 second(s) [facility] Auto Coag Comment on above: Interpretive Data: [...] the same coagulation reagent and instrumentation as [facility]. Currently there are no coagulation studies available worldwide for children to 14 days, and no normal ranges. Capillary Glucose POCon 01-29 Glucose [Mass/Vol] 419 mg/dL High 55-99 [facility] Comment on above: Result Comment: Modesto vanegas RN/ Performed By: #### 2 [id number] #### [facility] [address] [place] [address] Glucose [Mass/Vol] 426 mg/dL [address] Comment on above: Performed By: #### 2 [id number] #### [facility] [address] [place] [address] Glucose [Mass/Vol] 436 mg/dL [facility] 5599 [facility] Comment on above: Result Comment: Sheryl perla Meter Performed By: #### 2 [id number] #### [facility] [address] [place] [address] Consent for Treatmenton 01-29 Consent for Treatment [id number] .00TIFF Normal [facility] ED Clinical Summaryon 2023 ED Clinical Summary [address] [id number] ED Clinical Summary Person Information Name: SHAHANA GRACE/[facility] Age: 74 Years : 1950 Sex: Female Language: Japanese PCP: ALBERTINA ARNDT DO Marital Status: Visit Id: Visit Reason: Polydipsia; Nausea; Hyperglycemia; hyperglycemia Speciality: Acuity: 3 Enc Type: Inpatient Med Service: Emergency Arrival: 02/19/2024 13:27:15 Discharge: LOS: 000 06:38 Checkin: 02/19/2024 13:27:15 Checkout: 02/19/2024 20:05:37 Dispo Type: Admitted as IP to this [facility] EVENTS: Event Name Event Status Request Date/Time [...] 02/19/2024 19:56:25 02/19/2024 19:56:25 02/19/2024 19:56:26 ADDRESS: [address] [place] [phone] [facility] DOC NOTES: MEDICAL INFORMATION: Prescriptions Given: Medications [...] Tablets By (more content not included)... Normal [facility] ED Patient Education Noteon 02-19-2024 ED Patient Education Note Normal [facility] ED Patient Summaryon 024 ED Patient Summary [place] [id number] Patient Discharge Instructions Person Information Name: SHAHANA GRACE Age: 74 Years Arrival Date: 02/19/2024 13:27:15 Discharge Diagnosis: 1:GIOVANNY (acute kidney injury); 2:Nausea; 3:Abdominal pain; 4:Hyperglycemia; 5:UTI (urinary tract infection); 6:Hypertensive crisis; 7:Kidney stone on right side; 8:Hydronephrosis, right Primary Care Physician: ALBERTINA ARNDT DO Provider Information Primary Provider: Christiano Gutiérrez, Rose Burger Advanced Guidance Adviser:Cj CASTANEDA, Luis Otto The exam and treatment you received in the Emergency Department were for an urgent problem and are not intended as complete care. It is important that you follow up with a doctor, nurse practitioner, or physician?s elementary assistant principal for ongoing care. If your symptoms become [...] opioids can be used to help relieve qbxpwxdo-cx-jtjxmd pain and are often prescribed following a [...] be struggling with addiction, tell your health care advocate and ask for guidance or call [facility]S National Helpline at 7-581-279-HELP. v S (more content not included)... Normal [facility] EMS Documentationon 02-19-20 24 EMS Documentation Please click on link to see report [id number] CiX5+prnDQolQUJDcGRmI CDbZcX6STqqJVLfXR8php 7ADKcGT3ZsUROpXIV8Ki9 ORQuzNMo3FCBhBQ1EX5np IKTjPIJwUv3ZzW6rAKSez wPcLRZGJ19uTQdqRsGaFW gwSCPpGXg3VdTIAd6cUGA gICAgICAgICAgICAgICAg ICAgICAgICAgICAgICAgI CAgICAgICAgICAgICAgIC AgICAgICAgICAgICAgICA gICAgICAgICAgDQplbmRv JqbFGj5LyADuGq0FCdBlS jUNCjAwMDAwMDAwMzIgMD YnDRQnfd0SYASfVKDgYJV 1MSAwMDAwMCBuDQowMDAw SSDfFNo3FXLzYZJbEZ1PO fCyNMGyNET5LFNnEKXdEY Pchw3KYDJaJAWyAJa1TVK wMDAwMCBuDQowMDAwMDAy GfKeFUEtZSLoTZ4OPiSaF DAwMDIyOTUgMDAwMDAgbg 7AWGWnGMRdQuB8DKNeVQF wMCBuDQowMDAwMDAyNDI0 TIXqVSXrKT0ANtThVURiP TJ7IEQpQTXwYQOsax5KGG AwMDAwMjgyOSAwMDAwMCB hFCifICWcQPRuDBh7WHOb GTUfUM3QQjCgFUYwZCG2E mCqEXJrHFDfkp5RUIInIE AwMzYyMCAwMDAwMCBuDQo wMDAwMDAzODYxIDAwMDAw MN3WIlUmOBIwWBNkWRYaW QIeCWRvvv5WMQHpVFYhOQ K6GhLdNUZmJBOfVPzrUCO pMMY6KpY1GNOaBUOhFV7G WuYoPTNgGMO7IFVhOFUyM OXfqm9CGIIeMGHzYZL1SV AwMDAwMCBuDQowMDAwMDA 0YYG9GTTuMVJgUY3GBfYh DBClYIT9PTWlKARfKVGqr k1OUQStFKLrHRDkUvNtEQ AwMCBuDQowMDAwMDUwMjQ 7FDFqZURxWP8CIbBbMVIs QMztZXKuHLKxMZFskm8Vv JFbaBdnuu7EOAuDT1kHDM w4VXMYKCDOJHLHNiVZLur uALJ4FGAbPPRUYUSsWSMU MTY+Vjy9BFQ1UVamPaM9C 9N6QJAVVJR0Wjk0XCMZNr OmQcP7JJ7zGe0PeqT9GYP 3AFmrDdkfEu0yyBAjThOm APRGD1UhsaTgJWUTZ8Yph KBzWRRaD8FQBYP9Bu04Kv osnQmMXUP1YHXAUAwjKE3 TYbvFTaShFQwpWd19Z5EA e2S2OnFwL3MBuKkUhxIYT ObaO8zDsTY7p2wqxBwMjK NGbXlkOGdJcndPalFSQUl iFRRTyR53tenWN7ZkFQk8 Q0MYUe0JJSbfXzHjgD3Aj ByrGLI2iH2kLWRPQWuEPw qxLS8VBUXMRLd6ZCn+Astrid gICAgICAgICAgICAgICAg ICAgICAgICAgICAgICAgI CAgICAgICAgICAgICAgIC AgICAgICAgICAgICAgICA gICAgICAgICAgICAgICAg ICAgICAgICAgICAgICAgI CAgICAgICAgICAgICAgIC AgICAgICAgICAgICAgICA gICAgICAgICAgICAgICAg ICAgICAgICAgICAgICAgI CAgICAgICAgICAgICAgIC AgICAgICAgICAgICAgICA gICAgICAgICAgICAgICAg ICAgICAgICAgICAgICAgI CAgICAgICAgICAgICAgIC AgICAgICAgICAgICAgICA gICAgICAgICAgICAgICAg ICAgICAgICAgICAgICAgI CAgICAgICAgICAgICAgIC AgICAgICAgICAgICAgICA gICAgICAgICAgICAgICAg ICAgICAgICAgICAgICAgI CAgICAgICAgICAgICAgIC AgICAgICAgICAgICAgICA gICAgICAgICAgICAgICAg ICAgICAgICAgICAgICAgI CAgICAgICAgICAgICAgIA 3Bk1FbiaJ3geLpHRewNOp nYRMVWv7BUTyaYzUgMJ9o if8LZRwXZ52vfKLdCIBfT XObADLgGfcnC5HnagKvyB dbnjGvGoLwWQXXVm6KnCE TBMmnB3T3gVdhXYBpDHmx WFFLMp1QLCpdZF0eUKDxF VGwBk6tRVesUPMwJWIcMZ xjZOZUPn4HrFBtWK7ALTJ xuQ8tNk9+DQplbmRvYmoN Ky8WCuWqRENxFcrSEmh2I q7RwZq6OTNtC7WbMDRdTB Fxw4DyYj0FUJ0noZpvCWW zEo6SSSWgFSm+Nz1Oq6Rn CTRyYEi9vMMcCBKbMMDqQ qNjTTGbBVXacDCPGBZ2HH GnOZbdzGOVxJ0XeQMRFXm AlOdlYHyWDaTFgFgaLKIL mfcAnJChNWJo7dB3ROVkY QVlGLE2qTAcFT1U2dlNtb 9IYiXj84I0I6bJzvgN2Ai UTGp3T0XtShjIwMIGlBLT GqXiEQ6spiIqA5OuTnzZH L2yRCtSTuDyXIK1pmXfmV 8ZFD3ze7FtOKbNNzH2AEN iy1BaLNu8DHrrA48vlBUd sNQjGvMyPIGeGi6LJ59oY NpqEn07IUiwWGIxOxPzFE r0Sm6EF6GcwlPegVCzZTW jIMZYL6Ytq807bmCusdJ1 NUsmYB5vbjQdqLN8OYamW WFiYzYgMjUgMCBSCj4+Cj 4+Xi5EaSSxRY4EEJhxDc6 +UJlkqhGnZpaKOf2UJeEl DIYvEdtNYiw7Ul7XOn73H GsiLYLgDqImCEc8Gc6TR8 ZpbHRlciAvRmxhdGVEZWN iUBGXP3zasjq6wDW1Yksw UpDhx2ZqQ8GjRMo5Xx7FZ 3YmVLT2OEl9Jz7NQBYwHh B8KsUfJRCOXv6VFd4KX8N 9WgT6oUTkB4Eydk8MK9G4 aJDxI7bMWqoxC1GOYn9KL uK4afWlpE6ArStkzpOvPq TlMjRQMFUwtTRSMLcwUih J0yTGL9sy3TKZn3AgFqNG KUNSDNnb1WbNdQZ5e6iW4 uJsVgoSwPHcyedQf1oUbJ 9KS1cU8K9JMX9ej1EaDMW wPLssycPhLffLEe8FDdSl OBLeNaaNGod3Bq8LAIJkR h9jxJFrMk9VWJWoVh1ZCz EnVv5KYyPlKg0EXsPiVl3 PWRS1Db0LDYE5gaAfRf6v YSAxCj4+DQplbmRvYmoNC t4KLnatMCBwRhwDRna1Xw 7YBRCtUe6ikPVuAj0lRRG xCj4+JXpobwRtBzkXVh7V MxhcAMPjRvdDAhf3Qi1XO PQhZj3biMUbVw2VGECqVg 5XOvWgFc0OUeMjHl5JQlI yIc3UHIM3Ty4CHMN0zoOy Fi9jACLxNz4+DQplbmRvY wtUDt7EYuhhIHJrZxpXJv n8Iu9SQQWjBt9ruTMeB4B KUR5VU8KiwZWgWHCHUKwQ Vn6Mt1fvFFLOL6Jad5Api hFjtfMTn186byMgHaPsZM YQFJglHJ1oa9CxkdckL6t xHZ91dHH3WYmXJ8R0GqH6 aNAdJ8T1cTCeJh1Fy3Rxb YCuGLFgSpMvGVJTNp1FvY UzQL7Gj125Vq6+DQplbmR eUwpFKl6YJkOoJMRmSsjA Rkn7Bc9ZKOHjWg8lmPVeA 8OHKH6JQ3CpuVMbSBQATC kMYk8Gi4epHHMBQ7GLFBA 9i8TzbOffFy2uWMvMI79j OHOcvR0nIZmUTNCkoSt3p ZnVI2HcQ1oqrME6QReONH 9aEPhPI1J3hKRkGN3bxwN gMAo+FwdqK0zNGA3FCJWE TONxO3euOV74zLM4Fu1PP vLaLm9Ov553EQOxZ4ZvzV KoqoWgWYIqXRYJZ4V0CdE 5hQGjM9EGVNYnjgGShWCz UzorZAsxRHVeIi0oqLdyN fFkCEI6UuA8YUFyLHn7Vs ZdCj4+DQplbmRvYmoNCg0 RLfOfVWOtBpbMDkb0Fy1U g5SgxjFjPHEcWdMlUOZcC r4NTSBLNPffvVUkHJvzRe o8Opw7Sl8FAGWwRI09KLA nJQ9wUQS4JonqLnljQ0Um WlEEL9ZvikVFId74BSacJ AmxDaz7MWGaKY56KTShLN R7OqQlCyNqQbS9GQX5UID eYvQdAWhnWCUaRi9Ec184 VtwaMSJyWWIpXCVFPo8Ig 657ZiOaTSVlK2DZRY7MP5 EfqWSgFSVGFIjATv5Ys3a lEWDNU3s2ESjlC6PrL4av PTDGM4L3IY1ZDMk6KpD2J Qx6It6EcNQkTV3Ey125NI NqS7OqjHHmvay+Ww6LPI2 kz6OxIYdHNkYnJZOhw6Kl NVh8HUzyMbqzeYPkON6Je PX8NSErX78kCQaxQMFvH8 JuZKF5Slv+Bh1Ss7DaWNC aGGx7zY5Ba39LKFAN7/6K KayDCEHs7eVt4oAFBSgHa W2V9XE7TBpceRF/XzNDE6 rCLLmm735RlPHti1P8DLK 3P6oGA/TGao/TePMKocOr rAETgT8YP3OmZi1YRXH93 xRwqG0/ovXOZE5hewg+hs 1Bjx0+ieTNa/TGXmHzdWo iNzfnfnBAGyAVVQUa+5j0 0rrXdkBIyLatdeybMG+j5 9O6fR9DPP03KoLsdDnh8C w8mzCF88knfPOWXsX6I69 mO4jy18mYOn/qNJVpRbRn lldtJFckGIzQiGzn7NIo/ 5f3+WpMWPdu4OAjQnstxO ji+KDHu9PHQObmHVkIiyp VwLLXJYeIbW4W3o27gmFC LH++5KY0iartaaghWKVzu lmisXi/iHt1dhL1t1u1jF iFNlQfSIS1ayNmeF4UGZ9 zj3MuBEgDHzQxTVXzl7Qx ZWt0QQkaVzOnNXLmopXtV 0xXJgFQALyZk7NvcQSqMh R3FTTUPYslESKgO8ZgMJU udEZvbnRzIFszNCAwIFJd Px9IndTkWNgzNyBkIRCnd tGzmKjrPGijI8XotEnmDR ZtTDfwARWLO5XpJY6wR64 fOUIlLkHkUOMBG3T7kYSb S9PdopOFYa2BOnUgWB7su f2OAYsgLIHjSY2qqu0KTS aSB8Chb8BOm842YI5KUUS RGQ8rT982mmmznf9aw1QX KFQHC4KXQGY8m2FbjXemM j3qJTeSJ64fHYXwwV2rSP bVTLNftSs8gDoMS4RuH6m suAO9ER (more content not included)... Normal [facility] EMS Documentation Please click on link to see report Normal [facility] Comment on above: Result Comment: Miss ing Attachment - total size limit for all attachments exceeded ekgattachments.pdf Can be viewed in source system Hep [facility] Panelon 02-19-2024 Albumin [Mass/Vol] 4.1 g/dL Normal 3.3-5.0 [facility] Comment on above: Performed By: #### 2 [id number] #### [facility] [address] [place] [address] Albumin/Globulin (S) [Mass conc ratio] 1.2 Normal 1.1-2.2 [facility] Comment on above: Performed By: #### 2 [id number] #### [facility] [address] [place] [address] ALP [Catalytic activity/Vol] 82 Int._Unit/L Normal 21-98 [facility] Comment on above: Performed By: #### 2 [id number] #### [facility] [address] [place] [address] ALT No additional P-5'-P [Catalytic activity/Vol] 11 Int._Unit/L Normal 6-46 [facility] Comment on above: Performed By: #### 2 [id number] #### [facility] [address] [place] [address] AST [Catalytic activity/Vol] 11 Int._Unit/L Normal 5-43 [facility] Comment on above: Performed By: #### 2 [id number] #### [facility] [address] [place] [address] Bilirubin [Mass/Vol] 1.1 mg/dL Normal 0.0-1.1 [facility] Comment on above: Performed By: #### 2 [id number] #### [facility] [address] [place] [address] Bilirubin.direct [Mass/Vol] 0.2 mg/dL Normal 0.0-0.4 [facility] Comment on above: Performed By: #### 2 [id number] #### [facility] [address] [place] [address] Bilirubin.indirect [Mass or moles/Vol] 0.9 mg/dL Normal 0.1-0.9 [facility] Comment on above: Performed By: #### 2 [id number] #### [facility] [address] [place] [address] Globulin (S) [Mass/Vol] 3.3 g/dL Normal 1.4-4.0 [facility] Comment on above: Performed By: #### 2 [id number] #### [facility] [address] [place] [address] Protein [Mass/Vol] 7.4 g/dL Normal 6.0-7.8 [facility] Comment on above: Performed By: #### 2 [id number] #### [facility] [address] [place] [address] Laboratory - Microbiology an d Antimicrobial susceptibilityOrdered By: Awilda Pritchard on 02-19-2024 Bacteria identified Cx Nom (U) <10,000 cfu/ml Mixed skin contaminants [facility] Lactic Acidon 02-19-2024 Lactic Acid Lvl 1.5 mmol/L Normal 0.5-2.2 [facility] Comment on above: Performed By: #### 2 [id number] #### [facility] [address] [place] [address] Lipase Levelon 02-19-2024 Lipase [Catalytic activity/Vol] 54 U/L Normal 13-58 [facility] Comment on above: Performed By: #### 2 [id number] #### [facility] [address] [place] [address] Magnesiumon 02-19-2024 Magnesium [Mass/Vol] 2.2 mg/dL Normal 1.3-2.4 [facility] Comment on above: Performed By: #### 2 [id number] #### [facility] [address] [place] [address] Message from Medicareon 01-29 Message from Medicare [id number]# 1.00TIFF [facility] Message from Medicare [id number]# 1.00TIFF Normal [facility] Monitor Recordon 02-19-2024 Monitor Record [id number]# 1.00TIFF Normal [facility] No Panel InformationOrdered By: ANGPROCESSSERVER MICROBIOLOGY on 02-19-2024 Blood Culture Charcoal No growth at 4 days. Final to follow at 7 days. [facility] Blood Culture Charcoal No growth at 4 days. Final to follow at 7 days. [facility] PT & PTTon 02-19-2024 aPTT Coag (PPP) [Time] 23.4 second(s) Low 25.1-36.5 [facility] Comment on above: Result Comment: Para meter 15 days - 4 weeks 1 - 5 months 6 - 11 months 1 - 5 years 6 - 10 years 11 - 17 years PTT Mean: 35.4 (27.6-45.6) Mean: 33.5 (24.8-40.7) Mean: 32.4 (25.1-40.7) Mean: 31.6 (24.0-39.2) Mean: 31.6 (26.9-38.7) Mean: 31.0 (24.6-38.4) Pediatric Reference ranges were obtained from a study by brett Pino prepared from 1437 samples obtained at 7 different centers using the same coagulation reagent and instrumentation as [facility]. Currently there are no coagulation studies available worldwide for children to 14 days, and no normal ranges. Heparin therapeutic range (represented by Anti-Factor Xa activity of 0.2 - 0.4 U/mL) corresponds to PTT of 56.6 - 109.0 sec. Performed By: #### 1 [id number] #### [facility] [address] [place] [address] INR Coag (PPP) [Relative time] 0.93 {INR} Invalid Interpretation Code [facility] Comment on above: Result Comment: INR results are specifically intended to assess patients stabilized on long-term Anticoagulation therapy suggested INR?s ?Less Intensive Anticoagulation? 2.0 ? 3.0 Conventional Range 3.0 ? 4.5 Performed By: #### 1 [id number] #### [facility] [address] [place] [address] PT Coag (PPP) [Time] 10.4 second(s) Normal 9.4-12.5 [facility] Comment on above: Result Comment: 15 d ays - 4 weeks 1 - 5 months 6 -11 months 1- 5 years 6-10 years 11 -17 years Mean: 11.2 (9.5-12.6) Mean: 11.0 (9.7-12.8) Mean: 11.0 (9.8-13.0) Mean: 11.3 (9.9-13.4) Mean: 11.7 (10.0-14.6) Mean: 11.8 (10.0 - 14.1) Pediatric Reference ranges were obtained from a study by Chris Lacey, et al. prepared from 1437 samples obtained at 7 different centers using the same coagulation reagent and instrumentation as [facility]. Currently there are no coagulation studies available worldwide for children to 14 days, and no normal ranges. Performed By: #### 1 [id number] #### [facility] [address] [place] [address] Pre-Arrival Noteon Pre-Arrival Note Normal [facility] Progress Note-Nurseon 2023 Progress Note-Nurse spoke with PASCUAL Smith about pt's blood sugar and BP. Per Luis, wait 15-20 mins and check BP again after stopping fluids Normal [facility] RAD - Preliminary Cat Scan R eporton 02-19-2024 RAD - Preliminary Cat Scan Report [id number]#1 .00TIFF Normal [facility] Troponin 0 Hr.on 02-19-2024 Troponin HS 45.80 pg/mL Abnormal 10.10-27.10 [facility] Comment on above: Result Comment: Crit ical [...] Sensitivity Troponin I Instructions For Use, Jairo Harleigh, March 2018) Performed By: #### 1 [id number] #### [facility] [address] [place] [address] Troponin 1 Hr.on 02-19-2024 Troponin HS 42.60 pg/mL Abnormal 10.10-27.10 [facility] Comment on above: Order Comment: 1446 Result [...] Sensitivity Troponin I Instructions For Use, Jairo Harleigh, March 2018) Performed By: #### 1 [id number] #### [facility] [address] [place] [address] UA with Cult Rflxon 02-19-20 24 Bacteria Auto Ql (U) 1+ /HPF Abnormal Trace Fish [facility] Comment on above: Performed By: #### 4 [id number] #### [facility] [address] [place] [address] Bilirubin Ql (U) Negative Normal Negative [facility] Comment on above: Performed By: #### 4 [id number] #### [facility] [address] [place] [address] Clarity (U) Turbid Abnormal Clear [facility] Comment on above: Performed By: #### 4 [id number] #### [facility] [address] [place] [address] Color (U) Light-Yellow Normal Yellow [facility] Comment on above: Result Comment: Micr oscopic readings are only performed on those samples that meet specific criteria set forth by [facility]. Performed By: #### 4 [id number] #### [facility] [address] [place] [address] Epithelial cells.squamous Auto (Urine sed) [#/Area] 5-8 Invalid Interpretation Code [facility] Comment on above: Performed By: #### 4 [id number] #### [facility] [address] [place] [address] Glucose Ql (U) 4+ mg/dL Abnormal Negative [facility] Comment on above: Performed By: #### 4 [id number] #### [facility] [address] [place] [address] Hemoglobin Auto test strip (U) [Mass/Vol] 2+ mg/dL Abnormal Negative [facility] Comment on above: Performed By: #### 4 [id number] #### [facility] [address] [place] [address] Ketones Auto test strip Ql (U) Trace Abnormal Negative [facility] Comment on above: Performed By: #### 4 [id number] #### [facility] [address] [place] [address] Leukocyte esterase Auto test strip Ql (U) 500 Sergio/uL Abnormal Negative [facility] Comment on above: Performed By: #### 4 [id number] #### [facility] [address] [place] [address] Mucus Auto Ql (U) Negative Normal Negative [facility] Comment on above: Performed By: #### 4 [id number] #### [facility] [address] [place] [address] Nitrite Auto test strip Ql (U) Negative Normal Negative [facility] Comment on above: Performed By: #### 4 [id number] #### [facility] [address] [place] [address] pH (U) 5.0 [pH] Invalid Interpretation Code 5.0-9.0 [facility] Comment on above: Performed By: #### 4 [id number] #### [facility] [address] [place] [address] Protein Ql (U) 1+ mg/dL Abnormal Negative [facility] Comment on above: Performed By: #### 4 [id number] #### [facility] [address] [place] [address] RBC Ql (U) 31-75 Abnormal 0-3 [facility] Comment on above: Performed By: #### 4 [id number] #### [facility] [address] [place] [address] Specific gravity (U) [Rel density] 1.030 Invalid Interpretation Code 1.005-1.030 [facility] Comment on above: Performed By: #### 4 [id number] #### [facility] [address] [place] [address] Urobilinogen (U) [Mass/Vol] Negative Normal Negative [facility] Comment on above: Performed By: #### 4 [id number] #### [facility] [address] [place] [address] WBC Auto (Urine sed) [#/Area] >75 Abnormal 0-5 [facility] Comment on above: Performed By: #### 4 [id number] #### [facility] [address] [place] [address] Yeast.budding Computer assisted Ql (U) 1+ CD:[id number] Abnormal [facility] Comment on above: Performed By: #### 4 [id number] #### [facility] [address] [place] [address] Type of Urine collection method Clean Catch Normal [facility] Comment on above: Performed By: #### 4 [id number] #### [facility] [address] [place] [address] URINALYSISOrdered By: SYSTEM SYSTEM on 02-19-2024 Bacteria [...] that meet specific criteria set forth by [facility]. Epithelial cells.squamous Auto (Urine sed) [...] Desc Clean Catch (02/19/24 4:54 PM) Normal FT UA Auto SS eGFRon 02-19-2024 eGFR 24 mL/min/1.73 m2 Low >=59 [facility] Comment on above: Order Comment: Order added by Discern Expert. Performed By: #### 1 [id number] #### [facility] [address] [place] [address] Prescriptions/Work Noteson 0 09-07-2023 Prescriptions/Work Notes [id number]# 1.00TIFF Normal [facility] IntraOperative Documentson 1 10-26-2022 IntraOperative Documents [id number]# 1.00TIFF Normal [facility] IntraOperative Documents [id number]# 1.00TIFF Normal [facility] Comment on above: Other Comment: error Calculus Analysison 08-15-20 Color (Stone) [place] Invalid Interpretation Code [facility] Comment on above: Performed By: #### 1 [id number] ####[facility] [address] [place] [address] Composition Comment Invalid Interpretation Code [facility] Comment on above: Result Comment: Perc entage (Represents the % composition) Performed By: #### 1 [id number] ####[facility] [address] [place] [address] Disclaimer: Comment Invalid Interpretation Code [facility] Comment on above: Result Comment: This test was developed and its performance characteristicsdetermined by [employer]. It has not been cleared or approvedby the Food and Drug Administration.Performed at: [address] [id number] PhD Ivan Ureña Performed By: #### 1 [id number] ####[facility] [address] [place] [address] Laboratory comment Hu (Report) Comment Invalid Interpretation Code [facility] Comment on above: Result Comment: Phys ician questions regarding Calculi Analysis [facility] at: [phone]. Performed By: #### 1 [id number] ####[address] [address] Please Note: Comment Invalid Interpretation Code [facility] Comment on above: Result Comment: Calc bernard report will follow via computer, mail or courierdelivery. Performed By: #### 1 [id number] ####[address] [address] Size (Stone) [Entitic vol] 3x4 Invalid Interpretation Code [facility] Comment on above: Result Comment: Mult iple pieces received. Dimensions of the largest piecereported. Performed By: #### 1 [id number] ####[address] [address] Specimen source subject Nom Comment Invalid Interpretation Code [facility] Comment on above: Result Comment: Not provided Performed By: #### 1 [id number] ####[facility] [address] [place] [address] Stone Photo Comment Invalid Interpretation Code [facility] Comment on above: Result Comment: Phot yarely will follow under a separate cover Performed By: #### 1 [id number] ####[facility] [address] [place] [address] Urate (Stone) [Mass fraction] 100 % Invalid Interpretation Code [facility] Comment on above: Performed By: #### 1 [id number] ####[facility] [address] [place] [address] Weight (Stone) 90 mg Invalid Interpretation Code [facility] Comment on above: Performed By: #### 1 [id number] ####[facility] [address] [place] [address] Prescriptions/Work Noteson 1 10-13-2022 Prescriptions/Work Notes [id number]# 1.00TIFF [facility] Consent for Procedure/Surger yon 08-11-2023 Consent for Procedure/Surgery [id number]# 1.00TIFF [facility] Progress Note-Physicianon Progress Note-Physician [facility] Comment on above: Result Comment: Elec tronically Signed By: Ravinder Bojorquez Jr, DO\.br\Date and Time Signed: 08/08/23 10:09 EST Progress Note-Physicianon Progress Note-Physician [facility] Comment on above: Result Comment: Elec tronically Signed By: Ravinder Bojorquez Jr, DO\.br\Date and Time Signed: 08/07/23 08:35 EST Consent for Anesthesiaon Consent for Anesthesia [id number]#1 .00TIFF [facility] Discharge Instructionson Discharge Instructions [id number]#1 .00TIFF [facility] IntraOperative Documentson 10-07-2022 IntraOperative Documents [id number]#1 .00TIFF Normal [facility] Main OR Intraoperative Recor don 08-06-2023 Main OR Intraoperative Record Normal [facility] Preoperative Documentson Preoperative Documents [id number]#1 .00TIFF Normal [facility] CHEMISTRYOrdered By: Lab ROP User on 08-05-2023 POC Username FATIMAH HA Invalid Interpretation Code [facility] POC Subsection Sodium [Moles/Vol] 396410540871 mmol/L Invalid Interpretation Code [facility] POC Subsection Sodium [Moles/Vol] 808522983 mmol/L Invalid Interpretation Code [facility] POC Subsection Capillary Glucose POCOrdered By: Lab ROPUser on 08-05-2023 Glucose [Mass/Vol] 155 mg/dL High 55-99 [facility] P OC Subsection Comment on above: Result Comment: Sheryl minda Meter No Coverage Given Result Comment: Sheryl minda MeterNo Coverage Given Performed By: #### 2 [id number] ####[facility] [address] [place] [address] Consent for Treatmenton Consent for Treatment [id number]#1 .00TIFF Normal [facility] Discharge Instructionson Discharge Instructions [facility] Comment on above: Result Comment: Elec tronically Signed By: Jerome MARCUM, Fatimah N\.br\Date and Time Signed: 08/05/23 15:42 EST H&P Updateon 08-05-2023 H&P Update [id number]#1 .00TIFF Normal [facility] Inpatient Patient Summaryon 08-05-2023 Inpatient Patient Summary Normal [facility] Main OR PACU I Recordon Main OR PACU I Record Normal [facility] Main OR Preoperative Recordo n 08-05-2023 Main OR Preoperative Record Normal [facility] Monitor Recordon 08-05-2023 Monitor Record [id number]# 1.00TIFF Normal [facility] Monitor Record [id number]# 1.00TIFF Normal [facility] Operative Reporton Operative Report Normal [facility] Comment on above: Result Comment: Elec tronically Signed By: GEORGIE CHISHOLM, Orestes Swift.br\Date and Time Signed: 08/05/23 15:18 EST Outpatient Surgery Discharge Instructionon 08-05-2023 Outpatient Surgery Discharge Instruction Normal [facility] Patient Education - Texton 1 10-06-2022 Patient Education - Text Normal [facility] URINALYSISOrdered By: Candis Soto on 08-05-2023 [...] PM) Normal Negative [facility] UA Auto SS Uncertain.plasma/Lithi um.RBC (Bld) [Mass ratio] 21-30 /HPF Invalid Interpretation Code 0-3/HPF [facility] UA Auto SS Nitrite Ql (U) Negative (08/05/23 12:21 PM) Normal Negative [facility] UA Auto SS pH (U) 6.0 (08/05/23 12:21 PM) Normal 5.0 - 9.0 [facility] UA Auto SS Protein (U) [Mass/Vol] 2+ *ABN* (08/05/23 12:21 PM) Invalid Interpretation Code Negative [facility] UA Auto SS Specific gravity (U) [Rel density] 1.015 (08/05/23 12:21 PM) Normal 1.005 - 1.030 [facility] UA Auto SS UA Spec Desc Clean Catch (08/05/23 12:21 PM) Normal [facility] UA Auto SS Urobilinogen Qn (U) 0.1209364 {Isis'U}/dL Normal 0.0 - 1.0 EU/dL [facility] UA Auto SS WBC Auto Ql (U) 3+ *ABN* (08/05/23 12:21 PM) Invalid Interpretation Code Negative [facility] UA Auto SS WBC LM.HPF (Urine sed) [#/Area] /[HPF] Invalid Interpretation Code 0-5/HPF [facility] UA Auto SS Urinalysison 08-05-2023 Type of Urine collection method Clean Catch Normal [facility] Comment on above: Performed By: #### 1 [id number] ####[facility] [address] [place] [address] Bacteria LM Ql (Urine sed) 1+ /HPF Abnormal Trace [facility] Comment on above: Performed By: #### 1 [id number] ####[facility] [address] [place] [address] Bilirubin Ql (U) Negative Normal Negative [facility] Comment on above: Performed By: #### 1 [id number] ####[facility] [address] [place] [address] Clarity (U) CLOUDY Abnormal Clear [facility] Comment on above: Performed By: #### 1 [id number] ####[facility] [address] [place] [address] Color (U) YELLOW Normal Yellow [facility] Comment on above: Performed By: #### 1 [id number] ####[facility] [address] [place] [address] Epithelial cells.squamous LM.HPF (Urine sed) [#/Area] 3-4 Normal 0-2 [facility] Comment on above: Performed By: #### 1 [id number] ####[facility] [address] [place] [address] Glucose Test strip (U) [Mass/Vol] Negative Normal Negative [facility] Comment on above: Performed By: #### 1 [id number] ####[facility] [address] [place] [address] Hemoglobin Ql (U) 2+ Abnormal Negative [facility] Comment on above: Performed By: #### 1 [id number] ####[facility] [address] [place] [address] Ketones (U) [Mass/Vol] Negative Normal Negative [facility] Comment on above: Performed By: #### 1 [id number] ####[facility] [address] [place] [address] Uncertain.plasma/Lithi um.RBC (Bld) [Mass ratio] 21-30 Abnormal 0-3 [facility] Comment on above: Performed By: #### 1 [id number] ####[address] [address] Nitrite Ql (U) Negative Normal Negative [facility] Comment on above: Performed By: #### 1 [id number] ####[facility] [address] [place] [address] pH (U) 6.0 [pH] Normal 5.0-9.0 [facility] Comment on above: Performed By: #### 1 [id number] ####[facility] [address] [place] [address] Protein (U) [Mass/Vol] 2+ Abnormal Negative [facility] Comment on above: Performed By: #### 1 [id number] ####[address] [address] Specific gravity (U) [Rel density] 1.015 Normal 1.005-1.030 [facility] Comment on above: Performed By: #### 1 [id number] ####[address] [address] Urobilinogen Qn (U) 0.2 {Isis'U}/dL Normal 0.0-1.0 [facility] Comment on above: Performed By: #### 1 [id number] ####[facility] [address] [place] [address] WBC Auto Ql (U) 3+ Abnormal Negative [facility] Comment on above: Performed By: #### 1 [id number] ####[facility] [address] [place] [address] WBC LM.HPF (Urine sed) [#/Area] /[HPF] Abnormal 0-5 [facility] Comment on above: Performed By: #### 1 [id number] ####[facility] [address] [place] [address] XR Abdomen 1 Viewon 08-05-20 23 XR Abdomen 1 View Normal [facility] XR Chest 2 Viewson 3 XR Chest 2 Views Normal [facility] Alanine Aminotransferaseon 1 10-05-2022 ALT [Catalytic activity/Vol] 15 U/L Normal [facility] [facility] Comment on above: Performed By: #### A LT, AST, LIPID #### [facility] [address] Alanine aminotransferase [En zymatic activity/volume] in Serum or PlasmaOrdered By: Tal Florian on 08-04-2023 ALT [Catalytic activity/Vol] 15 U/L [facility] Aspartate Amino Transferaseo n 08-04-2023 AST [Catalytic activity/Vol] 13 U/L Normal [address] [place] [address] Comment on above: Performed By: #### A LT, AST, LIPID #### [facility] [address] Aspartate aminotransferase [ Enzymatic activity/volume] in Serum or PlasmaOrdered By: Tal Florian on 08-04-2023 AST [Catalytic activity/Vol] 13 U/L [facility] Cholesterol [Mass/volume] in Serum or PlasmaOrdered By: Tal Florian on 08-04-2023 Cholesterol [Mass/Vol] 209 mg/dL 140-200 [facility] Comment on above: Chol less than 200 m g/dl low riskChol 201-239 mg/dl borderline riskChol 240 mg/dl and greater high risk Cholesterol in LDL Calc [Mas s/Vol]Ordered By: Tal Florian on 08-04-2023 Cholesterol in LDL [Mass/Vol] 116 mg/dL 0-100 [facility] Comment on above: LDL ATP III CLASSIFI CATIONLDL less than 100 mg/dL OptimalLDL 100-129 mg/dL Near or above optimalLDL 130-159 mg/dL Borderline highLDL 160-189 mg/dL HighLDL greater than 189 mg/dL Very high Cholesterol in VLDL Calc [Ma ss/Vol]Ordered By: Tal Florian on 08-04-2023 Cholesterol in VLDL [Mass/Vol] 35 mg/dL [facility] Lipid Panelon 08-04-2023 Cholesterol [Mass/Vol] 209 mg/dL High 140-200 [facility] Comment on above: Result Comment: Chol less than 200 mg/dl low risk Chol 201-239 mg/dl borderline risk Chol 240 mg/dl and greater high risk Performed By: #### A LT, AST, LIPID #### [facility] [address] Cholesterol in HDL [Mass/Vol] 58 mg/dL Normal 23-92 [facility] Comment on above: Result Comment: HDL CHOL ATP-III CLASSIFICATION Cardiovascular Risk HDL > or equal to 60 mg/dL LOW HDL < 40 mg/dL HIGH Performed By: #### A LT, AST, LIPID #### [facility] [address] Cholesterol.total/Ch olesterol in HDL [Mass ratio] 3.6 {ratio} Normal <5.0 [facility] Comment on above: Result Comment: PERF ORMED BY: [place] [address] PATHOLOGIST UNDERGROUND MINER KEVIN SWARTZ M.D. Performed By: #### A LT, AST, LIPID #### [facility] [address] LDL Cholesterol,Calculat ed 116 mg/dL High 0-100 [facility] Comment on above: Result Comment: LDL ATP III CLASSIFICATION LDL less than 100 mg/dL Optimal LDL 100-129 mg/dL Near or above optimal LDL 130-159 mg/dL Borderline high LDL 160-189 mg/dL High LDL greater than 189 mg/dL Very high Performed By: #### A LT, AST, LIPID #### [facility] [address] [place] [address] [place] Triglyceride w/Reflex 175 mg/dL High 0-149 [facility] Comment on above: Result Comment: TRIG ATP III CLASSIFICATION TRIG less than 150 mg/dL Normal TRIG 150-199 mg/dL Borderline high TRIG 200-500 mg/dL High TRIG greater than 500 mg/dL Very high Standard traceable to the Center for Disease Conrtrol and Prevention (CDC) test method. Performed By: #### A LT, AST, LIPID #### [facility] [address] VLDL CHOLESTEROL 35 mg/dL Normal [facility] Comment on above: Performed By: #### A LT, AST, LIPID #### [facility] [address] Serum or plasma high density lipoprotein (HDL) cholesterol measurementOrdered By: Tal Florian on 08-04-2023 Cholesterol in HDL [Mass/Vol] 58 mg/dL [facility] Comment on above: HDL CHOL ATP-III CLA SSIFICATION Cardiovascular RiskHDL > or equal to 60 mg/dL LOWHDL < 40 mg/dL HIGH Serum or plasma total choles terol/high density lipoprotein (HDL) cholesterol mass ratOrdered By: Tal Florian on 08-04-2023 Cholesterol.total/Ch olesterol in HDL [Mass ratio] 3.6 {ratio} <5.0 [facility] Triglyceride [Mass/volume] i n Serum or PlasmaOrdered By: Tal Florian on 08-04-2023 Triglyceride [Mass/Vol] 175 mg/dL 0-149 [facility] Comment on above: TRIG ATP III CLASSIF ICATIONTRIG less than 150 mg/dL NormalTRIG 150-199 mg/dL Borderline highTRIG 200-500 mg/dL High TRIG greater than 500 mg/dL Very highStandard traceable to the Center for Disease Conrtrol and Prevention (CDC) test method. Consent for Treatmenton 07-01 Consent for Treatment [id number]#1 .00TIFF Normal [facility] XR Abdomen 1 Viewon 07-23-20 23 XR Abdomen 1 View Normal [facility] IntraOperative Documentson 1 09-15-2022 IntraOperative Documents [id number]# 1.00TIFF Normal [facility] Operative Reporton Operative Report [id number]#1 .00TIFF Normal [facility] Formson 07-11-2023 Forms [id number]#1 .00TIFF Normal [facility] ECG 12-Leadon 07-05-2023 ECG 12-Lead [id number]#1 .00TIFF Normal [facility] Auto Diffon 07-02-2023 Basophils/100 WBC (Bld) 1.0 % Normal 0.0-2.0 [facility] Comment on above: Order Comment: Order Added by Discern Expert. Performed By: #### 2 753431, 4876145, 26422324, 28842069, 4079547, 3832446, 5422584 ####[facility] [address] [place] [address] Basophils/Leukocytes Auto (Bld) [Pure # fraction] 0.1 E9/L Normal 0.0-0.2 [facility] Comment on above: Order Comment: Order Added by Discern Expert. Performed By: #### 2 194815, 3487049, 21005959, 66873373, 8072090, 1902038, 2284357 ####[facility] [address] [place] [address] Eosinophils/100 WBC (Bld) 2.6 % Normal 0.0-8.0 [facility] Comment on above: Order Comment: Order Added by Discern Expert. Performed By: #### 2 282984, 5871056, 10688263, 05053773, 1199188, 8136135, 6922398 ####[facility] [address] [place] [address] Eosinophils/Leukocyt es Auto (Bld) [Pure # fraction] 0.2 E9/L Normal 0.0-0.5 [facility] Comment on above: Order Comment: Order Added by Discern Expert. Performed By: #### 2 035206, 9735848, 32771118, 02511946, 5990145, 9906252, 6646081 ####[address] [place] [address] Lymphocytes/100 WBC (Bld) 21.4 % Normal 14.0-50.0 [facility] Comment on above: Order Comment: Order Added by Discern Expert. Performed By: #### 2 131527, 1906996, 11421043, 56277346, 1657047, 8299781, 4302989 ####[address] [address] Lymphocytes/Leukocyt es Auto (Bld) [Pure # fraction] 1.9 E9/L Normal 1.0-4.0 [facility] Comment on above: Order Comment: Order Added by Discern Expert. Performed By: #### 2 888825, 6341480, 89924847, 79691028, 9083737, 0684813, 1354163 ####[address] [address] Monocytes/100 WBC (Bld) 7.7 % Normal 4.0-14.0 [facility] Comment on above: Order Comment: Order Added by Discern Expert. Performed By: #### 2 132472, 6417376, 05611283, 08020177, 3171551, 1495653, 1763722 ####[address] [place] [address] Monocytes/Leukocytes Auto (Bld) [Pure # fraction] 0.7 E9/L Normal 0.2-1.0 [facility] Comment on above: Order Comment: Order Added by Christen Expert. Performed By: #### 2 434362, 8663546, 51061943, 68387110, 9344714, 5919318, 3592647 ####[address] [place] [address] Neutrophils/100 WBC (Bld) 67.3 % Normal 36.0-75.0 [facility] Comment on above: Order Comment: Order Added by Discern Expert. Performed By: #### 2 734338, 0231032, 55607671, 79794367, 6515894, 1380894, 1195372 ####[address] [place] [address] Neutrophils/Leukocyt es Auto (Bld) [Pure # fraction] 6.0 E9/L Normal 2.0-7.5 [facility] Comment on above: Order Comment: Order Added by Discern Expert. Performed By: #### 2 463974, 5586705, 86362843, 34146047, 1992539, 3556900, 9565832 ####[address] [place] [address] BUNon 07-02-2023 Urea nitrogen [Mass/Vol] 20 mg/dL Normal 5-21 [facility] Comment on above: Performed By: #### 2 191313, 0365521, 19384258, 06624409, 3980073, 5807704, 1293146 ####[address] [address] CBC w/ Auto Diffon Erythrocyte distribution width (RBC) [Ratio] 14.2 % Normal 10.9-14.2 [facility] Comment on above: Performed By: #### 2 132200, 3885663, 26020233, 88272855, 7407053, 4923722, 0556150 ####[address] [place] [address] Hematocrit (Bld) [Volume fraction] 43.0 % Normal 34.0-46.0 [facility] Comment on above: Performed By: #### 2 830267, 6526334, 20778730, 75754444, 2290153, 1429229, 4644947 ####[address] [address] Hemoglobin (Bld) [Mass/Vol] 14.5 g/dL Normal 12.0-16.0 [facility] Comment on above: Performed By: #### 2 098245, 1860514, 14880971, 22977403, 6976682, 0019754, 2195223 ####[facility] [address] [place] [address] MCH (RBC) [Entitic mass] 30.1 pg Normal 27.0-34.0 [facility] Comment on above: Performed By: #### 2 281064, 9692187, 59379751, 80386112, 5317601, 3880759, 9123749 ####[facility] [address] [place] [address] MCHC (RBC) [Mass/Vol] 33.6 g/dL Normal 31.4-36.0 [facility] Comment on above: Performed By: #### 2 017375, 0230981, 18110038, 56687620, 5467430, 0655864, 5470764 ####[facility] [address] [place] [address] MCV (RBC) [Entitic vol] 89.8 fL Normal 80.0-100.0 [facility] Comment on above: Performed By: #### 2 240133, 7436615, 32790037, 99703127, 8918202, 6674647, 3007479 ####[facility] [address] [place] [address] Platelet mean volume (Bld) [Entitic vol] 7.9 fL Normal 6.4-10.8 [facility] Comment on above: Performed By: #### 2 787245, 9823527, 71755400, 88212625, 2361171, 7530712, 6417626 ####[facility] [address] [place] [address] Platelets (Bld) [#/Vol] 228.0 E9/L Normal 150.0-500.0 [facility] Comment on above: Performed By: #### 2 687652, 2597712, 15972055, 69057943, 4563692, 5260439, 3493096 ####[facility] [address] [place] [address] RBC (Bld) [#/Vol] 4.8 E12/L Normal 4.3-5.9 [facility] Comment on above: Performed By: #### 2 709542, 5234419, 48262780, 02485327, 7240520, 1087671, 1687572 ####[facility] [address] [place] [address] WBC corrected for nucl RBC Auto (Bld) [#/Vol] 8.9 E9/L Normal 4.0-11.0 [facility] Comment on above: Performed By: #### 2 790422, 4001095, 87953510, 30912434, 4233184, 4478016, 8637410 ####[address] [place] [address] Consent for Treatmenton 110 Consent for Treatment [id number]#1 .00TIFF Normal [facility] Creatinineon 07-02-2023 Creatinine [Mass/Vol] 1.3 mg/dL Normal 0.5-1.3 [facility] Comment on above: Performed By: #### 2 870685, 3825633, 04168351, 12792898, 5175697, 5608828, 3459944 ####[facility] [address] [place] [address] Lyteson 07-02-2023 Anion gap [Moles/Vol] 16 mmol/L Normal 6-16 [facility] Comment on above: Performed By: #### 2 591505, 7375633, 33715273, 85116836, 5213357, 1971745, 0099600 ####[facility] [address] [place] [address] Chloride [Moles/Vol] 109 mmol/L Normal 101-111 [facility] Comment on above: Performed By: #### 2 880200, 8449870, 67707777, 83462145, 5757520, 9018592, 3202106 ####[facility] [address] [place] [address] CO2 [Moles/Vol] 24 mmol/L Normal 21-31 [facility] Comment on above: Performed By: #### 2 062134, 0763492, 35074087, 73270977, 7113345, 4999449, 7069434 ####[facility] [address] [place] [address] Potassium [Moles/Vol] 4.1 mmol/L Normal 3.5-5.3 [facility] Comment on above: Performed By: #### 2 330160, 5595889, 05469302, 14520518, 0386745, 1849130, 3195149 ####[facility] [address] [place] [address] Sodium [Moles/Vol] 145 mmol/L Normal 135-145 [facility] Comment on above: Performed By: #### 2 394693, 7785108, 35851412, 09535688, 5371553, 5609857, 4047983 ####[facility] [address] [place] [address] PT & PTTon 07-02-2023 aPTT Coag (PPP) [Time] 27.5 second(s) Normal 25.1-36.5 [facility] Comment on above: Result Comment: Para meter 15 days - 4 weeks 1 - 5 months 6 - 11 months 1 - 5 years 6 - 10 years 11 - 17 years PTT Mean: 35.4 (27.6-45.6) Mean: 33.5 (24.8-40.7) Mean: 32.4 (25.1-40.7) Mean: 31.6 (24.0-39.2) Mean: 31.6 (26.9-38.7) Mean: 31.0 (24.6-38.4) Pediatric Reference ranges were obtained from a study by Chris Lacey, et al. prepared from 1437 samples obtained at 7 different centers using the same coagulation reagent and instrumentation as [facility]. Currently there are no coagulation studies available worldwide for children to 14 days, and no normal ranges. Heparin therapeutic range (represented by Anti-Factor Xa activity of 0.2 - 0.4 U/mL) corresponds to PTT of 56.6 - 109.0 sec. Performed By: #### 2 837327, 1258821, 96110072, 37898400, 0641046, 9751214, 0888200 ####[facility] [address] [place] [address] INR Coag (PPP) [Relative time] 1.0 {INR} Invalid Interpretation Code [facility] Comment on above: Result Comment: INR results are specifically intended to assess patients stabilized on long-term Anticoagulation therapy suggested INR?s ?Less Intensive Anticoagulation? 2.0 ? 3.0Conventional Range 3.0 ? 4.5 Performed By: #### 2 979168, 2613708, 60976734, 47125288, 5538672, 9403585, 6909138 ####[facility] [address] [place] [address] PT Coag (PPP) [Time] 11.4 second(s) Normal 9.4-12.5 [facility] Comment on above: Result Comment: 15 [...] the same coagulation reagent and instrumentation as [facility]. Currently there are no coagulation studies available worldwide for children to 14 days, and no normal ranges. Performed By: #### 2 159600, 5787360, 12040090, 06145541, 0872867, 6643638, 3216634 ####[facility] [address] [place] [address] XR Abdomen 1 Viewon 07-02-20 23 XR Abdomen 1 View Normal [facility] eGFRon 07-02-2023 GFR/1.73 sq M.predicted among non-blacks MDRD (S/P/Bld) [Vol rate/Area] 44 mL/min/1.73 m2 Low >=59 [facility] Comment on above: Order Comment: Order added by Discern Expert. Result Comment: Methods Examiner maxi kidney disease could be indicated at eGFR's of less than 60 mL/min/1.73m2. Kidney failure is indicated at less than 15 mL/min/1.73m2. Performed By: #### 2 064470, 8814768, 77049520, 64743378, 4533080, 5129611, 9040085 ####[facility] [address] [place] [address] Consent for Treatmenton Consent for Treatment [id number]#1 .00TIFF Normal [facility] Reminderson 06-11-2023 Reminders Normal [facility] XR Abdomen 1 Viewon 06-11-20 23 XR Abdomen 1 View Normal [facility] Consent for Treatmenton 05-30 Consent for Treatment [id number]#1 .00TIFF Normal [facility] C Blood Charcoalon 3 Blood Culture Charcoal Normal [facility] Comment on above: Performed By: #### 1 3189983 ####[facility] [address] [place] [address] C Blood Charcoalon 3 Blood Culture Charcoal Normal [facility] Comment on above: Performed By: #### 1 8016129 ####[facility] [address] [place] [address] Blood Culture Charcoal Normal [facility] Comment on above: Performed By: #### 1 0220226 ####[facility] [address] [place] [address] Consent for PICC lineon 10-0 Consent for PICC line [id number]# 1.00TIFF Normal [facility] Discharge Instructionson Discharge Instructions [id number]# 1.00CD:127 Normal [facility] C Blood Charcoalon Blood Culture Charcoal Normal [facility] Comment on above: Performed By: #### 1 2115332 ####[facility] [address] [place] [address] CHEMISTRYOrdered By: Andrea Richter on 06-02-2023 POC Username SHERRI AGARWALIA Invalid Interpretation Code [facility] POC Subsection Sodium [Moles/Vol] 738354134675 mmol/L Invalid Interpretation Code [facility] POC Subsection Sodium [Moles/Vol] 177917348 mmol/L Invalid Interpretation Code [facility] POC Subsection Capillary Glucose POCOrdered By: Andrea JIMENEZUser on 06-02-2023 Glucose [Mass/Vol] 152 mg/dL High 55-99 [facility] P OC Subsection Comment on above: Result Comment: Modesto vanegas RN/ Result Comment: Modesto vanegas RN/ Performed By: #### 2 [id number] ####[facility] [address] [place] [address] Coding Queryon 06-02-2023 Coding Query Normal [facility] Inpatient Clinical Summaryon 06-02-2023 Inpatient Clinical Summary Normal [facility] Inpatient Patient Summaryon 06-02-2023 Inpatient Patient Summary Normal [facility] Inpatient Patient Summary Normal [facility] Interdisciplinary Note - Galo e Manageron 06-02-2023 Interdisciplinary Note - Sql Programmer Normal [facility] Comment on above: Result Comment: Elec tronically Signed By: Rayne Carpenter\Date and Time Signed: 06/02/23 10:50 EDT BMPon 06-01-2023 Anion gap [Moles/Vol] 13 mmol/L Normal -16 [facility] Comment on above: Performed By: #### 2 097074, [id number] ####[facility] [address] [place] [address] Calcium [Mass/Vol] 8.9 mg/dL Normal 8.9-11.1 [facility] Comment on above: Performed By: #### 2 234973, 47225620 ####[facility] [address] [place] [address] Chloride [Moles/Vol] 115 mmol/L High 101-111 [facility] Comment on above: Performed By: #### 2 114669, 07898534 ####[facility] [address] [place] [address] CO2 [Moles/Vol] 20 mmol/L Low 21-31 [facility] Comment on above: Performed By: #### 2 251425, 97562018 ####[facility] [address] [place] [address] Creatinine [Mass/Vol] 1.2 mg/dL Normal 0.5-1.3 [facility] Comment on above: Performed By: #### 2 765441, 51367292 ####[facility] [address] [place] [address] Glucose [Mass/Vol] 104 mg/dL Normal 55-199 [facility] Comment on above: Result Comment: If t his glucose result represents a fasting glucose, interpretation should refer to the following reference range: 55-99 mg/dL Performed By: #### 2 174519, 06649084 ####[facility] [address] [place] [address] Potassium [Moles/Vol] 3.6 mmol/L Normal 3.5-5.3 [facility] Comment on above: Performed By: #### 2 261546, 58272298 ####[facility] [address] [facility] [place] [address] Sodium [Moles/Vol] 144 mmol/L Normal 135-145 [facility] Comment on above: Performed By: #### 2 703933, 52795461 ####[facility] [address] [place] [address] Urea nitrogen [Mass/Vol] 17 mg/dL Normal 5-21 [facility] Comment on above: Performed By: #### 2 315171, 77682282 ####[facility] [address] [place] [address] Urea nitrogen/Creatinine [Mass ratio] 14 No Units Normal 10-20 [facility] Comment on above: Performed By: #### 2 795154, 92502424 ####[facility] [address] [place] [address] CHEMISTRYOrdered By: Lab ROP User on 06-01-2023 Glucose [Mass/Vol] 213 mg/dL High 55 - 99 mg/dL [facility] C POC Subsection Comment on above: Result Comment: Modesto vanegas RN/ POC Username ASHOK ORTEZ Invalid Interpretation Code [facility] POC Subsection Sodium [Moles/Vol] 563984097938 mmol/L Invalid Interpretation Code [facility] POC Subsection Sodium [Moles/Vol] 749832257 mmol/L Invalid Interpretation Code [facility] POC Subsection Glucose [Mass/Vol] 183 mg/dL High 55 - 99 mg/dL [facility] C POC Subsection Comment on above: Result Comment: Modesto vanegas RN/ POC Username JANIA GREEN Invalid Interpretation Code [facility] POC Subsection Sodium [Moles/Vol] 208165568585 mmol/L Invalid Interpretation Code [facility] POC Subsection Sodium [Moles/Vol] 486172283 mmol/L Invalid Interpretation Code [facility] POC Subsection CHEMISTRYOrdered By: SYSTEM SYSTEM on 06-01-2023 Anion gap [Moles/Vol] 13 mmol/L Normal 6 - 16 mEq/L [facility] Remisol Calcium [Mass/Vol] 8.9 mg/dL Normal 8.9 - 11.1 mg/dL [facility] Chloride [Moles/Vol] 115 mmol/L High 101 - 111 mmol/ L [facility] CO2 [Moles/Vol] 20 mmol/L Low 21 - 31 mmol/L [facility] Creatinine [Mass/Vol] 1.2 mg/dL Normal 0.5 - 1.3 mg/dL [facility] GFR/1.73 sq M.predicted among non-blacks MDRD (S/P/Bld) [Vol rate/Area] 48 mL/min/1.73 m2 Low >=59mL/min/1.73 m2 [facility] Chem S Comment on above: Interpretive Data: C hronic kidney disease could be indicated at eGFR's of less than 60 mL/min/1.73m2. Kidney failure is indicated at less than 15 mL/min/1.73m2. Glucose [Mass/Vol] 104 mg/dL Normal 55 - 199 mg/dL [facility] Remisol Comment on above: Interpretive Data: I f this glucose result represents a fasting glucose, interpretation should refer to the following reference range: 55-99 mg/dL Potassium [Moles/Vol] 3.6 mmol/L Normal 3.5 - 5.3 mmol/L [facility] Remisol Sodium [Moles/Vol] 144 mmol/L Normal 135 - 145 mmol/L [facility] Urea nitrogen [Mass/Vol] 17 mg/dL Normal 5 - 21 mg/dL [facility] Urea nitrogen/Creatinine [Mass ratio] 14 mg/mg Normal 10 - 20 [facility] Capillary Glucose POCon 10-0 Glucose [Mass/Vol] 213 mg/dL High 55-99 [facility] Comment on above: Result Comment: Modesto ANDRES Performed By: #### 2 [id number] ####[facility] [address] [place] [address] Glucose [Mass/Vol] 183 mg/dL High 55-99 [facility] Comment on above: Result Comment: [place] ANDRES Performed By: #### 2 [id number] ####[facility] [address] [place] [address] Glucose [Mass/Vol] 270 mg/dL High 55-99 [facility] Comment on above: Result Comment: [place] ANDRES Performed By: #### 2 [id number] ####[facility] [address] [place] [address] Glucose [Mass/Vol] 102 mg/dL High 55-99 [facility] Comment on above: Result Comment: [place] ANDRES Performed By: #### 2 [id number] ####[facility] [address] [place] [address] Consultation Noteon 06-01-20 23 Consultation Note Normal [facility] Comment on above: Result Comment: Elec tronically Signed By: Garrett Palmer M.D\.br\Date and Time Signed: 06/01/23 14:24 EDT Interdisciplinary Note - Galo e Manageron 06-01-2023 Interdisciplinary Note - Sql Programmer Normal [facility] Comment on above: Result Comment: Elec tronically Signed By: Rayne Carpenter\.br\Date and Time Signed: 06/01/23 15:24 EDT Progress Note-Physicianon Progress Note-Physician Normal [facility] Comment on above: Result Comment: Elec tronically Signed By: Jhonny Barrett DO\.br\Date and Time Signed: 06/01/23 13:20 EDT Progress Note-Physician Normal [facility] Comment on above: Result Comment: Elec tronically Signed By: MD Quintero Ahmad F\.br\Date and Time Signed: 06/01/23 11:21 EDT Progress Note-Physician Normal [facility] Comment on above: Result Comment: Elec tronically Signed By: MD Quintero Ahmad F\.br\Date and Time Signed: 06/01/23 11:17 EDT eGFRon 06-01-2023 GFR/1.73 sq M.predicted among non-blacks MDRD (S/P/Bld) [Vol rate/Area] 48 mL/min/1.73 m2 Low >=59 [facility] Comment on above: Order Comment: Order added by Discern Expert. Result Comment: Methods Examiner maxi kidney disease could be indicated at eGFR's of less than 60 mL/min/1.73m2. Kidney failure is indicated at less than 15 mL/min/1.73m2. Performed By: #### 2 [id number], [id number] ####[facility] [address] [place] [address] C Blood Charcoalon Blood Culture Charcoal Normal [facility] Comment on above: Performed By: #### 1 [id number] ####[facility] [address] [place] [address] Capillary Glucose POCon Glucose [Mass/Vol] 161 mg/dL High 55-99 [facility] Comment on above: Result Comment: Modesto vanegas RN/ Performed By: #### 2 [id number] ####[facility] [address] [place] [address] Glucose [Mass/Vol] 142 mg/dL High 55-99 [facility] Comment on above: Result Comment: Modesto vanegas RN/ Performed By: #### 2 [id number] ####[facility] [address] [place] [address] Glucose [Mass/Vol] 201 mg/dL High 55- [facility] Comment on above: Result Comment: Modesto vanegas RN/ Performed By: #### 2 [id number] ####[facility] [address] [place] [address] Glucose [Mass/Vol] 139 mg/dL High 55- [facility] Comment on above: Result Comment: Modesto vanegas RN/ Performed By: #### 2 [id number] ####[facility] [address] [place] [address] Interdisciplinary Note - Galo e Manageron 05-31-2023 Interdisciplinary Note - Sql Programmer [facility] Comment on above: Result Comment: Elec tronically Signed By: Rayne Carpenter\Date and Time Signed: 05/31/23 10:58 EDT Interdisciplinary Note - Sql Programmer [facility] Comment on above: Result Comment: Elec tronically Signed By: Rayne Carpenter\Date and Time Signed: 05/31/23 10:40 EDT IntraOperative Documentson 1 IntraOperative Documents [id number]# 1.00CD:127 [facility] Progress Note-Physicianon Progress Note-Physician [facility] Comment on above: Result Comment: Elec tronically Signed By: Jhonny Barrett DO\Date and Time Signed: 05/31/23 11:13 EDT BMPon 05-30-2023 Anion gap [Moles/Vol] 5 mmol/L Low 6-16 [facility] Comment on above: Performed By: #### 2 242292, [id number] ####[facility] [address] [place] [address] Calcium [Mass/Vol] 8.1 mg/dL Low 8.9-11.1 [facility] Comment on above: Performed By: #### 2 569218, [id number] ####[facility] [address] [place] [address] Chloride [Moles/Vol] 116 mmol/L High 101-111 [facility] Comment on above: Performed By: #### 2 945980, [id number] ####[facility] [address] [facility] [address] CO2 [Moles/Vol] 24 mmol/L Normal 21-31 [facility] Comment on above: Performed By: #### 2 576191, [id number] ####[facility] [address] [place] [address] Creatinine [Mass/Vol] 1.6 mg/dL High 0.5-1.3 [facility] Comment on above: Performed By: #### 2 305484, [id number] ####[facility] [address] [place] [address] Glucose [Mass/Vol] 105 mg/dL Normal 55-199 [facility] Comment on above: Result Comment: If t his glucose result represents a fasting glucose, interpretation should refer to the following reference range: 55-99 mg/dL Performed By: #### 2 771402, [id number] ####[facility] [address] [place] [address] Potassium [Moles/Vol] 3.8 mmol/L Normal 3.5-5.3 [facility] Comment on above: Performed By: #### 2 531461, [id number] ####[facility] [address] [place] [address] Sodium [Moles/Vol] 141 mmol/L Normal 135-145 [facility] Comment on above: Performed By: #### 2 605987, [id number] ####[facility] [address] [place] [address] Urea nitrogen [Mass/Vol] 28 mg/dL High 5-21 [facility] Comment on above: Performed By: #### 2 390996, 68873861 ####[facility] [address] [place] [address] Urea nitrogen/Creatinine [Mass ratio] 18 No Units Normal - [facility] Comment on above: Performed By: #### 2 698054, [id number] ####[facility] [address] [place] [address] C Urineon 05-30-2023 Bacteria identified Cx Nom (U) Normal [facility] Comment on above: Performed By: #### 1 0000245, [id number] ####[facility] [address] [place] [address] CHEMISTRYOrdered By: SYSTEM SYSTEM on 05-30-2023 Anion gap [Moles/Vol] 5 mmol/L Low 6 - 16 mEq/L [facility] Remisol Calcium [Mass/Vol] 8.1 mg/dL Low 8.9 - 11.1 mg/dL [facility] Remisol Chloride [Moles/Vol] 116 mmol/L High 101 - 111 mmol/ L [facility] Remisol CO2 [Moles/Vol] 24 mmol/L Normal 21 - 31 mmol/L [facility] Remisol Creatinine [Mass/Vol] 1.6 mg/dL High 0.5 - 1.3 mg/dL [facility] Remisol GFR/1.73 sq M.predicted among non-blacks MDRD (S/P/Bld) [Vol rate/Area] 34 mL/min/1.73 m2 Low >=59mL/min/1.73 m2 [facility] Chem S Comment on above: Interpretive Data: C hronic kidney disease could be indicated at eGFR's of less than 60 mL/min/1.73m2. Kidney failure is indicated at less than 15 mL/min/1.73m2. Glucose [Mass/Vol] 105 mg/dL Normal 55 - 199 mg/dL [facility] Comment on above: Interpretive Data: I f this glucose result represents a fasting glucose, interpretation should refer to the following reference range: 55-99 mg/dL Potassium [Moles/Vol] 3.8 mmol/L Normal 3.5 - 5.3 mmol/L [facility] Remisol Sodium [Moles/Vol] 141 mmol/L Normal 135 - 145 mmol/L [facility] Remisol Urea nitrogen [Mass/Vol] 28 mg/dL High 5 - 21 mg/dL [facility] Urea nitrogen/Creatinine [Mass ratio] 18 mg/mg Normal 10 - 20 [facility] Capillary Glucose POCon Glucose [Mass/Vol] 209 mg/dL High 55-99 [facility] Comment on above: Result Comment: Modesto ANDRES Performed By: #### 2 [id number] ####[facility] [address] [place] [address] Glucose [Mass/Vol] 171 mg/dL High 55-99 [facility] Comment on above: Result Comment: Modesto ANDRES Performed By: #### 2 [id number] ####[facility] [address] [place] [address] Glucose [Mass/Vol] 191 mg/dL High 55-99 [facility] Comment on above: Result Comment: Modesto ANDRES Performed By: #### 2 [id number] ####[facility] [address] [place] [address] Glucose [Mass/Vol] 92 mg/dL Normal 55-99 [facility] Comment on above: Result Comment: Modesto ANDRES Performed By: #### 2 [id number] ####[facility] [address] [place] [address] Interdisciplinary Note - Galo e Manageron 05-30-2023 Interdisciplinary Note - Sql Programmer Normal [facility] Comment on above: Result Comment: Elec tronically Signed By: Crow MARCUM, Radhika\.br\Date and Time Signed: 05/30/23 13:39 EDT No Panel InformationOrdered By: CHAS MICROBIOLOGY on 05-30-2023 Blood Culture Charcoal No growth at 3 days. Final to follow at 7 days. [facility] Blood Culture Charcoal No growth at 3 days. Final to follow at 7 days. [facility] Progress Note-Physicianon Progress Note-Physician Normal [facility] Comment on above: Result Comment: Elec tronically Signed By: ISHAN CHISHOLM, Irisfo\.br\Date and Time Signed: 05/30/23 09:03 EDT eGFRon 05-30-2023 GFR/1.73 sq M.predicted among non-blacks MDRD (S/P/Bld) [Vol rate/Area] 34 mL/min/1.73 m2 Low >=59 [facility] Comment on above: Order Comment: Order added by Discern Expert. Result Comment: Methods Examiner maxi kidney disease could be indicated at eGFR's of less than 60 mL/min/1.73m2. Kidney failure is indicated at less than 15 mL/min/1.73m2. Performed By: #### 2 093905, [id number] ####[facility] [address] [place] [address] Auto Diffon 05-29-2023 Basophils/100 WBC (Bld) 0.2 % Normal 0.0-2.0 [facility] Comment on above: Order Comment: Order Added by Discern Expert. Performed By: #### 2 141404, 4326846, 5827826, 39830101 ####[facility] [address] [place] [address] Basophils/Leukocytes Auto (Bld) [Pure # fraction] 0.0 E9/L Normal 0.0-0.2 [facility] Comment on above: Order Comment: Order Added by Discern Expert. Performed By: #### 2 733245, 9817284, 3311028, 66674391 ####[facility] [address] [place] [address] Eosinophils/100 WBC (Bld) 1.1 % Normal 0.0-8.0 [facility] Comment on above: Order Comment: Order Added by Discern Expert. Performed By: #### 2 402141, 1262955, 4570180, 00621182 ####[address] [place] [address] Eosinophils/Leukocyt es Auto (Bld) [Pure # fraction] 0.1 E9/L Normal 0.0-0.5 [facility] Comment on above: Order Comment: Order Added by Discern Expert. Performed By: #### 2 037483, 2450089, 8959706, 89170907 ####[address] [address] Lymphocytes/100 WBC (Bld) 4.9 % Low 14.0-50.0 [facility] Comment on above: Order Comment: Order Added by Christen Expert. Performed By: #### 2 327661, 8159677, 5036835, 65673341 ####[address] [address] Lymphocytes/Leukocyt es Auto (Bld) [Pure # fraction] 0.4 E9/L Low 1.0-4.0 [facility] Comment on above: Order Comment: Order Added by Christen Expert. Performed By: #### 2 171182, 0778088, 7557088, 50319105 ####[address] [address] Monocytes/100 WBC (Bld) 6.4 % Normal 4.0-14.0 [facility] Comment on above: Order Comment: Order Added by Christen Expert. Performed By: #### 2 891199, 6771553, 1341576, 68017680 ####[address] [address] Monocytes/Leukocytes Auto (Bld) [Pure # fraction] 0.6 E9/L Normal 0.2-1.0 [facility] Comment on above: Order Comment: Order Added by Christen Expert. Performed By: #### 2 827731, 4801058, 2001704, 81170590 ####[address] [place] [address] Neutrophils/100 WBC (Bld) 87.4 % High 36.0-75.0 [facility] Comment on above: Order Comment: Order Added by Discern Expert. Performed By: #### 2 654770, 4267147, 1371207, 68312499 ####[facility] [address] [place] [address] Neutrophils/Leukocyt es Auto (Bld) [Pure # fraction] 7.6 E9/L High 2.0-7.5 [facility] Comment on above: Order Comment: Order Added by Discern Expert. Performed By: #### 2 458076, 8984664, 9801923, 42359402 ####[facility] [address] [place] [address] BMPon 05-29-2023 Anion gap [Moles/Vol] 10 mmol/L Normal 6-16 [facility] Comment on above: Performed By: #### 2 397509, 7075826, 9630273, 07493612 ####[facility] [address] [place] [address] Calcium [Mass/Vol] 8.2 mg/dL Low 8.9-11.1 [facility] Comment on above: Performed By: #### 2 080875, 9871287, 9033697, 53882921 ####[facility] [address] [place] [address] Chloride [Moles/Vol] 109 mmol/L Normal 101-111 [facility] Comment on above: Performed By: #### 2 480427, 8198521, 8526196, 57517422 ####[facility] [address] [place] [address] CO2 [Moles/Vol] 24 mmol/L Normal 21-31 [facility] Comment on above: Performed By: #### 2 290315, 6636336, 3252764, 63661312 ####[facility] [address] [place] [address] Creatinine [Mass/Vol] 1.9 mg/dL High 0.5-1.3 [facility] Comment on above: Performed By: #### 2 486690, 7692107, 7095697, 09026798 ####[facility] [address] [place] [address] Glucose [Mass/Vol] 160 mg/dL Normal 55-199 [facility] Comment on above: Result Comment: If t his glucose result represents a fasting glucose, interpretation should refer to the following reference range: 55-99 mg/dL Performed By: #### 2 553462, 6136540, 3086305, 97606033 ####[facility] [address] [place] [address] Potassium [Moles/Vol] 3.4 mmol/L Low 3.5-5.3 [facility] Comment on above: Performed By: #### 2 876812, 0110602, 8571218, 82401347 ####[facility] [address] [place] [address] Sodium [Moles/Vol] 140 mmol/L Normal 135-145 [facility] Comment on above: Performed By: #### 2 689709, 8984034, 0775151, 13249347 ####[facility] [address] [place] [address] Urea nitrogen [Mass/Vol] 30 mg/dL High 5-21 [facility] Comment on above: Performed By: #### 2 607829, 5578002, 0215091, 90623996 ####[facility] [address] [place] [address] Urea nitrogen/Creatinine [Mass ratio] 16 No Units Normal 10-20 [facility] Comment on above: Performed By: #### 2 479254, 3737510, 4257346, 42348016 ####[facility] [address] [place] [address] C Urineon 05-29-2023 Bacteria identified Cx Nom (U) Normal [facility] Comment on above: Performed By: #### 1 0507358, 5697236 ####[address] [place] [address] CBC w/ Auto Diffon 3 Erythrocyte distribution width (RBC) [Ratio] 13.2 % Normal 10.9-14.2 [facility] Comment on above: Performed By: #### 2 464476, 0256959, 2438483, 96311474 ####[address] [address] Hematocrit (Bld) [Volume fraction] 34.7 % Normal 34.0-46.0 [facility] Comment on above: Performed By: #### 2 344196, 0953322, 2480667, 95461606 ####[address] [address] Hemoglobin (Bld) [Mass/Vol] 11.9 g/dL Low 12.0-16.0 [facility] Comment on above: Performed By: #### 2 988949, 4786450, 2449018, 94760547 ####[address] [address] MCH (RBC) [Entitic mass] 31.1 pg Normal 27.0-34.0 [facility] Comment on above: Performed By: #### 2 353155, 0927874, 9955009, 31631748 ####[address] [address] MCHC (RBC) [Mass/Vol] 34.2 g/dL Normal 31.4-36.0 [facility] Comment on above: Performed By: #### 2 815390, 7211401, 0516879, 97156224 ####[address] [address] MCV (RBC) [Entitic vol] 91.0 fL Normal 80.0-100.0 [facility] Comment on above: Performed By: #### 2 397751, 8976791, 0937650, 67317573 ####[address] [address] Platelet mean volume (Bld) [Entitic vol] 7.7 fL Normal 6.4-10.8 [facility] Comment on above: Performed By: #### 2 140333, 0831967, 6197607, 11638007 ####[facility] [address] [place] [address] Platelets (Bld) [#/Vol] 152.0 E9/L Normal 150.0-500.0 [facility] Comment on above: Performed By: #### 2 989341, 6763605, 1697018, 27251807 ####[facility] [address] [place] [address] RBC (Bld) [#/Vol] 3.8 E12/L Low 4.3-5.9 [facility] Comment on above: Performed By: #### 2 531829, 4580228, 7037388, 10432690 ####[facility] [address] [place] [address] WBC corrected for nucl RBC Auto (Bld) [#/Vol] 8.7 E9/L Normal 4.0-11.0 [facility] Comment on above: Performed By: #### 2 501843, 0060477, 9308215, 94179366 ####[facility] [address] [place] [address] CHEMISTRYOrdered By: SYSTEM SYSTEM on 05-29-2023 Anion gap [Moles/Vol] 10 mmol/L Normal 6 - 16 mEq/L [facility] Calcium [Mass/Vol] 8.2 mg/dL Low 8.9 - 11.1 mg/dL [facility] Chloride [Moles/Vol] 109 mmol/L Normal 101 - 111 mmol/ L [facility] CO2 [Moles/Vol] 24 mmol/L Normal 21 - 31 mmol/L [facility] Creatinine [Mass/Vol] 1.9 mg/dL High 0.5 - 1.3 mg/dL [facility] Rem[facility] GFR/1.73 sq M.predicted among non-blacks MDRD (S/P/Bld) [Vol rate/Area] 28 mL/min/1.73 m2 Low >=59mL/min/1.73 m2 [facility] Chem S Comment on above: Interpretive Data: C hronic kidney disease could be indicated at eGFR's of less than 60 mL/min/1.73m2. Kidney failure is indicated at less than 15 mL/min/1.73m2. Glucose [Mass/Vol] 160 mg/dL Normal 55 - 199 mg/dL [facility] Remisol Comment on above: Interpretive Data: I f this glucose result represents a fasting glucose, interpretation should refer to the following reference range: 55-99 mg/dL Potassium [Moles/Vol] 3.4 mmol/L Low 3.5 - 5.3 mmol/L [facility] Remisol Sodium [Moles/Vol] 140 mmol/L Normal 135 - 145 mmol/L [facility] Remisol Urea nitrogen [Mass/Vol] 30 mg/dL High 5 - 21 mg/dL [facility] Remisol Urea nitrogen/Creatinine [Mass ratio] 16 mg/mg Normal 10 - 20 [facility] Remisol Capillary Glucose POCon 05-02 Glucose [Mass/Vol] 205 mg/dL High 55-99 [facility] Comment on above: Result Comment: Modesto vanegas RN/ Performed By: #### 2 [id number] ####[facility] [address] [place] [address] Glucose [Mass/Vol] 214 mg/dL High 55-99 [facility] Comment on above: Result Comment: Sheryl minda Meter Performed By: #### 2 23955230 ####[facility] [address] [place] [address] Glucose [Mass/Vol] 206 mg/dL High 55-99 [facility] Comment on above: Result Comment: Sheryl minda Meter Performed By: #### 2 15297504 ####[facility] [address] [place] [address] Glucose [Mass/Vol] 156 mg/dL High 55- [facility] Comment on above: Result Comment: Sheryl minda Meter Performed By: #### 2 [id number] ####[facility] [address] [place] [address] HEMATOLOGYOrdered By: SYSTEM SYSTEM on 05-29-2023 Basophils/100 [...] 34.7 % Normal 34.0 - 46.0 % [facility] HemeAutoSS Hemoglobin (Bld) [Mass/Vol] 11.9 g/dL Low 12.0 - 16.0 gm/dL [facility] HemeAutoSS MCH (RBC) [Entitic mass] 31.1 pg Normal 27.0 - 34.0 pg [facility] HemeAutoSS MCHC (RBC) [Mass/Vol] 34.2 g/dL Normal 31.4 - 36.0 gm/dL [facility] HemeAutoSS MCV (RBC) [Entitic vol] 91.0 fL Normal 80.0 - 100.0 fL [facility] HemeAutoSS Platelet mean volume (Bld) [Entitic vol] 7.7 fL Normal 6.4 - 10.8 fL [facility] HemeAutoSS Platelets (Bld) [#/Vol] 152.0 E9/L Normal 150.0 - 500.0 E9/L [facility] HemeAutoSS RBC (Bld) [#/Vol] 3.8 E12/L Low 4.3 - 5.9 E12/L [facility] HemeAutoSS WBC corrected for nucl RBC Auto (Bld) [#/Vol] 8.7 E9/L Normal 4.0 - 11.0 E9/L [facility] HemeAutoSS Interdisciplinary Note - PTo n 05-29-2023 Interdisciplinary Note - PT Normal [facility] Message from Medicareon 05-02 Message from Medicare [id number]# 1.00CD:127 Normal [facility] No Panel InformationOrdered By: ANGPROCESSSERVER MICROBIOLOGY on 05-29-2023 Blood Culture Charcoal No growth at 4 days. Final to follow at 7 days. [facility] Blood Culture Charcoal No growth at 4 days. Final to follow at 7 days. [facility] Progress Note-Physicianon Progress Note-Physician Normal [facility] Comment on above: Result Comment: Elec tronically Signed By: ISHAN CHISHOLM, Felice\.br\Date and Time Signed: 05/29/23 15:21 EDT eGFRon 05-29-2023 GFR/1.73 sq M.predicted among non-blacks MDRD (S/P/Bld) [Vol rate/Area] 28 mL/min/1.73 m2 Low >=59 [facility] Comment on above: Order Comment: Order added by Discern Expert. Result Comment: Methods Examiner maxi kidney disease could be indicated at eGFR's of less than 60 mL/min/1.73m2. Kidney failure is indicated at less than 15 mL/min/1.73m2. Performed By: #### 2 817783, 5001782, 0376545, 10919937 ####[facility] [address] [place] [address] Auto Diffon 05-28-2023 Basophils/100 WBC (Bld) 0.2 % Normal 0.0-2.0 [facility] Comment on above: Order Comment: Order Added by Discern Expert. Performed By: #### 2 998922, 92105193, 7369517, 6204583 ####[address] [address] Basophils/Leukocytes Auto (Bld) [Pure # fraction] 0.0 E9/L Normal 0.0-0.2 [facility] Comment on above: Order Comment: Order Added by Discern Expert. Performed By: #### 2 078509, 00792756, 5940037, 2910342 ####[address] [address] Eosinophils/100 WBC (Bld) 0.1 % Normal 0.0-8.0 [facility] Comment on above: Order Comment: Order Added by Discern Expert. Performed By: #### 2 173915, 85361521, 7478449, 5875125 ####[address] [address] Eosinophils/Leukocyt es Auto (Bld) [Pure # fraction] 0.0 E9/L Normal 0.0-0.5 [facility] Comment on above: Order Comment: Order Added by Discern Expert. Performed By: #### 2 541819, 67565022, 8172714, 2441744 ####[address] [address] Lymphocytes/100 WBC (Bld) 2.6 % Low 14.0-50.0 [facility] Comment on above: Order Comment: Order Added by Discern Expert. Performed By: #### 2 470813, 57600351, 4666270, 5913620 ####[address] [address] Lymphocytes/Leukocyt es Auto (Bld) [Pure # fraction] 0.3 E9/L Low 1.0-4.0 [facility] Comment on above: Order Comment: Order Added by Discern Expert. Performed By: #### 2 438094, 85041262, 3297152, 6883256 ####[facility] [address] [place] [address] Monocytes/100 WBC (Bld) 3.8 % Low 4.0-14.0 [facility] Comment on above: Order Comment: Order Added by Discern Expert. Performed By: #### 2 072358, 87092092, 2061734, 0740087 ####[address] [place] [address] Monocytes/Leukocytes Auto (Bld) [Pure # fraction] 0.5 E9/L Normal 0.2-1.0 [facility] Comment on above: Order Comment: Order Added by Discern Expert. Performed By: #### 2 241363, 99669274, 5029577, 7471632 ####[address] [place] [address] Neutrophils/100 WBC (Bld) 93.3 % High 36.0-75.0 [facility] Comment on above: Order Comment: Order Added by Discern Expert. Performed By: #### 2 854291, 57143321, 7764938, 4777937 ####[address] [place] [address] Neutrophils/Leukocyt es Auto (Bld) [Pure # fraction] 11.2 E9/L High 2.0-7.5 [facility] Comment on above: Order Comment: Order Added by Discern Expert. Performed By: #### 2 286925, 64308894, 2001374, 6984535 ####[facility] [address] [place] [address] BMPon 05-28-2023 Anion gap [Moles/Vol] 11 mmol/L Normal 6-16 [facility] Comment on above: Performed By: #### 2 685849, 88242766, 4778537, 9890440 ####[facility] [address] [place] [address] Calcium [Mass/Vol] 8.0 mg/dL Low 8.9-11.1 [facility] Comment on above: Performed By: #### 2 606691, 97495528, 1798445, 3659634 ####[facility] [address] [place] [address] Chloride [Moles/Vol] 109 mmol/L Normal 101-111 [facility] Comment on above: Performed By: #### 2 405811, 10807474, 7381580, 3039656 ####[facility] [address] [place] [address] CO2 [Moles/Vol] 22 mmol/L Normal 21-31 [facility] Comment on above: Performed By: #### 2 888483, 62242660, 4764358, 1207824 ####[facility] [address] [place] [address] Creatinine [Mass/Vol] 2.0 mg/dL High 0.5-1.3 [facility] Comment on above: Performed By: #### 2 661999, 71810135, 0104495, 5808227 ####[facility] [address] [place] [address] Glucose [Mass/Vol] 161 mg/dL Normal 55-199 [facility] Comment on above: Result Comment: If t his glucose result represents a fasting glucose, interpretation should refer to the following reference range: 55-99 mg/dL Performed By: #### 2 861405, 12815362, 7138330, 2738271 ####[facility] [address] [place] [address] Potassium [Moles/Vol] 3.5 mmol/L Normal 3.5-5.3 [facility] Comment on above: Performed By: #### 2 791273, 40271886, 3912197, 2757069 ####[facility] [address] [place] [address] Sodium [Moles/Vol] 138 mmol/L Normal 135-145 [facility] Comment on above: Performed By: #### 2 471620, 51243471, 2642541, 0051232 ####[facility] [address] [place] [address] Urea nitrogen [Mass/Vol] 25 mg/dL High 5-21 [facility] Comment on above: Performed By: #### 2 782760, 96601693, 0301570, 2211083 ####[facility] [address] [place] [address] Urea nitrogen/Creatinine [Mass ratio] 12 No Units Normal 10-20 [facility] Comment on above: Performed By: #### 2 292340, 66191286, 8119812, 7722652 ####[facility] [address] [place] [address] CBC w/ Auto Diffon 3 Erythrocyte distribution width (RBC) [Ratio] 13.5 % Normal 10.9-14.2 [facility] Comment on above: Performed By: #### 2 015188, 56189967, 8639824, 6931968 ####[facility] [address] [place] [address] Hematocrit (Bld) [Volume fraction] 36.0 % Normal 34.0-46.0 [facility] Comment on above: Performed By: #### 2 085572, 49296218, 3948361, 2544648 ####[facility] [address] [place] [address] Hemoglobin (Bld) [Mass/Vol] 12.3 g/dL Normal 12.0-16.0 [facility] Comment on above: Performed By: #### 2 844023, 26622925, 7965925, 5272828 ####[facility] [address] [place] [address] MCH (RBC) [Entitic mass] 31.0 pg Normal 27.0-34.0 [facility] Comment on above: Performed By: #### 2 906512, 90054151, 1963934, 5409788 ####[facility] [address] [place] [address] MCHC (RBC) [Mass/Vol] 34.2 g/dL Normal 31.4-36.0 [facility] Comment on above: Performed By: #### 2 954735, 26512584, 6830760, 2494770 ####[address] [place] [address] MCV (RBC) [Entitic vol] 90.7 fL Normal 80.0-100.0 [facility] Comment on above: Performed By: #### 2 193379, 61005937, 7228960, 8209776 ####[address] [place] [address] Platelet mean volume (Bld) [Entitic vol] 7.3 fL Normal 6.4-10.8 [facility] Comment on above: Performed By: #### 2 705491, 17810170, 4681888, 1033928 ####[address] [address] Platelets (Bld) [#/Vol] 154.0 E9/L Normal 150.0-500.0 [facility] Comment on above: Performed By: #### 2 723524, 50395425, 1456930, 1870080 ####[address] [address] RBC (Bld) [#/Vol] 4.0 E12/L Low 4.3-5.9 [facility] Comment on above: Performed By: #### 2 865488, 32038980, 4323584, 8391120 ####[address] [address] WBC corrected for nucl RBC Auto (Bld) [#/Vol] 12.0 E9/L High 4.0-11.0 [facility] Comment on above: Performed By: #### 2 626482, 85359366, 5680037, 8935522 ####[address] [place] [address] Capillary Glucose POCon 05-01 Glucose [Mass/Vol] 173 mg/dL High 55-99 [facility] Comment on above: Result Comment: Modesto vanegas RN/ Performed By: #### 2 92170784 ####[facility] [address] [place] [address] Glucose [Mass/Vol] 122 mg/dL High 55-[address] [place] [address] Comment on above: Result Comment: Modesto vanegas RN/ Performed By: #### 2 45847594 ####[facility] [address] [place] [address] Glucose [Mass/Vol] 140 mg/dL High 55-99 [facility] Comment on above: Result Comment: Modesto vanegas RN/ Performed By: #### 2 35302264 ####[facility] [address] [place] [address] Glucose [Mass/Vol] 145 mg/dL High -[address] [place] [address] Comment on above: Result Comment: Modesto vanegas RN/ Performed By: #### 2 30758212 ####[facility] [address] [place], [place] [address] Consent for Anesthesiaon Consent for Anesthesia [id number]# 1.00CD:127 Normal [facility] HEMATOLOGYOrdered By: SYSTEM SYSTEM on 05-28-2023 [...] gm/dL [facility] HemeAutoSS MCV (RBC) [Entitic vol] 90.7 fL Normal 80.0 - 100.0 fL [facility] HemeAutoSS Platelet mean volume (Bld) [Entitic vol] 7.3 fL Normal 6.4 - 10.8 fL [facility] HemeAutoSS Platelets (Bld) [#/Vol] 154.0 E9/L Normal 150.0 - 500.0 E9/L [facility] HemeAutoSS RBC (Bld) [#/Vol] 4.0 E12/L Low 4.3 - 5.9 E12/L [facility] HemeAutoSS WBC corrected for nucl RBC Auto (Bld) [#/Vol] 12.0 E9/L High 4.0 - 11.0 E9/L [facility] HemeAutoSS Insurance Correspondence Off iceon 05-28-2023 Insurance Correspondence Office [id number]#1 .00CD:127 Normal [facility] Interdisciplinary Note - Galo e Manageron 05-28-2023 Interdisciplinary Note - Sql Programmer Normal [facility] Comment on above: Result Comment: Elec tronically Signed By: Rayne Carpenter\.br\Date and Time Signed: 05/28/23 12:00 EDT IntraOperative Documentson 0 05-28-2023 IntraOperative Documents [id number]# 1.00CD:127 Normal [facility] Laboratory - Microbiology an d Antimicrobial susceptibilityOrdered By: Nata Prieto on 05-28-2023 Bacteria identified Cx Nom (U) 25,000 cfu/ml Anastacia albicans Presumptive isolated. [facility] Main OR Intraoperative Recor don 05-28-2023 Main OR Intraoperative Record Normal [facility] Progress Note-Physicianon Progress Note-Physician Normal [facility] Comment on above: Result Comment: Elec tronically Signed By: ISHAN CHISHOLM, Felice\.br\Date and Time Signed: 05/28/23 09:20 EDT UA With Cult Reflexon 2022 UA Spec Desc Catheter Normal [facility] Comment on above: Order Comment: Urina ry Catheter Insertion triggered Urinalysis With Culture Reflex order by discern. Performed By: #### 1 5686004, 7614104 ####[facility] [address] [place] [address] Bacteria LM Ql (Urine sed) 2+ /HPF Abnormal Trace [facility] Comment on above: Order Comment: Urina ry Catheter Insertion triggered Urinalysis With Culture Reflex order by discern. Performed By: #### 1 9205632, 5851641 ####[facility] [address] [place] [address] Bilirubin Ql (U) Negative Normal Negative [facility] Comment on above: Order Comment: Urina ry Catheter Insertion triggered Urinalysis With Culture Reflex order by discern. Performed By: #### 1 8154678, 4417787 ####[facility] [address] [place] [address] Clarity (U) SL CLOUDY Abnormal Clear [facility] Comment on above: Order Comment: Urina ry Catheter Insertion triggered Urinalysis With Culture Reflex order by discern. Performed By: #### 1 0823279, 5015930 ####[facility] [address] [place] [address] Color (U) YELLOW Normal Yellow [facility] Comment on above: Order Comment: Urina ry Catheter Insertion triggered Urinalysis With Culture Reflex order by discern. Performed By: #### 1 0481017, 3839941 ####[facility] [address] [place] [address] Crystals LM Ql (Urine sed) Present Normal [facility] Comment on above: Order Comment: Urina ry Catheter Insertion triggered Urinalysis With Culture Reflex order by discern. Performed By: #### 1 7391402, 5471410 ####[place] [address] Epithelial cells.squamous LM.HPF (Urine sed) [#/Area] 0-2 Normal 0-2 [facility] Comment on above: Order Comment: Urina ry Catheter Insertion triggered Urinalysis With Culture Reflex order by discern. Performed By: #### 1 1022545, 7305992 ####[facility] [address] [place], [place] [address] Glucose Test strip (U) [Mass/Vol] Negative Normal Negative [facility] Comment on above: Order Comment: Urina ry Catheter Insertion triggered Urinalysis With Culture Reflex order by discern. Performed By: #### 1 0056329, 2558897 ####[address] [address] Hemoglobin Ql (U) 3+ Abnormal Negative [facility] Comment on above: Order Comment: Urina ry Catheter Insertion triggered Urinalysis With Culture Reflex order by discern. Performed By: #### 1 7090406, 9134790 ####[facility] [address] [place] [address] Ketones (U) [Mass/Vol] Negative Normal Negative [facility] Comment on above: Order Comment: Urina ry Catheter Insertion triggered Urinalysis With Culture Reflex order by discern. Performed By: #### 1 5867244, 3609384 ####[facility] [address] [place] [address] Uncertain.plasma/Lithi um.RBC (Bld) [Mass ratio] 0-3 Normal 0-3 [facility] Comment on above: Order Comment: Urina ry Catheter Insertion triggered Urinalysis With Culture Reflex order by discern. Performed By: #### 1 3104001, 5922549 ####[address] [address] Nitrite Ql (U) Negative Normal Negative [facility] Comment on above: Order Comment: Urina ry Catheter Insertion triggered Urinalysis With Culture Reflex order by discern. Performed By: #### 1 6219069, 8788711 ####[address] [address] pH (U) 5.5 [pH] Invalid Interpretation Code 5.0-9.0 [facility] Comment on above: Order Comment: Urina ry Catheter Insertion triggered Urinalysis With Culture Reflex order by discern. Performed By: #### 1 8233233, 2708924 ####[address] [address] Protein (U) [Mass/Vol] 1+ Abnormal Negative [facility] Comment on above: Order Comment: Urina ry Catheter Insertion triggered Urinalysis With Culture Reflex order by discern. Performed By: #### 1 0057104, 6019295 ####[address] [address] Specific gravity (U) [Rel density] 1.015 Invalid Interpretation Code 1.005-1.030 [facility] Comment on above: Order Comment: Urina ry Catheter Insertion triggered Urinalysis With Culture Reflex order by discern. Performed By: #### 1 1262672, 2733035 ####[address] [address] Urobilinogen Qn (U) 0.2 {Isis'U}/dL Normal 0.0-1.0 [facility] Comment on above: Order Comment: Urina ry Catheter Insertion triggered Urinalysis With Culture Reflex order by discern. Performed By: #### 1 3739906, 2466885 ####[address] [place] [address] WBC Auto Ql (U) 2+ Abnormal Negative [facility] Comment on above: Order Comment: Urina ry Catheter Insertion triggered Urinalysis With Culture Reflex order by discern. Performed By: #### 1 0119092, 5261504 ####[facility] [address] [place] [address] WBC LM.HPF (Urine sed) [#/Area] /[HPF] Abnormal 0-5 [facility] Comment on above: Order Comment: Urina ry Catheter Insertion triggered Urinalysis With Culture Reflex order by discern. Performed By: #### 1 3712912, 7913462 ####[address] [address] Yeast LM Ql (Urine sed) 3+ Normal [facility] Comment on above: Order Comment: Urina ry Catheter Insertion triggered Urinalysis With Culture Reflex order by discern. Performed By: #### 1 2106464, 9942923 ####[facility] [address] [place], [place] [address] URINALYSISOrdered By: Diony Benitez on 05-28-2023 Bacteria [...] PM) Normal Negative [facility] UA Auto SS Uncertain.plasma/Lithi um.RBC (Bld) [Mass ratio] 0-3 /HPF Normal [...] [facility] UA Auto SS Urobilinogen Qn (U) 0.0276131 {Isis'U}/dL Normal 0.0 - 1.0 EU/dL [facility] [...] [Vol rate/Area] 26 mL/min/1.73 m2 Low >=59 [facility] Comment on above: Order Comment: Order added by Discern Expert. Result Comment: Methods Examiner maxi kidney disease could be indicated at eGFR's of less than 60 mL/min/1.73m2. Kidney failure is indicated at less than 15 mL/min/1.73m2. Performed By: #### 2 948919, 85996746, 0740276, 6989057 ####[facility] [place] [address] Auto Diffon 05-27-2023 Basophils/100 WBC (Bld) 0.3 % Normal 0.0-2.0 [facility] Comment on above: Order Comment: Order Added by Discern Expert. Performed By: #### 2 595298, 2976082, 96769557, 7975261 ####[address] [address] Basophils/Leukocytes Auto (Bld) [Pure # fraction] 0.1 E9/L Normal 0.0-0.2 [facility] Comment on above: Order Comment: Order Added by Discern Expert. Performed By: #### 2 965591, 6759484, 97456350, 3805131 ####[address] [address] Eosinophils/100 WBC (Bld) 0.1 % Normal 0.0-8.0 [facility] Comment on above: Order Comment: Order Added by Discern Expert. Performed By: #### 2 258431, 8248209, 49700812, 1358783 ####[address] [address] Eosinophils/Leukocyt es Auto (Bld) [Pure # fraction] 0.0 E9/L Normal 0.0-0.5 [facility] Comment on above: Order Comment: Order Added by Discern Expert. Performed By: #### 2 055329, 1846079, 82476734, 1732769 ####[address] [address] Lymphocytes/100 WBC (Bld) 4.0 % Low 14.0-50.0 [facility] Comment on above: Order Comment: Order Added by Discern Expert. Performed By: #### 2 488438, 3993235, 23236223, 9541395 ####[address] [address] Lymphocytes/Leukocyt es Auto (Bld) [Pure # fraction] 0.7 E9/L Low 1.0-4.0 [facility] Comment on above: Order Comment: Order Added by Discern Expert. Performed By: #### 2 545719, 4145941, 76113747, 2992054 ####[facility] [address] [place] [address] Monocytes/100 WBC (Bld) 4.8 % Normal 4.0-14.0 [facility] Comment on above: Order Comment: Order Added by Discern Expert. Performed By: #### 2 541482, 4742341, 47739448, 5273367 ####[address] [place] [address] Monocytes/Leukocytes Auto (Bld) [Pure # fraction] 0.8 E9/L Normal 0.2-1.0 [facility] Comment on above: Order Comment: Order Added by Discern Expert. Performed By: #### 2 149705, 1188094, 07994211, 3219041 ####[address] [address] Neutrophils/100 WBC (Bld) 90.8 % High 36.0-75.0 [facility] Comment on above: Order Comment: Order Added by Discern Expert. Performed By: #### 2 138256, 9251384, 97572555, 4879130 ####[address] [place] [address] Neutrophils/Leukocyt es Auto (Bld) [Pure # fraction] 15.7 E9/L High 2.0-7.5 [facility] Comment on above: Order Comment: Order Added by Discern Expert. Performed By: #### 2 080851, 6812738, 77869414, 0201228 ####[facility] [address] [place] [address] BMPon 05-27-2023 Anion gap [Moles/Vol] 10 mmol/L Normal 6-16 [facility] Comment on above: Performed By: #### 2 234674, 1253876, 55495127, 1653415 ####[address] [place] [address] Calcium [Mass/Vol] 8.0 mg/dL Low 8.9-11.1 [facility] Comment on above: Performed By: #### 2 394897, 7338141, 38501250, 3478846 ####[facility] [address] [place] [address] Chloride [Moles/Vol] 112 mmol/L High 101-111 [facility] Comment on above: Performed By: #### 2 588244, 8166436, 02725112, 8959941 ####[facility] [address] [place] [address] CO2 [Moles/Vol] 22 mmol/L Normal 21-31 [facility] Comment on above: Performed By: #### 2 328454, 6668642, 65856088, 8736893 ####[facility] [address] [place] [address] Creatinine [Mass/Vol] 1.9 mg/dL High 0.5-1.3 [facility] Comment on above: Performed By: #### 2 844709, 8473981, 46268520, 5837035 ####[facility] [address] [place] [address] Glucose [Mass/Vol] 342 mg/dL High 55-199 [facility] Comment on above: Result Comment: If t his glucose result represents a fasting glucose, interpretation should refer to the following reference range: 55-99 mg/dL Performed By: #### 2 337529, 1766012, 96895321, 7610179 ####[facility] [address] [place] [address] Potassium [Moles/Vol] 4.3 mmol/L Normal 3.5-5.3 [facility] Comment on above: Performed By: #### 2 485221, 4989467, 28891949, 1076868 ####[facility] [address] [place] [address] Sodium [Moles/Vol] 140 mmol/L Normal 135-145 [facility] Comment on above: Performed By: #### 2 137562, 0792488, 74108323, 2011785 ####[facility] [address] [place] [address] Urea nitrogen [Mass/Vol] 22 mg/dL High 5-21 [facility] Comment on above: Performed By: #### 2 235609, 1540158, 42697129, 1232098 ####[facility] [address] [place] [address] Urea nitrogen/Creatinine [Mass ratio] 12 No Units Normal 10-20 [facility] Comment on above: Performed By: #### 2 366882, 5944985, 81485432, 0869341 ####[facility] [address] [place] [address] CBC w/ Auto Diffon 3 Erythrocyte distribution width (RBC) [Ratio] 13.6 % Normal 10.9-14.2 [facility] Comment on above: Performed By: #### 2 355851, 9705152, 25335170, 2372255 ####[facility] [address] [place] [address] Hematocrit (Bld) [Volume fraction] 38.9 % Normal 34.0-46.0 [facility] Comment on above: Performed By: #### 2 969525, 8094653, 92826235, 4761742 ####[facility] [address] [place] [address] Hemoglobin (Bld) [Mass/Vol] 13.0 g/dL Normal 12.0-16.0 [facility] Comment on above: Performed By: #### 2 875009, 9591275, 07281999, 0722915 ####[facility] [address] [place] [address] MCH (RBC) [Entitic mass] 30.5 pg Normal 27.0-34.0 [facility] Comment on above: Performed By: #### 2 255087, 4623872, 65253805, 0068052 ####[facility] [address] [place] [address] MCHC (RBC) [Mass/Vol] 33.4 g/dL Normal 31.4-36.0 [facility] Comment on above: Performed By: #### 2 448980, 6956137, 15376692, 6699505 ####[address] [place] [address] MCV (RBC) [Entitic vol] 91.5 fL Normal 80.0-100.0 [facility] Comment on above: Performed By: #### 2 775275, 7486878, 30731211, 3961533 ####[address] [address] Platelet mean volume (Bld) [Entitic vol] 7.5 fL Normal 6.4-10.8 [facility] Comment on above: Performed By: #### 2 768235, 3284436, 23095929, 9879099 ####[address] [address] Platelets (Bld) [#/Vol] 181.0 E9/L Normal 150.0-500.0 [facility] Comment on above: Performed By: #### 2 274028, 6563629, 78521619, 8703753 ####[address] [address] RBC (Bld) [#/Vol] 4.2 E12/L Low 4.3-5.9 [facility] Comment on above: Performed By: #### 2 144182, 2587289, 93763233, 4368094 ####[address] [address] WBC corrected for nucl RBC Auto (Bld) [#/Vol] 17.2 E9/L High 4.0-11.0 [facility] Comment on above: Result Comment: Slid e reviewed by Performed By: #### 2 249345, 0351354, 42367924, 4493538 ####[address] [place] [address] CT Abdomen/Pelvis w/o Contra ston 05-27-2023 CT Abdomen/Pelvis w/o Contrast Normal [facility] Capillary Glucose POCon 05-01 Glucose [Mass/Vol] 321 mg/dL High 55- [facility] Comment on above: Result Comment: [place] ANDRES Performed By: #### 2 36669911 ####[facility] [address] [address] Glucose [Mass/Vol] 353 mg/dL High 55- [facility] Comment on above: Result Comment: Sheryl minda Meter Performed By: #### 2 85948821 ####[facility] [address] [address] Glucose [Mass/Vol] 378 mg/dL High 55- [facility] Comment on above: Result Comment: Modesto vanegas RN/ Performed By: #### 2 07114842 ####[facility] [address] [place] [address] Glucose [Mass/Vol] 323 mg/dL High - [facility] Comment on above: Performed By: #### 2 60133600 ####[facility] [address] [place] [address] Glucose [Mass/Vol] 320 mg/dL High 55- [facility] Comment on above: Performed By: #### 2 26886996 ####[facility] [address]Nor[facility] [place] [address] Consent for Procedure/Surger yon 05-27-2023 Consent for Procedure/Surgery [id number]#1 .00CD:127 Normal [facility] Consultation Noteon 05-27-20 Consultation Note Normal [facility] Comment on above: Result Comment: Elec tronically Signed By: Orestes JACQUES MD\Sharynbr\Date and Time Signed: 05/27/23 08:09 EDT ED Note-Physicianon 05-27-20 ED Note-Physician Normal [facility] Comment on above: Result Comment: Elec tronically Signed By: Blaire Myers DO\Date and Time Signed: 05/27/23 00:15 EDT HEMATOLOGYOrdered [...] 91.5 fL Normal 80.0 - 100.0 fL [facility] HemeAutoSS Platelet mean volume (Bld) [Entitic vol] 7.5 fL Normal 6.4 - 10.8 fL [facility] HemeAutoSS Platelets (Bld) [#/Vol] 181.0 E9/L Normal 150.0 - 500.0 E9/L [facility] HemeAutoSS RBC (Bld) [#/Vol] 4.2 E12/L Low 4.3 - 5.9 E12/L [facility] HemeAutoSS WBC corrected for nucl RBC Auto (Bld) [#/Vol] 17.2 E9/L High 4.0 - 11.0 E9/L [facility]eAutoSS Comment on above: Result Comment: Slid e reviewed by BR. Main OR PACU I Recordon 05-01 Main OR PACU I Record Normal [facility] Monitor Recordon 05-27-2023 Monitor Record [id number]# 1.00CD:127 Normal [facility] Monitor Record [id number]# 1.00CD:127 Normal [facility] Monitor Record [id number]# 1.00CD:127 Normal [facility] No Panel InformationOrdered By: Ramona Christie on 05-27-2023 Blood Culture Charcoal Anastacia albicans In 1 of 2 blood culture bottles drawn. Isolated from aerobic bottle Preliminary gram stain result of yeast Result called to Dr. Marx by [facility] and results read back for confirmation on 05/29/2023 12:23. [facility] No Panel InformationOrdered By: Nata Prieto on 05-27-2023 Blood Culture Charcoal Anastacia albicans isolated. In 1 of 1 blood culture bottles drawn. Isolated from pediatric bottle Preliminary gram stain result of yeast Result called to Dr. Marx by [facility] and results read back for confirmation on 05/29/2023 12:22:06 [facility] Operative Reporton Operative Report Normal [facility] Comment on above: Result Comment: Elec tronically Signed By: GEORGIE CHISHOLM, Orestes Swift.br\Date and Time Signed: 05/27/23 08:13 EDT eGFRon 05-27-2023 GFR/1.73 sq M.predicted among non-blacks MDRD (S/P/Bld) [Vol rate/Area] 28 mL/min/1.73 m2 Low >=59 [facility] Comment on above: Order Comment: Order added by Discern Expert. Result Comment: Methods Examiner maxi kidney disease could be indicated at eGFR's of less than 60 mL/min/1.73m2. Kidney failure is indicated at less than 15 mL/min/1.73m2. Performed By: #### 2 038303, 6734018, 84893092, 1839412 ####[facility] [address] [place] [address] Auto Diffon 05-26-2023 Basophils/100 WBC (Bld) 0.1 % Normal 0.0-2.0 [facility] Comment on above: Order Comment: Order Added by Christen Expert. Performed By: #### 2 207022, 70082503, 7845277, 7529760, 5136290, 5218671 ####[facility] [address] [place] [address] Basophils/Leukocytes Auto (Bld) [Pure # fraction] 0.0 E9/L Normal 0.0-0.2 [facility] Comment on above: Order Comment: Order Added by Christen Expert. Performed By: #### 2 586524, 10852376, 8068560, 7640887, 9520625, 5919770 ####[facility] [address] [place] [address] Eosinophils/100 WBC (Bld) 0.0 % Normal 0.0-8.0 [facility] Comment on above: Order Comment: Order Added by Christen Expert. Performed By: #### 2 324671, 37651045, 8004869, 7177235, 6068546, 5673214 ####[facility] [address] [place] [address] Eosinophils/Leukocyt es Auto (Bld) [Pure # fraction] 0.0 E9/L Normal 0.0-0.5 [facility] Comment on above: Order Comment: Order Added by Discern Expert. Performed By: #### 2 242891, 86130387, 5033685, 2414732, 6977596, 7720417 ####[facility] [address] [place] [address] Lymphocytes/100 WBC (Bld) 3.9 % Low 14.0-50.0 [facility] Comment on above: Order Comment: Order Added by Discern Expert. Performed By: #### 2 976303, 88036233, 1044322, 2459301, 3104921, 6688956 ####[address] [place] [address] Lymphocytes/Leukocyt es Auto (Bld) [Pure # fraction] 0.7 E9/L Low 1.0-4.0 [facility] Comment on above: Order Comment: Order Added by Christen Expert. Performed By: #### 2 391496, 14051966, 3573341, 9277547, 0524007, 0515092 ####[address] [address] Monocytes/100 WBC (Bld) 6.6 % Normal 4.0-14.0 [facility] Comment on above: Order Comment: Order Added by Christen Expert. Performed By: #### 2 438016, 77272009, 6992353, 0275790, 6039478, 4431232 ####[address] [address] Monocytes/Leukocytes Auto (Bld) [Pure # fraction] 1.2 E9/L High 0.2-1.0 [facility] Comment on above: Order Comment: Order Added by Christen Expert. Performed By: #### 2 352165, 55930932, 1259956, 8444474, 8163308, 8060427 ####[facility] [address] [place] [address] Neutrophils/100 WBC (Bld) 89.4 % High 36.0-75.0 [facility] Comment on above: Order Comment: Order Added by Christen Expert. Performed By: #### 2 505129, 24114557, 6562070, 8656917, 0594938, 1750992 ####[facility] [address] [place] [address] Neutrophils/Leukocyt es Auto (Bld) [Pure # fraction] 16.6 E9/L High 2.0-7.5 [facility] Comment on above: Order Comment: Order Added by Discern Expert. Performed By: #### 2 302825, 12841744, 7388008, 5736330, 6659874, 6391589 ####[facility] [address] [place] [address] BMPon 05-26-2023 Creatinine [Mass/Vol] 1.9 mg/dL High 0.5-1.3 [facility] Comment on above: Performed By: #### 2 092418, 10612440, 8646137, 7347126, 7079577, 9790492 ####[facility] [address] [place] [address] Urea nitrogen [Mass/Vol] 19 mg/dL Normal 5-21 [facility] Comment on above: Performed By: #### 2 050508, 44773937, 9145891, 7509204, 2194160, 8024927 ####[facility] [address] [place] [address] Urea nitrogen/Creatinine [Mass ratio] 10 No Units Normal 10-20 [facility] Comment on above: Performed By: #### 2 056157, 64648464, 9289712, 9552098, 7755491, 9254549 ####[facility] [address] [place] [address] Anion gap [Moles/Vol] 13 mmol/L Normal 6-16 [facility] Comment on above: Performed By: #### 2 817015, 06885704, 7531220, 3400170, 9452699, 7553289 ####[facility] [address] [place] [address] Calcium [Mass/Vol] 8.9 mg/dL Normal 8.9-11.1 [facility] Comment on above: Performed By: #### 2 403638, 62994420, 7833551, 8408454, 3957050, 1845872 ####[facility] [address] [place] [address] Chloride [Moles/Vol] 106 mmol/L Normal 101-111 [facility] Comment on above: Performed By: #### 2 695235, 43164458, 9406050, 8955635, 1015447, 4631683 ####[facility] [address] [place] [address] CO2 [Moles/Vol] 25 mmol/L Normal 21-31 [facility] Comment on above: Performed By: #### 2 952400, 44833905, 3654891, 3091753, 2108595, 4713952 ####[facility] [address] [place] [address] Glucose [Mass/Vol] 342 mg/dL High 55-199 [facility] Comment on above: Result Comment: If t his glucose result represents a fasting glucose, interpretation should refer to the following reference range: 55-99 mg/dL Performed By: #### 2 564027, 05053415, 2728236, 2396294, 0762096, 5006051 ####[facility] [address] [place] [address] Potassium [Moles/Vol] 3.9 mmol/L Normal 3.5-5.3 [facility] Comment on above: Performed By: #### 2 050067, 17018774, 9949430, 9245074, 8722241, 5843124 ####[facility] [address] [place] [address] Sodium [Moles/Vol] 140 mmol/L Normal 135-145 [facility] Comment on above: Performed By: #### 2 851524, 18686624, 8612988, 0751637, 1607988, 9634199 ####[facility] [address] [place] [address] CBC w/ Auto Diffon 3 Erythrocyte distribution width (RBC) [Ratio] 13.6 % Normal 10.9-14.2 [facility] Comment on above: Performed By: #### 2 967307, 95366658, 0012074, 7529553, 9155276, 9727469 ####[address] [place] [address] Hematocrit (Bld) [Volume fraction] 45.2 % Normal 34.0-46.0 [facility] Comment on above: Performed By: #### 2 770364, 34564136, 0549190, 7325909, 9096849, 4958499 ####[address] [address] Hemoglobin (Bld) [Mass/Vol] 15.2 g/dL Normal 12.0-16.0 [facility] Comment on above: Performed By: #### 2 887622, 23211449, 5386298, 1951939, 1377607, 2829720 ####[address] [address] MCH (RBC) [Entitic mass] 30.5 pg Normal 27.0-34.0 [facility] Comment on above: Performed By: #### 2 540663, 37862837, 9955940, 1742247, 7584472, 8973730 ####[address] [address] MCHC (RBC) [Mass/Vol] 33.7 g/dL Normal 31.4-36.0 [facility] Comment on above: Performed By: #### 2 475750, 41583975, 4917778, 4698651, 5373251, 5093346 ####[address] [address] MCV (RBC) [Entitic vol] 90.3 fL Normal 80.0-100.0 [facility] Comment on above: Performed By: #### 2 936256, 61950020, 3891377, 2282997, 5805748, 6711727 ####[facility] [address] [place] [address] Platelet mean volume (Bld) [Entitic vol] 7.1 fL Normal 6.4-10.8 [facility] Comment on above: Performed By: #### 2 518236, 94097696, 2929080, 2801436, 4519686, 6026803 ####[facility] [address] [place] [address] Platelets (Bld) [#/Vol] 256.0 E9/L Normal 150.0-500.0 [facility] Comment on above: Performed By: #### 2 653592, 27280962, 9278319, 0521876, 0979461, 4662538 ####[address] [place] [address] RBC (Bld) [#/Vol] 5.0 E12/L Normal 4.3-5.9 [facility] Comment on above: Performed By: #### 2 320781, 31120557, 5987587, 7628323, 4667584, 0040514 ####[facility] [address] [place] [address] WBC corrected for nucl RBC Auto (Bld) [#/Vol] 18.6 E9/L High 4.0-11.0 [facility] Comment on above: Result Comment: Slid e reviewed by COBY Performed By: #### 2 701499, 63581215, 8124499, 9528115, 8390802, 0063787 ####[facility] [address] [place] [address] CHEMISTRYOrdered By: SYSTEM SYSTEM on 05-26-2023 Troponin I.cardiac [Mass/Vol] 20.40 pg/mL Normal 10.10 - 27.10 pg/mL [facility]isol Comment on above: Interpretive Data: T he 95% CI (Confidence Interval) PPV (Positive Predictive Value) for myocardial infarction in females is 38 pg/mL, in males 51 pg/mL. The results should be used in conjunction with clinical conditions of myocardial infarction. (Access High Sensitivity Troponin I Instructions For Use, Jairo Harleigh, March 2018) Albumin [Mass/Vol] 3.3 g/dL Normal [...] 4.1 g/dL High 1.4 - 4.0 gm/dL [facility] Remisol Lipase [Catalytic activity/Vol] 33 U/L Normal 13 - 58 unit/L [facility] Remisol Protein [Mass/Vol] 7.4 g/dL Normal 6.0 - 7.8 gm/dL [facility] Remisol Consent for Treatmenton 05-01 Consent for Treatment [id number] .00CD:127 Normal [facility] DAPTOMYCIN:SUSC:PT:ISOLATE:O RDQN:MICOrdered By: Nata Prieto on 05-26-2023 DAPTOmycin LAUREN [Susc] 20,000 cfu/ml Staphylococcus haemolyticus 2,000 cfu/ml Mixed skin contaminants [facility] DAPTOmycin LAUREN [Susc]Ordered By: Nata Prieto on 05-26-2023 Staphylococcus haemolyticus Staphylococcus haemolyticus [facility] Hep Func Panelon 05-26-2023 Albumin [Mass/Vol] 3.3 g/dL Normal 3.3-5.0 [facility] Comment on above: Performed By: #### 2 490098, 78584279, 8607462, 2033539, 2725368, 7380628 ####[facility] [address] [place] [address] Albumin/Globulin (S) [Mass conc ratio] 0.8 Low 1.1-2.2 [facility] Comment on above: Performed By: #### 2 261360, 85502890, 0059758, 6363635, 3390184, 6291877 ####[facility] [address] [place] [address] ALP [Catalytic activity/Vol] 72 Int._Unit/L Normal 21-98 [facility] Comment on above: Performed By: #### 2 570137, 36077733, 4265259, 8210125, 5059556, 5124513 ####[address] [address] ALT No additional P-5'-P [Catalytic activity/Vol] 16 Int._Unit/L Normal 6-46 [facility] Comment on above: Performed By: #### 2 290058, 24291820, 7883561, 9536096, 9627394, 8598066 ####[facility] [address] [place] [address] AST [Catalytic activity/Vol] 16 Int._Unit/L Normal 5-43 [facility] Comment on above: Performed By: #### 2 160664, 69324047, 6727818, 3090848, 9140532, 8412220 ####[facility] [address] [place] [address] Bilirubin [Mass/Vol] 1.3 mg/dL High 0.0-1.1 [facility] Comment on above: Performed By: #### 2 140882, 01721890, 7363663, 3779840, 1044034, 1670394 ####[facility] [address] [place] [address] Bilirubin.direct [Mass/Vol] 0.2 mg/dL Normal 0.1-0.4 [facility] Comment on above: Performed By: #### 2 462978, 27019826, 2275924, 9424089, 8993633, 2800810 ####[facility] [address] [place] [address] Bilirubin.indirect [Mass or moles/Vol] 1.1 mg/dL High 0.1-0.9 [facility] Comment on above: Performed By: #### 2 824158, 55226167, 9561791, 3257865, 0667155, 8402474 ####[address] [place] [address] Globulin (S) [Mass/Vol] 4.1 g/dL High 1.4-4.0 [facility] Comment on above: Performed By: #### 2 638636, 56461592, 1589685, 9416585, 4058608, 9757520 ####[address] [address] Protein [Mass/Vol] 7.4 g/dL Normal 6.0-7.8 [facility] Comment on above: Performed By: #### 2 837314, 45286926, 7193583, 9091498, 7702001, 4315805 ####[address] [address] Lipase Levelon 05-26-2023 Lipase [Catalytic activity/Vol] 33 U/L Normal 13-58 [facility] Comment on above: Performed By: #### 2 979534, 73101977, 6164039, 4070408, 8793746, 9117395 ####[address] [place] [address] RAD - Preliminary Cat Scan R eporton 05-26-2023 RAD - Preliminary Cat Scan Report [id number]# 1.00CD:127 Normal [facility] Troponin 0 Hr.on 05-26-2023 Troponin I.cardiac [Mass/Vol] 20.40 pg/mL Normal 10.10-.10 [facility] Comment on above: Result Comment: The 95% CI (Confidence Interval) PPV (Positive Predictive Value) for myocardial infarction in females is 38 pg/mL, in males 51 pg/mL. The results should be used in conjunction with clinical conditions of myocardial infarction.(Access High Sensitivity Troponin I Instructions For Use, Jairo Elsy, March 2018) Performed By: #### 1 8730304 ####[facility] [address] [place] [address] UA With Cult Reflexon 2022 Bacteria LM Ql (Urine sed) 1+ /HPF Abnormal Trace [facility] Comment on above: Performed By: #### 1 2384341, 4884734 ####[address] [address] Bilirubin Ql (U) Negative Normal Negative [facility] Comment on above: Performed By: #### 1 2093562, 1106786 ####[address] [address] Clarity (U) CLOUDY Abnormal Clear [facility] Comment on above: Performed By: #### 1 3794998, 5910929 ####[address] [address] Color (U) YELLOW Normal Yellow [facility] Comment on above: Performed By: #### 1 6124960, 1675054 ####[address] [address] Epithelial cells.squamous LM.HPF (Urine sed) [#/Area] /[HPF] Normal 0-2 [facility] Comment on above: Performed By: #### 1 5796111, 6247286 ####[facility] [address] [place] [address] Glucose Test strip (U) [Mass/Vol] 3+ Abnormal Negative [facility] Comment on above: Performed By: #### 1 9360471, 5300462 ####[facility] [address] [place] [address] Hemoglobin Ql (U) 2+ Abnormal Negative [facility] Comment on above: Performed By: #### 1 0636668, 7785423 ####[facility] [address] [place] [address] Ketones (U) [Mass/Vol] 1+ Abnormal Negative [facility] Comment on above: Performed By: #### 1 9778592, 2658186 ####[facility] [address] [place] [address] Uncertain.plasma/Lithi um.RBC (Bld) [Mass ratio] 4-20 Normal 0-3 [facility] Comment on above: Performed By: #### 1 8936798, 0470653 ####[address] [address] Nitrite Ql (U) Positive Abnormal Negative [facility] Comment on above: Performed By: #### 1 8608019, 4176276 ####[address] [address] pH (U) 5.5 [pH] Invalid Interpretation Code 5.0-9.0 [facility] Comment on above: Performed By: #### 1 9017065, 4319528 ####[address] [address] Protein (U) [Mass/Vol] 1+ Abnormal Negative [facility] Comment on above: Performed By: #### 1 2812697, 2007544 ####[address] [address] Specific gravity (U) [Rel density] 1.020 Invalid Interpretation Code 1.005-1.030 [facility] Comment on above: Performed By: #### 1 4980182, 8786628 ####[address] [address] Type of Urine collection method Clean Catch Normal [facility] Comment on above: Performed By: #### 1 5370573, 3367651 ####[address] [address] Urobilinogen Qn (U) 1.0 {Isis'U}/dL Normal 0.0-1.0 [facility] Comment on above: Performed By: #### 1 1916484, 7379891 ####[facility] [address] [place] [address] WBC Auto Ql (U) 2+ Abnormal Negative [facility] Comment on above: Performed By: #### 1 6570838, 8453101 ####[facility] [address] [place] [address] WBC LM.HPF (Urine sed) [#/Area] /[HPF] Abnormal 0-5 [facility] Comment on above: Performed By: #### 1 8403349, 9172900 ####[facility] [address] [place] [address] URINALYSISOrdered By: Ike Lopez on 05-26-2023 Bacteria LM Ql (Urine sed) 1+ /HPF Invalid Interpretation Code Trace/HPF [facility] UA Auto SS Bilirubin Ql (U) Negative (05/26/23 11:08 PM) Normal Negative [facility] UA Auto SS [...] Interpretation Code Negative [facility] UA Auto SS Uncertain.plasma/Lithi um.RBC (Bld) [Mass ratio] 4-20 /HPF Normal 0-3/HPF [facility] UA Auto SS Nitrite Ql (U) Positive *ABN* (05/26/23 11:08 PM) Invalid Interpretation Code Negative [facility] UA Auto SS pH (U) 5.5 *NA* (05/26/23 11:08 PM) Invalid Interpretation Code 5.0 - 9.0 [facility] UA Auto SS Protein (U) [Mass/Vol] 1+ *ABN* (05/26/23 11:08 PM) Invalid Interpretation Code Negative [facility] UA Auto SS Specific gravity (U) [Rel density] 1.020 *NA* (05/26/23 11:08 PM) Invalid Interpretation Code 1.005 - 1.030 [facility] UA Auto SS UA Spec Desc Clean Catch (05/26/23 11:08 PM) Normal [facility] UA Auto SS Urobilinogen Qn (U) 1.9714095 {Isis'U}/dL Normal 0.0 - 1.0 EU/dL [facility] UA Auto SS WBC Auto Ql (U) 2+ *ABN* (05/26/23 11:08 PM) Invalid Interpretation Code Negative [facility] UA Auto SS WBC LM.HPF (Urine sed) [#/Area] /[HPF] Invalid Interpretation Code 0-5/HPF [facility] UA Auto SS eGFRon 05-26-2023 GFR/1.73 sq M.predicted among non-blacks MDRD (S/P/Bld) [Vol rate/Area] 28 mL/min/1.73 m2 Low >=59 [facility] Comment on above: Order Comment: Order added by Discern Expert. Result Comment: Methods Examiner maxi kidney disease could be indicated at eGFR's of less than 60 mL/min/1.73m2. Kidney failure is indicated at less than 15 mL/min/1.73m2. Performed By: #### 2 450964, 82505136, 5519673, 5346145, 7337434, 7502749 ####[facility] [address] [place] [address] Consent for Procedure/Surger yon 05-25-2023 Consent for Procedure/Surgery [id number] .00CD:127 Normal [facility] Consent for Treatmenton 05-01 Consent for Treatment [id number]#1 .00CD:127 Normal [facility] IntraOperative Documentson 0 05-25-2023 IntraOperative Documents [id number]# 1.00CD:127 Normal [facility] IntraOperative Documents [id number] .00CD:127 Normal [facility] Main OR Intraoperative Recor don 05-25-2023 Main OR Intraoperative Record Normal [facility] Main OR Preoperative Recordo n 05-25-2023 Main OR Preoperative Record Normal [facility] Operative Reporton Operative Report Normal [facility] Comment on above: Result Comment: Elec tronically Signed By: JAILENE CHISHOLM, Glynn Neff.br\Date and Time Signed: 05/25/23 09:22 EDT Outpatient Surgery Discharge Instructionon 05-25-2023 Outpatient Surgery Discharge Instruction [id number] .00CD:127 Normal [facility] Patient Educationon 05-25-20 23 Patient Education Normal [facility] Calculus Analysison 05-17-20 23 Color (Stone) [place] Invalid Interpretation Code [facility] Comment on above: Order Comment: Stone calculi from left ureter for analysis Performed By: #### 1 6506752 ####[facility] [address] [place] [address] Composition Comment Invalid Interpretation Code [facility] Comment on above: Order Comment: Stone calculi from left ureter for analysis Result Comment: Perc entage (Represents the % composition) Performed By: #### 1 0484275 ####[facility] [address] [place] [address]24057 Disclaimer: Comment Invalid Interpretation Code [facility] Comment on above: Order Comment: Stone calculi from left ureter for analysis Result Comment: This test was developed and its performance characteristicsdetermined by [employer]. It has not been cleared or approvedby the Food and Drug Administration.Performed at: [facility] [address] [id number] PhD Srini Bell Performed By: #### 1 4786075 ####[facility] [address] [place] [address] Laboratory comment Hu (Report) Comment Invalid Interpretation Code [facility] Comment on above: Order Comment: Stone calculi from left ureter for analysis Result Comment: Nicolas arora questions regarding Calculi Analysis contactLabCorp at: [phone]. Performed By: #### 1 7539929 ####[facility] [address] [place] [address] Please Note: Comment Invalid Interpretation Code [facility] Comment on above: Order Comment: Stone calculi from left ureter for analysis Result Comment: Calc bernard report will follow via computer, mail or courierdelivery. Performed By: #### 1 0227195 ####[facility] [address] [place] [address] Size (Stone) [Entitic vol] 3x2 Invalid Interpretation Code [facility] Comment on above: Order Comment: Stone calculi from left ureter for analysis Result Comment: Mult iple pieces received. Dimensions of the largest piecereported. Performed By: #### 1 3293976 ####[facility] [address] [place] [address] Specimen source subject Nom Comment Invalid Interpretation Code [facility] Comment on above: Order Comment: Stone calculi from left ureter for analysis Result Comment: Left Ureter Performed By: #### 1 3342547 ####[facility] [address] [place] [address] Stone Photo Comment Invalid Interpretation Code [facility] Comment on above: Order Comment: Stone calculi from left ureter for analysis Result Comment: Phot ograph will follow under a separate cover Performed By: #### 1 9651784 ####[facility] [address] [place] [address] Urate (Stone) [Mass fraction] 100 % Invalid Interpretation Code [facility] Comment on above: Order Comment: Stone calculi from left ureter for analysis Performed By: #### 1 1385760 ####[facility] [address] [place] [address] Weight (Stone) 40 mg Invalid Interpretation Code [facility] Comment on above: Order Comment: Stone calculi from left ureter for analysis Performed By: #### 1 7353350 ####[address] [place] [address] Main [place] Intraoperative Recor don 05-12-2023 Main OR Intraoperative Record Normal [facility] Auto Diffon 05-11-2023 Basophils/100 WBC (Bld) 0.2 % Normal 0.0-2.0 [facility] Comment on above: Order Comment: Order Added by Discern Expert. Performed By: #### 2 638796, 2553404 ####[address] [address] Basophils/Leukocytes Auto (Bld) [Pure # fraction] 0.0 E9/L Normal 0.0-0.2 [facility] Comment on above: Order Comment: Order Added by Discern Expert. Performed By: #### 2 970186, 7344537 ####[address] [address] Eosinophils/100 WBC (Bld) 0.1 % Normal 0.0-8.0 [facility] Comment on above: Order Comment: Order Added by Discern Expert. Performed By: #### 2 987292, 7093702 ####[address] [address] Eosinophils/Leukocyt es Auto (Bld) [Pure # fraction] 0.0 E9/L Normal 0.0-0.5 [facility] Comment on above: Order Comment: Order Added by Discern Expert. Performed By: #### 2 988807, 0952694 ####[address] [address] [address] Lymphocytes/100 WBC (Bld) 10.0 % Low 14.0-50.0 [facility] Comment on above: Order Comment: Order Added by Discern Expert. Performed By: #### 2 636267, 4359466 ####[address] [address] Lymphocytes/Leukocyt es Auto (Bld) [Pure # fraction] 1.0 E9/L Normal 1.0-4.0 [facility] Comment on above: Order Comment: Order Added by Discern Expert. Performed By: #### 2 390244, [id number] ####[facility] [address] [place] [address] Monocytes/100 WBC (Bld) 5.6 % Normal 4.0-14.0 [facility] Comment on above: Order Comment: Order Added by Discern Expert. Performed By: #### 2 221557, 3482294 ####[facility] [address] [place] [address] Monocytes/Leukocytes Auto (Bld) [Pure # fraction] 0.6 E9/L Normal 0.2-1.0 [facility] Comment on above: Order Comment: Order Added by Discern Expert. Performed By: #### 2 997503, 9725977 ####[address] [address] Neutrophils/100 WBC (Bld) 84.1 % High 36.0-75.0 [facility] Comment on above: Order Comment: Order Added by Discern Expert. Performed By: #### 2 073864, 4353439 ####[address] [address] Neutrophils/Leukocyt es Auto (Bld) [Pure # fraction] 8.8 E9/L High 2.0-7.5 [facility] Comment on above: Order Comment: Order Added by Discern Expert. Performed By: #### 2 178301, 0614591 ####[address] [address] C Urineon 05-11-2023 Bacteria identified Cx Nom (U) Normal [facility] Comment on above: Performed By: #### 2 055908, 93862392 ####[facility] [address] [place] [address] CBC w/ Auto Diffon 3 Erythrocyte distribution width (RBC) [Ratio] 13.7 % Normal 10.9-14.2 [facility] Comment on above: Performed By: #### 2 061346, 2434513 ####[facility] [address] [place] [address] Hematocrit (Bld) [Volume fraction] 37.9 % Normal 34.0-46.0 [facility] Comment on above: Performed By: #### 2 659037, 3334826 ####[address] [address] Hemoglobin (Bld) [Mass/Vol] 13.0 g/dL Normal 12.0-16.0 [facility] Comment on above: Performed By: #### 2 110037, 5966713 ####[address] [address] MCH (RBC) [Entitic mass] 31.8 pg Normal 27.0-34.0 [facility] Comment on above: Performed By: #### 2 956721, 4069918 ####[address] [address] MCHC (RBC) [Mass/Vol] 34.4 g/dL Normal 31.4-36.0 [facility] Comment on above: Performed By: #### 2 163751, 4419137 ####[address] [address] MCV (RBC) [Entitic vol] 92.5 fL Normal 80.0-100.0 [facility] Comment on above: Performed By: #### 2 071516, 5949246 ####[address] [address] Platelet mean volume (Bld) [Entitic vol] 8.2 fL Normal 6.4-10.8 [facility] Comment on above: Performed By: #### 2 617668, 9562502 ####[address] [address] Platelets (Bld) [#/Vol] 161.0 E9/L Normal 150.0-500.0 [facility] Comment on above: Performed By: #### 2 937759, 1229386 ####[address] [address] RBC (Bld) [#/Vol] 4.1 E12/L Low 4.3-5.9 [facility] Comment on above: Performed By: #### 2 994712, 1623186 ####[facility] [address] [place] [address] WBC corrected for nucl RBC Auto (Bld) [#/Vol] 10.5 E9/L Normal 4.0-11.0 [facility] Comment on above: Performed By: #### 2 940818, 6189593 ####[facility] [address] [place] [address] CHEMISTRYOrdered By: Lab ROP User on 05-11-2023 Glucose [Mass/Vol] 226 mg/dL High 55 - 99 mg/dL FT C POC Subsection Comment on above: Result Comment: Modesto vanegas RN/ POC Device SN [id number] Invalid Interpretation Code [facility] POC Subsection POC User ID [id number] Invalid Interpretation Code [facility] POC Subsection POC Username CORNELIA ZAMBRANO Invalid Interpretation Code [facility] POC Subsection Capillary Glucose POCon 04-30 Glucose [Mass/Vol] 226 mg/dL High 55-99 [facility] Comment on above: Result Comment: [place]esto ANDRES Performed By: #### 2 [id number] ####[address] [place] [address] Discharge Instructionson Discharge Instructions [id number]# 1.00CD:127 Normal [facility] Discharge Note-Nursingon Discharge Note-Nursing Normal [address] [facility], [address] [place] [address]- \.br\ New Follow Up Appointments after Discharge\.br\ Follow Up with Glynn DENT When: 05/17/2023 01:30 PM EDT\.br\ Where:\.br\ [facility]\.br\ [address]br\ [place] [address]-\.br\ Business (1)\.br\ Follow Up with ALBERTINA ARNDT When: 05/17/2023 09:30 AM EDT\.br\ Where:\.br\ [address] [facility]\.br\ [place] [address]-\.br\ [facility] (1)\.br\ Medications\.br\ What How Much When Why Instructions Next Dose\.br\ Changed cephalexin (Keflex 500 mg Cap) 1 Capsules By Mouth 3 times a day Duration: 5 Days Pickup at [id number] 05-11-23 3 pm\.br\ Unchanged atorvastatin (atorvastatin 40 [...] Tablets By Mouth Every day Pickup at [facility] 05-12-23 9 am\.br\ Pharmacy Information\.br\ [facility]: [address] [place], [place] [id number] [phone]\.br\ [id number]: [address], [place] [id number] [phone]\.br\ Test Results\.br\ CBC \.br\ BMP \.br\ WBC: [...] artery disease\.br\ Glucosuria\.br\ Hyperlipidemia\. br\ Kidney stone\.br\ nursing home current use of anticoagulant\.b r\ Obesity due to excess calories\.br\ Urge incontinence\.br \ Urinary tract infection\.br\ Historical - Any problem that you are no longer receiving treatment for.\.br\ Diabetes mellitus\.br\ Hypertension\.br \ Devices Implanted/Remove d This Visit\.br\ Notice: You have devices implanted this visit that may not be MRI compatible.\.br\ Implanted\.br\ CYSTOSCOPY W/ HOMIUM LASER\.br\ Ureter L\.br\ STENT URETERAL 6FR LENGTH 22-32CM [[id number]] 05/09/2023, Unknown - JOSE FRANCISCO: {01}[phone] [id number]{17}[id number]{10} [id number]\.br\ Common Emergency Awareness Tips\.br\ IS IT A [...] signed up for this yet, please contact [employer] at [phone] to get signed up today.\.br\ \.br\ Patient Name: SHAHANA GRACE\.br\ I have received this information and my questions have been answered.\.br\ Patient/Represen tative Name: ____\.br\ Patient/Represen tative Signature: ____\.br\ Relationship to Patient: ____\.br\ Witness Name/Signature: ____\.br\ Date: ____\.br\ [facility] HEMATOLOGYOrdered By: SYSTEM SYSTEM on 05-11-2023 [...] 1.0 E9/L [facility] Neutrophils/100 WBC (Bld) 84.1 % High 36.0 - 75.0 % [facility] Neutrophils/Leukocyt es Auto (Bld) [Pure # fraction] 8.8 E9/L High 2.0 - 7.5 E9/L [facility] HEMATOLOGYOrdered By: Virginia Dillard on 05-11-2023 Erythrocyte distribution width (RBC) [Ratio] 13.7 % Normal 10.9 - 14.2 % [facility] Hematocrit (Bld) [Volume fraction] 37.9 % Normal 34.0 - 46.0 % [facility] Hemoglobin (Bld) [Mass/Vol] 13.0 g/dL Normal 12.0 - 16.0 gm/dL [facility] MCH (RBC) [Entitic mass] 31.8 pg Normal 27.0 - 34.0 pg [facility] MCHC (RBC) [Mass/Vol] 34.4 g/dL Normal 31.4 - 36.0 gm/dL [facility] MCV (RBC) [Entitic vol] 92.5 fL Normal 80.0 - 100.0 fL [facility] Platelet mean volume (Bld) [Entitic vol] 8.2 fL Normal 6.4 - 10.8 fL [facility]eAutoSS Platelets (Bld) [#/Vol] 161.0 E9/L Normal 150.0 - 500.0 E9/L [facility] HemeAutoSS RBC (Bld) [#/Vol] 4.1 E12/L Low 4.3 - 5.9 E12/L [facility] HemeAutoSS WBC corrected for nucl RBC Auto (Bld) [#/Vol] 10.5 E9/L Normal 4.0 - 11.0 E9/L [facility] HemeAutoSS Inpatient Clinical Summaryon 05-11-2023 Inpatient Clinical Summary Normal [facility] Inpatient Patient Summaryon 05-11-2023 Inpatient Patient Summary Normal [facility] Message from Medicareon 04-30 Message from Medicare [id number]# 1.00CD:127 Normal [facility] Monitor Recordon 05-11-2023 Monitor Record [id number]# 1.00CD:127 Normal [facility] Monitor Record [id number]# 1.00CD:127 Normal [facility] Monitor Record [id number]# 1.00CD:127 Normal [facility] Auto Diffon 05-10-2023 Basophils/100 WBC (Bld) 0.1 % Normal 0.0-2.0 [facility] Comment on above: Order Comment: Order Added by Discern Expert. Performed By: #### 2 675728, 7566684, 6682285, 94380616 ####[facility] [address] [place] [address] Basophils/Leukocytes Auto (Bld) [Pure # fraction] 0.0 E9/L Normal 0.0-0.2 [facility] Comment on above: Order Comment: Order Added by Discern Expert. Performed By: #### 2 811575, 9903328, 5409105, 86217339 ####[address] [address] Eosinophils/100 WBC (Bld) 0.0 % Normal 0.0-8.0 [facility] Comment on above: Order Comment: Order Added by Christen Expert. Performed By: #### 2 499153, 8730047, 0965036, 39707925 ####[address] [address] Eosinophils/Leukocyt es Auto (Bld) [Pure # fraction] 0.0 E9/L Normal 0.0-0.5 [facility] Comment on above: Order Comment: Order Added by Christen Expert. Performed By: #### 2 662244, 7114556, 8108447, 39817088 ####[address] [address] Lymphocytes/100 WBC (Bld) 6.5 % Low 14.0-50.0 [facility] Comment on above: Order Comment: Order Added by Christen Expert. Performed By: #### 2 023408, 4125775, 6219770, 55767635 ####[address] [address] Lymphocytes/Leukocyt es Auto (Bld) [Pure # fraction] 1.1 E9/L Normal 1.0-4.0 [facility] Comment on above: Order Comment: Order Added by Christen Expert. Performed By: #### 2 593527, 3596948, 4570859, 49591161 ####[address] [address] Monocytes/100 WBC (Bld) 4.2 % Normal 4.0-14.0 [facility] Comment on above: Order Comment: Order Added by Christen Expert. Performed By: #### 2 126673, 1311920, 5644929, 05042749 ####[address] [address] Monocytes/Leukocytes Auto (Bld) [Pure # fraction] 0.7 E9/L Normal 0.2-1.0 [facility] Comment on above: Order Comment: Order Added by Discern Expert. Performed By: #### 2 263225, 0419822, 7419802, 54144371 ####[facility] [address] [place] [address] Neutrophils/100 WBC (Bld) 89.2 % High 36.0-75.0 [facility] Comment on above: Order Comment: Order Added by Discern Expert. Performed By: #### 2 277934, 7860308, 6160899, 51080776 ####[facility] [address] [place] [address] Neutrophils/Leukocyt es Auto (Bld) [Pure # fraction] 14.7 E9/L High 2.0-7.5 [facility] Comment on above: Order Comment: Order Added by Discern Expert. Performed By: #### 2 032804, 0243531, 4504854, 30471238 ####[facility] [address] [place] [address] BMPon 05-10-2023 Creatinine [Mass/Vol] 1.4 mg/dL High 0.5-1.3 [facility] Comment on above: Performed By: #### 2 465986, 9720463, 1798069, 43389310 ####[facility] [address] [place] [address] Urea nitrogen [Mass/Vol] 30 mg/dL High 5-21 [facility] Comment on above: Performed By: #### 2 813961, 7676089, 9669942, 85610547 ####[facility] [address] [place] [address] Urea nitrogen/Creatinine [Mass ratio] 21 No Units High 10-20 [facility] Comment on above: Performed By: #### 2 518431, 6689537, 1727900, 03898706 ####[facility] [address] [place] [address] Anion gap [Moles/Vol] 12 mmol/L Normal 6-16 [facility] Comment on above: Performed By: #### 2 607823, 1808206, 6492061, 53627523 ####[facility] [address] [place] [address] Calcium [Mass/Vol] 8.3 mg/dL Low 8.9-11.1 [facility] Comment on above: Performed By: #### 2 066731, 0639551, 3854775, 27856699 ####[facility] [address] [place] [address] Chloride [Moles/Vol] 111 mmol/L Normal 101-111 [facility] Comment on above: Performed By: #### 2 953926, 5937230, 3798812, 04773414 ####[facility] [address] [place] [address] CO2 [Moles/Vol] 22 mmol/L Normal 21-31 [facility] Comment on above: Performed By: #### 2 338445, 3831450, 3157049, 26962551 ####[facility] [address] [place] [address] Glucose [Mass/Vol] 256 mg/dL High 55-199 [facility] Comment on above: Result Comment: If t his glucose result represents a fasting glucose, interpretation should refer to the following reference range: 55-99 mg/dL Performed By: #### 2 296343, 0481407, 9072177, 25369293 ####[facility] [address] [place] [address] Potassium [Moles/Vol] 3.7 mmol/L Normal 3.5-5.3 [facility] Comment on above: Performed By: #### 2 113069, 1055170, 0282502, 68753519 ####[facility] [address] [place] [address] Sodium [Moles/Vol] 141 mmol/L Normal 135-145 [facility] Comment on above: Performed By: #### 2 205514, 8770290, 8760974, 45784663 ####[facility] [address] [place] [address] CBC w/ Auto Diffon 3 Erythrocyte distribution width (RBC) [Ratio] 13.8 % Normal 10.9-14.2 [facility] Comment on above: Performed By: #### 2 183978, 9209949, 5913536, 50850137 ####[address] [address] Hematocrit (Bld) [Volume fraction] 41.7 % Normal 34.0-46.0 [facility] Comment on above: Performed By: #### 2 465280, 5732055, 3113488, 89413717 ####[address] [address] Hemoglobin (Bld) [Mass/Vol] 14.4 g/dL Normal 12.0-16.0 [facility] Comment on above: Performed By: #### 2 626752, 4070032, 9948131, 88037991 ####[address] [address] MCH (RBC) [Entitic mass] 31.1 pg Normal 27.0-34.0 [facility] Comment on above: Performed By: #### 2 485068, 4644762, 1195197, 19869344 ####[address] [address] MCHC (RBC) [Mass/Vol] 34.4 g/dL Normal 31.4-36.0 [facility] Comment on above: Performed By: #### 2 011953, 1891131, 5192781, 95182823 ####[address] [address] MCV (RBC) [Entitic vol] 90.2 fL Normal 80.0-100.0 [facility] Comment on above: Performed By: #### 2 841431, 6247831, 7755317, 77391134 ####[address] [address] Platelet mean volume (Bld) [Entitic vol] 7.8 fL Normal 6.4-10.8 [facility] Comment on above: Performed By: #### 2 414202, 7299536, 2951767, 68546520 ####[facility] [address] [place] [address] Platelets (Bld) [#/Vol] 171.0 E9/L Normal 150.0-500.0 [facility] Comment on above: Performed By: #### 2 666016, 0287906, 0477386, 79969707 ####[facility] [address] [place] [address] RBC (Bld) [#/Vol] 4.6 E12/L Normal 4.3-5.9 [facility] Comment on above: Performed By: #### 2 657537, 1068323, 6213537, 51360818 ####[facility] [address] [place] [address] WBC corrected for nucl RBC Auto (Bld) [#/Vol] 16.5 E9/L High 4.0-11.0 [facility] Comment on above: Result Comment: Slid e reviewed by TLP. Performed By: #### 2 239934, 6281551, 4337542, 36098724 ####[facility] [address] [place] [address] CHEMISTRYOrdered By: Lab ROP User on 05-10-2023 Glucose [Mass/Vol] 336 mg/dL High 55 - 99 mg/dL FTM C POC Subsection Comment on above: Result Comment: Modesto ANDRES POC Device SN [id number] Invalid Interpretation Code FT POC Subsection POC User ID [id number] Invalid Interpretation Code FT POC Subsection POC Username FREDDIE GUY Invalid Interpretation Code [facility] POC Subsection Glucose [Mass/Vol] 299 mg/dL High 55 - 99 mg/dL FTM C POC Subsection Comment on above: Result Comment: Modesto vanegas RN/ Cleaned Meter POC Device SN [id number] Invalid Interpretation Code FT POC Subsection POC User ID [id number] Invalid Interpretation Code [facility] POC Subsection POC Username MAURICE POST Invalid Interpretation Code [facility] POC Subsection CHEMISTRYOrdered By: SYSTEM SYSTEM on 05-10-2023 Anion gap [Moles/Vol] 12 mmol/L Normal 6 - 16 mEq/L [facility] Remisol Calcium [Mass/Vol] 8.3 mg/dL Low 8.9 - 11.1 mg/dL [facility] Remisol Chloride [Moles/Vol] 111 mmol/L Normal 101 - 111 mmol/ L [facility] Remisol CO2 [Moles/Vol] 22 mmol/L Normal 21 - 31 mmol/L [facility] Remisol Creatinine [Mass/Vol] 1.4 mg/dL High 0.5 - 1.3 mg/dL [facility] Remisol GFR/1.73 sq M.predicted among non-blacks MDRD (S/P/Bld) [Vol rate/Area] 40 mL/min/1.73 m2 Low >=59mL/min/1.73 m2 [facility] Chem S Glucose [Mass/Vol] 256 mg/dL High 55 - 199 mg/dL [facility] Remisol Potassium [Moles/Vol] 3.7 mmol/L Normal 3.5 - 5.3 mmol/L [facility] Remisol Sodium [Moles/Vol] 141 mmol/L Normal 135 - 145 mmol/L [facility] Remisol Urea nitrogen [Mass/Vol] 30 mg/dL High 5 - 21 mg/dL [facility] Remisol Urea nitrogen/Creatinine [Mass ratio] 21 mg/mg High 10 - 20 [facility] Remisol Capillary Glucose POCon 04-30 Glucose [Mass/Vol] 336 mg/dL High 55-99 [facility] Comment on above: Result Comment: Modesto vanegas RN/ Performed By: #### 2 [id number] ####[facility] [address] [place] [address] Glucose [Mass/Vol] 299 mg/dL High 55-99 [facility] Comment on above: Result Comment: Modesto vanegas RN/NIEVESleaned Meter Performed By: #### 2 25720506 ####[facility] [address] [place] [address] Glucose [Mass/Vol] 314 mg/dL High 55-99 [facility] Comment on above: Result Comment: Modesto vanegas RN/ Performed By: #### 2 69929764 ####[facility] [address] [place] [address] Glucose [Mass/Vol] 249 mg/dL High 55-99 [facility] Comment on above: Result Comment: Modesto vanegas RN/ Performed By: #### 2 09090374 ####[facility] [address] [place] [address] Glucose [Mass/Vol] 247 mg/dL High 55-99 [facility] Comment on above: Result Comment: Modesto vanegas RN/ Performed By: #### 2 49407478 ####[address] [place] [address] Glucose [Mass/Vol] 302 mg/dL High 55-99 [facility] Comment on above: Result Comment: Modesto ANDRES Performed By: #### 2 48271999 ####[facility] [address] [place] [address] Consent for Anesthesiaon Consent for Anesthesia [id number]# 1.00CD:127 Normal [facility] Consent for Procedure/Surger yon 05-10-2023 Consent for Procedure/Surgery [id number]# 1.00CD:127 Normal [facility] HEMATOLOGYOrdered By: SYSTEM SYSTEM on 05-10-2023 Basophils/100 WBC (Bld) 0.1 % Normal 0.0 - 2.0 % [facility] Basophils/Leukocytes Auto (Bld) [Pure # fraction] 0.0 E9/L Normal 0.0 - 0.2 E9/L [facility] Eosinophils/100 WBC (Bld) 0.0 % Normal 0.0 - 8.0 % [facility] Eosinophils/Leukocyt es Auto (Bld) [Pure # fraction] 0.0 E9/L Normal 0.0 - 0.5 E9/L [facility] Lymphocytes/100 WBC (Bld) 6.5 % Low [...] Result Comment: Slid e reviewed by TLP. NmfE1hqk 05-10-2023 HbA1c (Bld) [Mass fraction] 10.1 % High <=5.9 [facility] Comment on above: Performed By: #### 7 [id number] ####[facility] [address] [place] [address] Insurance Correspondence Off iceon 05-10-2023 Insurance Correspondence Office [id number]#1 .00CD:127 Normal [facility] Interdisciplinary Note - Galo e Manageron 05-10-2023 Interdisciplinary Note - Sql Programmer [facility] Comment on above: Result Comment: Elec tronically Signed By: Rayne Carpenter\.br\Date and Time Signed: 05/10/23 15:00 EDT Interdisciplinary Note - Arabella n 05-10-2023 Interdisciplinary Note - OT OT ampac six clicks score 22/24 = no further OT needs. Patient was Ind w/ basic adls/transfers in her room. Dc inpatient OT services. Normal [facility] IntraOperative Documentson 0 05-10-2023 IntraOperative Documents [id number]# 1.00CD:127 [facility] Monitor Recordon 05-10-2023 Monitor Record [id number]# 1.00CD:127 [facility] Monitor Record [id number]# 1.00CD:127 [facility] Progress Note-Physicianon Progress Note-Physician [facility] Comment on above: Result Comment: Elec tronically Signed By: ROSEMARY CHISHOLM, Ck\.br\Date and Time Signed: 05/10/23 11:23 EDT XR Abdomen 1 Viewon 05-10-20 23 XR Abdomen 1 View [facility] eGFRon 05-10-2023 GFR/1.73 sq M.predicted among non-blacks MDRD (S/P/Bld) [Vol rate/Area] 40 mL/min/1.73 m2 Low >=59 [facility] Comment on above: Order Comment: Order added by Discern Expert. Result Comment: Methods Examiner maxi kidney disease could be indicated at eGFR's of less than 60 mL/min/1.73m2. Kidney failure is indicated at less than 15 mL/min/1.73m2. Performed By: #### 2 466354, 2968302, 3871014, 45570124 ####[facility] [address] [place] [address] Auto Diffon 05-09-2023 Basophils/100 WBC (Bld) 0.5 % Normal 0.0-2.0 [facility] Comment on above: Order Comment: Order Added by Christen Expert. Performed By: #### 1 6559111, 3607533, 44153222, 6052967, 3070973, 5454545, 2046169, 4113045, 50629281 ####[address] [place] [address] Basophils/Leukocytes Auto (Bld) [Pure # fraction] 0.1 E9/L Normal 0.0-0.2 [facility] Comment on above: Order Comment: Order Added by Christen Expert. Performed By: #### 1 9211001, 7049086, 31053192, 5871305, 7112635, 6253381, 7097028, 3192381, 31473643 ####[address] [place] [address] Eosinophils/100 WBC (Bld) 0.2 % Normal 0.0-8.0 [facility] Comment on above: Order Comment: Order Added by Discern Expert. Performed By: #### 1 2276260, 5135443, 99084937, 2924024, 5181714, 6737625, 9434935, 4462085, 53402123 ####[address] [place] [address] Eosinophils/Leukocyt es Auto (Bld) [Pure # fraction] 0.0 E9/L Normal 0.0-0.5 [facility] Comment on above: Order Comment: Order Added by Christen Expert. Performed By: #### 1 6885995, 4467118, 77904699, 9626187, 0185555, 1063227, 9666758, 0121801, 75778633 ####[address] [place] [address] Lymphocytes/100 WBC (Bld) 6.1 % Low 14.0-50.0 [facility] Comment on above: Order Comment: Order Added by Discern Expert. Performed By: #### 1 7486139, 3942024, 71130409, 1992629, 0455763, 7368853, 1997728, 4077350, 55595410 ####[address] [place] [address] Lymphocytes/Leukocyt es Auto (Bld) [Pure # fraction] 1.0 E9/L Normal 1.0-4.0 [facility] Comment on above: Order Comment: Order Added by Christen Expert. Performed By: #### 1 8501831, 1931067, 47187065, 6524694, 1486326, 8981630, 3413007, 4207177, 12699799 ####[address] [address] Monocytes/100 WBC (Bld) 7.4 % Normal 4.0-14.0 [facility] Comment on above: Order Comment: Order Added by Discern Expert. Performed By: #### 1 4516250, 9967555, 18774900, 3185226, 2614871, 6379215, 0508946, 6250114, 84416881 ####[address] [place] [address] Monocytes/Leukocytes Auto (Bld) [Pure # fraction] 1.2 E9/L High 0.2-1.0 [facility] Comment on above: Order Comment: Order Added by Discern Expert. Performed By: #### 1 1963457, 8415594, 76495390, 2704543, 1203085, 6250132, 9075638, 2477831, 81325027 ####[address] [place] [address] Neutrophils/100 WBC (Bld) 85.8 % High 36.0-75.0 [facility] Comment on above: Order Comment: Order Added by Discern Expert. Performed By: #### 1 1746358, 3787929, 61327119, 8994898, 3957457, 0764093, 8100938, 5770198, 23708953 ####[facility] [address] [place] [address] Neutrophils/Leukocyt es Auto (Bld) [Pure # fraction] 13.6 E9/L High 2.0-7.5 [facility] Comment on above: Order Comment: Order Added by Discern Expert. Performed By: #### 1 8570605, 2687181, 71320870, 4979511, 9399855, 3724311, 3241238, 7288155, 66952809 ####[facility] [address] [place] [address] BMPon 05-09-2023 Creatinine [Mass/Vol] 1.6 mg/dL High 0.5-1.3 [facility] Comment on above: Performed By: #### 1 9322148, 6153816, 84855865, 7246751, 4156054, 3589496, 6334092, 4838999, 00722189 ####[facility] [address] [place] [address] Urea nitrogen [Mass/Vol] 23 mg/dL High 5-21 [facility] Comment on above: Performed By: #### 1 0948464, 1886574, 93261668, 0875013, 7444405, 6210866, 4900744, 6345790, 20521780 ####[facility] [address] [place] [address] Urea nitrogen/Creatinine [Mass ratio] 14 No Units Normal 10-20 [facility] Comment on above: Performed By: #### 1 4334257, 9287043, 37011873, 1044385, 8207446, 7442462, 9000334, 8487773, 67676058 ####[facility] [address] [place] [address] Anion gap [Moles/Vol] 10 mmol/L Normal 6-16 [facility] Comment on above: Performed By: #### 1 9988935, 5201747, 04169801, 7191712, 6044729, 4464188, 0937633, 0771096, 89091095 ####[facility] [address] [place] [address] Calcium [Mass/Vol] 9.0 mg/dL Normal 8.9-11.1 [facility] Comment on above: Performed By: #### 1 9709179, 1074079, 30598754, 1004234, 7190306, 3602387, 9666605, 4049168, 47709980 ####[facility] [address] [place] [address] Chloride [Moles/Vol] 111 mmol/L Normal 101-111 [facility] Comment on above: Performed By: #### 1 6148580, 0476980, 12390042, 0426886, 3746558, 9629309, 4530173, 2433219, 32109145 ####[facility] [address] [place] [address] CO2 [Moles/Vol] 24 mmol/L Normal 21-31 [facility] Comment on above: Performed By: #### 1 0776607, 8439534, 10294860, 1855409, 9234307, 0527943, 4735694, 8830430, 02208607 ####[facility] [address] [place] [address] Glucose [Mass/Vol] 419 mg/dL High 55-199 [facility] Comment on above: Result Comment: If t his glucose result represents a fasting glucose, interpretation should refer to the following reference range: 55-99 mg/dL Performed By: #### 1 9510361, 3554818, 48705644, 9701748, 0069804, 5277764, 8207975, 3533854, 26832429 ####[facility] [address] [place] [address] Potassium [Moles/Vol] 4.0 mmol/L Normal 3.5-5.3 [facility] Comment on above: Performed By: #### 1 9210985, 1112605, 77677542, 4556288, 5686703, 6669151, 7189883, 1101546, 12362211 ####[facility] [address] [place] [address] Sodium [Moles/Vol] 141 mmol/L Normal 135-145 [facility] Comment on above: Performed By: #### 1 1700318, 0748380, 57985395, 3473102, 3013522, 7463852, 3696503, 5969576, 11354153 ####[facility] [address] [place] [address] CBC w/ Auto Diffon Erythrocyte distribution width (RBC) [Ratio] 13.8 % Normal 10.9-14.2 [facility] Comment on above: Performed By: #### 1 7642103, 9146884, 20231716, 1086720, 2687184, 5430425, 7487273, 4627972, 66750567 ####[facility] [address] [place] [address] Hematocrit (Bld) [Volume fraction] 46.4 % High 34.0-46.0 [facility] Comment on above: Performed By: #### 1 5269351, 0259315, 95963402, 4567933, 1640116, 0905203, 7350336, 5903357, 45904912 ####[facility] [address] [place] [address] Hemoglobin (Bld) [Mass/Vol] 16.0 g/dL Normal 12.0-16.0 [facility] Comment on above: Performed By: #### 1 0462767, 3283354, 62902482, 7284013, 4725276, 6915079, 7240648, 1524685, 85799801 ####[facility] [address] [place] [address] MCH (RBC) [Entitic mass] 31.1 pg Normal 27.0-34.0 [facility] Comment on above: Performed By: #### 1 7507334, 7393934, 56780731, 1222412, 0100787, 5586248, 1280968, 0981454, 13591639 ####[facility] [address] [place] [address] MCHC (RBC) [Mass/Vol] 34.4 g/dL Normal 31.4-36.0 [facility] Comment on above: Performed By: #### 1 7874305, 5847377, 55313308, 1149177, 5666676, 3101703, 8830714, 5040448, 16529988 ####[address] [place] [address] MCV (RBC) [Entitic vol] 90.4 fL Normal 80.0-100.0 [facility] Comment on above: Performed By: #### 1 2723307, 5171027, 42242552, 0370987, 3663541, 5007213, 4049678, 9733425, 83121332 ####[facility] [address] [place] [address] Platelet mean volume (Bld) [Entitic vol] 7.6 fL Normal 6.4-10.8 [facility] Comment on above: Performed By: #### 1 7582140, 9443077, 06826015, 0462992, 9309948, 9052710, 1159574, 9368620, 03773276 ####[facility] [address] [place] [address] Platelets (Bld) [#/Vol] 181.0 E9/L Normal 150.0-500.0 [facility] Comment on above: Performed By: #### 1 7603731, 5479173, 34941890, 9493644, 5336682, 6670827, 4970102, 4786884, 96767157 ####[facility] [address] [place] [address] RBC (Bld) [#/Vol] 5.1 E12/L Normal 4.3-5.9 [facility] Comment on above: Performed By: #### 1 3652567, 1959618, 76490639, 4130164, 2221160, 1233568, 4804946, 3030352, 19347832 ####[facility] [address] [place] [address] WBC corrected for nucl RBC Auto (Bld) [#/Vol] 15.9 E9/L High 4.0-11.0 [facility] Comment on above: Performed By: #### 1 7269306, 6490910, 09169106, 6228851, 6058411, 8588519, 8275969, 0638862, 87394163 ####[facility] [address] [place] [address] CHEMISTRYOrdered By: SYSTEM SYSTEM on 05-09-2023 Glucose [Mass/Vol] 460 mg/dL Invalid Interpretation Code 55 - 199 mg/dL [facility] Comment on above: Result Comment: Crit ical Result verified by repeat analysis\Critical Result [id number] Called to [facility] by SHELLY FERNANDO And [...] mg/dL [facility] Bilirubin.indirect [Mass or moles/Vol] 0.7 mg/dL Normal 0.1 - 0.9 mg/dL [facility] Calcium [Mass/Vol] 9.0 mg/dL Normal 8.9 - 11.1 mg/dL [facility] Chloride [Moles/Vol] 111 mmol/L Normal 101 - 111 mmol/ L [facility] CO2 [Moles/Vol] 24 mmol/L Normal 21 - 31 mmol/L [facility] Creatinine [Mass/Vol] 1.6 mg/dL High 0.5 - 1.3 mg/dL [facility] GFR/1.73 sq M.predicted among non-blacks MDRD (S/P/Bld) [Vol rate/Area] 34 mL/min/1.73 m2 Low >=59mL/min/1.73 m2 [facility] Chem S Globulin (S) [Mass/Vol] 3.5 g/dL Normal 1.4 - 4.0 gm/dL [facility] Glucose [Mass/Vol] 419 mg/dL High 55 - 199 mg/dL [facility] Lactate [Mass/Vol] 1.8 mmol/L Normal 0.5 - 2.2 mmol/L [facility] Lipase [Catalytic activity/Vol] 70 U/L High 13 - 58 unit/L [facility] Potassium [Moles/Vol] 4.0 mmol/L Normal 3.5 - 5.3 mmol/L [facility] Protein [Mass/Vol] 7.0 g/dL Normal 6.0 - 7.8 gm/dL [facility] Sodium [Moles/Vol] 141 mmol/L Normal 135 - 145 mmol/L [facility] Troponin I.cardiac [Mass/Vol] 15.10 pg/mL Normal 10.10 - 27.10 pg/mL [facility] Urea nitrogen [Mass/Vol] 23 mg/dL High 5 - 21 mg/dL [facility] Urea nitrogen/Creatinine [Mass ratio] 14 mg/mg Normal 10 - 20 [facility] CHEMISTRYOrdered By: Nayely Dawkins on 05-09-2023 HbA1c (Bld) [Mass fraction] 10.1 % High <=5.9% [facility] ChemAutoSS COAGULATIONOrdered By: Claudio Jones on 05-09-2023 aPTT Coag (PPP) [Time] 23.7 s Low 25.1 - 36.5 second(s) [facility] Auto Coag INR Coag (PPP) [Relative time] 0.9 {INR} Invalid Interpretation Code [facility] Auto Coag PT Coag (PPP) [Time] 10.0 s Normal 9.4 - 1 2.5 second(s) [facility] Auto Coag CT Abdomen/Pelvis w/o Contra ston 05-09-2023 CT Abdomen/Pelvis w/o Contrast Normal [facility] Capillary Glucose POCon 04-30 Glucose [Mass/Vol] 495 mg/dL Abnormal 55-99 [facility] Comment on above: Result Comment: [place] ANDRES Performed By: #### 2 [id number] ####[facility] [address] [place] [address] Glucose Cap >500 Abnormal 55-99 [facility] Comment on above: Result Comment: [place] ANDRES Performed By: #### 2 33154874 ####[facility] [address] [place] [address] Glucose [Mass/Vol] 434 mg/dL High 55-99 [facility] Comment on above: Result Comment: [place] ANDRES Performed By: #### 2 82070051 ####[facility] [address] [place] [address] Consent for Treatmenton 04-30 Consent for Treatment [id number] .00CD:127 Normal [facility] Consultation Noteon 05-09-20 Consultation Note Normal [facility] Comment on above: Result Comment: Elec tronically Signed By: JAILENE CHISHOLM, Glynn Valdes\Date and Time Signed: 05/09/23 14:07 EDT ED Clinical Summaryon 2022 ED Clinical Summary Normal [facility] ED Note-Physicianon 05-09-20 ED Note-Physician Normal [facility] Comment on above: Result Comment: Elec tronically Signed By: Lazara Larios PA-C\.br\Date and Time Signed: 05/09/23 12:01 EDT\.br\Electronically Co-Signed By: Noe Azar DO\.br\Date and Time Co-Signed: 05/09/23 16:06 EDT ED Patient Education Noteon 05-09-2023 ED Patient Education Note Normal [facility] ED Patient Summaryon 023 ED Patient Summary Normal [facility] Glucoseon 05-09-2023 Glucose [Mass/Vol] 460 mg/dL Abnormal 55-199 [facility] Comment on above: Order Comment: Finge rstick blood sugar is >450. Blood sugar blood draw ordered per protocol. Result Comment: Crit ical Result verified by repeat analysis\Critical Result [id number] [facility] by SHELLY FERNANDO And Read Back For Confirmation at: 05/09/2023 22:21:19 Performed By: #### 2 794172 ####[facility] [address] [place] [address] HEMATOLOGYOrdered By: SYSTEM SYSTEM on 05-09-2023 Basophils/100 [...] 90.4 fL Normal 80.0 - 100.0 fL [facility] HemeAutoSS Platelet mean volume (Bld) [Entitic vol] 7.6 fL Normal 6.4 - 10.8 fL [facility] HemeAutoSS Platelets (Bld) [#/Vol] 181.0 E9/L Normal 150.0 - 500.0 E9/L [facility] HemeAutoSS RBC (Bld) [#/Vol] 5.1 E12/L Normal 4.3 - 5.9 E12/L [facility] HemeAutoSS WBC corrected for nucl RBC Auto (Bld) [#/Vol] 15.9 E9/L High 4.0 - 11.0 E9/L [facility] HemeAutoSS Hep Func Panelon 05-09-2023 Albumin [Mass/Vol] 3.5 g/dL Normal 3.3-5.0 [facility] Comment on above: Performed By: #### 1 6857973, 8747087, 16435339, 8568450, 4945573, 2971672, 7567432, 1046452, 73418688 ####[address] [address] Albumin/Globulin (S) [Mass conc ratio] 1.0 Low 1.1-2.2 [facility] Comment on above: Performed By: #### 1 3688418, 3584735, 63585372, 0849828, 1881826, 9976249, 2972796, 7367437, 82864798 ####[address] [address] ALP [Catalytic activity/Vol] 68 Int._Unit/L Normal 21-98 [facility] Comment on above: Performed By: #### 1 1028389, 5477912, 15444205, 9610527, 5562253, 9536941, 1531178, 2651910, 40046287 ####[address] [address] ALT No additional P-5'-P [Catalytic activity/Vol] 18 Int._Unit/L Normal 6-46 [facility] Comment on above: Performed By: #### 1 5361649, 1794459, 17153962, 9652500, 2819447, 4009092, 0229922, 1436829, 51093574 ####[address] [address] AST [Catalytic activity/Vol] 18 Int._Unit/L Normal 5-43 [facility] Comment on above: Performed By: #### 1 1571061, 9689048, 35037177, 4485320, 0513908, 2709917, 5627181, 1269913, 37745209 ####[address] [place] [address] Bilirubin [Mass/Vol] 0.9 mg/dL Normal 0.0-1.1 [facility] Comment on above: Performed By: #### 1 6924740, 1248465, 21540262, 5537720, 3749084, 4976244, 0558503, 5102101, 42079195 ####[address] [address] Bilirubin.direct [Mass/Vol] 0.2 mg/dL Normal 0.1-0.4 [facility] Comment on above: Performed By: #### 1 1744014, 2353651, 28476478, 4435180, 0847608, 7840287, 8040733, 6466367, 42850853 ####[facility] [address] [place] [address] Bilirubin.indirect [Mass or moles/Vol] 0.7 mg/dL Normal 0.1-0.9 [facility] Comment on above: Performed By: #### 1 8128172, 6473828, 36230624, 4615926, 4115110, 3966274, 6120521, 2696733, 04307612 ####[facility] [address] [place] [address] Globulin (S) [Mass/Vol] 3.5 g/dL Normal 1.4-4.0 [facility] Comment on above: Performed By: #### 1 1842389, 4035296, 89915711, 2360398, 9714098, 2031167, 2282403, 7915444, 27138889 ####[facility] [address] [place] [address] Protein [Mass/Vol] 7.0 g/dL Normal 6.0-7.8 [facility] Comment on above: Performed By: #### 1 0803661, 3701659, 82543594, 4517644, 6547067, 3819124, 5292735, 5076545, 52346994 ####[facility] [address] [place] [address] Laboratory - Microbiology an d Antimicrobial susceptibilityOrdered By: Nata Prieto on 05-09-2023 Bacteria identified Cx Nom (U) <10,000 cfu/ml Mixed skin contaminants [facility] Lactic Acidon 05-09-2023 Lactate [Mass/Vol] 1.8 mmol/L Normal 0.5-2.2 [facility] Comment on above: Performed By: #### 1 6632220, 3156457, 21369192, 9291118, 3104567, 3563031, 6584492, 1762408, 57919514 ####[facility] [address] [place] [address] Lipase Levelon 05-09-2023 Lipase [Catalytic activity/Vol] 70 U/L High 13-58 [facility] Comment on above: Performed By: #### 1 6535670, 8112489, 67982901, 7527629, 5736782, 2547543, 5976042, 2963409, 43992708 ####[facility] [address] [place] [address] Main OR PACU I Recordon 04-30 Main OR PACU I Record Normal [facility] Main OR Preoperative Recordo n 05-09-2023 Main OR Preoperative Record Normal [facility] Main OR Preoperative Record Normal [facility] Monitor Recordon 05-09-2023 Monitor Record [id number]# 1.00CD:127 Normal [facility] Monitor Record [id number]# 1.00CD:127 Normal [facility] Operative Reporton 3 Operative Report Normal [facility] Comment on above: Result Comment: Elec tronically Signed By: JAILENE CHISHOLM, Glynn Neff.br\Date and Time Signed: 05/09/23 14:13 EDT PT & PTTon 05-09-2023 aPTT Coag (PPP) [Time] 23.7 second(s) Low 25.1-36.5 [facility] Comment on above: Result Comment: Para meter 15 days - 4 weeks 1 - 5 months 6 - 11 months 1 - 5 years 6 - 10 years 11 - 17 years PTT Mean: 35.4 (27.6-45.6) Mean: 33.5 (24.8-40.7) Mean: 32.4 (25.1-40.7) Mean: 31.6 (24.0-39.2) Mean: 31.6 (26.9-38.7) Mean: 31.0 (24.6-38.4) Pediatric Reference ranges were obtained from a study by leila Pino alSharny prepared from 1437 samples obtained at 7 different centers using the same coagulation reagent and instrumentation as [facility]. Currently there are no coagulation studies available worldwide for children to 14 days, and no normal ranges. Heparin therapeutic range (represented by Anti-Factor Xa activity of 0.2 - 0.4 U/mL) corresponds to PTT of 56.6 - 109.0 sec. Performed By: #### 1 8988523, 4591858, 52368216, 4550839, 1351610, 2141332, 1796397, 7936955, 62396246 ####[facility] [address] [place] [address] INR Coag (PPP) [Relative time] 0.9 {INR} Invalid Interpretation Code [facility] Comment on above: Result Comment: INR results are specifically intended to assess patients stabilized on long-term Anticoagulation therapy suggested INR?s ?Less Intensive Anticoagulation? 2.0 ? 3.0Conventional Range 3.0 ? 4.5 Performed By: #### 1 8338293, 1219601, 99368768, 0919247, 9494957, 0365926, 2882081, 5941619, 79586621 ####[facility] [address] [place] [address] PT Coag (PPP) [Time] 10.0 second(s) Normal 9.4-12.5 [facility] Comment on above: Result Comment: 15 d ays - 4 weeks 1 - 5 months 6 -11 months 1- 5 years 6-10 years 11 -17 years Mean: 11.2 (9.5-12.6) Mean: 11.0 (9.7-12.8) Mean: 11.0 (9.8-13.0) Mean: 11.3 (9.9-13.4) Mean: 11.7 (10.0-14.6) Mean: 11.8 (10.0 - 14.1) Pediatric Reference ranges were obtained from a study by brett Pino prepared from 1437 samples obtained at 7 different centers using the same coagulation reagent and instrumentation as [facility]. Currently there are no coagulation studies available worldwide for children to 14 days, and no normal ranges. Performed By: #### 1 9053236, 7053546, 36393850, 7524742, 7074064, 7010034, 9589518, 2398583, 54710372 ####[facility] [address] [place] [address] Progress Note-Physicianon Progress Note-Physician Normal [facility] Comment on above: Result Comment: Elec tronically Signed By: Gino Yates Jr., DO\.br\Date and Time Signed: 05/09/23 15:16 EDT Progress Note-Physician Normal [facility] Comment on above: Result Comment: Elec tronically Signed By: Gino Yates Jr., DO\.br\Date and Time Signed: 05/09/23 13:29 EDT Troponin 0 Hr.on 05-09-2023 Troponin I.cardiac [Mass/Vol] 15.10 pg/mL Normal 10.10-27.10 [facility] Comment on above: Result Comment: The 95% CI (Confidence Interval) PPV (Positive Predictive Value) for myocardial infarction in females is 38 pg/mL, in males 51 pg/mL. The results should be used in conjunction with clinical conditions of myocardial infarction.(Access High Sensitivity Troponin I Instructions For Use, Jairo Elsy, March 2018) Performed By: #### 1 8825225, 2516430, 36834848, 1093423, 7189625, 8102029, 8516238, 2505391, 91158000 ####[facility] [address] [place] [address] UA With Cult Reflexon 2022 Bacteria LM Ql (Urine sed) 1+ /HPF Abnormal Trace [facility] Comment on above: Performed By: #### 2 024227, 13917951 ####[facility] [address] [place] [address] Bilirubin Ql (U) Negative Normal Negative [facility] Comment on above: Performed By: #### 2 573480, 61829989 ####[facility] [address] [place] [address] Clarity (U) SL CLOUDY Abnormal Clear [facility] Comment on above: Performed By: #### 2 265802, 46410622 ####[facility] [address] [place] [address] Color (U) STRAW Abnormal Yellow [facility] Comment on above: Performed By: #### 2 277096, 46516197 ####[facility] [address] [place] [address] Epithelial cells.squamous LM.HPF (Urine sed) [#/Area] 0-2 Normal 0-2 [facility] Comment on above: Performed By: #### 2 691079, 33875397 ####[place] [address] Glucose Test strip (U) [Mass/Vol] 3+ Abnormal Negative [facility] Comment on above: Performed By: #### 2 254123, 56826752 ####[facility] [address] [place], [place] [address] Hemoglobin Ql (U) 1+ Abnormal Negative [facility] Comment on above: Performed By: #### 2 540485, 77802955 ####[facility] [address] [place], [place] [address] Ketones (U) [Mass/Vol] Negative Normal Negative [facility] Comment on above: Performed By: #### 2 314468, 50185412 ####[facility] [address] [place] [address] Uncertain.plasma/Lithi um.RBC (Bld) [Mass ratio] 0-3 Normal 0-3 [facility] Comment on above: Performed By: #### 2 619802, 18912666 ####[facility] [address] [place] [address] Nitrite Ql (U) Negative Normal Negative [facility] Comment on above: Performed By: #### 2 940384, 81985124 ####[facility] [address] [place] [address] pH (U) 5.5 [pH] Invalid Interpretation Code 5.0-9.0 [facility] Comment on above: Performed By: #### 2 990239, 01934635 ####[place] [address] Protein (U) [Mass/Vol] TRACE Abnormal Negative [facility] Comment on above: Performed By: #### 2 688893, 79740728 ####[place] [address] Specific gravity (U) [Rel density] 1.015 Invalid Interpretation Code 1.005-1.030 [facility] Comment on above: Performed By: #### 2 682326, 27353962 ####[place] [address] Type of Urine collection method Clean Catch Normal [facility] Comment on above: Performed By: #### 2 556055, 05839947 ####[place] [address] Urobilinogen Qn (U) 0.2 {Isis'U}/dL Normal 0.0-1.0 [facility] Comment on above: Performed By: #### 2 684229, 04166728 ####[place] [address] WBC Auto Ql (U) 1+ Abnormal Negative [facility] Comment on above: Performed By: #### 2 204025, 94583945 ####[place] [address] WBC LM.HPF (Urine sed) [#/Area] /[HPF] Abnormal 0-5 [facility] Comment on above: Performed By: #### 2 174461, 80827370 ####[place] [address] URINALYSISOrdered By: Alecia Jones on 05-09-2023 Bacteria [...] AM) Normal Negative [facility] UA Auto SS Uncertain.plasma/Lithi um.RBC (Bld) [Mass ratio] 0-3 /HPF Normal [...] Desc Clean Catch (05/09/23 11:07 AM) Normal [facility] UA Auto SS Urobilinogen Qn (U) 0.9576399 {Isis'U}/dL Normal 0.0 - 1.0 EU/dL [facility] UA Auto SS WBC Auto Ql (U) 1+ *ABN* (05/09/23 11:07 AM) Invalid Interpretation Code Negative [facility] UA Auto SS WBC LM.HPF (Urine sed) [#/Area] /[HPF] Invalid Interpretation Code 0-5/HPF [facility] UA Auto SS eGFRon 05-09-2023 GFR/1.73 sq M.predicted among non-blacks MDRD (S/P/Bld) [Vol rate/Area] 34 mL/min/1.73 m2 Low >=59 [facility] Comment on above: Order Comment: Order added by Discern Expert. Result Comment: Methods Examiner maxi kidney disease could be indicated at eGFR's of less than 60 mL/min/1.73m2. Kidney failure is indicated at less than 15 mL/min/1.73m2. Performed By: #### 1 5790547, 7307823, 00349580, 7569468, 3857907, 9125070, 2814034, 5524282, 69426494 ####[facility] [address] [place] [address] [facility] 03-29-2023 CNC HNO ID: [id number] Author: Coordinator, Mammography Service: ? Author Type: Physician Type: Letter Filed: 03/30/2023 11:31 PM Note Text: March 30, 2023 PID: [id number] Shahana Grace [address] [place] [address] Dear Ms. Grace, We are pleased to [...] report will be kept on file at [facility] as part of your permanent medical record and are available for your continuing care. Thank you for allowing us to help in meeting your health care needs. Sincerely, Dr. Costa Interpreting Radiologist [facility] (Normal over 40) Normal [facility] SCREENINGon 03-26-2023 [facility] SCREENING * * *Final Report* * * DATE OF EXAM: Mar 26 2023 2:03PM [facility] 0581 - [facility] SCREENING / PROCEDURE REASON: Z08.29 * * * * Physician Interpretation * * * * RESULT: #[id number] - [facility] SCREENING BILATERAL DIGITAL SCREENING MAMMOGRAM WITH CAD: 03/26/2023 HISTORY: Z12.31 / Screening Mammogram-Patient reports NO symptoms. RESULT: TECHNIQUE: The study was acquired using full field digital technology and interpreted from soft copy. Current study was also evaluated with a Computer Aided Detection (CAD). Comparison is made to exams dated: 07/13/2018 mammogram - [facility], 11/10/2019 mammogram - [facility], 11/11/2020 mammogram - [facility], and [facility]/28[facility] There are scattered fibroglandular elements in both breasts. There is a biopsy clip in the right breast. No significant masses, calcifications, or other findings are seen in either breast. There has been no significant interval change. IMPRESSION: NEGATIVE There is no mammographic evidence of malignancy. A 1 year screening mammogram is recommended. Sharona arechiga/vincent:03/29/2023 08:29:23 Lay Up Operator(s): Izabela Cardona [facility] letter sent: Normal over 40 Mammogram [...] Health, Family Medicine, and Medical/Surgical Oncology, the [facility] has carefully reviewed the data and [...] their providers when to stop screening mammograms. Marketing Project Lead: Vincent Transcribe Date/Time: Mar 26 2023 1:20P Dictated by : SHARONA COSTA MD This examination was interpreted and the report reviewed and electronically signed by: SHARONA COSTA MD on Mar 29 2023 8:29AM EST [id number] N Normal [facility] Urine 10 SGon 11-24-2022 Albumin DL <= 20 mg/L (U) [Mass/Vol] Negative [facility] Other Albumin DL <= 20 mg/L (U) [Mass/Vol] Moderate [facility] Other pH (U) 5.0 [pH] [facility] Other Urine 10 SG Negative [facility] Other Urine 10 SG 1.005 [facility] Other Urine 10 SG trace [facility] Other Urine 10 SG 0.2 [facility] Other Urine Cultureon 11-24-2022 Bacteria identified Cx Nom (U) Reason for Exam Urinary tract infection, site not specified;Hematuria, unspe Urine Reason for Exam: Urinary tract infection, site not specified;Hematuria, unspe : Urine ORGANISM: Enterococcus faecalis (O:ENTFAC) [place] Count 75,000 Aerobic LAUREN Charge (PCMIC38) ---- [...] RESISTANT TO ALL B-LACTAM DRUGS. PERFORMED BY: [place] [address] PATHOLOGIST UNDERGROUND MINER KEVIN SWARTZ M.D. Normal [facility] Comment on above: Performed By: #### C UU #### [address] CHEMISTRYOrdered By: SYSTEM SYSTEM on 11-14-2022 Albumin [Mass/Vol] 4.0 g/dL Normal 3.3 - 5.0 gm/dL F C Remisol Albumin/Globulin [Mass ratio] 1.1 {ratio} Normal [...] rate/Area] 40 mL/min/1.73 m2 Low >=59mL/min/1.73 m2 [facility] Chem S Globulin (S) [Mass/Vol] 3.6 g/dL Normal 1.4 - 4.0 gm/dL [facility] Remisol Glucose [Mass/Vol] 263 mg/dL High 55 - 199 mg/dL [facility] Remisol Lactate [Mass/Vol] 1.7 mmol/L Normal 0.5 [...] Interpretation Code Negative [facility] UA Auto SS Uncertain.plasma/Lithi um.RBC (Bld) [Mass ratio] 4-20 /HPF Normal [...] [facility] UA Auto SS Urobilinogen Qn (U) 1.1655015 {Isis'U}/dL Normal 0.0 - 1.0 EU/dL [facility] UA Auto SS WBC Auto Ql (U) 2+ *ABN* (11/14/22 1:26 AM) Invalid Interpretation Code Negative [facility] UA Auto SS WBC LM.HPF (Urine sed) [#/Area] 16-25 /HPF Invalid Interpretation Code 0-5/HPF [facility] UA Auto SS CHEMISTRYOrdered By: Lab ROP User on 11-13-2022 Glucose [Mass/Vol] 223 mg/dL High 55 - 99 mg/dL FTM C POC Subsection Comment on above: Result Comment: Modesto vanegas RN/ POC Device SN [id number] Invalid Interpretation Code [facility] POC Subsection POC User ID [id number] Invalid Interpretation Code [facility] POC Subsection POC Username AZIZA DELA CRUZ Invalid Interpretation Code [facility] POC Subsection Office Visit (Cardiology)on 07-29-2022 Follow-up visit Diagnoses/Problems Assessed CAD in nenana artery (414.01) (I25.10) CHF (congestive heart failure) (428.0) (I50.9) History of PTCA (V45.82) (Z98.61) 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) PVC (premature ventricular contraction) (427.69) (I49.3) Ischemic cardiomyopathy (414.8) (I25.5) Atherosclerosis of coronary artery bypass graft of nenana heart without angina pectoris (414.05) (I25.810) Diabetes (250.00) (E11.9) Hyperlipidemia (272.4) (E78.5) Hypertension (401.9) (I10) Class 2 obesity with body mass index (BMI) of 35.0 to 35.9 in adult (278.00,V85.35) (E66.9,Z68.35) Never a smoker History of VT (myocardial infarction) (412) (I25.2) Orders CHF (congestive [...] Weight Tips; Status:Complete - Retrospective Authorization; Done: [id number] Some eating tips that can help you lose weight.; Status:Complete - Retrospective Authorization; Done: 29Jul2022 SocHx: Never a smoker Tobacco Use Screening; Status:Complete; Done: [id number] Patient Instructions Please bring all medicines, vitamins, [...] usage or hospitalizations. She suffered an inferior VT in 2015 with primary revascularization of the [...] of section x2 History of Colonoscopy 30Aug2006 [facility] History of Lithotripsy Past Medical History [...] Recorded: 29Jul2022 09:54AM Heart Rate80, L Radial [place]516, LUE, Sitting Byllaeadq96, LUE, Sitting Height5 ft 2 in Tekuxl939 lb BMI Vphyngutfh39.85 kg/m2 BSA Calculated1.9 (more content not included)... Normal [facility] Tobacco Screening.on 022 Adult depression screening assessment No [facility] [address] DO Work Phone: Fall risk assessment a) No falls within the last year [facility] [address] DO Work Phone: Tobacco use status CP b) No [facility] [address] DO Work Phone: CHEMISTRYOrdered By: Lab ROP User on 06-19-2022 Glucose [Mass/Vol] 190 mg/dL High 55 - 99 mg/dL FTM C POC Subsection Comment on above: Result Comment: Modesto vanegas RN/ POC Device SN [id number] Invalid Interpretation Code FT POC Subsection POC User ID [id number] Invalid Interpretation Code [facility] POC Subsection POC Username Ayleen Kelley Invalid Interpretation Code [facility] POC Subsection Glucose [Mass/Vol] 176 mg/dL High 55 - 99 mg/dL FTM C POC Subsection Comment on above: Result Comment: Modesto vanegas RN/ POC Device SN [id number] Invalid Interpretation Code [facility] POC Subsection POC User ID [id number] Invalid Interpretation Code [facility] POC Subsection POC Username Ayleen Kelley Invalid Interpretation Code [facility] POC Subsection CHEMISTRYOrdered By: SYSTEM SYSTEM on 06-19-2022 Anion gap [Moles/Vol] 9 mmol/L Normal 6 - 16 mEq/L [facility] Remisol Calcium [Mass/Vol] 8.5 mg/dL Low 8.9 - 11.1 mg/dL [facility] Remisol Chloride [Moles/Vol] 113 mmol/L High 101 - 111 mmol/ L [facility] Remisol CO2 [Moles/Vol] 20 mmol/L Low 21 - 31 mmol/L [facility] Remisol Creatinine [Mass/Vol] 2.0 mg/dL High 0.5 - 1.3 mg/dL [facility] Remisol GFR/1.73 sq M.predicted among blacks MDRD (S/P/Bld) [Vol rate/Area] 30 mL/min/1.73 m2 Low >=59mL/min/1.73 m2 [facility] Chem S GFR/1.73 sq M.predicted among non-blacks MDRD (S/P/Bld) [Vol rate/Area] 25 mL/min/1.73 m2 Low >=59mL/min/1.73 m2 [facility] Chem S Glucose [Mass/Vol] 207 mg/dL High 55 - 199 mg/dL [facility] Remisol Potassium [Moles/Vol] 4.4 mmol/L Normal 3.5 - 5.3 mmol/L [facility] Remisol Sodium [Moles/Vol] 138 mmol/L Normal 135 - 145 mmol/L [facility] Remisol Urea nitrogen [Mass/Vol] 37 mg/dL High 5 - 21 mg/dL [facility] Remisol Urea nitrogen/Creatinine [Mass ratio] 18 mg/mg Normal 10 - 20 [facility] Remisol HEMATOLOGYOrdered By: SYSTEM SYSTEM on 06-19-2022 Basophils/100 WBC (Bld) 0.2 % Normal 0.0 - 2.0 % [facility] HemeAutoSS Basophils/Leukocytes Auto (Bld) [Pure # fraction] 0.0 E9/L Normal 0.0 - 0.2 E9/L [facility] HemeAutoSS Eosinophils/100 WBC (Bld) 0.2 % Normal [...] 12.0 g/dL Normal 12.0 - 16.0 gm/dL [facility] HemeAutoSS MCH (RBC) [Entitic mass] 30.6 pg Normal 27.0 - 34.0 pg [facility] HemeAutoSS MCHC (RBC) [Mass/Vol] 34.0 g/dL Normal 31.4 - 36.0 gm/dL [facility] HemeAutoSS MCV (RBC) [Entitic vol] 90.1 fL Normal 80.0 - 100.0 fL [facility] HemeAutoSS Platelet mean volume (Bld) [Entitic vol] 7.4 fL Normal 6.4 - 10.8 fL [facility] HemeAutoSS Platelets (Bld) [#/Vol] 170.0 E9/L Normal 150.0 - 500.0 E9/L [facility] HemeAutoSS RBC (Bld) [#/Vol] 3.9 E12/L Low 4.3 - 5.9 E12/L [facility] HemeAutoSS WBC corrected for nucl RBC Auto (Bld) [#/Vol] 11.5 E9/L High 4.0 - 11.0 E9/L [facility] HemeAutoSS CHEMISTRYOrdered By: Lab ROP User on 06-18-2022 Glucose [Mass/Vol] 192 mg/dL High 55 - 99 mg/dL FT C POC Subsection Comment on above: Result Comment: Modesto vanegas RN/ POC Device SN [id number] Invalid Interpretation Code FT POC Subsection POC User ID [id number] Invalid Interpretation Code [facility] POC Subsection POC Username KAIA BURR Invalid Interpretation Code [facility] POC Subsection CHEMISTRYOrdered By: SYSTEM SYSTEM on [...] rate/Area] 32 mL/min/1.73 m2 Low >=59mL/min/1.73 m2 [facility] Chem S GFR/1.73 sq M.predicted among non-blacks MDRD (S/P/Bld) [Vol rate/Area] 26 mL/min/1.73 m2 Low >=59mL/min/1.73 m2 [facility] Chem S Glucose [Mass/Vol] 279 mg/dL High [...] g/dL Normal 6.0 - 7.8 gm/dL [facility] Remisol Sodium [Moles/Vol] 141 mmol/L Normal 135 - 145 mmol/L FT Remisol Urea nitrogen [Mass/Vol] 31 mg/dL High 5 - 21 mg/dL FT Remisol Urea nitrogen/Creatinine [Mass ratio] 16 mg/mg Normal 10 - 20 FT Remisol HEMATOLOGYOrdered By: SYSTEM SYSTEM on 06-17-2022 [...] Klebsiella pneumoniae <10,000 cfu/ml Mixed skin contaminants [facility] Trimethoprim+Sulfamethoxazol e LAUREN [Susc]Ordered By: Nata Prieto on 06-17-2022 Klebsiella pneumoniae Klebsiella pneumoniae [facility] URINALYSISOrdered By: Ruperto Lutz on 06-17-2022 [...] Interpretation Code Negative [facility] UA Auto SS Uncertain.plasma/Lithi um.RBC (Bld) [Mass ratio] 4-20 /HPF Normal [...] Desc Clean Catch (06/17/22 2:35 PM) Normal [facility] UA Auto SS Urobilinogen Qn (U) 0.9727364 {Isis'U}/dL Normal 0.0 - 1.0 EU/dL [facility] UA Auto SS WBC Auto Ql (U) 1+ *ABN* (06/17/22 2:35 PM) Invalid Interpretation Code Negative [facility] UA Auto SS WBC LM.HPF (Urine sed) [#/Area] 6-15 /HPF Invalid Interpretation Code 0-5/HPF [facility] UA Auto SS CNCOon 01-28-2022 [facility] HNO ID: [id number] Author: Mammography Coordinator Service: ? Author Type: Physician Type: Letter Filed: 01/29/2022 11:34 PM Note Text: January 28, 2022 PID: [id number] Shahana Grace [address] [place] [id number] Dear Ms. Grace, We are pleased to [...] report will be kept on file at [facility] as part of your permanent medical record and are available for your continuing care. Thank you for allowing us to help in meeting your health care needs. Sincerely, Dr. Green Interpreting Radiologist [facility] (Normal over 40) Normal [facility] SCREENINGon 01-28-2022 [facility] SCREENING * * *Final Report* * * DATE OF EXAM: Jan 28 2022 12:49PM [facility] 0581 - [facility] SCREENING / PROCEDURE REASON: annual * * * * Physician Interpretation * * * * RESULT: #[id number] - [facility] SCREENING BILATERAL DIGITAL SCREENING MAMMOGRAM WITH CAD: 01/28/2022 HISTORY: Screening Mammogram-Patient reports NO symptoms. RESULT: TECHNIQUE: The study was acquired using full field digital technology and interpreted from soft copy. Current study was also evaluated with a Computer Aided Detection (CAD). Comparison is made to exams dated: 11/11/2020 mammogram - [facility], 11/10/2019 mammogram - [facility], 07/13/2018 mammogram, and 04/29/2017 [facility]ogram - [facility]. There are scattered fibroglandular elements in both breasts. There is a biopsy clip in the right breast. No significant masses, calcifications, or other findings are seen in either breast. There has been no significant interval change. IMPRESSION: NEGATIVE There is no mammographic evidence of malignancy. A 1 year screening mammogram is recommended. Nafisa fernando/vincent:01/28/2022 14:40:17 Lay Up Operator(s): RT Grupo(R)(M), [facility] letter sent: [...] Health, Family Medicine, and Medical/Surgical Oncology, the [facility] has carefully reviewed the data and [...] their providers when to stop screening mammograms. Marketing Project Lead: Vincent Transcribe Date/Time: Jan 28 2022 12:39P Dictated by: NAFISA GREEN MD This examination was interpreted and the report reviewed and electronically signed by: NAFISA GREEN MD on Jan 28 2022 2:40PM EST [id number] Normal [facility] CHEMISTRYOrdered By: SYSTEM SYSTEM on 12-10-2021 Creatinine [Mass/Vol] 1.1 mg/dL Normal 0.5 - 1.3 mg/dL [facility] Remisol GFR/1.73 sq M.predicted among blacks MDRD (S/P/Bld) [Vol rate/Area] 60 mL/min/1.73 m2 Normal >=59mL/min/1.73 m2 [facility] Chem S GFR/1.73 sq M.predicted among non-blacks MDRD (S/P/Bld) [Vol rate/Area] 49 mL/min/1.73 m2 Low >=59mL/min/1.73 m2 [facility] Chem S XR KUB 1 VIEWon 10-08-2021 [...] DEL ROSARIO Date: 2021-10-08 07:13 Normal [facility] PROF CHEM 8 (BAS METB)on Anion gap [Moles/Vol] 12.7 mmol/L Normal [facility] Comment on above: Performed By: #### B MP #### [facility] [address] [address] [address] Shreya De La Fuente Calcium [Mass/Vol] 9.7 mg/dL Normal 8.4-10.2 [facility] Comment on above: Performed By: #### B MP #### [facility] [address] [address] [address] Shreya De La Fuente Chloride [Moles/Vol] 108 mmol/L Critically high 98-107 [facility] Comment on above: Performed By: #### B MP #### [facility] [address] [address] [address] Shreya De La Fuente CO2 [Moles/Vol] 26.1 mmol/L Normal 22.0-30.0 [facility] Comment on above: Performed By: #### B MP #### [facility] [address] [address] [address] Shreya De La Fuente Creatinine [Mass/Vol] 1.29 mg/dL Critically high 0.52-1.04 [facility] Comment on above: Performed By: #### B MP #### [facility] [address] [address] [address] Shreya De La Fuente EGFR-AF GEORGIAN 50 mL/min/1.73m2 Critically low >=60 [facility] Comment on above: Performed By: #### B MP #### [facility] [address] [address] [address] Shreya De La Fuente EGFR-NON AF GEORGIAN 41 mL/min/1.73m2 Critically low >=60 [facility] Comment on above: Performed By: #### B MP #### [facility] [address] [address] [address] Shreya De La Fuente Glucose [Mass/Vol] 117 mg/dL Critically high 74-106 [facility] Comment on above: Performed By: #### B MP #### [facility] [address] [address] [address] Shreya De La Fuente Potassium [Moles/Vol] 3.8 mmol/L Normal 3.4-5.0 [facility] Comment on above: Performed By: #### B MP #### [facility] [address] [address] [address] Shreya De La Fuente Sodium [Moles/Vol] 143 mmol/L Normal 137-145 [facility] Comment on above: Performed By: #### B MP #### [facility] [address] [address] [address] Shreya De La Fuente Urea nitrogen [Mass/Vol] 15.0 mg/dL Normal 7.0-17.0 [facility] Comment on above: Performed By: #### B MP #### [facility] [address] [address] [address] Shreya De La Fuente Urea nitrogen/Creatinine [Mass ratio] 11.6 mg/mg Normal [facility] Comment on above: Performed By: #### B MP #### [facility] [address] [place], [place] [address] Dr. Shreya De La Fuente Tobacco Screening.on 021 Fall risk assessment a) No falls within the last year [facility] [place] 600 DO Work Phone: Heart Rate Regular [facility] DO Work Phone: Tobacco use status CP b) No [facility] [place] 600 DO Work Phone: Radiologyon 07-15-2021 CT Head WO contrast Normal MP-No [facility] 250 DO Work Phone: Laboratory - Chemistry and C hemistry - challengeon 07-10-2021 CO2 [Moles/Vol] 20 mmol/L below low threshold 21-31 [facility] 250 DO Work Phone: Creatinine [Mass/Vol] 1.6 mg/dL above high threshold 0.5-1.3 [facility] 250 DO Work Phone: No Panel Informationon 07-10 39 {mL/min/1.73_m2} below low threshold >=59 [facility] 250 DO Work Phone: Comment on above: eGFR is race adjuste d. AA=. 32 {mL/min/1.73_m2} below low threshold >=59 [facility] 250 DO Work Phone: Comment on above: Chronic kidney disea se could be indicated at eGFR's of less than 60 mL/min/1.73m2. Kidney failure is indicated at less than 15 mL/min/1.73m2. 14 {mEq/L} Normal 6-16 [facility] 250 DO Work Phone: 113 mmol/L above high threshold 101-111 [facility] Work Phone: 4.3 mmol/L Normal 3.5-5.3 [facility] Sel[facility] y 250 DO Work Phone: 143 mmol/L Normal 135-145 [facility] y 250 DO Work Phone: 9.6 mg/dL Normal 8.9-11.1 [facility] Selam pruitt 250 DO Work Phone: 31 {No_Units} above high threshold 10-20 [facility] Selam pruitt 250 DO Work Phone: [phone] 49 mg/dL above high threshold 5-21 [facility] Selam pru[address] 250 DO Work Phone: 139 mg/dL Normal 55-199 [facility] Selam pruitt 250 DO Work Phone: Comment on above: If this glucose resu lt represents a fasting glucose, interpretation should refer to the following reference range: 55-99 mg/dL Tobacco Screening.on 021 Fall risk assessment a) No falls within the last year [facility] 600 DO Work Phone: Tobacco use status [facility] b) No [facility] 600 DO Work Phone: Creatinineon 04-22-2017 Creatinine 0.63 mg/dL Normal 0.50-1.05 [facility] Comment on above: Performed By: #### 1 [id number] ####[facility] [address] [place] [address] eGFR (MDRD) mL/min/{1.73_m2} Normal [facility] Comment on above: Result Comment: Inte rpretation for Chronic Kidney Disease:Stages 1&2 >60 Healthy or potential kidney damage.Mild decrease of GFR.Stage 3 30-59 Moderate decrease of GFR.Stage 4 15-29 Severe decrease of GFR.Stage 5 <15 Kidney failure or on dialysis. Performed By: #### 1 [id number] ####[facility] [address] [place] [address] Electrolyte Panelon 04-22-20 17 Anion gap 17 mmol/L Normal 10-20 [facility] Comment on above: Performed By: #### 1 [id number] ####[facility] [address] [place] [address] Bicarbonate (HCO3) 23 mmol/L Normal 21-32 [facility] Comment on above: Performed By: #### 1 [id number] ####[facility] [address] [place] [address] Chloride 108 mmol/L High 98-107 [facility] Comment on above: Performed By: #### 1 [id number] ####[facility] [address] [place] [address] Potassium molar conc 3.9 mmol/L Normal 3.5-5.1 [facility] Healthcare Comment on above: Performed By: #### 1 [id number] ####[facility] [address] [place] [address] Sodium 144 mmol/L Normal 136-145 [facility] Comment on above: Performed By: #### 1 [id number] ####[facility] [address] [place] [address] Urea Nitrogenon 04-22-2017 Urea nitrogen 11 mg/dL Normal 6-23 [facility] Comment on above: Performed By: #### 1 [id number] ####[facility] [id number] [place] [address] Vital Signs Date Time Vital Sign Value Performing Clinician Facility 02-23-2024 12:00-0400 Hourly Rounding Glynn ALACRON [facility] 02-23-2024 12:00-0400 Promise to Return Glynn ALARCON [facility] 02-23-2024 11:08-0400 Heart rate 61 /min Glynn ALARCON [facility] 02-23-2024 11:08-0400 SaO2% (BldA) [Mass fraction] 94 % Glynn ALARCON [facility] 02-23-2024 11:06-0400 Diastolic blood pressure 73 mm[Hg] Glynn AGNES [facility] 02-23-2024 11:06-0400 Mean blood pressure 108 mm[Hg] Glynn AGNES [facility] 02-23-2024 11:06-0400 Systolic blood pressure 179 mm[Hg] Glynn AGNES [facility] 02-23-2024 11:06-0400 Body temperature 97.88 [degF] Glynn AGNES [facility] 02-23-2024 11:00-0400 Hourly Rounding Glynn AGNES [facility] 02-23-2024 11:00-0400 Promise to Return Glynn AGNES [facility] 02-23-2024 10:00-0400 Hourly Rounding Glynn AGNES [facility] 02-23-2024 10:00-0400 Promise to Return Glynn AGNES [facility] 02-23-2024 07:00-0400 Body temperature 97.34 [degF] Glynn AGNES [facility] 02-23-2024 07:00-0400 Diastolic blood pressure 79 mm[Hg] Glynn AGNES [facility] 02-23-2024 07:00-0400 Heart rate 54 /min Glynn AGNES [facility] 02-23-2024 07:00-0400 Respiratory rate 16 /min Glynn AGNES [facility] 02-23-2024 07:00-0400 SaO2% (BldA) [Mass fraction] 96 % Glynnjose GRUBBSSLIN [facility] 02-23-2024 07:00-0400 Systolic blood pressure 182 mm[Hg] Glynnjose GRUBBSSLIN [facility] 02-22-2024 23:29-0400 Body temperature 98.42 [degF] Glynnjose GRUBBSSLIN [facility] 02-22-2024 23:29-0400 Diastolic blood pressure 84 mm[Hg] Glynnjose GRUBBSSLIN [facility] 02-22-2024 23:29-0400 Heart rate 52 /min Glynnjose GRUBBSSLIN [facility] 02-22-2024 23:29-0400 Respiratory rate 16 /min Glynnjose GRUBBSSLIN [facility] 02-22-2024 23:29-0400 SaO2% (BldA) [Mass fraction] 97 % Glynnjose GRUBBSSLIN [facility] 02-22-2024 23:29-0400 Systolic blood pressure 162 mm[Hg] Glynnjose GRUBBSSLIN [facility] 02-22-2024 21:44-0400 Heart rate 48 /min Glynnjose GRUBBSSLIN [facility] 02-22-2024 19:15-0400 Mean blood pressure 116 mm[Hg] Glynnjose GRUBBSSLIN [facility] 02-22-2024 19:15-0400 Body temperature 98.24 [degF] Glynnjose GRUBBSSLIN [facility] 02-22-2024 16:51-0400 gluc 308 mg/dL Glynnjose GRUBBSSLIN [facility] [facility]22[facility] 15:00-0400 Body temperature 97.52 [degF] Glynn AGNES [facility] 02-22-2024 12:48-0400 gluc 303 mg/dL Glynn AGNES [facility] 02-22-2024 09:41-0400 Heart rate 87 /min Glynn AGNES [facility] 02-22-2024 09:40-0400 gluc 212 mg/dL Glynn AGNES [facility] 02-22-2024 07:30-0400 Mean blood pressure 101 mm[Hg] Glynn AGNES [facility] 02-22-2024 03:34-0400 Blood Pressure Location Glynn AGNES [facility] 02-22-2024 03:34-0400 Body temperature 97.16 [degF] Glynn AGNES [facility] 02-22-2024 03:34-0400 Heart rate 52 /min Glynn AGNES [facility] 02-22-2024 03:34-0400 Respiratory rate 18 /min Glynn AGNES [facility] 02-21-2024 15:00-0400 Blood Pressure Location Glynnjose GRUBBSSLIN [facility] 02-21-2024 15:00-0400 Mean blood pressure 103 mm[Hg] Glynn AGNES [facility] 02-21-2024 15:00-0400 Respiratory rate 16 /min Glynn AGNES [facility] 02-21-2024 12:00-0400 Mean blood pressure 99 mm[Hg] Glynn AGNES [facility] 02-21-2024 07:00-0400 Mean blood pressure 112 mm[Hg] Glynnjose GRUBBSSLIN [facility] 02-21-2024 02:37-0400 Heart rate 51 /min Glynn AGNES [facility] 02-20-2024 11:50-0400 Heart rate 57 /min Glynn AGNES [facility] 02-19-2024 13:28-0400 gluc Glynnjose GRUBBSSLIN [facility] Comment on above: Result Comment: pr 02-19-2024 13:28-0400 Heart rate 75 /min Glynnjose GRUBBSSLIN [facility] 08-05-2023 16:01-0500 Heart rate 78 /min Orestes COOK [facility] 08-05-2023 16:01-0500 SaO2% (BldA) [Mass fraction] 96 % Orestes COOK [facility] 08-05-2023 16:01-0500 Diastolic blood pressure 85 mm[Hg] Orestes COOK [facility] 08-05-2023 16:01-0500 Mean blood pressure 105 mm[Hg] Orestes COOK [facility] 08-05-2023 16:01-0500 Systolic blood pressure 146 mm[Hg] Orestes COOK [facility] 08-05-2023 16:01-0500 Mean blood pressure 105 mm[Hg] Orestes COOK [facility] 08-05-2023 16:01-0500 Respiratory rate 16 /min Orestes COOK [facility] 08-05-2023 15:35-0500 Heart rate 77 /min Orestes COOK [facility] 08-05-2023 15:35-0500 SaO2% (BldA) [Mass fraction] 93 % Orestes JACQUES [facility] 08-05-2023 15:34-0500 Diastolic blood pressure 78 mm[Hg] Orestes JACQUES [facility] 08-05-2023 15:34-0500 Mean blood pressure 106 mm[Hg] Orestes JACQUES [facility] 08-05-2023 15:34-0500 Systolic blood pressure 164 mm[Hg] Orestes JACQUES [facility] 08-05-2023 15:34-0500 Mean blood pressure 107 mm[Hg] Orestes JACQUES [facility] 08-05-2023 15:34-0500 Respiratory rate 18 /min Orestes JACQUES [facility] 08-05-2023 15:26-0500 Body temperature 97.88 [degF] Orestes JACQUES [facility] 08-05-2023 15:26-0500 Diastolic blood pressure 78 mm[Hg] Orestes JACQUES [facility] 08-05-2023 15:26-0500 Heart rate 71 /min Orestes JACQUES [facility] 08-05-2023 15:26-0500 Mean blood pressure 105 mm[Hg] Oresets JACQUES [facility] 08-05-2023 15:26-0500 Respiratory rate 20 /min Orestes JACQUES [facility] 08-05-2023 15:26-0500 SaO2% (BldA) [Mass fraction] 95 % Orestes JACQUES [place] [address]-07-2023 15:26-0500 Systolic blood pressure 159 mm[Hg] Orestes JACQUES [facility] 08-05-2023 15:15-0500 Respiratory rate 18 /min Orestes JACQUES [facility] 08-05-2023 15:01-0500 Body temperature 97.7 [degF] Orestes JACQUES [facility] 08-05-2023 14:55-0500 Respiratory rate 11 /min Orestes JACQUES [facility] 08-05-2023 14:50-0500 Respiratory rate 16 /min Orestes JACQUES [facility] 08-05-2023 12:46-0500 Mean blood pressure 127 mm[Hg] Orestes JACQUES [facility] 08-05-2023 12:46-0500 Blood Pressure Location Orestes JACQUES [facility] 08-05-2023 12:44-0500 Blood Pressure Location Orestes JACQUES [facility] 08-05-2023 12:30-0500 Blood Pressure Location Orestes JACQUES [facility] 08-05-2023 12:26-0500 Body temperature 97.88 [degF] Orestes JACQUES [facility] 07-28-2023 11:14-0500 Body height 157.5 cm Sterling Florian DO Work Phone: [facility] 07-28-2023 11:14-0500 Body mass index (BMI) [Ratio] 34.39 kg/m2 Sterling Florian DO Work Phone: [facility] 07-28-2023 11:14-0500 Body weight 85.28 kg Sterling Florian DO Work Phone: [facility] 07-28-2023 11:14-0500 Diastolic blood pressure 86 mm[Hg] Sterling Florian DO Work Phone: [facility] 07-28-2023 11:14-0500 Heart rate 74 /min Sterling Florian DO Work Phone: [facility] 07-28-2023 11:14-0500 Systolic blood pressure 128 mm[Hg] Sterling Florian DO Work Phone: [facility] 06-02-2023 12:16-0400 Hourly Rounding [facility] 06-02-2023 12:16-0400 Promise to Return [facility] 06-02-2023 11:11-0400 Hourly Rounding [facility] 06-02-2023 11:11-0400 Promise to Return [facility] 06-02-2023 11:03-0400 Heart rate 54 /min [facility] 06-02-2023 11:03-0400 SaO2% (BldA) [Mass fraction] 94 % [facility] 06-02-2023 11:02-0400 Body temperature 98.06 [degF] [facility] 06-02-2023 11:02-0400 Diastolic blood pressure 87 mm[Hg] [facility] 06-02-2023 11:02-0400 Mean blood pressure 113 mm[Hg] [facility] 06-02-2023 11:02-0400 Systolic blood pressure 165 mm[Hg] [facility] 06-02-2023 11:00-0400 Respiratory rate 18 /min [facility] 06-02-2023 10:29-0400 Hourly Rounding [facility] 06-02-2023 10:29-0400 Promise to Return [facility] 06-02-2023 08:50-0400 Diastolic blood pressure 83 mm[Hg] [facility] 06-02-2023 08:50-0400 Heart rate 68 /min [facility] 06-02-2023 08:50-0400 Systolic blood pressure 188 mm[Hg] [facility] 06-02-2023 08:03-0400 Heart rate 58 /min [facility] 06-02-2023 08:03-0400 SaO2% (BldA) [Mass fraction] 96 % [facility] 06-02-2023 08:00-0400 Diastolic blood pressure 83 mm[Hg] [facility] 06-02-2023 08:00-0400 Mean blood pressure 118 mm[Hg] [facility] 06-02-2023 08:00-0400 Systolic blood pressure 188 mm[Hg] [facility] 06-02-2023 08:00-0400 Body temperature 97.7 [degF] [facility] 06-02-2023 02:36-0400 Blood Pressure Location [facility] 06-02-2023 02:36-0400 Body temperature 98.06 [degF] [facility] 06-02-2023 02:36-0400 Heart rate 68 /min [facility] 06-02-2023 02:36-0400 Respiratory rate 17 /min [facility] 06-01-2023 21:00-0400 Respiratory rate 16 /min [facility] 06-01-2023 20:28-0400 Heart rate 37 /min [facility] 06-01-2023 19:42-0400 SaO2% (BldA) [Mass fraction] 92 % [place] [facility] 06-01-2023 19:41-0400 Mean blood pressure 98 mm[Hg] Paolajordi Woods [facility] 06-01-2023 16:31-0400 Mean blood pressure 133 mm[Hg] Paolajordi Woods [facility] 06-01-2023 16:31-0400 Respiratory rate 20 /min [facility] 06-01-2023 10:04-0400 Blood Pressure Location [facility] 06-01-2023 10:04-0400 Heart rate 67 /min [place] [facility] 06-01-2023 10:04-0400 Mean blood pressure 125 mm[Hg] Paola [facility] 06-01-2023 00:00-0400 Body temperature 97.7 [degF] [facility] 06-01-2023 00:00-0400 Mean blood pressure 107 mm[Hg] [facility] 05-31-[facility]23 18:32-0400 Blood Pressure Location [facility] 05-30-2023 17:47-0400 gluc 171 mg/dL [facility] 05-30-2023 12:32-0400 gluc 191 mg/dL [facility] 05-27-2023 10:58-0400 Heart rate 80 /min [facility] 05-27-2023 09:29-0400 Body temperature 98.06 [degF] [facility] 05-27-2023 08:15-0400 Respiratory rate 18 /min [facility] 05-27-2023 08:10-0400 Respiratory rate 17 /min [facility] 05-27-2023 06:00-0400 Body temperature 99.68 [degF] [facility] 05-26-2023 15:59-0400 Heart rate 76 /min Paola Woods [facility] 05-11-2023 11:12-0400 Hourly Rounding [facility] 05-11-2023 11:12-0400 Promise to Return [facility] 05-11-2023 10:16-0400 Hourly Rounding [facility] 05-11-2023 10:16-0400 Promise to Return [facility] 05-11-2023 09:30-0400 Hourly Rounding [facility] 05-11-2023 09:30-0400 Promise to Return [facility] 05-11-2023 08:23-0400 gluc 226 mg/dL [facility] 05-11-2023 08:22-0400 Diastolic blood pressure 79 mm[Hg] [facility] 05-11-2023 08:22-0400 Heart rate 58 /min [facility] 05-11-2023 08:22-0400 Systolic blood pressure 192 mm[Hg] [facility] 05-11-2023 08:04-0400 Heart rate 66 /min [facility] 05-11-2023 08:04-0400 SaO2% (BldA) [Mass fraction] 96 % [facility] 05-11-2023 08:02-0400 Diastolic blood pressure 79 mm[Hg] [facility] 05-11-2023 08:02-0400 Mean blood pressure 117 mm[Hg] [facility] 05-11-2023 08:02-0400 Systolic blood pressure 192 mm[Hg] [facility] 05-11-2023 08:00-0400 Body temperature 98.06 [degF] [facility] 05-10-2023 23:00-0400 Heart rate 64 /min [facility] 05-10-2023 23:00-0400 Respiratory rate 16 /min [facility] 05-10-2023 20:40-0400 Heart rate 67 /min [facility] 05-10-2023 19:37-0400 Heart rate 70 /min [facility] 05-10-2023 19:37-0400 SaO2% (BldA) [Mass fraction] 93 % [facility] 05-10-2023 19:33-0400 Body temperature 97.52 [degF] [facility] 05-10-2023 19:32-0400 Blood Pressure Location [facility] 05-10-2023 19:32-0400 Mean blood pressure 75 mm[Hg] [facility] 05-10-2023 15:00-0400 Body temperature 98.24 [degF] [facility] 05-10-2023 15:00-0400 Heart rate 63 /min [facility] 05-10-2023 15:00-0400 Mean blood pressure 86 mm[Hg] [facility] 05-10-2023 15:00-0400 SaO2% (BldA) [Mass fraction] 94 % [facility] 05-10-2023 11:57-0400 gluc 314 mg/dL [facility] 05-10-2023 11:00-0400 Mean blood pressure 101 mm[Hg] [facility] 05-10-2023 11:00-0400 Respiratory rate 18 /min [facility] 05-10-2023 08:22-0400 gluc 249 mg/dL [facility] 05-10-2023 08:21-0400 Heart rate 71 /min [facility] 05-10-2023 08:00-0400 Body temperature 97.7 [degF] [facility] 05-10-2023 08:00-0400 Mean blood pressure 107 mm[Hg] Margareth [facility] 05-10-2023 04:19-0400 Mean blood pressure 114 mm[Hg] [facility] 05-10-2023 04:19-0400 Body temperature 98.06 [degF] [facility] 05-09-2023 15:00-0400 Body temperature 97.88 [degF] [facility] 05-09-2023 15:00-0400 Respiratory rate 15 /min [facility] 05-09-2023 14:50-0400 Blood Pressure Location [facility] 05-09-2023 14:50-0400 Respiratory rate 21 /min [facility] 05-09-2023 14:35-0400 Respiratory rate 20 /min [facility] 05-09-2023 14:04-0400 Body temperature 98.06 [degF] [facility] 11-14-2022 02:39-0400 Body temperature 98.06 [degF] Kaylinn Dokken [facility] 11-14-2022 02:39-0400 Diastolic blood pressure 77 mm[Hg] Kaylinn Dokken [facility] 11-14-2022 02:39-0400 Heart rate 82 /min Kaylinn Dokken [facility] 11-14-2022 02:39-0400 Mean blood pressure 104 mm[Hg] Kaylinn Dokken [facility] 11-14-2022 02:39-0400 Respiratory rate 21 /min Kaylinn Dokken [facility] 11-14-2022 02:39-0400 SaO2% (BldA) [Mass fraction] 96 % Kaylinn Dokken [facility] 11-14-2022 02:39-0400 Systolic blood pressure 157 mm[Hg] Kaylinn Dokken [facility] 11-14-2022 02:04-0400 Diastolic blood pressure 84 mm[Hg] Kaylinn Dokken [facility] 11-14-2022 02:04-0400 Heart rate 79 /min Kaylinn Dokken [facility] 11-14-2022 02:04-0400 Mean blood pressure 111 mm[Hg] Kaylinn Dokken [facility] 11-14-2022 02:04-0400 Respiratory rate 18 /min Kaylinn Dokken [facility] 11-14-2022 02:04-0400 SaO2% (BldA) [Mass fraction] 95 % Kaylinn Dokken [facility] 11-14-2022 02:04-0400 Systolic blood pressure 164 mm[Hg] Kaylinn Dokken [facility] 11-14-2022 01:30-0400 Diastolic blood pressure 96 mm[Hg] Kaylinn Dokken [facility] 11-14-2022 01:30-0400 Heart rate 83 /min Kaylinn Dokken [facility] 11-14-2022 01:30-0400 Mean blood pressure 122 mm[Hg] Kaylinn Dokken [facility] 11-14-2022 01:30-0400 Respiratory rate 18 /min Jodyylinn Dokken [facility] 11-14-2022 01:30-0400 SaO2% (BldA) [Mass fraction] 96 % Jodyylinn Dokken [facility] 11-14-2022 01:30-0400 Systolic blood pressure 174 mm[Hg] Jodyylinn Dokken [facility] 11-14-2022 01:08-0400 Body temperature 99.68 [degF] Paulieinn Dokken [facility] 11-13-2022 23:38-0400 gluc 223 mg/dL Paulieinn Dokken [facility] 11-13-2022 23:38-0400 gluc Makenzien Dokken [facility] 11-13-2022 23:29-0400 Body temperature 98.24 [degF] Paulieinn Dokken [facility] 11-13-2022 23:29-0400 Heart rate 76 /min Jodyylinn Dokken [facility] 11-13-2022 23:29-0400 Respiratory rate 18 /min Jodyylinn Dokken [facility] 11-13-2022 23:14-0400 Heart rate 83 /min Jodyylinn Dokken [facility] 07-29-2022 09:54-0500 Body height 157.48 cm Albertina Arndt Work Phone: [facility] 250 DO Work Phone: 07-29-2022 09:54-0500 Body mass index (BMI) [Ratio] 35.85 kg/m2 Albertina Shermans Work Phone: [facility] 250 DO Work Phone: 07-29-2022 09:54-0500 Body surface area Derived from formula 1.9 m2 Albertina R Kuns Work Phone: [facility] 250 DO Work Phone: 07-29-2022 09:54-0500 Body weight 88.91 kg Albertina R Kuns Work Phone: [facility] 250 DO Work Phone: 07-29-2022 09:54-0500 Diastolic blood pressure 94 mm[Hg] Albertina R Kuns Work Phone: [facility] 250 DO Work Phone: 07-29-2022 09:54-0500 Heart rate 80 /min Albertina R Kuns Work Phone: [facility] 250 DO Work Phone: 07-29-2022 09:54-0500 Systolic blood pressure 138 mm[Hg] Albertina R Kuns Work Phone: [facility] 250 DO Work Phone: 07-13-2022 13:08-0500 Blood Pressure Location Wendy Lue [facility] 07-13-2022 13:08-0500 Diastolic blood pressure 80 mm[Hg] Wendy Lue [facility] 07-13-2022 13:08-0500 Heart rate 65 /min Wendy Lue [facility] 07-13-2022 13:08-0500 Respiratory rate 16 /min Wendy Lue [facility] 07-13-2022 13:08-0500 Systolic blood pressure 122 mm[Hg] Wendy Lue [facility] 06-19-2022 09:11-0400 gluc 176 mg/dL Orestes COOK [facility] 06-19-2022 09:10-0400 Diastolic blood pressure 85 mm[Hg] Orestes COOK [facility] 06-19-2022 09:10-0400 Heart rate 81 /min Orestes COOK [facility] 06-19-2022 09:10-0400 Systolic blood pressure 163 mm[Hg] Orestes COOK [facility] 06-19-2022 09:00-0400 Hourly Rounding Orestes COOK [facility] 06-19-2022 09:00-0400 Promise to Return Orestes COOK [facility] 06-19-2022 08:00-0400 Hourly Rounding Orestes COOK [facility] 06-19-2022 08:00-0400 Promise to Return Orestes COOK [facility] 06-19-2022 07:44-0400 Blood Pressure Location Orestes COOK [facility] 06-19-2022 07:44-0400 BP/Pulse Patient Position Orestes COOK [facility] 06-19-2022 07:44-0400 Diastolic blood pressure 85 mm[Hg] Orestes COOK [facility] 06-19-2022 07:44-0400 Heart rate 71 /min Orestes COOK [facility] 06-19-2022 07:44-0400 Mean blood pressure 111 mm[Hg] Orestes JACQUES [facility] 06-19-2022 07:44-0400 Respiratory rate 18 /min Orestes JACQUES [facility] 06-19-2022 07:44-0400 SaO2% (BldA) [Mass fraction] 93 % Orestes JACQUES [facility] 06-19-2022 07:44-0400 Systolic blood pressure 163 mm[Hg] Orestes JACQUES [facility] 06-19-2022 07:00-0400 Body temperature 98.24 [degF] Orestes JACQUES [facility] 06-19-2022 07:00-0400 Hourly Rounding Orestes JACQUES [facility] 06-19-2022 07:00-0400 Promise to Return Orestes JACQUES [facility] 06-19-2022 01:25-0400 Blood Pressure Location Orestes JACQUES [facility] 06-19-2022 01:25-0400 Body temperature 98.42 [degF] Orestes JACQUES [facility] 06-19-2022 01:25-0400 BP/Pulse Patient Position Orestes JACQUES [facility] 06-19-2022 01:25-0400 Diastolic blood pressure 77 mm[Hg] Orestes JACQUES [facility] 06-19-2022 01:25-0400 Heart rate 69 /min Orestes JACQUES [facility] 06-19-2022 01:25-0400 Mean blood pressure 100 mm[Hg] Orestes JACQUES [facility] 06-19-2022 01:25-0400 Respiratory rate 16 /min Orestes JACQUES [facility] 06-19-2022 01:25-0400 SaO2% (BldA) [Mass fraction] 94 % Orestes JACQUES [facility] 06-19-2022 01:25-0400 Systolic blood pressure 145 mm[Hg] Orestes JACQUES [facility] 06-18-2022 21:35-0400 Heart rate 77 /min Orestes JACQUES [facility] 06-18-2022 21:34-0400 gluc 192 mg/dL Orestes [address] [facility] 06-18-2022 19:35-0400 Blood Pressure Location Orestes JACQUES [facility] 06-18-2022 19:35-0400 Body temperature 98.06 [degF] Orestes JACQUES [facility] 06-18-2022 19:35-0400 BP/Pulse Patient Position Orestes JACQUES [facility] 06-18-2022 19:35-0400 Heart rate 73 /min Orestes [address] [facility] 06-18-2022 19:35-0400 Mean blood pressure 115 mm[Hg] Orestes [address] [facility] 06-18-2022 19:35-0400 Respiratory rate 16 /min Orestes [address] [facility] 06-18-2022 19:35-0400 SaO2% (BldA) [Mass fraction] 93 % Orestes [address] [facility] 06-18-2022 16:07-0400 Mean blood pressure 121 mm[Hg] Orestes COOK [facility] 06-18-2022 13:10-0400 gluc 234 mg/dL Orestes COOK [facility] 06-18-2022 08:09-0400 Heart rate 71 /min Orestes COOK [facility] 06-17-2022 20:17-0400 Heart rate 89 /min Orestes COOK [facility] 06-17-2022 19:45-0400 Body temperature 98.42 [degF] Orestes COOK [facility] 06-17-2022 19:45-0400 Mean blood pressure 92 mm[Hg] Orestes COOK [facility] 06-17-2022 19:45-0400 Respiratory rate 21 /min Orestes COOK [facility] 06-17-2022 19:30-0400 Mean blood pressure 103 mm[Hg] Orestes COOK [facility] 06-17-2022 19:30-0400 Respiratory rate 20 /min Orestes COOK [facility] 06-17-2022 19:25-0400 Respiratory rate 23 /min Orestes COOK [facility] 06-17-2022 19:18-0400 Body temperature 97.16 [degF] Orestes COOK [facility] 06-17-2022 13:50-0400 Heart rate 74 /min Orestes COOK [facility] 06-17-2022 13:35-0400 Body temperature 98.6 [degF] Orestes COOK [facility] 06-17-2022 13:35-0400 Heart rate 71 /min Orestes COOK [facility] 02-02-2022 11:31-0400 Diastolic blood pressure 87 mm[Hg] Feroz Cotton [facility] 02-02-2022 11:31-0400 Mean blood pressure 114 mm[Hg] Feroz Cotton [facility] 02-02-2022 11:31-0400 Systolic blood pressure 167 mm[Hg] Feroz Yury [facility] 02-02-2022 11:29-0400 Blood Pressure Location Feroz Cotton [facility] 02-02-2022 11:29-0400 Diastolic blood pressure 100 mm[Hg] Feroz Cotton [facility] 02-02-2022 11:29-0400 Heart rate 76 /min Feroz Cotton [facility] 02-02-2022 11:29-0400 Respiratory rate 16 /min Feroz Cotton [facility] 02-02-2022 11:29-0400 SaO2% (BldA) [Mass fraction] 98 % Feroz Cotton [facility] 02-02-2022 11:29-0400 Systolic blood pressure 171 mm[Hg] Feroz Cotton [facility] 11-26-2021 11:06-0400 Blood Pressure Location Wendy Lue [facility] 11-26-2021 11:06-0400 Diastolic blood pressure 78 mm[Hg] Wendy Lue [facility] 11-26-2021 11:06-0400 Heart rate 68 /min Wendy [facility]ue [facility] 11-26-2021 11:06-0400 Respiratory rate 16 /min Wendy Lue [facility] 11-26-2021 11:06-0400 Systolic blood pressure 132 mm[Hg] Wendy Lue [facility] 11-24-2021 08:56-0400 Diastolic blood pressure 76 mm[Hg] Gabrielabala Cotton [facility] 11-24-2021 08:56-0400 Mean blood pressure 107 mm[Hg] Gabrielabala Cotton [facility] 11-24-2021 08:56-0400 Systolic blood pressure 169 mm[Hg] Feroz Yury [facility] 11-24-2021 08:54-0400 Blood Pressure Location Feroz Yury [facility] 11-24-2021 08:54-0400 Diastolic blood pressure 99 mm[Hg] Feroz Yury [facility] 11-24-2021 08:54-0400 Heart rate 74 /min Mohbala Yury [facility] 11-24-2021 08:54-0400 Respiratory rate 16 /min Feroz Yury [facility] 11-24-2021 08:54-0400 SaO2% (BldA) [Mass fraction] 98 % Feroz Yury [facility] 11-24-2021 08:54-0400 Systolic blood pressure 184 mm[Hg] Feroz Cotton [facility] 07-22-2021 12:44-0500 Body height 157.48 cm Albertina R Kuns Work Phone: [facility] 600 DO Work Phone: 07-22-2021 12:44-0500 Body mass index (BMI) [Ratio] 34.39 kg/m2 Albertina R Kuns Work Phone: [facility] [place] 600 DO Work Phone: 07-22-2021 12:44-0500 Body surface area Derived from formula 1.86 m2 Albertina R Kuns Work Phone: [facility] [place] 600 DO Work Phone: 07-22-2021 12:44-0500 Body weight 85.28 kg Albertina R Kuns Work Phone: [facility] [place] 600 DO Work Phone: 07-22-2021 12:44-0500 Diastolic blood pressure 84 mm[Hg] Albertina R Kuns Work Phone: [facility] [place] 600 DO Work Phone: 07-22-2021 12:44-0500 Heart rate 80 /min Albertina R Kuns Work Phone: [facility] [place] 600 DO Work Phone: 07-22-2021 12:44-0500 Systolic blood pressure 124 mm[Hg] Albertina R Kuns Work Phone: [facility] [place] 600 DO Work Phone: 07-10-2021 14:08-0500 Body height 157.48 cm Albertina R Kuns Work Phone: [facility] [place] 600 DO Work Phone: 07-10-2021 14:08-0500 Body mass index (BMI) [Ratio] 33.84 kg/m2 Albertina R Lanes Work Phone: [facility] [employer] 600 DO Work Phone: 07-10-2021 14:08-0500 Body surface area Derived from formula 1.85 m2 Albertina R Lanes Work Phone: [facility] [employer] 600 DO Work Phone: 07-10-2021 14:08-0500 Body weight 83.92 kg Albertina R Lanes Work Phone: [facility] [employer] 600 DO Work Phone: 07-10-2021 14:08-0500 Diastolic blood pressure 80 mm[Hg] Albertina R Lanes Work Phone: [facility] [employer] 600 DO Work Phone: 07-10-2021 14:08-0500 Heart rate 50 /min Albertina R Lanes Work Phone: [facility] [employer] [place] 600 DO Work Phone: 07-10-2021 14:08-0500 Systolic blood pressure 126 mm[Hg] Albertina R Lanes Work Phone: [facility] [employer] 600 DO Work Phone: Encounters Encounter Date Encounter Type Care Provider Facility Start: 03-13-2024 ambulatory Glynn Vivar ty:CD:[id number] Start: 02-25-2024 End: 02-25-2024 ambulatory MARCO KURTZ Not Available Start: 02-19-2024 End: 02-23-2024 Evaluation and management of inpatient LEONEL Corona Facility[facility] Start: 02-19-2024 Emergency department patient visit Rose Tao Christiano Facility:[facility] Start: 02-19-2024 End: 02-23-2024 Evaluation and management of inpatient Glynn ALARCON [facility] Start: 08-19-2023 ambulatory Wendy Gold Facility:[facility] Start: 08-05-2023 End: 08-05-2023 Admission to same day surgery center Orestes JACQUES [facility] Start: 08-05-2023 End: 08-05-2023 ambulatory Orestes JACQUES Facility:[facility] Start: 08-04-2023 End: 08-04-2023 ambulatory Albertina Lanes Facility:[facility] Start: 08-04-2023 End: 08-04-2023 ambulatory DO Albertina Kuns Work Phone: [facility] Work Phone: Start: 08-04-2023 End: 08-04-2023 Patient encounter procedure DO Albertina Kuns Work Phone: [facility] [place] Work Phone: Start: 07-28-2023 End: 07-28-2023 Office outpatient visit 15 minutes Sterling Sindon DO Work Phone: [facility] Comment on above: 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; S/P CABG x 4; Type 2 diabetes mellitus with other specified complication, with long-term current use of insulin ([facility]); Mixed hyperlipidemia; Primary hypertension; History of VT (myocardial infarction) Start: 07-28-2023 End: 07-28-2023 ambulatory [facility] Start: 07-23-2023 End: 07-23-2023 ambulatory Orestes JACQUES Facility:[facility] Start: 07-23-2023 End: 07-23-2023 Patient encounter procedure Orestes JACQUES [facility] Start: 07-15-2023 End: 07-15-2023 ambulatory Orestes JACQUES Facility:CD:[id number] Start: 07-02-2023 End: 07-02-2023 ambulatory Orestes JACQUES Facility:[facility] Start: 06-30-2023 Telephone encounter Albertina Arndt [facility] Start: 06-30-2023 End: 06-30-2023 ambulatory Orestes Mary Kay GEORGIE [facility] [employer] Other Start: 06-30-2023 End: 06-30-2023 Patient encounter procedure Orestes JACQUES [facility] Start: 06-21-2023 End: 06-21-2023 ambulatory Garrett Palmer Other [facility] [employer] Other Start: 06-21-2023 Telephone encounter Garrett Palmer [facility] Start: 06-10-2023 End: 06-10-2023 ambulatory Orestes Muñiz GEORGIE Facility:[facility] Start: 06-10-2023 End: 06-10-2023 Patient encounter procedure Orestes JACQUES [facility] Start: 06-08-2023 End: 06-08-2023 ambulatory Albertina Arndt Other [facility] [employer] Other Start: 06-08-2023 Telephone encounter Albertina Arndt [facility] Start: 05-27-2023 End: 06-02-2023 Evaluation and management of inpatient Paola Woods Facility:[facility] Start: 05-26-2023 End: 06-02-2023 Evaluation and management of inpatient Paola Angelai [facility] Start: 05-25-2023 End: 05-25-2023 ambulatory Glynn DENT Facility:[facility] Start: 05-25-2023 End: 05-25-2023 Patient encounter procedure Glynn DENT [facility] Start: 05-24-2023 ambulatory Wendy Gold Facility:[facility] Start: 05-17-2023 Telephone encounter Albertina Arndt [facility] Start: 05-17-2023 End: 05-17-2023 ambulatory Glynn DENT [facility] [employer] Other Start: 05-17-2023 End: 05-17-2023 Patient encounter procedure Glynn R JAILENE [facility] Start: 05-09-2023 End: 05-11-2023 ambulatory [facility] Facility:[facility] Start: 05-09-2023 End: 05-11-2023 Observation [facility] Start: 03-29-2023 Documentation procedure Mammog elvia Coordinator [facility] Start: 03-29-2023 Letter encounter Mammography Coordinator [facility] Start: 03-26-2023 End: 03-26-2023 ambulatory ALBERTINA ARNDT [facility] [employer] Other Start: 03-26-2023 Telephone encounter Albertina Arndt [facility] Start: 03-26-2023 End: 03-26-2023 Subsequent hospital visit by physician Screen/Diag Mammo [facility] 3 Work Phone: [facility] Mammography Comment on above: Z12.31 ENCOUNTER SCR EENING MAMMOGRAM FOR BREAST CANCER Start: 11-24-2022 Telephone encounter Albertina Arndt [facility] Start: 11-24-2022 End: 11-24-2022 ambulatory DO Albertina Arndt Work Phone: [facility] Work Phone: Start: 11-24-2022 End: 11-24-2022 Patient encounter procedure DO Albertina Arndt Work Phone: [facility] [place] Work Phone: Start: 11-17-2022 End: 11-17-2022 Patient encounter procedure Wendy Gold [facility] Start: 11-13-2022 End: 11-14-2022 Emergency department patient visit Blaire Myers [facility] Start: 10-29-2022 End: 10-29-2022 Patient encounter procedure Wendy Gold [facility] Start: 10-14-2022 End: 10-14-2022 Patient encounter procedure Wendy Gold [facility] Start: 08-19-2022 End: 08-19-2022 Patient encounter procedure Wendy Gold [facility] Start: 07-29-2022 Office outpatient vi sit 15 minutes Albertina Arndt Work Phone: [facility] 250 DO Work Phone: Start: 07-29-2022 ambulatory Albertina Arndt Facili ty: Start: 07-13-2022 End: 07-13-2022 Patient encounter procedure Wendy Gold [facility] Start: 07-06-2022 End: 07-06-2022 Patient encounter procedure Orestes JACQUES [facility] Start: 06-17-2022 End: 06-19-2022 Evaluation and management of inpatient Orestes JACQUES [facility] Start: 06-08-2022 End: 06-08-2022 Patient encounter procedure Wendy Gold [facility] Start: 04-02-2022 Rx Renewal Albertina Baldemar Arndt Work Phone: [facility] [employer] 250 DO Work Phone: Start: 02-02-2022 End: 02-02-2022 Patient encounter procedure Feroz Cotton [facility] Start: 01-28-2022 Documentation procedure Mammog elvia Coordinator [facility] Start: 01-28-2022 Letter encounter Mammography Coordinator [facility] Start: 01-28-2022 End: 01-28-2022 Subsequent hospital visit by physician Screen Mammo [facility] Mammography Start: 12-26-2021 Rx Renewal Albertina Baldemar Arndt Work Phone: [facility] [employer] 250 DO Work Phone: Start: 12-17-2021 End: 12-17-2021 ambulatory Albertina Arndt Other [facility] [employer] Other Start: 12-17-2021 Telephone encounter Albertina Arndt [facility] [place] Start: 12-10-2021 End: 12-10-2021 Patient encounter procedure Feroz Cotton [facility] Start: 11-26-2021 End: 11-26-2021 Patient encounter procedure Wendy Gold [facility] Start: 11-24-2021 End: 11-24-2021 Patient encounter procedure Feroz Cotton [facility] Start: 11-17-2021 End: 11-17-2021 Patient encounter procedure Wendy Gold [facility] Start: 10-15-2021 Telephone encounter Albertina talbert Work Phone: [facility] 250 DO Work Phone: Start: 10-07-2021 End: 10-08-2021 ambulatory WENDY GOLD . Facility:[facility] Start: 10-06-2021 End: 10-06-2021 ambulatory Albertina Arndt Other [facility] [employer] Other Start: 10-06-2021 Telephone encounter Albertina Arndt [facility] [place] Start: 09-19-2021 ambulatory Albertina Arndt Facili ty: Start: 09-08-2021 Rx Renewal Albertina Arndt Work Phone: [facility] 250 DO Work Phone: Start: 08-20-2021 End: 08-21-2021 ambulatory KANWAL THIBODEAUX Facility:[facility] Start: 08-08-[address] STERLING FLORIAN Fa cility:[facility] Start: 07-22-2021 EPV, Provider: Kanwal Shah, Status: Pen, Time: 12:30 PM Albertina Arndt Work Phone: [facility] 250 DO Work Phone: Start: 07-22-2021 Office outpatient vi sit 15 minutes Albertina R Hair Work Phone: [facility] [place] 600 DO Work Phone: Start: 07-21-2021 Chart Update Albertina Arndt Work Phone: [facility] 250 DO Work Phone: Start: 07-16-2021 NURSEVST, Provider: SILVIANO HOUSTON LOOM FIXER APPRENTICE 1,[id number], Status: Pen, Time: 1:30 PM Albertinamal Arndt Work Phone: [facility] 250 DO Work Phone: Start: 07-14-2021 Chart Update Albertinamal Arndt Work Phone: [facility] 250 DO Work Phone: Start: 07-10-2021 Office outpatient vi sit 25 minutes Albertina Mcdermott Hair Work Phone: [facility] 250 DO Work Phone: Start: 07-10-2021 Patient encounter procedure Albertinamal Arndt Work Phone: [facility] [place] 600 DO Work Phone: Start: 06-12-2021 Telephone encounter Albertina PELAYO [facility] [place] Start: 07-07-2017 Ambulatory PROVIDER UNKNOWN Facili ty:[id number] Start: 04-22-2017 Ambulatory KANWAL MANN Facility: [id number] Start: 01-01-2004 Evaluation and manag ement of inpatient DO Albertinamal Shermaneric Work Phone: [facility] Work Phone: Procedures Date Procedure Procedure [...] 10-27-2021 Cystoscopic removal of ureteric stent Wendy Godl Start: 10-22-2021 Coil embolization of portal-systemic shunt Feroz Cotton Comment on above: Splenic Artery Start: 10-22-2021 Fluoroscopic angiogr aphy of splenic artery Wendy Gold Comment on above: Coililng of Splenic artery aneurysm Start: 10-21-2021 Cystoscopic laser lithotripsy of ureteric calculus Wendy Lue Start: 10-21-2021 Cystoscopy Wendy Lue Comment on above: Homium Laser, left s tent replacement, cystoscopy,, ureteroscopy, stone basket extraction Start: 10-01-2021 Cystoscopy Wendy Danielse Start: 10-01-2021 Fluoroscopy guided retrograde cystogram and replacement of ureteric stent Wendy Gold Start: 08-14-2011 Colonoscopy Mammograph y Coordinator Appendectomy Albertina R [employer] Work Phone: Appendectomy Wendy Gold CABG Albertina R [employer] Work Phone: Cath Atherectomy 1 W ith Stent Placement Albertina R [employer] Work Phone: section Albertina R [employer] Work Phone: Comment on above: x2; section Wendy Gold Colonoscopy Albertina R [employer] Work Phone: Comment on above: [id number] C linic; Coronary artery bypa ss graft operation planned Wendy Luayse History of coronary artery bypass grafting S/P CABG x 4 Albertina R Kuns Work Phone: History of coronary artery bypass grafting S/P CABG x 4 Sterling Florian DO Work Phone: History of percutane ous transluminal coronary angioplasty History of PTCA Albertina R Kuns Work Phone: Lithotripsy Albertina R Kuns Work Phone: Screening for malign ant neoplasm of breast Albertina Hair Other Screening for malign ant neoplasm of breast Albertina Lanes Other Transurethral cystoscopy Joao JACQUES Comment on above: With left stent satish terrell, ureteroscopy, laser stone basket Plan of Treatment Date Care Activity Detail Author Start: 11-13-2032 DTaP/Tdap/Td Vaccines (2 - Td or Tdap) DTaP/Tdap/Td Vaccines (2 - Td or Tdap) [facility] Start: 04-07-2025 DIABETES SCREEN DIABETES SCREEN [facility] Start: 04-07-2025 Diabetes Screening Diabetes Screening [facility] Start: 03-26-[address] [facility] Start: 03-26-2024 Screening for malignant neoplasm of breast Mammogram [facility] Start: 07-28-2023 End: 07-28-2024 Alanine aminotransferase [Enzymatic activity/volume] in Serum or Plasma by With P-5'-P Alanine Aminotransferase Lab Routine Mixed hyperlipidemia Expected: 07/28/2023 (Approximate), Expires: 07/28/2024 [facility] Service Area Work Phone: Comment on above: Expected: 07/28/2023 (Approximate), Expi res: 07/28/2024 Start: 07-28-2023 End: 07-28-2024 Aspartate aminotransferase [Enzymatic activity/volume] in Serum or Plasma by With P-5'-P Aspartate Aminotransferase Lab Routine Mixed hyperlipidemia Expected: 07/28/2023 (Approximate), Expires: 07/28/2024 [facility] Work Phone: Comment on above: Expected: 07/28/2023 (Approximate), Expi res: 07/28/2024 Start: 07-28-2023 End: 07-28-2024 Lipid 1996 panel - Serum or Plasma Lipid Panel Lab Routine Mixed hyperlipidemia Expected: 07/28/2023 (Approximate), Expires: 07/28/2024 [facility] Work Phone: Comment on above: Expected: 07/28/2023 (Approximate), Expi res: 07/28/2024 Start: 07-28-2023 FUV, Provider: Sterling Florian, Status: Pen, Time: 10:40 AM FUV, Provider: Sterling Florian, Status: Pen, Time: 10:40 AM [facility] 250 DO Work Phone: Start: 04-30-2023 Covid-19 Vaccine ( season) Covid-19 Vaccine ( season) [facility] Start: 04-30-[address] [facility] Start: 01-28-[address] [facility] Start: 11-24-2022 Bacteria identified in Urine by Culture Urine Culture [facility] Start: 08-30-2022 ADVANCE DIRECTIVE DISCUSSION ADVANCE DIRECTIVE DISCUSSION [facility] Start: 08-30-2022 DEPRESSION ASSESSMENT DEPRESSION ASSESSMENT [facility] Start: 08-09-2022 Glaucoma screening Diabetes: Retinopathy Screening [facility] Start: 06-11-2022 Echocardiography Echocardiogram [facility] Start: 05-12-2022 FUV, Provider: Sterling Florian, Status: Pen, Time: 10:15 AM FUV, Provider: Sterling Florian, Status: Pen, Time: 10:15 AM [facility] 600 DO Work Phone: Start: 04-30-2022 Influenza vaccination INFLUENZA (Season Ended) [facility] Start: 01-23-2022 COVID-19 VACCINE (4 - Booster for Moderna series) COVID-19 VACCINE (4 - Booster for Moderna series) [facility] Start: 11-20-2021 COVID-19 VACCINE (4 - Moderna series) COVID-19 VACCINE (4 - Moderna series) [facility] Start: 08-30-2021 ADVANCE DIRECTIVE DISCUSSION ADVANCE DIRECTIVE DISCUSSION [facility] Start: 07-22-2021 EPV, Provider: Kanwal Shah, Status: Pen, Time: 12:30 PM EPV, Provider: Kanwal Shah, Status: Pen, Time: 12:30 PM [facility] Work Phone: Start: 07-16-2021 NURSEVST, Provider: SILVIANO HOUSTON LOOM FIXER APPRENTICE 1,[id number], Status: Pen, Time: 1:30 PM NURSEVST, Provider: SILVIANO HOUSTON LO[employer] FIXER APPRENTICE 1,[id number], Status: Pen, Time: 1:30 PM [facility] [place] 600 DO Work Phone: Start: 07-02-2021 Pneumococcal Vaccine: 65+ Years (2 - PPSV23 or PCV20) Pneumococcal Vaccine: 65+ Years (2 - PPSV23 or PCV20) [facility] Start: 02-12-[address] D[address] [facility] Start: 02-12-2016 Bone Density Screening Bone Density Screening [facility] Start: 02-12-2016 Pneumococcal Vaccine: 65+ (1 - PCV) Pneumococcal Vaccine: 65+ (1 - PCV) [facility] Start: 02-12-2016 PNEUMOCOCCAL: 65+ (1 - PCV) PNEUMOCOCCAL: 65+ (1 - PCV) [facility] Start: 08-14-[address] [facility] Start: 08-14-2012 COLORECTAL CANCER SCREENING COLORECTAL CANCER SCREENING [facility] Start: 12-14-2002 DIABETES SCREEN DIABETES SCREEN [facility] Start: 2001 SHINGRIX VACCINE (1 of 2) SHINGRIX VACCINE (1 of 2) [facility] Start: 2001 Zoster Vaccines (1 of 2) Zoster Vaccines (1 of 2) [facility] Start: 02-12-1996 COLOGUARD (FIT-DNA) COLOGUARD (FIT-DNA) [facility] Start: 02-12-[address] [facility] Start: 02-12-1996 FECAL OCCULT BLOOD FECAL OCCULT BLOOD [facility] Start: 02-12-1996 Lipid 1996 panel - Serum or Plasma Lipid Screening [facility] Start: 02-12-1996 [address]EN LIPID SCREEN [facility] Start: 02-12-[address] [facility] Start: [address] [facility] Start: 1970 Urine screening for protein Diabetes: Urine Protein Screening [facility] Start: 1969 HEPATITIS C SCREENING HEPATITIS C SCREENING [facility] Start: 1969 Hepatitis C screening Hepatitis C Screening [facility] Start: 1963 Adult depression screening assessment DEPRESSION SCREENING [facility] Start: 1961 Diabetic foot examination Diabetes: Foot Exam [facility] Start: 1951 Creatinine measurement Creatinine Level [facility] Start: 1951 Hemoglobin A1c measurement Diabetes: Hemoglobin A1C [facility] Start: 1951 Lipid panel Lipid Panel [facility] Start: 1951 Medicare Annual Wellness Visit Medicare Annual Wellness Visit (AWV) [facility] Start: 1951 Potassium measurement Potassium Level [facility] Start: 1951 Screening for malignant neoplasm of colon [facility] Start: 1951 Screening for osteoporosis Bone Density Scan [facility] Start: 1951 Thyroid stimulating hormone measurement TSH Level [facility] Immunizations Immunization Date Immunization Notes Care Provider Fa cility 11-13-2022 tetanus toxoid, redu lakshmi diphtheria toxoid, and acellular pertussis vaccine, adsorbed Kaylinn Doyoditen [facility] Comment on above: Result Comment: LEFT DELTOID 09-25-2021 SARS-CoV-2 (COVID-19 ) mRNA-1273 vaccine Wendy Gold [facility] 05-07-2021 pneumococcal conjuga te vaccine, 13 valent Albertina Kuns Other [facility] 11-28-2020 COVID-19 Moderna Albertina Kuns Other [facility] Comment on above: Result Comment: 2021: [id number] 10-31-2020 COVID-19 Moderna Albertina Kuns Other [facility] Comment on above: Result Comment: 2021: [id number] 12-05-2018 zoster vaccine recombinant Albertina Kuns Other [facility] 12-05-2018 zoster vaccine, unspecified formulation Sterling Florian DO Work Phone: [facility] Work Phone: 08-08-2018 zoster vaccine recombinant Albertina Arndt Other [facility] 08-08-2018 zoster vaccine, unspecified formulation Sterling Florian DO Work Phone: [facility] Work Phone: 08-30-2003 influenza virus vaccine, unspecified formulation Albertina Arndt Work Phone: [facility] 250 DO Work Phone: Payers Date Payer Category Payer Unknown 2019 Unknown MMO MMO MEDICARE SUPPLEMENT [id number] 2019-Present [phone] [address] [place] [address] Indemnity [id number] 2016 Medicare MEDICARE RAILROA D MEDICARE RAILROAD PB ONLY [id number] 2016-Present [phone] [address] [address] [place] [address] Medicare [id number] 2016 Medicare [id number] 1959 Medicare [id number] 1959 Self-pay 1959 Unknown [id number] 1951 Unknown [id number] 1951 Unknown [id number] 1951 Unknown [id number] 1951 Unknown [id number] [id number] 1951 Unknown [id number] [id number] 1951 Unknown [id number] 2.16.840.1.715868.3.579.2.72 1951 Unknown [id number] [id number] 1951 Unknown [id number] 2.16.840.1.030520.3.579.2. 1951 Unknown [id number] [id number] 1951 Unknown [id number] 2.16.840.1.553101.3.579.2. 1951 Unknown [id number] 2.16.840.1.916637.3.579.2. 1951 Unknown [id number] 2.16.840.1.199916.3.579.2 1951 Unknown [id number] [id number] 1951 Unknown [id number] 2.16.840.1.519631.3.579.2 1950 Unknown [id number] 2.16.840.1.337392.3.579.2.72 1950 Unknown [id number] 2.16.840.1.107318.3.579.2 1950 Unknown [id number] 2.16.840.1.805534.3.579.2.72 1950 Unknown [id number] 2.16.840.1.362235.3.579.2727 1950 Unknown [id number] 2.16.840.1.287011.3.579.2.727 1950 Unknown [id number] 2.16.840.1.591532.3.579.2.727 1950 Unknown [id number] 2.16.840.1.203995.3.579.2.727 1950 Unknown [id number] 2.16.840.1.301508.3.579.2.727 1950 Unknown [id number] 2.16.840.1.372215.3.579.2.727 1950 Unknown [id number] 2.16.840.1.321811.3.579.2.727 1950 Unknown [id number] 2.16.840.1.841053.3.579.2.727 1950 Unknown [id number] 2.16.840.1.536503.3.579.2.1259 1950 Unknown [id number] 2.16.840.1.724870.3.579.2.1244 Medicare [id number] Unknown [id number] 2.16.840.1.242451.3.579.2.593 Unknown [facility] [id number] Unknown [id number] 2.16.840.1.392864.3.579.2.531 Unknown [id number] 2.16.840.1.571835.3.579.2.531 Social History Date Type Detail Facility Start: 10-06-2021 End: 07-27-2023 No illicit drug use No illicit drug use [facility] 600 DO Work Phone: [facility] Comment on above: Denies use. Start: 10-06-2021 End: 07-27-2023 Sex Assigned At Female [facility] Carito cabreraufindads Other Start: 11-26-2021 End: 05-09-2023 Tobacco smoking status Never smoked tobacco (finding) [facility] Comment on above: Denies use. Tobacco smoking status Never [facility] Comment on above: Denies use. 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 intake Current non-dr interventional nurse of alcohol (finding) [facility] Start: 1950 Sex Assigned At Not on file [facility] Start: 1950 Sex Assigned At Female F [facility] Start: 03-27-2016 End: 07-27-2023 Tobacco use and exposure Smokeless tobacco non-user [facility] Start: 07-28-2023 Alcohol intake Lifetime non-d gisele (finding) [facility] Work Phone: Start: 07-18-2023 End: 07-28-2023 Exposure to SARS-CoV-2 (event) Not sure [facility] Medical Equipment Procedure Code Equipment Code Equipment Origin al Text Equipment Identifier Dates FDA Start: 10-01-2021 {01}[id number]{1 7}[id number]{10}[id number] FDA Start: 10-21-2021 FDA Start: 10-01-2021 FDA [...] 06/17/22 Unknown Ureter R FDA Start: 06-17-2022 {01}[id number]{1 7}[id number]{10}[id number] FDA Start: 05-09-2023 End: 05-27-2023 CYSTOSCOPY RETROGRADE [...] Assessment Result Facility 02-19-2024 Functional Status N/A [facility] 02-19-2024 Functional Status [facility] 07-29-2023 Functional Status No [facility] 05-27-2023 Functional Status No [facility] 05-26-2023 Functional Status [facility] 05-25-2023 Functional Status N/A [facility] 05-09-2023 Functional Status N/A [facility] 05-09-2023 Functional Status [facility] 11-13-2022 Functional Status N/A [facility] 10-29-2022 Functional Status N/A [facility] 07-13-2022 Functional Status N/A [facility] 07-02-2022 Functional Status N/A [facility] 06-17-2022 Functional Status No [facility] 06-17-2022 Functional Status [facility] Clinical Notes 12-28-2009 to 02-27-2024 Note Date & Type Note Facility 02-27-2024 Note Microbiology PROCEDURE: Blood Culture Charcoal [R1] SOURCE: Blood BODY SITE: Arm R COLLECTED DATE/TIME: 02/19/2024 13:46 EDT RECEIVED DATE/TIME: 02/19/2024 20:06 EDT START DATE/TIME: 02/19/2024 20:06 EDT FREE TEXT SOURCE: MARNIE Corona PA-C, Luis Corona PA-C, Luis Otto FINAL REPORTS Final Report [] Verified Date/Time: 02/26/2024 21:00 EDT No growth at 7 days. Performing Locations R1: This [facility] was performed at: [facility], [address] [place] [address], [phone] [place] [address] Comment on above: Performed By: #### 1 [id number] #### [facility] [address] [place] [address] 02-27-2024 Note Microbiology PROCEDURE: Blood Culture Charcoal [R1] SOURCE: Blood BODY SITE: Arm L COLLECTED DATE/TIME: 02/19/2024 14:16 EDT RECEIVED DATE/TIME: 02/19/2024 20:06 EDT START DATE/TIME: 02/19/2024 20:06 EDT FREE TEXT SOURCE: IV Luis Zuluaga PA-C, PA-C, Luis Otto FINAL REPORTS Final Report [] Verified Date/Time: 02/26/2024 21:00 EDT No growth at 7 days. Performing Locations R1: This test was performed at: [facility], [address] [place] [address], [facility] Comment on above: Performed By: #### 1 [id number] #### [facility] [address] [place] [address]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 (ICD-10 - Z12.31) [facility] Other 07-28-2023 History of Present illness Narrative* [...] 26, 2023 1:50 PM documented in this encounterSt. Charles Hospital03-28-2023 Evaluation note* Encounter Date Diagnosis Assessment Notes Treatment Notes Treatment Clinical Notes Oct, Urinary tract infection, site not specified (ICD-10 - N39.0) Oct, Hematuria, unspecified (ICD-10 - R31.9) [facility] Other 03-18-2023 Evaluation + Plan noteExtracted from: Title:ED Note Author:Blaire Myers DO Danuta Date :11/14/22 Acute UTI (N39.0: Urinary tr [...] day(s), # 15 cap(s), Refills(s) 0, Pharmacy: [facility], 157, cm, 11/13/22 23:40:00 EDT, Height/Length Dosing, 83.2, kg, 11/13/22 23:40:00 EDT, Weight Dosing cephalexin, 500 mg = 1 cap(s), Cap, Oral, Once, Stop date 11/14/22 2:04:00 EDT, STAT, Start date 11/14/22 2:04:00 EDT, 11/14/22 2:04:00 EDT meclizine, 12.5 mg = 1 tab(s), Oral, TID, PRN for dizziness, # 15 tab(s), Refills(s) 0, Pharmacy: [facility], 157, cm, 11/13/22 23:40:00 EDT, Height/Length Dosing, 83.2, kg, 11/13/22 23:40:00 EDT, Weight Dosing meclizine, 25 mg = 2 tab(s), Tab, Oral, Once, Stop date 11/13/22 23:34:00 EDT, STAT, Start date 11/13/22 23:34:00 EDT, 11/13/22 23:34:00 EDT Sodium Chloride 0.9% intravenous solution, Soln-IV, Misc, Once, Stop date 03/17/23 23:42:33 EDT, Physician Stop, 11/13/22 23:42:33 EDT [...] Appointments Appointment Date:11/17/2022 10:00:00 AM Scheduled Provider: [facility] Appoint[facility] Type:US Abdominal/Pelvis () Appointment Date:02/08/2023 12:30:00 PM Scheduled Provider:Asif CHISHOLM, Wendy Bay Location:[facility] Appointment Type:URO Office Visit Diagnostic Tests Pending * Urine Culture 11/14/22 Future Scheduled Tests Laboratory* PTH Intact 11/28/22 * Basic Metabolic Panel 06/26/22 * Basic Metabolic Panel 11/28/22 * Uric Acid 11/28/22 Radiology* XR Abdomen 1 View 11/17/21 * XR Abdomen 1 View 12/12/22 * US Renal 11/17/22 * CTA Abdomen 01/24/24 [facility]03-18-2023 Hospital Discharge instructions Patient Education 11/14/2022 02:43:38 Vertigo, Hivx-ib-Aijs Vertigo Vertigo is the feeling that you [...] if you feel dizzy. General instructions Take hqke-wzi-gdosoth and prescription medicines only as told by [...] 05/25/2009 Document Revised: 07/10/2019 Document Reviewed: 07/10/2019 [email or web address] Patient Education 2020 [employer]m. 11/14/2022 02:43:38 Urinary Tract Infection, Adult, Lpug-uf-Abkb Urinary Tract Infection, Adult A urinary tract [...] Follow these instructions at home: Medicines Take mjss-qay-ycvmhmc and prescription medicines only as told by [...] 02/01/2009 Document Revised: 08/03/2019 Document Reviewed: 02/23/2019 [email or web address] Patient Education 2020 [employer]. 11/14/2022 02:43:38 Head Injury, Adult, Jone-mt-Dljy Head Injury, Adult There are many types [...] or school. Ask your doctor for a dwoe-kl-rowr plan for slowly going back to your [...] your friends, family, a trusted coworker, and telephone sex worker about your injury, symptoms, and limits (restrictions). Have them watch for any problems that are new or getting worse. General instructions Take xzkg-phd-fbimgfi and prescription medicines only as told by [...] 07/29/2009 Document Revised: 12/07/2019 Document Reviewed: 09/08/2019 [email or web address] Patient Education 2020 [email or web address] Inc. 11/14/2022 02:43:38 Dehydration, Elderly, Eqch-au-Rqhr Dehydration Dehydration is when there is not [...] a lot of fat or sugar. Take xfrc-nrr-eprlboq and prescription medicines only as told by [...] 08/04/2012 Document Revised: 07/29/2018 Document Reviewed: 10/09/2016 [email or web address] Patient Education 2020 [employer]m. Follow Up Care 11/13/2022 23:08:03 With:ALBERTINA ARNDT Address: [address] [place], [place] [phone] Business (1) When:11/17/2022 Comments:Take the antibiotics 3 [...] ED for any new or worsening symptoms. [facility]03-02-2023 Hospital Discharge instructions Patient Education 10/29/2022 09:23:21 Kidney Stones, Kptx-vp-Npnr Kidney Stones Kidney stones are rock-like masses [...] Follow these instructions at home: Medicines Take ynim-nmk-wedxhrb and prescription medicines only as told by [...] 02/01/2009 Document Revised: 01/02/2020 Document Reviewed: 01/02/2020 [email or web address] Patient Education 2019 [employer]m. Follow Up Care 10/13/2022 15:07:33 With:Asif CHISHOLM, ONUR Julio, URO Address: When: Unknown [facility] 12-21-2022 Hospital Discharge instructions Patient Education 08/19/2022 12:09:01 Kidney Stones, Xvaa-ha-Zdbd Kidney Stones Kidney stones are rock-like masses [...] Follow these instructions at home: Medicines Take rcmj-snn-vkcvhpe and prescription medicines only as told by [...] 02/01/2009 Document Revised: 01/02/2020 Document Reviewed: 01/02/2020 [email or web address] Patient Education 2020 [employer]. Follow Up Care 07/13/2022 14:03:46 With:Asif CHISHOLM, ONUR Julio, URO Address: [address], [place] [phone] When:Within 2 Month(s) [facility] 11-14-2022 Hospital Discharge instructions Patient Education 07/13/2022 [...] include: ?Spinach. ?Rhubarb. ?Beets. ?Potato chips and [place] citizen fries. ?Nuts. If you regularly take a diuretic medicine, make sure to eat at least 1 2 fruits or vegetables high in potassium each day. These include: ?Avocado. ?Banana. ?Hays, prune, carrot, or tomato juice. ?Baked potato. [...] Casseroles. Pizza. Lasagna. Frozen meals. Potato chips. Samoan fries. Summary You can reduce your risk [...] 12/11/2011 Document Revised: 12/06/2019 Document Reviewed: 07/27/2017 [email or web address] Patient Education 2020 [employer]. Follow Up Care 11/26/2021 11:40:44 With:Asif CHISHOLM, ONUR Julio, URO Address: When: Unknown [facility] 11-07-2022 Hospital Discharge instructions Patient [...] already done so. Have a great day. [facility]10-21-2022 Evaluation + Plan noteExtracted from: Title:Discharge [...] Daily With When Contact Information Orestes JACQUES [facility] [address] [place] [phone]- Business (1) Additional Instructions: scope and removal of the stent under local anesthesia within a couple weeks or so.This office will call you to schedule this. ALBERTINA ARNDT [address] [place] [phone]- Business (1) Additional Instructions: Only if needed. Renal Colic, Coeb-vy-Zesa Lithotripsy Laser Therapy for Kidney Stones Kidney Stones, Ehth-he-Zcyq Dietary Guidelines to Help Prevent Kidney Stones Discharge time >30 min Extracted from: Title:ANES POSTOP Author:Johnny Bruce DO Date: 06/17/22 Plan Transfer/ Discharge: Patient can be discharged from PACU when criteria met. Condition good. Extracted from: Title:Urology Consult and H&P 2 Author:Orestes JACQUES MD Date:06/17/22 Impression and Plan Diagnosis Acute renal failure (GVJ84-MD N17.9, Discharge, Medical). Hydronephrosis with ureteral calculus (GZV10-ID N13.2, Working, Medical). Kidney stones (WLP35-MV N20.0, Working, Medical). Complaint of Flank pain (PNED [id number], Reason For Visit, Nursing). Leukocytosis (RDQ97-PX D72.829, Discharge, Medical). UTI (urinary tract infection) (DXE19-TD N39.0, Discharge, Medical). Course: Worsening, Reviewed CT [...] Title:ANES PREOP Author:Johnny Bruce DO Date: Plan [place] Society of Anesthesiologists (ASA) physical status classification: [...] artery disease) (I25.10: Atherosclerotic heart disease of nenana coronary artery without angina pectoris) Continue Plavix Lopressor 9. Obesity (E66.9: Obesity, unspecified) Lifestyle modification 10. DVT prophylaxis (Z29.9: Encounter for prophylactic measures, unspecified) SCD Future Appointments Appointment Date:07/13/2022 01:00:00 PM Scheduled Provider:Wendy Gold MD Location:[facility] Appointment Type:URO Office Visit Diagnostic Tests Pending * Calculi Analysis Urinary 06/17/22 Future Scheduled Tests Laboratory* Basic Metabolic Panel 06/26/22 Radiology* XR Abdomen 1 View 11/17/21 * CV Peripheralvascular 10/14/21 * CTA Abdomen 01/24/24 [facility]10-21-2022 Hospital Discharge instructions Patient Education 06/19/2022 10:34:29 Renal Colic, Pbda-ak-Qxwc Renal Colic Renal colic is pain that is caused by a kidney stone. The pain can be sharp and very bad. It may befelt in the back, belly, side (flank), or groin. It can cause nausea. Renal colic can come and go. Follow these instructions at home: Medicines Take kdam-plu-jgtooke and prescription medicines only as told by [...] is caused by a kidney stone. Take uxzn-acf-btloxdz and prescription medicines only as told by [...] 02/01/2009 Document Revised: 09/13/2018 Document Reviewed: 09/13/2018 [email or web address] Patient Education 2020 [employer]m. 06/19/2022 10:34:28 Lithotripsy Lithotripsy Lithotripsy is a [...] including vitamins, herbs, eye drops, creams, and nmbv-mia-bdppynz medicines. Any blood disorders you have. Any [...] 08/13/2001 Document Revised: 11/27/2019 Document Reviewed: 07/07/2017 [email or web address] Patient Education 2020 [employer]. 06/19/2022 10:34:26 Laser Therapy for Kidney Stones [...] including vitamins, herbs, eye drops, creams, and remx-bkc-jnfncos medicines. Any problems you or family members [...] provider tells you to take them. ?Taking muzb-qrq-esporau medicines, vitamins, herbs, and supplements. Eating and [...] 09/11/2016 Document Revised: 04/27/2019 Document Reviewed: 04/27/2019 [email or web address] Patient Education 2020 [email or web address] Inc. 06/19/2022 10:34:24 Kidney Stones, Hztx-hr-Aweu Kidney Stones Kidney stones are rock-like masses [...] Follow these instructions at home: Medicines Take juio-poa-ownhlvu and prescription medicines only as told by [...] 02/01/2009 Document Revised: 01/02/2020 Document Reviewed: 01/02/2020 [email or web address] Patient Education 2020 [employer]. 06/19/2022 10:34:21 Dietary Guidelines to Help Prevent [...] include: ?Spinach. ?Rhubarb. ?Beets. ?Potato chips and [place] citizen fries. ?Nuts. If you regularly take a diuretic medicine, make sure to eat at least 1 2 fruits or vegetables high in potassium each day. These include: ?Avocado. ?Banana. ?Hays, prune, carrot, or tomato juice. ?Baked potato. [...] Casseroles. Pizza. Lasagna. Frozen meals. Potato chips. Samoan fries. Summary You can reduce your risk [...] 12/11/2011 Document Revised: 12/06/2019 Document Reviewed: 07/27/2017 [email or web address] Patient Education 2020 [employer]. Follow Up Care 06/17/2022 13:29:38 With:Orestes JACQUES Address: [address] [place] [phone]- Business (1) When: Unknown Comments:scope and removal of the stent under local anesthesia within a couple weeks or so.This office will call you to schedule this. With:ALBERTINA ARNDT Address: [address] [place] [phone]- Business (1) When: Unknown Comments:Only if needed. [facility]06-01-2022 Miscellaneous Notes* Letter - Mammography Coordinator - 01/28/2022 2:40 PM EDT January 28, 2022 PID: [id number] hSahana Grace [address] [place] [phone] Dear Ms. Grace, We are pleased to [...] report will be kept on file at [facility] as part of your permanent medical record and are available for your continuing care. Thank you for allowing us to help in meeting your health care needs. Sincerely, Dr. Green Interpreting Radiologist [facility] (Normal over 40) documented in this encounterSt. [facility]06-01-2022 NoteHNO ID: [id number] Author: RT Gavino(R) Service: ? Author Type: [...] 28, 2022 12:51 PM documented in this encounterSt. [facility]04-20-2022 Evaluation note* Encounter Date Diagnosis Assessment Notes Treatment Notes Treatment Clinical Notes Nov, Encounter for screening mammogram for malignant neoplasm of breast (ICD-10 - Z12.31) [facility] Other 03-30-2022 Hospital Discharge instructions Patient Education 11/26/2021 11:36:58 Kidney Stones, Szsi-hr-Lowk Kidney Stones Kidney stones are rock-like masses [...] Follow these instructions at home: Medicines Take nkhj-idw-oedkygn and prescription medicines only as told by [...] 02/01/2009 Document Revised: 01/02/2020 Document Reviewed: 01/02/2020 [email or web address] Patient Education 2020 [employer]. Follow Up Care 10/27/2021 10:22:19 With:Asif CHISHOLM, Wendy Bay, SKYL, URO Address: [address], [place] [phone] Business (1) When: Unknown [facility] 02-07-2022 NoteHNO ID: [id number] Author: Garcia Vieyra OD Service: ? Author Type: CUTTER OPERATOR ASBESTOS SHINGLE Type: Progress Notes Filed: 10/06/2021 10:56 AM [...] vision, light sensitivity, or contact lens intolerance develops.[facility] 08-09-2021 NoteHNO ID: [id number] Author: Johnny Crespo MD Service: ? Author Type: Physician Type: Progress Notes Filed: 08/09/2021 12:02 PM Note Text: H25.13 Nuclear senile cataract of both eyes (primary encounter diagnosis) Comment: not visually significant OU E11.9 Controlled type 2 diabetes mellitus without complication, without long-term current use of insulin ([facility]) Comment: no Retinopathy Tight control - Stressed blood sugar and blood pressure control and close follow-up with PCP/pier hand helper. - Advised of importance in blood sugar and blood pressure control in reducing risk of vision loss. - Advised of importance of annual eye exams with sooner follow-up if any new symptoms develop. Return in 1 year Manifest refraction; see highway commissioner for CLs I have confirmed and edited [...] Medical History 2008 pelvic exam done - [facility] Medical History 2009 mammogram done - [facility] Medical History 2002 colonscopy - [facility] Medical History No stress test Medical History Hgb A1c 5-1-10 (6.3) Medical History Coronary artery disease Medical History myocardial infarction Medical History CHF (05/2021) Medical History Hypertensive urgency (05/2021) Surgical History C-Sections x 2 Surgical History appendectomy Surgical History Median sternotomy 05/24/17 Surgical History Coronary bypass grafting x 4 Hospitalization History as above Hospitalization History [facility]; Hypert ensive urgency 05/2021 [facility] Other Evaluation + Plan note Future Appointments Appointment Date:11/24/2021 09:00:00 AM Scheduled Provider:Feroz Cotton MD [facility] Appointment Type:Vascular Follow Up (FT) Appointment Date:11/26/2021 09:45:00 AM Scheduled Provider:Wendy Gold MD Location:[facility] Appointment Type:URO Office Visit Future Scheduled Tests Radiology* XR Abdomen 1 View 11/17/21 * CV Peripheralvascular 10/14/21 [facility] Future Appointments Appointment Date:11/26/2021 09:45:00 AM Scheduled Provider:Wendy Gold MD Location:[facility] Appointment Type:URO Office Visit Future Scheduled Tests Radiology* XR Abdomen 1 View 11/17/21 * CV Peripheralvascular 10/14/21 [facility] note Future Appointments Appointment Date:06/01/2022 02:00:00 PM Scheduled Provider:Wendy Gold MD Location:[facility] Appointment Type:URO Office Visit Future Scheduled Tests Radiology* XR Abdomen 1 View 11/17/21 * XR Abdomen 1 View 05/29/22 * US Renal 05/29/22 * CV Peripheralvascular 10/14/21 [facility] evaluation + Plan note Future Appointments Appointment Date:01/12/2022 11:30:00 AM Scheduled Provider:Feroz Cotton MD [facility] Type:Vascular Follow Up (FT) Appointment Date:06/01/2022 02:00:00 PM Scheduled Provider:Wendy Gold MD Location:[facility] Appointment Type:URO Office Visit Future Scheduled Tests Radiology* XR Abdomen 1 View 11/17/21 * XR Abdomen 1 View 05/29/22 * US Renal 05/29/22 * CV Peripheralvascular 10/14/21 [facility] Future Appointments Appointment Date:07/13/2022 01:00:00 PM Scheduled Provider:Wendy Gold MD Location:[facility] Appointment Type:URO Office Visit Future Scheduled Tests Radiology* XR Abdomen 1 View 11/17/21 * CV Peripheralvascular 10/14/21 * CTA Abdomen 01/24/24 [facility] note Future Appointments Appointment Date:07/13/2022 01:00:00 PM Scheduled Provider:Wendy Gold MD Location:[facility] Appointment Type:URO Office Visit Future Scheduled Tests Laboratory* Basic Metabolic Panel 06/26/22 Radiology* XR Abdomen 1 View 11/17/21 * CV Peripheralvascular 10/14/21 * CTA Abdomen 01/24/24 [facility] note Future Appointments Appointment Date:08/19/2022 10:45:00 AM Scheduled Provider:Wendy Gold MD Location:[facility] Appointment Type:URO Office Visit Future Scheduled Tests Laboratory* Basic Metabolic Panel 06/26/22 Radiology* XR Abdomen 1 View 11/17/21 * CV Peripheralvascular 10/14/21 * CTA Abdomen 01/24/24 [facility] Evaluation + Plan note Future Appointments Appointment Date:10/14/2022 10:45:00 AM Scheduled Provider:Wendy Gold MD Location:[facility] Appointment Type:URO Office Visit Future Scheduled Tests Laboratory* Basic Metabolic Panel 06/26/22 Radiology* XR Abdomen 1 View 11/17/21 * CV Peripheralvascular 10/14/21 * CTA Abdomen 01/24/24 [facility] evaluation + Plan note Future Appointments Appointment Date:10/29/2022 09:00:00 AM Scheduled Provider:Wendy Gold MD Location:[facility] Appointment Type:URO Office Visit Future Scheduled Tests Laboratory* Basic Metabolic Panel 06/26/22 Radiology* XR Abdomen 1 View 11/17/21 * CTA Abdomen 01/24/24 [facility] evaluation + Plan note Future Appointments Appointment Date:02/08/2023 12:30:00 PM Scheduled Provider:Wendy Gold MD Location:[facility] Appointment Type:URO Office Visit Future Scheduled Tests Laboratory* PTH Intact 11/28/22 * Basic Metabolic Panel 06/26/22 * Basic Metabolic Panel 11/28/22 * Uric Acid 11/28/22 Radiology* XR Abdomen 1 View 11/17/21 * XR Abdomen 1 View 12/12/22 * US Renal 12/12/22 * CTA Abdomen 01/24/24 [facility] Evaluation + Plan note Future Appointments Appointment Date:02/08/2023 12:30:00 PM Scheduled Provider:Wendy Gold MD Location:[facility] Appointment Type:URO Office Visit Future Scheduled Tests Laboratory* PTH Intact 11/28/22 * Basic Metabolic Panel 06/26/22 * Basic Metabolic Panel 11/28/22 * Uric Acid 11/28/22 Radiology* XR Abdomen 1 View 11/17/21 * XR Abdomen 1 View 12/12/22 * [facility] App[facility]ments Appointment Date:05/19/2023 09:00:00 AM Scheduled Provider: Location:[facility] Appointment Type:Urology CALL PAT FT Appointment Date:05/25/2023 08:45:00 AM Scheduled Provider: Location:[facility] Appointment Type:Urology FT Future Scheduled Tests Laboratory* Basic Metabolic Panel 06/26/22 Radiology* CTA Abdomen 01/24/24 [facility] evaluation + Plan note Future Appointments Appointment Date:08/19/2023 01:15:00 PM Scheduled Provider:Wendy Gold MD Location:[facility] Appointment Type:URO Office Visit Future Scheduled Tests Laboratory* Basic Metabolic Panel 06/26/22 Radiology* CTA Abdomen 01/24/24 [facility] Future Appointments Appointment Date:08/19/2023 01:15:00 PM Scheduled Provider:Wendy Gold MD Location:[facility] Appointment Type:URO Office Visit Future Scheduled Tests Laboratory* Basic Metabolic Panel 06/26/22 Radiology* XR Abdomen 1 View 05/28/23 * CTA Abdomen 01/24/24 [facility] Future Appointments Appointment Date:08/19/2023 01:15:00 PM Scheduled Provider:Wendy Gold MD Location:[facility] Appointment Type:URO Office Visit Future Scheduled Tests Laboratory* PT & PTT 06/15/23 * BUN 06/15/23 * Creatinine 06/15/23 * Electrolyte Panel 06/15/23 * CBC w/ Auto Diff 06/15/23 Radiology* XR Abdomen 1 View 05/28/23 * CTA Abdomen 01/24/24 [facility] Future Appointments Appointment Date:08/19/2023 01:15:00 PM Scheduled Provider:Wendy Gold MD Location:[facility] Appointment Type:URO Office Visit Future Scheduled Tests Radiology* CTA Abdomen 01/24/24 [facility] Future Appointments Appointment Date:08/19/2023 01:15:00 PM Scheduled Provider:Wendy Gold MD Location:[facility] Appointment Type:URO Office Visit Diagnostic Tests Pending * Calculi Analysis Urinary 08/05/23 Future Scheduled Tests Radiology* CTA Abdomen 01/24/24 [facility] noteNo InformationNort Leinentausch Other Evaluation noteNo assessment information available [facility] Work Phone: Evaluation note* Diagnosis Atherosclerosis of coronary artery bypass graft of n[place] heart without angina pectoris S/P CABG x 4 Postsurgical aortocoronary bypass status Type 2 diabetes mellitus with other specified complication, with long-term current use of insulin ([facility]) Mixed hyperlipidemia Primary hypertension Unspecified essential hypertension History of VT (myocardial infarction) Old myocardial infarction documented in this encounter [facility] Work Phone: History of Present illness [...] patient is adherent with her medication regimen. [facility] 600 DO Work Phone: History of Present [...] patient is adherent with her medication regimen. [facility] 600 DO Work Phone: History of Present [...] patient is adherent with her medication regimen. [facility] 250 DO Work Phone: History of Present illness Narrative* The patient states she has been generally doing well since the last visit. Comorbid Illnesses: diabetes mellitus, hypertension and hyperlipidemia. * Symptoms: denies chest pain at rest, denies exertional chest pain, denies dyspnea, improved fatigue, improved exercise intolerance, denies palpitations, denies edema, denies orthopnea, improved dizziness and improved orthostatic dizziness. * Disease Monitoring: [facility] 600 DO Work Phone: Hospital course Narrative No data available for this section [facility] Dis[facility] No data available for this section [facility] No data available for this section [facility] HospitalReason for referral (narrative)* Consultation (Routine) - Authorized Specialty Diagnoses / Procedures Referred By Contac t Referred To Contact Cardiac Rehabilitation Diagnoses Atherosclerosis of coronary artery bypass graft of nenana heart without angina pectoris S/P CABG x 4 History of VT (myocardial infarction) Sterling Florian, DO [address] [facility] [address] [place] [address] Referral ID Status Reason Start Date Expiration Date Visits Requested Visits Authorized [id number] Authorized Specialty Services Required 07/27/2024 1 1 * Consultation (Routine) - Authorized Specialty Diagnoses / Procedures Referred By Contac t Referred To Contact Cardiology Diagnoses Atherosclerosis of coronary artery bypass graft of nenana heart without angina pectoris S/P CABG x 4 Procedures Follow Up In Cardiology Sterling Florian DO [address] [facility] [address] [place] [address] Sterling Florian DO [address] [facility] [address] [place] [address] Referral ID Status Reason Start Date Expiration Date V isits Requested Visits Authorized [id number] Authorized 07/28/2023 07/27/2024 1 1 [facility] Work Phone: Summary Purpose Family History [...] Presents today with . * Hospitalized at [facility] due to volume overload, Echo LVEF 55-60%. [...] Presents today with . * Hospitalized at [facility] due to volume overload, Echo LVEF 55-60%. [...] Presents today with . * Hospitalized at [facility] due to volume overload, Echo LVEF 55-60%. [...] of volume depletion. * Patient presents to [facility] for cardiovascular evaluation. * Patient is [...] or hospitalizations. * She suffered an inferior VT in 2016 with primary revascularization of the [...] section and content) DATE CREATED AUTHOR 02/22/2018 [facility] DATE CREATED AUTHOR AUTHOR'S ORGANIZ ATION 10/14/2021 [facility] DATE CREATED AUTHOR AUTHOR'S ORGANIZ ATION 01/30/2022 [facility] DATE CREATED AUTHOR AUTHOR'S ORGANIZ ATION 07/29/2022 [facility] DATE CREATED AUTHOR AUTHOR'S ORGANIZ ATION 07/30/2022 [facility] DATE CREATED AUTHOR AUTHOR'S ORGANIZ ATION 03/31/2023 [facility] DATE CREATED AUTHOR AUTHOR'S ORGANIZ ATION 10/08/2023 [facility] DATE CREATED AUTHOR AUTHOR'S ORGANIZ ATION 02/20/2024 [facility] DATE CREATED AUTHOR AUTHOR'S ORGANIZ ATION 02/21/2024 [facility] DATE CREATED AUTHOR AUTHOR'S ORGANIZ ATION 02/22/2024 [facility] DATE CREATED AUTHOR AUTHOR'S ORGANIZ ATION 02/23/2024 [facility] DATE CREATED AUTHOR AUTHOR'S ORGANIZ ATION 02/24/2024 [facility] DATE CREATED AUTHOR AUTHOR'S ORGANIZ ATION 02/26/2024 [facility] DATE CREATED AUTHOR AUTHOR'S ORGANIZ ATION 02/27/2024 [facility] EPIC DATE CREATED AUTHOR AUTHOR'S ORGANIZ ATION 02/28/2024 [facility] DATE CREATED AUTHOR AUTHOR'S ORGANIZ ATION 03/02/2024 [facility] DATE CREATED AUTHOR AUTHOR'S ORGANIZ ATION 03/15/2024 [facility] Comments (unrecognize d section and content) In the event this informatio n is protected by the Federal Confidentiality of Alcohol and Drug Abuse Patient Records regulations: The Federal rules restrict any use of the information to criminally investigate or prosecute any alcohol or drug abuse patient.[facility] the event this information is protected by the Federal Confidentiality of Alcohol and Drug Abuse Patient Records regulations: The Federal rules restrict any use of the information to criminally investigate or prosecute any alcohol or drug abuse patient.[facility] the event this information is protected by the Federal Confidentiality of Alcohol and Drug Abuse Patient Records regulations: The Federal rules restrict any use of the information to criminally investigate or prosecute any alcohol or drug abuse patient.[facility] the event this information is protected by the Federal Confidentiality of Alcohol and Drug Abuse Patient Records regulations: The Federal rules restrict any use of the information to criminally investigate or prosecute any alcohol or drug abuse patient.[facility] Care Teams (unrecognized sec tion and content) [employer] Relationship Specialty Start Date End Date Albertina Arndt [address] [place] [phone] PCP - General Family Practice 11/11/20 Team Status: Active Member Role Status Dates Albertina Arndt DO Primary Care Provider Active Team Status: Active Member Role Status Dates Rudolph Ram D.O. Attending Provider Active Team Status: Inactive Member Role Status Dates Albertina Arndt DO Primary Care Provider, Attending Provi breanna Active [employer] Relationship Specialty Start Date End Date Albertina Arndt [address] [place] [phone] PCP - General Family Medicine 11/11/20 [employer] Relationship Specialty Start Date End Date Albertina Arndt [address] [place] [phone] PCP - General Family Medicine 11/11/20 [employer] Relationship Specialty Start Date End Date Albertina Arndt [address] [place] [phone] PCP - General Family Medicine 11/11/20 [employer] Relationship Specialty Start Date End Date LaneericAlbertina DO [address] [place] [phone] PCP - General Family Medicine 07/28/23 Team [...] BE BASED ON THE PRIMARY CLINICAL RECORDS. [employer] [facility]. provides no warranty or guarantee of the accuracy or completeness of information in this document.
[2024-03-30 07:17] LABS: Glucometer 135 mg/dL (74-106)
[2024-03-30] MEDS: LACTATED RINGER'S SOLUTION 1,000 ML 50 ML IV (07:27)
[2024-03-30] MEDS: CEFAZOLIN SODIUM/DEXTROSE,ISO 2 GM/50 ML PIGGYBACK IV (07:56)
--- NOTE | 2024-03-30 09:11 | PM.URSON ---
Urology Surgery Operative Note Operative Note Procedure Date: 03/30/24 Time Out Performed: yes Pre-op Diagnosis: Right ureteral calculi; status post right stent placement Procedures performed: 1. Cystoscopy. 2. Right stent removal. 3. Right ureteroscopy. 4. Right pyeloscopy. 5. Right renal wash for culture and sensitivity. 6. Right ureteral calculi basket extraction. Anesthesia: General-LMA Primary Surgeon: Glynn Curry Complications: None Estimated blood loss (mL): 5 Findings: Diffuse inflammatory debris throughout the entire kidney. Distal right ureteral calculi. Specimens: Distal right ureteral calculi. Drains: None Indications for Procedures: This lady had obstructing right distal ureteral calculi for which she was stented several weeks ago. She now presents for definitive ureteroscopy and stone manipulation. She has signed an informed consent for these procedures after risks were explained. Detailed description of Procedure: The patient was brought to the operating room and placed on the operating room table in the supine position. SCDs were placed on the lower extremities and turned on and functioning during the entire case. Timeout was done by all parties in the room. We all agreed upon the patient's identification and the planned procedures for this patient. Genn. anesthesia was then administered. The patient was then repositioned into the modified dorsal lithotomy position. All pressure points were satisfactorily padded. Genitalia were sterilely prepped and draped in usual fashion. I started by passing a 22 [place] Olympus cystoscope per urethra and into the bladder. Panendoscopy in the bladder revealed a minimally encrusted stent with soft encrustations. I then passed a flexible grasping forceps and grasped the end of the stent. This was brought out the urethral meatus. I then slid a Glidewire through the stent into the kidney and removed the old stent. I then passed a 10/12 Cambodian ureteral access sheath over the wire up to the L5 position. The wire and stylette were then removed. I then passed a flexible ureteroscope through the access sheath and into the ureter. I ascended up the ureter and found no evidence of stone in the proximal half of the ureter. I then entered the kidney and did pyeloscopy. There was copious inflammatory debris throughout the kidney. The debris was so thick I was unable to see within the calyceal compartments. I then used a syringe and aspirated a large sample and sent it for culture and sensitivity. I continued aspirating to clear out the debris to facilitate better visualization. Now I was able to see very well and I scoped within the upper mid and lower pole calyces. No evidence of stone was noted. I then brought the scope back into the ureter and slowly brought the scope down the ureter. While I did this I was slowly removing the access sheath. I was able to get to the distal 3 cm of the ureter where I found some stones. To my surprise, the stent placement did not push the stones up the ureter and/or into the kidney. I then used a 0 tip nitinol basket and engaged a couple stones and these were extracted down and out and sent for stone analysis. I then passed the cystoscope back in the bladder and now there was a larger stone at the right UO. I then passed the basket through the cystoscope and into the ureter and I was able to engage of this larger stone. This was extracted out and sent for specimen. The bladder was drained of its contents and the scope was then removed. Of note is that none of the stones were visible fluoroscopically. The patient was then transferred to a [facility] bed and wheeled to PACU in stable condition.
--- NOTE | 2024-03-30 10:14 | PC.NURSE ---
c/O NAUSEA; NO EMESIS; instructed to stop eating and drinking for now
== END 2024-03-30 10:50 | disposition home or self-care (01) ==
PROVIDERS: PCP Family Medicine; Visit Provider Urology
PROC: (CPT 52352; principal; 2024-03-30 08:00)
DX: N20.1 Calculus of ureter (principal); E11.9 Type 2 diabetes mellitus without complications; I10 Essential (primary) hypertension; I25.10 Atherosclerotic heart disease of native coronary artery without angina pectoris; E78.5 Hyperlipidemia, unspecified; Z95.1 Presence of aortocoronary bypass graft; Z79.4 Long term (current) use of insulin; Z79.84 Long term (current) use of oral hypoglycemic drugs
CPT/HCPCS: 52352; 36415; 76000; 82365; 82948; 87070; 87075; 87106; 99999; J0690; J1100; J2250; J2704

== ENCOUNTER 2024-07-14 09:13 | Outpatient (OUT) | payer MEDICARE, OTHER, SELFPAY ==
--- OUTSIDE RECORDS SUMMARY | 2024-07-14 09:24 | XMS_ITS | CCD ---
Author Organization [facility] Team Providers Care Machine I Engraver Name Role Phone KANWAL MANN Unavailable Unavailable ALBERTINA ARNDT Unavailable Unavailable UNKNOWN, PROVIDER Unavailable Unavailable ALBERTINA ARNDT Unavailable Unavailable Albertina Arndt R Unavailable Unavailable Unavailable ANIVAL, DR STERLING Reyes Admitting Unavailmasood ARNDT, DR ENG Primary Care Unavailable ANIVAL, DR STERLING Reyes Attending Unavailabl e ASIF .WENDY Attending Unavailable WENDY DEL REAL Admitting Unavailable CARIN, DR FRANSISCA Mcdermott Consulting Unavailable HAIR, DR ENG Primary Care Unavailable ASIF .WENDY Consulting Unavailable KANWAL THIBODEAUX Attending Unavailable KANWAL THIBODEAUX Admitting Unavailable HAIR, DR ENG Primary Care Unavailable KANWAL THIBODEAUX Consulting Unavailable ALBERTINA ARNDT Primary Care Physician [phone] Francie Mann Unavailable Unavailable Albertina Arndt Primary Care Provider [phone] Albertina Arndt Unavailable Albertina Arndt Primary Care Unavailable Dr. Sterling Florian Attending Amarisva iljany Florian, Dr. Sterling Oleary Referring Unava ilAlbertina Case Primary Care Unavailable Dr. Sterling Florian Attending Amarisva iljany Florian, Dr. Sterling Oleary Referring Unava ilable So Ram Attending Provider [phone] DO Albertina Arndt Primary Care Provider DO Albertina Arndt Attending Provider Albertina Arndt Primary Care Provider [phone] ALBERTINA ARNDT Primary Care Unavailable Carlito, Francie M Unavailable Unavailable Blank, Garrett Unavailable LaneAlbertina reyes DO Mariusz Primary Care Provider So Ram Attending Provider Hair DO Eng Primary Care Provider DO Tal Florian Attending Provider Hair, Albertina Primary Care Unavailable Tal Florian Admitting Unavailable Tal Florian Attending Unavailable Hair, Albertina Primary Care Unavailable Hair, Albertina Attending Unavailable Kuneric, Albertina Admitting Unavailable DENT, Glynn R Admitting Unavailable DENT, Glynn R Attending Unavailable DENT, Glynn R Referring Unavailable COOK, Orestes P Attending Unavailable COOK, Orestes P Referring Unavailable COOK, Orestes P Admitting Unavailable COOK, Orestes P Admitting Unavailable COOK, Orestes P Attending Unavailable Wendy Gold Attending Unavailable Luayse, Wendy Bay Attending Unavailable Wendy Gold Referring Unavailable COOK, Orestes P Attending Unavailable DENT, Glynn R Attending Unavailable COOK, Orestes P Attending Unavailable COOK, Orestes P Admitting Unavailable COOK, Orestes P Attending Unavailable COOK, Orestes P Admitting Unavailable GennariPaola Admitting Unavailable Jhonny Barrett Attending Unavailable Estela, Garrett S Consulting Unavailable Juan Palmer S Consulting Unavailable Blank, Garrett S Consulting [...] Wilson Admitting Unavailable Glynn ALARCON Attending Unavailable Glynn ALARCON Admitting Unavailable JAILENE, Glynn Mcdermott Consulting Unavailable MD Glynn DENT [...] Consulting Unavailable DENT, Glynn R Consulting Unavailable Backfab, Crystal L Unavailable Unavailable Jhonny Barrett. Attending Unavailable Glynn ALARCON Admitting Unavailable MD Glynn DENT Consulting Unavailable Glynn DENT Attending Unavailable MARCO KURTZ Attending Unavailable STERLING FLORIAN Attending Unavailable ALBERTINA ARNDT Primary Care Unavailable Yulissa Shaw Attending Unavailable Yulissa Shaw Attending Unavailable Glynn DENT Attending Unavailable Glynn DENT Referring Unavailable Delano Rivas Attending Unavailabl e Delano Rivas Referring Unavailabl e Allergies Allergy Classification Reported Allergen(s) Allergy Type Date of Onset Reaction(s) Facility (20 sources) Aspirin; Translations: [aspirin] Drug Allergy 3 Eye swelling (finding), Anaphylaxis [place] [address] DO Work Phone: Comment on above: pt states she is abl e to take 81 mg of aspirin with aspirin allergy (1 source) Aspirin Drug Allergy [facility] Repository (4 sources) No Latwex Allergy [Other] Propensity to adverse reactions 3 [facility] (9 sources) Aspirin Drug Allergy swollen throat [employer] Other (1 source) OTHER; Translations: [OTHER] Propensity to adverse reactions (disorder) 3 [facility] Other [facility] Rep[facility] (1 source) Aspirin Drug Allergy 1 [facility] Repository Medications Current Medications Medication Drug [...] cap(s), Refills(s) 0, Pharmacy: [facility] #[id number], 158, cm, 05/09/23 8:54:00 EDT, Height/Length Dosing, 90.4, kg, 05/09/23 8:54:00 EDT, Weight Dosing Start Date: 05/11/23 Stop Date: 05/16/23 Status: Ordered Start: 11-14-2022 End: 11-19-2022 take 1 capsule by mouth three times daily Keflex 500 mg Cap 500 mg = 1 cap(s), Oral, TID, X 5 day(s), # 15 cap(s), Refills(s) 0, Pharmacy: [facility] #72, 157, cm, 11/13/22 23:40:00 EDT, Height/Length Dosing, 83.2, kg, 11/13/22 23:40:00 EDT, Weight Dosing Start Date: 11/14/22 Stop Date: 11/19/22 Status: Ordered Start: 10-22-2021 take 1 capsule by mo [facility] once daily Keflex 500 mg Cap 500 mg = 1 cap(s), Oral, q12hr, take 1 cap the evening prior to scheduled procedure, take 2nd capsule the day of scheduled procedure, # 2 cap(s), Refills(s) 0, Pharmacy: [facility]/pharmacy #[id number], 161.9, cm, 10/21/21 6:32:00 EST, Height/Length Dosing, 80.5,... Start Date: 10/22/21 Status: Ordered ciprofloxacin 500 mg oral tablet (5 sources) Quinolone Antimicrobial Start: 02-23-2024 End: 03-01-2024 take 1 tablet by mouth twice daily Cipro 500 mg Tab 500 mg = 1 tab(s), Oral, BID, X 7 day(s), # 14 tab(s), Refills(s) 0, Pharmacy: [facility] #72, 160.5, cm, 02/19/24 13:38:00 EDT, Height/Length Dosing, 84.3, kg, 02/19/24 13:38:00 EDT, Weight Dosing Start Date: 02/23/24 Stop Date: 03/01/24 Status: Ordered Start: 08-05-2023 take 1 tablet by luba th twice daily Cipro 500 mg Tab 500 mg = 1 tab(s), Oral, BID, # 10 tab(s), Refills(s) 0, Pharmacy: [facility] #72, 160.5, cm, 08/05/23 13:21:00 EST, Height/Length Dosing, 83, kg, 08/05/23 13:21:00 EST, Weight Dosing Start Date: 08/05/23 Status: Ordered Start: 07-02-2022 Cipro 500 mg T ab See Instructions, Take 1 tab day prior to procedure and 1 tab day of procdure - afterwards, # 2 tab(s), Refills(s) 0, Pharmacy: [facility]/pharmacy #[id number], 163, cm, 07/02/22 [...] night for 1 month, then 2x/week thereafter, [facility]72, 158, cm, 02/08/23 12:39:00 EDT, Height/Length [...] Daily, # 30 tab(s), Refills(s) 0, Pharmacy: [facility]/pharmacy #[id number], 157, cm, 06/17/22 [...] ml insulin glargine 100 unt/ml pen injector (11 sources) Insulin Analog Start: 05-09-20 Basaglar KwikPen 100 units/mL subcutaneous solution 40 unit(s), SubCutaneous, qAM, Refills(s) 0, Blood glucose Start Date: 05/09/23 Status: Ordered Start: 05-09-2023 Basaglar KwikP en 100 units/mL subcutaneous solution Refills(s) 0 Start Date: 05/09/23 Status: Ordered insulin glargine (Bellaaglmarlen DevinePen U-100 Insulin) 100 unit/mL (3 mL) pen [...] BID, # 120 tab(s), Refills(s) 0, Pharmacy: [facility]/pharmacy #[id number], 157.5, cm, 06/10/21 [...] dizziness, # 15 tab(s), Refills(s) 0, Pharmacy: [facility] #72, 157, cm, 11/13/22 23:40:00 EDT, Height/Length Dosing, 83.2, kg, 11/13/22 23:40:00 EDT, Weight Dosing Start Date: 11/14/22 Status: Ordered metFORMIN hydrochloride 500 mg oral tablet (20 sources) Biguanide Start: 10-29-2022 take 1 tablet by mouth twice daily metformin 500 mg Tab 500 mg = 1 tab(s), Oral, BID, Blood glucose Start Date: 10/29/22 Status: Ordered Start: 10-01-2021 take 2 tablets by mo [facility] twice daily metformin 500 mg ER Tab 1,000 mg = 2 tab(s), Oral, BID, High blood sugar Start Date: 10/01/21 Status: Ordered Start: 10-29-2018 [facility] metFORMIN (GLUCOPHAGE) 1,000 mg tablet Take 1,000 mg by mouth twice daily. 0 10/29/2018 Active Comment on above: Take 1,000 mg by [facility] twice daily. 24 hr mirabegron 25 mg extended release oral tablet (3 sources) beta3-Adrenergic Agonist Start: 02-09-20 take 1 tablet by mouth once daily Myrbetriq 25 mg oral tablet, extended release 25 mg = 1 tab(s), Oral, Daily, # 30 tab(s), Refills(s) 6, Pharmacy: [facility] #72, 158, cm, 02/08/23 12:39:00 EDT, Height/Length Dosing, 82, kg, 02/08/23 12:39:00 EDT, Weight Dosing Start Date: 02/08/23 Status: Ordered NIFEdipine 30 mg oral tablet (2 sources) Dihydropyridine Calcium Channel Lesly Start: 02-23-20 24 take 2 tablets by mouth once daily NIFEdipine 30 mg ER Tab 60 mg = 2 tab(s), Oral, Daily, # 60 tab(s), Refills(s) 5, Pharmacy: [facility] #72, 160.5, cm, 02/19/24 13:38:00 EDT, Height/Length [...] day(s), # 60 tab(s), Refills(s) 1, Pharmacy: [facility]/pharmacy #[id number], 157, cm, 06/17/22 [...] water, # 30 tab(s), Refills(s) 10, Pharmacy: [facility] #72, 158, cm, 02/08/23 12:39:00 EDT, Height/Length Dosing, 82, kg, 02/08/23 12:39:00 EDT, Weight Dosing Start Date: 02/08/23 Status: Ordered Start: 10-30-2022 End: 01-28-2023 take 1 tablet by mouth twice daily Effer-K 20 mEq oral tablet, effervescent 20 mEq = 1 tab(s), Oral, BID, X 30 day(s), # 60 tab(s), Refills(s) 2, Pharmacy: [facility] #72, 163, cm, 07/13/22 13:17:00 EST, Height/Length Dosing, 82, kg, 07/13/22 13:17:00 EST, Weight Dosing Start Date: 10/30/22 Stop Date: 01/28/23 Status: Ordered potassium citrate 10 meq extended release oral tablet (2 sources) Start: 08-19-2022 potassium CITRATE 10 mEq ER Tab 10 mEq, 1 tab(s), Oral, BID, 90 tab(s), Refill(s) 6, [facility]/pharmacy #[id number], 163, cm, 07/13/22 13:17:00 EST, Height/Length [...] Daily, # 14 tab(s), Refills(s) 0, Pharmacy: [facility] #72, 158, cm, 05/09/23 8:54:00 EDT, Height/Length [...] Daily, # 30 tab(s), Refills(s) 11, Pharmacy: [facility]/pharmacy #[id number], 157.5, cm, 10/01/21 [...] Date: 06/18/22 Stop Date: 06/18/22 Status: Completed K-Effervescent 25 mEq oral tablet, effervescent (1 source) Start: 06-27-2024 take 1 tablet by mouth twice daily K-Effervescent 25 mEq oral tablet, effervescent 25 mEq = 1 tab(s), Oral, BID, # 60 tab(s), Refills(s) 11, Pharmacy: [facility] #72, 158, cm, 06/27/24 12:07:00 EDT, Height/Length Dosing, 82, kg, 06/27/24 12:07:00 EDT, Weight Dosing Start Date: 06/27/24 Status: Ordered liraglutide (20 sources) GLP-1 Receptor Agonist Victoza 18 MG/3ML as directed Subcutaneous qhs Active liraglutide [...] BID, # 120 tab(s), Refills(s) 0, Pharmacy: [facility]/pharmacy #[id number], 157.5, cm, 06/10/21 10:56:00 EDT, Height/Length Dosing, 79.4, kg, 06/10/21 10:56:00 EDT, Weight Dosing Start Date: 06/12/21 Status: Ordered Start: 10-05-2018 End: 07-27-2024 take 1 tablet by mouth every twelve hours metoprolol tartrate (Lopressor) 50 mg tablet Indications: Primary hypertension Take 1 tablet by mouth every 12 hours. 180 tablet 3 07/28/2023 07/27/2024 Active take 1 tablet by ulba th every twelve hours Metoprolol Tartrate 50 [...] day(s), # 60 EA, Refills(s) 3, Pharmacy: [facility] #72, 158, cm, 02/08/23 12:39:00 EDT, Height/Length Dosing, 82, kg, 02/08/23 12:39:00 EDT, Weight Dosing Start Date: 02/08/23 Stop Date: 06/08/23 Status: Ordered Start: 02-08-2023 End: 06-08-2023 potassium citrate compoundin g powder 30 mEq, Oral, BID, 30mEq potassium citrate powder orally BID, Dissolve in 8 oz water, X 30 day(s), # 60 EA, Refills(s) 3, Pharmacy: [facility] #72, 158, cm, 02/08/23 12:39:00 EDT, Height/Length Dosing, 82, kg, 02/08/23 12:39:00 EDT, Weigh... Start Date: 02/08/23 Stop Date: 06/08/23 Status: Ordered Start: 10-29-2022 potassium citr ate compounding powder See Instructions, 15mEq twice a day, dissolve with water/juice, take with food or after meal, # 60 packet(s), Refills(s) 6, Pharmacy: [facility] #72, 163, cm, 07/13/22 13:17:00 EST, Height/Length [...] disease (20 sources) Atherosclerotic heart disease of [place] coronary artery without angina pectoris; Translations: [Coronary [...] 2 10-01-2021 Chronic Diabetes mellitus without complication (10 sources) Glycosuria 02-08-2023 Episodic Diabetes mellitus without [...] 2 Episodic Genitourinary symptoms and ill-defined conditions (11 sources) Urge incontinence of urine; Translations: [Urge incontinence] Onset: 4 02-08-2023 Chronic Hypertension with complications and secondary hypertension (1 source) Hypertensive urgency ; Translations: [Hypertensive urgency] Onset: 4 Chronic Menopausal disorders (1 source) Atrophic vaginitis; Translations: [Postmenopausal atrophic vaginitis] Onset: 4 Chronic Mycoses (1 source) Mycosis; Translations: [Unspecified mycosis] Onset: 3 Episodic Nausea and vomiting (1 source) Nausea and vomiting; Translations: [Nausea with vomiting, unspecified] Onset: 4 Episodic Other aftercare (20 sources) Long-term current use of anticoagulant; Translations: [[facility]PC (current) use of anticoagulants] Onset: 2 10-08-2021 Episodic Other aftercare (1 source) Long-term current use of drug therapy; Translations: [Other long term care social worker (current) drug therapy] Onset: 3 Episodic Other [...] Chronic Other nutritional; endocrine; and metabolic disorders (11 sources) Obesity caused by energy imbalance; Translations: [...] Unclassified (2 sources) Athscl heart disease of [place] coronary artery w/o ang pctrs / I25.10(ICD-9) [...] Resolved: 07-29-2022 Episodic Other aftercare (2 sources) 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; Translations: [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 ([facility])] Onset: 06-29-2023 Episodic Other nervous system disorders (12 sources) Postoperative pain ; Translations: [Other acute postoperative pain] Resolved: 07-29-2022 Episodic Unclassified (12 sources) Never smoked tobacco; Translations: [Never a smoker] Unclassified (1 source) Onset: 07-28-2023 07-28-2023 Results Test Name Value Interpretation Reference Range Facil ity Ambulatory Visit Summaryon 1 Ambulatory Visit Summary Ambulatory Visit Summary SHAHANA GRACE :1950 Visit Date:06/27/2024 Ambulatory Visit Instructions Your Diagnosis Kidney stone Urge incontinence Atrophic vaginitis Your Care Team Attending Physician - PEEWEE Shaw APRN, [place] [facility] Primary Care Physician - ALBERTINA ARNDT DO This Is Your Medications List potassium bicarbonate (K-Effervescent 25 mEq oral tablet, effervescent) Contact prescribing physician if questions or concerns NIFEdipine (NIFEdipine 30 mg ER Tab) atorvastatin (atorvastatin 40 mg Tab) clopidogrel (Plavix 75 mg Tab) insulin glargine (Basaglar KwikPen 100 units/mL subcutaneous solution) lisinopril (lisinopril 5 mg Tab) metformin (metformin 500 mg Tab) Procedures Performed Cystoscopy (05/27/2023), Cystoscopy (06/17/2022), Cystoscopic removal of ureteric stent (10/27/2021), Coil embolization of portal-systemic shunt (10/22/2021), Fluoroscopic angiography of splenic artery with contrast (10/22/2021), Cystoscopic laser lithotripsy of ureteric calculus (10/21/2021), Retrograde cystogram and replacement of ureteric stent using fluoroscopic guidance (10/01/2021), Appendectomy, CABG (Coronary artery bypass grafting) planned, section, Cystoscopy. Discharge Vitals Heart Rate (Peripheral) 77 Respiratory Rate 16 Blood Pressure 137/74 Height 158 cm Height 62 in Weight 82 kg Weight 180.4 lb BMI 32.85 What to do next Scheduled Follow-Up Appointments Wednesday 11:30 AM EST With: PEEWEE Shaw APRN, [place] [facility] Where: [facility] [address] [place] [address] [place] [address]- You Need to Schedule the Following Appointments Follow Up with Colin GUERRERO, PEEWEE, Yulissa Olivas, TY, URL When: Comments: Jul 2024 w/ KUB/LUCIAN and K level Where: You Need to Complete the Following US Renal, 06/27/24, Routine, Order for future visit, Transport Mode: Bed, Reason: Other (please specify), Reason: kidney stone, No, Kidney stone, pp_set_radiology_subs pecial, [facility] XR Abdomen 1 View, 06/27/24, Routine, Order for future visit, Transport Mode: Bed, Reason: Kidney stone, No, Kidney stone, pp_set_radiology_subs pecialty, [facility] Medications What How Much When Why Instructions Changed potassium bicarbonate (K-Effervescent 25 mEq oral tablet, effervescent) 1 Tablets By Mouth 2 times a day Kidney stone Pickup at [facility] #72 Unchanged atorvastatin (atorvastatin 40 mg Tab) 1 Tablets By Mouth Every day Contact prescribing physician if questions or concerns Unchanged clopidogrel (Plavix 75 mg Tab) See instructions Wednesday- Contact prescribing physician if questions or concerns Unchanged insulin glargine (Basaglar KwikPen 100 units/ mL subcutaneous solution) 40 Units Subcutaneous Once a day (in the morning) Contact prescribing physician if questions or concerns Unchanged lisinopril (lisinopril 5 mg Tab) 1 Tablets By Mouth 2 times a day Contact prescribing physician if questions or concerns Unchanged metformin (metformin 500 mg Tab) 1 Tablets By Mouth 2 times a day Contact prescribing physician if questions or concerns Unchanged NIFEdipine (NIFEdipine 30 mg ER Tab) 2 Tablets By Mouth Every day Contact prescribing physician if questions or concerns Pharmacy Information [facility] #72: [address] [place], [place] [id number] [phone] Allergies aspirin (Eye swelling) Problems Ongoing - Any problem that you are currently receiving treatment for. 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 Diabetes mellitus Hypertension Patient Survey You may receive a survey via text or e-mail asking about your office visit. Please share your experience with us by completing your survey. We appreciate your feedback and thank you for choosing us for your care. Education Materials Dietary Guidelines to Help Prevent Kidney Stones Kidney stones are deposits of minerals and salts that form inside your kidneys. Your risk of developing kidney stones may be greater depending on your diet, your lifestyle, the medicines you take, and whether you have certain medical conditions. Most people can lower their risks of developing kidney stones by following these dietary guidelines. Your dietitian may give you more specific instructions depending on your overall health and the type of kidney stones you tend to develop. What are tips for following this plan? Reading food labels ??? Choose foods with no salt added or low-salt labels. Limit your salt (sodium) intake to less than 1,500 mg a day. ??? Choose foods with calcium for each meal and snack. Try to eat about 300 mg of calcium at each meal. Foods that con (more content not included)... Normal [facility] Urology Office/Clinic Noteon 06-27-2024 Urology Office/Clinic Note Urology Office/Clinic Note HPI Staff Pt here for 3mo f/u. Was in hospital for kidney stones in January for and saw Dr. Dent. Dysuria: denies Incomplete bladder emptying: denies Hematuria: denies Frequency: every 2-3hrs Urgency: denies Nocturia: 1x per night Stream: good stream Leaking: denies Post void dripping: denies Wearing pads/ Depends: wears depends just in case Urge incontinence: denies Stress incontinence: denies Incontinence without Sensory Awareness: denies Abdominal pain: denies Flank pain: denies History of Present Illness I have reviewed and verified the staff HPI to be accurate for this encounter. Portions of this record may have been created with voice recognition artificial intelligence software, specifically [employer], [employer] and or [employer]. Substitutions may have occurred due to the inherent limitations of voice recognition and artificial intelligence software. Review of Systems PHQ Score Initial Depression Screen Score: 0 SCORE Physical Exam Vitals & Measurements HR: 77(Peripheral) RR: 16 BP: 137/74 HT: 62 in HT: 158 cm WT: 82 kg WT: 180.4 lb BMI: 32.85 General: Well developed, well nourished, in no acute distress. Assessment/Plan Primary KML pt, but has seen [facility]/PRW for urgent procedures numerous times 1. Kidney stone (N20.0: Calculus of kidney) Multiple ER visits over the last year w/ urgent stone procedures. s/p cysto/left rigid ureteral dilation/left URS/laser litho/stone basket extraction/sten placement by PRW 05/09/23 s/p cysto/left RGP/stent placement by GPC 05/27/23 s/p left ESWL and stent placement by GPC 07/15/24 s/p cysto/bilat RGP/extraction of right ureteral stone/right stent placement by PRW 02/20/24 Stone analysis 10/21/21 - 10% calcium oxalate and 90% uric acid. stone analysis 06/17/22 - 100% uric acid stone analysis 02/20/24 - 100% uric acid Renal US 11/17/2022 - 7mm nonobstructing calculus LUP (from 2 mm), no hydronephrosis, 1cm simple cyst in mid Lt kidney KUB 01/15/2023 - neg for stones CT AP w/o con 02/19/24 with mild to moderate right sided hydro secondary to 7 mm calculus w/in the proximal left ureter. Cluster of tiny calculi are identified w/in the distal right ureter as well. No additional renal stones noted. [facility] results 01/18/2023 - volume 1.6 (1.99), 307 (463) citrate, 8.557 (5.163) pH (suspect urea-splitting org) Lab results 01/15/23 - Cr 1.4 (1.3), PTH 43 (88), uric acid 6.8 (9.1), EGFR 40 (40) [1] K 02/23/24 - 3.8 UA today w/ trace blood and trace leukocytes. Pt denies sxs of infection. Urine pH today 5.0 Taking 25 meq Effer-K QD at this time. Look like pt was previously supposed to be on kcitrate 30 meq BID, but pt unsure if she was ever taking a twice daily dose. Again discussed need for increased fluids, decreased urine pH w/ Effer K, decreased animal proteins to prevent/dissolve uric acid stones. Pt did not repeat 24 hr urine, consider in the future. -f/u Jul 2024 w/ KUB/LUCIAN per pt preference at [facility] -Inc Effer K to BID at [facility] -Recheck K in 2 weeks Ordered: potassium bicarbonate, 25 mEq = 1 tab(s), Oral, BID, # 60 tab(s), Refills(s) 11, Pharmacy: [facility] #72, 158, cm, 06/27/24 12:07:00 EDT, Height/Length Dosing, 82, kg, 06/27/24 12:07:00 EDT, Weight Dosing Body Mass Index (BMI) documented 3008F Current tobacco non-user 1036F Depression Screening Negative 3352F Electrolyte Panel Influenza immunization status assessed 1030F Medication list documented in medical record 1159F Most recent diastolic blood pressure <80 mm Hg 3078F Patient screen for fall risk: no falls in last year or 1 fall with no injury in last year 1101F Review of all meds by a prescribing practitioner or clinical pharmacist documented in EHR 1160F Systolic BP 130-139 mm Hg (Most Recent) 3075F Urnls Dip Stick Auto w/o Microscopy POC 31433 US Renal XR Abdomen 1 View 2. Urge incontinence (N39.41: Urge incontinence) BBS 8 failed vesicare and oxybutynin d/t SEs in the past. Trialed rx of Myrbetriq, but unclear what happened pt unbothered by urinary sxs at this time 3. Atrophic vaginitis (N95.2: Postmenopausal atrophic vaginitis) previously on estrogen cream vaginally, no longer using not bothered by sxs at this time Orders: fluconazole, 150 mg = 1 tab(s), Oral, Daily, # 3 tab(s), Refills(s) 0, Pharmacy: [facility] #72, 160.5, cm, 02/19/24 13:38:00 EDT, Height/Length Dosing, 84.3, kg, 02/19/24 13:38:00 EDT, Weight Dosing potassium bicarbonate, 25 mEq = 1 tab(s), Oral, Daily, dissolve in 4 ounces of water, # 90 tab(s), Refills(s) 3, Pharmacy: [facility] #72, 160.5, cm, 02/19/24 13:38:00 EDT, Height/Length Dosing, 84.3, kg, 02/19/24 13:38:00 EDT, Weight Dosing Follow-up With When Contact Information [employer] ASSET MANAGEMENT ANALYST, COIL REPAIR TECHNICIAN-C, Yulissa Olivas, FAM, URL Additional Instructions: Jul 2024 w/ KUB/LUCIAN and K level Patient Education Dietary Guidelines to Help Prevent (more content not included)... Normal [facility] Comment on above: Result Comment: Elec tronically Signed By: PEEWEE Shaw APRN, Yulissa Olivas\.br\Date and Time Signed: 06/27/24 13:08 EDT Calculus Analysison 02-29-20 24 Color (Stone) Levine Invalid Interpretation Code [facility] Comment on above: Performed By: #### 1 [id number] #### [facility] [address] [place] [address] Composition Comment Invalid Interpretation Code [facility] Comment on above: Result Comment: Perc entage (Represents the % composition) Performed By: #### 1 [id number] #### [facility] [address] [place] [address] Disclaimer: Comment Invalid Interpretation Code [facility] Comment on above: Result Comment: This test was developed and its performance characteristics determined by [facility]. It has not been cleared or approved by the Food and Drug Administration. Performed at: [address] [id number] PhD Lester Adams Performed By: #### 1 [id number] #### [facility] [address] [place] [address] Laboratory comment Hu (Report) Comment Invalid Interpretation Code [facility] Comment on above: Result Comment: Nicolas arora questions regarding Calculi Analysis contact [email or web address] at: [phone]. Performed By: #### 1 [id number] #### [facility] [address] [place] [address] Please Note: Comment Invalid Interpretation Code [facility] Comment on above: Result Comment: Calc bernard report will follow via computer, mail or head of science delivery. Performed By: #### 1 [id number] #### [facility] [address] [place] [address] Size (Stone) [Entitic vol] <1 Invalid Interpretation Code [facility] Comment on above: Result Comment: Too small to measure. Performed By: #### 1 [id number] #### [facility] [address] [place] [address] Specimen source subject Nom Comment Invalid Interpretation Code [facility] Comment on above: Result Comment: Righ t Ureter Performed By: #### 1 [id number] #### [facility] [address] [place] [address] Stone Photo COMMENT Invalid Interpretation Code [facility] Comment on above: Result Comment: Test not performed No photo available Performed By: #### 1 [id number] #### [facility] [address] [place] [address] Urate (Stone) [Mass fraction] 100 % Invalid Interpretation Code [facility] Comment on above: Performed By: #### 1 [id number] #### [facility] [address] [place] [address] Weight (Stone) <1 Invalid Interpretation Code [facility] Comment on above: Result Comment: Too small to weigh Performed By: #### 1 [id number] #### [facility] [address] [place] [address] CBC w/ Auto Diffon 4 Basophils/100 WBC (Bld) 0.3 % Normal 0.0-2.0 [facility] Comment on above: Performed By: #### 2 [id number] #### [facility] [address] [place] [address] Basophils/Leukocytes Auto (Bld) [Pure # fraction] 0.0 E9/L Normal 0.0-0.2 [facility] Comment on above: Performed By: #### 2 [id number] #### [facility] [address] [place] [address] Eosinophils (Bld) [#/Vol] 0.1 E9/L Normal 0.0-0.5 [facility] Comment on above: Performed By: #### 2 [id number] #### [facility] [address] [place] [address] Eosinophils/100 WBC (Bld) 1.6 % Normal 0.0-8.0 [facility] Comment on above: Performed By: #### 2 865420 #### [facility] [address] [place] [address] Erythrocyte distribution width (RBC) [Ratio] 13.9 % Normal 10.9-14.2 [facility] Comment on above: Performed By: #### 2 620369 #### [facility] [address] [place] [address] Hematocrit (Bld) [Volume fraction] 38.6 % Normal 34.0-46.0 [facility] Comment on above: Performed By: #### 2 455965 #### [facility] [address] [place] [address] Hemoglobin (Bld) [Mass/Vol] 13.2 g/dL Normal 12.0-16.0 [facility] Comment on above: Performed By: #### 2 869281 #### [facility] [address] [place] [address] Lymphocytes (Bld) [#/Vol] 0.7 E9/L Low 1.0-4.0 [facility] Comment on above: Performed By: #### 2 193450 #### [facility] [address] [place] [address] Lymphocytes/100 WBC (Bld) 8.2 % Low 14.0-50.0 [facility] Comment on above: Performed By: #### 2 045314 #### [facility] [address] [place] [address] MCH (RBC) [Entitic mass] 31.4 pg Normal 27.0-34.0 [facility] Comment on above: Performed By: #### 2 875738 #### [facility] [address] [place] [address] MCHC (RBC) [Mass/Vol] 34.2 g/dL Normal 31.4-36.0 [facility] Comment on above: Performed By: #### 2 943147 #### [facility] [address] [place] [address] MCV (RBC) [Entitic vol] 92.0 fL Normal 80.0-100.0 [facility] Comment on above: Performed By: #### 2 [id number] #### [facility] [address] [place] [address] Monocytes (Bld) [#/Vol] 0.6 E9/L Normal 0.2-1.0 [facility] Comment on above: Performed By: #### 2 246683 #### [facility] [address] [place] [address] Neutrophils (Bld) [#/Vol] 6.8 E9/L Normal 2.0-7.5 [facility] Comment on above: Performed By: #### 2 981871 #### [facility] [address] [place] [address] Neutrophils/100 WBC (Bld) 82.5 % High 36.0-75.0 [facility] Comment on above: Performed By: #### 2 743533 #### [facility] [address] [place] [address] Platelet 126.0 E9/L Low 150.0-500.0 [facility] Comment on above: Performed By: #### 2 129959 #### [facility] [address] [place] [address] Platelet mean volume (Bld) [Entitic vol] 8.0 fL Normal 6.4-10.8 [facility] Comment on above: Performed By: #### 2 648300 #### [facility] [address] [place] [address] RBC (Bld) [#/Vol] 4.2 E12/L Low 4.3-5.9 [facility] Comment on above: Performed By: #### 2 047312 #### [facility] [address] [place] [address] WBC corrected for nucl RBC Auto (Bld) [#/Vol] 8.3 E9/L Normal 4.0-11.0 [facility] Comment on above: Performed By: #### 2 156505 #### [facility] [address] [place] [address] CHEMISTRYOrdered By: Andrea Richter on 02-23-2024 Glucose [Mass/Vol] 183 mg/dL High 55 - 99 mg/dL FTM C POC Subsection Comment on above: Result Comment: Modesto vanegas RN/ POC Device SN [id number] 1 Invalid Interpretation Code [facility] POC Subsection POC User ID [id number] 1 Invalid Interpretation Code [facility] POC Subsection POC Username AISHA PAK Invalid Interpretation Code [facility] POC Subsection Glucose [Mass/Vol] 148 mg/dL High 55 - 99 mg/dL FTM C POC Subsection Comment on above: Result Comment: Modesto vanegas RN/ POC Device SN [id number] 1 Invalid Interpretation Code [facility] POC Subsection POC User ID [id number] 1 Invalid Interpretation Code [facility] POC Subsection [...] 01-29 Glucose [Mass/Vol] 183 mg/dL High 55-99 [facility] Comment on above: Result Comment: Modesto vanegas RN/ Performed By: #### 2 [id number] #### [facility] [address] [place] [address] Discharge Instructionson Discharge Instructions [id number]# 1.00TIFF Normal [facility] Discharge Note-Nursingon Discharge Note-Nursing BASIASHAHANA :1950 Visit [...] care physician. This Is Your Medications List [facility] Prescription (Liver panel) [...] patient for hosptial follow up appointment. Where: [address] [place] [address] [facility] (1) Medications What How Much When Instructions Next Dose New NIFEdipine (NIFEdipine 30 mg ER Tab) 2 Tablets By Mouth Every day Refills: 5 Pickup at [facility] 02/23 @ 9 AM Unchanged atorvastatin [...] day 02/23 @ 9 AM Pharmacy Information [facility]: [address] [place], [place] [id number] [phone] Test Results CBC BMP WBC: 8.3 E9/L [...] 05:26:00) Chlorid (more content not included)... Normal [facility] HEMATOLOGYOrdered By: Wendy Pritchard on 02-23-2024 [...] Inpatient Clinical Summaryon 02-23-2024 Inpatient Clinical Summary [place] [id number] Clinical Summary Person Information: Name: SHAHANA GRAEC Age: 74 Years : 1950 Sex: Female PCP: ALBERTINA ARNDT DO Marital Status: Race: White Ethnicity: Non- or Language: Luxembourger Visit Id: Visit Reason: Polydipsia; Nausea; Hyperglycemia; hyperglycemia Speciality: Acuity: Enc Type: Inpatient Med Service: Medical Arrival: 02/19/2024 13:27:15 Discharge: Dispo Type: Admitted as IP to this Hosp Address: [address] [place] [phone] Provider Notes: Diagnosis: 1:Complicated urinary tract infection; [...] disease Urge incontinence Glucosuria 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 With: Address: When: ALBERTINA ARNDT [address] [place] [address] [facility] (1) Comments: Doctor's office will call patient for hosptial follow up appointment. Patient Education Information: Diet - Basic Carbohydrate Counting (Custom) Normal [facility] Inpatient Patient Summaryon 02-23-2024 Inpatient Patient Summary [address] [address] Patient Discharge Instructions PERSON INFORMATION [...] is planned. With: Address: When: ALBERTINA ARNDT [address] [place] [id number] Business (1) Comments: Doctor's office will call [...] OCCURRED DURING YOUR HOSPITAL STAY New Medications [facility], [address] [place], [place] [id number], [phone] NIFEdipine (NIFEdipine 30 mg ER Tab) 2 Tablets By Mouth every day. Refills: 5. Last Dose: ____Next Dose: ____ Medications to Continue Taking That Have Changed [facility], [address] [place], [place] [id number], [phone] START: ciprofloxacin (Cipro 500 mg Tab) 1 [...] ALL TIMES (more content not included)... Normal [facility] IntraOperative Documentson 0 02-23-2024 IntraOperative Documents [id number]# 1.00TIFF Normal [facility] Monitor Recordon 02-23-2024 Monitor Record [id number]# 1.00TIFF Normal [facility] BMPon 02-22-2024 Anion gap [Moles/Vol] 10 mmol/L Normal -16 [facility] Comment on above: Performed By: #### 2 [id number] #### [facility] [address] [place] [address] Calcium [Mass/Vol] 7.3 mg/dL Low 8.9-11.1 [facility] Comment on above: Performed By: #### 2 712383 #### [facility] [address] [place] [address] Chloride [Moles/Vol] 118 mmol/L High 101-111 [facility] Comment on above: Performed By: #### 2 214648 #### [facility] [address] [place] [address] CO2 [Moles/Vol] 19 mmol/L Low 21-31 [facility] Comment on above: Performed By: #### 2 538793 #### [facility] [address] [place] [place] [address] Creatinine [Mass/Vol] 1.5 mg/dL High 0.5-1.3 [facility] Comment on above: Performed By: #### 2 648476 #### [facility] [address] [place] [address] Glucose [Mass/Vol] 254 mg/dL High 55-199 [facility] Comment on above: Performed By: #### 2 109907 #### [facility] [address] [place] [address] Potassium [Moles/Vol] 3.9 mmol/L Normal 3.5-5.3 [facility] Comment on above: Performed By: #### 2 917883 #### [facility] [address] [place] [address] Sodium [Moles/Vol] 143 mmol/L Normal 135-145 [facility] Comment on above: Performed By: #### 2 766502 #### [facility] [address] [place] [address] Urea nitrogen [Mass/Vol] 33 mg/dL High 5-21 [facility] Comment on above: Performed By: #### 2 257405 #### [facility] [address] [place] [address] Urea nitrogen/Creatinine [Mass ratio] 22 No Units High 10-20 [facility] Comment on above: Performed By: #### 2 635942 #### [facility] [address] [place] [address] CBC w/ Auto Diffon 4 Basophils/100 WBC (Bld) 0.2 % Normal 0.0-2.0 [facility] Comment on above: Performed By: #### 2 961066 #### [facility] [address] [place] [address] Basophils/Leukocytes Auto (Bld) [Pure # fraction] 0.0 E9/L Normal 0.0-0.2 [facility] Comment on above: Performed By: #### 2 308638 #### [facility] [address] [place] [address] Eosinophils (Bld) [#/Vol] 0.1 E9/L Normal 0.0-0.5 [facility] Comment on above: Performed By: #### 2 053790 #### [facility] [address] [place] [address] Eosinophils/100 WBC (Bld) 1.5 % Normal 0.0-8.0 [facility] Comment on above: Performed By: #### 2 855621 #### [facility] [address] [place] [address] Erythrocyte distribution width (RBC) [Ratio] 13.9 % Normal 10.9-14.2 [facility] Comment on above: Performed By: #### 2 734582 #### [facility] [address] [place] [address] Hematocrit (Bld) [Volume fraction] 39.5 % Normal 34.0-46.0 [facility] Comment on above: Performed By: #### 2 370241 #### [facility] [address] [place] [address] Hemoglobin (Bld) [Mass/Vol] 13.1 g/dL Normal 12.0-16.0 [facility] Comment on above: Performed By: #### 2 996953 #### [facility] [address] [place] [address] Lymphocytes (Bld) [#/Vol] 0.8 E9/L Low 1.0-4.0 [facility] Comment on above: Performed By: #### 2 871105 #### [facility] [address] [place] [address] Lymphocytes/100 WBC (Bld) 9.5 % Low 14.0-50.0 [facility] Comment on above: Performed By: #### 2 609789 #### [facility] [address] [place] [address] MCH (RBC) [Entitic mass] 30.8 pg Normal 27.0-34.0 [facility] Comment on above: Performed By: #### 2 961583 #### [facility] [address] [place] [address] MCHC (RBC) [Mass/Vol] 33.2 g/dL Normal 31.4-36.0 [facility] Comment on above: Performed By: #### 2 426431 #### [facility] [address] [place] [address] [place] [address] MCV (RBC) [Entitic vol] 92.8 fL Normal 80.0-100.0 [facility] Comment on above: Performed By: #### 2 978117 #### [facility] [address] [place] [address] Monocytes (Bld) [#/Vol] 0.6 E9/L Normal 0.2-1.0 [facility] Comment on above: Performed By: #### 2 903465 #### [facility] [address] [place] [address] Neutrophils (Bld) [#/Vol] 7.3 E9/L Normal 2.0-7.5 [facility] Comment on above: Performed By: #### 2 266608 #### [facility] [address] [place] [address] Neutrophils/100 WBC (Bld) 81.8 % High 36.0-75.0 [facility] Comment on above: Performed By: #### 2 115910 #### [facility] [address] [place] [address] Platelet mean volume (Bld) [Entitic vol] 8.5 fL Normal 6.4-10.8 [facility] Comment on above: Performed By: #### 2 265959 #### [facility] [address] [place] [address] Platelets (Bld) [#/Vol] 122.0 E9/L Low 150.0-500.0 [facility] Comment on above: Performed By: #### 2 215663 #### [facility] [address] [place] [address] RBC (Bld) [#/Vol] 4.3 E12/L Normal 4.3-5.9 [facility] Comment on above: Performed By: #### 2 892857 #### [facility] [address] [place] [address] WBC corrected for nucl RBC Auto (Bld) [#/Vol] 8.9 E9/L Normal 4.0-11.0 [facility] Comment on above: Performed By: #### 2 952654 #### [facility] [address] [place] [address] CHEMISTRYOrdered By: Lab ROP User on 02-22-2024 Glucose [Mass/Vol] 234 mg/dL High 55 - 99 mg/dL FT C POC Subsection Comment on above: Result Comment: Modesto vanegas RN/ POC Device SN [id number] 1 Invalid Interpretation Code [facility] POC Subsection POC User ID [id number] 1 Invalid Interpretation Code [facility] POC Subsection POC Username CAREY HATHAWAY Invalid Interpretation Code [facility] POC Subsection CHEMISTRYOrdered By: SYSTEM [...] 01-29 Glucose [Mass/Vol] 234 mg/dL High 55-99 [facility] Comment on above: Result Comment: [place] ANDRES Performed By: #### 2 [id number] #### [facility] [address] [place] [address] Glucose [Mass/Vol] 306 mg/dL High 55-99 [facility] Comment on above: Result Comment: Modesto vanegas RN/ Performed By: #### 2 [id number] #### [facility] [address] [place] [address] Glucose [Mass/Vol] 303 mg/dL High 55-99 [facility] Comment on above: Result Comment: Modesto vanegas RN/ Performed By: #### 2 [id number] #### [facility] [address] [place] [address] Glucose [Mass/Vol] 212 mg/dL High 55-99 [facility] Comment on above: Result Comment: Modesto vanegas RN/ Performed By: #### 2 [id number] #### [facility] [address] [place] [address] HEMATOLOGYOrdered By: SYSTEM SYSTEM on 02-22-2024 Basophils/100 [...] Inpatient Clinical Summaryon 02-22-2024 Inpatient Clinical Summary [place] [address] Clinical Summary Person Information: Name: SHAHANA GRACE Age: 74 Years : 1950 Sex: Female PCP: ALBERTINA ARNDT DO Marital Status: Race: White Ethnicity: Non- or Language: Luxembourger Visit Id: Visit Reason: Polydipsia; Nausea; Hyperglycemia; hyperglycemia Speciality: Acuity: Enc Type: Inpatient Med Service: Medical Arrival: 02/19/2024 13:27:15 Discharge: Dispo Type: Admitted as IP to this Hosp Address: [address] [place] [phone] Provider Notes: Diagnosis: 1:Complicated urinary tract infection; [...] disease Urge incontinence Glucosuria Urinary tract infection [facility] current use of anticoagulant Kidney stone Smoking [...] Diet - Basic Carbohydrate Counting (Custom) Normal [facility] Inpatient Patient Summaryon 02-22-2024 Inpatient Patient Summary [place] [address] Patient Discharge Instructions PERSON INFORMATION Name: SHAHANA [...] to and afte (more content not included)... [facility] Interdisciplinary Note - Galo e Manageron 02-22-2024 Interdisciplinary Note - Ring Stamper Pt is awake and alert in bed, previously rounded with Dr. Barrett. No family present. Pt is on phone with family providing updates at this time. Declines any concerns or DC needs. Medicare rights reviewed. . PCP verified and insurance information reviewed and DME discussed. Contact information provided and white board updated. [facility] Comment on above: Result Comment: Elec tronically Signed By: Samir MARCUM, Ayleen\.hector\Date and Time Signed: 02/22/24 09:22 EDT Monitor Recordon 02-22-2024 Monitor Record [id number]# 1.00TIFF [facility] Monitor Record [id number]# 1.00TIFF [facility] Monitor Record [id number]# 1.00TIFF [facility] Progress Note-Physicianon Progress Note-Physician Subjective Day [...] Lymph Auto: 9.5 % Low (02/22/24 05:20:00) Morrill Auto: 7 % (02/22/24 05:20:00) Eos Auto: 1.5 % (02/22/24 05:20:00) Basophil Auto: 0.2 % (02/22/24 05:20:00) Neutro Absolute: 7.3 E9/L (02/22/24 05:20:00) Lymph Absolute: 0.8 E9/L Low (02/22/24 05:20:00) Morrill Absolute: 0.6 E9/L (02/22/24 05:20:00) Eos Absolute: [...] mg/dL High (02/22/24 11:20:00) POC Device SN: [id number] (02/22/24 11:20:00) POC User ID: [id number] (02/22/24 11:20:00) POC Username: POC Username (02/22/24 [...] p.o. 7. (more content not included)... Normal [facility] Comment on above: Result Comment: Elec tronically Signed By: Jhonny Barrett DO\Date and Time Signed: 06/25/24 13:48 EDT eGFRon 02-22-2024 eGFR 37 mL/min/1.73 m2 Low >=59 [facility] Comment on above: Order Comment: Order added by Discern Expert. Performed By: #### 1 [id number] #### [facility] [address] [place] [address] BMPon 02-21-2024 Anion gap [Moles/Vol] 13 mmol/L Normal 6-16 [facility] Comment on above: Performed By: #### 2 [id number] #### [facility] [address] [place] [address] Calcium [Mass/Vol] 7.7 mg/dL Low 8.9-11.1 [facility] Comment on above: Performed By: #### 2 [id number] #### [facility] [address] [place] [address] Chloride [Moles/Vol] 114 mmol/L High 101-111 [facility] Comment on above: Performed By: #### 2 146963 #### [facility] [address] [place] [address] CO2 [Moles/Vol] 20 mmol/L Low 21-31 [facility] Comment on above: Performed By: #### 2 503496 #### [facility] [address] [place] [address] Creatinine [Mass/Vol] 1.7 mg/dL High 0.5-1.3 [facility] Comment on above: Performed By: #### 2 852503 #### [facility] [address] [place] [address] Glucose [Mass/Vol] 289 mg/dL High 55-199 [facility] Comment on above: Performed By: #### 2 390076 #### [facility] [address] [place] [address] Potassium [Moles/Vol] 4.2 mmol/L Normal 3.5-5.3 [facility] Comment on above: Performed By: #### 2 901700 #### [facility] [address] [place] [address] Sodium [Moles/Vol] 143 mmol/L Normal 135-145 [facility] Comment on above: Performed By: #### 2 269940 #### [facility] [address] [place] [address] Urea nitrogen [Mass/Vol] 37 mg/dL High 5-21 [facility] Comment on above: Performed By: #### 2 978735 #### [facility] [address] [place] [address] Urea nitrogen/Creatinine [Mass ratio] 22 No Units High 10-20 [facility] Comment on above: Performed By: #### 2 379029 #### [facility] [address] [place] [address] C Urineon 02-21-2024 Bacteria identified Cx Nom [...] Locations R1: This test was performed at: [facility], [address] [place] [address], [phone]- , , [facility] Comment on above: Performed By: #### 2 [id number] #### [facility] [address] [place] [address] CHEMISTRYOrdered By: SYSTEM SYSTEM on 02-21-2024 Anion [...] 01-29 Glucose [Mass/Vol] 323 mg/dL High 55-99 [facility] Comment on above: Result Comment: [place] ANDRES Performed By: #### 2 [id number] #### [facility] [address] [place] [address] Glucose [Mass/Vol] 240 mg/dL High 55-99 [facility] Comment on above: Result Comment: [place] ANDRES Performed By: #### 2 [id number] #### [facility] [address] [place] [address] Glucose [Mass/Vol] 287 mg/dL High 55-99 [facility] Comment on above: Performed By: #### 2 [id number] #### [facility] [address] [place] [address] Glucose [Mass/Vol] 201 mg/dL High 55-99 [facility] Comment on above: Result Comment: [place] ANDRES Performed By: #### 2 [id number] #### [facility] [address] [place] [address] Glucose [Mass/Vol] 194 mg/dL High 55-99 [facility] Comment on above: Result Comment: Repe at Test Performed By: #### 2 [id number] #### [facility] [address] [place] [address] Consent for Anesthesiaon Consent for Anesthesia [id number]# 1.00TIFF Normal [facility] Consent for Procedure/Surger yon 02-21-2024 Consent for Procedure/Surgery [id number]# 1.00TIFF Normal [facility] [id number] 02-21-2024 HbA1c (Bld) [Mass fraction] 11.3 % High <=5.9 [facility] Comment on above: Performed By: #### 7 [id number] #### [facility] [address] [place] [address] Interdisciplinary Note - Galo e Manageron 02-21-2024 Interdisciplinary Note - Ring Stamper Patient is awake and alert in bed, [...] information provided and white board updated. Normal [facility] Comment on above: Result Comment: Elec tronically Signed By: Samir MARCUM, Ayleen\.hector\Date and Time Signed: 02/21/24 09:45 EDT Interdisciplinary Note - Soc ial Workeron 02-21-2024 Interdisciplinary Note - Upholstery Parts Sorter There was a positive SDOH screen for safety received in error. This patient lives with her spouse and has been for 40 years. She voiced that she has no safety concerns. There were no psychosocial needs identified. Normal [facility] IntraOperative Documentson 0 02-21-2024 IntraOperative Documents [id number]# 1.00TIFF [facility] Main OR Intraoperative Recor don 02-21-2024 Main OR Intraoperative Record IntraOp Document Type FT Summary Primary Physician: Glynn DENT MD Finalized Date/Time: 02/21/24 14:17:37 Pt. Name: SHAHANA GRACE /Sex: 1950 Female Med Rec #: [id number] Physician: Glynn ALARCON DO Financial #: [id number] Pt. Type: I Room/Bed: [place] [address] Admit/Disch: 02/19/24 13:27:15 - Institution: Case Times [...] Role Performed Anesthesiologist of Surgeon - Primary Biological Photographer - Primary Record Time In 02/20/24 10:16:00 [...] RT(R), [place] Role Performed Scrub - Primary [employer] Member Time In 02/20/24 10:16:00 02/20/24 10:16:00 02/20/24 [...] Glynn DENT MD, Given Participants MD Ingrid, Franklin Figueroa RN, [...] and tissue Entry 1 Skin Integrity Intact, Jobos, Warm, and Skin Abnormality No Dry Outcomes Met? Yes Last Modified By: Shara Reid RN 02/20/24 11:11:55 Post-Care Text: The patient is free from signs and symptoms of injur (more content not included)... Normal [facility] Monitor Recordon 02-21-2024 Monitor Record [id number]# 1.00TIFF Normal [facility] Monitor Record [id number]# 1.00TIFF Normal [facility] Monitor Record [id number]# 1.00TIFF Normal [facility] Monitor Record [id number]# 1.00TIFF Normal [facility] Progress Note-Physicianon Progress Note-Physician Subjective [...] mg/dL High (02/21/24 11:33:00) POC Device SN: [id number] (02/21/24 11:33:00) POC User ID: [id number] (02/21/24 11:33:00) POC Username: [email or web address] ZAPATA (02/21/24 [...] as needed (more content not included)... Normal [facility] Comment on above: Result Comment: Elec tronically Signed By: Jhonny Barrett DO\.br\Date and Time Signed: 02/21/24 12:11 EDT eGFRon 02-21-2024 eGFR 31 mL/min/1.73 m2 Low >=59 [facility] Comment on above: Order Comment: Order added by Discern Expert. Performed By: #### 1 [id number] #### [facility] [address] [place] [address] BMPon 02-20-2024 Anion gap [Moles/Vol] 13 mmol/L Normal 6-16 [facility] Comment on above: Performed By: #### 2 [id number] #### [facility] [address] [place] [address] Calcium [Mass/Vol] 8.1 mg/dL Low 8.9-11.1 [facility] Comment on above: Performed By: #### 2 514016 #### [facility] [address] [place] [address] Chloride [Moles/Vol] 112 mmol/L High 101-111 [facility] Comment on above: Performed By: #### 2 362202 #### [facility] [address] [place] [address] CO2 [Moles/Vol] 24 mmol/L Normal 21-31 [facility] Comment on above: Performed By: #### 2 976781 #### [facility] [address] [place] [address] Creatinine [Mass/Vol] 2.1 mg/dL High 0.5-1.3 [facility] Comment on above: Performed By: #### 2 443183 #### [facility] [address] [place] [address] Glucose [Mass/Vol] 301 mg/dL High 55-199 [facility] Comment on above: Performed By: #### 2 965039 #### [facility] [address] [place] [address] Potassium [Moles/Vol] 4.4 mmol/L Normal 3.5-5.3 [facility] Comment on above: Performed By: #### 2 780254 #### [facility] [address] [place] [address] Sodium [Moles/Vol] 145 mmol/L Normal 135-145 [facility] Comment on above: Performed By: #### 2 868587 #### [facility] [address] [place] [address] Urea nitrogen [Mass/Vol] 38 mg/dL High 5-21 [facility] Comment on above: Performed By: #### 2 148386 #### [facility] [address] [place] [address] Urea nitrogen/Creatinine [Mass ratio] 18 No Units Normal 10-20 [facility] Comment on above: Performed By: #### 2 155685 #### [facility] [address] [place] [address] CBC w/ Auto Diffon 4 Basophils/100 WBC (Bld) 0.3 % Normal 0.0-2.0 [facility] Comment on above: Performed By: #### 2 445101 #### [facility] [address] [place] [address] Basophils/Leukocytes Auto (Bld) [Pure # fraction] 0.0 E9/L Normal 0.0-0.2 [facility] Comment on above: Performed By: #### 2 257905 #### [facility] [address] [place] [address] Eosinophils (Bld) [#/Vol] 0.0 E9/L Normal 0.0-0.5 [facility] Comment on above: Performed By: #### 2 013537 #### [facility] [address] [place] [address] Eosinophils/100 WBC (Bld) 0.1 % Normal 0.0-8.0 [facility] Comment on above: Performed By: #### 2 477701 #### [facility] [address] [place] [address] Erythrocyte distribution width (RBC) [Ratio] 14.0 % Normal 10.9-14.2 [facility] Comment on above: Performed By: #### 2 470406 #### [facility] [address] [place] [address] Hematocrit (Bld) [Volume fraction] 45.0 % Normal 34.0-46.0 [facility] Comment on above: Performed By: #### 2 392208 #### [facility] [address] [place] [address] Hemoglobin (Bld) [Mass/Vol] 14.8 g/dL Normal 12.0-16.0 [facility] Comment on above: Performed By: #### 2 997642 #### [facility] [address] [place] [address] Lymphocytes (Bld) [#/Vol] 1.3 E9/L Normal 1.0-4.0 [facility] Comment on above: Performed By: #### 2 498200 #### [facility] [address] [place] [address] Lymphocytes/100 WBC (Bld) 9.6 % Low 14.0-50.0 [facility] Comment on above: Performed By: #### 2 466121 #### [facility] [address] [place] [address] MCH (RBC) [Entitic mass] 30.8 pg Normal 27.0-34.0 [facility] Comment on above: Performed By: #### 2 315216 #### [facility] [address] [place] [address] MCHC (RBC) [Mass/Vol] 32.9 g/dL Normal 31.4-36.0 [facility] Comment on above: Performed By: #### 2 800006 #### [facility] [address] [place] [address] MCV (RBC) [Entitic vol] 93.5 fL Normal 80.0-100.0 [facility] Comment on above: Performed By: #### 2 721758 #### [facility] [address] [place] [address] Monocytes (Bld) [#/Vol] 0.9 E9/L Normal 0.2-1.0 [facility] Comment on above: Performed By: #### 2 223456 #### [facility] [address] [place] [address] Neutrophils (Bld) [#/Vol] 11.0 E9/L High 2.0-7.5 [facility] Comment on above: Performed By: #### 2 528585 #### [facility] [address] [place] [address] Neutrophils/100 WBC (Bld) 82.9 % High 36.0-75.0 [facility] Comment on above: Performed By: #### 2 997258 #### [facility] [address] [place] [address] Platelet mean volume (Bld) [Entitic vol] 8.2 fL Normal 6.4-10.8 [facility] Comment on above: Performed By: #### 2 273334 #### [facility] [address] [place] [address] Platelets (Bld) [#/Vol] 144.0 E9/L Low 150.0-500.0 [facility] Comment on above: Performed By: #### 2 841670 #### [facility] [address] [place] [address] RBC (Bld) [#/Vol] 4.8 E12/L Normal 4.3-5.9 [facility] Comment on above: Performed By: #### 2 078514 #### [facility] [address] [place] [address] WBC corrected for nucl RBC Auto (Bld) [#/Vol] 13.2 E9/L High 4.0-11.0 [facility] Comment on above: Performed By: #### 2 776001 #### [facility] [address] [place] [address] CHEMISTRYOrdered By: Abisai Lutz on 02-20-2024 HbA1c (Bld) [Mass fraction] 11.3 % High <=5.9% [facility] ChemAutoSS CT Abdomen/Pelvis w/o Contra [...] Oral contrast amount in ml's: 0 Normal [facility] Capillary Glucose POCon 01-29 Glucose [Mass/Vol] 302 mg/dL High 55-99 [facility] Comment on above: Result Comment: [place] ANDRES Performed By: #### 2 [id number] #### [facility] [address] [place] [address] Glucose [Mass/Vol] 262 mg/dL High 55-99 [facility] Comment on above: Result Comment: [place] ANDRES Performed By: #### 2 [id number] #### [facility] [address] [place] [address] Glucose [Mass/Vol] 192 mg/dL High 55-99 [facility] Comment on above: Result Comment: [place] ANDRES Performed By: #### 2 [id number] #### [facility] [address] [place] [address] Glucose [Mass/Vol] 202 mg/dL High 55-99 [facility] Comment on above: Result Comment: [place] ANDRES Performed By: #### 2 [id number] #### [facility] [address] [place] [address] Glucose [Mass/Vol] 249 mg/dL High 55-99 [facility] Comment on above: Result Comment: [place] ANDRES Performed By: #### 2 [id number] #### [facility] [address] [place] [address] Glucose [Mass/Vol] 384 mg/dL High 55-99 [facility] Comment on above: Result Comment: [place] ANDRES Performed By: #### 2 [id number] #### [facility] [address] [place] [address] Consultation Noteon 02-20-20 24 Consultation Note Patient: SHAHANA GRACE Age: 74 years Sex: Female : 1950 Associated Diagnoses: None Author: Glynn DENT MD Chief Complaint 02/19/2024 20:18 EDT Hyperglycemia 02/19/2024 13:28 EDT pt presents to ed via [facility] d/t hyperglycemia. pt reports not feeling well [...] BID, # 10 tab(s), Refills(s) 0, Pharmacy: [facility] #72, 160.5, cm, 08/05/23 13:21:00 EST, Height/Length Dosing, 83, kg, 08/05/23 13:21:00 EST, Weight Dosing Klor-Con/EF 25 mEq oral tablet, effervescent: 25 mEq = 1 tab(s), Oral, Daily, dissolve in 4 ounces of water, # 30 tab(s), Refills(s) 10, Pharmacy: [facility] #72, 158, cm, 02/08/23 12:39:00 EDT, Height/Length Dosing, 82, kg, 02/08/23 12:39:00 EDT, Weight Dosing Liver panel: Liver panel, Print Requisition, Supply Metoprolol tartrate 50 mg Tab: 50 mg = 1 tab(s), Oral, BID, # 120 tab(s), Refills(s) 0, Pharmacy: [facility]/pharmacy #[id number], 157.5, cm, 06/10/21 10:56:00 EDT, Height/Length Dosing, 79.4, kg, 06/10/21 10:56:00 EDT, Weight Dosing NS Flush 10 mL: See Instructions, 60 EA, Refill(s) 0, 10 mL IV Pushprior to and after administration of fluconazole and as needed Vesicare 10 mg Tab: 10 mg = 1 tab(s), Oral, Daily, # 14 tab(s), Refills(s) 0, Pharmacy: [facility] #72, 158, cm, 05/09/23 8:54:00 EDT, Height/Length Dosing, 90.4, kg, 05/09/23 8:54:00 EDT, Weight Dosing lisinopril 5 mg Tab: 5 mg = 1 tab(s), Oral, BID, # 120 tab(s), Refills(s) 0, [id number], 157.5, cm, 06/10/21 10:56:00 EDT, Height/Length Dosing, 79.4, kg, 06/10/21 10:56:00 EDT, Weight Dosing meclizine 12.5 mg Tab: 12.5 mg = 1 tab(s), Oral, TID, PRN for dizziness, # 15 tab(s), Refills(s) 0, Pharmacy: [facility] #72, 157, cm, 11/13/22 23:40:00 EDT, Height/Length Dosing, 83.2, kg, 11/13/22 23:40:00 EDT, Weight Dosing Documented Medications Documented Basaglar KwikPen 100 units/mL subcutaneous solution: 40 unit(s), SubCutaneous, qAM, Refills(s) 0, Blood glucose Plavix 75 mg Tab: See Instructions, Mo (more content not included)... Normal [facility] Comment on above: Result Comment: Elec tronically Signed By: JAILENE CHISHOLM, Glynn Neff.br\Date and Time Signed: 02/20/24 10:48 EDT ED Note-Physicianon 02-20-20 ED Note-Physician Basic Information Time Seen: Cj CASTANEDALuis 02/19/2024 13:34 Chief Complaint pt presents to ed via [facility] d/t hyperglycemia. pt reports not feeling well [...] mL, Inject (more content not included)... Normal [facility] Comment on above: Result [...] SHAHANA GRACE/Sex: 1950 Female Med Rec #: [id number] Physician: Glynn ALARCON DO Financial #: [id number] Pt. Type: I Room/Bed: N305 Admit/Disch: 02/19/24 [...] Entry 3 Case Attendee MD Ingrid, Jossy DETN MD, Glynn Reid RN, Shara Muñiz Role Performed Anesthesiologist of Surgeon - Primary Biological Photographer - Primary Record Time In 02/20/24 10:16:00 [...] RT(R), Fallon Role Performed Scrub - Primary [employer] Member Time In 02/20/24 10:16:00 02/20/24 10:16:00 02/20/24 [...] and tissue Entry 1 Skin Integrity Intact, Jobos, Warm, and Skin Abnormality No Dry Outcomes Met? Yes Last Modified By: Shara Reid RN 02/20/24 11:11:55 Post-Care Text: The patient is free from signs and symptoms of injury caused by extraneous objects Patient Positioning FT Pre-Care Text: Identi (more content not included)... Normal [facility] Main OR PACU I Recordon 01-29 Main OR PACU I Record PACU Phase I Document Type FT Summary Primary Physician: Glynn DENT MD Finalized Date/Time: 02/20/24 11:40:13 Pt. Name: SHAHANA GRACE/Sex: 1950 Female Med Rec #: [id number] Physician: Glynn ALARCON DO Financial #: [id number] Pt. Type: I Room/Bed: [place] [address] Admit/Disch: 02/19/24 13:27:15 - Institution: Case Times [...] By: Fannie Marcos RN 02/20/24 11:40 Normal [facility] Main OR Preoperative Recordo n 02-20-2024 Main OR Preoperative Record Holding Area Document Type FT Summary Primary Physician: Glynn DENT MD Finalized Date/Time: 02/20/24 13:32:52 Pt. Name: SHAHANA GRACE David Echavarria/Sex: 1950 Female Med Rec #: [id number] Physician: Glynn LAARCON DO Financial #: [id number] Pt. Type: I Room/Bed: [place] [address] Admit/Disch: 02/19/24 13:27:15 - Institution: Case Times [...] By: Shara Reid RN 02/20/24 13:32 Normal [facility] Monitor Recordon 02-20-2024 Monitor Record [id number]# 1.00TIFF Normal [facility] Monitor Record [id number]# 1.00TIFF Normal [facility] Monitor Record [id number]# 1.00TIFF Normal [facility] Monitor Record [id number]# 1.00TIFF Normal [facility] Monitor Record [id number]# 1.00TIFF Normal [facility] Monitor Record [id number]# 1.00TIFF Normal [facility] Operative Reporton Operative Report Patient: SHAHANA GRACE Age: 74 years Sex: Female : 1950 Associated Diagnoses: None Author: Glynn DENT MD Postoperative Information Procedure: 1. Cystoscopy. 2. Bilateral retrograde pyelogram. 3. Placement of 6 American variable length right ureteral stent. #4. Extraction [...] ureter sent for stone analysis. Prosthesis: 6 American variable length right ureteral stent. . Estimated [...] 2% lidocaine gel per urethra. A 22 American Stortz cystoscope was passed per urethra and into the bladder. Careful panendoscopy in the bladder revealed diffuse cystitis with copious inflammatory debris on the base of the bladder. This was irrigated out. There was no evidence of any tumors or stones within the bladder. I then passed a 8 American cone-tip catheter through the scope and cannulated [...] the kidney. I then slid a 6 American variable length ureteral stent over the wire [...] her last hospitalization.. Anesthesia type: General. Normal [facility] Comment on above: Result [...] mGy = na DAP = na Normal [facility] XR Urography Retrograde Bila teralon 02-20-2024 [...] mGy = 12.80 DAP = 1080.56 Normal [facility] eGFRon 02-20-2024 eGFR 24 mL/min/1.73 m2 Low >=59 [facility] Comment on above: Order Comment: Order added by Discern Expert. Performed By: #### 1 [id number] #### [facility] [address] [place] [address] BMPon 02-19-2024 Calcium [Mass/Vol] 9.2 mg/dL Normal 8.9-11.1 [facility] Comment on above: Performed By: #### 2 349881 #### [facility] [address] [place] [address] Chloride [Moles/Vol] 103 mmol/L Normal 101-111 [facility] Comment on above: Performed By: #### 2 925586 #### [facility] [address] [place] [address] CO2 [Moles/Vol] 25 mmol/L Normal 21-31 [facility] Comment on above: Performed By: #### 2 761465 #### [facility] [address] [place] [address] Potassium [Moles/Vol] 4.4 mmol/L Normal 3.5-5.3 [facility] Comment on above: Performed By: #### 2 480023 #### [facility] [address] [place] [address] Sodium [Moles/Vol] 141 mmol/L Normal 135-145 [facility] Comment on above: Performed By: #### 2 837291 #### [facility] [address] [place] [address] Glucose [Mass/Vol] 559 mg/dL Abnormal 55-199 [facility] Comment on above: Result Comment: Crit ical Result [id number] Called to and read back by: MADELINE FERNANDEZ at: 02/19/2024 14:58:18 by:PETE Critical Result Verified by Repeat Analysis Performed By: #### 2 [id number] #### [facility] [address] [place] [address] Anion gap [Moles/Vol] 17 mmol/L High 6-16 [facility] Comment on above: Performed By: #### 2 144719 #### [facility] [address] [place] [address] Creatinine [Mass/Vol] 2.1 mg/dL High 0.5-1.3 [facility] Comment on above: Performed By: #### 2 049983 #### [facility] [address] [place] [address] Urea nitrogen [Mass/Vol] 35 mg/dL High 5-21 [facility] Comment on above: Performed By: #### 2 648019 #### [facility] [address] [place] [address] Urea nitrogen/Creatinine [Mass ratio] 17 No Units Normal 10-20 [facility] Comment on above: Performed By: #### 2 969482 #### [facility] [address] [place] [address] BOHBon 02-19-2024 Beta HB Qnt 0.72 mmol/L High 0.02-0.27 [facility] Comment on above: Performed By: #### 2 [id number] #### [facility] [address] [place] [address] CBC w/ Auto Diffon 4 Basophils/100 WBC (Bld) 0.2 % Normal 0.0-2.0 [facility] Comment on above: Performed By: #### 2 982038 #### [facility] [address] [place] [address] Basophils/Leukocytes Auto (Bld) [Pure # fraction] 0.0 E9/L Normal 0.0-0.2 [facility] Comment on above: Performed By: #### 2 879237 #### [facility] [address] [place] [address] Eosinophils (Bld) [#/Vol] 0.0 E9/L Normal 0.0-0.5 [facility] Comment on above: Performed By: #### 2 637269 #### [facility] [address] [place] [address] Eosinophils/100 WBC (Bld) 0.0 % Normal 0.0-8.0 [facility] Comment on above: Performed By: #### 2 481319 #### [facility] [address] [place] [address] Erythrocyte distribution width (RBC) [Ratio] 13.5 % Normal 10.9-14.2 [facility] Comment on above: Performed By: #### 2 615468 #### [facility] [address] [place] [address] Hematocrit (Bld) [Volume fraction] 54.0 % High 34.0-46.0 [facility] Comment on above: Performed By: #### 2 192367 #### [facility] [address] [place] [address] Hemoglobin (Bld) [Mass/Vol] 17.8 g/dL High 12.0-16.0 [facility] Comment on above: Performed By: #### 2 177838 #### [facility] [address] [place] [address] Lymphocytes (Bld) [#/Vol] 0.6 E9/L Low 1.0-4.0 [facility] Comment on above: Performed By: #### 2 870476 #### [facility] [address] [place] [address] Lymphocytes/100 WBC (Bld) 4.0 % Low 14.0-50.0 [facility] Comment on above: Performed By: #### 2 317311 #### [facility] [address] [place] [address] MCH (RBC) [Entitic mass] 30.5 pg Normal 27.0-34.0 [facility] Comment on above: Performed By: #### 2 653842 #### [facility] [address] [place] [address] MCHC (RBC) [Mass/Vol] 33.0 g/dL Normal 31.4-36.0 [facility] Comment on above: Performed By: #### 2 408904 #### [facility] [address] [place] [address] MCV (RBC) [Entitic vol] 92.2 fL Normal 80.0-100.0 [facility] Comment on above: Performed By: #### 2 220750 #### [facility] [address] [place] [address] Monocytes (Bld) [#/Vol] 0.8 E9/L Normal 0.2-1.0 [facility] Comment on above: Performed By: #### 2 512758 #### [facility] [address] [place] [address] Neutrophils (Bld) [#/Vol] 12.9 E9/L High 2.0-7.5 [facility] Comment on above: Performed By: #### 2 121898 #### [facility] [address] [place] [address] Neutrophils/100 WBC (Bld) 90.2 % High 36.0-75.0 [facility] Comment on above: Performed By: #### 2 264926 #### [facility] [address] [place] [address] Platelet mean volume (Bld) [Entitic vol] 8.2 fL Normal 6.4-10.8 [facility] Comment on above: Performed By: #### 2 145342 #### [facility] [address] [place] [address] Platelets (Bld) [#/Vol] 140.0 E9/L Low 150.0-500.0 [facility] Comment on above: Performed By: #### 2 765465 #### [facility] [address] [place] [address] RBC (Bld) [#/Vol] 5.9 E12/L Normal 4.3-5.9 [facility] Comment on above: Performed By: #### 2 [id number] #### [facility] [address] [place] [address] WBC corrected for nucl RBC Auto (Bld) [#/Vol] 14.3 E9/L High 4.0-11.0 [facility] Comment on above: Performed By: #### 2 534084 #### [facility] [address] [place] [address] CHEMISTRYOrdered By: SYSTEM SYSTEM on 02-19-2024 Lactic [...] Sensitivity Troponin I Instructions For Use, Jairo P[place], March 2018) COAGULATIONOrdered By: Matt Benitez on 02-19-2024 aPTT Coag (PPP) [Time] 23.4 s Low 25.1 - 36.5 second(s) [facility] Auto Coag Comment on above: [...] the same coagulation reagent and instrumentation as [facility]. Currently there are no coagulation studies available worldwide for children to 14 days, and no normal ranges. Heparin therapeutic range (represented by Anti-Factor Xa activity of 0.2 - 0.4 U/mL) corresponds to PTT of 56.6 - 109.0 sec. INR Coag (PPP) [Relative time] 0.93 {INR} Invalid Interpretation Code [facility] Auto Coag Comment on above: Interpretive Data: I NR results are specifically intended to assess patients stabilized on long-term Anticoagulation therapy suggested INR s Less Intensive Anticoagulation 2.0 3.0 Conventional Range 3.0 4.5 PT Coag (PPP) [Time] 10.4 s Normal 9.4 - 1 2.5 second(s) [facility] [place] [facility] Comment on above: [...] the same coagulation reagent and instrumentation as [facility]. Currently there are no coagulation studies available worldwide for children to 14 days, and no normal ranges. Capillary Glucose POCon 01-29 Glucose [Mass/Vol] 419 mg/dL High 55-99 [facility] Comment on above: Result Comment: Modesto vanegas RN/ Performed By: #### 2 [id number] #### [facility] [address] [place] [address] Glucose [Mass/Vol] 426 mg/dL High 55-99 [facility] Comment on above: Performed By: #### 2 [id number] #### [facility] [address] [place] [address] Glucose [Mass/Vol] 436 mg/dL High 55-99 [facility] Comment on above: Result Comment: Sheryl minda Meter Performed By: #### 2 [id number] #### [facility] [address] [place] [address] Consent for Treatmenton 01-29 Consent for Treatment [id number] .00TIFF Normal [facility] ED Clinical Summaryon 2023 ED Clinical Summary [address] [address] ED Clinical Summary Person Information Name: SHAHANA GRAEC Diane/[facility] Age: 74 Years : 1950 Sex: Female Language: Luxembourger PCP: ALBERTINA ARNDT DO Marital Status: Visit Id: Visit Reason: Polydipsia; Nausea; Hyperglycemia; hyperglycemia Speciality: Acuity: 3 Enc Type: Inpatient Med Service: Emergency Arrival: 02/19/2024 13:27:15 Discharge: LOS: 000 06:38 Checkin: 02/19/2024 13:27:15 Checkout: 02/19/2024 20:05:37 Dispo Type: Admitted as IP to this [facility] EVENTS: Event Name Event Status Request Date/Time [...] 02/19/2024 19:56:25 02/19/2024 19:56:25 02/19/2024 19:56:26 ADDRESS: [address] [place] [address] [phone] PHYS DOC NOTES: MEDICAL INFORMATION: Prescriptions Given: [...] Tablets By (more content not included)... Normal [facility] ED Patient Education Noteon 02-19-2024 ED Patient Education Note Normal [facility] ED Patient Summaryon 024 ED Patient Summary [address] [address] Patient Discharge Instructions Person Information Name: SHAHANA GRACE Age: 74 Years Arrival Date: 02/19/2024 13:27:15 Discharge Diagnosis: 1:GIOVANNY (acute kidney injury); 2:Nausea; 3:Abdominal pain; 4:Hyperglycemia; 5:UTI (urinary tract infection); 6:Hypertensive crisis; 7:Kidney stone on right side; 8:Hydronephrosis, right Primary Care Physician: ALBERTINA ARNDT DO Provider Information Primary Provider: Rose Alvarado M.D. Advanced Motor Equipment Captain:Luis Corona PA-C The exam and treatment you received in the Emergency Department were for an urgent problem and are not intended as complete care. It is important that you follow up with a doctor, nurse practitioner, or physician?s bilingual sales assistant for ongoing care. If your [...] opioids can be used to help relieve ywdncglh-ai-wvubkh pain and are often prescribed following a [...] be struggling with addiction, tell your health hospice spiritual care coordinator and ask for guidance or call [facility]?S National Helpline at [phone]. v S (more content not included)... Normal [facility] EMS Documentationon 02-19-20 24 EMS Documentation Please click on link to see report [id number] CiX5+prnDQolQUJDcGRmI [id number] 1XUIiER9MxCNOdATX5Ok5 PVYvnFFm6FEJcVA9FR3su QAJqWFPvFm4LhT7qNVAet jFwZUUMZ65aNQltByHhRE ilDXGgSXn9TaXAHx6jEYV gICAgICAgICAgICAgICAg ICAgICAgICAgICAgICAgI CAgICAgICAgICAgICAgIC AgICAgICAgICAgICAgICA gICAgICAgICAgDQplbmRv IxvBFv3GvQBqLk6COeJdM jUNCjAwMDAwMDAwMzIgMD FhKTVdnq8QISNtBAFvETG 1MSAwMDAwMCBuDQowMDAw XTBaFFi7NOJwPCGjDB5NW yGqMEBgBUT3YRPzAWDmOT Gzfc3RFPVuBFGfFCq3EJH wMDAwMCBuDQowMDAwMDAy XyXcOSEdOXXwJF2NFsXjW DAwMDIyOTUgMDAwMDAgbg 0VPZRiXESuVeC4ZOFfZAI wMCBuDQowMDAwMDAyNDI0 ORCySIYeIV9SDdVnUNIjR QS2SVPmJKGrKBRxmy8JHI AwMDAwMjgyOSAwMDAwMCB hMJtxRBRbNTYqSIc2EUEm BCLwJV8LZqUtTHNoZIZ7F wWoDCNeITZxlk1GYBVwTB AwMzYyMCAwMDAwMCBuDQo wMDAwMDAzODYxIDAwMDAw HB6XMeQfFJGyLZAzXALzN JXcPTEhuz3HXQJkATNjXN R2ZrUzLOOkAHXjWYvmFWH dVVH9CkM5LTJhNTUfHF4U YuHqBLHhGVU1WKPxLQMcG GAowr6JFKAhCZNyOAQ2VA AwMDAwMCBuDQowMDAwMDA 3RMS9IAFdCVGcGM7NTgYg TMEoHDP5MTBmRLOgUURgg e9BSURxJQEfTKKxXbZfGM AwMCBuDQowMDAwMDUwMjQ 5PPFoXHYyJV5ZGzDbDXUy RYuzNCAtPEGqAJCozy7Ka XXbjAyfgq4ZCRjLF4uHHK x5CJDUCBMODJJAGjDENfm iUJI1YIMjSMPLKXHhUODI MTY+Sxw4QSY2CBevFwA4K 8P6MQSMLYO1Rxx1EMGTQm EfSzH8ZO8jTt3TlzU5YKC 6AKhkIbctWh9vqBQiWaQx TFIZO2NegdYaHXZOD9Hyk HCcXWPbQ3LWESR4Zx83Sj kpiBtECLF7SGGHITwuZE4 RFnrLJyJqIZnhDh29V9ZD s8D0GdUhX4EMlFbQixZHC ZivE9wDfMY4o6usdEzVrQ NGbXlkOGdJcndPalFSQUl mHFZLbR94xxaEV4FqASa8 M8OZXp9CHYlxVpVsbH1Ug JxtXPQ6dP0yRLLYYHgOEt jkTH1VZXQASPb4RBm+Astrid gICAgICAgICAgICAgICAg ICAgICAgICAgICAgICAgI CAgICAgICAgICAgICAgIC AgICAgICAgICAgICAgICA gICAgICAgICAgICAgICAg ICAgICAgICAgICAgICAgI CAgICAgICAgICAgICAgIC AgICAgICAgICAgICAgICA gICAgICAgICAgICAgICAg ICAgICAgICAgICAgICAgI CAgICAgICAgICAgICAgIC AgICAgICAgICAgICAgICA gICAgICAgICAgICAgICAg ICAgICAgICAgICAgICAgI CAgICAgICAgICAgICAgIC AgICAgICAgICAgICAgICA gICAgICAgICAgICAgICAg ICAgICAgICAgICAgICAgI CAgICAgICAgICAgICAgIC AgICAgICAgICAgICAgICA gICAgICAgICAgICAgICAg ICAgICAgICAgICAgICAgI CAgICAgICAgICAgICAgIC AgICAgICAgICAgICAgICA gICAgICAgICAgICAgICAg ICAgICAgICAgICAgICAgI CAgICAgICAgICAgICAgIA 4Nm2KjkcD0vcFdPKygWSs gWZYLCw0KAXgfJwOyCB9u tx0XVOuID82cgRCbONTzF YQxNLFbBuncM7XrdeTpzC uthlHbIhNdCOBTDo7QvFU EZQxfO7J2oKccJBWnGElx SCJCBs3DIVusLT8iOHYjE UYiIc5xYYncVNRsKRSxHP saYNATWt1QgXImRL0YHVD uiW9qTk7+DQplbmRvYmoN Nh1IGiNlPKRnOspQKgs6T d8KbXe0BTPvG2GtWUJkBK Mrs0TpZj1VIN9coVayKTN aPp1TOBXwSUn+Fx2He8Ej QNWlJDd3vFHoHYCuWCQkG zZoILTfBBHcwQHJOSH2VC OwPWriyQTDlM1DkNCHAAn AlOdlYHyWDaTFgFgaLKIL fwpEoZNcDNTh3cR2ENGwI EZvHTM0lFKwKJ6S9jnTvc 2CJmPw38S4X3kSuecI1Kh OTWw4G0TyNpnKuVDZeQOD HkOtAK8rikLyR4BcBouQV I4eZHpEObUbNTT8ogBohB 5NYI6uw7IdTQzNXgO4JCD kp9EaUSw3SDlpK78goGKb fELcEcUuKPApUu9XC92lR ZbkWd79ECfyOLMdFgZcSG g7Mb4HU7QpepFehDHxUOE eZPLVN0Vbw355daYkzdJ6 KCnpYL3ducPweHJ4IPcfT WFiYzYgMjUgMCBSCj4+Cj 4+Np5ByKEzYV6BUKomUx6 +LSosezPcVvmBOd9NQuYa NIPrGkfNWma0Wx0UGv56P TcaHJSvMnVuLUt0Og8TU3 ZpbHRlciAvRmxhdGVEZWN dBNUAW7iczei7kLE7Zbdl JrPzx1BuT8BpATl8Df6CG 0SpPHP4WYy9Vh4JYZUoLz X2MdSbYCDJNd4TOf7KI1Y 4DkD2tNLrM9Xtsw8DY1Q0 jZJaR5vLBkdsC3UVDv6BV uV6ppGxmD0FsLpvpxWbZr TlMjRQMFUwtTRSMLcwUih M4cVVV6za4LZKl6XfMjFF KOKDAWno5DeWeMR7x6oR1 wGjFccJeRJqnzyRa4aKlC 4DQ3lB2L9ZEB7dz8NlHJY eJMvgljWfKjnBGp0ZQwVr ZYWpFpsJHww3Jo2PQJVrH z9ywJJdMi7NRKOfQy6QYr ExQh3KWtNjSa5AEtHiPw7 IIGL8Jp3SERM7zaXtYp6h YSAxCj4+DQplbmRvYmoNC f0MPidhGYIfOykZDft6Fu 7HRPUbJx4vaXKmVn9tXNE xCj4+NDgzrxOcRosDWe0G YlgvDNOoAuyBWfw5Vo8OU NJiMs0lgSUjOg6DRVVwCm 3XUjFsDu4TTqPvVk8URpC wGf0RKGV1Or6SEOR1jdWv Bz4lJLTaSe7+DQplbmRvY qmZAx1DOrzcLMTcAlgPXe d2Cz8JHNIxVk5ucXJmO5D SCM8CV1PqgAPxETXSQPbV Gb8Of3moXGBWR4Vrh6Kqj aTitaOVc996olNeGaIkJZ RHQOskJI9ao1IspemlQ9r sHF88iQU8BRiTP1K6PuB3 oJYdH8W7nZBzGd5Om1Ywk SUmSEKtNxMuUFAVLf9SbS VoEA9Aj754Ih2+DQplbmR eHhtSCe1BQmCuGQGaVunO Frq6Vx8GFJWdSn4ggDRxB 9AIYJ6JX4RpzRFwJCECPX xRUt0Df3boXEIZZ2FICGM 0g7MudNyiJv1mWGsWE35h MENqwA3bIPgYYALzaBr4q PvJE7EyH7qjxZP5IDdVLT 5iQEuXO3K5iDEaCV2claS gMAo+LezoJ7rFIS4APDEB NFCnL3hkXU32fXP7Vx1VN mItRx4Zl162NZXlC1ZmbJ OwubJcUMMmUYMUD5E2EgL 3oEBvA8REIWDhyaGEcNWy EklyOGkwRBDgIv7ccYdyB iJyWAB7BhW5DMFiGSb8Cu ZdCj4+DQplbmRvYmoNCg0 HAzTmXEKuZwyWDio2Za1S p0RqtbUiHKWxLrDjHQNwQ k2UFJTCTZiczQNxKXfcMo m2Llv4Kp2YUMUnVG79DAG qTS8lEST2NkupAnfhI0Jm FhQHU2XierTXLl00WDsnV BldWfg4BKTwRY50HMArBB P6LgInMxFrAnR6JIP5KIH bZmPoJVpbZGHqAs7Rz669 VsqbAQQwJYJgOHTWAt9Yn 668GcIvESYqL4NLJL2LT0 TjvWQtGWAWVXmUNz6Mc1m pFTAUL0z7VOjjQ7ZhS3hu IZDLM0E0YB5ETXo7QcX3F Bq0Ve9LeLPjPB2Wx862QQ LoX2RdbTNocxs+Ng0WMP1 qs3UgOFvDMfKmHFXuy7Bo WKt1ACclXyxesDXxBH0Qm DK8VJSlE81nGKamRHNoR2 SmHZB8Lvf+Ya1Da7IrGNV tPMc8tE9Wd35UGSBG1/6K AdnHGVMb9pJu3zVUDDiOl I0E6DN4PNjtdDX/XzNDE6 mMSHlx291SdDYbb5N5XYC 3P6oGA/TGao/TePMKocOr oDFJjF4GQ2GxIq7KLFM31 xRwqG0/kyFLZF2qsyt+hs 1Bjx0+ieTNa/TGXmHzdWo iNzfnfnBAGyAVVQUa+5j0 0rrXdkBIyLatdeybMG+j5 2K6vL1YAM23BsLynYfj1S w9ohLX16wxgUGKQhI0V70 jD9ot94wDZc/qNJVpRbRn abwcMSmiEVkOaAss3DHc/ 5f3+NqYWDtd1NRzErvzsG ji+TTHp5ZENSfaMJcJoli YrIGUTIaGbG5R9j20rcRL LH++3OJ6iupybdeiSWFxn lmisXi/lZj9rqE9c7i0oI yKVwTsCNF3bmDeaI8SOA9 uz3QxMLhHXlUvVDJve9Si FTi3DHrfBiDcWEFvolUwX 9wZJbXXHQnWt8GmpGXhFh Q7KBSBHVlaWYOfZ9SrCPL udEZvbnRzIFszNCAwIFJd Mk9IgdObWEdgObYnYVUhq aJfzWsvVAetB8GndYguQZ KtCFfsUBTFO6SsGO7tR52 iUWIvEaLgWIZVD2C4cRCw Y6KxccLPVi3IDpSpEU2wx l3XUYwwKBSxXQ7cvi5LWV tEJ2Pio5PBg256JV7TIFT XAH5zD146ctztef3je4IC SPQWK2SZLXO2e4YicWbaX h6jNXwUM34bRJIqgP1bXZ aWGUBruIk5dKsAY6KnF7m dyUE6SZ (more content not included)... Normal [facility] EMS Documentation Please click on link to see report Normal [facility] Comment on above: Result Comment: Miss ing Attachment - total size limit for all attachments exceeded [email or web address].pdf Can be viewed in source system Hep Fun Panelon 02-19-2024 Albumin [Mass/Vol] 4.1 g/dL Normal 3.3-5.0 [facility] Comment on above: Performed By: #### 2 [id number] #### [facility] [address] [place] [address] Albumin/Globulin (S) [Mass conc ratio] 1.2 Normal 1.1-2.2 [facility] Comment on above: Performed By: #### 2 [id number] #### [facility] [address] [place] [address] ALP [Catalytic activity/Vol] 82 Int._Unit/L Normal 21-98 [facility] Comment on above: Performed By: #### 2 [id number] #### [facility] [address] [place] [address] ALT No additional P-5'-P [Catalytic activity/Vol] 11 Int._Unit/L Normal 6-46 [facility] Comment on above: Performed By: #### 2 [id number] #### [facility] [address] [place] [address] AST [Catalytic activity/Vol] 11 Int._Unit/L Normal 5-43 [facility] Comment on above: Performed By: #### 2 [id number] #### [facility] [address] [place] [address] Bilirubin [Mass/Vol] 1.1 mg/dL Normal 0.0-1.1 [facility] Comment on above: Performed By: #### 2 [id number] #### [facility] [address] [place] [address] Bilirubin.direct [Mass/Vol] 0.2 mg/dL Normal 0.0-0.4 [facility] Comment on above: Performed By: #### 2 [id number] #### [facility] [address] [place] [address] Bilirubin.indirect [Mass or moles/Vol] 0.9 mg/dL Normal 0.1-0.9 [facility] Comment on above: Performed By: #### 2 [id number] #### [facility] [address] [place] [address] Globulin (S) [Mass/Vol] 3.3 g/dL Normal 1.4-4.0 [facility] Comment on above: Performed By: #### 2 [id number] #### [facility] [address] [place] [address] Protein [Mass/Vol] 7.4 g/dL Normal 6.0-7.8 [facility] Comment on above: Performed By: #### 2 [id number] #### [facility] [address] [place] [address] Laboratory - Microbiology an d Antimicrobial susceptibilityOrdered By: Awilda Pritchard on 02-19-2024 Bacteria identified Cx Nom (U) <10,000 cfu/ml Mixed skin contaminants [facility] Lactic Acidon 02-19-2024 Lactic Acid Lvl 1.5 mmol/L Normal 0.5-2.2 [facility] Comment on above: Performed By: #### 2 [id number] #### [facility] [address] [place] [address] Lipase Levelon 02-19-2024 Lipase [Catalytic activity/Vol] 54 U/L Normal 13-58 [facility] Comment on above: Performed By: #### 2 [id number] #### [facility] [address] [place] [address] Magnesiumon 02-19-2024 Magnesium [Mass/Vol] 2.2 mg/dL Normal 1.3-2.4 [facility] Comment on above: Performed By: #### 2 [id number] #### [facility] [address] [place] [address] Message from Medicareon 01-29 Message from Medicare [id number]# 1.00TIFF Normal [facility] Message from Medicare [id number]# 1.00TIFF Normal [facility] Monitor Recordon 02-19-2024 Monitor Record [id number]# 1.00TIFF Normal [facility] No Panel InformationOrdered By: [facility] MICRO[facility]OLOG[facility] on 02-19-2024 Blood Culture Charcoal No growth at 4 days. Final to follow at 7 days. [facility] Blood Culture Charcoal No growth at 4 days. Final to follow at 7 days. [facility] PT & PTTon 02-19-2024 aPTT Coag (PPP) [Time] 23.4 second(s) Low 25.1-36.5 [facility] Comment on above: Result Comment: Para [...] the same coagulation reagent and instrumentation as [facility]. Currently there are no coagulation studies available worldwide for children to 14 days, and no normal ranges. Heparin therapeutic range (represented by Anti-Factor Xa activity of 0.2 - 0.4 U/mL) corresponds to PTT of 56.6 - 109.0 sec. Performed By: #### 1 [id number] #### [facility] [address] [place] [address] INR Coag (PPP) [Relative time] 0.93 {INR} Invalid Interpretation Code [facility] Comment on above: Result Comment: INR results are specifically intended to assess patients stabilized on long-term Anticoagulation therapy suggested INR?s ?Less Intensive Anticoagulation? 2.0 ? 3.0 Conventional Range 3.0 ? 4.5 Performed By: #### 1 [id number] #### [facility] [address] [place] [address] PT Coag (PPP) [Time] 10.4 second(s) Normal 9.4-12.5 [facility] Comment on above: Result Comment: 15 [...] the same coagulation reagent and instrumentation as [facility]. Currently there are no coagulation studies available worldwide for children to 14 days, and no normal ranges. Performed By: #### 1 [id number] #### [facility] [address] [place] [address] Pre-Arrival Noteon Pre-Arrival Note Normal [facility] Progress Note-Nurseon 2023 Progress Note-Nurse spoke with PASCUAL Smith about pt's blood sugar and BP. Per Luis, wait 15-20 mins and check BP again after stopping fluids Normal [facility] RAD - Preliminary Cat Scan R eporton 02-19-2024 RAD - Preliminary Cat Scan Report [id number]#1 .00TIFF Normal [facility] Troponin 0 Hr.on 02-19-2024 Troponin HS 45.80 pg/mL Abnormal 10.10-27.10 [facility] Comment on above: Result Comment: Crit [...] High Sensitivity Troponin I Instructions For Use, [employer], March 2018) Performed By: #### 1 [id number] #### [facility] [address] [place] [address] Troponin 1 Hr.on 02-19-2024 Troponin HS 42.60 pg/mL Abnormal 10.10-27.10 [facility] Comment on above: Order Comment: 1446 [...] conjunction with clinical conditions of myocardial infarction. ([employer] High Sensitivity Troponin I Instructions For Use, [employer], March 2018) Performed By: #### 1 [id number] #### [facility] [address] [place] [address] UA with Cult Rflxon 02-19-20 24 Bacteria Auto Ql (U) 1+ /HPF Abnormal Trace [facility] Comment on above: Performed By: #### 4 [id number] #### [facility] [address] [place] [address] Bilirubin Ql (U) Negative Normal Negative [facility] Comment on above: Performed By: #### 4 [id number] #### [facility] [address] [place] [address] Clarity (U) Turbid Abnormal Clear [facility] Comment on above: Performed By: #### 4 [id number] #### [facility] [address] [place] [address] Color (U) Light-Yellow Normal Yellow [facility] Comment on above: Result Comment: Micr oscopic readings are only performed on those samples that meet specific criteria set forth by [facility]. Performed By: #### 4 [id number] #### [facility] [address] [place] [address] Epithelial cells.squamous Auto (Urine sed) [#/Area] 5-8 Invalid Interpretation Code [facility] Comment on above: Performed By: #### 4 [id number] #### [facility] [address] [place] [address] Glucose Ql (U) 4+ mg/dL Abnormal Negative [facility] Comment on above: Performed By: #### 4 [id number] #### [facility] [address] [place] [address] Hemoglobin Auto test strip (U) [Mass/Vol] 2+ mg/dL Abnormal Negative [facility] Comment on above: Performed By: #### 4 [id number] #### [facility] [address] [place] [address] Ketones Auto test strip Ql (U) Trace Abnormal Negative [facility] Comment on above: Performed By: #### 4 [id number] #### [facility] [address] [place] [address] Leukocyte esterase Auto test strip Ql (U) 500 Sergio/uL Abnormal Negative [facility] Comment on above: Performed By: #### 4 [id number] #### [facility] [address] [place] [address] Mucus Auto Ql (U) Negative Normal Negative [facility] Comment on above: Performed By: #### 4 [id number] #### [facility] [address] [place] [address] Nitrite Auto test strip Ql (U) Negative Normal Negative [facility] Comment on above: Performed By: #### 4 [id number] #### [facility] [address] [place] [address] pH (U) 5.0 [pH] Invalid Interpretation Code 5.0-9.0 [facility] Comment on above: Performed By: #### 4 [id number] #### [facility] [address] [place] [address] Protein Ql (U) 1+ mg/dL Abnormal Negative [facility] Comment on above: Performed By: #### 4 [id number] #### [facility] [address] [place] [address] RBC Ql (U) 31-75 Abnormal 0-3 [facility] Comment on above: Performed By: #### 4 [id number] #### [facility] [address] [place] [address] Specific gravity (U) [Rel density] 1.030 Invalid Interpretation Code 1.005-1.030 [facility] Comment on above: Performed By: #### 4 [id number] #### [facility] [address] [place], [place] [address] Urobilinogen (U) [Mass/Vol] Negative Normal Negative [facility] Comment on above: Performed By: #### 4 [id number] #### [facility] [address] [place] [address] WBC Auto (Urine sed) [#/Area] >75 Abnormal 0-5 [facility] Comment on above: Performed By: #### 4 [id number] #### [facility] [address] [place] [address] Yeast.budding Computer assisted Ql (U) 1+ CD:[id number] Abnormal [facility] Comment on above: Performed By: #### 4 [id number] #### [facility] [address] [place] [address] Type of Urine collection method Clean Catch Normal [facility] Comment on above: Performed By: #### 4 [id number] #### [facility] [address] [place] [address] URINALYSISOrdered By: SYSTEM SYSTEM on 02-19-2024 Bacteria [...] that meet specific criteria set forth by [facility]. Epithelial cells.squamous Auto (Urine sed) [...] Desc Clean Catch (02/19/24 4:54 PM) Normal [facility] UA Auto SS eGFRon 02-19-2024 eGFR 24 mL/min/1.73 m2 Low >=59 [facility] Comment on above: Order Comment: Order added by Discern Expert. Performed By: #### 1 [id number] #### [facility] [address] [place] [address] Prescriptions/Work Noteson 0 09-07-2023 Prescriptions/Work Notes [id number]# 1.00TIFF Normal [facility] IntraOperative Documentson 1 10-26-2022 IntraOperative Documents [id number]# 1.00TIFF Normal [facility] IntraOperative Documents [id number]# 1.00TIFF Normal [facility] Comment on above: Other Comment: error Calculus Analysison 08-15-20 23 Color (Stone) [place] Invalid Interpretation Code [facility] Comment on above: Performed By: #### 1 [id number] ####[facility] [address] [place] [address] Composition Comment Invalid Interpretation Code [facility] Comment on above: Result Comment: Perc entage (Represents the % composition) Performed By: #### 1 [id number] ####[facility] [address] [place] [address] Disclaimer: Comment Invalid Interpretation Code [facility] Comment on above: Result Comment: This test was developed and its performance characteristicsdetermined by [employer]. It has not been cleared or approvedby the Food and Drug Administration.Performed at: [address] [id number] PhD Ivan Ureña Performed By: #### 1 [id number] ####[facility] [address] [place] [address] Laboratory comment Hu (Report) Comment Invalid Interpretation Code [facility] Comment on above: Result Comment: Phys ulysses questions regarding Calculi Analysis contactSher[facility] ComplexCorp at: [phone]. Performed By: #### 1 [id number] ####[facility] [address] [place] [address] Please Note: Comment Invalid Interpretation Code [facility] Comment on above: Result Comment: Calc bernard report will follow via computer, mail or courierdelivery. Performed By: #### 1 [id number] ####[address] [address] Size (Stone) [Entitic vol] 3x4 Invalid Interpretation Code [facility] Comment on above: Result Comment: Mult iple pieces received. Dimensions of the largest piecereported. Performed By: #### 1 [id number] ####[address] [address] Specimen source subject Nom Comment Invalid Interpretation Code [facility] Comment on above: Result Comment: Not provided Performed By: #### 1 [id number] ####[address] [address] Stone Photo Comment Invalid Interpretation Code [facility] Comment on above: Result Comment: Phot ograph will follow under a separate cover Performed By: #### 1 [id number] ####[address] [address] Urate (Stone) [Mass fraction] 100 % Invalid Interpretation Code [facility] Comment on above: Performed By: #### 1 [id number] ####[address] [place] [address] Weight (Stone) 90 mg Invalid Interpretation Code [facility] Comment on above: Performed By: #### 1 [id number] ####[facility] [address] [place] [address] Prescriptions/Work Noteson 1 10-13-2022 Prescriptions/Work Notes [id number]# 1.00TIFF Normal [facility] Consent for Procedure/Surger yon 08-11-2023 Consent for Procedure/Surgery [id number]# 1.00TIFF Normal [facility] Progress Note-Physicianon Progress Note-Physician Normal [facility] Comment on above: Result Comment: Elec tronically Signed By: Ravinder Bojorquez Jr, DO\.br\Date and Time Signed: 08/08/23 10:09 EST Progress Note-Physicianon Progress Note-Physician Normal [facility] Comment on above: Result Comment: Elec tronically Signed By: Ravinder Bojorquez Jr, DO\.br\Date and Time Signed: 08/07/23 08:35 EST Consent for Anesthesiaon Consent for Anesthesia [id number]#1 .00TIFF Normal [facility] Discharge Instructionson Discharge Instructions [id number] .00TIFF Normal [facility] IntraOperative Documentson 1 10-07-2022 IntraOperative Documents [id number] [facility] Main OR Intraoperative Recor don 08-06-2023 Main OR Intraoperative Record Normal [facility] Preoperative Documentson Preoperative Documents [id number] [facility] CHEMISTRYOrdered By: Lab TONY User on 08-05-2023 POC Username FATIMAH HA Invalid Interpretation Code [facility] POC Subsection Sodium [Moles/Vol] [id number] mmol/L Invalid Interpretation Code [facility] POC Subsection Sodium [Moles/Vol] [id number] mmol/L Invalid Interpretation Code [facility] POC Subsection Capillary Glucose POCOrdered By: Lab ROPUser on 08-05-2023 Glucose [Mass/Vol] 155 mg/dL High 55-99 [facility] P OC Subsection Comment on above: Result Comment: Sheryl minda Meter No Coverage Given Result Comment: Sheryl minda MeterNo Coverage Given Performed By: #### 2 [id number] ####[facility] [address] [place] [address] Consent for Treatmenton Consent for Treatment [id number]#1 .00TIFF Normal [facility] Discharge Instructionson Discharge Instructions [facility] Comment on above: Result Comment: Elec tronically Signed By: Jerome MARCUM, Fatimah Pitt\.br\Date and Time Signed: 08/05/23 15:42 EST H&P Updateon 08-05-2023 H&P Update [id number]#1 .00TIFF Normal [facility] Inpatient Patient Summaryon 08-05-2023 Inpatient Patient Summary Normal [facility] Main OR PACU I Recordon Main OR PACU I Record [facility] Main OR Preoperative Recordo n 08-05-2023 Main OR Preoperative Record Normal [facility] Monitor Recordon 08-05-2023 Monitor Record [id number]# 1.00TIFF Normal [facility] Monitor Record [id number]# 1.00TIFF [facility] Operative Reporton Operative Report Normal [facility] Comment on above: Result Comment: Elec tronically Signed By: GEORGIE CHISHOLM, Orestes Muñiz\.br\Date and Time Signed: 08/05/23 15:18 EST Outpatient Surgery Discharge Instructionon 08-05-2023 Outpatient Surgery Discharge Instruction Normal [facility] Patient Education - Texton 1 10-06-2022 Patient Education - Text Normal [facility] URINALYSISOrdered By: Candis Soto on [...] PM) Normal Negative FT UA Auto SS [place].plasma/Lithi um.RBC (Bld) [Mass ratio] 21-30 /HPF Invalid Interpretation Code 0-3/HPF FT UA Auto SS Nitrite Ql (U) Negative (08/05/23 12:21 PM) Normal Negative [facility] UA Auto SS pH (U) 6.0 (08/05/23 12:21 PM) Normal 5.0 - 9.0 FT UA Auto SS Protein (U) [Mass/Vol] 2+ *ABN* (08/05/23 12:21 PM) Invalid Interpretation Code Negative [facility] UA Auto SS Specific gravity (U) [Rel density] 1.015 (08/05/23 12:21 PM) Normal 1.005 - 1.030 FT UA Auto SS UA Spec Desc Clean Catch (08/05/23 12:21 PM) Normal [facility] UA Auto SS Urobilinogen Qn (U) 0.1913812 {Isis'U}/dL Normal 0.0 - 1.0 EU/dL [facility] UA Auto SS WBC Auto Ql (U) 3+ *ABN* (08/05/23 12:21 PM) Invalid Interpretation Code Negative [facility] UA Auto SS WBC LM.HPF (Urine sed) [#/Area] /[HPF] Invalid Interpretation Code 0-5/HPF [facility] UA Auto SS Urinalysison 08-05-2023 Type of Urine collection method Clean Catch Normal [facility] Comment on above: Performed By: #### 1 [id number] ####[facility] [address] [place] [address] Bacteria LM Ql (Urine sed) 1+ /HPF Abnormal Trace [facility] Comment on above: Performed By: #### 1 [id number] ####[facility] [address] [place] [address] Bilirubin Ql (U) Negative Normal Negative [facility] Comment on above: Performed By: #### 1 [id number] ####[facility] [address] [place] [address] Clarity (U) CLOUDY Abnormal Clear [facility] Comment on above: Performed By: #### 1 [id number] ####[facility] [address] [place] [address] Color (U) YELLOW Normal Yellow [facility] Comment on above: Performed By: #### 1 [id number] ####[address] [address] Epithelial cells.squamous LM.HPF (Urine sed) [#/Area] 3-4 Normal 0-2 [facility] Comment on above: Performed By: #### 1 [id number] ####[facility] [address] [place] [address] Glucose Test strip (U) [Mass/Vol] Negative Normal Negative [facility] Comment on above: Performed By: #### 1 [id number] ####[facility] [address] [place] [address] Hemoglobin Ql (U) 2+ Abnormal Negative [facility] Comment on above: Performed By: #### 1 [id number] ####[facility] [address] [place] [address] Ketones (U) [Mass/Vol] Negative Normal Negative [facility] Comment on above: Performed By: #### 1 [id number] ####[facility] [address] [place] [address] [place].plasma/Lithi um.RBC (Bld) [Mass ratio] 21-30 Abnormal 0-3 [facility] Comment on above: Performed By: #### 1 [id number] ####[facility] [address] [place] [address] Nitrite Ql (U) Negative Normal Negative [facility] Comment on above: Performed By: #### 1 6707634 ####[facility] [address] [place] [address] pH (U) 6.0 [pH] Normal 5.0-9.0 [facility] Comment on above: Performed By: #### 1 5643697 ####[facility] [address] [place] [address] Protein (U) [Mass/Vol] 2+ Abnormal Negative [facility] Comment on above: Performed By: #### 1 [id number] ####[facility] [address] [place] [address] Specific gravity (U) [Rel density] 1.015 Normal 1.005-1.030 [facility] Comment on above: Performed By: #### 1 [id number] ####[facility] [address] [place] [address] Urobilinogen Qn (U) 0.2 {Isis'U}/dL Normal 0.0-1.0 [facility] Comment on above: Performed By: #### 1 [id number] ####[facility] [address] [place] [address] WBC Auto Ql (U) 3+ Abnormal Negative [facility] Comment on above: Performed By: #### 1 [id number] ####[facility] [address] [place] [address] WBC LM.HPF (Urine sed) [#/Area] /[HPF] Abnormal 0-5 [facility] Comment on above: Performed By: #### 1 [id number] ####[facility] [address] [place] [address] XR Abdomen 1 Viewon 08-05-20 23 XR Abdomen 1 View Normal [facility] XR Chest 2 Viewson 3 XR Chest 2 Views Normal [facility] Alanine Aminotransferaseon 1 10-05-2022 ALT [Catalytic activity/Vol] 15 U/L Normal 7-52 [facility] Comment on above: Performed By: #### A LT, AST, LIPID #### [facility] [address] Alanine aminotransferase [En zymatic activity/volume] in Serum or PlasmaOrdered By: Tal Florian on 08-04-2023 ALT [Catalytic activity/Vol] 15 U/L 7-52 [facility] Aspartate Amino Transferaseo n 08-04-2023 AST [Catalytic activity/Vol] 13 U/L Normal 13-39 [facility] Comment on above: Performed By: #### A LT, AST, LIPID #### [facility] [address] [place] [id number] [facility] Aspartate aminotransferase [ Enzymatic activity/volume] in Serum or PlasmaOrdered By: Tal Florian on 08-04-2023 AST [Catalytic activity/Vol] 13 U/L 13-39 [facility] Cholesterol [Mass/volume] in Serum or PlasmaOrdered By: Tal Florian on 08-04-2023 Cholesterol [Mass/Vol] 209 mg/dL 140-200 [facility] Comment on above: Chol less than 200 m g/dl low riskChol 201-239 mg/dl borderline riskChol 240 mg/dl and greater high risk Cholesterol in LDL Calc [Mas s/Vol]Ordered By: Tal Florian on 08-04-2023 Cholesterol in LDL [Mass/Vol] 116 mg/dL 0-100 [facility] Comment on above: LDL ATP III CLASSIFI CATIONLDL less than 100 mg/dL OptimalLDL 100-129 mg/dL Near or above optimalLDL 130-159 mg/dL Borderline highLDL 160-189 mg/dL HighLDL greater than 189 mg/dL Very high Cholesterol in VLDL Calc [Ma ss/Vol]Ordered By: Tal Florian on 08-04-2023 Cholesterol in VLDL [Mass/Vol] 35 mg/dL [facility] Lipid Panelon 08-04-2023 Cholesterol [Mass/Vol] 209 mg/dL High 140-200 [facility] Comment on above: Result Comment: Chol less than 200 mg/dl low risk Chol 201-239 mg/dl borderline risk Chol 240 mg/dl and greater high risk Performed By: #### A LT, AST, LIPID #### [facility] [address] [place] [address] [facility] Cholesterol in HDL [Mass/Vol] 58 mg/dL Normal 23-92 [facility] Comment on above: Result Comment: HDL CHOL ATP-III CLASSIFICATION Cardiovascular Risk HDL > or equal to 60 mg/dL LOW HDL < 40 mg/dL HIGH Performed By: #### A LT, AST, LIPID #### [facility] [address] Cholesterol.total/Ch olesterol in HDL [Mass ratio] 3.6 {ratio} Normal <5.0 [facility] Comment on above: Result Comment: PERF ORMED BY: [place] [address] PATHOLOGIST CHOIR ACCOMPANIST KEVIN SWARTZ M.D. Performed By: #### A LT, AST, LIPID #### [facility] [address] LDL Cholesterol,Calculat ed 116 mg/dL High 0-100 [facility] Comment on above: Result Comment: LDL ATP III CLASSIFICATION LDL less than 100 mg/dL Optimal LDL 100-129 mg/dL Near or above optimal LDL 130-159 mg/dL Borderline high LDL 160-189 mg/dL High LDL greater than 189 mg/dL Very high Performed By: #### A LT, AST, LIPID #### [facility] [address] [place] [address] Triglyceride w/Reflex 175 mg/dL High 0-149 [facility] Comment on above: Result Comment: TRIG ATP III CLASSIFICATION TRIG less than 150 mg/dL Normal TRIG 150-199 mg/dL Borderline high TRIG 200-500 mg/dL High TRIG greater than 500 mg/dL Very high Standard traceable to the Center for Disease Conrtrol and Prevention (CDC) test method. Performed By: #### A LT, AST, LIPID #### [facility] [address] VLDL CHOLESTEROL 35 mg/dL Normal [facility] Comment on above: Performed By: #### A LT, AST, LIPID #### [facility] [address] [place] [address] Serum or plasma high density lipoprotein (HDL) cholesterol measurementOrdered By: Tal Florian on 08-04-2023 Cholesterol in HDL [Mass/Vol] 58 mg/dL 23- [facility] Comment on above: HDL CHOL ATP-III CLA SSIFICATION Cardiovascular RiskHDL > or equal to 60 mg/dL LOWHDL < 40 mg/dL HIGH Serum or plasma total choles terol/high density lipoprotein (HDL) cholesterol mass ratOrdered By: Tal Florian on 08-04-2023 Cholesterol.total/Ch olesterol in HDL [Mass ratio] 3.6 {ratio} <5.0 [facility] Triglyceride [Mass/volume] i n Serum or PlasmaOrdered By: Tal Florian on 08-04-2023 Triglyceride [Mass/Vol] 175 mg/dL 0-149 [facility] Comment on above: TRIG ATP III CLASSIF ICATIONTRIG less than 150 mg/dL NormalTRIG 150-199 mg/dL Borderline highTRIG 200-500 mg/dL High TRIG greater than 500 mg/dL Very highStandard traceable to the Center for Disease Conrtrol and Prevention (CDC) test method. Consent for Treatmenton 07-01 Consent for Treatment [id number]#1 .00TIFF Normal [facility] XR Abdomen 1 Viewon 07-23-20 23 XR Abdomen 1 View Normal [facility] IntraOperative Documentson 09-15-2022 IntraOperative Documents [id number]# 1.00TIFF Normal [facility] Operative Reporton Operative Report [id number]#1 .00TIFF Normal [facility] Formson 07-11-2023 Forms [id number]#1 .00TIFF Normal [facility] ECG 12-Leadon 07-05-2023 ECG 12-Lead [id number]#1 .00TIFF Normal [facility] Auto Diffon 07-02-2023 Basophils/100 WBC (Bld) 1.0 % Normal 0.0-2.0 [facility] Comment on above: Order Comment: Order Added by Discern Expert. Performed By: #### 2 859033, 5573450, 80826630, 12944824, 3670747, 9504286, 8054270 ####[facility] [address] [place] [address] Basophils/Leukocytes Auto (Bld) [Pure # fraction] 0.1 E9/L Normal 0.0-0.2 [facility] Comment on above: Order Comment: Order Added by Discern Expert. Performed By: #### 2 186754, 9831042, 35470582, 58515534, 5385023, 3740720, 4192744 ####[facility] [address] [place] [address] Eosinophils/100 WBC (Bld) 2.6 % Normal 0.0-8.0 [facility] Comment on above: Order Comment: Order Added by Discern Expert. Performed By: #### 2 720402, 1540779, 53066060, 72825292, 3433028, 4532577, 6819898 ####[address] [place] [address] Eosinophils/Leukocyt es Auto (Bld) [Pure # fraction] 0.2 E9/L Normal 0.0-0.5 [facility] Comment on above: Order Comment: Order Added by Discern Expert. Performed By: #### 2 782843, 5249691, 33260596, 46144965, 3311174, 7982230, 6645037 ####[address] [place] [address] Lymphocytes/100 WBC (Bld) 21.4 % Normal 14.0-50.0 [facility] Comment on above: Order Comment: Order Added by Discern Expert. Performed By: #### 2 449047, 0865999, 44423371, 27870783, 6208840, 2673948, 7550263 ####[address] [place] [address] Lymphocytes/Leukocyt es Auto (Bld) [Pure # fraction] 1.9 E9/L Normal 1.0-4.0 [facility] Comment on above: Order Comment: Order Added by Discern Expert. Performed By: #### 2 523022, 3163417, 94778251, 40754837, 5481129, 5665976, 2175776 ####[address] [place] [address] Monocytes/100 WBC (Bld) 7.7 % Normal 4.0-14.0 [facility] Comment on above: Order Comment: Order Added by Discern Expert. Performed By: #### 2 266850, 8253690, 59211720, 61274229, 1945077, 9946259, 0586571 ####[address] [place] [address] Monocytes/Leukocytes Auto (Bld) [Pure # fraction] 0.7 E9/L Normal 0.2-1.0 [facility] Comment on above: Order Comment: Order Added by Christen Expert. Performed By: #### 2 762577, 7703266, 43495434, 80466514, 0865822, 2281787, 2106291 ####[address] [place] [address] Neutrophils/100 WBC (Bld) 67.3 % Normal 36.0-75.0 [facility] Comment on above: Order Comment: Order Added by Christen Expert. Performed By: #### 2 972611, 1722816, 70781341, 38873062, 1632359, 6681330, 3243824 ####[address] [place] [address] Neutrophils/Leukocyt es Auto (Bld) [Pure # fraction] 6.0 E9/L Normal 2.0-7.5 [facility] Comment on above: Order Comment: Order Added by Christen Expert. Performed By: #### 2 322743, 8059305, 07235736, 47794829, 3202289, 2265973, 6980449 ####[address] [place] [address] BUNon 07-02-2023 Urea nitrogen [Mass/Vol] 20 mg/dL Normal 5-21 [facility] Comment on above: Performed By: #### 2 939325, 8663559, 95433931, 51979405, 3849589, 1487952, 7408752 ####[facility] [address] [place] [address] CBC w/ Auto Diffon 3 Erythrocyte distribution width (RBC) [Ratio] 14.2 % Normal 10.9-14.2 [facility] Comment on above: Performed By: #### 2 207063, 9514673, 15062546, 89944566, 8363880, 4693253, 5437863 ####[facility] [address] [place] [address] Hematocrit (Bld) [Volume fraction] 43.0 % Normal 34.0-46.0 [facility] Comment on above: Performed By: #### 2 569675, 4830073, 97897157, 18037954, 4615537, 6804643, 4790524 ####[address] [place] [address] Hemoglobin (Bld) [Mass/Vol] 14.5 g/dL Normal 12.0-16.0 [facility] Comment on above: Performed By: #### 2 698323, 8116279, 13339496, 83891784, 6751205, 6831760, 6284880 ####[address] [place] [address] MCH (RBC) [Entitic mass] 30.1 pg Normal 27.0-34.0 [facility] Comment on above: Performed By: #### 2 293909, 6148752, 84408929, 20722801, 1337484, 0839211, 1132899 ####[address] [place] [address] MCHC (RBC) [Mass/Vol] 33.6 g/dL Normal 31.4-36.0 [facility] Comment on above: Performed By: #### 2 195589, 2268282, 02479827, 83810289, 0352820, 9502358, 5946164 ####[facility] [address] [place] [address] MCV (RBC) [Entitic vol] 89.8 fL Normal 80.0-100.0 [facility] Comment on above: Performed By: #### 2 657003, 9464913, 04602038, 09936826, 4903977, 0521234, 8740189 ####[address] [place] [address] Platelet mean volume (Bld) [Entitic vol] 7.9 fL Normal 6.4-10.8 [facility] Comment on above: Performed By: #### 2 957258, 9342269, 47804155, 49034354, 8783890, 4282830, 5065204 ####[address] [address] Platelets (Bld) [#/Vol] 228.0 E9/L Normal 150.0-500.0 [facility] Comment on above: Performed By: #### 2 495187, 3346817, 31852785, 48292142, 3772476, 6638008, 6382141 ####[address] [address] RBC (Bld) [#/Vol] 4.8 E12/L Normal 4.3-5.9 [facility] Comment on above: Performed By: #### 2 132294, 1964304, 55801689, 64738871, 6115827, 0093950, 1076100 ####[address] [place] [address] WBC corrected for nucl RBC Auto (Bld) [#/Vol] 8.9 E9/L Normal 4.0-11.0 [facility] Comment on above: Performed By: #### 2 340139, 7523669, 42034904, 00024456, 9571164, 6536357, 7786373 ####[address] [address] Consent for Treatmenton 11-0 Consent for Treatment [id number]#1 .00TIFF Normal [facility] Creatinineon 07-02-2023 Creatinine [Mass/Vol] 1.3 mg/dL Normal 0.5-1.3 [facility] Comment on above: Performed By: #### 2 003262, 2107179, 97950202, 03655664, 9050905, 8621470, 9239663 ####[facility] [address] [place] [address] Lyteson 07-02-2023 Anion gap [Moles/Vol] 16 mmol/L Normal 6-16 [facility] Comment on above: Performed By: #### 2 112579, 5319885, 48091509, 70773312, 0946614, 3321580, 6761375 ####[facility] [address] [place] [address] Chloride [Moles/Vol] 109 mmol/L Normal 101-111 [facility] Comment on above: Performed By: #### 2 400009, 9992444, 70717021, 67226094, 2024909, 9561475, 3173859 ####[facility] [address] [place] [address] CO2 [Moles/Vol] 24 mmol/L Normal 21-31 [facility] Comment on above: Performed By: #### 2 846151, 9018915, 97412587, 74438698, 2820372, 8931120, 0492082 ####[facility] [address] [place] [address] Potassium [Moles/Vol] 4.1 mmol/L Normal 3.5-5.3 [facility] Comment on above: Performed By: #### 2 627964, 6927600, 71670670, 94831265, 7358321, 4874211, 0339702 ####[facility] [address] [place] [address] Sodium [Moles/Vol] 145 mmol/L Normal 135-145 [facility] Comment on above: Performed By: #### 2 356316, 3589403, 07544762, 15214810, 7682206, 3488047, 3017353 ####[facility] [address] [place] [address] PT & PTTon 07-02-2023 aPTT Coag (PPP) [Time] 27.5 second(s) Normal 25.1-36.5 [facility] Comment on above: Result Comment: Para [...] the same coagulation reagent and instrumentation as [facility]. Currently there are no coagulation studies available worldwide for children to 14 days, and no normal ranges. Heparin therapeutic range (represented by Anti-Factor Xa activity of 0.2 - 0.4 U/mL) corresponds to PTT of 56.6 - 109.0 sec. Performed By: #### 2 806573, 7661640, 86166045, 12554843, 0518370, 1384643, 4778324 ####[facility] [address] [place] [address] INR Coag (PPP) [Relative time] 1.0 {INR} Invalid Interpretation Code [facility] Comment on above: Result Comment: INR results are specifically intended to assess patients stabilized on long-term Anticoagulation therapy suggested INR?s ?Less Intensive Anticoagulation? 2.0 ? 3.0Conventional Range 3.0 ? 4.5 Performed By: #### 2 081736, 2088722, 51819712, 98756388, 5393465, 8762435, 7537082 ####[facility] [address] [place] [address] PT Coag (PPP) [Time] 11.4 second(s) Normal 9.4-12.5 [facility] Comment on above: Result Comment: 15 [...] the same coagulation reagent and instrumentation as [facility]. Currently there are no coagulation studies available worldwide for children to 14 days, and no normal ranges. Performed By: #### 2 002293, 9941904, 12447637, 25216593, 6320753, 2910356, 8277461 ####[facility] [address] [place] [address] XR Abdomen 1 Viewon 07-02-20 23 XR Abdomen 1 View Normal [facility] eGFRon 07-02-2023 GFR/1.73 sq M.predicted among non-blacks MDRD (S/P/Bld) [Vol rate/Area] 44 mL/min/1.73 m2 Low >=59 [facility] Comment on above: Order Comment: Order added by Discern Expert. Result Comment: Manager Drilling maxi kidney disease could be indicated at eGFR's of less than 60 mL/min/1.73m2. Kidney failure is indicated at less than 15 mL/min/1.73m2. Performed By: #### 2 884116, 2969020, 35095251, 50204245, 1622878, 3480716, 2086683 ####[facility] [address] [place] [address] Consent for Treatmenton Consent for Treatment [id number]#1 .00TIFF Normal [facility] Reminderson 06-11-2023 Reminders Normal [facility] XR Abdomen 1 Viewon 06-11-20 23 XR Abdom[address] [facility] Consent for Treatmenton 05-30 Consent for Treatment [id number]#1 .00TIFF Normal [facility] C Blood Charcoalon 3 Blood Culture Charcoal Normal [facility] Comment on above: Performed By: #### 1 2222294 ####[facility] [address] [place] [address] C Blood Charcoalon 3 Blood Culture Charcoal Normal [facility] Comment on above: Performed By: #### 1 8089913 ####[facility] [address] [place], [place] [address] Blood Culture Charcoal [facility] Comment on above: Performed By: #### 1 0284904 ####[facility] [address] [place] [address] Consent for PICC lineon Consent for PICC line [id number]# 1.00TIFF [facility] Discharge Instructionson Discharge Instructions [id number]# 1.00CD:127 Normal [facility] C Blood Charcoalon 3 Blood Culture Charcoal Normal [facility] Comment on above: Performed By: #### 1 1318549 ####[facility] [address] [place] [address] CHEMISTRYOrdered By: Andrea ROP User on 06-02-2023 POC Username OBI AGARWAL Invalid Interpretation Code [facility] POC Subsection Sodium [Moles/Vol] 992626405946 mmol/L Invalid Interpretation Code [facility] POC Subsection Sodium [Moles/Vol] 443967512 mmol/L Invalid Interpretation Code [facility] POC Subsection Capillary Glucose POCOrdered By: Lab ROPUser on 06-02-2023 Glucose [Mass/Vol] 152 mg/dL High 55-99 [facility] P OC Subsection Comment on above: Result Comment: Modesto vanegas RN/ Result Comment: Modesto vanegas RN/ Performed By: #### 2 50904459 ####[facility] [address] [place] [address] Coding Queryon 06-02-2023 Coding Query Normal [facility] Inpatient Clinical Summaryon 06-02-2023 Inpatient Clinical Summary Normal [facility] Inpatient Patient Summaryon 06-02-2023 Inpatient Patient Summary Normal [facility] Inpatient Patient Summary Normal [facility] Interdisciplinary Note - Galo e Manageron 06-02-2023 Interdisciplinary Note - Ring Stamper Normal [facility] Comment on above: Result Comment: Elec tronically Signed By: Rayne Carpenter\.br\Date and Time Signed: 06/02/23 10:50 EDT BMPon 06-01-2023 Anion gap [Moles/Vol] 13 mmol/L Normal 6-16 [facility] Comment on above: Performed By: #### 2 828483, [id number] ####[facility] [address] [place] [address] Calcium [Mass/Vol] 8.9 mg/dL Normal 8.9-11.1 [facility] Comment on above: Performed By: #### 2 496348, 69997788 ####[facility] [address] [place] [address] Chloride [Moles/Vol] 115 mmol/L High 101-111 [facility] Comment on above: Performed By: #### 2 421765, 00488561 ####[facility] [address] [place] [address] CO2 [Moles/Vol] 20 mmol/L Low 21-31 [facility] Comment on above: Performed By: #### 2 [id number], [id number] ####[facility] [address] [place] [address] Creatinine [Mass/Vol] 1.2 mg/dL Normal 0.5-1.3 [facility] Comment on above: Performed By: #### 2 918232, [id number] ####[facility] [address] [place] [address] Glucose [Mass/Vol] 104 mg/dL Normal 55-199 [facility] Comment on above: Result Comment: If t his glucose result represents a fasting glucose, interpretation should refer to the following reference range: 55-99 mg/dL Performed By: #### 2 271240, [id number] ####[facility] [address] [place] [address] Potassium [Moles/Vol] 3.6 mmol/L Normal 3.5-5.3 [facility] Comment on above: Performed By: #### 2 386852, [id number] ####[facility] [address] [place] [address] Sodium [Moles/Vol] 144 mmol/L Normal 135-145 [facility] Comment on above: Performed By: #### 2 930807, [id number] ####[facility] [address] [place] [address] Urea nitrogen [Mass/Vol] 17 mg/dL Normal 5-21 [facility] Comment on above: Performed By: #### 2 063433, [id number] ####[facility] [address] [place] [address] Urea nitrogen/Creatinine [Mass ratio] 14 No Units Normal 10-20 [facility] Comment on above: Performed By: #### 2 091123, [id number] ####[facility] [address] [place] [address] CHEMISTRYOrdered By: Lab ROP User on 06-01-2023 Glucose [Mass/Vol] 213 mg/dL High 55 - 99 mg/dL [facility] C POC Subsection Comment on above: Result Comment: Modesto vanegas RN/ POC Username ASHOK ORTEZ Invalid Interpretation Code [facility] POC Subsection Sodium [Moles/Vol] [id number] mmol/L Invalid Interpretation Code [facility] POC Subsection Sodium [Moles/Vol] [id number] mmol/L Invalid Interpretation Code [facility] POC Subsection Glucose [Mass/Vol] 183 mg/dL High 55 - 99 mg/dL [facility] C POC Subsection Comment on above: Result Comment: Modesto vanegas RN/ POC Username JANIA GREEN Invalid Interpretation Code [facility] POC Subsection Sodium [Moles/Vol] 033446604997 mmol/L Invalid Interpretation Code [facility] POC Subsection Sodium [Moles/Vol] 445063598 mmol/L Invalid Interpretation Code [facility] POC Subsection CHEMISTRYOrdered By: SYSTEM SYSTEM on 06-01-2023 Anion gap [Moles/Vol] 13 mmol/L Normal 6 - 16 mEq/L FT Remisol Calcium [Mass/Vol] 8.9 mg/dL Normal 8.9 - 11.1 mg/dL FT Remisol Chloride [Moles/Vol] 115 mmol/L High 101 - 111 mmol/ L [facility] Remisol CO2 [Moles/Vol] 20 mmol/L Low 21 - 31 mmol/L [facility] Remisol Creatinine [Mass/Vol] 1.2 mg/dL Normal 0.5 - 1.3 mg/dL [facility] Remisol GFR/1.73 sq M.predicted among non-blacks MDRD (S/P/Bld) [Vol rate/Area] 48 mL/min/1.73 m2 Low >=59mL/min/1.73 m2 [facility] Chem S Comment on above: [...] 3.6 mmol/L Normal 3.5 - 5.3 mmol/L FT Remisol Sodium [Moles/Vol] 144 mmol/L Normal 135 - 145 mmol/L FT Remisol Urea nitrogen [Mass/Vol] 17 mg/dL Normal 5 - 21 mg/dL FT Remisol Urea nitrogen/Creatinine [Mass ratio] 14 mg/mg Normal 10 - 20 FT Remisol Capillary Glucose POCon 100 Glucose [Mass/Vol] 213 mg/dL High 55-99 [facility] Comment on above: Result Comment: Modesto ANDRES Performed By: #### 2 [id number] ####[facility] [address] [place] [address] Glucose [Mass/Vol] 183 mg/dL High 55- [facility] Comment on above: Result Comment: Modesto ANDRES Performed By: #### 2 [id number] ####[facility] [address] [place] [address] Glucose [Mass/Vol] 270 mg/dL High 55- [facility] Comment on above: Result Comment: Modesto ANDRES Performed By: #### 2 [id number] ####[facility] [address] [place] [address] Glucose [Mass/Vol] 102 mg/dL High - [facility] Comment on above: Result Comment: Modesto ANDRES Performed By: #### 2 [id number] ####[facility] [address] [place] [address] Consultation Noteon 06-01-20 Consultation Note Normal [facility] Comment on above: Result Comment: Elec tronically Signed By: Garrett Palmer M.D\.br\Date and Time Signed: 06/01/23 14:24 EDT Interdisciplinary Note - Galo e Manageron 06-01-2023 Interdisciplinary Note - Ring Stamper [facility] Comment on above: Result Comment: Elec tronically Signed By: Rayne Carpenter\.br\Date and Time Signed: 06/01/23 15:24 EDT Progress Note-Physicianon Progress Note-Physician [facility] Comment on above: Result Comment: Elec tronically Signed By: Jhonny Barrett DObr\Date and Time Signed: 06/01/23 13:20 EDT Progress Note-Physician [facility] Comment on above: Result Comment: Elec tronically Signed By: MD Ingrid, Ahmad F\.br\Date and Time Signed: 06/01/23 11:21 EDT Progress Note-Physician Normal [facility] Comment on above: Result Comment: Elec tronically Signed By: MD Ingrid, Jossy Adam.br\Date and Time Signed: 06/01/23 11:17 EDT eGFRon 06-01-2023 GFR/1.73 sq M.predicted among non-blacks MDRD (S/P/Bld) [Vol rate/Area] 48 mL/min/1.73 m2 Low >=59 [facility] Comment on above: Order Comment: Order added by Discern Expert. Result Comment: Manager Drilling maxi kidney disease could be indicated at eGFR's of less than 60 mL/min/1.73m2. Kidney failure is indicated at less than 15 mL/min/1.73m2. Performed By: #### 2 750466, [id number] ####[facility] [address] [place] [address] C Blood Charcoalon 3 Blood Culture Charcoal Normal [facility] Comment on above: Performed By: #### 1 [id number] ####[facility] [address] [place] [address] Capillary Glucose POCon Glucose [Mass/Vol] 161 mg/dL High 55-99 [facility] Comment on above: Result Comment: Modesto ANDRES Performed By: #### 2 [id number] ####[facility] [address] [place] [address] Glucose [Mass/Vol] 142 mg/dL High 55-99 [facility] Comment on above: Result Comment: Modesto ANDRES Performed By: #### 2 [id number] ####[facility] [address] [place] [address] Glucose [Mass/Vol] 201 mg/dL High 55-99 [facility] Comment on above: Result Comment: Modesto ANDRES Performed By: #### 2 [id number] ####[facility] [address] [place] [address] Glucose [Mass/Vol] 139 mg/dL High 55-99 [facility] Comment on above: Result Comment: Modesto vanegas RN/ Performed By: #### 2 [id number] ####[facility] [address] [facility] [place] [address] Interdisciplinary Note - Galo e Manageron 05-31-2023 Interdisciplinary Note - Ring Stamper [facility] Comment on above: Result Comment: Elec tronically Signed By: Rayne Carpenter\.br\Date and Time Signed: 05/31/23 10:58 EDT Interdisciplinary Note - Ring Stamper [facility] Comment on above: Result Comment: Elec tronically Signed By: Rayne Carpenter\.br\Date and Time Signed: 05/31/23 10:40 EDT IntraOperative Documentson 1 IntraOperative Documents [id number]# 1.00CD:127 Normal [facility] Progress Note-Physicianon Progress Note-Physician Normal [facility] Comment on above: Result Comment: Elec tronically Signed By: Jhonny Barrett DO\Date and Time Signed: 05/31/23 11:13 EDT BMPon 05-30-2023 Anion gap [Moles/Vol] 5 mmol/L Low 6-16 [facility] Comment on above: Performed By: #### 2 967058, [id number] ####[facility] [address] [place] [address] Calcium [Mass/Vol] 8.1 mg/dL Low 8.9-11.1 [facility] Comment on above: Performed By: #### 2 359689, [id number] ####[facility] [address] [place] [address] Chloride [Moles/Vol] 116 mmol/L High 101-111 [facility] Comment on above: Performed By: #### 2 660685, 26956844 ####[facility] [address] [place] [address] CO2 [Moles/Vol] 24 mmol/L Normal 21-31 [facility] Comment on above: Performed By: #### 2 407648, [id number] ####[facility] [address] [place] [address] Creatinine [Mass/Vol] 1.6 mg/dL High 0.5-1.3 [facility] Comment on above: Performed By: #### 2 209358, 40413431 ####[facility] [address] [place] [address] Glucose [Mass/Vol] 105 mg/dL Normal 55-199 [facility] Comment on above: Result Comment: If t his glucose result represents a fasting glucose, interpretation should refer to the following reference range: 55-99 mg/dL Performed By: #### 2 042879, [id number] ####[facility] [address] [place] [address] Potassium [Moles/Vol] 3.8 mmol/L Normal 3.5-5.3 [facility] Comment on above: Performed By: #### 2 755301, 47757693 ####[facility] [address] [facility] [place] [address] Sodium [Moles/Vol] 141 mmol/L Normal 135-145 [facility] Comment on above: Performed By: #### 2 137286, [id number] ####[facility] [address] [place] [address] Urea nitrogen [Mass/Vol] 28 mg/dL High 5-21 [facility] Comment on above: Performed By: #### 2 236536, [id number] ####[facility] [address] [facility] [place] [address] Urea nitrogen/Creatinine [Mass ratio] 18 No Units Normal 10-20 [facility] Comment on above: Performed By: #### 2 498722, [id number] ####[facility] [address] [facility] [place] [address] C Urineon 05-30-2023 Bacteria identified Cx Nom (U) Normal [facility] Comment on above: Performed By: #### 1 [id number], [id number] ####[facility] [address] [place] [address] CHEMISTRYOrdered By: SYSTEM SYSTEM on 05-30-2023 Anion gap [Moles/Vol] 5 mmol/L Low 6 - 16 mEq/L [facility] Remisol Calcium [Mass/Vol] 8.1 mg/dL Low 8.9 - 11.1 mg/dL [facility] Remisol Chloride [Moles/Vol] 116 mmol/L High 101 - 111 mmol/ L [facility] Remisol CO2 [Moles/Vol] 24 mmol/L Normal 21 - 31 mmol/L [facility] Remisol Creatinine [Mass/Vol] 1.6 mg/dL High 0.5 - 1.3 mg/dL [facility] Remisol GFR/1.73 sq M.predicted among non-blacks MDRD (S/P/Bld) [Vol rate/Area] 34 mL/min/1.73 m2 Low >=59mL/min/1.73 m2 [facility] Chem S Comment on above: Interpretive Data: C hronic kidney disease could be indicated at eGFR's of less than 60 mL/min/1.73m2. Kidney failure is indicated at less than 15 mL/min/1.73m2. Glucose [Mass/Vol] 105 mg/dL Normal 55 - 199 mg/dL [facility] Remisol Comment on above: Interpretive Data: I f this glucose result represents a fasting glucose, interpretation should refer to the following reference range: 55-99 mg/dL Potassium [Moles/Vol] 3.8 mmol/L Normal 3.5 - 5.3 mmol/L [facility] Remisol Sodium [Moles/Vol] 141 mmol/L Normal 135 - 145 mmol/L [facility] Remisol Urea nitrogen [Mass/Vol] 28 mg/dL High 5 - 21 mg/dL [facility] Remisol Urea nitrogen/Creatinine [Mass ratio] 18 mg/mg Normal 10 - 20 [facility] Remisol Capillary Glucose POCon Glucose [Mass/Vol] 209 mg/dL High 55-99 [facility] Comment on above: Result Comment: Modesto vanegas RN/ Performed By: #### 2 [id number] ####[facility] [address] [place] [address] Glucose [Mass/Vol] 171 mg/dL High 55-99 [facility] Comment on above: Result Comment: Modesto vanegas RN/ Performed By: #### 2 [id number] ####[facility] [address] [place] [address] Glucose [Mass/Vol] 191 mg/dL High 55-99 [facility] Comment on above: Result Comment: Modesto vanegas RN/ Performed By: #### 2 [id number] ####[facility] [address] [place] [address] Glucose [Mass/Vol] 92 mg/dL Normal 55-99 [facility] Comment on above: Result Comment: Modesto vanegas RN/ Performed By: #### 2 [id number] ####[facility] [address] [place] [address] Interdisciplinary Note - Galo e Manageron 05-30-2023 Interdisciplinary Note - Ring Stamper Normal [facility] Comment on above: Result Comment: Elec tronically Signed By: Crow MARCUM, Radhika\.br\Date and Time Signed: 05/30/23 13:39 EDT No Panel InformationOrdered By: ANGPROCESSSERVER MICROBIOLOGY on 05-30-2023 Blood Culture Charcoal No growth at 3 days. Final to follow at 7 days. [facility] Blood Culture Charcoal No growth at 3 days. Final to follow at 7 days. [facility] Progress Note-Physicianon Progress Note-Physician Normal [facility] Comment on above: Result Comment: Elec tronically Signed By: ISHAN CHISHOLM, Felice\.br\Date and Time Signed: 05/30/23 09:03 EDT eGFRon 05-30-2023 GFR/1.73 sq M.predicted among non-blacks MDRD (S/P/Bld) [Vol rate/Area] 34 mL/min/1.73 m2 Low >=59 [facility] Comment on above: Order Comment: Order added by Discern Expert. Result Comment: Manager Drilling maxi kidney disease could be indicated at eGFR's of less than 60 mL/min/1.73m2. Kidney failure is indicated at less than 15 mL/min/1.73m2. Performed By: #### 2 250556, [id number] ####[facility] [address] [place] [address] Auto Diffon 05-29-2023 Basophils/100 WBC (Bld) 0.2 % Normal 0.0-2.0 [facility] Comment on above: Order Comment: Order Added by Discern Expert. Performed By: #### 2 553792, 5276546, 3167344, 15372355 ####[address] [address] Basophils/Leukocytes Auto (Bld) [Pure # fraction] 0.0 E9/L Normal 0.0-0.2 [facility] Comment on above: Order Comment: Order Added by Discern Expert. Performed By: #### 2 288169, 1404929, 6630248, 47493346 ####[address] [address] Eosinophils/100 WBC (Bld) 1.1 % Normal 0.0-8.0 [facility] Comment on above: Order Comment: Order Added by Discern Expert. Performed By: #### 2 123599, 4710081, 0326015, 11251264 ####[address] [address] Eosinophils/Leukocyt es Auto (Bld) [Pure # fraction] 0.1 E9/L Normal 0.0-0.5 [facility] Comment on above: Order Comment: Order Added by Discern Expert. Performed By: #### 2 805137, 9761057, 8175783, 99759773 ####[address] [address] Lymphocytes/100 WBC (Bld) 4.9 % Low 14.0-50.0 [facility] Comment on above: Order Comment: Order Added by Discern Expert. Performed By: #### 2 369659, 7987057, 5867362, 56007864 ####[address] [address] Lymphocytes/Leukocyt es Auto (Bld) [Pure # fraction] 0.4 E9/L Low 1.0-4.0 [facility] Comment on above: Order Comment: Order Added by Discern Expert. Performed By: #### 2 413713, 6196557, 7684355, 81592585 ####[facility] [address] [place] [address] Monocytes/100 WBC (Bld) 6.4 % Normal 4.0-14.0 [facility] Comment on above: Order Comment: Order Added by Discern Expert. Performed By: #### 2 907893, 6826307, 4452946, 51663333 ####[address] [place] [address] Monocytes/Leukocytes Auto (Bld) [Pure # fraction] 0.6 E9/L Normal 0.2-1.0 [facility] Comment on above: Order Comment: Order Added by Discern Expert. Performed By: #### 2 254841, 5151773, 6819517, 06351186 ####[address] [place] [address] Neutrophils/100 WBC (Bld) 87.4 % High 36.0-75.0 [facility] Comment on above: Order Comment: Order Added by Discern Expert. Performed By: #### 2 961302, 5488367, 1893768, 53375910 ####[address] [place] [address] Neutrophils/Leukocyt es Auto (Bld) [Pure # fraction] 7.6 E9/L High 2.0-7.5 [facility] Comment on above: Order Comment: Order Added by Discern Expert. Performed By: #### 2 541467, 9138085, 7581806, 67933853 ####[address] [place] [address] BMPon 05-29-2023 Anion gap [Moles/Vol] 10 mmol/L Normal 6-16 [facility] Comment on above: Performed By: #### 2 232025, 2971074, 7145919, 08587824 ####[facility] [address] [place] [address] Calcium [Mass/Vol] 8.2 mg/dL Low 8.9-11.1 [facility] Comment on above: Performed By: #### 2 397116, 4692133, 3118204, 83916577 ####[facility] [address] [place] [address] Chloride [Moles/Vol] 109 mmol/L Normal 101-111 [facility] Comment on above: Performed By: #### 2 450192, 4395389, 2282816, 69150252 ####[facility] [address] [place] [address] CO2 [Moles/Vol] 24 mmol/L Normal 21-31 [facility] Comment on above: Performed By: #### 2 988319, 5787706, 4439481, 01845757 ####[facility] [address] [place] [address] Creatinine [Mass/Vol] 1.9 mg/dL High 0.5-1.3 [facility] Comment on above: Performed By: #### 2 596960, 2437780, 0899264, 08710062 ####[facility] [address] [place] [address] Glucose [Mass/Vol] 160 mg/dL Normal 55-199 [facility] Comment on above: Result Comment: If t his glucose result represents a fasting glucose, interpretation should refer to the following reference range: 55-99 mg/dL Performed By: #### 2 436363, 3378109, 8661492, 63545703 ####[facility] [address] [place] [address] Potassium [Moles/Vol] 3.4 mmol/L Low 3.5-5.3 [facility] Comment on above: Performed By: #### 2 799557, 7494637, 5651688, 52143356 ####[facility] [address] [place] [address] Sodium [Moles/Vol] 140 mmol/L Normal 135-145 [facility] Comment on above: Performed By: #### 2 506638, 6638780, 8389356, 65336108 ####[facility] [address] [place] [address] Urea nitrogen [Mass/Vol] 30 mg/dL High 5-21 [facility] Comment on above: Performed By: #### 2 047440, 2163632, 5813394, 43865809 ####[facility] [address] [place] [address] Urea nitrogen/Creatinine [Mass ratio] 16 No Units Normal 10-20 [facility] Comment on above: Performed By: #### 2 779026, 8909717, 8427873, 69873140 ####[facility] [address] [place] [address] C Urineon 05-29-2023 Bacteria identified Cx Nom (U) Normal [facility] Comment on above: Performed By: #### 1 9248964, 4024193 ####[facility] [address] [place] [address] CBC w/ Auto Diffon Erythrocyte distribution width (RBC) [Ratio] 13.2 % Normal 10.9-14.2 [facility] Comment on above: Performed By: #### 2 599061, 8015492, 6921279, 74141490 ####[facility] [address] [place] [address] Hematocrit (Bld) [Volume fraction] 34.7 % Normal 34.0-46.0 [facility] Comment on above: Performed By: #### 2 751605, 9990193, 2358481, 18688619 ####[facility] [address] [place] [address] Hemoglobin (Bld) [Mass/Vol] 11.9 g/dL Low 12.0-16.0 [facility] Comment on above: Performed By: #### 2 863535, 1969926, 5293138, 89656146 ####[address] [place] [address] MCH (RBC) [Entitic mass] 31.1 pg Normal 27.0-34.0 [facility] Comment on above: Performed By: #### 2 887548, 9468824, 5122164, 14622648 ####[address] [address] MCHC (RBC) [Mass/Vol] 34.2 g/dL Normal 31.4-36.0 [facility] Comment on above: Performed By: #### 2 802359, 6663203, 0832819, 25651908 ####[place] [address] MCV (RBC) [Entitic vol] 91.0 fL Normal 80.0-100.0 [facility] Comment on above: Performed By: #### 2 557878, 7226008, 1192234, 22617724 ####[place] [address] Platelet mean volume (Bld) [Entitic vol] 7.7 fL Normal 6.4-10.8 [facility] Comment on above: Performed By: #### 2 905061, 8141589, 4770153, 00276536 ####[address] [address] Platelets (Bld) [#/Vol] 152.0 E9/L Normal 150.0-500.0 [facility] Comment on above: Performed By: #### 2 211779, 0031258, 4260903, 36809350 ####[address] [address] RBC (Bld) [#/Vol] 3.8 E12/L Low 4.3-5.9 [facility] Comment on above: Performed By: #### 2 503842, 1698993, 7848283, 85231414 ####[address] [address] WBC corrected for nucl RBC Auto (Bld) [#/Vol] 8.7 E9/L Normal 4.0-11.0 [facility] Comment on above: Performed By: #### 2 654091, 9342042, 4811432, 10503314 ####[facility] [address] [place] [address] CHEMISTRYOrdered By: SYSTEM SYSTEM on 05-29-2023 Anion gap [Moles/Vol] 10 mmol/L Normal 6 - 16 mEq/L [facility] Remisol Calcium [Mass/Vol] 8.2 mg/dL Low 8.9 - 11.1 mg/dL FT Remisol Chloride [Moles/Vol] 109 mmol/L Normal 101 - 111 mmol/ L [facility] CO2 [Moles/Vol] 24 mmol/L Normal 21 - 31 mmol/L FT Rem[facility] Creatinine [Mass/Vol] 1.9 mg/dL High 0.5 - 1.3 mg/dL [facility] Remisol GFR/1.73 sq M.predicted among non-blacks MDRD (S/P/Bld) [Vol rate/Area] 28 mL/min/1.73 m2 Low >=59mL/min/1.73 m2 [facility] Chem S Comment on above: [...] 3.4 mmol/L Low 3.5 - 5.3 mmol/L [facility] Remisol Sodium [Moles/Vol] 140 mmol/L Normal 135 - 145 mmol/L [facility] Remisol Urea nitrogen [Mass/Vol] 30 mg/dL High 5 - 21 mg/dL [facility] Remisol Urea nitrogen/Creatinine [Mass ratio] 16 mg/mg Normal 10 - 20 [facility] Remisol Capillary Glucose POCon 05-02 Glucose [Mass/Vol] 205 mg/dL High 55-99 [facility] Comment on above: Result Comment: Noti fied RN/MD Performed By: #### 2 [id number] ####[facility] [address] [place] [address] Glucose [Mass/Vol] 214 mg/dL High 55-99 [facility] Comment on above: Result Comment: Sheryl minda Meter Performed By: #### 2 64763667 ####[facility] [address] [place] [address] Glucose [Mass/Vol] 206 mg/dL High 55-99 [facility] Comment on above: Result Comment: Sheryl minda Meter Performed By: #### 2 71692114 ####[facility] [address] [place] [address] Glucose [Mass/Vol] 156 mg/dL High 55-99 [facility] Comment on above: Result Comment: Sheryl minda Meter Performed By: #### 2 91848006 ####[facility] [address] [place] [address] HEMATOLOGYOrdered By: SYSTEM SYSTEM on 05-29-2023 Basophils/100 [...] n 05-29-2023 Interdisciplinary Note - PT Normal [facility] Message from Medicareon 05-02 Message from Medicare [id number]# 1.00CD:127 Normal [facility] No Panel InformationOrdered By: ANGPROCESSSERVER MICROBIOLOGY on 05-29-2023 Blood Culture Charcoal No growth at 4 days. Final to follow at 7 days. [facility] Blood Culture Charcoal No growth at 4 days. Final to follow at 7 days. [facility] Progress Note-Physicianon Progress Note-Physician Normal [facility] Comment on above: Result Comment: Elec tronically Signed By: ISHAN CHISHOLM, Felice\.br\Date and Time Signed: 05/29/23 15:21 EDT eGFRon 05-29-2023 GFR/1.73 sq M.predicted among non-blacks MDRD (S/P/Bld) [Vol rate/Area] 28 mL/min/1.73 m2 Low >=59 [facility] Comment on above: Order Comment: Order added by Discern Expert. Result Comment: Manager Drilling maxi kidney disease could be indicated at eGFR's of less than 60 mL/min/1.73m2. Kidney failure is indicated at less than 15 mL/min/1.73m2. Performed By: #### 2 882047, 7209948, 4356519, 82341916 ####[facility] [address] [place] [address] Auto Diffon 05-28-2023 Basophils/100 WBC (Bld) 0.2 % Normal 0.0-2.0 [facility] Comment on above: Order Comment: Order Added by Discern Expert. Performed By: #### 2 490708, 30829299, 5504576, 4401237 ####[facility] [address] [place] [address] Basophils/Leukocytes Auto (Bld) [Pure # fraction] 0.0 E9/L Normal 0.0-0.2 [facility] Comment on above: Order Comment: Order Added by Discern Expert. Performed By: #### 2 451766, 97727232, 5074018, 7040371 ####[facility] [address] [place] [address] Eosinophils/100 WBC (Bld) 0.1 % Normal 0.0-8.0 [facility] Comment on above: Order Comment: Order Added by Discern Expert. Performed By: #### 2 790097, 86510980, 0962315, 6125549 ####[facility] [address] [place] [address] Eosinophils/Leukocyt es Auto (Bld) [Pure # fraction] 0.0 E9/L Normal 0.0-0.5 [facility] Comment on above: Order Comment: Order Added by Discern Expert. Performed By: #### 2 239001, 36558443, 1658813, 3892573 ####[address] [place] [address] Lymphocytes/100 WBC (Bld) 2.6 % Low 14.0-50.0 [facility] Comment on above: Order Comment: Order Added by Discern Expert. Performed By: #### 2 507842, 82167642, 9419012, 7855379 ####[address] [address] Lymphocytes/Leukocyt es Auto (Bld) [Pure # fraction] 0.3 E9/L Low 1.0-4.0 [facility] Comment on above: Order Comment: Order Added by Discern Expert. Performed By: #### 2 512618, 09982815, 9818982, 3861637 ####[address] [address] Monocytes/100 WBC (Bld) 3.8 % Low 4.0-14.0 [facility] Comment on above: Order Comment: Order Added by Chrisetn Expert. Performed By: #### 2 664986, 62612924, 8352105, 1294658 ####[address] [address] Monocytes/Leukocytes Auto (Bld) [Pure # fraction] 0.5 E9/L Normal 0.2-1.0 [facility] Comment on above: Order Comment: Order Added by Discern Expert. Performed By: #### 2 785441, 70453443, 7234568, 2840367 ####[address] [address] Neutrophils/100 WBC (Bld) 93.3 % High 36.0-75.0 [facility] Comment on above: Order Comment: Order Added by Discern Expert. Performed By: #### 2 097222, 26756829, 3412666, 3760660 ####[facility] [address] [place] [address] Neutrophils/Leukocyt es Auto (Bld) [Pure # fraction] 11.2 E9/L High 2.0-7.5 [facility] Comment on above: Order Comment: Order Added by Discern Expert. Performed By: #### 2 247412, 29067896, 9947501, 0004387 ####[facility] [address] [place] [address] BMPon 05-28-2023 Anion gap [Moles/Vol] 11 mmol/L Normal 6-16 [facility] Comment on above: Performed By: #### 2 755855, 79034851, 2808908, 7535727 ####[address] [place] [address] Calcium [Mass/Vol] 8.0 mg/dL Low 8.9-11.1 [facility] Comment on above: Performed By: #### 2 366855, 42269233, 9243705, 5273143 ####[facility] [address] [place] [address] Chloride [Moles/Vol] 109 mmol/L Normal 101-111 [facility] Comment on above: Performed By: #### 2 861369, 78139992, 9443069, 7767642 ####[facility] [address] [place] [address] CO2 [Moles/Vol] 22 mmol/L Normal 21-31 [facility] Comment on above: Performed By: #### 2 594138, 90355605, 7205959, 3704803 ####[facility] [address] [place] [address] Creatinine [Mass/Vol] 2.0 mg/dL High 0.5-1.3 [facility] Comment on above: Performed By: #### 2 778747, 01608349, 0470340, 0227210 ####[facility] [address] [place] [address] Glucose [Mass/Vol] 161 mg/dL Normal 55-199 [facility] Comment on above: Result Comment: If t his glucose result represents a fasting glucose, interpretation should refer to the following reference range: 55-99 mg/dL Performed By: #### 2 806722, 09640086, 2825859, 1513511 ####[facility] [address] [place] [address] Potassium [Moles/Vol] 3.5 mmol/L Normal 3.5-5.3 [facility] Comment on above: Performed By: #### 2 166698, 56224109, 5319599, 2927607 ####[facility] [address] [place] [address] Sodium [Moles/Vol] 138 mmol/L Normal 135-145 [facility] Comment on above: Performed By: #### 2 386392, 75164019, 6317090, 9547169 ####[facility] [address] [place] [address] Urea nitrogen [Mass/Vol] 25 mg/dL High 5-21 [facility] Comment on above: Performed By: #### 2 127660, 56505660, 3165024, 3711272 ####[facility] [address] [place] [address] Urea nitrogen/Creatinine [Mass ratio] 12 No Units Normal 10-20 [facility] Comment on above: Performed By: #### 2 827004, 22857861, 5435107, 4970852 ####[facility] [address] [place] [address] CBC w/ Auto Diffon 3 Erythrocyte distribution width (RBC) [Ratio] 13.5 % Normal 10.9-14.2 [facility] Comment on above: Performed By: #### 2 386210, 40716989, 4041428, 9884196 ####[facility] [address] [place] [address] Hematocrit (Bld) [Volume fraction] 36.0 % Normal 34.0-46.0 [facility] Comment on above: Performed By: #### 2 099249, 53172144, 1255309, 1577353 ####[address] [place] [address] Hemoglobin (Bld) [Mass/Vol] 12.3 g/dL Normal 12.0-16.0 [facility] Comment on above: Performed By: #### 2 860419, 59430068, 4582375, 6403919 ####[address] [address] MCH (RBC) [Entitic mass] 31.0 pg Normal 27.0-34.0 [facility] Comment on above: Performed By: #### 2 524474, 35078144, 8134709, 5154246 ####[address] [address] MCHC (RBC) [Mass/Vol] 34.2 g/dL Normal 31.4-36.0 [facility] Comment on above: Performed By: #### 2 647554, 71477279, 4198398, 9049364 ####[address] [address] MCV (RBC) [Entitic vol] 90.7 fL Normal 80.0-100.0 [facility] Comment on above: Performed By: #### 2 330466, 21200935, 2900324, 0563220 ####[address] [address] Platelet mean volume (Bld) [Entitic vol] 7.3 fL Normal 6.4-10.8 [facility] Comment on above: Performed By: #### 2 958638, 22674199, 4717964, 9475222 ####[address] [address] Platelets (Bld) [#/Vol] 154.0 E9/L Normal 150.0-500.0 [facility] Comment on above: Performed By: #### 2 394206, 77610808, 8014167, 6161290 ####[facility] [address] [place] [address] RBC (Bld) [#/Vol] 4.0 E12/L Low 4.3-5.9 [facility] Comment on above: Performed By: #### 2 888484, 80802319, 1030590, 4399107 ####[address] [address] WBC corrected for nucl RBC Auto (Bld) [#/Vol] 12.0 E9/L High 4.0-11.0 [facility] Comment on above: Performed By: #### 2 628830, 37570332, 4119650, 8707631 ####[address] [address] Capillary Glucose POCon 05-01 Glucose [Mass/Vol] 173 mg/dL High 55-99 [facility] Comment on above: Result Comment: [place] ANDRES Performed By: #### 2 95922645 ####[address] [address] Glucose [Mass/Vol] 122 mg/dL High -[address] [place] [address] Comment on above: Result Comment: [place] ANDRES Performed By: #### 2 25053076 ####[address] [place] [address] Glucose [Mass/Vol] 140 mg/dL High 55-99 [facility] Comment on above: Result Comment: [place] ANDRES Performed By: #### 2 58214569 ####[address] [place] [address] Glucose [Mass/Vol] 145 mg/dL High 55-[address] [place] [address] Comment on above: Result Comment: [place] ANDRES Performed By: #### 2 07823940 ####[facility] [address] [place] [address] Consent for Anesthesiaon Consent for Anesthesia [id number]# 1.00CD:127 Normal [facility] HEMATOLOGYOrdered By: SYSTEM SYSTEM on 05-28-2023 [...] 34.2 g/dL Normal 31.4 - 36.0 gm/dL [facility] HemeAutoSS MCV (RBC) [Entitic vol] 90.7 fL Normal 80.0 - 100.0 fL [facility] HemeAutoSS Platelet mean volume (Bld) [Entitic vol] 7.3 fL Normal 6.4 - 10.8 fL [facility] HemeAutoSS Platelets (Bld) [#/Vol] 154.0 E9/L Normal 150.0 - 500.0 E9/L [facility] HemeAutoSS RBC (Bld) [#/Vol] 4.0 E12/L Low 4.3 - 5.9 E12/L [facility] HemeAutoSS WBC corrected for nucl RBC Auto (Bld) [#/Vol] 12.0 E9/L High 4.0 - 11.0 E9/L [facility] HemeAutoSS Insurance Correspondence Off iceon 05-28-2023 Insurance Correspondence Office [id number]#1 .00CD:127 Normal [facility] Interdisciplinary Note - Galo e Manageron 05-28-2023 Interdisciplinary Note - Ring Stamper Normal [facility] Comment on above: Result Comment: Elec tronically Signed By: Rayne Carpenter\.br\Date and Time Signed: 05/28/23 12:00 EDT IntraOperative Documentson 0 05-28-2023 IntraOperative Documents [id number]# 1.00CD:127 Normal [facility] Laboratory - Microbiology an d Antimicrobial susceptibilityOrdered By: Nata Prieto on 05-28-2023 Bacteria identified Cx Nom (U) 25,000 cfu/ml Anastacia albicans Presumptive isolated. [facility] Main OR Intraoperative Recor don 05-28-2023 Main OR Intraoperative Record Normal [facility] Progress Note-Physicianon Progress Note-Physician Normal [facility] Comment on above: Result Comment: Elec tronically Signed By: ISHAN CHISHOLM, Felice\.br\Date and Time Signed: 05/28/23 09:20 EDT UA With Cult Reflexon 2022 UA Spec Desc Catheter Normal [facility] Comment on above: Order Comment: Urina ry Catheter Insertion triggered Urinalysis With Culture Reflex order by discern. Performed By: #### 1 6290149, 3921921 ####[facility] [address] [place] [address] Bacteria LM Ql (Urine sed) 2+ /HPF Abnormal Trace [facility] Comment on above: Order Comment: Urina ry Catheter Insertion triggered Urinalysis With Culture Reflex order by discern. Performed By: #### 1 7725389, 4207278 ####[address] [address] Bilirubin Ql (U) Negative Normal Negative [facility] Comment on above: Order Comment: Urina ry Catheter Insertion triggered Urinalysis With Culture Reflex order by discern. Performed By: #### 1 1450407, 1408733 ####[address] [address] Clarity (U) SL CLOUDY Abnormal Clear [facility] Comment on above: Order Comment: Urina ry Catheter Insertion triggered Urinalysis With Culture Reflex order by discern. Performed By: #### 1 3206464, 8412153 ####[address] [address] Color (U) YELLOW Normal Yellow [facility] Comment on above: Order Comment: Urina ry Catheter Insertion triggered Urinalysis With Culture Reflex order by discern. Performed By: #### 1 7112336, 5948962 ####[address] [address] Crystals LM Ql (Urine sed) Present Normal [facility] Comment on above: Order Comment: Urina ry Catheter Insertion triggered Urinalysis With Culture Reflex order by discern. Performed By: #### 1 7438455, 2225911 ####[address] [address] Epithelial cells.squamous LM.HPF (Urine sed) [#/Area] 0-2 Normal 0-2 [facility] Comment on above: Order Comment: Urina ry Catheter Insertion triggered Urinalysis With Culture Reflex order by discern. Performed By: #### 1 6285729, 5263525 ####[facility] [address] [place] [address] Glucose Test strip (U) [Mass/Vol] Negative Normal Negative [facility] Comment on above: Order Comment: Urina ry Catheter Insertion triggered Urinalysis With Culture Reflex order by discern. Performed By: #### 1 2542509, 4210417 ####[facility] [address] [place] [address] Hemoglobin Ql (U) 3+ Abnormal Negative [facility] Comment on above: Order Comment: Urina ry Catheter Insertion triggered Urinalysis With Culture Reflex order by discern. Performed By: #### 1 9485402, 8879100 ####[address] [address] Ketones (U) [Mass/Vol] Negative Normal Negative [facility] Comment on above: Order Comment: Urina ry Catheter Insertion triggered Urinalysis With Culture Reflex order by discern. Performed By: #### 1 6050123, 1893048 ####[address] [address] [place].plasma/Lithi um.RBC (Bld) [Mass ratio] 0-3 Normal 0-3 [facility] Comment on above: Order Comment: Urina ry Catheter Insertion triggered Urinalysis With Culture Reflex order by discern. Performed By: #### 1 4934766, 9978465 ####[address] [address] Nitrite Ql (U) Negative Normal Negative [facility] Comment on above: Order Comment: Urina ry Catheter Insertion triggered Urinalysis With Culture Reflex order by discern. Performed By: #### 1 4300112, 9137285 ####[address] [address] pH (U) 5.5 [pH] Invalid Interpretation Code 5.0-9.0 [facility] Comment on above: Order Comment: Urina ry Catheter Insertion triggered Urinalysis With Culture Reflex order by discern. Performed By: #### 1 6480090, 6962068 ####[facility] [address] [place] [address] Protein (U) [Mass/Vol] 1+ Abnormal Negative [facility] Comment on above: Order Comment: Urina ry Catheter Insertion triggered Urinalysis With Culture Reflex order by discern. Performed By: #### 1 3931953, 2393546 ####[address] [address] Specific gravity (U) [Rel density] 1.015 Invalid Interpretation Code 1.005-1.030 [facility] Comment on above: Order Comment: Urina ry Catheter Insertion triggered Urinalysis With Culture Reflex order by discern. Performed By: #### 1 5594119, 4738992 ####[place] [address] Urobilinogen Qn (U) 0.2 {Isis'U}/dL Normal 0.0-1.0 [facility] Comment on above: Order Comment: Urina ry Catheter Insertion triggered Urinalysis With Culture Reflex order by discern. Performed By: #### 1 6463206, 3902137 ####[address] WBC Auto Ql (U) 2+ Abnormal Negative [facility] Comment on above: Order Comment: Urina ry Catheter Insertion triggered Urinalysis With Culture Reflex order by discern. Performed By: #### 1 6816002, 2230510 ####[address] [address] WBC LM.HPF (Urine sed) [#/Area] /[HPF] Abnormal 0-5 [facility] Comment on above: Order Comment: Urina ry Catheter Insertion triggered Urinalysis With Culture Reflex order by discern. Performed By: #### 1 6831344, 4496560 ####[address] Yeast LM Ql (Urine sed) 3+ Normal [facility] Comment on above: Order Comment: Urina ry Catheter Insertion triggered Urinalysis With Culture Reflex order by discern. Performed By: #### 1 0934782, 1893429 ####[address] URINALYSISOrdered By: Diony Benitez on 05-28-2023 Bacteria [...] PM) Normal Negative [facility] UA Auto SS [place].plasma/Lithi um.RBC (Bld) [Mass ratio] 0-3 /HPF Normal [...] [facility] UA Auto SS Urobilinogen Qn (U) 0.9161877 {Isis'U}/dL Normal 0.0 - 1.0 EU/dL [facility] [...] [Vol rate/Area] 26 mL/min/1.73 m2 Low >=59 [facility] Comment on above: Order Comment: Order added by Discern Expert. Result Comment: Manager Drilling maxi kidney disease could be indicated at eGFR's of less than 60 mL/min/1.73m2. Kidney failure is indicated at less than 15 mL/min/1.73m2. Performed By: #### 2 926924, 55693816, 2569238, 5992395 ####[facility] [address] [place] [address] Auto Diffon 05-27-2023 Basophils/100 WBC (Bld) 0.3 % Normal 0.0-2.0 [facility] Comment on above: Order Comment: Order Added by Discern Expert. Performed By: #### 2 326329, 2131465, 75630338, 4700711 ####[facility] [address] [place] [address] Basophils/Leukocytes Auto (Bld) [Pure # fraction] 0.1 E9/L Normal 0.0-0.2 [facility] Comment on above: Order Comment: Order Added by Discern Expert. Performed By: #### 2 732723, 5515400, 19617566, 1237568 ####[facility] [address] [place] [address] Eosinophils/100 WBC (Bld) 0.1 % Normal 0.0-8.0 [facility] Comment on above: Order Comment: Order Added by Discern Expert. Performed By: #### 2 752903, 1866920, 19862854, 4039244 ####[facility] [address] [address] Eosinophils/Leukocyt es Auto (Bld) [Pure # fraction] 0.0 E9/L Normal 0.0-0.5 [facility] Comment on above: Order Comment: Order Added by Discern Expert. Performed By: #### 2 132214, 5505814, 22514872, 4854660 ####[address] [address] Lymphocytes/100 WBC (Bld) 4.0 % Low 14.0-50.0 [facility] Comment on above: Order Comment: Order Added by Discern Expert. Performed By: #### 2 047777, 7892672, 20841432, 3780987 ####[address] [address] Lymphocytes/Leukocyt es Auto (Bld) [Pure # fraction] 0.7 E9/L Low 1.0-4.0 [facility] Comment on above: Order Comment: Order Added by Discern Expert. Performed By: #### 2 784142, 3747381, 44525009, 5099616 ####[address] [address] Monocytes/100 WBC (Bld) 4.8 % Normal 4.0-14.0 [facility] Comment on above: Order Comment: Order Added by Discern Expert. Performed By: #### 2 136301, 2914662, 49208699, 2719612 ####[address] [address] Monocytes/Leukocytes Auto (Bld) [Pure # fraction] 0.8 E9/L Normal 0.2-1.0 [facility] Comment on above: Order Comment: Order Added by Discern Expert. Performed By: #### 2 894284, 5455373, 07880907, 7228770 ####[address] [address] Neutrophils/100 WBC (Bld) 90.8 % High 36.0-75.0 [facility] Comment on above: Order Comment: Order Added by Discern Expert. Performed By: #### 2 961964, 2690605, 24757336, 0434869 ####[facility] [address] [place] [address] Neutrophils/Leukocyt es Auto (Bld) [Pure # fraction] 15.7 E9/L High 2.0-7.5 [facility] Comment on above: Order Comment: Order Added by Discern Expert. Performed By: #### 2 596035, 0130681, 14082248, 3185764 ####[facility] [address] [place] [address] BMPon 05-27-2023 Anion gap [Moles/Vol] 10 mmol/L Normal 6-16 [facility] Comment on above: Performed By: #### 2 731591, 8628000, 07194155, 5277962 ####[address] [place] [address] Calcium [Mass/Vol] 8.0 mg/dL Low 8.9-11.1 [facility] Comment on above: Performed By: #### 2 050029, 3909730, 51182129, 8090196 ####[facility] [address] [place] [address] Chloride [Moles/Vol] 112 mmol/L High 101-111 [facility] Comment on above: Performed By: #### 2 190691, 0358468, 42358492, 6900848 ####[facility] [address] [place] [address] CO2 [Moles/Vol] 22 mmol/L Normal 21-31 [facility] Comment on above: Performed By: #### 2 410760, 0641941, 14462558, 4788491 ####[facility] [address] [place] [address] Creatinine [Mass/Vol] 1.9 mg/dL High 0.5-1.3 [facility] Comment on above: Performed By: #### 2 039100, 7450222, 58886922, 4810752 ####[facility] [address] [place] [address] Glucose [Mass/Vol] 342 mg/dL High 55-199 [facility] Comment on above: Result Comment: If t his glucose result represents a fasting glucose, interpretation should refer to the following reference range: 55-99 mg/dL Performed By: #### 2 656855, 1678826, 95332667, 4876412 ####[facility] [address] [place] [address] Potassium [Moles/Vol] 4.3 mmol/L Normal 3.5-5.3 [facility] Comment on above: Performed By: #### 2 406654, 7655533, 44126408, 6171524 ####[facility] [address] [place] [address] Sodium [Moles/Vol] 140 mmol/L Normal 135-145 [facility] Comment on above: Performed By: #### 2 452346, 3693616, 83067606, 3609417 ####[facility] [address] [place] [address] Urea nitrogen [Mass/Vol] 22 mg/dL High 5-21 [facility] Comment on above: Performed By: #### 2 489613, 5128443, 52682100, 6541611 ####[facility] [address] [place] [address] Urea nitrogen/Creatinine [Mass ratio] 12 No Units Normal 10-20 [facility] Comment on above: Performed By: #### 2 874157, 3515770, 00958242, 0777939 ####[facility] [address] [place] [address] CBC w/ Auto Diffon 3 Erythrocyte distribution width (RBC) [Ratio] 13.6 % Normal 10.9-14.2 [facility] Comment on above: Performed By: #### 2 836515, 3503557, 06012197, 2040506 ####[facility] [address] [place] [address] Hematocrit (Bld) [Volume fraction] 38.9 % Normal 34.0-46.0 [facility] Comment on above: Performed By: #### 2 638540, 0786633, 71335299, 0181692 ####[address] [address] Hemoglobin (Bld) [Mass/Vol] 13.0 g/dL Normal 12.0-16.0 [facility] Comment on above: Performed By: #### 2 512842, 9268801, 22125814, 9034394 ####[address] [address] MCH (RBC) [Entitic mass] 30.5 pg Normal 27.0-34.0 [facility] Comment on above: Performed By: #### 2 880907, 9668371, 41801460, 7832023 ####[address] [address] MCHC (RBC) [Mass/Vol] 33.4 g/dL Normal 31.4-36.0 [facility] Comment on above: Performed By: #### 2 926674, 1050917, 17368550, 7216651 ####[address] [address] MCV (RBC) [Entitic vol] 91.5 fL Normal 80.0-100.0 [facility] Comment on above: Performed By: #### 2 945995, 6948823, 24514586, 1014558 ####[address] [address] Platelet mean volume (Bld) [Entitic vol] 7.5 fL Normal 6.4-10.8 [facility] Comment on above: Performed By: #### 2 155757, 7218621, 72359593, 3010233 ####[address] [address] Platelets (Bld) [#/Vol] 181.0 E9/L Normal 150.0-500.0 [facility] Comment on above: Performed By: #### 2 287249, 0211772, 30158492, 3069303 ####[facility] [address] [place] [address] RBC (Bld) [#/Vol] 4.2 E12/L Low 4.3-5.9 [facility] Comment on above: Performed By: #### 2 136449, 6294884, 42634458, 5302691 ####[facility] [address] [place] [address] WBC corrected for nucl RBC Auto (Bld) [#/Vol] 17.2 E9/L High 4.0-11.0 [facility] Comment on above: Result Comment: Slid e reviewed by BRSharyn Performed By: #### 2 246330, 0480050, 71595939, 2252680 ####[facility] [address] [place] [address] CT Abdomen/Pelvis w/o Contra ston 05-27-2023 CT Abdomen/Pelvis w/o Contrast Normal [facility] Capillary Glucose POCon 05-01 Glucose [Mass/Vol] 321 mg/dL High 55-99 [facility] Comment on above: Result Comment: [place] vanegas RN/ Performed By: #### 2 97078638 ####[facility] [address] [place] [address] Glucose [Mass/Vol] 353 mg/dL High 55-99 [facility] Comment on above: Result Comment: Sheryl minda Meter Performed By: #### 2 95787681 ####[facility] [address] [place] [address] Glucose [Mass/Vol] 378 mg/dL High 55-99 [facility] Comment on above: Result Comment: [place] vanegas RN/ Performed By: #### 2 34017681 ####[facility] [address] [place] [address] Glucose [Mass/Vol] 323 mg/dL High 55-99 [facility] Comment on above: Performed By: #### 2 62507014 ####[facility] [address] [place] [address] Glucose [Mass/Vol] 320 mg/dL High 55-99 [facility] Comment on above: Performed By: #### 2 31982267 ####[facility] [address] [place] [address] Consent for Procedure/Surger yon 05-27-2023 Consent for Procedure/Surgery [id number]#1 .00CD:127 Normal [facility] Consultation Noteon 05-27-20 Consultation Note Normal [facility] Comment on above: Result Comment: Elec tronically Signed By: Orestes JACQUES MD\.br\Date and Time Signed: 05/27/23 08:09 EDT ED Note-Physicianon 05-27-20 ED Note-Physician Normal [facility] Comment on above: Result [...] 05-01 Main OR PACU I Record Normal [facility] Monitor Recordon 05-27-2023 Monitor Record [id number]# 1.00CD:127 Normal [facility] Monitor Record [id number]# 1.00CD:127 Normal [facility] Monitor Record [id number]# 1.00CD:127 Normal [facility] No Panel InformationOrdered By: Ramona Christie on 05-27-2023 Blood Culture Charcoal Anastacia albicans In 1 of 2 blood culture bottles drawn. Isolated from aerobic bottle Preliminary gram stain result of yeast Result called to Dr. Marx by [facility] and results read back for confirmation on 05/29/2023 12:23. [facility] No Panel InformationOrdered By: Nata Prieto on 05-27-2023 Blood Culture Charcoal Anastacia albicans isolated. In 1 of 1 blood culture bottles drawn. Isolated from pediatric bottle Preliminary gram stain result of yeast Result called to Dr. Marx by [facility] and results read back for confirmation on 05/29/2023 12:22:06 [facility] Operative Reporton Operative Report Normal [facility] Comment on above: Result Comment: Elec tronically Signed By: GEORGIE CHISHOLM, Orestes Muñiz\.br\Date and Time Signed: 05/27/23 08:13 EDT eGFRon 05-27-2023 GFR/1.73 sq M.predicted among non-blacks MDRD (S/P/Bld) [Vol rate/Area] 28 mL/min/1.73 m2 Low >=59 [facility] Comment on above: Order Comment: Order added by Discern Expert. Result Comment: Manager Drilling maxi kidney disease could be indicated at eGFR's of less than 60 mL/min/1.73m2. Kidney failure is indicated at less than 15 mL/min/1.73m2. Performed By: #### 2 101863, 6620072, 51165277, 0673838 ####[facility] [address] [place] [address] Auto Diffon 05-26-2023 Basophils/100 WBC (Bld) 0.1 % Normal 0.0-2.0 [facility] Comment on above: Order Comment: Order Added by Discern Expert. Performed By: #### 2 596837, 02992170, 6642588, 6595937, 2747933, 1902106 ####[address] [address] Basophils/Leukocytes Auto (Bld) [Pure # fraction] 0.0 E9/L Normal 0.0-0.2 [facility] Comment on above: Order Comment: Order Added by Discern Expert. Performed By: #### 2 965006, 13137993, 6719664, 3439318, 8302705, 6387453 ####[address] [address] Eosinophils/100 WBC (Bld) 0.0 % Normal 0.0-8.0 [facility] Comment on above: Order Comment: Order Added by Discern Expert. Performed By: #### 2 471958, 88697864, 6964109, 6867511, 0468686, 9661877 ####[address] [address] Eosinophils/Leukocyt es Auto (Bld) [Pure # fraction] 0.0 E9/L Normal 0.0-0.5 [facility] Comment on above: Order Comment: Order Added by Discern Expert. Performed By: #### 2 841672, 35389530, 9281173, 3559228, 6022889, 4331215 ####[address] [address] Lymphocytes/100 WBC (Bld) 3.9 % Low 14.0-50.0 [facility] Comment on above: Order Comment: Order Added by Discern Expert. Performed By: #### 2 993181, 76429572, 6707877, 5125063, 3493574, 1725780 ####[address] [address] Lymphocytes/Leukocyt es Auto (Bld) [Pure # fraction] 0.7 E9/L Low 1.0-4.0 [facility] Comment on above: Order Comment: Order Added by Discern Expert. Performed By: #### 2 538931, 74763844, 4402068, 8492206, 7162959, 3159176 ####[address] [place] [address] Monocytes/100 WBC (Bld) 6.6 % Normal 4.0-14.0 [facility] Comment on above: Order Comment: Order Added by Discern Expert. Performed By: #### 2 073976, 64904499, 1950465, 0893026, 4108056, 4246131 ####[address] [address] Monocytes/Leukocytes Auto (Bld) [Pure # fraction] 1.2 E9/L High 0.2-1.0 [facility] Comment on above: Order Comment: Order Added by Christen Expert. Performed By: #### 2 194442, 99263312, 5242959, 4956434, 6367313, 8494971 ####[address] [address] Neutrophils/100 WBC (Bld) 89.4 % High 36.0-75.0 [facility] Comment on above: Order Comment: Order Added by Discern Expert. Performed By: #### 2 103817, 58441173, 5388262, 5767276, 4040960, 7909206 ####[address] [address] Neutrophils/Leukocyt es Auto (Bld) [Pure # fraction] 16.6 E9/L High 2.0-7.5 [facility] Comment on above: Order Comment: Order Added by Discern Expert. Performed By: #### 2 259451, 47198447, 2622664, 5078304, 3055215, 1511869 ####[facility] [address] [place] [address] BMPon 05-26-2023 Creatinine [Mass/Vol] 1.9 mg/dL High 0.5-1.3 [facility] Comment on above: Performed By: #### 2 722838, 02432306, 4526488, 4723186, 8477318, 0783784 ####[address] [address] Urea nitrogen [Mass/Vol] 19 mg/dL Normal 5-21 [facility] Comment on above: Performed By: #### 2 073521, 90937295, 1386053, 1208574, 3235255, 4535275 ####[facility] [address] [place] [address] Urea nitrogen/Creatinine [Mass ratio] 10 No Units Normal 10-20 [facility] Comment on above: Performed By: #### 2 796229, 78950465, 1393415, 3234695, 9536703, 7624769 ####[facility] [address] [place] [address] Anion gap [Moles/Vol] 13 mmol/L Normal 6-16 [facility] Comment on above: Performed By: #### 2 758588, 02517016, 8603528, 5131927, 4166198, 6781292 ####[facility] [address] [place] [address] Calcium [Mass/Vol] 8.9 mg/dL Normal 8.9-11.1 [facility] Comment on above: Performed By: #### 2 791636, 15990650, 3762260, 9022165, 1331955, 8309204 ####[facility] [address] [place] [address] Chloride [Moles/Vol] 106 mmol/L Normal 101-111 [facility] Comment on above: Performed By: #### 2 874127, 82839342, 0344362, 5792592, 8074488, 5839167 ####[facility] [address] [place] [address] CO2 [Moles/Vol] 25 mmol/L Normal 21-31 [facility] Comment on above: Performed By: #### 2 744844, 34519976, 6206583, 9323971, 6057369, 0936539 ####[facility] [address] [place] [address] Glucose [Mass/Vol] 342 mg/dL High 55-199 [facility] Comment on above: Result Comment: If t his glucose result represents a fasting glucose, interpretation should refer to the following reference range: 55-99 mg/dL Performed By: #### 2 791289, 21750430, 3564278, 6321929, 8396743, 8857616 ####[facility] [address] [place] [address] Potassium [Moles/Vol] 3.9 mmol/L Normal 3.5-5.3 [facility] Comment on above: Performed By: #### 2 980350, 90943611, 8653074, 5564261, 5001410, 3888317 ####[address] [place] [address] Sodium [Moles/Vol] 140 mmol/L Normal 135-145 [facility] Comment on above: Performed By: #### 2 427039, 55788512, 8714402, 9943325, 9554869, 9055134 ####[address] [address] CBC w/ Auto Diffon 3 Erythrocyte distribution width (RBC) [Ratio] 13.6 % Normal 10.9-14.2 [facility] Comment on above: Performed By: #### 2 916411, 10418625, 5079310, 1724022, 1551429, 5011580 ####[address] [place] [address] Hematocrit (Bld) [Volume fraction] 45.2 % Normal 34.0-46.0 [facility] Comment on above: Performed By: #### 2 009823, 17569492, 4582344, 8107037, 0921016, 3577260 ####[address] [place] [address] Hemoglobin (Bld) [Mass/Vol] 15.2 g/dL Normal 12.0-16.0 [facility] Comment on above: Performed By: #### 2 707468, 36920375, 3338951, 6123249, 7015410, 6944159 ####[address] [address] MCH (RBC) [Entitic mass] 30.5 pg Normal 27.0-34.0 [facility] Comment on above: Performed By: #### 2 603607, 45238436, 9923975, 0245306, 3044392, 9486130 ####[address] [address] MCHC (RBC) [Mass/Vol] 33.7 g/dL Normal 31.4-36.0 [facility] Comment on above: Performed By: #### 2 208471, 70742265, 7330962, 0977628, 1348636, 4708578 ####[address] [address] MCV (RBC) [Entitic vol] 90.3 fL Normal 80.0-100.0 [facility] Comment on above: Performed By: #### 2 382213, 84016446, 5526131, 9498459, 0938651, 4212006 ####[address] [address] Platelet mean volume (Bld) [Entitic vol] 7.1 fL Normal 6.4-10.8 [facility] Comment on above: Performed By: #### 2 188560, 16095604, 4423812, 7767696, 1760899, 7906915 ####[address] [address] Platelets (Bld) [#/Vol] 256.0 E9/L Normal 150.0-500.0 [facility] Comment on above: Performed By: #### 2 485669, 01941585, 1133968, 2656818, 6633695, 3450121 ####[address] [address] RBC (Bld) [#/Vol] 5.0 E12/L Normal 4.3-5.9 [facility] Comment on above: Performed By: #### 2 914251, 03518643, 9599391, 2356182, 7331358, 1645441 ####[facility] [address] [place] [address] WBC corrected for nucl RBC Auto (Bld) [#/Vol] 18.6 E9/L High 4.0-11.0 [facility] Comment on above: Result Comment: Slid e reviewed by MA Performed By: #### 2 000973, 09893655, 5827376, 7154734, 2891242, 1462256 ####[facility] [address] [place] [address] CHEMISTRYOrdered By: SYSTEM SYSTEM on 05-26-2023 Troponin [...] Consent for Treatmenton 05-01 Consent for Treatment [id number] .00CD:127 Normal [facility] DAPTOMYCIN:SUSC:PT:ISOLATE:O RDQN:MICOrdered By: Nata Prieto on 05-26-2023 DAPTOmycin LAUREN [Sus] 20,000 cfu/ml Staphylococcus haemolyticus 2,000 cfu/ml Mixed skin contaminants [facility] DAPTOmycin LAUREN [Susc]Ordered By: Nata Prieto on 05-26-2023 Staphylococcus haemolyticus Staphylococcus haemolyticus [facility] Hep Func Panelon 05-26-2023 Albumin [Mass/Vol] 3.3 g/dL Normal 3.3-5.0 [facility] Comment on above: Performed By: #### 2 875592, 17463256, 7907089, 8282249, 4479433, 4758222 ####[facility] [address] [place] [address] Albumin/Globulin (S) [Mass conc ratio] 0.8 Low 1.1-2.2 [facility] Comment on above: Performed By: #### 2 022634, 56044603, 0286173, 1750243, 7758003, 2268688 ####[facility] [address] [place] [address] ALP [Catalytic activity/Vol] 72 Int._Unit/L Normal 21-98 [facility] Comment on above: Performed By: #### 2 392085, 49129870, 4071537, 8579751, 2472358, 0367252 ####[facility] [address] [place] [address] ALT No additional P-5'-P [Catalytic activity/Vol] 16 Int._Unit/L Normal 6-46 [facility] Comment on above: Performed By: #### 2 100903, 36064978, 7006419, 9314306, 1447596, 7455956 ####[facility] [address] [place] [address] AST [Catalytic activity/Vol] 16 Int._Unit/L Normal 5-43 [facility] Comment on above: Performed By: #### 2 111028, 02403379, 1553781, 2526880, 8315783, 6776041 ####[facility] [address] [place] [address] Bilirubin [Mass/Vol] 1.3 mg/dL High 0.0-1.1 [facility] Comment on above: Performed By: #### 2 863776, 31535469, 4201889, 8151972, 1928132, 4532322 ####[address] Bilirubin.direct [Mass/Vol] 0.2 mg/dL Normal 0.1-0.4 [facility] Comment on above: Performed By: #### 2 095593, 58536026, 9770222, 8898051, 8374379, 9366824 ####[address] [address] Bilirubin.indirect [Mass or moles/Vol] 1.1 mg/dL High 0.1-0.9 [facility] Comment on above: Performed By: #### 2 240088, 75387039, 4354102, 9030796, 8022386, 8903295 ####[facility] [address] [place] [address] Globulin (S) [Mass/Vol] 4.1 g/dL High 1.4-4.0 [facility] Comment on above: Performed By: #### 2 037389, 41110378, 3212576, 0561223, 4001552, 5431494 ####[facility] [address] [place] [address] Protein [Mass/Vol] 7.4 g/dL Normal 6.0-7.8 [facility] Comment on above: Performed By: #### 2 739335, 80437531, 7828244, 6213219, 6583302, 8319853 ####[facility] [address] [place] [address] Lipase Levelon 05-26-2023 Lipase [Catalytic activity/Vol] 33 U/L Normal 13-58 [facility] Comment on above: Performed By: #### 2 310042, 48532659, 3988940, 1156443, 4487323, 5434143 ####[address] [place] [address] RAD - Preliminary Cat Scan R eporton 05-26-2023 RAD - Preliminary Cat Scan Report [id number]# 1.00CD:127 Normal [facility] Troponin 0 Hr.on 05-26-2023 Troponin I.cardiac [Mass/Vol] 20.40 pg/mL Normal 10.10-27.10 [facility] Comment on above: Result Comment: The 95% CI (Confidence Interval) PPV (Positive Predictive Value) for myocardial infarction in females is 38 pg/mL, in males 51 pg/mL. The results should be used in conjunction with clinical conditions of myocardial infarction.(Access High Sensitivity Troponin I Instructions For Use, Jairo Elsy, March 2018) Performed By: #### 1 1036658 ####[facility] [address] [place] [address] UA With Cult Reflexon 2022 Bacteria LM Ql (Urine sed) 1+ /HPF Abnormal Trace [facility] Comment on above: Performed By: #### 1 9620766, 6407404 ####[facility] [address] [place] [address] Bilirubin Ql (U) Negative Normal Negative [facility] Comment on above: Performed By: #### 1 1154182, 0460498 ####[facility] [address] [place] [address] Clarity (U) CLOUDY Abnormal Clear [facility] Comment on above: Performed By: #### 1 3850464, 2133449 ####[facility] [address] [place] [address] Color (U) YELLOW Normal Yellow [facility] Comment on above: Performed By: #### 1 6680462, 0335941 ####[facility] [address] [place] [address] Epithelial cells.squamous LM.HPF (Urine sed) [#/Area] /[HPF] Normal 0-2 [facility] Comment on above: Performed By: #### 1 5950781, 0586803 ####[facility] [address] [place] [address] Glucose Test strip (U) [Mass/Vol] 3+ Abnormal Negative [facility] Comment on above: Performed By: #### 1 3072098, 5257142 ####[address] [address] Hemoglobin Ql (U) 2+ Abnormal Negative [facility] Comment on above: Performed By: #### 1 4498513, 9898503 ####[facility] [address] [place] [address] Ketones (U) [Mass/Vol] 1+ Abnormal Negative [facility] Comment on above: Performed By: #### 1 2597884, 3308113 ####[facility] [address] [place] [address] [place].plasma/Lithi um.RBC (Bld) [Mass ratio] 4-20 Normal 0-3 [facility] Comment on above: Performed By: #### 1 8349274, 2950655 ####[facility] [address] [place] [address] Nitrite Ql (U) Positive Abnormal Negative [facility] Comment on above: Performed By: #### 1 0702592, 7733496 ####[facility] [address] [place] [address] pH (U) 5.5 [pH] Invalid Interpretation Code 5.0-9.0 [facility] Comment on above: Performed By: #### 1 0308086, 3850842 ####[address] Protein (U) [Mass/Vol] 1+ Abnormal Negative [facility] Comment on above: Performed By: #### 1 4741014, 2107966 ####[place] [address] Specific gravity (U) [Rel density] 1.020 Invalid Interpretation Code 1.005-1.030 [facility] Comment on above: Performed By: #### 1 7166770, 7519170 ####[place] [address] Type of Urine collection method Clean Catch Normal [facility] Comment on above: Performed By: #### 1 1099973, 7857227 ####[place] [address] Urobilinogen Qn (U) 1.0 {Isis'U}/dL Normal 0.0-1.0 [facility] Comment on above: Performed By: #### 1 4102611, 9202249 ####[place] [address] WBC Auto Ql (U) 2+ Abnormal Negative [facility] Comment on above: Performed By: #### 1 2365398, 2830372 ####[address] WBC LM.HPF (Urine sed) [#/Area] /[HPF] Abnormal 0-5 [facility] Comment on above: Performed By: #### 1 5566154, 2121729 ####[address] URINALYSISOrdered By: Ike Loepz on 05-26-2023 Bacteria LM Ql (Urine sed) 1+ /HPF Invalid Interpretation Code Trace/HPF [facility] UA Auto SS Bilirubin Ql (U) Negative (05/26/23 11:08 PM) Normal Negative [facility] UA Auto SS Clarity (U) [...] Interpretation Code Negative [facility] UA Auto SS [place].plasma/Lithi um.RBC (Bld) [Mass ratio] 4-20 /HPF Normal [...] [facility] UA Auto SS Urobilinogen Qn (U) 1.2122173 {Isis'U}/dL Normal 0.0 - 1.0 EU/dL [facility] UA Auto SS WBC Auto Ql (U) 2+ *ABN* (05/26/23 11:08 PM) Invalid Interpretation Code Negative [facility] UA Auto SS WBC LM.HPF (Urine sed) [#/Area] /[HPF] Invalid Interpretation Code 0-5/HPF [facility] UA Auto SS eGFRon 05-26-2023 GFR/1.73 sq M.predicted among non-blacks MDRD (S/P/Bld) [Vol rate/Area] 28 mL/min/1.73 m2 Low >=59 [facility] Comment on above: Order Comment: Order added by Discern Expert. Result Comment: Manager Drilling maxi kidney disease could be indicated at eGFR's of less than 60 mL/min/1.73m2. Kidney failure is indicated at less than 15 mL/min/1.73m2. Performed By: #### 2 033700, 05041310, 8259092, 1154314, 2073385, 3910795 ####[facility] [address] [place] [address] Consent for Procedure/Surger yon 05-25-2023 Consent for Procedure/Surgery [id number] .00CD:127 Normal [facility] Consent for Treatmenton 05-01 Consent for Treatment [id number] .00CD:127 Normal [facility] IntraOperative Documentson 0 05-25-2023 IntraOperative Documents [id number]# 1.00CD:127 Normal [facility] IntraOperative Documents [id number] .00CD:127 Normal [facility] Main OR Intraoperative Recor don 05-25-2023 Main OR Intraoperative Record Normal [facility] Main OR Preoperative Recordo n 05-25-2023 Main OR Preoperative Record Normal [facility] Operative Reporton Operative Report Normal [facility] Comment on above: Result Comment: Elec tronically Signed By: JAILENE CHISHOLM, Glynn Neff.br\Date and Time Signed: 05/25/23 09:22 EDT Outpatient Surgery Discharge Instructionon 05-25-2023 Outpatient Surgery Discharge Instruction [id number] .00CD:127 Normal [facility] Patient Educationon 05-25-20 23 Patient Education Normal [facility] Calculus Analysison 05-17-20 Color (Stone) [place] Invalid Interpretation Code [facility] Comment on above: Order Comment: Stone calculi from left ureter for analysis Performed By: #### 1 2581004 ####[facility] [address] [place] [address] Composition Comment Invalid Interpretation Code [facility] Comment on above: Order Comment: Stone calculi from left ureter for analysis Result Comment: Perc entage (Represents the % composition) Performed By: #### 1 5456872 ####[address] [address] Disclaimer: Comment Invalid Interpretation Code [facility] Comment on above: Order Comment: Stone calculi from left ureter for analysis Result Comment: This test was developed and its performance characteristicsdetermined by [employer]. It has not been cleared or approvedby the Food and Drug Administration.Performed at: [facility] [employer] [id number] PhD Srini Bell Performed By: #### 1 8194831 ####[address] [address] Laboratory comment Hu (Report) Comment Invalid Interpretation Code [facility] Comment on above: Order Comment: Stone calculi from left ureter for analysis Result Comment: Nicolas arora questions regarding Calculi Analysis [facility] at: [phone]. Performed By: #### 1 5528005 ####[address] [address] Please Note: Comment Invalid Interpretation Code [facility] Comment on above: Order Comment: Stone calculi from left ureter for analysis Result Comment: Calc bernard report will follow via computer, mail or courierdelivery. Performed By: #### 1 1397912 ####[address] [place] [address] Size (Stone) [Entitic vol] 3x2 Invalid Interpretation Code [facility] Comment on above: Order Comment: Stone calculi from left ureter for analysis Result Comment: Mult iple pieces received. Dimensions of the largest piecereported. Performed By: #### 1 4133784 ####[address] [place] [address] Specimen source subject Nom Comment Invalid Interpretation Code [facility] Comment on above: Order Comment: Stone calculi from left ureter for analysis Result Comment: Left Ureter Performed By: #### 1 6540926 ####[facility] [address] [place] [address] Stone Photo Comment Invalid Interpretation Code [facility] Comment on above: Order Comment: Stone calculi from left ureter for analysis Result Comment: Phot ograph will follow under a separate cover Performed By: #### 1 7040176 ####[facility] [address] [place] [address] Urate (Stone) [Mass fraction] 100 % Invalid Interpretation Code [facility] Comment on above: Order Comment: Stone calculi from left ureter for analysis Performed By: #### 1 2617996 ####[address] [place] [address] Weight (Stone) 40 mg Invalid Interpretation Code [facility] Comment on above: Order Comment: Stone calculi from left ureter for analysis Performed By: #### 1 8030268 ####[facility] [address] [place] [address] Main OR Intraoperative Recor don 05-12-2023 Main OR Intraoperative Record Normal [facility] Auto Diffon 05-11-2023 Basophils/100 WBC (Bld) 0.2 % Normal 0.0-2.0 [facility] Comment on above: Order Comment: Order Added by Discern Expert. Performed By: #### 2 789024, 1372827 ####[facility] [address] [place] [address] Basophils/Leukocytes Auto (Bld) [Pure # fraction] 0.0 E9/L Normal 0.0-0.2 [facility] Comment on above: Order Comment: Order Added by Discern Expert. Performed By: #### 2 794762, 0597663 ####[facility] [address] [place] [address] Eosinophils/100 WBC (Bld) 0.1 % Normal 0.0-8.0 [facility] Comment on above: Order Comment: Order Added by Discern Expert. Performed By: #### 2 601610, 2526624 ####[address] [address] Eosinophils/Leukocyt es Auto (Bld) [Pure # fraction] 0.0 E9/L Normal 0.0-0.5 [facility] Comment on above: Order Comment: Order Added by Discern Expert. Performed By: #### 2 114352, 1352915 ####[address] [address] Lymphocytes/100 WBC (Bld) 10.0 % Low 14.0-50.0 [facility] Comment on above: Order Comment: Order Added by Discern Expert. Performed By: #### 2 046194, 8908620 ####[address] [address] Lymphocytes/Leukocyt es Auto (Bld) [Pure # fraction] 1.0 E9/L Normal 1.0-4.0 [facility] Comment on above: Order Comment: Order Added by Discern Expert. Performed By: #### 2 728870, 0029054 ####[address] [address] Monocytes/100 WBC (Bld) 5.6 % Normal 4.0-14.0 [facility] Comment on above: Order Comment: Order Added by Discern Expert. Performed By: #### 2 030092, 9829449 ####[address] [address] Monocytes/Leukocytes Auto (Bld) [Pure # fraction] 0.6 E9/L Normal 0.2-1.0 [facility] Comment on above: Order Comment: Order Added by Discern Expert. Performed By: #### 2 967272, 0868547 ####[address] [address] Neutrophils/100 WBC (Bld) 84.1 % High 36.0-75.0 [facility] Comment on above: Order Comment: Order Added by Discern Expert. Performed By: #### 2 394564, 3697168 ####[facility] [address] [place] [address] Neutrophils/Leukocyt es Auto (Bld) [Pure # fraction] 8.8 E9/L High 2.0-7.5 [facility] Comment on above: Order Comment: Order Added by Discern Expert. Performed By: #### 2 570411, 0632637 ####[address] [address] C Urineon 05-11-2023 Bacteria identified Cx Nom (U) Normal [facility] Comment on above: Performed By: #### 2 345689, 14224996 ####[address] [address] CBC w/ Auto Diffon Erythrocyte distribution width (RBC) [Ratio] 13.7 % Normal 10.9-14.2 [facility] Comment on above: Performed By: #### 2 070296, 7064751 ####[address] [address] Hematocrit (Bld) [Volume fraction] 37.9 % Normal 34.0-46.0 [facility] Comment on above: Performed By: #### 2 805423, 8423176 ####[address] [address] Hemoglobin (Bld) [Mass/Vol] 13.0 g/dL Normal 12.0-16.0 [facility] Comment on above: Performed By: #### 2 025179, 6473929 ####[address] [address] MCH (RBC) [Entitic mass] 31.8 pg Normal 27.0-34.0 [facility] Comment on above: Performed By: #### 2 271643, 6427496 ####[facility] [address] [place] [address] MCHC (RBC) [Mass/Vol] 34.4 g/dL Normal 31.4-36.0 [facility] Comment on above: Performed By: #### 2 004323, 8713132 ####[address] [address] MCV (RBC) [Entitic vol] 92.5 fL Normal 80.0-100.0 [facility] Comment on above: Performed By: #### 2 534056, 9768818 ####[address] [address] Platelet mean volume (Bld) [Entitic vol] 8.2 fL Normal 6.4-10.8 [facility] Comment on above: Performed By: #### 2 611786, 3323868 ####[address] [address] Platelets (Bld) [#/Vol] 161.0 E9/L Normal 150.0-500.0 [facility] Comment on above: Performed By: #### 2 024859, 1643879 ####[address] [address] RBC (Bld) [#/Vol] 4.1 E12/L Low 4.3-5.9 [facility] Comment on above: Performed By: #### 2 972007, 9815711 ####[address] [address] WBC corrected for nucl RBC Auto (Bld) [#/Vol] 10.5 E9/L Normal 4.0-11.0 [facility] Comment on above: Performed By: #### 2 437977, 8252220 ####[address] [address] CHEMISTRYOrdered By: Lab ROP User on 05-11-2023 Glucose [Mass/Vol] 226 mg/dL High 55 - 99 mg/dL FT C POC Subsection Comment on above: Result Comment: Modesto vanegas RN/ POC Device SN [id number] Invalid Interpretation Code [facility] POC Subsection POC User ID [id number] Invalid Interpretation Code [facility] POC Subsection POC Username CORNELIA ZAMBRANO Invalid Interpretation Code [facility] POC Subsection Capillary Glucose POCon 04-30 Glucose [Mass/Vol] 226 mg/dL High 55-99 [facility] Comment on above: Result Comment: Modesto vanegas RN/ Performed By: #### 2 [id number] ####[facility] [address] [place] [address] Discharge Instructionson Discharge Instructions [id number]# 1.00CD:127 Normal [facility] Discharge Note-Nursingon Discharge Note-Nursing Normal [address], [address] [place] [address]- \.br\ New Follow Up Appointments after Discharge\.br\ Follow Up with Glynn DENT When: 05/17/2023 01:30 PM EDT\.br\ Where:\.br\ [facility]\.br\ [address]br\ [place] [address]-\.br\ Business (1)\.br\ Follow Up with ALBERTINA ARNDT When: 05/17/2023 09:30 AM EDT\.br\ Where:\.br\ [address] [facility]\.br\ [facility] [place] [address]-\.br\ Business (1)\.br\ Medications\.br\ What How Much When Why Instructions Next Dose\.br\ Changed cephalexin (Keflex 500 mg Cap) 1 Capsules By Mouth 3 times a day Duration: 5 Days Pickup at [email or web address] #[id number] 05-11-23 3 pm\.br\ Unchanged atorvastatin (atorvastatin 40 [...] Tablets By Mouth Every day Pickup at [facility] #72 05-12-23 9 am\.br\ Pharmacy Information\.br\ [facility] #[facility]: [address] [place], [place] [id number] [phone]\.br\ [facility] #[id number]: [address], [place] [id number] [phone]\.br\ Test Results\.br\ CBC \.br\ BMP \.br\ WBC: [...] Ureter L\.br\ STENT URETERAL 6FR LENGTH 22-32CM [[id number]] 05/09/2023, Unknown - JOSE FRANCISCO: {01}[id number] 89{17}[id number]{10} [id number]\.br\ Common Emergency Awareness Tips\.br\ IS IT A [...] signed up for this yet, please contact [email or web address] at [phone] to get signed up today.\.br\ \.br\ Patient Name: SHAHANA GRACE\.br\ I have received this information and my questions have been answered.\.br\ Patient/Represen tative Name: ____\.br\ Patient/Represen tative Signature: ____\.br\ Relationship to Patient: ____\.br\ Witness Name/Signature: ____\.br\ Date: ____\.br\ [facility] HEMATOLOGYOrdered By: SYSTEM SYSTEM on 05-11-2023 [...] Clinical Summaryon 05-11-2023 Inpatient Clinical Summary Normal [facility] Inpatient Patient Summaryon 05-11-2023 Inpatient Patient Summary Normal [facility] Message from Medicareon 04-30 Message from Medicare [id number]# 1.00CD:127 Normal [facility] Monitor Recordon 05-11-2023 Monitor Record [id number]# 1.00CD:127 Normal [facility] Monitor Record [id number]# 1.00CD:127 Normal [facility] Monitor Record [id number]# 1.00CD:127 Normal [facility] Auto Diffon 05-10-2023 Basophils/100 WBC (Bld) 0.1 % Normal 0.0-2.0 [facility] Comment on above: Order Comment: Order Added by Discern Expert. Performed By: #### 2 239271, 2201363, 6476631, 06072372 ####[address] [address] Basophils/Leukocytes Auto (Bld) [Pure # fraction] 0.0 E9/L Normal 0.0-0.2 [facility] Comment on above: Order Comment: Order Added by Discern Expert. Performed By: #### 2 355720, 4459084, 8731942, 95445767 ####[address] [address] Eosinophils/100 WBC (Bld) 0.0 % Normal 0.0-8.0 [facility] Comment on above: Order Comment: Order Added by Discern Expert. Performed By: #### 2 241528, 5525323, 2634200, 04962659 ####[address] [place] [address] Eosinophils/Leukocyt es Auto (Bld) [Pure # fraction] 0.0 E9/L Normal 0.0-0.5 [facility] Comment on above: Order Comment: Order Added by Discern Expert. Performed By: #### 2 365014, 1942517, 6443624, 31353990 ####[address] [address] Lymphocytes/100 WBC (Bld) 6.5 % Low 14.0-50.0 [facility] Comment on above: Order Comment: Order Added by Christen Expert. Performed By: #### 2 367523, 3078314, 7122046, 25018331 ####[facility] [address] [place] [address] Lymphocytes/Leukocyt es Auto (Bld) [Pure # fraction] 1.1 E9/L Normal 1.0-4.0 [facility] Comment on above: Order Comment: Order Added by Discern Expert. Performed By: #### 2 467343, 0551819, 1823268, 17805118 ####[facility] [address] [place] [address] Monocytes/100 WBC (Bld) 4.2 % Normal 4.0-14.0 [facility] Comment on above: Order Comment: Order Added by Christen Expert. Performed By: #### 2 751627, 1755640, 1605216, 99937434 ####[address] [address] Monocytes/Leukocytes Auto (Bld) [Pure # fraction] 0.7 E9/L Normal 0.2-1.0 [facility] Comment on above: Order Comment: Order Added by Christen Expert. Performed By: #### 2 035152, 1022203, 4450810, 91288353 ####[address] [address] Neutrophils/100 WBC (Bld) 89.2 % High 36.0-75.0 [facility] Comment on above: Order Comment: Order Added by Christen Expert. Performed By: #### 2 805329, 0393070, 1798441, 89393169 ####[address] [place] [address] Neutrophils/Leukocyt es Auto (Bld) [Pure # fraction] 14.7 E9/L High 2.0-7.5 [facility] Comment on above: Order Comment: Order Added by Christen Expert. Performed By: #### 2 740446, 1440085, 6835065, 95685893 ####[address] [place] [address] BMPon 05-10-2023 Creatinine [Mass/Vol] 1.4 mg/dL High 0.5-1.3 [facility] Comment on above: Performed By: #### 2 995900, 7448351, 8015205, 06602740 ####[facility] [address] [place] [address] Urea nitrogen [Mass/Vol] 30 mg/dL High 5-21 [facility] Comment on above: Performed By: #### 2 378171, 6762602, 7116357, 08533166 ####[facility] [address] [place] [address] Urea nitrogen/Creatinine [Mass ratio] 21 No Units High 10-20 [facility] Comment on above: Performed By: #### 2 614100, 7475072, 3944424, 59085160 ####[facility] [address] [place] [address] Anion gap [Moles/Vol] 12 mmol/L Normal 6-16 [facility] Comment on above: Performed By: #### 2 165016, 6314377, 5276047, 47044619 ####[facility] [address] [place] [address] Calcium [Mass/Vol] 8.3 mg/dL Low 8.9-11.1 [facility] Comment on above: Performed By: #### 2 725757, 3209932, 2437675, 80627237 ####[facility] [address] [place] [address] Chloride [Moles/Vol] 111 mmol/L Normal 101-111 [facility] Comment on above: Performed By: #### 2 427910, 6304480, 4686402, 19870776 ####[facility] [address] [place] [address] CO2 [Moles/Vol] 22 mmol/L Normal 21-31 [facility] Comment on above: Performed By: #### 2 654557, 2951123, 2037103, 92207611 ####[facility] [address] [place] [address] Glucose [Mass/Vol] 256 mg/dL High 55-199 [facility] Comment on above: Result Comment: If t his glucose result represents a fasting glucose, interpretation should refer to the following reference range: 55-99 mg/dL Performed By: #### 2 919658, 2471748, 9494975, 55228380 ####[facility] [address] [place] [address] Potassium [Moles/Vol] 3.7 mmol/L Normal 3.5-5.3 [facility] Comment on above: Performed By: #### 2 903874, 7612392, 8510448, 56301327 ####[facility] [address] [place] [address] Sodium [Moles/Vol] 141 mmol/L Normal 135-145 [facility] Comment on above: Performed By: #### 2 408945, 2134823, 8863867, 08776041 ####[facility] [address] [place] [address] CBC w/ Auto Diffon 3 Erythrocyte distribution width (RBC) [Ratio] 13.8 % Normal 10.9-14.2 [facility] Comment on above: Performed By: #### 2 141084, 2693739, 0045335, 25196830 ####[facility] [address] [place] [address] Hematocrit (Bld) [Volume fraction] 41.7 % Normal 34.0-46.0 [facility] Comment on above: Performed By: #### 2 082788, 7015119, 4125126, 87573227 ####[facility] [address] [place] [address] Hemoglobin (Bld) [Mass/Vol] 14.4 g/dL Normal 12.0-16.0 [facility] Comment on above: Performed By: #### 2 714425, 1231199, 7274786, 00751281 ####[facility] [address] [place] [address] MCH (RBC) [Entitic mass] 31.1 pg Normal 27.0-34.0 [facility] Comment on above: Performed By: #### 2 533798, 0241221, 5155739, 53586265 ####[address] [address] MCHC (RBC) [Mass/Vol] 34.4 g/dL Normal 31.4-36.0 [facility] Comment on above: Performed By: #### 2 117183, 1547492, 2181679, 73298738 ####[address] [address] MCV (RBC) [Entitic vol] 90.2 fL Normal 80.0-100.0 [facility] Comment on above: Performed By: #### 2 089476, 5531107, 7482448, 51381327 ####[address] [address] Platelet mean volume (Bld) [Entitic vol] 7.8 fL Normal 6.4-10.8 [facility] Comment on above: Performed By: #### 2 287323, 5316864, 5685798, 10355629 ####[address] [address] Platelets (Bld) [#/Vol] 171.0 E9/L Normal 150.0-500.0 [facility] Comment on above: Performed By: #### 2 573113, 1002832, 0024630, 34638689 ####[address] [address] RBC (Bld) [#/Vol] 4.6 E12/L Normal 4.3-5.9 [facility] Comment on above: Performed By: #### 2 409649, 5358132, 2410060, 46645343 ####[address] [address] WBC corrected for nucl RBC Auto (Bld) [#/Vol] 16.5 E9/L High 4.0-11.0 [facility] Comment on above: Result Comment: Leidy pérez reviewed by TLP. Performed By: #### 2 706421, 1089735, 7280053, 20897095 ####[facility] [address] [place] [address] CHEMISTRYOrdered By: Lab ROP User on 05-10-2023 Glucose [Mass/Vol] 336 mg/dL High 55 - 99 mg/dL FTM C POC Subsection Comment on above: Result Comment: Modesto vanegas RN/ POC Device SN [id number] Invalid Interpretation Code FT POC Subsection POC User ID [id number] Invalid Interpretation Code [facility] POC Subsection POC Username FREDDIE GUY Invalid Interpretation Code [facility] POC Subsection Glucose [Mass/Vol] 299 mg/dL High 55 - 99 mg/dL FTM C POC Subsection Comment on above: Result Comment: Modesto vanegas RN/ Cleaned Meter POC Device SN [id number] Invalid Interpretation Code [facility] POC Subsection POC User ID [id number] Invalid Interpretation Code [facility] POC Subsection POC Username MAURICE POST Invalid Interpretation Code [facility] POC Subsection CHEMISTRYOrdered By: SYSTEM SYSTEM on 05-10-2023 Anion gap [Moles/Vol] 12 mmol/L Normal 6 - 16 mEq/L [facility] Remisol Calcium [Mass/Vol] 8.3 mg/dL Low 8.9 - 11.1 mg/dL [facility] Remisol Chloride [Moles/Vol] 111 mmol/L Normal 101 - 111 mmol/ L [facility] Remisol CO2 [Moles/Vol] 22 mmol/L Normal 21 - 31 mmol/L [facility] Remisol Creatinine [Mass/Vol] 1.4 mg/dL High 0.5 - 1.3 mg/dL [facility] Remisol GFR/1.73 sq M.predicted among non-blacks MDRD (S/P/Bld) [Vol rate/Area] 40 mL/min/1.73 m2 Low >=59mL/min/1.73 m2 [facility] Chem S Glucose [Mass/Vol] 256 mg/dL High 55 - 199 mg/dL FT Remisol Potassium [Moles/Vol] 3.7 mmol/L Normal 3.5 - 5.3 mmol/L [facility] Remisol Sodium [Moles/Vol] 141 mmol/L Normal 135 - 145 mmol/L [facility] Remisol Urea nitrogen [Mass/Vol] 30 mg/dL High 5 - 21 mg/dL [facility] Remisol Urea nitrogen/Creatinine [Mass ratio] 21 mg/mg High 10 - 20 [facility] Remisol Capillary Glucose POCon 04-30 Glucose [Mass/Vol] 336 mg/dL High 55-99 [facility] Comment on above: Result Comment: Modesto vanegas RN/ Performed By: #### 2 [id number] ####[facility] [address] [place] [address] Glucose [Mass/Vol] 299 mg/dL High [address] [place] [address] Comment on above: Result Comment: Modesto ZAMORAleaned Meter Performed By: #### 2 20158039 ####[facility] [address] [place] [address] Glucose [Mass/Vol] 314 mg/dL High [address] [place] [address] Comment on above: Result Comment: Modesto vanegas RN/ Performed By: #### 2 92100925 ####[facility] [address] [place] [address] Glucose [Mass/Vol] 249 mg/dL High [address] [place] [address] Comment on above: Result Comment: Modesto vanegas RN/ Performed By: #### 2 58623240 ####[facility] [address] [place] [address] Glucose [Mass/Vol] 247 mg/dL High [address] [place] [address] Comment on above: Result Comment: Modesto vanegas RN/ Performed By: #### 2 85039383 ####[facility] [address] [place] [address] Glucose [Mass/Vol] 302 mg/dL High [address] [place] [address] Comment on above: Result Comment: Modesto vanegas RN/ Performed By: #### 2 66281540 ####[facility] [address] [place] [address] Consent for Anesthesiaon Consent for Anesthesia [id number]# 1.00CD:127 Normal [facility] Consent for Procedure/Surger yon 05-10-2023 Consent for Procedure/Surgery [id number]# 1.00CD:127 Normal [facility] HEMATOLOGYOrdered By: SYSTEM SYSTEM on 05-10-2023 [...] Result Comment: Slid e reviewed by TLP. YouP1twt 05-10-2023 HbA1c (Bld) [Mass fraction] 10.1 % High <=5.9 [facility] Comment on above: Performed By: #### 7 [id number] ####[facility] [address] [place] [address] Insurance Correspondence Off iceon 05-10-2023 Insurance Correspondence Office [id number]#1 .00CD:127 Normal [facility] Interdisciplinary Note - Galo e Manageron 05-10-2023 Interdisciplinary Note - Ring Stamper Normal [facility] Comment on above: Result Comment: Elec tronically Signed By: Rayne Carpenter\Date and Time Signed: 05/10/23 15:00 EDT Interdisciplinary Note - Arabella n 05-10-2023 Interdisciplinary Note - OT OT [facility] six clicks score 22/24 = no further OT needs. Patient was Ind w/ basic adls/transfers in her room. Dc inpatient OT services. Normal [facility] IntraOperative Documentson 0 05-10-2023 IntraOperative Documents [id number]# 1.00CD:127 Normal [facility] Monitor Recordon 05-10-2023 Monitor Record [id number]# 1.00CD:127 Normal [facility] Monitor Record [id number]# 1.00CD:127 Normal [facility] Progress Note-Physicianon Progress Note-Physician Normal [facility] Comment on above: Result Comment: Elec tronically Signed By: ROSEMARY CHISHOLM, Ck\.br\Date and Time Signed: 05/10/23 11:23 EDT XR Abdomen 1 Viewon 05-10-20 23 XR Abdomen 1 View Normal [facility] eGFRon 05-10-2023 GFR/1.73 sq M.predicted among non-blacks MDRD (S/P/Bld) [Vol rate/Area] 40 mL/min/1.73 m2 Low >=59 [facility] Comment on above: Order Comment: Order added by Discern Expert. Result Comment: Manager Drilling maxi kidney disease could be indicated at eGFR's of less than 60 mL/min/1.73m2. Kidney failure is indicated at less than 15 mL/min/1.73m2. Performed By: #### 2 071571, 7326882, 7369301, 59322020 ####[facility] [address] [place] [address] Auto Diffon 05-09-2023 Basophils/100 WBC (Bld) 0.5 % Normal 0.0-2.0 [facility] Comment on above: Order Comment: Order Added by Discern Expert. Performed By: #### 1 8279876, 9459745, 52093125, 2731119, 1654484, 7215246, 8596885, 9624761, 05590194 ####[facility] [address] [place] [address] Basophils/Leukocytes Auto (Bld) [Pure # fraction] 0.1 E9/L Normal 0.0-0.2 [facility] Comment on above: Order Comment: Order Added by Christen Expert. Performed By: #### 1 7817406, 5060521, 78956282, 7281845, 3764027, 7765122, 0472321, 1517461, 11218478 ####[facility] [address] [place] [address] Eosinophils/100 WBC (Bld) 0.2 % Normal 0.0-8.0 [facility] Comment on above: Order Comment: Order Added by Discern Expert. Performed By: #### 1 4967107, 3536412, 75711385, 7927998, 2927902, 0555697, 2549514, 5426838, 60585633 ####[address] [place] [address] Eosinophils/Leukocyt es Auto (Bld) [Pure # fraction] 0.0 E9/L Normal 0.0-0.5 [facility] Comment on above: Order Comment: Order Added by Christen Expert. Performed By: #### 1 5558361, 0745841, 21659049, 1312038, 8211055, 1125489, 9492871, 1250953, 35492558 ####[address] [place] [address] Lymphocytes/100 WBC (Bld) 6.1 % Low 14.0-50.0 [facility] Comment on above: Order Comment: Order Added by Christen Expert. Performed By: #### 1 2215298, 4887739, 76940918, 5118857, 4068871, 1813741, 2944145, 4194881, 72188808 ####[address] [place] [address] Lymphocytes/Leukocyt es Auto (Bld) [Pure # fraction] 1.0 E9/L Normal 1.0-4.0 [facility] Comment on above: Order Comment: Order Added by Christen Expert. Performed By: #### 1 1965790, 1652636, 51168475, 3271295, 2784034, 8325205, 1865927, 9821901, 35161973 ####[facility] [address] [place] [address] Monocytes/100 WBC (Bld) 7.4 % Normal 4.0-14.0 [facility] Comment on above: Order Comment: Order Added by Discern Expert. Performed By: #### 1 5926942, 3848225, 44019761, 0769719, 7472071, 4904946, 3676371, 9270660, 28567680 ####[address] [place] [address] Monocytes/Leukocytes Auto (Bld) [Pure # fraction] 1.2 E9/L High 0.2-1.0 [facility] Comment on above: Order Comment: Order Added by Discern Expert. Performed By: #### 1 0499702, 0002132, 78004260, 8202731, 7629013, 4450472, 2370991, 2957777, 97937420 ####[address] [place] [address] Neutrophils/100 WBC (Bld) 85.8 % High 36.0-75.0 [facility] Comment on above: Order Comment: Order Added by Discern Expert. Performed By: #### 1 4140356, 7104355, 85269966, 1029439, 5851452, 6221205, 0572790, 7658716, 65454622 ####[address] [place] [address] Neutrophils/Leukocyt es Auto (Bld) [Pure # fraction] 13.6 E9/L High 2.0-7.5 [facility] Comment on above: Order Comment: Order Added by Discern Expert. Performed By: #### 1 1871074, 7324708, 15028222, 1318575, 8890308, 0102660, 5679032, 8233565, 83255032 ####[facility] [address] [place] [address] BMPon 05-09-2023 Creatinine [Mass/Vol] 1.6 mg/dL High 0.5-1.3 [facility] Comment on above: Performed By: #### 1 8112842, 3176471, 35523490, 5393487, 1340374, 2890965, 5870632, 6212346, 40323229 ####[facility] [address] [place] [address] Urea nitrogen [Mass/Vol] 23 mg/dL High 5-21 [facility] Comment on above: Performed By: #### 1 8877819, 9584880, 79133886, 0704963, 5822374, 0994376, 1882229, 6760633, 36777935 ####[facility] [address] [place] [address] Urea nitrogen/Creatinine [Mass ratio] 14 No Units Normal 10-20 [facility] Comment on above: Performed By: #### 1 6492688, 6501023, 75473384, 5283906, 6715156, 1381372, 2645785, 0233757, 85205939 ####[facility] [address] [place] [address] Anion gap [Moles/Vol] 10 mmol/L Normal 6-16 [facility] Comment on above: Performed By: #### 1 1398731, 4460803, 93187259, 9276549, 2885765, 9704794, 1067386, 2146860, 30290888 ####[facility] [address] [place] [address] Calcium [Mass/Vol] 9.0 mg/dL Normal 8.9-11.1 [facility] Comment on above: Performed By: #### 1 5640285, 6415311, 78540737, 7701224, 0807988, 3757055, 9387313, 2672198, 89046651 ####[facility] [address] [place] [address] Chloride [Moles/Vol] 111 mmol/L Normal 101-111 [facility] Comment on above: Performed By: #### 1 8479938, 2273990, 97059974, 9778528, 4027847, 1141986, 1935974, 7546449, 08465021 ####[facility] [address] [place] [address] CO2 [Moles/Vol] 24 mmol/L Normal 21-31 [facility] Comment on above: Performed By: #### 1 1135851, 5157840, 82835238, 0648336, 1033953, 7882087, 4611789, 2303512, 47282668 ####[facility] [address] [place] [address] Glucose [Mass/Vol] 419 mg/dL High 55-199 [facility] Comment on above: Result Comment: If t his glucose result represents a fasting glucose, interpretation should refer to the following reference range: 55-99 mg/dL Performed By: #### 1 7971596, 2844886, 95079038, 9563276, 8408300, 1891047, 0388029, 9970731, 57852009 ####[facility] [address] [place] [address] Potassium [Moles/Vol] 4.0 mmol/L Normal 3.5-5.3 [facility] Comment on above: Performed By: #### 1 2736246, 9652371, 00988009, 9524610, 5094194, 2831164, 0387888, 9751471, 04562472 ####[facility] [address] [place] [address] Sodium [Moles/Vol] 141 mmol/L Normal 135-145 [facility] Comment on above: Performed By: #### 1 2246045, 6375628, 36981456, 0717142, 8217855, 2424498, 6840834, 5968397, 03905767 ####[facility] [address] [place] [address] CBC w/ Auto Diffon 3 Erythrocyte distribution width (RBC) [Ratio] 13.8 % Normal 10.9-14.2 [facility] Comment on above: Performed By: #### 1 0254108, 4959311, 36108225, 8196081, 2618568, 6571243, 1564759, 5800659, 18638918 ####[address] [place] [address] Hematocrit (Bld) [Volume fraction] 46.4 % High 34.0-46.0 [facility] Comment on above: Performed By: #### 1 8307795, 4646078, 34756037, 4585746, 9098159, 6063004, 9095943, 4896588, 29640555 ####[address] [address] Hemoglobin (Bld) [Mass/Vol] 16.0 g/dL Normal 12.0-16.0 [facility] Comment on above: Performed By: #### 1 8483345, 5750795, 31865581, 4937099, 7693849, 5148693, 4910563, 2431202, 87620262 ####[address] [address] MCH (RBC) [Entitic mass] 31.1 pg Normal 27.0-34.0 [facility] Comment on above: Performed By: #### 1 1890834, 7401949, 99726592, 2193606, 1116308, 0192562, 3702452, 8879281, 65375587 ####00 [address] [address] MCHC (RBC) [Mass/Vol] 34.4 g/dL Normal 31.4-36.0 [facility] Comment on above: Performed By: #### 1 [id number], 5587080, 66697955, 2006503, 2292717, 0898130, 3569899, 1837996, 63869047 ####[address] [address] MCV (RBC) [Entitic vol] 90.4 fL Normal 80.0-100.0 [facility] Comment on above: Performed By: #### 1 5571489, 7448326, 20953210, 2833732, 5660968, 2851535, 8869864, 8633884, 75387588 ####[facility] [address] [place] [address] Platelet mean volume (Bld) [Entitic vol] 7.6 fL Normal 6.4-10.8 [facility] Comment on above: Performed By: #### 1 7647678, 2613346, 16747570, 6158145, 0368847, 4492739, 7587329, 4307990, 49202200 ####[facility] [address] [place] [address] Platelets (Bld) [#/Vol] 181.0 E9/L Normal 150.0-500.0 [facility] Comment on above: Performed By: #### 1 8033088, 8332010, 45589522, 5065720, 0931537, 2034101, 6980128, 3881186, 37863295 ####[facility] [address] [place] [address] RBC (Bld) [#/Vol] 5.1 E12/L Normal 4.3-5.9 [facility] Comment on above: Performed By: #### 1 1070718, 0608716, 77514022, 2916001, 8989553, 8325573, 9519727, 8197596, 55059047 ####[facility] [address] [place] [address] WBC corrected for nucl RBC Auto (Bld) [#/Vol] 15.9 E9/L High 4.0-11.0 [facility] Comment on above: Performed By: #### 1 3855173, 5671733, 00991501, 5262595, 8426216, 0556042, 5495968, 4756373, 86566808 ####[facility] [address] [place] [address] CHEMISTRYOrdered By: SYSTEM SYSTEM on 05-09-2023 Glucose [Mass/Vol] 460 mg/dL Invalid Interpretation Code 55 - 199 mg/dL [facility] Comment on above: Result Comment: Crit ical Result verified by repeat analysis\Critical Result S_GLU:[id number] [facility] SHELLY FERNANDO And Read [...] 1.8 mmol/L Normal 0.5 - 2.2 mmol/L [facility] Remisol Lipase [Catalytic activity/Vol] 70 U/L High 13 - 58 unit/L [facility] Remisol Potassium [Moles/Vol] 4.0 mmol/L Normal 3.5 - 5.3 mmol/L [facility] Remisol Protein [Mass/Vol] 7.0 g/dL Normal 6.0 - 7.8 gm/dL [facility] Remisol Sodium [Moles/Vol] 141 mmol/L Normal 135 - 145 mmol/L [facility] Remisol Troponin I.cardiac [Mass/Vol] 15.10 pg/mL Normal 10.10 - 27.10 pg/mL [facility] Remisol Urea nitrogen [Mass/Vol] 23 mg/dL High 5 - 21 mg/dL [facility] Remisol Urea nitrogen/Creatinine [Mass ratio] 14 mg/mg Normal 10 - 20 [facility] Remisol CHEMISTRYOrdered By: Nayely Dawkins on 05-09-2023 HbA1c (Bld) [Mass fraction] 10.1 % High <=5.9% [facility] ChemAutoSS COAGULATIONOrdered By: Claudio Jones on 05-09-2023 aPTT Coag (PPP) [Time] 23.7 s Low 25.1 - 36.5 second(s) [facility] Auto Coag INR Coag (PPP) [Relative time] 0.9 {INR} Invalid Interpretation Code [facility] Auto Coag PT Coag (PPP) [Time] 10.0 s Normal 9.4 - 1 2.5 second(s) [facility] Auto Coag CT Abdomen/Pelvis w/o Contra ston 05-09-2023 CT Abdomen/Pelvis w/o Contrast Normal [facility] Capillary Glucose POCon 04-30 Glucose [Mass/Vol] 495 mg/dL Abnormal 55- [facility] Comment on above: Result Comment: Modesto vanegas RN/ Performed By: #### 2 [id number] ####[facility] [address] [place] [address] Glucose Cap >500 Abnormal 55-99 [facility] Comment on above: Result Comment: Modesto ANDRES Performed By: #### 2 [id number] ####[facility] [address] [place] [address] Glucose [Mass/Vol] 434 mg/dL High 55-99 [facility] Comment on above: Result Comment: Modesto ANDRES Performed By: #### 2 [id number] ####[facility] [address] [place] [address] Consent for Treatmenton 04-30 Consent for Treatment [id number] .00CD:127 Normal [facility] Consultation Noteon 05-09-20 Consultation Note Normal [facility] Comment on above: Result Comment: Elec tronically Signed By: JAILENE CHISHOLM, Glynn Mcdermott\.br\Date and Time Signed: 05/09/23 14:07 EDT ED Clinical Summaryon 2022 ED Clinical Summary Normal [facility] ED Note-Physicianon 05-09-20 ED Note-Physician Normal [facility] Comment on above: Result Comment: Elec tronically Signed By: Lazara Larios PA-C\.br\Date and Time Signed: 05/09/23 12:01 EDT\.br\Electronically Co-Signed By: Noe Azar DO\.br\Date and Time Co-Signed: 05/09/23 16:06 EDT ED Patient Education Noteon 05-09-2023 ED Patient Education Note Normal [facility] ED Patient Summaryon 023 ED Patient Summary Normal [facility] Glucoseon 05-09-2023 Glucose [Mass/Vol] 460 mg/dL Abnormal 55-199 [facility] Comment on above: Order Comment: Finge rstick blood sugar is >450. Blood sugar blood draw ordered per protocol. Result Comment: Crit ical Result verified by repeat analysis\Critical Result S_GLU:[id number] [facility]S by SHELLY FERNANDO And Read Back For Confirmation at: 05/09/2023 22:21:19 Performed By: #### 2 037239 ####[facility] [address] [place] [address] HEMATOLOGYOrdered By: SYSTEM SYSTEM on 05-09-2023 Basophils/100 [...] 7.6 fL Normal 6.4 - 10.8 fL FT HemeAutoSS Platelets (Bld) [#/Vol] 181.0 E9/L Normal 150.0 - 500.0 E9/L FT HemeAutoSS RBC (Bld) [#/Vol] 5.1 E12/L Normal 4.3 - 5.9 E12/L FT HemeAutoSS WBC corrected for nucl RBC Auto (Bld) [#/Vol] 15.9 E9/L High 4.0 - 11.0 E9/L [facility] HemeAutoSS Hep Func Panelon 05-09-2023 Albumin [Mass/Vol] 3.5 g/dL Normal 3.3-5.0 [facility] Comment on above: Performed By: #### 1 4634681, 4029906, 32615808, 3371826, 7005092, 0331983, 0787368, 9793438, 58518715 ####[facility] [address] [place] [address] Albumin/Globulin (S) [Mass conc ratio] 1.0 Low 1.1-2.2 [facility] Comment on above: Performed By: #### 1 1966108, 6994425, 89400732, 3982455, 8343751, 0438230, 4082086, 9749665, 45796872 ####[facility] [address] [place] [address] ALP [Catalytic activity/Vol] 68 Int._Unit/L Normal 21-98 [facility] Comment on above: Performed By: #### 1 0095072, 0262229, 13866355, 6060648, 7061158, 9373519, 2596455, 7201537, 81694226 ####[facility] [address] [place] [address] ALT No additional P-5'-P [Catalytic activity/Vol] 18 Int._Unit/L Normal 6-46 [facility] Comment on above: Performed By: #### 1 0019575, 7144360, 20389573, 9658145, 6018490, 3786222, 7100309, 2871223, 25869715 ####[address] [place] [address] AST [Catalytic activity/Vol] 18 Int._Unit/L Normal 5-43 [facility] Comment on above: Performed By: #### 1 6879030, 2120537, 24587773, 1276431, 8084921, 2242306, 2763815, 2149275, 03526693 ####[address] [place] [address] Bilirubin [Mass/Vol] 0.9 mg/dL Normal 0.0-1.1 [facility] Comment on above: Performed By: #### 1 8073299, 7150730, 58610517, 0904079, 2523294, 5284383, 4761493, 0536350, 16520058 ####[place] [address] Bilirubin.direct [Mass/Vol] 0.2 mg/dL Normal 0.1-0.4 [facility] Comment on above: Performed By: #### 1 5651800, 9175239, 49204891, 3197541, 7589043, 5750989, 5543819, 4303858, 52765456 ####[address] [place] [address] Bilirubin.indirect [Mass or moles/Vol] 0.7 mg/dL Normal 0.1-0.9 [facility] Comment on above: Performed By: #### 1 0226336, 4868804, 61557665, 4422757, 4343101, 1418915, 6708358, 6656146, 44776265 ####[address] [place] [address] Globulin (S) [Mass/Vol] 3.5 g/dL Normal 1.4-4.0 [facility] Comment on above: Performed By: #### 1 4325283, 2113252, 76593960, 4656740, 3999200, 8528693, 3029019, 7724984, 11364406 ####[facility] [address] [place] [address] Protein [Mass/Vol] 7.0 g/dL Normal 6.0-7.8 [facility] Comment on above: Performed By: #### 1 1323716, 4491483, 93549894, 1531499, 1250243, 4106280, 3380135, 6735835, 64224812 ####[facility] [address] [place] [address] Laboratory - Microbiology an d Antimicrobial susceptibilityOrdered By: Nata Prieto on 05-09-2023 Bacteria identified Cx Nom (U) <10,000 cfu/ml Mixed skin contaminants [facility] Lactic Acidon 05-09-2023 Lactate [Mass/Vol] 1.8 mmol/L Normal 0.5-2.2 [facility] Comment on above: Performed By: #### 1 4377716, 6968100, 06308359, 7759857, 4989798, 3056834, 6140198, 0148573, 28065808 ####[facility] [address] [place] [address] Lipase Levelon 05-09-2023 Lipase [Catalytic activity/Vol] 70 U/L High 13-58 [facility] Comment on above: Performed By: #### 1 0748789, 3594167, 43039146, 3464869, 8868252, 1185991, 5156310, 6240987, 89637377 ####[facility] [address] [place] [address] Main OR PACU I Recordon 04-30 Main OR PACU I Record Normal [facility] Main OR Preoperative Recordo n 05-09-2023 Main OR Preoperative Record Normal [facility] Main OR Preoperative Record Normal [facility] Monitor Recordon 05-09-2023 Monitor Record [id number]# 1.00CD:127 Normal [facility] Monitor Record [id number]# 1.00CD:127 Normal [facility] Operative Reporton 3 Operative Report Normal [facility] Comment on above: Result Comment: Elec tronically Signed By: JAILENE CHISHOLM, Glynn Valdes\Date and Time Signed: 05/09/23 14:13 EDT PT & PTTon 05-09-2023 aPTT Coag (PPP) [Time] 23.7 second(s) Low 25.1-36.5 [facility] Comment on above: Result Comment: Para [...] the same coagulation reagent and instrumentation as [facility]. Currently there are no coagulation studies available worldwide for children to 14 days, and no normal ranges. Heparin therapeutic range (represented by Anti-Factor Xa activity of 0.2 - 0.4 U/mL) corresponds to PTT of 56.6 - 109.0 sec. Performed By: #### 1 5345598, 0472764, 99109552, 1493074, 3788386, 3075374, 0863677, 4938822, 41246155 ####[facility] [address] [place] [address] INR Coag (PPP) [Relative time] 0.9 {INR} Invalid Interpretation Code [facility] Comment on above: Result Comment: INR results are specifically intended to assess patients stabilized on long-term Anticoagulation therapy suggested INR?s ?Less Intensive Anticoagulation? 2.0 ? 3.0Conventional Range 3.0 ? 4.5 Performed By: #### 1 0133204, 3022684, 46650035, 0652980, 9385207, 2965655, 5743651, 6199764, 10506523 ####[facility] [address] [place] [address] PT Coag (PPP) [Time] 10.0 second(s) Normal 9.4-12.5 [facility] Comment on above: Result Comment: 15 [...] the same coagulation reagent and instrumentation as [facility]. Currently there are no coagulation studies available worldwide for children to 14 days, and no normal ranges. Performed By: #### 1 9485648, 7095329, 93405558, 9087908, 7621878, 6985161, 4771082, 4939864, 44414562 ####[facility] [address] [place] [address] Progress Note-Physicianon Progress Note-Physician Normal [facility] Comment on above: Result Comment: Elec tronically Signed By: Gino Yates Jr., DO\.br\Date and Time Signed: 05/09/23 15:16 EDT Progress Note-Physician Normal [facility] Comment on above: Result Comment: Elec tronically Signed By: Gino Yates Jr., DO\.br\Date and Time Signed: 05/09/23 13:29 EDT Troponin 0 Hr.on 05-09-2023 Troponin I.cardiac [Mass/Vol] 15.10 pg/mL Normal 10.10-27.10 [facility] Comment on above: Result Comment: The 95% CI (Confidence Interval) PPV (Positive Predictive Value) for myocardial infarction in females is 38 pg/mL, in males 51 pg/mL. The results should be used in conjunction with clinical conditions of myocardial infarction.(Access High Sensitivity Troponin I Instructions For Use, Jairo P[place], March 2018) Performed By: #### 1 2051711, 3970926, 95652350, 1910623, 0744495, 9629171, 0569858, 7102593, 98815485 ####[facility] [address] [place] [address] UA With Cult Reflexon 2022 Bacteria LM Ql (Urine sed) 1+ /HPF Abnormal Trace [facility] Comment on above: Performed By: #### 2 595752, 79854124 ####[address] [address] Bilirubin Ql (U) Negative Normal Negative [facility] Comment on above: Performed By: #### 2 159364, 60378536 ####[place] [address] Clarity (U) SL CLOUDY Abnormal Clear [facility] Comment on above: Performed By: #### 2 147640, 43568525 ####[address] [address] Color (U) STRAW Abnormal Yellow [facility] Comment on above: Performed By: #### 2 311101, 43674852 ####[address] [address] Epithelial cells.squamous LM.HPF (Urine sed) [#/Area] 0-2 Normal 0-2 [facility] Comment on above: Performed By: #### 2 769634, 61609758 ####[address] [address] Glucose Test strip (U) [Mass/Vol] 3+ Abnormal Negative [facility] Comment on above: Performed By: #### 2 454949, 60684010 ####[address] [address] Hemoglobin Ql (U) 1+ Abnormal Negative [facility] Comment on above: Performed By: #### 2 355756, 84398019 ####[facility] [address] [place] [address] Ketones (U) [Mass/Vol] Negative Normal Negative [facility] Comment on above: Performed By: #### 2 494664, 56336049 ####[address] [address] [place].plasma/Lithi um.RBC (Bld) [Mass ratio] 0-3 Normal 0-3 [facility] Comment on above: Performed By: #### 2 918331, 23379049 ####[address] [address] Nitrite Ql (U) Negative Normal Negative [facility] Comment on above: Performed By: #### 2 779227, 80848031 ####[place] [address]357 pH (U) 5.5 [pH] Invalid Interpretation Code 5.0-9.0 [facility] Comment on above: Performed By: #### 2 836027, 50473138 ####[address] [address] Protein (U) [Mass/Vol] TRACE Abnormal Negative [facility] Comment on above: Performed By: #### 2 632840, 72023295 ####[address] [address] Specific gravity (U) [Rel density] 1.015 Invalid Interpretation Code 1.005-1.030 [facility] Comment on above: Performed By: #### 2 775569, 13206849 ####[address] [address] Type of Urine collection method Clean Catch Normal [facility] Comment on above: Performed By: #### 2 090710, 92395375 ####[address] [address] Urobilinogen Qn (U) 0.2 {Isis'U}/dL Normal 0.0-1.0 [facility] Comment on above: Performed By: #### 2 593092, 19328063 ####[facility] [address] [place] [address] WBC Auto Ql (U) 1+ Abnormal Negative [facility] Comment on above: Performed By: #### 2 210612, 71544735 ####[facility] [address] [place] [address] WBC LM.HPF (Urine sed) [#/Area] /[HPF] Abnormal 0-5 [facility] Comment on above: Performed By: #### 2 146799, 06198491 ####[facility] [address] [place] [address] URINALYSISOrdered By: Alecia Jones on 05-09-2023 Bacteria [...] AM) Normal Negative [facility] UA Auto SS [place].plasma/Lithi um.RBC (Bld) [Mass ratio] 0-3 /HPF Normal [...] FT UA Auto SS Urobilinogen Qn (U) 0.3953022 {Isis'U}/dL Normal 0.0 - 1.0 EU/dL [facility] UA Auto SS WBC Auto Ql (U) 1+ *ABN* (05/09/23 11:07 AM) Invalid Interpretation Code Negative [facility] UA Auto SS WBC LM.HPF (Urine sed) [#/Area] /[HPF] Invalid Interpretation Code 0-5/HPF [facility] UA Auto SS eGFRon 05-09-2023 GFR/1.73 sq M.predicted among non-blacks MDRD (S/P/Bld) [Vol rate/Area] 34 mL/min/1.73 m2 Low >=59 [facility] Comment on above: Order Comment: Order added by Discern Expert. Result Comment: Manager Drilling maxi kidney disease could be indicated at eGFR's of less than 60 mL/min/1.73m2. Kidney failure is indicated at less than 15 mL/min/1.73m2. Performed By: #### 1 3756571, 8057969, 56760087, 7992015, 7072785, 8265117, 4781380, 4419740, 24612578 ####[facility] [address] [place] [address] Benedict 03-29-2023 [facility] HNO ID: [id number] Author: Coordinator, Mammography Service: ? Author Type: Physician Type: Letter Filed: 03/30/2023 11:31 PM Note Text: March 30, 2023 PID: [id number] Shahana Grace [address] [place] [id number] Dear Ms. Grace, We are pleased to [...] report will be kept on file at [facility] as part of your permanent medical record and are available for your continuing care. Thank you for allowing us to help in meeting your health care needs. Sincerely, Dr. Costa Interpreting Radiologist [facility] (Normal over 40) Normal [facility] SCREENINGon 03-26-2023 [facility] SCREENING * * *Final Report* * * DATE OF EXAM: Mar 26 2023 2:03PM W 0581 - [facility] SCREENING / PROCEDURE REASON: Z12.31 * * * * Physician Interpretation * * * * RESULT: #[id number] - [facility] SCREENING BILATERAL DIGITAL SCREENING MAMMOGRAM WITH CAD: 03/26/2023 HISTORY: Z12.31 / Screening Mammogram-Patient reports NO symptoms. RESULT: TECHNIQUE: The study was acquired using full field digital technology and interpreted from soft copy. Current study was also evaluated with a Computer Aided Detection (CAD). Comparison is made to exams dated: 07/13/2018 mammogram - [facility], 11/10/2019 mammogram - [facility], 11/11/2020 mammogram - [facility], and 01/28/2022 mammogram - [facility]. There are scattered fibroglandular elements in both breasts. There is a biopsy clip in the right breast. No significant masses, calcifications, or other findings are seen in either breast. There has been no significant interval change. IMPRESSION: NEGATIVE There is no mammographic evidence of malignancy. A 1 year screening mammogram is recommended. Sharona arechiga/vincent:03/29/2023 08:29:23 Wildlife Ecologist(s): Izabela Cardona [facility] letter sent: Normal over 40 Mammogram BI-RADS: [...] Health, Family Medicine, and Medical/Surgical Oncology, the [facility] has carefully reviewed the data and [...] their providers when to stop screening mammograms. Scarfing Machine Operator: Vincent Transcribe Date/Time: Mar 26 2023 1:20P Dictated by : SHARONA COSTA MD This examination was interpreted and the report reviewed and electronically signed by: SHARONA COSTA MD on Mar 29 2023 8:29AM EST [id number] Normal [facility] Urine 10 SGon 11-24-2022 Albumin DL <= 20 mg/L (U) [Mass/Vol] Negative [facility] Other Albumin DL <= 20 mg/L (U) [Mass/Vol] Moderate [facility] Other pH (U) 5.0 [pH] [facility] Other Urine 10 SG Negative [facility] Other Urine 10 SG 1.005 [facility] Other Urine 10 SG trace [facility] Other Urine 10 SG 0.2 [facility] Other Urine Cultureon 11-24-2022 Bacteria identified Cx Nom (U) Reason for Exam Urinary tract infection, site not specified;Hematuria, unspe Urine Reason for Exam: Urinary tract infection, site not specified;Hematuria, unspe : Urine ORGANISM: Enterococcus faecalis (O:ENTFAC) Reyno Count 75,000 Aerobic LAUREN Charge (PCMIC38) ---- [...] RESISTANT TO ALL B-LACTAM DRUGS. PERFORMED BY: [facility] [address] [place] [address] PATHOLOGIST CHOIR ACCOMPANIST KEVIN SWARTZ M.D. Normal [facility] Comment on above: Performed By: #### C UU #### [facility] [address] CHEMISTRYOrdered By: SYSTEM SYSTEM on 11-14-2022 [...] rate/Area] 40 mL/min/1.73 m2 Low >=59mL/min/1.73 m2 [facility] Chem S Globulin (S) [Mass/Vol] [...] Auto SS Ketones (U) [Mass/Vol] Trace *NA* (3/18/23 1:26 AM) Invalid Interpretation Code Negative [facility] UA Auto SS [place].plasma/Lithi um.RBC (Bld) [Mass ratio] 4-20 /HPF Normal [...] [facility] UA Auto SS Urobilinogen Qn (U) 1.8466849 {Isis'U}/dL Normal 0.0 - 1.0 EU/dL [facility] [...] Result Comment: Modesto vanegas RN/ POC Device [id number] Invalid Interpretation Code [facility] POC Subsection POC User ID [id number] Invalid Interpretation Code [facility] POC Subsection POC Username AZIZA DELA CRUZ Invalid Interpretation Code [facility] POC Subsection Office Visit (Cardiology)on 07-29-2022 Follow-up visit Diagnoses/Problems Assessed CAD in [place] artery (414.01) (I25.10) CHF (congestive heart failure) (428.0) (I50.9) History of PTCA (V45.82) (Z98.61) 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 She suffered an inferior KS in 2015 with primary revascularization of the [...] of section x2 History of Colonoscopy 30Aug2006 [facility] History of Lithotripsy Past Medical History [...] Recorded: 29Jul2022 09:54AM Heart Rate80, L Radial Eeavipwg924, LUE, Sitting Uvwbioqqd00, LUE, Sitting Height5 ft 2 in Ypjbsb091 lb BMI Wnmuotbcbo46.85 kg/m2 BSA Calculated1.9 (more content not included)... Normal [employer] Tobacco Screening.on 022 Adult depression screening assessment No [facility] tor [facility] y 250 DO Work Phone: Fall risk assessment a) No falls within the last year [facility] y 250 DO Work Phone: Tobacco use status CP b) No [facility] y 250 DO Work Phone: CHEMISTRYOrdered By: Lab ROP User on 06-19-2022 Glucose [Mass/Vol] 190 mg/dL High 55 - 99 mg/dL F[facility] C POC Subsection Comment on above: Result Comment: Modesto vanegas RN/ POC Device SN [id number] Invalid Interpretation Code [facility] POC Subsection POC User ID [id number] Invalid Interpretation Code [facility] POC Subsection POC Username Ayleen Kelley Invalid Interpretation Code [facility] POC Subsection Glucose [Mass/Vol] 176 mg/dL High 55 - 99 mg/dL FTM C POC Subsection Comment on above: Result Comment: Modesto vanegas RN/ POC Device SN [id number] Invalid Interpretation Code [facility] POC Subsection POC User ID [id number] Invalid Interpretation Code [facility] POC Subsection POC [...] rate/Area] 25 mL/min/1.73 m2 Low >=59mL/min/1.73 m2 [facility] Chem S Glucose [Mass/Vol] 207 [...] 192 mg/dL High 55 - 99 mg/dL [facility] C POC Subsection Comment on above: Result Comment: Modesto vanegas RN/ POC Device SN [id number] Invalid Interpretation Code FT POC Subsection POC User ID [id number] Invalid Interpretation Code [facility] POC Subsection POC Username LENOKAIA Invalid Interpretation Code [facility] POC Subsection CHEMISTRYOrdered By: SYSTEM [...] rate/Area] 26 mL/min/1.73 m2 Low >=59mL/min/1.73 m2 [facility] Chem S Glucose [Mass/Vol] 279 [...] Klebsiella pneumoniae <10,000 cfu/ml Mixed skin contaminants [facility] Trimethoprim+Sulfamethoxazol e LAUREN [Susc]Ordered By: Nata Prieto on 06-17-2022 Klebsiella pneumoniae Klebsiella pneumoniae [facility] URINALYSISOrdered By: Ruperto Lutz on [...] Interpretation Code Negative [facility] UA Auto SS [place].plasma/Lithi um.RBC (Bld) [Mass ratio] 4-20 /HPF Normal [...] [facility] UA Auto SS Urobilinogen Qn (U) [id number] {Isis'U}/dL Normal 0.0 - 1.0 EU/dL [facility] UA Auto SS WBC Auto Ql (U) 1+ *ABN* (06/17/22 2:35 PM) Invalid Interpretation Code Negative [facility] UA Auto SS WBC LM.HPF (Urine sed) [#/Area] 6-15 /HPF Invalid Interpretation Code 0-5/HPF [facility] UA Auto SS CNCOon 01-28-2022 [facility] HNO ID: [id number] Author: Mammography Coordinator Service: ? Author Type: Physician Type: Letter Filed: 01/29/2022 11:34 PM Note Text: January 28, 2022 PID: [id number] Shahana Grace [address] [place] [address] Dear Ms. Grace, We are pleased to [...] report will be kept on file at [facility] as part of your permanent medical record and are available for your continuing care. Thank you for allowing us to help in meeting your health care needs. Sincerely, Dr. Green Interpreting Radiologist [facility] (Normal over 40) Normal [facility] SCREENINGon 01-28-2022 [facility] SCREENING * * *Final Report* * * DATE OF EXAM: Jan 28 2022 12:49PM [facility] 0581 - [facility] SCREENING / PROCEDURE REASON: annual * * * * Physician Interpretation * * * * RESULT: #[id number] - [facility] SCREENING BILATERAL DIGITAL SCREENING MAMMOGRAM WITH CAD: 01/28/2022 HISTORY: Screening Mammogram-Patient reports NO symptoms. RESULT: TECHNIQUE: The study was acquired using full field digital technology and interpreted from soft copy. Current study was also evaluated with a Computer Aided Detection (CAD). Comparison is made to exams dated: 11/11/2020 mammogram - [facility], 11/10/2019 mammogram - [facility], 07/13/2018 mammogram, and 04/29/2017 mamm[facility] - [facility] There are scattered fibroglandular elements in both breasts. There is a biopsy clip in the right breast. No significant masses, calcifications, or other findings are seen in either breast. There has been no significant interval change. IMPRESSION: NEGATIVE There is no mammographic evidence of malignancy. A 1 year screening mammogram is recommended. Nafisa fernando/vincent:01/28/2022 14:40:17 Wildlife Ecologist(s): RT Grupo(R)(M), [facility] letter sent: Normal over 40 Mammogram [...] Health, Family Medicine, and Medical/Surgical Oncology, the [facility] has carefully reviewed the data and [...] their providers when to stop screening mammograms. Scarfing Machine Operator: Vincent Transcribe Date/Time: Jan 28 2022 12:39P Dictated by: NAFISA GREEN MD This examination was interpreted and the report reviewed and electronically signed by: NAFISA GREEN MD on Jan 28 2022 2:40PM EST [id number] Normal [facility] CHEMISTRYOrdered By: SYSTEM SYSTEM on 12-10-2021 Creatinine [Mass/Vol] 1.1 mg/dL Normal 0.5 - 1.3 mg/dL [facility] Remisol GFR/1.73 sq M.predicted among blacks MDRD (S/P/Bld) [Vol rate/Area] 60 mL/min/1.73 m2 Normal >=59mL/min/1.73 m2 [facility] Chem S GFR/1.73 sq M.predicted among non-blacks MDRD (S/P/Bld) [Vol rate/Area] 49 mL/min/1.73 m2 Low >=59mL/min/1.73 m2 [facility] Chem S XR KUB 1 [...] DEL ROSARIO Date: 2021-10-08 07:13 Normal [facility] PROF CHEM 8 (BAS METB)on Anion gap [Moles/Vol] 12.7 mmol/L Normal [facility] Comment on above: Performed By: #### B MP #### [facility] [address] [address] [address] Shreya De La Fuente Calcium [Mass/Vol] 9.7 mg/dL Normal 8.4-10.2 [facility] Comment on above: Performed By: #### B MP #### [facility] [address] [place] [address] Dr. Shreya De La Fuente Chloride [Moles/Vol] 108 mmol/L Critically high 98-107 [facility] Comment on above: Performed By: #### B MP #### [facility] [address] [address] [address] Shreya De La Fuente CO2 [Moles/Vol] 26.1 mmol/L Normal 22.0-30.0 [facility] Comment on above: Performed By: #### B MP #### [facility] [address] [place] [address] Dr. Shreya De La Fuente Creatinine [Mass/Vol] 1.29 mg/dL Critically high 0.52-1.04 [facility] Comment on above: Performed By: #### B MP #### [facility] [address] [place] [address] Dr. Shreya De La Fuente EGFR-AF DJIBOUTIAN 50 mL/min/1.73m2 Critically low >=60 [facility] Comment on above: Performed By: #### B MP #### [facility] [address] [address] [address] Shreya De La Fuente EGFR-NON AF DJIBOUTIAN 41 mL/min/1.73m2 Critically low >=60 [facility] Comment on above: Performed By: #### B MP #### [facility] [address] [address] [address] Shreya De La Fuente Glucose [Mass/Vol] 117 mg/dL Critically high 74-106 [facility] Comment on above: Performed By: #### B MP #### [facility] [address] [place], [place] [address] Dr. Shreya De La Fuente Potassium [Moles/Vol] 3.8 mmol/L Normal 3.4-5.0 [facility] Comment on above: Performed By: #### B MP #### [facility] [id number] Shreya De La Fuente Sodium [Moles/Vol] 143 mmol/L Normal 137-145 [facility] Comment on above: Performed By: #### B MP #### [facility] [id number] Shreya De La Fuente Urea nitrogen [Mass/Vol] 15.0 mg/dL Normal 7.0-17.0 [facility] Comment on above: Performed By: #### B MP #### [facility] [address] [address] [address] Shreya De La Fuente Urea nitrogen/Creatinine [Mass ratio] 11.6 mg/mg Normal [facility] Comment on above: Performed By: #### B MP #### [facility] [address] [place], [place] [address] Dr. Shreya De La Fuente Tobacco Screening.on 021 Fall risk assessment a) No falls within the last year [facility] 600 DO Work Phone: Heart Rate Regular [facility] DO Work Phone: Tobacco use status CP b) No [facility] DO Work Phone: Radiologyon 07-15-2021 CT Head WO contrast Normal MP-No rth [facility] 250 DO Work Phone: Laboratory - Chemistry and C hemistry - challengeon 07-10-2021 CO2 [Moles/Vol] 20 mmol/L below low threshold 21-31 [facility] 250 DO Work Phone: Creatinine [Mass/Vol] 1.6 mg/dL above high threshold 0.5-1.3 [facility] 250 DO Work Phone: No Panel Informationon 07-10 39 {mL/min/1.73_m2} below low threshold >=59 [facility] 250 DO Work Phone: Comment on above: eGFR is race adjuste d. AA=. 32 {mL/min/1.73_m2} below low threshold >=59 [facility] 250 DO Work Phone: [phone] Comment on above: Chronic kidney disea se could be indicated at eGFR's of less than 60 mL/min/1.73m2. Kidney failure is indicated at less than 15 mL/min/1.73m2. 14 {mEq/L} Normal 6-16 [facility] 250 DO Work Phone: 113 mmol/L above high threshold 101-111 [facility] 250 DO Work Phone: 4.3 mmol/L Normal 3.5-5.3 [facility] Work Phone: [phone] 143 mmol/L Normal 135-145 [facility] Work Phone: 9.6 mg/dL Normal 8.9-11.1 [facility] Work Phone: 31 {No_Units} above high threshold 10-20 [facility] Selam pruitt 250 DO Work Phone: [phone] 49 mg/dL above high threshold 5-21 [facility] DO Work Phone: [phone] 139 mg/dL Normal 55-199 [facility] DO Work Phone: [phone] Comment on above: If this glucose resu lt represents a fasting glucose, interpretation should refer to the following reference range: 55-99 mg/dL Tobacco Screening.on 021 Fall risk assessment a) No falls within the last year [facility] 600 DO Work Phone: Tobacco use status [facility] b) No -[facility] 600 DO Work Phone: Creatinineon 04-22-2017 Creatinine 0.63 mg/dL Normal 0.50-1.05 [facility] Comment on above: Performed By: #### 1 [id number] ####[facility] [address] [place] [address] eGFR (MDRD) mL/min/{1.73_m2} Normal [facility] Comment on above: Result Comment: Inte rpretation for Chronic Kidney Disease:Stages 1&2 >60 Healthy or potential kidney damage.Mild decrease of GFR.Stage 3 30-59 Moderate decrease of GFR.Stage 4 15-29 Severe decrease of GFR.Stage 5 <15 Kidney failure or on dialysis. Performed By: #### 1 [id number] ####[facility] [address] [place] [address] Electrolyte Panelon 04-22-20 17 Anion gap 17 mmol/L Normal 10-20 [facility] Comment on above: Performed By: #### 1 [id number] ####[facility] [address] [place] [address] Bicarbonate (HCO3) 23 mmol/L Normal 21-32 [facility] Comment on above: Performed By: #### 1 [id number] ####[facility] [address] [place] [address] Chloride 108 mmol/L High 98-107 [facility] Comment on above: Performed By: #### 1 [id number] ####[facility] [address] [place] [address] Potassium molar conc 3.9 mmol/L Normal 3.5-5.1 [facility] Comment on above: Performed By: #### 1 [id number] ####[facility] [address] [place] [address] Sodium 144 mmol/L Normal 136-145 [facility] Comment on above: Performed By: #### 1 [id number] ####[facility] [address] [place] [address] Urea Nitrogenon 04-22-2017 Urea nitrogen 11 mg/dL Normal 6-23 [facility] Comment on above: Performed By: #### 1 [id number] ####[facility] [address] [place] [address] Vital Signs Date Time Vital Sign Value Performing Clinician Facility 06-27-2024 12:02-0400 Blood Pressure Location Yulissa Orzech [facility] 06-27-2024 12:02-0400 Diastolic blood pressure 74 mm[Hg] Yulissa Orzech [facility] 06-27-2024 12:02-0400 Heart rate 77 /min Yulissa Orzech [facility] 06-27-2024 12:02-0400 Respiratory rate 16 /min Yulissa Orzech [facility] 06-27-2024 12:02-0400 Systolic blood pressure 137 mm[Hg] Yulissa Orzech [facility] 02-23-2024 12:00-0400 Hourly Rounding Glynn ALARCON [facility] 02-23-2024 12:00-0400 Promise to Return Glynnjose ALARCON [facility] 02-23-2024 11:08-0400 Heart rate 61 /min Glynn ALARCON [facility] 02-23-2024 11:08-0400 SaO2% (BldA) [Mass fraction] 94 % Glynn ALARCON [facility] 02-23-2024 11:06-0400 Diastolic blood pressure 73 mm[Hg] Glynn ALARCON [facility] 02-23-2024 11:06-0400 Mean blood pressure 108 mm[Hg] Glynn AGNES [facility] 02-23-2024 11:06-0400 Systolic blood pressure 179 mm[Hg] Glynn AGNES [facility] 02-23-2024 11:06-0400 Body temperature 97.88 [degF] Glynn AGNES [facility] 02-23-2024 11:00-0400 Hourly Rounding Glynn AGNES [facility] 02-23-2024 11:00-0400 Promise to Return Glynn AGNES [facility] 02-23-2024 10:00-0400 Hourly Rounding Glynnjose GRUBBSSLIN [facility] 02-23-2024 10:00-0400 Promise to Return Glynn AGNES [facility] 02-23-2024 07:00-0400 Body temperature 97.34 [degF] Glynn AGNES [facility] 02-23-2024 07:00-0400 Diastolic blood pressure 79 mm[Hg] Glynn AGNES [facility] 02-23-2024 07:00-0400 Heart rate 54 /min Glynn AGNES [facility] 02-23-2024 07:00-0400 Respiratory rate 16 /min Glynn AGNES [facility] 02-23-2024 07:00-0400 SaO2% (BldA) [Mass fraction] 96 % Glynn AGNES [facility] 02-23-2024 07:00-0400 Systolic blood pressure 182 mm[Hg] Glynnjose GRUBBSSLIN [facility] 02-22-2024 23:29-0400 Body temperature 98.42 [degF] Glynnjose GRUBBSSLIN [facility] 02-22-2024 23:29-0400 Diastolic blood pressure 84 mm[Hg] Glynnjose GRUBBSSLIN [facility] 02-22-2024 23:29-0400 Heart rate 52 /min Glynnjose GRUBBSSLIN [facility] 02-22-2024 23:29-0400 Respiratory rate 16 /min Glynnjose GRUBBSSLIN [facility] 02-22-2024 23:29-0400 SaO2% (BldA) [Mass fraction] 97 % Glynnjose GRUBBSSLIN [facility] 02-22-2024 23:29-0400 Systolic blood pressure 162 mm[Hg] Glynnjose GRUBBSSLIN [facility] 02-22-2024 21:44-0400 Heart rate 48 /min Glynnjose GRUBBSSLIN [facility] 02-22-2024 19:15-0400 Mean blood pressure 116 mm[Hg] Glynnjose GRUBBSSLIN [facility] 02-22-2024 19:15-0400 Body temperature 98.24 [degF] Glynnjose GRUBBSSLIN [facility] 02-22-2024 16:51-0400 gluc 308 mg/dL Glynnjose GRUBBSSLIN [facility] 02-22-2024 15:00-0400 Body temperature 97.52 [degF] Glynnjose GRUBBSSLIN [facility] 02-22-2024 12:48-0400 gluc 303 mg/dL Glynn AGNES [facility] 02-22-2024 09:41-0400 Heart rate 87 /min Glynn AGNES [facility] 02-22-2024 09:40-0400 gluc 212 mg/dL Glynn AGNES [facility] 02-22-2024 07:30-0400 Mean blood pressure 101 mm[Hg] Glynn AGNES [facility] 02-22-2024 03:34-0400 Blood Pressure Location Glynn AGNES [facility] 02-22-2024 03:34-0400 Body temperature 97.16 [degF] Glynn AGNES [facility] 02-22-2024 03:34-0400 Heart rate 52 /min Glynn AGNES [facility] 02-22-2024 03:34-0400 Respiratory rate 18 /min Glynn AGNES [facility] 02-21-2024 15:00-0400 Blood Pressure Location Glynn AGNES [facility] 02-21-2024 15:00-0400 Mean blood pressure 103 mm[Hg] Glynn AGNES [facility] 02-21-2024 15:00-0400 Respiratory rate 16 /min Glynn AGNES [facility] 02-21-2024 12:00-0400 Mean blood pressure 99 mm[Hg] Glynn AGNES [facility] 02-21-2024 07:00-0400 Mean blood pressure 112 mm[Hg] Glynn AGNES [facility] 02-21-2024 02:37-0400 Heart rate 51 /min Glynnjose GRUBBSSLIN [facility] 02-20-2024 11:50-0400 Heart rate 57 /min Glynnjose GRUBBSSLIN [facility] 02-19-2024 13:28-0400 gluc Glynnjose GRUBBSSLIN [facility] Comment on above: Result Comment: ne 02-19-2024 13:28-0400 Heart rate 75 /min Glynn MINALIN [facility] 08-05-2023 16:01-0500 Heart rate 78 /min Orestes COOK [facility] 08-05-2023 16:01-0500 SaO2% (BldA) [Mass fraction] 96 % Orestes COOK [facility] 08-05-2023 16:01-0500 Diastolic blood pressure 85 mm[Hg] Orestes COOK [facility] 08-05-2023 16:01-0500 Mean blood pressure 105 mm[Hg] Orestes COOK [facility] 08-05-2023 16:01-0500 Systolic blood pressure 146 mm[Hg] Orestes COOK [facility] 08-05-2023 16:01-0500 Mean blood pressure 105 mm[Hg] Orestes COOK [facility] 08-05-2023 16:01-0500 Respiratory rate 16 /min Orestes COOK [facility] 08-05-2023 15:35-0500 Heart rate 77 /min Orestes COOK [facility] 08-05-2023 15:35-0500 SaO2% (BldA) [Mass fraction] 93 % Orestes JACQUES [facility] 08-05-2023 15:34-0500 Diastolic blood pressure 78 mm[Hg] Orestes COOK [facility] 08-05-2023 15:34-0500 Mean blood pressure 106 mm[Hg] Orestes COOK [facility] 08-05-2023 15:34-0500 Systolic blood pressure 164 mm[Hg] Orestes JACQUES [facility] 08-05-2023 15:34-0500 Mean blood pressure 107 mm[Hg] Orestes COOK [facility] 08-05-2023 15:34-0500 Respiratory rate 18 /min Orestes JACQUES [facility] 08-05-2023 15:26-0500 Body temperature 97.88 [degF] Orestes JACQUES [facility] 08-05-2023 15:26-0500 Diastolic blood pressure 78 mm[Hg] Orestes JACQUES [facility] 08-05-2023 15:26-0500 Heart rate 71 /min Orestes COOK [facility] 08-05-2023 15:26-0500 Mean blood pressure 105 mm[Hg] Orestes JACQUES [facility] 08-05-2023 15:26-0500 Respiratory rate 20 /min Orsetes JACQUES [facility] 08-05-2023 15:26-0500 SaO2% (BldA) [Mass fraction] 95 % Orestes LivQuik [facility] 08-05-2023 15:26-0500 Systolic blood pressure 159 mm[Hg] Orestes JACQUES [facility] 08-05-2023 15:15-0500 Respiratory rate 18 /min Orestes JACQUES [facility] 08-05-2023 15:01-0500 Body temperature 97.7 [degF] Orestes JACQUES [facility] 08-05-2023 14:55-0500 Respiratory rate 11 /min Orestes JACQUES [facility] 08-05-2023 14:50-0500 Respiratory rate 16 /min Orestes JACQUES [facility] 08-05-2023 12:46-0500 Mean blood pressure 127 mm[Hg] Orestes JACQUES [facility] 08-05-2023 12:46-0500 Blood Pressure Location Orestes JACQUES [facility] 08-05-2023 12:44-0500 Blood Pressure Location Orestes JACQUES [facility] 08-05-2023 12:30-0500 Blood Pressure Location Orestes JACQUES [facility] 08-05-2023 12:26-0500 Body temperature 97.88 [degF] Orestes JACQUES [facility] 07-28-2023 11:14-0500 Body height 157.5 cm Sterling Florian DO Work Phone: [facility] 07-28-2023 11:14-0500 Body mass index (BMI) [Ratio] 34.39 kg/m2 Sterling Florian DO Work Phone: [facility] 07-28-2023 11:14-0500 Body weight 85.28 kg Sterling Florian DO Work Phone: [facility] 07-28-2023 11:14-0500 Diastolic blood pressure 86 mm[Hg] Sterling Florian DO Work Phone: [facility] 07-28-2023 11:14-0500 Heart rate 74 /min Sterling Florian DO Work Phone: [facility] 07-28-2023 11:14-0500 Systolic blood pressure 128 mm[Hg] Sterling Florian DO Work Phone: [facility] 06-02-2023 12:16-0400 Hourly Rounding [facility] 06-02-2023 12:16-0400 Promise to Return [facility] 06-02-2023 11:11-0400 Hourly Rounding [facility] 06-02-2023 11:11-0400 Promise to Return [facility] 06-02-2023 11:03-0400 Heart rate 54 /min [facility] 06-02-2023 11:03-0400 SaO2% (BldA) [Mass fraction] 94 % [facility] 06-02-2023 11:02-0400 Body temperature 98.06 [degF] [facility] 06-02-2023 11:02-0400 Diastolic blood pressure 87 mm[Hg] [facility] 06-02-2023 11:02-0400 Mean blood pressure 113 mm[Hg] [facility] 06-02-2023 11:02-0400 Systolic blood pressure 165 mm[Hg] [facility] 06-02-2023 11:00-0400 Respiratory rate 18 /min [facility] 06-02-2023 10:29-0400 Hourly Rounding [facility] 06-02-2023 10:29-0400 Promise to Return [facility] 06-02-2023 08:50-0400 Diastolic blood pressure 83 mm[Hg] [facility] 06-02-2023 08:50-0400 Heart rate 68 /min [facility] 06-02-2023 08:50-0400 Systolic blood pressure 188 mm[Hg] [facility] 06-02-2023 08:03-0400 Heart rate 58 /min [facility] 06-02-2023 08:03-0400 SaO2% (BldA) [Mass fraction] 96 % [facility] 06-02-2023 08:00-0400 Diastolic blood pressure 83 mm[Hg] [facility] 06-02-2023 08:00-0400 Mean blood pressure 118 mm[Hg] [facility] 06-02-2023 08:00-0400 Systolic blood pressure 188 mm[Hg] [facility] 06-02-2023 08:00-0400 Body temperature 97.7 [degF] [facility] 06-02-2023 02:36-0400 Blood Pressure Location [facility] 06-02-2023 02:36-0400 Body temperature 98.06 [degF] [facility] 06-02-2023 02:36-0400 Heart rate 68 /min [facility] 06-02-2023 02:36-0400 Respiratory rate 17 /min [facility] 06-01-2023 21:00-0400 Respiratory rate 16 /min [facility] 06-01-2023 20:28-0400 Heart rate 37 /min [facility] 06-01-2023 19:42-0400 SaO2% (BldA) [Mass fraction] 92 % [facility] 06-01-2023 19:41-0400 Mean blood pressure 98 mm[Hg] [facility]-01[facility] 16:31-0400 Mean blood pressure 133 mm[Hg] [facility] 06-01-2023 16:31-0400 Respiratory rate 20 /min Paola [facility] 06-01-2023 10:04-0400 Blood Pressure Location [facility] 06-01-2023 10:04-0400 Heart rate 67 /min Paola [facility] 06-01-2023 10:04-0400 Mean blood pressure 125 mm[Hg] [facility] 06-01-2023 00:00-0400 Body temperature 97.7 [degF] [facility] 06-01-2023 00:00-0400 Mean blood pressure 107 mm[Hg] [facility] 05-31-2023 18:32-0400 Blood Pressure Location [facility] 05-30-2023 17:47-0400 gluc 171 mg/dL [facility] 05-30-2023 12:32-0400 gluc 191 mg/dL [facility] 05-27-2023 10:58-0400 Heart rate 80 /min [facility] 05-27-2023 09:29-0400 Body temperature 98.06 [degF] [facility] 05-27-2023 08:15-0400 Respiratory rate 18 /min [facility] 05-27-2023 08:10-0400 Respiratory rate 17 /min [facility] 05-27-2023 06:00-0400 Body temperature 99.68 [degF] [facility] 05-26-2023 15:59-0400 Heart rate 76 /min [facility] 05-11-2023 11:12-0400 Hourly Rounding [facility] 05-11-2023 11:12-0400 [facility] 05-11-2023 10:16-0400 Hourly Rounding [facility] [...] Mean blood pressure 117 mm[Hg] [facility] 05-11-2023 08:02-0400 Systolic blood pressure 192 mm[Hg] [...] Mean blood pressure 75 mm[Hg] [facility] 05-10-2023 15:00-0400 Body temperature 98.24 [degF] [facility] 05-10-2023 15:00-0400 Heart rate 63 /min [facility] 05-10-2023 15:00-0400 Mean blood pressure 86 mm[Hg] [facility] 05-10-2023 15:00-0400 SaO2% (BldA) [Mass fraction] 94 % [facility] 05-10-2023 11:57-0400 gluc 314 mg/dL [facility] 05-10-2023 11:00-0400 Mean blood pressure 101 mm[Hg] [facility] 05-10-2023 11:00-0400 Respiratory rate 18 /min [facility] 05-10-2023 08:22-0400 gluc 249 mg/dL [facility] 05-10-2023 08:21-0400 Heart rate 71 /min [facility] 05-10-2023 08:00-0400 Body temperature 97.7 [degF] [facility] 05-10-2023 08:00-0400 Mean blood pressure 107 mm[Hg] [facility] 05-10-2023 04:19-0400 Mean blood pressure 114 mm[Hg] [facility] 05-10-2023 04:19-0400 Body temperature 98.06 [degF] [facility] 05-09-2023 15:00-0400 Body temperature 97.88 [degF] [facility] [...] 02:39-0400 Body temperature 98.06 [degF] Kaylinn Dokken [facility] 11-14-2022 02:39-0400 Diastolic blood pressure 77 mm[Hg] Kaylinn Dokken [facility] 11-14-2022 02:39-0400 Heart rate 82 /min Kaylinn Dokken [facility] 11-14-2022 02:39-0400 Mean blood pressure 104 mm[Hg] Kaylinn Dokken [facility] 11-14-2022 02:39-0400 Respiratory rate 21 /min Kay[facility] [facility] 11-14-2022 02:39-0400 SaO2% (BldA) [Mass fraction] 96 % Kaylinn Dokken [facility] 11-14-2022 02:39-0400 Systolic blood pressure 157 mm[Hg] Kaylinn Dokken [facility] 11-14-2022 02:04-0400 Diastolic blood pressure 84 mm[Hg] Kaylinn Dokken [facility] 11-14-2022 02:04-0400 Heart rate 79 /min Kaylinn Dokken [facility] 11-14-2022 02:04-0400 Mean blood pressure 111 mm[Hg] Kaylinn Dokken [facility] 11-14-2022 02:04-0400 Respiratory rate 18 /min Kaylinn Dokken [facility] 11-14-2022 02:04-0400 SaO2% (BldA) [Mass fraction] 95 % Kaylinn Dokken [facility] 11-14-2022 02:04-0400 Systolic blood pressure 164 mm[Hg] Kaylinn Dokken [facility] 11-14-2022 01:30-0400 Diastolic blood pressure 96 mm[Hg] Kaylinn Dokken [facility] 11-14-2022 01:30-0400 Heart rate 83 /min Kaylinn Dokken [facility] 11-14-2022 01:30-0400 Mean blood pressure 122 mm[Hg] Kaylinn Dokken [facility] 11-14-2022 01:30-0400 Respiratory rate 18 /min Kaylinn Dokken [facility] 11-14-2022 01:30-0400 SaO2% (BldA) [Mass fraction] 96 % Jodyylinn Dokken [facility] 11-14-2022 01:30-0400 Systolic blood pressure 174 mm[Hg] Kaylinn Dokken [facility] 11-14-2022 01:08-0400 Body temperature 99.68 [degF] Jodyylinn Dokken [facility] 11-13-2022 23:38-0400 gluc 223 mg/dL Jodyylinn Dokken [facility] 11-13-2022 23:38-0400 gluc Jodyylinn Dokken [facility] 11-13-2022 23:29-0400 Body temperature 98.24 [degF] Paulieinn Dokken [facility] 11-13-2022 23:29-0400 Heart rate 76 /min Jodyylinn Dokken [facility] 11-13-2022 23:29-0400 Respiratory rate 18 /min Jodyylinn Dokken [facility] 11-13-2022 23:14-0400 Heart rate 83 /min Jodyylinn Dokken [facility] 07-29-2022 09:54-0500 Body height 157.48 cm Albertina [facility]ndt [facility] Work Phone: 07-29-2022 09:54-0500 Body mass index (BMI) [Ratio] 35.85 kg/m2 Albertina Arndt Work Phone: [facility] 250 DO Work Phone: 07-29-2022 09:54-0500 Body surface area Derived from formula 1.9 m2 Albertina R Kuns Work Phone: [facility] 250 DO Work Phone: 07-29-2022 09:54-0500 Body weight 88.91 kg Albertina R Kuns Work Phone: [facility] 250 DO Work Phone: 07-29-2022 09:54-0500 Diastolic blood pressure 94 mm[Hg] Albertina R Kuns Work Phone: [facility] 250 DO Work Phone: 07-29-2022 09:54-0500 Heart rate 80 /min Albertina R Kuns Work Phone: [facility] [place] 250 DO Work Phone: 07-29-2022 09:54-0500 Systolic blood pressure 138 mm[Hg] Albertina R Kuns Work Phone: [facility] 250 DO Work Phone: 07-13-2022 13:08-0500 Blood Pressure Location Wendy Lue [facility] 07-13-2022 13:08-0500 Diastolic blood pressure 80 mm[Hg] Wendy Lue [facility] 07-13-2022 13:08-0500 Heart rate 65 /min Wendy Lue [facility] 07-13-2022 13:08-0500 Respiratory rate 16 /min Wendy Lue [facility] 07-13-2022 13:08-0500 Systolic blood pressure 122 mm[Hg] Wendy Lue [facility] 06-19-2022 09:11-0400 gluc 176 mg/dL Orestes COOK [facility] 06-19-2022 09:10-0400 Diastolic blood pressure 85 mm[Hg] Orestes COOK [facility] 06-19-2022 09:10-0400 Heart rate 81 /min Orestes COOK [facility] 06-19-2022 09:10-0400 Systolic blood pressure 163 mm[Hg] Orestes COOK [facility] 06-19-2022 09:00-0400 Hourly Rounding Orestes COOK [facility] 06-19-2022 09:00-0400 Promise to Return Orestes COOK [facility] 06-19-2022 08:00-0400 Hourly Rounding Orestes COOK [facility] 06-19-2022 08:00-0400 Promise to Return Orestes COOK [facility] 06-19-2022 07:44-0400 Blood Pressure Location Orestes COOK [facility] 06-19-2022 07:44-0400 BP/Pulse Patient Position Orestes COOK [facility] 06-19-2022 07:44-0400 Diastolic blood pressure 85 mm[Hg] Orestes COOK [facility] 06-19-2022 07:44-0400 Heart rate 71 /min Orestes COOK [facility] 06-19-2022 07:44-0400 Mean blood pressure 111 mm[Hg] Oerstes COOK [facility] 06-19-2022 07:44-0400 Respiratory rate 18 /min Orestes JACQUES [facility] 06-19-2022 07:44-0400 SaO2% (BldA) [Mass fraction] 93 % Orestes JACQUES [facility] 06-19-2022 07:44-0400 Systolic blood pressure 163 mm[Hg] Orestes JACQUES [facility] 06-19-2022 07:00-0400 Body temperature 98.24 [degF] Orestes JACQUES [facility] 06-19-2022 07:00-0400 Hourly Rounding Orestes JACQUES [facility] 06-19-2022 07:00-0400 Promise to Return Orestes JACQUES [facility] 06-19-2022 01:25-0400 Blood Pressure Location Orestes JACQUES [facility] 06-19-2022 01:25-0400 Body temperature 98.42 [degF] Orestes JACQUES [facility] 06-19-2022 01:25-0400 BP/Pulse Patient Position Orestes JACQUES [facility] 06-19-2022 01:25-0400 Diastolic blood pressure 77 mm[Hg] Orestes JACQUES [facility] 06-19-2022 01:25-0400 Heart rate 69 /min Orestes JACQUES [facility] 06-19-2022 01:25-0400 Mean blood pressure 100 mm[Hg] Orestes JACQUES [facility] 06-19-2022 01:25-0400 Respiratory rate 16 /min Orestes JACQUES [facility] 06-19-2022 01:25-0400 SaO2% (BldA) [Mass fraction] 94 % Orestes JACQUES [facility] 06-19-2022 01:25-0400 Systolic blood pressure 145 mm[Hg] Orestes JACQUES [facility] 06-18-2022 21:35-0400 Heart rate 77 /min Orestes JACQUES [facility] 06-18-2022 21:34-0400 gluc 192 mg/dL Orestes JACQUES [facility] 06-18-2022 19:35-0400 Blood Pressure Location Orestes JACQUES [facility] 06-18-2022 19:35-0400 Body temperature 98.06 [degF] Orestes JACQUES [facility] 06-18-2022 19:35-0400 BP/Pulse Patient Position Orestes JACQUES [facility] 06-18-2022 19:35-0400 Heart rate 73 /min Orestes JACQUES [facility] 06-18-2022 19:35-0400 Mean blood pressure 115 mm[Hg] Orestes JACQUES [facility] 06-18-2022 19:35-0400 Respiratory rate 16 /min Orestes JACQUES [facility] 06-18-2022 19:35-0400 SaO2% (BldA) [Mass fraction] 93 % Orestes JACQUES [facility] 06-18-2022 16:07-0400 Mean blood pressure 121 mm[Hg] Orestes JACQUES [facility] 06-18-2022 13:10-0400 gluc 234 mg/dL Orestes COOK [facility] 06-18-2022 08:09-0400 Heart rate 71 /min Orestes COOK [facility] 06-17-2022 20:17-0400 Heart rate 89 /min Orestes COOK [facility] 06-17-2022 19:45-0400 Body temperature 98.42 [degF] Orestes COOK [facility] 06-17-2022 19:45-0400 Mean blood pressure 92 mm[Hg] Orestes COOK [facility] 06-17-2022 19:45-0400 Respiratory rate 21 /min Orestes COOK [facility] 06-17-2022 19:30-0400 Mean blood pressure 103 mm[Hg] Orestes COOK [facility] 06-17-2022 19:30-0400 Respiratory rate 20 /min Orestes COOK [facility] 06-17-2022 19:25-0400 Respiratory rate 23 /min Orestes COOK [facility] 06-17-2022 19:18-0400 Body temperature 97.16 [degF] Orestes COOK [facility] 06-17-2022 13:50-0400 Heart rate 74 /min Orestes COOK [facility] 06-17-2022 13:35-0400 Body temperature 98.6 [degF] Orestes COOK [facility] 06-17-2022 13:35-0400 Heart rate 71 /min Orestes COOK [facility] 02-02-2022 11:31-0400 Diastolic blood pressure 87 mm[Hg] Feroz Yury [facility] 02-02-2022 11:31-0400 Mean blood pressure 114 mm[Hg] Feroz Yury [facility] 02-02-2022 11:31-0400 Systolic blood pressure 167 mm[Hg] Feroz Yury [facility] 02-02-2022 11:29-0400 Blood Pressure Location Feroz Yury [facility] 02-02-2022 11:29-0400 Diastolic blood pressure 100 mm[Hg] Feroz Yury [facility] 02-02-2022 11:29-0400 Heart rate 76 /min Feroz Hydean [facility] 02-02-2022 11:29-0400 Respiratory rate 16 /min Feroz Hydean [facility] 02-02-2022 11:29-0400 SaO2% (BldA) [Mass fraction] 98 % Feroz Hydean [facility] 02-02-2022 11:29-0400 Systolic blood pressure 171 mm[Hg] Feroz Yury [facility] 11-26-2021 11:06-0400 Blood Pressure Location Wendy Simmonse [facility] 11-26-2021 11:06-0400 Diastolic blood pressure 78 mm[Hg] Wendy Lue [facility] 11-26-2021 11:06-0400 Heart rate 68 /min Wendy Lue [facility] 11-26-2021 11:06-0400 Respiratory rate 16 /min Wendy Simmonse [facility] 11-26-2021 11:06-0400 Systolic blood pressure 132 mm[Hg] Wendy Lue [facility] 11-24-2021 08:56-0400 Diastolic blood pressure 76 mm[Hg] Feroz Yury [facility] 11-24-2021 08:56-0400 Mean blood pressure 107 mm[Hg] Feroz Yury [facility] 11-24-2021 08:56-0400 Systolic blood pressure 169 mm[Hg] Feroz Yury [facility] 11-24-2021 08:54-0400 Blood Pressure Location Feroz Yury [facility] 11-24-2021 08:54-0400 Diastolic blood pressure 99 mm[Hg] Gabrielaamed Yury [facility] 11-24-2021 08:54-0400 Heart rate 74 /min Gabrielaamed Uyry [facility] 11-24-2021 08:54-0400 Respiratory rate 16 /min Feroz Yury [facility] 11-24-2021 08:54-0400 SaO2% (BldA) [Mass fraction] 98 % Feroz Yury [facility] 11-24-2021 08:54-0400 Systolic blood pressure 184 mm[Hg] Feroz Yury [facility] 07-22-2021 12:44-0500 Body height 157.48 cm Albertina R Kuns Work Phone: [facility] 600 DO Work Phone: 07-22-2021 12:44-0500 Body mass index (BMI) [Ratio] 34.39 kg/m2 Albertina R Kuns Work Phone: [facility] 600 DO Work Phone: 07-22-2021 12:44-0500 Body surface area Derived from formula 1.86 m2 Albertina R Kuns Work Phone: [facility] 600 DO Work Phone: 07-22-2021 12:44-0500 Body weight 85.28 kg Alebrtina R Kuns Work Phone: [facility] 600 DO Work Phone: 07-22-2021 12:44-0500 Diastolic blood pressure 84 mm[Hg] Albertina R Kuns Work Phone: [facility] 600 DO Work Phone: 07-22-2021 12:44-0500 Heart rate 80 /min Albertina R Kuns Work Phone: [facility] 600 DO Work Phone: 07-22-2021 12:44-0500 Systolic blood pressure 124 mm[Hg] Albertina R Kuns Work Phone: [facility] 600 DO Work Phone: 07-10-2021 14:08-0500 Body height 157.48 cm Albertina R Kuns Work Phone: [facility] 600 DO Work Phone: 07-10-2021 14:08-0500 Body mass index (BMI) [Ratio] 33.84 kg/m2 Albertina R Kuns Work Phone: [facility] 600 DO Work Phone: 07-10-2021 14:08-0500 Body surface area Derived from formula 1.85 m2 Albertinamal Arndt Work Phone: [facility] 600 DO Work Phone: 07-10-2021 14:08-0500 Body weight 83.92 kg Albertina R Lanes Work Phone: [facility] 600 DO Work Phone: 07-10-2021 14:08-0500 Diastolic blood pressure 80 mm[Hg] Albertina R [employer] Work Phone: [facility] 600 DO Work Phone: 07-10-2021 14:08-0500 Heart rate 50 /min [facility] R Lanes [facility] Work Phone: 07-10-2021 14:08-0500 Systolic blood pressure 126 mm[Hg] Albertina R Lanes [facility] 600 DO Work Phone: Encounters Encounter Date Encounter Type Care Provider Facility Start: 08-08-2024 ambulatory Yulissa Shaw Facilit y:TAMMY Connors Start: 06-27-2024 End: 06-27-2024 ambulatory Yulissa X Larsch Facility:TAMMY Connors Start: 06-27-2024 End: 06-27-2024 Patient encounter procedure Yulissa X Orascencionch [facility] [place] Start: 04-05-2024 ambulatory Yulissa Shaw Facility: TAMMY Givens Start: 03-30-2024 End: 03-30-2024 ambulatory Glynn DENT Facility:CD:[id number] Start: 03-13-2024 ambulatory Glynn DENT Facili ty:[id number] Start: 02-25-2024 End: 02-26-2024 ambulatory MARCO KURTZ Not Available Start: 02-19-2024 End: 02-23-2024 Evaluation and management of inpatient LEONEL Corona Facility:[facility] Start: 02-19-2024 Emergency department patient visit Rose Alvarado Facility:[facility] Start: 02-19-2024 End: 02-23-2024 Evaluation and management of inpatient Glynn Tipton AGNES [facility] Start: 08-19-2023 ambulatory Wendy Gold Facility:Ayse Milner Start: 08-05-2023 End: 08-05-2023 Admission to same day surgery center Orestes JACQUES [facility] Start: 08-05-2023 End: 08-05-2023 ambulatory Orestes JACQUES Facility:[facility] Start: 08-04-2023 End: 08-04-2023 ambulatory Albertinamal Arndt Facility:[facility] Start: 08-04-2023 End: 08-04-2023 ambulatory DO Albertina Kuns Work Phone: [facility] Work Phone: Start: 08-04-2023 End: 08-04-2023 Patient encounter procedure DO Albertina Kuns Work Phone: [facility] [place] Work Phone: Start: 07-28-2023 End: 07-28-2023 Office outpatient visit 15 minutes Sterling Florian DO Work Phone: [facility] Comment on above: 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; S/P CABG x 4; Type 2 diabetes mellitus with other specified complication, with long-term current use of insulin ([facility]); Mixed hyperlipidemia; Primary hypertension; History of [place] (myocardial infarction) Start: 07-28-2023 End: 07-28-2023 ambulatory [facility] Start: 07-23-2023 End: 07-23-2023 ambulatory Orestes JACQUES Facility:[facility] Start: 07-23-2023 End: 07-23-2023 Patient encounter procedure Orestes JACQUES [facility] Start: 07-15-2023 End: 07-15-2023 ambulatory Orestes JACQUES Facility::[id number] Start: 07-02-2023 End: 07-02-2023 ambulatory Orestes JACQUES Facility:[facility] Start: 06-30-2023 Telephone encounter Albertina Arndt [facility] Start: 06-30-2023 End: 06-30-2023 ambulatory Orestes JACQUES [facility] Other Start: 06-30-2023 End: 06-30-2023 Patient encounter procedure Orestes JACQUES [facility] Start: 06-21-2023 End: 06-21-2023 ambulatory Garrett Palmer Other [employer] Other Start: 06-21-2023 Telephone encounter Garrett Palmer G [facility] Start: 06-10-2023 End: 06-10-2023 ambulatory Orestes JACQUES Facility:[facility] Start: 06-10-2023 End: 06-10-2023 Patient encounter procedure Orestes JACQUES [facility] Start: 06-08-2023 End: 06-08-2023 ambulatory Albertina Arndt Other [employer] Other Start: 06-08-2023 Telephone encounter [facility]ina [facility]ndt [facility] Start: 05-27-2023 End: 06-02-2023 Evaluation and management of inpatient Paola Gennari Facility:[facility] Start: 05-26-2023 End: 10-04-2023 Evaluation and management of inpatient Paola Gennari [facility] Start: 05-25-2023 End: 05-25-2023 ambulatory Glynn DENT Facility:[facility] Start: 05-25-2023 End: 05-25-2023 Patient encounter procedure Glynn DENT [facility] Start: 05-24-2023 ambulatory Wendy Gold Facility:[facility]se Milner Start: 05-17-2023 Telephone encounter Albertina Arndt [facility] Start: 05-17-2023 End: 05-17-2023 ambulatory Glynn DENT [facility] Other Start: 05-17-2023 End: 05-17-2023 Patient encounter procedure Glynn DENT [facility] Start: 05-09-2023 End: 05-11-2023 ambulatory Margareth DANIELS Facility:[facility] Start: 05-09-2023 End: 05-11-2023 Observation [facility] Start: 03-29-2023 Documentation procedure Mammog elvia Coordinator [facility] Start: 03-29-2023 Letter encounter Mammography Coordinator [facility] Start: 03-26-2023 End: 03-26-2023 ambulatory ALBERTINA ARNDT [facility] [employer] Other Start: 03-26-2023 Telephone encounter Albertina Arndt [facility] Start: 03-26-2023 End: 03-26-2023 Subsequent hospital visit by physician Screen/Diag Mammo [facility] 3 Work Phone: [facility] Radiology Mammography Comment on above: Z12.31 ENCOUNTER SCR EENING MAMMOGRAM FOR BREAST CANCER Start: 11-24-2022 Telephone encounter [facility]ina [facility]ndt [facility] Start: 11-24-2022 End: 11-24-2022 ambulatory DO Albertina Arndt Work Phone: [facility] Work Phone: Start: 11-24-2022 End: 11-24-2022 Patient encounter procedure DO Albertina Arndt Work Phone: [facility] [place] Work Phone: Start: 11-17-2022 End: 11-17-2022 Patient encounter procedure Wendy Gold [facility] Start: 11-13-2022 End: 11-14-2022 Emergency department patient visit Blaire Tipton Louis [facility] Start: 10-29-2022 End: 10-29-2022 Patient encounter procedure Wendy oGld [facility] Start: 10-14-2022 End: 10-14-2022 Patient encounter procedure Wendy Gold [facility] Start: 08-19-2022 End: 08-19-2022 Patient encounter procedure Wendy Gold [facility] Start: 07-29-2022 Office outpatient vi sit 15 minutes Albertina Arndt Work Phone: [facility] 250 DO Work Phone: Start: 07-29-2022 ambulatory Albertina Arndt Facili ty: Start: 07-13-2022 End: 07-13-2022 Patient encounter procedure Wendy Gold [facility] Start: 07-06-2022 End: 07-06-2022 Patient encounter procedure Orestes JACQUES [facility] Start: 06-17-2022 End: 06-19-2022 Evaluation and management of inpatient Orestes JACQUES [facility] Start: 06-08-2022 End: 06-08-2022 Patient encounter procedure Wendy Gold [facility] Start: 04-02-2022 Rx Renewal Albertina Arndt Work Phone: [facility] Work Phone: Start: 02-02-2022 End: 02-02-2022 Patient encounter procedure Feroz Cotton [facility] Start: 01-28-2022 Documentation procedure Mammog elvia Coordinator [facility] Start: 01-28-2022 Letter encounter Mammography Coordinator [facility] Start: 01-28-2022 End: 01-28-2022 Subsequent hospital visit by physician Screen Mammo [facility] Mammography Start: 12-26-2021 Rx Renewal Albertina Arndt Work Phone: [facility] 250 DO Work Phone: Start: 12-17-2021 End: 12-17-2021 ambulatory Albertina Arndt Other [employer] [facility] Other Start: 12-17-2021 Telephone encounter Albertina Arndt [facility] [place] Start: 12-10-2021 End: 12-10-2021 Patient encounter procedure Feroz Cotton [facility] Start: 11-26-2021 End: 11-26-2021 Patient encounter procedure Wendy Gold [facility] Start: 11-24-2021 End: 11-24-2021 Patient encounter procedure Feroz Cotton [facility] Start: 11-17-2021 End: 11-17-2021 Patient encounter procedure Wendy Gold [facility] Start: 10-15-2021 Telephone encounter Albertina talbert Work Phone: [facility] 250 DO Work Phone: Start: 10-07-2021 End: 10-08-2021 ambulatory WENDY SIMMONSAyse . Facility:[facility] Start: 10-06-2021 End: 10-06-2021 ambulatory Albertina Arndt Other [facility] [employer] Other Start: 10-06-2021 Telephone encounter Albertina Arndt [facility] [place] Start: 09-19-2021 ambulatory Albertina Arndt Facili ty: Start: 09-08-2021 Rx Renewal Albertina Arndt Work Phone: [facility] [place] 250 DO Work Phone: Start: 08-20-2021 End: 08-21-2021 ambulatory KANWAL THIBODEAUX Facility:[facility] Start: 08-08-[address] STERLING FLORIAN Fa cility:[facility] Start: 07-22-2021 EPV, Provider: Kanwal Shah, Status: Pen, Time: 12:30 PM Albertina Arndt Work Phone: [facility] 250 DO Work Phone: Start: 07-22-2021 Office outpatient vi sit 15 minutes Albertina Baldemar Shermans Work Phone: [facility] 600 DO Work Phone: Start: 07-21-2021 Chart Update Albertina Baldemar Shermans Work Phone: [facility] 250 DO Work Phone: Start: 07-16-2021 NURSEVST, Provider: SILVIANO [employer] [employer]PRESENTATIVE 1,[id number], Status: Pen, Time: 1:30 PM Albertina Baldemar Shermans Work Phone: [facility] 250 DO Work Phone: Start: 07-14-2021 Chart Update Albertina Baldemar Kuns Work Phone: [facility] 250 DO Work Phone: Start: 07-10-2021 Office outpatient vi sit 25 minutes Albertina Baldemar Shermans Work Phone: [facility] 250 DO Work Phone: Start: 07-10-2021 Patient encounter procedure Albertina Arndt Work Phone: [facility] 600 DO Work Phone: Start: 06-12-2021 Telephone encounter Albertina Hair [facility] [place] Start: 07-07-2017 Ambulatory PROVIDER UNKNOWN Facili ty:[id number] Start: 04-22-2017 Ambulatory KANWAL MANN Facility: [id number] Start: 01-01-2004 Evaluation and manag ement of inpatient DO Albertinamal Arndt Work Phone: [facility] [place] [facility] Work Phone: Procedures Date Procedure Procedure Detail Performing Clinician Start: 07-27-2023 History of coronary artery bypass grafting S/P CABG x 4 Sterling Florian DO Work Phone: Start: 06-29-2023 History of percutane ous transluminal coronary angioplasty History of PTCA Sterling Anival DO Work Phone: Start: 05-27-2023 Cystoscopy Paola [...] above: x2; section Wendy Lue Colonoscopy Albertina Arndt Work Phone: Comment on above: [id number] C stanley; Coronary artery bypa ss graft operation planned Wendy Gold History of coronary artery bypass grafting S/P CABG x 4 Albertina R Hair Work Phone: History of coronary artery bypass grafting S/P CABG x 4 Sterling Florian DO Work Phone: History of percutane ous transluminal coronary angioplasty History of PTCA Albertina R Hair Work Phone: Lithotripsy Albertina R Lanes Work Phone: Screening for malign ant neoplasm of breast Albertinamal Arndt Other Screening for malign ant neoplasm of breast Albertinamal Arndt Other Transurethral cystoscopy Joao JACQUES Comment on above: With left stent satish terrell, ureteroscopy, laser stone basket Plan of Treatment Date Care Activity Detail Author Start: 11-13-2032 DTaP/Tdap/Td Vaccines (2 - Td or Tdap) DTaP/Tdap/Td Vaccines (2 - Td or Tdap) [facility] Start: 04-07-2025 DIABETES SCREEN DIABETES SCREEN [employer] [facility] Start: 04-07-2025 Diabetes Screening Diabetes Screening [facility] Start: 03-26-2024 Mammography [facility] Start: 03-26-2024 Screening for malignant neoplasm of breast Mammogram [facility] Start: 07-28-2023 End: 07-28-2024 Alanine aminotransferase [Enzymatic activity/volume] in Serum or Plasma by With P-5'-P Alanine Aminotransferase Lab Routine Mixed hyperlipidemia Expected: 07/28/2023 (Approximate), Expires: 07/28/2024 [facility] Service Area Work Phone: Comment on above: Expected: 07/28/2023 (Approximate), Expi res: 07/28/2024 Start: 07-28-2023 End: 07-28-2024 Aspartate aminotransferase [Enzymatic activity/volume] in Serum or Plasma by With P-5'-P Aspartate Aminotransferase Lab Routine Mixed hyperlipidemia Expected: 07/28/2023 (Approximate), Expires: 07/28/2024 [facility] Work Phone: Comment on above: Expected: 07/28/2023 (Approximate), Expi res: 07/28/2024 Start: 07-28-2023 End: 07-28-2024 Lipid 1996 panel - Serum or Plasma Lipid Panel Lab Routine Mixed hyperlipidemia Expected: 07/28/2023 (Approximate), Expires: 07/28/2024 [facility] Work Phone: Comment on above: Expected: 07/28/2023 (Approximate), Expi res: 07/28/2024 Start: 07-28-2023 FUV, Provider: Sterling Florian, Status: Pen, Time: 10:40 AM FUV, Provider: Sterling Florian, Status: Pen, Time: 10:40 AM [facility] 250 DO Work Phone: Start: 04-30-2023 Covid-19 Vaccine ( season) Covid-19 Vaccine ( season) [facility] Start: 04-30-2023 Influenza vaccination [facility] Start: 01-28-2023 Mammography MAMMOGRAM [facility] Start: 11-24-2022 Bacteria identified in Urine by Culture Urine Culture [facility] Start: 08-30-2022 ADVANCE DIRECTIVE DISCUSSION ADVANCE DIRECTIVE DISCUSSION [facility] Start: 08-30-2022 DEPRESSION ASSESSMENT DEPRESSION ASSESSMENT [facility] Start: 08-09-2022 Glaucoma screening Diabetes: Retinopathy Screening [facility] Start: 06-11-2022 Echocardiography Echocardiogram [facility] Start: 05-12-2022 FUV, Provider: Sterling Florian, Status: Pen, Time: 10:15 AM FUV, Provider: Sterling Florian, Status: Pen, Time: 10:15 AM [facility] 600 DO Work Phone: Start: 04-30-2022 Influenza vaccination INFLUENZA (Season Ended) [facility] Start: 01-23-2022 COVID-19 VACCINE (4 - Booster for Moderna series) COVID-19 VACCINE (4 - Booster for Moderna series) [facility] Start: 11-20-2021 COVID-19 VACCINE (4 - Moderna series) COVID-19 VACCINE (4 - Moderna series) [facility] Start: 08-30-2021 ADVANCE DIRECTIVE DISCUSSION ADVANCE DIRECTIVE DISCUSSION [facility] Start: 07-22-2021 EPV, Provider: Kanwal Shah, Status: Pen, Time: 12:30 PM EPV, Provider: Kanwal Shah, Status: Pen, Time: 12:30 PM [facility] Work Phone: Start: 07-16-2021 NURSEVST, Provider: SILVIANO HOUSTON [employer]ATIONAL SALES REPRESENTATIVE 1,[id number], Status: Pen, Time: 1:30 PM NURSEVST, Provider: SILVIANO HOU[employer]ON [employer] SALES REPRESENTATIVE 1,[id number], Status: Pen, Time: 1:30 PM [facility] Work Phone: Start: 07-02-2021 Pneumococcal Vaccine: 65+ Years (2 - PPSV23 or PCV20) Pneumococcal Vaccine: 65+ Years (2 - PPSV23 or PCV20) [facility] Start: 02-12-2016 BONE DENSITY BONE DENSITY [facility] Start: 02-12-2016 Bone Density Screening Bone Density Screening [facility] Start: 02-12-2016 Pneumococcal Vaccine: 65+ (1 - PCV) Pneumococcal Vaccine: 65+ (1 - PCV) [facility] Start: 02-12-2016 PNEUMOCOCCAL: 65+ (1 - PCV) PNEUMOCOCCAL: 65+ (1 - PCV) [facility] Start: 08-14-2012 Colonoscopy COLONOSCOPY [facility] Start: 08-14-2012 COLORECTAL CANCER SCREENING COLORECTAL CANCER SCREENING [facility] Start: 12-14-2002 DIABETES SCREEN DIABETES SCREEN [facility] Start: 2001 SHINGRIX VACCINE (1 of 2) SHINGRIX VACCINE (1 of 2) [facility] Start: 2001 Zoster Vaccines (1 of 2) Zoster Vaccines (1 of 2) [facility] Start: 02-12-1996 COLOGUARD (FIT-DNA) COLOGUARD (FIT-DNA) [facility] Start: 02-12-[address] COLONOGRAPHY [facility] Start: 02-12-1996 FECAL OCCULT BLOOD FECAL OCCULT BLOOD [facility] Start: 02-12-1996 Lipid 1996 panel - Serum or Plasma Lipid Screening [facility] Start: 02-12-1996 LIPID SCREEN LIPID SCREEN [facility] Start: 02-12-1996 SIGMOIDOSCOPY SIGMOIDOSCOPY [facility] Start: 1970 Urine microalbumin profile [facility] Start: 1970 Urine screening for protein Diabetes: Urine Protein Screening [facility] Start: 1969 HEPATITIS C SCREENING HEPATITIS C SCREENING [facility] Start: 1969 Hepatitis C screening Hepatitis C Screening [facility] Start: 1963 Adult depression screening assessment DEPRESSION SCREENING [facility] Start: 1961 Diabetic foot examination Diabetes: Foot Exam [facility] Start: 1951 Creatinine measurement Creatinine Level [facility] Start: 1951 Hemoglobin A1c measurement Diabetes: Hemoglobin A1C [facility] Start: 1951 Lipid panel Lipid Panel [facility] Start: 1951 Medicare Annual Wellness Visit Medicare Annual Wellness Visit (AWV) [facility] Start: 1951 Potassium measurement Potassium Level [facility] Start: 1951 Screening for malignant neoplasm of colon [facility] Start: 1951 Screening for osteoporosis Bone Density Scan [facility] Start: 1951 Thyroid stimulating hormone measurement TSH Level [facility] Immunizations Immunization Date Immunization Notes Care Provider Fa cility 11-13-2022 tetanus toxoid, redu lakshmi diphtheria toxoid, and acellular pertussis vaccine, adsorbed Kaylinn Dokken [facility] Comment on above: Result Comment: LEFT DELTOID 09-25-2021 SARS-CoV-2 (COVID-19 ) mRNA-1273 vaccine Wendy Francesayse [facility] 05-07-2021 pneumococcal conjuga te vaccine, 13 valent Albertina Arndt Other [facility] 11-28-2020 COVID-19 Odette Arndt Other [facility] Comment on above: Result Comment: 2021: [id number] 10-31-2020 COVID-19 Odetet Shermans Other [facility] Comment on above: Result Comment: 2021: [id number] 12-05-2018 zoster vaccine recombinant Albertina Lanes Other [facility] 12-05-2018 zoster vaccine, unspecified formulation Sterling Florian DO Work Phone: [facility] Work Phone: 08-08-2018 zoster vaccine recombinant Albertinamal Shermans Other [facility] 08-08-2018 zoster vaccine, unspecified formulation Sterling Florian DO Work Phone: [facility] Work Phone: 08-30-2003 influenza virus vaccine, unspecified formulation Albertina Arndt Work Phone: [place] [address] DO Work Phone: Payers Date Payer Category Payer Unknown 2019 Unknown MMO MMO MEDICARE SUPPLEMENT [id number] 2019-Present [phone] [address] [place] [address] Indemnity [id number] 2016 Medicare MEDICARE RAILROA D MEDICARE RAILROAD PB ONLY [id number] 2016-Present [phone] [address] [address] [place] [address] Medicare [id number] 2016 Medicare [id number]. [id number] 1959 Medicare [id number] 1959 Self-pay 1959 Unknown [id number] 1951 Unknown [id number] 2.16.840.1.877709.3.579.2.593 1951 Unknown [id number] 2.16.840.1.724100.3.579.2.593 1951 Unknown [id number] 2.16.840.1.878386.3.579.2.356 1951 Unknown [id number] 2.16.840.1.673663.3.579.2.356 1951 Unknown [id number] 2.16.840.1.468004.3.579.2.727 1951 Unknown [id number] 2.16.840.1.329164.3.579.2.727 1951 Unknown [id number] 2.16.840.1.597825.3.579.2.727 1951 Unknown [id number] 2.16.840.1.443567.3.579.2.727 1951 Unknown [id number] 2.16.840.1.630090.3.579.2.727 1951 Unknown [id number] 2.16.840.1.344214.3.579.2.727 1951 Unknown [id number] 2.16.840.1.782376.3.579.2.727 1951 Unknown [id number] 2.16.840.1.002914.3.579.2.727 1951 Unknown [id number] 2.16.840.1.365808.3.579.2.727 1951 Unknown [id number] 2.16.840.1.115815.3.579.2.727 1951 Unknown [id number] 2.16.840.1.732772.3.579.2.72 1951 Unknown [id number] 2.16.840.1.755321.3.579.2.72 1951 Unknown [id number] 2.16.840.1.027678.3.579.2. 1951 Unknown [id number] 2.16.840.1.776818.3.579.2.72 1951 Unknown [id number] 2.16.840.1.475010.3.579.2. 1951 Unknown [id number] 2.16.840.1.393068.3.579.2. 1951 Unknown [id number] 2.16.840.1.444979.3.579.2. 1951 Unknown [id number] 2.16.840.1.998677.3.579.2.72 1951 Unknown [id number] 2.16.840.1.554091.3.579.2. 1951 Unknown [id number] 2.16.840.1.919247.3.579.2.72 1951 Unknown [id number] 2.16.840.1.259120.3.579.2.72 1951 Unknown [id number] 2.16.840.1.009398.3.579.2.1259 1951 Unknown [id number] 2.16.840.1.655595.3.579.2.1244 1951 Unknown [id number] 2.16.840.1.433263.3.579.2.72 1951 Unknown [id number] 2.16.840.1.323561.3.579.2.727 1951 Unknown [id number] 2.16.840.1.602133.3.579.2.727 1951 Unknown [id number] 2.16.840.1.012076.3.579.2.727 Medicare [id number] Unknown [id number] 2.16.840.1.280260.3.579.2.593 Unknown [facility] [id number] Unknown [id number] 2.16.840.1.442717.3.579.2.531 Unknown [id number] 2.16.840.1.149038.3.579.2.531 Social History Date Type Detail Facility Start: 10-06-2021 End: 07-27-2023 No illicit drug use No illicit drug use [facility] 600 DO Work Phone: [facility] Comment on above: Denies use. Start: 10-06-2021 End: 07-27-2023 Sex Assigned At Female [facility] Other Start: 11-26-2021 End: 06-27-2024 Tobacco smoking status Never smoked tobacco (finding) [facility] Comment on above: Denies use. Tobacco smoking status Never [facility] Comment on above: Denies use. 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 (finding) [facility] Start: 1950 Sex Assigned At Not on file [facility] Start: 1950 Sex Assigned At Female F [facility] Start: 03-27-2016 End: 07-27-2023 Tobacco use and exposure Smokeless tobacco non-user [facility] Start: 07-28-2023 Alcohol intake Lifetime non-d gisele (finding) [facility] Work Phone: Start: 07-18-2023 End: 07-28-2023 Exposure to SARS-CoV-2 (event) Not sure [facility] Medical Equipment Procedure Code Equipment Code Equipment Origin al Text Equipment Identifier Dates FDA Start: 10-01-2021 [id number] FDA Start: 10-21-2021 FDA Start: 10-01-2021 FDA [...] FDA Start: 10-01-2021 CYSTOSCOPY RETROGRADE STENT INSERTION rOestes JACQUES MD 06/17/22 Unknown Ureter R FDA Start: 06-17-2022 CYSTOSCOPY RETROGRADE STENT INSERTION Unknown 10/01/21 Unknown Unknown FDA Start: 10-01-2021 CYSTOSCOPY RETROGRADE STENT INSERTION Orestes JACQUES MD 06/17/22 Unknown Ureter R FDA Start: 06-17-2022 [id number] FDA Start: 05-09-2023 End: 05-27-2023 CYSTOSCOPY RETROGRADE [...] 02/20/24 Unknown Ureter R FDA Start: 02-20-2024 CYSTOSCOPY RETROGRADE STENT INSERTION Unknown 10/01/21 Unknown Unknown FDA Start: 10-01-2021 CYSTOSCOPY RETROGRADE STENT INSERTION Orestes JACQUES MD 06/17/22 Unknown Ureter R FDA Start: 06-17-2022 CYSTOSCOPY STENT INSERTION Glynn DENT MD R 02/20/24 Unknown Ureter R FDA Start: 02-20-2024 Functional Status Date Assessment Result Facility 06-27-2024 Functional Status N/A [facility] 02-19-2024 Functional Status N/A [facility] 02-19-2024 Functional Status [facility] 07-29-2023 Functional Status No [facility] 05-27-2023 Functional Status No [facility] 05-26-2023 Functional Status [facility] 05-25-2023 Functional Status N/A [facility] 05-09-2023 Functional Status N/A [facility] 05-09-2023 Functional Status [facility] 11-13-2022 Functional Status N/A [facility] 10-29-2022 Functional Status N/A [facility] 07-13-2022 Functional Status N/A [facility] 07-02-2022 Functional Status N/A [facility] 06-17-2022 Functional Status No [facility] 06-17-2022 Functional Status [facility] Clinical Notes 12-28-2009 to 06-27-2024 Note Date & Type Note Facility 06-27-2024 Hospital Discharg e instructions Patient Education 06/27/2024 13:07:40 Dietary Guidelines to Help Prevent Kidney Stones Dietary Guidelines to Help Prevent Kidney Stones Kidney stones are deposits of minerals and salts that form inside your kidneys. Your risk of developing kidney stones may be greater depending on your diet, your lifestyle, the medicines you take, and whether you have certain medical conditions. Most people can lower their risks of developing kidney stones by following these dietary guidelines. Your dietitian may give you more specific instructions depending on your overall health and the type of kidney stones you tend to develop. What are tips for following this plan? Reading food labels Choose foods with no salt added or low-salt labels. Limit your salt (sodium) intake to less than 1,500 mg a day. Choose foods with calcium for each meal and snack. Try to eat about 300 mg of calcium at each meal. Foods that contain 200 500 mg of calcium a serving include: ?8 oz (237 mL) of milk, pmeeywg-vsiqiqatcdtq-pjxqj milk, and calcium-fortifiedfruit juice. Calcium-fortified means that calcium has been added to these drinks. ?8 oz (237 mL) of kefir, yogurt, and soy yogurt. ?4 oz (114 g) of tofu. ?1 oz (28 g) of cheese. ?1 cup (150 g) of dried figs. ?1 cup (91 g) of cooked broccoli. ?One 3 oz (85 g) can of sardines or mackerel. Most people need 1,000 1,500 mg of calcium a day. Talk to your dietitian about how much calcium is recommended for you. Shopping Buy plenty of fresh fruits and vegetables. Most people do not need to avoid fruits and vegetables, even if these foods contain nutrients that may contribute to kidney stones. When shopping for convenience foods, choose: ?Whole pieces of fruit. ?Pre-made salads with dressing on the side. ?Low-fat fruit and yogurt smoothies. Avoid buying frozen meals or prepared deli foods. These can be high in sodium. Look for foods with live cultures, such as yogurt and kefir. Choose high-fiber grains, such as whole-wheat breads, oat bran, and wheat cereals. Cooking Do not add salt to food when cooking. Place a salt shaker on the table and allow each person to add their own salt to taste. Use vegetable protein, such as beans, textured vegetable protein (TVP), or tofu, instead of meat in pasta, casseroles, and soups. Meal planning Eat less salt, if told by your dietitian. To do this: ?Avoid eating processed or pre-made food. ?Avoid eating fast food. Eat less animal protein, including cheese, meat, poultry, or fish, if told by your dietitian. To do this: ?Limit the number of times you have meat, poultry, fish, or cheese each week. Eat a diet free of meat at least 2 days a week. ?Eat only one serving each day of meat, poultry, fish, or seafood. ?When you prepare animal proteins, cut pieces into small portion sizes. For most meat and fish, one serving is about the size of the palm of your hand. Eat at least five servings of fresh fruits and vegetables each day. To do this: ?Keep fruits and vegetables on hand for snacks. ?Eat one piece of fruit or a handful of berries with breakfast. ?Have a salad and fruit at lunch. ?Have two kinds of vegetables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 Plavix and metoprolol. 13. Hyperlipidemia (E78.5: Hyperlipidemia, unspecified) On Lipitor. 14. Obesity due to excess calories (E66.09: Other obesity due to excess calories) Recommend therapeutic lifestyle modification changes. 15. On deep vein thrombosis (DVT) prophylaxis (Z79.899: Other fci (current) drug therapy) SCDs. Disposition: Hopefully home in a.m. pending final urine culture result. Physical therapy evaluation for discharge planning. I discussed the diagnosis and plan of care with the patient at the bedside. Moderate level of MDM based on addressing above issues. This documentation was transcribed using voice recognition software. Several attempts were made to ensure accuracy. However inadvertent computerized maintenance aide errors may be present. Felice Marx. Hospitalist. [...] with coronary artery disease. Follow cultures. Ordered: [facility] Hospital Care/Day High 50 Minutes [id number] 2. Acute UTI (urinary tract infection) (N39.0: Urinary tract infection, site not specified) Acute urinary tract infection secondary to retained stone. Continue on IV Zosyn pending final urine culture result. [facility] High 50 Minutes 27065 3. GIOVANNY (acute kidney injury) (N17.9: Acute kidney failure, unspecified) Acute kidney injury secondary to ATN from above sepsis and urinary tract obstruction. Avoid nephrotoxic drugs. Continue on IV fluid. BMP in AM. Ordered: Basic Metabolic Panel Sbsq Hospital Care/Day High 50 Minutes 86005 4. Left renal stone (N20.0: Calculus of kidney) Left UPJ stone present on admission. Status post cystoscopy with JJ stent placement. Urology consult reviewed by me. I appreciate and agree with recommendations. Follow-up with urologist as outpatient for stone treatment. Ordered: Sbsq Hospital Care/Day High 50 Minutes 78428 5. Hydronephrosis of left kidney (N13.30: Unspecified hydronephrosis) Mild left hydronephrosis secondary to above #4. Status post JJ stent placement. [facility]: [facility] High 50 Minutes 07980 6. Leukocytosis (D72.829: Elevated white blood cell [...] artery disease (I25.10: Atherosclerotic heart disease of [place] coronary artery without angina pectoris) Continue on Plavix, metoprolol. 11. Hyperlipidemia (E78.5: Hyperlipidemia, unspecified) On Lipitor. 12. Obesity due to excess calories (E66.09: Other obesity due to excess calories) Recommend therapeutic lifestyle modification changes. 13. On deep vein thrombosis (DVT) prophylaxis (Z79.899: Other long term care social worker (current) drug therapy) SCDs. I discussed the diagnosis and plan of care with the patient at the bedside. High Level of MDM based on addressing above issues. This documentation was transcribed using voice recognition software. Several attempts were made to ensure accuracy. However inadvertent computerized maintenance aide errors may be present. Felice Marx. Hospitalist. [...] Op - General Author:MD Ingrid , Jossy F Date:05/27/23 Plan Transfer/Discharge: Transfer/Discharge Discharge when meets criteria ( To home ). Extracted from: Title:Urology Consult and H&P 2 Author:Orestes JACQUES MD P Date:05/27/23 Impression and Plan Diagnosis Acute sepsis (JWC79-LE A41.9, Working, Medical). Acute UTI (urinary tract infection) (LCL33-RU N39.0, Discharge, Medical). GIOVANNY (acute kidney injury) (VJL17-CS N17.9, Discharge, Medical). Hydronephrosis with ureteral calculus (GGA99-OL N13.2, Working, Medical). Obesity due to excess calories (ERA19-NP E66.09, Discharge, Medical). Course: Worsening, Discussed with [...] Author:Alan souza MD, Ahmad F Date:05/27/23 Plan [place] [employer] (ASA) physical status classification: [...] artery disease (I25.10: Atherosclerotic heart disease of [place] coronary artery without angina pectoris) Hold Plavix, [...] 01:15:00 PM Scheduled Provider:Asif CHISHOLM, Wendy [place] Location:[facility] Appointment Type:URO Office Visit Future Scheduled Tests Laboratory* Basic Metabolic Panel 06/26/22 Radiology* XR Abdomen 1 View 05/28/23 * CTA Abdomen 01/24/24 [facility]10-04-2023 Hospital Discharge instructions Patient Education [...] Treatment for this condition includes: Antibiotic medicine. Bibk-ekf-vzdwbma medicines to treat discomfort. Drinking enough water [...] Follow these instructions at home: Medicines Take fbhj-muu-dqebpmk and prescription medicines only as told by [...] provider. Document Revised: 03/28/2021 Document Reviewed: 03/28/2021 [employer] Patient Education 2022 [employer]. 06/02/2023 11:27:01 Sepsis, Self Care, Adult Sepsis, [...] Follow these instructions at home: Medicines Take ecpa-sfs-koecefs and prescription medicines only as told by [...] and water are not available, use hand transformer maker. Practice good hygiene. Keep cuts clean and [...] right away. Call your local emergency services (954 in the [place] Do not drive yourself to the hospital. If you ever feel like you may hurt yourself or others, or have thoughts about taking your own life,get help right away. Go to your nearest emergency department or: Call your local emergency services (584 in the [place] Call a suicide crisis helpline, such as the National Suicide Prevention Lifeline at or 527 in the [place] This is open 24 hours a day. Text the Crisis Text Line at 332449 (in the [place] Summary Sepsis is a [...] provider. Document Revised: 03/11/2022 Document Reviewed: 06/30/2021 [employer] Patient Education 2022 [employer]. Follow Up Care 05/26/2023 15:42:08 With:ALBERTINA ARNDT Address: [address] [place] [address] [facility] (1) When: Unknown Comments:Call for followup appointment [facility]10-04-2023 NotePatient provided discharge education and instructions on right midline. Report called to Kalpana MARCUM at St. [facility]. Pt denies any questions at this time. Pt transported to patient pickup via wheelchair.[facility]09-28-2023 NoteFisher The [facility]ch Pratt HospitalComment on above:Result Comment: Electronically Signed By: Chuck CHISHOLM, Paola\.br\Date and Time Signed: 05/27/23 02:02 [id number] Hospital Discharge instructions Patient Education 05/25/2023 09:21:01 [...] Address: [facility] [address] [place] [address]- Business (1) When:08/24/2023 09:20:42 Comments:Follow-up is to be with Dr. Matthew Bustamante [facility]09-26-2023 Note [id number]:127[facility] 05-11-2023 Evaluation + Plan noteExtracted from: [...] PM EDT [facility] [address], [facility] [place] [address]- Business (1) Additional Instructions: ALBERTINA ARNDT 05/17/2023 09:30 AM EDT [address] [place] [phone]- Business (1) Additional Instructions: Extracted from: Title:APSO [...] Stone basket extraction. 6. Placement of 6 American variable length left ureteral stent. with Dr. [...] artery disease (I25.10: Atherosclerotic heart disease of [place] coronary artery without angina pectoris) - stable [...] Extracted from: Title:ANES Pre-operative Note - Adult Author:Apolinar harris Jr. Gino ALEX Date:05/09/23 Plan [place] [employer] Anesthesiologists (ASA) physical status classification: [...] Hyperlipidemia, unspecified) Resume Lipitor 7. CAD in [place] artery (I25.10: Atherosclerotic heart disease of [place] coronary artery without angina pectoris) Resume Lopressor [...] Date:05/17/2023 01:30:00 PM Scheduled Provider:Glynn DENT MD Location:[facility] Appointment Type:URO Office Visit Appointment Date:05/24/2023 01:45:00 PM Scheduled Provider:Wendy Gold MD Location:[facility] Appointment Type:URO Office Visit Diagnostic Tests Pending * Calculi Analysis Urinary 05/09/23 Future Scheduled Tests Laboratory* Basic Metabolic Panel 06/26/22 Radiology* CTA Abdomen 01/24/24 [facility]09-12-2023 NoteCRM entered the room to discuss dc planning. PCP, DME and insurance discussed. Patient is alert andinvolved in plan of care. Contact information provided and whiteboard updated. Pt will dc today no needs. CRM to follow.[facility] HospitalComment on above:Result Comment: Electronically Signed By: Rayne Carpenter\.br\Date and Time Signed: 05/11/23 13:40 [id number] Hospital Discharge instructions Follow Up Care 05/11/2023 08:20:52 With:JAILENE CHISHOLM, Glynn Mcdermott, URL Address: [facility] [address] [place] [phone] When: Unknown [facility] 09-12-2023 NoteClinton Memorial HospitalComment on above:Result Comment: Electronically Signed By: ROSEMARY CHISHOLM, Ck\.br\Date and Time Signed: 05/11/23 08:39 [id number] NoteAttempted PT Evaluation, but pt reports she is still Independent but performs slowly . Pt denies needing PT services. No evaluation givenCl[facility]09-10-2023 [facility]:Result Comment: Electronically Signed By: JEREMIAH CHISHOLM, Margareth\.br\Date and Time Signed: 05/09/23 12:[id number] Hospital Discharge instructions Follow Up Care 05/09/2023 08:14:22 With:ALBERTINA ARNDT Address: [address] [place] [phone]- Business (1) When:05/17/2023 09:30:00 With:Glynn DENT Address: [facility] [address] [place] [address]- Business (1) When:05/17/2023 13:30:00 [facility]07-31-2023 Miscellaneous Notes* Letter - Coordinator, [facility] - 03/29/2023 8:29 AM EDT March 30, 2023 PID: [id number] Shahana Grace [address] [place] [address] [place] [address] Dear Ms. Grace, We are pleased to [...] report will be kept on file at [facility] as part of your permanent medical record and are available for your continuing care. Thank you for allowing us to help in meeting your health care needs. Sincerely, Dr. oCsta Interpreting Radiologist [facility] (Normal over 40) documented in this encounterNationwide [facility]07-28-2023 NoteHNO ID: [id number] Author: Izabela Cardona I, RT(R) Service: Radiology [...] BY: RT Mar(Baldemar) March 26, 2023 1:50 [id number] Evaluation note* Encounter Date Diagnosis Assessment Notes Treatment Notes Treatment Clinical Notes Feb, Encounter for screening mammogram for malignant neoplasm of breast (ICD-10 - Z12.31) [employer] Other [id number] History of Present illness Narrative* Izabela Cardona [...] 26, 2023 1:50 PM documented in this encounterNationwide [facility]03-28-2023 Evaluation note* Encounter Date Diagnosis Assessment Notes Treatment Notes Treatment Clinical Notes Oct, Urinary tract infection, site not specified (ICD-10 - N39.0) Oct, Hematuria, unspecified (ICD-10 - R31.9) [place] [employer] Other [id number] Evaluation + Plan noteExtracted from: Title:ED Note [...] day(s), # 15 cap(s), Refills(s) 0, Pharmacy: [id number] 157, cm, 03/17/23 23:40:00 EDT, Height/Length Dosing, 83.2, kg, 11/13/22 23:40:00 EDT, Weight Dosing cephalexin, 500 mg = 1 cap(s), Cap, Oral, Once, Stop date 11/14/22 2:04:00 EDT, STAT, Start date 11/14/22 2:04:00 EDT, 11/14/22 2:04:00 EDT meclizine, 12.5 mg = 1 tab(s), Oral, TID, PRN for dizziness, # 15 tab(s), Refills(s) 0, Pharmacy: [facility] #[id number], 157, cm, 11/13/22 23:40:00 EDT, Height/Length [...] Appointments Appointment Date:11/17/2022 10:00:00 AM Scheduled Provider: [facility] Appointment Type:US Abdominal/Pelvis () Appointment Date:02/08/2023 12:30:00 PM Scheduled Provider:Wendy Gold MD Location:[facility] Appointment Type:URO Office Visit Diagnostic Tests Pending * Urine Culture 11/14/22 Future Scheduled Tests Laboratory* PTH Intact 11/28/22 * Basic Metabolic Panel 06/26/22 * Basic Metabolic Panel 11/28/22 * Uric Acid 11/28/22 Radiology* XR Abdomen 1 View 11/17/21 * XR Abdomen 1 View 12/12/22 * US Renal 11/17/22 * CTA Abdomen 01/24/24 [facility]03-18-2023 Hospital Discharge instructions Patient Education 11/14/2022 02:43:38 Vertigo, Mxix-qb-Dupl Vertigo Vertigo is the feeling that you [...] if you feel dizzy. General instructions Take ximd-njt-soodlxh and prescription medicines only as told by [...] 05/25/2009 Document Revised: 07/10/2019 Document Reviewed: 07/10/2019 [employer] Patient Education 2020 [employer]. 11/14/2022 02:43:38 Urinary Tract Infection, Adult, Brui-md-Lonc Urinary Tract Infection, Adult A urinary tract [...] Follow these instructions at home: Medicines Take tmuo-umx-dcpmijq and prescription medicines only as told by [...] 02/01/2009 Document Revised: 08/03/2019 Document Reviewed: 02/23/2019 [employer] Patient Education 2020 [employer]. 11/14/2022 02:43:38 Head Injury, Adult, Vfdh-xk-Cgfk Head Injury, Adult There are many types [...] or school. Ask your doctor for a cngk-ac-xxhs plan for slowly going back to your [...] your friends, family, a trusted coworker, and flatwork presser about your injury, symptoms, and limits (restrictions). Have them watch for any problems that are new or getting worse. General instructions Take sudj-ile-gualhta and prescription medicines only as told by [...] 07/29/2009 Document Revised: 12/07/2019 Document Reviewed: 09/08/2019 [employer] Patient Education 2020 [employer]. 11/14/2022 02:43:38 Dehydration, Elderly, Htaw-ld-Oelx Dehydration Dehydration is when there is not [...] a lot of fat or sugar. Take czqq-zjw-ifpvzzy and prescription medicines only as told by [...] 08/04/2012 Document Revised: 07/29/2018 Document Reviewed: 10/09/2016 [employer] Patient Education 2020 [employer]. Follow Up Care 11/13/2022 23:08:03 With:ALBERTINA ARNDT Address: [address] [place], [place] [phone] Business (1) When:11/17/2022 Comments:Take the antibiotics 3 [...] ED for any new or worsening symptoms. [facility]03-02-2023 Hospital Discharge instructions Patient Education 10/29/2022 09:23:21 Kidney Stones, Voxe-ji-Srpd Kidney Stones Kidney stones are rock-like masses [...] Follow these instructions at home: Medicines Take bllw-xay-mnsztzs and prescription medicines only as told by [...] 02/01/2009 Document Revised: 01/02/2020 Document Reviewed: 01/02/2020 [employer] Patient Education 2020 [employer] Follow Up Care 10/13/2022 15:07:33 With:Asif CHISHOLM, ONUR Julio, URO Address: When: Unknown [facility] 12-21-2022 Hospital Discharge instructions Patient Education 08/19/2022 12:09:01 Kidney Stones, Tshn-il-Mpep Kidney Stones Kidney stones are rock-like masses [...] Follow these instructions at home: Medicines Take yqjj-tis-gsvfvlm and prescription medicines only as told by [...] 02/01/2009 Document Revised: 01/02/2020 Document Reviewed: 01/02/2020 [employer] Patient Education 2020 [employer]. Follow Up Care 07/13/2022 14:03:46 With:Asif CHISHOLM, ONUR Julio, URO Address: [address], [facility] [place] [phone] When:Within 2 Month(s) [facility] Dory 11-14-2022 Hospital Discharge instructions Patient Education 07/13/2022 [...] include: ?Spinach. ?Rhubarb. ?Beets. ?Potato chips and turks and caicos islander fries. ?Nuts. If you regularly take a diuretic medicine, make sure to eat at least 1 2 fruits or vegetables high in potassium each day. These include: ?Avocado. ?Banana. ?[place], prune, carrot, or tomato juice. ?Baked potato. [...] Casseroles. Pizza. Lasagna. Frozen meals. Potato chips. American fries. Summary You can reduce your risk [...] 12/11/2011 Document Revised: 12/06/2019 Document Reviewed: 07/27/2017 [employer] Patient Education 2020 [employer]. Follow Up Care 11/26/2021 11:40:44 With:Asif CHISHOLM, [place], URL, URO Address: When: Unknown [facility] Annia 11-07-2022 Hospital Discharge instructions Patient Education 07/06/2022 [...] already done so. Have a great day. [facility]10-21-2022 Evaluation + Plan noteExtracted from: [...] Oral, Daily With When Contact Information Orestes [address] [phone]- Business (1) Additional Instructions: scope and removal of the stent under local anesthesia within a couple weeks or so.This office will call you to schedule this. ALBERTINA ARNDT [address] [place] [phone]- Business (1) Additional Instructions: Only if needed. Renal Colic, Wkrr-cy-Bmuh Lithotripsy Laser Therapy for Kidney Stones Kidney Stones, Owxq-nu-Tadn Dietary Guidelines to Help Prevent Kidney Stones Discharge time >30 min Extracted from: Title:ANES POSTOP Author:Johnny Bruce DO Date: 06/17/22 Plan Transfer/ Discharge: Patient can be discharged from PACU when criteria met. Condition good. Extracted from: Title:Urology Consult and H&P 2 Author:Orestes JACQUES MD Date:06/17/22 Impression and Plan Diagnosis Acute renal failure (YMH99-FE N17.9, Discharge, Medical). Hydronephrosis with ureteral calculus (OYB56-GZ N13.2, Working, Medical). Kidney stones (DLD27-MS N20.0, Working, Medical). Complaint of Flank pain (PNED [id number], Reason For Visit, Nursing). Leukocytosis (FIV34-AE D72.829, Discharge, Medical). UTI (urinary tract infection) (KZN71-LI N39.0, Discharge, Medical). Course: Worsening, Reviewed CT [...] Extracted from: Title:ANES PREOP Author:Johnny Bruce DO Date:1 Plan [place] [employer] of Anesthesiologists (ASA) physical status classification: [...] artery disease) (I25.10: Atherosclerotic heart disease of [place] coronary artery without angina pectoris) Continue Plavix Lopressor 9. Obesity (E66.9: Obesity, unspecified) Lifestyle modification 10. DVT prophylaxis (Z29.9: Encounter for prophylactic measures, unspecified) SCD Future Appointments Appointment Date:07/13/2022 01:00:00 PM Scheduled Provider:Wendy Gold MD Location:[facility] Appointment Type:URO Office Visit Diagnostic Tests Pending * Calculi Analysis Urinary 06/17/22 Future Scheduled Tests Laboratory* Basic Metabolic Panel 06/26/22 Radiology* XR Abdomen 1 View 11/17/21 * CV Peripheralvascular 10/14/21 * CTA Abdomen 01/24/24 [facility]10-21-2022 Hospital Discharge instructions Patient Education 06/19/2022 10:34:29 Renal Colic, Keao-oz-Vyzj Renal Colic Renal colic is pain that is caused by a kidney stone. The pain can be sharp and very bad. It may befelt in the back, belly, side (flank), or groin. It can cause nausea. Renal colic can come and go. Follow these instructions at home: Medicines Take rava-xjh-xhfdkhw and prescription medicines only as told by [...] is caused by a kidney stone. Take btan-yhb-rusmlxe and prescription medicines only as told by [...] 02/01/2009 Document Revised: 09/13/2018 Document Reviewed: 09/13/2018 [employer] Patient Education 2020 [employer]. 06/19/2022 10:34:28 Lithotripsy Lithotripsy Lithotripsy is a [...] including vitamins, herbs, eye drops, creams, and xqim-hny-qgkkwas medicines. Any blood disorders you have. Any [...] 08/13/2001 Document Revised: 11/27/2019 Document Reviewed: 07/07/2017 [employer] Patient Education 2020 [employer]. 06/19/2022 10:34:26 Laser Therapy for Kidney Stones [...] including vitamins, herbs, eye drops, creams, and zxpk-raq-mryqquh medicines. Any problems you or family members [...] provider tells you to take them. ?Taking mxfx-bxl-vtlkitr medicines, vitamins, herbs, and supplements. Eating and [...] 09/11/2016 Document Revised: 04/27/2019 Document Reviewed: 04/27/2019 [employer] Patient Education 2020 [employer]. 06/19/2022 10:34:24 Kidney Stones, Yowy-yy-Exvi Kidney Stones Kidney stones are rock-like masses [...] Follow these instructions at home: Medicines Take tiyr-raa-mmnigzt and prescription medicines only as told by [...] 02/01/2009 Document Revised: 01/02/2020 Document Reviewed: 01/02/2020 [employer] Patient Education 2020 [employer]. 06/19/2022 10:34:21 Dietary Guidelines to Help Prevent [...] include: ?Spinach. ?Rhubarb. ?Beets. ?Potato chips and turks and caicos islander fries. ?Nuts. If you regularly take a diuretic medicine, make sure to eat at least 1 2 fruits or vegetables high in potassium each day. These include: ?Avocado. ?Banana. ?[place], prune, carrot, or tomato juice. ?Baked potato. [...] Casseroles. Pizza. Lasagna. Frozen meals. Potato chips. American fries. Summary You can reduce your risk [...] 12/11/2011 Document Revised: 12/06/2019 Document Reviewed: 07/27/2017 [employer] Patient Education 2020 [employer]. Follow Up Care 06/17/2022 13:29:38 With:Orestes JACQUES Address: [address] [phone]- Business (1) When: Unknown Comments:scope and removal of the stent under local anesthesia within a couple weeks or so.This office will call you to schedule this. With:ALBERTINA ARNDT Address: [address] [place] [phone]- Business (1) When: Unknown Comments:Only if needed. [facility]06-01-2022 Miscellaneous Notes* Letter - Mammography Coordinator - 01/28/2022 2:40 PM EDT January 28, 2022 PID: [id number] Shahana Grace [address] [place] [address] Dear Ms. Grace, We are pleased to [...] report will be kept on file at [facility] as part of your permanent medical record and are available for your continuing care. Thank you for allowing us to help in meeting your health care needs. Sincerely, Dr. Green Interpreting Radiologist [facility] (Normal over 40) documented in this encounterNationwide [facility]06-01-2022 NoteHNO ID: [id number] Author: Selena Wu RT(R) Service: ? Author Type: Technologist Type: [...] BY: RT Gavino(R) January 28, 2022 12:51 [facility]06-01-2022 History of Present illness Narrative* Selena [...] 28, 2022 12:51 PM documented in this encounterN[facility]04-20-2022 Evaluation note* Encounter Date Diagnosis Assessment Notes Treatment Notes Treatment Clinical Notes Nov, Encounter for screening mammogram for malignant neoplasm of breast (ICD-10 - Z12.31) [facility] Other 03-30-2022 Hospital Discharge instructions Patient Education 11/26/2021 11:36:58 Kidney Stones, Njqm-nu-Choa Kidney Stones Kidney stones are rock-like masses [...] Follow these instructions at home: Medicines Take xxbi-rqf-crevoww and prescription medicines only as told by [...] 02/01/2009 Document Revised: 01/02/2020 Document Reviewed: 01/02/2020 [employer] Patient Education 2019 [employer]. Follow Up Care 10/27/2021 10:22:19 With:Asif CHISHOLM, ONUR Julio, URO Address: [address] [place] [phone] Business (1) When: Unknown [facility] RECCY 02-07-2022 NoteHNO ID: [id number] Author: Garcia Vieyra OD Service: ? Author Type: WINDOW CLEANER Type: Progress Notes Filed: 10/06/2021 10:56 AM [...] vision, light sensitivity, or contact lens intolerance develops.[facility] 08-09-2021 NoteHNO ID: [id number] Author: Johnny Crespo MD Service: ? Author Type: Physician Type: Progress Notes Filed: 08/09/2021 12:02 PM Note Text: H25.13 Nuclear senile cataract of both eyes (primary encounter diagnosis) Comment: not visually significant OU E11.9 Controlled type 2 diabetes mellitus without complication, without long-term current use of insulin ([facility]) Comment: no Retinopathy Tight control - Stressed blood sugar and blood pressure control and close follow-up with PCP/television maintenance man. - Advised of importance in blood sugar and blood pressure control in reducing risk of vision loss. - Advised of importance of annual eye exams with sooner follow-up if any new symptoms develop. Return in 1 year Manifest refraction; see proofer for CLs I have confirmed and edited [...] relevant components. Johnny Crespo MD, 08/09/2021 12:01 [facility]05-01-2010 History general Narrative - Reported* Type Description Date Medical History 2008 pelvic exam done - [facility] Medical History 2009 mammogram done - [facility] Medical History 2002 colonscopy - [facility] Medical History No stress test Medical History Hgb A1c 5-1-10 (6.3) Medical History Coronary artery disease Medical History myocardial infarction Medical History CHF (05/2021) Medical History Hypertensive urgency (05/2021) Surgical History C-Sections x 2 Surgical History appendectomy Surgical History Median sternotomy 05/24/17 Surgical History Coronary bypass grafting x 4 Hospitalization History as above Hospitalization History [facility]; Hypert ensive urgency 05/2021 [facility] Other Evaluation + Plan note Future Appointments Appointment Date:11/24/2021 09:00:00 AM Scheduled Provider:Feroz Cotton MD [facility] Appointment Type:Vascular Follow Up (FT) Appointment Date:11/26/2021 09:45:00 AM Scheduled Provider:Wendy Gold MD Location:[facility] Appointment Type:URO Office Visit Future Scheduled Tests Radiology* XR Abdomen 1 View 11/17/21 * CV Peripheralvascular 10[facility]14/21 [facility] App[facility]ments Appointment Date:11/26/2021 09:45:00 AM Scheduled Provider:Wendy Gold MD Location:[facility] Appointment Type:URO Office Visit Future Scheduled Tests Radiology* XR Abdomen 1 View 11/17/21 * CV Peripheralvascular 10/14/21 [facility] Future Appointments Appointment Date:06/01/2022 02:00:00 PM Scheduled Provider:Wendy Gold MD Location:[facility] Appointment Type:URO Office Visit Future Scheduled Tests Radiology* XR Abdomen 1 View 11/17/21 * XR Abdomen 1 View 05/29/22 * US Renal 05/29/22 * CV Peripheralvascular 10/14/21 [facility] evaluation + Plan note Future Appointments Appointment Date:01/12/2022 11:30:00 AM Scheduled Provider:Feroz Cotton MD Location[facility] Appointment Type:Vascular Follow Up (FT) Appointment Date:06/01/2022 02:00:00 PM Scheduled Provider:Wendy Gold MD Location:[facility] Appointment Type:URO Office Visit Future Scheduled Tests Radiology* XR Abdomen 1 View 11/17/21 * XR Abdomen 1 View 05/29/22 * US Renal 05/29/22 * CV Peripheralvascular 10/14/21 [facility] Future Appointments Appointment Date:07/13/2022 01:00:00 PM Scheduled Provider:Wendy Gold MD Location:[facility] Appointment Type:URO Office Visit Future Scheduled Tests Radiology* XR Abdomen 1 View 11/17/21 * CV Peripheralvascular 10/14/21 * CTA Abdomen 01/24/24 [facility] Future Appointments Appointment Date:07/13/2022 01:00:00 PM Scheduled Provider:Wendy Gold MD Location:[facility] Appointment Type:URO Office Visit Future Scheduled Tests Laboratory* Basic Metabolic Panel 06/26/22 Radiology* XR Abdomen 1 View 11/17/21 * CV Peripheralvascular 10/14/21 * CTA Abdomen 01/24/24 [facility] Future Appointments Appointment Date:08/19/2022 10:45:00 AM Scheduled Provider:Wendy Gold MD Location:[facility] Appointment Type:URO Office Visit Future Scheduled Tests Laboratory* Basic Metabolic Panel 06/26/22 Radiology* XR Abdomen 1 View 11/17/21 * CV Peripheralvascular 10/14/21 * CTA Abdomen 01/24/24 [facility] Evaluation + Plan note Future Appointments Appointment Date:10/14/2022 10:45:00 AM Scheduled Provider:Wendy Gold MD Location:[facility] Appointment Type:URO Office Visit Future Scheduled Tests Laboratory* Basic Metabolic Panel 06/26/22 Radiology* XR Abdomen 1 View 11/17/21 * CV Peripheralvascular 10/14/21 * CTA Abdomen 01/24/24 [facility] evaluation + Plan note Future Appointments Appointment Date:10/29/2022 09:00:00 AM Scheduled Provider:Wendy Gold MD Location:[facility] Appointment Type:URO Office Visit Future Scheduled Tests Laboratory* Basic Metabolic Panel 06/26/22 Radiology* XR Abdomen 1 View 11/17/21 * CTA Abdomen 01/24/24 [facility] evaluation + Plan note Future Appointments Appointment Date:02/08/2023 12:30:00 PM Scheduled Provider:Wendy Gold MD Location:[facility] Appointment Type:URO Office Visit Future Scheduled Tests Laboratory* PTH Intact 11/28/22 * Basic Metabolic Panel 06/26/22 * Basic Metabolic Panel 11/28/22 * Uric Acid 11/28/22 Radiology* XR Abdomen 1 View 11/17/21 * XR Abdomen 1 View 12/12/22 * US Renal 12/12/22 * CTA Abdomen 01/24/24 [facility] Evaluation + Plan note Future Appointments Appointment Date:02/08/2023 12:30:00 PM Scheduled Provider:Wendy Gold MD Location:[facility] Appointment Type:URO Office Visit Future Scheduled Tests Laboratory* PTH Intact 11/28/22 * Basic Metabolic Panel 06/26/22 * Basic Metabolic Panel 11/28/22 * Uric Acid 11/28/22 Radiology* XR Abdomen 1 View 11/17/21 * XR Abdomen 1 View 12/12/22 * CTA Abdomen 01/24/24 [facility] Future Appointments Appointment Date:05/19/2023 09:00:00 AM Scheduled Provider: Location:[facility] Appointment Type:Urology CALL PAT FT Appointment Date:05/25/2023 08:45:00 AM Scheduled Provider: Location:[facility] Appointment Type:Urology FT Future Scheduled Tests Laboratory* Basic Metabolic Panel 06/26/22 Radiology* CTA Abdomen 01/24/24 [facility] Dory evaluation + Plan note Future Appointments Appointment Date:08/19/2023 01:15:00 PM Scheduled Provider:Wendy Gold MD Location:[facility] Appointment Type:URO Office Visit Future Scheduled Tests Laboratory* Basic Metabolic Panel 06/26/22 Radiology* CTA Abdomen 01/24/24 [facility] Future App[facility]ments Appointment Date:08/19/2023 01:15:00 PM Scheduled Provider:Wendy Gold MD Location:[facility] Appointment Type:URO Office Visit Future Scheduled Tests Laboratory* Basic Metabolic Panel 06/26/22 Radiology* XR Abdomen 1 View 05/28/23 * CTA Abdomen 01/24/24 [facility] Future Appointments Appointment Date:08/19/2023 01:15:00 PM Scheduled Provider:Wendy Gold MD Location:[facility] Appointment Type:URO Office Visit Future Scheduled Tests Laboratory* PT & PTT 06/15/23 * BUN 06/15/23 * Creatinine 06/15/23 * Electrolyte Panel 06/15/23 * CBC w/ Auto Diff 06/15/23 Radiology* XR Abdomen 1 View 05/28/23 * CTA Abdomen 01/24/24 [facility] Future Appointments Appointment Date:08/19/2023 01:15:00 PM Scheduled Provider:Wendy Gold MD Location:[facility] Appointment Type:URO Office Visit Future Scheduled Tests Radiology* CTA Abdomen 01/24/24 [facility] Future Appointments Appointment Date:08/19/2023 01:15:00 PM Scheduled Provider:Wendy Gold MD Location:[facility] Appointment Type:URO Office Visit Diagnostic Tests Pending * Calculi Analysis Urinary 08/05/23 Future Scheduled Tests Radiology* CTA Abdomen 01/24/24 [facility] Future Appointments Appointment Date:08/08/2024 11:30:00 AM Scheduled Provider:PEEWEE Shaw APRN, [place] [facility] Location:[facility] Appointment Type:URO Office Visit Diagnostic Tests Pending * Electrolyte Panel 06/27/24 Future Scheduled Tests Radiology* XR Abdomen 1 View 06/27/24 * US Renal 06/27/24 * CTA Abdomen 01/24/24 [facility] evaluation noteNo InformationNort [employer] Other Evaluation noteNo assessment information available [facility] Work Phone: Evaluation note* Diagnosis 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 [facility] 600 DO Work Phone: History of [...] patient is adherent with her medication regimen. [facility] 600 DO Work Phone: History of [...] patient is adherent with her medication regimen. [facility] 250 DO Work Phone: History of Present illness Narrative* The patient states she has been generally doing well since the last visit. Comorbid Illnesses: diabetes mellitus, hypertension and hyperlipidemia. * Symptoms: denies chest pain at rest, denies exertional chest pain, denies dyspnea, improved fatigue, improved exercise intolerance, denies palpitations, denies edema, denies orthopnea, improved dizziness and improved orthostatic dizziness. 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 History of KS (myocardial infarction) Sterling Florian DO [address] [facility], [address] [address] Referral ID Status Reason Start Date Expiration Date Visits Requested Visits Authorized [id number] Authorized Specialty Services Required 3 07/27/2024 1 1 * Consultation (Routine) - Authorized Specialty Diagnoses / Procedures Referred By Elen mckeon Referred To Contact Cardiology Diagnoses 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 * Hospitalized at [facility] due to volume overload, Echo [...] Presents today with . * Hospitalized at [facility] due to volume overload, Echo [...] Presents today with . * Hospitalized at [facility] due to volume overload, Echo [...] of volume depletion. * Patient presents to [facility] for cardiovascular evaluation. * Patient is [...] or hospitalizations. 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 of the [...] section and content) DATE CREATED AUTHOR 02/22/2018 [facility] DATE CREATED AUTHOR AUTHOR'S ORGANIZ ATION [facility]/14/2021 [facility] DATE CREATED AUTHOR AUTHOR'S ORGANIZ ATION 01/30/2022 [facility] DATE CREATED AUTHOR AUTHOR'S ORGANIZ ATION 07/29/2022 [facility] DATE CREATED AUTHOR AUTHOR'S ORGANIZ ATION 07/30/2022 [employer] DATE CREATED AUTHOR AUTHOR'S ORGANIZ ATION 03/31/2023 [facility] DATE CREATED AUTHOR AUTHOR'S ORGANIZ ATION 10/08/2023 [facility] DATE CREATED AUTHOR AUTHOR'S ORGANIZ ATION 02/20/2024 [facility] DATE CREATED AUTHOR AUTHOR'S ORGANIZ ATION 02/21/2024 [facility] DATE CREATED AUTHOR AUTHOR'S ORGANIZ ATION 02/22/2024 [facility] DATE CREATED AUTHOR AUTHOR'S ORGANIZ ATION 02/23/2024 [facility] DATE CREATED AUTHOR AUTHOR'S ORGANIZ ATION 02/24/2024 [facility] DATE CREATED AUTHOR AUTHOR'S ORGANIZ ATION 02/26/2024 [facility] DATE CREATED AUTHOR AUTHOR'S ORGANIZ ATION 02/27/2024 [facility] dical [facility] EPIC DATE CREATED AUTHOR AUTHOR'S ORGANIZ ATION 02/28/2024 [facility] DATE CREATED AUTHOR AUTHOR'S ORGANIZ ATION 03/15/2024 [facility] DATE CREATED AUTHOR AUTHOR'S ORGANIZ ATION 06/29/2024 [facility] Source Comments (unrecognize d section and content) In the event this informatio n is protected by the Federal Confidentiality of Alcohol and Drug Abuse Patient Records regulations: The Federal rules restrict any use of the information to criminally investigate or prosecute any alcohol or drug abuse patient.[facility] Hospital[facility] the event this information is protected by the Federal Confidentiality of Alcohol and Drug Abuse Patient Records regulations: The Federal rules restrict any use of the information to criminally investigate or prosecute any alcohol or drug abuse patient.[facility] the event this information is protected by the Federal Confidentiality of Alcohol and Drug Abuse Patient Records regulations: The Federal rules restrict any use of the information to criminally investigate or prosecute any alcohol or drug abuse patient.[facility] HospitalIn the event this information is protected by the Federal Confidentiality of Alcohol and Drug Abuse Patient Records regulations: The Federal rules restrict any use of the information to criminally investigate or prosecute any alcohol or drug abuse patient.[facility] Care Teams (unrecognized sec tion and content) [employer] Relationship Specialty Start Date End Date Albertina Arndt [address] [place] [phone] PCP - General Family Practice 11/11/20 Team Status: Active Member Role Status Dates Albertina Arndt DO Primary Care Provider Active Team Status: Active Member Role Status Dates Rudolph Ram D.O. Attending Provider Active Team Status: Inactive Member Role Status Dates Albertina Arndt DO Primary Care Provider, Attending Provi breanna Active Machine [employer] Engraver Relationship Specialty Start Date End Date Albertina Arndt [address] [place] [phone] PCP - General Family Medicine 11/11/20 Machine [employer] Engraver Relationship Specialty Start Date End Date Albertina Arndt [address] [place] [phone] PCP - General Family Medicine 11/11/20 Machine [employer] Engraver Relationship Specialty Start Date End Date Albertina Arndt [address] [place] [phone] PCP - General Family Medicine 11/11/20 Machine [employer] Engraver Relationship Specialty Start Date End Date LaneAlbertina reyes DO [address] [place] [phone] PCP - General Family Medicine 07/28/23 Team [...] BE BASED ON THE PRIMARY CLINICAL RECORDS. [employer] [facility]. provides no warranty or guarantee of the accuracy or completeness of information in this document.
[2024-07-14 11:38] LABS: Anion Gap 19.3; Carbon Dioxide 20.6 mmol/L (21.0-32.0); Chloride 111 mmol/L (98-107); Potassium 5.9 mmol/L (3.5-5.1); Sodium 145 mmol/L (136-145)
== END 2024-07-14 09:14 | disposition home or self-care (01) ==
PROVIDERS: PCP Family Medicine; Visit Provider Nurse Practitioner Family
DX: N20.0 Calculus of kidney (principal)
CPT/HCPCS: 36415; 80051

== ENCOUNTER 2024-08-28 09:19 | Outpatient (OUT) | payer MEDICARE, OTHER, SELFPAY ==
[2024-08-28 09:49] LABS: Anion Gap 18.5; BUN Creatinine Ratio 16.7; Carbon Dioxide 21.9 mmol/L (21.0-32.0); Chloride 111 mmol/L (98-107); Estimated GFR (African America 43 (>=60 mL/min/1.73m^2); Estimated GFR (Non-African Ame 36 (>=60 mL/min/1.73m^2); Glucose 88 mg/dL (74-106); Potassium 4.4 mmol/L (3.5-5.1); Sodium 147 mmol/L (136-145)
== END 2024-08-28 09:20 | disposition home or self-care (01) ==
LOC: LAB 09:20
PROVIDERS: PCP Family Medicine; Visit Provider Nurse Practitioner Family
DX: N20.0 Calculus of kidney (principal); N39.41 Urge incontinence
CPT/HCPCS: 36415; 80048